=== PATIENT | female | born 1965 | race Caucasian/White ===

== ENCOUNTER → 2024-03-27 | Outpatient (REF) | payer MEDICAID, MEDICARE, SELFPAY ==
[2024-03-27 09:06] LABS: Absolute Lymphocyte Count 2.32 X10^3/uL (0.83-4.51); Absolute Neutrophil Count 4.8 X10^3/uL (2.0-7.7); Basophil# 0.04 X10^3/uL; Basophil% 0.5 % (0-1); Eosinophil# 0.13 X10^3/uL; Eosinophils% 1.7 % (0-5); Hematocrit 34.1 % (37-47); Hemoglobin 10.6 g/dL (12.0-15.0); Lymphocyte # 2.32 X10^3/ul (0.83-4.51); Lymphocyte % 29.8 % (19-41); Mean Corp Hgb Conc 31.1 g/dL (32-36); Mean Corpuscular Hgb 28.7 pg (27.0-32.0); Mean Corpuscular Volume 92.4 fL (81-99); Mean Platelet Vol. 9.6 fl (6.2-12.0); Monocyte# 0.49 X10^3/uL; Monocyte% 6.3 % (0-10); NRBC Flagged by Analyzer 0 % (0-5); Neutrophil # 4.77 X10^3/uL (2.7-7.7); Neutrophil % 61.3 % (47-70); Platelet Count 283 K/mm3 (150-450); RBC Distribution Width CV 13.1 % (11.6-14.6); RBC Distribution Width SD 44.1 fl (35.1-43.9); Red Blood Count 3.69 M/mm3 (4.2-5.4); White Blood Count 7.8 K/mm3 (4.4-11.0)
[2024-03-27 09:33] LABS: Anion Gap 4 (5-15); BUN 11 mg/dL (7-18); Calcium,Total 9.6 mg/dL (8.5-10.1); Chloride 107 mmol/L (98-107); Cholesterol 150 mg/dL (200); Creatinine, Serum 0.48 mg/dL (0.55-1.02); EST Glomerular Filtration Rate 141 mL/min (>60); Est Glom Filt Rate - Afr Amer 170 mL/min (>60); Glucose 96 mg/dL (74-106); High Density Lipoprotein 61 mg/dL; Magnesium 2.1 mg/dL (1.6-2.6); Potassium 3.8 mmol/L (3.5-5.1); Sodium Level 141 mmol/L (136-145); Triglycerides 127 mg/dL; Very Low Density Lipoprotein 25 mg/dL (5-40)
[2024-03-27 10:16] LABS: Hemoglobin A1c 5.4 % (3.8-5.6)
== END | disposition home or self-care (01) ==
LOC: OLS.SW 07:20
PROVIDERS: Visit Provider Internal Medicine
DX: H81.09 Meniere's disease, unspecified ear (principal); E03.9 Hypothyroidism, unspecified; I10 Essential (primary) hypertension
CPT/HCPCS: 36415; 80048; 80061; 83036; 83735; 84443; 85025

== ENCOUNTER → 2024-03-28 04:00 | Outpatient (REF) | payer MEDICARE, MEDICAID, SELFPAY ==
[2024-03-28 10:25] LABS: Vitamin B12 290 pg/mL (211-911); Vitamin D,25 Hydroxy 26.4 ng/mL
== END ==
LOC: OLS.SW 04:00
PROVIDERS: Referring Provider Internal Medicine; Visit Provider Internal Medicine
DX: I10 Essential (primary) hypertension (principal)
CPT/HCPCS: 36415; 82306; 82607

== ENCOUNTER → 2024-03-31 | Outpatient (REF) | payer MEDICAID, MEDICARE, SELFPAY ==
[2024-03-31 09:45] LABS: Ferritin 16 ng/mL (8-252); Iron 35 ug/dL (50-170)
== END | disposition home or self-care (01) ==
LOC: OLS.SW 05:00
PROVIDERS: Visit Provider Internal Medicine
DX: I10 Essential (primary) hypertension (principal); E78.5 Hyperlipidemia, unspecified
CPT/HCPCS: 36415; 82728; 83540

== ENCOUNTER → 2024-04-29 | Outpatient (CLI) | payer MEDICAID, MEDICARE, SELFPAY ==
--- NOTE | 2024-04-29 13:00 | MRI_ITS ---
PROCEDURE: SPINE CERVICAL W/WO CONTRAST REASON FOR EXAM: Cervical surgery. Pain. TECHNIQUE: Cervical spine MRI without and with intravenous gadolinium-based contrast. CONTRAST: 15 cc Clariscan COMPARISON: None. FINDINGS: There is anterior cervical spinal fusion from C5-C7 with anterior cervical spinal fusion plate and screws with associated susceptibility artifact. There is severe disc space narrowing with endplate spurring from C3-C5 and moderate disc space narrowing with endplate spurring at C7-T1. There is straightening of the cervical lordosis with mild reversal. There is a linear area of hyperintense T2/STIR signal within the central cervical spinal cord at the level of C6-C7 likely related to cervical myelomalacia. There is atrophy of the paraspinous musculature. No acute fracture or subluxation is present. There is a circumscribed nodule involving the left thyroid lobe measuring 8 mm. Individual levels: C2-3: Mild disc osteophyte complex and facet arthropathy with no significant central canal stenosis or neural foraminal narrowing. C3-4: Disc osteophyte complex results in flattening of the ventral thecal sac with moderate central canal stenosis. Facet/uncovertebral changes are identified with severe bilateral neural foraminal narrowing. C4-5: Disc osteophyte complex results in flattening of the ventral thecal sac with moderate central canal stenosis. Facet/uncovertebral changes are identified with mild bilateral neural foraminal narrowing. C5-6: Postsurgical changes. Mild posterior endplate spurring with mild central canal stenosis. No significant neural foraminal narrowing. C6-7: Postsurgical changes. No disc herniation, central canal stenosis, or significant neural foraminal narrowing. C7-T1: Mild disc osteophyte complex with no significant central canal stenosis. Mild bilateral neural foraminal narrowing is present. Postcontrast images: No suspicious contrast enhancement. MRI/Spine Cervical W/WO Contrast IMPRESSION: 1. Postsurgical changes from anterior cervical spinal fusion from C5-C7 with as sociated susceptibility artifact. There is mild central canal stenosis at C5-C6. 2. Multilevel degenerative disc disease and spondylosis with moderate central c anal stenosis from C3-C5 and varying degrees of neural foraminal narrowing which is on a severe basis at C3-C4. 3. Linear hyperintense signal within the central spinal cord at the level of C6 -C7 likely relates to cervical myelomalacia. 4. Nodule involving the left thyroid lobe measuring 8 mm. Recommend thyroid ult rasound on an outpatient basis. Reading Location: [facility]
--- NOTE | 2024-04-29 13:00 | MRI_ITS ---
PROCEDURE: MRA NECK WITHOUT CONTRAST REASON FOR EXAM: Memory loss; slurred speech. TECHNIQUE: Neck MRA using 2D and 3D Time of Flight technique and with intravenous gadolinium-based contrast. COMPARISON: None. FINDINGS: Flow: 2D Time of Flight images demonstrate antegrade carotid and vertebral artery flow. Carotids: The bilateral common carotid arteries are widely patent. Atherosclerosis of the bilateral internal carotid arteries. Right ICA stenosis (NASCET): 50 % Left ICA stenosis (NASCET): 75 % Vertebrals: No signal within the left vertebral artery which may represent occlusion. Normal right vertebral artery. Arch: Not fully visualized. MRI/MRA Neck without Contrast IMPRESSION: No signal within the left vertebral artery which may represent occlusion of unc lear chronicity. Atherosclerosis of the bilateral internal carotid arteries. Details above. Reading Location: [id number]
== END | disposition home or self-care (01) ==
PROVIDERS: PCP Internal Medicine
DX: C71.9 Malignant neoplasm of brain, unspecified (principal); R41.89 Other symptoms and signs involving cognitive functions and awareness; I65.29 Occlusion and stenosis of unspecified carotid artery; M84.48XA Pathological fracture, other site, initial encounter for fracture; Z91.041 Radiographic dye allergy status
CPT/HCPCS: 70547; 72156; A9575

== ENCOUNTER → 2024-08-07 05:00 | Outpatient (REF) | payer MEDICARE, MEDICAID, SELFPAY ==
[2024-08-07 08:22] LABS: Absolute Lymphocyte Count 2.33 X10^3/uL (0.83-4.51); Absolute Neutrophil Count 7.3 X10^3/uL (2.0-7.7); Basophil# 0.07 X10^3/uL; Basophil% 0.7 % (0-1); Eosinophil# 0.23 X10^3/uL; Eosinophils% 2.2 % (0-5); Hematocrit 35.3 % (37-47); Lymphocyte # 2.33 X10^3/ul (0.83-4.51); Mean Corp Hgb Conc 31.2 g/dL (32-36); Mean Corpuscular Volume 93.1 fL (81-99); Mean Platelet Vol. 9.6 fl (6.2-12.0); Monocyte# 0.66 X10^3/uL; Monocyte% 6.2 % (0-10); NRBC Flagged by Analyzer 0 % (0-5); Neutrophil # 7.25 X10^3/uL (2.7-7.7); Neutrophil % 68.6 % (47-70); Platelet Count 319 K/mm3 (150-450); RBC Distribution Width CV 13.1 % (11.6-14.6); RBC Distribution Width SD 44.4 fl (35.1-43.9); Red Blood Count 3.79 M/mm3 (4.2-5.4); White Blood Count 10.6 K/mm3 (4.4-11.0)
== END ==
LOC: OLS.SW 05:00
PROVIDERS: PCP Internal Medicine; Visit Provider Internal Medicine
DX: R41.0 Disorientation, unspecified (principal); I69.30 Unspecified sequelae of cerebral infarction; M54.2 Cervicalgia
CPT/HCPCS: 36415; 85025

== ENCOUNTER → 2024-08-08 | Outpatient (REF) | payer MEDICARE, MEDICAID, SELFPAY ==
[2024-08-08 07:45] LABS: Mucous, Urine 0 SEEN /hpf (<or=2+)
[2024-08-08 08:03] LABS: Color, Urine Yellow (Yellow); Glucose, Dipstick Normal (Normal); Ketone-Dipstick Negative (Negative); Leukocyte Esterase-Dipstick 500 /ul (Negative); Nitrite-Dipstick Negative (Negative); Occult Blood-Urine 150 /ul (Negative); Protein-Dipstick 100 mg/dl (Negative); Urine Bilirubin Dipstick Negative (Negative); Urine Clarity Turbid (Clear); Urine Urobilinogen Normal (Normal)
[2024-08-08 08:10] LABS: White Blood Cells >100 SEEN /hpf (0-5)
[2024-08-08 08:11] LABS: Bacteria 3+ /hpf (None Seen); Red Blood Cells-Urine 0-5 SEEN /hpf (0-5); Squamous Epithelial Cells - UA 0-5 SEEN /hpf (5-10)
== END ==
LOC: OLS.SW 05:00
PROVIDERS: PCP Internal Medicine; Visit Provider Family Medicine
DX: R32 Unspecified urinary incontinence (principal); R33.9 Retention of urine, unspecified
CPT/HCPCS: 81001; 87077; 87086; 87088; 87186

== ENCOUNTER → 2024-08-13 | Outpatient (REF) | payer MEDICARE, MEDICAID, SELFPAY ==
[2024-08-13 07:41] LABS: ALB/GLOB Ratio 1.2 RATIO (0.9-2.4); AST(SGOT) 14 U/L (<=31); Alanine Aminotransfer ALT/SGPT < 5 U/L (<=34); Albumin, Serum 3.3 g/dL (3.4-4.8); Alkaline Phosphatase 102 U/L (35-104); Anion Gap 9 (5-15); BUN 16 mg/dL (4-19); BUN/Creat Ratio 28.6 RATIO (10-20); Calcium,Total 9.8 mg/dL (7.6-11.0); Carbon Dioxide 26.6 mmol/L (21.0-32.0); Chloride 106 mmol/L (98-108); Creatinine, Serum 0.57 mg/dL (0.70-1.20); EST Glomerular Filtration Rate 104 (>60); Globulin 2.7 g/dL (2.2-4.2); Glucose 89 mg/dL (70-99); Potassium 3.7 mmol/L (3.3-5.1); Sodium Level 142 mmol/L (133-145); Total Bilirubin 0.17 mg/dL (0.00-1.30)
== END ==
LOC: OLS.SW 04:00
PROVIDERS: PCP Internal Medicine; Referring Provider Family Medicine; Visit Provider Family Medicine
DX: R33.9 Retention of urine, unspecified (principal); E53.8 Deficiency of other specified B group vitamins; M81.0 Age-related osteoporosis without current pathological fracture
CPT/HCPCS: 36415; 80053

== ENCOUNTER → 2024-08-19 05:00 | Outpatient (REF) | payer MEDICARE, MEDICAID, SELFPAY ==
[2024-08-19 07:36] LABS: Ammonia 32.6 umol/L (11-51)
== END ==
LOC: OLS.SW 05:00
PROVIDERS: PCP Internal Medicine; Visit Provider Family Medicine
DX: R41.0 Disorientation, unspecified (principal)
CPT/HCPCS: 36415; 82140

== ENCOUNTER → 2024-11-18 | Outpatient (REF) | payer MEDICARE, MEDICAID, SELFPAY ==
--- OUTSIDE RECORDS SUMMARY | 2024-11-18 04:13 | XMS RPT_ITS | CCD ---
Author Organization [facility] Care Team Providers Care Insurance Follow Up Representative Name Role Phone Sheets DOLeela Primary Care Provider [phone] SHEETSLEELA Primary Care Unavailable FERNANDO NIETO Referring Unavailable SHEETS, LEELA Mcclain Primary Care Unavailable FERNANDO NIETO Referring Unavailable Sheets DO, Leela Mcclain Primary Care Provider SHEETS, LEELA Mcclain Primary Care Unavailable SETH PILLAI Attending Unavailable SHEETS, LEELA Mcclain Attending Unavailable SHEETS, LEELA Mcclain Primary Care Unavailable SHEETS, LEELA Mcclain Attending Unavailable SHEETS, LEELA C Primary Care Unavailable FERNANDO NIETO Referring Unavailable SHEETS, LEELA C Primary Care Unavailable SHEETS, LEELA C Attending Unavailable SHEETS, LEELA C Primary Care Unavailable SHEETS, LEELA C Attending Unavailable SHEETS, LEELA C Primary Care Unavailable Sheets DO, Leela Mcclain Primary Care Provider Unavailable Primary Care Provider Unavailabl e Sheets DO, Leela Mcclain Primary Care Provider Dr. Josi Garcia MD Attending Provider Dr. Josi Zamora MD Referring Provider UnavailDr. Josi Harrell MD Primary Care Provider Unava ilable MINI DUFFY Attending Provider MINI DUFFY Referring Provider Jose WINTERS, Dr. Prater Attending Provider Unavailjoey Cantor MD, Dr. Floyd Attending Provider Unavail carmencita Cantor MD, Dr. Floyd Referring Provider Unavail able Everett Garcia Attending Unavailable Josi Garcia Primary Care Unavailable Josi Crawford Attending Unavailable Gudla, Josi Primary Care Unavailable KYLER, KAREN Attending Unavailable KYLER, KAREN Referring Unavailable Gudla OLS, Josi Attending Unavailable Gudla OLS, Josi Referring Unavailable KYLER, KAREN Referring Unavailable Gudla, Josi Primary Care Unavailable KYLER, KAREN Attending Unavailable Gudla OLS, Josi Attending Unavailable Gudla KUSH, Josi Attending Unavailable Everett Garcia Attending Unavailable Gudla, Josi Primary Care Unavailable Everett Garcia Attending Unavailable Everett Garcia Referring Unavailable Gudla, Josi Primary Care Unavailable DIOR ANGUIANO Attending Unavailable SPEARS-DUFFY, MINI Referring Unavaila ble SELF Referring Unavailable SPEARS-DUFFY, MINI Attending Unavaila ble SHEETSLEELA Primary Care Unavailable SPEARS-DUFFY, MINI Referring Unavaila ble SPEARS-DUFFY, MINI Referring Unavaila ble SPEARS-DUFFY, MINI Referring Unavaila ble SPEARS-DUFFY, MINI Referring Unavaila ble SPEARS-DUFFY, MINI Attending Unavaila ble SPEARS-DUFFY, MINI Attending Unavaila ble SHEETSLEELA Primary Care Unavailable SPEARS-DUFFY, MINI Referring Unavaila ble SPEARS-DUFFY, MINI Referring Unavaila ble SHEETSLEELA Primary Care Unavailable BINDU BURT Attending Unavailable SHEETSLEELA Primary Care Unavailable SPEARS-DUFFY, MINI Attending Unavaila ble SHEETSLEELA Primary Care Unavailable SPEARS-DUFFY, MINI Referring Unavaila ble LILLIE HORTON Attending Unavailable SPEARS-DUFFY, MINI Attending Unavaila ble SPEARS-DUFFY, MINI Referring Unavaila ble SPEARS-DUFFY, MINI Referring Unavaila ble SPEARS-DUFFY, MINI Attending Unavaila ble SPEARS-DUFFY, MINI Referring Unavaila ble Allergies Allergy Classification Reported Allergen(s) Allergy Type Date of Onset Reaction(s) Facility (20 sources) Latex; Translations: [LATEX] Drug Allergy 11-05-2015 Other: See Comments [facility] (20 sources) Methadone; Translations: [METHADONE] Drug Allergy 11-05-2015 Unknown [facility] (20 sources) Naproxen; Translations: [NAPROXEN] Drug Allergy 11-05-2015 Hives, Itching [facility] (20 sources) Iodinated Contrast Media; Translations: [IODINATED CONTRAST MEDIA] Drug Allergy 11-05-2015 Other: See Comments [facility] Medications Current Medications Medication Drug Class(es) Dates Sig (Normalized) Sig (Original) acetaminophen 650 mg rectal suppository (5 sources) take 650 mg rectal route every four hours as needed acetaminophen (TYLENOL) 650 mg suppository 650 mg by RECTAL route every 4 hours as needed. Active 120 actuat albuterol 0.1 mg/actuat / ipratropium bromide 0.02 mg/actuat inhalation spray (20 sources) Anticholinergic, beta2-Adrenergic Agonist take 20-100 ug by inhalation every six hours as needed ipratropium 20 mcg-albuterol 100 mcg (COMBIVENT RESPIMAT) 20-100 mcg/actuation inhaler Inhale 1 Puff as instructed every 6 hours as needed for wheezing/shortness of breath. Active aspirin 81 mg chewable tablet (20 sources) Platelet Aggregation Inhibitor, Nonsteroidal Anti-inflammatory Drug Start: 11-16-2016 take 1 tablet by mouth once daily aspirin 81 mg chewable tablet Take 1 tablet by mouth once daily. 90 tablet 3 11/16/2016 Active Comment on above: Take 1 tablet by juve once daily. atorvastatin 20 mg oral tablet (20 sources) HMG-CoA Reductase Inhibitor Start: 04-08-2021 End: 07-13-2022 take 1 tablet by mouth once daily atorvastatin (LIPITOR) 20 mg tablet Indications: Pure hypercholesterolemia Take 1 tablet by mouth once daily. 90 tablet 07/13/2022 Active Comment on above: Take 1 tablet by juve th once daily. carvedilol 3.125 mg oral tablet (20 sources) alpha-Adrenergic Angelica, beta-Adrenergic Angelica Start: 08-15-2021 End: 02-14-2022 take 1 tablet by mouth twice daily at mealtime carvedilol (COREG) 3.125 mg tablet Indications: Essential hypertension Take 1 tablet by mouth twice daily with meals. 180 tablet 1 02/14/2022 Active Start: 01-31-2021 take 1 tablet by juve th twice daily at mealtime carvedilol (COREG) 3.125 mg tablet Indications: Essential hypertension Take 1 tablet by mouth twice daily with meals. 180 tablet 1 01/31/2021 Active Comment on above: Take 1 tablet by juve th twice daily with meals. cholecalciferol, vitamin D3, (VITAMIN D3 PO) (5 sources) take 2000 [IU] by mouth once daily cholecalciferol, vitamin D3, (VITAMIN D3 PO) Take 2,000 Units by mouth once daily. Active cranberry fruit (CRANBERRY) 450 mg tab (20 sources) take 1 tablet by mouth once daily cranberry fruit (CRANBERRY) 450 mg tab Take 1 tablet by mouth once daily. Active diclofenac sodium 0.01 mg/mg topical gel (5 sources) Nonsteroidal Anti-inflammatory Drug apply 1 g topically four times daily diclofenac (VOLTAREN) 1 % topical gel Apply 1 g to affected area four times daily. Active ferrous sulfate 325 mg delayed release oral tablet (5 sources) take 1 tablet by mouth once daily ferrous sulfate 325 mg (65 mg iron) EC tablet Take 325 mg by mouth once daily. Active iv contrast (will be provided with radiology test) (12 sources) Start: End: inject 1 dose intravenously once iv contrast (will be provided with radiology test) Indications: Glioblastoma (HCC) MRI Brain Inject, intravenously, once for 1 dose.No IV access, insert saline lock prior to beginning of sedation, infusion, injection of imaging exam.Discontinue saline lock post exam. If Pt. has a central line or IVAD, may access for administration according to line specific nursing protocol.Once exam is complete flush line and de-access according to line specific nursing protocol in the MR contrast administration guidelines link 1 each 11/10/2024 11/11/2024 Active Start: 11-05-2024 End: 11-06-2024 inject 1 dose intravenously once iv contrast (will be provided with radiology test) MRI Brain Inject, intravenously, once for 1 dose.No IV access, insert saline lock prior to beginning of sedation, infusion, injection of imaging exam.Discontinue saline lock post exam. If Pt. has a central line or IVAD, may access for administration according to line specific nursing protocol.Once exam is complete flush line and de-access according to line specific nursing protocol in the MR contrast administration guidelines link 1 each 11/05/2024 11/06/2024 Start: 11-05-2024 End: 11-06-2024 inject 1 dose intravenously once iv contrast (will be provided with radiology test) MRI Brain Inject, intravenously, once for 1 dose.No IV access, insert saline lock prior to beginning of sedation, infusion, injection of imaging exam.Discontinue saline lock post exam. If Pt. has a central line or IVAD, may access for administration according to line specific nursing protocol.Once exam is complete flush line and de-access according to line specific nursing protocol in the MR contrast administration guidelines link 1 each 11/05/2024 11/06/2024 Active Start: 08-05-2024 End: 08-06-2024 inject 1 dose intravenously once iv contrast (will be provided with radiology test) Indications: Astrocytoma brain tumor (HCC) MRI Brain Inject, intravenously, once for 1 dose.No IV access, insert saline lock prior to beginning of sedation, infusion, injection of imaging exam.Discontinue saline lock post exam. If Pt. has a central line or IVAD, may access for administration according to line specific nursing protocol.Once exam is complete flush line and de-access according to line specific nursing protocol in the MR contrast administration guidelines link 1 each 08/05/2024 08/06/2024 Active Start: 05-28-2024 End: 05-29-2024 inject 1 dose intravenously once iv contrast (will be provided with radiology test) Indications: Anaplastic astrocytoma (HCC) MRI Brain Inject, intravenously, once for 1 dose.No IV access, insert saline lock prior to beginning of sedation, infusion, injection of imaging exam.Discontinue saline lock post exam. If Pt. has a central line or IVAD, may access for administration according to line specific nursing protocol.Once exam is complete flush line and de-access according to line specific nursing protocol in the MR contrast administration guidelines link 1 Each 05/28/2024 05/29/2024 Active Start: 03-04-2024 End: 03-05-2024 inject 1 dose intravenously once iv contrast (will be provided with radiology test) MRI Brain Inject, intravenously, once for 1 dose.No IV access, insert saline lock prior to beginning of sedation, infusion, injection of imaging exam.Discontinue saline lock post exam. If Pt. has a central line or IVAD, may access for administration according to line specific nursing protocol.Once exam is complete flush line and de-access according to line specific nursing protocol in the MR contrast administration guidelines link 1 Each 03/04/2024 03/05/2024 Active Start: 03-04-2024 End: 03-05-2024 iv contrast (will be provide d with radiology test) Indications: Allergy to intravenous contrast media , Anaplastic astrocytoma (HCC) , Mild cognitive impairment , Cognitive decline , Occlusion and stenosis of unspecified carotid artery , Pathological fracture, other site, initial encounter for fracture MRI CSP Inject, intravenously, once for 1 dose. No IV access, insert saline lock prior to the beginning of sedation, infusion, injection of imaging exam. Discontinue saline lock post exam. If Pt. has a central line or IVAD, may access for administration according to line specific nursing protocol. Once exam is complete flush line and de-access according to line specific nursing protocol in the MR contrast administration guidelines link. 1 Each 03/04/2024 03/05/2024 Active Start: 01-23-2024 End: 01-24-2024 inject 1 dose intravenously once iv contrast (will be provided with radiology test) Indications: Astrocytoma (HCC) MRI Brain Inject, intravenously, once for 1 dose.No IV access, insert saline lock prior to beginning of sedation, infusion, injection of imaging exam.Discontinue saline lock post exam. If Pt. has a central line or IVAD, may access for administration according to line specific nursing protocol.Once exam is complete flush line and de-access according to line specific nursing protocol in the MR contrast administration guidelines link 1 Each 01/23/2024 01/24/2024 Active linaclotide 0.072 mg oral capsule (20 sources) Guanylate Cyclase-C Agonist Start: 02-23-2022 take 1 capsule by mouth once daily LINZESS 72 mcg capsule Take 1 capsule by mouth once daily. 02/23/2022 Active Comment on above: Take 1 capsule by [facility] once daily. melatonin 5 mg oral tablet (20 sources) take 1 tablet by mouth once daily at bedtime melatonin 5 mg tablet Take 1 tablet by mouth daily at bedtime. Active methocarbamol 750 mg oral tablet (20 sources) Muscle Relaxant Start: 11-06-2024 End: 05-05-2025 take 1 tablet by mouth three times daily methocarbamol (ROBAXIN) 750 mg tablet Take 1 tablet by mouth three times a day. 90 tablet 5 11/06/2024 05/05/2025 Active End: 11-06-2024 take 1 tablet by mouth every eight hours as needed methocarbamol (ROBAXIN) 500 mg tablet Take 1 tablet by mouth three times a day as needed. 11/06/2024 Discontinued omeprazole 40 mg delayed release oral capsule (20 sources) Proton Pump Inhibitor Start: 05-10-2021 End: 05-22-2022 take 1 capsule by mouth once daily omeprazole (PRILOSEC) 40 mg capsule Indications: Heartburn Take 1 capsule by mouth once daily. 90 capsule 1 05/22/2022 Active Comment on above: Take 1 capsule by [facility] once daily. riboflavin 400 mg oral tablet (5 sources) Start: 11-05-2024 take 1 tablet by mouth once daily riboflavin, vitamin B2, 400 mg tab Take 1 tablet by mouth once daily. 30 tablet 2 11/05/2024 Active sertraline 50 mg oral tablet (20 sources) Serotonin Reuptake Inhibitor Start: 01-02-2024 take 1 tablet by mouth once daily sertraline (ZOLOFT) 50 mg tablet Take 1 tablet by mouth once daily. 01/02/2024 Active Start: [facility]-01-[facility]24 [facility] (Z[facility]OFT) 25 mg tablet Take 1 tablet by mouth once daily. 01/01/2024 Active traMADol hydrochloride 50 mg oral tablet (20 sources) Opioid Agonist Start: 01-24-2024 End: 07-22-2024 take 1 tablet by mouth twice daily traMADol (ULTRAM) 50 mg tablet Indications: Chronic cervical pain Take 1 tablet by mouth two times a day for 180 days. 60 tablet 5 01/24/2024 07/22/2024 Active Start: 11-14-2021 End: 01-20-2024 take 1 tablet by mouth twice daily traMADol (ULTRAM) 50 mg tablet Indications: Osteoarthritis of multiple joints, unspecified osteoarthritis type , Chronic neck pain Take 1 tablet by mouth two times a day for 180 days. 60 tablet 5 07/24/2023 01/20/2024 Start: 06-09-2021 End: 11-11-2021 take 1 tablet by mouth twice daily traMADol (ULTRAM) 50 mg tablet Indications: Osteoarthritis of multiple joints, unspecified osteoarthritis type , Chronic neck pain Take 1 tablet by mouth twice daily for 30 days. 60 tablet 0 10/11/2021 11/11/2021 Discontinued Comment on above: Take 1 tablet by juve twice daily for 30 days. Take 1 tablet by juve twice daily for 180 days. Take 1 tablet by juve two times a day for 180 days. vitamin b12 1 mg oral capsule (5 sources) Vitamin B12 take 1 capsule by mouth once daily cyanocobalamin, vitamin B-12, 1,000 mcg cap Take 1,000 mg by mouth once daily. Active Completed/Discontinued Medications Medication Drug Class(es) Dates Sig (Normalized) Sig (Original) dicyclomine hydrochloride 20 mg oral tablet (20 sources) Anticholinergic Start: 2 End: 5 take 1 tablet by mouth at mealtime dicyclomine (BENTYL) 20 mg tablet Take 1 tablet by mouth w MEALS. 02/23/2022 11/06/2024 Discontinued (Discontinued by another Health Care Provider) Comment on above: Take 1 tablet by juve w MEALS. diphenhydrAMINE hydrochloride 50 mg oral tablet (20 sources) Histamine-1 Receptor Antagonist Start: 4 End: 5 take 1 tablet intravenously every hour diphenhydrAMINE HCL 50 mg tablet Indications: Allergy to intravenous contrast media , Anaplastic astrocytoma (HCC) , Mild cognitive impairment , Cognitive decline Medication, to prevent allergic reaction, to MR contrast (gadolinium]. Take 50 mg, 1 (ONE) hour prior to MRI 5 tablet 11 05/10/2024 11/06/2024 Discontinued (Discontinued by another Health Care Provider) estradiol 0.1 mg/ml vaginal cream (20 sources) Estrogen Start: 7 End: 3 ESTRACE 0.01 % (0.1 mg/gram) vaginal cream Indications: Atrophic vaginitis Use 1 g vaginally twice a week. 1 Tube 3 08/11/2016 04/12/2022 Discontinued Comment on above: Use 1 g vaginally tw ice a week. estrogens, conjugated (shelter) 0.625 mg/ml vaginal cream (20 sources) Estrogen Start: 3 End: 5 conjugated estrogens (PREMARIN) vaginal cream Indications: Atrophic vaginitis Use 0.5 g vaginally two times a week. 30 g 2 04/12/2022 11/06/2024 Discontinued (Discontinued by another Health Care Provider) Comment on above: Use 0.5 g vaginally two times a week. 24 hr mirabegron 50 mg extended release oral tablet (20 sources) beta3-Adrenergic Agonist Start: End: take 1 tablet by mouth once daily mirabegron (MYRBETRIQ) 50 mg Tb24 Indications: Overactive bladder Take 1 tablet by mouth once daily. 90 tablet 3 04/12/2022 11/06/2024 Discontinued (Discontinued by another Health Care Provider) Start: 03-21-2021 End: 04-12-2022 take 1 tablet by mouth once daily mirabegron (MYRBETRIQ) 25 mg Tb24 Indications: Overactive bladder Take 1 tablet by mouth once daily. 90 tablet 1 12/29/2021 04/12/2022 Discontinued Comment on above: Take 1 tablet by [facility] once daily. Multivitamin capsule (20 sources) End: 11-06-2024 take 1 capsule by mouth once daily Multivitamin capsule Take 1 capsule by mouth once daily. 11/06/2024 Discontinued (Discontinued by another Health Care Provider) take 1 capsule by mouth once michell ly Multivitamin capsule Take 1 capsule by mouth once daily. Active take 1 capsule by mouth once michell ly Multivitamin capsule Take 1 capsule by mouth once daily. 0 Active Comment on above: Take 1 capsule by [facility] once daily. nitrofurantoin, macrocrystals 25 mg / nitrofurantoin, monohydrate 75 mg oral capsule (3 sources) Nitrofuran Antibacterial Start: End: take 1 capsule by mouth twice daily nitrofurantoin monohydrate and macrocrystal (MACROBID) 100 mg capsule Take 1 capsule by mouth twice daily for 7 days. 14 capsule 0 03/20/2022 03/27/2022 Comment on above: Take 1 capsule by [facility] twice daily for 7 days. ondansetron 4 mg disintegrating oral tablet (20 sources) Serotonin-3 Receptor Antagonist Start: End: ondansetron orally disintegrating (ZOFRAN ODT) 4 mg disintegrating tablet Take 1 tablet by mouth as needed. 02/23/2022 11/06/2024 Discontinued (Discontinued by another Health Care Provider) Comment on above: Take 1 tablet by juve as needed. oxyCODONE hydrochloride 5 mg oral tablet (14 sources) Opioid Agonist Start: End: take 1 tablet by mouth twice daily as needed oxyCODONE IR (ROXICODONE) 5 mg immediate release tablet Indications: Chronic cervical pain Take 0.5-1 tablets by mouth twice daily as needed for pain. 60 tablet 0 05/25/2022 08/28/2022 Discontinued (Course of therapy completed) Comment on above: Take 0.5-1 tablets b y mouth twice daily as needed for pain. predniSONE 50 mg oral tablet (20 sources) Start: End: predniSONE (DELTASONE) 50 mg Indications: Allergy to intravenous contrast media , Anaplastic astrocytoma (HCC) , Mild cognitive impairment , Cognitive decline Take this medication, every 6 hours, for 3 doses for prevention of contrast MR (gadolinium] allergy. Take 50 mg, 13 hours, then 7 hours, then 1 hour, prior to the MRI 3 tablet 11 05/10/2024 11/06/2024 Discontinued (Discontinued by another Health Care Provider) Problems Active Problems Problem Classification Problem Date Documented Da te Episodic/Chronic Acute cerebrovascular disease (5 sources) Cerebral infarction; Translations: [Cerebral infarction due to unspecified occlusion or stenosis of left middle cerebral artery] 05-10-2024 Chronic Adjustment disorders (20 sources) Grief finding; Translations: [Adjustment disorder with depressed mood] Onset: 05-25-2022 05-25-2022 Chronic Cancer of brain and nervous system (20 sources) Anaplastic astrocytoma of central nervous system; Translations: [Malignant neoplasm of brain, unspecified] Onset: 02-28-2024 01-21-2024 Chronic Conditions associated with dizziness or vertigo (1 source) Meniere's disease, unspecified ear; Translations: [Meniere's disease, unspecified ear] Onset: 04-21-2024 Chronic Deficiency and other anemia (1 source) Vitamin B12 deficiency anemia, unspecified; Translations: [Vitamin B12 deficiency anemia, unspecified] Onset: 08-27-2024 Episodic Diseases of white blood cells (1 source) Leukocytosis; Translations: [Elevated white blood cell count, unspecified] 11-06-2023 Chronic Disorders of lipid metabolism (20 sources) Dyslipidemia; Translations: [Hyperlipidemia, unspecified] Onset: 05-05-2024 12-21-2015 Chronic E Codes: Fall (2 sources) Fall; Translations: [Unspecified fall, initial encounter] 01-14-2024 Episodic Essential hypertension (20 sources) Essential hypertension; Translations: [Essential (primary) hypertension] Onset: 12-21-2015 12-21-2015 Chronic Genitourinary congenital anomalies (20 sources) Pelvic kidney; 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] Onset: 03-21-2022 03-21-2022 Chronic Genitourinary symptoms and ill-defined conditions (20 sources) Mixed urinary incontinence; Translations: [Mixed incontinence] Onset: 08-27-2024 12-21-2015 Chronic Genitourinary symptoms and ill-defined conditions (6 sources) Retention of urine; Translations: [Retention of urine, unspecified] Onset: 03-20-2022 Episodic Immunizations and screening for infectious disease (2 sources) Patient encounter status; Translations: [Encounter for immunization] Onset: 05-25-2022 Episodic Late effects of cerebrovascular disease (1 source) Unspecified sequelae of cerebral infarction; Translations: [Unspecified sequelae of cerebral infarction] Onset: 08-27-2024 Chronic Menopausal disorders (1 source) Atrophic vaginitis; Translations: [Postmenopausal atrophic vaginitis] Chronic Mycoses (2 sources) Pain in toe; Translations: [Tinea unguium] Episodic Neoplasms of unspecified nature or uncertain behavior (1 source) Neoplasm of brain; Translations: [Neoplasm of unspecified behavior of brain] 05-07-2024 Chronic Occlusion or stenosis of precerebral arteries (10 sources) Carotid artery occlusion; Translations: [Occlusion and stenosis of unspecified carotid artery] Onset: 05-26-2024 03-04-2024 Chronic Osteoarthritis (20 sources) Osteoarthritis of multiple joints ; Translations: [Polyosteoarthritis, unspecified] Onset: 03-22-2021 03-22-2021 Chronic Other aftercare (7 sources) Long-term current use of aspirin; 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] Episodic Other circulatory disease (1 source) History of cerebrovascular accident; Translations: [Personal history of transient ischemic attack (TIA), and cerebral infarction without residual deficits] 11-06-2024 Episodic Other connective tissue disease (2 sources) Muscle spasticity present; Translations: [Other muscle spasm] 06-18-2024 Episodic Other connective tissue disease (7 sources) Spasticity; Translations: [Cramp and spasm] 08-02-2024 Episodic Other connective tissue disease (1 source) Cramp and spasm; Translations: [Spasticity] Onset: 11-06-2024 Episodic Other diseases of bladder and urethra (4 sources) Overactive bladder; Translations: [Overactive bladder] Chronic Other gastrointestinal disorders (20 sources) Constipation; Translations: [Constipation, unspecified] 12-21-2015 Episodic Other gastrointestinal disorders (2 sources) Heartburn; Translations: [Heartburn] Episodic Other hereditary and degenerative nervous system conditions (9 sources) Impaired cognition; Translations: [Mild cognitive impairment, so stated] 01-21-2024 Chronic Other hereditary and degenerative nervous system conditions (1 source) Mild cognitive impairment, so stated; Translations: [Mild cognitive impairment] Onset: 05-26-2024 Chronic Other nervous system disorders (3 sources) Other chronic pain; Translations: [Chronic cervical pain] Onset: 02-24-2022 Chronic Other nervous system disorders (1 source) Lesion of brain; Translations: [Disorder of brain, unspecified] 01-08-2024 Chronic Other nervous system disorders (20 sources) Abnormal gait; Translations: [Unspecified abnormalities of gait and mobility] 12-21-2015 Episodic Other nervous system disorders (20 sources) Impaired cognition; Translations: [Other symptoms and signs involving cognitive functions and awareness] 01-21-2024 Episodic Other non-traumatic joint disorders (20 sources) Multiple joint pain; Translations: [Pain in unspecified joint] 12-21-2015 Episodic Other non-traumatic joint disorders (2 sources) Hip pain; Translations: [Pain in left hip] 08-28-2023 Episodic Other nutritional; endocrine; and metabolic disorders (4 sources) Obese class I; Translations: [Obesity, unspecified] Onset: 05-07-2018 05-07-2018 Chronic Other skin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 unchanged confluent T2/FLAIR hyperintensity in the right greater left frontal lobes as well as the genu of the corpus callosum. There is no abnormal enhancement in the resection cavity or elsewhere in the brain. There is no mass effect, midline shift or herniation. No elevated cerebral blood volume on the perfusion sequence to suggest neovascularity. Chronic Change: Scattered punctate foci of increased T2 and FLAIR signal are noted in the supratentorial white matter which is a nonspecific finding, but likely represents minimal chronic microvascular ischemia. There is unchanged small focal encephalomalacia in the dorsal left thalamus, likely sequelae of prior infarction. Parenchyma: No significant volume loss for age. The brain parenchyma is otherwise within normal limits of signal intensity and morphology. Ventricles: There is ex vacuo dilation of the frontal horns of the lateral ventricles. Otherwise unchanged caliber and morphology. Skull Base: Hypothalamic and pituitary region are grossly normal. Craniocervical junction is normal. No significant marrow replacement process. Vasculature: Major intracranial arterial structures, and dural venous sinuses show typical flow void, suggesting patency by spin echo criteria. Other: The visualized paranasal sinuses and mastoid air cells are clear. The orbits and extracranial soft tissues are unremarkable. IMPRESSION: No evidence of new or progressive disease. Laundry Aide: MAGUI Transcribe Date/Time: Nov 04 2024 9:55A Dictated by : MICHELLE RAYMOND MD This examination was interpreted and the report reviewed and electronically signed by: MICHELLE RAYMOND MD on Nov 04 2024 10:08AM EST [id number] Normal [facility] 10-28-2024 CNPN Telephone (NSCAMN) DIOR CARVAJAL ([id number]) 1965 F Date Time Provider Department 10/28/24 [facility] During your visit today, we recorded the following information about you: Marc Pina, RN 10/28/2024 11:09 AM Signed Called patient's facility, [facility], [place], to review upcoming MRI appointments. Spoke with patient's nurse and informed her of MRI appt and follow up appointment with Dr. Spaers next week. Also discussed need for pre-MRI meds, prednisone and benadryl. She will let their provider know. Office number provided in case they have questions. 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 Take 50 mg, 13 hours, then 7 hours, then 1 hour, prior to the MRI - diphenhydrAMINE HCL 50 mg tablet Medication, to prevent allergic reaction, to MR contrast (gadolinium]. Take 50 mg, 1 (ONE) hour prior to MRI - sertraline (ZOLOFT) 50 mg tablet Take 1 tablet by mouth once daily. - sertraline (ZOLOFT) 25 mg tablet Take 1 tablet by mouth once daily. - cranberry fruit (CRANBERRY) 450 mg tab Take 1 tablet by mouth once daily. - melatonin 5 mg tablet Take 1 tablet by mouth daily at bedtime. - methocarbamol (ROBAXIN) 500 mg tablet Take 1 tablet by mouth three times a day as needed. - ipratropium 20 mcg-albuterol 100 mcg (COMBIVENT RESPIMAT) 20-100 mcg/actuation inhaler Inhale 1 Puff as instructed every 6 hours as needed for wheezing/shortness of breath. - atorvastatin (LIPITOR) 20 mg tablet Take 1 tablet by mouth once daily. - omeprazole (PRILOSEC) 40 mg capsule Take 1 capsule by mouth once daily. - mirabegron (MYRBETRIQ) 50 mg Tb24 Take 1 tablet by mouth once daily. - conjugated estrogens (PREMARIN) vaginal cream Use 0.5 g vaginally two times a week. - LINZESS 72 mcg capsule Take 1 capsule by mouth once daily. - dicyclomine (BENTYL) 20 mg tablet Take 1 tablet by mouth w MEALS. - ondansetron orally disintegrating (ZOFRAN ODT) 4 mg disintegrating tablet Take 1 tablet by mouth as needed. - carvedilol (COREG) 3.125 mg tablet Take 1 tablet by mouth twice daily with meals. - Multivitamin capsule Take 1 capsule by mouth once daily. - aspirin 81 mg chewable tablet Take 1 tablet by mouth once daily. 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, [address] Venous blood ammonia measure mentOrdered By: Everett Cantor on 08-19-2024 Ammonia (P) [Moles/Vol] 32.6 umol/L [facility] Anion gap in Serum or Plasma Ordered By: Everett Cantor on 08-13-2024 Anion gap [Moles/Vol] 9 mmol/L 08-07 [facility] BUN/creatinine ratioOrdered By: Everett Cantor on 08-13-2024 Urea nitrogen/Creatinine [Mass ratio] 28.6 mg/mg High 01-12 [facility] Bilirubin, totalOrdered By: Everett Cantor on 08-13-2024 Bilirubin [Mass/Vol] 0.17 mg/dL 0.00-1.30 [facility] Carbon dioxide, total [Moles /volume] in Central venous bloodOrdered By: Everett Cantor on 08-13-2024 CO2 [Moles/Vol] 26.6 mmol/L 21.0-32.0 [facility] Chloride assayOrdered By: Caesar Cantor on 08-13-2024 Chloride [Moles/Vol] 106 mmol/L 98-108 [facility] Comprehensive Metabolic Prof ilon 08-13-2024 Albumin [Mass/Vol] 3.3 g/dL Low 3.4-4.[address] [facility] Comment on above: Order Comment: 510.1 Performed By: #### L 500.4050 #### [facility] [address] [place], [address] Albumin/Globulin [Mass ratio] 1.2 {ratio} Normal 0.9-2.4 [facility] Comment on above: Order Comment: 510.1 Performed By: #### L [id number] #### [facility] [address] [place], [address] ALK PHOS 102 U/L Normal 35-104 [facility] Comment on above: Order Comment: 510.1 Performed By: #### L [id number] #### [facility] [address] [place], [address] ALT [Catalytic activity/Vol] U/L Normal <=34 [facility] Comment on above: Order Comment: 510.1 Performed By: #### L [id number] #### [facility] [address] [place], [address] AST [Catalytic activity/Vol] 14 U/L Normal <=31 [facility] Comment on above: Order Comment: 510.1 Performed By: #### L [id number] #### [facility] [address] [place], [address] Bilirubin [Mass/Vol] 0.17 mg/dL Normal 0.00-1.30 [facility] Comment on above: Order Comment: 510.1 Performed By: #### L [id number] #### [facility] [address] [place], [address] BUN/CRE 28.6 RATIO High 10-20 [facility] Comment on above: Order Comment: 510.1 Performed By: #### L [id number] #### [facility] [address] [place], [address] Calcium [Mass/Vol] 9.8 mg/dL Normal 7.6-11.[address] [facility] Comment on above: Order Comment: 510.1 Performed By: #### L [id number] #### [facility] [address] [place], [address] Chloride [Moles/Vol] 106 mmol/L Normal 98-108 [facility] Comment on above: Order Comment: 510.1 Performed By: #### L [id number] #### [facility] [address] [place], [address] CO2 [Moles/Vol] 26.6 mmol/L Normal 21.0-32.0 [facility] Comment on above: Order Comment: 510.1 Performed By: #### L [id number] #### [facility] [address] [place], [address] Creatinine [Mass/Vol] 0.57 mg/dL Low 0.70-1.20 [facility] Comment on above: Order Comment: 510.1 Performed By: #### L [id number] #### [facility] [address] [place], [address] GAP 9 Normal 5-15 [facility] Comment on above: Order Comment: 510.1 Performed By: #### L [id number] #### [facility] [address] [place], [address] GFR/1.73 sq M.predicted among non-blacks MDRD (S/P/Bld) [Vol rate/Area] 104 mL/min/{1.73_m2} Normal >60 [facility] Comment on above: Order Comment: 510.1 Result Comment: mL/m in/1.73m2 CKD-EPI Creatinine Equation (2020) Performed By: #### L [id number] #### [facility] [address] [place], [address] Globulin (S) [Mass/Vol] 2.7 g/dL Normal 2.2-4.2 [facility] Comment on above: Order Comment: 510.1 Performed By: #### L [id number] #### [facility] [address] [place], [address] Glucose [Mass/Vol] 89 mg/dL Normal 70-[address] [facility] Comment on above: Order Comment: 510.1 Performed By: #### L [id number] #### [facility] [address] [place], [address] Potassium [Moles/Vol] 3.7 mmol/L Normal 3.3-5.1 [facility] Comment on above: Order Comment: 510.1 Performed By: #### L [id number] #### [facility] [address] [place], [address] Sodium [Moles/Vol] 142 mmol/L Normal 133-[address] [facility] Comment on above: Order Comment: 510.1 Performed By: #### L [id number] #### [facility] [address] [place], [address] T PROT 6.0 g/dL Normal 5.9-8.4 [facility] Comment on above: Order Comment: 510.1 Performed By: #### L [id number] #### [facility] [address] [place], [address] Urea nitrogen [Mass/Vol] 16 mg/dL Normal 4-19 [facility] Comment on above: Order Comment: 510.1 Performed By: #### L [id number] #### [facility] [place], [address] Glomerular filtration rate ( GFR) estimation/1.73 sq m using serum, plasma, or whole bOrdered By: Everett Cantor on 08-13-2024 GFR/1.73 sq M.predicted among non-blacks MDRD (S/P/Bld) [Vol rate/Area] 104 mL/min/{1.73_m2} >60 [facility] Comment on above: mL/min/1.73m2 CKD-EP I Creatinine Equation (2020) Laboratory - Chemistry and C hemistry - challengeOrdered By: Everett Cantor on 08-13-2024 AST [Catalytic activity/Vol] 14 U/L <32 [facility] Potassium measurement (mass/ volume)Ordered By: Everett Cantor on 08-13-2024 Potassium (Unsp spec) [Mass/Vol] 3.7 mmol/L 3.3-5.1 [facility] Serum creatinine measurement (mass/volume)Ordered By: Everett Cantor on 08-13-2024 Creatinine [Mass/Vol] 0.57 mg/dL Low 0.70-1.20 [facility] Serum globulin measurementOr dered By: Everett Cantor on 08-13-2024 Globulin (S) [Mass/Vol] 2.7 g/dL 2.2-4.2 [facility] Serum glucose measurement (m ass/volume)Ordered By: Everett Cantor on 08-13-2024 Glucose [Mass/Vol] 89 mg/dL 70-[address] [facility] Serum or plasma alanine tim otransferase (ALT) measurementOrdered By: Everett Cantor on 08-13-2024 ALT [Catalytic activity/Vol] U/L <35 [facility] Serum or plasma albumin riky urement (mass/volume)Ordered By: Everett Cantor on 08-13-2024 Albumin [Mass/Vol] 3.3 g/dL Low 3.4-4.[address] [facility] Serum or plasma albumin/glob ulin mass ratioOrdered By: Everett Cantor on 08-13-2024 Albumin/Globulin [Mass ratio] 1.2 {ratio} 0.9-2.4 [facility] Serum or plasma alkaline ivan sphatase measurementOrdered By: Everett Cantor on 08-13-2024 ALP [Catalytic activity/Vol] 102 U/L 35-104 [facility] Serum or plasma calcium riky urement (mass/volume)Ordered By: Everett Cantor on 08-13-2024 Calcium [Mass/Vol] 9.8 mg/dL 7.6-11.[address] [facility] Serum or plasma urea nitroge n measurement (mass/volume)Ordered By: Everett Cantor on 08-13-2024 Urea nitrogen [Mass/Vol] 16 mg/dL 4-19 [facility] Sodium levelOrdered By: Luis t Devaughn on 08-13-2024 Sodium [Moles/Vol] 142 mmol/L 133-[address] [facility] Total proteinOrdered By: Alea Cantor on 08-13-2024 Protein [Mass/Vol] 6.0 g/dL 5.9-8.[address] [facility] Urine Cultureon 08-10-2024 URC 510-1 Proteus mirabilis [place] Count 80,000-100,000 Proteus mirabilis: REACTION Ampicillin Islt MIRTHA <=2 Ampicillin+Sulbac Islt MIRTHA <=2 S Cefepime Islt MIRTHA <=0.12 S cefTRIAXone Islt MIRTHA <=0.25 S Ciprofloxacin Islt MIRTHA <=0.06 S Gentamicin Islt MIRTHA <=1 S levoFLOXacin Islt MIRTHA <=0.12 S Meropenem Islt MIRTHA 0.5 S Nitrofurantoin Islt MIRTHA 128 R Pip+Tazo Islt MIRTHA <=4 S TMP SMX Islt MIRTHA <=20 S Normal [facility] Comment on above: Performed By: #### L 400.0001, M100.2200 #### [facility] [address] [place] [address], [address] Bilirubin Test strip Ql (U)O rdered By: Everett Cantor on 08-08-2024 Bilirubin Ql (U) Negative Negative [facility] Ketones Test strip Ql (U)Ord ered By: Everett Cantor on 08-08-2024 Ketones Ql (U) Negative Negative [facility] Microscopic analysis of urin e for red blood cells (RBC)Ordered By: Everett Cantor on 08-08-2024 Microscopic analysis of urine for red blood cells (RBC) 0-5 SEEN /hpf 0-5 [facility] Mucus LM Ql (Urine sed)Order ed By: Everett Cantor on 08-08-2024 Mucus Ql (Urine sed) 0 SEEN /hpf [facility] Nitrite Test strip Ql (U)Ord ered By: Everett Cantor on 08-08-2024 Nitrite Ql (U) Negative Negative [facility] Protein Test strip Ql (U)Ord ered By: Everett Cantor on 08-08-2024 Protein Ql (U) 100 mg/dl High Negative [facility] Squamous epithelial cells de tection in urine sediment by light microscopyOrdered By: Everett Cantor on 08-08-2024 Epithelial cells.squamous LM Ql (Urine sed) 0-5 SEEN /hpf 5-10 [facility] Urinalysis, Completeon 08-08 BACTERIA 3+ /hpf Normal None Seen [facility] Comment on above: Order Comment: 510-1 CLEAN CATCH Performed By: #### L 400.0001, M100.2200 #### [facility] [address] [place], [address] EPI,SQUAMOUS 0-5 SEEN Normal 5-10 [facility] Comment on above: Order Comment: 510-1 CLEAN CATCH Performed By: #### L 400.0001, M100.2200 #### [facility] [address] [place], [address] RBC 0-5 SEEN Normal 0-5 [facility] Comment on above: Order Comment: 510-1 CLEAN CATCH Performed By: #### L 400.0001, M100.2200 #### [facility] [address] [place], [address] WBC >100 SEEN Normal 0-5 [facility] Comment on above: Order Comment: 510-1 CLEAN CATCH Performed By: #### L 400.0001, M100.2200 #### [facility] [address] [place], [address] Mucus Ql (Urine sed) 0 SEEN Normal [facility] Comment on above: Order Comment: 510-1 CLEAN CATCH Performed By: #### L 400.0001, M100.2200 #### [facility] [address] [place], [address] Urine clarityOrdered By: Alea Cantor on 08-08-2024 Clarity (U) Turbid Clear [facility] Urine color determinationOrd ered By: Everett Cantor on 08-08-2024 Color (U) Yellow Yellow [facility] Urine cultureOrdered By: Alea Cantor on 08-08-2024 Bacteria identified Cx Nom (U) Proteus mirabilis Abnormal [facility] Urine glucose detectionOrder ed By: Everett Cantor on 08-08-2024 Glucose Ql (U) Normal mg/dl Normal [facility] Urine leukocyte esterase det ection by dipstickOrdered By: Everett Cantor on 08-08-2024 Leukocyte esterase Test strip Ql (U) 500 /ul High Negative [facility] Urine pHOrdered By: Everett rodney on 08-08-2024 pH (U) 7.0 [pH] 5.0 - 8.0 [facility] Urine sediment bacteria coun t by microscopy (number/high power field)Ordered By: Everett Cantor on 08-08-2024 Bacteria LM.HPF (Urine sed) [#/Area] 3 /[HPF] None Seen [facility] Urine specific gravity measu rementOrdered By: Everett Cantor on 08-08-2024 Specific gravity (U) [Rel density] 1.010 1.002-1.030 [facility] Urine urobilinogen measureme ntOrdered By: Everett Cantor on 08-08-2024 Urobilinogen Ql (U) Normal mg/dl Normal [facility] White blood cell countOrdere d By: Everett Cantor on 08-08-2024 White blood cell count >100 SEEN /hpf 0-5 [facility] Absolute lymphocyte countOrd ered By: Josi Garcia on 08-07-2024 Lymphocytes Auto (Unsp spec) [#/Vol] 2.33 10*3/uL 0.83-4.51 [facility] Absolute neutrophil countOrd ered By: Josi Garcia on 08-07-2024 Neutrophils (Bld) [#/Vol] 7.3 10*3/uL 2.0-7.7 [facility] Automated lymphocyte count a s percentage of total leukocytesOrdered By: Josi Garcia on 08-07-2024 Lymphocytes/100 WBC Auto (Unsp spec) 22.0 % 19-41 [facility] Basophil percentageOrdered B y: Josi Garcia on 08-07-2024 Basophils/100 WBC (Bld) 0.7 % 0-1 [facility] CBC W/Diff, Automatedon 07-24-2024 Absolute Lymph 2.33 X10 3/uL Normal 0.83-4.51 [facility] Comment on above: Order Comment: 510-1 Performed By: #### L 100.0100 #### [facility] [address] [place], [address] Absolute Neut 7.3 X10 3/uL Normal 2.0-7.7 [facility] Comment on above: Order Comment: 510-1 Performed By: #### L 100.0100 #### [facility] [address] [place], [address] Basophils/100 WBC (Bld) 0.7 % Normal 0-1 [facility] Comment on above: Order Comment: 510-1 Performed By: #### L 100.0100 #### [facility] [address] [place], [address] Eosinophils/100 WBC (Bld) 2.2 % Normal 0-5 [facility] Comment on above: Order Comment: 510-1 Performed By: #### L 100.0100 #### [facility] [address] [place], [address] Erythrocyte distribution width (RBC) [Ratio] 13.1 % Normal 11.6-14.6 [facility] Comment on above: Order Comment: 510-1 Performed By: #### L 100.0100 #### [facility] [address] [place], [address] Hematocrit (Bld) [Volume fraction] 35.3 % Low 37-47 [facility] Comment on above: Order Comment: 510-1 Performed By: #### L 100.0100 #### [facility] [address] [place], [address] Hemoglobin (Bld) [Mass/Vol] 11.0 g/dL Low 12.0-15.0 [facility] Comment on above: Order Comment: 510-1 Performed By: #### L 100.0100 #### [facility] [address] [place], [address] IG% 0.300 Normal 0.0-0.9 [facility] Comment on above: Order Comment: 510-1 Result Comment: IG% - Immature Granulocytes (promyelocytes, myelocytes and metamyelocytes) > 1% indicates that a LEFT SHIFT is Present. Performed By: #### L 100.0100 #### [facility] [address] [place], [address] Lymphocytes/100 WBC (Bld) 22.0 % Normal 19-41 [facility] Comment on above: Order Comment: 510-1 Performed By: #### L 100.0100 #### [facility] [address] [place], [address] MCH (RBC) [Entitic mass] 29.0 pg Normal 27.0-32.0 [facility] Comment on above: Order Comment: 510-1 Performed By: #### L 100.0100 #### [facility] [address] [place], [address] MCHC (RBC) [Mass/Vol] 31.2 g/dL Low 32-36 [facility] Comment on above: Order Comment: 510-1 Performed By: #### L 100.0100 #### [facility] [address] [place], [address] MCV (RBC) [Entitic vol] 93.1 fL Normal 81-99 [facility] Comment on above: Order Comment: 510-1 Performed By: #### L 100.0100 #### [facility] [address] [place], [address] Monocytes/100 WBC (Bld) 6.2 % Normal 0-10 [facility] Comment on above: Order Comment: 510-1 Performed By: #### L 100.0100 #### [facility] [address] [place], [address] Neutrophils/100 WBC (Bld) 68.6 % Normal 47-70 [facility] Comment on above: Order Comment: 510-1 Performed By: #### L 100.0100 #### [facility] [address] [place], [address] Nucleated RBC (Bld) [#/Vol] 0 10*3/uL Normal 0-5 [facility] Comment on above: Order Comment: 510-1 Performed By: #### L 100.0100 #### [facility] [address] [place], [address] Platelet mean volume (Bld) [Entitic vol] 9.6 fL Normal 6.2-12.0 [facility] Comment on above: Order Comment: 510-1 Performed By: #### L 100.0100 #### [facility] [address] [place], [address] Platelets (Bld) [#/Vol] 319 10*3/uL Normal 150-450 [facility] Comment on above: Order Comment: 510-1 Performed By: #### L 100.0100 #### [facility] [address] [place], [address] RBC (Bld) [#/Vol] 3.79 10*6/uL Low 4.2-5.4 [facility] Comment on above: Order Comment: 510-1 Performed By: #### L 100.0100 #### [facility] [address] [place], [address] RDW SD 44.4 fl High 35.1-43.9 [facility] Comment on above: Order Comment: 510-1 Performed By: #### L 100.0100 #### [facility] [address] [place], [address] WBC (Bld) [#/Vol] 10.6 10*3/uL Normal 4.4-11.0 [facility] Comment on above: Order Comment: 510-1 Performed By: #### L 100.0100 #### [facility] [address] [place], [address] Eosinophil percentageOrdered By: Josi Garcia on 08-07-2024 Eosinophils/100 WBC (Bld) 2.2 % 0-5 [facility] Erythrocyte distribution wid th ratioOrdered By: Josi Garcia on 08-07-2024 Erythrocyte distribution width (RBC) [Ratio] 13.1 % 11.6-14.6 [facility] Erythrocyte distribution wid th standard deviationOrdered By: Josidaina Garcia on 08-07-2024 Erythrocyte distribution width (RBC) [Ratio] 44.4 fl High 35.1-43.9 [facility] Hematocrit Auto (Bld) [Volum e fraction]Ordered By: Josi Garcia on 08-07-2024 Hematocrit (Bld) [Volume fraction] 35.3 % Low 37-47 [facility] Hemoglobin measurementOrdere d By: Josi Garcia on 08-07-2024 Hemoglobin (Bld) [Mass/Vol] 11.0 g/dL Low 12.0-15.0 [facility] Immature granulocytes/100 WB C Auto (Bld)Ordered By: Josi Garcia on 08-07-2024 Immature granulocytes/100 WBC (Bld) 0.300 % 0.0-0.9 [facility] Comment on above: IG% - Immature Granu locytes (promyelocytes, myelocytes and metamyelocytes) > 1% indicates that a LEFT SHIFT is Present. MCV (mean corpuscular volume ) determinationOrdered By: Josi Garcia on 08-07-2024 MCV (RBC) [Entitic vol] 93.1 fL 81-99 [facility] Mean corpuscular hemoglobin (MCH) determinationOrdered By: Josi Garcia on 08-07-2024 MCH (RBC) [Entitic mass] 29.0 pg 27.0-32.0 [facility] Mean corpuscular hemoglobin concentration (MCHC) determinationOrdered By: Josi Garcia on 08-07-2024 MCHC (RBC) [Mass/Vol] 31.2 g/dL Low 32-36 [facility] Mean platelet volume determi nationOrdered By: Josi Garcia on 08-07-2024 Platelet mean volume (Bld) [Entitic vol] 9.6 fL 6.2-12.0 [facility] Monocyte percentageOrdered B y: Josi Garcia on 08-07-2024 Monocytes/100 WBC (Bld) 6.2 % 0-10 [facility] Neutrophil percentageOrdered By: Josi Garcia on 08-07-2024 Neutrophils/100 WBC (Bld) 68.6 % 47-70 [facility] Nucleated red blood cell per centageOrdered By: Josi Garcia on 08-07-2024 Nucleated RBC/100 WBC (Bld) [Ratio] 0 % 0-5 [facility] Platelet countOrdered By: Chuy Garcia on 08-07-2024 Platelets (Bld) [#/Vol] 319 10*3/uL 150-450 [facility] RBC Auto (Bld) [#/Vol]Ordere d By: Josi Garcia on 08-07-2024 RBC (Bld) [#/Vol] 3.79 10*6/uL Low 4.2-5.4 [facility] White blood cell (WBC) count Ordered By: Josi Garcia on 08-07-2024 WBC (Bld) [#/Vol] 10.6 10*3/uL 4.4-11.0 [facility] CNPNon 08-05-2024 CNPN Telephone ([facility]) DIOR CARVAJAL ([id number]) 1965 F Date Time Provider Department 08/05/24 MINI WHYTE [facility] During your visit today, we recorded the following information about you: Gerda Dee, RN 08/05/2024 9:45 AM Signed Scheduling Request - New Patient Time Frame: 4 weeks or best date Orders: Consult to physical medicine and rehab Provider or Provider Group: first available Visit type: In person Referring: Dr Spears Diagnosis: spasticity *PATIENT CAN NOT DO MY CHART AND LIVES IN A SNF. PLEASE CALL [facility] - or fax [phone]-[facility] so transportation can be arranged. MUST CALL daughter TOO Scheduling Request - Established Patient Time Frame: 3 months Orders: MRI brain - Neil ok - OR MRI and visit same day Provider: Dr Spears Visit type: In person with 1-2 days of scan Diagnosis: astrocytoma Kamini John R 08/06/2024 3:43 PM Signed Spoke to Pt daughter, she is scheduled AND confirmed. Pt will call AND schedule consult at her convenience. Allergies As of Date: 08/05/2024 Noted Allergy Reaction ALEVE (NAPROXEN) 11/05/2015 4 - Hives 9 - Itching IODINATED CONTRAST MEDIA 11/05/2015 14 - Other: See Comments Comments: dyspnea LATEX 11/05/2015 14 - Other: See Comments Comments: blisters METHADONE 11/05/2015 16 - Unknown Date Reviewed: 07/31/2024 Reviewed by: India Michel MA - Fully Assessed Reason for Visit: MARYJANE 4 weeks [Other] Prescriptions as of 08/06/2024 - iv contrast (will be provided with radiology test) MRI Brain Inject, intravenously, once for 1 dose.No IV access, insert saline lock prior to beginning of sedation, infusion, injection of imaging exam.Discontinue saline lock post exam. If Pt. has a central line or IVAD, may access for administration according to line specific nursing protocol.Once exam is complete flush line and de-access according to line specific nursing protocol in the MR contrast administration guidelines link - predniSONE (DELTASONE) 50 mg Take this medication, every 6 hours, for 3 doses for prevention of contrast MR (gadolinium] allergy. Take 50 mg, 13 hours, then 7 hours, then 1 hour, prior to the MRI - diphenhydrAMINE HCL 50 mg tablet Medication, to prevent allergic reaction, to MR contrast (gadolinium]. Take 50 mg, 1 (ONE) hour prior to MRI - sertraline (ZOLOFT) 50 mg tablet Take 1 tablet by mouth once daily. - sertraline (ZOLOFT) 25 mg tablet Take 1 tablet by mouth once daily. - cranberry fruit (CRANBERRY) 450 mg tab Take 1 tablet by mouth once daily. - melatonin 5 mg tablet Take 1 tablet by mouth daily at bedtime. - methocarbamol (ROBAXIN) 500 mg tablet Take 1 tablet by mouth three times a day as needed. - ipratropium 20 mcg-albuterol 100 mcg (COMBIVENT RESPIMAT) 20-100 mcg/actuation inhaler Inhale 1 Puff as instructed every 6 hours as needed for wheezing/shortness of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 Patent appearance of the basilar artery and proximal superior cerebellar arteries. Unremarkable appearance of the posterior cerebral arteries. Incidental likely small left frontal juxtacortical developmental venous anomaly. 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 Follow-up exam to assess for progression. TECHNIQUE: Routine brain MRI protocol without and with contrast including diffusion images. MR perfusion study was performed of the entire brain following bolus intravenous administration of gadolinium utilizing dynamic susceptibility-weighte d contrast-enhanced acquisition. Intracranial 3D ipdp-br-sdydjp MRA. 3D maximum intensity projection images were created, reviewed and archived . MQ: [id number]_2 MQ: MRAB_4 Contrast: 16 mL Dotarem IV COMPARISON: MRI brain 02/28/2024, 03/04/2011 RESULT: Postoperative changes: Status post right frontal craniotomy with right frontal lobe tumor resection. Multiple areas of encephalomalacia within the right frontal lobe and ex vacuo dilation of the right lateral ventricle appear stable. Similar extent of extensive confluent nonenhancing parenchymal signal abnormality surrounding the resection and additional signal abnormality to a lesser extent in the deep and periventricular white matter of the left frontal lobe, which appears similar to MRI of 02/28/2024, and overall mildly progressed since remote comparison of 2010. No associated abnormal enhancement. Negative perfusion. Acute Change: There is no evidence of restricted diffusion to suggest an acute infarct. Hemorrhage: Few punctate foci of susceptibility adjacent to the resection cavity likely related to postoperative hemosiderin deposition. Additional numerous scattered punctate microhemorrhages throughout each cerebral hemisphere, likely sequelae of prior radiation therapy. Chronic Change: Scattered punctate foci of increased T2 and FLAIR signal are noted in the supratentorial white matter which is a nonspecific finding, but likely represents minimal chronic microvascular ischemia. Remote left thalamic infarct. Parenchyma: Postoperative and parenchymal changes described above. There is mild generalized parenchymal volume loss. The brain parenchyma is otherwise within normal limits of signal intensity and morphology. Ventricles: Ventriculomegaly corresponds to the degree of parenchymal volume loss. Ex vacuo dilation of the right lateral ventricle atrium. Skull Base: Hypothalamic and pituitary region are grossly normal. Craniocervical junction is normal. No significant marrow replacement process. Other: The visualized paranasal sinuses and mastoid air cells are clear. The orbits and extracranial soft tissues are unremarkable. Intracranial MRA: Anterior Circulation: Approximately 3 mm left periophthalmic ICA aneurysm (series 5, images 94-96). Additional subtle outpouching projecting posteriorly from the junction of the right carotid terminus and M1 segment, measuring approximately 2 mm, possibly reflecting additional small aneurysm (images 72-74). The imaged distal cervical ICAs and carotid siphons are normal in caliber. Patent imaged portions of the ACAs with right dominant A1 segment and patent anterior communicating artery. Patent appearance of the MCAs bilaterally. Posterior Circulation: Patent right intracranial vertebral artery. Again noted is markedly hypoplastic versus chronically occluded left V4 segment extending to the vertebrobasilar junction. The dominant right vertebral artery appears normal in caliber. Patent appearance of the basilar artery and proximal superior cerebellar arteries. Unremarkable appearance of the posterior cerebral arteries. Incidental likely small left frontal juxtacortical developmental venous anomaly. IMPRESSION IMPRESSION: Right frontal postoperative changes with similar extent of nonspecific parenchymal signal abnormality surrounding the resection since 02/28/2024, overall progressed when compared to more remote examination of 2010. No abnormal parenchymal enhancement or localized perfusion abnormality. 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 3 mm left periophthalmic ICA aneurysm and additional possible small aneurysm at the junction of the right carotid terminus and M1 segment. 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 Follow-up exam to assess for progression. TECHNIQUE: Routine brain MRI protocol without and with contrast including diffusion images. MR perfusion study was performed of the entire brain following bolus intravenous administration of gadolinium utilizing dynamic susceptibility-weighte d contrast-enhanced acquisition. Intracranial 3D nvll-oz-pwwoli MRA. 3D maximum intensity projection images were created, reviewed and archived . MQ: MRBWOW_2 MQ: MRAB_4 Contrast: 16 mL Dotarem IV COMPARISON: MRI brain 02/28/2024, 03/04/2011 RESULT: Postoperative changes: Status post right frontal craniotomy with right frontal lobe tumor resection. Multiple areas of encephalomalacia within the right frontal lobe and ex vacuo dilation of the right lateral ventricle appear stable. Similar extent of extensive confluent nonenhancing parenchymal signal abnormality surrounding the resection and additional signal abnormality to a lesser extent in the deep and periventricular white matter of the left frontal lobe, which appears similar to MRI of 02/28/2024, and overall mildly progressed since remote comparison of 2010. No associated abnormal enhancement. Negative perfusion. Acute Change: There is no evidence of restricted diffusion to suggest an acute infarct. Hemorrhage: Few punctate foci of susceptibility adjacent to the resection cavity likely related to postoperative hemosiderin deposition. Additional numerous scattered punctate microhemorrhages throughout each cerebral hemisphere, likely sequelae of prior radiation therapy. Chronic Change: Scattered punctate foci of increased T2 and FLAIR signal are noted in the supratentorial white matter which is a nonspecific finding, but likely represents minimal chronic microvascular ischemia. Remote left thalamic infarct. Parenchyma: Postoperative and parenchymal changes described above. There is mild generalized parenchymal volume loss. The brain parenchyma is otherwise within normal limits of signal intensity and morphology. Ventricles: Ventriculomegaly corresponds to the degree of parenchymal volume loss. Ex vacuo dilation of the right lateral ventricle atrium. Skull Base: Hypothalamic and pituitary region are grossly normal. Craniocervical junction is normal. No significant marrow replacement process. Other: The visualized paranasal sinuses and mastoid air cells are clear. The orbits and extracranial soft tissues are unremarkable. Intracranial MRA: Anterior Circulation: Approximately 3 mm left periophthalmic ICA aneurysm (series 5, images 94-96). Additional subtle outpouching projecting posteriorly from the junction of the right carotid terminus and M1 segment, measuring approximately 2 mm, possibly reflecting additional small aneurysm (images 72-74). The imaged distal cervical ICAs and carotid siphons are normal in caliber. Patent imaged portions of the ACAs with right dominant A1 segment and patent anterior communicating artery. Patent appearance of the MCAs bilaterally. Posterior Circulation: Patent right intracranial vertebral artery. Again noted is markedly hypoplastic versus chronically occluded left V4 segment extending to the vertebrobasilar junction. The dominant right vertebral artery appears normal in caliber. Patent appearance of the basilar artery and proximal superior cerebellar arteries. Unremarkable appearance of the posterior cerebral arteries. Incidental likely small left frontal juxtacortical developmental venous anomaly. IMPRESSION: Right frontal postoperative changes with similar extent of nonspecific parenchymal signal abnormality surrounding the resection since 02/28/2024, overall progressed when compared to more remote examination of 2010. No abnormal parenchymal enhancement or localized perfusion abnormality. 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 3 mm left periophthalmic ICA aneurysm and additional possible small aneurysm at the junction of the right carotid terminus and M1 segment. 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 Follow-up exam to assess for progression. TECHNIQUE: Routine brain MRI protocol without and with contrast including diffusion images. MR perfusion study was performed of the entire brain following bolus intravenous administration of gadolinium utilizing dynamic susceptibility-weighte d contrast-enhanced acquisition. Intracranial 3D yklc-kj-jjghir MRA. 3D maximum intensity projection images were created, reviewed and archived . MQ: MRBWOW_2 MQ: MRAB_4 Contrast: 16 mL Dotarem IV COMPARISON: MRI brain 02/28/2024, 03/04/2011 RESULT: Postoperative changes: Status post right frontal craniotomy with right frontal lobe tumor resection. Multiple areas of encephalomalacia within the right frontal lobe and ex vacuo dilation of the right lateral ventricle appear stable. Similar extent of extensive confluent nonenhancing parenchymal signal abnormality surrounding the resection and additional signal abnormality to a lesser extent in the deep and periventricular white matter of the left frontal lobe, which appears similar to MRI of 02/28/2024, and overall mildly progressed since remote comparison of 2010. No associated abnormal enhancement. Negative perfusion. Acute Change: There is no evidence of restricted diffusion to suggest an acute infarct. Hemorrhage: Few punctate foci of susceptibility adjacent to the resection cavity likely related to postoperative hemosiderin deposition. Additional numerous scattered punctate microhemorrhages throughout each cerebral hemisphere, likely sequelae of prior radiation therapy. Chronic Change: Scattered punctate foci of increased T2 and FLAIR signal are noted in the supratentorial white matter which is a nonspecific finding, but likely represents minimal chronic microvascular ischemia. Remote left thalamic infarct. Parenchyma: Postoperative and parenchymal changes described above. There is mild generalized parenchymal volume loss. The brain parenchyma is otherwise within normal limits of signal intensity and morphology. Ventricles: Ventriculomegaly corresponds to the degree of parenchymal volume loss. Ex vacuo dilation of the right lateral ventricle atrium. Skull Base: Hypothalamic and pituitary region are grossly normal. Craniocervical junction is normal. No significant marrow replacement process. Other: The visualized paranasal sinuses and mastoid air cells are clear. The orbits and extracranial soft tissues are unremarkable. Intracranial MRA: Anterior Circulation: Approximately 3 mm left periophthalmic ICA aneurysm (series 5, images 94-96). Additional subtle outpouching projecting posteriorly from the junction of the right carotid terminus and M1 segment, measuring approximately 2 mm, possibly reflecting additional small aneurysm (images 72-74). The imaged distal cervical ICAs and carotid siphons are normal in caliber. Patent imaged portions of the ACAs with right dominant A1 segment and patent anterior communicating artery. Patent appearance of the MCAs bilaterally. Posterior Circulation: Patent right intracranial vertebral artery. Again noted is markedly hypoplastic versus chronically occluded left V4 segment extending to the vertebrobasilar junction. The dominant right vertebral artery appears normal in caliber. Patent appearance of the basilar artery and proximal superior cerebellar arteries. Unremarkable appearance of the posterior cerebral arteries. Incidental likely small left frontal juxtacortical developmental venous anomaly. 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 Follow-up exam to assess for progression. TECHNIQUE: Routine brain MRI protocol without and with contrast including diffusion images. MR perfusion study was performed of the entire brain following bolus intravenous administration of gadolinium utilizing dynamic susceptibility-weighte d contrast-enhanced acquisition. Intracranial 3D jcnb-iz-llfhkl MRA. 3D maximum intensity projection images were created, reviewed and archived . MQ: MRBWOW_2 MQ: MRAB_4 Contrast: 16 mL Dotarem IV COMPARISON: MRI brain 02/28/2024, 03/04/2011 RESULT: Postoperative changes: Status post right frontal craniotomy with right frontal lobe tumor resection. Multiple areas of encephalomalacia within the right frontal lobe and ex vacuo dilation of the right lateral ventricle appear stable. Similar extent of extensive confluent nonenhancing parenchymal signal abnormality surrounding the resection and additional signal abnormality to a lesser extent in the deep and periventricular white matter of the left frontal lobe, which appears similar to MRI of 02/28/2024, and overall mildly progressed since remote comparison of 2010. No associated abnormal enhancement. Negative perfusion. Acute Change: There is no evidence of restricted diffusion to suggest an acute infarct. Hemorrhage: Few punctate foci of susceptibility adjacent to the resection cavity likely related to postoperative hemosiderin deposition. Additional numerous scattered punctate microhemorrhages throughout each cerebral hemisphere, likely sequelae of prior radiation therapy. Chronic Change: Scattered punctate foci of increased T2 and FLAIR signal are noted in the supratentorial white matter which is a nonspecific finding, but likely represents minimal chronic microvascular ischemia. Remote left thalamic infarct. Parenchyma: Postoperative and parenchymal changes described above. There is mild generalized parenchymal volume loss. The brain parenchyma is otherwise within normal limits of signal intensity and morphology. Ventricles: Ventriculomegaly corresponds to the degree of parenchymal volume loss. Ex vacuo dilation of the right lateral ventricle atrium. Skull Base: Hypothalamic and pituitary region are grossly normal. Craniocervical junction is normal. No significant marrow replacement process. Other: The visualized paranasal sinuses and mastoid air cells are clear. The orbits and extracranial soft tissues are unremarkable. Intracranial MRA: Anterior Circulation: Approximately 3 mm left periophthalmic ICA aneurysm (series 5, images 94-96). Additional subtle outpouching projecting posteriorly from the junction of the right carotid terminus and M1 segment, measuring approximately 2 mm, possibly reflecting additional small aneurysm (images 72-74). The imaged distal cervical ICAs and carotid siphons are normal in caliber. Patent imaged portions of the ACAs with right dominant A1 segment and patent anterior communicating artery. Patent appearance of the MCAs bilaterally. Posterior Circulation: Patent right intracranial vertebral artery. Again noted is markedly hypoplastic versus chronically occluded left V4 segment extending to the vertebrobasilar junction. The dominant right vertebral artery appears normal in caliber. Patent appearance of the basilar artery and proximal superior cerebellar arteries. Unremarkable appearance of the posterior cerebral arteries. Incidental likely small left frontal juxtacortical developmental venous anomaly. IMPRESSION IMPRESSION: Right frontal postoperative changes with similar extent of nonspecific parenchymal signal abnormality surrounding the resection since 02/28/2024, overall progressed when compared to more remote examination of 2010. No abnormal parenchymal enhancement or localized perfusion abnormality. 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 3 mm left periophthalmic ICA aneurysm and additional possible small aneurysm at the junction of the right carotid terminus and M1 segment. 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 Follow-up exam to assess for progression. TECHNIQUE: Routine brain MRI protocol without and with contrast including diffusion images. MR perfusion study was performed of the entire brain following bolus intravenous administration of gadolinium utilizing dynamic susceptibility-weighte d contrast-enhanced acquisition. Intracranial 3D lebj-np-xvsryw MRA. 3D maximum intensity projection images were created, reviewed and archived . MQ: MRBWOW_2 MQ: MRAB_4 Contrast: 16 mL Dotarem IV COMPARISON: MRI brain 02/28/2024, 03/04/2011 RESULT: Postoperative changes: Status post right frontal craniotomy with right frontal lobe tumor resection. Multiple areas of encephalomalacia within the right frontal lobe and ex vacuo dilation of the right lateral ventricle appear stable. Similar extent of extensive confluent nonenhancing parenchymal signal abnormality surrounding the resection and additional signal abnormality to a lesser extent in the deep and periventricular white matter of the left frontal lobe, which appears similar to MRI of 02/28/2024, and overall mildly progressed since remote comparison of 2010. No associated abnormal enhancement. Negative perfusion. Acute Change: There is no evidence of restricted diffusion to suggest an acute infarct. Hemorrhage: Few punctate foci of susceptibility adjacent to the resection cavity likely related to postoperative hemosiderin deposition. Additional numerous scattered punctate microhemorrhages throughout each cerebral hemisphere, likely sequelae of prior radiation therapy. Chronic Change: Scattered punctate foci of increased T2 and FLAIR signal are noted in the supratentorial white matter which is a nonspecific finding, but likely represents minimal chronic microvascular ischemia. Remote left thalamic infarct. Parenchyma: Postoperative and parenchymal changes described above. There is mild generalized parenchymal volume loss. The brain parenchyma is otherwise within normal limits of signal intensity and morphology. Ventricles: Ventriculomegaly corresponds to the degree of parenchymal volume loss. Ex vacuo dilation of the right lateral ventricle atrium. Skull Base: Hypothalamic and pituitary region are grossly normal. Craniocervical junction is normal. No significant marrow replacement process. Other: The visualized paranasal sinuses and mastoid air cells are clear. The orbits and extracranial soft tissues are unremarkable. Intracranial MRA: Anterior Circulation: Approximately 3 mm left periophthalmic ICA aneurysm (series 5, images [id number]). Additional subtle outpouching projecting posteriorly from the junction of the right carotid terminus and M1 segment, measuring approximately 2 mm, possibly reflecting additional small aneurysm (images 72-74). The imaged distal cervical ICAs and carotid siphons are normal in caliber. Patent imaged portions of the ACAs with right dominant A1 segment and patent anterior communicating artery. Patent appearance of the MCAs bilaterally. Posterior Circulation: Patent right intracranial vertebral artery. Again noted is markedly hypoplastic versus chronically occluded left V4 segment extending to the vertebrobasilar junction. The dominant right vertebral artery appears normal in caliber. Patent appearance of the basilar artery and proximal superior cerebellar arteries. Unremarkable appearance of the posterior cerebral arteries. Incidental likely small left frontal juxtacortical developmental venous anomaly. IMPRESSION: Right frontal postoperative changes with similar extent of nonspecific parenchymal signal abnormality surrounding the resection since 02/28/2024, overall progressed when compared to more remote examination of 2010. No abnormal parenchymal enhancement or localized perfusion abnormality. 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 3 mm left periophthalmic ICA aneurysm and additional possible small aneurysm at the junction of the right carotid terminus and M1 segment. Laundry Aide: MAGUI Transcribe Date/Time: May 26 2024 11:44A Dictated by : MARGIE AGUIAR MD This examination was interpreted and the report reviewed and electronically signed by: TRES MONTES MD on May 26 2024 2:47PM EST [id number] Normal [facility] No Panel Informationon 05-26 IMPRESSION: Right frontal postoperative changes with similar extent of nonspecific parenchymal signal abnormality surrounding the resection since 02/28/2024, overall progressed when compared to more remote examination of 2010. No abnormal parenchymal enhancement or localized perfusion abnormality. 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 3 mm left periophthalmic ICA aneurysm and additional possible small aneurysm at the junction of the right carotid terminus and M1 segment. Laundry Aide: PSCB Transcribe Date/Time: May 26 2024 11:44A Dictated by : MARGIE AGUIAR MD This examination was interpreted and the report reviewed and electronically signed by: TRES MONTES MD on May 26 2024 2:47PM EST DIVISION OF RADIOLOGY Radiology Study observation (narrative) [facility] No Panel InformationOrdered By: Ccf Provider on 05-26-2024 [facility] XR CERVICAL 2V FLEX/EXTon XR CERVICAL 2V FLEX/EXT * * *Final Repor t* * * DATE OF EXAM: May 26 2024 9:27AM KIRSTEN [id number] - XR CERVICAL 2V FLEX/EXT / PROCEDURE REASON: multiple diagnoses * * * * Physician Interpretation * * * * HISTORY: Allergy to intravenous contrast media Anaplastic astrocytoma (HCC) Mild cognitive impairment Cognitive decline TECHNOLOGIST PROVIDED HISTORY (if applicable): TECHNIQUE: XR CERVICAL 2V FLEX/EXT RESULT: Cervical spine neutral flexion and extension laterals, supplemented by a swimmer's projection. Counting reference: Craniocervical junction. The examination is nondiagnostic caudal to C4-5 due to overlapping structures. Comparison is to 06/15/2014. The previously seen anterior fusion hardware between C5 and C7 is less well demonstrated today but grossly intact. Graft incorporation is suspected as before. The cervical lordosis is straightened with minimal anterolisthesis at C3-4 with there is severe disc space narrowing with small osteophytes and interval progression. Additional degenerative changes are present at C4-5 with narrowing and productive changes anteriorly similar to the prior. C2-3 is normal as is the atlantoaxial interval. With flexion and extension there is no demonstration of instability from C1-2 through C4-5. Prevertebral soft tissue thickness is normal. Status post frontal craniotomy with plates and screws. IMPRESSION: LIMITED CAUDAL TO C4-5. NO RADIOGRAPHIC DEMONSTRATION OF INSTABILITY IN THE UPPER CERVICAL SPINE. Laundry Aide: [facility] Transcribe Date/Time: May 26 2024 9:38A Dictated by : RICHMOND SINCLAIR MD This examination was interpreted and the report reviewed and electronically signed by: RICHMOND SINCLAIR MD on May 26 2024 9:40AM EST [id number] Normal [facility] XR Cervical spine 2 or 3 vie ws and (Views W flexion and W extension)on 05-26-2024 IMPRESSION: LIMITED CAUDAL TO C4-5. NO RADIOGRAPHIC DEMONSTRATION OF INSTABILITY IN THE UPPER CERVICAL SPINE. Laundry Aide: [facility] Transcribe Date/Time: May 26 2024 9:38A Dictated by : RICHMOND SINCLAIR MD This examination was interpreted and the report reviewed and electronically signed by: RICHMOND SINCLAIR MD on May 26 2024 9:40AM EST DIVISION OF RADIOLOGY * * *Final Report* * * DATE OF EXAM: May 26 2024 9:27AM KIRSTEN [id number] - XR CERVICAL 2V FLEX/EXT / PROCEDURE REASON: multiple diagnoses * * * * Physician Interpretation * * * * HISTORY: Allergy to intravenous contrast media Anaplastic astrocytoma (HCC) Mild cognitive impairment Cognitive decline TECHNOLOGIST PROVIDED HISTORY (if applicable): TECHNIQUE: XR CERVICAL 2V FLEX/EXT RESULT: Cervical spine neutral flexion and extension laterals, supplemented by a swimmer's projection. Counting reference: Craniocervical junction. The examination is nondiagnostic caudal to C4-5 due to overlapping structures. Comparison is to 06/15/2014. The previously seen anterior fusion hardware between C5 and C7 is less well demonstrated today but grossly intact. Graft incorporation is suspected as before. The cervical lordosis is straightened with minimal anterolisthesis at C3-4 with there is severe disc space narrowing with small osteophytes and interval progression. Additional degenerative changes are present at C4-5 with narrowing and productive changes anteriorly similar to the prior. C2-3 is normal as is the atlantoaxial interval. With flexion and extension there is no demonstration of instability from C1-2 through C4-5. Prevertebral soft tissue thickness is normal. Status post frontal craniotomy with plates and screws. DIVISION OF RADIOLOGY Provider, [facility] - 05/26/2024 * * *Final Report* * * DATE OF EXAM: May 26 2024 9:27AM KIRSTEN [id number] - XR CERVICAL 2V FLEX/EXT / PROCEDURE REASON: multiple diagnoses * * * * Physician Interpretation * * * * HISTORY: Allergy to intravenous contrast media Anaplastic astrocytoma (HCC) Mild cognitive impairment Cognitive decline TECHNOLOGIST PROVIDED HISTORY (if applicable): TECHNIQUE: XR CERVICAL 2V FLEX/EXT RESULT: Cervical spine neutral flexion and extension laterals, supplemented by a swimmer's projection. Counting reference: Craniocervical junction. The examination is nondiagnostic caudal to C4-5 due to overlapping structures. Comparison is to 06/15/2014. The previously seen anterior fusion hardware between C5 and C7 is less well demonstrated today but grossly intact. Graft incorporation is suspected as before. The cervical lordosis is straightened with minimal anterolisthesis at C3-4 with there is severe disc space narrowing with small osteophytes and interval progression. Additional degenerative changes are present at C4-5 with narrowing and productive changes anteriorly similar to the prior. C2-3 is normal as is the atlantoaxial interval. With flexion and extension there is no demonstration of instability from C1-2 through C4-5. Prevertebral soft tissue thickness is normal. Status post frontal craniotomy with plates and screws. IMPRESSION IMPRESSION: LIMITED CAUDAL TO C4-5. NO RADIOGRAPHIC DEMONSTRATION OF INSTABILITY IN THE UPPER CERVICAL SPINE. Laundry Aide: [facility] Transcribe Date/Time: May 26 2024 9:38A Dictated by : RICHMOND SINCLAIR MD This examination was interpreted and the report reviewed and electronically signed by: RICHMOND SINCLAIR MD on May 26 2024 9:40AM EST [facility] Radiology [facility]narrative[facility] XR Cervical spine 2 or 3 vie ws and (Views W flexion and W extension)Ordered By: Ccf Provider on 05-26-2024 [facility] Crissy 05-15-2024 CNPN Telephone ([facility]) DIOR CARVAJAL ([id number]) 1965 F Date Time Provider Department 05/15/24 MARIAN WHYTEDRCarlos ZULUAGAAudra During your visit today, we recorded the following information about you: Marc Pina RN 05/15/2024 4:10 PM Signed Called [facility] to inform them of the patient's appointments. Called and spoke with patient's sister, Katie as well. Allergies As of Date: 05/15/2024 Noted Allergy Reaction ALEVE (NAPROXEN) 11/05/2015 4 - Hives 9 - Itching IODINATED CONTRAST MEDIA 11/05/2015 14 - Other: See Comments Comments: dyspnea LATEX 11/05/2015 14 - Other: See Comments Comments: blisters METHADONE 11/05/2015 16 - Unknown Date Reviewed: 02/28/2024 Reviewed by: India Michel MA - Fully Assessed Reason for Visit: Patient Update [1234] Prescriptions as of 05/15/2024 - predniSONE (DELTASONE) 50 mg Take this medication, every 6 hours, for 3 doses for prevention of contrast MR (gadolinium] allergy. Take 50 mg, 13 hours, then 7 hours, then 1 hour, prior to the MRI - diphenhydrAMINE HCL 50 mg tablet Medication, to prevent allergic reaction, to MR contrast (gadolinium]. Take 50 mg, 1 (ONE) hour prior to MRI - traMADol (ULTRAM) 50 mg tablet Take 1 tablet by mouth two times a day for 180 days. - sertraline (ZOLOFT) 50 mg tablet Take 1 tablet by mouth once daily. - sertraline (ZOLOFT) 25 mg tablet Take 1 tablet by mouth once daily. - cranberry fruit (CRANBERRY) 450 mg tab Take 1 tablet by mouth once daily. - melatonin 5 mg tablet Take 1 tablet by mouth daily at bedtime. - methocarbamol (ROBAXIN) 500 mg tablet Take 1 tablet by mouth three times a day as needed. - ipratropium 20 mcg-albuterol 100 mcg (COMBIVENT RESPIMAT) 20-100 mcg/actuation inhaler Inhale 1 Puff as instructed every 6 hours as needed for wheezing/shortness of breath. - atorvastatin (LIPITOR) 20 mg tablet Take 1 tablet by mouth once daily. - omeprazole (PRILOSEC) 40 mg capsule Take 1 capsule by mouth once daily. - mirabegron (MYRBETRIQ) 50 mg Tb24 Take 1 tablet by mouth once daily. - conjugated estrogens (PREMARIN) vaginal cream Use 0.5 g vaginally two times a week. - LINZESS 72 mcg capsule Take 1 capsule by mouth once daily. - dicyclomine (BENTYL) 20 mg tablet Take 1 tablet by mouth w MEALS. - ondansetron orally disintegrating (ZOFRAN ODT) 4 mg disintegrating tablet Take 1 tablet by mouth as needed. - carvedilol (COREG) 3.125 mg tablet Take 1 tablet by mouth twice daily with meals. - Multivitamin capsule Take 1 capsule by mouth once daily. - aspirin 81 mg chewable tablet Take 1 tablet by mouth once daily. 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] 03/21/2022 Grief [F43.21] 05/25/2022 Encounter Status:Closed by MARC PINA on 05/15/24 [facility] 05-13-2024 [facility] Telephone ([facility]) DIOR CARVAJAL ([id number]) 1965 F Date Time Provider Department 05/13/24 MINI WHYTE [facility] During your visit today, we recorded the following information about you: Mini Whyte MD 05/13/2024 6:33 PM Signed Telephone communication of the MRI results with the patient's sister, in view, that it is cumbersome to get a hold of the patient herself, and she also has problems with memory the patient's request and her sister who is her MPOA, they have requested for me to speak with Katie her sister, first and Katie will deliver the messages to the patient. I called Josie, patient's sister and MPOA, about the results of the MRIs. I reviewed the reports, and the significance of it. I also reiterated, of my recommendation for the patient to see a specialist, and cerebrovascular neurology, as well spine surgeon. 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 Also history of a stroke, with severe atherosclerosis, that has unfortunately, render the patient, with neurological compromise. However, the patient is stable clinically, at this point. Katie verbalized understanding, of the review of the images and results and agrees, with the recommendations. Katie is aware, that the patient has follow-up appointments for MRIs and with me in my clinic as well with the other specialist. She said that she will make sure, Dior attend those appointments. Mini Whyte MD Results MR-MRA Neck without Contrast - OVERREAD (Acc#[id number]) (Order [id number]) Patient Info Patient Name Sex Dior Carvajal ([id number]) Female 1965 In Basket Actions Done Result Mgmt View in In Basket 05/13/2024 8:39 AM - Radiology, Oru In Addenda * * *Final Report* * * * * * SEE BOTTOM OF REPORT FOR ADDENDED TEXT * * * DATE OF EXAM: Apr 29 2024 12:00AM OUT 0001 - MR OUTSIDE CD DICOM IMPORT -NBNR / PROCEDURE REASON: Tumor Board Discussion * * * * Physician Interpretation * * * * * * * * * * * * ORIGINAL REPORT * * * * * * * * EXAMINATION: OUTSIDE IMAGING INTERPRETATION Indication for the Request / Reason for Overread: Tumor Board Discussion Service Requesting Consult: Neurology Any specific Issue(s) to be discussed: Tumor Board discussion Images Reviewed: [id number] MR Angiogram of the Neck and MR of the cervical spine without and with contrast performed on 04/29/2024 12:00 AM Overread Date: 05/08/2024 9:40 AM HISTORY: History of RIGHT frontal anaplastic astrocytoma. RESULT: CERVICAL SPINE: Counting reference: Craniocervical junction. Anatomic Variants: None. Localizer images: Noncontributory Alignment: Straightening of normal cervical lordosis. Craniocervical junction: Craniocervical junction is normal. Cord: Atrophy of the cervical cord spanning C5-C7 levels with T2 STIR hyperintense cord signal abnormality at C7 level consistent with changes of chronic myelomalacia. Bone marrow signal/fracture: Postoperative changes of C5-C7 anterior spinal fusion with apparent solid osseous fusion of C5-C7 vertebral bodies. Prominent anterior osteophyte at C4-5 mildly deforms the posterior wall of the hypopharynx. There is mild STIR hyperintensity and marrow edema/enhancement about the C3-4 disc space favored to be related to type I degenerative endplate change. Apparent marrow hyperintensity involving the C5-T1 vertebral bodies on postcontrast fat-saturated T1 images favored to be related to incomplete fat suppression from susceptibility secondary to spinal hardware. Cervical soft tissues: The paraspinal soft tissues are within normal limits. T2 hyperintense subcentimeter LEFT thyroid nodule. Canal and foramina: Posterior disc osteophyte complexes at C3-4, and C4-5 resulting in mild canal stenosis with ventral cord abutment at these levels. No high-grade canal stenosis. Mild multilevel facet and uncovertebral arthropathy contributing to moderate bilateral C3-4 and mild bilateral C4-5 neural foraminal narrowing. MRA NECK: Carotid Stenosis: Right Common: No significant stenosis. Right Internal Plaque: Moderate plaque formation at the RIGHT carotid bulb Right Internal Carotid Stenosis (% by NASCET Criteria): Approximately 50% Left Common: No significant stenosis. Left Internal Carotid Plaque: Moderate to severe plaque formation at the LEFT carotid bifurcation Left Internal Carotid Stenosis (% by NASCET Criteria): Approximately 70% Cervical Vertebral Arteries: RIGHT vertebral artery is patent. 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 IMPRESSION: Loss of flow signal in the LEFT vertebral artery consi (more content not included)... Normal [facility] CNPNon 05-12-2024 CNPN Telephone ([facility]) DIOR CARVAJAL ([id number]) 1965 F Date Time Provider Department 05/12/24 MINI WHYTE [facility] During your visit today, we recorded the following information about you: Gerda Dee, RN 05/12/2024 2:56 PM Addendum If possible can we add MRA brain and C- spine xray to be added to study for 05/26? She is coming from a facility if this could be added. [place], [place] If not, let us know and they will need to arrange through her facility. Thank you Gerda Scheduling Request - New Patient Time Frame: 2-4 weeks or best [facility] or Provider Group: First available Visit type: In person Referring: Dr Spears Diagnosis: cognitive impairment Scheduling Request - New Patient Time Frame: 2-4 weeks or best Orders: Consult to neurology- Cerebrovascular center Provider or Provider Group: First available Visit type: In person Referring: Dr Spears Diagnosis: occlusion and stenosis of carotid artery Scheduling Request - New Patient Time Frame: 2-4 weeks or best Orders: Consult to Spine center Provider or Provider Group: first available Visit type: In person Referring: Dr Spears 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 Scheduling Request - New Patient Time Frame: 2-4 weeks or best Orders: Consult to neurosurgery Provider or Provider Group: first available Visit type: In person Referring: Dr Spears Diagnosis: Injury of cervical spinal cord, sequela (HCC) 8. H/O laminectomy Please let us know when scheduled- We have to notify her facility and her sister so they can arrange for transportation Allergies As of Date: 05/12/2024 Noted Allergy Reaction ALEVE (NAPROXEN) 11/05/2015 4 - Hives 9 - Itching IODINATED CONTRAST MEDIA 11/05/2015 14 - Other: See Comments Comments: dyspnea LATEX 11/05/2015 14 - Other: See Comments Comments: blisters METHADONE 11/05/2015 16 - Unknown Date Reviewed: 02/28/2024 Reviewed by: India Michel MA - Fully Assessed Reason for Visit: MARYJANE Add on for 3/3 [Other] Prescriptions as of 05/26/2024 - predniSONE (DELTASONE) 50 mg Take this medication, every 6 hours, for 3 doses for prevention of contrast MR (gadolinium] allergy. Take 50 mg, 13 hours, then 7 hours, then 1 hour, prior to the MRI - diphenhydrAMINE HCL 50 mg tablet Medication, to prevent allergic reaction, to MR contrast (gadolinium]. Take 50 mg, 1 (ONE) hour prior to MRI - traMADol (ULTRAM) 50 mg tablet Take 1 tablet by mouth two times a day for 180 days. - sertraline (ZOLOFT) 50 mg tablet Take 1 tablet by mouth once daily. - sertraline (ZOLOFT) 25 mg tablet Take 1 tablet by mouth once daily. - cranberry fruit (CRANBERRY) 450 mg tab Take 1 tablet by mouth once daily. - melatonin 5 mg tablet Take 1 tablet by mouth daily at bedtime. - methocarbamol (ROBAXIN) 500 mg tablet Take 1 tablet by mouth three times a day as needed. - ipratropium 20 mcg-albuterol 100 mcg (COMBIVENT RESPIMAT) 20-100 mcg/actuation inhaler Inhale 1 Puff as instructed every 6 hours as needed for wheezing/shortness of breath. - atorvastatin (LIPITOR) 20 mg tablet Take 1 tablet by mouth once daily. - omeprazole (PRILOSEC) 40 mg capsule Take 1 capsule by mouth once daily. - mirabegron (MYRBETRIQ) 50 mg Tb24 Take 1 tablet by mouth once daily. - conjugated estrogens (PREMARIN) vaginal cream Use 0.5 g vaginally two times a week. - LINZESS 72 mcg capsule Take 1 capsule by mouth once daily. - dicyclomine (BENTYL) 20 mg tablet Take 1 tablet by mouth w MEALS. - ondansetron orally disintegrating (ZOFRAN ODT) 4 mg disintegrating tablet Take 1 tablet by mouth as needed. - carvedilol (COREG) 3.125 mg tablet Take 1 tablet by mouth twice daily with meals. - Multivitamin capsule Take 1 capsule by mouth once daily. - aspirin 81 mg chewable tablet Take 1 tablet by mouth once daily. 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] 03/21/2022 Grief [F43.21] 05/25/2022 Encounter Status:Closed by GERDA DEE on 05/26/24 [facility] DIOR CARVA[facility]AL ([id number]) 1965 F Date Time Provider Department 05/09/24 [facility]I WHYTE [facility] During your visit today, we recorded the following information about you: Mini Whyte MD 05/09/2024 6:21 PM Signed I called Katie Hassan, again, to provide the results of the MRIs, the patient's sister who is her caregiver and MPOA, as I was asked to call here first but unfortunately I could not reach her but I left a message that I called and to call us back, I left the tel No on her VM. I also called and left a VM on the other tooth cutter contact wheel, that I called: Long [employer] (Father) [phone] I will wait for them to call back. Mini Whyte MD Allergies As of Date: 05/09/2024 Noted Allergy Reaction ALEVE (NAPROXEN) 11/05/2015 4 - Hives 9 - Itching IODINATED CONTRAST MEDIA 11/05/2015 14 - Other: See Comments Comments: dyspnea LATEX 11/05/2015 14 - Other: See Comments Comments: blisters METHADONE 11/05/2015 16 - Unknown Date Reviewed: 02/28/2024 Reviewed by: India Michel MA - Fully Assessed Prescriptions as of 05/09/2024 - predniSONE (DELTASONE) 50 mg Take this medication, every 6 hours, for 3 doses for prevention of contrast MR (gadolinium] allergy. Take 50 mg, 13 hours, then 7 hours, then 1 hour, prior to the MRI - diphenhydrAMINE HCL 50 mg tablet Medication, to prevent allergic reaction, to MR contrast (gadolinium]. Take 50 mg, 1 (ONE) hour prior to MRI - traMADol (ULTRAM) 50 mg tablet Take 1 tablet by mouth two times a day for 180 days. - sertraline (ZOLOFT) 50 mg tablet Take 1 tablet by mouth once daily. - sertraline (ZOLOFT) 25 mg tablet Take 1 tablet by mouth once daily. - cranberry fruit (CRANBERRY) 450 mg tab Take 1 tablet by mouth once daily. - melatonin 5 mg tablet Take 1 tablet by mouth daily at bedtime. - methocarbamol (ROBAXIN) 500 mg tablet Take 1 tablet by mouth three times a day as needed. - ipratropium 20 mcg-albuterol 100 mcg (COMBIVENT RESPIMAT) 20-100 mcg/actuation inhaler Inhale 1 Puff as instructed every 6 hours as needed for wheezing/shortness of breath. - atorvastatin (LIPITOR) 20 mg tablet Take 1 tablet by mouth once daily. - omeprazole (PRILOSEC) 40 mg capsule Take 1 capsule by mouth once daily. - mirabegron (MYRBETRIQ) 50 mg Tb24 Take 1 tablet by mouth once daily. - conjugated estrogens (PREMARIN) vaginal cream Use 0.5 g vaginally two times a week. - LINZESS 72 mcg capsule Take 1 capsule by mouth once daily. - dicyclomine (BENTYL) 20 mg tablet Take 1 tablet by mouth w MEALS. - ondansetron orally disintegrating (ZOFRAN ODT) 4 mg disintegrating tablet Take 1 tablet by mouth as needed. - carvedilol (COREG) 3.125 mg tablet Take 1 tablet by mouth twice daily with meals. - Multivitamin capsule Take 1 capsule by mouth once daily. - aspirin 81 mg chewable tablet Take 1 tablet by mouth once daily. 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/2022 Grief [F43.21] 05/25/2022 Encounter Status:Closed by MINI WHYTE on 05/09/24 [facility] 05-08-2024 [facility] Telephone ([facility]) DIOR CARVAJAL ([id number]) 1965 F Date Time Provider Department 05/08/24 MINI WHYTE [facility] During your visit today, we recorded the following information about you: Mini Whyte MD 05/08/2024 11:21 AM Signed The patient is scheduled for a telephone call, but as requested by the patient's sister who is her caregiver they should call here first that is Katie Hassan, I called her, but unfortunately I could not reach her but I left a message that I called and hopefully everything is okay with him and with here, and I asked her to the to call us so we can reschedule these telephone encounter. Mini Whyte MD Allergies As of Date: 05/08/2024 Noted Allergy Reaction ALEVE (NAPROXEN) 11/05/2015 4 - Hives 9 - Itching IODINATED CONTRAST MEDIA 11/05/2015 14 - Other: See Comments Comments: dyspnea LATEX 11/05/2015 14 - Other: See Comments Comments: blisters METHADONE 11/05/2015 16 - Unknown Date Reviewed: 02/28/2024 Reviewed by: India Michel MA - Fully Assessed Prescriptions as of 05/08/2024 - predniSONE (DELTASONE) 50 mg Take this medication, every 6 hours, for 3 doses for prevention of contrast MR (gadolinium] allergy. Take 50 mg, 13 hours, then 7 hours, then 1 hour, prior to the MRI - diphenhydrAMINE HCL 50 mg tablet Medication, to prevent allergic reaction, to MR contrast (gadolinium]. Take 50 mg, 1 (ONE) hour prior to MRI - traMADol (ULTRAM) 50 mg tablet Take 1 tablet by mouth two times a day for 180 days. - sertraline (ZOLOFT) 50 mg tablet Take 1 tablet by mouth once daily. - sertraline (ZOLOFT) 25 mg tablet Take 1 tablet by mouth once daily. - cranberry fruit (CRANBERRY) 450 mg tab Take 1 tablet by mouth once daily. - melatonin 5 mg tablet Take 1 tablet by mouth daily at bedtime. - methocarbamol (ROBAXIN) 500 mg tablet Take 1 tablet by mouth three times a day as needed. - ipratropium 20 mcg-albuterol 100 mcg (COMBIVENT RESPIMAT) 20-100 mcg/actuation inhaler Inhale 1 Puff as instructed every 6 hours as needed for wheezing/shortness of breath. - atorvastatin (LIPITOR) 20 mg tablet Take 1 tablet by mouth once daily. - omeprazole (PRILOSEC) 40 mg capsule Take 1 capsule by mouth once daily. - mirabegron (MYRBETRIQ) 50 mg Tb24 Take 1 tablet by mouth once daily. - conjugated estrogens (PREMARIN) vaginal cream Use 0.5 g vaginally two times a week. - LINZESS 72 mcg capsule Take 1 capsule by mouth once daily. - dicyclomine (BENTYL) 20 mg tablet Take 1 tablet by mouth w MEALS. - ondansetron orally disintegrating (ZOFRAN ODT) 4 mg disintegrating tablet Take 1 tablet by mouth as needed. - carvedilol (COREG) 3.125 mg tablet Take 1 tablet by mouth twice daily with meals. - Multivitamin capsule Take 1 capsule by mouth once daily. - aspirin 81 mg chewable tablet Take 1 tablet by mouth once daily. 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 She will push over MRA Neck /MRI spine images. Once received and reviewed by Dr Spears he will contact patient. Gerda Dee RN, BSN Instrument Tech [facility] Allergies As of Date: 05/02/2024 Noted Allergy Reaction ALEVE (NAPROXEN) 11/05/2015 4 - Hives 9 - Itching IODINATED CONTRAST MEDIA 11/05/2015 14 - Other: See Comments Comments: dyspnea LATEX 11/05/2015 14 - Other: See Comments Comments: blisters METHADONE 11/05/2015 16 - Unknown Date Reviewed: 02/28/2024 Reviewed by: India Michel MA - Fully Assessed Reason for Visit: Images requested MRA/MRI [Other] Prescriptions as of 05/02/2024 - predniSONE (DELTASONE) 50 mg Take this medication, every 6 hours, for 3 doses for prevention of contrast MR (gadolinium] allergy. Take 50 mg, 13 hours, then 7 hours, then 1 hour, prior to the MRI - diphenhydrAMINE HCL 50 mg tablet Medication, to prevent allergic reaction, to MR contrast (gadolinium]. Take 50 mg, 1 (ONE) hour prior to MRI - traMADol (ULTRAM) 50 mg tablet Take 1 tablet by mouth two times a day for 180 days. - sertraline (ZOLOFT) 50 mg tablet Take 1 tablet by mouth once daily. - sertraline (ZOLOFT) 25 mg tablet Take 1 tablet by mouth once daily. - cranberry fruit (CRANBERRY) 450 mg tab Take 1 tablet by mouth once daily. - melatonin 5 mg tablet Take 1 tablet by mouth daily at bedtime. - methocarbamol (ROBAXIN) 500 mg tablet Take 1 tablet by mouth three times a day as needed. - ipratropium 20 mcg-albuterol 100 mcg (COMBIVENT RESPIMAT) 20-100 mcg/actuation inhaler Inhale 1 Puff as instructed every 6 hours as needed for wheezing/shortness of breath. - atorvastatin (LIPITOR) 20 mg tablet Take 1 tablet by mouth once daily. - omeprazole (PRILOSEC) 40 mg capsule Take 1 capsule by mouth once daily. - mirabegron (MYRBETRIQ) 50 mg Tb24 Take 1 tablet by mouth once daily. - conjugated estrogens (PREMARIN) vaginal cream Use 0.5 g vaginally two times a week. - LINZESS 72 mcg capsule Take 1 capsule by mouth once daily. - dicyclomine (BENTYL) 20 mg tablet Take 1 tablet by mouth w MEALS. - ondansetron orally disintegrating (ZOFRAN ODT) 4 mg disintegrating tablet Take 1 tablet by mouth as needed. - carvedilol (COREG) 3.125 mg tablet Take 1 tablet by mouth twice daily with meals. - Multivitamin capsule Take 1 capsule by mouth once daily. - aspirin 81 mg chewable tablet Take 1 tablet by mouth once daily. 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] 03/21/2022 Grief [F43.21] 05/25/2022 Encounter Status:Closed by GERDA DEE on 05/02/24 Normal [facility] MRA Neck without Contraston 04-29-2024 MRA Neck without Contrast [facility] [address] [place] [id number] MRA Neck without Contrast MR#: [id number] Acct: [id number] Name: LEELA CARVAJAL Rep #: [id number] : 1965 F 59 From: Tres Geronimo MD PCP: Josi Garcia MD Status: REG CLI Study: MRA Neck without Contrast Date of Exam: Exam# [id number] Ordering Dr: MARIAN WHYTE PROCEDURE: MRA NECK WITHOUT CONTRAST REASON FOR EXAM: Memory loss; slurred speech. TECHNIQUE: Neck MRA using 2D and 3D Time of Flight technique and with intravenous gadolinium-based contrast. COMPARISON: None. FINDINGS: Flow: 2D Time of Flight images demonstrate antegrade carotid and vertebral artery flow. Carotids: The bilateral common carotid arteries are widely patent. Atherosclerosis of the bilateral internal carotid arteries. Right ICA stenosis (NASCET): 50 % Left ICA stenosis (NASCET): 75 % Vertebrals: No signal within the left vertebral artery which may represent occlusion. Normal right vertebral artery. Arch: Not fully visualized. MRI/MRA Neck without Contrast IMPRESSION: No signal within the left vertebral artery which may represent occlusion of unclear chronicity. Atherosclerosis of the bilateral internal carotid arteries. Details above. Reading Location: [facility] CC: MINI WHYTE; Josi Garcia MD Laundry Aide: Signed Normal [facility] Magnetic resonance imaging r eportOrdered By: Victor Manuel Bland on 04-29-2024 Study report [facility] [address] [place], [place] [address] Spine Cervical W/WO Contrast MR#: [id number] Acct: [id number] Name: LEELA CARVAJAL Rep #: [id number] : 1965 F 59 From: Zain Bland DO PCP: Josi Garcia MD Status: REG CLI Study:Spine Cervical W/WO Contrast Date of E xam: 04/29/24 Exam# [id number] Ordering Dr: MINI DE OLIVEIRA PROCEDURE: SPINE CERVICAL W/WO CONTRAST REASON FOR EXAM: Cervical surgery. Pain. TECHNIQUE: Cervical spine MRI without and with intravenous gadolinium-based contrast. CONTRAST: 15 cc Clariscan COMPARISON: None. FINDINGS: There is anterior cervical spinal fusion from C5-C7 with anterior cervical spinal fusion plate and screws with associated susceptibility artifact. There is severe disc space narrowing with endplate spurring from C3-C5 and moderate disc space narrowing with endplate spurring at C7-T1. There is straightening of the cervical lordosis with mild reversal. There is a linear area of hyperintense T2/STIR signal within the central cervical spinal cord at the level of C6-C7 likely related to cervical myelomalacia. There is atrophy of the paraspinous musculature. No acute fracture or subluxation is present. There is a circumscribed nodule involving the left thyroid lobe measuring 8 mm. Individual levels: C2-3: Mild disc osteophyte complex and facet arthropathy with no significant central canal stenosis or neural foraminal narrowing. C3-4: Disc osteophyte complex results in flattening of the ventral thecal sac with moderate central canal stenosis. Facet/uncovertebral changes are identified with severe bilateral neural foraminal narrowing. C4-5: Disc osteophyte complex results in flattening of the ventral thecal sac with moderate central canal stenosis. Facet/uncovertebral changes are identified with mild bilateral neural foraminal narrowing. C5-6: Postsurgical changes. Mild posterior endplate spurring with mild central canal stenosis. No significant neural foraminal narrowing. C6-7: Postsurgical changes. No disc herniation, central canal stenosis, or significant neural foraminal narrowing. C7-T1: Mild disc osteophyte complex with no significant central canal stenosis. Mild bilateral neural foraminal narrowing is present. Postcontrast images: No suspicious contrast enhancement. MRI/Spine Cervical W/WO Contrast IMPRESSION: 1. Postsurgical changes from anterior cervical spinal fusion from C5-C7 with associated susceptibility artifact. There is mild central canal stenosis at C5-C6. 2. Multilevel degenerative disc disease and spondylosis with moderate central canal stenosis from C3-C5 and varying degrees of neural foraminal narrowing which is on a severe basis at C3-C4. 3. Linear hyperintense signal within the central spinal cord at the level of C6-C7 likely relates to cervical myelomalacia. 4. Nodule involving the left thyroid lobe measuring 8 mm. Recommend thyroid ultrasound on an outpatient basis. Reading Location: [facility] CC: MINI WHYTE; Josi Garcia MD ~ Laundry Aide: Signed [facility] Magnetic resonance imaging r eportOrdered By: Tres Geronimo on 04-29-2024 Study report [facility] [address] [place] [address] MRA Neck without Contrast MR#: [id number] Acct: [id number] Name: LEELA CARVAJAL Rep #: [id number] : 1965 F 59 From: Gurpreet Geronimo MD PCP: Josi Garcia MD Status: REG CLI Study:MRA Neck without Contrast Date of Exam: 04/29/24 Exam# [id number] Ordering Dr: MINI DE OLIVEIRA PROCEDURE: MRA NECK WITHOUT CONTRAST REASON FOR EXAM: Memory loss; slurred speech. TECHNIQUE: Neck MRA using 2D and 3D Time of Flight technique and with intravenous gadolinium-based contrast. COMPARISON: None. FINDINGS: Flow: 2D Time of Flight images demonstrate antegrade carotid and vertebral artery flow. Carotids: The bilateral common carotid arteries are widely patent. Atherosclerosis of the bilateral internal carotid arteries. Right ICA stenosis (NASCET): 50 % Left ICA stenosis (NASCET): 75 % Vertebrals: No signal within the left vertebral artery which may represent occlusion. Normal right vertebral artery. Arch: Not fully visualized. MRI/MRA Neck without Contrast IMPRESSION: No signal within the left vertebral artery which may represent occlusion of unclear chronicity. Atherosclerosis of the bilateral internal carotid arteries. Details above. Reading Location: [facility] CC: MINI WHYTE; Josi Garcia MD ~ Laundry Aide: Signed [facility] Spine Cervical W/WO Contrast on 04-29-2024 Spine Cervical W/WO Contrast [facility] [address] [place] [id number] Spine Cervical W/WO Contrast MR#: [id number] Acct: [id number] Name: LEELA CARVAJAL Rep #: [id number] : 1965 F 59 From: [facility] PCP: Josi Garcia MD Status: REG CLI Study: Spine Cervical W/WO Contrast Date of Exam: Exam# [id number] Ordering Dr: MARIAN WHYTE PROCEDURE: SPINE CERVICAL W/WO CONTRAST REASON FOR EXAM: Cervical surgery. Pain. TECHNIQUE: Cervical spine MRI without and with intravenous gadolinium-based contrast. CONTRAST: 15 cc Clariscan COMPARISON: None. FINDINGS: There is anterior cervical spinal fusion from C5-C7 with anterior cervical spinal fusion plate and screws with associated susceptibility artifact. There is severe disc space narrowing with endplate spurring from C3-C5 and moderate disc space narrowing with endplate spurring at C7-T1. There is straightening of the cervical lordosis with mild reversal. There is a linear area of hyperintense T2/STIR signal within the central cervical spinal cord at the level of C6-C7 likely related to cervical myelomalacia. There is atrophy of the paraspinous musculature. No acute fracture or subluxation is present. There is a circumscribed nodule involving the left thyroid lobe measuring 8 mm. Individual levels: C2-3: Mild disc osteophyte complex and facet arthropathy with no significant central canal stenosis or neural foraminal narrowing. C3-4: Disc osteophyte complex results in flattening of the ventral thecal sac with moderate central canal stenosis. Facet/uncovertebral changes are identified with severe bilateral neural foraminal narrowing. C4-5: Disc osteophyte complex results in flattening of the ventral thecal sac with moderate central canal stenosis. Facet/uncovertebral changes are identified with mild bilateral neural foraminal narrowing. C5-6: Postsurgical changes. Mild posterior endplate spurring with mild central canal stenosis. No significant neural foraminal narrowing. C6-7: Postsurgical changes. No disc herniation, central canal stenosis, or significant neural foraminal narrowing. C7-T1: Mild disc osteophyte complex with no significant central canal stenosis. Mild bilateral neural foraminal narrowing is present. Postcontrast images: No suspicious contrast enhancement. MRI/Spine Cervical W/WO Contrast IMPRESSION: 1. Postsurgical changes from anterior cervical spinal fusion from C5-C7 with associated susceptibility artifact. There is mild central canal stenosis at C5-C6. 2. Multilevel degenerative disc disease and spondylosis with moderate central canal stenosis from C3-C5 and varying degrees of neural foraminal narrowing which is on a severe basis at C3-C4. 3. Linear hyperintense signal within the central spinal cord at the level of C6-C7 likely relates to cervical myelomalacia. 4. Nodule involving the left thyroid lobe measuring 8 mm. Recommend thyroid ultrasound on an outpatient basis. Reading Location: [place] CC: MINI WHYTE; Josi Garcia MD Laundry Aide: Signed [facility] 04-11-2024 [facility] Telephone ([facility]) DIOR CARVAJAL ([id number]) 1965 F Date Time Provider Department 04/11/24 MINI WHYTE During your visit today, we recorded the following information about you: Marc Pina RN 04/11/2024 1:42 PM Signed Spoke with RN at patient's nursing facility. She states that the patient is scheduled for 04/28/24 for her MRI and MRA. She has requested they push images over the [facility] after they are completed. Will add patient on for provider phone call once images are received. Chris Acevedo 05/01/2024 4:21 PM Signed Imaging results received via fax, please see scanned documents. [place] Allergies As of Date: 04/11/2024 Noted Allergy Reaction ALEVE (NAPROXEN) 11/05/2015 4 - Hives 9 - Itching IODINATED CONTRAST MEDIA 11/05/2015 14 - Other: See Comments Comments: dyspnea LATEX 11/05/2015 14 - Other: See Comments Comments: blisters METHADONE 11/05/2015 16 - Unknown Date Reviewed: 02/28/2024 Reviewed by: India Michel MA - Fully Assessed Reason for Visit: Patient Update [1234] Prescriptions as of 05/02/2024 - predniSONE (DELTASONE) 50 mg Take this medication, every 6 hours, for 3 doses for prevention of contrast MR (gadolinium] allergy. Take 50 mg, 13 hours, then 7 hours, then 1 hour, prior to the MRI - diphenhydrAMINE HCL 50 mg tablet Medication, to prevent allergic reaction, to MR contrast (gadolinium]. Take 50 mg, 1 (ONE) hour prior to MRI - traMADol (ULTRAM) 50 mg tablet Take 1 tablet by mouth two times a day for 180 days. - sertraline (ZOLOFT) 50 mg tablet Take 1 tablet by mouth once daily. - sertraline (ZOLOFT) 25 mg tablet Take 1 tablet by mouth once daily. - cranberry fruit (CRANBERRY) 450 mg tab Take 1 tablet by mouth once daily. - melatonin 5 mg tablet Take 1 tablet by mouth daily at bedtime. - methocarbamol (ROBAXIN) 500 mg tablet Take 1 tablet by mouth three times a day as needed. - ipratropium 20 mcg-albuterol 100 mcg (COMBIVENT RESPIMAT) 20-100 mcg/actuation inhaler Inhale 1 Puff as instructed every 6 hours as needed for wheezing/shortness of breath. - atorvastatin (LIPITOR) 20 mg tablet Take 1 tablet by mouth once daily. - omeprazole (PRILOSEC) 40 mg capsule Take 1 capsule by mouth once daily. - mirabegron (MYRBETRIQ) 50 mg Tb24 Take 1 tablet by mouth once daily. - conjugated estrogens (PREMARIN) vaginal cream Use 0.5 g vaginally two times a week. - LINZESS 72 mcg capsule Take 1 capsule by mouth once daily. - dicyclomine (BENTYL) 20 mg tablet Take 1 tablet by mouth w MEALS. - ondansetron orally disintegrating (ZOFRAN ODT) 4 mg disintegrating tablet Take 1 tablet by mouth as needed. - carvedilol (COREG) 3.125 mg tablet Take 1 tablet by mouth twice daily with meals. - Multivitamin capsule Take 1 capsule by mouth once daily. - aspirin 81 mg chewable tablet Take 1 tablet by mouth once daily. 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 Bushra was not aware of the need for pre-medication and read her the instructions for Prednisone 50mg (x 3 doses starting 13 hours before, 7 hours before and 1 hour before) and Benadryl 50mg x1 one hour before. Bushra is questioning why scans can not be arranged to be done at [facility] as transportation may be an issue. She is going to check and call me back later today Gerda Dee RN, BSN Instrument Tech [facility] Gerda Dee, ALMA 04/01/2024 11:58 AM Signed Received a call from nurse Cindy. They are unable to arrange transportation to [place] for her scans tomorrow but will arrange for them to be done at [facility]. I faxed the orders for xray c spine, MRI C spine, MRA brain/carotid to [facility] fax [phone] along with pre medication orders for prednisone and benadryl. I also faxed her appointment for May. Transmission was good. Someone from the facility will contact me with the scan dates, then we need to call [place] radiology to have images pushed over. Due to some issues with transportation we discussed possibly doing a phone call follow up to discuss results. Patient does not have My Chart and Cindy was going to talk to social services technician about assisting with set up. Appointments in May for MRI main campus and visit same day. Gerda Dee, RN, BSN Instrument Tech [facility] Allergies As of Date: 04/01/2024 Noted Allergy Reaction ALEVE (NAPROXEN) 11/05/2015 4 - Hives 9 - Itching IODINATED CONTRAST MEDIA 11/05/2015 14 - Other: See Comments Comments: dyspnea LATEX 11/05/2015 14 - Other: See Comments Comments: blisters METHADONE 11/05/2015 16 - Unknown Date Reviewed: 02/28/2024 Reviewed by: India Michel MA - Fully Assessed Reason for Visit: Confirm appt for 04/02/24 [Other] Prescriptions as of 04/01/2024 - predniSONE (DELTASONE) 50 mg Take this medication, every 6 hours, for 3 doses for prevention of contrast MR (gadolinium] allergy. Take 50 mg, 13 hours, then 7 hours, then 1 hour, prior to the MRI - diphenhydrAMINE HCL 50 mg tablet Medication, to prevent allergic reaction, to MR contrast (gadolinium]. Take 50 mg, 1 (ONE) hour prior to MRI - traMADol (ULTRAM) 50 mg tablet Take 1 tablet by mouth two times a day for 180 days. - sertraline (ZOLOFT) 50 mg tablet Take 1 tablet by mouth once daily. - sertraline (ZOLOFT) 25 mg tablet Take 1 tablet by mouth once daily. - cranberry fruit (CRANBERRY) 450 mg tab Take 1 tablet by mouth once daily. - melatonin 5 mg tablet Take 1 tablet by mouth daily at bedtime. - methocarbamol (ROBAXIN) 500 mg tablet Take 1 tablet by mouth three times a day as needed. - ipratropium 20 mcg-albuterol 100 mcg (COMBIVENT RESPIMAT) 20-100 mcg/actuation inhaler Inhale 1 Puff as instructed every 6 hours as needed for wheezing/shortness of breath. - atorvastatin (LIPITOR) 20 mg tablet Take 1 tablet by mouth once daily. - omeprazole (PRILOSEC) 40 mg capsule Take 1 capsule by mouth once daily. - mirabegron (MYRBETRIQ) 50 mg Tb24 Take 1 tablet by mouth once daily. - conjugated estrogens (PREMARIN) vaginal cream Use 0.5 g vaginally two times a week. - LINZESS 72 mcg capsule Take 1 capsule by mouth once daily. - dicyclomine (BENTYL) 20 mg tablet Take 1 tablet by mouth w MEALS. - ondansetron orally disintegrating (ZOFRAN ODT) 4 mg disintegrating tablet Take 1 tablet by mouth as needed. - carvedilol (COREG) 3.125 mg tablet Take 1 tablet by mouth twice daily with meals. - Multivitamin capsule Take 1 capsule by mouth once daily. - aspirin 81 mg chewable tablet Take 1 tablet by mouth once daily. 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] 03/21/2022 Grief [F43.21] 05/25/2022 Encounter Status:Closed by GERDA DEE on 04/01/24 [facility] DIOR CARVAJAL ([id number]) 1965 F Date Time Provider Department 03/31/24 MINI WHYTE [facility] During your visit today, we recorded the following information about you: India Chi RN 03/31/2024 3:32 PM Signed Called and spoke with nurse Barboza at [facility], they were unaware of the appointments this week and next, she took down all information and will update her records. India Chi RN Allergies As of Date: 03/31/2024 Noted Allergy Reaction ALEVE (NAPROXEN) 11/05/2015 4 - Hives 9 - Itching IODINATED CONTRAST MEDIA 11/05/2015 14 - Other: See Comments Comments: dyspnea LATEX 11/05/2015 14 - Other: See Comments Comments: blisters METHADONE 11/05/2015 16 - Unknown Date Reviewed: 02/28/2024 Reviewed by: India Michel MA - Fully Assessed Reason for Visit: Instrument Tech - Other [3602] Prescriptions as of 03/31/2024 - predniSONE (DELTASONE) 50 mg Take this medication, every 6 hours, for 3 doses for prevention of contrast MR (gadolinium] allergy. Take 50 mg, 13 hours, then 7 hours, then 1 hour, prior to the MRI - diphenhydrAMINE HCL 50 mg tablet Medication, to prevent allergic reaction, to MR contrast (gadolinium]. Take 50 mg, 1 (ONE) hour prior to MRI - traMADol (ULTRAM) 50 mg tablet Take 1 tablet by mouth two times a day for 180 days. - sertraline (ZOLOFT) 50 mg tablet Take 1 tablet by mouth once daily. - sertraline (ZOLOFT) 25 mg tablet Take 1 tablet by mouth once daily. - cranberry fruit (CRANBERRY) 450 mg tab Take 1 tablet by mouth once daily. - melatonin 5 mg tablet Take 1 tablet by mouth daily at bedtime. - methocarbamol (ROBAXIN) 500 mg tablet Take 1 tablet by mouth three times a day as needed. - ipratropium 20 mcg-albuterol 100 mcg (COMBIVENT RESPIMAT) 20-100 mcg/actuation inhaler Inhale 1 Puff as instructed every 6 hours as needed for wheezing/shortness of breath. - atorvastatin (LIPITOR) 20 mg tablet Take 1 tablet by mouth once daily. - omeprazole (PRILOSEC) 40 mg capsule Take 1 capsule by mouth once daily. - mirabegron (MYRBETRIQ) 50 mg Tb24 Take 1 tablet by mouth once daily. - conjugated estrogens (PREMARIN) vaginal cream Use 0.5 g vaginally two times a week. - LINZESS 72 mcg capsule Take 1 capsule by mouth once daily. - dicyclomine (BENTYL) 20 mg tablet Take 1 tablet by mouth w MEALS. - ondansetron orally disintegrating (ZOFRAN ODT) 4 mg disintegrating tablet Take 1 tablet by mouth as needed. - carvedilol (COREG) 3.125 mg tablet Take 1 tablet by mouth twice daily with meals. - Multivitamin capsule Take 1 capsule by mouth once daily. - aspirin 81 mg chewable tablet Take 1 tablet by mouth once daily. 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 [place], [place], [id number] Ferritin measurementOrdered By: Josi Garcia on 03-31-2024 Ferritin [Mass/Vol] 16 ng/mL 8-252 [facility] Ironon 03-31-2024 Iron [Mass/Vol] 35 ug/dL Low 50-170 [facility] Comment on above: Order Comment: 510.1 Performed By: #### L 503.6550, [id number] #### [facility] [address] [place], [place], [id number] Iron (Unsp spec) [Mass/Mass] Ordered By: Josi Garcia on 03-31-2024 Iron [Mass/Vol] 35 ug/dL Low 50-170 [facility] 32-HY-Gqswkze DOrdered By: Tex Garcia on 03-28-2024 Vitamin D 25-Hydroxy 26.4 ng/mL [facility] Comment on above: Vitamin D 25(OH) Sta tus Range Deficiency <20 ng/mL (50nmol/L) Insufficiency 20 - 30 ng/mL (50 - 75 nmol/L) Sufficiency 30 - 100 ng/mL (75 - 250 nmol/L) Toxicity >100 ng/mL (>250 nmol/L) Vitamin B12 measurementOrder ed By: Josi Garcia on 03-28-2024 Cobalamin (Vitamin B12) [Mass/Vol] 290 pg/mL Normal 211-911 [facility] Comment on above: Order Comment: 510.1 Performed By: #### L 503.6550, [id number] #### [facility] [address] [place], [place], [id number] Vitamin D,25 Hydroxyon 03-28 Vitamin D 25-OH 26.4 ng/mL Normal [facility] Comment on above: Order Comment: 510.1 Result Comment: Kemi min D 25(OH) Status Range Deficiency <20 ng/mL (50nmol/L) Insufficiency 20 - 30 ng/mL (50 - 75 nmol/L) Sufficiency 30 - 100 ng/mL (75 - 250 nmol/L) Toxicity >100 ng/mL (>250 nmol/L) Performed By: #### L 503.6550, [id number] #### [facility] [address] [place], [place], [id number] Absolute neutrophil countOrd ered By: Josi Garcia on 03-27-2024 Neutrophils (Bld) [#/Vol] 4.8 10*3/uL 2.0-7.7 [facility] Basic Metabolic Profile (BMP )on 03-27-2024 BUN/CRE 23.0 RATIO High 10-20 [facility] Comment on above: Order Comment: 510.1 Performed By: #### L 503.6550, [id number] #### [facility] [address] [place], [place], [id number] CA,Total 9.6 mg/dL Normal 8.5-10.1 [facility] Comment on above: Order Comment: 510.1 Performed By: #### L 503.6550, [id number] #### [facility] [address] [place], [address] Chloride [Moles/Vol] 107 mmol/L Normal 98-107 [facility] Comment on above: Order Comment: 510.1 Performed By: #### L [id number], [id number] #### [facility] [address] [place], [address] CO2 [Moles/Vol] 30.0 mmol/L Normal 21.0-32.0 [facility] Comment on above: Order Comment: 510.1 Performed By: #### L [id number], [id number] #### [facility] [address] [place], [address] Creatinine [Mass/Vol] 0.48 mg/dL Low 0.55-1.02 [facility] Comment on above: Order Comment: 510.1 Result Comment: The validity of the calculated GFR GFRAA in patients over 70 years has not been determined. Clinical correlation is essential. Performed By: #### L [id number], L503.6150 #### [facility] [address] [place], [address] EST GFR - AA 170 mL/min Normal >60 [facility] Comment on above: Order Comment: 510.1 Result Comment: Afri can Niuean GFR Calc Performed By: #### L [id number], L503.6150 #### [facility] [address] [place], [address] GAP 4 Low 5-15 [facility] Comment on above: Order Comment: 510.1 Performed By: #### L [id number], [id number] #### [facility] [address] [place], [address] GFR/1.73 sq M.predicted among non-blacks MDRD (S/P/Bld) [Vol rate/Area] 141 mL/min/{1.73_m2} Normal >60 [facility] Comment on above: Order Comment: 510.1 Result Comment: Non- GFR Calc Performed By: #### L 503.6550, [id number] #### [facility] [address] [place], [address] Glucose [Mass/Vol] 96 mg/dL Normal 74-[address] [facility] Comment on above: Order Comment: 510.1 Performed By: #### L 503.6550, [id number] #### [facility] [address] [place], [address] Potassium [Moles/Vol] 3.8 mmol/L Normal 3.5-5.1 [facility] Comment on above: Order Comment: 510.1 Performed By: #### L 503.6550, [id number] #### [facility] [address] [place], [address] Sodium [Moles/Vol] 141 mmol/L Normal 136-[address] [facility] Comment on above: Order Comment: 510.1 Performed By: #### L 503.6550, [id number] #### [facility] [address] [place], [address] Urea nitrogen [Mass/Vol] 11 mg/dL Normal 7-18 [facility] Comment on above: Order Comment: 510.1 Performed By: #### L 503.6550, [id number] #### [facility] [address] [place], [address] Basophil percentageOrdered B y: Josi Garcia on 03-27-2024 Basophils/100 WBC (Bld) 0.5 % 0-1 [facility] Blood urea nitrogen (BUN)/cr eatinine ratioOrdered By: Josi Garcia on 03-27-2024 Urea nitrogen/Creatinine [Mass ratio] 23.0 mg/mg High 10-20 [facility] CBC W/Diff, Automatedon Absolute Lymph 2.32 X10 3/uL Normal 0.83-4.51 [facility] Comment on above: Order Comment: 510-1 Performed By: #### L 500.4100, L100.0100, L500.2500, L501.5200, L501.9520, L501.9985 #### [facility] [address] [place], [address] Absolute Neut 4.8 X10 3/uL Normal 2.0-7.7 [facility] Comment on above: Order Comment: 510-1 Performed By: #### L 500.4100, L100.0100, L500.2500, L501.5200, L501.9520, L501.9985 #### [facility] [address] [place], [address] Basophils/100 WBC (Bld) 0.5 % Normal 0-1 [facility] Comment on above: Order Comment: 510-1 Performed By: #### L 500.4100, L100.0100, L500.2500, L501.5200, L501.9520, L501.9985 #### [facility] [address] [place], [address] Eosinophils/100 WBC (Bld) 1.7 % Normal 0-5 [facility] Comment on above: Order Comment: 510-1 Performed By: #### L 500.4100, L100.0100, L500.2500, L501.5200, L501.9520, L501.9985 #### [facility] [address] [place], [address] Erythrocyte distribution width (RBC) [Ratio] 13.1 % Normal 11.6-14.6 [facility] Comment on above: Order Comment: 510-1 Performed By: #### L 500.4100, L100.0100, L500.2500, L501.5200, L501.9520, L501.9985 #### [facility] [address] [place], [address] Hematocrit (Bld) [Volume fraction] 34.1 % Low 37-47 [facility] Comment on above: Order Comment: 510-1 Performed By: #### L 500.4100, L100.0100, L500.2500, L501.5200, L501.9520, L501.9985 #### [facility] [address] [place], [address] Hemoglobin (Bld) [Mass/Vol] 10.6 g/dL Low 12.0-15.0 [facility] Comment on above: Order Comment: 510-1 Performed By: #### L 500.4100, L100.0100, L500.2500, L501.5200, L501.9520, L501.9985 #### [facility] [address] [facility] [place], [address] IG% 0.400 Normal 0.0-0.9 [facility] Comment on above: Order Comment: 510-1 Result Comment: IG% - Immature Granulocytes (promyelocytes, myelocytes and metamyelocytes) > 1% indicates that a LEFT SHIFT is Present. Performed By: #### L 500.4100, L100.0100, L500.2500, L501.5200, L501.9520, L501.9985 #### [facility] [address] [facility] [place], [address] Lymphocytes/100 WBC (Bld) 29.8 % Normal 19-41 [facility] Comment on above: Order Comment: 510-1 Performed By: #### L 500.4100, L100.0100, L500.2500, L501.5200, L501.9520, L501.9985 #### [facility] [address] [place], [address] MCH (RBC) [Entitic mass] 28.7 pg Normal 27.0-32.0 [facility] Comment on above: Order Comment: 510-1 Performed By: #### L 500.4100, L100.0100, L500.2500, L501.5200, L501.9520, L501.9985 #### [facility] [address] [place], [address] MCHC (RBC) [Mass/Vol] 31.1 g/dL Low 32-36 [facility] Comment on above: Order Comment: 510-1 Performed By: #### L 500.4100, L100.0100, L500.2500, L501.5200, L501.9520, L501.9985 #### [facility] [address] [place], [address] MCV (RBC) [Entitic vol] 92.4 fL Normal 81-99 [facility] Comment on above: Order Comment: 510-1 Performed By: #### L 500.4100, L100.0100, L500.2500, L501.5200, L501.9520, L501.9985 #### [facility] [address] [place], [address] Monocytes/100 WBC (Bld) 6.3 % Normal 0-10 [facility] Comment on above: Order Comment: 510-1 Performed By: #### L 500.4100, L100.0100, L500.2500, L501.5200, L501.9520, L501.9985 #### [facility] [address] [place], [address] Neutrophils/100 WBC (Bld) 61.3 % Normal 47-70 [facility] Comment on above: Order Comment: 510-1 Performed By: #### L 500.4100, L100.0100, L500.2500, L501.5200, L501.9520, L501.9985 #### [facility] [address] [place], [address] Nucleated RBC (Bld) [#/Vol] 0 10*3/uL Normal 0-5 [facility] Comment on above: Order Comment: 510-1 Performed By: #### L 500.4100, L100.0100, L500.2500, L501.5200, L501.9520, L501.9985 #### [facility] [address] [place], [address] Platelet mean volume (Bld) [Entitic vol] 9.6 fL Normal 6.2-12.0 [facility] Comment on above: Order Comment: 510-1 Performed By: #### L 500.4100, L100.0100, L500.2500, L501.5200, L501.9520, L501.9985 #### [facility] [address] [place], [address] Platelets (Bld) [#/Vol] 283 10*3/uL Normal 150-450 [facility] Comment on above: Order Comment: 510-1 Performed By: #### L 500.4100, L100.0100, L500.2500, L501.5200, L501.9520, L501.9985 #### [facility] [address] [place], [address] RBC (Bld) [#/Vol] 3.69 10*6/uL Low 4.2-5.4 [facility] Comment on above: Order Comment: 510-1 Performed By: #### L 500.4100, L100.0100, L500.2500, L501.5200, L501.9520, L501.9985 #### [facility] [address] [place], [address] RDW SD 44.1 fl High 35.1-43.9 [facility] Comment on above: Order Comment: 510-1 Performed By: #### L 500.4100, L100.0100, L500.2500, L501.5200, L501.9520, L501.9985 #### [facility] [address] [place], [address] WBC (Bld) [#/Vol] 7.8 10*3/uL Normal 4.4-11.[address] [facility] Comment on above: Order Comment: 510-1 Performed By: #### L 500.4100, L100.0100, L500.2500, L501.5200, L501.9520, L501.9985 #### [facility] [address] [place], [address] Carbon dioxide measurementOr dered By: Josi Garcia on 03-27-2024 CO2 [Moles/Vol] 30.0 mmol/L 21.0-32.0 [facility] Chloride measurementOrdered By: Josi Garcia on 03-27-2024 Chloride [Moles/Vol] 107 mmol/L 98-107 [facility] Eosinophil percentageOrdered By: Josi Garcia on 03-27-2024 Eosinophils/100 WBC (Bld) 1.7 % 0-5 [facility] Erythrocyte distribution wid th ratioOrdered By: Josi Garcia on 03-27-2024 Erythrocyte distribution width (RBC) [Ratio] 13.1 % 11.6-14.6 [facility] Erythrocyte distribution wid th standard deviationOrdered By: Josi Garcia on 03-27-2024 Erythrocyte distribution width (RBC) [Entitic vol] 44.1 fL High 35.1-43.9 [facility] Estimated glomerular filtrat ion rate (GFR) AmericanOrdered By: Josi Garcia on 03-27-2024 Estimated GFR (MDRD) Amer 170 mL/min >60 [facility] Comment on above: GFR Calc Glomerular filtration rate ( GFR) estimationOrdered By: Josi Garcia on 03-27-2024 Estimated GFR (MDRD) Non-Af Amer 141 mL/min >60 [facility] Comment on above: Non- GFR Calc Glucose measurementOrdered B y: Josi Garcia on 03-27-2024 Glucose [Mass/Vol] 96 mg/dL 74-[address] [facility] Hematocrit Auto (Bld) [Volum e fraction]Ordered By: Josi Garcia on 03-27-2024 Hematocrit (Bld) [Volume fraction] 34.1 % Low 37-47 [facility] Hemoglobin A1con 03-27-2024 HbA1c (Bld) [Mass fraction] 5.4 % Normal 3.8-5.6 [facility] Comment on above: Order Comment: 510.1 Result Comment: Norm al < 5.7 % Prediabetic 5.7 - 6.4 % Diabetic >or= 6.5 % Please note range changes. Performed By: #### L 503.6550, L503.6150 #### [facility] [address] [place], [address] Hemoglobin A1c percentageOrd ered By: Josi Garcia on 03-27-2024 HbA1c (Bld) [Mass fraction] 5.4 % 3.8-5.6 [facility] Comment on above: Normal < 5.7 % Predi abetic 5.7 - 6.4 % Diabetic >or= 6.5 % Please note range changes. Hemoglobin measurementOrdere d By: Josi Garcia on 03-27-2024 Hemoglobin (Bld) [Mass/Vol] 10.6 g/dL Low 12.0-15.0 [facility] High density lipoprotein (HD L) measurementOrdered By: Josi Garcia on 03-27-2024 Cholesterol in HDL [Mass/Vol] 61 mg/dL >40 [facility] Comment on above: The drugs N-Acetylcy steine and Metamizole may falsely depress this assay. Reference Range HDL <40 mg/dL Low HDL Cholesterol HDL >or= 60 mg/dL High HDL Cholesterol Immature granulocytes/100 WB C Auto (Bld)Ordered By: Josi Garcia on 03-27-2024 Immature granulocytes/100 WBC (Bld) 0.400 % 0.0-0.9 [facility] Comment on above: IG% - Immature Granu locytes (promyelocytes, myelocytes and metamyelocytes) > 1% indicates that a LEFT SHIFT is Present. Lipid Profileon 03-27-2024 Cholesterol [Mass/Vol] 150 mg/dL Normal 200 [facility] Comment on above: Order Comment: 510.1 Result Comment: <200 mg/dL Desirable 200-240 mg/dL Borderline >240 mg/dL High Risk Performed By: #### L 503.6550, L503.6150 #### [facility] [address] [place], [address] Cholesterol in HDL [Mass/Vol] 61 mg/dL Normal [facility] Comment on above: Order Comment: 510.1 Result Comment: The drugs N-Acetylcysteine and Metamizole may falsely depress this assay. Reference Range HDL <40 mg/dL Low HDL Cholesterol HDL >or= 60 mg/dL High HDL Cholesterol Performed By: #### L 503.6550, L503.6150 #### [facility] [address] [place], [address] Cholesterol in LDL [Mass/Vol] 64 mg/dL Normal 0-130 [facility] Comment on above: Order Comment: 510.1 Performed By: #### L 503.6550, L503.6150 #### [facility] [address] [place], [address] Cholesterol in VLDL [Mass/Vol] 25 mg/dL Normal 5-40 [facility] Comment on above: Order Comment: 510.1 Performed By: #### L 503.6550, L503.6150 #### [facility] [address] [place], [address] Triglyceride [Mass/Vol] 127 mg/dL Normal [facility] Comment on above: Order Comment: 510.1 Result Comment: The drugs N-Acetylcysteine and Metamizole may falsely depress this assay. Serum Triglycerides Reference Interval Normal <150 mg/dL Borderline high 150 - 199 mg/dL High 200 - 499 mg/dL Very High > or = 500 mg/dL Performed By: #### L 503.6550, L503.6150 #### [facility] [address] [place], [address] Low density lipoprotein (LDL ) cholesterol measurementOrdered By: Josi Garcia on 03-27-2024 Cholesterol in LDL [Mass/Vol] 64 mg/dL 0-130 [facility] Lymphocytes Auto (Unsp spec) [#/Vol]Ordered By: Josi Garcia on 03-27-2024 Lymphocytes (Bld) [#/Vol] 2.32 10*3/uL 0.83-4.51 [facility] Lymphocytes/100 WBC Auto (Un sp spec)Ordered By: Josi Garcia on 03-27-2024 Lymphocytes/100 WBC (Bld) 29.8 % 19-41 [facility] MCV (mean corpuscular volume ) determinationOrdered By: Josi Garcia on 03-27-2024 MCV (RBC) [Entitic vol] 92.4 fL 81-99 [facility] Magnesiumon 03-27-2024 Magnesium [Mass/Vol] 2.1 mg/dL Normal 1.6-2.6 [facility] Comment on above: Order Comment: 510.1 Performed By: #### L 503.6550, L503.6150 #### [facility] [address] [place] [address], [address] Magnesium measurementOrdered By: Josi Garcia on 03-27-2024 Magnesium [Mass/Vol] 2.1 mg/dL 1.6-2.6 [facility] Mean corpuscular hemoglobin (MCH) determinationOrdered By: Josi Garcia on 03-27-2024 MCH (RBC) [Entitic mass] 28.7 pg 27.0-32.0 [facility] Mean corpuscular hemoglobin concentration (MCHC) determinationOrdered By: Josi Garcia on 03-27-2024 MCHC (RBC) [Mass/Vol] 31.1 g/dL Low 32-36 [facility] Mean platelet volume determi nationOrdered By: Josi Garcia on 03-27-2024 Platelet mean volume (Bld) [Entitic vol] 9.6 fL 6.2-12.0 [facility] Monocyte percentageOrdered B y: Josi Garcia on 03-27-2024 Monocytes/100 WBC (Bld) 6.3 % 0-10 [facility] Neutrophil percentageOrdered By: Josi Garcia on 03-27-2024 Neutrophils/100 WBC (Bld) 61.3 % 47-70 [facility] Nucleated red blood cell per centageOrdered By: Josi Garcia on 03-27-2024 Nucleated RBC/100 WBC (Bld) [Ratio] 0 % 0-5 [facility] Platelet countOrdered By: Chuy Garcia on 03-27-2024 Platelets (Bld) [#/Vol] 283 10*3/uL 150-450 [facility] Potassium measurementOrdered By: Josi Garcia on 03-27-2024 Potassium [Moles/Vol] 3.8 mmol/L 3.5-5.1 [facility] RBC Auto (Bld) [#/Vol]Ordere d By: Josi Garcia on 03-27-2024 RBC (Bld) [#/Vol] 3.69 10*6/uL Low 4.2-5.4 [facility] Serum anion gap measurementO rdered By: Josi Garcia on 03-27-2024 Anion gap [Moles/Vol] 4 mmol/L Low 5-15 [facility] Serum or plasma calcium riky urement (mass/volume)Ordered By: Josi Garcia on 03-27-2024 Calcium [Mass/Vol] 9.6 mg/dL 8.5-10.[address] [facility] Serum or plasma cholesterol measurement (mass/volume)Ordered By: Josi Garcia on 03-27-2024 Cholesterol [Mass/Vol] 150 mg/dL <200 [facility] Comment on above: <200 mg/dL Desirable 200-240 mg/dL Borderline >240 mg/dL High Risk Serum or plasma creatinine m easurement (mass/volume)Ordered By: Josi Garcia on 03-27-2024 Creatinine [Mass/Vol] 0.48 mg/dL Low 0.55-1.02 [facility] Comment on above: The validity of the calculated GFR & GFRAA in patients over 70 years has not been determined. Clinical correlation is essential. Serum or plasma urea nitroge n measurement (mass/volume)Ordered By: Josi Garcia on 03-27-2024 Urea nitrogen [Mass/Vol] 11 mg/dL 7-18 [facility] Sodium levelOrdered By: Vanna Garcia on 03-27-2024 Sodium [Moles/Vol] 141 mmol/L 136-[address] [facility] TSH QnOrdered By: Josi ayala on 03-27-2024 Thyroid Stimulating Hormone (TSH) 2.360 uIU/mL 0.358-3.740 [facility] Thyroid Stim Hormone (TSH)on 03-27-2024 TSH 2.360 uIU/mL Normal 0.358-3.740 [facility] Comment on above: Order Comment: 510.1 Performed By: #### L 503.6550, L503.6150 #### [facility] [place], [address] Triglycerides measurementOrd ered By: Josi Garcia on 03-27-2024 Triglyceride [Mass/Vol] 127 mg/dL <199 [facility] Comment on above: The drugs N-Acetylcy steine and Metamizole may falsely depress this assay.Serum Triglycerides Reference Interval Normal <150 mg/dL Borderline high 150 - 199 mg/dL High 200 - 499 mg/dL Very High > or = 500 mg/dL Very low density lipoprotein (VLDL) cholesterol measurementOrdered By: Josi Garcia on 03-27-2024 VLDL Cholesterol 25 mg/dL 5-40 [facility] White blood cell (WBC) count Ordered By: Josi Garcia on 03-27-2024 WBC (Bld) [#/Vol] 7.8 10*3/uL 4.4-11.[address] [facility] ([facility]) DIOR CARVAJAL ([id number]) 1965 F Date Time Provider Department 03/24/24 MINI WHYTE [facility] During your visit today, we recorded the following information about you: Gerda Dee, ALMA 03/24/2024 4:19 PM Signed Contacted [facility] regarding appointments scheduled for 04/02/24 (xray, MRA) and visit with Dr Spears on 04/07. I was told she is moving today to [facility] in [facility]. I confirmed all her upcoming appointments and was told her appointment sheet will be sent with her to [place]. I called and left a message for her sister Katie regarding her 04/02 imaging studies and appointment with Dr Spears on 04/07 Patient has prednisone for her MRI scheduled for 05/26 but will need refill for the 04/02 scans. Refill sent to Dr Spears. Gerda Dee, RN, BSN Instrument Tech [facility] Allergies As of Date: 03/24/2024 Noted Allergy Reaction ALEVE (NAPROXEN) 11/05/2015 4 - Hives 9 - Itching IODINATED CONTRAST MEDIA 11/05/2015 14 - Other: See Comments Comments: dyspnea LATEX 11/05/2015 14 - Other: See Comments Comments: blisters METHADONE 11/05/2015 16 - Unknown Date Reviewed: 02/28/2024 Reviewed by: India Michel MA - Fully Assessed Reason for Visit: MRA 04/02/24- facility aware [Other] Prescriptions as of 03/24/2024 - diphenhydrAMINE HCL 50 mg tablet Medication, to prevent allergic reaction, to MR contrast (gadolinium]. Take 50 mg, 1 (ONE) hour prior to MRI - predniSONE (DELTASONE) 50 mg Take this medication, every 6 hours, for 3 doses for prevention of contrast MR (gadolinium] allergy. Take 50 mg, 13 hours, then 7 hours, then 1 hour, prior to the MRI - traMADol (ULTRAM) 50 mg tablet Take 1 tablet by mouth two times a day for 180 days. - sertraline (ZOLOFT) 50 mg tablet Take 1 tablet by mouth once daily. - sertraline (ZOLOFT) 25 mg tablet Take 1 tablet by mouth once daily. - cranberry fruit (CRANBERRY) 450 mg tab Take 1 tablet by mouth once daily. - melatonin 5 mg tablet Take 1 tablet by mouth daily at bedtime. - methocarbamol (ROBAXIN) 500 mg tablet Take 1 tablet by mouth three times a day as needed. - ipratropium 20 mcg-albuterol 100 mcg (COMBIVENT RESPIMAT) 20-100 mcg/actuation inhaler Inhale 1 Puff as instructed every 6 hours as needed for wheezing/shortness of breath. - atorvastatin (LIPITOR) 20 mg tablet Take 1 tablet by mouth once daily. - omeprazole (PRILOSEC) 40 mg capsule Take 1 capsule by mouth once daily. - mirabegron (MYRBETRIQ) 50 mg Tb24 Take 1 tablet by mouth once daily. - conjugated estrogens (PREMARIN) vaginal cream Use 0.5 g vaginally two times a week. - LINZESS 72 mcg capsule Take 1 capsule by mouth once daily. - dicyclomine (BENTYL) 20 mg tablet Take 1 tablet by mouth w MEALS. - ondansetron orally disintegrating (ZOFRAN ODT) 4 mg disintegrating tablet Take 1 tablet by mouth as needed. - carvedilol (COREG) 3.125 mg tablet Take 1 tablet by mouth twice daily with meals. - Multivitamin capsule Take 1 capsule by mouth once daily. - aspirin 81 mg chewable tablet Take 1 tablet by mouth once daily. 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 Grief [F43.21] 05/25/2022 Encounter Status:Closed by GERDA DEE on 03/24/24 [facility] Yoana 03-14-2024 CNCO Letter Text Normal [facility] Crissy 03-10-2024 CNPN Telephone ([facility]) DIOR CARVAJAL ([id number]) 1965 F Date Time Provider Department 03/10/24 MINI WHYTE [facility] During your visit today, we recorded the following information about you: Hayder Cobian Annabelle 03/10/2024 1:29 PM Signed General Call Caller : Nieves [facility] Contact or [phone] Reason for Call : Pt is scheduled to have her MRI on 05/26/2024. Nievse is calling for pt's premedication as pt is allergic to the contrast. Please also note the instruction on when pt is to take medication as Nieves thought pt take her premeds 3 days prior to the MRI appt. Patient requesting return call ? Yes Gerda Dee RN 03/11/2024 2:48 PM Signed Attempted to reach Nieves- no answer Predication order and instructions copied and faxed to Nieves fax [phone]- Transmission completed on 03/11 @ 14;42 pm Prednisone 50mg is to be given starting 13 hours before scheduled MRi (on 05/26 @ 9:10 )am, 7 hours before and 1 hour before- for a total of 3 doses of 50mg each. 3/2- 8 pm 3- 2 am 3- 8 am Gerda Dee RN, BSN Instrument Tech [facility] Allergies As of Date: 03/10/2024 Noted Allergy Reaction ALEVE (NAPROXEN) 11/05/2015 4 - Hives 9 - Itching IODINATED CONTRAST MEDIA 11/05/2015 14 - Other: See Comments Comments: dyspnea LATEX 11/05/2015 14 - Other: See Comments Comments: blisters METHADONE 11/05/2015 16 - Unknown Date Reviewed: 02/28/2024 Reviewed by: India Michel MA - Fully Assessed Reason for Visit: Orders [001] Cmt: Premedication for contrast allergy Prescriptions as of 03/11/2024 - diphenhydrAMINE HCL 50 mg tablet Medication, to prevent allergic reaction, to MR contrast (gadolinium]. Take 50 mg, 1 (ONE) hour prior to MRI - predniSONE (DELTASONE) 50 mg Take this medication, every 6 hours, for 3 doses for prevention of contrast MR (gadolinium] allergy. Take 50 mg, 13 hours, then 7 hours, then 1 hour, prior to the MRI - traMADol (ULTRAM) 50 mg tablet Take 1 tablet by mouth two times a day for 180 days. - sertraline (ZOLOFT) 50 mg tablet Take 1 tablet by mouth once daily. - sertraline (ZOLOFT) 25 mg tablet Take 1 tablet by mouth once daily. - cranberry fruit (CRANBERRY) 450 mg tab Take 1 tablet by mouth once daily. - melatonin 5 mg tablet Take 1 tablet by mouth daily at bedtime. - methocarbamol (ROBAXIN) 500 mg tablet Take 1 tablet by mouth three times a day as needed. - ipratropium 20 mcg-albuterol 100 mcg (COMBIVENT RESPIMAT) 20-100 mcg/actuation inhaler Inhale 1 Puff as instructed every 6 hours as needed for wheezing/shortness of breath. - atorvastatin (LIPITOR) 20 mg tablet Take 1 tablet by mouth once daily. - omeprazole (PRILOSEC) 40 mg capsule Take 1 capsule by mouth once daily. - mirabegron (MYRBETRIQ) 50 mg Tb24 Take 1 tablet by mouth once daily. - conjugated estrogens (PREMARIN) vaginal cream Use 0.5 g vaginally two times a week. - LINZESS 72 mcg capsule Take 1 capsule by mouth once daily. - dicyclomine (BENTYL) 20 mg tablet Take 1 tablet by mouth w MEALS. - ondansetron orally disintegrating (ZOFRAN ODT) 4 mg disintegrating tablet Take 1 tablet by mouth as needed. - carvedilol (COREG) 3.125 mg tablet Take 1 tablet by mouth twice daily with meals. - Multivitamin capsule Take 1 capsule by mouth once daily. - aspirin 81 mg chewable tablet Take 1 tablet by mouth once daily. 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 Patient resides At [facility] [phone]-let them know of any appointments. Scheduling Request - New Patient Time Frame: next available Orders: consult to neurology - cerebrovascular Provider or Provider Group: any Visit type: In person Referring: Dr. Spears Diagnosis: . Allergy to intravenous contrast media 2. Anaplastic astrocytoma (HCC) 3. Mild cognitive impairment 4. Cognitive decline 5. Occlusion and stenosis of unspecified carotid artery 6. Pathological fracture, other site, initial encounter for fracture 7. Injury of cervical spinal cord, sequela (HCC) 8. Quadriplegia (HCC Nano Ojeda 03/10/2024 5:15 PM Signed Sent staff message New CV Patient to PSS team to assist. Imaging updated in chart per internal referral. Allergies As of Date: 03/05/2024 Noted Allergy Reaction ALEVE (NAPROXEN) 11/05/2015 4 - Hives 9 - Itching IODINATED CONTRAST MEDIA 11/05/2015 14 - Other: See Comments Comments: dyspnea LATEX 11/05/2015 14 - Other: See Comments Comments: blisters METHADONE 11/05/2015 16 - Unknown Date Reviewed: 02/28/2024 Reviewed by: India Michel MA - Fully Assessed Reason for Visit: Future Appointment [256] Cmt: New Patient [place] Any Prescriptions as of 05/28/2024 - iv contrast (will be provided with radiology test) MRI Brain Inject, intravenously, once for 1 dose.No IV access, insert saline lock prior to beginning of sedation, infusion, injection of imaging exam.Discontinue saline lock post exam. If Pt. has a central line or IVAD, may access for administration according to line specific nursing protocol.Once exam is complete flush line and de-access according to line specific nursing protocol in the MR contrast administration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 visualized paranasal sinuses and mastoid air cells are clear. The orbits and extracranial soft tissues are unremarkable. IMPRESSION IMPRESSION: * Postsurgical changes from previous right frontal craniotomy for resection of right frontal mass lesion. Large area of encephalomalacia and gliosis within the right frontal lobe consistent with sequela of posttreatment changes. Currently, there is no discrete mass effect separable from postsurgical changes versus residual/recurrent disease within limitation of noncontrast study. * No acute intracranial abnormality. Age advanced moderate parenchymal volume loss. Laundry Aide: MAGUI Transcribe Date/Time: Feb 28 2024 2:24P Dictated by : LEONORA CUELLAR MD This examination was interpreted and the report reviewed and electronically signed by: LEONORA CUELLAR MD on Feb 28 2024 2:37PM EST [facility] Radiology Study observation (narrative) Abbey delong [facility] MR Brain WO contrastOrdered By: [facility] Provider on 02-28-2024 [facility] MRI BRAIN WO IVCONon 024 MRI BRAIN WO IVCON * * *Final Report* * * * * * SEE BOTTOM OF REPORT FOR ADDENDED TEXT * * * DATE OF EXAM: Feb 28 2024 2:16PM QBM 0294 - MRI BRAIN WO IVCON / PROCEDURE REASON: multiple diagnoses * * * * Physician Interpretation * * * * * * * * * * * * ORIGINAL REPORT * * * * * * * * EXAMINATION: MRI BRAIN WO IVCON CLINICAL HISTORY: A 59-year-old female with past medical history of anaplastic astrocytoma. Status post resection. Probable previous radiation treatments. Unknown chemotherapy study. TECHNIQUE: Routine noncontrast MRI protocol including diffusion images. MR imaging was performed without IV contrast due to patient's concern of contrast reaction and unclear history of severe contrast reaction to gadolinium. The ordering provider was notified verbally by Dr. Cuellar, neuroradiologist. MQ: MRBWO_2 COMPARISON: CT brain 12/25/2023 and MRA brain 03/04/2011 RESULT: Acute Change: There is no evidence of restricted diffusion to suggest an acute infarct. Postoperative changes: Redemonstrated postsurgical changes from remote right frontal craniotomy for underlying mass resection. Large area of encephalomalacia and gliosis involving the right frontal lobe. Resultant ex vacuo dilatation of the right frontal horn. Currently, there is no discrete mass effect within limitation of noncontrast study. Hemorrhage: A few punctate foci of hemosiderin staining in the right frontal lobe adjacent to the resection cavity likely secondary to postoperative blood products. There is noted a few scattered punctate remote microhemorrhages in the supratentorial brain parenchyma. Mass Lesion/ Mass Effect: No evidence of an intracranial mass or extra-axial fluid collection. No significant mass effect. Chronic Change: Scattered punctate foci of increased T2 and FLAIR signal are noted in the supratentorial white matter which is a nonspecific finding, but likely represents minimal chronic microvascular ischemia. Small area of T2/FLAIR hyperintensity in the left periventricular and left frontal subcortical white matter likely secondary to chronic ischemic changes. Remote lacunar infarct in the left thalamus. Parenchyma: There is moderate generalized parenchymal volume loss. The brain parenchyma is otherwise within normal limits of signal intensity and morphology. Ventricles: Ventriculomegaly corresponds to the degree of parenchymal volume loss. Exvacuo dilatation of the right frontal horn Skull Base: Hypothalamic and pituitary region are grossly normal. Craniocervical junction is normal. No significant marrow replacement process. Vasculature: Major intracranial arterial structures, and dural venous sinuses show typical flow void, suggesting patency by spin echo criteria. Other: The visualized paranasal sinuses and mastoid air cells are clear. The orbits and extracranial soft tissues are unremarkable. IMPRESSION: * Postsurgical changes from previous right frontal craniotomy for resection of right frontal mass lesion. Large area of encephalomalacia and gliosis within the right frontal lobe consistent with sequela of posttreatment changes. Currently, there is no discrete mass effect separable from postsurgical changes versus residual/recurrent disease within limitation of noncontrast study. * No acute intracranial abnormality. Age advanced moderate parenchymal volume loss. * * * * * * * * ADDENDUM #1 * * * * * * * * This addendum was created upon the ordering provider request. In comparison to the most recent MRI brain available on PACS completed on 03/04/2011: * Interval mild increased punctate and patchy foci of T2/FLAIR hyperintensities consistent with worsening chronic microvascular ischemic changes with resultant increased parenchymal volume loss. * Interval mild increased FLAIR hyperintensity surrounding the right frontal lobe resection cavity likely secondary to combination of posttreatment (postsurgical and presumed postradiation) changes and worsening chronic microvascular ischemic changes. Resultant mild increased exvacuo dilatation of the right frontal horn. * Previously seen scattered punctate foci of restricted diffusion along the right occipital and parietal lobes are no longer visualized. Currently, there is no restricted diffusion. * Known occluded left vertebral artery is better evaluated on previous dedicated MR angiogram study on 03/04/2011. * Rest of the findings as in the initial report. Comparison with more recent studies is suggested if available. Consider follow-up MRI brain to reassure stability. Laundry Aide: MAGUI Transcribe Date/Time: Mar 04 2024 11:20A Dictated by : LEONORA CUELLAR MD This examination was interpreted and the report reviewed and electronically signed by: LEONORA CUELLAR MD on Feb 28 2024 2:37PM EST This document has been addended by: LEONORA CUELLAR MD on Mar 04 2024 11:48AM EST [id number] Normal [facility] CNOVon 02-13-2024 CNOV Office Visit (PSYTMN ) DIOR CARVAJAL ([id number]) 1965 F Date Time Provider Department 02/13/24 12:30 PM BINDU BURT PSYTMN During your visit today, we recorded the following information about you: Bindu Burt, PhD 02/29/2024 4:56 PM Signed [facility] Department of Neurology Section of Neuropsychology Neuropsychological Evaluation Report CONFIDENTIAL Patient: Dior Carvajal Referred by: Mini Whyte Date of : 1965 Date of Evaluation: 02/13/2024 SUMMARY/IMPRESSIONS: The patient is a 59-year-old, White, female, referred for a neuropsychological evaluation by Mini Wyhte MD in the [facility]. 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 Of note, the patient reported experiencing intermittent blurry vision, thus visually based tests were minimized. With this in mind, the neuropsychological profile reveals globally impaired cognitive functioning across all domains assessed with the exception of simple auditory attention. She does not benefit from repetition when learning an unorganized word list; although she retains the limited information over the delay, she does not have any added benefit from recognition cues. These results occur within the context of borderline to low average estimates of premorbid functioning. Although she reports elevated symptoms of depression and anxiety on self-report questionnaires, this is markedly inconsistent with self-report and raises concern that she had difficulties understanding some of the written questions. This table should not be presented separate from this Neuropsychological Evaluation Report. Superior High Average Average Low Average Simple x Mildly Low Moderately Low Simple Verbal reasoning W W W Naming Extremely Low Complex Complex Fluencies x Premorbid Estimate Attention Processing Speed Executive Function Learning Recall Recognition Language Function Visuoperceptual Function MEMORY S = Stories; W = Words; F = Figures Values in fox indicates WNL WNL = within normal limits; BE = below expectation Overall, the patient demonstrates deficits across all cognitive domains. Given unclear medical history, pending brain MRI, and her global pattern of impairment, establishing the etiology of her deficits is difficult. However, contributions likely include influences from her neurovascular history, cardiovascular risk factors, her tumor and surgical history, as well as pain and daily fatigue. RECOMMENDATIONS: It is unclear whether the patient is managing her finances on her own. Based on cognitive findings, it is strongly recommended that she receives assistance and considers pursuing financial and healthcare POA if not already in place. Given deficits in processing speed, working memory, and learning, the patient would likely benefit from receiving small amounts of information at a time and at a slower pace to maximize memory retention. No further follow up in our clinic is recommended at this time. I hope this information is helpful in your care and treatment of this patient. These results have not been reviewed with the patient; however, they were invited to contact me to schedule a feedback if they have questions after reviewing the report and/or meeting with their referring provider. It has been a pleasure to participate in this patient's care. Please feel free to contact me if you have any questions regarding this report or my recommendations. 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 She is unsure whether she received radiation or chemotherapy and there are no available records. 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 She believes that her arm weakness was associated with one of these strokes. Current Concerns: Word-finding difficulties. Forgetfulness of events that occurred a long time ago (e.g., events involving family members). She states that her symptoms began following her surgery, although she is not entirely sure of the timeline. She also reports increased distractibility and difficulties focusing in the past year. Her nurse aide reports that symptoms have remained largely stable in the two years that she has known the patient. IADL/ADL: She has resided in [facility], since 08/05/2022. Her family visits her frequently and is reportedly involved in he (more content not included)... Normal [facility] CNPNon 02-06-2024 CNPN Telephone (NSCAMN) DIOR CARVAJAL ([id number]) 1965 F Date Time Provider Department 02/06/24 MINI WHYTE [facility] During your visit today, we recorded the following information about you: Gerda Dee RN 02/06/2024 10:13 AM Signed Contacted [facility] and spoke with Johanny. I let her know dates, times and location for patients MRI and visit scheduled for 02/28/24. Sister was also updated who will meet patient here. Transportation to be arranged by facility Gerda Dee RN, BSN Instrument [facility] Allergies As of Date: 02/06/2024 Noted Allergy Reaction ALEVE (NAPROXEN) 11/05/2015 4 - Hives 9 - Itching IODINATED CONTRAST MEDIA 11/05/2015 14 - Other: See Comments Comments: dyspnea LATEX 11/05/2015 14 - Other: See Comments Comments: blisters METHADONE 11/05/2015 16 - Unknown Date Reviewed: 01/17/2024 Reviewed by: Erica Wilkins LPN - Fully Assessed Reason for Visit: Appointment confirmation =facility updated [Other] Prescriptions as of 02/06/2024 - traMADol (ULTRAM) 50 mg tablet Take 1 tablet by mouth two times a day for 180 days. - sertraline (ZOLOFT) 50 mg tablet Take 1 tablet by mouth once daily. - sertraline (ZOLOFT) 25 mg tablet Take 1 tablet by mouth once daily. - cranberry fruit (CRANBERRY) 450 mg tab Take 1 tablet by mouth once daily. - melatonin 5 mg tablet Take 1 tablet by mouth daily at bedtime. - methocarbamol (ROBAXIN) 500 mg tablet Take 1 tablet by mouth three times a day as needed. - ipratropium 20 mcg-albuterol 100 mcg (COMBIVENT RESPIMAT) 20-100 mcg/actuation inhaler Inhale 1 Puff as instructed every 6 hours as needed for wheezing/shortness of breath. - atorvastatin (LIPITOR) 20 mg tablet Take 1 tablet by mouth once daily. - omeprazole (PRILOSEC) 40 mg capsule Take 1 capsule by mouth once daily. - mirabegron (MYRBETRIQ) 50 mg Tb24 Take 1 tablet by mouth once daily. - conjugated estrogens (PREMARIN) vaginal cream Use 0.5 g vaginally two times a week. - LINZESS 72 mcg capsule Take 1 capsule by mouth once daily. - dicyclomine (BENTYL) 20 mg tablet Take 1 tablet by mouth w MEALS. - ondansetron orally disintegrating (ZOFRAN ODT) 4 mg disintegrating tablet Take 1 tablet by mouth as needed. - carvedilol (COREG) 3.125 mg tablet Take 1 tablet by mouth twice daily with meals. - Multivitamin capsule Take 1 capsule by mouth once daily. - aspirin 81 mg chewable tablet Take 1 tablet by mouth once daily. 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 Patient requesting return call ? Yes Gerda Dee RN 02/06/2024 10:11 AM Signed Returned call and provided Katie with appointment dates and times for 02/28/24 Gerda Dee, RN, BSN Instrument Tech [facility] Allergies As of Date: 02/06/2024 Noted Allergy Reaction ALEVE (NAPROXEN) 11/05/2015 4 - Hives 9 - Itching IODINATED CONTRAST MEDIA 11/05/2015 14 - Other: See Comments Comments: dyspnea LATEX 11/05/2015 14 - Other: See Comments Comments: blisters METHADONE 11/05/2015 16 - Unknown Date Reviewed: 01/17/2024 Reviewed by: Erica Wilkins LPN - Fully Assessed Reason for Visit: Returning Patient's Call [[id number]] Appointment [186] Prescriptions as of 02/06/2024 - traMADol (ULTRAM) 50 mg tablet Take 1 tablet by mouth two times a day for 180 days. - sertraline (ZOLOFT) 50 mg tablet Take 1 tablet by mouth once daily. - sertraline (ZOLOFT) 25 mg tablet Take 1 tablet by mouth once daily. - cranberry fruit (CRANBERRY) 450 mg tab Take 1 tablet by mouth once daily. - melatonin 5 mg tablet Take 1 tablet by mouth daily at bedtime. - methocarbamol (ROBAXIN) 500 mg tablet Take 1 tablet by mouth three times a day as needed. - ipratropium 20 mcg-albuterol 100 mcg (COMBIVENT RESPIMAT) 20-100 mcg/actuation inhaler Inhale 1 Puff as instructed every 6 hours as needed for wheezing/shortness of breath. - atorvastatin (LIPITOR) 20 mg tablet Take 1 tablet by mouth once daily. - omeprazole (PRILOSEC) 40 mg capsule Take 1 capsule by mouth once daily. - mirabegron (MYRBETRIQ) 50 mg Tb24 Take 1 tablet by mouth once daily. - conjugated estrogens (PREMARIN) vaginal cream Use 0.5 g vaginally two times a week. - LINZESS 72 mcg capsule Take 1 capsule by mouth once daily. - dicyclomine (BENTYL) 20 mg tablet Take 1 tablet by mouth w MEALS. - ondansetron orally disintegrating (ZOFRAN ODT) 4 mg disintegrating tablet Take 1 tablet by mouth as needed. - carvedilol (COREG) 3.125 mg tablet Take 1 tablet by mouth twice daily with meals. - Multivitamin capsule Take 1 capsule by mouth once daily. - aspirin 81 mg chewable tablet Take 1 tablet by mouth once daily. 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 This will be arranged at [facility] with same day visit (week of 02/24) . A family member needs to be present. At Dior's consultation she came with an aide front he facility and no family. Katie said she works in [employer] and can meet Dior at her appointment. Dior and the facility ([facility] [phone]) will need to know the day/time of appointment to make arrangements. Once appointments are scheduled, we will notify them. Dior does not have My Chart Gerda Dee, RN, BSN Instrument Tech [facility] Allergies As of Date: 01/21/2024 Noted Allergy Reaction ALEVE (NAPROXEN) 11/05/2015 4 - Hives 9 - Itching IODINATED CONTRAST MEDIA 11/05/2015 14 - Other: See Comments Comments: dyspnea LATEX 11/05/2015 14 - Other: See Comments Comments: blisters METHADONE 11/05/2015 16 - Unknown Date Reviewed: 01/17/2024 Reviewed by: Erica Wilkins LPN - Fully Assessed Reason for Visit: Appointment follow up [Other] Prescriptions as of 02/01/2024 - traMADol (ULTRAM) 50 mg tablet Take 1 tablet by mouth two times a day for 180 days. - sertraline (ZOLOFT) 50 mg tablet Take 1 tablet by mouth once daily. - sertraline (ZOLOFT) 25 mg tablet Take 1 tablet by mouth once daily. - cranberry fruit (CRANBERRY) 450 mg tab Take 1 tablet by mouth once daily. - melatonin 5 mg tablet Take 1 tablet by mouth daily at bedtime. - methocarbamol (ROBAXIN) 500 mg tablet Take 1 tablet by mouth three times a day as needed. - ipratropium 20 mcg-albuterol 100 mcg (COMBIVENT RESPIMAT) 20-100 mcg/actuation inhaler Inhale 1 Puff as instructed every 6 hours as needed for wheezing/shortness of breath. - atorvastatin (LIPITOR) 20 mg tablet Take 1 tablet by mouth once daily. - omeprazole (PRILOSEC) 40 mg capsule Take 1 capsule by mouth once daily. - mirabegron (MYRBETRIQ) 50 mg Tb24 Take 1 tablet by mouth once daily. - conjugated estrogens (PREMARIN) vaginal cream Use 0.5 g vaginally two times a week. - LINZESS 72 mcg capsule Take 1 capsule by mouth once daily. - dicyclomine (BENTYL) 20 mg tablet Take 1 tablet by mouth w MEALS. - ondansetron orally disintegrating (ZOFRAN ODT) 4 mg disintegrating tablet Take 1 tablet by mouth as needed. - carvedilol (COREG) 3.125 mg tablet Take 1 tablet by mouth twice daily with meals. - Multivitamin capsule Take 1 capsule by mouth once daily. - aspirin 81 mg chewable tablet Take 1 tablet by mouth once daily. 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] 03/21/2022 Grief [F43.21] 05/25/2022 Encounter Status:Closed by GERDA DEE on 02/01/24 [facility] Telephone ([facility]) WEIDIOR ([id number]) 1965 F Date Time Provider Department 01/21/24 MINI WHYTE [facility] During your visit today, we recorded the following information about you: Gerda Dee, ALMA 01/23/2024 11:20 AM Addendum Scheduling Request - Established Patient Time Frame: [facility] week of 02/25/24 Orders: MRI brain Provider: Dr Spears Visit type: In person Diagnosis: astrocytoma *Patient lives in a facility. -Family member to be present at follow up Scheduling Request - New Patient Time Frame: if possible same day as MRI and Dr Spears- if unable to coordinate- next available. Must kacey appointment or call facilty Orders: neuropsychology consult Provider or Provider Group: first availabe Visit type: In person Referring: Dr Spears Diagnosis: cognitive assessment. Kamini John 01/29/2024 10:30 AM Signed Spoke to imaging scheduler from Facility, she is scheduled AND confirmed for all appts. Allergies As of Date: 01/21/2024 Noted Allergy Reaction ALEVE (NAPROXEN) 11/05/2015 4 - Hives 9 - Itching IODINATED CONTRAST MEDIA 11/05/2015 14 - Other: See Comments Comments: dyspnea LATEX 11/05/2015 14 - Other: See Comments Comments: blisters METHADONE 11/05/2015 16 - Unknown Date Reviewed: 01/17/2024 Reviewed by: Erica Wilkins LPN - Fully Assessed Reason for Visit: MARYJANE week of 02/25/24 [Other] Prescriptions as of 01/29/2024 - traMADol (ULTRAM) 50 mg tablet Take 1 tablet by mouth two times a day for 180 days. - sertraline (ZOLOFT) 50 mg tablet Take 1 tablet by mouth once daily. - sertraline (ZOLOFT) 25 mg tablet Take 1 tablet by mouth once daily. - cranberry fruit (CRANBERRY) 450 mg tab Take 1 tablet by mouth once daily. - melatonin 5 mg tablet Take 1 tablet by mouth daily at bedtime. - methocarbamol (ROBAXIN) 500 mg tablet Take 1 tablet by mouth three times a day as needed. - ipratropium 20 mcg-albuterol 100 mcg (COMBIVENT RESPIMAT) 20-100 mcg/actuation inhaler Inhale 1 Puff as instructed every 6 hours as needed for wheezing/shortness of breath. - atorvastatin (LIPITOR) 20 mg tablet Take 1 tablet by mouth once daily. - omeprazole (PRILOSEC) 40 mg capsule Take 1 capsule by mouth once daily. - mirabegron (MYRBETRIQ) 50 mg Tb24 Take 1 tablet by mouth once daily. - conjugated estrogens (PREMARIN) vaginal cream Use 0.5 g vaginally two times a week. - LINZESS 72 mcg capsule Take 1 capsule by mouth once daily. - dicyclomine (BENTYL) 20 mg tablet Take 1 tablet by mouth w MEALS. - ondansetron orally disintegrating (ZOFRAN ODT) 4 mg disintegrating tablet Take 1 tablet by mouth as needed. - carvedilol (COREG) 3.125 mg tablet Take 1 tablet by mouth twice daily with meals. - Multivitamin capsule Take 1 capsule by mouth once daily. - aspirin 81 mg chewable tablet Take 1 tablet by mouth once daily. 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 Yes, nausea, vomiting, constipation (day of last BM 01/16/24), and diarrhea ( 4 times in last 24 hours) Does the patient have a decreased appetite? No Does patient want to see a Liquor Bridge Operator Helper? No (yes to any of above refer patient to schedulers for dietitian appointment) ) Does patient have any new or increased numbness or tingling of extremities? No Is patient interested in fertility information? No Does patient need any prescription refills? No Does patient have an advanced directive in place? No, Patient refused referral to Social Work or Resource Center Electronically Signed By: MICHELLE Estevez Alejandro, MD 01/21/2024 1:13 AM Signed [facility] New Patient Consultation Referred by: Leela Escoto DO [address] [place] [id number] Diagnosis: Anaplastic astrocytoma The patient is accompanied by a staff at the [facility] where she resides, [place]. Subjective History of Present Illness: Mrs. Carvajal, is a 58 YO RHF, has a past medical history of Abnormal gait, Acute neutrophilia, Atrophic vaginitis, Chronic constipation, Cobalamin deficiency, Constipation, Depressive disorder, Dyslipidemia, Essential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 (Bld) [#/Vol] Normal [facility] Comment on above: Order Comment: Speci men Type: BLOOD SPECIMEN Ordering Facility: [facility] Address: [address] [place] [address] Performed By: #### 5 7021-8 #### [facility] CLIA [id number] [address] [place] [address] [place] Nucleated RBC/100 WBC (Bld) [Ratio] Normal [facility] Comment on above: Order Comment: Speci men Type: BLOOD SPECIMEN Ordering Facility: [facility] Address: [address] [place] [address] Performed By: #### 5 7021-8 #### [facility] [place] [facility] CLIA [id number] [address] [place] [address] [place] Platelet mean volume (Bld) [Entitic vol] 9.2 fL Normal 9.0-12.7 [facility] Comment on above: Order Comment: Speci men Type: BLOOD SPECIMEN Ordering Facility: [facility] Address: [address] [place] [address] Performed By: #### 5 7021-8 #### [facility] CLIA [id number] [address] [place] [address] [place] Platelets (Bld) [#/Vol] 303 10*3/uL Normal 150-400 [facility] Comment on above: Order Comment: Speci men Type: BLOOD SPECIMEN Ordering Facility: [facility] Address: [address] [place] [address] Result Comment: RARE PLATELET CLUMPS NO CLOT Performed By: #### 5 7021-8 #### [facility] [place] [facility] CLIA [id number] [address] [place] [address] [place] Platelets Estimate (Bld) [#/Vol] Adequate Normal [facility] Comment on above: Order Comment: Speci men Type: BLOOD SPECIMEN Ordering Facility: [facility] Address: [address] [place] [address] Performed By: #### 5 7021-8 #### [facility] [place] [facility] CLIA [id number] [address] [place] [address] [place] RBC (Bld) [#/Vol] 4.32 10*6/uL Normal 3.90-5.20 [facility] Comment on above: Order Comment: Speci men Type: BLOOD SPECIMEN Ordering Facility: [facility] Address: [address] [place] [address] Performed By: #### 5 7021-8 #### [facility] CLIA [id number] [address] [place], [place] [id number] [facility] RED CELL MORPH Reviewed: unremarkable Normal [facility] Comment on above: Order Comment: Speci men Type: BLOOD SPECIMEN Ordering Facility: [facility] Address: [address] [place] [address] Performed By: #### 5 7021-8 #### [facility] CLIA [id number] [address] [place] [address] OF [facility] WBC (Bld) [#/Vol] 15.95 10*3/uL High 3.70-11.00 [facility] Comment on above: Order Comment: Speci men Type: BLOOD SPECIMEN Ordering Facility: [facility] Address: [address] [place] [address] Performed By: #### 5 7021-8 #### [facility] [place] [facility] CLIA [id number] [address] [place] [address] CT ABD/PEL WO IVCONon 2021 CT ABD/PEL WO IVCON * * *Final Report* * * DATE OF EXAM: Mar 20 2022 8:50PM [facility] 0531 - CT ABD/PEL WO IVCON / PROCEDURE REASON: Flank pain, kidney stone suspected * * * * Physician Interpretation * * * * EXAMINATION: CT ABDOMEN AND PELVIS WITHOUT IV CONTRAST CLINICAL HISTORY: UTI symptoms TECHNIQUE: Non-IV contrast imaging of the abdomen and pelvis was performed using standard technique, scanning from just above the dome of the diaphragm to the symphysis pubis. Unenhanced imaging is limited for the evaluation of some intra-abdominal and pelvic pathology. MQ: CTAPWO_3 Contrast: IV: None : ml of CT Radiation dose: Integrated Dose-length product (DLP) for this visit = 625 mGy*cm. CT Dose Reduction Employed: Automated exposure control (AEC) COMPARISON: 01/18/2022 RESULT: Abdomen / Pelvis: Liver: Unremarkable. Biliary: Cholecystectomy Spleen: No splenomegaly. Pancreas: Unremarkable. Adrenals: No mass. Kidneys: There is either a transplant and or ptotic kidney in the left lower quadrant. A 7 mm calculus in its collecting system is identified. GI Tract: No bowel dilation. A few scattered diverticulae are identified. Appendectomy has been performed. Lymph Nodes: No lymphadenopathy. Mesentery/peritoneum: No ascites. Retroperitoneum: No mass. Vasculature: Arterial atherosclerotic disease without aneurysm. Pelvis: No mass or ascites. Hull catheter in the urinary bladder is identified. Lymph node dissection along the external iliac chain is identified. Bones/Soft Tissues: No acute abnormality. Left hip arthroplasty has been performed. Lower thorax: Unremarkable. Motel Front Desk Attendant (topogram) images: IMPRESSION: Left pelvic kidney with nephrolithiasis looks similar. There is no obstructive uropathy. Laundry Aide: MAGUI Transcribe Date/Time: Mar 20 2022 9:05P Dictated by : LESLY BOSTON MD This examination was interpreted and the report reviewed and electronically signed by: LESLY BOSTON MD on Mar 20 2022 9:18PM EST [id number] [facility] ED NOTEon 03-20-2022 ED NOTE HNO ID: [id number] Author: Fausto Sawyer RN Service: Emergency Medicine Author Type: Registered Nurse Type: ED Notes Filed: 03/20/2022 9:31 PM Note Text: Patient informed about the name of the medication(s), what the medication(s) is(are) for, and what to expect with/from med administration. Patient given opportunity to ask questions. Medication(s) include: Macrobid. [facility] ED NOTE HNO ID: [id number] Author: Fausto Sawyer RN Service: Emergency Medicine Author Type: Registered Nurse Type: ED Notes Filed: 03/20/2022 9:26 PM Note Text: Physician at bedside. [facility] ED NOTE HNO ID: [id number] Author: Pau Castañeda RN Service: Nursing Author Type: Registered Nurse Type: ED Notes Filed: 03/20/2022 7:16 PM Note Text: Report to ALMA Lambert [facility] ED NOTE HNO ID: [id number] Author: Fausto Sawyer RN Service: Emergency Medicine Author Type: Registered Nurse Type: ED Notes Filed: 03/20/2022 10:11 PM Note Text: Change of shift report received from Pau Clay RN. This RN assumed patient care at this time. Normal [facility] ED NOTE HNO ID: [id number] Author: Pau Castañeda RN Service: Nursing Author Type: Registered Nurse Type: ED Notes Filed: 03/20/2022 6:50 PM Note Text: Pt taken to bathroom, unable to void Normal [facility] ED NOTE HNO ID: [id number] Author: Pau Castañeda RN Service: Nursing Author Type: Registered Nurse Type: ED Notes Filed: 03/20/2022 6:19 PM Note Text: Pt arrives with report of UTI, noticed symptoms about 1 week ago. Pt reports frequency, burning, and always going. Pt reports pain in the crotch, pt reports pain is constant Normal [facility] Urinalysis complete pnl Uron 03-20-2022 Urinalysis complete panel (U) COLOR: Yellow CLARITY: Cloudy GLUCOSE, URINE: Negative BILIRUBIN, URINE: Negative KETONES, URINE: Negative SPECIFIC GRAVITY, UR: 1.015 HEMOGLOBIN/BLOOD, UR: 3+ PH, URINE: 5.5 PROTEIN, URINE: 3+ UROBILINOGEN: 0.2 EU/dL NITRITES: Negative LEUKEST: 2+ WBC, URINE: >25 /HPF RBC, URINE: 6-10 /HPF BACTERIA: Many ORGANISM ID: 1 >=100,000 CFU/ml Aerococcus urinae Susceptibility testing is not routinely performed. Aerococcus spp. are generally susceptible to beta lactams and Vancomycin. ORGANISM ID: 2 <10,000 CFU/ml Normal urogenital keisha Normal [facility] Comment on above: Order Comment: Speci men Type: URINE SPECIMENOrdering Facility: [facility] Address: [address] [place] [id number] Performed By: #### 2 4356-8 ####[facility] [id number] [address] [facility] [id number] [address] CNOVon 02-24-2022 CNOV Office Visit (AGFAMPLE) DIOR CARVAJAL ([id number]) 1965 F Date Time Provider Department 02/24/22 10:20 AM LEELA ESCOTO During your visit today, we recorded the following information about you: Temperature Pulse Respiration Blood pressure 97.8 degrees 74/minute 16/minute 118/68 Weight Height 80.7 kg 1.676 m Leela Escoto DO 02/24/2022 12:52 PM Signed Subjective HPI Pt is here for f/u for chronic neck pain She takes tramadol as needed Pain today is 5/10, at its worst can be 9/10 She had endoscopy by Dr. Nieto, GI, yesterday She will return to see him on 03/31/22 for a colonoscopy She has a lot of burning in her abdomen, feels like her guts are on fire The pain wakes her up in the middle of the night She is taking linzess and will start a new medication that he prescribed today, but she does not know the name She is in a wheelchair here, but uses a walker at home She continues to smoke, but has cut down to 2 cigarettes per day ALLERGIES Allergen Reactions Aleve [Naproxen] Hives, Itching Iodinated Contrast * Other: See Comments dyspnea Latex Other: See Comments blisters Methadone Unknown Current Outpatient Medications Medication Sig Dispense Refill LINZESS 72 mcg capsule Take 1 capsule by mouth once daily. dicyclomine (BENTYL) 20 mg tablet Take 1 tablet by mouth w MEALS. ondansetron orally disintegrating (ZOFRAN ODT) 4 mg disintegrating tablet Take 1 tablet by mouth as needed. traMADol (ULTRAM) 50 mg tablet Take 1 tablet by mouth twice daily for 30 days. 60 tablet 0 carvedilol (COREG) 3.125 mg tablet Take 1 tablet by mouth twice daily with meals. 180 tablet 1 atorvastatin (LIPITOR) 20 mg tablet Take 1 tablet by mouth once daily. 90 tablet 1 mirabegron (MYRBETRIQ) 25 mg Tb24 Take 1 tablet by mouth once daily. 90 tablet 1 omeprazole (PRILOSEC) 40 mg capsule Take 1 capsule by mouth once daily. 90 capsule 1 Multivitamin capsule Take 1 capsule by mouth once daily. aspirin 81 mg chewable tablet Take 1 tablet by mouth once daily. 90 tablet 3 ESTRACE 0.01 % (0.1 mg/gram) vaginal cream Use 1 g vaginally twice a week. 1 Tube 3 No current facility-administered medications for this visit. ACTIVE PROBLEM LIST Urinary Incontinence, Mixed Osteoarthritis of Multiple Joints Essential Hypertension Abnormal Gait Constipation Dyslipidemia Multiple Joint Pain Smoker Social History Tobacco Use Smoking status: Every Day Packs/day: 0.25 Years: 35.00 Pack years: 8.75 Types: Cigarettes Start date: 03/26/1980 Smokeless tobacco: Never Vaping Use Vaping Use: Never used Substance Use Topics Alcohol use: Not Currently Drug use: No Family History Problem Relation Age of Onset COPD Mother Heart Father irregular heartbeat Thyroid Sister non cancerous Reviewed past medical history, family history and surgeries. All medications and supplements were reviewed with the patient. Review of Systems Constitutional: Negative for chills, diaphoresis, fever, malaise/fatigue and weight loss. HENT: Negative for ear pain and hearing loss. Eyes: Negative for blurred vision and double vision. Respiratory: Negative for cough and shortness of breath. Cardiovascular: Negative for chest pain, palpitations and leg swelling. Gastrointestinal: Positive for abdominal pain and heartburn. Negative for constipation and diarrhea. Genitourinary: Negative for dysuria and frequency. Musculoskeletal: Positive for neck pain. Negative for back pain, falls, joint pain and myalgias. Skin: Negative for itching and rash. Neurological: Negative for dizziness, weakness and headaches. Endo/Heme/Allergies: Does not bruise/bleed easily. Psychiatric/Behavioral : Negative for depression and substance abuse. The patient does not have insomnia. Objective BP 118/68 Pulse 74 Temp 36.6 ?C (97.8 ?F) Resp 16 Ht 167.6 cm (5' 6) Wt 80.7 kg (178 lb) SpO2 93% BMI 28.73 kg/m? Physical Exam Constitutional: Appearance: Normal appearance. HENT: Head: Normocephalic and atraumatic. Nose: Nose normal. Mouth/Throat: Mouth: Mucous membranes are moist. Dentition: Normal dentition. Eyes: General: Lids are normal. Extraocular Movements: Extraocular movements intact. Conjunctiva/sclera: Conjunctivae normal. Pupils: Pupils are equal, round, and reactive to light. Neck: Thyroid: No thyroid mass or thyromegaly. Vascular: No carotid bruit. Trachea: Phonation normal. Cardiovascular: Rate and Rhythm: Normal rate and regular rhythm. Heart sounds: Normal heart sounds. No murmur heard. No friction rub. No gallop. Pulmonary: Effort: Pulmonary effort is normal. Breath sounds: Normal breath sounds. No wheezing or rales. Abdominal: General: Bowel sounds are normal. There is no distension. Palpations: Abdomen is soft. There is no mass. Tenderness: There (more content not included)... Normal [facility] CT ABD/PEL WO IVCONon 2021 CT ABD/PEL WO IVCON * * *Final Report* * * DATE OF EXAM: Jan 18 2022 3:44PM [facility] [place] ABD/PEL WO IVCON / PROCEDURE REASON: R10.84 GENERALIZED ABDOMINAL PAIN; R19.7 DIARRHEA, UNSPECIFIED * * * * Physician Interpretation * * * * EXAMINATION: CT ABDOMEN AND PELVIS WITHOUT IV CONTRAST CLINICAL HISTORY: TECHNIQUE: Non-IV contrast imaging of the abdomen and pelvis was performed using standard technique, scanning from just above the dome of the diaphragm to the symphysis pubis. Unenhanced imaging is limited for the evaluation of some intra-abdominal and pelvic pathology. MQ: CTAPWO_3 Contrast: IV: None Oral: 400 ml of 50ML Omnipaque [address] Radiation dose: Integrated Dose-length product (DLP) for this visit = 709 mGy*cm. CT Dose Reduction Employed: Automated exposure control (AEC) COMPARISON: None. RESULT: Abdomen / Pelvis: Liver: Unremarkable. Biliary: Gallbladder is absent. Spleen: No splenomegaly. Pancreas: Unremarkable. Adrenals: No mass. Kidneys: Left pelvic kidney. Non-obstructing 1 cm calculus involving the lower pole the left kidney. No hydronephrosis. No renal lesion. No right renal calculus, hydronephrosis, renal lesion. GI Tract: Fecal residue in the colon. No acute inflammatory process identified involving the bowel. No evidence of bowel obstruction. Prior appendectomy. Lymph Nodes: No lymphadenopathy. Mesentery/peritoneum: No ascites. Retroperitoneum: No mass. Vasculature: Atherosclerotic calcification involving the abdominal aorta and its branch structures. Pelvis: No free fluid or free air identified. Bladder is unremarkable in appearance. Bones/Soft Tissues: No acute abnormality. Lower thorax: No acute osseous abnormality identified. [employer] Front Desk Attendant (topogram) images: No additional findings. IMPRESSION: No acute process identified involving the abdomen or pelvis. Left pelvic kidney and left nephrolithiasis. Additional findings as above. Laundry Aide: MAGUI Transcribe Date/Time: Jan 20 2022 1:57P Dictated by : SETH CHAPMAN MD This examination was interpreted and the report reviewed and electronically signed by: SETH CHAPMAN MD on Jan 20 2022 2:02PM EST [id number] Normal [facility] C diff Tox gens Stl Ql BARB+p robeon 12-27-2021 C. difficile toxin genes BARB+probe Ql (Stl) Negative Normal Negative for C. difficile toxin by PCR [facility] Comment on above: Order Comment: Speci men Type: STOOL SPECIMEN Ordering Facility: [facility] Address: [address] [place] [address] Performed By: #### 5 4067-4 #### [facility] CLIA [id number] [address] [place] [address] [place] FECAL LACTOFERRIN/LEUKOCYTES on 12-27-2021 Lactoferrin IA Ql (Stl) Negative for lactoferrin, which may indicate the absence of fecal white blood cells Normal Negative [facility] Comment on above: Order Comment: Speci men Type: BLOOD SPECIMEN Ordering Facility: [facility] Address: [address] [place] [address] Performed By: #### 1 798-8, 89295-8, 3016-3 #### [facility] CLIA [id number] [address] [place] [address] [place] GI pathogens Pnl Stl Culton 12-27-2021 Gastrointestinal pathogens panel Cx (Stl) CULTURE, STOOL: No Salmonella, Shigella, Campylobacter or E. coli O157:H7 isolated Normal [facility] Comment on above: Performed By: #### 8 2305-4 ####[facility] [id number] [place] [address] [place] O+P Spec Microon 12-27-2021 Ova and parasites identified LM Nom (Unsp spec) OVA AND PARASITE EXAM: No Parasites Seen Normal [facility] Comment on above: Performed By: #### 6 73-4 ####[facility] [id number] [facility] [place] [address] [place] Amylase SerPl-cCncon 022 Amylase [Catalytic activity/Vol] 32 U/L Normal 30-104 [facility] Comment on above: Order Comment: Speci men Type: BLOOD SPECIMEN Ordering Facility: [facility] Address: [address] [place] [address] Performed By: #### 1 798-8, 93091-3, 6-3 #### [facility] CLIA [id number] [address] [place] [address] [place] CBC W Auto Differential pane l (Bld)on 12-26-2021 Basophils (Bld) [#/Vol] 0.04 10*3/uL Normal <0.11 [facility] Comment on above: Order Comment: Speci men Type: BLOOD SPECIMEN Ordering Facility: [facility] Address: [address] [place] [address] Performed By: #### 1 798-8, 11698-6, 6-3 #### [facility] CLIA [id number] [address] [place] Basophils/100 WBC (Bld) 0.4 % Normal A [facility] Comment on above: Order Comment: Speci men Type: BLOOD SPECIMEN Ordering Facility: [facility] Address: [address] [place] [address] Performed By: #### 1 798-8, 01284-0, 6-3 #### [facility] CLIA [id number] [address] [place] [address] [facility] [place] Differential cell count method Nom (Bld) Auto Normal [facility] Comment on above: Order Comment: Specgustavo harding Type: BLOOD SPECIMEN Ordering Facility: [facility] Address: [address] [place] [address] Performed By: #### 1 798-8, 04374-4, 3016-3 #### [facility] CLIA [id number] [address] [place] [address] [place] Eosinophils (Bld) [#/Vol] 0.07 10*3/uL Normal <0.46 [facility] Comment on above: Order Comment: Specgustavo harding Type: BLOOD SPECIMEN Ordering Facility: [facility] Address: [address] [place] [address] Performed By: #### 1 798-8, 77274-9, 3016-3 #### [facility] CLIA [id number] [address] [place] [address] [place] [facility] Eosinophils/100 WBC (Bld) 0.7 % Normal [facility] Comment on above: Order Comment: Speci men Type: BLOOD SPECIMEN Ordering Facility: [facility] Address: [address] [place] [address] Performed By: #### 1 798-8, 16268-7, 3016-3 #### [facility] CLIA [id number] [address] [place] Erythrocyte distribution width (RBC) [Ratio] 13.3 % Normal 11.5-15.0 [facility] Comment on above: Order Comment: Speci men Type: BLOOD SPECIMEN Ordering Facility: [facility] Address: [address] [place] [address] Performed By: #### 1 798-8, 63060-6, 3016-3 #### [facility] CLIA [id number] [address] [place] [address] [facility] [place] Hematocrit (Bld) [Volume fraction] 42.4 % Normal 36.0-46.0 [facility] Comment on above: Order Comment: Speci men Type: BLOOD SPECIMEN Ordering Facility: [facility] Address: [address] [place] [address] Performed By: #### 1 798-8, 80267-2, 6-3 #### [facility] CLIA [id number] [address] [place] [address] [place] Hemoglobin (Bld) [Mass/Vol] 13.1 g/dL Normal 11.5-15.5 [facility] Comment on above: Order Comment: Speci men Type: BLOOD SPECIMEN Ordering Facility: [facility] Address: [address] [place] [address] Performed By: #### 1 798-8, 80720-3, 3015-3 #### [facility] CLIA [id number] [address] [place] [id number] [place] Lymphocytes (Bld) [#/Vol] 1.92 10*3/uL Normal 1.00-4.00 [facility] Comment on above: Order Comment: Speci men Type: BLOOD SPECIMEN Ordering Facility: [facility] Address: [address] [place] [address] Performed By: #### 1 798-8, 50661-0, 3 #### [facility] CLIA [id number] [address] [place] [address] [place] Lymphocytes/100 WBC (Bld) 19.5 % Normal [facility] Comment on above: Order Comment: Speci men Type: BLOOD SPECIMEN Ordering Facility: [facility] Address: [address] [place] [address] Performed By: #### 1 798-8, 55124-7, 3015-3 #### [facility] CLIA [id number] [address] [place] [address] [place] MCH (RBC) [Entitic mass] 29.0 pg Normal 26.0-34.0 [facility] Comment on above: Order Comment: Speci men Type: BLOOD SPECIMEN Ordering Facility: [facility] Address: [address] [place] [address] Performed By: #### 1 798-8, 51993-3, 6-3 #### [facility] CLIA [id number] [address] [place] [address] MCHC (RBC) [Mass/Vol] 30.9 g/dL Normal 30.5-36.0 [facility] Comment on above: Order Comment: Speci men Type: BLOOD SPECIMEN Ordering Facility: [facility] Address: [address] [place] [address] Performed By: #### 1 798-8, 39019-9, 3015-3 #### [facility] CLIA [id number] [address] [place] [address] MCV (RBC) [Entitic vol] 93.8 fL Normal 80.0-100.[address] [facility] Comment on above: Order Comment: Speci men Type: BLOOD SPECIMEN Ordering Facility: [facility] Address: [address] [place] [address] Performed By: #### 1 798-8, 35571-9, 3015-3 #### [facility] CLIA [id number] [address] [place] [address] Monocytes (Bld) [#/Vol] 0.44 10*3/uL Normal <0.87 [facility] Comment on above: Order Comment: Speci men Type: BLOOD SPECIMEN Ordering Facility: [facility] Address: [address] [place] [address] Performed By: #### 1 798-8, 81750-7, 3015-3 #### [facility] CLIA [id number] [address] [place] [address] Monocytes/100 WBC (Bld) 4.5 % Normal A [facility] Comment on above: Order Comment: Speci men Type: BLOOD SPECIMEN Ordering Facility: [facility] Address: [address] [place] [address] Performed By: #### 1 798-8, 78487-5, 6-3 #### [facility] CLIA [id number] [address] [place] [address] [place] Neutrophils (Bld) [#/Vol] 7.39 10*3/uL Normal 1.45-7.50 [facility] Comment on above: Order Comment: Speci men Type: BLOOD SPECIMEN Ordering Facility: [facility] Address: [address] [place] [address] Performed By: #### 1 798-8, 35030-9, 3015-3 #### [facility] CLIA [id number] [address] [place] [address] [place] Neutrophils/100 WBC (Bld) 74.9 % Normal [facility] Comment on above: Order Comment: Speci men Type: BLOOD SPECIMEN Ordering Facility: [facility] Address: [address] [place] [address] Performed By: #### 1 798-8, 29904-0, 3015-3 #### [facility] CLIA [id number] [address] [place] [address] [place] Platelet mean volume (Bld) [Entitic vol] 9.7 fL Normal 9.0-12.7 [facility] Comment on above: Order Comment: Speci men Type: BLOOD SPECIMEN Ordering Facility: [facility] Address: [address] [place] [address] Performed By: #### 1 798-8, 09716-4, 3015-3 #### [facility] CLIA [id number] [address] [place] [address] [place] Platelets (Bld) [#/Vol] 311 10*3/uL Normal 150-400 [facility] Comment on above: Order Comment: Speci men Type: BLOOD SPECIMEN Ordering Facility: [facility] Address: [address] [place] [address] Performed By: #### 1 798-8, 27422-7, 6-3 #### [facility] CLIA [id number] [address] [place] [address] [place] RBC (Bld) [#/Vol] 4.52 10*6/uL Normal 3.90-5.20 [facility] Comment on above: Order Comment: Jayme harding Type: BLOOD SPECIMEN Ordering Facility: [facility] Address: [address] [place] [address] Performed By: #### 1 798-8, 69467-9, 3016-3 #### [facility] CLIA [id number] [address] [place] [address] [facility] [place] WBC (Bld) [#/Vol] 9.86 10*3/uL Normal 3.70-11.00 [facility] Comment on above: Order Comment: Jayme harding Type: BLOOD SPECIMEN Ordering Facility: [facility] Address: [address] [place] [address] Performed By: #### 1 798-8, 52949-2, 3016-3 #### [facility] CLIA [id number] [address] [place] [address] [employer] HLA-DQ GENOTYPE on 12-26-2021 CELIAC CATEGORY Category 3 Normal [facility] Comment on above: Order Comment: Jayme harding Type: BLOOD SPECIMEN Ordering Facility: [facility] Address: [address] [place] [address] Result Comment: CATEGORY DQ HAPLOTYPE RELATIVE RISK Category 7 DQ2.2 AND DQ2.5 Extremely High Category 7 DQ2.5 AND DQ2.5 Extremely High Category 6 DQ2.2 AND DQA1*05, DQB1*03:01 Very High Category 5 DQ2.2 AND DQ8 Very High Category 5 DQ2.5 AND DQ8 Very High Category 4 DQ8 AND DQ8 High Category 3 DQ2.5 AND DQA1*05, DQB1*03:01 High Category 3 DQ2.5 AND DQA1*02:01, DQB1*03:03 High Category 3 DQ2.5 AND DQA1*03, DQB1*02 High Category 3 DQ2.5 AND OTHER LOW RISK ALLELE High Category 3 DQ2.2 AND DQA1*05, DQB1*03:03 High Category 2 DQ8 AND OTHER LOW RISK ALLELE Moderate Category 1 DQ2.2 AND OTHER LOW RISK ALLELE Low Category 0 NEGATIVE FOR DQ2.2 Negative Category 0 NEGATIVE FOR DQ2.5 Negative Category 0 NEGATIVE FOR DQ8 Negative DQ2.2 = DQA1*02:01, DQB1*02:02 DQ2.5 = DQA1*05, DQB1*02:01 DQ8 = DQA1*03, DQB1*03:02 The identification of one of these HLA-DQ genotypes is not, by itself, sufficient for the diagnosis of celiac disease, since both DQ2 and DQ8 are relatively common in the general population. The strongest reported HLA associations with celiac disease include DQ2 (DQ2.5 or DQA1*05-DQB1*02:01 & DQA2.2 or DQA1*02:01-DQB1*02:02) and DQ8 (DQA1*03:01/DQB1*03:02). This test is useful for family members of celiac patients and patients with negative serology results. This testing can rule out celiac disease with high negative predictive value (NPV) of 95-100% depending on the ethnic background. In cases of an ambiguous HLA allele assignment where multiple rare alleles cannot be excluded, the most common HLA allele is reported. References: 1. Dontae L, Blair J, Richie K, et al. Cost-effective HLA typing with tagging SNPs predicts celiac disease risk haplotypes in the [place], [place] and [place] populations. Immunogenetics. 2009 Jun;61(4):247-56. 2. César STERN. Celiac disease: dissecting a complex inflammatory disorder. Ale Rev Immunol. 2002 Nov;2(9):647-55. 3. Rory E, Vineet HS, Danny CA, et al. Risk of pediatric celiac disease according to HLA haplotype and country. N Engl J Med. 2014 ;371(1):42-9. HLA typing performed by PCR-RSSOP and/or NGS. This test was developed and its performance characteristics determined by [facility]. The test has not been cleared or approved by the [place] FDA. However, FDA approval was not necessary since this lab is certified under CLIA for high complexity testing. Test performed by: [facility], [address], [place] [address]. CLIA [id number]. Performed By: #### C PIETER #### [employer] [facility] [place] [id number] [address] [place] [address] CELIAC RISK HAPLOTYPE Positive Normal [facility] Comment on above: Order Comment: Jayme harding Type: BLOOD SPECIMEN Ordering Facility: [facility] Address: [address] [place] [address] Performed By: #### C PIETER #### [employer] [place] [id number] [address] [place] [address] HLA-DQA1 GENOTYPE HLA-DQA1*: 05, 01 Normal [facility] Comment on above: Order Comment: Jayme harding Type: BLOOD SPECIMEN Ordering Facility: [facility] Address: [address] [place] [address] Performed By: #### C PIETER #### [employer] [facility] [id number] [address] [place] [address] HLA-DQB1 GENOTYPE HLA-DQB1*: 02:01, 06 [facility] Comment on above: Order Comment: Jayme harding Type: BLOOD SPECIMEN Ordering Facility: [facility] Address: [address] [place] [address] Performed By: #### C PIETER #### [employer] [place] [id number] [address] [place] [address] CELIAC SCREENon 12-26-2021 GLIAD DEAMIDATED IGA QUAL Negative Normal Negative, Test not Indicated [facility] Comment on above: Order Comment: Jayme meaghan Type: BLOOD SPECIMEN Ordering Facility: [facility] Address: [address] [place] [address] Result Comment: This is used as an aid in diagnosis of celiac disease. Clinical correlation is required. The following results were obtained with an [employer] (EPS) QUANTA Lite Gliadin IgA DENISE Gliadin. Gliadin IgA values obtained with different manufacturers' assay methods may not be used interchangeably. The magnitude of the reported IgA levels cannot be correlated to an endpoint titer. Performed By: #### 1 798-8, 54367-8, 3015-3 #### [facility] CLIA [id number] [address] [place] [address] [place] Gliadin peptide IgA Qn (S) 2 Units Normal <20 [facility] Comment on above: Order Comment: Jayme harding Type: BLOOD SPECIMEN Ordering Facility: [facility] Address: [address] [place] [address] Performed By: #### 1 798-8, 66696-3, 3015-3 #### [facility] CLIA [id number] [address] [place] [address] [place] INTERPRETATION No serological evidence of celiac disease, however, if celiac disease is clinically suspected and patient is not on gluten-free diet, histological diagnosis may be considered. HLA testing may help with risk assessment. Normal [facility] Comment on above: Order Comment: Jayme [facility] Type: BLOOD SPECIMEN Ordering Facility: [facility] Address: [address] [place] [address] Performed By: #### 1 798-8, 78488-0, 3 #### [facility] CLIA [id number] [address] TRANSGLUTAMINASE IGA QUAL Negative Normal Negative, Test not Indicated [facility] Comment on above: Order Comment: Jayme [facility] Type: BLOOD SPECIMEN Ordering Facility: [facility] Address: [address] [place] [address] Result Comment: The following results were obtained with the [employer] (EPS) QAUNTA Lite h-tTG IgA DENISE. h-tTG IgA values obtained with different manufacturers' assay methods may not be used interchangeable. The magnitude of the reported IgA levels cannot be correlated to an endpoint titer. This is used as an aid in diagnosis of celiac disease. Clinical correlation is required. Performed By: #### 1 798-8, 14472-0, 3015-3 #### [facility] CLIA [id number] [address] [place] [address] [place] tTG IgA Qn (S) 3 Units Normal <20 [facility] Comment on above: Order Comment: Speci men Type: BLOOD SPECIMEN Ordering Facility: [facility] Address: [address] [place] [address] Performed By: #### 1 798-8, 73134-9, 6-3 #### [facility] CLIA [id number] [address] [place] [address] [facility] Comp Metab 2000 Pnl SerPlon 12-26-2021 Bilirubin [Mass/Vol] 0.4 mg/dL Normal 0.2-1.3 [facility] Comment on above: Order Comment: Speci men Type: BLOOD SPECIMEN Ordering Facility: [facility] Address: [address] [place] [address] Performed By: #### 1 798-8, 48973-7, 3015-3 #### [facility] CLIA [id number] [address] [place], [place] [address] [place] [address] Performed By: #### 5 0189-0 #### [facility] CLIA [id number] [address] [place] [address] [facility] Comprehensive metabolic 2000 panelon 12-26-2021 Albumin [Mass/Vol] 4.1 g/dL Normal 3.9-4.9 [facility] Comment on above: Order Comment: Speci men Type: BLOOD SPECIMEN Ordering Facility: [facility] Address: [address] [place] [address] Performed By: #### 1 798-8, 06509-7, 3 #### [facility] CLIA [id number] [address] [place] [address] [facility] ALP [Catalytic activity/Vol] 121 U/L Normal 34-123 [facility] Comment on above: Order Comment: Speci men Type: BLOOD SPECIMEN Ordering Facility: [facility] Address: [address] [place] [address] Performed By: #### 1 798-8, 81525-3, 3015-3 #### [facility] CLIA [id number] [address] [place] [address] [place] [facility] ALT With P-5'-P [Catalytic activity/Vol] 8 U/L Normal 7-38 [facility] Comment on above: Order Comment: Specgustavo harding Type: BLOOD SPECIMEN Ordering Facility: [facility] Address: [address] [place] [address] Performed By: #### 1 798-8, 91029-1, 3016-3 #### [facility] CLIA [id number] [address] [place] [address] [place] Anion gap [Moles/Vol] 9 mmol/L Normal 9-18 [facility] Comment on above: Order Comment: Jayme harding Type: BLOOD SPECIMEN Ordering Facility: [facility] Address: [address] [place] [address] Performed By: #### 1 798-8, 73768-8, 3016-3 #### [facility] CLIA [id number] [address] [place], [place] [address] [place] [address] [place] [facility] AST With P-5'-P [Catalytic activity/Vol] 15 U/L Normal 13-35 [facility] Comment on above: Order Comment: Jayme harding Type: BLOOD SPECIMEN Ordering Facility: [facility] Address: [address] [place] [address] Performed By: #### 1 798-8, 94025-1, 3016-3 #### [facility] CLIA [id number] [address] [place] [address] [place] Calcium [Mass/Vol] 10.0 mg/dL Normal 8.5-10.2 [facility] Comment on above: Order Comment: Jayme men Type: BLOOD SPECIMEN Ordering Facility: [facility] Address: [address] [place] [address] Performed By: #### 1 798-8, 50899-7, 3016-3 #### [facility] CLIA [id number] [address] [place] [address] [place] Chloride [Moles/Vol] 105 mmol/L Normal 97-105 [facility] Comment on above: Order Comment: Jayme harding Type: BLOOD SPECIMEN Ordering Facility: [facility] Address: [address] [place] [address] Performed By: #### 1 798-8, 61892-5, 3015-3 #### [facility] CLIA [id number] [address] [place] [address] [place] CO2 [Moles/Vol] 28 mmol/L Normal 22-30 [facility] Comment on above: Order Comment: Speci men Type: BLOOD SPECIMEN Ordering Facility: [facility] Address: [address] [place] [address] Performed By: #### 1 798-8, 25215-9, 3 #### [facility] CLIA [id number] [address] [place] [address] [facility] Creatinine [Mass/Vol] 0.54 mg/dL Low 0.58-0.96 [facility] Comment on above: Order Comment: Jayme harding Type: BLOOD SPECIMEN Ordering Facility: [facility] Address: [address] [place] [address] Performed By: #### 1 798-8, 09509-0, 3 #### [facility] CLIA [id number] [address] [place] [address] [facility] ESTIMATED GLOMERULAR FILTRATION RATE 108 mL/min/1.73m??? Normal >=60 [facility] Comment on above: Order Comment: Jayme harding Type: BLOOD SPECIMEN Ordering Facility: [facility] Address: [address] [place] [address] Result Comment: Janae mated Glomerular Filtration Rate (eGFR) is calculated using the 2020 CKD-EPI creatinine equation. This equation utilizes serum creatinine, sex, and age as parameters. The creatinine assay has traceable calibration to isotope dilution-mass spectrometry. Refer to KDIGO guidelines for clinical interpretation. In patients with unstable renal function, e.g. those with acute kidney injury, the eGFR may not accurately reflect actual GFR. Performed By: #### 1 798-8, 02979-1, 3015-3 #### [facility] CLIA [id number] [address] [place] [address] [place] Glucose [Mass/Vol] 94 mg/dL Normal 74-99 [facility] Comment on above: Order Comment: Jayme harding Type: BLOOD SPECIMEN Ordering Facility: [facility] Address: [address] [place] [address] Result Comment: The [place] Diabetes Association (ADA) provides guidance for cutoff values for fasting glucose and random glucose. The ADA defines fasting as no caloric intake for at least 8 hours. Fasting plasma glucose results between 100 to 125 mg/dL indicate increased risk for diabetes (prediabetes). Fasting plasma glucose results greater than or equal to 126 mg/dL meet the criteria for diagnosis of diabetes. In the absence of unequivocal hyperglycemia, results should be confirmed by repeat testing. In a patient with classic symptoms of hyperglycemia or hyperglycemic crisis, random plasma glucose results greater than or equal to 200 mg/dL meet the criteria for diagnosis of diabetes. Reference: Standards of Medical Care in Diabetes 2016, [place] Diabetes Association. Diabetes Care. 2016.39(Suppl 1). Performed By: #### 1 798-8, 00724-0, 3016-3 #### [facility] CLIA [id number] [address] [place] [address] [place] Potassium [Moles/Vol] 4.0 mmol/L Normal 3.7-5.1 [facility] Comment on above: Order Comment: Jayme harding Type: BLOOD SPECIMEN Ordering Facility: [facility] Address: [address] [place] [address] Performed By: #### 1 798-8, 65558-2, 3016-3 #### [facility] CLIA [id number] [address] [place] [address] [place] Protein [Mass/Vol] 6.9 g/dL Normal 6.3-8.0 [facility] Comment on above: Order Comment: Jayme harding Type: BLOOD SPECIMEN Ordering Facility: [facility] Address: [address] [place] [address] Performed By: #### 1 798-8, 88272-6, 3016-3 #### [facility] CLIA [id number] [address] [place] [address] [place] Sodium [Moles/Vol] 142 mmol/L Normal 136-144 [facility] Comment on above: Order Comment: Jayme harding Type: BLOOD SPECIMEN Ordering Facility: [facility] Address: [address] [place] [address] Performed By: #### 1 798-8, 20466-9, 3016-3 #### [facility] CLIA [id number] [address] [place] [address] [place] Urea nitrogen [Mass/Vol] 8 mg/dL Normal 7-21 [facility] Comment on above: Order Comment: Jayme harding Type: BLOOD SPECIMEN Ordering Facility: [facility] Address: [address] [place] [address] Performed By: #### 1 798-8, 60880-9, 3016-3 #### [facility] CLIA [id number] [address] [place] [address] [place] ESR Westergren method (Bld) [Velocity]on 12-26-2021 ESR (Bld) [Velocity] 19 mm/h Normal 0-30 [facility] Comment on above: Order Comment: Jayme harding Type: BLOOD SPECIMEN Ordering Facility: [facility] Address: [address] [place] [address] Performed By: #### 4 537-7 #### [facility] CLIA [id number] [address] [place] [address] [place] IgA SerPl-mCncon 12-26-2021 IgA [Mass/Vol] 126 mg/dL Normal 70-400 [facility] Comment on above: Order Comment: Jayme harding Type: BLOOD SPECIMEN Ordering Facility: [facility] Address: [address] [place] [address] Performed By: #### 2 458-8 #### [facility] CLIA [id number] [address] [place] [address] [place] bilirubin panel [Ma ss/Vol]on 12-26-2021 Bilirubin.conjugated [Mass/Vol] mg/dL Normal <0.2 [facility] Comment on above: Order Comment: Jayme harding Type: BLOOD SPECIMEN Ordering Facility: [facility] Address: [address] [place] [address] Performed By: #### 5 0189-0 #### [facility] CLIA [id number] [address] [place] [address] Bilirubin.indirect [Mass/Vol] mg/dL Normal <1.4 [facility] Comment on above: Order Comment: Jayme harding Type: BLOOD SPECIMEN Ordering Facility: [facility] Address: [address] [place] [address] Performed By: #### 5 0189-0 #### [facility] CLIA [id number] [address] [place] [address] [place] TSH SerPl-aCncon 12-26-2021 TSH Qn 1.490 m[IU]/L Normal 0.270-4.200 [facility] Comment on above: Order Comment: Jayme harding Type: BLOOD SPECIMEN Ordering Facility: [facility] Address: [address] [place] [address] Performed By: #### 1 798-8, 01497-5, 3016-3 #### [facility] CLIA [id number] [address] [place] [address] [facility] CNOVon 12-02-2021 CNOV Office Visit (LAURA) DIOR CARVAJAL ([id number]) 1965 F Date Time Provider Department 12/02/21 11:00 AM LEELA ESCOTO During your visit today, we recorded the following information about you: Temperature Pulse Respiration Blood pressure 97.9 degrees 79/minute 16/minute 110/68 Weight Height 80.9 kg 1.676 m Leela Escoto DO 12/17/2021 8:31 PM Signed SUBJECTIVE: 56 year old female for annual routine checkup. I have fully reviewed the past medical, surgical, social and family history and updated the Histories section of [facility]. Pt has history of chronic arthritis She takes tramadol bid for the pain She states this is not quite enough, but she does not want to become addicted to the medication She admits she will never be pain free Pain today is 4/10. Pain at its worst is 9/10 Pain is mostly in her neck She will see GI in [place] on 12/13 She has a history of chronic constipation and today has burning in her stomach She takes omeprazole for GERD She also has history of hypertension, GERD and hyperlipidemia. She smokes 1/4 PPD No LMP recorded. Patient has had a hysterectomy. ALLERGIES Allergen Reactions Aleve [Naproxen] Hives, Itching Iodinated Contrast * Other: See Comments dyspnea Latex Other: See Comments blisters Methadone Unknown Current Outpatient Medications Medication Sig Dispense Refill omeprazole (PRILOSEC) 40 mg capsule Take 1 capsule by mouth once daily. 90 capsule 1 traMADol (ULTRAM) 50 mg tablet Take 1 tablet by mouth twice daily for 30 days. 60 tablet 0 mirabegron (MYRBETRIQ) 25 mg Tb24 Take 1 tablet by mouth once daily. 90 tablet 1 atorvastatin (LIPITOR) 20 mg tablet Take 1 tablet by mouth once daily. 90 tablet 1 carvedilol (COREG) 3.125 mg tablet Take 1 tablet by mouth twice daily with meals. 180 tablet 1 Multivitamin capsule Take 1 capsule by mouth once daily. aspirin 81 mg chewable tablet Take 1 tablet by mouth once daily. 90 tablet 3 ESTRACE 0.01 % (0.1 mg/gram) vaginal cream Use 1 g vaginally twice a week. 1 Tube 3 No current facility-administered medications for this visit. ACTIVE PROBLEM LIST Urinary Incontinence, Mixed Osteoarthritis of Multiple Joints Essential Hypertension Abnormal Gait Constipation Dyslipidemia Multiple Joint Pain Tobacco Abuse Social History Tobacco Use Smoking status: Every Day Packs/day: 0.25 Years: 35.00 Pack years: 8.75 Types: Cigarettes Start date: 03/26/1979 Smokeless tobacco: Never Vaping Use Vaping Use: Never used Substance Use Topics Alcohol use: Not Currently Drug use: No Family History Problem Relation Age of Onset COPD Mother Heart Father irregular heartbeat Thyroid Sister non cancerous Reviewed past medical history, family history and surgeries. All medications and supplements were reviewed with the patient. REVIEW OF SYSTEMS GENERAL: No weight loss, malaise or fevers HEENT: Negative for frequent or significant headaches, No changes in hearing or vision, no nose bleeds or other nasal problems NECK: Negative for lumps, goiter, pain and significant neck swelling RESPIRATORY: Negative for cough, hemoptysis, wheezing, COPD, dyspnea or shortness of breath CARDIOVASCULAR: Negative for chest pain, leg swelling, hypertension, CHF or palpitations GI: Positive for heartburn, constipation, no nausea, vomiting, or diarrhea : No history of dysuria, frequency or incontinence MUSCULOSKELETAL: Negative for joint pain or swelling, back pain or muscle pain SKIN: Negative for lesions, rash, and itching PSYCH: Negative for sleep disturbance, mood disorder and recent psychosocial stressors HEMATOLOGY/LYMPHOLOGY: Negative for prolonged bleeding, bruising easily or swollen nodes ENDOCRINE: Negative for cold or heat intolerance, polyuria, polydipsia and goiter NEURO: No history of headaches, syncope, paralysis, seizures or tremors PHYSICAL EXAMINATION: BP 110/68 (BP Site: Right Arm, BP Position: Sitting, BP Cuff Size: Regular Adult) Pulse 79 Temp 36.6 ?C (97.9 ?F) Resp 16 Ht 167.6 cm (5' 6) Wt 80.9 kg (178 lb 6.4 oz) SpO2 93% BMI 28.79 kg/m? General appearance: Well appearing, alert, in no acute distress, well-hydrated, well nourished. Skin: Skin color, texture, turgor normal, no suspicious rashes or lesions Head: Normocephalic, no masses, lesions, tenderness or abnormalities Eyes: Anicteric sclera. Pupils are equally round and reactive to light. Extraocular movements are intact. Ears: External ears normal, canals clear Nose/Sinuses: Nares normal, septum midline, mucosa normal, no drainage or sinus tenderness Oropharynx: Lips, mucosa, and tongue normal, teeth and gums normal, oropharynx normal Neck: Supple, no adenopathy; thyroid symmetric, normal size, no bruits Back: Normal exam Lungs: Lungs clear to auscultation. No wheez (more content not included)... Normal [facility] SCREENINGon 06-22-2020 [facility] SCREENING Final Report DATE OF EXAM: Jun 22 2020 11:05AM LDW [id number] - [facility] SCREENING / PROCEDURE REASON: Encounter for screening mammogram for malignant neoplasm of breast Physician Interpretation #[id number] - [facility] SCREENING BILATERAL DIGITAL SCREENING MAMMOGRAM WITH CAD: 06/22/2020 HISTORY: / Screening Mammogram-Patient reports NO symptoms. RESULT: TECHNIQUE: The study was acquired using full field digital technology and interpreted from soft copy. Current study was also evaluated with a Computer Aided Detection (CAD). Comparison is made to exams dated: 06/05/2019 mammogram, 05/23/2018 mammogram, 05/17/2017 mammogram, 05/03/2017 mammogram, 01/19/2016 mammogram, and 01/06/2016 mammogram - [facility]. The tissue of both breasts is heterogeneously dense. This may lower the sensitivity of mammography. No significant masses, calcifications, or other findings are seen in either breast. There has been no significant interval change. IMPRESSION: NEGATIVE There is no mammographic evidence of malignancy. A 1 year screening mammogram is recommended. Ricky morrison/zara:06/22/2020 11:41:39 Program Coordinator Executive Education(s): Justin Hopper (Merlin)(M), [facility] letter sent: Normal over 40 Mammogram BI-RADS: 1 Negative Multiple national specialty organizations have released breast cancer screening guidelines for women at average risk for developing breast cancer - guidelines that are based on both evidence and opinion, yet differ on when to start and how often to screen for breast cancer. With representation from Breast Imaging, Internal Medicine, Women's Health, Family Medicine, and Medical/Surgical Oncology, the [facility] has carefully reviewed the data and reached the following consensus: 1) All women should engage in shared decision-making with their providers to decide when to start and how often to screen; 2) All women should have the opportunity to start screening mammography at age 40; 3) For women ages 45-55, we recommend annual screening mammograms; 4) For women ages 55 and over, we support both the transition from an annual to a biennial interval if this aligns more with patient's values and preferences, or continuation with annual screening; 5) All women should discuss with their providers when to stop screening mammograms. Laundry Aide: Zara Transcribe Date/Time: Jun 22 2020 10:34A Dictated by : RICKY OROPEZA MD This examination was interpreted and the report reviewed and electronically signed by: RICKY OROPEZA MD on Jun 22 2020 11:41AM EST Normal [facility] Vital Signs Date Time Vital Sign Value Performing Clinician Facility 11-05-2024 10:03-0400 Body temperature 97.59 [degF] Mini Whyte MD Work Phone: [facility] 11-05-2024 10:03-0400 Diastolic blood pressure 54 mm[Hg] Mini Whyte MD Work Phone: [facility] 11-05-2024 10:03-0400 Heart rate 67 /min Mini Whyte MD Work Phone: [facility] 11-05-2024 10:03-0400 Respiratory rate 17 /min Mini Whyte MD Work Phone: [facility] 11-05-2024 10:03-0400 SaO2% (BldA) [Mass fraction] 97 % Mini Whyte MD Work Phone: [facility] 11-05-2024 10:03-0400 Systolic blood pressure 104 mm[Hg] Mini Whyte MD Work Phone: [facility] 07-31-2024 09:19-0400 Diastolic blood pressure 58 mm[Hg] Mini Whyte MD Work Phone: [facility] Comment on above: notified 07-31-2024 09:19-0400 Systolic blood pressure 81 mm[Hg] Mini Whyte MD Work Phone: [facility] Comment on above: notified 07-31-2024 09:14-0400 Body temperature 98.2 [degF] Mini Whyte MD Work Phone: [facility] 07-31-2024 09:14-0400 Heart rate 59 /min Mini Whyte MD Work Phone: [facility] Comment on above: md notified 07-31-2024 09:14-0400 Respiratory rate 17 /min Mini Whyte MD Work Phone: [facility] 07-31-2024 09:14-0400 SaO2% (BldA) [Mass fraction] 96 % Mini Whyte MD Work Phone: [facility] 05-26-2024 14:38-0500 Diastolic blood pressure 50 mm[Hg] Dior Anguiano MD Work Phone: [facility] 05-26-2024 14:38-0500 Heart rate 64 /min Dior Anguiano MD Work Phone: [facility] 05-26-2024 14:38-0500 SaO2% (BldA) [Mass fraction] 99 % Dior Anguiano MD Work Phone: [facility] 05-26-2024 14:38-0500 Systolic blood pressure 107 mm[Hg] Dior Anguiano MD Work Phone: [facility] 05-26-2024 13:23-0500 Body temperature 97.81 [degF] Mini Whyte MD Work Phone: [facility] 05-26-2024 13:23-0500 Diastolic blood pressure 50 mm[Hg] Mini Whyte MD Work Phone: [facility] 05-26-2024 13:23-0500 Heart rate 64 /min Mini Whyte MD Work Phone: [facility] 05-26-2024 13:23-0500 Respiratory rate 17 /min Mini Whyte MD Work Phone: [facility] 05-26-2024 13:23-0500 SaO2% (BldA) [Mass fraction] 99 % Mini Whyte MD Work Phone: [facility] 05-26-2024 13:23-0500 Systolic blood pressure 107 mm[Hg] Mini Whyte MD Work Phone: [facility] 02-28-2024 14:51-0500 Body temperature 98.01 [degF] Mini Whyte MD Work Phone: [facility] 02-28-2024 14:51-0500 Diastolic blood pressure 39 mm[Hg] Mini Whyte MD Work Phone: [facility] Comment on above: notified 02-28-2024 14:51-0500 Heart rate 71 /min Mini Whyte MD Work Phone: [facility] 02-28-2024 14:51-0500 Respiratory rate 17 /min Mini Whyte MD Work Phone: [facility] 02-28-2024 14:51-0500 SaO2% (BldA) [Mass fraction] 98 % Mini Whyte MD Work Phone: [facility] 02-28-2024 14:51-0500 Systolic blood pressure 107 mm[Hg] Mini Whyte MD Work Phone: [facility] Comment on above: md notified 02-10-2024 20:22-0500 Body temperature 97.81 [degF] Kyle Lane APRN.FIBERGLASS DOWEL DRAWING OPERATOR Work Phone: [facility] 02-10-2024 20:22-0500 Diastolic blood pressure 61 mm[Hg] Kyle Lane APRN.FIBER[employer] DOWEL DRAWING OPERATOR Work Phone: [facility] 02-10-2024 20:22-0500 Heart rate 78 /min Kyle Lane APRN.F[employer]ER[employer] DOWEL DRAWING OPERATOR Work Phone: [facility] 02-10-2024 20:22-0500 Respiratory rate 18 /min Kyle Lane APRN.F[employer]ER[employer] DOWEL DRAWING OPERATOR Work Phone: [facility] 02-10-2024 20:22-0500 SaO2% (BldA) [Mass fraction] 97 % Kyle Lane APRN.F[employer]ER[employer] DOWEL DRAWING OPERATOR Work Phone: [facility] 02-10-2024 20:22-0500 Systolic blood pressure 115 mm[Hg] Kyle Lane APRN.F[employer]ER[employer] DOWEL DRAWING OPERATOR Work Phone: [facility] 02-07-2024 11:34-0500 Body temperature 98.49 [degF] Hayder Smitha DPM Work Phone: [facility] 02-07-2024 11:34-0500 Diastolic blood pressure 70 mm[Hg] Hayder Smitha DPM Work Phone: [facility] 02-07-2024 11:34-0500 Heart rate 74 /min Hayder Smitha DPM Work Phone: [facility] 02-07-2024 11:34-0500 Respiratory rate 18 /min Hayder Smitha DPM Work Phone: [facility] 02-07-2024 11:34-0500 SaO2% (BldA) [Mass fraction] 98 % Hayder Smitha DPM Work Phone: [facility] 02-07-2024 11:34-0500 Systolic blood pressure 105 mm[Hg] Hayder Smitha DPM Work Phone: [facility] 01-17-2024 10:22-0400 Body mass index (BMI) [Ratio] 29.14 kg/m2 Mini Whyte MD Work Phone: [facility] 01-17-2024 10:22-0400 Body temperature 98.2 [degF] Mini Whyte MD Work Phone: [facility] 01-17-2024 10:22-0400 Body weight 81.9 kg Mini Whyte MD Work Phone: [facility] 01-17-2024 10:22-0400 Diastolic blood pressure 49 mm[Hg] Mini Whyte MD Work Phone: [facility] Comment on above: provider made aware 01-17-2024 10:22-0400 Heart rate 68 /min Mini Whyte MD Work Phone: [facility] 01-17-2024 10:22-0400 Respiratory rate 20 /min Mini Whyte MD Work Phone: [facility] 01-17-2024 10:22-0400 SaO2% (BldA) [Mass fraction] 100 % Mini Whyte MD Work Phone: [facility] Comment on above: RA 01-17-2024 10:22-0400 Systolic blood pressure 104 mm[Hg] Mini Whyte MD Work Phone: [facility] Comment on above: provider made aware 01-14-2024 18:26-0400 Body temperature 97.2 [degF] Kyle Lane APRN.FIBERGL[employer] DOWEL DRAWING OPERATOR Work Phone: [facility] 01-14-2024 18:26-0400 Diastolic blood pressure 79 mm[Hg] Kyle Lane APRN.F[employer]ER[employer] DOWEL DRAWING OPERATOR Work Phone: [facility] 01-14-2024 18:26-0400 Heart rate 77 /min Kyle Lane APRN.F[employer]ER[employer] DOWEL DRAWING OPERATOR Work Phone: [facility] 01-14-2024 18:26-0400 Respiratory rate 18 /min Kyle Lane APRN.F[employer]ER[employer] DOWEL DRAWING OPERATOR Work Phone: [facility] 01-14-2024 18:26-0400 SaO2% (BldA) [Mass fraction] 92 % Kyle Lane APRN.F[employer]ER[employer] DOWEL DRAWING OPERATOR Work Phone: [facility] 01-14-2024 18:26-0400 Systolic blood pressure 127 mm[Hg] Kyle Lane APRN.F[employer]ER[employer] DOWEL DRAWING OPERATOR Work Phone: [facility] 12-06-2023 11:16-0400 Body temperature 98.49 [degF] Hayder Smitha DPM Work Phone: [facility] 12-06-2023 11:16-0400 Diastolic blood pressure 70 mm[Hg] Hayder Smitha DPM Work Phone: [facility] 12-06-2023 11:16-0400 Heart rate 77 /min Hayder Smitha DPM Work Phone: [facility] 12-06-2023 11:16-0400 Respiratory rate 18 /min Hayder Smitha DPM Work Phone: [facility] 12-06-2023 11:16-0400 SaO2% (BldA) [Mass fraction] 99 % Hayedr Smitha DPM Work Phone: [facility] 12-06-2023 11:16-0400 Systolic blood pressure 122 mm[Hg] Hayder Smitha DPM Work Phone: [facility] 10-04-2023 14:22-0400 Body temperature 98.4 [degF] Hayder Smitha DPM Work Phone: [facility] 10-04-2023 14:22-0400 Diastolic blood pressure 70 mm[Hg] Hayder Smitha DPM Work Phone: [facility] 10-04-2023 14:22-0400 Heart rate 72 /min Hayder Smitha DPM Work Phone: [facility] 10-04-2023 14:22-0400 Respiratory rate 18 /min Hayder Smitha DPM Work Phone: [facility] 10-04-2023 14:22-0400 SaO2% (BldA) [Mass fraction] 99 % Hayder Smitha DPM Work Phone: [facility] 10-04-2023 14:22-0400 Systolic blood pressure 118 mm[Hg] Hayder Smitha DPM Work Phone: [facility] 07-26-2023 19:19-0400 Body temperature 98.4 [degF] Hayder Smitha DPM Work Phone: [facility] 07-26-2023 19:19-0400 Diastolic blood pressure 70 mm[Hg] Hayder Smitha DPM Work Phone: [facility] 07-26-2023 19:19-0400 Heart rate 78 /min Hayder Smitha DPM Work Phone: [facility] 07-26-2023 19:19-0400 Respiratory rate 18 /min Hayder Smitha DPM Work Phone: [facility] 07-26-2023 19:19-0400 SaO2% (BldA) [Mass fraction] 99 % Hayder Smitha DPM Work Phone: [facility] 07-26-2023 19:19-0400 Systolic blood pressure 117 mm[Hg] Hayder Smitha DPM Work Phone: [facility] 05-24-2023 17:38-0500 Body temperature 97 [degF] Hayder Smitha DPM Work Phone: [facility] 05-24-2023 17:38-0500 Diastolic blood pressure 70 mm[Hg] Hayder Smitha DPM Work Phone: [facility] 05-24-2023 17:38-0500 Heart rate 70 /min Hayder Smitha DPM Work Phone: [facility] 05-24-2023 17:38-0500 Respiratory rate 18 /min Hayder Smitha DPM Work Phone: [facility] 05-24-2023 17:38-0500 SaO2% (BldA) [Mass fraction] 99 % Hayder Smitha DPM Work Phone: [facility] 05-24-2023 17:38-0500 Systolic blood pressure 115 mm[Hg] Hayder Smitha DPM Work Phone: [facility] 11-02-2022 09:24-0400 Body temperature 97.81 [degF] Hayder Smitha DPM Work Phone: [facility] 11-02-2022 09:24-0400 Diastolic blood pressure 70 mm[Hg] Hayder Smitha DPM Work Phone: [facility] 11-02-2022 09:24-0400 Heart rate 70 /min Hayder Smitha DPM Work Phone: [facility] 11-02-2022 09:24-0400 Respiratory rate 18 /min Hayder Smitha DPM Work Phone: [facility] 11-02-2022 09:24-0400 SaO2% (BldA) [Mass fraction] 99 % Hayder Smitha DPM Work Phone: [facility] 11-02-2022 09:24-0400 Systolic blood pressure 110 mm[Hg] Hayder Smitha DPM Work Phone: [facility] 08-24-2022 15:31-0400 Body temperature 97.5 [degF] Hayder Smitha DPM Work Phone: [facility] 08-24-2022 15:31-0400 Diastolic blood pressure 70 mm[Hg] Hayder Smitha DPM Work Phone: [facility] 08-24-2022 15:31-0400 Heart rate 77 /min Hayder Smitha DPM Work Phone: [facility] [facility] 08-24-2022 15:31-0400 Respiratory rate 17 /min Hayder Smitha DPM Work Phone: [facility] 08-24-2022 15:31-0400 SaO2% (BldA) [Mass fraction] 99 % Hayder Smitha DPM Work Phone: [facility] 08-24-2022 15:31-0400 Systolic blood pressure 110 mm[Hg] Hadyer Smitha DPM Work Phone: [facility] 05-25-2022 11:07-0500 Body height 167.6 cm Leela Sheets DO Work Phone: [facility] 05-25-2022 11:07-0500 Body temperature 98.1 [degF] Leela Sheets DO Work Phone: [facility] 05-25-2022 11:07-0500 Body weight 79.83 kg Leela Sheets DO Work Phone: [facility] 05-25-2022 11:07-0500 Diastolic blood pressure 70 mm[Hg] Leela Sheets DO Work Phone: [facility] 05-25-2022 11:07-0500 Heart rate 87 /min Leela Sheets DO Work Phone: [facility] 05-25-2022 11:07-0500 SaO2% (BldA) [Mass fraction] 93 % Leela Sheets DO Work Phone: [facility] 05-25-2022 11:07-0500 Systolic blood pressure 110 mm[Hg] Leela Sheets DO Work Phone: [facility] 03-29-2022 10:35-0500 Body height 167.6 cm Elise Coyner GLOBE CLEANER.FIBERGLASS DOWEL DRAWING OPERATOR Work Phone: [facility] 03-29-2022 10:35-0500 Body weight 79.38 kg Elise Coyner GLOBE CLEANER.FIBERGLASS DOWEL DRAWING OPERATOR Work Phone: [facility] 02-24-2022 10:51-0500 Body height 167.6 cm Leela Sheets DO Work Phone: [facility] 02-24-2022 10:51-0500 Body temperature 97.81 [degF] Leela Sheets DO Work Phone: [facility] 02-24-2022 10:51-0500 Body weight 80.74 kg Leela Sheets DO Work Phone: [facility] 02-24-2022 10:51-0500 Diastolic blood pressure 68 mm[Hg] Leela Sheets DO Work Phone: [facility] 02-24-2022 10:51-0500 Heart rate 74 /min Leela Sheets DO Work Phone: [facility] 02-24-2022 10:51-0500 Respiratory rate 16 /min Leela Sheets DO Work Phone: [facility] 02-24-2022 10:51-0500 SaO2% (BldA) [Mass fraction] 93 % Leela Escoto DO Work Phone: [facility] 02-24-2022 10:51-0500 Systolic blood pressure 118 mm[Hg] Leela Escoto DO Work Phone: [facility] Encounters Encounter Date Encounter Type Care Provider Facility Start: 11-10-2024 End: 11-10-2024 Orders Only Mini Whyte MD Work Phone: [facility] Comment on above: Glioblastoma (HCC) ( Primary Dx) Start: 11-07-2024 End: 11-13-2024 Telephone encounter Mini Whyte MD Work Phone: [facility] Comment on above: MARYJANE 2-4 weeks MARYJANE 3 months Start: 11-06-2024 End: 11-06-2024 ambulatory [facility] Facility:[facility] Start: 11-06-2024 End: 11-06-2024 Patient encounter procedure Lillie Horton MD Work Phone: [facility] Comment on above: 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); Spasticity; History of brain tumor; History of stroke Start: 11-05-2024 End: 11-05-2024 [facility] Facility:[facility] Start: 11-05-2024 End: 11-05-2024 Patient encounter procedure Mini Whyte MD Work Phone: [facility] Comment on above: Astrocytoma brain tu mor (HCC) (Primary Dx); Spasticity; Cognitive decline Start: 11-04-2024 [facility] Facility:[facility] Start: 11-04-2024 End: 11-04-2024 Subsequent hospital visit by physician [facility] (I-Stat/1.5t) Work Phone: Radiology Comment on above: 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 Everett Cantor MD -[facility] Start: 08-13-2024 End: 08-13-[address] Josi Garcia MD [facility] Work Phone: Start: 08-13-2024 End: 08-13-[address] Everett Cantor MD -[facility] Start: 08-13-[address] Everett Cantor MD -[facility] Start: 08-13-2024 End: 08-13-2024 ambulatory Everett CURRIE Facility:[facility] Start: 08-08-2024 End: 08-08-[address] Josi Garcia MD [facility] Work Phone: Start: 08-08-2024 End: 08-08-[address] Everett Cantor MD -[facility] Start: 08-07-2024 End: 08-08-2024 ambulatory Everett CURRIE Facility:[facility] Start: 08-07-[address] Josi Garcia MD -[facility] Start: 08-05-2024 End: 08-06-2024 Orders Only Mini Whyte MD Work Phone: [facility] Comment on above: Astrocytoma brain tu mor (HCC) (Primary Dx) MARYJANE 4 weeks Start: 07-31-2024 End: 07-31-2024 ambulatory MINI WHYTE Facility:[facility] Start: 07-31-2024 End: 07-31-2024 Patient encounter procedure Mini Whyte MD Work Phone: [facility] Comment on above: Spasticity (Primary Dx); Astrocytoma brain tumor (HCC) Start: 07-25-2024 End: 09-24-2024 Follow-up encounter Mini Whyte MD Work Phone: [facility] Start: 07-24-2024 ambulatory MINI WHYTE Facility:[facility] Start: 07-24-2024 End: 07-24-2024 Subsequent hospital visit by physician [facility] (I-Stat/1.5t) Work Phone: Radiology Comment on above: 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] Start: 06-27-2024 End: 06-27-2024 Telephone encounter Mini Whyte MD Work Phone: Hematology/Oncology Comment on above: MARYJANE 07/2024 Start: 06-12-2024 End: 11-12-2024 Telephone encounter Mini Whyte MD Work Phone: [facility] Start: 06-09-2024 End: 06-09-2024 Telephone encounter Diane Siu GLOBE CLEANER.FIBERGLASS DOWEL DRAWING OPERATOR Work Phone: [facility] Comment on above: Appointment Start: 05-28-2024 End: 05-28-2024 Orders Only Mini Whyte MD Work Phone: [facility] Comment on above: Anaplastic astrocyto ma (HCC) (Primary Dx) Start: 05-26-2024 End: 05-26-2024 ambulatory DIOR ANGUIANO Facility:[facility] Start: 05-26-2024 End: 05-26-2024 Office outpatient new 60 minutes Dior Anguiano MD Work Phone: [facility] Comment on above: Hyperlipidemia, unsp ecified hyperlipidemia type (Primary Dx); Allergy to intravenous contrast media; Anaplastic astrocytoma (HCC); Mild cognitive impairment; Cognitive decline; Occlusion and stenosis of unspecified carotid artery; Pathological fracture, other site, initial encounter for fracture; Injury of cervical spinal cord, sequela (HCC); Quadriplegia (HCC) Start: 05-26-2024 End: 05-28-2024 Telephone encounter Mini Whyte MD Work Phone: [facility] Comment on above: MARYJANE 3-4 weeks Sign up for My chart MARYJANE 4 weeks Start: 05-26-2024 End: 05-26-2024 ambulatory SELF Facility:[facility] Start: 05-26-2024 End: 05-26-2024 Patient encounter procedure Mini Whyte MD Work Phone: [facility] Comment on above: 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) (Primary Dx); Spondylosis of cervical joint; Cognitive decline; Mild cognitive impairment; Injury of cervical spinal cord, sequela (HCC); Quadriplegia (HCC); Hemiparesis, unspecified hemiparesis etiology, unspecified laterality (HCC); Pathological fracture, other site, initial encounter for fracture; Occlusion and stenosis of unspecified carotid artery; Muscle spasticity Start: 05-26-2024 End: 05-26-2024 ambulatory MINIKATHRINE SPEARSCLIVE Facility:[facility] Start: 05-26-2024 End: 05-26-2024 Subsequent hospital visit by physician [facility] Comment on above: Allergy to intraveno us contrast media [Z91.041] 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] Start: 05-15-2024 End: 05-15-2024 Telephone encounter Mini Whyte MD Work Phone: Hematology/Oncology Comment on above: Patient Update Start: 05-13-2024 End: 07-13-2024 Follow-up encounter Mini Whyte MD Work Phone: [facility] Start: 05-13-2024 End: 05-13-2024 Telephone encounter Mini Whyte MD Work Phone: [facility] Start: 05-12-2024 End: 05-26-2024 Telephone encounter Mini Whyte MD Work Phone: [facility] Comment on above: MARYJANE Add on for 05/26 Start: 05-09-2024 End: 05-09-2024 Telephone encounter Mini Whyte MD Work Phone: [facility] Start: 05-08-2024 End: 05-08-2024 Telephone encounter Mini Whyte MD Work Phone: [facility] Start: 05-08-2024 End: 05-09-2024 ambulatory Mini Whyte MD Work Phone: [facility] Comment on above: 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) (Primary Dx); Allergy to intravenous contrast media; Anaplastic astrocytoma (HCC); Mild cognitive impairment; Cognitive decline; Spondylosis of cervical joint; Injury of cervical spinal cord, sequela (HCC); H/O laminectomy Start: 05-08-2024 End: 05-09-2024 Telemedicine consultation with patient Mini Whyte MD Work Phone: [facility] Start: 05-07-2024 End: 05-07-2024 Orders Only Mini Whyte MD Work Phone: [facility] Comment on above: Brain tumor (HCC) (P rimary Dx) Start: 05-02-2024 End: 05-02-2024 Telephone encounter Mini Whyte MD Work Phone: Hematology/Oncology Comment on above: Images requested MRA /MRI Start: 04-29-2024 End: 04-29-[address] Josi Garcia MD [facility] Work Phone: Start: 04-29-2024 End: 04-29-[address] Josi Garcia MD -MRI - [facility] Work Phone: Start: 04-29-2024 End: 04-29-2024 ambulatory KAREN CHÁVEZ Facility:[facility] Start: 04-11-2024 End: 04-11-2024 Telephone encounter Mini Whyte MD Work Phone: Hematology/Oncology Comment on above: Patient Update Start: 04-07-2024 ambulatory KAREN CHÁVEZ Facility:[facility] Start: 04-01-2024 End: 04-01-2024 Telephone encounter Mini Whyte MD Work Phone: [facility] Comment on above: Confirm appt for 04/02 Start: 03-31-2024 End: 03-31-2024 Telephone encounter Mini Whyte MD Work Phone: [facility] Comment on above: Instrument Tech - 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 Josi Garcia MD -[facility] Start: 03-31-2024 End: 03-31-2024 ambulatory Josi CURRIE Facility:[facility] Start: 03-28-2024 ambulatory Josi CURRIE Facili ty:[facility] Start: 03-28-[address] Josi Garcia MD -[facility] Start: 03-27-2024 End: 03-27-[address] Josi Garcia MD -[facility] Start: 03-27-2024 End: 03-27-2024 ambulatory Josi CURRIE Facility:[facility] Start: 03-24-2024 End: 03-24-2024 ambulatory Gerda Dee RN Work Phone: [facility] Comment on above: Facility change to [facility] Start: 03-24-2024 End: 03-24-2024 Telephone encounter Mini Whyte MD Work Phone: [facility] Comment on above: MRA 04/02/24- facility aware Allergy to intraveno us contrast media; Anaplastic astrocytoma (HCC); Mild cognitive impairment; Cognitive decline Start: 03-20-2024 End: 03-20-2024 ambulatory Zora Flores APRN.FIBERGLASS DOWEL DRAWING OPERATOR Work Phone: [facility] Comment on above: Acute cystitis witho ut hematuria (Primary Dx) Start: 03-20-2024 End: 03-20-2024 Telemedicine consultation with patient Zora Flores APRN.FIBERGLASS DOWEL DRAWING OPERATOR Work Phone: [facility] Start: 03-18-2024 End: 03-18-2024 ambulatory 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 Work Phone: [facility] Comment on above: Acute cystitis witho ut hematuria (Primary Dx) Start: 03-18-2024 End: 03-18-2024 Telemedicine consultation with patient Zora Flores APRN.FIBERGLASS DOWEL DRAWING OPERATOR Work Phone: [facility] Start: 03-14-2024 End: 03-14-2024 ambulatory Gerda Dee RN Work Phone: [facility] Comment on above: Pathology slides and records requested Path slides not avai lable Start: 03-10-2024 End: 03-11-2024 Telephone encounter Mini Whyte MD Work Phone: [facility] Comment on above: Orders (Premedicatio n for contrast allergy) Start: 03-05-2024 End: 03-10-2024 Orders Only Mini Whyte MD Work Phone: [facility] Comment on above: Allergy to intraveno us contrast media; Anaplastic astrocytoma (HCC); Mild cognitive impairment; Cognitive decline Future Appointment ( New Patient [place] Any) Start: 03-04-2024 End: 04-08-2024 Orders Only Mini Whyte MD Work Phone: Hematology/Oncology Comment on above: Astrocytoma brain tu mor (HCC) (Primary Dx) MARYJANE 2-3 weeks MARYJANE week of 05/26/24 Start: 03-04-2024 End: 03-06-2024 Patient encounter procedure Macarena Bain Work Phone: [facility] Start: 03-04-2024 End: 03-06-2024 Progress Note Macarena Bain Work Phone: [facility] Start: 02-28-2024 End: 02-28-2024 Orders Only Mini Whyte MD Work Phone: [facility] Comment on above: Anaplastic astrocyto ma (HCC) (Primary Dx); Cognitive decline 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] Allergy to intraveno us contrast media (Primary Dx); Anaplastic astrocytoma (HCC); Mild cognitive impairment; Cognitive decline; Occlusion and stenosis of unspecified carotid artery; Pathological fracture, other site, initial encounter for fracture; Injury of cervical spinal cord, sequela (HCC); Quadriplegia (HCC) Start: 02-18-2024 End: 02-18-2024 Orders Only Zora Flores APRN.FIBERGLASS DOWEL DRAWING OPERATOR Work Phone: [facility] Comment on above: Osteoarthritis invol ving multiple joints on both sides of body (Primary Dx) Start: 02-13-2024 End: 02-14-2024 ambulatory [facility] Facility:[facility] Start: 02-10-2024 End: 02-10-[address] JESSE.FIBERGLASS DOWEL DRAWING OPERATOR Work Phone: [facility] Comment on above: Fall, initial encoun ter (Primary Dx) Start: 02-10-2024 End: 02-10-2024 Telemedicine consultation with patient Kyle Lane JESSE.FIBERGLASS DOWEL DRAWING OPERATOR Work Phone: [facility] Start: 02-07-2024 End: 02-07-2024 Unlisted evaluation and management service Hayder Bone DPM Work Phone: Dr. London Campos [facility] Comment on above: Nail dystrophy (Prim josie Dx); Aspirin long-term use Start: 02-06-2024 End: 02-06-2024 Telephone encounter Mini Whyte MD Work Phone: [facility] Comment on above: Returning Patient's Call; Appointment Appointment confirma tion =facility updated Start: 01-24-2024 End: 01-24-2024 Refill Zora Flores APRN.FIBERGLASS DOWEL DRAWING OPERATOR Work Phone: [facility] Start: 01-23-2024 End: 01-23-2024 Orders Only Mini Whyte MD Work Phone: Hematology/Oncology Comment on above: Astrocytoma (HCC) (P rimary Dx) Start: 01-21-2024 End: 02-01-2024 Telephone encounter Mini Whyte MD Work Phone: [facility] Comment on above: MARYJANE week of 02/25/24 Appointment follow u p Start: 01-17-2024 End: 01-17-2024 ambulatory LEELA ESCOTO Facility:[facility] Start: 01-17-2024 End: 01-17-2024 Patient encounter procedure Mini Whyte MD Work Phone: [facility] Comment on above: Anaplastic astrocyto ma (HCC) (Primary Dx); Hemiparesis, unspecified hemiparesis etiology, unspecified laterality (HCC); Mild cognitive impairment; Cognitive decline Start: 01-15-2024 End: 01-15-2024 ambulatory Gerda Dee RN Work Phone: [facility] Comment on above: Chart prep/record re view Start: 01-14-2024 End: 01-14-[address] APRN.CNP Work Phone: [facility] Comment on above: Fall, initial encoun ter (Primary Dx) Start: 01-14-2024 End: 01-14-2024 Telemedicine consultation with patient Kyle Mele MAYENFIBERGLASS DOWEL DRAWING OPERATOR Work Phone: [facility] Start: 01-08-2024 End: 01-08-2024 Telephone encounter [facility] Comment on above: Triage (Initial Call ) Start: 01-01-2024 End: 01-01-2024 ambulatory Zora Flores APRN.FIBERGLASS DOWEL DRAWING OPERATOR Work Phone: [facility] Comment on above: Foul smelling urine (Primary Dx); Recurrent UTI Start: 01-01-2024 End: 01-03-2024 Patient encounter procedure Macarena Bain Work Phone: [facility] Start: 01-01-2024 End: 01-03-2024 Progress Note Macarena Bain Work Phone: [facility] Start: 01-01-2024 End: 01-01-2024 Telemedicine consultation with patient Zora Flores APRN.FIBERGLASS DOWEL DRAWING OPERATOR Work Phone: [facility] Start: 12-25-2023 End: 12-25-2023 ambulatory LEELA ESCOTO Facility:[facility] Start: 12-25-2023 End: 12-25-2023 Subsequent hospital visit by physician [facility] Radiology Ct Scan Start: 12-24-2023 End: 12-24-2023 Telephone encounter Johanny Quinn RN Radiology Ct Scan Comment on above: Results; Appointment Start: 12-06-2023 End: 12-06-2023 ambulatory Zora Flores APRN.FIBERGLASS DOWEL DRAWING OPERATOR Work Phone: [facility] Comment on above: Osteoarthritis of mu ltiple joints, unspecified osteoarthritis type (Primary Dx); Essential hypertension; Chronic cervical pain Start: 12-06-2023 End: 12-06-2023 Telemedicine consultation with patient Zora Flores JESSE.FIBERGLASS DOWEL DRAWING OPERATOR Work Phone: [facility] Start: 12-06-2023 End: 12-10-2023 Unlisted evaluation and management service Hayder Bone DPM Work Phone: Dr. London Campos [facility] Comment on above: Nail dystrophy (Prim josie Dx); Aspirin long-term use Start: 11-29-2023 End: 11-29-2023 ambulatory Zora Flores APRN.FIBERGLASS DOWEL DRAWING OPERATOR Work Phone: [facility] Comment on above: Foul smelling urine (Primary Dx) Start: 11-29-2023 End: 11-29-2023 Telemedicine consultation with patient Zora Zacarias MOLINA.FIBERGLASS DOWEL DRAWING OPERATOR Work Phone: [facility] Start: 11-06-2023 ambulatory Zora Flores APRN.FIBERGLASS DOWEL DRAWING OPERATOR Work Phone: [facility] Comment on above: Leukocytosis, unspec ified type (Primary Dx); Confusion Start: 11-06-2023 Patient encounter procedure Itri A Odell Work Phone: [facility] Start: 11-06-2023 Progress Note Itri A Odell Work Phone: [facility] Start: 11-06-2023 Telemedicine consultation with patient 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 Work Phone: [facility] Start: 10-11-2023 ambulatory Zora Zacarias GLOBE CLEANER.FIBERGLASS DOWEL DRAWING OPERATOR Work Phone: [facility] Comment on above: Osteoarthritis of mu ltiple joints, unspecified osteoarthritis type (Primary Dx); Left hip pain; Chronic neck pain; Essential hypertension Start: 10-11-2023 Telemedicine consultation with patient 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 Work Phone: [facility] Start: 10-04-2023 Unlisted evaluation and management service Hayder Bone DPM Work Phone: Dr. London Campos [facility] Comment on above: Nail dystrophy (Prim josie Dx); Aspirin long-term use Start: 09-11-2023 Patient encounter procedure Macarena Layn Work Phone: [facility] Start: 09-11-2023 Progress Note Itrgustavo Layn Work Phone: [facility] Start: 08-28-2023 ambulatory 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 Work Phone: [facility] Comment on above: Osteoarthritis of mu ltiple joints, unspecified osteoarthritis type (Primary Dx); Left hip pain Start: 08-28-2023 Telemedicine consultation with patient Zora Flores JESSE.FIBERGLASS DOWEL DRAWING OPERATOR Work Phone: [facility] Start: 08-16-2023 ambulatory Zora Flores APRN.FIBERGLASS DOWEL DRAWING OPERATOR Work Phone: [facility] Comment on above: Osteoarthritis of mu ltiple joints, unspecified osteoarthritis type (Primary Dx); Chronic neck pain; Essential hypertension Start: 08-16-2023 Telemedicine consultation with patient Zora Zacarias MOLINA.FIBERGLASS DOWEL DRAWING OPERATOR Work Phone: [facility] Start: 07-26-2023 Unlisted evaluation and management service Hayder Bone DPM Work Phone: Dr. London PRESSLEY Comment on above: Nail dystrophy (Prim josie Dx); Aspirin long-term use Start: 07-24-2023 Refill Zora Flores APRN.FIBERGLASS DOWEL DRAWING OPERATOR Work Phone: [facility] Start: 06-27-2023 Patient encounter procedure Itri A Odell Work Phone: [facility] Start: 06-27-2023 Progress Note Itri A Odell Work Phone: [facility] Start: 06-19-2023 ambulatory Zora Flores APRN.FIBERGLASS DOWEL DRAWING OPERATOR Work Phone: [facility] Comment on above: Osteoarthritis of mu ltiple joints, unspecified osteoarthritis type (Primary Dx); Chronic neck pain; Essential hypertension Start: 06-19-2023 Telemedicine consultation with patient Zora Flores APRN.FIBERGLASS DOWEL DRAWING OPERATOR Work Phone: [facility] Start: 05-24-2023 Unlisted evaluation and management service Hayder MARIEM Work Phone: Dr. London PRESSLEY Comment on above: Nail dystrophy (Prim josie Dx); Aspirin long-term use Start: 05-03-2023 Patient encounter procedure Itri A Odell Work Phone: [facility] Start: 05-03-2023 Progress Note Itri A Odell Work Phone: [facility] Start: 02-28-2023 Patient encounter procedure Itri A Odell Work Phone: [facility] Start: 02-28-2023 Progress Note Itri A Odell Work Phone: [facility] Start: 02-13-2023 ambulatory Zora Flores APRN.FIBERGLASS DOWEL DRAWING OPERATOR Work Phone: [facility] Comment on above: Osteoarthritis of mu ltiple joints, unspecified osteoarthritis type (Primary Dx); Chronic neck pain; Essential hypertension Start: 02-13-2023 Telemedicine consultation with patient Zora Flores APRN.FIBERGLASS DOWEL DRAWING OPERATOR Work Phone: [facility] Start: 01-02-2023 Patient encounter procedure Macarena Bain Work Phone: [facility] Start: 01-02-2023 Progress Note Macarena Bain Work Phone: [facility] Start: 12-12-2022 ambulatory Zora Flores APRN.FIBERGLASS DOWEL DRAWING OPERATOR Work Phone: [facility] Comment on above: Osteoarthritis of mu ltiple joints, unspecified osteoarthritis type (Primary Dx); Chronic neck pain; Essential hypertension Start: 12-12-2022 Telemedicine consultation with patient Zora Flores APRN.FIBERGLASS DOWEL DRAWING OPERATOR Work Phone: [facility] Start: 11-02-2022 Unlisted evaluation and management service Hayder Bone DPM Work Phone: Dr. London Campos [facility] Comment on above: Nail dystrophy (Prim josie Dx); Aspirin long-term use Start: 09-27-2022 Refill Zora Flores APRN.FIBERGLASS DOWEL DRAWING OPERATOR Work Phone: [facility] Start: 09-12-2022 ambulatory Zora Flores APRN.FIBERGLASS DOWEL DRAWING OPERATOR Work Phone: [facility] Comment on above: Osteoarthritis of mu ltiple joints, unspecified osteoarthritis type (Primary Dx); Essential hypertension; Chronic neck pain; Abnormal gait Start: 09-12-2022 Telemedicine consultation with patient Zora Flores APRN.FIBERGLASS DOWEL DRAWING OPERATOR Work Phone: [facility] Start: 09-07-2022 ambulatory Zora Flores APRN.FIBERGLASS DOWEL DRAWING OPERATOR Work Phone: [facility] Comment on above: Osteoarthritis of mu ltiple joints, unspecified osteoarthritis type (Primary Dx); Essential hypertension; Chronic neck pain; Abnormal gait OPENED IN ERROR (Iva riley Dx) Start: 09-07-2022 Telemedicine consultation with patient Zora Flores APRN.FIBERGLASS DOWEL DRAWING OPERATOR Work Phone: [facility] Start: 08-29-2022 ambulatory Zora Flores APRN.FIBERGLASS DOWEL DRAWING OPERATOR Work Phone: [facility] Comment on above: Osteoarthritis of mu ltiple joints, unspecified osteoarthritis type (Primary Dx); Essential hypertension; Chronic neck pain; Abnormal gait Start: 08-29-2022 Telemedicine consultation with patient Zora Flores APRN.FIBERGLASS DOWEL DRAWING OPERATOR Work Phone: [facility] Start: 08-28-2022 Refill Zora Flores JESSE.FIBERGLASS DOWEL DRAWING OPERATOR Work Phone: [facility] Start: 08-25-2022 ambulatory Zora Flores APRN.FIBERGLASS DOWEL DRAWING OPERATOR Work Phone: [facility] Comment on above: Essential hypertensi on (Primary Dx); Abnormal gait; Chronic cervical pain Start: 08-25-2022 Telemedicine consultation with patient Zora Flores APRN.FIBERGLASS DOWEL DRAWING OPERATOR Work Phone: [facility] Start: 08-24-2022 Initial nursing faci lity care/day 25 minutes Hayder Bone DPM Work Phone: Dr. London Campos [facility] Comment on above: Pain due to onychomy cosis of toenail of right foot (Primary Dx); Pain due to onychomycosis of toenail of left foot; Aspirin long-term use Start: 08-23-2022 ambulatory Zora Flores JESSE.FIBERGLASS DOWEL DRAWING OPERATOR Work Phone: [facility] Comment on above: Essential hypertensi on (Primary Dx); Abnormal gait; Chronic cervical pain Start: 08-23-2022 Telemedicine consultation with patient Zora Flores JESSE.FIBERGLASS DOWEL DRAWING OPERATOR Work Phone: [facility] Start: 08-08-2022 ambulatory Zora Flores JESSE.FIBERGLASS DOWEL DRAWING OPERATOR Work Phone: [facility] Comment on above: Essential hypertensi on (Primary Dx); Abnormal gait; Chronic cervical pain Start: 08-08-2022 Telemedicine consultation with patient Zora Flores JESSE.FIBERGLASS DOWEL DRAWING OPERATOR Work Phone: [facility] Start: 08-07-2022 Patient encounter procedure Macarena Bain Work Phone: [facility] ON LICENSE OF [facility] Start: 05-15-2023 Progress Note Itri oJey Odell Work Phone: [employer] Start: 08-04-2022 Telephone encounter Leela C Sheets DO Work Phone: [facility] Comment on above: Patient Question Start: 07-31-2022 Refill Leela C She ets DO Work Phone: [facility] Comment on above: Refill Request Start: 07-19-2022 Telephone encounter Riley Palmer MA [facility] Comment on above: Appointment Start: 07-13-2022 Refill Leela C She ets DO Work Phone: [facility] Comment on above: Refill Request Start: 06-30-2022 Refill Leela C She ets DO Work Phone: [facility] Comment on above: Refill Request Start: 05-31-2022 Refill Leela C She ets DO Work Phone: [facility] Comment on above: Refill Request Start: 05-25-2022 Telephone encounter Leela C Sheets DO Work Phone: [facility] Comment on above: Medication Problem Start: 05-25-2022 End: 05-25-2022 ambulatory LEELA C SHEETS Facility:[facility] Start: 05-25-2022 End: 05-25-2022 Patient encounter procedure Leela C Sheets DO Work Phone: [facility] Comment on above: Essential hypertensi on (Primary Dx); Chronic cervical pain; Grief; Smoker; Encounter for immunization Start: 05-22-2022 Refill Leela C She ets DO Work Phone: [facility] Comment on above: Refill Request Start: 05-19-2022 Refill Leela C She ets DO Work Phone: [facility] Comment on above: Refill Request Start: 04-21-2022 Refill Leela C She ets DO Work Phone: [facility] Comment on above: Refill Request Start: 04-12-2022 End: 04-12-2022 Patient encounter procedure Elise Heck GLOBE CLEANER.FIBERGLASS DOWEL DRAWING OPERATOR Work Phone: Urology Comment on above: Overactive bladder ( Primary Dx); Urine retention; Frequent UTI; Atrophic vaginitis Start: 03-29-2022 End: 03-29-2022 Patient encounter procedure Elise Heck GLOBE CLEANER.FIBERGLASS DOWEL DRAWING OPERATOR Work Phone: Urology Comment on above: Urine retention (Iva riley Dx); Acute cystitis without hematuria; Urge incontinence Start: 03-24-2022 Telephone encounter Kelvin rodarte PA-C Work Phone: Urology Comment on above: Results Start: 03-23-2022 Telephone encounter Jair Turcios MD Work Phone: Urology Comment on above: ER Follow up appt Start: 03-22-2022 ambulatory Riley Rudy [facility] Comment on above: ED OUTREACH (ED OUTR EACH/) Start: 03-20-2022 End: 03-21-2022 Emergency department patient visit LEELA C SHEETS Facility:[facility] Start: 03-14-2022 Refill Leela C She ets DO Work Phone: [facility] Comment on above: Refill Request Start: 02-24-2022 End: 02-24-2022 ambulatory LEELA C SHEETS Facility:[facility] Start: 02-24-2022 End: 02-24-2022 Patient encounter procedure Leela C Sheets DO Work Phone: [facility] Comment on above: Chronic cervical kalyan n (Primary Dx); Chronic abdominal pain; Smoker Start: 02-14-2022 Refill Leela C She ets DO Work Phone: [facility] Comment on above: Refill Request Start: 01-18-2022 ambulatory LEELA C SHEETS Facil ity:[facility] Start: 01-18-2022 End: 01-18-2022 Subsequent hospital visit by physician [facility] Comment on above: Generalized abdomina l pain [R10.84] Start: 01-11-2022 Refill Leela C She ets DO Work Phone: [facility] Comment on above: Refill Request Start: 12-29-2021 Refill Leela C She ets DO Work Phone: [facility] Comment on above: Refill Request Start: 12-26-2021 End: 12-27-2021 ambulatory FERNANDO NIETO Facility:[facility] Start: 12-14-2021 Refill Leela C She ets DO Work Phone: [facility] Start: 12-02-2021 End: 12-02-2021 ambulatory LEELA C SHEETS Facility:[facility] Start: 11-24-2021 Refill Leela C She ets DO Work Phone: [facility] Comment on above: Refill Request Start: 11-11-2021 Refill Leela C She ets DO Work Phone: [facility] Comment on above: Refill Request Start: 10-11-2021 Refill Leela C She ets DO Work Phone: [facility] Comment on above: Refill Request Start: 09-29-2021 Refill Leela C She ets DO Work Phone: [facility] Comment on above: Refill Request Start: 09-27-2021 Refill Leela C She ets DO Work Phone: [facility] Comment on above: Refill Request Start: 09-14-2021 Refill Leela C She ets DO Work Phone: [facility] Start: 08-26-2021 End: 08-26-2021 ambulatory LEELA C SHEETS Facility:[facility] Start: 08-08-2021 Refill Leela C She ets DO Work Phone: [facility] Comment on above: Refill Request Start: 07-11-2021 Refill Leela C She ets DO Work Phone: [facility] Comment on above: Refill Request Start: 06-27-2021 Refill Leela Villalba ets DO Work Phone: [facility] Comment on above: Refill Request Start: 06-23-2021 Telephone encounter Orin hanley MD Work Phone: [facility] Comment on above: Results Procedures Date Procedure Procedure Detail Performing Clinician Start: 11-04-2024 Mri brain brain stem w/o w/contrast material Mini Whyte MD Work Phone: Start: 08-08-[address] Obed Garcia MD Start: 08-08-2024 Urnls dip stick/tabl et reagent auto microscopy Dr. Josi Garcia MD Start: 07-24-2024 Mri brain brain stem w/o w/contrast material Mini Whyte MD Work Phone: Start: 05-26-2024 Mri brain brain stem w/o w/contrast material Mini Whyte MD Work Phone: Start: 05-26-2024 Radex spine cervical 2 or 3 views Mini Whyte MD Work Phone: Start: 04-29-2024 Magnetic resonance angiography of neck without contrast Dr. Josi Garcia MD Start: 04-29-2024 MRI of cervical spin e with contrast Dr. Josi Garcia MD Start: 02-28-2024 Mri brain brain stem w/o contrast material Mini Whyte MD Work Phone: Start: 12-25-2023 Ct head/brain w/cont rast material Itri Joey Bain Work Phone: Start: 12-25-2023 Creatinine [Mass/vol ume] in Serum or Plasma [facility] Provider Start: 05-25-2022 [employer]ed COVI D-19 BIVALENT BOOSTER VACCINE, AGE 12+ YR Leela Escoto DO Work Phone: Start: 04-12-2022 Urnls dip stick/tabl et rgnt auto w/o microscopy Elise Heck GLOBE CLEANER.FIBERGLASS DOWEL DRAWING OPERATOR Work Phone: Start: 06-23-2021 Lipid 1996 panel - S brendon or Plasma 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 Work Phone: Start: 02-16-2021 Adult depression scr eening assessment Orin Smith MD Work Phone: Start: 06-22-2020 Mammography Orin henson MD Work Phone: Start: 05-05-2016 Colonoscopy Orin henson MD Work Phone: Plan of Treatment Date Care Activity Detail Author Start: 01-21-2039 RSV Vaccine (1 - 1-dose 75+ series) RSV Vaccine (1 - 1-dose 75+ series) [facility] Start: 01-21-2029 PNEUMOCOCCAL (3 - PPSV23 if available, else PCV20) PNEUMOCOCCAL (3 - PPSV23 if available, else PCV20) [facility] Start: 01-21-2029 PNEUMOCOCCAL (3 - PPSV23 or PCV20) PNEUMOCOCCAL (3 - PPSV23 or PCV20) [facility] Start: 01-21-2029 Pneumococcal vaccination [facility] Start: 02-20-2028 Urine microalbumin profile [facility] Start: 08-26-2026 Pneumococcal Vaccine: 50+ (3 of 3 - PCV20 or PCV21) Pneumococcal Vaccine: 50+ (3 of 3 - PCV20 or PCV21) [facility] Start: 06-23-2026 Lipid 1996 panel - Serum or Plasma Lipid Screening [facility] Start: 06-23-2026 Lipid panel Lipid Screening [facility] Start: 06-23-2026 LIPID SCREEN LIPID SCREEN [facility] Start: 05-05-2026 Colonoscopy COLONOSCOPY [facility] Start: 05-05-2026 COLORECTAL CANCER SCREENING COLORECTAL CANCER SCREENING [facility] Start: 05-05-2026 Screening for malignant neoplasm of colon [facility] Start: 07-31-2025 BP Controlled (<130/80) BP Controlled (<130/80) [facility] Start: 05-26-2025 BP Controlled (<130/80) BP Controlled (<130/80) [facility] Start: 03-20-2025 DIABETES SCREEN DIABETES SCREEN [facility] Start: 03-20-2025 Diabetes Screening Diabetes Screening [facility] Start: 03-09-2025 End: 12-05-2025 MR Brain WO and W contrast IV MRI BRAIN WO/W IVCON Radiology Routine Astrocytoma brain tumor (HCC) Spasticity Cognitive decline Expected: 03/09/2025, Expires: 12/05/2025 [facility] Work Phone: Comment on above: Expected: 03/09/2025, Expires: Start: 02-27-2025 BP Controlled (<130/80) BP Controlled (<130/80) [facility] Start: 02-09-2025 BP Controlled (<130/80) BP Controlled (<130/80) [facility] Start: 02-06-2025 BP Controlled (<130/80) BP Controlled (<130/80) [facility] Start: 2025 End: 2025 Patient encounter procedure 2025 9:45 AM EDT Office Visit [facility] [address] [place] [address] Lillie Horton MD [address] [place] [address] Spasticity follow up [facility] Comment on above: Spasticity follow up Start: 01-16-2025 BP Controlled (<130/80) BP Controlled (<130/80) [facility] Start: 01-13-2025 BP Controlled (<130/80) BP Controlled (<130/80) [facility] Start: 12-26-2024 DIABETES SCREEN DIABETES SCREEN [facility] Start: 12-05-2024 BP Controlled (<130/80) BP Controlled (<130/80) [facility] Start: 11-24-2024 Influenza vaccination [facility] Start: 11-06-2024 End: 11-06-2024 Patient encounter procedure 11/06/2024 1:00 PM EDT Office Visit [facility] [address] [place] [address] Lillie Horton MD [address] [place] [address] [facility] Comment on above: Spasticity Start: 11-05-2024 End: 11-05-2024 Patient encounter procedure 11/05/2024 9:30 AM EDT Office Visit [facility] [address] [place] [address] Mini Whyte MD [address] [place] [address] Scheduling Request - Established Patient [facility] Comment on above: Scheduling Request - Established Patient Start: 11-04-2024 End: 11-04-2024 Patient encounter procedure 11/04/2024 8:30 AM EDT Appointment Radiology [address] [place], [place] [id number] Scheduling Request - Established Patient Radiology Comment on above: Scheduling Request - Established Patient Start: 10-03-2024 BP Controlled (<130/80) BP Controlled (<130/80) [facility] Start: 09-04-2024 End: 09-04-2024 Patient encounter procedure 09/04/2024 12:45 PM EDT Office Visit Neurology [address] [address] Casper Haynes MD [address] [place] [address] [facility] Neurology Comment on above: [facility] Start: 07-31-2024 End: 07-31-2024 Patient encounter procedure 07/31/2024 9:00 AM EDT Office Visit [facility] [address] [place] [address] Mini Whyte MD [address] [address] Scheduling Request - Established Patient [facility] Comment on above: Scheduling Request - Established Patient Start: 07-25-2024 BP Controlled (<130/80) BP Controlled (<130/80) [facility] Start: 07-24-2024 End: 07-24-2024 Patient encounter procedure 07/24/2024 8:00 AM EDT Appointment Radiology [address] [place] [address] Scheduling Request - Established Patient Radiology Comment on above: Scheduling Request - Established Patient Start: 06-23-2024 DIABETES SCREEN DIABETES SCREEN [facility] Start: 06-17-2024 End: 06-17-2024 Patient encounter procedure 06/17/2024 11:00 AM EDT Office Visit [facility] [address] [place] [address] Ibrahima Clemens MD [address] [place] [address] Injury of cervical spinal cord, 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] [facility] Comment on above: Injury of cervical spinal cord, 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] Start: 06-09-2024 End: 06-09-2024 Patient encounter procedure 06/09/2024 1:20 PM EDT Office Visit [facility] [address] [address] Diane Siu, GLOBE CLEANER.FIBERGLASS DOWEL DRAWING OPERATOR [address] [place] [address] spasticity [facility] Comment on above: spasticity Start: 06-04-2024 End: 06-04-2024 Patient encounter procedure 06/04/2024 1:00 PM EDT Office Visit [facility] [place] [address] [place] [address] Scott Dumont MD [address] [place] [address] Time Frame: 2-4 weeks or best [facility] Comment on above: Time Frame: 2-4 weeks or best Start: 05-26-2024 End: 05-26-2024 Patient encounter procedure 05/26/2024 2:30 PM EST Office Visit [facility] [address] [id number] Dior Anguiano MD [id number] [place] [address] Carotid Stenosis [facility] Comment on above: Carotid Stenosis Start: 05-26-2024 End: 08-25-2024 LIPID PANEL, NONFASTING LIPID PANEL, NONFASTING Lab Routine Hyperlipidemia, unspecified hyperlipidemia type Expected: 05/26/2024, Expires: 08/25/2024 [facility] Comment on above: Expected: 05/26/2024, Expires: Start: 05-26-2024 End: 05-26-2024 Patient encounter procedure 05/26/2024 11:30 AM EST Office Visit [facility] [address] [place] [address] Mini Whyte MD [address] [place] [address] Time Frame: week of 05/26 [facility] Comment on above: Time Frame: week of 05/26 Start: 05-26-2024 End: 05-26-2024 Patient encounter procedure MRI Q Comment on above: Diagnosis: 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] XR CERVICAL 2V FLEX/ EXT Start: 05-23-2024 BP Controlled (<130/80) BP Controlled (<130/80) [facility] Start: 05-08-2024 End: 05-08-2024 ambulatory 05/08/2024 11:00 AM EST [facility] [address] [place] [address] Mini Whyte MD [address] [place] [address] MRA/ MRI results- patient is in a facility [facility] Comment on above: MRA/ MRI results- patient is in a facili ty Start: 04-07-2024 End: 04-07-2024 Patient encounter procedure 04/07/2024 1:30 PM EST Office Visit [facility] [place] [address] [place] [address] Mini Whyte MD [address] [place] [address] Time Frame: next available [facility] [place] Comment on above: Time Frame: next available Start: 04-02-2024 End: 04-02-2024 Patient encounter procedure [facility] Comment on above: Diagnosis: Allergy to intravenous contra st media [Z91.041] Start: 04-02-2024 End: 04-02-2024 Patient encounter procedure 04/02/2024 1:00 AM EST Appointment [facility] [address] [place] [id number] Diagnosis: Allergy to intravenous contrast media [Z91.041] [facility] Comment on above: Diagnosis: Allergy to intravenous contra st media [Z91.041] Start: 03-26-2024 Medicare Advantage Annual Wellness Visit Medicare Advantage Annual Wellness Visit [facility] Start: 03-22-2024 BP Controlled (<130/80) BP Controlled (<130/80) [facility] Start: 02-28-2024 End: 02-28-2024 Patient encounter procedure 02/28/2024 1:30 PM EST Office Visit [facility] [place] [address] [place] [address] Mini Whyte MD [address] [address] Scheduling Request - Established Patient [facility] [place] Comment on above: Scheduling Request - Established Patient Start: 02-28-2024 End: 02-28-2024 Patient encounter procedure 02/28/2024 11:40 AM EST Appointment MRI Q [address] [place] [address] Scheduling Request - Established Patient MRI Q Comment on above: Scheduling Request - Established Patient Start: 01-17-2024 End: 01-17-2024 Patient encounter procedure 01/17/2024 10:00 AM EDT Office Visit [facility] [place] [address] [place] [address] Mini Whyte MD [address] [place] [address] Time Frame: First available [facility] [place] Comment on above: Time Frame: First available Start: 12-25-2023 End: 12-25-2023 Patient encounter procedure Radiology Ct Scan Comment on above: outside order scanned into patient's melissa rt Pt has contrast mariely rgy listed, in a nursing facility. Premedicating??-SCP 12/19 Start: 11-25-2023 Covid-19 Vaccine ( season) Covid-19 Vaccine () [facility] Start: 11-25-2023 Covid-19 Vaccine () Covid-19 Vaccine () [facility] Start: 11-25-2023 Influenza vaccination [facility] Start: 11-03-2023 BP CONTROLLED (<130/80) BP CONTROLLED (<130/80) [facility] Start: 08-25-2023 BP CONTROLLED (<130/80) BP CONTROLLED (<130/80) [facility] Start: 05-26-2023 ANNUAL PCP TEAM CHRONIC DISEASE VISIT ANNUAL PCP TEAM CHRONIC DISEASE VISIT [facility] Start: 05-26-2023 BP CONTROLLED (<130/80) BP CONTROLLED (<130/80) [facility] Start: 03-26-2023 Behavioral Health Screening Behavioral Health Screening [facility] Start: 03-26-2023 Depression Assessment Depression Assessment [facility] Start: 03-25-2023 DEPRESSION ASSESSMENT DEPRESSION ASSESSMENT [facility] Comment on above: Postponed from 03/26/2022 (Declined at t his time) Start: 02-24-2023 ANNUAL PCP TEAM CHRONIC DISEASE VISIT ANNUAL PCP TEAM CHRONIC DISEASE VISIT [facility] Start: 02-24-2023 BP CONTROLLED (<130/80) BP CONTROLLED (<130/80) [facility] Start: 12-02-2022 ANNUAL PCP TEAM CHRONIC DISEASE VISIT ANNUAL PCP TEAM CHRONIC DISEASE VISIT [facility] Start: 12-02-2022 BP CONTROLLED (<130/80) BP CONTROLLED (<130/80) [facility] Start: 11-24-2022 Covid-19 Vaccine ( season) Covid-19 Vaccine () [facility] Start: 11-24-2022 Influenza vaccination [facility] Start: 08-26-2022 ANNUAL PCP TEAM CHRONIC DISEASE VISIT ANNUAL PCP TEAM CHRONIC DISEASE VISIT [facility] Start: 08-26-2022 BP CONTROLLED (<130/80) BP CONTROLLED (<130/80) [facility] Start: 07-13-2022 End: 09-12-2022 Lipid 1996 panel - Serum or Plasma LIPID PANEL BASIC Lab Routine Pure hypercholesterolemia Expected: 07/13/2022, Expires: 09/12/2022 [facility] Work Phone: Comment on above: Expected: 07/13/2022, Expires: 3 Start: 05-26-2022 ANNUAL PCP TEAM CHRONIC DISEASE VISIT ANNUAL PCP TEAM CHRONIC DISEASE VISIT [facility] Start: 05-26-2022 BP CONTROLLED (<130/80) BP CONTROLLED (<130/80) [facility] Start: 03-26-2022 DEPRESSION ASSESSMENT DEPRESSION ASSESSMENT [facility] Start: 02-16-2022 Adult depression screening assessment DEPRESSION SCREENING [facility] Start: 11-24-2021 Influenza vaccination INFLUENZA (#1) [facility] Start: 10-13-2021 COVID-19 VACCINE (5 - Booster for Pfizer series) COVID-19 VACCINE (5 - Booster for Pfizer series) [facility] Start: 06-22-2021 Mammography [facility] Start: 06-22-2021 Screening for malignant neoplasm of breast Mammogram Screening [facility] Start: 05-11-2021 COVID-19 VACCINE (4 - Booster for Pfizer series) COVID-19 VACCINE (4 - Booster for Pfizer series) [facility] Start: 03-26-2021 DEPRESSION ASSESSMENT DEPRESSION ASSESSMENT [facility] Start: 01-21-2009 COLOGUARD (FIT-DNA) COLOGUARD (FIT-DNA) [facility] Start: 01-21-[address] COLONOGRAPHY [facility] Start: 01-21-2009 FECAL OCCULT BLOOD FECAL OCCULT BLOOD [facility] Start: 01-21-2009 Screening for malignant neoplasm of colon [facility] Start: 01-21-2009 SIGMOIDOSCOPY SIGMOIDOSCOPY [facility] Start: 01-21-1982 Anxiety Screening Anxiety Screening [facility] Start: 01-21-1982 Depression Screening Depression Screening [facility] Start: 1965 HEPATITIS B (1 of 3 - 3-dose series) HEPATITIS B (1 of 3 - 3-dose series) [facility] Start: 1965 Hepatitis B Vaccine (1 of 3 - 3-dose series) Hepatitis B Vaccine (1 of 3 - 3-dose series) [facility] BLADDER SCAN BLADDER SCAN Pro cedures Routine Urine retention Ordered: 04/12/2022 [facility] Work Phone: Comment on above: Ordered: 04/12/2022 Debridement nail any method 1-5 DEBRIDEMENT OF NAIL(S), 1-5 Procedures Routine Pain due to onychomycosis of toenail of right foot Pain due to onychomycosis of toenail of left foot Aspirin long-term use Ordered: 08/24/[address] LONDON CAMPOS [employer] Work Phone: Comment on above: Ordered: 08/24/2022 Debridement nail any method 1-5 DEBRIDEMENT OF NAIL(S), 1-5 Procedures Routine Nail dystrophy Aspirin long-term use Ordered: 11/03/2022 BATSHEVA CAMPOS [employer] Work Phone: Comment on above: Ordered: 11/03/2022 Debridement nail any method 1-5 DEBRIDEMENT OF NAIL(S), 1-5 Procedures Routine Nail dystrophy Aspirin long-term use Ordered: 05/25/2023 BATSHEVA CAMPOS [employer] Work Phone: Comment on above: Ordered: 05/25/2023 Debridement nail any method 1-5 DEBRIDEMENT OF NAIL(S), 1-5 Procedures Routine Nail dystrophy Aspirin long-term use Ordered: 07/29/[address] LONDON CAMPOS [facility] Work Phone: Comment on above: Ordered: 07/29/2023 Debridement nail any method 1-5 DEBRIDEMENT OF NAIL(S), 1-5 Procedures Routine Nail dystrophy Aspirin long-term use Ordered: 10/07/[address] LONDON CAMPOS [employer] Work Phone: Comment on above: Ordered: 10/07/2023 Debridement nail any method 1-5 DEBRIDEMENT OF NAIL(S), 1-5 Procedures Routine Nail dystrophy Aspirin long-term use Ordered: 12/10/[address] LONDON CAMPOS [employer] Work Phone: Comment on above: Ordered: 12/10/2023 Debridement nail any method 1-5 DEBRIDEMENT OF NAIL(S), 1-5 Procedures Routine Nail dystrophy Aspirin long-term use Ordered: 02/07/[address] LONDON CAMPOS [employer] Work Phone: Comment on above: Ordered: 02/07/2024 End: 02-21-2025 MR Brain WO and W contrast IV MRI BRAIN WO/W IVCON Radiology Routine Astrocytoma (HCC) 1 Occurrences starting 01/23/2024 until 02/21/2025 [facility] Work Phone: Comment on above: 1 Occurrences starting 01/23/2024 until 02/21/2025 End: 04-03-2025 MR Brain WO and W contrast IV MRI BRAIN WO/W IVCON Radiology Routine Astrocytoma brain tumor (HCC) 1 Occurrences starting 03/04/2024 until 04/03/2025 [facility] Work Phone: Comment on above: 1 Occurrences starting 03/04/2024 until 04/03/2025 End: 06-27-2025 MR Brain WO and W contrast IV MRI BRAIN WO/W IVCON Radiology Routine Anaplastic astrocytoma (HCC) 1 Occurrences starting 05/28/2024 until 06/27/2025 [facility] Work Phone: Comment on above: 1 Occurrences starting 05/28/2024 until 06/27/2025 End: 09-04-2025 MR Brain WO and W contrast IV MRI BRAIN WO/W IVCON Radiology Routine Astrocytoma brain tumor (HCC) 1 Occurrences starting 08/05/2024 until 09/04/2025 [facility] Work Phone: Comment on above: 1 Occurrences starting 08/05/2024 until 09/04/2025 End: 12-10-2025 MR Brain WO and W contrast IV MRI BRAIN WO/W IVCON Radiology Routine Glioblastoma (HCC) 1 Occurrences starting 11/10/2024 until 12/10/2025 [facility] Work Phone: Comment on above: 1 Occurrences starting 11/10/2024 until 12/10/2025 End: 04-03-2025 MR Cervical spine WO and W contrast IV MRI CERVICAL SPINE WO/W IVCON Radiology Routine Allergy to intravenous contrast media Anaplastic astrocytoma (HCC) Mild cognitive impairment Cognitive decline Occlusion and stenosis of unspecified carotid artery Pathological fracture, other site, initial encounter for fracture 1 Occurrences starting 03/04/2024 until 04/03/2025 [facility] Comment on above: 1 Occurrences starting 03/04/2024 until 04/03/2025 End: 04-03-2025 MRA Head vessels WO contrast MRA BRAIN WO IVCON Radiology Routine Allergy to intravenous contrast media Anaplastic astrocytoma (HCC) Mild cognitive impairment Cognitive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 FS-BRAIN TUMOR Collected: 05/18/1992 Received: 05/18/1992 B. BRAIN TUMOR Collected: 05/18/1992 Received: 05/18/1992 C. brain tumor Collected: 05/18/1992 Received: 05/18/1992 D. BRAIN TUMOR Collected: 05/18/1992 Received: 05/18/1992 SNOMED: [id number] [facility] Procedure Notes - documented in this encounter Severo Stuart, Jair Ames MD - 07/06/1999 11:12 AM EDT Associated Order(s): MRI CERVICAL SPINE W+W/O CON MPRESSION: 1. Postoperative changes from anterior fusion at C5 through C7. The cord appears atrophic through these levels, and there is a small area of myelomalacia at the C7 level. These findings are all unchanged from the previous study of 05/26/98. 2. Mild degenerative changes at C3-4 and C4-5, unchanged. No neural compression or canal stenosis results. Feb 02, 2010 MRi Brain- [facility] 05/15/2002 FINDINGS: Comparison is made to the prior study dated 07/06/1999. Again, post-operative changes are noted from right frontal craniotomy with resection of the patient's right frontal lobe tumor. Encephalomalacia is again seen in the post-operative site. There is no evidence of abnormal enhancement to suggest recurrent tumor. There is no evidence of intracranial mass effect. Ex vacuo dilatation of the right frontal horn is again noted. No other focal abnormality is seen. IMPRESSION: Stable appearance of the brain with encephalomalacia in the right frontal lobe at the site of the tumor resection. No evidence of tumor recurrence is seen. 12/25/2023 CT BRAIN W Contrast COMPARISON: MR 03/04/2011. CT head 03/04/2011. IMPRESSION: No acute intracranial process. Remote history of RIGHT frontal craniotomy for underlying mass resection, with redemonstrated RIGHT frontal encephalomalacia and gliosis. No overt evidence of disease progression or recurrence on CT, however this is better evaluated with MR brain without and with contrast. MRI Report MRI BRAIN WO IVCON Exam End: 02/28/2024 2:16 PM (Final result) Narrative: * * *Final Report* * * DATE OF EXAM: Feb 28 2024 2:16PM [facility] [id number] - MRI BRAIN WO IVCON / PROCEDURE REASON: multiple diagnoses * * * * Physician Interpretation * * * * EXAMINATION: MRI BRAIN WO IVCON CLINICAL HISTORY: A 59-year-old female with past medical history of anaplastic astrocytoma. Status post resection. Probable previous radiation treatments. Unknown chemotherapy study. TECHNIQUE: Routine noncontrast MRI protocol including diffusion images. MR imaging was performed without IV contrast due to patient's concern of contrast reaction and unclear history of severe contrast reaction to gadolinium. The ordering provider was notified verbally by Dr. Cuellar, neuroradiologist. MQ: [id number] COMPARISON: CT brain 12/25/2023 and MRA brain 03/04/2011 RESULT: Acute Change: There is no evidence of restricted diffusion to suggest an acute infarct. Postoperative changes: Redemonstrated postsurgical changes from remote right frontal craniotomy for underlying mass resection. Large area of encephalomalacia and gliosis involving the right frontal lobe. Resultant ex vacuo dilatation of the right frontal horn. Currently, there is no discrete mass effect within limitation of noncontrast study. Hemorrhage: A few punctate foci of hemosiderin staining in the right frontal lobe adjacent to the resection cavity likely secondary to postoperative blood products. There is noted a few scattered punctate remote microhemorrhages in the supratentorial brain parenchyma. Mass Lesion/ Mass Effect: No evidence of an intracranial mass or extra-axial fluid collection. No significant mass effect. Chronic Change: Scattered punctate foci of increased T2 and FLAIR signal are noted in the supratentorial white matter which is a nonspecific finding, but likely represents minimal chronic microvascular ischemia. Small area of T2/FLAIR hyperintensity in the left periventricular and left frontal subcortical white matter likely secondary to chronic ischemic changes. Remote lacunar infarct in the left thalamus. Parenchyma: There is moderate generalized parenchymal volume loss. The brain parenchyma is otherwise within normal limits of signal intensity and morphology. Ventricles: Ventriculomegaly corresponds to the degree of parenchymal volume loss. Exvacuo dilatation of the right frontal horn Skull Base: Hypothalamic and pituitary region are grossly normal. Craniocervical junction is normal. No significant marrow replacement process. Vasculature: Major intracranial arterial structures, and dural venous sinuses show typical flow void, suggesting patency by spin echo criteria. Other: The visualized paranasal sinuses and mastoid air cells are clear. The orbits and extracranial soft tissues are unremarkable. Impression: IMPRESSION: * Postsurgical changes from previous right frontal craniotomy for resection of right frontal mass lesion. Large area of encephalomalacia and gliosis within the right frontal lobe consistent with sequela of posttreatment changes. Currently, there is no discrete mass effect separable from postsurgical changes versus residual/recurrent disease within limitation of noncontrast study. * No acute intracranial abnormality. Age advanced moderate parenchymal volume loss. Laundry Aide: MAGUI Transcribe Date/Time: Feb 28 2024 2:24P Dictated by : LEONORA CUELLAR MD This examination was interpreted and the report reviewed and electronically signed by: LEONORA CUELLAR MD on Feb 28 2024 2:37PM EST I reviewed the MRIs, with the patient and her sister. I will ask neuroradiology, to formally comment whether there is any significant change between the MRI from February for 2023 when compared to the MRI from 2010. * * * * * * * * ADDENDUM #1 * * * * * * * * This addendum was created upon the ordering provider request. In comparison to the most recent MRI brain available on PACS completed on 03/04/2011: * Interval mild increased punctate and patchy foci of T2/FLAIR hyperintensities consistent with worsening chronic microvascular ischemic changes with resultant increased parenchymal volume loss. * Interval mild increased FLAIR hyperintensity surrounding the right frontal lobe resection cavity likely secondary to combination of posttreatment (postsurgical and presumed postradiation) changes and worsening chronic microvascular ischemic changes. Resultant mild increased exvacuo dilatation of the right frontal horn. * Previously seen scattered punctate foci of restricted diffusion along the right occipital and parietal lobes are no longer visualized. Currently, there is no restricted diffusion. * Known occluded left vertebral artery is better evaluated on previous dedicated MR angiogram study on 03/04/2011. * Rest of the findings as in the initial report. Comparison with more recent studies is suggested if available. Consider follow-up MRI brain to reassure stability. 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 Myelomalacia involving C5-C7 cervical cord as described. Mild cervical spondylosis as described. No intradural pathologic enhancement. Anatomic Variant: None. Assume 7 cervical vertebrae with counting from the craniocervical junction. Laundry Aide: PSCB Transcribe Date/Time: May 08 2024 9:40A Dictated by : KATTY DAI MD Results 05/26/2024 XR CERVICAL 2V FLEX/EXT (Acc#[id number]) (Order [id number])IMPRESSION: LIMITED CAUDAL TO C4-5. NO RADIOGRAPHIC DEMONSTRATION OF INSTABILITY IN THE UPPER CERVICAL SPINE. 05/26/2024 [facility] MRI BRAIN WO/W IVCON (Acc#[id number]) (Order [id number]) MRA BRAIN WO IVCON (Acc#[id number]) (Order [id number] MPRESSION: Right frontal postoperative changes with similar extent of nonspecific parenchymal signal abnormality surrounding the resection since 02/28/2024, overall progressed when compared to more remote examination of 2010. No abnormal parenchymal enhancement or localized perfusion abnormality. 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 3 mm left periophthalmic ICA aneurysm and additional possible small aneurysm at the junction of the right carotid terminus and M1 segment. I reviewed the images with the patient. Assessment & Plan Mrs. Carvajal, is a 59 YO RHF, per records, the patient had back on 04/30/1992 Surgery: For a right frontal lobe tumor resection at [facility] ([id number]). 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 Per the records clear neurosurgeon is Dashawn Montelongo MD [facility] Neurosurgery. Her sister confirmed today, that per her own recollection the patient ONLY HAD RADIATION AND NEVER HAD CHEMO. However on some [facility] Notes it says - patient had chemo-radiation. She had an MRI on February 28, 2024, that shows to my own perhaps some increased confluence she and the hyperintense changes seen on FLAIR images. Unfortunately this MRI was done without contrast. This is because the patient said while she was at the MR scanner she she told the MR staff, that she is allergic to MRI contrast. The reading radiologist Dr. Cuellar, actually called me personally, regarding this concern about that the patient is allergic to MRI contrast. Hence, under the circumstances, we decided not to give contrast, because this was not clear and could not confirm whether she is or she is not allergic to MRI contrast. 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 The patient acknowledges also that she has memory problems. Her sister today, February 28, 2024, confirmed that she is allergic to CT contras, which is documented in the epic chart, but she is not aware that she is allergic to MRI contrast. She has had MRIs with contrast, which is evident as she had an MRI with gadolinium contrast, in 2010. In view of the above, and because she is now quite unclear whether she is allergic or not to MRI contrast or gadolinium, in discussion with the patient and her sister who is her MPOA, we will premedicate the patient, as if she were to have an allergic to gadolinium. They verbalized understanding of the potential risks, benefits of having an MRI with contrast. MRI with contrast could identify changes, that an MRI without contrast could not. If there is development of enhancement, this could change the way we will manage the patient as contrast-enhancement, cold represent, that the tumor is progressing or transforming to a higher grade and may require treatments. We also discussed with the patient, that although there is probably some more confluency of the FLAIR changes on the MRI from February for 2023, when compared to the MRI from 2010, between 2010, to 02/2024, as far as the family know and per the records, the patient has not had an MRI in the interim. Hence the changes that we see on the MRI from February 2024, may not necessarily represent progression. I think what is important, is to make sure that we will not overtreat the patient, if there is no progression. The only way to know, will be time, that is, as the patient will have follow-up images in the future, we could see whether there are any changes in the next few months to see whether the changes that we see in the MRI from February 2024, her baseline, or whether there is progressive disease. Furthermore, the patient has been clinically stable overall for the past few years. However her cognition has declined according to her sister too. So at the end, I have decided, with the acknowledgment of the potential benefits and risk, to do an MRI in 3 months time, with and without contrast, with premedication to prevent potential allergic reaction. Depending on those results, we will define whether anything else needs to be done, particularly if there is no progression then we can continue only clinical and imaging surveillance, but if there is progression, then we will define whether the patient requires treatments. The patient and her sister who is the MPOA, agreed with this plan. 05/08/2024 I reviewed with the patient's sister the findings per my own view as at the time I spoke with the patient the 2nd read had not been done. I told her that I will call her when the final results would be out. 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 The C-spine MR shows, spina cord encephalomalacia, but no spinal cord tumor. No comments in terms of whether this is worse than the MR of the C-spine done on 02/04/2010, but to my own observations, the cord shows more encephalomalacia, and there is more disc protrusions, yet to my own review, no spinal cord compromise. I have asked the reading neuroradiologist that did the 2nd read, to compare the MR of the c-spine done on 04/29/24, with the one from 02/04/2010. I have referred the patient to spine medicine, but I will refer the patient to spine surgery for a evaluation, as she has not had follow up with spine surgery since her c-spine surgery. Regarding the left vertebral artery occlusion, this has marbin reported on previous images, so this is not new, however as the patient had a stroke that cause neurological compromise I had refer her when I saw the patient initially, to cerebrovascular neurology for an assessment. I ordered MRA of the brain, to be done along with these last MRI's but for some reason this image was not done. I will re-order it so it can be done with the MR of the brain scheduled for 3/3/25. ACTIVE ISSUES: 1-Astrocytoma, WHO grade 3. -Obtain reliable records of her brain tumor history from [facility]. -Obtain, the actual pathology, from [facility] if possible, for neuro pathology review at [facility]. -MRI brain w and w/o + perfusion in 3 months time from the last MR done on 05/26/24. PATIENT NEEDS: -Premedications, with diphenhydramine and prednisone to prevent a potential allergic reaction to gadolinium contrast for MRI. -Visit clinic the same day of the MR of the MRI is to be done at . -Family and preferably MPOA to attend at next appointment as well. 2-Referral to neuropsychology for assessment on cognition. DONE. Patient seen by Dr. Bindu Burt on 02/13/2024. -Referral, to brain [facility], DEMENTIA clinic for assessment, regarding whether there is an underlying primary dementia syndrome. DONE. 3-PCP: To continue general medical care by PCP, Leela Escoto, 4-History of Stroke: Left Vertebral artery occlusion -the question is whether her stroke was from accelerated atherosclerosis as she had radiation treatments for her brain tumor. I will ask the patient to have an MR angiogram of the head and neck NON CONTRAST - TIME OF FLIGHT (to minimize contrast exposure) to re-assess the vasculature. I will also refer her to Stroke Clinic for expert re-evaluation of stroke risk and longitudinal follow up. 5-CEREBRAL ANEURYSMS: Per MR from 05/26/24: 3 mm left periophthalmic ICA aneurysm and additional possible small aneurysm at the junction of the right carotid terminus and M1 segment. I asked Dr. Siegel, 05/27/24, regarding the above findings and she indicated that she will review with the Aneurysm clinic and that no need from my side to make that referral. 6-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 She had cervical spine MR 04/29/2024. Referral to Spine medicine/neurosurgery, spine. 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 PLAN 05/26/24: -MRI brain w and w/o and perfusion in 3 months time, to be done at -Clinic visit the same day as MRI -Referral to Spasticity Clinic for C-spine cord injury with quadriparesis., and spastic limbs mostly LOW EXTR Limbs., affecting her ambulation. CONSULT TO [facility] PENDING Booked for August 2024 Routine, Dx: 1. Allergy to intravenous contrast media 2. Anaplastic astrocytoma (HCC) 3. Mild cognitive impairment 4. Cognitive decline 5. Occlusion and stenosis of unspecified carotid artery 6. Pathological fracture, other site, initial encounter for fracture 7. Injury of cervical spinal cord, sequela (HCC) 8. Quadriplegia (HCC) CONSULT TO [facility] PENDING ORDERS 05/08/24: Associate Signed Orders Orders Signed This Visit (3) diphenhydrAMINE HCL 50 mg tablet Medication, to prevent allergic reaction, to MR contrast (gadolinium]. Take 50 mg, 1 (ONE) hour prior to MRI Normal, Disp-5 tablet, R-11 Dx: 1. Allergy to intravenous contrast media predniSONE (DELTASONE) 50 mg Take this medication, every 6 hours, for 3 doses for prevention of contrast MR (gadolinium] allergy. Take 50 mg, 13 hours, then 7 hours, then 1 hour, prior to the MRI Normal, Disp-3 tablet, R-11 Dx: 1. Allergy to intravenous contrast media CONSULT TO NEUROSURGERY SPINE PENDING Routine, Dx: 1. 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) 2. Allergy to intravenous contrast media 3. Anaplastic astrocytoma (HCC) 4. Mild cognitive impairment 5. Cognitive decline 6. Spondylosis of cervical joint 7. Injury of cervical spinal cord, sequela (HCC) 8. H/O laminectomy Associate Signed Orders Orders Signed This Visit (1) CONSULT - SPASTICITY EVAL Routine, Dx: 1. 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) 2. Spondylosis of cervical joint 3. Cognitive decline 4. Mild cognitive impairment 5. Injury of cervical spinal cord, sequela (HCC) 6. Quadriplegia (HCC) 7. Hemiparesis, unspecified hemiparesis etiology, unspecified laterality (HCC) 8. Pathological fracture, other site, initial encounter for fracture 9. Occlusion and stenosis of unspecified carotid artery 10. Muscle spasticity In the end the patient and family verbalized understanding of the above, they had questions which I believe I answered to their satisfaction and agreed with these recommendations and had no further questions or concerns for the moment, but I encourage them to call the [facility] with any questions or concerns. I spent a total of 55 minutes on the date of the service which included preparing to see the patient, at least 50% of [id number] patient care, completing clinical documentation, obtaining and/or reviewing separately obtained history, performing a medically appropriate examination, counseling and educating the patient/family/caregiver, ordering medications, tests, or procedures, communicating with other HCPs (not separately reported), independently interpreting results (not separately reported), communicating results to the patient/family/caregiver and care coordination (not separately reported). High MDM. Mini Whyte MD [facility] CC: Leela Escoto DO [address] [place] [id number]: [phone] Berna Siegel MD, Cerebrovascular Center, Neurology [facility] Dior Anguiano MD, [facility]bro[facility], Neurology [facility] Macarena Bain MD Gerontology, [facility] Zora Flores, GLOBE CLEANER.FIBERGLASS DOWEL DRAWING OPERATOR, Gerontology, [facility] Bindu Burt, PhD, Psychology, [facility] [address], GLOBE CLEANER.FIBERGLASS DOWEL DRAWING OPERATOR Internal Medicine, [facility] Hayder Bone, DPWilliam Podiatry, [facility] Leela Escoto, Family Medicine, [facility] Elise Heck, GLOBE CLEANER.FIBERGLASS DOWEL DRAWING OPERATOR, Urology, [facility] Jair Turcios MD, Urology, [facility] Additional intake questions: Has the patient had fever, nausea, vomiting, diarrhea, constipation, fatigue for > 1 week? Yes, constipation (day of last BM yesterday), diarrhea ( 2 times in last 24 hours), and Provider Notified Does the patient have a decreased appetite? No Does patient want to see a Liquor Bridge Operator Helper? No (yes to any of above refer patient to schedulers for dietitian appointment) ) Does patient have any new or increased numbness or tingling of extremities? No Is patient interested in fertility information? No Does patient need any prescription refills? No Does patient have an advanced directive in place? No, Patient referred to [facility] Anaplastic Astrocytoma L frontal tumor resection done at [facility] Resided in assisted living [place] Spoke with Radha at [facility] pathology- brain slides from 1992 are no longer available. MRI brain 02/28/24 MRA neck 04/424 MRi C Spine 04/29/24 Cervical x-ray and brain MRI done today Has appointment with cerebrovascular today and appointment with Dr. Dumont on 06/04/24 documented in this encounter [facility] 05-26-2024 Note HNO ID: [id number] Author: INDIA MICHEL MA Service: ? Author Type: Case Management Assistant Type: Progress Notes Filed: 06/18/2024 09:02 Note Text: Additional intake questions: Has the patient had fever, nausea, vomiting, diarrhea, constipation, fatigue for > 1 week? Yes, constipation (day of last BM yesterday), diarrhea ( 2 times in last 24 hours), and Provider Notified Does the patient have a decreased appetite? No Does patient want to see a Liquor Bridge Operator Helper? No (yes to any of above refer patient to schedulers for dietitian appointment) ) Does patient have any new or increased numbness or tingling of extremities? No Is patient interested in fertility information? No Does patient need any prescription refills? No Does patient have an advanced directive in place? No, Patient referred to Resource [facility] Electronically Signed By: India Michel MA [facility] 05-26-2024 Note HNO ID: [id number] Author: GERDA DEE, RN Service: ? Author Type: Registered Nurse Type: Progress Notes Filed: 06/18/2024 09:02 Note Text: Anaplastic Astrocytoma L frontal tumor resection done at [facility] Resided in assisted living [place] Spoke with Radha at [facility] pathology- brain slides from 1992 are no longer available. MRI brain 02/28/24 MRA neck 04/424 MRi C Spine 04/29/24 Cervical x-ray and brain MRI done today Has appointment with cerebrovascular today and appointment with Dr. Dumont on 06/04/24 [facility] 05-26-2024 Telephone encounter Note Opened in error [facility] Work Phone: 05-26-2024 Miscellaneous Notes Opened in error documented in this encounter [facility] 05-26-2024 History of Present illness Narrative Radiology Service Progress Note DATE OF SERVICE: May 26, 2024 TIME: 9:50 AM PATIENT WEIGHT: 180LBS PATIENT IDENTITY VERIFICATION COMPLETED USING TWO (2) STANDARD IDENTIFIERS: Name and Date of confirmed by patient verbally and Name and Date of confirmed by identification band. FALL SCREENING: Has the patient had 2 falls in the last year or 1 fall with injury or currently using an Ambulatory Assistive Device (Walker, Cane, Wheelchair, Crutches, etc.)? Yes, Patient High Risk for Falls What interventions were put in place to prevent falls during this visit? Non-Skid Socks Used, Yellow Falls Risk Wristband Applied, Instructed Patient to Call for Help if Needed, and Offered Assistance with Transfers/Clothing PATIENT GENDER DATA: Assigned female at . status: : No status: NO. ALLERGIES: Reviewed and unchanged CONTRAST ALLERGY: No EXAM: MRI - CONTRAST TYPE: GROUP II IV SITE: Ambulatory: A peripheral IV was started in the Right forearm with a Angio cath: 24 gauge. IV SITE APPEARANCE: Clean,Dry and Intact SIGNATURE: Leanna Masterson RN PATIENT NAME: Dior Carvajal DATE: May 26, 2024 TIME: 9:50 AM Radiology Service Progress Note PATIENT NAME: Dior Carvajal DATE OF SERVICE: May 26, 2024 TIME: 11:11 AM PATIENT IDENTITY VERIFICATION COMPLETED USING TWO (2) IDENTIFIERS: Name and Date of confirmed by patient verbally and Name and Date of confirmed by identification band. FALL SCREENING: Has the patient had 2 falls in the last year or 1 fall with injury or currently using an Ambulatory Assistive Device (Walker, Cane, Wheelchair, Crutches, etc.)? Yes, Patient High Risk for Falls What interventions were put in place to prevent falls during this visit? Non-Skid Socks Used, Yellow Falls Risk Wristband Applied, Instructed Patient to Call for Help if Needed, Offered Assistance with Transfers/Clothing, Instructed Patient to Remain Seated (Not on Exam Table) Until Exam, and Increased Observations by Caregivers PATIENT GENDER DATA: Assigned female at . status: : No status: NO. PATIENT RELEVANT IMPLANT DATA REVIEWED: Yes PATIENT PRESENTS WITH AN IMPLANTABLE OR ATTACHED STEAMFITTER: No RADIOLOGY DEPARTMENT: MR; Exam(s) Completed: Head: Routine Brain with Perfusion [place] MRA PERIPHERAL IV DATA: Site assessment: Clean,Dry and Intact, Site disposition Left in for next appointment SIGNED BY: JOANA Costa) May 26, 2024 11:11 AM documented in this encounter [facility] 05-26-2024 Note HNO ID: [id number] Author: JOHANNY RENTERIA RT(R) Service: Radiology Author Type: Technologist Type: Progress Notes Filed: 05/26/2024 11:12 Note Text: Radiology Service Progress Note PATIENT NAME: Dior Carvajal DATE OF SERVICE: May 26, 2024 TIME: 11:11 AM PATIENT IDENTITY VERIFICATION COMPLETED USING TWO (2) IDENTIFIERS: Name and Date of confirmed by patient verbally and Name and Date of confirmed by identification band. FALL SCREENING: Has the patient had 2 falls in the last year or 1 fall with injury or currently using an Ambulatory Assistive Device (Walker, Cane, Wheelchair, Crutches, etc.)? Yes, Patient High Risk for Falls What interventions were put in place to prevent falls during this visit? Non-Skid Socks Used, Yellow Falls Risk Wristband Applied, Instructed Patient to Call for Help if Needed, Offered Assistance with Transfers/Clothing, Instructed Patient to Remain Seated (Not on Exam Table) Until Exam, and Increased Observations by Caregivers PATIENT GENDER DATA: Assigned female at . status: : No status: NO. PATIENT RELEVANT IMPLANT DATA REVIEWED: Yes PATIENT PRESENTS WITH AN IMPLANTABLE OR ATTACHED STEAMFITTER: No RADIOLOGY DEPARTMENT: MR; Exam(s) Completed: Head: Routine Brain with Perfusion [place] MRA PERIPHERAL IV DATA: Site assessment: Clean,Dry and Intact, Site disposition Left in for next appointment SIGNED BY: RT Julissa(R) May 26, 2024 11:11 AM [facility] 05-26-2024 Note HNO ID: [id number] Author: LEANNA MASTERSON RN Service: Radiology Author Type: Registered Nurse Type: Progress Notes Filed: 05/26/2024 10:20 Note Text: Radiology Service Progress Note DATE OF SERVICE: May 26, 2024 TIME: 9:50 AM PATIENT WEIGHT: 180LBS PATIENT IDENTITY VERIFICATION COMPLETED USING TWO (2) STANDARD IDENTIFIERS: Name and Date of confirmed by patient verbally and Name and Date of confirmed by identification band. FALL SCREENING: Has the patient had 2 falls in the last year or 1 fall with injury or currently using an Ambulatory Assistive Device (Walker, Cane, Wheelchair, Crutches, etc.)? Yes, Patient High Risk for Falls What interventions were put in place to prevent falls during this visit? Non-Skid Socks Used, Yellow Falls Risk Wristband Applied, Instructed Patient to Call for Help if Needed, and Offered Assistance with Transfers/Clothing PATIENT GENDER DATA: Assigned female at . status: : No status: NO. ALLERGIES: Reviewed and unchanged CONTRAST ALLERGY: No EXAM: MRI - CONTRAST TYPE: GROUP II IV SITE: Ambulatory: A peripheral IV was started in the Right forearm with a Angio cath: 24 gauge. IV SITE APPEARANCE: Clean,Dry and Intact SIGNATURE: Leanna Masterson RN PATIENT NAME: Dior Carvajal DATE: May 26, 2024 TIME: 9:50 AM [facility] 05-15-2024 Telephone encounter Note Called [facility] to inform them of the patient's appointments. Called and spoke with patient's sister, Katie as well. [facility] Work Phone: 05-15-2024 Miscellaneous Notes Called [facility] to inform them of the patient's appointments. Called and spoke with patient's sister, Katie as well. documented in this encounter [facility] 05-13-2024 Progress note Formatting of t his note might be different from the original. I reviewed the images results with Katie the patient's sister and MPOA. I encouraged Katie, to sign in, for MyChart. Mini Whyte MD [facility] 05-13-2024 Progress note Formatting of t his note might be different from the original. I reviewed the images results with Katie the patient's sister and MPOA. I encouraged Katie, to sign in, for MyChart. Mini Whyte MD [facility] 05-13-2024 Miscellaneous Notes I reviewed the images results with Katie the patient's sister and MPOA. I encouraged Katie, to sign in, for MyChart. Mini Whyte MD documented in this encounter [facility] 05-13-2024 Telephone encounter Note Summary: Telephone communication of the MRI results with the patient's sister Images from the original note were not included. Telephone communication of the MRI results with the patient's sister, in view, that it is cumbersome to get a hold of the patient herself, and she also has problems with memory the patient's request and her sister who is her MPOA, they have requested for me to speak with Katie her sister, first and Katie will deliver the messages to the patient. I called Josie, patient's sister and MPOA, about the results of the MRIs. I reviewed the reports, and the significance of it. I also reiterated, of my recommendation for the patient to see a specialist, and cerebrovascular neurology, as well spine surgeon. 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 Also history of a stroke, with severe atherosclerosis, that has unfortunately, render the patient, with neurological compromise. However, the patient is stable clinically, at this point. Katie verbalized understanding, of the review of the images and results and agrees, with the recommendations. Katie is aware, that the patient has follow-up appointments for MRIs and with me in my clinic as well with the other specialist. She said that she will make sure, Dior attend those appointments. Mini Whyte MD Results MR-MRA Neck without Contrast - OVERREAD (Acc#[id number]) (Order [id number]) Patient Info Patient Name Sex Dior Artis ([id number]) Female 1965 In Basket Actions Done Result Mgmt View in In Basket 05/13/2024 8:39 AM - Radiology, O[facility] In Addenda * * *Final Report* * * * * * SEE BOTTOM OF REPORT FOR ADDENDED TEXT * * * DATE OF EXAM: Apr 29 2024 12:00AM OUT 0001 - MR OUTSIDE CD DICOM IMPORT -NBNR / PROCEDURE REASON: Tumor Board Discussion * * * * Physician Interpretation * * * * * * * * * * * * ORIGINAL REPORT * * * * * * * * EXAMINATION: OUTSIDE IMAGING INTERPRETATION Indication for the Request / Reason for Overread: Tumor Board Discussion Service Requesting Consult: Neurology Any specific Issue(s) to be discussed: Tumor Board discussion Images Reviewed: [id number] MR Angiogram of the Neck and MR of the cervical spine without and with contrast performed on 04/29/2024 12:00 AM Overread Date: 05/08/2024 9:40 AM HISTORY: History of RIGHT frontal anaplastic astrocytoma. RESULT: CERVICAL SPINE: Counting reference: Craniocervical junction. Anatomic Variants: None. Localizer images: Noncontributory Alignment: Straightening of normal cervical lordosis. Craniocervical junction: Craniocervical junction is normal. Cord: Atrophy of the cervical cord spanning C5-C7 levels with T2 STIR hyperintense cord signal abnormality at C7 level consistent with changes of chronic myelomalacia. Bone marrow signal/fracture: Postoperative changes of C5-C7 anterior spinal fusion with apparent solid osseous fusion of C5-C7 vertebral bodies. Prominent anterior osteophyte at C4-5 mildly deforms the posterior wall of the hypopharynx. There is mild STIR hyperintensity and marrow edema/enhancement about the C3-4 disc space favored to be related to type I degenerative endplate change. Apparent marrow hyperintensity involving the C5-T1 vertebral bodies on postcontrast fat-saturated T1 images favored to be related to incomplete fat suppression from susceptibility secondary to spinal hardware. Cervical soft tissues: The paraspinal soft tissues are within normal limits. T2 hyperintense subcentimeter LEFT thyroid nodule. Canal and foramina: Posterior disc osteophyte complexes at C3-4, and C4-5 resulting in mild canal stenosis with ventral cord abutment at these levels. No high-grade canal stenosis. Mild multilevel facet and uncovertebral arthropathy contributing to moderate bilateral C3-4 and mild bilateral C4-5 neural foraminal narrowing. MRA NECK: Carotid Stenosis: Right Common: No significant stenosis. Right Internal Plaque: Moderate plaque formation at the RIGHT carotid bulb Right Internal Carotid Stenosis (% by NASCET Criteria): Approximately 50% Left Common: No significant stenosis. Left Internal Carotid Plaque: Moderate to severe plaque formation at the LEFT carotid bifurcation Left Internal Carotid Stenosis (% by NASCET Criteria): Approximately 70% Cervical Vertebral Arteries: RIGHT vertebral artery is patent. 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 Myelomalacia involving C5-C7 cervical cord as described. Mild cervical spondylosis as described. No intradural pathologic enhancement. Anatomic Variant: None. Assume 7 cervical vertebrae with counting from the craniocervical junction. * * * * * * * * ADDENDUM #1 * * * * * * * * ADDENDUM Addendum is being placed for additional commentary on comparison to 02-04-2010 MR Cervical spine imaging. Compared to 02/04/2010, there is no significant change in extent of T2 STIR hyperintense cord signal abnormality centered at C7 level accounting for differences in technique, although degree of associated cord atrophy spanning C5-C7 levels appears mildly progressed from 2010. Overall appearance suggests mild progression of C5-C7 cord myelomalacia. Moderate foraminal narrowing at bilateral C3-4 is mildly progressed from 2010. Otherwise no significant progression of cervical spondylosis from 2010 exam. Laundry Aide: [facility] Transcribe Date/Time: May 13 2024 8:25A Dictated by : KATTY DAI MD This examination was interpreted and the report reviewed and electronically signed by: KATTY DAI MD on May 08 2024 10:06AM EST This document has been addended by: KATTY DAI MD on May 13 2024 8:37AM EST * * *Final Report* * * DATE OF EXAM: Apr 29 2024 12:00AM OUT 0001 - MR OUTSIDE CD DICOM IMPORT -NBNR / PROCEDURE REASON: Tumor Board Discussion * * * * Physician Interpretation * * * * EXAMINATION: OUTSIDE IMAGING INTERPRETATION Indication for the Request / Reason for Overread: Tumor Board Discussion Service Requesting Consult: Neurology Any specific Issue(s) to be discussed: Tumor Board discussion Images Reviewed: [id number] MR Angiogram of the Neck and MR of the cervical spine without and with contrast performed on 04/29/2024 12:00 AM Overread Date: 05/08/2024 9:40 AM HISTORY: History of RIGHT frontal anaplastic astrocytoma. RESULT: CERVICAL SPINE: Counting reference: Craniocervical junction. Anatomic Variants: None. Localizer images: Noncontributory Alignment: Straightening of normal cervical lordosis. Craniocervical junction: Craniocervical junction is normal. Cord: Atrophy of the cervical cord spanning C5-C7 levels with T2 STIR hyperintense cord signal abnormality at C7 level consistent with changes of chronic myelomalacia. Bone marrow signal/fracture: Postoperative changes of C5-C7 anterior spinal fusion with apparent solid osseous fusion of C5-C7 vertebral bodies. Prominent anterior osteophyte at C4-5 mildly deforms the posterior wall of the hypopharynx. There is mild STIR hyperintensity and marrow edema/enhancement about the C3-4 disc space favored to be related to type I degenerative endplate change. Apparent marrow hyperintensity involving the C5-T1 vertebral bodies on postcontrast fat-saturated T1 images favored to be related to incomplete fat suppression from susceptibility secondary to spinal hardware. Cervical soft tissues: The paraspinal soft tissues are within normal limits. T2 hyperintense subcentimeter LEFT thyroid nodule. Canal and foramina: Posterior disc osteophyte complexes at C3-4, and C4-5 resulting in mild canal stenosis with ventral cord abutment at these levels. No high-grade canal stenosis. Mild multilevel facet and uncovertebral arthropathy contributing to moderate bilateral C3-4 and mild bilateral C4-5 neural foraminal narrowing. MRA NECK: Carotid Stenosis: Right Common: No significant stenosis. Right Internal Plaque: Moderate plaque formation at the RIGHT carotid bulb Right Internal Carotid Stenosis (% by NASCET Criteria): Approximately 50% Left Common: No significant stenosis. Left Internal Carotid Plaque: Moderate to severe plaque formation at the LEFT carotid bifurcation Left Internal Carotid Stenosis (% by NASCET Criteria): Approximately 70% Cervical Vertebral Arteries: RIGHT vertebral artery is patent. 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 Myelomalacia involving C5-C7 cervical cord as described. Mild cervical spondylosis as described. No intradural pathologic enhancement. Anatomic Variant: None. Assume 7 cervical vertebrae with counting from the craniocervical junction. [facility] Transcribe Date/Time: May 08 2024 9:40A Dictated by : KATTY DAI MD This examination was interpreted and the report reviewed and electronically signed by: KATTY DAI MD on May 08 2024 10:06AM EST Results-Findings Result History MR-MRA Neck without Contrast - OVERREAD (Order #[id number]) on 05/13/2024 - Order Result History Report - Result Edited Result Information Status Provider Status Edited Result - FINAL (05/13/2024 8:39 AM) Ordered Exam Performed Date and Time 04/29/2024 Resulting Agency DIVISION OF RADIOLOGY [id number] [facility] [id number] Patient Images Get Images MR-MRA Neck without Contrast - OVERREAD: Patient Communication Not Released Not seen Patient Release Status: This result is not viewable by the patient. Recipient List for Orders Batch Status Sent From To Cc'd Forwarded To Results Sent 05/08/2024 10:08 AM Radiology Oru In Mini Whyte MD MR-MRA Neck without Contrast - OVERREAD [[id number]] Routing History Priority Sent On From To Message Type 05/08/2024 10:08 AM Jeb O[facility] In Mini Whyte MD Results Order Report Order Details Results MR-Spine Cervical W/WO Contrast - OVERREAD ([id number] [facility]) (Order [id number]) Patient Info Patient Name Sex Dior Carvajal ([id number]) Female 1965 In Basket Actions Done Result Mgmt View in In Basket 05/13/2024 8:39 AM - Radiology, O[facility] In Addenda * * *Final Report* * * * * * SEE BOTTOM OF REPORT FOR ADDENDED TEXT * * * DATE OF EXAM: Apr 29 2024 12:00AM OUT 0001 - MR OUTSIDE CD DICOM IMPORT -NBNR / PROCEDURE REASON: Tumor Board Discussion * * * * Physician Interpretation * * * * * * * * * * * * ORIGINAL REPORT * * * * * * * * EXAMINATION: OUTSIDE IMAGING INTERPRETATION Indication for the Request / Reason for Overread: Tumor Board Discussion Service Requesting Consult: Neurology Any specific Issue(s) to be discussed: Tumor Board discussion Images Reviewed: Ikqw-dl-nvshez MR Angiogram of the Neck and MR of the cervical spine without and with contrast performed on 04/29/2024 12:00 AM Overread Date: 05/08/2024 9:40 AM HISTORY: History of RIGHT frontal anaplastic astrocytoma. RESULT: CERVICAL SPINE: Counting reference: Craniocervical junction. Anatomic Variants: None. Localizer images: Noncontributory Alignment: Straightening of normal cervical lordosis. Craniocervical junction: Craniocervical junction is normal. Cord: Atrophy of the cervical cord spanning C5-C7 levels with T2 STIR hyperintense cord signal abnormality at C7 level consistent with changes of chronic myelomalacia. Bone marrow signal/fracture: Postoperative changes of C5-C7 anterior spinal fusion with apparent solid osseous fusion of C5-C7 vertebral bodies. Prominent anterior osteophyte at C4-5 mildly deforms the posterior wall of the hypopharynx. There is mild STIR hyperintensity and marrow edema/enhancement about the C3-4 disc space favored to be related to type I degenerative endplate change. Apparent marrow hyperintensity involving the C5-T1 vertebral bodies on postcontrast fat-saturated T1 images favored to be related to incomplete fat suppression from susceptibility secondary to spinal hardware. Cervical soft tissues: The paraspinal soft tissues are within normal limits. T2 hyperintense subcentimeter LEFT thyroid nodule. Canal and foramina: Posterior disc osteophyte complexes at C3-4, and C4-5 resulting in mild canal stenosis with ventral cord abutment at these levels. No high-grade canal stenosis. Mild multilevel facet and uncovertebral arthropathy contributing to moderate bilateral C3-4 and mild bilateral C4-5 neural foraminal narrowing. MRA NECK: Carotid Stenosis: Right Common: No significant stenosis. Right Internal Plaque: Moderate plaque formation at the RIGHT carotid bulb Right Internal Carotid Stenosis (% by NASCET Criteria): Approximately 50% Left Common: No significant stenosis. Left Internal Carotid Plaque: Moderate to severe plaque formation at the LEFT carotid bifurcation Left Internal Carotid Stenosis (% by NASCET Criteria): Approximately 70% Cervical Vertebral Arteries: RIGHT vertebral artery is patent. 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 Myelomalacia involving C5-C7 cervical cord as described. Mild cervical spondylosis as described. No intradural pathologic enhancement. Anatomic Variant: None. Assume 7 cervical vertebrae with counting from the craniocervical junction. * * * * * * * * ADDENDUM #1 * * * * * * * * ADDENDUM Addendum is being placed for additional commentary on comparison to 02-04-2010 MR Cervical spine imaging. Compared to 02/04/2010, there is no significant change in extent of T2 STIR hyperintense cord signal abnormality centered at C7 level accounting for differences in technique, although degree of associated cord atrophy spanning C5-C7 levels appears mildly progressed from 2010. Overall appearance suggests mild progression of C5-C7 cord myelomalacia. Moderate foraminal narrowing at bilateral C3-4 is mildly progressed from 2010. Otherwise no significant progression of cervical spondylosis from 2010 exam. Laundry Aide: [facility] Transcribe Date/Time: May 13 2024 8:25A Dictated by : KATTY DAI MD This examination was interpreted and the report reviewed and electronically signed by: KATTY DAI MD on May 08 2024 10:06AM EST This document has been addended by: KATTY DAI MD on May 13 2024 8:37AM EST * * *Final Report* * * DATE OF EXAM: Apr 29 2024 12:00AM OUT 0001 - MR OUTSIDE CD DICOM IMPORT -NBNR / PROCEDURE REASON: Tumor Board Discussion * * * * Physician Interpretation * * * * EXAMINATION: OUTSIDE IMAGING INTERPRETATION Indication for the Request / Reason for Overread: Tumor Board Discussion Service Requesting Consult: Neurology Any specific Issue(s) to be discussed: Tumor Board discussion Images Reviewed: [id number]-[id number]-[id number] MR Angiogram of the Neck and MR of the cervical spine without and with contrast performed on 04/29/2024 12:00 AM Overread Date: 05/08/2024 9:40 AM HISTORY: History of RIGHT frontal anaplastic astrocytoma. RESULT: CERVICAL SPINE: Counting reference: Craniocervical junction. Anatomic Variants: None. Localizer images: Noncontributory Alignment: Straightening of normal cervical lordosis. Craniocervical junction: Craniocervical junction is normal. Cord: Atrophy of the cervical cord spanning C5-C7 levels with T2 STIR hyperintense cord signal abnormality at C7 level consistent with changes of chronic myelomalacia. Bone marrow signal/fracture: Postoperative changes of C5-C7 anterior spinal fusion with apparent solid osseous fusion of C5-C7 vertebral bodies. Prominent anterior osteophyte at C4-5 mildly deforms the posterior wall of the hypopharynx. There is mild STIR hyperintensity and marrow edema/enhancement about the C3-4 disc space favored to be related to type I degenerative endplate change. Apparent marrow hyperintensity involving the C5-T1 vertebral bodies on postcontrast fat-saturated T1 images favored to be related to incomplete fat suppression from susceptibility secondary to spinal hardware. Cervical soft tissues: The paraspinal soft tissues are within normal limits. T2 hyperintense subcentimeter LEFT thyroid nodule. Canal and foramina: Posterior disc osteophyte complexes at C3-4, and C4-5 resulting in mild canal stenosis with ventral cord abutment at these levels. No high-grade canal stenosis. Mild multilevel facet and uncovertebral arthropathy contributing to moderate bilateral C3-4 and mild bilateral C4-5 neural foraminal narrowing. MRA NECK: Carotid Stenosis: Right Common: No significant stenosis. Right Internal Plaque: Moderate plaque formation at the RIGHT carotid bulb Right Internal Carotid Stenosis (% by NASCET Criteria): Approximately 50% Left Common: No significant stenosis. Left Internal Carotid Plaque: Moderate to severe plaque formation at the LEFT carotid bifurcation Left Internal Carotid Stenosis (% by NASCET Criteria): Approximately 70% Cervical Vertebral Arteries: RIGHT vertebral artery is patent. 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 Myelomalacia involving C5-C7 cervical cord as described. Mild cervical spondylosis as described. No intradural pathologic enhancement. Anatomic Variant: None. Assume 7 cervical vertebrae with counting from the craniocervical junction. Laundry Aide: [facility] Transcribe Date/Time: May 08 2024 9:40A Dictated by : KATTY DAI MD This examination was interpreted and the report reviewed and electronically signed by: KATTY DAI MD on May 08 2024 10:06AM EST Results-Findings Result History MR-Spine Cervical W/WO Contrast - OVERREAD (Order #[id number]) on 05/13/2024 - Order Result History Report - Result Edited Result Information Status Provider Status Edited Result - FINAL (05/13/2024 8:39 AM) Ordered Exam Performed Date and Time 04/29/2024 Resulting Agency DIVISION OF RADIOLOGY [facility] [place] [address] Patient Images Get Images MR-Spine Cervical W/WO Contrast - OVERREAD: Patient Communication Not Released Not seen Patient Release Status: This result is not viewable by the patient. Recipient List for Orders Batch Status Sent From To Cc'd Forwarded To Results Sent 05/08/2024 10:08 AM Harmony Russ In Mini Whyte MD MR-Spine Cervical W/WO Contrast - OVERREAD [[id number]] Routing History Priority Sent On From To Message Type 05/08/2024 10:08 AM Harmony Russ In Mini Whyte MD Results Order Report Order Details [facility] 05-13-2024 Miscellaneous Notes Summary: Telephone communication of the MRI results with the patient's sister Images from the original note were not included. Telephone communication of the MRI results with the patient's sister, in view, that it is cumbersome to get a hold of the patient herself, and she also has problems with memory the patient's request and her sister who is her MPOA, they have requested for me to speak with Katie her sister, first and Katie will deliver the messages to the patient. I called Josie, patient's sister and MPOA, about the results of the MRIs. I reviewed the reports, and the significance of it. I also reiterated, of my recommendation for the patient to see a specialist, and cerebrovascular neurology, as well spine surgeon. 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 Also history of a stroke, with severe atherosclerosis, that has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 scheduled for 05/26/24. PLAN: 1-Astrocytoma, WHO grade 3. -Obtain reliable records of her brain tumor history from [facility]. -Obtain, the actual pathology, from [facility] if possible, for neuro pathology review at [facility]. -MRI brain w and w/o + perfusion in 3 months time. MRI to be done at [facility]. Booked for 05/26/24. I ordered MRA of the brain, to be done along with these last MRI's but for some reason this image was not done. I will re-order it so it can be done with the mR of the dana scheduled for 05/26/24. -Premedications, with diphenhydramine and prednisone to prevent a potential allergic reaction to gadolinium contrast for MRI. -Visit clinic the same day of the MR of the MRI is to be done at . Booked for 05/26/24 -Family and preferably MPOA to attend at next appointment as well. 2-Referral to neuropsychology for assessment on cognition. DONE. Patient seen by Dr. Bindu Burt on 02/13/2024. -Referral, to brain health, [facility] for assessment, regarding whether there is an underlying primary dementia syndrome. 3-PCP: To continue general medical care by PCP, Leela Escoto, 4-History of Stroke: Left Vertebral artery occlusion -the question is whether her stroke was from accelerated atherosclerosis as she had radiation treatments for her brain tumor. I will ask the patient to have an MR angiogram of the head and neck NON CONTRAST - TIME OF FLIGHT (to minimize contrast exposure) to re-assess the vasculature. I will also refer her to Stroke Clinic for expert re-evaluation of stroke risk and longitudinal follow up. 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 As the patient has difficulty with gait - I will ask her to have a follow up C-spine MRI to assess whether there are any new spinal canal and or spinal cord issues which may also explain her gait difficulty Referral to Spine medicine. -X-rays of the cervical spine - extension and flexion. PLAN 05/08/24: -MRI brain w and w/o and perfusion booked for 05/26/24 -Clinic visit booked for 05/26/24 -Will re-order MR Angiogram of the brain as it was not done (previously ordered on 02/27/25) -Also for the c-spine x-rays flexion/extension to be done. Has been ordered. ORDER: CONSULT TO NEUROLOGY [facility] PENDING Routine, Dx: 1. Allergy to intravenous contrast media 2. Anaplastic astrocytoma (HCC) 3. Mild cognitive impairment 4. Cognitive decline 5. Occlusion and stenosis of unspecified carotid artery 6. Pathological fracture, other site, initial encounter for fracture 7. Injury of cervical spinal cord, sequela (HCC) 8. Quadriplegia (HCC) CONSULT TO NEUROLOGY [facility] (Dementia) PENDING Routine, Dx: 1. Allergy to intravenous contrast media 2. Anaplastic astrocytoma (HCC) 3. Mild cognitive impairment 4. Cognitive decline 5. Occlusion and stenosis of unspecified carotid artery 6. Pathological fracture, other site, initial encounter for fracture 7. Injury of cervical spinal cord, sequela (HCC) 8. Quadriplegia (HCC) CONSULT TO [facility] PENDING XR CERVICAL 2V FLEX/EXT Routine PENDING Associate Signed Orders 05/08/24 Orders Signed This Visit (1) MRA BRAIN WO IVCON MARYJANE ORDERS 05/08/24: Associate Signed Orders Orders Signed This Visit (3) diphenhydrAMINE HCL 50 mg tablet Medication, to prevent allergic reaction, to MR contrast (gadolinium]. Take 50 mg, 1 (ONE) hour prior to MRI Normal, Disp-5 tablet, R-11 Dx: 1. Allergy to intravenous contrast media predniSONE (DELTASONE) 50 mg Take this medication, every 6 hours, for 3 doses for prevention of contrast MR (gadolinium] allergy. Take 50 mg, 13 hours, then 7 hours, then 1 hour, prior to the MRI Normal, Disp-3 tablet, R-11 Dx: 1. Allergy to intravenous contrast media MRA BRAIN WO IVCON RE ORDERED 04/07/24 MARYJANE TO BE DONE ON 05/26/24 - ALONG THE BRAIN MR. CONSULT TO NEUROSURGERY SPINE Routine, Dx: 1. 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) 2. Allergy to intravenous contrast media 3. Anaplastic astrocytoma (HCC) 4. Mild cognitive impairment 5. Cognitive decline 6. Spondylosis of cervical joint 7. Injury of cervical spinal cord, sequela (HCC) 8. H/O laminectomy CALL SISTER AND MPOA ABOUT THE RESULTS In the end the patient and family verbalized understanding of the above, they had questions which I believe I answered to their satisfaction and agreed with these recommendations and had no further questions or concerns for the moment, but I encourage them to call the [facility] with any questions or concerns. I spent a total of 30 minutes on the date of the service which included preparing to see the patient, at least 50% of [id number] patient care, completing clinical documentation, obtaining and/or reviewing separately obtained history, performing a medically appropriate examination, counseling and educating the patient/family/caregiver, ordering medications, tests, or procedures, communicating with other HCPs (not separately reported), independently interpreting results (not separately reported), communicating results to the patient/family/caregiver and care coordination (not separately reported). Mini Whyte MD [facility] [place] [address] Phone patient to review MRA Neck and MRi C spine results 04/29/24 2nd read requested Patient lives in a facility documented in this encounter [facility] 05-08-2024 Miscellaneous Notes Summary: Telephone call The patient is scheduled for a telephone call, but as requested by the patient's sister who is her caregiver they should call here first that is Katie Mo, I called her, but unfortunately I could not reach her but I left a message that I called and hopefully everything is okay with him and with here, and I asked her to the to call us so we can reschedule these telephone encounter. Mini Whyte MD documented in this encounter [facility] 05-08-2024 Telephone encounter Note Summary: Telephone call The patient is scheduled for a telephone call, but as requested by the patient's sister who is her caregiver they should call here first that is Katie Hassan, I called her, but unfortunately I could not reach her but I left a message that I called and hopefully everything is okay with him and with here, and I asked her to the to call us so we can reschedule these telephone encounter. Mini Whyte MD [facility] 05-08-2024 Note HNO ID: [id number] Author: GERDA DEE RN Service: ? Author Type: Registered Nurse Type: Progress Notes Filed: 05/10/2024 14:12 Note Text: Phone patient to review MRA Neck and MRi C spine results 04/29/24 2nd read requested Patient lives in a facility [facility] 05-02-2024 Telephone encounter Note Contacted [facility] radiology ph [phone] and spoke with [employer]. She will push over MRA Neck /MRI spine images. Once received and reviewed by Dr Spears he will contact patient. Gerda Dee RN, BSN Instrument Tech Niesha [facility] Work Phone: 05-02-2024 Miscellaneous Notes Contacted [facility] radiology ph [phone] and spoke with Lana. She will push over MRA Neck /MRI spine images. Once received and reviewed by Dr Spears he will contact patient. Gerda Dee, RN, BSN Instrument Tech [facility] documented in this encounter [facility] 04-11-2024 Telephone encounter Note Spoke with RN at patient's nursing facility. She states that the patient is scheduled for 04/28/24 for her MRI and MRA. She has requested they push images over the [facility] after they are completed. Will add patient on for provider phone call once images are received. [facility] Work Phone: 04-11-2024 Miscellaneous Notes Spoke with RN at patient's nursing facility. She states that the patient is scheduled for 04/28/24 for her MRI and MRA. She has requested they push images over the [facility] after they are completed. Will add patient on for provider phone call once images are received. documented in this encounter [facility] 04-01-2024 Telephone encounter Note Received a call from nurse Cindy. They are unable to arrange transportation to [place] for her scans tomorrow but will arrange for them to be done at [facility]. I faxed the orders for xray c spine, MRI C spine, MRA brain/carotid to [facility] fax [phone] along with pre medication orders for prednisone and benadryl. I also faxed her appointment for May. Transmission was good. Someone from the facility will contact me with the scan dates, then we need to call [facility] radiology to have images pushed over. Due to some issues with transportation we discussed possibly doing a phone call follow up to discuss results. Patient does not have My Chart and Cindy was going to talk to social services technician about assisting with set up. Appointments in May for MRI main campus and visit same day. Gerda Dee RN, BSN Instrument Tech Niesha [facility] Work Phone: 04-01-2024 Miscellaneous Notes Received a call from nurse Cindy. They are unable to arrange transportation to [place] for her scans tomorrow but will arrange for them to be done at [facility]. I faxed the orders for xray c spine, MRI C spine, MRA brain/carotid to [facility] fax [phone] along with pre medication orders for prednisone and benadryl. I also faxed her appointment for May. Transmission was good. Someone from the facility will contact me with the scan dates, then we need to call [facility] radiology to have images pushed over. Due to some issues with transportation we discussed possibly doing a phone call follow up to discuss results. Patient does not have My Chart and Cindy was going to talk to social services technician about assisting with set up. Appointments in May for MRI main campus and visit same day. Gerda Dee RN, BSN Instrument Tech Niesha Grady [facility] I contacted the facility again and spoke with Bushra to confirm Dior's imaging appointments for 1?8 and pre-medication. Bushra was not aware of the need for pre-medication and read her the instructions for Prednisone 50mg (x 3 doses starting 13 hours before, 7 hours before and 1 hour before) and Benadryl 50mg x1 one hour before. Bushra is questioning why scans can not be arranged to be done at [facility] as transportation may be an issue. She is going to check and call me back later today Gerda Dee RN, BSN Instrument Tech Niesha [facility] documented in this encounter [facility] 04-01-2024 Telephone encounter Note I contacted the facility again and spoke with Bushra to confirm Dior's imaging appointments for 1?8 and pre-medication. Bushra was not aware of the need for pre-medication and read her the instructions for Prednisone 50mg (x 3 doses starting 13 hours before, 7 hours before and 1 hour before) and Benadryl 50mg x1 one hour before. Bushra is questioning why scans can not be arranged to be done at [facility] as transportation may be an issue. She is going to check and call me back later today Gerda Dee RN, BSN Instrument Tech Niesha Salinsa [facility] 03-31-2024 Telephone encounter Note Called and spoke with nurse Dior at [facility], they were unaware of the appointments this week and next, she took down all information and will update her records. India Chi RN [facility] 03-31-2024 Miscellaneous Notes Called and spoke with nurse Doir at [facility], they were unaware of the appointments this week and next, she took down all information and will update her records. India Chi RN documented in this encounter [facility] 03-24-2024 Note HNO ID: [id number] Author: GERDA DEE RN Service: ? Author Type: Registered Nurse Type: Progress Notes Filed: 03/24/2024 16:20 Note Text: Patient is moving to [place], [place] Gerda Dee RN, BSN Instrument Tech Niesha Salinas [facility] 03-24-2024 History of Present illness Narrative Patient is moving to [place], [place] Gerda Dee RN, BSN Instrument Tech Niesha Ysabel [facility] documented in this encounter [facility] 03-24-2024 Telephone encounter Note Contacted [facility] regarding appointments scheduled for 04/02/24 (xray, MRA) and visit with Dr Spears on 04/07. I was told she is moving today to [facility] in [facility]. I confirmed all her upcoming appointments and was told her appointment sheet will be sent with her to [facility]. I called and left a message for her sister Katie regarding her 04/02 imaging studies and appointment with Dr Spears on 04/07 Patient has prednisone for her MRI scheduled for 3/3 but will need refill for the 04/02 scans. Refill sent to Dr Spears. Gerda Dee RN, BSN Instrument Tech Niesha [facility] Work Phone: 03-24-2024 Miscellaneous Notes Contacted [facility] regarding appointments scheduled for 04/02/24 (xray, MRA) and visit with Dr Spears on 04/07. I was told she is moving today to [facility] in [facility]. I confirmed all her upcoming appointments and was told her appointment sheet will be sent with her to [facility]. I called and left a message for her sister Katie regarding her 04/02 imaging studies and appointment with Dr Spears on 04/07 Patient has prednisone for her MRI scheduled for 3/3 but will need refill for the 04/02 scans. Refill sent to Dr Spears. Gerda Dee RN, BSN Instrument Tech Niesha [facility] documented in this encounter [facility] 03-20-2024 Note HNO ID: [id number] Author: ZORA FLORES APRN.[employer] DOW[employer] DRAWING OPERATOR Service: ? Author Type: Nurse Practitioner Type: Progress Notes Filed: 03/20/2024 09:11 Note Text: Connected Care Unit Progress Note Facility: [facility] Level of Care: Long-term SNF Attending: Macarena Bain M.D. Service Date: 03/20/2024 Reason For Visit: for a seen for chronic condition management and medical complexity. Past Medical History: Past Medical Hx: PAST MEDICAL HISTORY Diagnosis Date Abnormal gait Acute neutrophilia Atrophic vaginitis Chronic constipation Cobalamin deficiency Constipation Depressive disorder Dyslipidemia Essential hypertension Falls GERD (gastroesophageal reflux disease) Hip pain Incomplete emptying of bladder Insomnia Late effects of cerebrovascular disease Multiple joint pain Neck pain Nephrolithiasis Osteoarthritis of multiple joints knees, neck Pain in joint, pelvic region and thigh 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 Tobacco abuse Urinary incontinence, mixed Urinary retention Vitamin D deficiency HPI: Subjective Data: Patient seen today for follow up c/o dysuria foul smelling urine, urine culture sent increased fluids po, + 100,000 with proteus mirabilius no fevers or chills Review of System No reports of or complaints of chest pain, palpitations, shortness of breath, cough, change in bowel habit, abdominal pain, nausea or vomiting. . No fevers. No falls. Family/Social History: Unchanged. Medications: see current medication list in [facility] chart, reviewed (Medications in [facility] may not accurate, please see update in [facility] chart) Objective Data: Vital signs reviewed with nurse Visit made with required PPE per facility policy General: Alert, no distress, comfortable, in bed Skin: warm dry no rash seen HEENT: no exudate, lymphadenopathy or masses Chest: good resp effort no distress, -cough,-sob Abdomen: no distention or masses +bs soft Extremities: + edema, MSK: patient able to moves limbs actively Neuro: AANDo 2 Psy: appropriate mood and affect Lab/Diagnosis: I have reviewed this patient's medications and treatment plan, as available, as well as most recent labwork available for review. Proteus mirabilis 100,000 esbl No off label use of medications. Assessment and Plan: ASSESSMENT/PLAN: 1. Acute cystitis without hematuria - ICD9: 595.0, ICD10: N30.00 Bactrim ds bid x 5 days with 240 cc water tolerating no rash Note was copied forward 03/18 and updated to reflect today's visit. Zora Flores APRN.SHERYL We will continue to monitor for overall comfort, function and safety. Call for changes in condition. Electronically signed by Zora Flores APRN.CNP [facility] 03-20-2024 History of Present illness Narrative Images from the original note were not included. Connected Care Unit Progress Note Facility: [facility] Level of Care: Long-term SNF Attending: Macarena Bain M.D. Service Date: 03/20/2024 Reason For Visit: for a seen for chronic condition management and medical complexity. Past Medical History: Past Medical Hx: PAST MEDICAL HISTORY Diagnosis Date Abnormal gait Acute neutrophilia Atrophic vaginitis Chronic constipation Cobalamin deficiency Constipation Depressive disorder Dyslipidemia Essential hypertension Falls GERD (gastroesophageal reflux disease) Hip pain Incomplete emptying of bladder Insomnia Late effects of cerebrovascular disease Multiple joint pain Neck pain Nephrolithiasis Osteoarthritis of multiple joints knees, neck Pain in joint, pelvic region and thigh 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 Tobacco abuse Urinary incontinence, mixed Urinary retention Vitamin D deficiency HPI: Subjective Data: Patient seen today for follow up c/o dysuria foul smelling urine, urine culture sent increased fluids po, + 100,000 with proteus mirabilius no fevers or chills Review of System No reports of or complaints of chest pain, palpitations, shortness of breath, cough, change in bowel habit, abdominal pain, nausea or vomiting. . No fevers. No falls. Family/Social History: Unchanged. Medications: see current medication list in [facility] chart, reviewed (Medications in [facility] may not accurate, please see update in [facility] chart) Objective Data: Vital signs reviewed with nurse Visit made with required PPE per facility policy General: Alert, no distress, comfortable, in bed Skin: warm dry no rash seen HEENT: no exudate, lymphadenopathy or masses Chest: good resp effort no distress, -cough,-sob Abdomen: no distention or masses +bs soft Extremities: + edema, MSK: patient able to moves limbs actively Neuro: A&o 2 Psy: appropriate mood and affect Lab/Diagnosis: I have reviewed this patient's medications and treatment plan, as available, as well as most recent labwork available for review. Proteus mirabilis 100,000 esbl No off label use of medications. Assessment and Plan: ASSESSMENT/PLAN: 1. Acute cystitis without hematuria - ICD9: 595.0, ICD10: N30.00 Bactrim ds bid x 5 days with 240 cc water tolerating no rash Note was copied forward 03/18 and updated to reflect today's visit. Zora Flores APRN.CNP We will continue to monitor for overall comfort, function and safety. Call for changes in condition. Electronically signed by Zora Flores APRN.[employer] DOW[employer] DRAWING OPERATOR documented in this encounter [facility] 03-18-2024 Note HNO ID: [id number] Author: ZORA FLORES APRN.CNP Service: ? Author Type: Nurse Practitioner Type: Progress Notes Filed: 03/18/2024 08:50 Note Text: Connected Care Unit Progress Note Facility: [facility] Level of Care: Long-term SNF Attending: Macarena Bain M.D. Service Date: 03/18/2024 Reason For Visit: for a seen for chronic condition management and medical complexity. Past Medical History: Past Medical Hx: PAST MEDICAL HISTORY Diagnosis Date Abnormal gait Acute neutrophilia Atrophic vaginitis Chronic constipation Cobalamin deficiency Constipation Depressive disorder Dyslipidemia Essential hypertension Falls GERD (gastroesophageal reflux disease) Hip pain Incomplete emptying of bladder Insomnia Late effects of cerebrovascular disease Multiple joint pain Neck pain Nephrolithiasis Osteoarthritis of multiple joints knees, neck Pain in joint, pelvic region and thigh 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 Tobacco abuse Urinary incontinence, mixed Urinary retention Vitamin D deficiency HPI: Subjective Data: Patient seen today for follow up c/o dysuria foul smelling urine, urine culture sent increased fluids po, + 100,000 with proteus mirabilius no fevers or chills Review of System No reports of or complaints of chest pain, palpitations, shortness of breath, cough, change in bowel habit, abdominal pain, nausea or vomiting. . No fevers. No falls. Family/Social History: Unchanged. Medications: see current medication list in [facility] chart, reviewed (Medications in [facility] may not accurate, please see update in [facility] chart) Objective Data: Vital signs reviewed with nurse Visit made with required PPE per facility policy General: Alert, no distress, comfortable, in bed Skin: warm dry no rash seen HEENT: no exudate, lymphadenopathy or masses Chest: good resp effort no distress, -cough,-sob Abdomen: no distention or masses +bs soft Extremities: + edema, MSK: patient able to moves limbs actively Neuro: AANDo 2 Psy: appropriate mood and affect Lab/Diagnosis: I have reviewed this patient's medications and treatment plan, as available, as well as most recent labwork available for review. Proteus mirabilis 100,000 esbl No off label use of medications. Assessment and Plan: ASSESSMENT/PLAN: 1. Acute cystitis without hematuria - ICD9: 595.0, ICD10: N30.00 Bactrim ds bid x 5 days with 240 cc water Zora Flores APRN.[employer]OW[employer] DRAWING OPERATOR We will continue to monitor for overall comfort, function and safety. Call for changes in condition. Electronically signed by Zora Flores APRN.CNP March 18, 2024 8:47 AM [facility] 03-18-2024 History of Present illness Narrative Images from the original note were not included. Connected Care Unit Progress Note Facility: [facility] Level of Care: Long-term SNF Attending: Macarena Bain M.D. Service Date: 03/18/2024 Reason For Visit: for a seen for chronic condition management and medical complexity. Past Medical History: Past Medical Hx: PAST MEDICAL HISTORY Diagnosis Date Abnormal gait Acute neutrophilia Atrophic vaginitis Chronic constipation Cobalamin deficiency Constipation Depressive disorder Dyslipidemia Essential hypertension Falls GERD (gastroesophageal reflux disease) Hip pain Incomplete emptying of bladder Insomnia Late effects of cerebrovascular disease Multiple joint pain Neck pain Nephrolithiasis Osteoarthritis of multiple joints knees, neck Pain in joint, pelvic region and thigh 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 Tobacco abuse Urinary incontinence, mixed Urinary retention Vitamin D deficiency HPI: Subjective Data: Patient seen today for follow up c/o dysuria foul smelling urine, urine culture sent increased fluids po, + 100,000 with proteus mirabilius no fevers or chills Review of System No reports of or complaints of chest pain, palpitations, shortness of breath, cough, change in bowel habit, abdominal pain, nausea or vomiting. . No fevers. No falls. Family/Social History: Unchanged. Medications: see current medication list in [facility] chart, reviewed (Medications in [facility] may not accurate, please see update in [facility] chart) Objective Data: Vital signs reviewed with nurse Visit made with required PPE per facility policy General: Alert, no distress, comfortable, in bed Skin: warm dry no rash seen HEENT: no exudate, lymphadenopathy or masses Chest: good resp effort no distress, -cough,-sob Abdomen: no distention or masses +bs soft Extremities: + edema, MSK: patient able to moves limbs actively Neuro: A&o 2 Psy: appropriate mood and affect Lab/Diagnosis: I have reviewed this patient's medications and treatment plan, as available, as well as most recent labwork available for review. Proteus mirabilis 100,000 esbl No off label use of medications. Assessment and Plan: ASSESSMENT/PLAN: 1. Acute cystitis without hematuria - ICD9: 595.0, ICD10: N30.00 Bactrim ds bid x 5 days with 240 cc water Zora Flores APRN.[employer]ER[employer] D[employer] DRAWING OPERATOR We will continue to monitor for overall comfort, function and safety. Call for changes in condition. Electronically signed by Zora Flores APRN.CNP March 18, 2024 8:47 AM documented in this encounter [facility] 03-17-2024 Telephone encounter Note Sent all requests below to the scheduling pools. Dorcas [facility] Work Phone: 03-17-2024 Miscellaneous Notes Sent all requests below to the scheduling pools. Dorcas Patient resides At [facility] [phone]-let them know of any appointments. Scheduling Request - New Patient Time Frame: next available Orders: consult to neurology - cerebrovascular Provider or Provider Group: any Visit type: In person Referring: Dr. Spears Diagnosis: . Allergy to intravenous contrast media 2. Anaplastic astrocytoma (HCC) 3. Mild cognitive impairment 4. Cognitive decline 5. Occlusion and stenosis of unspecified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 400 k/uL 284 311 303 MPV 9.0 - 12.7 fL 9.5 9.7 9.2 Baso% % 0.4 0.2 Abs Neut (ANC) 1.45 - 7.50 k/uL 7.39 13.18 Abs Lymph 1.00 - 4.00 k/uL 1.92 1.95 Abs Sterling <0.87 k/uL 0.44 0.72 Abs Eosin <0.46 k/uL 0.07 0.04 Abs Baso <0.11 k/uL 0.04 0.03 Platelet Estimate Adequate Latest Ref Rng & Units 12/26/2021 03/20/2022 12/25/2023 CMP Sodium 136 - 144 mmol/L 142 139 Potassium 3.7 - 5.1 mmol/L 4.0 3.7 Chloride 97 - 105 mmol/L 105 102 CO2 22 - 30 mmol/L 28 26 Glucose 74 - 99 mg/dL 94 122 BUN 7 - 21 mg/dL 8 9 Creatinine 0.58 - 0.96 mg/dL 0.54 0.49 Creatinine (POCT) 0.6 - 1.3 mg/dL 0.60 EGFR >=60 mL/min/1.73m 108 109 Protein, Total 6.3 - 8.0 g/dL 6.9 Albumin 3.9 - 4.9 g/dL 4.1 Calcium 8.5 - 10.2 mg/dL 10.0 10.3 Bilirubin, Total 0.2 - 1.3 mg/dL 0.2 - 1.3 mg/dL 0.4 0.4 AST 13 - 35 U/L 15 ALT 7 - 38 U/L 8 Alkaline Phosphatase 34 - 123 U/L 121 Final Pathology: DATA EXTRACTED FORM CARE EVERYWHERE- SEE FULL REPORT IN CARE EVERYWHERE. Clinical Information CLINICAL DIAGNOSIS & HISTORY: Right craniotomy brain tumor, 04/30/92 [facility] Final Diagnosis FINAL DIAGNOSIS: A,B,C&D. Brain tumor: Anaplastic astrocytoma. [facility] Nonchartable [id number] R Signed-Out [facility] Nonchartable A. FS-BRAIN TUMOR Collected: 05/18/1992 Received: 05/18/1992 B. BRAIN TUMOR Collected: 05/18/1992 Received: 05/18/1992 C. brain tumor Collected: 05/18/1992 Received: 05/18/1992 D. BRAIN TUMOR Collected: 05/18/1992 Received: 05/18/1992 SNOMED: [id number] Imaging: [facility] Procedure Notes - documented in this encounter Severo Stuart, Jair Ames MD - 07/06/1999 11:12 AM EDT Associated Order(s): MRI CERVICAL SPINE W+W/O CON MPRESSION: 1. Postoperative changes from anterior fusion at C5 through C7. The cord appears atrophic through these levels, and there is a small area of myelomalacia at the C7 level. These findings are all unchanged from the previous study of 05/26/98. 2. Mild degenerative changes at C3-4 and C4-5, unchanged. No neural compression or canal stenosis results. Feb 02, 2010 MRi Brain- Metro 05/15/2002 FINDINGS: Comparison is made to the prior study dated 07/06/1999. Again, post-operative changes are noted from right frontal craniotomy with resection of the patient's right frontal lobe tumor. Encephalomalacia is again seen in the post-operative site. There is no evidence of abnormal enhancement to suggest recurrent tumor. There is no evidence of intracranial mass effect. Ex vacuo dilatation of the right frontal horn is again noted. No other focal abnormality is seen. IMPRESSION: Stable appearance of the brain with encephalomalacia in the right frontal lobe at the site of the tumor resection. No evidence of tumor recurrence is seen. 12/25/2023 CT BRAIN W Contrast COMPARISON: MR 03/04/2011. CT head 03/04/2011. IMPRESSION: No acute intracranial process. Remote history of RIGHT frontal craniotomy for underlying mass resection, with redemonstrated RIGHT frontal encephalomalacia and gliosis. No overt evidence of disease progression or recurrence on CT, however this is better evaluated with MR brain without and with contrast. MRI Report MRI BRAIN WO IVCON Exam End: 02/28/2024 2:16 PM (Final result) Narrative: * * *Final Report* * * DATE OF EXAM: Feb 28 2024 2:16PM QBM 0294 - MRI BRAIN WO IVCON / PROCEDURE REASON: multiple diagnoses * * * * Physician Interpretation * * * * EXAMINATION: MRI BRAIN WO IVCON CLINICAL HISTORY: A 59-year-old female with past medical history of anaplastic astrocytoma. Status post resection. Probable previous radiation treatments. Unknown chemotherapy study. TECHNIQUE: Routine noncontrast MRI protocol including diffusion images. MR imaging was performed without IV contrast due to patient's concern of contrast reaction and unclear history of severe contrast reaction to gadolinium. The ordering provider was notified verbally by Dr. Cuellar, neuroradiologist. MQ: [id number] COMPARISON: CT brain 12/25/2023 and MRA brain 03/04/2011 RESULT: Acute Change: There is no evidence of restricted diffusion to suggest an acute infarct. Postoperative changes: Redemonstrated postsurgical changes from remote right frontal craniotomy for underlying mass resection. Large area of encephalomalacia and gliosis involving the right frontal lobe. Resultant ex vacuo dilatation of the right frontal horn. Currently, there is no discrete mass effect within limitation of noncontrast study. Hemorrhage: A few punctate foci of hemosiderin staining in the right frontal lobe adjacent to the resection cavity likely secondary to postoperative blood products. There is noted a few scattered punctate remote microhemorrhages in the supratentorial brain parenchyma. Mass Lesion/ Mass Effect: No evidence of an intracranial mass or extra-axial fluid collection. No significant mass effect. Chronic Change: Scattered punctate foci of increased T2 and FLAIR signal are noted in the supratentorial white matter which is a nonspecific finding, but likely represents minimal chronic microvascular ischemia. Small area of T2/FLAIR hyperintensity in the left periventricular and left frontal subcortical white matter likely secondary to chronic ischemic changes. Remote lacunar infarct in the left thalamus. Parenchyma: There is moderate generalized parenchymal volume loss. The brain parenchyma is otherwise within normal limits of signal intensity and morphology. Ventricles: Ventriculomegaly corresponds to the degree of parenchymal volume loss. Exvacuo dilatation of the right frontal horn Skull Base: Hypothalamic and pituitary region are grossly normal. Craniocervical junction is normal. No significant marrow replacement process. Vasculature: Major intracranial arterial structures, and dural venous sinuses show typical flow void, suggesting patency by spin echo criteria. Other: The visualized paranasal sinuses and mastoid air cells are clear. The orbits and extracranial soft tissues are unremarkable. Impression: IMPRESSION: * Postsurgical changes from previous right frontal craniotomy for resection of right frontal mass lesion. Large area of encephalomalacia and gliosis within the right frontal lobe consistent with sequela of posttreatment changes. Currently, there is no discrete mass effect separable from postsurgical changes versus residual/recurrent disease within limitation of noncontrast study. * No acute intracranial abnormality. Age advanced moderate parenchymal volume loss. Laundry Aide: PSCB Transcribe Date/Time: Feb 28 2024 2:24P Dictated by : LEONORA CUELLAR MD This examination was interpreted and the report reviewed and electronically signed by: LEONORA CUELLAR MD on Feb 28 2024 2:37PM EST I reviewed the MRIs, with the patient and her sister. I will ask neuroradiology, to formally comment whether there is any significant change between the MRI from February for 2023 when compared to the MRI from 2010. Assessment & Plan Mrs. Carvajal, is a 58 YO RHF, per records, the patient had back on 04/30/1992 Surgery: For a right frontal lobe tumor resection at [facility] ([id number]). 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 Per the records clear neurosurgeon is Dashawn Montelongo MD [facility]. Her sister confirmed today, that per her own recollection the patient ONLY HAD RADIATION AND NEVER HAD CHEMO. However on some [facility] Notes it says - patient had chemo-radiation. She had an MRI on February 28, 2024, that shows to my own perhaps some increased confluence she and the hyperintense changes seen on FLAIR images. Unfortunately this MRI was done without contrast. This is because the patient said while she was at the MR scanner she she told the MR staff, that she is allergic to MRI contrast. The reading radiologist Dr. Cuellar, actually called me personally, regarding this concern about that the patient is allergic to MRI contrast. Hence, under the circumstances, we decided not to give contrast, because this was not clear and could not confirm whether she is or she is not allergic to MRI contrast. 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 The patient acknowledges also that she has memory problems. Her sister today, February 28, 2024, confirmed that she is allergic to CT contras, which is documented in the epic chart, but she is not aware that she is allergic to MRI contrast. She has had MRIs with contrast, which is evident as she had an MRI with gadolinium contrast, in 2010. In view of the above, and because she is now quite unclear whether she is allergic or not to MRI contrast or gadolinium, in discussion with the patient and her sister who is her MPOA, we will premedicate the patient, as if she were to have an allergic to gadolinium. They verbalized understanding of the potential risks, benefits of having an MRI with contrast. MRI with contrast could identify changes, that an MRI without contrast could not. If there is development of enhancement, this could change the way we will manage the patient as contrast-enhancement, cold represent, that the tumor is progressing or transforming to a higher grade and may require treatments. We also discussed with the patient, that although there is probably some more confluency of the FLAIR changes on the MRI from February for 2023, when compared to the MRI from 2010, between 2010, to 02/2024, as far as the family know and per the records, the patient has not had an MRI in the interim. Hence the changes that we see on the MRI from February 2024, may not necessarily represent progression. I think what is important, is to make sure that we will not overtreat the patient, if there is no progression. The only way to know, will be time, that is, as the patient will have follow-up images in the future, we could see whether there are any changes in the next few months to see whether the changes that we see in the MRI from February 2024, her baseline, or whether there is progressive disease. Furthermore, the patient has been clinically stable overall for the past few years. However her cognition has declined according to her sister too. So at the end, I have decided, with the acknowledgment of the potential benefits and risk, to do an MRI in 3 months time, with and without contrast, with premedication to prevent potential allergic reaction. Depending on those results, we will define whether anything else needs to be done, particularly if there is no progression then we can continue only clinical and imaging surveillance, but if there is progression, then we will define whether the patient requires treatments. The patient and her sister who is the MPOA, agreed with this plan. PLAN: 1-Astrocytoma, WHO grade 3. -Obtain reliable records of her brain tumor history from [facility]. -Obtain, the actual pathology, from [facility] if possible, for neuro pathology review at [facility]. -MRI brain w and w/o + perfusion in 3 months time. MRI to be done at [facility]. -Premedications, with the pheniramine and prednisone to prevent a potential allergic reaction to gadolinium contrast for MRI. -Visit clinic the same day of the MR of the MRI is to be done at . -Family and preferably MPOA to attend at next appointment as well. -I have asked neuroradiology, to formally enter a note, in the MRI report whether there is any change, between the MRI from February 2024, in comparison to the MRI from 2010. 2-Referral to neuropsychology for assessment on cognition. DONE. Patient seen by Dr. Bindu Burt on 02/13/2024. -Referral, to [facility] for assessment, regarding whether there is an underlying primary dementia syndrome. 3-PCP: To continue general medical care by PCP, Leela Escoto DO 4-History of Stroke: Left Vertebral artery occlusion -the question is whether her stroke was from accelerated atherosclerosis as she had radiation treatments for her brain tumor. I will ask the patient to have an MR angiogram of the head and neck NON CONTRAST - TIME OF FLIGHT (to minimize contrast exposure) to re-assess the vasculature. I will also refer her to Stroke Clinic for expert re-evaluation of stroke risk and longitudinal follow up. 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 As the patient has difficulty with gait - I will ask her to have a follow up C-spine MRI to assess whether there are any new spinal canal and or spinal cord issues which may also explain her gait difficulty I will refer her to Spine medicine. -X-rays of the cervical spine - extension and flexion. ORDER: Associate Signed Orders Orders Signed This Visit (2) diphenhydrAMINE HCL 50 mg tablet Medication, to prevent allergic reaction, to MR contrast (gadolinium]. Take 50 mg, 1 (ONE) hour prior to MRI Normal, Disp-1 tablet, R-0 Dx: 1. Allergy to intravenous contrast media 2. Anaplastic astrocytoma (HCC) 3. Mild cognitive impairment 4. Cognitive decline predniSONE (DELTASONE) 50 mg Take this medication, every 6 hours, for 3 doses for prevention of contrast MR (gadolinium] allergy. Take 50 mg, 13 hours, then 7 hours, then 1 hour, prior to the MRI Normal, Disp-3 tablet, R-0 Dx: 1. Allergy to intravenous contrast media 2. Anaplastic astrocytoma (HCC) 3. Mild cognitive impairment 4. Cognitive decline CONSULT TO NEUROLOGY [facility] Routine, Dx: 1. Allergy to intravenous contrast media 2. Anaplastic astrocytoma (HCC) 3. Mild cognitive impairment 4. Cognitive decline 5. Occlusion and stenosis of unspecified carotid artery 6. Pathological fracture, other site, initial encounter for fracture 7. Injury of cervical spinal cord, sequela (HCC) 8. Quadriplegia (HCC) CONSULT TO [facility]UROLOGY [facility] (D[facility]) Routine, Dx: 1. Allergy to intravenous contrast media 2. Anaplastic astrocytoma (HCC) 3. Mild cognitive impairment 4. Cognitive decline 5. Occlusion and stenosis of unspecified carotid artery 6. Pathological fracture, other site, initial encounter for fracture 7. Injury of cervical spinal cord, sequela (HCC) 8. Quadriplegia (HCC) CONSULT TO [facility] Routine, Dx: 1. Allergy to intravenous contrast media 2. Anaplastic astrocytoma (HCC) 3. Mild cognitive impairment 4. Cognitive decline 5. Occlusion and stenosis of unspecified carotid artery 6. Pathological fracture, other site, initial encounter for fracture 7. Injury of cervical spinal cord, sequela (HCC) 8. Quadriplegia (HCC) MRA BRAIN WO IVCON Routine MRA CAROTID WO IVCON Routine MRI CERVICAL SPINE WO/W IVCON Routine XR CERVICAL 2V FLEX/EXT Routine In the end the patient and family verbalized understanding of the above, they had questions which I believe I answered to their satisfaction and agreed with these recommendations and had no further questions or concerns for the moment, but I encourage them to call the [facility] with any questions or concerns. I spent a total of 40 minutes on the date of the service which included preparing to see the patient, at least 50% of [id number] patient care, completing clinical documentation, obtaining and/or reviewing separately obtained history, performing a medically appropriate examination, counseling and educating the patient/family/caregiver, ordering medications, tests, or procedures, communicating with other HCPs (not separately reported), independently interpreting results (not separately reported), communicating results to the patient/family/caregiver and care coordination (not separately reported). Mini Whyte MD [facility] [place] [address] documented in this encounter [facility] 02-28-2024 Nurse Note Additional intake questions: Has the patient had fever, nausea, vomiting, diarrhea, constipation, fatigue for > 1 week? No Does the patient have a decreased appetite? No Does patient want to see a Liquor Bridge Operator Helper? No (yes to any of above refer patient to schedulers for dietitian appointment) ) Does patient have any new or increased numbness or tingling of extremities? No Is patient interested in fertility information? No Does patient need any prescription refills? No Does patient have an advanced directive in place? No, Patient referred to [facility] 02-28-2024 Nurse Note Additional intake questions: Has the patient had fever, nausea, vomiting, diarrhea, constipation, fatigue for > 1 week? No Does the patient have a decreased appetite? No Does patient want to see a Liquor Bridge Operator Helper? No (yes to any of above refer patient to schedulers for dietitian appointment) ) Does patient have any new or increased numbness or tingling of extremities? No Is patient interested in fertility information? No Does patient need any prescription refills? No Does patient have an advanced directive in place? No, Patient referred to [facility] documented in this encounter [facility] 02-28-2024 Note HNO ID: [id number] Author: JR GALLEGO RN Service: Radiology Author Type: Registered Nurse Type: Progress Notes Filed: 02/28/2024 14:47 Note Text: RADIOLOGY SERVICE PROGRESS NOTE DATE OF SERVICE: February 28, 2024 TIME OF SERVICE: 1420 EVENT: Pt arrived for scan with contrast. When this RN was speaking with patient before IV placement Pt reported IV contrast allergy. Confirmed with pt that she has an iodine allergy documented and pt agreed. Asked pt if she had any issue with MRI contrast dye and patient said yes. Explained to patient that they are two different types of dye. Pt stated she didn't feel comfortable receiving dye. Dr. Cuellar (radiologist) called to talk with patient. After Dr. Cuellar spoke with patient patient continued to state unease with receiving contrast. Dr. Cuellar reached out to ordering provider, Dr. Whyte, and they decided to do a scan without contrast. This RN educated patient that if she were to need a scan with contrast in the future that she would need to premedicate. Brain wo scan completed. Pt's next appointment had been notified by other staff that patient would be running late due to the change in order. ADDITIONAL EVENT DETAILS: N/A SIGNATURE: Jr Gallego RN PATIENT NAME: Dior Carvajal DATE: February 28, 2024 TIME: 2:20 PM PAGER/CONTACT #: [facility] 02-28-2024 History of Present illness Narrative RADIOLOGY SERVICE PROGRESS NOTE DATE OF SERVICE: February 28, 2024 TIME OF SERVICE: 1420 EVENT: Pt arrived for scan with contrast. When this RN was speaking with patient before IV placement Pt reported IV contrast allergy. Confirmed with pt that she has an iodine allergy documented and pt agreed. Asked pt if she had any issue with MRI contrast dye and patient said yes. Explained to patient that they are two different types of dye. Pt stated she didn't feel comfortable receiving dye. Dr. Cuellar (radiologist) called to talk with patient. After Dr. Cuellar spoke with patient patient continued to state unease with receiving contrast. Dr. Cuellar reached out to ordering provider, Dr. Whyte, and they decided to do a scan without contrast. This RN educated patient that if she were to need a scan with contrast in the future that she would need to premedicate. Brain wo scan completed. Pt's next appointment had been notified by other staff that patient would be running late due to the change in order. ADDITIONAL EVENT DETAILS: N/A SIGNATURE: Jr Gallego RN PATIENT NAME: Dior Carvajal DATE: February 28, 2024 TIME: 2:20 PM PAGER/CONTACT #: Radiology Service Progress Note PATIENT NAME: Dior Carvajal DATE OF SERVICE: February 28, 2024 TIME: 2:00 PM PATIENT IDENTITY VERIFICATION COMPLETED USING TWO (2) IDENTIFIERS: Name and Date of confirmed by patient verbally and Name and Date of confirmed by identification band. FALL SCREENING: Has the patient had 2 falls in the last year or 1 fall with injury or currently using an Ambulatory Assistive Device (Walker, Cane, Wheelchair, Crutches, etc.)? Yes, Patient High Risk for Falls What interventions were put in place to prevent falls during this visit? Yellow Falls Risk Wristband Applied, Instructed Patient to Call for Help if Needed, Offered Assistance with Transfers/Clothing, Instructed Patient to Remain Seated (Not on Exam Table) Until Exam, Increased Observations by Caregivers, and Patient Refused Interventions/Assistance PATIENT GENDER DATA: Female. status: : No status: NO. PATIENT RELEVANT IMPLANT DATA REVIEWED: Yes PATIENT PRESENTS WITH AN IMPLANTABLE OR ATTACHED STEAMFITTER: No RADIOLOGY DEPARTMENT: MR; Exam(s) Completed: Head: Routine Brain PERIPHERAL IV DATA: Not applicable SIGNED BY: RACHELLE Garcia February 28, 2024 2:00 PM documented in this encounter [facility] 02-28-2024 Note HNO ID: [id number] Author: YENNIFER NOVA MRI Tech Service: Radiology Author Type: Technologist Type: Progress Notes Filed: 02/28/2024 14:01 Note Text: Radiology Service Progress Note PATIENT NAME: Dior Carvajal DATE OF SERVICE: February 28, 2024 TIME: 2:00 PM PATIENT IDENTITY VERIFICATION COMPLETED USING TWO (2) IDENTIFIERS: Name and Date of confirmed by patient verbally and Name and Date of confirmed by identification band. FALL SCREENING: Has the patient had 2 falls in the last year or 1 fall with injury or currently using an Ambulatory Assistive Device (Walker, Cane, Wheelchair, Crutches, etc.)? Yes, Patient High Risk for Falls What interventions were put in place to prevent falls during this visit? Yellow Falls Risk Wristband Applied, Instructed Patient to Call for Help if Needed, Offered Assistance with Transfers/Clothing, Instructed Patient to Remain Seated (Not on Exam Table) Until Exam, Increased Observations by Caregivers, and Patient Refused Interventions/Assistance PATIENT GENDER DATA: Female. status: : No status: NO. PATIENT RELEVANT IMPLANT DATA REVIEWED: Yes PATIENT PRESENTS WITH AN IMPLANTABLE OR ATTACHED STEAMFITTER: No RADIOLOGY DEPARTMENT: MR; Exam(s) Completed: Head: Routine Brain PERIPHERAL IV DATA: Not applicable SIGNED BY: Yennifer Nova publicity person February 28, 2024 2:00 PM [facility] 02-13-2024 Note HNO ID: [id number] Author: BINDU BURT, PhD Service: ? Author Type: Psychologist Type: Progress Notes Filed: 02/29/2024 16:56 Note Text: [facility] Department of Neurology Section of Neuropsychology Neuropsychological Evaluation Report CONFIDENTIAL Patient: Dior Carvajal Referred by: Mini Whyte Date of : 1965 Date of Evaluation: 02/13/2024 SUMMARY/IMPRESSIONS: The patient is a 59-year-old, White, female, referred for a neuropsychological evaluation by Mini Whyte MD in the [facility]. 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 Of note, the patient reported experiencing intermittent blurry vision, thus visually based tests were minimized. With this in mind, the neuropsychological profile reveals globally impaired cognitive functioning across all domains assessed with the exception of simple auditory attention. She does not benefit from repetition when learning an unorganized word list; although she retains the limited information over the delay, she does not have any added benefit from recognition cues. These results occur within the context of borderline to low average estimates of premorbid functioning. Although she reports elevated symptoms of depression and anxiety on self-report questionnaires, this is markedly inconsistent with self-report and raises concern that she had difficulties understanding some of the written questions. This table should not be presented separate from this Neuropsychological Evaluation Report. Superior High Average Average Low Average Simple x Mildly Low Moderately Low Simple Verbal reasoning W W W Naming Extremely Low Complex Complex Fluencies x Premorbid Estimate Attention Processing Speed Executive Function Learning Recall Recognition Language Function Visuoperceptual Function MEMORY S = Stories; W = Words; F = Figures Values in fox indicates WNL WNL = within normal limits; BE = below expectation Overall, the patient demonstrates deficits across all cognitive domains. Given unclear medical history, pending brain MRI, and her global pattern of impairment, establishing the etiology of her deficits is difficult. However, contributions likely include influences from her neurovascular history, cardiovascular risk factors, her tumor and surgical history, as well as pain and daily fatigue. RECOMMENDATIONS: It is unclear whether the patient is managing her finances on her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 tumor at [facility] Need prior history/resection information Patient expectations: New Consult Tumor Specifics: Location: brain Pathology: Need final pathology report Previous Evaluations: 12/25/2023 CT BRAIN Impression IMPRESSION: No acute intracranial process. Remote history of RIGHT frontal craniotomy for underlying mass resection, with redemonstrated RIGHT frontal encephalomalacia and gliosis. No overt evidence of disease progression or recurrence on CT, however this is better evaluated with MR brain without and with contrast. Laundry Aide: PSCB Transcribe Date/Time: Dec 25 2023 1:22P Dictated by : KATTY DAI MD This examination was interpreted and the report reviewed and electronically signed by: KATTY DAI MD on Dec 25 2023 1:30PM EST Results-Findings * * *Final Report* * * DATE OF EXAM: Dec 25 2023 12:25PM [facility] 0005 - CT BRAIN W IVCON / PROCEDURE REASON: 285.841, R51.9 * * * * Physician Interpretation * * * * EXAMINATION: CT BRAIN W IVCON CLINICAL HISTORY: 58-year-old female, remote history of brain tumor resection. TECHNIQUE: Serial axial images with IV contrast were obtained from the vertex to the foramen magnum. MQ: CTBWOW_1 Contrast: 100 mL Omnip[address] Radiation dose: Integrated Dose-Length Product (DLP) for this visit = 782 mGy*cm CT Dose Reduction Employed: Iterative recon COMPARISON: MR 03/04/2011. CT head 03/04/2011. RESULT: Localizer images: No additional findings. Acute change: No evidence of an acute intracranial process. Hemorrhage: There is no clear evidence of acute intracranial hemorrhage with the constraints of the contrast enhanced acquisition. ECASS hemorrhagic transformation score: Not Applicable Mass Lesion / Mass Effect: RIGHT frontal craniotomy for underlying mass resection. There is underlying encephalomalacia and gliosis in the RIGHT frontal lobe. There is no evidence of an intracranial mass or extraaxial fluid collection. No abnormal parenchymal enhancement is appreciated. No significant mass effect. Chronic change: Additional scattered patchy foci of low attenuation are present within supratentorial white matter which is a nonspecific finding but likely represents mild microvascular ischemia. Parenchyma: There is mild generalized volume loss. Ventricles: Ventricular enlargement concordant with the degree of parenchymal volume loss. There is ex vacuo prominence of the frontal horn of the RIGHT lateral ventricle. Paranasal sinuses and skull base: Heterogeneous appearance of the frontoparietal calvarium is not significant changed from 2010. The visualized paranasal sinuses are clear. The skull base and imaged soft tissues are unremarkable. Umm Nuñez APRN.FIBERGLASS DOWEL DRAWING OPERATOR January 08, 2024 [facility] 01-08-2024 Miscellaneous Notes Dior had resection and radiation treatment at [facility] - will request pathology and office notes. ___ Patient: Dior Carvajal Address: Dior Carvajal [id number] [place] [address] Per Triage: Dior Carvajal is a 58 year old female: 27 years old - resection and radiation of brain tumor at [facility] Need prior history/resection information Patient expectations: New Consult Tumor Specifics: Location: brain Pathology: Need final pathology report Previous Evaluations: 12/25/2023 CT BRAIN Impression IMPRESSION: No acute intracranial process. Remote history of RIGHT frontal craniotomy for underlying mass resection, with redemonstrated RIGHT frontal encephalomalacia and gliosis. No overt evidence of disease progression or recurrence on CT, however this is better evaluated with MR brain without and with contrast. Laundry Aide: PSCB Transcribe Date/Time: Dec 25 2023 1:22P Dictated by : KATTY DAI MD This examination was interpreted and the report reviewed and electronically signed by: KATTY DAI MD on Dec 25 2023 1:30PM EST Results-Findings * * *Final Report* * * DATE OF EXAM: Dec 25 2023 12:25PM [facility] 0005 - CT BRAIN W IVCON / PROCEDURE REASON: 285.841, R51.9 * * * * Physician Interpretation * * * * EXAMINATION: CT BRAIN W IVCON CLINICAL HISTORY: 58-year-old female, remote history of brain tumor resection. TECHNIQUE: Serial axial images with IV contrast were obtained from the vertex to the foramen magnum. MQ: CTBWOW_1 Contrast: 100 mL Omnipaque [address] Radiation dose: Integrated Dose-Length Product (DLP) for this visit = 782 mGy*cm CT Dose Reduction Employed: Iterative recon COMPARISON: MR 03/04/2011. CT head 03/04/2011. RESULT: Localizer images: No additional findings. Acute change: No evidence of an acute intracranial process. Hemorrhage: There is no clear evidence of acute intracranial hemorrhage with the constraints of the contrast enhanced acquisition. ECASS hemorrhagic transformation score: Not Applicable Mass Lesion / Mass Effect: RIGHT frontal craniotomy for underlying mass resection. There is underlying encephalomalacia and gliosis in the RIGHT frontal lobe. There is no evidence of an intracranial mass or extraaxial fluid collection. No abnormal parenchymal enhancement is appreciated. No significant mass effect. Chronic change: Additional scattered patchy foci of low attenuation are present within supratentorial white matter which is a nonspecific finding but likely represents mild microvascular ischemia. Parenchyma: There is mild generalized volume loss. Ventricles: Ventricular enlargement concordant with the degree of parenchymal volume loss. There is ex vacuo prominence of the frontal horn of the RIGHT lateral ventricle. Paranasal sinuses and skull base: Heterogeneous appearance of the frontoparietal calvarium is not significant changed from 2010. The visualized paranasal sinuses are clear. The skull base and imaged soft tissues are unremarkable. Umm Nuñez APRN.CNP January 08, 2024 Images in Epic 1. Director Of Business Applications: Who is requesting this appointment?patient and patient's caregiver & imaging scheduler Nieves [phone] 2. Director Of Business Applications: Please indicate the best contact information for our team to reach you with any questions/concerns we may have? 3. Director Of Business Applications: What is your diagnosis? Other 4. Director Of Business Applications: Have you ever been seen at our center before? If yes, by whom? N/A (If the patient has been seen in our department before, please bypass the triage process and send a message to the critical care clinical nurse specialist of the provider that the patient saw in the past. (Patient being referred to us with the same dx)). 5. Director Of Business Applications: Is there a specific doctor you were referred to? N/A 6. Director Of Business Applications: What facility and/or hospital have you been seen at? [facility] Name of facility/name of provider where patient was treated. N/a 7. Director Of Business Applications: For this appointment, we will need to request a few records from you. This will help our triage team be able to select the best provider for your treatment. a. Please provide: Most recent MRI- spine/Brain (Director Of Business Applications will check CareEverywhere for records). 8. Director Of Business Applications: Where was your last imaging completed:December 2023(Ideally should be completed within the last six months). 9. Director Of Business Applications: Have you had any surgeries pertaining to this appointment? No If yes, please obtain pathology report. 10. Director Of Business Applications: Please allow up to 48-72 hours for our triage team to review your records. Once they reviewed your records, we will be in contact with you. a. Was the patient made aware of the turnaround time? Yes 11. Director Of Business Applications: Our department offers virtual visits depending on the provider you are recommended to see and the state that you live in. If able to schedule, would you like a virtual visit?Yes a. If answered yes: Does the patient have [employer] access: No If not, then imaging scheduler will walk patient through getting access to [employer]. b. If no, Are you interested in In Person (If not, please indicate patient refused to schedule at this time and the reason to not proceed with scheduling). 12. Sent to triage pool. (Waiting approval). documented in this encounter [facility] 01-08-2024 Telephone encounter Note Images in Epic 1. Director Of Business Applications: Who is requesting this appointment?patient and patient's caregiver & imaging scheduler Nieves [phone] 2. Director Of Business Applications: Please indicate the best contact information for our team to reach you with any questions/concerns we may have? 3. Director Of Business Applications: What is your diagnosis? Other 4. Director Of Business Applications: Have you ever been seen at our center before? If yes, by whom? N/A (If the patient has been seen in our department before, please bypass the triage process and send a message to the critical care clinical nurse specialist of the provider that the patient saw in the past. (Patient being referred to us with the same dx)). 5. Director Of Business Applications: Is there a specific doctor you were referred to? N/A 6. Director Of Business Applications: What facility and/or hospital have you been seen at? [facility] Name of facility/name of provider where patient was treated. N/a 7. Director Of Business Applications: For this appointment, we will need to request a few records from you. This will help our triage team be able to select the best provider for your treatment. a. Please provide: Most recent MRI- spine/Brain (Director Of Business Applications will check CareEverywhere for records). 8. Director Of Business Applications: Where was your last imaging completed:December 2023(Ideally should be completed within the last six months). 9. Director Of Business Applications: Have you had any surgeries pertaining to this appointment? No If yes, please obtain pathology report. 10. Director Of Business Applications: Please allow up to 48-72 hours for our triage team to review your records. Once they reviewed your records, we will be in contact with you. a. Was the patient made aware of the turnaround time? Yes 11. Director Of Business Applications: Our department offers virtual visits depending on the provider you are recommended to see and the state that you live in. If able to schedule, would you like a virtual visit?Yes a. If answered yes: Does the patient have MyChart access: No If not, then imaging scheduler will walk patient through getting access to MyChart. b. If no, Are you interested in In Person (If not, please indicate patient refused to schedule at this time and the reason to not proceed with scheduling). 12. Sent to triage pool. (Waiting approval). [facility] 01-01-2024 Note HNO ID: [id number] Author: ZORA FLORES APRN.FIBERGLASS DOWEL DRAWING OPERATOR Service: ? Author Type: Nurse Practitioner Type: Progress Notes Filed: 01/01/2024 09:38 Note Text: Connected Care Unit Progress Note Facility: [facility] Level of Care: Long-term SNF Attending: Macarena Bain M.D. Service Date: 01/01/2024 Reason For Visit: for a seen for chronic condition management and medical complexity. 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 Has hx recurrent uti. Currently no fever or hematuria. Review of System No reports of or complaints of chest pain, palpitations, shortness of breath, cough, change in bowel habit, abdominal pain, nausea or vomiting. No fevers. No falls. Family/Social History: Unchanged. Medications: see current medication list in [facility] chart, reviewed (Medications in EPIC may not accurate, please see update in [facility] chart) Objective Data: Vital signs reviewed with nurse Visit made with required PPE per facility policy General: Alert, no distress, comfortable, in bed Skin: warm dry no rash seen HEENT: no exudate, lymphadenopathy or masses Chest: good resp effort no distress, -cough,-sob Abdomen: no distention or masses +bs soft Extremities: non pitting edema, MSK: patient able to moves limbs actively Neuro: AANDo 2 Psy: appropriate mood and affect Lab/Diagnosis: I have reviewed this patient's medications and treatment plan, as available, as well as most recent labwork available for review. No off label use of medications. Assessment and Plan: ASSESSMENT/PLAN: 1. Foul smelling urine - ICD9: 791.9, ICD10: R82.90 (primary diagnosis) Urine culture monitor for change in symptoms 2. Recurrent UTI - ICD9: 599.0, ICD10: N39.0 Encourage fluids and toilet schedule Zora Flores APRN.FIBERGLASS DOWEL DRAWING OPERATOR We will continue to monitor for overall comfort, function and safety. Call for changes in condition. Electronically signed by Zora Flores APRN.CNP January 01, 2024 9:34 AM [facility] 01-01-2024 History of Present illness Narrative Images from the original note were not included. Connected Care Unit Progress Note Facility: [facility] Level of Care: Long-term SNF Attending: Macarena Bain M.D. Service Date: 01/01/2024 Reason For Visit: for a seen for chronic condition management and medical complexity. 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 Has hx recurrent uti. Currently no fever or hematuria. Review of System No reports of or complaints of chest pain, palpitations, shortness of breath, cough, change in bowel habit, abdominal pain, nausea or vomiting. No fevers. No falls. Family/Social History: Unchanged. Medications: see current medication list in [facility] chart, reviewed (Medications in EPIC may not accurate, please see update in [facility] chart) Objective Data: Vital signs reviewed with nurse Visit made with required PPE per facility policy General: Alert, no distress, comfortable, in bed Skin: warm dry no rash seen HEENT: no exudate, lymphadenopathy or masses Chest: good resp effort no distress, -cough,-sob Abdomen: no distention or masses +bs soft Extremities: non pitting edema, MSK: patient able to moves limbs actively Neuro: A&o 2 Psy: appropriate mood and affect Lab/Diagnosis: I have reviewed this patient's medications and treatment plan, as available, as well as most recent labwork available for review. No off label use of medications. Assessment and Plan: ASSESSMENT/PLAN: 1. Foul smelling urine - ICD9: 791.9, ICD10: R82.90 (primary diagnosis) Urine culture monitor for change in symptoms 2. Recurrent UTI - ICD9: 599.0, ICD10: N39.0 Encourage fluids and toilet schedule Zora Flores APRN.SHERYL We will continue to monitor for overall comfort, function and safety. Call for changes in condition. Electronically signed by Zora Flores APRN.CNP January 01, 2024 9:34 AM documented in this encounter [facility] 01-01-2024 History of Present illness Narrative [facility] NOTE NAME: DIOR CARVAJAL [facility] NO.: [id number] DATE OF SERVICE: 01/01/2024 ATTENDING PHYSICIAN: Macarena Bain MD [facility] Followup multiple medical chronic issues She is currently up in her room in a wheelchair, getting ready for her lunch. She is in good spirits. She has no complaints. She appears to be doing fairly well. Nursing reports no problems. She denies any shortness of breath or chest pain. MEDICATIONS: Reviewed. EXAMINATION: Afebrile, vital signs stable. HEENT: Intact. Lungs: Clear. Heart: Regular. Abdomen: Soft, nontender. Extremities with trace edema. IMPRESSION: 1. Depression-we will continue to monitor her mood and behavior. She is in good spirits at this time. Continue antidepressant therapy. 2. Hyperlipidemia-continue statin therapy. 3. Chronic cervical neck pain-she has no complaints at this time. 4. Degenerative osteoarthritis - no active flare-up. 5. Chronic constipation-she has no bowel complaints at this time. Maintain current course of therapy. DICTATED BY: MD PRASHANT Singleton/JOHNNIE JOB# [id number] [facility] documented in this encounter [facility] 01-01-2024 Note HNO ID: [id number] Author: MACARENA BAIN, ? Service: ? Author Type: Physician Type: Progress Notes Filed: 01/03/2024 07:42 Note Text: [facility] LONGTERM NOTE NAME: DIOR CARVAJAL [facility] NO.: [id number] DATE OF SERVICE: 01/01/2024 ATTENDING PHYSICIAN: Macarena Bain MD [facility] Followup multiple medical chronic issues She is currently up in her room in a wheelchair, getting ready for her lunch. She is in good spirits. She has no complaints. She appears to be doing fairly well. Nursing reports no problems. She denies any shortness of breath or chest pain. MEDICATIONS: Reviewed. EXAMINATION: Afebrile, vital signs stable. HEENT: Intact. Lungs: Clear. Heart: Regular. Abdomen: Soft, nontender. Extremities with trace edema. IMPRESSION: 1. Depression-we will continue to monitor her mood and behavior. She is in good spirits at this time. Continue antidepressant therapy. 2. Hyperlipidemia-continue statin therapy. 3. Chronic cervical neck pain-she has no complaints at this time. 4. Degenerative osteoarthritis - no active flare-up. 5. Chronic constipation-she has no bowel complaints at this time. Maintain current course of therapy. DICTATED BY: MD PRASHANT Singleton/JOHNNIE JOB# [id number] [facility] 12-25-2023 History of Present illness Narrative Radiology Service Progress Note DATE OF SERVICE: December 25, 2023 TIME: 11:34 AM PATIENT WEIGHT: 176 LBS PATIENT IDENTITY VERIFICATION COMPLETED USING TWO (2) STANDARD IDENTIFIERS: Name and Date of confirmed by patient verbally. FALL SCREENING: Has the patient had 2 falls in the last year or 1 fall with injury or currently using an Ambulatory Assistive Device (Walker, Cane, Wheelchair, Crutches, etc.)? No PATIENT GENDER DATA: Female. status: : No status: NO. ALLERGIES: Reviewed and unchanged CONTRAST ALLERGY: Yes STANDARD PREMEDICATION: Prednisone 50mg Dose 1 taken at 2300, Dose 2 at 0700, and Dose 3 at 1050 Benadryl 50mg 1050 ALTERNATIVE PREMEDICATION: na EXAM: CT -CONTRAST INDUCED NEPHROPATHY RISK FACTORS: Patient age > 60 years CREATININE: Creatinine Date Value Ref Range Status 03/20/2022 0.49 (L) 0.58 - 0.96 mg/dL Final 12/26/2021 0.54 (L) 0.58 - 0.96 mg/dL Final 06/23/2021 0.54 (L) 0.58 - 0.96 mg/dL Final Estimated Glomerular Filtration Rate Date Value Ref Range Status 03/20/2022 109 >=60 mL/min/1.73m Final Comment: Estimated Glomerular Filtration Rate (eGFR) is calculated using the 2020 CKD-EPI creatinine equation. This equation utilizes serum creatinine, sex, and age as parameters. The creatinine assay has traceable calibration to isotope dilution-mass spectrometry. Refer to KDIGO guidelines for clinical interpretation. In patients with unstable renal function, e.g. those with acute kidney injury, the eGFR may not accurately reflect actual GFR. eGFR- Date Value Ref Range Status 05/31/2020 >60 Final P.O.C.T. RESULTS: POC done: Yes, See Lab Tab December 25, 2023 TREATMENT: N/A and No Hydration needed. IV SITE: Ambulatory: A peripheral IV was started in the Left antecubital site with a Angio cath: 22 gauge. and A Saline lock was inserted per protocol IV SITE APPEARANCE: Clean,Dry and Intact SIGNATURE: Johanny Quinn RN PATIENT NAME: Dior Carvajal DATE: December 25, 2023 TIME: 11:34 AM Radiology Service Progress Note DATE OF SERVICE: December 25, 2023 TIME: 12:09 PM PATIENT IDENTITY VERIFICATION COMPLETED USING TWO (2) STANDARD IDENTIFIERS: Name and Date of confirmed by patient verbally and Name and Date of confirmed by identification band. FALL SCREENING: Has the patient had 2 falls in the last year or 1 fall with injury or currently using an Ambulatory Assistive Device (Walker, Cane, Wheelchair, Crutches, etc.)? Yes, Patient High Risk for Falls What interventions were put in place to prevent falls during this visit? Yellow Falls Risk Wristband Applied and Increased Observations by Caregivers PATIENT GENDER DATA: Female. status: : No status: NO. PATIENT RELEVANT IMPLANT DATA REVIEWED: Yes PATIENT PRESENTS WITH AN IMPLANTABLE OR ATTACHED STEAMFITTER: No ALLERGIES: Reviewed and unchanged CONTRAST ALLERGY: YES Prednisone 50mg Dose 1 taken at 2300, Dose 2 at 0700, and Dose 3 at 1050 Benadryl 50mg 1050 EXAM: CT -CONTRAST INDUCED NEPHROPATHY RISK FACTORS: Patient age > 60 years and Not applicable CREATININE: Creatinine Date Value Ref Range Status 03/20/2022 0.49 (L) 0.58 - 0.96 mg/dL Final 12/26/2021 0.54 (L) 0.58 - 0.96 mg/dL Final Creatinine (POCT) Date Value Ref Range Status 12/25/2023 0.60 0.6 - 1.3 mg/dL Final eGFR (POCT) Date Value Ref Range Status 12/25/2023 >60 mL/min/1.73 m2 Final eGFR- Date Value Ref Range Status 05/31/2020 >60 Final P.O.C.T. RESULTS: POC done: Yes, See Lab Tab December 25, 2023 TREATMENT: N/A PERIPHERAL IV DATA: Ambulatory: A peripheral IV was started in the Left antecubital site with a Angio cath: 22 gauge. RADIOLOGY DEPARTMENT: CT; Exam(s) Completed: Brain SIGNATURE: RT Manuel(R) PATIENT NAME: Dior Carvajal DATE: December 25, 2023 TIME: 12:09 PM documented in this encounter [facility] 12-25-2023 Note HNO ID: [id number] Author: JOHANNY QUINN RN Service: Nursing Author Type: Registered Nurse Type: Progress Notes Filed: 12/25/2023 12:02 Note Text: Radiology Service Progress Note DATE OF SERVICE: December 25, 2023 TIME: 11:34 AM PATIENT WEIGHT: 176 LBS PATIENT IDENTITY VERIFICATION COMPLETED USING TWO (2) STANDARD IDENTIFIERS: Name and Date of confirmed by patient verbally. FALL SCREENING: Has the patient had 2 falls in the last year or 1 fall with injury or currently using an Ambulatory Assistive Device (Walker, Cane, Wheelchair, Crutches, etc.)? No PATIENT GENDER DATA: Female. status: : No status: NO. ALLERGIES: Reviewed and unchanged CONTRAST ALLERGY: Yes STANDARD PREMEDICATION: Prednisone 50mg Dose 1 taken at 2300, Dose 2 at 0700, and Dose 3 at 1050 Benadryl 50mg 1050 ALTERNATIVE PREMEDICATION: na EXAM: CT -CONTRAST INDUCED NEPHROPATHY RISK FACTORS: Patient age > 60 years CREATININE: Creatinine Date Value Ref Range Status 03/20/2022 0.49 (L) 0.58 - 0.96 mg/dL Final 12/26/2021 0.54 (L) 0.58 - 0.96 mg/dL Final 06/23/2021 0.54 (L) 0.58 - 0.96 mg/dL Final Estimated Glomerular Filtration Rate Date Value Ref Range Status 03/20/2022 109 >=60 mL/min/1.73m? Final Comment: Estimated Glomerular Filtration Rate (eGFR) is calculated using the 2020 CKD-EPI creatinine equation. This equation utilizes serum creatinine, sex, and age as parameters. The creatinine assay has traceable calibration to isotope dilution-mass spectrometry. Refer to KDIGO guidelines for clinical interpretation. In patients with unstable renal function, e.g. those with acute kidney injury, the eGFR may not accurately reflect actual GFR. eGFR- Date Value Ref Range Status 05/31/2020 >60 Final P.O.C.T. RESULTS: POC done: Yes, See Lab Tab December 25, 2023 TREATMENT: N/A and No Hydration needed. IV SITE: Ambulatory: A peripheral IV was started in the Left antecubital site with a Angio cath: 22 gauge. and A Saline lock was inserted per protocol IV SITE APPEARANCE: Clean,Dry and Intact SIGNATURE: Johanny Quinn RN PATIENT NAME: Dior Carvajal DATE: December 25, 2023 TIME: 11:34 AM [facility] 12-25-2023 Note HNO ID: [id number] Author: JEFF JULES RT(R) Service: ? Author Type: Technologist Type: Progress Notes Filed: 12/25/2023 12:12 Note Text: Radiology Service Progress Note DATE OF SERVICE: December 25, 2023 TIME: 12:09 PM PATIENT IDENTITY VERIFICATION COMPLETED USING TWO (2) STANDARD IDENTIFIERS: Name and Date of confirmed by patient verbally and Name and Date of confirmed by identification band. FALL SCREENING: Has the patient had 2 falls in the last year or 1 fall with injury or currently using an Ambulatory Assistive Device (Walker, Cane, Wheelchair, Crutches, etc.)? Yes, Patient High Risk for Falls What interventions were put in place to prevent falls during this visit? Yellow Falls Risk Wristband Applied and Increased Observations by Caregivers PATIENT GENDER DATA: Female. status: : No status: NO. PATIENT RELEVANT IMPLANT DATA REVIEWED: Yes PATIENT PRESENTS WITH AN IMPLANTABLE OR ATTACHED STEAMFITTER: No ALLERGIES: Reviewed and unchanged CONTRAST ALLERGY: YES Prednisone 50mg Dose 1 taken at 2300, Dose 2 at 0700, and Dose 3 at 1050 Benadryl 50mg 1050 EXAM: CT -CONTRAST INDUCED NEPHROPATHY RISK FACTORS: Patient age > 60 years and Not applicable CREATININE: Creatinine Date Value Ref Range Status 03/20/2022 0.49 (L) 0.58 - 0.96 mg/dL Final 12/26/2021 0.54 (L) 0.58 - 0.96 mg/dL Final Creatinine (POCT) Date Value Ref Range Status 12/25/2023 0.60 0.6 - 1.3 mg/dL Final eGFR (POCT) Date Value Ref Range Status 12/25/2023 >60 mL/min/1.73 m2 Final eGFR- Date Value Ref Range Status 05/31/2020 >60 Final P.O.C.T. RESULTS: POC done: Yes, See Lab Tab December 25, 2023 TREATMENT: N/A PERIPHERAL IV DATA: Ambulatory: A peripheral IV was started in the Left antecubital site with a Angio cath: 22 gauge. RADIOLOGY DEPARTMENT: CT; Exam(s) Completed: Brain SIGNATURE: Jeff Jules RT(R) PATIENT NAME: Dior Carvajal DATE: December 25, 2023 TIME: 12:09 PM [facility] 12-24-2023 Telephone encounter Note Pt [facility] a detention. Chart states that she is allergic to contrast. Facility called and advised to give 50 mg of prednisone at 13, 7 and 1 hour before exam and 50 mg of benadryl 1 hour before scheduled test.RN state that she will facilitate these orders for [facility] policy. [facility] 12-24-2023 Miscellaneous Notes Pt lives at a detention. Chart states that she is allergic to contrast. Facility called and advised to give 50 mg of prednisone at 13, 7 and 1 hour before exam and 50 mg of benadryl 1 hour before scheduled test.RN state that she will facilitate these orders for [facility] policy. documented in this encounter [facility] 12-10-2023 History of Present illness Narrative Dior Carvajal : 1965 Correction: [facility] PCP: odell Date last seen: sheryl 12/06/2023 PAST MEDICAL HISTORY Diagnosis Date Abnormal gait Acute neutrophilia Atrophic vaginitis Chronic constipation Cobalamin deficiency Constipation Depressive disorder Dyslipidemia Essential hypertension Falls GERD (gastroesophageal reflux disease) Hip pain Incomplete emptying of bladder Insomnia Late effects of cerebrovascular disease Multiple joint pain Neck pain Nephrolithiasis Osteoarthritis of multiple joints knees, neck Pain in joint, pelvic region and thigh 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 Tobacco abuse Urinary incontinence, mixed Urinary retention Vitamin D deficiency Current Outpatient Medications Medication Sig traMADol (ULTRAM) 50 mg tablet Take 1 tablet by mouth two times a day for 180 days. atorvastatin (LIPITOR) 20 mg tablet Take 1 tablet by mouth once daily. omeprazole (PRILOSEC) 40 mg capsule Take 1 capsule by mouth once daily. mirabegron (MYRBETRIQ) 50 mg Tb24 Take 1 tablet by mouth once daily. conjugated estrogens (PREMARIN) vaginal cream Use 0.5 g vaginally two times a week. LINZESS 72 mcg capsule Take 1 capsule by mouth once daily. dicyclomine (BENTYL) 20 mg tablet Take 1 tablet by mouth w MEALS. ondansetron orally disintegrating (ZOFRAN ODT) 4 mg disintegrating tablet Take 1 tablet by mouth as needed. carvedilol (COREG) 3.125 mg tablet Take 1 tablet by mouth twice daily with meals. Multivitamin capsule Take 1 capsule by mouth once daily. aspirin 81 mg chewable tablet Take 1 tablet by mouth once daily. No current facility-administered medications for this visit. ALLERGIES Allergen Reactions Aleve [Naproxen] Hives, Itching Iodinated Contrast * Other: See Comments dyspnea Latex Other: See Comments blisters Methadone Unknown Subjective: Dior is a 58 year old female who is not diabetic. Presents today for evaluation and treatment of painful digital nail deformity as well as generalized foot care . Patient has been unable to provide self nail care due to the severe nature of deformity which causes pain and pressure and limits the patients abilty to wear shoe gear without pain. Patient is advised not to attempt self care. Class B Findings: Decrease or absence of hair growth, Skin texture (thin, shiny), and Nail changes (thickening) Objective: Each digital nail on the right 1 and the left 1 is elongated, thickened, ridged, & brittle. There is no surrounding cellulitis, deep incurvation, or evidence of bacterial infection. Class findings include normal pedal pulses, lack of digital pedal hair growth, the above noted nail changes, Lower Extremity Edema: no edema. Assessment: Symptomatic onychoDYStrophic digital nails toes 1 Rt 1 Lt. Examination of individual toenails: R5 is normal. R4 is normal. R3 is normal. R2 is normal. R1 is brittle, discolored, dystrophic, elongated, painful, L1 is brittle, discolored, dystrophic, elongated, painful, . L2 is normal. L3 is normal. L4 is normal. L5 is normal. Plan: The offending nail margins were mechanically and electrically debrided to the level of normal underlying nail bed with good relief obtained as evidenced by pain free palpation of the digits. The patient will be followed to maintain the length and thickness of their nails as best as possible. Patient relates painful treatment. We will see her back on an as needed basis or sooner should problems arise. Recommended: No Anti Fungal Nail dystrophy (primary encounter diagnosis) Aspirin long-term use Hayder Bone DPM documented in this encounter [facility] 12-10-2023 Instructions Hayder Bone DPM - 12/10/2023 1:28 PM EDT Pt not to attempt self care due to high risk. documented in this encounter [facility] 12-06-2023 Note HNO ID: [id number] Author: ZORA FLORES APRN.FIBERGLASS DOWEL DRAWING OPERATOR Service: ? Author Type: Nurse Practitioner Type: Progress Notes Filed: 12/06/2023 08:57 Note Text: Connected Care Unit Progress Note Facility: [facility] Level of Care: Long-term SNF Attending: Macarena Bain M.D. Service Date: 12/06/2023 Reason For Visit: for a seen for chronic condition management and medical complexity. Past Medical History: Past Medical Hx: PAST MEDICAL HISTORY No date: Abnormal gait No date: Acute neutrophilia No date: Atrophic vaginitis No date: Chronic constipation No date: Cobalamin deficiency No date: Constipation No date: Depressive disorder No date: Dyslipidemia No date: Essential hypertension No date: Falls No date: GERD (gastroesophageal reflux disease) No date: Hip pain No date: Incomplete emptying of bladder No date: Insomnia No date: Late effects of cerebrovascular disease No date: Multiple joint pain No date: Neck pain No date: Nephrolithiasis No date: Osteoarthritis of multiple joints Comment: knees, neck No date: Pain in joint, pelvic region and thigh No date: Pelvic kidney No date: Seizure disorder (HCC) Comment: following CVA No date: Tobacco abuse No date: Urinary incontinence, mixed No date: Urinary retention No date: Vitamin D deficiency HPI: Subjective Data: Patient seen today for follow up no new issues Review of System No reports of or complaints of chest pain, palpitations, shortness of breath, cough, change in bowel habit, abdominal pain, nausea or vomiting.. No fevers. No falls. Family/Social History: Unchanged. Medications: see current medication list in [facility] chart, reviewed (Medications in [facility] may not accurate, please see update in [facility] chart) Objective Data: Vital signs reviewed with nurse Visit made with required PPE per facility policy General: Alert, no distress, comfortable, in bed Skin: warm dry no rash seen HEENT: no exudate, lymphadenopathy or masses Chest: good resp effort no distress, -cough,-sob Abdomen: no distention or masses +bs soft Extremities: non pitting edema, MSK: patient able to moves limbs actively Neuro: AANDo 3 Psy: appropriate mood and affect Lab/Diagnosis: I have reviewed this patient's medications and treatment plan, as available, as well as most recent labwork available for review. No off label use of medications. Assessment and Plan: ASSESSMENT/PLAN: 1. Osteoarthritis of multiple joints, unspecified osteoarthritis type - ICD9: 715.89, ICD10: M15.9 (primary diagnosis) Tramadol 2. Essential hypertension - ICD9: 401.9, ICD10: I10 - Controlled 3. Chronic cervical pain - ICD9: 723.1, 338.29, ICD10: M54.2, G89.29 Tramadol OT therapy Zora Flores APRN.SHERYL We will continue to monitor for overall comfort, function and safety. Call for changes in condition. Electronically signed by Zora Flores APRN.CNP December 06, 2023 8:55 AM [facility] 12-06-2023 History of Present illness Narrative Images from the original note were not included. Connected Care Unit Progress Note Facility: [facility] Level of Care: Long-term SNF Attending: Macarena Bain M.D. Service Date: 12/06/2023 Reason For Visit: for a seen for chronic condition management and medical complexity. Past Medical History: Past Medical Hx: PAST MEDICAL HISTORY No date: Abnormal gait No date: Acute neutrophilia No date: Atrophic vaginitis No date: Chronic constipation No date: Cobalamin deficiency No date: Constipation No date: Depressive disorder No date: Dyslipidemia No date: Essential hypertension No date: Falls No date: GERD (gastroesophageal reflux disease) No date: Hip pain No date: Incomplete emptying of bladder No date: Insomnia No date: Late effects of cerebrovascular disease No date: Multiple joint pain No date: Neck pain No date: Nephrolithiasis No date: Osteoarthritis of multiple joints Comment: knees, neck No date: Pain in joint, pelvic region and thigh No date: Pelvic kidney No date: Seizure disorder (HCC) Comment: following CVA No date: Tobacco abuse No date: Urinary incontinence, mixed No date: Urinary retention No date: Vitamin D deficiency HPI: Subjective Data: Patient seen today for follow up no new issues Review of System No reports of or complaints of chest pain, palpitations, shortness of breath, cough, change in bowel habit, abdominal pain, nausea or vomiting.. No fevers. No falls. Family/Social History: Unchanged. Medications: see current medication list in [facility] chart, reviewed (Medications in [facility] may not accurate, please see update in [facility] chart) Objective Data: Vital signs reviewed with nurse Visit made with required PPE per facility policy General: Alert, no distress, comfortable, in bed Skin: warm dry no rash seen HEENT: no exudate, lymphadenopathy or masses Chest: good resp effort no distress, -cough,-sob Abdomen: no distention or masses +bs soft Extremities: non pitting edema, MSK: patient able to moves limbs actively Neuro: A&o 3 Psy: appropriate mood and affect Lab/Diagnosis: I have reviewed this patient's medications and treatment plan, as available, as well as most recent labwork available for review. No off label use of medications. Assessment and Plan: ASSESSMENT/PLAN: 1. Osteoarthritis of multiple joints, unspecified osteoarthritis type - ICD9: 715.89, ICD10: M15.9 (primary diagnosis) Tramadol 2. Essential hypertension - ICD9: 401.9, ICD10: I10 - Controlled 3. Chronic cervical pain - ICD9: 723.1, 338.29, ICD10: M54.2, G89.29 Tramadol OT therapy Zora Flores APRN.FIBERGL[employer] DOWEL DRAWING OPERATOR We will continue to monitor for overall comfort, function and safety. Call for changes in condition. Electronically signed by Zora Flores APRN.CNP December 06, 2023 8:55 AM documented in this encounter [facility] 11-29-2023 Note HNO ID: [id number] Author: ZORA FLORES APRN.CNP Service: ? Author Type: Nurse Practitioner Type: Progress Notes Filed: 11/29/2023 09:06 Note Text: Connected Care Unit Progress Note Facility: [facility] Level of Care: Long-term SNF Attending: Macarena Bain M.D. Service Date: 11/29/2023 Reason For Visit: for a seen for chronic condition management and medical complexity. Past Medical History: Past Medical Hx: PAST MEDICAL HISTORY No date: Abnormal gait No date: Acute neutrophilia No date: Atrophic vaginitis No date: Chronic constipation No date: Cobalamin deficiency No date: Constipation No date: Depressive disorder No date: Dyslipidemia No date: Essential hypertension No date: Falls No date: GERD (gastroesophageal reflux disease) No date: Hip pain No date: Incomplete emptying of bladder No date: Insomnia No date: Late effects of cerebrovascular disease No date: Multiple joint pain No date: Neck pain No date: Nephrolithiasis No date: Osteoarthritis of multiple joints Comment: knees, neck No date: Pain in joint, pelvic region and thigh No date: Pelvic kidney No date: Seizure disorder (HCC) Comment: following CVA No date: Tobacco abuse No date: Urinary incontinence, mixed No date: Urinary retention No date: Vitamin D deficiency HPI: Subjective Data: Patient seen today for follow up during shower aide noted thick pus like urine + pain no fever chills abd pain. She has hx of utis. Review of System No reports of or complaints of chest pain, palpitations, shortness of breath, cough, change in bowel habit, abdominal pain, nausea or vomiting. No fevers. No falls. Family/Social History: Unchanged. Medications: see current medication list in [facility] chart, reviewed (Medications in [facility] may not accurate, please see update in [facility] chart) Objective Data: Vital signs reviewed with nurse Visit made with required PPE per facility policy General: Alert, no distress, comfortable, in bed Skin: warm dry no rash seen HEENT: no exudate, lymphadenopathy or masses Chest: good resp effort no distress, -cough,-sob Abdomen: no distention or masses +bs soft Extremities: non pitting edema, MSK: patient able to moves limbs actively Neuro: AANDo 2 Psy: appropriate mood and affect Lab/Diagnosis: I have reviewed this patient's medications and treatment plan, as available, as well as most recent labwork available for review. No off label use of medications. Assessment and Plan: ASSESSMENT/PLAN: 1. Foul smelling urine - ICD9: 791.9, ICD10: R82.90 Urine culture dip and report Water 240cc po tid x 7 days Bactrim ds bid x 5 days Zora Flores APRN.[employer] DRAWING [employer]PERATOR We will continue to monitor for overall comfort, function and safety. Call for changes in condition. Electronically signed by Zora Flores APRN.CNP November 29, 2023 9:05 AM [facility] 11-29-2023 History of Present illness Narrative Images from the original note were not included. Connected Care Unit Progress Note Facility: [facility] Level of Care: Long-term SNF Attending: Macarena Bain M.D. Service Date: 11/29/2023 Reason For Visit: for a seen for chronic condition management and medical complexity. Past Medical History: Past Medical Hx: PAST MEDICAL HISTORY No date: Abnormal gait No date: Acute neutrophilia No date: Atrophic vaginitis No date: Chronic constipation No date: Cobalamin deficiency No date: Constipation No date: Depressive disorder No date: Dyslipidemia No date: Essential hypertension No date: Falls No date: GERD (gastroesophageal reflux disease) No date: Hip pain No date: Incomplete emptying of bladder No date: Insomnia No date: Late effects of cerebrovascular disease No date: Multiple joint pain No date: Neck pain No date: Nephrolithiasis No date: Osteoarthritis of multiple joints Comment: knees, neck No date: Pain in joint, pelvic region and thigh No date: Pelvic kidney No date: Seizure disorder (HCC) Comment: following CVA No date: Tobacco abuse No date: Urinary incontinence, mixed No date: Urinary retention No date: Vitamin D deficiency HPI: Subjective Data: Patient seen today for follow up during shower aide noted thick pus like urine + pain no fever chills abd pain. She has hx of utis. Review of System No reports of or complaints of chest pain, palpitations, shortness of breath, cough, change in bowel habit, abdominal pain, nausea or vomiting. No fevers. No falls. Family/Social History: Unchanged. Medications: see current medication list in [facility] chart, reviewed (Medications in [facility] may not accurate, please see update in [facility] chart) Objective Data: Vital signs reviewed with nurse Visit made with required PPE per facility policy General: Alert, no distress, comfortable, in bed Skin: warm dry no rash seen HEENT: no exudate, lymphadenopathy or masses Chest: good resp effort no distress, -cough,-sob Abdomen: no distention or masses +bs soft Extremities: non pitting edema, MSK: patient able to moves limbs actively Neuro: A&o 2 Psy: appropriate mood and affect Lab/Diagnosis: I have reviewed this patient's medications and treatment plan, as available, as well as most recent labwork available for review. No off label use of medications. Assessment and Plan: ASSESSMENT/PLAN: 1. Foul smelling urine - ICD9: 791.9, ICD10: R82.90 Urine culture dip and report Water 240cc po tid x 7 days Bactrim ds bid x 5 days Zora Flores APRN.CNP We will continue to monitor for overall comfort, function and safety. Call for changes in condition. Electronically signed by Zora Flores APRN.CNP November 29, 2023 9:05 AM documented in this encounter [facility] 11-06-2023 History of Present illness Narrative Images from the original note were not included. Connected Care Unit Progress Note Facility: [facility] Level of Care: Long-term SNF Attending: Macarnea Bain M.D. Service Date: 11/06/2023 Reason For Visit: for a seen for chronic condition management and medical complexity. Past Medical History: Past Medical Hx: PAST MEDICAL HISTORY No date: Abnormal gait No date: Acute neutrophilia No date: Atrophic vaginitis No date: Chronic constipation No date: Cobalamin deficiency No date: Constipation No date: Depressive disorder No date: Dyslipidemia No date: Essential hypertension No date: Falls No date: GERD (gastroesophageal reflux disease) No date: Hip pain No date: Incomplete emptying of bladder No date: Insomnia No date: Late effects of cerebrovascular disease No date: Multiple joint pain No date: Neck pain No date: Nephrolithiasis No date: Osteoarthritis of multiple joints Comment: knees, neck No date: Pain in joint, pelvic region and thigh No date: Pelvic kidney No date: Seizure disorder (HCC) Comment: following CVA No date: Tobacco abuse No date: Urinary incontinence, mixed No date: Urinary retention No date: Vitamin D deficiency HPI: Subjective Data: Patient seen today for follow up labs with elevated wbc 12 urine with foul odor, started bactrim bid x 5 days urine sent, has repeat labs, mild confusion, sleeping at night, no hematuria. Review of System No reports of or complaints of chest pain, palpitations, shortness of breath, cough, change in bowel habit, abdominal pain, nausea or vomiting. No fevers. No falls. Family/Social History: Unchanged. Medications: see current medication list in [facility] chart, reviewed (Medications in [facility] may not accurate, please see update in [facility] chart) Objective Data: Vital signs reviewed with nurse Visit made with required PPE per facility policy General: Alert, no distress, comfortable, in bed Skin: warm dry no rash seen HEENT: no exudate, lymphadenopathy or masses Chest: good resp effort no distress, -cough,-sob Abdomen: no distention or masses +bs soft Extremities: non pitting edema, MSK: patient able to moves limbs actively Neuro: A&o 2 Psy: appropriate mood and affect Lab/Diagnosis: I have reviewed this patient's medications and treatment plan, as available, as well as most recent labwork available for review. No off label use of medications. Assessment and Plan: ASSESSMENT/PLAN: 1. Leukocytosis, unspecified type - ICD9: 288.60, ICD10: D72.829 (primary diagnosis) Bactrim bid x 5 days repeat cbc one week urine sent Water 240 cc po tid routine no stop date 2. Confusion - ICD9: 298.9, ICD10: R41.0 See 1 Zora Flores APRN.SHERYL We will continue to monitor for overall comfort, function and safety. Call for changes in condition. Electronically signed by Zora Flores APRN.CNP November 06, 2023 10:08 AM documented in this encounter [facility] 11-06-2023 History of Present illness Narrative [facility] LONGTERM NOTE NAME: DIOR CARVAJAL CL[facility] NO.: [id number] DATE OF SERVICE: 11/06/2023 ATTENDING PHYSICIAN: Macarena Bain MD [facility] Followup of multiple medical chronic issues. She is currently up in her reclining chair. She is getting ready for her lunch. She has no complaints. She denies any shortness of breath or chest pain. Nursing reports no problems. MEDICATIONS: Reviewed. EXAMINATION: Afebrile, vital signs stable. HEENT: Intact. Lungs: Clear. Heart: Regular. Abdomen: Soft, nontender. Extremities: With trace edema. IMPRESSIONS: 1. Chronic cervical neck pain - this has been stable. 2. Hypertension - blood pressure is well controlled. 3. Major depression - she appears to be in good spirits. Continue current treatment. 4. Hyperlipidemia - continue statin therapy. 5. Degenerative osteoarthritis - no active flare-up. She did have recent labs which were within a fair range. She had displayed some increased confusion earlier in the week, which seems to have improved. I believe she is receiving Bactrim for possible urinary tract infection. Medically stable at this time. We will continue to monitor closely. DICTATED BY: MD JENELLE SingletonE/AQT JOB# [id number] [facility] documented in this encounter [facility] 10-11-2023 History of Present illness Narrative Images from the original note were not included. Connected Care Unit Progress Note Facility: [facility] Sk[facility] Care Level of Care: Long-term SNF Attending: Macarena Bain M.D. Service Date: 10/11/2023 Reason For Visit: for a seen for chronic condition management and medical complexity. Past Medical History: Past Medical Hx: PAST MEDICAL HISTORY Diagnosis Date Abnormal gait Acute neutrophilia Atrophic vaginitis Chronic constipation Cobalamin deficiency Constipation Depressive disorder Dyslipidemia Essential hypertension Falls GERD (gastroesophageal reflux disease) Hip pain Incomplete emptying of bladder Insomnia Late effects of cerebrovascular disease Multiple joint pain Neck pain Nephrolithiasis Osteoarthritis of multiple joints knees, neck Pain in joint, pelvic region and thigh 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 Tobacco abuse Urinary incontinence, mixed Urinary retention Vitamin D deficiency HPI: Subjective Data: Patient seen today for follow up monthly no new issues Review of System No reports of or complaints of chest pain, palpitations, shortness of breath, cough, change in bowel habit, abdominal pain, nausea or vomiting. No fevers. No falls. Family/Social History: Unchanged. Medications: see current medication list in [facility] chart, reviewed (Medications in [facility] may not accurate, please see update in [facility] chart) Objective Data: Wt 177 lbs Vital signs reviewed with nurse Visit made with required PPE per facility policy General: Alert, no distress, comfortable, in bed Skin: warm dry no rash seen HEENT: no exudate, lymphadenopathy or masses Chest: good resp effort no distress, -cough,-sob Abdomen: no distention or masses +bs soft Extremities: non pitting edema, MSK: patient able to moves limbs actively Neuro: A&o 3 Psy: appropriate mood and affect Lab/Diagnosis: I have reviewed this patient's medications and treatment plan, as available, as well as most recent labwork available for review. No off label use of medications. Assessment and Plan: ASSESSMENT/PLAN: 1. Osteoarthritis of multiple joints, unspecified osteoarthritis type - ICD9: 715.89, ICD10: M15.9 (primary diagnosis) 2. Left hip pain - ICD9: 719.45, ICD10: M25.552 3. Chronic neck pain - ICD9: 723.1, 338.29, ICD10: M54.2, G89.29 Tramadol routine, encourage ambulation daily 4. Essential hypertension - ICD9: 401.9, ICD10: I10 - Controlled - Continue current medications Zora Flores APRN.SHERYL We will continue to monitor for overall comfort, function and safety. Call for changes in condition. Electronically signed by Zora Flores APRN.CNP October 11, 2023 8:59 AM documented in this encounter [facility] 10-07-2023 History of Present illness Narrative Dior Carvajal : 1965 Correction: [facility]- Correction/Assisted Living PCP: dr. bain Date last seen: 09/11/2023 PAST MEDICAL HISTORY Diagnosis Date Abnormal gait Acute neutrophilia Atrophic vaginitis Chronic constipation Cobalamin deficiency Constipation Depressive disorder Dyslipidemia Essential hypertension Falls GERD (gastroesophageal reflux disease) Hip pain Incomplete emptying of bladder Insomnia Late effects of cerebrovascular disease Multiple joint pain Neck pain Nephrolithiasis Osteoarthritis of multiple joints knees, neck Pain in joint, pelvic region and thigh 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 Tobacco abuse Urinary incontinence, mixed Urinary retention Vitamin D deficiency Current Outpatient Medications Medication Sig traMADol (ULTRAM) 50 mg tablet Take 1 tablet by mouth two times a day for 180 days. atorvastatin (LIPITOR) 20 mg tablet Take 1 tablet by mouth once daily. omeprazole (PRILOSEC) 40 mg capsule Take 1 capsule by mouth once daily. mirabegron (MYRBETRIQ) 50 mg Tb24 Take 1 tablet by mouth once daily. conjugated estrogens (PREMARIN) vaginal cream Use 0.5 g vaginally two times a week. LINZESS 72 mcg capsule Take 1 capsule by mouth once daily. dicyclomine (BENTYL) 20 mg tablet Take 1 tablet by mouth w MEALS. ondansetron orally disintegrating (ZOFRAN ODT) 4 mg disintegrating tablet Take 1 tablet by mouth as needed. carvedilol (COREG) 3.125 mg tablet Take 1 tablet by mouth twice daily with meals. Multivitamin capsule Take 1 capsule by mouth once daily. aspirin 81 mg chewable tablet Take 1 tablet by mouth once daily. No current facility-administered medications for this visit. ALLERGIES Allergen Reactions Aleve [Naproxen] Hives, Itching Iodinated Contrast * Other: See Comments dyspnea Latex Other: See Comments blisters Methadone Unknown Subjective: Dior is a 58 year old female who is not diabetic. Presents today for evaluation and treatment of painful digital nail deformity as well as generalized foot care . Patient has been unable to provide self nail care due to the severe nature of deformity which causes pain and pressure and limits the patients abilty to wear shoe gear without pain. Patient is advised not to attempt self care. Class B Findings: Decrease or absence of hair growth, Skin texture (thin, shiny), and Nail changes (thickening) Objective: Each digital nail on the right 1 and the left 1 is elongated, thickened, ridged, & brittle. There is no surrounding cellulitis, deep incurvation, or evidence of bacterial infection. Class findings include normal pedal pulses, lack of digital pedal hair growth, the above noted nail changes, Lower Extremity Edema: no edema. Assessment: Symptomatic onychoDystrophic digital nails toes 1 Rt 1 Lt. Examination of individual toenails: R5 is normal. R4 is normal. R3 is normal. R2 is normal. R1 is brittle, discolored, dystrophic, elongated, . L1 is brittle, discolored, dystrophic, elongated, . L2 is normal. L3 is normal. L4 is normal. L5 is normal. Plan: The offending nail margins were mechanically and electrically debrided to the level of normal underlying nail bed with good relief obtained as evidenced by pain free palpation of the digits. The patient will be followed to maintain the length and thickness of their nails as best as possible. Patient relates painful treatment. We will see her back on an as needed basis or sooner should problems arise. Recommended: No Anti Fungal Nail dystrophy (primary encounter diagnosis) Aspirin long-term use Hayder Bone DPM documented in this encounter [facility] 10-07-2023 Instructions Hayder Bone DPM - 10/07/2023 7:19 AM EDT Pt not to attempt self care due to high risk. documented in this encounter [facility] 09-11-2023 History of Present illness Narrative [facility] NOTE NAME: DIOR CARVAJAL [facility] NO.: [id number] DATE OF SERVICE: 09/11/2023 ATTENDING PHYSICIAN: Macarena Bain MD [facility] Followup of multiple medical chronic issues She is currently up in her room, watching television. She appears comfortable. She denies any shortness of breath or chest pain. She does complain of occasional headache. MEDS: Reviewed. EXAMINATION: Afebrile, vital signs stable. HEENT: Intact. Lungs: Clear. Heart: Regular. Abdomen: Soft, nontender. Extremities: Trace edema. IMPRESSION: 1. Major depression - appears to be in fairly good spirits. Continue to monitor mood and behavior. 2. Hypertension - blood pressures within a good range. 3. Chronic cervical neck pain - continue supportive care. 4. Hyperlipidemia - continue statin therapy. DICTATED BY: MD JENELLE SingletonE/JOHNNIE JOB# [id number] [facility] documented in this encounter [facility] 08-28-2023 History of Present illness Narrative Images from the original note were not included. Connected Care Unit Progress Note Facility: [facility] Level of Care: Long-term SNF Attending: Macarena Bain M.D. Service Date: 08/28/2023 Reason For Visit: for a seen for chronic condition management and medical complexity. Past Medical History: Past Medical Hx: PAST MEDICAL HISTORY Diagnosis Date Abnormal gait Acute neutrophilia Atrophic vaginitis Chronic constipation Cobalamin deficiency Constipation Depressive disorder Dyslipidemia Essential hypertension Falls GERD (gastroesophageal reflux disease) Hip pain Incomplete emptying of bladder Insomnia Late effects of cerebrovascular disease Multiple joint pain Neck pain Nephrolithiasis Osteoarthritis of multiple joints knees, neck Pain in joint, pelvic region and thigh 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 Tobacco abuse Urinary incontinence, mixed Urinary retention Vitamin D deficiency HPI: Subjective Data: Patient seen today for follow up requested visit for left hip pain currently in therapy, tramadol 50mg po bid chronic. Using tylenol between states ineffective. Hx OA Review of System No reports of or complaints of chest pain, palpitations, shortness of breath, cough, change in bowel habit, abdominal pain, nausea or vomiting. No fevers. No falls. Family/Social History: Unchanged. Medications: see current medication list in [facility] chart, reviewed (Medications in [facility] may not accurate, please see update in [facility] chart) Objective Data: Vital signs reviewed with nurse Visit made with required PPE per facility policy General: Alert, no distress, comfortable, in bed Skin: warm dry no rash seen HEENT: no exudate, lymphadenopathy or masses Chest: good resp effort no distress, -cough,-sob Abdomen: no distention or masses +bs soft Extremities: non pitting edema, MSK: patient able to moves limbs actively Neuro: A&o 3 Psy: appropriate mood and affect Lab/Diagnosis: I have reviewed this patient's medications and treatment plan, as available, as well as most recent labwork available for review. No off label use of medications. Assessment and Plan: ASSESSMENT/PLAN: 1. Osteoarthritis of multiple joints, unspecified osteoarthritis type - ICD9: 715.89, ICD10: M15.9 (primary diagnosis) Tramadol 5o mg po bid 2. Left hip pain - ICD9: 719.45, ICD10: M25.552 Methocarbamol 500mg prn Zora Flores APRN.SHERYL We will continue to monitor for overall comfort, function and safety. Call for changes in condition. Electronically signed by Zora Flores APRN.CNP August 28, 2023 9:22 AM documented in this encounter [facility] 08-16-2023 History of Present illness Narrative Images from the original note were not included. Connected Care Unit Progress Note Facility: [facility] Care Level of Care: Long-term SNF Attending: Macarena Bain M.D. Service Date: 08/16/2023 Reason For Visit: for a seen for chronic condition management and medical complexity. Past Medical History: Past Medical Hx: PAST MEDICAL HISTORY Diagnosis Date Abnormal gait Acute neutrophilia Atrophic vaginitis Chronic constipation Cobalamin deficiency Constipation Depressive disorder Dyslipidemia Essential hypertension Falls GERD (gastroesophageal reflux disease) Hip pain Incomplete emptying of bladder Insomnia Late effects of cerebrovascular disease Multiple joint pain Neck pain Nephrolithiasis Osteoarthritis of multiple joints knees, neck Pain in joint, pelvic region and thigh 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 Tobacco abuse Urinary incontinence, mixed Urinary retention Vitamin D deficiency HPI: Subjective Data: Patient seen today for follow up no new issues Review of System No reports of or complaints of chest pain, palpitations, shortness of breath, cough, change in bowel habit, abdominal pain, nausea or vomiting. No fevers. No falls. Family/Social History: Unchanged. Medications: see current medication list in [facility] chart, reviewed (Medications in [facility] may not accurate, please see update in [facility] chart) Objective Data: Vital signs reviewed with nurse Visit made with required PPE per facility policy General: Alert, no distress, comfortable, in bed Skin: warm dry no rash seen HEENT: no exudate, lymphadenopathy or masses Chest: good resp effort no distress, -cough,-sob Abdomen: no distention or masses +bs soft Extremities: non pitting edema, MSK: patient able to moves limbs actively Neuro: A&o 3 Psy: appropriate mood and affect Lab/Diagnosis: I have reviewed this patient's medications and treatment plan, as available, as well as most recent labwork available for review. No off label use of medications. Assessment and Plan: ASSESSMENT/PLAN: 1. Osteoarthritis of multiple joints, unspecified osteoarthritis type - ICD9: 715.89, ICD10: M15.9 (primary diagnosis) On meds controlled 2. Chronic neck pain - ICD9: 723.1, 338.29, ICD10: M54.2, G89.29 Tramadol 3. Essential hypertension - ICD9: 401.9, ICD10: I10 - Controlled - Continue current medications Zora Flores APRN.SHERYL We will continue to monitor for overall comfort, function and safety. Call for changes in condition. Electronically signed by Zora Flores APRN.CNP August 16, 2023 8:39 AM documented in this encounter [facility] 07-29-2023 History of Present illness Narrative Dior Carvajal : 1965 Correction: [facility]- Correction/Assisted Living PCP: DR. BAIN Date last seen: 07/17 PAST MEDICAL HISTORY Diagnosis Date Abnormal gait Acute neutrophilia Atrophic vaginitis Chronic constipation Cobalamin deficiency Constipation Depressive disorder Dyslipidemia Essential hypertension Falls GERD (gastroesophageal reflux disease) Hip pain Incomplete emptying of bladder Insomnia Late effects of cerebrovascular disease Multiple joint pain Neck pain Nephrolithiasis Osteoarthritis of multiple joints knees, neck Pain in joint, pelvic region and thigh 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 Tobacco abuse Urinary incontinence, mixed Urinary retention Vitamin D deficiency Current Outpatient Medications Medication Sig traMADol (ULTRAM) 50 mg tablet Take 1 tablet by mouth two times a day for 180 days. atorvastatin (LIPITOR) 20 mg tablet Take 1 tablet by mouth once daily. omeprazole (PRILOSEC) 40 mg capsule Take 1 capsule by mouth once daily. mirabegron (MYRBETRIQ) 50 mg Tb24 Take 1 tablet by mouth once daily. conjugated estrogens (PREMARIN) vaginal cream Use 0.5 g vaginally two times a week. LINZESS 72 mcg capsule Take 1 capsule by mouth once daily. dicyclomine (BENTYL) 20 mg tablet Take 1 tablet by mouth w MEALS. ondansetron orally disintegrating (ZOFRAN ODT) 4 mg disintegrating tablet Take 1 tablet by mouth as needed. carvedilol (COREG) 3.125 mg tablet Take 1 tablet by mouth twice daily with meals. Multivitamin capsule Take 1 capsule by mouth once daily. aspirin 81 mg chewable tablet Take 1 tablet by mouth once daily. No current facility-administered medications for this visit. ALLERGIES Allergen Reactions Aleve [Naproxen] Hives, Itching Iodinated Contrast * Other: See Comments dyspnea Latex Other: See Comments blisters Methadone Unknown Subjective: Dior is a 58 year old female who is not diabetic. Presents today for evaluation and treatment of painful digital nail deformity as well as generalized foot care . Patient has been unable to provide self nail care due to the severe nature of deformity which causes pain and pressure and limits the patients abilty to wear shoe gear without pain. Patient is advised not to attempt self care. Class B Findings: Decrease or absence of hair growth, Skin texture (thin, shiny), and Nail changes (thickening) Objective: Each digital nail on the right 1 and the left 1 is elongated, thickened, ridged. There is no surrounding cellulitis, deep incurvation, or evidence of bacterial infection. Class findings include normal pedal pulses, lack of digital pedal hair growth, the above noted nail changes, Lower Extremity Edema: no edema. Assessment: Symptomatic onychoDYSTROPHIC digital nails toes 1 Rt 1 Lt. Examination of individual toenails: R5 is normal. R4 is normal. R3 is normal. R2 is normal. R1 is brittle, discolored, dystrophic, elongated, . L1 is brittle, discolored, dystrophic, elongated, . L2 is normal. L3 is normal. L4 is normal. L5 is normal. Plan: The offending nail margins were mechanically and electrically debrided to the level of normal underlying nail bed with good relief obtained as evidenced by pain free palpation of the digits. The patient will be followed to maintain the length and thickness of their nails as best as possible. Patient relates painful TREATMENT. We will see her back on an as needed basis or sooner should problems arise. Patient was recommended walking, exercise Recommended: No Anti Fungal Nail dystrophy (primary encounter diagnosis) Aspirin long-term use Hayder Bone DPM documented in this encounter [facility] 07-29-2023 Instructions Hayder Bone DPM - 07/29/2023 1:46 PM EDT Pt not to attempt self care due to high risk. documented in this encounter [facility] 06-27-2023 History of Present illness Narrative [facility] LONGTERM NOTE NAME: DIOR [facility] NO.: [id number] DATE OF SERVICE: 06/27/2023 ATTENDING PHYSICIAN: Macarena Bain MD [facility] Followup of multiple medical chronic issues She is currently up in her room, watching television. She is alert and responsive. She states she is doing fairly well. She denies any shortness of breath or chest pain. Nursing reports no problems. MEDICATIONS: Reviewed. EXAMINATION: Afebrile, vital signs stable. HEENT: Intact. Lungs: Clear. Heart: Regular. Abdomen: Soft, nontender. Extremities: Reveal trace edema. IMPRESSIONS: 1. Chronic cervical neck pain - this appears stable. 2. Hypertension - blood pressures fairly well controlled. 3. Major depression - continue to monitor mood and behavior. 4. Hyperlipidemia - continue statin therapy. DICTATED BY: MD PRASHANT Singleton/AQT JOB# [id number] [facility] documented in this encounter [facility] 06-19-2023 History of Present illness Narrative Images from the original note were not included. Connected Care Unit Progress Note Facility: [facility] Level of Care: Long-term SNF Attending: Macarena Bain M.D. Service Date: 06/19/2023 Reason For Visit: for a seen for chronic condition management and medical complexity. Past Medical History: Past Medical Hx: PAST MEDICAL HISTORY Diagnosis Date Abnormal gait Acute neutrophilia Atrophic vaginitis Chronic constipation Cobalamin deficiency Constipation Depressive disorder Dyslipidemia Essential hypertension Falls GERD (gastroesophageal reflux disease) Hip pain Incomplete emptying of bladder Insomnia Late effects of cerebrovascular disease Multiple joint pain Neck pain Nephrolithiasis Osteoarthritis of multiple joints knees, neck Pain in joint, pelvic region and thigh 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 Tobacco abuse Urinary incontinence, mixed Urinary retention Vitamin D deficiency HPI: Subjective Data: Patient seen today for fu no new issues pain controlled sitting up in chair Review of System No reports of or complaints of chest pain, palpitations, shortness of breath, cough, change in bowel habit, abdominal pain, nausea or vomiting. No fevers. No falls. Family/Social History: Unchanged. Medications: see current medication list in [facility] chart, reviewed (Medications in EPIC may not accurate, please see update in [facility] chart) Objective Data: Wt 176 lbs Vital signs reviewed with nurse Visit made with required PPE due to covid. General: Alert, no distress, comfortable, in bed Skin: warm dry no rash seen HEENT: no exudate, lymphadenopathy or masses Chest: good resp effort no distress, -cough,-sob Abdomen: no distention or masses +bs soft Extremities: non pitting edema, MSK: patient able to move all limbs actively Neuro: A&o 3 Psy: appropriate mood and affect Lab/Diagnosis: I have reviewed this patient's medications and treatment plan, as available, as well as most recent labwork available for review. No off label use of medications. Assessment and Plan: ASSESSMENT/PLAN: 1. Osteoarthritis of multiple joints, unspecified osteoarthritis type - ICD9: 715.89, ICD10: M15.9 (primary diagnosis) Stable on routine meds 2. Chronic neck pain - ICD9: 723.1, 338.29, ICD10: M54.2, G89.29 Stable on routine meds 3. Essential hypertension - ICD9: 401.9, ICD10: I10 - Controlled - Continue current medications Zora Flores APRN.[employer] DRAW[employer]PERATOR We will continue to monitor for overall comfort, function and safety. Call for changes in condition. Electronically signed by Zora Flores APRN.SHERYL June 19, 2023 9:50 AM documented in this encounter [facility] 05-25-2023 History of Present illness Narrative Dior Carvajal : 1965 Correction: [facility]- Correction/Assisted Living PCP: DR. BAIN Date last seen: 04/2023 PAST MEDICAL HISTORY Diagnosis Date Abnormal gait Acute neutrophilia Atrophic vaginitis Chronic constipation Cobalamin deficiency Constipation Depressive disorder Dyslipidemia Essential hypertension Falls GERD (gastroesophageal reflux disease) Hip pain Incomplete emptying of bladder Insomnia Late effects of cerebrovascular disease Multiple joint pain Neck pain Nephrolithiasis Osteoarthritis of multiple joints knees, neck Pain in joint, pelvic region and thigh 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 Tobacco abuse Urinary incontinence, mixed Urinary retention Vitamin D deficiency Current Outpatient Medications Medication Sig traMADol (ULTRAM) 50 mg tablet Take 1 tablet by mouth two times a day for 180 days. atorvastatin (LIPITOR) 20 mg tablet Take 1 tablet by mouth once daily. omeprazole (PRILOSEC) 40 mg capsule Take 1 capsule by mouth once daily. mirabegron (MYRBETRIQ) 50 mg Tb24 Take 1 tablet by mouth once daily. conjugated estrogens (PREMARIN) vaginal cream Use 0.5 g vaginally two times a week. LINZESS 72 mcg capsule Take 1 capsule by mouth once daily. dicyclomine (BENTYL) 20 mg tablet Take 1 tablet by mouth w MEALS. ondansetron orally disintegrating (ZOFRAN ODT) 4 mg disintegrating tablet Take 1 tablet by mouth as needed. carvedilol (COREG) 3.125 mg tablet Take 1 tablet by mouth twice daily with meals. Multivitamin capsule Take 1 capsule by mouth once daily. aspirin 81 mg chewable tablet Take 1 tablet by mouth once daily. No current facility-administered medications for this visit. ALLERGIES Allergen Reactions Aleve [Naproxen] Hives, Itching Iodinated Contrast * Other: See Comments dyspnea Latex Other: See Comments blisters Methadone Unknown Subjective: Dior is a 58 year old female who is not diabetic. Presents today for evaluation and treatment of painful digital nail deformity as well as generalized foot care . Patient has been unable to provide self nail care due to the severe nature of deformity which causes pain and pressure and limits the patients abilty to wear shoe gear without pain. Patient is advised not to attempt self care. Class B Findings: Decrease or absence of hair growth, Skin texture (thin, shiny), and Nail changes (thickening) Objective: Each digital nail on the right 1 and the left 1 is elongated, thickened, ridged, & BRITTLE There is no surrounding cellulitis, deep incurvation, or evidence of bacterial infection. Class findings include normal pedal pulses, lack of digital pedal hair growth, the above noted nail changes, Lower Extremity Edema: no edema. Assessment: Symptomatic onychoDYSTROPHIC digital nails toes 1 Rt 1 Lt. Examination of individual toenails: R5 is normal. R4 is normal. R3 is normal. R2 is normal. R1 is brittle, discolored, dystrophic, elongated, . L1 is brittle, discolored, dystrophic, elongated, L2 is normal. L3 is normal. L4 is normal. L5 is normal. Plan: The offending nail margins were mechanically and electrically debrided to the level of normal underlying nail bed with good relief obtained as evidenced by pain free palpation of the digits. The patient will be followed to maintain the length and thickness of their nails as best as possible. Patient relates painful TREATMENT We will see her back on an as needed basis or sooner should problems arise. Patient was recommended walking, exercise Recommended: No Anti Fungal Nail dystrophy (primary encounter diagnosis) Aspirin long-term use Hayder Bone DPM documented in this encounter [facility] 05-25-2023 Instructions Hayder Bone DPM - 05/25/2023 12:24 PM EST Pt not to attempt self care due to high risk. documented in this encounter [facility] 05-03-2023 History of Present illness Narrative [facility] NOTE NAME: RAMEZ CARVAJAL NO.: [id number] DATE OF SERVICE: 05/03/2023 [facility] DATE OF : 1965 Follow up of multiple medical chronic issues. She is currently in a reclining chair, watching television. She seems to be doing fairly well. She states that she stopped smoking last month. She has no respiratory complaints. Her oral intake has been fair. Nursing reports no problems. Meds reviewed. PHYSICAL EXAMINATION: Afebrile, vital signs are stable. HEENT: Intact. Lungs: Clear. Heart: Regular. Abdomen: Soft, nontender. Extremities: Trace edema. IMPRESSION: 1. History of depression - she appears to be in good spirits. Monitor mood and behavior closely. 2. Hypertension. Her blood pressures within a fair range. 3. Chronic cervical neck pain - she has no complaints at this time. 4. Hyperlipidemia - continue statin therapy. DICTATED BY: MD PRASHANT Price/Genie JOB# [id number] cc:[facility] documented in this encounter [facility] 02-28-2023 History of Present illness Narrative [facility] NOTE NAME: RAMEZ CARVAJAL NO.: [id number] DATE OF SERVICE: 02/28/2023 [facility] DATE OF : 1965 Follow up of multiple medical chronic issues. She is currently up in her reclining chair watching television. She seems quite comfortable. She denies any shortness of breath or chest pain. Nursing reports no problems. MEDICATIONS: Reviewed. EXAMINATION: Afebrile, vital signs stable. HEENT: Intact. Lungs: Clear. Heart: Regular. Abdomen: Soft, nontender. Extremities: With trace edema. IMPRESSIONS: 1. Chronic cervical neck pain - stable. 2. Past history of depression - continue to monitor her mood and behavior. Continue on antidepressant therapy. 3. Hypertension - blood pressures within a good range. 4. Hyperlipidemia - continue statin therapy. DICTATED BY: MD PRASHANT Price/Genie JOB# [id number] cc:[facility] documented in this encounter [facility] 02-13-2023 History of Present illness Narrative Images from the original note were not included. Connected Care Unit Progress Note Facility: [facility] Level of Care: Long-term SNF Attending: Macarena Bain M.D. Service Date: 02/13/2023 Reason For Visit: for a seen for chronic condition management and medical complexity. Past Medical History: Past Medical Hx: PAST MEDICAL HISTORY Diagnosis Date Abnormal gait Acute neutrophilia Atrophic vaginitis Chronic constipation Cobalamin deficiency Constipation Depressive disorder Dyslipidemia Essential hypertension Falls GERD (gastroesophageal reflux disease) Hip pain Incomplete emptying of bladder Insomnia Late effects of cerebrovascular disease Multiple joint pain Neck pain Nephrolithiasis Osteoarthritis of multiple joints knees, neck Pain in joint, pelvic region and thigh 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 Tobacco abuse Urinary incontinence, mixed Urinary retention Vitamin D deficiency HPI: Subjective Data: Patient seen today for monthly fu no new issues no falls Review of System No reports of or complaints of chest pain, palpitations, shortness of breath, cough, change in bowel habit, abdominal pain, nausea or vomiting. Denies pain or any discomfort. Denies dysuria or change in urinating habit. No change in appetite. No fevers. No falls. Family/Social History: Unchanged. Medications: see current medication list in [facility] chart, reviewed (Medications in EPIC may not accurate, please see update in [facility] chart) Objective Data: Wt 178 lbs Vital signs reviewed with nurse Visit made with required PPE due to covid. General: Alert, no distress, comfortable, in bed Skin: warm dry no rash seen HEENT: no exudate, lymphadenopathy or masses Chest: CTA good resp effort no distress, cough,sob Abdomen: no distention or masses +bs soft Extremities: non pitting edema, MSK: patient able to move all limbs actively Neuro: A&o 3 Psy: appropriate mood and affect Lab/Diagnosis: I have reviewed this patient's medications and treatment plan, as available, as well as most recent labwork available for review. No off label use of medications. Assessment and Plan: ASSESSMENT/PLAN: 1. Osteoarthritis of multiple joints, unspecified osteoarthritis type - ICD9: 715.89, ICD10: M15.9 (primary diagnosis) Tramadol bid 2. Chronic neck pain - ICD9: 723.1, 338.29, ICD10: M54.2, G89.29 See 1 3. Essential hypertension - ICD9: 401.9, ICD10: I10 - Controlled - Continue current medications Zora Flores APRN.CNP We will continue to monitor for overall comfort, function and safety. Call for changes in condition. Electronically signed by Zora Flores APRN.CNP February 13, 2023 9:15 AM documented in this encounter [facility] 01-02-2023 History of Present illness Narrative [facility] NOTE NAME: RAMEZ CARVAJAL NO.: [id number] DATE OF SERVICE: 01/02/2023 [facility] DATE OF : 1965 Followup of multiple medical chronic issues She is currently sitting up in her room. She is alert, smiling, in good spirits. She has no complaints. Overall, she has been doing fairly well. Nursing reports no new problems. Meds reviewed. EXAMINATION: Afebrile, vital signs stable. HEENT: Intact. Lungs: Clear. Heart: Regular. Abdomen: Soft and nontender. Extremities: With trace edema. IMPRESSION: 1. Hypertension - blood pressures fairly well controlled. 2. Past history of depression - appears to be in good spirits. Maintain current treatment. Monitor mood and behavior. 3. Chronic cervical neck pain - continue current treatment. 4. Hyperlipidemia - continue statin therapy. DICTATED BY: MD PRASHANT Price/Genie JOB# [id number] cc:[facility] documented in this encounter [facility] 12-12-2022 History of Present illness Narrative Images from the original note were not included. Connected Care Unit Progress Note Facility: [facility] Level of Care: Long-term SNF Attending: Macarena Bian M.D. Service Date: 12/12/2022 Reason For Visit: for a seen for chronic condition management and medical complexity. Past Medical History: Past Medical Hx: PAST MEDICAL HISTORY Diagnosis Date Abnormal gait Acute neutrophilia Atrophic vaginitis Chronic constipation Cobalamin deficiency Constipation Depressive disorder Dyslipidemia Essential hypertension Falls GERD (gastroesophageal reflux disease) Hip pain Incomplete emptying of bladder Insomnia Late effects of cerebrovascular disease Multiple joint pain Neck pain Nephrolithiasis Osteoarthritis of multiple joints knees, neck Pain in joint, pelvic region and thigh 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 Tobacco abuse Urinary incontinence, mixed Urinary retention Vitamin D deficiency HPI: Subjective Data: Patient seen today for fu no new issues Review of System No reports of or complaints of chest pain, palpitations, shortness of breath, cough, change in bowel habit, abdominal pain, nausea or vomiting.No fevers. No falls. Family/Social History: Unchanged. Medications: see current medication list in [facility] chart, reviewed (Medications in EPIC may not accurate, please see update in [facility] chart) Objective Data: Vital signs reviewed with nurse Visit made with required PPE due to covid. General: Alert, no distress, comfortable, in bed Skin: warm dry no rash seen HEENT: no exudate, lymphadenopathy or masses Chest: CTA good resp effort no distress, cough,sob Abdomen: no distention or masses +bs soft Extremities: non pitting edema, MSK: patient able to move all limbs actively Neuro: A&o 3 Psy: appropriate mood and affect Lab/Diagnosis: I have reviewed this patient's medications and treatment plan, as available, as well as most recent labwork available for review. No off label use of medications. Assessment and Plan: ASSESSMENT/PLAN: 1. Osteoarthritis of multiple joints, unspecified osteoarthritis type - ICD9: 715.89, ICD10: M15.9 (primary diagnosis) Tramadol bid routine 2. Chronic neck pain - ICD9: 723.1, 338.29, ICD10: M54.2, G89.29 See one 3. Essential hypertension - ICD9: 401.9, ICD10: I10 - Controlled - Continue current medications Zora Flores APRN.[employer] DRAW[employer] OPERATOR We will continue to monitor for overall comfort, function and safety. Call for changes in condition. Electronically signed by Zora Flores APRN.SHERYL December 12, 2022 10:11 AM documented in this encounter [facility] 11-03-2022 History of Present illness Narrative Dior Carvajal : 1965 Correction: [facility]- Correction/Assisted Living PCP: ODELL Date last seen: SHERYL 09/2022 PAST MEDICAL HISTORY Diagnosis Date Abnormal gait Acute neutrophilia Atrophic vaginitis Chronic constipation Cobalamin deficiency Constipation Depressive disorder Dyslipidemia Essential hypertension Falls GERD (gastroesophageal reflux disease) Hip pain Incomplete emptying of bladder Insomnia Late effects of cerebrovascular disease Multiple joint pain Neck pain Nephrolithiasis Osteoarthritis of multiple joints knees, neck Pain in joint, pelvic region and thigh 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 Tobacco abuse Urinary incontinence, mixed Urinary retention Vitamin D deficiency Current Outpatient Medications Medication Sig traMADol (ULTRAM) 50 mg tablet Take 1 tablet by mouth twice daily for 180 days. atorvastatin (LIPITOR) 20 mg tablet Take 1 tablet by mouth once daily. omeprazole (PRILOSEC) 40 mg capsule Take 1 capsule by mouth once daily. mirabegron (MYRBETRIQ) 50 mg Tb24 Take 1 tablet by mouth once daily. conjugated estrogens (PREMARIN) vaginal cream Use 0.5 g vaginally two times a week. LINZESS 72 mcg capsule Take 1 capsule by mouth once daily. dicyclomine (BENTYL) 20 mg tablet Take 1 tablet by mouth w MEALS. ondansetron orally disintegrating (ZOFRAN ODT) 4 mg disintegrating tablet Take 1 tablet by mouth as needed. carvedilol (COREG) 3.125 mg tablet Take 1 tablet by mouth twice daily with meals. Multivitamin capsule Take 1 capsule by mouth once daily. aspirin 81 mg chewable tablet Take 1 tablet by mouth once daily. No current facility-administered medications for this visit. ALLERGIES Allergen Reactions Aleve [Naproxen] Hives, Itching Iodinated Contrast * Other: See Comments dyspnea Latex Other: See Comments blisters Methadone Unknown Subjective: Dior is a 57 year old female who is not diabetic. Presents today for evaluation and treatment of painful digital nail deformity as well as generalized foot care . Patient has been unable to provide self nail care due to the severe nature of deformity which causes pain and pressure and limits the patients abilty to wear shoe gear without pain. Patient is advised not to attempt self care. Class B Findings: Decrease or absence of hair growth, Skin texture (thin, shiny), and Nail changes (thickening) Objective: Each digital nail on the right 1 and the left 1 is elongated, thickened, ridged, BRITTLE. There is no surrounding cellulitis, deep incurvation, or evidence of bacterial infection. Class findings include normal pedal pulses, lack of digital pedal hair growth, the above noted nail changes. Lower Extremity Edema: no edema. Assessment: Symptomatic onychoDYSTROPHIC digital nails toes 1 Rt 1 Lt. Examination of individual toenails: R5 is normal. R4 is normal. R3 is normal. R2 is normal. R1 is brittle, discolored, dystrophic, elongated. L1 is brittle, discolored, dystrophic, elongated, . L2 is normal. L3 is normal. L4 is normal. L5 is normal. Plan: The offending nail margins were mechanically and electrically debrided to the level of normal underlying nail bed with good relief obtained as evidenced by pain free palpation of the digits. The patient will be followed to maintain the length and thickness of their nails as best as possible. Patient relates painful ambulation. We will see her back on an as needed basis or sooner should problems arise. Patient was recommended walking, exercise Recommended: No Anti Fungal Nail dystrophy (primary encounter diagnosis) Aspirin long-term use Hayder Bone DPM documented in this encounter [facility] 11-03-2022 Instructions Hayder Bone DPM - 11/03/2022 9:46 AM EDT Pt not to attempt self care due to high risk. documented in this encounter [facility] 09-12-2022 History of Present illness Narrative Images from the original note were not included. Connected Care Unit Progress Note Facility: [facility] Level of Care: Skilled SNF Attending: Macarena Bain M.D. Service Date: 09/12/2022 Reason For Visit: for a seen for chronic condition management and medical complexity. Past Medical History: Past Medical Hx: PAST MEDICAL HISTORY Diagnosis Date Abnormal gait Acute neutrophilia Atrophic vaginitis Chronic constipation Cobalamin deficiency Constipation Depressive disorder Dyslipidemia Essential hypertension Falls GERD (gastroesophageal reflux disease) Hip pain Incomplete emptying of bladder Insomnia Late effects of cerebrovascular disease Multiple joint pain Neck pain Nephrolithiasis Osteoarthritis of multiple joints knees, neck Pain in joint, pelvic region and thigh 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 Tobacco abuse Urinary incontinence, mixed Urinary retention Vitamin D deficiency HPI: Subjective Data: Patient seen today for fu attending therapy no discharge plan, pain controlled no falls + bm + appetite Review of System No reports of or complaints of chest pain, palpitations, shortness of breath, cough, change in bowel habit, abdominal pain, nausea or vomiting. No fevers. No falls. Family/Social History: Unchanged. Medications: see current medication list in [facility] chart, reviewed (Medications in EPIC may not accurate, please see update in [facility] chart) Objective Data: Vital signs reviewed with nurse Visit made with required PPE due to covid. General: Alert, no distress, comfortable, in bed Skin: warm dry no rash seen HEENT: no exudate, lymphadenopathy or masses Chest: CTA good resp effort no distress, cough,sob Abdomen: no distention or masses +bs soft Extremities: no edema, MSK: patient able to move all limbs actively Neuro: A&o 3 Psy: appropriate mood and affect Lab/Diagnosis: I have reviewed this patient's medications and treatment plan, as available, as well as most recent labwork available for review. No off label use of medications. Assessment and Plan: ASSESSMENT/PLAN: 1. Osteoarthritis of multiple joints, unspecified osteoarthritis type - ICD9: 715.89, ICD10: M15.9 (primary diagnosis) Stable pain controlled ambulate daily 2. Essential hypertension - ICD9: 401.9, ICD10: I10 - Controlled - Continue current medications 3. Chronic neck pain - ICD9: 723.1, 338.29, ICD10: M54.2, G89.29 Tramadol bid 4. Abnormal gait - ICD9: 781.2, ICD10: R26.9 Therapy Zora Flores APRN.CNP We will continue to monitor for overall comfort, function and safety. Call for changes in condition. Electronically signed by Zora Flores APRN.CNP September 12, 2022 9:25 AM documented in this encounter [facility] 09-07-2022 History of Present illness Narrative Opened in error documented in this encounter [facility] 09-07-2022 History of Present illness Narrative Images from the original note were not included. Connected Care Unit Progress Note Facility: [facility] Care Level of Care: Skilled SNF Attending: Macarena Bain M.D. Service Date: 09/07/2022 Reason For Visit: for a seen for chronic condition management and medical complexity. Past Medical History: Past Medical Hx: PAST MEDICAL HISTORY Diagnosis Date Abnormal gait Acute neutrophilia Atrophic vaginitis Chronic constipation Cobalamin deficiency Constipation Depressive disorder Dyslipidemia Essential hypertension Falls GERD (gastroesophageal reflux disease) Hip pain Incomplete emptying of bladder Insomnia Late effects of cerebrovascular disease Multiple joint pain Neck pain Nephrolithiasis Osteoarthritis of multiple joints knees, neck Pain in joint, pelvic region and thigh 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 Tobacco abuse Urinary incontinence, mixed Urinary retention Vitamin D deficiency HPI: Subjective Data: Patient seen today for fu no new issues remains in therapy Review of System No reports of or complaints of chest pain, palpitations, shortness of breath, cough, change in bowel habit, abdominal pain, nausea or vomiting. Denies pain or any discomfort. Denies dysuria or change in urinating habit. No change in appetite. No fevers. No falls. Family/Social History: Unchanged. Medications: see current medication list in [facility] chart, reviewed (Medications in [facility] may not accurate, please see update in [facility] chart) Objective Data: Vital signs reviewed with nurse Visit made with required PPE due to covid. General: Alert, no distress, comfortable, in bed Skin: warm dry no rash seen HEENT: no exudate, lymphadenopathy or masses Chest: CTA good resp effort no distress, cough,sob Abdomen: no distention or masses +bs soft Extremities: no edema, MSK: patient able to move all limbs actively Neuro: A&o 3 Psy: appropriate mood and affect Lab/Diagnosis: I have reviewed this patient's medications and treatment plan, as available, as well as most recent labwork available for review. No off label use of medications. Assessment and Plan: ASSESSMENT/PLAN: 1. Osteoarthritis of multiple joints, unspecified osteoarthritis type - ICD9: 715.89, ICD10: M15.9 (primary diagnosis) Pain controlled 2. Essential hypertension - ICD9: 401.9, ICD10: I10 - Controlled - Continue current medications 3. Chronic neck pain - ICD9: 723.1, 338.29, ICD10: M54.2, G89.29 Tramadol 50mg po bid 4. Abnormal gait - ICD9: 781.2, ICD10: R26.9 Therapy Zora Flores APRN.SHERYL We will continue to monitor for overall comfort, function and safety. Call for changes in condition. Electronically signed by Zora Flores APRN.CNP September 07, 2022 9:25 AM documented in this encounter [facility] 08-29-2022 History of Present illness Narrative Images from the original note were not included. Connected Care Unit Progress Note Facility: [facility] Level of Care: Skilled SNF Attending: Macarena Bain M.D. Service Date: 08/29/2022 Reason For Visit: for a seen for chronic condition management and medical complexity. Past Medical History: Past Medical Hx: PAST MEDICAL HISTORY Diagnosis Date Abnormal gait Acute neutrophilia Atrophic vaginitis Chronic constipation Cobalamin deficiency Constipation Depressive disorder Dyslipidemia Essential hypertension Falls GERD (gastroesophageal reflux disease) Hip pain Incomplete emptying of bladder Insomnia Late effects of cerebrovascular disease Multiple joint pain Neck pain Nephrolithiasis Osteoarthritis of multiple joints knees, neck Pain in joint, pelvic region and thigh 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 Tobacco abuse Urinary incontinence, mixed Urinary retention Vitamin D deficiency HPI: Subjective Data: Patient seen today for fu no new issues Review of System No reports of or complaints of chest pain, palpitations, shortness of breath, cough, change in bowel habit, abdominal pain, nausea or vomiting. Denies pain or any discomfort. Denies dysuria or change in urinating habit. No change in appetite. No fevers. No falls. Family/Social History: Unchanged. Medications: see current medication list in [facility] chart, reviewed (Medications in [facility] may not accurate, please see update in [facility] chart) Objective Data: Vital signs reviewed with nurse Visit made with required PPE due to covid. General: Alert, no distress, comfortable, in bed Skin: warm dry no rash seen HEENT: no exudate, lymphadenopathy or masses Chest: CTA good resp effort no distress, cough,sob Abdomen: no distention or masses +bs soft Extremities: no edema, MSK: patient able to move all limbs actively Neuro: A&o 3 Psy: appropriate mood and affect Lab/Diagnosis: I have reviewed this patient's medications and treatment plan, as available, as well as most recent labwork available for review. No off label use of medications. Assessment and Plan: ASSESSMENT/PLAN: 1. Osteoarthritis of multiple joints, unspecified osteoarthritis type - ICD9: 715.89, ICD10: M15.9 (primary diagnosis) Tramadol 50mg po bid renewed 2. Essential hypertension - ICD9: 401.9, ICD10: I10 - Controlled - Continue current medications 3. Chronic neck pain - ICD9: 723.1, 338.29, ICD10: M54.2, G89.29 Tramadol 4. Abnormal gait - ICD9: 781.2, ICD10: R26.9 Therapy Zora Flores APRN.[employer]ATOR We will continue to monitor for overall comfort, function and safety. Call for changes in condition. Electronically signed by Zora Flores APRN.CNP August 29, 2022 9:35 AM documented in this encounter [facility] 08-25-2022 History of Present illness Narrative Images from the original note were not included. Connected Care Unit Progress Note Facility: [facility] Level of Care: Skilled SNF Attending: Macarena Bain M.D. Service Date: 08/25/2022 Reason For Visit: for a seen for chronic condition management and medical complexity. Past Medical History: Past Medical Hx: PAST MEDICAL HISTORY Diagnosis Date Abnormal gait Acute neutrophilia Atrophic vaginitis Chronic constipation Cobalamin deficiency Constipation Depressive disorder Dyslipidemia Essential hypertension Falls GERD (gastroesophageal reflux disease) Hip pain Incomplete emptying of bladder Insomnia Late effects of cerebrovascular disease Multiple joint pain Neck pain Nephrolithiasis Osteoarthritis of multiple joints knees, neck Pain in joint, pelvic region and thigh 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 Tobacco abuse Urinary incontinence, mixed Urinary retention Vitamin D deficiency HPI: Subjective Data: Patient seen today for fu no new issues attending therapy + bm no falls Review of System No reports of or complaints of chest pain, palpitations, shortness of breath, cough, change in bowel habit, abdominal pain, nausea or vomiting. Denies pain or any discomfort. Denies dysuria or change in urinating habit. No change in appetite. No fevers. No falls. Family/Social History: Unchanged. Medications: see current medication list in [facility] chart, reviewed (Medications in [facility] may not accurate, please see update in [facility] chart) Objective Data: Vital signs reviewed with nurse Visit made with required PPE due to covid. General: Alert, no distress, comfortable, in bed Skin: warm dry no rash seen HEENT: no exudate, lymphadenopathy or masses Chest: CTA good resp effort no distress, cough,sob Abdomen: no distention or masses +bs soft Extremities: no edema, MSK: patient able to move all limbs actively Neuro: A&o 3 Psy: appropriate mood and affect Lab/Diagnosis: I have reviewed this patient's medications and treatment plan, as available, as well as most recent labwork available for review. No off label use of medications. Assessment and Plan: ASSESSMENT/PLAN: 1. Essential hypertension - ICD9: 401.9, ICD10: I10 (primary diagnosis) - Controlled - Continue current medications 2. Abnormal gait - ICD9: 781.2, ICD10: R26.9 Therapy 3. Chronic cervical pain - ICD9: 723.1, 338.29, ICD10: M54.2, G89.29 Tramadol bid Zora Flores APRN.[employer] DRAW[employer] OPERATOR We will continue to monitor for overall comfort, function and safety. Call for changes in condition. Electronically signed by Zora Flores APRN.SHERYL August 25, 2022 9:04 AM documented in this encounter [facility] 08-24-2022 History of Present illness Narrative Dior Carvajal : 1965 Correction: [facility] PCP: ODELL Date last seen: 08/15 [employer] DRAW[employer] OPERATOR PAST MEDICAL HISTORY Diagnosis Date Abnormal gait Acute neutrophilia Atrophic vaginitis Chronic constipation Cobalamin deficiency Constipation Depressive disorder Dyslipidemia Essential hypertension Falls GERD (gastroesophageal reflux disease) Hip pain Incomplete emptying of bladder Insomnia Late effects of cerebrovascular disease Multiple joint pain Neck pain Nephrolithiasis Osteoarthritis of multiple joints knees, neck Pain in joint, pelvic region and thigh 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 Tobacco abuse Urinary incontinence, mixed Urinary retention Vitamin D deficiency Current Outpatient Medications Medication Sig traMADol (ULTRAM) 50 mg tablet Take 1 tablet by mouth twice daily for 30 days. atorvastatin (LIPITOR) 20 mg tablet Take 1 tablet by mouth once daily. oxyCODONE IR (ROXICODONE) 5 mg immediate release tablet Take 0.5-1 tablets by mouth twice daily as needed for pain. omeprazole (PRILOSEC) 40 mg capsule Take 1 capsule by mouth once daily. mirabegron (MYRBETRIQ) 50 mg Tb24 Take 1 tablet by mouth once daily. conjugated estrogens (PREMARIN) vaginal cream Use 0.5 g vaginally two times a week. LINZESS 72 mcg capsule Take 1 capsule by mouth once daily. dicyclomine (BENTYL) 20 mg tablet Take 1 tablet by mouth w MEALS. ondansetron orally disintegrating (ZOFRAN ODT) 4 mg disintegrating tablet Take 1 tablet by mouth as needed. carvedilol (COREG) 3.125 mg tablet Take 1 tablet by mouth twice daily with meals. Multivitamin capsule Take 1 capsule by mouth once daily. aspirin 81 mg chewable tablet Take 1 tablet by mouth once daily. No current facility-administered medications for this visit. ALLERGIES Allergen Reactions Aleve [Naproxen] Hives, Itching Iodinated Contrast * Other: See Comments dyspnea Latex Other: See Comments blisters Methadone Unknown Subjective: Dior is a 57 year old female who is not diabetic. Presents today for evaluation and treatment of painful digital nail deformity as well as generalized foot care . Patient has been unable to provide self nail care due to the severe nature of deformity which causes pain and pressure and limits the patients abilty to wear shoe gear without pain. Patient is advised not to attempt self care. Class B Findings: Decrease or absence of hair growth, Skin texture (thin, shiny), and Nail changes (thickening) Objective: Each digital nail on the right 1 and the left 1 is elongated, thickened, ridged, lysing with friable subungual debris which, after debridement from the underlying nail bed, reveals a characteristic fungal/yeast/mold odor and consistency. There is no surrounding cellulitis, deep incurvation, or evidence of bacterial infection. Class findings include diminished pedal pulses, lack of digital pedal hair growth, the above noted nail changes, some telangiectasias. Lower Extremity Edema: no edema. Assessment: Symptomatic onychomycosis digital nails toes 1 Rt 1 Lt. Examination of individual toenails: R5 is normal. R4 is normal. R3 is normal. R2 is normal. R1 is brittle, discolored, dystrophic, elongated, painful, yellow with subungual debris. L1 is brittle, discolored, dystrophic, elongated, painful, yellow, with subungual debris. L2 is normal. L3 is normal. L4 is normal. L5 is normal. Plan: The offending nail margins were mechanically and electrically debrided to the level of normal underlying nail bed with good relief obtained as evidenced by pain free palpation of the digits. The patient will be followed to maintain the length and thickness of their nails as best as possible. Patient relates painful ambulation. We will see her back on an as needed basis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 shortness of breath. Cardiovascular: Negative for chest pain, palpitations and leg swelling. Gastrointestinal: Positive for abdominal pain and heartburn. Negative for constipation and diarrhea. Genitourinary: Negative for dysuria and frequency. Musculoskeletal: Positive for neck pain. Negative for back pain, falls, joint pain and myalgias. Skin: Negative for itching and rash. Neurological: Negative for dizziness, weakness and headaches. Endo/Heme/Allergies: Does not bruise/bleed easily. Psychiatric/Behavioral: Negative for depression and substance abuse. The patient does not have insomnia. Objective BP 118/68 Pulse 74 Temp 36.6 C (97.8 F) Resp 16 Ht 167.6 cm (5' 6) Wt 80.7 kg (178 lb) SpO2 93% BMI 28.73 kg/m Physical Exam Constitutional: Appearance: Normal appearance. HENT: Head: Normocephalic and atraumatic. Nose: Nose normal. Mouth/Throat: Mouth: Mucous membranes are moist. Dentition: Normal dentition. Eyes: General: Lids are normal. Extraocular Movements: Extraocular movements intact. Conjunctiva/sclera: Conjunctivae normal. Pupils: Pupils are equal, round, and reactive to light. Neck: Thyroid: No thyroid mass or thyromegaly. Vascular: No carotid bruit. Trachea: Phonation normal. Cardiovascular: Rate and Rhythm: Normal rate and regular rhythm. Heart sounds: Normal heart sounds. No murmur heard. No friction rub. No gallop. Pulmonary: Effort: Pulmonary effort is normal. Breath sounds: Normal breath sounds. No wheezing or rales. Abdominal: General: Bowel sounds are normal. There is no distension. Palpations: Abdomen is soft. There is no mass. Tenderness: There is no abdominal tenderness. Musculoskeletal: General: No swelling or tenderness. Normal range of motion. Cervical back: Normal range of motion and neck supple. No edema. Lymphadenopathy: Cervical: No cervical adenopathy. Skin: General: Skin is warm and dry. Findings: No erythema or rash. Nails: There is no clubbing. Neurological: Mental Status: She is alert and oriented to person, place, and time. Cranial Nerves: No cranial nerve deficit. Motor: Motor function is intact. Coordination: Coordination normal. Gait: Gait abnormal (in wheelchair). Deep Tendon Reflexes: Reflexes normal. Psychiatric: Attention and Perception: Attention normal. Mood and Affect: Mood and affect normal. Speech: Speech normal. Behavior: Behavior normal. Behavior is cooperative. Thought Content: Thought content normal. Cognition and Memory: Cognition and memory normal. Judgment: Judgment normal. ASSESSMENT/PLAN: 1. Chronic cervical pain - ICD9: 723.1, 338.29, ICD10: M54.2, G89.29 (primary diagnosis) Continue tramadol as needed 2. Chronic abdominal pain - ICD9: 789.00, 338.29, ICD10: R10.9, G89.29 Under the care of Dr. Nieto GI 3. Smoker - ICD9: 305.1, ICD10: F17.200 - Cessation encouraged. - Physiologic and physical aspects of tobacco addiction as well as strategies for quitting were discussed. - Counseling was given focusing on the harmful effects of this addiction especially given the patient's medical condition(s) which will be worsened because of the chemicals in tobacco. Leela Escoto DO PDMP website checked and validated. All prescriptions have been APPROPRIATELY filled. No suspicious activity was identified. 02/24/2022 by Leela Escoto DO documented in this encounter [facility] 02-14-2022 Miscellaneous Notes Patient requesting refills as follows: Last Office Visit 12/02/21. Last Refill 08/15/21 for carvedilol and 01/11/22 for tramadol. Requested Prescriptions Pending Prescriptions Disp Refills traMADol (ULTRAM) 50 mg tablet 60 tablet 0 Sig: Take 1 tablet by mouth twice daily for 30 days. carvedilol (COREG) 3.125 mg tablet 180 tablet 1 Sig: Take 1 tablet by mouth twice daily with meals. Please review and advise. Xochitl Torres MA documented in this encounter [facility] 01-11-2022 Miscellaneous Notes Pt. requesting refills: Last office visit 12/02/2021. Last refill tramadol last filled 12/14/2021 atorvastatin last filled 09/27/2021 nov 02/24/2022 Requested Prescriptions Pending Prescriptions Disp Refills traMADol (ULTRAM) 50 mg tablet 60 tablet 0 Sig: Take 1 tablet by mouth twice daily for 30 days. atorvastatin (LIPITOR) 20 mg tablet 90 tablet 1 Sig: Take 1 tablet by mouth once daily. Please review and advise. Riley Palmer MA documented in this encounter [facility] 12-29-2021 Miscellaneous Notes patient phones requesting refills as follows: Last seen 12/02/21 . Last refill 09/29/21 . Requested Prescriptions Pending Prescriptions Disp Refills mirabegron (MYRBETRIQ) 25 mg Tb24 90 tablet 1 Sig: Take 1 tablet by mouth once daily. Please review and advise. Adalberto Woods MA documented in this encounter [facility] 12-14-2021 Miscellaneous Notes Pt. requesting refills: Last office visit 12/02/21. Last refill 11/14/2021 nov 02/24/22 Requested Prescriptions Pending Prescriptions Disp Refills traMADol (ULTRAM) 50 mg tablet 60 tablet 0 Sig: Take 1 tablet by mouth twice daily for 30 days. Please review and advise. Riley Palmer MA documented in this encounter [facility] 12-02-2021 Note HNO ID: [id number] Author: Leela Escoto, DO Service: ? Author Type: Physician Type: Progress Notes Filed: 12/17/2021 8:31 PM Note Text: SUBJECTIVE: 56 year old female for annual routine checkup. I have fully reviewed the past medical, surgical, social and family history and updated the Histories section of [facility]. Pt has history of chronic arthritis She takes tramadol bid for the pain She states this is not quite enough, but she does not want to become addicted to the medication She admits she will never be pain free Pain today is 4/10. Pain at its worst is 9/10 Pain is mostly in her neck She will see GI in [place] on 12/13 She has a history of chronic constipation and today has burning in her stomach She takes omeprazole for GERD She also has history of hypertension, GERD and hyperlipidemia. She smokes 1/4 PPD No LMP recorded. Patient has had a hysterectomy. ALLERGIES Allergen Reactions Aleve [Naproxen] Hives, Itching Iodinated Contrast * Other: See Comments dyspnea Latex Other: See Comments blisters Methadone Unknown Current Outpatient Medications Medication Sig Dispense Refill omeprazole (PRILOSEC) 40 mg capsule Take 1 capsule by mouth once daily. 90 capsule 1 traMADol (ULTRAM) 50 mg tablet Take 1 tablet by mouth twice daily for 30 days. 60 tablet 0 mirabegron (MYRBETRIQ) 25 mg Tb24 Take 1 tablet by mouth once daily. 90 tablet 1 atorvastatin (LIPITOR) 20 mg tablet Take 1 tablet by mouth once daily. 90 tablet 1 carvedilol (COREG) 3.125 mg tablet Take 1 tablet by mouth twice daily with meals. 180 tablet 1 Multivitamin capsule Take 1 capsule by mouth once daily. aspirin 81 mg chewable tablet Take 1 tablet by mouth once daily. 90 tablet 3 ESTRACE 0.01 % (0.1 mg/gram) vaginal cream Use 1 g vaginally twice a week. 1 Tube 3 No current facility-administered medications for this visit. ACTIVE PROBLEM LIST Urinary Incontinence, Mixed Osteoarthritis of Multiple Joints Essential Hypertension Abnormal Gait Constipation Dyslipidemia Multiple Joint Pain Tobacco Abuse Social History Tobacco Use Smoking status: Every Day Packs/day: 0.25 Years: 35.00 Pack years: 8.75 Types: Cigarettes Start date: 03/26/1979 Smokeless tobacco: Never Vaping Use Vaping Use: Never used Substance Use Topics Alcohol use: Not Currently Drug use: No Family History Problem Relation Age of Onset COPD Mother Heart Father irregular heartbeat Thyroid Sister non cancerous Reviewed past medical history, family history and surgeries. All medications and supplements were reviewed with the patient. REVIEW OF SYSTEMS GENERAL: No weight loss, malaise or fevers HEENT: Negative for frequent or significant headaches, No changes in hearing or vision, no nose bleeds or other nasal problems NECK: Negative for lumps, goiter, pain and significant neck swelling RESPIRATORY: Negative for cough, hemoptysis, wheezing, COPD, dyspnea or shortness of breath CARDIOVASCULAR: Negative for chest pain, leg swelling, hypertension, CHF or palpitations GI: Positive for heartburn, constipation, no nausea, vomiting, or diarrhea : No history of dysuria, frequency or incontinence MUSCULOSKELETAL: Negative for joint pain or swelling, back pain or muscle pain SKIN: Negative for lesions, rash, and itching PSYCH: Negative for sleep disturbance, mood disorder and recent psychosocial stressors HEMATOLOGY/LYMPHOLOGY: Negative for prolonged bleeding, bruising easily or swollen nodes ENDOCRINE: Negative for cold or heat intolerance, polyuria, polydipsia and goiter NEURO: No history of headaches, syncope, paralysis, seizures or tremors PHYSICAL EXAMINATION: BP 110/68 (BP Site: Right Arm, BP Position: Sitting, BP Cuff Size: Regular Adult) Pulse 79 Temp 36.6 ?C (97.9 ?F) Resp 16 Ht 167.6 cm (5' 6) Wt 80.9 kg (178 lb 6.4 oz) SpO2 93% BMI 28.79 kg/m? General appearance: Well appearing, alert, in no acute distress, well-hydrated, well nourished. Skin: Skin color, texture, turgor normal, no suspicious rashes or lesions Head: Normocephalic, no masses, lesions, tenderness or abnormalities Eyes: Anicteric sclera. Pupils are equally round and reactive to light. Extraocular movements are intact. Ears: External ears normal, canals clear Nose/Sinuses: Nares normal, septum midline, mucosa normal, no drainage or sinus tenderness Oropharynx: Lips, mucosa, and tongue normal, teeth and gums normal, oropharynx normal Neck: Supple, no adenopathy; thyroid symmetric, normal size, no bruits Back: Normal exam Lungs: Lungs clear to auscultation. No wheezing, rhonchi, rales. Heart: RRR without murmur, gallop, or rubs. No ectopy Abdomen: Normal abdominal exam, Abdomen soft, non-tender. Bowel sounds normal. No masses, organomegaly Extremities: No deformities, edema, skin discoloration, clubbing or cyanosis. Good capillary refill. Musculoskeletal: No join (more content not included)... [facility] 11-24-2021 Miscellaneous Notes patient phones requesting refills as follows: Last seen 08/26/21 . Last refill 05/10/21 . Requested Prescriptions Pending Prescriptions Disp Refills omeprazole (PRILOSEC) 40 mg capsule 90 capsule 1 Sig: Take 1 capsule by mouth once daily. Please review and advise. Adalberto Woods MA documented in this encounter [facility] 11-11-2021 Miscellaneous Notes patient phones requesting refills as follows: Last seen 09/22/21 . Last refill 10/11/21 . Requested Prescriptions Pending Prescriptions Disp Refills traMADol (ULTRAM) 50 mg tablet 60 tablet 0 Sig: Take 1 tablet by mouth twice daily for 30 days. Please review and advise. Adalberto Woods MA documented in this encounter [facility] 10-11-2021 Miscellaneous Notes patient phones requesting refills as follows: Last seen 08/26/21 . Last refill 09/14/21 . Pending Prescriptions Disp Refills TRAMADOL 50 MG TABLET 60 tablet 0 Sig: Take 1 tablet by mouth twice daily for 30 days. ANNA Class: C-IV KEVON: No Please review and advise. Adalberto Woods MA documented in this encounter [facility] 09-29-2021 Miscellaneous Notes Last OV 08/26/21 Apt 12/02/21 Patient phones requesting refills as follows: Pending Prescriptions Disp Refills MIRABEGRON ER 25 MG TABLET,EXTENDED RELEASE 24 HR 90 tablet 1 Sig: Take 1 tablet by mouth once daily. KEVON: No Please review and advise. Carmelita Hummel MA documented in this encounter [facility] 09-27-2021 Miscellaneous Notes Pharmacy requesting refills as follows: Last Office Visit 08/26/21 nov 12/02/21. Last Refill 04/08/21. Pending Prescriptions Disp Refills ATORVASTATIN 20 MG TABLET 90 tablet 1 Sig: Take 1 tablet by mouth once daily. KEVON: No Please review and advise. Xochitl Torres MA documented in this encounter [facility] 09-14-2021 Miscellaneous Notes Patient requesting refills: Last office visit 08/26/2021. Last refill 08/08/2021 nov 12/02/2021 Pending Prescriptions Disp Refills TRAMADOL 50 MG TABLET 60 tablet 0 Sig: Take 1 tablet by mouth twice daily for 30 days. ANNA Class: C-IV KEVON: No Please review and advise. Riley Palmer MA documented in this encounter [facility] 08-08-2021 Miscellaneous Notes Patient requesting refills: Last office visit 05/26/2021 Last refill 07/11/2021 Nov 08/26/2021 Pending Prescriptions Disp Refills TRAMADOL 50 MG TABLET 60 tablet 0 Sig: Take 1 tablet by mouth twice daily for 30 days. ANNA Class: C-IV KEVON: No Please review and advise. Riley Palmer MA documented in this encounter [facility] 07-11-2021 Miscellaneous Notes Last OV 05/26/21 Apt 08/26/21 UDS 11/16/20 Pharmacy calls in requesting the following refill(s): Pending Prescriptions Disp Refills TRAMADOL 50 MG TABLET 60 tablet 0 Sig: Take 1 tablet by mouth twice daily for 30 days. ANNA Class: C-IV KEVON: No Carmelita Hummel MA documented in this encounter [facility] 06-27-2021 Miscellaneous Notes Last OV 05/26/21 Apt 08/26/21 Labs 06/23/21 Patient phones requesting refills as follows: Pending Prescriptions Disp Refills [facility] 25 MG TABLET,EXTENDED RELEASE 24 HR 90 tablet 1 Sig: Take 1 tablet by mouth once daily. KEVON: No Please review and advise. Carmelita Hummel MA documented in this encounter [facility] 06-23-2021 Miscellaneous Notes Patient informed. Xochitl Torres MA ----- Message from Orin Smith MD sent at 06/23/2021 2:04 PM EDT ----- Patient's triglycerides are slightly elevated. Continue to monitor diet. Remaining cholesterol and other labs are fairly unremarkable. documented in this encounter [facility] Evaluation note Diagnosis Overactive bladder Hypertonicity of bladder [facility] Diagnosis Osteoarthritis of multiple joints, unspecified osteoarthritis type Chronic neck pain Cervicalgia [facility] Diagnosis Osteoarthritis of multiple joints, unspecified osteoarthritis type Chronic neck pain Cervicalgia [facility] Diagnosis Osteoarthritis of multiple joints, unspecified osteoarthritis type Chronic neck pain Cervicalgia [facility] Diagnosis Pure hypercholesterolemia [facility] Diagnosis Osteoarthritis of multiple joints, unspecified osteoarthritis type Chronic neck pain Cervicalgia [facility] Osteoarthritis of multiple joints, unspecified osteoarthritis type Chronic neck pain Cervicalgia [facility] Diagnosis Overactive bladder Hypertonicity of bladder [facility] Diagnosis Osteoarthritis of multiple joints, unspecified osteoarthritis type Chronic neck pain Cervicalgia Pure hypercholesterolemia [facility] Diagnosis Osteoarthritis of multiple joints, unspecified osteoarthritis type Chronic neck pain Cervicalgia Essential hypertension Unspecified essential hypertension [facility] Diagnosis Chronic cervical pain- Primary Cervicalgia Chronic abdominal pain Abdominal pain, unspecified site Smoker Tobacco use disorder [facility] Diagnosis Osteoarthritis of multiple joints, unspecified osteoarthritis type Chronic neck pain Cervicalgia [facility] Diagnosis Urine retention- Primary Retention of urine, unspecified Acute cystitis without hematuria Acute cystitis Urge incontinence [facility] Diagnosis Overactive bladder- Primary Hypertonicity of bladder Urine retention Retention of urine, unspecified Frequent UTI Urinary tract infection, site not specified Atrophic vaginitis Postmenopausal atrophic vaginitis [facility] Diagnosis Osteoarthritis of multiple joints, unspecified osteoarthritis type Chronic neck pain Cervicalgia [facility] Diagnosis Heartburn documented in this encounter [facility] note* Diagnosis Essential hypertension- Primary Unspecified essential hypertension Chronic cervical pain Cervicalgia Grief Adjustment disorder with depressed mood Smoker Tobacco use disorder Encounter for immunization Need for other specified prophylactic vaccination against single bacterial disease documented in this encounter [facility] note* Diagnosis Osteoarthritis of multiple joints, unspecified osteoarthritis type Chronic neck pain Cervicalgia documented in this encounter [facility] note* Diagnosis Osteoarthritis of multiple joints, unspecified osteoarthritis type Chronic neck pain Cervicalgia documented in this encounter [facility] note* Diagnosis Pure hypercholesterolemia documented in this encounter [facility] note* Diagnosis Primary osteoarthritis involving multiple joints- Primary documented in this encounter [facility] note* Diagnosis Essential hypertension- Primary Unspecified essential hypertension Abnormal gait Abnormality of gait Chronic cervical pain Cervicalgia documented in this encounter [facility] note* Diagnosis Pain due to onychomycosis of toenail of right foot- Primary Pain due to onychomycosis of toenail of left foot Aspirin long-term use Encounter for long-term (current) use of aspirin documented in this encounter [facility] note* Diagnosis Essential hypertension- Primary Unspecified essential hypertension Abnormal gait Abnormality of gait Chronic cervical pain Cervicalgia documented in this encounter [facility] note* Diagnosis Osteoarthritis of multiple joints, unspecified osteoarthritis type Chronic neck pain Cervicalgia documented in this encounter [facility] note* Diagnosis Osteoarthritis of multiple joints, unspecified osteoarthritis type- Primary Essential hypertension Unspecified essential hypertension Chronic neck pain Cervicalgia Abnormal gait Abnormality of gait documented in this encounter [facility] note* Diagnosis Osteoarthritis of multiple joints, unspecified osteoarthritis type- Primary Essential hypertension Unspecified essential hypertension Chronic neck pain Cervicalgia Abnormal gait Abnormality of gait documented in this encounter [facility] note* Diagnosis OPENED IN ERROR- Primary To allow closing an encounter opened in error (used in SmartSet) documented in this encounter [facility] note* Diagnosis Osteoarthritis of multiple joints, unspecified osteoarthritis type Chronic neck pain Cervicalgia documented in this encounter [facility] note* Diagnosis Nail dystrophy- Primary Other specified disease of nail Aspirin long-term use Encounter for long-term (current) use of aspirin documented in this encounter [facility] note* Diagnosis Osteoarthritis of multiple joints, unspecified osteoarthritis type- Primary Chronic neck pain Cervicalgia Essential hypertension Unspecified essential hypertension documented in this encounter [facility] note* Diagnosis Nail dystrophy- Primary Other specified disease of nail Aspirin long-term use Encounter for long-term (current) use of aspirin documented in this encounter [facility] note* Diagnosis Osteoarthritis of multiple joints, unspecified osteoarthritis type- Primary Chronic neck pain Cervicalgia Essential hypertension Unspecified essential hypertension [facility] Diagnosis Osteoarthritis of multiple joints, unspecified osteoarthritis type Chronic neck pain Cervicalgia documented in this encounter [facility] note* Diagnosis Osteoarthritis of multiple joints, unspecified osteoarthritis type- Primary Left hip pain Pain in joint, pelvic region and thigh [facility]* Diagnosis Nail dystrophy- Primary Other specified disease of nail Aspirin long-term use Encounter for long-term (current) use of aspirin documented in this encounter [facility] note* Diagnosis Osteoarthritis of multiple joints, unspecified osteoarthritis type- Primary Left hip pain Pain in joint, pelvic region and thigh Chronic neck pain Cervicalgia Essential hypertension Unspecified essential hypertension documented in this encounter [facility] note* Diagnosis Leukocytosis, unspecified type- Primary Confusion Unspecified psychosis documented in this encounter [facility] note* Diagnosis Foul smelling urine- Primary Other nonspecific finding on examination of urine [facility]* Diagnosis Osteoarthritis of multiple joints, unspecified osteoarthritis type- Primary Essential hypertension Unspecified essential hypertension Chronic cervical pain Cervicalgia [facility]* Diagnosis Foul smelling urine- Primary Other nonspecific finding on examination of urine Recurrent UTI Urinary tract infection, site not specified documented in this encounter [facility] note* Diagnosis Brain lesion [G93.9]- Primary Other conditions of brain documented in this encounter [facility] note* Diagnosis Fall, initial encounter- Primary [facility]* 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, unspecified site Hemiparesis, unspecified hemiparesis etiology, unspecified laterality (HCC) Mild cognitive impairment Mild cognitive impairment, so stated Cognitive decline Unspecified persistent mental disorders due to conditions classified elsewhere documented in this encounter [facility] note* Diagnosis Astrocytoma (HCC)- Primary Malignant neoplasm of brain, unspecified site [facility]* Diagnosis Chronic cervical pain- Primary Cervicalgia [facility]* Diagnosis Nail dystrophy- Primary Other specified disease of nail Aspirin long-term use Encounter for long-term (current) use of aspirin [facility]* Diagnosis Fall, initial encounter- Primary [facility] Diagnosis Osteoarthritis involving multiple joints on both sides of body- Primary [facility]* Diagnosis Astrocytoma (HCC) Malignant neoplasm of brain, unspecified site 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, unspecified site Cognitive decline Unspecified persistent mental disorders due to conditions classified elsewhere 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, unspecified site Cognitive decline Unspecified persistent mental disorders due to conditions classified elsewhere [facility]* Diagnosis Astrocytoma (HCC) Malignant neoplasm of brain, unspecified site 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, unspecified site Cognitive decline Unspecified persistent mental disorders due to conditions classified elsewhere [facility]* Diagnosis Allergy to intravenous contrast media- Primary Allergy, unspecified not elsewhere classified 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, unspecified site Mild cognitive impairment Mild cognitive impairment, so stated Cognitive decline Unspecified persistent mental disorders due to conditions classified elsewhere Occlusion and stenosis of unspecified carotid artery Pathological fracture, other site, initial encounter for fracture Injury of cervical spinal cord, sequela (HCC) Quadriplegia (HCC) Quadriplegia, unspecified [facility]* 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, unspecified site [facility]* Diagnosis Allergy to intravenous contrast media Allergy, unspecified not elsewhere classified 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, unspecified site Mild cognitive impairment Mild cognitive impairment, so stated Cognitive decline Unspecified persistent mental disorders due to conditions classified elsewhere [facility]* Diagnosis Acute cystitis without hematuria- Primary Acute cystitis [facility] Diagnosis Allergy to intravenous contrast media Allergy, unspecified not elsewhere classified 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, unspecified site Mild cognitive impairment Mild cognitive impairment, so stated Cognitive decline Unspecified persistent mental disorders due to conditions classified elsewhere [facility]* Diagnosis Brain tumor (HCC)- Primary Neoplasm of unspecified nature of brain [facility]* 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)- Primary Allergy to intravenous contrast media Allergy, unspecified not elsewhere classified 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, unspecified site Mild cognitive impairment Mild cognitive impairment, so stated Cognitive decline Unspecified persistent mental disorders due to conditions classified elsewhere Spondylosis of cervical joint Cervical spondylosis without myelopathy Injury of cervical spinal cord, sequela (HCC) H/O laminectomy Other postprocedural status [facility]* Diagnosis Allergy to intravenous contrast media Allergy, unspecified not elsewhere classified 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, unspecified site Mild cognitive impairment Mild cognitive impairment, so stated Cognitive decline Unspecified persistent mental disorders due to conditions classified elsewhere Occlusion and stenosis of unspecified carotid artery Pathological fracture, other site, initial encounter for fracture Injury of cervical spinal cord, sequela (HCC) Quadriplegia (HCC) Quadriplegia, unspecified [facility]* 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, unspecified site Allergy to intravenous contrast media Allergy, unspecified not elsewhere classified 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, unspecified site Mild cognitive impairment Mild cognitive impairment, so stated Cognitive decline Unspecified persistent mental disorders due to conditions classified elsewhere Occlusion and stenosis of unspecified carotid artery Pathological fracture, other site, initial encounter for fracture [facility] Diagnosis Hyperlipidemia, unspecified hyperlipidemia type- Primary Allergy to intravenous contrast media Allergy, unspecified not elsewhere classified 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, unspecified site Mild cognitive impairment Mild cognitive impairment, so stated Cognitive decline Unspecified persistent mental disorders due to conditions classified elsewhere Occlusion and stenosis of unspecified carotid artery Pathological fracture, other site, initial encounter for fracture Injury of cervical spinal cord, sequela (HCC) Quadriplegia (HCC) Quadriplegia, unspecified [facility]* 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, unspecified site documented [facility]* 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)- Primary Spondylosis of cervical joint Cervical spondylosis without myelopathy Cognitive decline Unspecified persistent mental disorders due to conditions classified elsewhere Mild cognitive impairment Mild cognitive impairment, so stated Injury of cervical spinal cord, sequela (HCC) Quadriplegia (HCC) Quadriplegia, unspecified Hemiparesis, unspecified hemiparesis etiology, unspecified laterality (HCC) Pathological fracture, other site, initial encounter for fracture Occlusion and stenosis of unspecified carotid artery Muscle spasticity Spasm of muscle documented in this encounter [facility] noteNo assessment information availableWMercy [facility] Work Phone: Evaluation note* 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, unspecified site documented in this encounter [facility] note* Diagnosis Spasticity- Primary Abnormal involuntary movements 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, unspecified site documented in this encounter [facility] note* 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, unspecified site documented in this encounter [facility] note* 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, unspecified site documented in this encounter [facility] note* 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 Unspecified monoplegia Spasticity Abnormal involuntary movements History of brain tumor Personal history of other disorders of nervous system and sense organs History of stroke Transient ischemic attack (TIA), and cerebral infarction without residual deficits documented in this encounter [facility] note* 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, unspecified site Spasticity Abnormal involuntary movements Cognitive decline Unspecified persistent mental disorders due to conditions classified elsewhere documented in this encounter [facility] note* Diagnosis Glioblastoma (HCC)- Primary Malignant neoplasm of brain, unspecified site documented in this encounter [facility] for referral (narrative)* Diagnostic Procedure Only (Routine) - New Request Specialty Diagnoses / Procedures Referred By Contac t Referred To Contact XR IMAGING Diagnoses Allergy to intravenous contrast media Anaplastic astrocytoma (HCC) Mild cognitive impairment Cognitive decline Occlusion and stenosis of unspecified carotid artery Pathological fracture, other site, initial encounter for fracture Injury of cervical spinal cord, sequela (HCC) Quadriplegia (HCC) Procedures XR CERVICAL 2V FLEX/EXT RADEX SPINE CERVICAL 2 OR 3 VIEWS Mini Whyte MD [address] [address] X[facility] [place] [address] Referral ID Status Reason Start Date Expiration Date Visits Requested Visits Authorized [id number] New Request Auto-Generat ed Referral 4 04/03/2025 1 1 * Consult, Test, Treat (Routine) - Authorized Specialty Diagnoses / Procedures Referred By Contac t Referred To Contact Neurology Diagnoses Allergy to intravenous contrast media Anaplastic astrocytoma (HCC) Mild cognitive impairment Cognitive decline Occlusion and stenosis of unspecified carotid artery Pathological fracture, other site, initial encounter for fracture Injury of cervical spinal cord, sequela (HCC) Quadriplegia (HCC) Procedures CONSULT TO NEUROLOGY OFFICE/OUTPATIENT [facility] 60 MINUTES Mini Whyte MD [address] [place] [id number] [address] Referral ID Status Reason Start Date Expiration Date Visits Requested Visits Authorized [id number] Authorized PCP Requested Referral 4 03/04/2025 1 1 * Consult, Test, Treat (Routine) - Authorized Specialty Diagnoses / Procedures Referred By Contac t Referred To Contact Spine [place] Diagnoses Allergy to intravenous contrast media Anaplastic astrocytoma (HCC) Mild cognitive impairment Cognitive decline Occlusion and stenosis of unspecified carotid artery Pathological fracture, other site, initial encounter for fracture Injury of cervical spinal cord, sequela (HCC) Quadriplegia (HCC) Procedures CONSULT TO [facility] OFFICE/OUTPATIENT [facility] 60 MINUTES Mini Whyte MD [address] [place] [address] [place] [id number] [place] [address] Referral ID Status Reason Start Date Expiration Date Visits Requested Visits Authorized [id number] Authorized PCP Requested Referral 4 03/04/2025 1 1 * Consult, Test, Treat (Routine) - Authorized Specialty Diagnoses / Procedures Referred By Contac t Referred To Contact Neurology Diagnoses Allergy to intravenous contrast media Anaplastic astrocytoma (HCC) Mild cognitive impairment Cognitive decline Occlusion and stenosis of unspecified carotid artery Pathological fracture, other site, initial encounter for fracture Injury of cervical spinal cord, sequela (HCC) Quadriplegia (HCC) Procedures CONSULT TO NEUROLOGY OFFICE/OUTPATIENT [facility] 60 MINUTES Mini Whyte MD [address] [address] [facility] [address] [place] [address] Referral ID Status Reason Start Date Expiration Date Visits Requested Visits Authorized [id number] Authorized PCP Requested Referral 03/04/2025 1 1 * MRI/CT (Routine) - New Request Specialty Diagnoses / Procedures Referred By Evetteac t Referred To Contact MR IMAGING Diagnoses Allergy to intravenous contrast media Anaplastic astrocytoma (HCC) Mild cognitive impairment Cognitive decline Occlusion and stenosis of unspecified carotid artery Pathological fracture, other site, initial encounter for fracture Procedures MRI CERVICAL SPINE WO/W IVCON MRI SPINAL CANAL CERVICAL W/O & W/CONTR MATRL Mini Whyte MD [address] [address] Mr Imaging [facility]95 Referral ID Status Reason Start Date Expiration Date Visits Requested Visits Authorized [id number] New Request Auto-Generat ed Referral 04/03/2025 1 1 * MRI/CT (Routine) - New Request Specialty Diagnoses / Procedures Referred By Contac t Referred To Contact MR IMAGING Diagnoses Allergy to intravenous contrast media Anaplastic astrocytoma (HCC) Mild cognitive impairment Cognitive decline Occlusion and stenosis of unspecified carotid artery Pathological fracture, other site, initial encounter for fracture Procedures MRA CAROTID WO IVCON MRA, NECK; W/O CONTRAST Mini Whyte MD [address] [place] [address] Mr [facility] [place] [address] Referral ID Status Reason Start Date Expiration Date Visits Requested Visits Authorized [id number] New Request Auto-Generat ed Referral 4 04/03/2025 1 1 * MRI/CT (Routine) - New Request Specialty Diagnoses / Procedures Referred By Contac t Referred To Contact MR IMAGING Diagnoses Allergy to intravenous contrast media Anaplastic astrocytoma (HCC) Mild cognitive impairment Cognitive decline Occlusion and stenosis of unspecified carotid artery Pathological fracture, other site, initial encounter for fracture Procedures MRA BRAIN WO IVCON MRA, HEAD W/O CONTRAST Mini Whyte MD [address] [place] [address] Mr [facility] [place] [address] Referral ID Status Reason Start Date Expiration Date Visits Requested Visits Authorized [id number] New Request Auto-Generat ed Referral 04/03/2025 1 1 [facility]No reason for referral information availableWMercy [facility] Work Phone: Reason for visit Narrative* Diagnostic Procedure Only (Routine) - Closed Specialty Diagnoses / Procedures Referred By Contac t Referred To Contact XR IMAGING Diagnoses Allergy to intravenous contrast media Anaplastic astrocytoma (HCC) Mild cognitive impairment Cognitive decline Occlusion and stenosis of unspecified carotid artery Pathological fracture, other site, initial encounter for fracture Injury of cervical spinal cord, sequela (HCC) Quadriplegia (HCC) Procedures XR CERVICAL 2V FLEX/EXT RADEX SPINE CERVICAL 2 OR 3 VIEWS Mini Whyte MD [address] [place] [address] Phone: tel: fax: XR IMAGING [id number] Referral ID Status Reason Start Date Expiration Date V isits Requested Visits Authorized [id number] Closed Auto-Generate d Referral 03/04/2024 04/03/2025 1 1 [facility] for visit Narrative* MRI/CT (Routine) - Closed Specialty Diagnoses / Procedures Referred By Jaycee t Referred To Contact MR IMAGING Diagnoses Anaplastic astrocytoma (HCC) Procedures MRI BRAIN WO/W IVCON MRI BRAIN BRAIN STEM W/O W/CONTRAST MATERIAL Mini Whyte MD [address] [place] [address] Phone: tel: fax: MR IMAGING [place] [id number] Referral ID Status Reason Start Date Expiration Date V isits Requested Visits Authorized [id number] Closed Auto-Generate d Referral 05/28/2024 06/27/2025 1 1 [facility] for visit Narrative* MRI/CT (Routine) - Closed Specialty Diagnoses / Procedures Referred By Jaycee t Referred To Contact MR IMAGING Diagnoses Astrocytoma brain tumor (HCC) Procedures MRI BRAIN WO/W IVCON MRI BRAIN BRAIN STEM W/O W/CONTRAST MATERIAL Mini Whyte MD [address] [place] [place] [address] Phone: tel: fax: MR IMAGING [place] [id number] Referral ID Status Reason Start Date Expiration Date V isits Requested Visits Authorized [id number] Closed Auto-Generate d Referral 08/05/2024 09/04/2025 1 1 [facility] Summary Purpose Family History No Family History Records FoundNo Family History Records FoundNo Family History Records FoundNo Family History Records FoundNo Family History Records Found Advance Directives No Advanced Directives Records FoundNo Advanced Directives Records FoundNo Advanced Directives Records FoundNo Advanced Directives Records FoundNo Advanced Directives Records Found Reason for Referral Specialty Diagnoses / Procedures Referred By Jaycee t Referred To Contact Diagnoses Anaplastic astrocytoma (HCC) Hemiparesis, unspecified hemiparesis etiology, unspecified laterality (HCC) Cognitive decline Procedures NEUROPSYCHOLOGICAL TESTING CONSULT NEUROBEHAVIORAL STATUS XM PHYS/QHP 1ST HOUR NEUROPSYCHOLOGICAL TST EVAL PHYS/QHP 1ST HOUR NEUROPSYCHOLOGICAL TST EVAL PHYS/QHP EA ADDL HR PSYCL/NRPSYCL TST TECH 2+ TST 1ST 30 MIN PSYCL/NRPSYCL TST TECH 2+ TST EA ADDL 30 MIN Mini Whyte MD [address] [address] [facility] [address] [place] [address] Referral ID Status Reason Start Date Expiration Date Visits Requested Visits Authorized [id number] Ref Not Required PCP Requested Referral 4 01/20/2025 1 3 Specialty Diagnoses / Procedures Referred By Contac t Referred To Contact MR IMAGING Diagnoses Astrocytoma (HCC) Procedures MRI BRAIN WO/W IVCON MRI BRAIN BRAIN STEM W/O W/CONTRAST MATERIAL Mini Whyte MD [address] [address] [facility] [place] [id number] Referral ID Status Reason Start Date Expiration Date Visits Requested Visits Authorized [id number] Authorized Auto-Generat ed Referral 4 02/21/2025 1 1 Specialty Diagnoses / Procedures Referred By Contac t Referred To Contact MR IMAGING Diagnoses Anaplastic astrocytoma (HCC) Cognitive decline Procedures MRI BRAIN WO IVCON MRI BRAIN BRAIN STEM W/O CONTRAST MATERIAL Mini Whyte MD [address] [id number] [facility] [place] [id number] Referral ID Status Reason Start Date Expiration Date Visits Requested Visits Authorized [id number] New Request Auto-Generat ed Referral 02/28/2024 03/29/2025 1 1 Specialty Diagnoses / Procedures Referred By Contac t Referred To Contact MR IMAGING Diagnoses Astrocytoma brain tumor (HCC) Procedures MRI BRAIN WO/W IVCON MRI BRAIN BRAIN STEM W/O W/CONTRAST MATERIAL Mini Whyte MD [address] [address] [id number] Referral ID Status Reason Start Date Expiration Date Visits Requested Visits Authorized [id number] Authorized Auto-Generat ed Referral 04/03/2025 1 1 Chief Complaint and Reason for Visit Chief Complaint Admit Date LABWORK March 27, 2024 7: 20am LONGTERM LAB WORK March 28, 2024 4:00am LONGTERM LAB WORK March 31, 2024 5:00am COGNITIVE DECLINE, POST SPINAL CORD SURG JOSEPHINE April 29, 2024 11:28am Chief Complaint Admit Date COGNITIVE DECLINE, POST SPINAL CORD SURG JOSEPHINE April 29, 2024 11:28am LABWORK August 07, 2024 5:00a m LABWORK August 08, 2024 5:00a m LONGTERM LAB WORK August 13, 2024 4:0 0am Additional Source Comments INFORMATION SOURCE (unrecogn ized section and content) DATE CREATED AUTHOR 06/22/2020 [facility] DATE CREATED AUTHOR AUTHOR'S ORGANIZ ATION 01/21/2022 [facility] DATE CREATED AUTHOR AUTHOR'S ORGANIZ ATION 08/07/2022 [facility] DATE CREATED AUTHOR AUTHOR'S ORGANIZ ATION 09/02/2024 [facility] DATE CREATED AUTHOR AUTHOR'S ORGANIZ ATION 11/14/2024 [facility] Source Comments (unrecognize d section and content) In the event this informatio n is protected by the Federal Confidentiality of Alcohol and Drug Abuse Patient Records regulations: The Federal rules restrict any use of the information to criminally investigate or prosecute any alcohol or drug abuse patient.[facility] the event this information is protected by the Federal Confidentiality of Alcohol and Drug Abuse Patient Records regulations: The Federal rules restrict any use of the information to criminally investigate or prosecute any alcohol or drug abuse patient.[facility] HospitalIn the event this information is protected by the Federal Confidentiality of Alcohol and Drug Abuse Patient Records regulations: The Federal rules restrict any use of the information to criminally investigate or prosecute any alcohol or drug abuse patient.[facility] HospitalIn the event this information is protected by the Federal Confidentiality of Alcohol and Drug Abuse Patient Records regulations: The Federal rules restrict any use of the information to criminally investigate or prosecute any alcohol or drug abuse patient.[facility] HospitalIn the event this information is protected by the Federal Confidentiality of Alcohol and Drug Abuse Patient Records regulations: The Federal rules restrict any use of the information to criminally investigate or prosecute any alcohol or drug abuse patient.[facility] HospitalIn the event this information is protected by the Federal Confidentiality of Alcohol and Drug Abuse Patient Records regulations: The Federal rules restrict any use of the information to criminally investigate or prosecute any alcohol or drug abuse patient.[facility] HospitalIn the event this information is protected by the Federal Confidentiality of Alcohol and Drug Abuse Patient Records regulations: The Federal rules restrict any use of the information to criminally investigate or prosecute any alcohol or drug abuse patient.[facility] HospitalIn the event this information is protected by the Federal Confidentiality of Alcohol and Drug Abuse Patient Records regulations: The Federal rules restrict any use of the information to criminally investigate or prosecute any alcohol or drug abuse patient.[facility] HospitalIn the event this information is protected by the Federal Confidentiality of Alcohol and Drug Abuse Patient Records regulations: The Federal rules restrict any use of the information to criminally investigate or prosecute any alcohol or drug abuse patient.[facility] HospitalIn the event this information is protected by the Federal Confidentiality of Alcohol and Drug Abuse Patient Records regulations: The Federal rules restrict any use of the information to criminally investigate or prosecute any alcohol or drug abuse patient.[facility] HospitalIn the event this information is protected by the Federal Confidentiality of Alcohol and Drug Abuse Patient Records regulations: The Federal rules restrict any use of the information to criminally investigate or prosecute any alcohol or drug abuse patient.[facility] HospitalIn the event this information is protected by the Federal Confidentiality of Alcohol and Drug Abuse Patient Records regulations: The Federal rules restrict any use of the information to criminally investigate or prosecute any alcohol or drug abuse patient.[facility] HospitalIn the event this information is protected by the Federal Confidentiality of Alcohol and Drug Abuse Patient Records regulations: The Federal rules restrict any use of the information to criminally investigate or prosecute any alcohol or drug abuse patient.[facility] HospitalIn the event this information is protected by the Federal Confidentiality of Alcohol and Drug Abuse Patient Records regulations: The Federal rules restrict any use of the information to criminally investigate or prosecute any alcohol or drug abuse patient.[facility] HospitalIn the event this information is protected by the Federal Confidentiality of Alcohol and Drug Abuse Patient Records regulations: The Federal rules restrict any use of the information to criminally investigate or prosecute any alcohol or drug abuse patient.[facility] HospitalIn the event this information is protected by the Federal Confidentiality of Alcohol and Drug Abuse Patient Records regulations: The Federal rules restrict any use of the information to criminally investigate or prosecute any alcohol or drug abuse patient.[facility] HospitalIn the event this information is protected by the Federal Confidentiality of Alcohol and Drug Abuse Patient Records regulations: The Federal rules restrict any use of the information to criminally investigate or prosecute any alcohol or drug abuse patient.[facility] HospitalIn the event this information is protected by the Federal Confidentiality of Alcohol and Drug Abuse Patient Records regulations: The Federal rules restrict any use of the information to criminally investigate or prosecute any alcohol or drug abuse patient.[facility] HospitalIn the event this information is protected by the Federal Confidentiality of Alcohol and Drug Abuse Patient Records regulations: The Federal rules restrict any use of the information to criminally investigate or prosecute any alcohol or drug abuse patient.[facility] HospitalIn the event this information is protected by the Federal Confidentiality of Alcohol and Drug Abuse Patient Records regulations: The Federal rules restrict any use of the information to criminally investigate or prosecute any alcohol or drug abuse patient.[facility] HospitalIn the event this information is protected by the Federal Confidentiality of Alcohol and Drug Abuse Patient Records regulations: The Federal rules restrict any use of the information to criminally investigate or prosecute any alcohol or drug abuse patient.[facility] ClinicIn the event this information is protected by the Federal Confidentiality of Alcohol and Drug Abuse Patient Records regulations: The Federal rules restrict any use of the information to criminally investigate or prosecute any alcohol or drug abuse patient.[facility] HospitalIn the event this information is protected by the Federal Confidentiality of Alcohol and Drug Abuse Patient Records regulations: The Federal rules restrict any use of the information to criminally investigate or prosecute any alcohol or drug abuse patient.[facility] HospitalIn the event this information is protected by the Federal Confidentiality of Alcohol and Drug Abuse Patient Records regulations: The Federal rules restrict any use of the information to criminally investigate or prosecute any alcohol or drug abuse patient.[facility] HospitalIn the event this information is protected by the Federal Confidentiality of Alcohol and Drug Abuse Patient Records regulations: The Federal rules restrict any use of the information to criminally investigate or prosecute any alcohol or drug abuse patient.[facility] HospitalIn the event this information is protected by the Federal Confidentiality of Alcohol and Drug Abuse Patient Records regulations: The Federal rules restrict any use of the information to criminally investigate or prosecute any alcohol or drug abuse patient.[facility] HospitalIn the event this information is protected by the Federal Confidentiality of Alcohol and Drug Abuse Patient Records regulations: The Federal rules restrict any use of the information to criminally investigate or prosecute any alcohol or drug abuse patient.[facility] HospitalIn the event this information is protected by the Federal Confidentiality of Alcohol and Drug Abuse Patient Records regulations: The Federal rules restrict any use of the information to criminally investigate or prosecute any alcohol or drug abuse patient.[facility] HospitalIn the event this information is protected by the Federal Confidentiality of Alcohol and Drug Abuse Patient Records regulations: The Federal rules restrict any use of the information to criminally investigate or prosecute any alcohol or drug abuse patient.[facility] HospitalIn the event this information is protected by the Federal Confidentiality of Alcohol and Drug Abuse Patient Records regulations: The Federal rules restrict any use of the information to criminally investigate or prosecute any alcohol or drug abuse patient.[facility] HospitalIn the event this information is protected by the Federal Confidentiality of Alcohol and Drug Abuse Patient Records regulations: The Federal rules restrict any use of the information to criminally investigate or prosecute any alcohol or drug abuse patient.[facility] HospitalIn the event this information is protected by the Federal Confidentiality of Alcohol and Drug Abuse Patient Records regulations: The Federal rules restrict any use of the information to criminally investigate or prosecute any alcohol or drug abuse patient.[facility] HospitalIn the event this information is protected by the Federal Confidentiality of Alcohol and Drug Abuse Patient Records regulations: The Federal rules restrict any use of the information to criminally investigate or prosecute any alcohol or drug abuse patient.[facility] HospitalIn the event this information is protected by the Federal Confidentiality of Alcohol and Drug Abuse Patient Records regulations: The Federal rules restrict any use of the information to criminally investigate or prosecute any alcohol or drug abuse patient.[facility] HospitalIn the event this information is protected by the Federal Confidentiality of Alcohol and Drug Abuse Patient Records regulations: The Federal rules restrict any use of the information to criminally investigate or prosecute any alcohol or drug abuse patient.[facility] HospitalIn the event this information is protected by the Federal Confidentiality of Alcohol and Drug Abuse Patient Records regulations: The Federal rules restrict any use of the information to criminally investigate or prosecute any alcohol or drug abuse patient.[facility] HospitalIn the event this information is protected by the Federal Confidentiality of Alcohol and Drug Abuse Patient Records regulations: The Federal rules restrict any use of the information to criminally investigate or prosecute any alcohol or drug abuse patient.[facility] HospitalIn the event this information is protected by the Federal Confidentiality of Alcohol and Drug Abuse Patient Records regulations: The Federal rules restrict any use of the information to criminally investigate or prosecute any alcohol or drug abuse patient.[facility] HospitalIn the event this information is protected by the Federal Confidentiality of Alcohol and Drug Abuse Patient Records regulations: The Federal rules restrict any use of the information to criminally investigate or prosecute any alcohol or drug abuse patient.[facility] HospitalIn the event this information is protected by the Federal Confidentiality of Alcohol and Drug Abuse Patient Records regulations: The Federal rules restrict any use of the information to criminally investigate or prosecute any alcohol or drug abuse patient.[facility] HospitalIn the event this information is protected by the Federal Confidentiality of Alcohol and Drug Abuse Patient Records regulations: The Federal rules restrict any use of the information to criminally investigate or prosecute any alcohol or drug abuse patient.[facility] HospitalIn the event this information is protected by the Federal Confidentiality of Alcohol and Drug Abuse Patient Records regulations: The Federal rules restrict any use of the information to criminally investigate or prosecute any alcohol or drug abuse patient.[facility] HospitalIn the event this information is protected by the Federal Confidentiality of Alcohol and Drug Abuse Patient Records regulations: The Federal rules restrict any use of the information to criminally investigate or prosecute any alcohol or drug abuse patient.[facility] HospitalIn the event this information is protected by the Federal Confidentiality of Alcohol and Drug Abuse Patient Records regulations: The Federal rules restrict any use of the information to criminally investigate or prosecute any alcohol or drug abuse patient.[facility] HospitalIn the event this information is protected by the Federal Confidentiality of Alcohol and Drug Abuse Patient Records regulations: The Federal rules restrict any use of the information to criminally investigate or prosecute any alcohol or drug abuse patient.[facility] HospitalIn the event this information is protected by the Federal Confidentiality of Alcohol and Drug Abuse Patient Records regulations: The Federal rules restrict any use of the information to criminally investigate or prosecute any alcohol or drug abuse patient.[facility] HospitalIn the event this information is protected by the Federal Confidentiality of Alcohol and Drug Abuse Patient Records regulations: The Federal rules restrict any use of the information to criminally investigate or prosecute any alcohol or drug abuse patient.[facility] HospitalIn the event this information is protected by the Federal Confidentiality of Alcohol and Drug Abuse Patient Records regulations: The Federal rules restrict any use of the information to criminally investigate or prosecute any alcohol or drug abuse patient.[facility] HospitalIn the event this information is protected by the Federal Confidentiality of Alcohol and Drug Abuse Patient Records regulations: The Federal rules restrict any use of the information to criminally investigate or prosecute any alcohol or drug abuse patient.[facility] HospitalIn the event this information is protected by the Federal Confidentiality of Alcohol and Drug Abuse Patient Records regulations: The Federal rules restrict any use of the information to criminally investigate or prosecute any alcohol or drug abuse patient.[facility] HospitalIn the event this information is protected by the Federal Confidentiality of Alcohol and Drug Abuse Patient Records regulations: The Federal rules restrict any use of the information to criminally investigate or prosecute any alcohol or drug abuse patient.[facility] HospitalIn the event this information is protected by the Federal Confidentiality of Alcohol and Drug Abuse Patient Records regulations: The Federal rules restrict any use of the information to criminally investigate or prosecute any alcohol or drug abuse patient.[facility] HospitalIn the event this information is protected by the Federal Confidentiality of Alcohol and Drug Abuse Patient Records regulations: The Federal rules restrict any use of the information to criminally investigate or prosecute any alcohol or drug abuse patient.[facility] HospitalIn the event this information is protected by the Federal Confidentiality of Alcohol and Drug Abuse Patient Records regulations: The Federal rules restrict any use of the information to criminally investigate or prosecute any alcohol or drug abuse patient.[facility] HospitalIn the event this information is protected by the Federal Confidentiality of Alcohol and Drug Abuse Patient Records regulations: The Federal rules restrict any use of the information to criminally investigate or prosecute any alcohol or drug abuse patient.[facility] HospitalIn the event this information is protected by the Federal Confidentiality of Alcohol and Drug Abuse Patient Records regulations: The Federal rules restrict any use of the information to criminally investigate or prosecute any alcohol or drug abuse patient.[facility] HospitalIn the event this information is protected by the Federal Confidentiality of Alcohol and Drug Abuse Patient Records regulations: The Federal rules restrict any use of the information to criminally investigate or prosecute any alcohol or drug abuse patient.[facility] HospitalIn the event this information is protected by the Federal Confidentiality of Alcohol and Drug Abuse Patient Records regulations: The Federal rules restrict any use of the information to criminally investigate or prosecute any alcohol or drug abuse patient.[facility] HospitalIn the event this information is protected by the Federal Confidentiality of Alcohol and Drug Abuse Patient Records regulations: The Federal rules restrict any use of the information to criminally investigate or prosecute any alcohol or drug abuse patient.[facility] HospitalIn the event this information is protected by the Federal Confidentiality of Alcohol and Drug Abuse Patient Records regulations: The Federal rules restrict any use of the information to criminally investigate or prosecute any alcohol or drug abuse patient.[facility] HospitalIn the event this information is protected by the Federal Confidentiality of Alcohol and Drug Abuse Patient Records regulations: The Federal rules restrict any use of the information to criminally investigate or prosecute any alcohol or drug abuse patient.[facility] HospitalIn the event this information is protected by the Federal Confidentiality of Alcohol and Drug Abuse Patient Records regulations: The Federal rules restrict any use of the information to criminally investigate or prosecute any alcohol or drug abuse patient.[facility] HospitalIn the event this information is protected by the Federal Confidentiality of Alcohol and Drug Abuse Patient Records regulations: The Federal rules restrict any use of the information to criminally investigate or prosecute any alcohol or drug abuse patient.[facility] HospitalIn the event this information is protected by the Federal Confidentiality of Alcohol and Drug Abuse Patient Records regulations: The Federal rules restrict any use of the information to criminally investigate or prosecute any alcohol or drug abuse patient.[facility] HospitalIn the event this information is protected by the Federal Confidentiality of Alcohol and Drug Abuse Patient Records regulations: The Federal rules restrict any use of the information to criminally investigate or prosecute any alcohol or drug abuse patient.[facility] HospitalIn the event this information is protected by the Federal Confidentiality of Alcohol and Drug Abuse Patient Records regulations: The Federal rules restrict any use of the information to criminally investigate or prosecute any alcohol or drug abuse patient.[facility] HospitalIn the event this information is protected by the Federal Confidentiality of Alcohol and Drug Abuse Patient Records regulations: The Federal rules restrict any use of the information to criminally investigate or prosecute any alcohol or drug abuse patient.[facility] HospitalIn the event this information is protected by the Federal Confidentiality of Alcohol and Drug Abuse Patient Records regulations: The Federal rules restrict any use of the information to criminally investigate or prosecute any alcohol or drug abuse patient.[facility] HospitalIn the event this information is protected by the Federal Confidentiality of Alcohol and Drug Abuse Patient Records regulations: The Federal rules restrict any use of the information to criminally investigate or prosecute any alcohol or drug abuse patient.[facility] HospitalIn the event this information is protected by the Federal Confidentiality of Alcohol and Drug Abuse Patient Records regulations: The Federal rules restrict any use of the information to criminally investigate or prosecute any alcohol or drug abuse patient.[facility] HospitalIn the event this information is protected by the Federal Confidentiality of Alcohol and Drug Abuse Patient Records regulations: The Federal rules restrict any use of the information to criminally investigate or prosecute any alcohol or drug abuse patient.[facility] ClinicIn the event this information is protected by the Federal Confidentiality of Alcohol and Drug Abuse Patient Records regulations: The Federal rules restrict any use of the information to criminally investigate or prosecute any alcohol or drug abuse patient.[facility] HospitalIn the event this information is protected by the Federal Confidentiality of Alcohol and Drug Abuse Patient Records regulations: The Federal rules restrict any use of the information to criminally investigate or prosecute any alcohol or drug abuse patient.[facility] HospitalIn the event this information is protected by the Federal Confidentiality of Alcohol and Drug Abuse Patient Records regulations: The Federal rules restrict any use of the information to criminally investigate or prosecute any alcohol or drug abuse patient.[facility] HospitalIn the event this information is protected by the Federal Confidentiality of Alcohol and Drug Abuse Patient Records regulations: The Federal rules restrict any use of the information to criminally investigate or prosecute any alcohol or drug abuse patient.[facility] HospitalIn the event this information is protected by the Federal Confidentiality of Alcohol and Drug Abuse Patient Records regulations: The Federal rules restrict any use of the information to criminally investigate or prosecute any alcohol or drug abuse patient.[facility] HospitalIn the event this information is protected by the Federal Confidentiality of Alcohol and Drug Abuse Patient Records regulations: The Federal rules restrict any use of the information to criminally investigate or prosecute any alcohol or drug abuse patient.[facility] HospitalIn the event this information is protected by the Federal Confidentiality of Alcohol and Drug Abuse Patient Records regulations: The Federal rules restrict any use of the information to criminally investigate or prosecute any alcohol or drug abuse patient.[facility] HospitalIn the event this information is protected by the Federal Confidentiality of Alcohol and Drug Abuse Patient Records regulations: The Federal rules restrict any use of the information to criminally investigate or prosecute any alcohol or drug abuse patient.[facility] HospitalIn the event this information is protected by the Federal Confidentiality of Alcohol and Drug Abuse Patient Records regulations: The Federal rules restrict any use of the information to criminally investigate or prosecute any alcohol or drug abuse patient.[facility] HospitalIn the event this information is protected by the Federal Confidentiality of Alcohol and Drug Abuse Patient Records regulations: The Federal rules restrict any use of the information to criminally investigate or prosecute any alcohol or drug abuse patient.[facility] HospitalIn the event this information is protected by the Federal Confidentiality of Alcohol and Drug Abuse Patient Records regulations: The Federal rules restrict any use of the information to criminally investigate or prosecute any alcohol or drug abuse patient.[facility] HospitalIn the event this information is protected by the Federal Confidentiality of Alcohol and Drug Abuse Patient Records regulations: The Federal rules restrict any use of the information to criminally investigate or prosecute any alcohol or drug abuse patient.[facility] HospitalIn the event this information is protected by the Federal Confidentiality of Alcohol and Drug Abuse Patient Records regulations: The Federal rules restrict any use of the information to criminally investigate or prosecute any alcohol or drug abuse patient.[facility] HospitalIn the event this information is protected by the Federal Confidentiality of Alcohol and Drug Abuse Patient Records regulations: The Federal rules restrict any use of the information to criminally investigate or prosecute any alcohol or drug abuse patient.[facility] HospitalIn the event this information is protected by the Federal Confidentiality of Alcohol and Drug Abuse Patient Records regulations: The Federal rules restrict any use of the information to criminally investigate or prosecute any alcohol or drug abuse patient.[facility] HospitalIn the event this information is protected by the Federal Confidentiality of Alcohol and Drug Abuse Patient Records regulations: The Federal rules restrict any use of the information to criminally investigate or prosecute any alcohol or drug abuse patient.[facility] HospitalIn the event this information is protected by the Federal Confidentiality of Alcohol and Drug Abuse Patient Records regulations: The Federal rules restrict any use of the information to criminally investigate or prosecute any alcohol or drug abuse patient.[facility] HospitalIn the event this information is protected by the Federal Confidentiality of Alcohol and Drug Abuse Patient Records regulations: The Federal rules restrict any use of the information to criminally investigate or prosecute any alcohol or drug abuse patient.[facility] HospitalIn the event this information is protected by the Federal Confidentiality of Alcohol and Drug Abuse Patient Records regulations: The Federal rules restrict any use of the information to criminally investigate or prosecute any alcohol or drug abuse patient.[facility] HospitalIn the event this information is protected by the Federal Confidentiality of Alcohol and Drug Abuse Patient Records regulations: The Federal rules restrict any use of the information to criminally investigate or prosecute any alcohol or drug abuse patient.[facility] HospitalIn the event this information is protected by the Federal Confidentiality of Alcohol and Drug Abuse Patient Records regulations: The Federal rules restrict any use of the information to criminally investigate or prosecute any alcohol or drug abuse patient.[facility] HospitalIn the event this information is protected by the Federal Confidentiality of Alcohol and Drug Abuse Patient Records regulations: The Federal rules restrict any use of the information to criminally investigate or prosecute any alcohol or drug abuse patient.[facility] HospitalIn the event this information is protected by the Federal Confidentiality of Alcohol and Drug Abuse Patient Records regulations: The Federal rules restrict any use of the information to criminally investigate or prosecute any alcohol or drug abuse patient.[facility] HospitalIn the event this information is protected by the Federal Confidentiality of Alcohol and Drug Abuse Patient Records regulations: The Federal rules restrict any use of the information to criminally investigate or prosecute any alcohol or drug abuse patient.[facility] HospitalIn the event this information is protected by the Federal Confidentiality of Alcohol and Drug Abuse Patient Records regulations: The Federal rules restrict any use of the information to criminally investigate or prosecute any alcohol or drug abuse patient.[facility] HospitalIn the event this information is protected by the Federal Confidentiality of Alcohol and Drug Abuse Patient Records regulations: The Federal rules restrict any use of the information to criminally investigate or prosecute any alcohol or drug abuse patient.[facility] HospitalIn the event this information is protected by the Federal Confidentiality of Alcohol and Drug Abuse Patient Records regulations: The Federal rules restrict any use of the information to criminally investigate or prosecute any alcohol or drug abuse patient.[facility] HospitalIn the event this information is protected by the Federal Confidentiality of Alcohol and Drug Abuse Patient Records regulations: The Federal rules restrict any use of the information to criminally investigate or prosecute any alcohol or drug abuse patient.[facility] HospitalIn the event this information is protected by the Federal Confidentiality of Alcohol and Drug Abuse Patient Records regulations: The Federal rules restrict any use of the information to criminally investigate or prosecute any alcohol or drug abuse patient.[facility] HospitalIn the event this information is protected by the Federal Confidentiality of Alcohol and Drug Abuse Patient Records regulations: The Federal rules restrict any use of the information to criminally investigate or prosecute any alcohol or drug abuse patient.[facility] HospitalIn the event this information is protected by the Federal Confidentiality of Alcohol and Drug Abuse Patient Records regulations: The Federal rules restrict any use of the information to criminally investigate or prosecute any alcohol or drug abuse patient.[facility] HospitalIn the event this information is protected by the Federal Confidentiality of Alcohol and Drug Abuse Patient Records regulations: The Federal rules restrict any use of the information to criminally investigate or prosecute any alcohol or drug abuse patient.[facility] HospitalIn the event this information is protected by the Federal Confidentiality of Alcohol and Drug Abuse Patient Records regulations: The Federal rules restrict any use of the information to criminally investigate or prosecute any alcohol or drug abuse patient.[facility] HospitalIn the event this information is protected by the Federal Confidentiality of Alcohol and Drug Abuse Patient Records regulations: The Federal rules restrict any use of the information to criminally investigate or prosecute any alcohol or drug abuse patient.[facility] HospitalIn the event this information is protected by the Federal Confidentiality of Alcohol and Drug Abuse Patient Records regulations: The Federal rules restrict any use of the information to criminally investigate or prosecute any alcohol or drug abuse patient.[facility] HospitalIn the event this information is protected by the Federal Confidentiality of Alcohol and Drug Abuse Patient Records regulations: The Federal rules restrict any use of the information to criminally investigate or prosecute any alcohol or drug abuse patient.[facility] HospitalIn the event this information is protected by the Federal Confidentiality of Alcohol and Drug Abuse Patient Records regulations: The Federal rules restrict any use of the information to criminally investigate or prosecute any alcohol or drug abuse patient.[facility] HospitalIn the event this information is protected by the Federal Confidentiality of Alcohol and Drug Abuse Patient Records regulations: The Federal rules restrict any use of the information to criminally investigate or prosecute any alcohol or drug abuse patient.[facility] HospitalIn the event this information is protected by the Federal Confidentiality of Alcohol and Drug Abuse Patient Records regulations: The Federal rules restrict any use of the information to criminally investigate or prosecute any alcohol or drug abuse patient.[facility] HospitalIn the event this information is protected by the Federal Confidentiality of Alcohol and Drug Abuse Patient Records regulations: The Federal rules restrict any use of the information to criminally investigate or prosecute any alcohol or drug abuse patient.[facility] HospitalIn the event this information is protected by the Federal Confidentiality of Alcohol and Drug Abuse Patient Records regulations: The Federal rules restrict any use of the information to criminally investigate or prosecute any alcohol or drug abuse patient.[facility] HospitalIn the event this information is protected by the Federal Confidentiality of Alcohol and Drug Abuse Patient Records regulations: The Federal rules restrict any use of the information to criminally investigate or prosecute any alcohol or drug abuse patient.[facility] HospitalIn the event this information is protected by the Federal Confidentiality of Alcohol and Drug Abuse Patient Records regulations: The Federal rules restrict any use of the information to criminally investigate or prosecute any alcohol or drug abuse patient.[facility] HospitalIn the event this information is protected by the Federal Confidentiality of Alcohol and Drug Abuse Patient Records regulations: The Federal rules restrict any use of the information to criminally investigate or prosecute any alcohol or drug abuse patient.[facility] HospitalIn the event this information is protected by the Federal Confidentiality of Alcohol and Drug Abuse Patient Records regulations: The Federal rules restrict any use of the information to criminally investigate or prosecute any alcohol or drug abuse patient.[facility] HospitalIn the event this information is protected by the Federal Confidentiality of Alcohol and Drug Abuse Patient Records regulations: The Federal rules restrict any use of the information to criminally investigate or prosecute any alcohol or drug abuse patient.[facility] HospitalIn the event this information is protected by the Federal Confidentiality of Alcohol and Drug Abuse Patient Records regulations: The Federal rules restrict any use of the information to criminally investigate or prosecute any alcohol or drug abuse patient.[facility] HospitalIn the event this information is protected by the Federal Confidentiality of Alcohol and Drug Abuse Patient Records regulations: The Federal rules restrict any use of the information to criminally investigate or prosecute any alcohol or drug abuse patient.[facility] HospitalIn the event this information is protected by the Federal Confidentiality of Alcohol and Drug Abuse Patient Records regulations: The Federal rules restrict any use of the information to criminally investigate or prosecute any alcohol or drug abuse patient.[facility] HospitalIn the event this information is protected by the Federal Confidentiality of Alcohol and Drug Abuse Patient Records regulations: The Federal rules restrict any use of the information to criminally investigate or prosecute any alcohol or drug abuse patient.[facility] ClinicIn the event this information is protected by the Federal Confidentiality of Alcohol and Drug Abuse Patient Records regulations: The Federal rules restrict any use of the information to criminally investigate or prosecute any alcohol or drug abuse patient.[facility] HospitalIn the event this information is protected by the Federal Confidentiality of Alcohol and Drug Abuse Patient Records regulations: The Federal rules restrict any use of the information to criminally investigate or prosecute any alcohol or drug abuse patient.[facility] HospitalIn the event this information is protected by the Federal Confidentiality of Alcohol and Drug Abuse Patient Records regulations: The Federal rules restrict any use of the information to criminally investigate or prosecute any alcohol or drug abuse patient.[facility] HospitalIn the event this information is protected by the Federal Confidentiality of Alcohol and Drug Abuse Patient Records regulations: The Federal rules restrict any use of the information to criminally investigate or prosecute any alcohol or drug abuse patient.[facility] HospitalIn the event this information is protected by the Federal Confidentiality of Alcohol and Drug Abuse Patient Records regulations: The Federal rules restrict any use of the information to criminally investigate or prosecute any alcohol or drug abuse patient.[facility] HospitalIn the event this information is protected by the Federal Confidentiality of Alcohol and Drug Abuse Patient Records regulations: The Federal rules restrict any use of the information to criminally investigate or prosecute any alcohol or drug abuse patient.[facility] HospitalIn the event this information is protected by the Federal Confidentiality of Alcohol and Drug Abuse Patient Records regulations: The Federal rules restrict any use of the information to criminally investigate or prosecute any alcohol or drug abuse patient.[facility] HospitalIn the event this information is protected by the Federal Confidentiality of Alcohol and Drug Abuse Patient Records regulations: The Federal rules restrict any use of the information to criminally investigate or prosecute any alcohol or drug abuse patient.[facility] HospitalIn the event this information is protected by the Federal Confidentiality of Alcohol and Drug Abuse Patient Records regulations: The Federal rules restrict any use of the information to criminally investigate or prosecute any alcohol or drug abuse patient.[facility] HospitalIn the event this information is protected by the Federal Confidentiality of Alcohol and Drug Abuse Patient Records regulations: The Federal rules restrict any use of the information to criminally investigate or prosecute any alcohol or drug abuse patient.[facility] HospitalIn the event this information is protected by the Federal Confidentiality of Alcohol and Drug Abuse Patient Records regulations: The Federal rules restrict any use of the information to criminally investigate or prosecute any alcohol or drug abuse patient.[facility] HospitalIn the event this information is protected by the Federal Confidentiality of Alcohol and Drug Abuse Patient Records regulations: The Federal rules restrict any use of the information to criminally investigate or prosecute any alcohol or drug abuse patient.[facility] HospitalIn the event this information is protected by the Federal Confidentiality of Alcohol and Drug Abuse Patient Records regulations: The Federal rules restrict any use of the information to criminally investigate or prosecute any alcohol or drug abuse patient.[facility] HospitalIn the event this information is protected by the Federal Confidentiality of Alcohol and Drug Abuse Patient Records regulations: The Federal rules restrict any use of the information to criminally investigate or prosecute any alcohol or drug abuse patient.[facility] HospitalIn the event this information is protected by the Federal Confidentiality of Alcohol and Drug Abuse Patient Records regulations: The Federal rules restrict any use of the information to criminally investigate or prosecute any alcohol or drug abuse patient.[facility] HospitalIn the event this information is protected by the Federal Confidentiality of Alcohol and Drug Abuse Patient Records regulations: The Federal rules restrict any use of the information to criminally investigate or prosecute any alcohol or drug abuse patient.[facility] Reason for Visit (unrecogniz ed section and content) Reason Comments Results Reason Onset Date Comments Refill Request 06/27/2021 Reason Onset Date Comments Refill Request 07/11/2021 Reason Onset Date Comments Refill Request 08/08/2021 Reason Onset Date Comments Refill Request 09/27/2021 Reason Onset Date Comments Refill Request 09/29/2021 Reason Onset Date Comments Refill Request 10/11/2021 Reason Onset Date Comments Refill Request 11/11/2021 Reason Onset Date Comments Refill Request 11/24/2021 Reason Onset Date Comments Refill Request 12/29/2021 Reason Onset Date Comments Refill Request 01/11/2022 Reason Onset Date Comments Refill Request 02/14/2022 Reason Comments F/U 6 Month Chronic pain Reason Onset Date Comments Refill Request 03/14/2022 Reason Onset Date Comments ED OUTREACH 03/22/2022 ED OUTREACH Reason Comments ER Follow up appt Reason Comments Urinary Retention [place] catheter in [facility] since 03/20/22 Reason Comments Follow Up Urinary Retention Reason Onset Date Comments Refill Request 04/21/2022 Reason Onset Date Comments Refill Request 05/19/2022 Reason Onset Date Comments Refill Request 05/22/2022 Reason Comments Medication Problem Reason Comments Chronic Pain Hypertension Reason Onset Date Comments Refill Request 05/31/2022 Reason Onset Date Comments Refill Request 06/30/2022 Reason Onset Date Comments Refill Request 07/13/2022 Reason Comments Appointment Reason Onset Date Comments Refill Request 07/31/2022 Reason Comments Patient Question Reason Comments Debridement of Nail New Patient Reason Comments Debridement of Nail Reason Comments Results Appointment Reason Comments Radiology CT Reason Comments Triage Initial Call Reason Comments Fall Reason Comments Chart prep/record review Reason Comments New Reason Comments MARYJANE week of 02/25/24 Reason Comments Appointment follow up Reason Comments Returning Patient's Call Appointment Reason Comments Appointment confirmation =facility updat ed Reason Comments Radiology MRI Specialty Diagnoses / Procedures Referred By Contac t Referred To Contact MR IMAGING Diagnoses Astrocytoma (HCC) Procedures MRI BRAIN WO/W IVCON MRI BRAIN BRAIN STEM W/O W/CONTRAST MATERIAL Mini Whyte MD [address] [place] [address] [facility] [place] [address] Referral ID Status Reason Start Date Expiration Date V isits Requested Visits Authorized [id number] Closed Auto-Generate d Referral 01/23/2024 02/21/2025 1 1 Reason Comments Established Patient Reason Comments Future Appointment New Patient [place] Any Reason Comments Orders Premedication for co ntrast allergy Reason Comments Pathology slides and records requested Reason Comments Path slides not available Reason Comments MARYJANE 2-3 weeks Reason Comments MRA 04/02/24- facility aware Reason Comments Facility change to [facility] [place] Reason Comments Instrument Tech - Other Reason Comments Confirm appt for 04/02/24 Reason Comments MARYJANE week of 05/26/24 Reason Comments Patient Update Reason Comments Images requested MRA/MRI Reason Comments Brain Tumor Reason Comments MARYJANE 3-4 weeks Reason Comments MARYJANE Add on for 05/26 Reason Comments Sign up for My chart Reason Comments Radiology MRI Specialty Diagnoses / Procedures Referred By Contac t Referred To Contact MR IMAGING Diagnoses Astrocytoma brain tumor (HCC) Procedures MRI BRAIN WO/W IVCON MRI BRAIN BRAIN STEM W/O W/CONTRAST MATERIAL Mini Whyte MD [address] [place] [address] Phone: tel: fax: [facility] [place] [address] Referral ID Status Reason Start Date Expiration Date V isits Requested Visits Authorized [id number] Closed Auto-Generate d Referral 03/04/2024 04/03/2025 1 1 Reason Comments New Patient New [place] Patient Specialty Diagnoses / Procedures Referred By Contac t Referred To Contact Neurology Diagnoses Allergy to intravenous contrast media Anaplastic astrocytoma (HCC) Mild cognitive impairment Cognitive decline Occlusion and stenosis of unspecified carotid artery Pathological fracture, other site, initial encounter for fracture Injury of cervical spinal cord, sequela (HCC) Quadriplegia (HCC) Procedures CONSULT TO NEUROLOGY OFFICE/OUTPATIENT NEW HIGH MDM 60 MINUTES Mini Whyte MD [address] [place] [address] Phone: tel: fax: [facility] [address] [place] [address] Phone: tel: Referral ID Status Reason Start Date Expiration Date V isits Requested Visits Authorized [id number] Closed PCP Requested Referral 03/04/2024 03/04/2025 1 1 Reason Comments MARYJANE 4 weeks Reason Comments Established Patient Reason Comments MARYJANE 07/2024 Reason Comments Established Patient Reason Comments [facility] Welcome Letter Mailed Reason Comments Spasticity Specialty Diagnoses / Procedures Referred By Jaycee t Referred To Contact [facility] Diagnoses Spasticity Procedures OFFICE/OUTPATIENT [facility] 60 MINUTES Mini Whyte MD [address] [address] Phone: tel: fax: [facility] [address] [place] [address] Referral ID Status Reason Start Date Expiration Date V isits Requested Visits Authorized [id number] Closed PCP Requested Referral Auto-Generated Referral 07/31/2024 07/31/2025 1 1 Reason Comments MARYJANE 2-4 weeks Reason Comments MARYJANE 3 months Care Teams (unrecognized sec tion and content) Insurance Follow Up Representative Relationship Specialty Start Date End Date Leela Escoto DO [address] [place] [address] PCP - General Family Practice 05/26/21 Insurance Follow Up Representative Relationship Specialty Start Date End Date Leela Escoto DO [address] [place] [address] PCP - General Family Practice 05/26/21 Insurance Follow Up Representative Relationship Specialty Start Date End Date Leela Escoto DO [address] [place] [address] PCP - General Family Practice 05/26/21 Insurance Follow Up Representative Relationship Specialty Start Date End Date Leela Escoto DO [address], [place] [id number] PCP - General Family Practice 05/26/21 Insurance Follow Up Representative Relationship Specialty Start Date End Date Sheets Leela Mcclain, DO [address] [place] [address] PCP - General Family Practice 05/26/21 Insurance Follow Up Representative Relationship Specialty Start Date End Date Sheets, Leela Mcclain DO [address] [place] [address] PCP - General Family Medicine 05/26/21 Insurance Follow Up Representative Relationship Specialty Start Date End Date SheetsLeela DO [address] [place] [address] PCP - General Family Medicine 05/26/21 Insurance Follow Up Representative Relationship Specialty Start Date End Date SheetsLeela DO [address] [place] [address] PCP - General Family Medicine 05/26/21 Insurance Follow Up Representative Relationship Specialty Start Date End Date Sheets, Leela Mcclain DO [address] [place] [address] PCP - General Family Medicine 05/26/21 Insurance Follow Up Representative Relationship Specialty Start Date End Date SheetsLeela DO [address] [place] [address] PCP - General Family Medicine 05/26/21 Insurance Follow Up Representative Relationship Specialty Start Date End Date Sheets, Leela Mcclain DO [address] [place] [address] PCP - General Family Medicine 05/26/21 Insurance Follow Up Representative Relationship Specialty Start Date End Date SheetsLeela DO [address] [place] [address] PCP - General Family Medicine 05/26/21 Insurance Follow Up Representative Relationship Specialty Start Date End Date Sheets, Leela Mcclain DO [address] [place] [address] PCP - General Family Medicine 05/26/21 Insurance Follow Up Representative Relationship Specialty Start Date End Date Sheets Leela Mcclain DO [address] [place] [address] PCP - General Family Medicine 05/26/21 Insurance Follow Up Representative Relationship Specialty Start Date End Date Sheets Leela Mcclain DO [address] [place] [address] PCP - General Family Medicine 05/26/21 Insurance Follow Up Representative Relationship Specialty Start Date End Date Sheets Leela Mcclain DO [address] [place] [address] PCP - General Family Medicine 05/26/21 Insurance Follow Up Representative Relationship Specialty Start Date End Date Sheets Leela Mcclain DO [address] [place] [address] PCP - General Family Medicine 05/26/21 Insurance Follow Up Representative Relationship Specialty Start Date End Date Sheets Leela Mcclain DO [address] [place] [address] PCP - General Family Medicine 05/26/21 Insurance Follow Up Representative Relationship Specialty Start Date End Date Sheets Leela Mcclain DO [address] [place] [address] PCP - General Family Medicine 05/26/21 Insurance Follow Up Representative Relationship Specialty Start Date End Date Sheets Leela Mcclain DO [address] [place] [address] PCP - General Family Medicine 05/26/21 Insurance Follow Up Representative Relationship Specialty Start Date End Date SheetsLeela DO [address] [place] [address] PCP - General Family Medicine 05/26/21 Insurance Follow Up Representative Relationship Specialty Start Date End Date Leela Escoto DO [address] [place] [address] PCP - General Family Medicine 05/26/21 Insurance Follow Up Representative Relationship Specialty Start Date End Date Leela Escoto DO [address] [place] [address] PCP - General Family Medicine 05/26/21 Insurance Follow Up Representative Relationship Specialty Start Date End Date Leela Escoto DO [address] [place] [address] PCP - General Family Medicine 05/26/21 Insurance Follow Up Representative Relationship Specialty Start Date End Date Leela Escoto DO [address] [place] [address] PCP - General Family Medicine 05/26/21 Insurance Follow Up Representative Relationship Specialty Start Date End Date Leela Escoto DO [address] [place] [address] PCP - General Family Medicine 05/26/21 Insurance Follow Up Representative Relationship Specialty Start Date End Date Leela Escoto DO [address] [place] [address] PCP - General Family Medicine 05/26/21 Insurance Follow Up Representative Relationship Specialty Start Date End Date Leela Escoto DO [address] [place] [address] PCP - General Family Medicine 05/26/21 Insurance Follow Up Representative Relationship Specialty Start Date End Date SheetsLeela DO [address] [place] [address] PCP - General Family Medicine 05/26/21 Insurance Follow Up Representative Relationship Specialty Start Date End Date Sheets Leela Mcclain DO [address] [place] [address] PCP - General Family Medicine 05/26/21 Insurance Follow Up Representative Relationship Specialty Start Date End Date SheetsLeela DO [address] [place] [address] PCP - General Family Medicine 05/26/21 Insurance Follow Up Representative Relationship Specialty Start Date End Date Leela Escoto DO [address] [place] [address] PCP - General Family Medicine 05/26/21 Insurance Follow Up Representative Relationship Specialty Start Date End Date SheetsLeela DO [address] [place] [address] PCP - General Family Medicine 05/26/21 Insurance Follow Up Representative Relationship Specialty Start Date End Date Leela Escoto DO [address] [place] [address] PCP - General Family Medicine 05/26/21 Insurance Follow Up Representative Relationship Specialty Start Date End Date SheetsLeela DO [address] [place] [address] PCP - General Family Medicine 05/26/21 Insurance Follow Up Representative Relationship Specialty Start Date End Date SheetsLeela DO [address] [place] [address] PCP - General Family Medicine 05/26/21 Insurance Follow Up Representative Relationship Specialty Start Date End Date Leela Escoto DO [address] [place] [address] PCP - General Family Medicine 05/26/21 Insurance Follow Up Representative Relationship Specialty Start Date End Date Leela Escoto DO [address] [place] [address] PCP - General Family Medicine 05/26/21 Insurance Follow Up Representative Relationship Specialty Start Date End Date Leela Escoto DO [address] [place] [address] PCP - General Family Medicine 05/26/21 Insurance Follow Up Representative Relationship Specialty Start Date End Date Leela Escoto DO [address] [facility] [place] [address] PCP - General Family Medicine 05/26/21 Insurance Follow Up Representative Relationship Specialty Start Date End Date Leela Escoto DO [address] [place] [address] PCP - General Family Medicine 05/26/21 Insurance Follow Up Representative Relationship Specialty Start Date End Date Leela Escoto DO [address] [place] [address] PCP - General Family Medicine 05/26/21 Insurance Follow Up Representative Relationship Specialty Start Date End Date Leela Escoto DO [address] [place] [address] PCP - General Family Medicine 05/26/21 Insurance Follow Up Representative Relationship Specialty Start Date End Date Leela Escoto DO [address] [place] [address] PCP - General Family Medicine 05/26/21 03/23/24 Team Status: Active Member Role Status Dates Dr. Josi Garcia MD Primary Care Provider Active Team Status: Inactive Member Role Status Dates Dr. Josi CURRIE MD Attending Provider Active Start: March 27, 2024 End: March 27, 2024 Team Status: Active Member Role Status Dates Dr. Josi CURRIE MD Attending Provider Active Start: March 28, 2024 Dr. Josi CURRIE MD Referring Provider Active Start: March 28, 2024 Team Status: Inactive Member Role Status Dates Dr. Josi CURRIE MD Attending Provider Active Start: March 31, 2024 End: March 31, 2024 Team Status: Inactive Member Role Status Dates Dr. Josi Garcia MD Primary Care Provider Active Start: April 29, 2024 End: April 29, 2024 CLIVE MORSE Attending Provider Active Start : April 29, 2024 End: April 29, 2024 CLIVE MORSE Referring Provider Active Start : April 29, 2024 End: April 29, 2024 Team Status: Active Member Role Status Dates Dr. Josi Garcia MD Primary Care Provider Active Start: August 07, 2024 Dr. Josi CURRIE MD Attending Provider Active Start: August 07, 2024 Team Status: Inactive Member Role Status Dates Dr. Josi Garcia MD Primary Care Provider Active Start: August 08, 2024 End: August 08, 2024 Dr. Everett CURRIE MD Attending Provider Active Start: August 08, 2024 End: August 08, 2024 Team Status: Active Member Role Status Dates Dr. Josi Garcia MD Primary Care Provider Active Start: August 13, 2024 Dr. Everett CURRIE MD Attending Provider Active Start: August 13, 2024 Dr. Everett CURRIE MD Referring Provider Active Start: August 13, 2024 Team Status: Active Member Role Status Dates Dr. Josi Garcia MD Primary Care Provider Active Start: August 19, 2024 Dr. Everett CURRIE MD Attending Provider Active Start: August 19, 2024 Team Status: Inactive Member Role Status Dates Dr. Josi Garcia MD Primary Care Provider Active Start: August 13, 2024 End: August 13, 2024 Dr. Everett CURRIE MD Attending Provider Active Start: August 13, 2024 End: August 13, 2024 Dr. Everett CURRIE MD Referring Provider Active Start: August 13, 2024 End: August 13, 2024 Goals (unrecognized section and content) Goals may be documented in a n alternate sectionGoals may be documented in an alternate sectionGoals may be documented in an alternate section FOR RECORDS PERTAINING TO PATIENTS WHO ARE OR HAVE BEEN ENROLLED IN A CHEMICAL DEPENDENCY/SUBSTANCEABUSE PROGRAM, SOME INFORMATION MAY BE OMITTED. This clinical summary was aggregated from multiple sources. Caution should be exercised in using it in the provision of clinical care. This summary normalizes information from multiple sources, and as a consequence, information in this document may materially change the coding, format and clinical context of patient data. In addition, data may be omitted in some cases. CLINICAL DECISIONS SHOULD BE BASED ON THE PRIMARY CLINICAL RECORDS. [employer] provides no warranty or guarantee of the accuracy or completeness of information in this document.
[2024-11-18 07:31] LABS: Hematocrit 34.4 % (37-47); Hemoglobin 10.8 g/dL (12.0-15.0); Mean Corp Hgb Conc 31.4 g/dL (32-36); Mean Corpuscular Volume 93.7 fL (81-99); Mean Platelet Vol. 10.0 fl (6.2-12.0); Platelet Count 243 K/mm3 (150-450); RBC Distribution Width CV 13.2 % (11.6-14.6); RBC Distribution Width SD 45.5 fl (35.1-43.9); Red Blood Count 3.67 M/mm3 (4.2-5.4); White Blood Count 14.2 K/mm3 (4.4-11.0)
[2024-11-18 07:52] LABS: Anion Gap 11 (5-15); BUN 24 mg/dL (4-19); BUN/Creat Ratio 35.1 RATIO (10-20); Calcium,Total 9.6 mg/dL (7.6-11.0); Carbon Dioxide 26.3 mmol/L (21.0-32.0); Chloride 109 mmol/L (98-108); Glucose 115 mg/dL (70-99); Potassium 3.4 mmol/L (3.3-5.1)
== END ==
LOC: OLS.SW 05:00
PROVIDERS: PCP Internal Medicine; Visit Provider Family Medicine
DX: I10 Essential (primary) hypertension (principal); R53.83 Other fatigue
CPT/HCPCS: 36415; 80048; 85027

== ENCOUNTER → 2024-12-02 | Outpatient (REF) | payer MEDICARE, MEDICAID, SELFPAY ==
--- OUTSIDE RECORDS SUMMARY | 2024-12-02 04:56 | XMS RPT_ITS | CCD ---
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 [id number] Normal [facility] MRA Head vessels WO contrast on 05-26-2024 [...] dynamic susceptibility-weighte d contrast-enhanced acquisition. Intracranial 3D kodp-dv-kcwehb MRA. 3D maximum intensity projection images were [...] dynamic susceptibility-weighte d contrast-enhanced acquisition. Intracranial 3D devq-dr-jdyofk MRA. 3D maximum intensity projection images were [...] the right carotid terminus and M1 segment. Help Desk Engineer: PSCB Transcribe Date/Time: May 26 2024 11:44A Dictated by : MARGIE AGUIAR MD This examination was interpreted and the report reviewed and electronically signed by: TRES MONTES MD on May 26 2024 2:47PM [facility] MRI BRAIN WO/W IVCONon 05-26 MRI BRAIN WO/W IVCON * * *Final Report* * * DATE OF EXAM: May 26 2024 11:40AM [facility] 0295 - MRI BRAIN WO/W IVCON / [...] dynamic susceptibility-weighte d contrast-enhanced acquisition. Intracranial 3D esyc-mn-pncgdx MRA. 3D maximum intensity projection images were [...] the right carotid terminus and M1 segment. Help Desk Engineer: [facility] Transcribe Date/Time: May 26 2024 11:44A Dictated by : MARGIE AGUIAR MD This examination was interpreted and the report reviewed and electronically signed by: TRES MONTES MD on May 26 2024 2:47PM EST [id number] Normal [facility] No Panel Informationon 05-26 IMPRESSION: Right frontal [...] the right carotid terminus and M1 segment. Help Desk Engineer: [facility] Transcribe Date/Time: May 26 2024 11:44A Dictated by : MARGIE AGUIAR MD This examination was interpreted and the report reviewed and electronically signed by: TRES MONTES MD on May 26 2024 2:47PM EST DIVISION OF RADIOLOGY Radiology Study observation (narrative) [facility] No Panel InformationOrdered By: Ccf Provider on 05-26-2024 [facility] XR CERVICAL 2V FLEX/EXTon XR CERVICAL [...] OF INSTABILITY IN THE UPPER CERVICAL SPINE. Help Desk Engineer: [facility] Transcribe Date/Time: May 26 2024 9:38A Dictated by : RICHMOND SINCLAIR MD This examination was interpreted and the report reviewed and electronically signed by: RICHMOND SINCLAIR MD on May 26 2024 9:40AM EST [id number] Normal [facility] XR Cervical spine 2 or 3 vie ws and (Views W flexion and W extension)on 05-26-2024 IMPRESSION: LIMITED CAUDAL TO C4-5. NO RADIOGRAPHIC DEMONSTRATION OF INSTABILITY IN THE UPPER CERVICAL SPINE. Help Desk Engineer: [facility] Transcribe Date/Time: May 26 2024 9:38A Dictated [...] and screws. DIVISION OF RADIOLOGY Provider, [facility]/26/[facility]24 * * *Final Report* * [...] OF INSTABILITY IN THE UPPER CERVICAL SPINE. Help Desk Engineer: PSCB Transcribe Date/Time: May 26 2024 9:38A Dictated by : RICHMOND SINCLAIR MD This examination was interpreted and the report reviewed and electronically signed by: RICHMOND SINCLAIR MD on May 26 2024 9:40AM EST [facility] Radiology Study observation (narrative) [facility] XR Cervical spine 2 or 3 vie ws and (Views W flexion and W extension)Ordered By: Ccf Provider on [facility]-26-20[facility] Telephone (HEMCA3) DIOR CARVAJAL ([id number]) 1965 F Date Time Provider Department 05/15/24 MINI WHYTE HEMCA3 During your visit today, we recorded the following information about you: Marc Pina, RN 05/15/2024 4:10 PM Signed Called Jessa [...] Encounter Status:Closed by MARC PINA on 05/15/24 [facility] Crissy 05-13-2024 RICHARD [facility]phone [facility] CARVAJALDIOR ESPINAL ([id number]) 1965 F Date Time Provider Department 05/13/24 MINI WHYTE NSCAMN During your visit today, [...] Results MR-MRA Neck without Contrast - OVERREAD (Acc#[id number]) (Order [id number]) Patient Info Patient Name Sex Dior Carvajal ([id number]) Female 1965 In Basket Actions Done Result [...] be discussed: Tumor Board discussion Images Reviewed: Dkyj-ob-ujtluj MR Angiogram of the Neck and MR [...] artery consi (more content not included)... Normal [facility] CNPNon 05-12-2024 CNPN Telephone (NSCAMN) DIOR CARVAJAL ([id number]) 1965 F Date Time Provider Department 05/12/24 MINI WHYTE NSCAMN During your visit today, we recorded the following information about you: Gerda Dee, RN 05/12/2024 2:56 PM Addendum If possible can we add MRA brain and C- spine xray to be added to study for 3? She is coming from a facility if this could be added. [place], [place] If not, let us know and they will need to arrange through her facility. Thank you Gerda Scheduling Request - New Patient Time Frame: 2-4 weeks or best Orders: Consult to neurology- [place] for Brain health (dementia) Provider or Provider [...] Encounter Status:Closed by GERDA DEE on 05/26/24 [facility] 05-09-2024 [facility] Telephone ([facility]) DIOR CARVAJAL ([id number]) 1965 F Date Time Provider Department 05/09/24 MINI WHYTE [facility] During your visit today, we [...] and left a VM on the other patient ombudsperson, that I called: Long Tanner (Father) [phone] I will wait for them to call [...] Encounter Status:Closed by MINI WHYTE on 05/09/24 [facility] 05-08-2024 [facility] Telephone ([facility]) DIOR CARVAJAL ([id number]) 1965 F Date Time Provider Department 05/08/24 MINI WHYTE [facility] During your visit today, we [...] Encounter Status:Closed by MINI WHYTE on 05/08/24 [facility] 05-02-2024 [facility] Telephone (HEMCA3) DIOR CARVAJAL ([id number]) 1965 F Date Time Provider Department 05/02/24 MINI WHYTE HEMKY3 During your visit today, we recorded the following information about you: Gerda Dee RN 05/02/2024 10:03 AM Signed Contacted [facility] radiology ph [phone] and spoke with Lana. She will push over MRA Neck /MRI spine images. Once received and reviewed by Dr Spears he will contact patient. Gerda Dee, RN, BSN Toe [facility] [...] Status:Closed by GERDA DEE on 05/02/24 Normal [facility] MRA Neck without Contraston 04-29-2024 MRA Neck without Contrast [facility] Imaging Services [address] [place] [address] [id number] MRA Neck without Contrast MR#: [id number] Acct: [id number] Name: LEELA CARVAJAL Rep #: [id number] : 1965 F 59 From: Tres Geronimo MD PCP: Josi Garcia MD Status: REG CLI Study: MRA Neck without Contrast Date of Exam: Exam# [id number] Ordering Dr: MAIRAN WHYTE PROCEDURE: MRA NECK WITHOUT CONTRAST REASON [...] internal carotid arteries. Details above. Reading Location: [facility] CC: MINI WHYTE; Josi Garcia MD Help Desk Engineer: Signed Normal [facility] Magnetic resonance imaging r eportOrdered By: Victor Manuel Lala on 04-29-2024 Study report [facility] Services [address] [place] [address] Spine Cervical W/WO Contrast MR#: [id number] Acct: [id number] Name: LEELA CARVAJAL Rep #: [id number] : 1965 F 59 From: Zain Lala DO PCP: Josi Garcia MD Status: REG CLI Study:Spine Cervical W/WO Contrast Date of E xam: 04/29/24 Exam# [id number] Ordering Dr: MINI DE OLIVEIRA PROCEDURE: SPINE [...] ultrasound on an outpatient basis. Reading Location: [facility] CC: MINI WHYTE; Josi Garcia MD ~ Help Desk Engineer: Signed [facility] Magnetic resonance imaging r eportOrdered By: Tres Geronimo on 04-29-2024 Study report [facility] Services [address] [place], [place] [address] MRA Neck without Contrast MR#: [id number] Acct: [id number] Name: WEILEELA Rep #: [id number] : 1965 F 59 From: Gurpreet Geronimo MD PCP: Josi Garcia MD Status: REG CLI Study:MRA Neck without Contrast Date of Exam: 04/29/24 Exam# [id number] Ordering Dr: MINI DE OLIVEIRA PROCEDURE: MRA [...] internal carotid arteries. Details above. Reading Location: [facility] CC: MINI WHYTE; Josi Garcia MD ~ Help Desk Engineer: Signed [facility] Spine Cervical W/WO Contrast on 04-29-2024 Spine Cervical W/WO Contrast [facility] Services [address] [place], [place] [address] Spine Cervical W/WO Contrast MR#: [id number] Acct: [id number] Name: LEELA CARVAJAL Rep #: [id number] : 1965 F 59 From: Victor Manuel Lala DO PCP: Josi Garcia MD Status: REG CLI Study: Spine Cervical W/WO Contrast Date of Exam: Exam# [id number] Ordering Dr: MARIAN WHYTE PROCEDURE: SPINE CERVICAL [...] ultrasound on an outpatient basis. [facility]: [facility]I WHYTE; Josi Garcia MD Help Desk Engineer: Signed [facility] Crissy 04-11-2024 CNPN Telephone (HEMCA3) DIOR CARVAJAL ([id number]) 1965 F Date Time Provider Department 04/11/24 MINI WHYTE HEMCA3 During your visit today, we recorded the following information about you: Marc Pina, ALMA 04/11/2024 1:42 PM Signed Spoke with RN [...] Encounter Status:Closed by MARC PINA on 04/11/24 Normal [facility] CNPNon 04-01-2024 CNPN Telephone (NSCAMN) CARVAJALDIOR ([id number]) 1965 F Date Time Provider Department 04/01/24 MINI WHYTE NSCAMN During your visit today, [...] not be arranged to be done at [facility] as transportation may be an issue. She is going to check and call me back later today Gerda Dee, RN, BSN [facility]e [facility] Gerda Dee, RN 04/01/2024 11:58 AM Signed Received a call from nurse White. They are unable to arrange transportation to [place] for her scans tomorrow but will arrange for them to be done at [facility]. I faxed the orders for xray c spine, MRI C spine, MRA brain/carotid to [place] fax [phone] along with pre medication orders for prednisone and benadryl. I also faxed her appointment for May. Transmission was good. Someone from the facility will contact me with the scan dates, then we need to call [facility] to have images pushed over. Due to some issues with transportation we discussed possibly doing a phone call follow up to discuss results. Patient does not have My Chart and Cindy was going to talk to social media designer about assisting with set up. Appointments in May for MRI main campus and visit same day. Gerda Dee, RN, BSN [facility]e [facility] [...] Encounter Status:Closed by GERDA DEE on 04/01/24 [facility] Crissy 03-31-2024 [facility] Telephone ([facility]) DIOR CARVAJAL ([id number]) 1965 F Date Time Provider Department 03/31/24 MINI WHYTE [facility] During your visit today, we recorded the following information about you: India Chi RN 03/31/2024 3:32 PM Signed Called and spoke with nurse Barboza at [facility], they were unaware of the appointments [...] MA - Fully Assessed Reason for Visit: Toe [facility] - Other [3602] Prescriptions as of 03/31/2024 [...] Status:Closed by [place] [facility] on 03/31/24 Normal [facility] Ferritinon 03-31-2024 Ferritin [Mass/Vol] 16 ng/mL Normal 8-252 [facility] Comment on above: Order Comment: 506.1 Performed By: #### L 100.0500, L500.2500 #### [facility] [address] [place], [place], [id number] Ferritin measurementOrdered By: Josi Garcia on 03-31-2024 Ferritin [Mass/Vol] 16 ng/mL 8-252 [facility] Ironon 03-31-2024 Iron [Mass/Vol] 35 ug/dL Low 50-170 [facility] Comment on above: Order Comment: 506.1 Performed By: #### L 100.0500, L500.2500 #### [facility] [address] [place], [place], [id number] [phone] (Unsp spec) [Mass/Mass] Ordered By: Josi Garcia on 03-31-2024 Iron [Mass/Vol] 35 ug/dL Low 50-170 [facility] 82-FH-Glrxqpz DOrdered By: Tex Garcia on 03-28-2024 Vitamin D 25-Hydroxy 26.4 ng/mL [facility] Comment on above: Vitamin D 25(OH) Sta tus Range Deficiency <20 ng/mL (50nmol/L) Insufficiency 20 - 30 ng/mL (50 - 75 nmol/L) Sufficiency 30 - 100 ng/mL (75 - 250 nmol/L) Toxicity >100 ng/mL (>250 nmol/L) Vitamin B12 measurementOrder ed By: Josi Garcia on 03-28-2024 Cobalamin (Vitamin B12) [Mass/Vol] 290 pg/mL Normal 211-911 [facility] Comment on above: Order Comment: 506.1 Performed By: #### L 100.0500, L500.2500 #### [facility] [address] [place], [address] Vitamin D,25 Hydroxyon 03-28 Vitamin D 25-OH 26.4 ng/mL Normal [facility] Comment on above: Order Comment: 506.1 Result Comment: Kemi min D 25(OH) Status Range Deficiency <20 ng/mL (50nmol/L) Insufficiency 20 - 30 ng/mL (50 - 75 nmol/L) Sufficiency 30 - 100 ng/mL (75 - 250 nmol/L) Toxicity >100 ng/mL (>250 nmol/L) Performed By: #### L 100.0500, L500.2500 #### [facility] [address] [place], [address] Absolute neutrophil countOrd ered By: Josi Garcia on 03-27-2024 Neutrophils (Bld) [#/Vol] 4.8 10*3/uL 2.0-7.7 [facility] Basic Metabolic Profile (BMP )on 03-27-2024 BUN/CRE 23.0 RATIO High 10-20 [facility] Comment on above: Order Comment: 506.1 Performed By: #### L 100.0500, L500.2500 #### [facility] [address] [place], [address] CA,Total 9.6 mg/dL Normal 8.5-10.1 [facility] Comment on above: Order Comment: 506.1 Performed By: #### L 100.0500, L500.2500 #### [facility] [address] [place], [place], [address] Chloride [Moles/Vol] 107 mmol/L Normal 98-107 [facility] Comment on above: Order Comment: 506.1 Performed By: #### L 100.0500, L500.2500 #### [facility] [address] [place], [address] CO2 [Moles/Vol] 30.0 mmol/L Normal 21.0-32.0 [facility] Comment on above: Order Comment: 506.1 Performed By: #### L 100.0500, L500.2500 #### [facility] [address] [place], [address] Creatinine [Mass/Vol] 0.48 mg/dL Low 0.55-1.02 [facility] Comment on above: Order Comment: 506.1 Result Comment: The validity of the calculated GFR GFRAA in patients over 70 years has not been determined. Clinical correlation is essential. Performed By: #### L 100.0500, L500.2500 #### [facility] [address] [place], [address] EST GFR - AA 170 mL/min Normal >60 [facility] Comment on above: Order Comment: 506.1 Result Comment: Afri can Kittitian GFR Calc Performed By: #### L 100.0500, L500.2500 #### [facility] [address] [place], [address] GAP 4 Low 5-15 [facility] Comment on above: Order Comment: 506.1 Performed By: #### L 100.0500, L500.2500 #### [facility] [address] [place], [address] GFR/1.73 sq M.predicted among non-blacks MDRD (S/P/Bld) [Vol rate/Area] 141 mL/min/{1.73_m2} Normal >60 [facility] Comment on above: Order Comment: 506.1 Result Comment: Non- GFR Calc Performed By: #### L 100.0500, L500.2500 #### [facility] [address] [place], [address] Glucose [Mass/Vol] 96 mg/dL Normal 74-106 [facility] Comment on above: Order Comment: 506.1 Performed By: #### L 100.0500, L500.2500 #### [facility] [address] [place], [address] Potassium [Moles/Vol] 3.8 mmol/L Normal 3.5-5.1 [facility] Comment on above: Order Comment: 506.1 Performed By: #### L 100.0500, L500.2500 #### [facility] [address] [place], [address] Sodium [Moles/Vol] 141 mmol/L Normal 136-145 [facility] Comment on above: Order Comment: 506.1 Performed By: #### L 100.0500, L500.2500 #### [facility] [address] [place], [address] Urea nitrogen [Mass/Vol] 11 mg/dL Normal 7-18 [facility] Comment on above: Order Comment: 506.1 Performed By: #### L 100.0500, L500.2500 #### [facility] [address] [place], [address] Basophil percentageOrdered B y: Josi Garcia on 03-27-2024 Basophils/100 WBC (Bld) 0.5 % 0-1 [facility] Blood urea nitrogen (BUN)/cr eatinine ratioOrdered By: Josi Garcia on 03-27-2024 Urea nitrogen/Creatinine [Mass ratio] 23.0 mg/mg High 10-20 [facility] CBC W/Diff, Automatedon 01-0 2-2024 Absolute Lymph 2.32 X10 3/uL Normal 0.83-4.51 [facility] Comment on above: Order Comment: 510-1 Performed By: #### L 500.4100, L100.0100, L500.2500, L501.5200, L501.9520, L501.9985 #### [facility] [address] [place], [address] Absolute Neut 4.8 X10 3/uL Normal 2.0-7.7 [facility] Comment on above: Order Comment: 510-1 Performed By: #### L 500.4100, L100.0100, L500.2500, L501.5200, L501.9520, L501.9985 #### [facility] [address] [place], [address] Basophils/100 WBC (Bld) 0.5 % Normal 0-1 [facility] Comment on above: Order Comment: 510-1 Performed By: #### L 500.4100, L100.0100, L500.2500, L501.5200, L501.9520, L501.9985 #### [facility] [address] [place], [address] Eosinophils/100 WBC (Bld) 1.7 % Normal 0-5 [facility] Comment on above: Order Comment: 510-1 Performed By: #### L 500.4100, L100.0100, L500.2500, L501.5200, L501.9520, L501.9985 #### [facility] [address] [place], [address] Erythrocyte distribution width (RBC) [Ratio] 13.1 % Normal 11.6-14.6 [facility] Comment on above: Order Comment: 510-1 Performed By: #### L 500.4100, L100.0100, L500.2500, L501.5200, L501.9520, L501.9985 #### [facility] [address] [place], [address] Hematocrit (Bld) [Volume fraction] 34.1 % Low 37-47 [facility] Comment on above: Order Comment: 510-1 Performed By: #### L 500.4100, L100.0100, L500.2500, L501.5200, L501.9520, L501.9985 #### [facility] [address] [place], [address] Hemoglobin (Bld) [Mass/Vol] 10.6 g/dL Low 12.0-15.0 [facility] Comment on above: Order Comment: 510-1 Performed By: #### L 500.4100, L100.0100, L500.2500, L501.5200, L501.9520, L501.9985 #### [facility] [address] [facility] [place], [address] IG% 0.400 Normal 0.0-0.9 [facility] Comment on above: Order Comment: 510-1 Result Comment: IG% - Immature Granulocytes (promyelocytes, myelocytes and metamyelocytes) > 1% indicates that a LEFT SHIFT is Present. Performed By: #### L 500.4100, L100.0100, L500.2500, L501.5200, L501.9520, L501.9985 #### [facility] [address] [place], [address] Lymphocytes/100 WBC (Bld) 29.8 % Normal 19-41 [facility] Comment on above: Order Comment: 510-1 Performed By: #### L 500.4100, L100.0100, L500.2500, L501.5200, L501.9520, L501.9985 #### [facility] [address] [place], [address] MCH (RBC) [Entitic mass] 28.7 pg Normal 27.0-32.0 [facility] Comment on above: Order Comment: 510-1 Performed By: #### L 500.4100, L100.0100, L500.2500, L501.5200, L501.9520, L501.9985 #### [facility] [address] [place], [address] MCHC (RBC) [Mass/Vol] 31.1 g/dL Low 32-36 [facility] Comment on above: Order Comment: 510-1 Performed By: #### L 500.4100, L100.0100, L500.2500, L501.5200, L501.9520, L501.9985 #### [facility] [address] [place], [address] MCV (RBC) [Entitic vol] 92.4 fL Normal 81-99 [facility] Comment on above: Order Comment: 510-1 Performed By: #### L 500.4100, L100.0100, L500.2500, L501.5200, L501.9520, L501.9985 #### [facility] [address] [place], [address] Monocytes/100 WBC (Bld) 6.3 % Normal 0-10 [facility] Comment on above: Order Comment: 510-1 Performed By: #### L 500.4100, L100.0100, L500.2500, L501.5200, L501.9520, L501.9985 #### [facility] [address] [place], [address] Neutrophils/100 WBC (Bld) 61.3 % Normal 47-70 [facility] Comment on above: Order Comment: 510-1 Performed By: #### L 500.4100, L100.0100, L500.2500, L501.5200, L501.9520, L501.9985 #### [facility] [address] [place], [address] Nucleated RBC (Bld) [#/Vol] 0 10*3/uL Normal 0-5 [facility] Comment on above: Order Comment: 510-1 Performed By: #### L 500.4100, L100.0100, L500.2500, L501.5200, L501.9520, L501.9985 #### [facility] [address] [place], [address] Platelet mean volume (Bld) [Entitic vol] 9.6 fL Normal 6.2-12.0 [facility] Comment on above: Order Comment: 510-1 Performed By: #### L 500.4100, L100.0100, L500.2500, L501.5200, L501.9520, L501.9985 #### [facility] [address] [place], [address] Platelets (Bld) [#/Vol] 283 10*3/uL Normal 150-450 [facility] Comment on above: Order Comment: 510-1 Performed By: #### L 500.4100, L100.0100, L500.2500, L501.5200, L501.9520, L501.9985 #### [facility] [address] [place], [address] RBC (Bld) [#/Vol] 3.69 10*6/uL Low 4.2-5.4 [facility] Comment on above: Order Comment: 510-1 Performed By: #### L 500.4100, L100.0100, L500.2500, L501.5200, L501.9520, L501.9985 #### [facility] [address] [place], [address] RDW SD 44.1 fl High 35.1-43.9 [facility] Comment on above: Order Comment: 510-1 Performed By: #### L 500.4100, L100.0100, L500.2500, L501.5200, L501.9520, L501.9985 #### [facility] [address] [place], [address] WBC (Bld) [#/Vol] 7.8 10*3/uL Normal 4.4-11.0 [facility] Comment on above: Order Comment: 510-1 Performed By: #### L 500.4100, L100.0100, L500.2500, L501.5200, L501.9520, L501.9985 #### [facility] [address] [place], [address] Carbon dioxide measurementOr dered By: Josi Garcia on 03-27-2024 CO2 [Moles/Vol] 30.0 mmol/L 21.0-32.0 [facility] Chloride measurementOrdered By: Josi Garcia on 03-27-2024 Chloride [Moles/Vol] 107 mmol/L 98-107 [facility] Eosinophil percentageOrdered By: Josi Garcia on 03-27-2024 Eosinophils/100 WBC (Bld) 1.7 % 0-5 [facility] Erythrocyte distribution wid th ratioOrdered By: Josi Garcia on 03-27-2024 Erythrocyte distribution width (RBC) [Ratio] 13.1 % 11.6-14.6 [facility] Erythrocyte distribution wid th standard deviationOrdered By: Josi Garcia on 03-27-2024 Erythrocyte distribution width (RBC) [Entitic vol] 44.1 fL High 35.1-43.9 [facility] Estimated glomerular filtrat ion rate (GFR) AmericanOrdered By: Josi Garcia on 03-27-2024 Estimated GFR (MDRD) Amer 170 mL/min >60 [facility] Comment on above: GFR Calc Glomerular filtration rate ( GFR) estimationOrdered By: Josi Garcia on 03-27-2024 Estimated GFR (MDRD) Non-Af Amer 141 mL/min >60 [facility] Comment on above: Non- GFR Calc Glucose measurementOrdered B y: Josi Garcia on 03-27-2024 Glucose [Mass/Vol] 96 mg/dL 74-106 [facility] Hematocrit Auto (Bld) [Volum e fraction]Ordered By: Josi Garcia on 03-27-2024 Hematocrit (Bld) [Volume fraction] 34.1 % Low 37-47 [facility] Hemoglobin A1con 03-27-2024 HbA1c (Bld) [Mass fraction] 5.4 % Normal 3.8-5.6 [facility] Comment on above: Order Comment: 506.1 Result Comment: Norm al < 5.7 % Prediabetic 5.7 - 6.4 % Diabetic >or= 6.5 % Please note range changes. Performed By: #### L 100.0500, L500.2500 #### [facility] [address] [place], [address] Hemoglobin A1c percentageOrd ered By: Josi Garcia on 03-27-2024 HbA1c (Bld) [Mass fraction] 5.4 % 3.8-5.6 [facility] Comment on above: Normal < 5.7 % Predi abetic 5.7 - 6.4 % Diabetic >or= 6.5 % Please note range changes. Hemoglobin measurementOrdere d By: Josi Garcia on 03-27-2024 Hemoglobin (Bld) [Mass/Vol] 10.6 g/dL Low 12.0-15.0 [facility] High density lipoprotein (HD L) measurementOrdered By: Josi Garcia on 03-27-2024 Cholesterol in HDL [Mass/Vol] 61 mg/dL >40 [facility] Comment on above: The drugs N-Acetylcy steine and Metamizole may falsely depress this assay. Reference Range HDL <40 mg/dL Low HDL Cholesterol HDL >or= 60 mg/dL High HDL Cholesterol Immature granulocytes/100 WB C Auto (Bld)Ordered By: Josi Garcia on 03-27-2024 Immature granulocytes/100 WBC (Bld) 0.400 % 0.0-0.9 [facility] Comment on above: IG% - Immature Granu locytes (promyelocytes, myelocytes and metamyelocytes) > 1% indicates that a LEFT SHIFT is Present. Lipid Profileon 03-27-2024 Cholesterol [Mass/Vol] 150 mg/dL Normal 200 [facility] Comment on above: Order Comment: 506.1 Result Comment: <200 mg/dL Desirable 200-240 mg/dL Borderline >240 mg/dL High Risk Performed By: #### L 100.0500, L500.2500 #### [facility] [address] [place], [address] Cholesterol in HDL [Mass/Vol] 61 mg/dL Normal [facility] Comment on above: Order Comment: 506.1 Result Comment: The drugs N-Acetylcysteine and Metamizole may falsely depress this assay. Reference Range HDL <40 mg/dL Low HDL Cholesterol HDL >or= 60 mg/dL High HDL Cholesterol Performed By: #### L 100.0500, L500.2500 #### [facility] [address] [place], [address] Cholesterol in LDL [Mass/Vol] 64 mg/dL Normal 0-130 [facility] Comment on above: Order Comment: 506.1 Performed By: #### L 100.0500, L500.2500 #### [facility] [address] [place], [address] Cholesterol in VLDL [Mass/Vol] 25 mg/dL Normal 5-40 [facility] Comment on above: Order Comment: 506.1 Performed By: #### L 100.0500, L500.2500 #### [facility] [address] [place], [address] Triglyceride [Mass/Vol] 127 mg/dL Normal [facility] Comment on above: Order Comment: 506.1 Result Comment: The drugs N-Acetylcysteine and Metamizole may falsely depress this assay. Serum Triglycerides Reference Interval Normal <150 mg/dL Borderline high 150 - 199 mg/dL High 200 - 499 mg/dL Very High > or = 500 mg/dL Performed By: #### L 100.0500, L500.2500 #### [facility] [address] [place], [address] Low density lipoprotein (LDL ) cholesterol measurementOrdered By: Josi Garcia on 03-27-2024 Cholesterol in LDL [Mass/Vol] 64 mg/dL 0-130 [facility] Lymphocytes Auto (Unsp spec) [#/Vol]Ordered By: Josi Garcia on 03-27-2024 Lymphocytes (Bld) [#/Vol] 2.32 10*3/uL 0.83-4.51 [facility] Lymphocytes/100 WBC Auto (Un sp spec)Ordered By: Josi Garcia on 03-27-2024 Lymphocytes/100 WBC (Bld) 29.8 % 19-41 [facility] MCV (mean corpuscular volume ) determinationOrdered By: Josi Garcia on 03-27-2024 MCV (RBC) [Entitic vol] 92.4 fL 81-99 [facility] Magnesiumon 03-27-2024 Magnesium [Mass/Vol] 2.1 mg/dL Normal 1.6-2.6 [facility] Comment on above: Order Comment: 506.1 Performed By: #### L 100.0500, L500.2500 #### [facility] [address] [place], [place], [address] Magnesium measurementOrdered By: Josi Garcia on 03-27-2024 Magnesium [Mass/Vol] 2.1 mg/dL 1.6-2.6 [facility] Mean corpuscular hemoglobin (MCH) determinationOrdered By: Josi Garcia on 03-27-2024 MCH (RBC) [Entitic mass] 28.7 pg 27.0-32.0 [facility] Mean corpuscular hemoglobin concentration (MCHC) determinationOrdered By: Josi Garcia on 03-27-2024 MCHC (RBC) [Mass/Vol] 31.1 g/dL Low 32-36 [facility] Mean platelet volume determi nationOrdered By: Josi Garcia on 03-27-2024 Platelet mean volume (Bld) [Entitic vol] 9.6 fL 6.2-12.0 [facility] Monocyte percentageOrdered B y: Josi Garcia on 03-27-2024 Monocytes/100 WBC (Bld) 6.3 % 0-10 [facility] Neutrophil percentageOrdered By: Josi Garcia on 03-27-2024 Neutrophils/100 WBC (Bld) 61.3 % 47-70 [facility] Nucleated red blood cell per centageOrdered By: Josi Garcia on 03-27-2024 Nucleated RBC/100 WBC (Bld) [Ratio] 0 % 0-5 [facility] Platelet countOrdered By: Chuy Garcia on 03-27-2024 Platelets (Bld) [#/Vol] 283 10*3/uL 150-450 [facility] Potassium measurementOrdered By: Josi Garcia on 03-27-2024 Potassium [Moles/Vol] 3.8 mmol/L 3.5-5.1 [facility] RBC Auto (Bld) [#/Vol]Ordere d By: Josi Garcai on 03-27-2024 RBC (Bld) [#/Vol] 3.69 10*6/uL Low 4.2-5.4 [facility] Serum anion gap measurementO rdered By: Josi Garcia on 03-27-2024 Anion gap [Moles/Vol] 4 mmol/L Low 5-15 [facility] Serum or plasma calcium riky urement (mass/volume)Ordered By: Josi Garcia on 03-27-2024 Calcium [Mass/Vol] 9.6 mg/dL 8.5-10.1 [facility] Serum or plasma cholesterol measurement (mass/volume)Ordered By: Josi Garcia on 03-27-2024 Cholesterol [Mass/Vol] 150 mg/dL <200 [facility] Comment on above: <200 mg/dL Desirable 200-240 mg/dL Borderline >240 mg/dL High Risk Serum or plasma creatinine m easurement (mass/volume)Ordered By: Josi Garcia on 03-27-2024 Creatinine [Mass/Vol] 0.48 mg/dL Low 0.55-1.02 [facility] Comment on above: The validity of the calculated GFR & GFRAA in patients over 70 years has not been determined. Clinical correlation is essential. Serum or plasma urea nitroge n measurement (mass/volume)Ordered By: Josi Garcia on 03-27-2024 Urea nitrogen [Mass/Vol] 11 mg/dL 7-18 [facility] Sodium levelOrdered By: Vanna Garcia on 03-27-2024 Sodium [Moles/Vol] 141 mmol/L 136-145 [facility] TSH QnOrdered By: Josi ayala on 03-27-2024 Thyroid Stimulating Hormone (TSH) 2.360 uIU/mL 0.358-3.740 [facility] Thyroid Stim Hormone (TSH)on 03-27-2024 TSH 2.360 uIU/mL Normal 0.358-3.740 [facility] Comment on above: Order Comment: 506.1 Performed By: #### L 100.0500, L500.2500 #### [facility] [place], [address] Triglycerides measurementOrd ered By: Josi Garcia on 03-27-2024 Triglyceride [Mass/Vol] 127 mg/dL <199 [facility] Comment on above: The drugs N-Acetylcy steine and Metamizole may falsely depress this assay.Serum Triglycerides Reference Interval Normal <150 mg/dL Borderline high 150 - 199 mg/dL High 200 - 499 mg/dL Very High > or = 500 mg/dL Very low density lipoprotein (VLDL) cholesterol measurementOrdered By: Josi Garcia on 03-27-2024 VLDL Cholesterol 25 mg/dL 5-40 [facility] White blood cell (WBC) count Ordered By: Josi Garcia on 03-27-2024 WBC (Bld) [#/Vol] 7.8 10*3/uL 4.4-11.0 [facility] Crissy 03-24-2024 RICHARD Telephone ([facility]) DIOR CARVAJAL ([id number]) 1965 F Date Time Provider Department 03/24/24 [facility] During your visit today, we recorded the following information about you: Gerda Dee, ALMA 03/24/2024 4:19 PM Signed Contacted [facility] longterm regarding appointments scheduled for 04/02/24 (xray, MRA) and visit with Dr Spears on 04/07. I was told she is moving today to [facility] in [facility]. I confirmed all her upcoming appointments and was told her appointment sheet will be sent with her to [place]. I called and left a message for her sister Katie regarding her 04/02 imaging studies and appointment with Dr Spears on 04/07 Patient has prednisone for her MRI scheduled for 05/26 but will need refill for the 04/02 scans. Refill sent to Dr Spears. Gerda eDe, RN, BSN Toe [facility] [...] Encounter Status:Closed by GERDA DEE on 03/24/24 [facility] CNCOon 03-14-2024 CNCO Letter Text [facility] CNPNon 03-10-2024 [facility]OR CARVAJAL ([id number]) 1965 F Date Time Provider Department 03/10/24 [facility] During your visit today, we recorded the following information about you: Hayder Mango Annabelle 03/10/2024 1:29 PM Signed General Call Caller : Nieves [facility] Contact or [phone] Reason for Call : Pt is scheduled to have her MRI on 05/26/2024. Nieves is calling for pt's premedication as pt is allergic to the contrast. Please also note the instruction on when pt is to take medication as Nieves thought pt take her premeds 3 days prior to the MRI appt. Patient requesting return call ? Yes Gerda Dee, ALMA 03/11/2024 2:48 PM Signed Attempted to reach Nieves- no answer Predication order and instructions copied and faxed to Nieves fax [phone]- Transmission completed on 03/11 @ 14;42 pm Prednisone 50mg is to be given starting 13 hours before scheduled MRi (on 05/26 @ 9:10 )am, 7 hours before and 1 hour before- for a total of 3 doses of 50mg each. 32- 8 pm 05/26- 2 am 05/26- 8 am Gerda Dee, RN, BSN Toe [facility] [...] - Fully Assessed Reason for Visit: Orders [681] Cmt: Premedication for contrast allergy Prescriptions as [...] Encounter Status:Closed by GERDA DEE on 03/11/24 [facility] Crissy 03-05-2024 [facility] Telephone ([facility]) DIOR CARVAJAL ([id number]) 1965 F Date Time Provider Department 03/05/24 NEUROLOGY PROVIDER [facility] During your visit today, we recorded the following information about you: Nano Ojeda 03/05/2024 5:48 PM Signed Consult Received: Today Dorcas Nova Cv Triage Please schedule below request. Patient resides At [facility] [phone]-let them know of any appointments. Scheduling Request [...] 03/10/2024 5:15 PM Signed Sent staff message "New CV Patient" to PSS team to assist. Imaging updated [...] Encounter Status:Closed by NANO OJEDA on 03/10/24 [facility] Crissy 03-04-2024 [facility] Telephone ([facility]) DIOR CARVAJAL ([id number]) 1965 F Date Time Provider Department 03/04/24 [facility] During your visit today, we recorded the following information about you: Marc Pina RN 03/04/2024 3:53 PM Addendum Patient resides At [facility] [phone]-let them know of any appointments. Scheduling Request [...] Time Frame: next available Orders: consult to [facility] Provider or Provider Group: any [...] 03/21/2022 Grief [F43.21] 05/25/2022 Encounter Status:Closed by DROCAS NOVA on 03/17/24 [facility] Telephone ([facility]) DIOR CARVAJAL ([id number]) 1965 F Date Time Provider Department 03/04/24 [facility] During your visit today, we recorded the following information about you: Marc Pina, RN 03/04/2024 3:56 PM Addendum Scheduling Request - est Patient Time Frame: next available Orders: MRA brain, MRA carotid, MRI cervical spine, XR CERVICAL 2V FLEX/EXT - Ok to arrange close scan close to [place] Visit type: In person within a week from scans with Dr. Spears in person Diagnosis: brain tumor Patient lives in a facility and needs transportation arranged. PLease call [facility] ph [phone]-let them know of any appointments. Dorcas Nova 03/17/2024 11:14 AM Signed Done. Called the facility twice, no answer. (will try again) Mailed reminder. [place] Allergies As of Date: 03/04/2024 Noted Allergy [...] Encounter Status:Closed by DORCAS NOVA on 03[facility]17/24 [facility] (HEMCA3) DIOR CARVAJAL ([id number]) 1965 F Date Time Provider Department 03/04/24 MINI WHYTE HEMCA3 During your visit today, we recorded the following information about you: Marc Pina RN 03/04/2024 11:44 AM Signed Scheduling Request - Established Patient Time Frame: week 05/26 Orders: MRI brain at Provider: Dr. [...] Encounter Status:Closed by MARC PINA on 04/08/24 [facility] CNOVon 02-28-2024 CNOV Office Visit (NSCAMN ) DIOR CARVAJAL ([id number]) 1965 F Date Time Provider Department 02/28/24 [...] No Does patient want to see a Regional Sales Manager? No (yes to any of above refer [...] is accompanied by a staff at the long term care administrator facility where she resides, [place]. Subjective History of Present Illness: Mrs. Carvajal, [...] Surgery: R frontal lobe tumor resection at [facility]- ([id number]) Pathology: Anaplastic astrocytoma Neurosurgeon: Raul Tamez MD [facility] Neurosurgery , [address], [place] Radiation oncologist: Unknown PER SISTER: ONLY HAD RADIATION. NEVER HAD CHEMO However on some [facility] Notes is says - patient had chemo-radiation. 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 SOCIAL: -Patient resides in [facility] -Sister Laureen SARGENT Therapy Status Data Form [...] Smoking statu (more content not included)... Normal [facility] MR Brain WO contraston 02-27 IMPRESSION: * [...] abnormality. Age advanced moderate parenchymal volume loss. Help Desk Engineer: PSCB Transcribe Date/Time: Feb 28 2024 2:24P Dictated by : LEONORA CUELLAR MD This examination was interpreted and the report reviewed and electronically signed by: LEONORA CUELLAR MD on Feb 28 2024 2:37PM [facility] DIVISION OF RADIOLOGY * * *Final Report* * * DATE OF EXAM: Feb 28 2024 2:16PM [facility] 0294 - MRI BRAIN WO IVCON / [...] abnormality. Age advanced moderate parenchymal volume loss. Help Desk Engineer: MAGUI Transcribe Date/Time: Feb 28 2024 2:24P Dictated by : LEONORA CUELLAR MD This examination was interpreted and the report reviewed and electronically signed by: LEONORA CUELLAR MD on Feb 28 2024 2:37PM [facility] Radiology Study observation (narrative) [facility] MR Brain WO contrastOrdered By: Ccf Provider on 02-28-2024 [facility] MRI BRAIN WO IVCONon 024 MRI [...] Consider follow-up MRI brain to reassure stability. Help Desk Engineer: MAGUI Transcribe Date/Time: Mar 04 2024 11:20A Dictated by : LEONORA CUELLAR MD This examination was interpreted and the report reviewed and electronically signed by: LEONORA CUELLAR MD on Feb 28 2024 2:37PM EST This document has been addended by: LEONORA CUELLAR MD on Mar 04 2024 11:48AM EST [id number] Normal [facility] CNOVon 02-13-2024 CNOV Office Visit (PSYTMN ) DIOR CARVAJAL ([id number]) 1965 F Date Time Provider Department 02/13/24 12:30 PM BINDU BURT PSYTMN During your visit today, we recorded the following information about you: Bindu Burt, PhD 02/29/2024 4:56 PM Signed [facility] Department of Neurology Section of Neuropsychology Neuropsychological Evaluation Report CONFIDENTIAL Patient: Dior Carvajal Referred by: Mini Whyte Date of : 1965 Date of Evaluation: 02/13/2024 SUMMARY/IMPRESSIONS: The patient is a 59-year-old, White, female, referred for a neuropsychological evaluation by Mini Whyte MD in the [facility]. 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 Of note, the patient reported [...] astrocytoma s/p right frontal tumor resection at [facility] on 04/27/1992. She is unsure whether she [...] the patient. IADL/ADL: She has resided in [facility], a longterm facility, since 08/05/2022. Her family visits her frequently and is reportedly involved in he (more content not included)... [facility] DIOR CARVAJAL ([id number]) 1965 F Date Time Provider Department 02/06/24 MINI WHYTE [facility] During your visit today, we recorded the following information about you: Gerda Dee RN 02/06/2024 10:13 AM Signed Contacted [facility] and spoke with Johanny. I let her know dates, times and location for patients MRI and visit scheduled for 02/28/24. Sister was also updated who will meet patient here. Transportation to be arranged by facility Gerda Dee RN, BSN [facility] [...] Encounter Status:Closed by GERDA DEE on 02/06/24 [facility] DIOR CARVAJAL ([id number]) 1965 F Date Time Provider Department 02/06/24 MINI WHYTE NSCAMN During your visit today, [...] times for 02/28/24 Gerda Dee, RN, BSN [facility] [...] Encounter Status:Closed by GERDA DEE on 02/06/24 [facility]21-2024 [facility] CARVAJALDIOR ESPINAL ([id number]) 1965 F Date Time Provider Department 01/21/24 MINI WHYTE [facility] During your visit today, we recorded the following information about you: Gerda Dee RN 01/21/2024 1:05 PM Signed Spoke with patient's sister, Katie to let her know that Dr Spears wants Dior to have an MRI in ~ 4 weeks. This will be arranged at [facility] with same day visit (week of 02/24) . A family member needs to be present. At Dior's consultation she came with an aide front he facility and no family. Katie said she works in [employer] and can meet Dior at her appointment. Dior and the facility ([facility] [phone]) will need to know the day/time of appointment to make arrangements. Once appointments are scheduled, we will notify them. Dior does not have My Chart Gerda Dee, RN, BSN [facility] [...] Encounter Status:Closed by GERDA DEE on 02/01/24 [facility] Telephone (NSCAMN) DIOR CARVAJAL ([id number]) 1965 F Date Time Provider Department 01/21/24 MINI WHYTE [facility] During your visit today, we recorded the following information about you: Gerda Dee RN 01/23/2024 11:20 AM Addendum Scheduling Request - Established Patient Time Frame: [facility] week of 02/25/24 Orders: MRI brain Provider: Dr Spears Visit type: In person Diagnosis: astrocytoma *Patient lives in a facility. -Family member to be present at follow up Scheduling Request - New Patient Time Frame: if possible same day as MRI and Dr pSears- if unable to coordinate- next available. Must kacey appointment or call facilty Orders: neuropsychology consult Provider or Provider Group: first availabe Visit type: In person Referring: Dr Spears Diagnosis: cognitive assessment. Kamini John 01/29/2024 10:30 AM Signed Spoke to endo tech from Facility, she is scheduled AND confirmed [...] 05/25/2022 Encounter Status:Closed by KAMINI JOHN on 01/29/24 [facility] CNOVon 01-17-2024 CNOV Office Visit (NSCAMN ) DIOR CARVAJAL ([id number]) 1965 F Date Time Provider Department 01/17/24 10:00 AM MINI WHYTE NSCAMN During your visit [...] No Does patient want to see a Regional Sales Manager? No (yes to any of above refer [...] Patient Consultation Referred by: Leela Escoto DO [address] [place] [id number] Diagnosis: Anaplastic astrocytoma The patient is accompanied by a staff at the nursing home facility where she resides, [place]. Subjective History [...] if she had chemotherapy. Patient resides [facility] records- NO MRI BRAIN IMAGES (last record of MRI brain at [facility] was 05/15/2002) No records related to prior treatment received. Surgery: -R frontal lobe tumor resection at [facility]-04/30/1992 ([id number]) Pathology: Anaplastic astrocytoma Neurosurgeon Unknown Radiation oncologist: Unknown Pertinent History: per recoards -Limited records. NO MRI brain images -L frontal tumor resection done at [facility] 04/30/92 -Pathology- anaplastic astrocytoma January 19, 2024 [...] Currently Atif (more content not included)... Normal [facility] CNPNon 01-08-2024 CNPN Telephone (NSCAMN) DIOR CARVAJAL ([id number]) 1965 F Date Time Provider Department 01/08/24 SELF NSCAMN During your visit today, we recorded the following information about you: Kamini John 01/08/2024 12:10 PM Signed Images in Epic 1. Canal Structure Operator: Who is requesting this appointment?patient and patient's caregiver AND endo tech Nieves [phone] 2. Canal Structure Operator: Please indicate the best contact information for our team to reach you with any questions/concerns we may have? 3. Canal Structure Operator: What is your diagnosis? Other 4. Canal Structure Operator: Have you ever been seen at our center before? If yes, by whom? N/A (If the patient has been seen in our department before, please bypass the triage process and send a message to the rn acute care of the provider that the patient saw in the past. (Patient being referred to us with the same dx)). 5. Canal Structure Operator: Is there a specific doctor you were referred to? N/A 6. Canal Structure Operator: What facility and/or hospital have you been seen at? [facility] Name of facility/name of provider where patient was treated. N/a 7. Canal Structure Operator: For this appointment, we will need to request a few records from you. This will help our triage team be able to select the best provider for your treatment. a. Please provide: Most recent MRI- spine/Brain (Canal Structure Operator will check CareEverywhere for records). 8. Canal Structure Operator: Where was your last imaging completed:December 2023(Ideally should be completed within the last six months). 9. Canal Structure Operator: Have you had any surgeries pertaining to this appointment? No If yes, please obtain pathology report. 10. Canal Structure Operator: Please allow up to 48-72 hours for our triage team to review your records. Once they reviewed your records, we will be in contact with you. a. Was the patient made aware of the turnaround time? Yes 11. Canal Structure Operator: Our department offers virtual visits depending on the provider you are recommended to see and the state that you live in. If able to schedule, would you like a virtual visit?Yes a. If answered yes: Does the patient have MyChart access: No If not, then endo tech will walk patient through getting access to [facility]. b. If no, Are you interested in In Person (If not, please indicate patient refused to schedule at this time and the reason to not proceed with scheduling). 12. Sent to triage pool. (Waiting approval). Umm Nuñez APRN.FORMULA TECHNICIAN 01/15/2024 5:45 AM Addendum Time Frame: First available Provider: Isabell Gruber Lobbous, Malkin, Dhawan, B[place] Referring: Patients family Dx: Anaplastic Astrocytoma Patient: Dior Carvajal Address: Dior Carvajal [id number] [place] [id number] Per Triage: Dior Carvajal is a 58 year old female: 27 years old - resection 1992 and radiation of brain tumor at [facility]. Poor historian with limited records. Pathology is in Care Everywhere. Patient expectations: New Consult Tumor Specifics: Location: brain Pathology: Final Diagnosis FINAL DIAGNOSIS: A,B,CANDD. "Brain tumor": Anaplastic astrocytoma. Previous Evaluations: 12/25/2023 CT BRAIN Impression IMPRESSION: No acute intracranial process. Remote history of RIGHT frontal craniotomy for underlying mass resection, with redemonstrated RIGHT frontal encephalomalacia and gliosis. No overt evidence of disease progression or recurrence on CT, however this is better evaluated with MR brain without and with contrast. Help Desk Engineer: PSCB Transcribe Date/Time: Dec 25 2023 1:22P Dictated by : KATTY DAI MD This examination was interpreted and the report reviewed and electronically signed by: KATTY DAI MD on Dec 25 2023 1:30PM EST Results-Findings * * *Final Report* * * DATE OF EXAM: Dec 25 2023 12:25PM [facility] 0005 - CT BRAIN W IVCON / [...] lobe. There (more content not included)... Normal [facility] CREATININE, BLOOD (POC)on Creatinine [Mass/Vol] 0.60 mg/dL 0.6 - 1.3 mg/dL [facility] eGFR (POCT) mL/min/1.73 m2 [facility] Location:Radiology [address] , [place], [place], [address] [place] [address] POINT OF CARE [facility] CT BRAIN W IVCONon CT BRAIN W IVCON * * *Final Report* * * DATE OF EXAM: Dec 25 2023 12:25PM [facility] 0005 - CT BRAIN W IVCON / [...] with MR brain without and with contrast. Help Desk Engineer: PSCB Transcribe Date/Time: Dec 25 2023 1:22P Dictated by : KATTY DAI MD This examination was interpreted and the report reviewed and electronically signed by: KATTY DAI MD on Dec 25 2023 1:30PM EST [id number] Normal [facility] CT Head W contrast Sherice 10-0 IMPRESSION: No acute intracranial process. Remote history of RIGHT frontal craniotomy for underlying mass resection, with redemonstrated RIGHT frontal encephalomalacia and gliosis. No overt evidence of disease progression or recurrence on CT, however this is better evaluated with MR brain without and with contrast. Help Desk Engineer: MAGUI Transcribe Date/Time: Dec 25 2023 1:22P Dictated by : KATTY DAI MD This examination was interpreted and the report reviewed and electronically signed by: KATTY DAI MD on Dec 25 2023 1:30PM [facility] DIVISION OF RADIOLOGY * * *Final Report* * * DATE OF EXAM: Dec 25 2023 12:25PM [facility] 0005 - CT BRAIN W IVCON / [...] RADIOLOGY Provider, [facility] - 12/25/2023 * * *Final [...] with MR brain without and with contrast. Help Desk Engineer: MAGUI Transcribe Date/Time: Dec 25 2023 1:22P Dictated by : KATTY DAI MD This examination was interpreted and the report reviewed and electronically signed by: KATTY DAI MD on Dec 25 2023 1:30PM EST [facility] Radiology Study observation (narrative) [facility] CT Head W contrast IVOrdered By: Ccf Provider on 12-25-2023 [facility] Crissy 12-24-2023 CNPN Telephone (RCTCCC) DIOR CARVAJAL ([id number]) 1965 F Date Time Provider Department 12/24/23 JOHANNY QUINN During your visit today, we recorded the following information about you: Johanny Quinn, RN 12/24/2023 3:15 PM Signed Pt lives at a intermediate. Chart states that she is allergic to [...] Encounter Status:Closed by JOHANNY QUINN on 12/24/23 [facility] DIOR CARVAJAL ([id number]) 1965 F Date Time Provider Department 08/04/22 LEELA ESCOTO During your visit today, we recorded the following information about you: Adalberto Woods MA 08/04/2022 3:45 PM Signed Patient left message stating her handicap parking placard is going to be expiring and she would like an order for a new one mailed to [address] [place] [address]. Please advise. 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 Patient needs apt. To get into long care facitly . Please contact Katie at [phone] to schedule apt. Thanks. GEOFF Juárez MA 07/26/2022 1:35 PM Signed Patient had a wellness visit on 12/02/21. Called Katie and left message requesting she call back and let us know what the letter needs to state. GEOFF Rowe MA 07/26/2022 3:44 PM Signed Pt. Daughter katie [phone] states letter needs to say pt. Needs nursing home care. GEOFF Juárez DO 07/27/2022 4:24 PM Signed Is her daughter trying to get her into an extended care facility? Is she trying to get insurance to pay for it? What would be the reasons for her needing long term care administrator care, in the opinion of her daughter? Thanks DO Riley Oakes MA 07/28/2022 7:36 AM Signed Left message on [employer] vm to call us back with all this [...] to get her dad in a facility (intermediate also). Please advise. GEOFF Juárez MA 07/28/2022 11:40 AM Signed [facility] in [place] will be faxing over information. GEOFF Juárez MA 07/28/2022 2:41 PM Addendum [facility] sent fax stating they need current h+p with medication list, doctors order that states longterm placement is needed. Riley Palmer MA Placed in green folder to review Please advise what to send. Thank you Leela Escoto DO 07/31/2022 1:36 PM Signed Letter printed DO Adalberto Oakes MA 07/31/2022 3:09 PM Signed Letter, last office visit and snap shot faxed to [facility] as requested [phone]. Adalberto Woods MA Allergies As of Date: [...] Encounter Status:Closed by RILEY PALMER on 07/19/22 [facility] Lisy 05-25-2022 NORM Office Visit (LAURA) DOIR CARVAJAL ([id number]) 1965 F Date Time Provider Department 05/25/22 11:00 AM LEELA ESCOTO During your visit today, we recorded the following information about you: Temperature Pulse Blood pressure Weight 98.1 degrees 87/minute 110/70 79.8 kg Height 1.676 m Leela Escoto DO 05/25/2022 1:02 PM Signed Subjective The history [...] ?C (98.1 ?F) Ht 167.6 cm (5' 6") Wt 79.8 kg (176 lb) SpO2 93% [...] pt's father cannot continue to go to [facility] weekly and cannot go to another pharmacy - OXYCODONE 5 MG TABLET 3. Grief - ICD9: 309.0, ICD10: F43.21 Pt's son in February 26. Smoker - ICD9: 305.1, ICD1 (more content not included)... Normal [facility] CNPNon 05-25-2022 CNPN Telephone (AGFAMPLE) DIOR CARVAJAL ([id number]) 1965 F Date Time Provider Department 05/25/22 LEELA ESCOTO During your visit today, we recorded the following information about you: Xochitl Torres MA 05/25/2022 11:51 AM Signed ----- Message from Leela Escoto DO sent at 05/25/2022 11:40 AM EST ----- Please call [facility] pharmacy and find out when they [...] 05/26/2022 8:44 AM Signed Please notify pt [facility] pharmacy said they do not know when [...] Status:Closed by XOCHITL TORRES on 05/25/22 Normal [facility] UA DIP, URINE (POC)on 2022 BILIRUBIN UA (POCT) Negative Negative [facility] CLARITY UA (POCT) Cloudy [facility] COLOR UA (POCT) Dark yellow [facility] GLUCOSE UA (POCT) Negative Negative mg/dL [facility] HEMOGLOBIN/BLOOD UA (POCT) Trace-intact Abnormal Negative [facility] KETONE UA (POCT) Negative Negative mg/dL [facility] LEUKOCYTES UA (POCT) Small Abnormal Negative [facility] N[facility]RITE UA (POCT) Negative Negative [facility] PH UA (POCT) 7.5 4.5 - 8.0 [facility] Protein Ql (U) 30 mg/dL Abnormal Negative mg/dL [facility] SPECIFIC GRAVITY UA (POCT) 1.025 1.005 - 1.030 [facility] UROBILINOGEN UA (POCT) 0.2 E.U./dL Deepa l E.U./dL [facility] ED NOTEon 03-21-2022 ED NOTE HNO ID: [id number] Author: Fausto Sawyer RN Service: Emergency Medicine [...] time. Patient's father driving patient home. Normal [facility] ED PROV NOTEon 03-21-2022 ED PROV NOTE HNO ID: [id number] Author: Seth Pillai MD Service: Emergency Medicine [...] she does go to the bathroom its "dribbling" painful and more often. She denies history [...] reviewed and are negative. Physical Exam Vitals [03/20/221811] BP Pulse Temp Temp src Resp SpO2 Weight Height 141/84 (!) 104 36.5 ?C (97.7 ?F) Temporal 15 96 % 78.9 kg (174 lb) 1.676 m (5' 6") Physical Exam Constitutional: Appearance: She is not [...] for assess (more content not included)... Normal [facility] Basic metabolic 2000 panelon 03-20-2022 Anion gap [Moles/Vol] 11 mmol/L Normal 9-18 [facility] Comment on above: Order Comment: Speci men Type: BLOOD SPECIMEN Ordering Facility: [facility] Address: [address] [place] [address] Performed By: #### 1 798-8, 93960-0, 3016-3 #### [facility] CLIA [id number] [address] [place] [address] [place] Calcium [Mass/Vol] 10.3 mg/dL High 8.5-10.2 [facility] Comment on above: Order Comment: Speci men Type: BLOOD SPECIMEN Ordering Facility: [facility] Address: [address] [place] [address] Performed By: #### 1 798-8, 41200-6, 3016-3 #### [facility] CLIA [id number] [address] [place] [address] [place] Chloride [Moles/Vol] 102 mmol/L Normal 97-105 [facility] Comment on above: Order Comment: Speci men Type: BLOOD SPECIMEN Ordering Facility: [facility] Address: [address] [place] [address] Performed By: #### 1 798-8, 01992-4, 3016-3 #### [facility] CLIA [id number] [address] [place] [address] [place] CO2 [Moles/Vol] 26 mmol/L Normal 22-30 [facility] Comment on above: Order Comment: Speci men Type: BLOOD SPECIMEN Ordering Facility: [facility] Address: [address] [place] [address] Performed By: #### 1 798-8, 47266-6, 3016-3 #### [facility] CLIA [id number] [address] [place] [address] [place] Creatinine [Mass/Vol] 0.49 mg/dL Low 0.58-0.96 [facility] Comment on above: Order Comment: Speci men Type: BLOOD SPECIMEN Ordering Facility: [facility] Address: [address] [place] [address] Performed By: #### 1 798-8, 32958-8, 3016-3 #### [facility] CLIA [id number] [address] [place] [address] [place] ESTIMATED GLOMERULAR FILTRATION RATE 109 mL/min/1.73m??? Normal >=60 [facility] Comment on above: Order Comment: Jayme harding Type: BLOOD SPECIMEN Ordering Facility: [facility] Address: [address] [place] [address] Result Comment: Janae mated Glomerular Filtration Rate [...] actual GFR. Performed By: #### 1 798-8, 83859-1, 3016-3 #### [facility] CLIA [id number] [address] [place] [address] [place] Glucose [Mass/Vol] 122 mg/dL High 74-99 [facility] Comment on above: Order Comment: Jayme meaghan Type: BLOOD SPECIMEN Ordering Facility: [facility] Address: [address] [place] [address] Result Comment: The [place] Diabetes Association (ADA) provides guidance for cutoff [...] Standards of Medical Care in Diabetes 2016, [place] [employer] Association. Diabetes Care. 2016.39(Suppl 1). Performed By: #### 1 798-8, 54486-5, 3016-3 #### [facility] CLIA [id number] [address] [place] [address] [place] Potassium [Moles/Vol] 3.7 mmol/L Normal 3.7-5.1 [facility] Comment on above: Order Comment: Speci meaghan Type: BLOOD SPECIMEN Ordering Facility: [facility] Address: [address] [place] [address] Performed By: #### 1 798-8, 61542-1, 3016-3 #### [facility] CLIA [id number] [address] [place], [place] [address] [place] [address] [place] Sodium [Moles/Vol] 139 mmol/L Normal 136-144 [facility] Comment on above: Order Comment: Jayme harding Type: BLOOD SPECIMEN Ordering Facility: [facility] Address: [address] [place] [address] Performed By: #### 1 798-8, 82668-6, 3016-3 #### [facility] CLIA [id number] [address] [place], [place] [address] [place] [address] [place] Urea nitrogen [Mass/Vol] 9 mg/dL Normal 7-21 [facility] Comment on above: Order Comment: Jayme harding Type: BLOOD SPECIMEN Ordering Facility: [facility] Address: [address] [place] [address] Performed By: #### 1 798-8, 65429-7, 3016-3 #### [facility] CLIA [id number] [address] [place] [address] [place] CBC W Auto Differential pane l (Bld)on 03-20-2022 Basophils (Bld) [#/Vol] 0.03 10*3/uL Normal <0.11 [facility] Comment on above: Order Comment: Nickyi meaghan Type: BLOOD SPECIMEN Ordering Facility: [facility] Address: [address] [place] [address] [place] [address] Result Comment: Diff erential confirmed by visual scan of peripheral blood smear slide. Performed By: #### 5 7021-8 #### [facility] CLIA [id number] [address] [place], [place] [address] [place] [address] Basophils/100 WBC (Bld) 0.2 % Normal [facility] Comment on above: Order Comment: Speci men Type: BLOOD SPECIMEN Ordering Facility: [facility] Address: [address] [place] [address] Performed By: #### 5 7021-8 #### [facility] CLIA [id number] [address] OF [facility] Differential cell count method Nom (Bld) Auto Normal [facility] Comment on above: Order Comment: Speci men Type: BLOOD SPECIMEN Ordering Facility: [facility] Address: [address] [place] [address] Performed By: #### 5 7021-8 #### [facility] CLIA [id number] [address] Eosinophils (Bld) [#/Vol] 0.04 10*3/uL Normal <0.46 [facility] Comment on above: Order Comment: Speci men Type: BLOOD SPECIMEN Ordering Facility: [facility] Address: [address] [place] [address] Performed By: #### 5 7021-8 #### [facility] CLIA [id number] [address] Eosinophils/100 WBC (Bld) 0.3 % Normal [facility] Comment on above: Order Comment: Speci men Type: BLOOD SPECIMEN Ordering Facility: [facility] Address: [address] [place] [address] Performed By: #### 5 7021-8 #### [facility] CLIA [id number] [address] [place] Erythrocyte distribution width (RBC) [Ratio] 12.8 % Normal 11.5-15.0 [facility] Comment on above: Order Comment: Speci men Type: BLOOD SPECIMEN Ordering Facility: [facility] Address: [address] [place] [address] Performed By: #### 5 7021-8 #### [facility] CLIA [id number] [address] [place] [address] [place] Hematocrit (Bld) [Volume fraction] 39.9 % Normal 36.0-46.0 [facility] Comment on above: Order Comment: Speci men Type: BLOOD SPECIMEN Ordering Facility: [facility] Address: [address] [place] [address] Performed By: #### 5 7021-8 #### [facility] CLIA [id number] [address] [place] [address] [place] Hemoglobin (Bld) [Mass/Vol] 12.8 g/dL Normal 11.5-15.5 [facility] Comment on above: Order Comment: Speci men Type: BLOOD SPECIMEN Ordering Facility: [facility] Address: [address] [place] [address] Performed By: #### 5 7021-8 #### [facility] CLIA [id number] [address] [place] [address] Immature granulocytes (Bld) [#/Vol] 0.03 10*3/uL Normal <0.10 [facility] Comment on above: Order Comment: Speci men Type: BLOOD SPECIMEN Ordering Facility: [facility] Address: [address] [place] [address] Performed By: #### 5 7021-8 #### [facility] CLIA [id number] [address] [place] Immature granulocytes/100 WBC (Bld) 0.2 % Normal [facility] Comment on above: Order Comment: Speci men Type: BLOOD SPECIMEN Ordering Facility: [facility] Address: [address] [place] [address] Performed By: #### 5 7021-8 #### [facility] CLIA [id number] [address] Lymphocytes (Bld) [#/Vol] 1.95 10*3/uL Normal 1.00-4.00 [facility] Comment on above: Order Comment: Speci men Type: BLOOD SPECIMEN Ordering Facility: [facility] Address: [address] [place] [address] Performed By: #### 5 7021-8 #### [facility] CLIA [id number] [address] Lymphocytes/100 WBC (Bld) 12.2 % Normal [facility] Comment on above: Order Comment: Speci men Type: BLOOD SPECIMEN Ordering Facility: [facility] Address: [address] [place] [address] Performed By: #### 5 7021-8 #### [facility] CLIA [id number] [address] [place] MCH (RBC) [Entitic mass] 29.6 pg Normal 26.0-34.0 [facility] Comment on above: Order Comment: Speci men Type: BLOOD SPECIMEN Ordering Facility: [facility] Address: [address] [place] [address] Performed By: #### 5 7021-8 #### [facility] CLIA [id number] [address] OF [facility] MCHC (RBC) [Mass/Vol] 32.1 g/dL Normal 30.5-36.0 [facility] Comment on above: Order Comment: Speci men Type: BLOOD SPECIMEN Ordering Facility: [facility] Address: [address] [place] [address] Performed By: #### 5 7021-8 #### [facility] CLIA [id number] [address] MCV (RBC) [Entitic vol] 92.4 fL Normal 80.0-100.0 [facility] Comment on above: Order Comment: Speci men Type: BLOOD SPECIMEN Ordering Facility: [facility] Address: [address] [place] [address] Performed By: #### 5 7021-8 #### [facility] CLIA [id number] [address] [place] [address] [place] Monocytes (Bld) [#/Vol] 0.72 10*3/uL Normal <0.87 [facility] Comment on above: Order Comment: Speci men Type: BLOOD SPECIMEN Ordering Facility: [facility] Address: [address] [place] [address] Performed By: #### 5 7021-8 #### [facility] CLIA [id number] [address] [place] [address] [place] Monocytes/100 WBC (Bld) 4.5 % Normal [facility] Comment on above: Order Comment: Speci men Type: BLOOD SPECIMEN Ordering Facility: [facility] Address: [address] [place] [address] Performed By: #### 5 7021-8 #### [facility] CLIA [id number] [address] [place] [address] [place] Neutrophils (Bld) [#/Vol] 13.18 10*3/uL High 1.45-7.50 [facility] Comment on above: Order Comment: Speci men Type: BLOOD SPECIMEN Ordering Facility: [facility] Address: [address] [place] [address] Performed By: #### 5 7021-8 #### [facility] CLIA [id number] [address] [place] [address] [place] Neutrophils/100 WBC (Bld) 82.6 % Normal [facility] Comment on above: Order Comment: Speci men Type: BLOOD SPECIMEN Ordering Facility: [facility] Address: [address] [place] [address] Performed By: #### 5 7021-8 #### [facility] CLIA [id number] [address] [place] [address] [place] Nucleated RBC (Bld) [#/Vol] Normal [facility] Comment on above: Order Comment: Speci men Type: BLOOD SPECIMEN Ordering Facility: [facility] Address: [address] [place] [address] Performed By: #### 5 7021-8 #### [facility] CLIA [id number] [address] [place] [address] [place] Nucleated RBC/100 WBC (Bld) [Ratio] Normal [facility] Comment on above: Order Comment: Speci men Type: BLOOD SPECIMEN Ordering Facility: [facility] Address: [address] [place] [address] Performed By: #### 5 7021-8 #### [facility] CLIA [id number] [address] [place] [address] [place] Platelet mean volume (Bld) [Entitic vol] 9.2 fL Normal 9.0-12.7 [facility] Comment on above: Order Comment: Speci men Type: BLOOD SPECIMEN Ordering Facility: [facility] Address: [address] [place] [address] Performed By: #### 5 7021-8 #### [facility] CLIA [id number] [address] [place] [address] [place] Platelets (Bld) [#/Vol] 303 10*3/uL Normal 150-400 [facility] Comment on above: Order Comment: Speci men Type: BLOOD SPECIMEN Ordering Facility: [facility] Address: [address] [place] [address] Result Comment: RARE PLATELET CLUMPS NO CLOT Performed By: #### 5 7021-8 #### [facility] CLIA [id number] [address] [place] [address] [place] Platelets Estimate (Bld) [#/Vol] Adequate Normal [facility] Comment on above: Order Comment: Speci men Type: BLOOD SPECIMEN Ordering Facility: [facility] Address: [address] [place] [address] Performed By: #### 5 7021-8 #### [facility] CLIA [id number] [address] RBC (Bld) [#/Vol] 4.32 10*6/uL Normal 3.90-5.20 [facility] Comment on above: Order Comment: Speci men Type: BLOOD SPECIMEN Ordering Facility: [facility] Address: [address] [place] [address] Performed By: #### 5 7021-8 #### [facility] CLIA [id number] [address] [place] [address] RED CELL MORPH Reviewed: unremarkable Normal [facility] Comment on above: Order Comment: Speci men Type: BLOOD SPECIMEN Ordering Facility: [facility] Address: [address] [place] [address] Performed By: #### 5 7021-8 #### [facility] CLIA [id number] [address] [place] [address] WBC (Bld) [#/Vol] 15.95 10*3/uL High 3.70-11.00 [facility] Comment on above: Order Comment: Speci men Type: BLOOD SPECIMEN Ordering Facility: [facility] Address: [address] [place] [address] Performed By: #### 5 7021-8 #### [facility] CLIA [id number] [address] [place] [address] CT ABD/PEL WO IVCONon 2021 CT ABD/PEL WO IVCON * * *Final Report* * * DATE OF EXAM: Mar 20 2022 8:50PM [facility] 0531 - CT ABD/PEL WO IVCON / [...] arthroplasty has been performed. Lower thorax: Unremarkable. Superintendent Drilling (topogram) images: IMPRESSION: Left pelvic kidney with nephrolithiasis looks similar. There is no obstructive uropathy. Help Desk Engineer: [facility] Transcribe Date/Time: Mar 20 2022 9:05P Dictated by : LESLY [place] MD This examination was interpreted and the report reviewed and electronically signed by: LESLY [place] MD on Mar 20 2022 9:18PM EST [id number] [facility] ED NOTEon 03-20-2022 ED NOTE HNO ID: [id number] Author: Fausto Sawyer RN Service: Emergency Medicine Author Type: Registered Nurse Type: ED Notes Filed: 03/20/2022 9:31 PM Note Text: Patient informed about the name of the medication(s), what the medication(s) is(are) for, and what to expect with/from med administration. Patient given opportunity to ask questions. Medication(s) include: Macrobid. [facility] ED NOTE HNO ID: [id number] Author: Fausto Sawyer RN Service: Emergency Medicine Author Type: Registered Nurse Type: ED Notes Filed: 03/20/2022 9:26 PM Note Text: Physician at bedside. [facility] ED NOTE HNO ID: [id number] Author: Pau Castañeda RN Service: Nursing Author Type: Registered Nurse Type: ED Notes Filed: 03/20/2022 7:16 PM Note Text: Report to ALMA Lambert Normal [facility] ED NOTE HNO ID: [id number] Author: Fausto Sawyer RN Service: Emergency Medicine Author Type: Registered Nurse Type: ED Notes Filed: 03/20/2022 10:11 PM Note Text: Change of shift report received from Pau Clay RN. This RN assumed patient care at this time. Normal [facility] ED NOTE HNO ID: [id number] Author: Pau Castañeda RN Service: Nursing Author Type: Registered Nurse Type: ED Notes Filed: 03/20/2022 6:50 PM Note Text: Pt taken to bathroom, unable to void [facility] ED NOTE HNO ID: [id number] Author: Pau Castañeda RN Service: Nursing Author Type: Registered Nurse Type: ED Notes Filed: 03/20/2022 6:19 PM Note Text: Pt arrives with report of UTI, noticed symptoms about 1 week ago. Pt reports frequency, burning, and "always going". Pt reports pain "in the crotch", pt reports pain is constant Normal [facility] Urinalysis complete pnl Uron 03-20-2022 Urinalysis [...] 2 <10,000 CFU/ml Normal urogenital keisha Normal [facility] Comment on above: Order Comment: Speci men Type: URINE SPECIMENOrdering Facility: [facility] Address: [address] [place] [address] Performed By: #### 2 4356-8 ####[facility] [id number] [place] [address] [facility] [id number] [place] [address] [facility] CNOVon 02-24-2022 CNOV Office Visit (AGFAMPLE) DIOR CARVAJAL ([id number]) 1965 F Date Time Provider Department 02/24/22 [...] burning in her abdomen, feels like her "guts are on fire" The pain wakes her up in the [...] ?F) Resp 16 Ht 167.6 cm (5' 6") Wt 80.7 kg (178 lb) SpO2 93% [...] Tenderness: There (more content not included)... Normal [facility] CT ABD/PEL WO IVCONon 2021 CT ABD/PEL WO IVCON * * *Final Report* * * DATE OF EXAM: Jan 18 2022 3:44PM [facility] [place] ABD/PEL WO IVCON / [...] Lower thorax: No acute osseous abnormality identified. Superintendent Drilling (topogram) images: No additional findings. IMPRESSION: No acute process identified involving the abdomen or pelvis. Left pelvic kidney and left nephrolithiasis. Additional findings as above. Help Desk Engineer: [facility] Transcribe Date/Time: Jan 20 2022 1:57P Dictated by : SETH CHAPMAN MD This examination was interpreted and the report reviewed and electronically signed by: SETH CHAPMAN MD on Jan 20 2022 2:02PM EST [id number] Normal [facility] C diff Tox gens Stl Ql BARB+p robeon 12-27-2021 C. difficile toxin genes BARB+probe Ql (Stl) Negative Normal Negative for C. difficile toxin by PCR [facility] Comment on above: Order Comment: Jayme harding Type: STOOL SPECIMEN Ordering Facility: [facility] Address: [address] [place] [address] Performed By: #### 5 4067-4 #### [facility] CLIA [id number] [address] [place] [address] OF [facility] FECAL LACTOFERRIN/LEUKOCYTES on 12-27-2021 Lactoferrin IA Ql (Stl) Negative for lactoferrin, which may indicate the absence of fecal white blood cells Normal Negative [facility] Comment on above: Order Comment: Jayme harding Type: BLOOD SPECIMEN Ordering Facility: [facility] Address: [address] [place] [address] Performed By: #### 1 798-8, 89053-7, 3016-3 #### [facility] CLIA [id number] [address] [place] [address] [place] GI pathogens Pnl Stl Culton 12-27-2021 Gastrointestinal pathogens panel Cx (Stl) CULTURE, STOOL: No Salmonella, Shigella, Campylobacter or E. coli O157:H7 isolated Normal [facility] Comment on above: Performed By: #### 8 2305-4 ####[facility] [id number] [place] [address] [place] O+P Spec Microon 12-27-2021 Ova and parasites identified LM Nom (Unsp spec) OVA AND PARASITE EXAM: No Parasites Seen Normal [facility] Comment on above: Performed By: #### 6 73-4 ####[facility] [id number] [place] [address] [place] Amylase SerPl-cCncon 022 Amylase [Catalytic activity/Vol] 32 U/L Normal 30-104 [facility] Comment on above: Order Comment: Jayme harding Type: BLOOD SPECIMEN Ordering Facility: [facility] Address: [address] [place] [address] Performed By: #### 1 798-8, 78868-4, 3016-3 #### [facility] CLIA [id number] [address] [place] [address] [place] CBC W Auto Differential pane l (Bld)on 12-26-2021 Basophils (Bld) [#/Vol] 0.04 10*3/uL Normal <0.11 [facility] Comment on above: Order Comment: Speci men Type: BLOOD SPECIMEN Ordering Facility: [facility] Address: [address] [place] [address] Performed By: #### 1 798-8, 91328-8, 3016-3 #### [facility] CLIA [id number] [address] [place] [address] [place] Basophils/100 WBC (Bld) 0.4 % Normal [facility] Comment on above: Order Comment: Jayme men Type: BLOOD SPECIMEN Ordering Facility: [facility] Address: [address] [place] [address] Performed By: #### 1 798-8, 54271-3, 3015-3 #### [facility] CLIA [id number] [address] [place] [address] [facility] Differential cell count method Nom (Bld) Auto Normal [facility] Comment on above: Order Comment: Speci men Type: BLOOD SPECIMEN Ordering Facility: [facility] Address: [address] [place] [address] Performed By: #### 1 798-8, 46664-5, 3015-3 #### [facility] CLIA [id number] [address] [place] [id number] [place] Eosinophils (Bld) [#/Vol] 0.07 10*3/uL Normal <0.46 [facility] Comment on above: Order Comment: Speci men Type: BLOOD SPECIMEN Ordering Facility: [facility] Address: [address] [place] [address] Performed By: #### 1 798-8, 96455-3, 3 #### [facility] CLIA [id number] [address] [place] Eosinophils/100 WBC (Bld) 0.7 % Normal [facility] Comment on above: Order Comment: Speci men Type: BLOOD SPECIMEN Ordering Facility: [facility] Address: [address] [place] [address] Performed By: #### 1 798-8, 62676-5, 3 #### [facility] CLIA [id number] [address] [place] [address] [place] Erythrocyte distribution width (RBC) [Ratio] 13.3 % Normal 11.5-15.0 [facility] Comment on above: Order Comment: Speci men Type: BLOOD SPECIMEN Ordering Facility: [facility] Address: [address] [place] [address] Performed By: #### 1 798-8, 86242-6, 3015-3 #### [facility] CLIA [id number] [address] [place] [address] [place] Hematocrit (Bld) [Volume fraction] 42.4 % Normal 36.0-46.0 [facility] Comment on above: Order Comment: Speci men Type: BLOOD SPECIMEN Ordering Facility: [facility] Address: [address] [place] [address] Performed By: #### 1 798-8, 72420-7, 3016-3 #### [facility] CLIA [id number] [address] [place] [address] [place] Hemoglobin (Bld) [Mass/Vol] 13.1 g/dL Normal 11.5-15.5 [facility] Comment on above: Order Comment: Speci men Type: BLOOD SPECIMEN Ordering Facility: [facility] Address: [address] [place] [address] Performed By: #### 1 798-8, 88902-5, 3015-3 #### [facility] CLIA [id number] [address] [place] [address] [place] Lymphocytes (Bld) [#/Vol] 1.92 10*3/uL Normal 1.00-4.00 [facility] Comment on above: Order Comment: Speci men Type: BLOOD SPECIMEN Ordering Facility: [facility] Address: [address] [place] [address] Performed By: #### 1 798-8, 20971-0, 3015-3 #### [facility] CLIA [id number] [address] [place] [address] [place] Lymphocytes/100 WBC (Bld) 19.5 % Normal [facility] Comment on above: Order Comment: Speci men Type: BLOOD SPECIMEN Ordering Facility: [facility] Address: [address] [place] [address] Performed By: #### 1 798-8, 42279-9, 6-3 #### [facility] CLIA [id number] [address] [place], [place] [address] [place] [address] MCH (RBC) [Entitic mass] 29.0 pg Normal 26.0-34.0 [facility] Comment on above: Order Comment: Jayme harding Type: BLOOD SPECIMEN Ordering Facility: [facility] Address: [address] [place] [address] Performed By: #### 1 798-8, 95730-3, 3016-3 #### [facility] CLIA [id number] [address] MCHC (RBC) [Mass/Vol] 30.9 g/dL Normal 30.5-36.0 [facility] Comment on above: Order Comment: Jayme harding Type: BLOOD SPECIMEN Ordering Facility: [facility] Address: [address] [place] [address] Performed By: #### 1 798-8, 86407-8, 3016-3 #### [facility] CLIA [id number] [address] [place] [address] MCV (RBC) [Entitic vol] 93.8 fL Normal 80.0-100.0 [facility] Comment on above: Order Comment: Jayme harding Type: BLOOD SPECIMEN Ordering Facility: [facility] Address: [address] [place] [address] Performed By: #### 1 798-8, 56698-7, 3016-3 #### [facility] CLIA [id number] [address] [place] [address] [place] Monocytes (Bld) [#/Vol] 0.44 10*3/uL Normal <0.87 [facility] Comment on above: Order Comment: Jayme harding Type: BLOOD SPECIMEN Ordering Facility: [facility] Address: [address] [place] [address] Performed By: #### 1 798-8, 85833-6, 3016-3 #### [facility] CLIA [id number] [address] Monocytes/100 WBC (Bld) 4.5 % Normal [facility] Comment on above: Order Comment: Speci men Type: BLOOD SPECIMEN Ordering Facility: [facility] Address: [address] [place] [address] Performed By: #### 1 798-8, 96772-8, 6-3 #### [facility] CLIA [id number] [address] [place] [address] [place] Neutrophils (Bld) [#/Vol] 7.39 10*3/uL Normal 1.45-7.50 [facility] Comment on above: Order Comment: Speci men Type: BLOOD SPECIMEN Ordering Facility: [facility] Address: [address] [place] [address] Performed By: #### 1 798-8, 20414-1, 3 #### [facility] CLIA [id number] [address] [place] [address] [place] Neutrophils/100 WBC (Bld) 74.9 % Normal [facility] Comment on above: Order Comment: Speci men Type: BLOOD SPECIMEN Ordering Facility: [facility] Address: [address] [place] [address] Performed By: #### 1 798-8, 97313-2, 3 #### [facility] [facility] CLIA [id number] [address] [place] [address] [place] Platelet mean volume (Bld) [Entitic vol] 9.7 fL Normal 9.0-12.7 [facility] Comment on above: Order Comment: Speci men Type: BLOOD SPECIMEN Ordering Facility: [facility] Address: [address] [place] [address] Performed By: #### 1 798-8, 13971-1, 3 #### [facility] CLIA [id number] [address] [place] [address] [place] Platelets (Bld) [#/Vol] 311 10*3/uL Normal 150-400 [facility] Comment on above: Order Comment: Speci men Type: BLOOD SPECIMEN Ordering Facility: [facility] Address: [address] [place] [address] Performed By: #### 1 798-8, 66237-6, 3016-3 #### [facility] CLIA [id number] [address] [place] [address] [place] RBC (Bld) [#/Vol] 4.52 10*6/uL Normal 3.90-5.20 [facility] Comment on above: Order Comment: Jayme harding Type: BLOOD SPECIMEN Ordering Facility: [facility] Address: [address] [place] [address] Performed By: #### 1 798-8, 14522-0, 3016-3 #### [facility] CLIA [id number] [address] [place] [id number] [place] [address] [place] WBC (Bld) [#/Vol] 9.86 10*3/uL Normal 3.70-11.00 [facility] Comment on above: Order Comment: Jayme harding Type: BLOOD SPECIMEN Ordering Facility: [facility] Address: [address] [place] [address] Performed By: #### 1 798-8, 52695-5, 3016-3 #### [facility] CLIA [id number] [address] [place] [address] OF [facility] CELIAC ASSOC HLA-DQ GENOTYPE on 12-26-2021 CELIAC CATEGORY Category 3 Normal [facility] Comment on above: Order Comment: Jayme harding Type: BLOOD SPECIMEN Ordering Facility: [facility] Address: [address] [place] [address] Result Comment: CATEGORY DQ HAPLOTYPE RELATIVE RISK [...] predicts celiac disease risk haplotypes in the [place], Hebrew and [place]ian populations. Immunogenetics. 2009 Jun;61(4):247-56. 2. César STERN. Celiac disease: dissecting a complex inflammatory disorder. Ale Rev Immunol. 2002 Nov;2(9):647-55. 3. Rory E, Vineet HS, Danny CA, et al. Risk of pediatric celiac disease according to HLA haplotype and country. N Engl J Med. 2014 ;371(1):42-9. HLA typing performed by PCR-RSSOP and/or NGS. This test was developed and its performance characteristics determined by [facility]. The test has not been cleared or approved by the [place] FDA. However, FDA approval was not necessary since this lab is certified under CLIA for high complexity testing. Test performed by: [facility], [address] [place] [address]. CLIA [id number]. Performed By: #### C PIETER #### [facility] CLIA [id number] [address] [place] [address] CELIAC RISK HAPLOTYPE Positive Normal [facility] Comment on above: Order Comment: Speci men Type: BLOOD SPECIMEN Ordering Facility: [facility] Address: [address] [place] [address] Performed By: #### C PIETER #### [employer] ProductsIA [id number] [address] [place] [address] [place] HLA-DQA1 GENOTYPE HLA-DQA1*: 05, 01 Normal [facility] Comment on above: Order Comment: Speci [facility] Type: BLOOD SPECIMEN Ordering Facility: [facility] Address: [address] [place] [address] Performed By: #### C PIETER #### [employer] [id number] [address] [place] [address] [place] HLA-DQB1 GENOTYPE HLA-DQB1*: 02:01, 06 Normal [facility] Comment on above: Order Comment: Jayme [facility] Type: BLOOD SPECIMEN Ordering Facility: [facility] Address: [address] [place] [address] Performed By: #### C PIETER #### [employer] [id number] [address] [place] [address] CELIAC SCREENon 12-26-2021 GLIAD DEAMIDATED IGA QUAL Negative Normal Negative, Test not Indicated [facility] Comment on above: Order Comment: Jayme [facility] Type: BLOOD SPECIMEN Ordering Facility: [facility] Address: [address] [place] [address] Result Comment: This is used as an aid in diagnosis of celiac disease. Clinical correlation is required. The following results were obtained with an [employer] QUANTA Lite Gliadin IgA DENISE Gliadin. Gliadin IgA values obtained with different manufacturers' assay methods may not be used interchangeably. The magnitude of the reported IgA levels cannot be correlated to an endpoint titer. Performed By: #### 1 798-8, 08809-5, 3 #### [facility] CLIA [id number] [address] [place] [address] [facility] Gliadin peptide IgA Qn (S) 2 Units Normal <20 [facility] Comment on above: Order Comment: Jayme [facility] Type: BLOOD SPECIMEN Ordering Facility: [facility] Address: [address] [place] [address] Performed By: #### 1 798-8, , 3015-05 #### [facility] CLIA [id number] [address] [place] [address] [facility] [place] INTERPRETATION No serological evidence of celiac disease, however, if celiac disease is clinically suspected and patient is not on gluten-free diet, histological diagnosis may be considered. HLA testing may help with risk assessment. Normal [facility] Comment on above: Order Comment: Jayme [facility] Type: BLOOD SPECIMEN Ordering Facility: [facility] Address: [address] [place] [address] Performed By: #### 1 798-8, , 3015-05 #### [facility] CLIA [id number] [address] [place] [address] [facility] TRANSGLUTAMINASE IGA QUAL Negative Normal Negative, Test not Indicated [facility] Comment on above: Order Comment: Jayme [facility] Type: BLOOD SPECIMEN Ordering Facility: [facility] Address: [address] [place] [address] Result Comment: The following results were obtained with the [employer] QAUNTA Lite h-tTG IgA DENISE. h-tTG IgA values obtained with different manufacturers' assay methods may not be used interchangeable. The magnitude of the reported IgA levels cannot be correlated to an endpoint titer. This is used as an aid in diagnosis of celiac disease. Clinical correlation is required. Performed By: #### 1 798-8, 01322-9, 3 #### [facility] CLIA [id number] [address] [place] [address] [place] tTG IgA Qn (S) 3 Units Normal <20 [facility] Comment on above: Order Comment: Speci men Type: BLOOD SPECIMEN Ordering Facility: [facility] Address: [address] [place] [address] Performed By: #### 1 798-8, 59195-2, 3016-3 #### [facility] CLIA [id number] [address] [place] [address] [facility] [place] Comp Metab 2000 Pnl SerPlon 12-26-2021 Bilirubin [Mass/Vol] 0.4 mg/dL Normal 0.2-1.3 [facility] Comment on above: Order Comment: Speci men Type: BLOOD SPECIMEN Ordering Facility: [facility] Address: [address] [place] [address] Performed By: #### 1 798-8, 47670-9, 3016-3 #### [facility] CLIA [id number] [address] OF [facility] Performed By: #### 5 0189-0 #### [facility] CLIA [id number] [address] [place] [address] [place] Comprehensive metabolic 2000 panelon 12-26-2021 Albumin [Mass/Vol] 4.1 g/dL Normal 3.9-4.9 [facility] Comment on above: Order Comment: Speci men Type: BLOOD SPECIMEN Ordering Facility: [facility] Address: [address] [place] [address] Performed By: #### 1 798-8, 21290-1, 3016-3 #### [facility] CLIA [id number] [address] JAAM ALP [Catalytic activity/Vol] 121 U/L Normal 34-123 [facility] Comment on above: Order Comment: Speci men Type: BLOOD SPECIMEN Ordering Facility: [facility] Address: [address] [place], [place] [address] Performed By: #### 1 798-8, 67321-1, 3016-3 #### [facility] CLIA [id number] [address] [place] [address] [facility] ALT With P-5'-P [Catalytic activity/Vol] 8 U/L Normal 7-38 [facility] Comment on above: Order Comment: Speci men Type: BLOOD SPECIMEN Ordering Facility: [facility] Address: [address] [place] [address] Performed By: #### 1 798-8, 16975-0, 3016-3 #### [facility] CLIA [id number] [address] [place] [address] [place] [facility] Anion gap [Moles/Vol] 9 mmol/L Normal 9-18 [facility] Comment on above: Order Comment: Speci men Type: BLOOD SPECIMEN Ordering Facility: [facility] Address: [address] [place] [address] Performed By: #### 1 798-8, 74488-5, 6-3 #### [facility] CLIA [id number] [address] [place], [place] [address] [place] [address] AST With P-5'-P [Catalytic activity/Vol] 15 U/L Normal 13-35 [facility] Comment on above: Order Comment: Speci men Type: BLOOD SPECIMEN Ordering Facility: [facility] Address: [address] [place] [address] Performed By: #### 1 798-8, 68574-6, 6-3 #### [facility] CLIA [id number] [address] [place] [address] [place] Calcium [Mass/Vol] 10.0 mg/dL Normal 8.5-10.2 [facility] Comment on above: Order Comment: Speci men Type: BLOOD SPECIMEN Ordering Facility: [facility] Address: [address] [place] [address] Performed By: #### 1 798-8, 33753-0, 3016-3 #### [facility] CLIA [id number] [address] [place] [address] [place] Chloride [Moles/Vol] 105 mmol/L Normal 97-105 [facility] Comment on above: Order Comment: Specgustavo harding Type: BLOOD SPECIMEN Ordering Facility: [facility] Address: [address] [place] [address] Performed By: #### 1 798-8, 57046-2, 6-3 #### [facility] CLIA [id number] [address] [place] [address] [place] CO2 [Moles/Vol] 28 mmol/L Normal 22-30 [facility] Comment on above: Order Comment: Jayme harding Type: BLOOD SPECIMEN Ordering Facility: [facility] Address: [address] [place] [address] Performed By: #### 1 798-8, 52793-9, 3015-3 #### [facility] CLIA [id number] [address] [place] [address] Creatinine [Mass/Vol] 0.54 mg/dL Low 0.58-0.96 [facility] Comment on above: Order Comment: Jayme harding Type: BLOOD SPECIMEN Ordering Facility: [facility] Address: [address] [place] [address] Performed By: #### 1 798-8, 68316-3, 3015-3 #### [facility] CLIA [id number] [address] [place] [address] ESTIMATED GLOMERULAR FILTRATION RATE 108 mL/min/1.73m??? Normal >=60 [facility] Comment on above: Order Comment: Jayme harding Type: BLOOD SPECIMEN Ordering Facility: [facility] Address: [address] [place] [address] Result Comment: Janae mated Glomerular Filtration Rate [...] actual GFR. Performed By: #### 1 798-8, 72578-2, 3015-3 #### [facility] CLIA [id number] [address] [place] [address] [place] Glucose [Mass/Vol] 94 mg/dL Normal 74-99 [facility] Comment on above: Order Comment: Jayme harding Type: BLOOD SPECIMEN Ordering Facility: [facility] Address: [address] [place] [address] Result Comment: The [place] Diabetes Association (ADA) provides guidance for cutoff [...] Standards of Medical Care in Diabetes 2016, [place] [employer] Association. Diabetes Care. 2016.39(Suppl 1). Performed By: #### 1 798-8, 90161-8, 3 #### [facility] CLIA [id number] [address] [place] [address] [place] Potassium [Moles/Vol] 4.0 mmol/L Normal 3.7-5.1 [facility] Comment on above: Order Comment: Jayme harding Type: BLOOD SPECIMEN Ordering Facility: [facility] Address: [address] [place] [address] Performed By: #### 1 798-8, 91684-1, 3 #### [facility] CLIA [id number] [address] [place] [address] [place] Protein [Mass/Vol] 6.9 g/dL Normal 6.3-8.0 [facility] Comment on above: Order Comment: Speci men Type: BLOOD SPECIMEN Ordering Facility: [facility] Address: [address] [place] [address] Performed By: #### 1 798-8, 48645-5, 3016-3 #### [facility] CLIA [id number] [address] [place], [place] [address] [place] [address] STATES OF [facility] Sodium [Moles/Vol] 142 mmol/L Normal 136-144 [facility] Comment on above: Order Comment: Speci men Type: BLOOD SPECIMEN Ordering Facility: [facility] Address: [address] [place] [address] Performed By: #### 1 798-8, 17731-5, 6-3 #### [facility] CLIA [id number] [address] [place] [address] STATES [facility] Urea nitrogen [Mass/Vol] 8 mg/dL Normal 7-21 [facility] Comment on above: Order Comment: Speci men Type: BLOOD SPECIMEN Ordering Facility: [facility] Address: [address] [place] [address] Performed By: #### 1 798-8, 81581-9, 6-3 #### [facility] CLIA [id number] [address] [place] [address] [place] ESR Westergren method (Bld) [Velocity]on 12-26-2021 ESR (Bld) [Velocity] 19 mm/h Normal 0-30 [facility] Comment on above: Order Comment: Speci men Type: BLOOD SPECIMEN Ordering Facility: [facility] Address: [address] [place] [address] Performed By: #### 4 537-7 #### [facility] CLIA [id number] [address] [place] [address] OF [facility] IgA SerPl-mCncon 12-26-2021 IgA [Mass/Vol] 126 mg/dL Normal 70-400 [facility] Comment on above: Order Comment: Speci men Type: BLOOD SPECIMEN Ordering Facility: [facility] Address: [address] [place] [address] Performed By: #### 2 458-8 #### [facility] CLIA [id number] [address] [place] [address] OF [facility] bilirubin panel [Ma ss/Vol]on 12-26-2021 Bilirubin.conjugated [Mass/Vol] mg/dL Normal <0.2 [facility] Comment on above: Order Comment: Jayme harding Type: BLOOD SPECIMEN Ordering Facility: [facility] Address: [address] [place] [address] Performed By: #### 5 0189-0 #### [facility] CLIA [id number] [address] [place] [address] Bilirubin.indirect [Mass/Vol] mg/dL Normal <1.4 [facility] Comment on above: Order Comment: Jayme harding Type: BLOOD SPECIMEN Ordering Facility: [facility] Address: [address] [place] [address] Performed By: #### 5 0189-0 #### [facility] CLIA [id number] [address] [place] [address] [place] TSH SerPl-aCncon 12-26-2021 TSH Qn 1.490 m[IU]/L Normal 0.270-4.200 [facility] Comment on above: Order Comment: Jayme harding Type: BLOOD SPECIMEN Ordering Facility: [facility] Address: [address] [place] [address] Performed By: #### 1 798-8, 59611-0, 3016-3 #### [facility] CLIA [id number] [address] [place] [address] OF [facility] CNOVon 12-02-2021 CNOV Office Visit (LAURA) DIOR CARVAJAL ([id number]) 1965 F Date Time Provider Department 12/02/21 [...] history and updated the Histories section of [facility]. Pt has history of chronic arthritis She takes tramadol bid for the pain She states this is not quite enough, but she does not want to become addicted to the medication She admits she will never be pain free Pain today is 4/10. Pain at its worst is 9/10 Pain is mostly in her neck She will see GI in [place] on 12/13 She has a history of [...] ?F) Resp 16 Ht 167.6 cm (5' 6") Wt 80.9 kg (178 lb 6.4 oz) [...] No wheez (more content not included)... Normal [facility] SCREENINGon 06-22-2020 [facility] SCREENING Final Report DATE OF EXAM: Jun 22 2020 11:05AM LDW [id number] - [facility] SCREENING / PROCEDURE REASON: Encounter for screening mammogram for malignant neoplasm of breast Physician Interpretation #[id number] - [facility] SCREENING BILATERAL DIGITAL SCREENING MAMMOGRAM WITH CAD: 06/22/2020 HISTORY: / Screening Mammogram-Patient reports NO symptoms. RESULT: TECHNIQUE: The study was acquired using full field digital technology and interpreted from soft copy. Current study was also evaluated with a Computer Aided Detection (CAD). Comparison is made to exams dated: 06/05/2019 mammogram, 05/23/2018 mammogram, 05/17/2017 mammogram, 05/03/2017 mammogram, 01/19/2016 mammogram, and 01/06/2016 mammogram - [facility]. The tissue of both breasts is heterogeneously dense. This may lower the sensitivity of mammography. No significant masses, calcifications, or other findings are seen in either breast. There has been no significant interval change. IMPRESSION: NEGATIVE There is no mammographic evidence of malignancy. A 1 year screening mammogram is recommended. Ricky morrison/maryrad:06/22/2020 11:41:39 Client Business Manager(s): Justin Hopper (Merlin)(M), [facility] letter sent: Normal over 40 Mammogram BI-RADS: [...] Health, Family Medicine, and Medical/Surgical Oncology, the [facility] has carefully reviewed the data and [...] their providers when to stop screening mammograms. Help Desk Engineer: Zara Transcribe Date/Time: Jun 22 2020 10:34A Dictated by : RICKY OROPEZA MD This examination was interpreted and the report reviewed and electronically signed by: RICKY OROPEZA MD on Jun 22 2020 11:41AM EST Normal [facility] Vital Signs Date Time Vital Sign Value Performing Clinician Facility 11-05-2024 10:03-0400 Body temperature 97.59 [degF] Mini Whyte MD Work Phone: [facility] 11-05-2024 10:03-0400 Diastolic blood pressure 54 mm[Hg] Mnii Whyte MD Work Phone: [facility] 11-05-2024 10:03-0400 Heart rate 67 /min Mini Whyte MD Work Phone: [facility] 11-05-2024 10:03-0400 Respiratory rate 17 /min Mini Whyte MD Work Phone: [facility] 11-05-2024 10:03-0400 SaO2% (BldA) [Mass fraction] 97 % Mini Whyte MD Work Phone: [facility] 11-05-2024 10:03-0400 Systolic blood pressure 104 mm[Hg] Mini Whyte MD Work Phone: [facility] 07-31-2024 09:19-0400 Diastolic blood pressure 58 mm[Hg] Mini Whyte MD Work Phone: [facility] Comment on above: notified 07-31-2024 09:19-0400 Systolic blood pressure 81 mm[Hg] Mini Whyte MD Work Phone: [facility] Comment on above: md notified 07-31-2024 09:14-0400 Body temperature 98.2 [degF] Mini Whyte MD Work Phone: [facility] 07-31-2024 09:14-0400 Heart rate 59 /min Mini Whyte MD Work Phone: [facility] Comment on above: md notified 07-31-2024 09:14-0400 Respiratory rate 17 /min Mini Whyte MD Work Phone: [facility] 07-31-2024 09:14-0400 SaO2% (BldA) [Mass fraction] 96 % Mini Whyte MD Work Phone: [facility] 05-26-2024 14:38-0500 Diastolic blood pressure 50 mm[Hg] Dior Anguiano MD Work Phone: [facility] 05-26-2024 14:38-0500 Heart rate 64 /min Dior Anguiano MD Work Phone: [facility] 05-26-2024 14:38-0500 SaO2% (BldA) [Mass fraction] 99 % Dior Anguiano MD Work Phone: [facility] 05-26-2024 14:38-0500 Systolic blood pressure 107 mm[Hg] Dior Anguiano MD Work Phone: [facility] 05-26-2024 13:23-0500 Body temperature 97.81 [degF] Mini Whyte MD Work Phone: [facility] 05-26-2024 13:23-0500 Diastolic blood pressure 50 mm[Hg] Mini Whyte MD Work Phone: [facility] 05-26-2024 13:23-0500 Heart rate 64 /min Mini Whyte MD Work Phone: [facility] 05-26-2024 13:23-0500 Respiratory rate 17 /min Mini Whyte MD Work Phone: [facility] 05-26-2024 13:23-0500 SaO2% (BldA) [Mass fraction] 99 % Mini Whyte MD Work Phone: [facility] 05-26-2024 13:23-0500 Systolic blood pressure 107 mm[Hg] Mini Whyte MD Work Phone: [facility] 02-28-2024 14:51-0500 Body temperature 98.01 [degF] Mini Whyte MD Work Phone: [facility] 02-28-2024 14:51-0500 Diastolic blood pressure 39 mm[Hg] Mini Whyte MD Work Phone: [facility] Comment on above: notified 02-28-2024 14:51-0500 Heart rate 71 /min Mini Whyte MD Work Phone: [facility] 02-28-2024 14:51-0500 Respiratory rate 17 /min Mini Whyte MD Work Phone: [facility] 02-28-2024 14:51-0500 SaO2% (BldA) [Mass fraction] 98 % Mini Whyte MD Work Phone: [facility] 02-28-2024 14:51-0500 Systolic blood pressure 107 mm[Hg] Mini Whyte MD Work Phone: [facility] Comment on above: md notified 02-10-2024 20:22-0500 Body temperature 97.81 [degF] Kyle Lnae APRN.CNP Work Phone: [facility] 02-10-2024 20:22-0500 Diastolic blood pressure 61 mm[Hg] Kyle Lane APRN.FORMULA TECHNICIAN Work Phone: [facility] 02-10-2024 20:22-0500 Heart rate 78 /min Kyle Lane APRN.FORMULA TECHNICIAN Work Phone: [facility] 02-10-2024 20:22-0500 Respiratory rate 18 /min Kyle Lane APRN.FORMULA TECHNICIAN Work Phone: [facility] 02-10-2024 20:22-0500 SaO2% (BldA) [Mass fraction] 97 % Kyle Lane APRN.FORMULA TECHNICIAN Work Phone: [facility] 02-10-2024 20:22-0500 Systolic blood pressure 115 mm[Hg] Kyle Lane APRN.FORMULA TECHNICIAN Work Phone: [facility] 02-07-2024 11:34-0500 Body temperature 98.49 [degF] Hayder Smitha DPM Work Phone: [facility] 02-07-2024 11:34-0500 Diastolic blood pressure 70 mm[Hg] Hayder Smitha DPM Work Phone: [facility] 02-07-2024 11:34-0500 Heart rate 74 /min Hayder Smitha DPM Work Phone: [facility] 02-07-2024 11:34-0500 Respiratory rate 18 /min Hayder Smitha DPM Work Phone: [facility] 02-07-2024 11:34-0500 SaO2% (BldA) [Mass fraction] 98 % Hayder Smitha DPM Work Phone: [facility] 02-07-2024 11:34-0500 Systolic blood pressure 105 mm[Hg] Hayder Smitha DPM Work Phone: [facility] 01-17-2024 10:22-0400 Body mass index (BMI) [Ratio] 29.14 kg/m2 Mini Whyte MD Work Phone: [facility] 01-17-2024 10:22-0400 Body temperature 98.2 [degF] Mini Whyte MD Work Phone: [facility] 01-17-2024 10:22-0400 Body weight 81.9 kg Mini Whyte MD Work Phone: [facility] 01-17-2024 10:22-0400 Diastolic blood pressure 49 mm[Hg] Mini Whyte MD Work Phone: [facility] Comment on above: provider made aware 01-17-2024 10:22-0400 Heart rate 68 /min Mini Whyte MD Work Phone: [facility] 01-17-2024 10:22-0400 Respiratory rate 20 /min Mini Whyte MD Work Phone: [facility] 01-17-2024 10:22-0400 SaO2% (BldA) [Mass fraction] 100 % Mini Whyte MD Work Phone: [facility] Comment on above: 01-17-2024 10:22-0400 Systolic blood pressure 104 mm[Hg] Mini Whyte MD Work Phone: [facility] Comment on above: provider made aware 01-14-2024 18:26-0400 Body temperature 97.2 [degF] Kyle Lane APRN.FORMULA TECHNICIAN Work Phone: [facility] 01-14-2024 18:26-0400 Diastolic blood pressure 79 mm[Hg] Kyle Lane APRN.FORMULA TECHNICIAN Work Phone: [facility] 01-14-2024 18:26-0400 Heart rate 77 /min Kyle Lane APRN.FORMULA TECHNICIAN Work Phone: [facility] 01-14-2024 18:26-0400 Respiratory rate 18 /min Kyle Lane APRN.FORMULA TECHNICIAN Work Phone: [facility] 01-14-2024 18:26-0400 SaO2% (BldA) [Mass fraction] 92 % Kyle Lane APRN.FORMULA TECHNICIAN Work Phone: [facility] 01-14-2024 18:26-0400 Systolic blood pressure 127 mm[Hg] Kyle Lane APRN.FORMULA TECHNICIAN Work Phone: [facility] 12-06-2023 11:16-0400 Body temperature 98.49 [degF] Hayder Smitha DPM Work Phone: [facility] 12-06-2023 11:16-0400 Diastolic blood pressure 70 mm[Hg] Hayder Smitha DPM Work Phone: [facility] 12-06-2023 11:16-0400 Heart rate 77 /min Hayder Smitha DPM Work Phone: [facility] 12-06-2023 11:16-0400 Respiratory rate 18 /min Hayder Smitha DPM Work Phone: [facility] 12-06-2023 11:16-0400 SaO2% (BldA) [Mass fraction] 99 % Hayder Smitha DPM Work Phone: [facility] 12-06-2023 11:16-0400 Systolic blood pressure 122 mm[Hg] Hayder Smitha DPM Work Phone: [facility] 10-04-2023 14:22-0400 Body temperature 98.4 [degF] Hayder Smitha DPM Work Phone: [facility] 10-04-2023 14:22-0400 Diastolic blood pressure 70 mm[Hg] Hayder Smitha DPM Work Phone: [facility] 10-04-2023 14:22-0400 Heart rate 72 /min Hayder Smitha DPM Work Phone: [facility] 10-04-2023 14:22-0400 Respiratory rate 18 /min Hayder Smitha DPM Work Phone: [facility] 10-04-2023 14:22-0400 SaO2% (BldA) [Mass fraction] 99 % Hayder Smitha DPM Work Phone: [facility] 10-04-2023 14:22-0400 Systolic blood pressure 118 mm[Hg] Hayder Smitha DPM Work Phone: [facility] 07-26-2023 19:19-0400 Body temperature 98.4 [degF] Hayder Smitha DPM Work Phone: [facility] 07-26-2023 19:19-0400 Diastolic blood pressure 70 mm[Hg] Hayder Smitha DPM Work Phone: [facility] 07-26-2023 19:19-0400 Heart rate 78 /min Hayder Smitha DPM Work Phone: [facility] 07-26-2023 19:19-0400 Respiratory rate 18 /min Hayder Smitha DPM Work Phone: [facility] 07-26-2023 19:19-0400 SaO2% (BldA) [Mass fraction] 99 % Hayder Smitha DPM Work Phone: [facility] 07-26-2023 19:19-0400 Systolic blood pressure 117 mm[Hg] Hayder Smitha DPM Work Phone: [facility] 05-24-2023 17:38-0500 Body temperature 97 [degF] Hayder Smitha DPM Work Phone: [facility] 05-24-2023 17:38-0500 Diastolic blood pressure 70 mm[Hg] Hayder Smitha DPM Work Phone: [facility] 05-24-2023 17:38-0500 Heart rate 70 /min Hayder Smitha DPM Work Phone: [facility] 05-24-2023 17:38-0500 Respiratory rate 18 /min Hayder Smitha DPM Work Phone: [facility] 05-24-2023 17:38-0500 SaO2% (BldA) [Mass fraction] 99 % Hayder Smitha DPM Work Phone: [facility] 05-24-2023 17:38-0500 Systolic blood pressure 115 mm[Hg] Hayder Smitha DPM Work Phone: [facility] 11-02-2022 09:24-0400 Body temperature 97.81 [degF] Hayder Smitha DPM Work Phone: [facility] 11-02-2022 09:24-0400 Diastolic blood pressure 70 mm[Hg] Hayder Smitha DPM Work Phone: [facility] 11-02-2022 09:24-0400 Heart rate 70 /min Hayder Smitha DPM Work Phone: [facility] 11-02-2022 09:24-0400 Respiratory rate 18 /min Hayder Smitha DPM Work Phone: [facility] 11-02-2022 09:24-0400 SaO2% (BldA) [Mass fraction] 99 % Hayder Smitha DPM Work Phone: [facility] 11-02-2022 09:24-0400 Systolic blood pressure 110 mm[Hg] Hayder Smitha DPM Work Phone: [facility] 08-24-2022 15:31-0400 Body temperature 97.5 [degF] Hayder Smitha DPM Work Phone: [facility] 08-24-2022 15:31-0400 Diastolic blood pressure 70 mm[Hg] Hayder Smitha DPM Work Phone: [facility] 08-24-2022 15:31-0400 Heart rate 77 /min Hayder Smitha DPM Work Phone: [facility] 08-24-2022 15:31-0400 Respiratory rate 17 /min Hayder Smitha DPM Work Phone: [facility] 08-24-2022 15:31-0400 SaO2% (BldA) [Mass fraction] 99 % Hayder Smitha DPM Work Phone: [facility] 08-24-2022 15:31-0400 Systolic blood pressure 110 mm[Hg] Hayder Smitha DPM Work Phone: [facility] 05-25-2022 11:07-0500 Body height 167.6 cm Leela Sheets DO Work Phone: [facility] 05-25-2022 11:07-0500 Body temperature 98.1 [degF] Leela Sheets DO Work Phone: [facility] 05-25-2022 11:07-0500 Body weight 79.83 kg Leela Sheets DO Work Phone: [facility] 05-25-2022 11:07-0500 Diastolic blood pressure 70 mm[Hg] Leela Sheets DO Work Phone: [facility] 05-25-2022 11:07-0500 Heart rate 87 /min Leela Sheets DO Work Phone: [facility] 05-25-2022 11:07-0500 SaO2% (BldA) [Mass fraction] 93 % Leela Sheets DO Work Phone: [facility] 05-25-2022 11:07-0500 Systolic blood pressure 110 mm[Hg] Leela Sheets DO Work Phone: [facility] 03-29-2022 10:35-0500 Body height 167.6 cm Elise Coyner ONCOLOGY NAVIGATOR.FORMULA TECHNICIAN Work Phone: [facility] 03-29-2022 10:35-0500 Body weight 79.38 kg Elise Coyner ONCOLOGY NAVIGATOR.FORMULA TECHNICIAN Work Phone: [facility] 02-24-2022 10:51-0500 Body height 167.6 cm Leela Sheets DO Work Phone: [facility] 02-24-2022 10:51-0500 Body temperature 97.81 [degF] Leela Sheets DO Work Phone: [facility] 02-24-2022 10:51-0500 Body weight 80.74 kg Leela Sheets DO Work Phone: [facility] 02-24-2022 10:51-0500 Diastolic blood pressure 68 mm[Hg] Leela Sheets DO Work Phone: [facility] 02-24-2022 10:51-0500 Heart rate 74 /min Leela Sheets DO Work Phone: [facility] 02-24-2022 10:51-0500 Respiratory rate 16 /min Leela Sheets DO Work Phone: [facility] 02-24-2022 10:51-0500 SaO2% (BldA) [Mass fraction] 93 % Leela Sheets DO Work Phone: [facility] 02-24-2022 10:51-0500 Systolic blood pressure 118 mm[Hg] Leela Sheets DO Work Phone: [facility] Encounters Encounter Date Encounter Type Care Provider Facility Start: 11-19-2024 ambulatory Josi Garcia Facility:[facility] Start: 11-18-2024 ambulatory Everett Hart ity:[facility] Start: 11-10-2024 End: 11-10-2024 Orders Only Mini Whyte MD Work Phone: [facility] Comment on above: Glioblastoma (HCC) ( Primary Dx) Start: 11-07-2024 End: 11-13-2024 Telephone encounter Mini Whyte MD Work Phone: [facility] Comment on above: MARYJANE 2-4 weeks MARYJANE 3 months Start: 11-06-2024 End: 11-06-2024 [facility] Start: 11-06-2024 End: 11-06-2024 Patient encounter procedure Lillie Horton MD Work Phone: [facility] Comment on above: 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); Spasticity; History of brain tumor; History of stroke Start: 11-05-2024 End: 11-05-2024 [facility] Start: 11-05-2024 End: 11-05-2024 Patient encounter procedure Mini Whyte MD Work Phone: [facility] Comment on above: Astrocytoma brain tu mor (HCC) (Primary Dx); Spasticity; Cognitive decline Start: 11-04-2024 ambulatory MINI WHYTE Facility:[facility] Start: 11-04-2024 End: 11-04-2024 Subsequent hospital visit by physician Mri Radio [facility] (I-Stat/1.5t) Work Phone: Radiology Comment on above: 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 Everett Cantor MD -[facility] Start: 08-13-2024 End: 08-13-[address] Josi Garcia MD [facility] Work Phone: Start: 08-13-2024 End: 08-13-[address] Everett Cantor MD -[facility] Start: 08-13-[address] Everett Cantor MD -[facility] Start: 08-13-2024 End: 08-13-2024 ambulatory Everett CURRIE Facility:[facility] Start: 08-08-2024 End: 08-08-[address] Josi Garcia MD [facility] Work Phone: Start: 08-08-2024 End: 08-08-[address] Everett Cantor MD -[facility] Start: 08-07-2024 End: 08-08-2024 ambulatory Everett CURRIE Facility:[facility] Start: 08-07-[address] Josi Garcia MD -[facility] Start: 08-05-2024 End: 08-06-2024 Orders Only Mini Whyte MD Work Phone: [facility] Comment on above: Astrocytoma brain tu mor (HCC) (Primary Dx) MARYJANE 4 weeks Start: 07-31-2024 End: 07-31-2024 ambulatory MINI WHYTE Facility:[facility] Start: 07-31-2024 End: 07-31-2024 Patient encounter procedure Mini Whyte MD Work Phone: [facility] Comment on above: Spasticity (Primary Dx); Astrocytoma brain tumor (HCC) Start: 07-25-2024 End: 09-24-2024 Follow-up encounter Mini Whyte MD Work Phone: [facility] Start: 07-24-2024 ambulatory MINI WHYTE Facility:[facility] Start: 07-24-2024 End: 07-24-2024 Subsequent hospital visit by physician Mri [facility] (I-Stat/1.5t) Work Phone: Radiology Comment on above: 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] Start: 06-27-2024 End: 06-27-2024 Telephone encounter Mini Whyte MD Work Phone: Hematology/Oncology Comment on above: MARYJANE 07/2024 Start: 06-12-2024 End: 11-12-2024 Telephone encounter Mini Whyte MD Work Phone: [facility] Start: 06-09-2024 End: 06-09-2024 Telephone encounter Diane Siu ONCOLOGY NAVIGATOR.FORMULA TECHNICIAN Work Phone: [facility] Comment on above: Appointment Start: 05-28-2024 End: 05-28-2024 Orders Only Mini Whyte MD Work Phone: [facility] Comment on above: Anaplastic astrocyto ma (HCC) (Primary Dx) Start: 05-26-2024 End: 05-26-2024 ambulatory DIOR ANGUIANO Facility:[facility] Start: 05-26-2024 End: 05-26-2024 Office outpatient new [...] Telephone encounter Mini Whyte MD Work Phone: [facility] Comment on above: MARYJANE 3-4 weeks Sign up for My chart MARYJANE 4 weeks Start: 05-26-2024 End: 05-26-2024 ambulatory SELF Facility:[facility] Start: 05-26-2024 End: 05-26-2024 Patient encounter procedure Mini Whyte MD Work Phone: [facility] Comment on above: 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) (Primary Dx); Spondylosis of cervical joint; Cognitive decline; Mild cognitive impairment; Injury of cervical spinal cord, sequela (HCC); Quadriplegia (HCC); Hemiparesis, unspecified hemiparesis etiology, unspecified laterality (HCC); Pathological fracture, other site, initial encounter for fracture; Occlusion and stenosis of unspecified carotid artery; Muscle spasticity Start: 05-26-2024 End: 05-26-2024 [facility] Start: 05-26-2024 End: 05-26-2024 Subsequent hospital visit by physician [facility] Radiology Comment on above: Allergy to intraveno us contrast media [Z91.041] 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] Start: 05-15-2024 End: 05-15-2024 Telephone encounter Mini Whyte MD Work Phone: Hematology/Oncology Comment on above: Patient Update Start: 05-13-2024 End: 07-13-2024 Follow-up encounter Mini Whyte MD Work Phone: [facility] Start: 05-13-2024 End: 05-13-2024 Telephone encounter Mini Whyte MD Work Phone: [facility] Start: 05-12-2024 End: 05-26-2024 Telephone encounter Mini Whyte MD Work Phone: [facility] Comment on above: MARYJANE Add on for 05/26 Start: 05-09-2024 End: 05-09-2024 Telephone encounter Mini Whyte MD Work Phone: [facility] Start: 05-08-2024 End: 05-08-2024 Telephone encounter Mini Whyte MD Work Phone: [facility] Start: 05-08-2024 End: 05-09-2024 ambulatory Mini Whyte MD Work Phone: [facility] Comment on above: 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) (Primary Dx); Allergy to intravenous contrast media; Anaplastic astrocytoma (HCC); Mild cognitive impairment; Cognitive decline; Spondylosis of cervical joint; Injury of cervical spinal cord, sequela (HCC); H/O laminectomy Start: 05-08-2024 End: 05-09-2024 Telemedicine consultation with patient Mnii Whyte MD Work Phone: [facility] Start: 05-07-2024 End: 05-07-2024 Orders Only Mini Whyte MD Work Phone: [facility] Comment on above: Brain tumor (HCC) (P rimary Dx) Start: 05-02-2024 End: 05-02-2024 Telephone encounter Mini Whyte MD Work Phone: Hematology/Oncology Comment on above: Images requested MRA /MRI Start: 04-29-2024 End: 04-29-[address] Josi Garcia MD [facility] Work Phone: Start: 04-29-2024 End: 04-29-[address] Josi Garcia MD -[facility] Work Phone: Start: 04-29-2024 End: 04-29-2024 ambulatory Josi Garcia Facility:[facility] Start: 04-11-2024 End: 04-11-2024 Telephone encounter Mini Whyte MD Work Phone: Hematology/Oncology Comment on above: Patient Update Start: 04-07-2024 ambulatory OSORIO GUNTER Facility:[facility] Start: 04-01-2024 End: 04-01-2024 Telephone encounter Mini Whyte MD Work Phone: [facility] Comment on above: Confirm appt for 04/02 Start: 03-31-2024 End: 03-31-2024 Telephone encounter Mini Whyte MD Work Phone: [facility] Comment on above: Toe Former [employer] - 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 Josi Garcia MD -[facility] Start: 03-31-2024 End: 03-31-2024 ambulatory Josi CURRIE Facility:[facility] Start: 03-28-2024 ambulatory Josi CURRIE Facili ty:[facility] Start: 03-28-[address] Josi Garcia MD -[facility] Start: 03-27-2024 End: 03-27-[address] Josi Garcia MD -[facility] Start: 03-27-2024 End: 03-27-2024 ambulatory Josi CURRIE Facility:[facility] Start: 03-24-2024 End: 03-24-2024 ambulatory Gerda Dee RN Work Phone: [facility] [place] Comment on above: Facility change to [facility] Start: 03-24-2024 End: 03-24-2024 Telephone encounter Mini Whyte MD Work Phone: [facility] Comment on above: MRA 04/02/24- facility aware Allergy to intraveno us contrast media; Anaplastic astrocytoma (HCC); Mild cognitive impairment; Cognitive decline Start: 03-20-2024 End: 03-20-2024 ambulatory Zora Flores ONCOLOGY NAVIGATOR.FORMULA TECHNICIAN Work Phone: [facility] Comment on above: Acute cystitis witho ut hematuria (Primary Dx) Start: 03-20-2024 End: 03-20-2024 Telemedicine consultation with patient Zora Flores ONCOLOGY NAVIGATOR.FORMULA TECHNICIAN Work Phone: [facility] Start: 03-18-2024 End: 03-18-2024 ambulatory Zora Flores ONCOLOGY NAVIGATOR.FORMULA TECHNICIAN Work Phone: [facility] Comment on above: Acute cystitis witho ut hematuria (Primary Dx) Start: 03-18-2024 End: 03-18-2024 Telemedicine consultation with patient Zora Flores ONCOLOGY NAVIGATOR.FORMULA TECHNICIAN Work Phone: [facility] Start: 03-14-2024 End: 03-14-2024 ambulatory Gerda Dee RN Work Phone: [facility] Comment on above: Pathology slides and records requested Path slides not avai lable Start: 03-10-2024 End: 03-11-2024 Telephone encounter Mini Whyte MD Work Phone: [facility] Comment on above: Orders (Premedicatio n for contrast allergy) Start: 03-05-2024 End: 03-10-2024 Orders Only Mini Whyte MD Work Phone: [facility] Comment on above: Allergy to intraveno us [...] procedure Macarena Bain Work Phone: [employer] Start: 03-04-2024 End: 03-06-2024 Progress Note Macarena Bain Work Phone: [facility] [employer] Start: 02-28-2024 End: 02-28-2024 Orders Only Mini Whyte MD Work Phone: [facility] Comment on above: Anaplastic astrocyto ma [...] 02-18-2024 End: 02-18-2024 Orders Only Zora Flores APRN.CNP Work Phone: [facility] Comment on above: Osteoarthritis invol ving multiple joints on both sides of body (Primary Dx) Start: 02-13-2024 End: 02-14-2024 ambulatory MINI SPEARSCLIVE Facility:[facility] Start: 02-10-2024 End: 02-10-[address] JESSE.FORMULA TECHNICIAN Work Phone: [facility] Comment on above: Fall, initial encoun ter (Primary Dx) Start: 02-10-2024 End: 02-10-2024 Telemedicine consultation with patient Kyle Lane JESSE.CHRISTIANO Work Phone: [facility] Start: 02-07-2024 End: 02-07-2024 Unlisted evaluation and management service Hayder Bone DPM Work Phone: Dr. London Campos [facility] Comment on above: Nail dystrophy (Prim josie Dx); Aspirin long-term use Start: 02-06-2024 End: 02-06-2024 Telephone encounter Mini Whyte MD Work Phone: [facility] [place] [facility] Comment on above: Returning Patient's Call; Appointment Appointment confirma tion =facility updated Start: 01-24-2024 End: 01-24-2024 Refill Zorareza Flores APRN.FORMULA TECHNICIAN Work Phone: [facility] Start: 01-23-2024 End: 01-23-2024 Orders Only Mini Whyte MD Work Phone: Hematology/Oncology Comment on above: Astrocytoma (HCC) (P rimary Dx) Start: 01-21-2024 End: 02-01-2024 Telephone encounter Mini Whyte MD Work Phone: [facility] [place] [facility] Comment on above: MARYJANE week of 02/25/24 Appointment follow u p Start: 01-17-2024 End: 01-17-2024 ambulatory LEELA ESCOTO Facility:[facility] Start: 01-17-2024 End: 01-17-2024 Patient encounter procedure Mini Whyte MD Work Phone: [facility] Comment on above: Anaplastic astrocyto ma (HCC) (Primary Dx); Hemiparesis, unspecified hemiparesis etiology, unspecified laterality (HCC); Mild cognitive impairment; Cognitive decline Start: 01-15-2024 End: 01-15-2024 ambulatory Gerda Dee RN Work Phone: [facility] Comment on above: Chart prep/record re view Start: 01-14-2024 End: 01-14-[address] ONCOLOGY NAVIGATOR.FORMULA TECHNICIAN Work Phone: [facility] Comment on above: Fall, initial encoun ter (Primary Dx) Start: 01-14-2024 End: 01-14-2024 Telemedicine consultation with patient Kyle Lane JESSE.FORMULA TECHNICIAN Work Phone: [facility] Start: 01-08-2024 End: 01-08-2024 Telephone encounter Self [facility] Comment on above: Triage (Initial Call ) Start: 01-01-2024 End: 01-01-2024 ambulatory Zora Flores APRN.FORMULA TECHNICIAN Work Phone: [facility] Comment on above: Foul smelling urine (Primary Dx); Recurrent UTI Start: 01-01-2024 End: 01-03-2024 Patient encounter procedure Macarena Layn Work Phone: [employer] Start: 01-01-2024 End: 01-03-2024 Progress Note Macarena Layn Work Phone: [employer] [employer] Start: 01-01-2024 End: 01-01-2024 Telemedicine consultation with patient Zora Flores APRN.FORMULA TECHNICIAN Work Phone: [facility] Start: 12-25-2023 End: 12-25-2023 ambulatory LEELA C JEVON Facility:[facility] Start: 12-25-2023 End: 12-25-2023 Subsequent hospital visit by physician [facility] Radiology Ct Scan Start: 12-24-2023 End: 12-24-2023 Telephone encounter Johanny Quinn RN Radiology Ct Scan Comment on above: Results; Appointment Start: 12-06-2023 End: 12-06-2023 ambulatory Zora Flores APRN.FORMULA TECHNICIAN Work Phone: [facility] Comment on above: Osteoarthritis of mu ltiple joints, unspecified osteoarthritis type (Primary Dx); Essential hypertension; Chronic cervical pain Start: 12-06-2023 End: 12-06-2023 Telemedicine consultation with patient Zora Flores APRN.FORMULA TECHNICIAN Work Phone: [facility] Start: 12-06-2023 End: 12-10-2023 Unlisted evaluation and management service Hayder Bone DPM Work Phone: Dr. London Campos [facility] Comment on above: Nail dystrophy (Prim josie Dx); Aspirin long-term use Start: 11-29-2023 End: 11-29-2023 ambulatory Zora Flores APRN.FORMULA TECHNICIAN Work Phone: [facility] Comment on above: Foul smelling urine (Primary Dx) Start: 11-29-2023 End: 11-29-2023 Telemedicine consultation with patient Zora Flores JESSE.FORMULA TECHNICIAN Work Phone: [facility] Start: 11-06-2023 ambulatory Zora Flores JESSE.FORMULA TECHNICIAN Work Phone: [facility] Comment on above: Leukocytosis, unspec ified type (Primary Dx); Confusion Start: 11-06-2023 Patient encounter procedure Itri Joey Layn Work Phone: [employer] Start: 11-06-2023 Progress Note Itri A Odell Work Phone: [facility] Start: 11-06-2023 Telemedicine consultation with patient Zora Flores JESSE.FORMULA TECHNICIAN Work Phone: [facility] Start: 10-11-2023 ambulatory Zora Zacarias MOLINA.FORMULA TECHNICIAN Work Phone: [facility] Comment on above: Osteoarthritis of mu ltiple joints, unspecified osteoarthritis type (Primary Dx); Left hip pain; Chronic neck pain; Essential hypertension Start: 10-11-2023 Telemedicine consultation with patient Zora Zacarias MOLINA.FORMULA TECHNICIAN Work Phone: [facility] Start: 10-04-2023 Unlisted evaluation and management service Hayder Bone DPM Work Phone: Dr. London Campos [facility] Comment on above: Nail dystrophy (Prim josie Dx); Aspirin long-term use Start: 09-11-2023 Patient encounter procedure Itri Joey aLyn Work Phone: [facility] Start: 09-11-2023 Progress Note Itri A Odell Work Phone: [place] Start: 08-28-2023 ambulatory Zora Zacarias MOLINA.FORMULA TECHNICIAN Work Phone: [facility] Comment on above: Osteoarthritis of mu ltiple joints, unspecified osteoarthritis type (Primary Dx); Left hip pain Start: 08-28-2023 Telemedicine consultation with patient Zora Flores JESSE.FORMULA TECHNICIAN Work Phone: [facility] Start: 08-16-2023 ambulatory Zora Flores APRN.FORMULA TECHNICIAN Work Phone: [facility] Comment on above: Osteoarthritis of mu ltiple joints, unspecified osteoarthritis type (Primary Dx); Chronic neck pain; Essential hypertension Start: 08-16-2023 Telemedicine consultation with patient Zora Flores APRN.FORMULA TECHNICIAN Work Phone: [facility] Start: 07-26-2023 Unlisted evaluation and management service Hayder Bone DPM Work Phone: Dr. London Campos [facility] Comment on above: Nail dystrophy (Prim josie Dx); Aspirin long-term use Start: 07-24-2023 Refill Zora Flores APRN.FORMULA TECHNICIAN Work Phone: [facility] Start: 06-27-2023 Patient encounter procedure Itri A Odell Work Phone: [facility] Start: 06-27-2023 Progress Note Itri A Odell Work Phone: [facility] Start: 06-19-2023 ambulatory Zora Flores APRN.FORMULA TECHNICIAN Work Phone: [facility] Comment on above: Osteoarthritis of mu ltiple joints, unspecified osteoarthritis type (Primary Dx); Chronic neck pain; Essential hypertension Start: 06-19-2023 Telemedicine consultation with patient Zora Flores APRN.FORMULA TECHNICIAN Work Phone: [facility] Start: 05-24-2023 Unlisted evaluation and management service Hayder Bone DPM Work Phone: Dr. London Campos [facility] Comment on above: Nail dystrophy (Prim josie Dx); Aspirin long-term use Start: 05-03-2023 Patient encounter procedure Itri A Odell Work Phone: [facility] Start: 05-03-2023 Progress Note Itri A Odell Work Phone: [facility] Start: 02-28-2023 Patient encounter procedure Itri A Odell Work Phone: [facility] Start: 02-28-2023 Progress Note Macarena Bain Work Phone: [facility] [employer] Start: 02-13-2023 ambulatory Zora Flores APRN.FORMULA TECHNICIAN Work Phone: [facility] Comment on above: Osteoarthritis of mu ltiple joints, unspecified osteoarthritis type (Primary Dx); Chronic neck pain; Essential hypertension Start: 02-13-2023 Telemedicine consultation with patient Zora Flores APRN.FORMULA TECHNICIAN Work Phone: [facility] Start: 01-02-2023 Patient encounter procedure Johngustavo Cook Odell Work Phone: [facility] Start: 01-02-2023 Progress Note Macarena Cook Odell Work Phone: [facility] Start: 12-12-2022 ambulatory Zora Flores APRN.FORMULA TECHNICIAN Work Phone: [facility] Comment on above: Osteoarthritis of mu ltiple joints, unspecified osteoarthritis type (Primary Dx); Chronic neck pain; Essential hypertension Start: 12-12-2022 Telemedicine consultation with patient Zora Flores APRN.FORMULA TECHNICIAN Work Phone: [facility] Start: 11-02-2022 Unlisted evaluation and management service Hayder Bone DPM Work Phone: Dr. London Campos [facility] Comment on above: Nail dystrophy (Prim josie Dx); Aspirin long-term use Start: 09-27-2022 Refill Zora Flores APRN.FORMULA TECHNICIAN Work Phone: [facility] Start: 09-12-2022 ambulatory Zora Flores APRN.FORMULA TECHNICIAN Work Phone: [facility] Comment on above: Osteoarthritis of mu ltiple joints, unspecified osteoarthritis type (Primary Dx); Essential hypertension; Chronic neck pain; Abnormal gait Start: 09-12-2022 Telemedicine consultation with patient Zora Flores APRN.FORMULA TECHNICIAN Work Phone: [facility] Start: 09-07-2022 ambulatory Zora Flores APRN.FORMULA TECHNICIAN Work Phone: [facility] Comment on above: Osteoarthritis of mu ltiple joints, unspecified osteoarthritis type (Primary Dx); Essential hypertension; Chronic neck pain; Abnormal gait OPENED IN ERROR (Iva riley Dx) Start: 09-07-2022 Telemedicine consultation with patient Zora Flores APRN.FORMULA TECHNICIAN Work Phone: [facility] Start: 08-29-2022 ambulatory Zora Flores APRN.FORMULA TECHNICIAN Work Phone: [facility] Comment on above: Osteoarthritis of mu ltiple joints, unspecified osteoarthritis type (Primary Dx); Essential hypertension; Chronic neck pain; Abnormal gait Start: 08-29-2022 Telemedicine consultation with patient Zora Flores APRN.FORMULA TECHNICIAN Work Phone: [facility] Start: 08-28-2022 Refill Zora Flores APRN.FORMULA TECHNICIAN Work Phone: [facility] Start: 08-25-2022 ambulatory Zora Flores APRN.FORMULA TECHNICIAN Work Phone: [facility] Comment on above: Essential hypertensi on (Primary Dx); Abnormal gait; Chronic cervical pain Start: 08-25-2022 Telemedicine consultation with patient Zora Flores APRN.FORMULA TECHNICIAN Work Phone: [facility] Start: 08-24-2022 Initial nursing faci lity care/day 25 minutes Hayder Bone DPM Work Phone: Dr. London Campos [facility] Comment on above: Pain due to onychomy cosis of toenail of right foot (Primary Dx); Pain due to onychomycosis of toenail of left foot; Aspirin long-term use Start: 08-23-2022 ambulatory Zora Flores APRN.FORMULA TECHNICIAN Work Phone: [facility] Comment on above: Essential hypertensi on (Primary Dx); Abnormal gait; Chronic cervical pain Start: 08-23-2022 Telemedicine consultation with patient Zora Flores APRN.FORMULA TECHNICIAN Work Phone: [facility] Start: 08-08-2022 ambulatory Zora Flores APRN.FORMULA TECHNICIAN Work Phone: [facility] Comment on above: Essential hypertensi on (Primary Dx); Abnormal gait; Chronic cervical pain Start: 08-08-2022 Telemedicine consultation with patient Zora Flores APRN.FORMULA TECHNICIAN Work Phone: [facility] Start: 08-07-2022 Patient encounter procedure Macarena Cook Odell Work Phone: [facility] Start: 08-07-2022 Progress Note Macarena Bain Work Phone: [facility] [employer] Start: 08-04-2022 Telephone encounter Leela C Sheets DO Work Phone: [facility] Comment on above: Patient Question Start: 07-31-2022 Refill Leela C She ets DO Work Phone: [facility] Comment on above: Refill Request Start: 07-19-2022 Telephone encounter Riley [facility] Comment on above: Appointment Start: 07-13-2022 Refill Leela C She ets DO Work Phone: [facility] Comment on above: Refill Request Start: 06-30-2022 Refill Leela C She ets DO Work Phone: [facility] Comment on above: Refill Request Start: 05-31-2022 Refill Leela C She ets DO Work Phone: [facility] Comment on above: Refill Request Start: 05-25-2022 Telephone encounter Leela C Sheets DO Work Phone: [facility] Comment on above: Medication Problem Start: 05-25-2022 End: 05-25-2022 ambulatory LEELA C SHEETS Facility:[facility] Start: 05-25-2022 End: 05-25-2022 Patient encounter procedure Leela C Sheets DO Work Phone: [facility] Comment on above: Essential hypertensi on (Primary Dx); Chronic cervical pain; Grief; Smoker; Encounter for immunization Start: 05-22-2022 Refill Leela C She ets DO Work Phone: [facility] Comment on above: Refill Request Start: 05-19-2022 Refill Leela C She ets DO Work Phone: [facility] Comment on above: Refill Request Start: 04-21-2022 Refill Leela C She ets DO Work Phone: [facility] Comment on above: Refill Request Start: 04-12-2022 End: 04-12-2022 Patient encounter procedure Elise Heck ONCOLOGY NAVIGATOR.FORMULA TECHNICIAN Work Phone: [facility] Comment on above: Overactive bladder ( Primary Dx); Urine retention; Frequent UTI; Atrophic vaginitis Start: 03-29-2022 End: 03-29-2022 Patient encounter procedure Elise Heck ONCOLOGY NAVIGATOR.FORMULA TECHNICIAN Work Phone: [facility] Comment on above: Urine retention (Iva riley Dx); Acute cystitis without hematuria; Urge incontinence Start: 03-24-2022 Telephone encounter Kelvin rodarte PA-C Work Phone: [facility] Comment on above: Results Start: 03-23-2022 Telephone encounter Jair Turcios MD Work Phone: [facility] Comment on above: ER Follow up appt Start: 03-22-2022 ambulatory Riley [facility] Comment on above: ED OUTREACH (ED OUTR EACH/) Start: 03-20-2022 End: 03-21-2022 Emergency department patient visit LEELA C SHEETS Facility:[facility] Start: 03-14-2022 Refill Leela C She ets DO Work Phone: [facility] Comment on above: Refill Request Start: 02-24-2022 End: 02-24-2022 ambulatory LEELA C SHEETS Facility:[facility] Start: 02-24-2022 End: 02-24-2022 Patient encounter procedure Leela C Sheets DO Work Phone: [facility] Comment on above: Chronic cervical kalyan n (Primary Dx); Chronic abdominal pain; Smoker Start: 02-14-2022 Refill Leela C She ets DO Work Phone: [facility] Comment on above: Refill Request Start: 01-18-2022 ambulatory LEELA C SHEETS Facil ity:[facility] Start: 01-18-2022 End: 01-18-2022 Subsequent hospital visit by physician [facility] Comment on above: Generalized abdomina l pain [R10.84] Start: 01-11-2022 Refill Leela C She ets DO Work Phone: [facility] Comment on above: Refill Request Start: 12-29-2021 Refill Leela C She ets DO Work Phone: [facility] Comment on above: Refill Request Start: 12-26-2021 End: 12-27-2021 ambulatory FERNANDO NIETO Facility:[facility] Start: 12-14-2021 Refill Leela C She ets DO Work Phone: [facility] Start: 12-02-2021 End: 12-02-2021 ambulatory LEELA C SHEETS Facility:[facility] Start: 11-24-2021 Refill Leela C She ets DO Work Phone: [facility] Comment on above: Refill Request Start: 11-11-2021 Refill Leela C She ets DO Work Phone: [facility] Comment on above: Refill Request Start: 10-11-2021 Refill Leela C She ets DO Work Phone: [facility] Comment on above: Refill Request Start: 09-29-2021 Refill Leela C She ets DO Work Phone: [facility] Comment on above: Refill Request Start: 09-27-2021 Refill Leela C She ets DO Work Phone: [facility] Comment on above: Refill Request Start: 09-14-2021 Refill Leela C She ets DO Work Phone: [facility] Start: 08-26-2021 End: 08-26-2021 ambulatory LEELA C SHEETS Facility:[facility] Start: 08-08-2021 Refill Leela C She ets DO Work Phone: [facility] Comment on above: Refill Request Start: 07-11-2021 Refill Leela C She ets DO Work Phone: [facility] Comment on above: Refill Request Start: 06-27-2021 Refill Leela C She ets DO Work Phone: [facility] Comment on above: Refill Request Start: 06-23-2021 Telephone encounter Orin hanley MD Work Phone: [facility] Comment on above: Results Procedures Date Procedure [...] Start: 12-25-2023 Ct head/brain w/cont rast material Macarena Joey Odell Work Phone: Start: 12-25-2023 Creatinine [Mass/vol ume] in Serum or Plasma [facility] Provider Start: 05-25-2022 PFIZER-BIONTECH COVI D-19 BIVALENT BOOSTER VACCINE, AGE 12+ YR Leela Escoto DO Work Phone: Start: 04-12-2022 Urnls dip stick/tabl et rgnt auto w/o microscopy Elise Heck ONCOLOGY NAVIGATOR.FORMULA TECHNICIAN Work Phone: Start: 06-23-2021 Lipid 1996 panel - S brendon or Plasma Zora Flores ONCOLOGY NAVIGATOR.FORMULA TECHNICIAN Work Phone: Start: 02-16-2021 Adult depression scr eening assessment Orin Smith MD Work Phone: Start: 06-22-2020 Mammography Orin henson MD Work Phone: Start: 05-05-2016 Colonoscopy Orin henson MD Work Phone: Plan of Treatment Date Care Activity Detail Author Start: 01-21-2039 RSV Vaccine (1 - 1-dose 75+ series) RSV Vaccine (1 - 1-dose 75+ series) [facility] Start: 01-21-2029 PNEUMOCOCCAL (3 - PPSV23 if available, else PCV20) PNEUMOCOCCAL (3 - PPSV23 if available, else PCV20) [facility] Start: 01-21-2029 PNEUMOCOCCAL (3 - PPSV23 or PCV20) PNEUMOCOCCAL (3 - PPSV23 or PCV20) [facility] Start: 01-21-2029 Pneumococcal vaccination [facility] Start: 02-20-2028 Urine microalbumin profile [facility] Start: 08-26-2026 Pneumococcal Vaccine: 50+ (3 of 3 - PCV20 or PCV21) Pneumococcal Vaccine: 50+ (3 of 3 - PCV20 or PCV21) [facility] Start: 06-23-2026 Lipid 1996 panel - Serum or Plasma Lipid Screening [facility] Start: 06-23-2026 Lipid panel Lipid Screening [facility] Start: 06-23-2026 LIPID SCREEN LIPID SCREEN [facility] Start: 05-05-2026 Colonoscopy COLONOSCOPY [facility] Start: 05-05-2026 COLORECTAL CANCER SCREENING COLORECTAL CANCER SCREENING [facility] Start: 05-05-2026 Screening for malignant neoplasm of colon [facility] Start: 07-31-2025 BP Controlled (<130/80) BP Controlled (<130/80) [facility] Start: 05-26-2025 BP Controlled (<130/80) BP Controlled (<130/80) [facility] Start: 03-20-2025 DIABETES SCREEN DIABETES SCREEN [facility] Start: 03-20-2025 Diabetes Screening Diabetes Screening [facility] Start: 03-09-2025 End: 12-05-2025 MR Brain WO and W contrast IV MRI BRAIN WO/W IVCON Radiology Routine Astrocytoma brain tumor (HCC) Spasticity Cognitive decline Expected: 03/09/2025, Expires: 12/05/2025 [facility] Work Phone: Comment on above: Expected: 03/09/2025, Expires: Start: 02-27-2025 BP Controlled (<130/80) BP Controlled (<130/80) [facility] Start: 02-09-2025 BP Controlled (<130/80) BP Controlled (<130/80) [facility] Start: 02-06-2025 BP Controlled (<130/80) BP Controlled (<130/80) [facility] Start: 2025 End: 2025 Patient encounter procedure 2025 9:45 AM EDT Office Visit [facility] [address] [place] [address] Lillie Horton MD [address] [place] [address] Spasticity follow up [facility] Comment on above: Spasticity follow up Start: 01-16-2025 BP Controlled (<130/80) BP Controlled (<130/80) [facility] Start: 01-13-2025 BP Controlled (<130/80) BP Controlled (<130/80) [facility] Start: 12-26-2024 DIABETES SCREEN DIABETES SCREEN [facility] Start: 12-05-2024 BP Controlled (<130/80) BP Controlled (<130/80) [facility] Start: 11-24-2024 Influenza vaccination [facility] Start: 11-06-2024 End: 11-06-2024 Patient encounter procedure 11/06/2024 1:00 PM EDT Office Visit [facility] [address] [address] Lillie Horton MD [address] [place] [address] [facility] Comment on above: Spasticity Start: 11-05-2024 End: 11-05-2024 Patient encounter procedure 11/05/2024 9:30 AM EDT Office Visit [facility] [address] [place] [address] Mini Whyte MD [address] [facility] [address] [place] [address] Scheduling Request - Established Patient [facility] Comment on above: Scheduling Request - Established Patient Start: 11-04-2024 End: 11-04-2024 Patient encounter procedure 11/04/2024 8:30 AM EDT Appointment Radiology [address] [place], [place] [id number] Scheduling Request - Established Patient Radiology Comment on above: Scheduling Request - Established Patient Start: 10-03-2024 BP Controlled (<130/80) BP Controlled (<130/80) [facility] Start: 09-04-2024 End: 09-04-2024 Patient encounter procedure 09/04/2024 12:45 PM EDT Office Visit Neurology [address] [address] Casper Haynes MD [address] [place] [address] [facility] Neu[facility] Comment on above: [facility] Start: 07-31-2024 End: 07-31-2024 Patient encounter procedure 07/31/2024 9:00 AM EDT Office Visit [facility] [address] [place] [address] Mini Whyte MD [address] [facility] [address] [place] [address] Scheduling Request - Established Patient [facility] Comment on above: Scheduling Request - Established Patient Start: 07-25-2024 BP Controlled (<130/80) BP Controlled (<130/80) [facility] Start: 07-24-2024 End: 07-24-2024 Patient encounter procedure 07/24/2024 8:00 AM EDT Appointment Radiology [address] [place] [address] Scheduling Request - Established Patient Radiology Comment on above: Scheduling Request - Established Patient Start: 06-23-2024 DIABETES SCREEN DIABETES SCREEN [facility] Start: 06-17-2024 End: 06-17-2024 Patient encounter procedure 06/17/2024 11:00 AM EDT Office Visit [facility] [address] [place] [address] Ibrahima Clemens MD [address] [place] [address] Injury of cervical spinal cord, 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] [facility] Comment on above: Injury of cervical spinal cord, 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] Start: 06-09-2024 End: 06-09-2024 Patient encounter procedure 06/09/2024 1:20 PM EDT Office Visit [facility] [address] [address] Diane Siu, ONCOLOGY NAVIGATOR.FORMULA TECHNICIAN [address] [place] [address] spasticity [facility] Comment on above: spasticity Start: 06-04-2024 End: 06-04-2024 Patient encounter procedure 06/04/2024 1:00 PM EDT Office Visit [facility] [address] [place] [address] Scott Dumont MD [address] [place] [address] Time Frame: 2-4 weeks or best [facility] [place] Comment on above: Time Frame: 2-4 weeks or best Start: 05-26-2024 End: 05-26-2024 Patient encounter procedure 05/26/2024 2:30 PM EST Office Visit [facility] [address] [place] [address] Dior Anguiano MD [address] [facility] [id number] [place] [address] Carotid Stenosis [facility] Comment on above: Carotid Stenosis Start: 05-26-2024 End: 08-25-2024 LIPID PANEL, NONFASTING LIPID PANEL, NONFASTING Lab Routine Hyperlipidemia, unspecified hyperlipidemia type Expected: 05/26/2024, Expires: 08/25/2024 [facility] Comment on above: Expected: 05/26/2024, Expires: Start: 05-26-2024 End: 05-26-2024 Patient encounter procedure 05/26/2024 11:30 AM EST Office Visit [facility] [address] [place] [address] Mini Whyte MD [address] [facility] [address] [place] [address] Time Frame: week of 05/26 [facility] [place] Comment on above: Time Frame: week of 05/26 Start: 05-26-2024 End: 05-26-2024 Patient encounter procedure MRI Q Comment on above: Diagnosis: 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] XR CERVICAL 2V FLEX/ EXT Start: 05-23-2024 BP Controlled (<130/80) BP Controlled (<130/80) [facility] Start: 05-08-2024 End: 05-08-2024 ambulatory 05/08/2024 11:00 AM EST [facility] [place] [address] [place] [address] Mini Whyte MD [address] [address] MRA/ MRI results- patient is in a facility [facility] [place] Comment on above: MRA/ MRI results- patient is in a facili ty Start: 04-07-2024 End: 04-07-2024 Patient encounter procedure 04/07/2024 1:30 PM EST Office Visit [address] [address] Mini Whyte MD [address] [address] Time Frame: next available [facility] Comment on above: Time Frame: next available Start: 04-02-2024 End: 04-02-2024 Patient encounter procedure [facility] Comment on above: Diagnosis: Allergy to intravenous contra st media [Z91.041] Start: 04-02-2024 End: 04-02-2024 Patient encounter procedure 04/02/2024 1:00 AM EST Appointment [facility] [address] [place] [id number] Diagnosis: Allergy to intravenous contrast media [Z91.041] [facility] Comment on above: Diagnosis: Allergy to intravenous contra st media [Z91.041] Start: 03-26-2024 Medicare Advantage Annual Wellness Visit Medicare Advantage Annual Wellness Visit [facility] Start: 03-22-2024 BP Controlled (<130/80) BP Controlled (<130/80) [facility] Start: 02-28-2024 End: 02-28-2024 Patient encounter procedure 02/28/2024 1:30 PM EST Office Visit [facility] [address] [place] [address] Mini Whyte MD [address] [address] Scheduling Request - Established Patient [facility] [place] Comment on above: Scheduling Request - Established Patient Start: 02-28-2024 End: 02-28-2024 Patient encounter procedure 02/28/2024 11:40 AM EST Appointment MRI Q [address] [address] Scheduling Request - Established Patient MRI Q Comment on above: Scheduling Request - Established Patient Start: 01-17-2024 End: 01-17-2024 Patient encounter procedure 01/17/2024 10:00 AM EDT Office Visit [facility] [place] [address] [place] [address] Mini Whyte MD [address] [place] [address] Time Frame: First available [facility] [place] Comment on above: Time Frame: First available Start: 12-25-2023 End: 12-25-2023 Patient encounter procedure Radiology Ct Scan Comment on above: outside order scanned into patient's melissa rt Pt has contrast mariely rgy listed, in a nursing facility. Premedicating??-SCP 12/19 Start: 11-25-2023 Covid-19 Vaccine ( season) Covid-19 Vaccine () [facility] Start: 11-25-2023 Covid-19 Vaccine ( season) Covid-19 Vaccine () [facility] Start: 11-25-2023 Influenza vaccination [facility] Start: 11-03-2023 BP CONTROLLED (<130/80) BP CONTROLLED (<130/80) [facility] Start: 08-25-2023 BP CONTROLLED (<130/80) BP CONTROLLED (<130/80) [facility] Start: 05-26-2023 ANNUAL PCP TEAM CHRONIC DISEASE VISIT ANNUAL PCP TEAM CHRONIC DISEASE VISIT [facility] Start: 05-26-2023 BP CONTROLLED (<130/80) BP CONTROLLED (<130/80) [facility] Start: 03-26-2023 Behavioral Health Screening Behavioral Health Screening [facility] Start: 03-26-2023 Depression Assessment Depression Assessment [facility] Start: 03-25-2023 DEPRESSION ASSESSMENT DEPRESSION ASSESSMENT [facility] Comment on above: Postponed from 03/26/2022 (Declined at t his time) Start: 02-24-2023 ANNUAL PCP TEAM CHRONIC DISEASE VISIT ANNUAL PCP TEAM CHRONIC DISEASE VISIT [facility] Start: 02-24-2023 BP CONTROLLED (<130/80) BP CONTROLLED (<130/80) [facility] Start: 12-02-2022 ANNUAL PCP TEAM CHRONIC DISEASE VISIT ANNUAL PCP TEAM CHRONIC DISEASE VISIT [facility] Start: 12-02-2022 BP CONTROLLED (<130/80) BP CONTROLLED (<130/80) [facility] Start: 11-24-2022 Covid-19 Vaccine () Covid-19 Vaccine () [facility] Start: 11-24-2022 Influenza vaccination [facility] Start: 08-26-2022 ANNUAL PCP TEAM CHRONIC DISEASE VISIT ANNUAL PCP TEAM CHRONIC DISEASE VISIT [facility] Start: 08-26-2022 BP CONTROLLED (<130/80) BP CONTROLLED (<130/80) [facility] Start: 07-13-2022 End: 09-12-2022 Lipid 1996 panel - Serum or Plasma LIPID PANEL BASIC Lab Routine Pure hypercholesterolemia Expected: 07/13/2022, Expires: 09/12/2022 [facility] Work Phone: Comment on above: Expected: 07/13/2022, Expires: Start: 05-26-2022 ANNUAL PCP TEAM CHRONIC DISEASE VISIT ANNUAL PCP TEAM CHRONIC DISEASE VISIT [facility] Start: 05-26-2022 BP CONTROLLED (<130/80) BP CONTROLLED (<130/80) [facility] Start: 03-26-2022 DEPRESSION ASSESSMENT DEPRESSION ASSESSMENT [facility] Start: 02-16-2022 Adult depression screening assessment DEPRESSION SCREENING [facility] Start: 11-24-2021 Influenza vaccination INFLUENZA (#1) [facility] Start: 10-13-2021 COVID-19 VACCINE (5 - Booster for Pfizer series) COVID-19 VACCINE (5 - Booster for Pfizer series) [facility] Start: 06-22-2021 Mammography [facility] Start: 06-22-2021 Screening for malignant neoplasm of breast Mammogram Screening [facility] Start: 05-11-2021 COVID-19 VACCINE (4 - Booster for Pfizer series) COVID-19 VACCINE (4 - Booster for Pfizer series) [facility] Start: 03-26-2021 DEPRESSION ASSESSMENT DEPRESSION ASSESSMENT [facility] Start: 01-21-2009 COLOGUARD (FIT-DNA) COLOGUARD (FIT-DNA) [facility] Start: 01-21-[address] COLONOGRAPHY [facility] Start: 01-21-2009 FECAL OCCULT BLOOD FECAL OCCULT BLOOD [facility] Start: 01-21-2009 Screening for malignant neoplasm of colon [facility] Start: 01-21-2009 SIGMOIDOSCOPY SIGMOIDOSCOPY [facility] Start: 01-21-1982 Anxiety Screening Anxiety Screening [facility] Start: 01-21-1982 Depression Screening Depression Screening [facility] Start: 1965 HEPATITIS B (1 of 3 - 3-dose series) HEPATITIS B (1 of 3 - 3-dose series) [facility] Start: 1965 Hepatitis B Vaccine (1 of 3 - 3-dose series) Hepatitis B Vaccine (1 of 3 - 3-dose series) [facility] BLADDER SCAN BLADDER SCAN Pro cedures Routine Urine retention Ordered: 04/12/2022 [facility] Work Phone: Comment on above: Ordered: 04/12/2022 Debridement nail any method 1-5 DEBRIDEMENT OF NAIL(S), 1-5 Procedures Routine Pain due to onychomycosis of toenail of right foot Pain due to onychomycosis of toenail of left foot Aspirin long-term use Ordered: 08/24/2022 BATSHEVA CAMPOS [facility] Work Phone: Comment on above: Ordered: 08/24/2022 Debridement nail any method 1-5 DEBRIDEMENT OF NAIL(S), 1-5 Procedures Routine Nail dystrophy Aspirin long-term use Ordered: 11/03/2022 BATSHEVA CAMPOS [facility] Work Phone: Comment on above: Ordered: 11/03/2022 Debridement nail any method 1-5 DEBRIDEMENT OF NAIL(S), 1-5 Procedures Routine Nail dystrophy Aspirin long-term use Ordered: 05/25/[address] LONDON CAMPOS [facility] Work Phone: Comment on above: Ordered: 05/25/2023 Debridement nail any method 1-5 DEBRIDEMENT OF NAIL(S), 1-5 Procedures Routine Nail dystrophy Aspirin long-term use Ordered: 07/29/[address] LONDON CAMPOS [facility] Work Phone: Comment on above: Ordered: 07/29/2023 Debridement nail any method 1-5 DEBRIDEMENT OF NAIL(S), 1-5 Procedures Routine Nail dystrophy Aspirin long-term use Ordered: 10/07/[address] LONDON CAMPOS [facility] Work Phone: Comment on above: Ordered: 10/07/2023 Debridement nail any method 1-5 DEBRIDEMENT OF NAIL(S), 1-5 Procedures Routine Nail dystrophy Aspirin long-term use Ordered: 12/10/[address] LONDON CAMPOS [facility] Work Phone: Comment on above: Ordered: 12/10/2023 Debridement nail any method 1-5 DEBRIDEMENT OF NAIL(S), 1-5 Procedures Routine Nail dystrophy Aspirin long-term use Ordered: 02/07/[address] LONDON CAMPOS [facility] Work Phone: Comment on above: Ordered: 02/07/2024 End: 02-21-2025 MR Brain WO and W contrast IV MRI BRAIN WO/W IVCON Radiology Routine Astrocytoma (HCC) 1 Occurrences starting 01/23/2024 until 02/21/2025 [facility] Work Phone: Comment on above: 1 Occurrences starting 01/23/2024 until 02/21/2025 End: 04-03-2025 MR Brain WO and W contrast IV MRI BRAIN WO/W IVCON Radiology Routine Astrocytoma brain tumor (HCC) 1 Occurrences starting 03/04/2024 until 04/03/2025 [facility] Work Phone: Comment on above: 1 Occurrences starting 03/04/2024 until 04/03/2025 End: 06-27-2025 MR Brain WO and W contrast IV MRI BRAIN WO/W IVCON Radiology Routine Anaplastic astrocytoma (HCC) 1 Occurrences starting 05/28/2024 until 06/27/2025 [facility] Work Phone: Comment on above: 1 Occurrences starting 05/28/2024 until 06/27/2025 End: 09-04-2025 MR Brain WO and W contrast IV MRI BRAIN WO/W IVCON Radiology Routine Astrocytoma brain tumor (HCC) 1 Occurrences starting 08/05/2024 until 09/04/2025 [facility] Work Phone: Comment on above: 1 Occurrences starting 08/05/2024 until 09/04/2025 End: 12-10-2025 MR Brain WO and W contrast IV MRI BRAIN WO/W IVCON Radiology Routine Glioblastoma (HCC) 1 Occurrences starting 11/10/2024 until 12/10/2025 [facility] Work Phone: Comment on above: 1 Occurrences starting 11/10/2024 until 12/10/2025 End: 04-03-2025 MR Cervical spine WO and W contrast IV MRI CERVICAL SPINE WO/W IVCON Radiology Routine Allergy to intravenous contrast media Anaplastic astrocytoma (HCC) Mild cognitive impairment Cognitive decline Occlusion and stenosis of unspecified carotid artery Pathological fracture, other site, initial encounter for fracture 1 Occurrences starting 03/04/2024 until 04/03/2025 [facility] Comment on above: 1 Occurrences starting 03/04/2024 until 04/03/2025 End: 04-03-2025 MRA Head vessels WO contrast MRA BRAIN WO IVCON Radiology Routine Allergy to intravenous contrast media Anaplastic astrocytoma (HCC) Mild cognitive impairment Cognitive decline Occlusion and stenosis of unspecified carotid artery Pathological fracture, other site, initial encounter for fracture 1 Occurrences starting 03/04/2024 until 04/03/2025 [facility] Work Phone: Comment on above: 1 Occurrences starting 03/04/2024 until 04/03/2025 End: 06-09-2025 MRA Head vessels WO contrast MRA BRAIN WO IVCON Radiology MARYJANE 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) 1 Occurrences starting 05/10/2024 until 06/09/2025 [facility] Work Phone: Comment on above: 1 Occurrences starting 05/10/2024 until 06/09/2025 End: 04-03-2025 MRA Neck vessels WO contrast MRA CAROTID WO IVCON Radiology Routine Allergy to intravenous contrast media Anaplastic astrocytoma (HCC) Mild cognitive impairment Cognitive decline Occlusion and stenosis of unspecified carotid artery Pathological fracture, other site, initial encounter for fracture 1 Occurrences starting 03/04/2024 until 04/03/2025 [facility] Comment on above: 1 Occurrences starting 03/04/2024 until 04/03/2025 Patient referral [facility] Work Phone: End: 06-25-2025 US Carotid arteries - bilateral US CAROTID BILATERAL Radiology Routine Occlusion and stenosis of unspecified carotid artery 1 Occurrences starting 05/26/2024 until 06/25/2025 [facility] Work Phone: Comment on above: 1 Occurrences [...] (HCC) 1 Occurrences starting 03/04/2024 until 04/03/2025 [facility] Comment on above: 1 Occurrences starting 03/04/2024 until 04/03/2025 [facility] Immunizations Immunization Date Immunization Notes Care Provider Kati martínez 05-25-2022 COVID-19 booster vac cine, age 12+ yr, bivalent (PFIZER-BIONTKorrio) Leela Sheets DO Work Phone: [facility] 12-02-2021 influenza, injectabl e, quadrivalent, contains preservative Leela Sheets DO Work Phone: [facility] 12-02-2021 influenza virus vacc ine, unspecified formulation Zora Flores ONCOLOGY NAVIGATOR.FORMULA TECHNICIAN Work Phone: [facility] 08-26-2021 pneumococcal polysaccharide vaccine, 23 valent Leela Sheets DO Work Phone: [facility] 12-21-2020 influenza, injectabl e, quadrivalent, contains preservative Orin Smith MD Work Phone: [facility] 12-21-2020 influenza, injectabl e, quadrivalent, preservative free Orin Smith MD Work Phone: [facility] 08-18-2020 zoster vaccine recombinant Orin Smith MD Work Phone: [facility] 08-18-2020 zoster vaccine, live Orin Smith MD Work Phone: [facility] 06-28-2020 COVID-19 vaccine, ag e 12+ yr (PFIZER-BIONTECH - PURPLE TOP) Orin Smith MD Work Phone: [facility] 06-07-2020 COVID-19 vaccine, ag e 12+ yr (PFIZER-BIONTECH - PURPLE TOP) Orin Smith MD Work Phone: [facility] 12-22-2019 influenza, seasonal, injectable Orin Smith MD Work Phone: [facility] 12-22-2019 Seasonal, quadrivale nt, recombinant, injectable influenza vaccine, preservative free Orin Smith MD Work Phone: [facility] 12-22-2019 zoster vaccine recombinant Orin Smith MD Work Phone: [facility] 12-30-2018 influenza, injectabl e, quadrivalent, preservative free Orin Smith MD Work Phone: [facility] 12-30-2018 influenza, seasonal, injectable Orin Smith MD Work Phone: [facility] 12-26-2017 influenza, seasonal, injectable Orin Smith MD Work Phone: [facility] 01-09-2017 influenza, injectabl e, quadrivalent, preservative free Orin Smith MD Work Phone: [facility] 01-09-2017 influenza, seasonal, injectable Orin Smith MD Work Phone: [facility] 12-28-2015 influenza, seasonal, injectable Orin Smith MD Work Phone: [facility] 12-28-2015 influenza, seasonal, injectable, preservative free Orin Smith MD Work Phone: [facility] 03-11-2015 pneumococcal conjuga te vaccine, 13 valent Orin Smith MD Work Phone: [facility] 01-20-2015 influenza, seasonal, injectable Orin Smith MD Work Phone: [facility] 01-19-2015 influenza, seasonal, injectable, preservative free Orin Smith MD Work Phone: [facility] 11-21-2014 zoster vaccine, live Orin Smith MD Work Phone: [facility] 01-15-2014 influenza, seasonal, injectable Orin Smith MD Work Phone: [facility] 04-04-2013 influenza, seasonal, injectable Orin Smith MD Work Phone: [facility] Payers Date Payer Category Payer Self-pay 2023 Medicare (Managed Care) [id number]. [id number] 2023 Medicare [id number] 2022 Medicare [id number] 2019 Medicare UHC AARP MEDICAR E [facility] AARP MEDICARE O [id number] 2019-Present [phone] [facility] [address] [place] [address] O [id number] 2019 Medicare [id number] 2019 Medicare [id number] 2017 Medicaid [id number] 2017 Medicaid [id number] Medicare ANTHEM MEDICARE PPO [id number] Unknown [id number] 62 Unknown [id number] 62 Unknown [id number] 62 Unknown [id number] 62 Unknown [id number] 62 Unknown [id number] 62 Unknown [id number] 62 Unknown [id number] 62 Unknown [id number] 62 Unknown [id number] 62 Unknown [id number] 62 Social History Date Type Detail Facility Start: 03-26-1979 End: 05-26-2024 Tobacco smoking status ALIS Smokes tobacco daily [facility] Start: 03-26-1979 History of tobacco use Cigarette Smo ker [facility] Start: 11-05-2015 End: 01-17-2024 Cigarettes smoked current (pack per day) - Reported 0.5 [facility] Start: 11-05-2015 End: 05-26-2024 Tobacco use and exposure Smokeless tobacco non-user [facility] Start: 05-26-2021 End: 11-06-2024 Alcohol intake Ex-drinker (finding) [facility] Start: 1965 Sex Assigned At Not on file [facility] Start: 06-13-2021 End: 02-24-2022 Exposure to SARS-CoV-2 (event) Not sure [facility] Start: 11-03-2022 End: 01-17-2024 Tobacco use panel [facility] Start: 02-25-2012 Adult Depression Screening Assessment 0 [facility] Start: 04-02-2024 None None [facility] Start: 04-02-2024 Homeless Homeless [facility] Start: 04-02-2024 Cigarettes Cigarettes [facility] Start: 06-19-2024 Sex Female (finding) [facility] Start: 1965 Sex Assigned At Female W [facility] How often to you hav e a drink containing alcohol? Never [facility] Functional Status Date Assessment Result Facility 11-05-2024 Total score [AUDIT-C] 0 11/06/19 25 9:52 AM EDT India Michel MA [facility] Clinical Notes 06-23-2021 to 11-07-2024 [...] her of appointment documented in this encounter [facility] 11-07-2024 Telephone encounter Note Done [facility] 11-07-2024 Telephone encounter Note Scheduling Request - Established Patient Time Frame: 3 months Orders: MRI brain Provider: Regan Visit type: In person 1-2 days after MRI Diagnosis: GBM *Please call daughter and inform her of appt [facility] Work Phone: 11-07-2024 Miscellaneous Notes Scheduling Request - Established Patient Time Frame: 3 months Orders: MRI brain Provider: Regan Visit type: In person 1-2 days after MRI Diagnosis: GBM *Please call daughter and inform her of appt documented in this encounter [facility] 11-07-2024 Telephone encounter Note Scheduling Request - New Patient Time Frame: next available Orders: CONSULT TO PHYSICAL MEDICINE AND REHABILITATION Provider or Provider Group: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 Scheduling Request [...] Time Frame: next available Orders: consult to brain [facility] - dementia Provider or Provider Group: [...] 8. Quadriplegia (HCC) documented in this encounter [facility] 03-17-2024 Telephone encounter Note Done. Called the facility twice, no answer. (will try again) Mailed reminder. Dorcas [facility] Work Phone: 03-17-2024 Miscellaneous Notes Done. Called the facility twice, no answer. (will try again) Mailed reminder. Dorcas Scheduling Request - est Patient Time Frame: next available Orders: MRA brain, MRA carotid, MRI cervical spine, XR CERVICAL 2V FLEX/EXT - Ok to arrange close scan close to [place] Visit type: In person within a week from scans with Dr. Spears in person Diagnosis: brain tumor Patient lives in a facility and needs transportation arranged. PLease call [facility] Facility [phone]-let them know of any appointments. documented in this encounter [facility] 03-14-2024 Note HNO ID: [id number] Author: GERDA DEE RN Service: ? Author Type: Registered Nurse Type: Progress Notes Filed: 03/14/2024 12:26 Note Text: Spoke with Radha at [facility] pathology- brain slides from 1992 are no longer available. Await records Gerda Dee RN, BSN [facility] 03-14-2024 History of Present illness Narrative Spoke with Radha at [facility] pathology- brain slides from 1992 are no longer available. Await records Gerda Dee RN, BSN [facility] documented in this encounter [facility] 03-14-2024 Note HNO ID: [id number] Author: GERDA DEE RN Service: ? Author Type: Registered Nurse Type: Progress Notes Filed: 03/14/2024 11:48 Note Text: Faxed request for pathology slides and medical records to [facility] medical records/pathology at [phone] fax [phone] Surgery was in 04/1992 Gerda Dee RN, BSN [facility] 03-14-2024 History of Present illness Narrative Faxed request for pathology slides and medical records to [facility] medical records/pathology at [phone] fax [phone] Surgery was in 04/1992 Gerda Dee RN, BSN [facility] documented in this encounter [facility] 03-11-2024 Telephone encounter Note Attempted to reach Nieves- no answer Predication order and instructions copied and faxed to [place] fax [phone]- Transmission completed on 03/11 @ 14;42 pm Prednisone 50mg is to be given starting 13 hours before scheduled MRi (on 05/26 @ 9:10 )am, 7 hours before and 1 hour before- for a total of 3 doses of 50mg each. 3/2- 8 pm 3/3- 2 am 33- 8 am Gerda Dee RN, BSN [facility] [place] [facility] Work Phone: 03-11-2024 Miscellaneous Notes Attempted to reach Nieves- no answer Predication order and instructions copied and faxed to [place] fax [phone]- Transmission completed on 03/11 @ 14;42 pm Prednisone 50mg is to be given starting 13 hours before scheduled MRi (on 05/26 @ 9:10 )am, 7 hours before and 1 hour before- for a total of 3 doses of 50mg each. 3/2- 8 pm 3/3- 2 am 33- 8 am Gerda Sulzer, RN, BSN [facility] General Call Caller : Nieves Johnson Contact or [phone] Reason for Call : Pt is scheduled to have her MRI on 05/26/2024. Nieves is calling for pt's premedication as pt is allergic to the contrast. Please also note the instruction on when pt is to take medication as Nieves thought pt take her premeds 3 days prior to the MRI appt. Patient requesting return call ? Yes documented in this encounter [facility] 03-10-2024 Telephone encounter Note Sent staff message "New CV Patient" to PSS team to assist. Imaging updated in chart per internal referral. [facility] 03-10-2024 Miscellaneous Notes Sent staff message "New CV Patient" to PSS team to assist. Imaging updated in chart per internal referral. Images from the original note were not included. Consult Received: Dorcas Moya Cv Triage Please schedule below request. Patient resides At [facility] [phone]-let them know of any appointments. Scheduling Request [...] 8. Quadriplegia (HCC documented in this encounter [facility] 03-10-2024 Telephone encounter Note General Call Caller : Nieves Yanez [facility] Contact or [phone] Reason for Call : Pt is scheduled to have her MRI on 05/26/2024. Nieves is calling for pt's premedication as pt is allergic to the contrast. Please also note the instruction on when pt is to take medication as Nieves thought pt take her premeds 3 days prior to the MRI appt. Patient requesting return call ? Yes [facility] 03-05-2024 Telephone encounter Note Images from the original note were not included. Consult Received: Dorcas Moya Cv Triage Please schedule below request. Patient resides At [facility] [phone]-let them know of any appointments. Scheduling Request [...] spinal cord, sequela (HCC) 8. Quadriplegia (HCC [facility] 03-04-2024 Telephone encounter Note Scheduling Request - est Patient Time Frame: next available Orders: MRA brain, MRA carotid, MRI cervical spine, XR CERVICAL 2V FLEX/EXT - Ok to arrange close scan close to [place] Visit type: In person within a week from scans with Dr. Spears in person Diagnosis: brain tumor Patient lives in a facility and needs transportation arranged. PLease call [facility] ph [phone]-let them know of any appointments. [facility] Work Phone: 03-04-2024 Telephone encounter Note Patient resides At [facility] [phone]-let them know of any appointments. Scheduling Request [...] Time Frame: next available Orders: consult to [facility] - dementia Provider or Provider Group: any [...] spinal cord, sequela (HCC) 8. Quadriplegia (HCC) [facility] Work Phone: 03-04-2024 Note Addended by: MINI MATHEWS on: 03/04/2024 01:59 PM Modules accepted: Orders [facility] 03-04-2024 Miscellaneous Notes Addended by: MINI WHYTE on: 03/04/2024 01:59 PM Modules accepted: Orders documented in this encounter [facility] 03-04-2024 Miscellaneous Notes Scheduling Request - Established Patient Time Frame: week of 05/26 Orders: MRI brain at Provider: Dr. Spears Visit type: In person same day at Diagnosis: astrocytoma documented in this encounter [facility] 03-04-2024 Telephone encounter Note Scheduling Request - Established Patient Time Frame: week of 05/26 Orders: MRI brain at Provider: Dr. Spears Visit type: In person same day at Diagnosis: astrocytoma [facility] Work Phone: 03-04-2024 History of Present illness Narrative [facility] JAIL NOTE NAME: DIOR CARVAJAL [facility]IN[facility] NO.: [id number] DATE OF SERVICE: 03/04/2024 ATTENDING PHYSICIAN: Macarena Bain MD [facility] Followup of multiple medical chronic issues. She is currently resting in bed. She appears quite comfortable. She has no complaints or pain. She denies being short of breath. Nursing reports no new problems. She was recently seen in followup at the [facility] for her history of brain tumor. [...] again, she is to follow up with [facility] and undergo MRI. DICTATED BY: MD PRASHANT Singleton/JOHNNIE JOB# [id number] [facility] documented in this encounter [facility] 03-04-2024 Note HNO ID: [id number] Author: MACARENA BAIN, ? Service: ? Author Type: Physician Type: Progress Notes Filed: 03/06/2024 07:48 Note Text: [facility] JAIL NOTE NAME: DIOR CARVAJAL [facility] NO.: [id number] DATE OF SERVICE: 03/04/2024 ATTENDING PHYSICIAN: Macarena Bain MD [facility] Followup of multiple medical chronic issues. She is currently resting in bed. She appears quite comfortable. She has no complaints or pain. She denies being short of breath. Nursing reports no new problems. She was recently seen in followup at the [facility] for her history of brain tumor. [...] again, she is to follow up with [facility] and undergo MRI. DICTATED BY: Macarena Bain MD IAE/AQT JOB# [id number] [facility] 02-28-2024 Note HNO ID: [id number] Author: MINI WHYTE MD Service: ? Author Type: Physician Type: Progress Notes Filed: 03/04/2024 13:59 Note Text: [facility] Clinic follow up. Diagnosis: Anaplastic astrocytoma The patient is accompanied by a staff at the long term care administrator facility where she resides, [place]. Subjective History of Present Illness: Mrs. Carvajal, [...] Surgery: R frontal lobe tumor resection at [facility]- ([id number]) Pathology: Anaplastic astrocytoma Neurosurgeon: Raul Tamez MD [facility] Neurosurgery , [address], [place] Radiation oncologist: Unknown PER SISTER: ONLY HAD RADIATION. NEVER HAD CHEMO However on some [facility] Notes is says - patient had chemo-radiation. 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 SOCIAL: -Patient resides in [facility] -Sister Laureen Hassan MPOA Therapy Status [...] daily. omeprazole (PRILOSEC (more content not included)... [facility] 02-28-2024 History of Present illness Narrative Images from the original note were not included. [facility] Clinic follow up. Diagnosis: Anaplastic astrocytoma The patient is accompanied by a staff at the long term care administrator facility where she resides, [place]. Subjective History of Present Illness: Mrs. Carvajal, [...] Surgery: R frontal lobe tumor resection at [facility]- ([id number]) Pathology: Anaplastic astrocytoma Neurosurgeon: Raul Tamez MD [facility] Neurosurgery , [address] [place] [address] Radiation oncologist: Unknown PER SISTER: ONLY HAD RADIATION. NEVER HAD CHEMO However on some [facility] Notes is says - patient had chemo-radiation. 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 SOCIAL: -Patient resides in [facility] -Sister Laureen Hassan MPOA Therapy Status [...] 1.00 - 4.00 k/uL 1.92 1.95 Abs Dare <0.87 k/uL 0.44 0.72 Abs Eosin <0.46 [...] & HISTORY: Right craniotomy brain tumor, 04/30/92 [facility] CL[facility]ICAL PATHOLOGY LABORAT[facility] Final Diagnosis FINAL DIAGNOSIS: A,B,C&D. "Brain tumor": Anaplastic astrocytoma. [facility] Nonchartable [id number] Signed-Out [facility] CL[facility]ICAL PATHOLOGY LABORATORY Nonchartable A. FS-BRAIN TUMOR Collected: 05/18/1992 Received: 05/18/1992 B. BRAIN TUMOR Collected: 05/18/1992 Received: 05/18/1992 C. brain tumor Collected: 05/18/1992 Received: 05/18/1992 D. BRAIN TUMOR Collected: 05/18/1992 Received: 05/18/1992 SNOMED: [id number] [facility] Procedure Notes - documented in this [...] abnormality. Age advanced moderate parenchymal volume loss. Help Desk Engineer: MAGUI Transcribe Date/Time: Feb 28 2024 2:24P [...] a right frontal lobe tumor resection at [facility] ([id number]). 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 Per the records clear neurosurgeon is Dashawn Montelongo MD [facility] Neurosurgery. Her sister confirmed today, that per her own recollection the patient ONLY HAD RADIATION AND NEVER HAD CHEMO. However on some [facility] Notes it says - "patient had chemo-radiation". She had an MRI on February 28, [...] records of her brain tumor history from [facility]. -Obtain, the actual pathology, from [facility] if possible, for neuro pathology review at [facility]. -MRI brain w and w/o + perfusion in 3 months time. MRI to be done at [facility]. -Premedications, with the pheniramine and prednisone to [...] Bindu Burt on 02/13/2024. -Referral, to [facility] for assessment, regarding whether there is an underlying primary dementia syndrome. 3-PCP: To continue general medical care by PCP, Leela Escoto, DO 4-History of Stroke: Left Vertebral artery [...] sequela (HCC) 8. Quadriplegia (HCC) CONSULT TO [facility] Routine, Dx: 1. Allergy to intravenous contrast [...] see the patient, at least 50% of jrit-in-dbln patient care, completing clinical documentation, obtaining and/or reviewing separately obtained history, performing a medically appropriate examination, counseling and educating the patient/family/caregiver, ordering medications, tests, or procedures, communicating with other HCPs (not separately reported), independently interpreting results (not separately reported), communicating results to the patient/family/caregiver and care coordination (not separately reported). Mini Whyte MD [facility] [place] [address] documented in this encounter [facility] 02-28-2024 Nurse Note Additional intake questions: Has the patient had fever, nausea, vomiting, diarrhea, constipation, fatigue for > 1 week? No Does the patient have a decreased appetite? No Does patient want to see a Regional Sales Manager? No (yes to any of above refer patient to schedulers for dietitian appointment) ) Does patient have any new or increased numbness or tingling of extremities? No Is patient interested in fertility information? No Does patient need any prescription refills? No Does patient have an advanced directive in place? No, Patient referred to [facility] 02-28-2024 Nurse Note Additional intake questions: Has the patient had fever, nausea, vomiting, diarrhea, constipation, fatigue for > 1 week? No Does the patient have a decreased appetite? No Does patient want to see a Regional Sales Manager? No (yes to any of above refer patient to schedulers for dietitian appointment) ) Does patient have any new or increased numbness or tingling of extremities? No Is patient interested in fertility information? No Does patient need any prescription refills? No Does patient have an advanced directive in place? No, Patient referred to [facility] documented in this encounter [facility] 02-28-2024 Note HNO ID: [id number] Author: JR GALLEGO RN Service: Radiology Author Type: Registered Nurse Type: Progress Notes Filed: 02/28/2024 14:47 Note Text: RADIOLOGY SERVICE PROGRESS NOTE DATE OF SERVICE: February 28, 2024 TIME OF SERVICE: 1419 EVENT: Pt arrived for scan with contrast. [...] 28, 2024 TIME: 2:20 PM PAGER/CONTACT #: [facility] 02-28-2024 History of Present illness Narrative RADIOLOGY SERVICE PROGRESS NOTE DATE OF SERVICE: February 28, 2024 TIME OF SERVICE: 1419 EVENT: Pt arrived for scan with contrast. [...] to prevent falls during this visit? Yellow "Falls Risk Wristband" Applied, Instructed Patient to Call for Help if Needed, Offered Assistance with Transfers/Clothing, Instructed Patient to Remain Seated (Not on Exam Table) Until Exam, Increased Observations by Caregivers, and Patient Refused Interventions/Assistance PATIENT GENDER DATA: Female. status: : No status: NO. PATIENT RELEVANT IMPLANT DATA REVIEWED: Yes PATIENT PRESENTS WITH AN IMPLANTABLE OR ATTACHED CHIP FRIER: No RADIOLOGY DEPARTMENT: MR; Exam(s) Completed: Head: Routine Brain PERIPHERAL IV DATA: Not applicable SIGNED BY: RACHELLE Garcia February 28, 2024 2:00 PM documented in this encounter [facility] 02-28-2024 Note HNO ID: [id number] Author: YENNIFER NOVA MRI Tech Service: Radiology [...] to prevent falls during this visit? Yellow "Falls Risk Wristband" Applied, Instructed Patient to Call for Help if Needed, Offered Assistance with Transfers/Clothing, Instructed Patient to Remain Seated (Not on Exam Table) Until Exam, Increased Observations by Caregivers, and Patient Refused Interventions/Assistance PATIENT GENDER DATA: Female. status: : No status: NO. PATIENT RELEVANT IMPLANT DATA REVIEWED: Yes PATIENT PRESENTS WITH AN IMPLANTABLE OR ATTACHED CHIP FRIER: No RADIOLOGY DEPARTMENT: MR; Exam(s) Completed: Head: Routine Brain PERIPHERAL IV DATA: Not applicable SIGNED BY: RACHELLE Garcia February 28, 2024 2:00 PM [facility] 02-13-2024 Note HNO ID: [id number] Author: BINDU BURT, PhD Service: ? Author Type: Psychologist Type: Progress Notes Filed: 02/29/2024 16:56 Note Text: [facility] Department of Neurology Section of Neuropsychology Neuropsychological Evaluation Report CONFIDENTIAL Patient: Dior Carvajal Referred by: Mini Whyte Date of : 1965 Date of Evaluation: 02/13/2024 SUMMARY/IMPRESSIONS: The patient is a 59-year-old, White, female, referred for a neuropsychological evaluation by Mini Whyte MD in the [facility]. 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 Of note, the patient reported [...] astrocytoma s/p right frontal tumor resection at [facility] on 04/27/1992. She is unsure whether she [...] the patient. IADL/ADL: She has resided in [facility], a longterm facility, since 08/05/2022. Her family visits her frequently and is reportedly involved in her care; however, from her self-reported history it is unclear what she requires assistance with specifically. Finances: She states that she is managing finances independently (i.e., mostl (more content not included)... [facility] 02-10-2024 Note HNO ID: [id number] Author: KYLE LANE APRN.FORMULA TECHNICIAN Service: ? Author Type: Nurse Practitioner Type: Progress Notes Filed: 02/10/2024 20:28 Note Text: Connected Care Unit Telemedicine Progress Note Patient Name: Dior K Carvajal Patient Facility: [facility] Level of Care: Long-term SNF Attending: Macarena Bain M.D. Service Date: 02/10/2024 Chief Complaint: Evaluation regarding recent fall ASSESSMENT AND PLAN I have communicated my name and active licensure. The patient's identity and physical location were verified at the time of this visit. Either the patient or their legal electroplating sales representative has been informed of the risks [...] back - Monitor safety awareness Kyle Lane APRN.FORMULA TECHNICIAN Appointments for Next 60 Days Date Time Provider Location Dept Phone 02/13/2024 12:30 PM BINDU BURT S [facility] [phone] 02/28/2024 11:40 AM MRI 3 RADIO MAIN Q (I-STAT/1.5T/3T) Mn Q [facility] [phone] 02/28/2024 1:30 PM MINI WHYTE Mn Ca [facility] [phone] HPI: Virtual visit for recent fall NAD [...] appropriate parties. Electronically signed by Kyle Lane APRN.FORMULA TECHNICIAN [facility] 02-10-2024 History of Present illness Narrative Images from the original note were not included. Connected Care Unit Telemedicine Progress Note Patient Name: Dior Carvajal Patient Facility: [facility] Level of Care: Long-term SNF Attending: Macarena Bain M.D. Service Date: 02/10/2024 Chief Complaint: Evaluation regarding recent fall ASSESSMENT AND PLAN I have communicated my name and active licensure. The patient's identity and physical location were verified at the time of this visit. Either the patient or their legal electroplating sales representative has been informed of the risks [...] back - Monitor safety awareness Kyle Lane APRN.FORMULA TECHNICIAN Appointments for Next 60 Days Date Time Provider Location Dept Phone 02/13/2024 12:30 PM CARMELBINDU William Parsons S [facility] [phone] 02/28/2024 11:40 AM MRI 3 RADIO MAIN Q (I-STAT/1.5T/3T) Mn Q [facility] [phone] 02/28/2024 1:30 PM MINI WHYTE Ca [facility] [phone] HPI: Virtual visit for recent fall NAD [...] appropriate parties. Electronically signed by Kyle Lane APRN.FORMULA TECHNICIAN documented in this encounter [facility] 02-07-2024 History of Present illness Narrative Dior Carvajal : 1965 Retirement: [facility] PCP: ODELL Date last seen: 01/01/2024 FORMULA TECHNICIAN PAST MEDICAL HISTORY Diagnosis Date Abnormal gait [...] advised not to attempt self care. Class "B" Findings: Decrease or absence of hair growth, [...] dystrophy (primary encounter diagnosis) Aspirin long-term use Hadyer Bone DPM documented in this encounter [facility] 02-07-2024 Instructions Hayder Bone DPM - 02/07/2024 12:26 PM EST Pt not to attempt self care due to high risk. documented in this encounter [facility] 02-06-2024 Telephone encounter Note Contacted [facility] and spoke with Johanny. I let her know dates, times and location for patients MRI and visit scheduled for 02/28/24. Sister was also updated who will meet patient here. Transportation to be arranged by facility Gerda Dee RN, BSN [employer] [facility] [place] [facility] Work Phone: 02-06-2024 Telephone encounter Note Returned call and provided Katie with appointment dates and times for 02/28/24 Gerda Dee RN, BSN [employer] [facility] Neuro[facility]On[facility] [place] [facility] Work Phone: 02-06-2024 Miscellaneous Notes Returned call and provided Katie with appointment dates and times for 02/28/24 Gerda Dee RN, BSN [employer] [facility] Tumor [facility] Neuro-Oncology [place] General Call Caller : Katie/ Contact Reason for Call : Katie says she is returning a missed call from [facility] regarding pt's appt. Patient requesting return call ? Yes documented in this encounter [facility] 02-06-2024 Miscellaneous Notes Contacted [facility] and spoke with Johanny. I let her know dates, times and location for patients MRI and visit scheduled for 02/28/24. Sister was also updated who will meet patient here. Transportation to be arranged by facility Gerda Dee RN, BSN [employer] [facility] documented in this encounter [facility] 02-06-2024 Telephone encounter Note General Call Caller : Katie/sister Contact Reason for Call : Katie says she is returning a missed call from [facility] regarding pt's appt. Patient requesting return call ? Yes [facility] 01-29-2024 Telephone encounter Note Spoke to endo tech from [facility] [place], she is scheduled & confirmed for all appts. [facility] 01-29-2024 Miscellaneous Notes Spoke to endo tech from [facility] [place], she is scheduled & confirmed for all appts. Scheduling Request - Established Patient Time Frame: [facility] week of 02/25/24 Orders: MRI brain MC [...] Diagnosis: cognitive assessment. documented in this encounter [facility] 01-21-2024 Telephone encounter Note Spoke with patient's sister, Katie to let her know that Dr Spears wantcee Barboza to have an MRI in ~ 4 weeks. This will be arranged at [facility] with same day visit (week of 02/24) . A family member needs to be present. At Dior's consultation she came with an aide front he facility and no family. Katie said she works in [place] and can meet Dior at her appointment. Dior and the facility ([facility] [phone]) will need to know the day/time of appointment to make arrangements. Once appointments are scheduled, we will notify them. Dior does not have My Chart Gerda Dee RN, BSN [employer] [facility] Work Phone: 01-21-2024 Miscellaneous Notes Spoke with patient's sister, Katie to let her know that Dr Spears wantcee Barboza to have an MRI in ~ 4 weeks. This will be arranged at [facility] with same day visit (week of 02/24) . A family member needs to be present. At Dior's consultation she came with an aide front he facility and no family. Katie said she works in [place] and can meet Dior at her appointment. Dior and the facility ([facility] [phone]) will need to know the day/time of appointment to make arrangements. Once appointments are scheduled, we will notify them. Dior does not have My Chart Gerda Dee RN, BSN [employer] [employer] [facility] documented in this encounter [facility] 01-21-2024 Telephone encounter Note Scheduling Request - Established Patient Time Frame: [facility] week of 02/25/24 Orders: MRI brain [facility] [...] person Referring: Dr Spears Diagnosis: cognitive assessment. [facility] Work Phone: 01-17-2024 Note HNO ID: [id number] Author: MINI WHYTE MD Service: ? Author Type: Physician Type: Progress Notes Filed: 01/21/2024 01:13 Note Text: [facility] New Patient Consultation Referred by: Leela Escoto DO [address] [place] [id number] Diagnosis: Anaplastic astrocytoma The patient is accompanied by a staff at the [facility] where she [facility], [place]. Subjective History of Present Illness: Mrs. Carvajal, [...] if she had chemotherapy. Patient resides [facility] Limited records- NO MRI BRAIN IMAGES (last record of MRI brain at [facility] was 05/15/2002) No records related to prior treatment received. Surgery: -R frontal lobe tumor resection at [facility]-04/30/1992 ([id number]) Pathology: Anaplastic astrocytoma Neurosurgeon Unknown Radiation oncologist: Unknown Pertinent History: per rec[facility]ards -Limited records. NO MRI brain images -L frontal tumor resection done at [facility] 04/30/92 -Pathology- anaplastic astrocytoma January 19, 2024 [...] or weight loss. (more content not included)... [facility] 01-17-2024 History of Present illness Narrative Images from the original note were not included. [facility] New Patient Consultation Referred by: Leela Escoto DO [address] [place] [id number] Diagnosis: Anaplastic astrocytoma The patient is accompanied by a staff at the [facility] where she resides, [place]. Subjective History of Present Illness: Mrs. Carvajal, [...] if she had chemotherapy. Patient resides in [facility] records- NO MRI BRAIN IMAGES (last record of MRI brain at [facility] was 05/15/2002) No records related to prior treatment received. Surgery: -R frontal lobe tumor resection at [facility]-04/30/1992 ([id number]) Pathology: Anaplastic astrocytoma Neurosurgeon Unknown Radiation oncologist: Unknown Pertinent History: per [facility] -Limited records. NO MRI brain images -L frontal tumor resection done at [facility] 04/30/92 -Pathology- anaplastic astrocytoma January 19, 2024 [...] OF 1981 crainiotomy; astocytoma- (chemo and radiation) Met PAST SURGICAL HISTORY OF neck spinal fusion; [...] 1.00 - 4.00 k/uL 1.92 1.95 Abs Dare <0.87 k/uL 0.44 0.72 Abs Eosin <0.46 [...] & HISTORY: Right craniotomy brain tumor, 04/30/92 [facility] LABOR[facility] Final Diagnosis FINAL DIAGNOSIS: A,B,C&D. "Brain tumor": Anaplastic astrocytoma. [facility] Nonchartable [id number] R Signed-Out [facility] LABOR[facility] Nonchartable A. FS-BRAIN TUMOR Collected: 05/18/1992 Received: 05/18/1992 B. BRAIN TUMOR Collected: 05/18/1992 Received: 05/18/1992 C. brain tumor Collected: 05/18/1992 Received: 05/18/1992 D. BRAIN TUMOR Collected: 05/18/1992 Received: 05/18/1992 SNOMED: [id number] Imaging: MRI Report No resulted procedures found. [...] see the patient, at least 50% of fydk-uu-haji patient care, completing clinical documentation, obtaining and/or reviewing separately obtained history, performing a medically appropriate examination, counseling and educating the patient/family/caregiver, ordering medications, tests, or procedures, communicating with other HCPs (not separately reported), independently interpreting results (not separately reported), communicating results to the patient/family/caregiver and care coordination (not separately reported). Mini Whyte MD 10:32 AM 01/17/2024 [facility] Leela Escoto DO [address] [place] [phone] documented in this encounter [facility] 01-17-2024 Nurse Note Additional intake questions: Has the patient had fever, nausea, vomiting, diarrhea, constipation, fatigue for > 1 week? Yes, nausea, vomiting, constipation (day of last BM 01/16/24), and diarrhea ( 4 times in last 24 hours) Does the patient have a decreased appetite? No Does patient want to see a Regional Sales Manager? No (yes to any of above refer patient to schedulers for dietitian appointment) ) Does patient have any new or increased numbness or tingling of extremities? No Is patient interested in fertility information? No Does patient need any prescription refills? No Does patient have an advanced directive in place? No, Patient refused referral to Social Work or Resource Center [facility] 01-17-2024 Nurse Note Additional intake questions: Has the patient had fever, nausea, vomiting, diarrhea, constipation, fatigue for > 1 week? Yes, nausea, vomiting, constipation (day of last BM 01/16/24), and diarrhea ( 4 times in last 24 hours) Does the patient have a decreased appetite? No Does patient want to see a Regional Sales Manager? No (yes to any of above refer patient to schedulers for dietitian appointment) ) Does patient have any new or increased numbness or tingling of extremities? No Is patient interested in fertility information? No Does patient need any prescription refills? No Does patient have an advanced directive in place? No, Patient refused referral to Social Work or Resource Center documented in this encounter [facility] 01-15-2024 Note HNO ID: [id number] Author: GERDA DEE, ALMA Service: ? Author Type: Registered Nurse Type: Progress Notes Filed: 01/15/2024 16:14 Note Text: This note is only to load and organize information prior to patient's visit to [facility]. This includes information gathered from outside records and/or information that has been previously documented in [facility] and will be confirmed with the patient at the time of visit. Patient is a 58 y/o female from [place], [place] Reason for consult: h/o astrocytoma Patient resides in [facility] records- NO MRI BRAIN IMAGES (last record of MRI brain at [facility] was 05/15/2002) No records related to prior treatment received. Surgery: -R frontal lobe tumor resection at [facility]-04/30/1992 ([id number]) Pathology: Anaplastic astrocytoma Neurosurgeon Unknown Radiation oncologist: [...] images -L frontal tumor resection done at [facility] 04/30/92 -Pathology- anaplastic astrocytoma 12/25/2023 CT BRAIN W Contrast COMPARISON: MR 03/04/2011. CT head 03/04/2011. IMPRESSION: No acute intracranial process. Remote history of RIGHT frontal craniotomy for underlying mass resection, with redemonstrated RIGHT frontal encephalomalacia and gliosis. No overt evidence of disease progression or recurrence on CT, however this is better evaluated with MR brain without and with contrast. MRi Brain- [facility] 05/15/2002 FINDINGS: Comparison is made to the [...] recurrence is seen. Gerda Dee, RN, BSN [facility]e [facility] 01-15-2024 History of Present illness Narrative This note is only to load and organize information prior to patient's visit to [facility]. This includes information gathered from outside records and/or information that has been previously documented in [facility] and will be confirmed with the patient at the time of visit. Patient is a 58 y/o female from [place], [place] Reason for consult: h/o astrocytoma Patient resides in [facility] records- NO MRI BRAIN IMAGES (last record of MRI brain at [facility] was 05/15/2002) No records related to prior treatment received. Surgery: -R frontal lobe tumor resection at [facility]-04/30/1992 ([id number]) Pathology: Anaplastic astrocytoma Neurosurgeon Unknown Radiation oncologist: [...] images -L frontal tumor resection done at [facility] 04/30/92 -Pathology- anaplastic astrocytoma 12/25/2023 CT BRAIN W Contrast COMPARISON: MR 03/04/2011. CT head 03/04/2011. IMPRESSION: No acute intracranial process. Remote history of RIGHT frontal craniotomy for underlying mass resection, with redemonstrated RIGHT frontal encephalomalacia and gliosis. No overt evidence of disease progression or recurrence on CT, however this is better evaluated with MR brain without and with contrast. MRi Brain- [facility] 05/15/2002 FINDINGS: Comparison is made to the [...] recurrence is seen. Gerda Dee RN, BSN [facility] documented in this encounter [facility] 01-14-2024 Note HNO ID: [id number] Author: KYLE LANE APRN.CHRISTIANO Service: ? Author Type: Nurse Practitioner Type: Progress Notes Filed: 01/14/2024 18:28 Note Text: Connected Care Unit Telemedicine Progress Note Patient Name: Dior Carvajal Patient Facility: [facility] Level of Care: Long-term SNF Attending: Macarena Bain M.D. Service Date: 01/14/2024 Chief Complaint: Evaluation regarding recent fall ASSESSMENT AND PLAN I have communicated my name and active licensure. The patient's identity and physical location were verified at the time of this visit. Either the patient or their legal electroplating sales representative has been informed of the risks [...] back - Monitor safety awareness Kyle Lane APRN.FORMULA TECHNICIAN HPI: Virtual visit for recent fall NAD [...] appropriate parties. Electronically signed by Kyle Lane APRN.FORMULA TECHNICIAN [facility] 01-14-2024 History of Present illness Narrative Images from the original note were not included. Connected Care Unit Telemedicine Progress Note Patient Name: Dior Carvajal Patient Facility: [facility] Level of Care: Long-term SNF Attending: Macarena Bain M.D. Service Date: 01/14/2024 Chief Complaint: Evaluation regarding recent fall ASSESSMENT AND PLAN I have communicated my name and active licensure. The patient's identity and physical location were verified at the time of this visit. Either the patient or their legal electroplating sales representative has been informed of the risks [...] back - Monitor safety awareness Kyle Lane APRN.FORMULA TECHNICIAN HPI: Virtual visit for recent fall NAD [...] appropriate parties. Electronically signed by Kyle Lane APRN.FORMULA TECHNICIAN documented in this encounter [facility] 01-08-2024 Telephone encounter Note Dior had resection and radiation treatment at [facility] - will request pathology and office notes. ___ Patient: Dior Carvajal Address: Doir Carvajal [id number] [place] [id number] Per Triage: Dior Carvajal is a 58 year old female: 27 years old - resection and radiation of brain tumor at [facility] prior history/resection information Patient expectations: New Consult [...] with MR brain without and with contrast. Help Desk Engineer: PSCB Transcribe Date/Time: Dec 25 2023 1:22P [...] imaged soft tissues are unremarkable. Umm Nuñez APRN.CHRISTIANO January 08, 2024 [facility] 01-08-2024 Miscellaneous Notes Dior had resection and radiation treatment at [facility] - will request pathology and office notes. ___ Patient: Dior Carvajal Address: Dior Carvajal [id number] [place] [address] Per Triage: Dior Carvajal is a 58 year old female: 27 years old - resection and radiation of brain tumor at [facility] Need prior history/resection information Patient expectations: [...] with MR brain without and with contrast. Help Desk Engineer: MAGUI Transcribe Date/Time: Dec 25 2023 1:22P Dictated by : KATTY DAI MD This examination was interpreted and the report reviewed and electronically signed by: AKTTY DAI MD on Dec 25 2023 1:30PM [...] imaged soft tissues are unremarkable. Umm Nuñez APRN.CHRISTIANO January 08, 2024 Images in Epic 1. Canal Structure Operator: Who is requesting this appointment?patient and patient's caregiver & endo tech Nieves [phone] 2. Canal Structure Operator: Please indicate the best contact information for our team to reach you with any questions/concerns we may have? 3. Canal Structure Operator: What is your diagnosis? Other 4. Canal Structure Operator: Have you ever been seen at our center before? If yes, by whom? N/A (If the patient has been seen in our department before, please bypass the triage process and send a message to the rn acute care of the provider that the patient saw in the past. (Patient being referred to us with the same dx)). 5. Canal Structure Operator: Is there a specific doctor you were referred to? N/A 6. Canal Structure Operator: What facility and/or hospital have you been seen at? [facility] Name of facility/name of provider where patient was treated. N/a 7. Canal Structure Operator: For this appointment, we will need to request a few records from you. This will help our triage team be able to select the best provider for your treatment. a. Please provide: Most recent MRI- spine/Brain (Canal Structure Operator will check CareEverywhere for records). 8. Canal Structure Operator: Where was your last imaging completed:December 2023(Ideally should be completed within the last six months). 9. Canal Structure Operator: Have you had any surgeries pertaining to this appointment? No If yes, please obtain pathology report. 10. Canal Structure Operator: Please allow up to 48-72 hours for our triage team to review your records. Once they reviewed your records, we will be in contact with you. a. Was the patient made aware of the turnaround time? Yes 11. Canal Structure Operator: Our department offers virtual visits depending on the provider you are recommended to see and the state that you live in. If able to schedule, would you like a virtual visit?Yes a. If answered yes: Does the patient have MyChart access: No If not, then endo tech will walk patient through getting access to [facility]. b. If no, Are you interested in In Person (If not, please indicate patient refused to schedule at this time and the reason to not proceed with scheduling). 12. Sent to triage pool. (Waiting approval). documented in this encounter [facility] 01-08-2024 Telephone encounter Note Images in Epic 1. Canal Structure Operator: Who is requesting this appointment?patient and patient's caregiver & endo tech Nieves [phone] 2. Canal Structure Operator: Please indicate the best contact information for our team to reach you with any questions/concerns we may have? 3. Canal Structure Operator: What is your diagnosis? Other 4. Canal Structure Operator: Have you ever been seen at our center before? If yes, by whom? N/A (If the patient has been seen in our department before, please bypass the triage process and send a message to the rn acute care of the provider that the patient saw in the past. (Patient being referred to us with the same dx)). 5. Canal Structure Operator: Is there a specific doctor you were referred to? N/A 6. Canal Structure Operator: What facility and/or hospital have you been seen at? [facility] Name of facility/name of provider where patient was treated. N/a 7. Canal Structure Operator: For this appointment, we will need to request a few records from you. This will help our triage team be able to select the best provider for your treatment. a. Please provide: Most recent MRI- spine/Brain (Canal Structure Operator will check CareEverywhere for records). 8. Canal Structure Operator: Where was your last imaging completed:December 2023(Ideally should be completed within the last six months). 9. Canal Structure Operator: Have you had any surgeries pertaining to this appointment? No If yes, please obtain pathology report. 10. Canal Structure Operator: Please allow up to 48-72 hours for our triage team to review your records. Once they reviewed your records, we will be in contact with you. a. Was the patient made aware of the turnaround time? Yes 11. Canal Structure Operator: Our department offers virtual visits depending on the provider you are recommended to see and the state that you live in. If able to schedule, would you like a virtual visit?Yes a. If answered yes: Does the patient have MyChart access: No If not, then endo tech will walk patient through getting access to [employer] [facility]. b. If no, Are you interested in In Person (If not, please indicate patient refused to schedule at this time and the reason to not proceed with scheduling). 12. Sent to triage pool. (Waiting approval). [facility] 01-01-2024 Note HNO ID: [id number] Author: ZORA FLORES APRN.CHRISTIANO Service: ? Author Type: Nurse Practitioner Type: Progress Notes Filed: 01/01/2024 09:38 Note Text: Connected Care Unit Progress Note Facility: [facility] Level of Care: Long-term SNF [...] Unchanged. Medications: see current medication list in [facility] chart, reviewed (Medications in [facility] may not accurate, please see update in [facility] chart) Objective Data: Vital signs reviewed with [...] Encourage fluids and toilet schedule Zora Flores APRN.CHRISTIANO We will continue to monitor for overall comfort, function and safety. Call for changes in condition. Electronically signed by Zora Flores APRN.CNP January 01, 2024 9:34 AM [facility] 01-01-2024 History of Present illness Narrative Images from the original note were not included. Connected Care Unit Progress Note Facility: [facility] Level of Care: Long-term SNF [...] Unchanged. Medications: see current medication list in [facility] chart, reviewed (Medications in [facility] may not accurate, please see update in [facility] chart) Objective Data: Vital signs reviewed with [...] Encourage fluids and toilet schedule Zora Flores APRN.FORMULA TECHNICIAN We will continue to monitor for overall comfort, function and safety. Call for changes in condition. Electronically signed by Zora Flores APRN.CNP January 01, 2024 9:34 AM documented in this encounter [facility] 01-01-2024 History of Present illness Narrative [facility] NOTE NAME: DIOR CARVAJAL [facility] NO.: [id number] DATE OF SERVICE: 01/01/2024 ATTENDING PHYSICIAN: Macarena Bain MD [facility] Followup multiple medical chronic issues She [...] Maintain current course of therapy. DICTATED BY: Macarena Bain MD IACarl/ASHLYNT JOB# [id number] [facility] documented in this encounter [facility] 01-01-2024 Note HNO ID: [id number] Author: MACARENA BAIN, ? Service: ? Author Type: Physician Type: Progress Notes Filed: 01/03/2024 07:42 Note Text: [facility] NOTE NAME: DIOR CARVAJAL [facility] NO.: [id number] DATE OF SERVICE: 01/01/2024 ATTENDING PHYSICIAN: Macarena Bain MD [facility] Followup multiple medical chronic issues She [...] Maintain current course of therapy. DICTATED BY: Macarena Bain MD IAE/AQT JOB# [id number] [facility] 12-25-2023 History of Present illness Narrative Radiology [...] to prevent falls during this visit? Yellow "Falls Risk Wristband" Applied and Increased Observations by Caregivers PATIENT GENDER DATA: Female. status: : No status: NO. PATIENT RELEVANT IMPLANT DATA REVIEWED: Yes PATIENT PRESENTS WITH AN IMPLANTABLE OR ATTACHED CHIP FRIER: No ALLERGIES: Reviewed and unchanged CONTRAST ALLERGY: [...] TIME: 12:09 PM documented in this encounter [facility] 12-25-2023 Note HNO ID: [id number] Author: OJHANNY QUINN RN Service: Nursing Author Type: Registered [...] DATE: December 25, 2023 TIME: 11:34 AM [facility] 12-25-2023 Note HNO ID: [id number] Author: JEFF JULES RT(R) Service: ? Author [...] to prevent falls during this visit? Yellow "Falls Risk Wristband" Applied and Increased Observations by Caregivers PATIENT GENDER DATA: Female. status: : No status: NO. PATIENT RELEVANT IMPLANT DATA REVIEWED: Yes PATIENT PRESENTS WITH AN IMPLANTABLE OR ATTACHED CHIP FRIER: No ALLERGIES: Reviewed and unchanged CONTRAST ALLERGY: [...] Brain SIGNATURE: RT Manuel(R) PATIENT NAME: Dior aCrvajal DATE: December 25, 2023 TIME: 12:09 PM [facility] 12-24-2023 Telephone encounter Note Pt lives at a intermediate. Chart states that she is allergic to contrast. Facility called and advised to give 50 mg of prednisone at 13, 7 and 1 hour before exam and 50 mg of benadryl 1 hour before scheduled test.RN state that she will facilitate these orders for [facility] policy. [facility] 12-24-2023 Miscellaneous Notes Pt lives at a intermediate. Chart states that she is allergic to contrast. Facility called and advised to give 50 mg of prednisone at 13, 7 and 1 hour before exam and 50 mg of benadryl 1 hour before scheduled test.RN state that she will facilitate these orders for [facility] policy. documented in this encounter [facility] 12-10-2023 History of Present illness Narrative Dior Carvajal : 1965 Retirement: [facility]- Retirement/Assisted Living PCP: odell Date last seen: christiano 12/06/2023 PAST MEDICAL HISTORY Diagnosis Date Abnormal [...] advised not to attempt self care. Class "B" Findings: Decrease or absence of hair growth, [...] Hayder Bone DPM documented in this encounter [facility] 12-10-2023 Instructions Hayder Bone DPM - 12/10/2023 1:28 PM EDT Pt not to attempt self care due to high risk. documented in this encounter [facility] 12-06-2023 Note HNO ID: [id number] Author: ZORA FLORES APRN.FORMULA TECHNICIAN Service: ? Author Type: Nurse Practitioner Type: Progress Notes Filed: 12/06/2023 08:57 Note Text: Connected Care Unit Progress Note Facility: [facility] Skilled Care Level of Care: Long-term SNF [...] Unchanged. Medications: see current medication list in [facility] chart, reviewed (Medications in [facility] may not accurate, please see update in [facility] chart) Objective Data: Vital signs reviewed with [...] M54.2, G89.29 Tramadol OT therapy Zora Flores APRN.FORMULA TECHNICIAN We will continue to monitor for overall comfort, function and safety. Call for changes in condition. Electronically signed by Zora Flores APRN.CNP December 06, 2023 8:55 AM [facility] 12-06-2023 History of Present illness Narrative Images from the original note were not included. Connected Care Unit Progress Note Facility: [facility] Skilled Care Level of Care: Long-term SNF [...] Unchanged. Medications: see current medication list in [facility] chart, reviewed (Medications in [facility] may not accurate, please see update in [facility] chart) Objective Data: Vital signs reviewed with [...] M54.2, G89.29 Tramadol OT therapy Zora Flores APRN.CNP We will continue to monitor for overall comfort, function and safety. Call for changes in condition. Electronically signed by Zora Flores APRN.CNP December 06, 2023 8:55 AM documented in this encounter [facility] 11-29-2023 Note HNO ID: [id number] Author: ZORA FLORES APRN.CNP Service: ? Author Type: Nurse Practitioner Type: Progress Notes Filed: 11/29/2023 09:06 Note Text: Connected Care Unit Progress Note Facility: [facility] Skilled Care Level of Care: Long-term SNF [...] Unchanged. Medications: see current medication list in [facility] chart, reviewed (Medications in [facility] may not accurate, please see update in [facility] chart) Objective Data: Vital signs reviewed with [...] ds bid x 5 days Zora Flores APRN.CHRISTIANO We will continue to monitor for overall comfort, function and safety. Call for changes in condition. Electronically signed by Zora Flores APRN.CNP November 29, 2023 9:05 AM [facility] 11-29-2023 History of Present illness Narrative Images from the original note were not included. Connected Care Unit Progress Note Facility: [facility] Skilled Care Level of [...] Unchanged. Medications: see current medication list in [facility] chart, reviewed (Medications in [facility] may not accurate, please see update in [facility] chart) Objective Data: Vital signs reviewed with [...] 2023 9:05 AM documented in this encounter [facility] 11-06-2023 History of Present illness Narrative Images from the original note were not included. Connected Care Unit Progress Note Facility: [facility] Skilled Care Level of Care: Long-term SNF Attending: Macarena Bain M.D. Service Date: 11/06/2023 Reason For [...] Unchanged. Medications: see current medication list in [facility] chart, reviewed (Medications in [facility] may not accurate, please see update in [facility] chart) Objective Data: Vital signs reviewed with [...] 298.9, ICD10: R41.0 See 1 Zora Flores APRN.FORMULA TECHNICIAN We will continue to monitor for overall comfort, function and safety. Call for changes in condition. Electronically signed by Zora Flores APRN.CNP November 06, 2023 10:08 AM documented in this encounter [facility] 11-06-2023 History of Present illness Narrative [facility] NOTE NAME: DIOR CARVAJAL [facility] NO.: [id number] DATE OF SERVICE: 11/06/2023 ATTENDING PHYSICIAN: Macarena Bain MD [facility] Followup of multiple medical chronic issues. [...] will continue to monitor closely. DICTATED BY: Macarena Bain MD IAE/AQT JOB# [id number] [facility] documented in this encounter [facility] 10-11-2023 History of Present illness Narrative Images from the original note were not included. Connected Care Unit Progress Note Facility: [facility] Level of Care: Long-term SNF [...] Unchanged. Medications: see current medication list in [facility] chart, reviewed (Medications in [facility] may not accurate, please see update in [facility] chart) Objective Data: Wt 177 lbs Vital [...] 2023 8:59 AM documented in this encounter [facility] 10-07-2023 History of Present illness Narrative Dior Carvajal : 1965 Retirement: [facility]- Retirement/Assisted Living PCP: dr. bain Date last seen: [...] advised not to attempt self care. Class "B" Findings: Decrease or absence of hair growth, [...] Hayder Bone DPM documented in this encounter [facility] 10-07-2023 Instructions Hayder Bone DPM - 10/07/2023 7:19 AM EDT Pt not to attempt self care due to high risk. documented in this encounter [facility] 09-11-2023 History of Present illness Narrative [facility] NOTE NAME: DIOR CARVAJAL [facility] NO.: [id number] DATE OF SERVICE: 09/11/2023 ATTENDING PHYSICIAN: Macarena Bain MD [facility] Followup of multiple medical chronic issues [...] continue statin therapy. DICTATED BY: MD PRASHANT Singleton/JOHNNIE JOB# [id number] [facility] documented in this encounter [facility] 08-28-2023 History of Present illness Narrative Images from the original note were not included. Connected Care Unit Progress Note Facility: [facility] Level of Care: Long-term SNF Attending: Macraena Bain M.D. Service Date: 08/28/2023 Reason For [...] Unchanged. Medications: see current medication list in [facility] chart, reviewed (Medications in [facility] may not accurate, please see update in [facility] chart) Objective Data: Vital signs reviewed with [...] ICD10: M25.552 Methocarbamol 500mg prn Zora Flores APRN.FORMULA TECHNICIAN We will continue to monitor for overall comfort, function and safety. Call for changes in condition. Electronically signed by Zora Flores APRN.CNP August 28, 2023 9:22 AM documented in this encounter [facility] 08-16-2023 History of Present illness Narrative Images from the original note were not included. Connected Care Unit Progress Note Facility: [facility] Sk[facility] Care Level of Care: Long-term SNF [...] Unchanged. Medications: see current medication list in [facility] chart, reviewed (Medications in [facility] may not accurate, please see update in [facility] chart) Objective Data: Vital signs reviewed with [...] Controlled - Continue current medications Zora Flores APRN.FORMULA TECHNICIAN We will continue to monitor for overall comfort, function and safety. Call for changes in condition. Electronically signed by Zora Flores APRN.CNP August 16, 2023 8:39 AM documented in this encounter [facility] 07-29-2023 History of Present illness Narrative Dior Carvajal : 1965 Retirement: [facility]- Retirement/Assisted Living PCP: DR. BAIN Date last seen: [...] advised not to attempt self care. Class "B" Findings: Decrease or absence of hair growth, [...] Hayder Bone DPM documented in this encounter [facility] 07-29-2023 Instructions Hayder Bone DPM - 07/29/2023 1:46 PM EDT Pt not to attempt self care due to high risk. documented in this encounter [facility] 06-27-2023 History of Present illness Narrative [facility] JAIL NOTE NAME: DIOR CARVAJAL CLINIC NO.: [id number] DATE OF SERVICE: 06/27/2023 ATTENDING PHYSICIAN: Macarena Bain MD [facility] Followup of multiple medical chronic issues [...] Hyperlipidemia - continue statin therapy. DICTATED BY: Macarena Bain MD IAE/AQT JOB# [id number] [facility] documented in this encounter [facility] 06-19-2023 History of Present illness Narrative Images from the original note were not included. Connected Care Unit Progress Note Facility: [facility] Skilled Care Level of [...] Unchanged. Medications: see current medication list in [facility] chart, reviewed (Medications in [facility] may not accurate, please see update in [facility] chart) Objective Data: Wt 176 lbs Vital [...] condition. Electronically signed by Zora Flores APRN.CNP June 19, 2023 9:50 AM documented in this encounter [facility] 05-25-2023 History of Present illness Narrative Dior Carvajal : 1965 Retirement: [facility]- Retirement/Assisted Living PCP: DR. BAIN Date last seen: [...] advised not to attempt self care. Class "B" Findings: Decrease or absence of hair growth, [...] Hayder Bone DPM documented in this encounter [facility] 05-25-2023 Instructions Hayder Bone DPM - 05/25/2023 12:24 PM EST Pt not to attempt self care due to high risk. documented in this encounter [facility] 05-03-2023 History of Present illness Narrative [facility] HOME NOTE NAME: RAMEZ CARVAJAL NO.: [id number] DATE OF SERVICE: 05/03/2023 [facility] DATE OF : 1965 Follow up [...] - continue statin therapy. DICTATED BY: MD Jericho Price JOB# [id number] cc:[facility] documented in this encounter [facility] 02-28-2023 History of Present illness Narrative [facility] JAIL NOTE NAME: RAMEZ CARVAJAL NO.: [id number] DATE OF SERVICE: 02/28/2023 [facility] DATE OF : 1965 Follow up [...] - continue statin therapy. DICTATED BY: MD Jericho Price JOB# [id number] cc:[facility] documented in this encounter [facility] 02-13-2023 History of Present illness Narrative Images from the original note were not included. Connected Care Unit Progress Note Facility: [facility] Skilled Care Level of [...] Unchanged. Medications: see current medication list in [facility] chart, reviewed (Medications in [facility] may not accurate, please see update in [facility] chart) Objective Data: Wt 178 lbs Vital [...] 2023 9:15 AM documented in this encounter [facility] 01-02-2023 History of Present illness Narrative [facility] JAIL NOTE NAME: RAMEZ CARVAJAL NO.: [id number] DATE OF SERVICE: 01/02/2023 [facility] DATE OF : 1965 Followup of [...] therapy. DICTATED BY: MD PRASHANT Price/Genie JOB# [id number] cc:[facility] documented in this encounter [facility] 12-12-2022 History of Present illness Narrative Images from the original note were not included. Connected Care Unit Progress Note Facility: [facility] Skilled Care Level of Care: Long-term SNF Attending: Macarena Bain M.D. Service Date: 12/12/2022 Reason For Visit: [...] Unchanged. Medications: see current medication list in [facility] chart, reviewed (Medications in [facility] may not accurate, please see update in [facility] chart) Objective Data: Vital signs reviewed with [...] Controlled - Continue current medications Zora Flores APRN.CHRISTIANO We will continue to monitor for overall comfort, function and safety. Call for changes in condition. Electronically signed by Zora Flores APRN.CNP December 12, 2022 10:11 AM documented in this encounter [facility] 11-03-2022 History of Present illness Narrative Dior Carvajal : 1965 Retirement: [facility]- Retirement/Assisted Living PCP: ODELL Date last seen: CHRISTIANO 09/2022 PAST MEDICAL HISTORY Diagnosis Date Abnormal [...] advised not to attempt self care. Class "B" Findings: Decrease or absence of hair growth, [...] Hayder Bone DPM documented in this encounter [facility] 11-03-2022 Instructions Hayder Bone DPM - 11/03/2022 9:46 AM EDT Pt not to attempt self care due to high risk. documented in this encounter [facility] 09-12-2022 History of Present illness Narrative Images from the original note were not included. Connected Care Unit Progress Note Facility: [facility] Skilled Care Level of [...] Unchanged. Medications: see current medication list in [facility] chart, reviewed (Medications in [facility] may not accurate, please see update in [facility] chart) Objective Data: Vital signs reviewed with [...] 2022 9:25 AM documented in this encounter [facility] 09-07-2022 History of Present illness Narrative Opened in error documented in this encounter [facility] 09-07-2022 History of Present illness Narrative Images from the original note were not included. Connected Care Unit Progress Note Facility: [facility] Skilled Care Level of Care: Skilled SNF [...] Unchanged. Medications: see current medication list in [facility] chart, reviewed (Medications in [facility] may not accurate, please see update in [facility] chart) Objective Data: Vital signs reviewed with [...] ICD9: 781.2, ICD10: R26.9 Therapy Zora Flores APRN.CHRISTIANO We will continue to monitor for overall comfort, function and safety. Call for changes in condition. Electronically signed by Zora Flores APRN.CNP September 07, 2022 9:25 AM documented in this encounter [facility] 08-29-2022 History of Present illness Narrative Images from the original note were not included. Connected Care Unit Progress Note Facility: [facility] Skilled Care Level of Care: Skilled SNF [...] Unchanged. Medications: see current medication list in [facility] chart, reviewed (Medications in [facility] may not accurate, please see update in [facility] chart) Objective Data: Vital signs reviewed with [...] 2022 9:35 AM documented in this encounter [facility] 08-25-2022 History of Present illness Narrative Images from the original note were not included. Connected Care Unit Progress Note Facility: [facility] Skilled Care Level of [...] Unchanged. Medications: see current medication list in [facility] chart, reviewed (Medications in [facility] may not accurate, please see update in [facility] chart) Objective Data: Vital signs reviewed with [...] ICD10: M54.2, G89.29 Tramadol bid Zora Flores APRN.FORMULA TECHNICIAN We will continue to monitor for overall comfort, function and safety. Call for changes in condition. Electronically signed by Zora Flores APRN.CNP August 25, 2022 9:04 AM documented in this encounter [facility] 08-24-2022 History of Present illness Narrative Dior Carvajal : 1965 Retirement: [facility]- Retirement/Assisted Living PCP: ODELL Date last seen: 08/15 CHRISTIANO PAST MEDICAL HISTORY Diagnosis Date Abnormal gait [...] advised not to attempt self care. Class "B" Findings: Decrease or absence of hair growth, [...] Hayder Bone DPM documented in this encounter [facility] 08-24-2022 Instructions Hayder Bone DPM - 08/24/2022 7:04 PM EDT Pt not to attempt self care due to high risk. documented in this encounter [facility] 08-23-2022 History of Present illness Narrative Images from the original note were not included. Connected Care Unit Progress Note Facility: [facility] Skilled Care Level of Care: Skilled SNF [...] Unchanged. Medications: see current medication list in [facility] chart, reviewed (Medications in [facility] may not accurate, please see update in [facility] chart) Objective Data: Wt 179lbs Vital signs [...] ICD10: M54.2, G89.29 Tramadol bid Zora Flores APRN.FORMULA TECHNICIAN We will continue to monitor for overall comfort, function and safety. Call for changes in condition. Electronically signed by Zora Flores APRN.CNP August 23, 2022 9:34 AM documented in this encounter [facility] 08-08-2022 History of Present illness Narrative Images from the original note were not included. Connected Care Unit Progress Note Facility: [facility] Skilled Care Level of Care: Skilled SNF [...] Patient seen today for fu here for longterm therapy having difficulty caring for self at [...] Unchanged. Medications: see current medication list in [facility] chart, reviewed (Medications in [facility] may not accurate, please see update in [facility] chart) Objective Data: Vital signs reviewed with [...] G89.29 Tramadol 50mg po bid Zora Flores APRN.FORMULA TECHNICIAN We will continue to monitor for overall comfort, function and safety. Call for changes in condition. Electronically signed by Zora Flores APRN.CHRISTIANO August 08, 2022 9:17 AM documented in this encounter [facility] 08-07-2022 Miscellaneous Notes Order signed by Dr. Escoto and mailed. Adalberto Woods MA Please sign order. Placed in green folder. Riley Palmer MA Alma Escoto DO Patient left message stating her handicap parking placard is going to be expiring and she would like an order for a new one mailed to [address] [place] [address]. Please advise. Adalberto Woods MA documented in this encounter [facility] 08-07-2022 History of Present illness Narrative [facility] NOTE NAME: RAMEZ CARVAJAL NO.: [id number] DATE OF SERVICE: 08/07/2022 [facility] DATE OF : 1965 New patient [...] care. DICTATED BY: MD PRASHANT Price/Genie JOB# [id number] cc:[facility] documented in this encounter [facility] 07-31-2022 Miscellaneous Notes Pharmacy requesting refills as follows: Last Office Visit 05/25/22. Last Refill 06/30/22. Requested Prescriptions Pending Prescriptions Disp Refills traMADol (ULTRAM) 50 mg tablet 60 tablet 0 Sig: Take 1 tablet by mouth twice daily for 30 days. Please review and advise. Xochitl Torres MA documented in this encounter [facility] 07-19-2022 Miscellaneous Notes Message left on vm. Patient needs apt. To get into long care facitly . Please contact Katie at [phone] to schedule apt. Thanks. Riley Palmer MA documented in this encounter [facility] 07-13-2022 Miscellaneous Notes Patient is informed [...] Xochitl Torres MA documented in this encounter [facility] 06-30-2022 Miscellaneous Notes Patient requesting refills as follows: Last Office Visit 05/25/22. Last Refill 05/31/22. Requested Prescriptions Pending Prescriptions Disp Refills traMADol (ULTRAM) 50 mg tablet 60 tablet 0 Sig: Take 1 tablet by mouth twice daily for 30 days. Please review and advise. Xochitl Torres MA documented in this encounter [facility] 05-31-2022 Miscellaneous Notes Patient requesting refills as follows: Last Office Visit 05/25/22. Last Refill 05/19/22. Requested Prescriptions Pending Prescriptions Disp Refills traMADol (ULTRAM) 50 mg tablet 60 tablet 0 Sig: Take 1 tablet by mouth twice daily for 30 days. Please review and advise. Xochitl Torres MA documented in this encounter [facility] 05-25-2022 Note HNO ID: [id number] Author: Leela Escoto, DO Service: ? Author [...] ?C (98.1 ?F) Ht 167.6 cm (5' 6") Wt 79.8 kg (176 lb) SpO2 93% [...] pt's father cannot continue to go to [facility] weekly and cannot go to another [...] will be wors (more content not included)... [facility] 05-25-2022 Miscellaneous Notes Left a message for the pharmacy to call back and let us know. Xochitl Torres MA ----- Message from Leela Escoto DO sent at 05/25/2022 11:40 AM EST ----- Please call [facility] pharmacy and find out when they will be getting tramadol back Leela Escoto DO documented in this encounter [facility] 05-25-2022 Nurse Note Pt. Given covid booster with no complaints. Riley Palmer MA documented in this encounter [facility] 05-25-2022 History of Present illness Narrative [...] C (98.1 F) Ht 167.6 cm (5' 6") Wt 79.8 kg (176 lb) SpO2 93% [...] pt's father cannot continue to go to [facility] weekly and cannot go to another [...] immunization - ICD9: V03.89, ICD10: Z23 - [employer] COVID-19 BIVALENT BOOSTER VACCINE, AGE 12+ YR Leela Escoto DO PDMP website checked and validated. All prescriptions have been APPROPRIATELY filled. No suspicious activity was identified. 05/25/2022 by Leela Escoto DO documented in this encounter [facility] 05-22-2022 Miscellaneous Notes patient phones requesting refills as follows: Last seen 02/24/22 . Last refill 11/24/21 . Requested Prescriptions Pending Prescriptions Disp Refills omeprazole (PRILOSEC) 40 mg capsule 90 capsule 1 Sig: Take 1 capsule by mouth once daily. Please review and advise. Adalberto Woods MA documented in this encounter [facility] 05-19-2022 Miscellaneous Notes patient phones requesting refills as follows: Last seen 02/24/22 . Last refill 04/21/22 . Requested Prescriptions Pending Prescriptions Disp Refills traMADol (ULTRAM) 50 mg tablet 60 tablet 0 Sig: Take 1 tablet by mouth twice daily for 30 days. Please review and advise. Adalberto Woods MA documented in this encounter [facility] 04-21-2022 Miscellaneous Notes Patient requesting refills: Last office visit 02/24/2022. Last refill 03/14/2022. Nov 05/25/2022 Requested Prescriptions Pending Prescriptions Disp Refills traMADol (ULTRAM) 50 mg tablet 60 tablet 0 Sig: Take 1 tablet by mouth twice daily for 30 days. Please review and advise. Riley Palmer MA documented in this encounter [facility] 04-12-2022 History of Present illness Narrative [...] follow up in 6 months Elise Heck APRN.FORMULA TECHNICIAN documented in this encounter [facility] 04-12-2022 Nurse Note Bladder scan obtained 87 ml of urine documented in this encounter [facility] 03-29-2022 History of Present illness Narrative [...] and removed VITALS: Height 167.6 cm (5' 6"), weight 79.4 kg (175 lb). ALLERGIES: Aleve [...] 2 weeks for bladder scan. Elise Heck APRN.CNP documented in this encounter [facility] 03-24-2022 Miscellaneous Notes Patient notified of results, verbalizes understanding of instructions. She has an appt 03/29/2022 in [place] with Elise Heck to discuss her inability to empty her bladder. Swati Brown ----- Message from Kelvin Nolasco PA-C sent at 03/24/2022 12:11 PM EST ----- Finish Antibiotics, if no further urinary concerns , may not need the appointment The bacteria is not cause for UTI , but needs to finish the antibiotic any way If much improved can cancel CHRISTINE [place], [place], A[place] ----- Message ----- From: Chel Matthews [facility] Sent: 03/23/2022 11:08 AM EST To: Kelvin Nolasco PA-C Please review final results for pt seen at [facility]. Hull placed. Pt was prescribed nitrofurantoin at discharge. Spoke with pt regarding current symptoms. Pt states she feels better. Has appointment with you on 03/31/22. Thank you documented in this encounter [facility] 03-23-2022 Miscellaneous Notes Dior Cee RNcredit office manager for [facility] calling and patient was to get ER follow up appt in 3 days from [place]. Hull cath in place and taking antibiotics. No availability, and she had one booked in [place] next week on Sunday, but offered Elise Coyner on Sunday in [place] and she took the appt. Patient aware and will be here. documented in this encounter [facility] 03-22-2022 Note Patient Outreach (AG FAMPLE) DIOR CARVAJAL ([id number]) 1965 F Date Time Provider Department 03/22/22 RILEY PALMER During your visit today, we recorded the following information about you: Riley Palmer MA 03/22/2022 9:16 AM Signed ED Follow Up: Patient discharged from [facility] ED on 03/20/2022. 1. How are you [...] you able to contact the office or salesperson parts provider prior to your ED visit? Not [...] Encounter Status:Closed by RILEY PALMER on 03/22/22 [facility] 03-22-2022 Note HNO ID: [id number] Author: Riley Palmer MA Service: ? Author Type: [employer] Feeder Type: Progress Notes Filed: 03/22/2022 9:16 AM Note Text: ED Follow Up: Patient discharged from [facility] ED on 03/20/2022. 1. How are you [...] you able to contact the office or salesperson parts provider prior to your ED visit? Not applicable 5. Is there anything else I can do for you today? Not applicable Tried contacting patient several times the mail box is full and cannot accept any messages at this time. Riley Palmer MA [facility] 03-22-2022 History of Present illness Narrative ED Follow Up: Patient discharged from [facility] ED on 03/20/2022. 1. How are you [...] you able to contact the office or salesperson parts provider prior to your ED visit? Not applicable 5. Is there anything else I can do for you today? Not applicable Tried contacting patient several times the mail box is full and cannot accept any messages at this time. Riley Palmer MA documented in this encounter [facility] 03-14-2022 Miscellaneous Notes Patient requesting refills as follows: Last Office Visit 12/02/21. Last Refill 02/14/22. Requested Prescriptions Pending Prescriptions Disp Refills traMADol (ULTRAM) 50 mg tablet 60 tablet 0 Sig: Take 1 tablet by mouth twice daily for 30 days. Please review and advise. Xochitl Torres MA documented in this encounter [facility] 02-24-2022 Note HNO ID: [id number] Author: Leela Escoto, DO Service: ? Author [...] burning in her abdomen, feels like her "guts are on fire" The pain wakes her up in the [...] ?F) Resp 16 Ht 167.6 cm (5' 6") Wt 80.7 kg (178 lb) SpO2 93% [...] rash. Nails: There (more content not included)... [facility] 02-24-2022 History of Present illness Narrative [...] burning in her abdomen, feels like her "guts are on fire" The pain wakes her up in the [...] F) Resp 16 Ht 167.6 cm (5' 6") Wt 80.7 kg (178 lb) SpO2 93% [...] ICD10: R10.9, G89.29 Under the care of DEANGELO Courtney 3. Smoker - ICD9: 305.1, ICD10: F17.200 [...] Leela Escoto DO documented in this encounter [facility] 02-14-2022 Miscellaneous Notes Patient requesting refills [...] Xochitl Torres MA documented in this encounter [facility] 01-11-2022 Miscellaneous Notes Pt. requesting refills: Last office visit 12/02/2021. Last refill tramadol last filled 12/14/2021 atorvastatin last filled 09/27/2021 02/24/2022 Requested Prescriptions Pending Prescriptions Disp Refills traMADol (ULTRAM) 50 mg tablet 60 tablet 0 Sig: Take 1 tablet by mouth twice daily for 30 days. atorvastatin (LIPITOR) 20 mg tablet 90 tablet 1 Sig: Take 1 tablet by mouth once daily. Please review and advise. Riley Palmer MA documented in this encounter [facility] 12-29-2021 Miscellaneous Notes patient phones requesting refills as follows: Last seen 12/02/21 . Last refill 09/29/21 . Requested Prescriptions Pending Prescriptions Disp Refills mirabegron (MYRBETRIQ) 25 mg Tb24 90 tablet 1 Sig: Take 1 tablet by mouth once daily. Please review and advise. Adalberto Woods MA documented in this encounter [facility] 12-14-2021 Miscellaneous Notes Pt. requesting refills: Last office visit 12/02/21. Last refill 11/14/2021 02/24/22 Requested Prescriptions Pending Prescriptions Disp Refills traMADol (ULTRAM) 50 mg tablet 60 tablet 0 Sig: Take 1 tablet by mouth twice daily for 30 days. Please review and advise. Riley Palmer MA documented in this encounter [facility] 12-02-2021 Note HNO ID: [id number] Author: Leela Escoto, DO Service: ? Author Type: Physician Type: Progress Notes Filed: 12/17/2021 8:31 PM Note Text: SUBJECTIVE: 56 year old female for annual routine checkup. I have fully reviewed the past medical, surgical, social and family history and updated the Histories section of [facility]. Pt has history of chronic arthritis [...] of hypertension, GERD and hyperlipidemia. She smokes / PPD No LMP recorded. Patient has had [...] ?F) Resp 16 Ht 167.6 cm (5' 6") Wt 80.9 kg (178 lb 6.4 oz) [...] Musculoskeletal: No join (more content not included)... [facility] 11-24-2021 Miscellaneous Notes patient phones requesting refills as follows: Last seen 08/26/21 . Last refill 05/10/21 . Requested Prescriptions Pending Prescriptions Disp Refills omeprazole (PRILOSEC) 40 mg capsule 90 capsule 1 Sig: Take 1 capsule by mouth once daily. Please review and advise. Adalberto Woods MA documented in this encounter [facility] 11-11-2021 Miscellaneous Notes patient phones requesting refills as follows: Last seen 09/22/21 . Last refill 10/11/21 . Requested Prescriptions Pending Prescriptions Disp Refills traMADol (ULTRAM) 50 mg tablet 60 tablet 0 Sig: Take 1 tablet by mouth twice daily for 30 days. Please review and advise. Adalberto Woods MA documented in this encounter [facility] 10-11-2021 Miscellaneous Notes patient phones requesting refills as follows: Last seen 08/26/21 . Last refill 09/14/21 . Pending Prescriptions Disp Refills TRAMADOL 50 MG TABLET 60 tablet 0 Sig: Take 1 tablet by mouth twice daily for 30 days. ANNA Class: C-IV KEVON: No Please review and advise. Adalberto Woods MA documented in this encounter [facility] 09-29-2021 Miscellaneous Notes Last OV 08/26/21 Apt 12/02/21 Patient phones requesting refills as follows: Pending Prescriptions Disp Refills MIRABEGRON ER 25 MG TABLET,EXTENDED RELEASE 24 HR 90 tablet 1 Sig: Take 1 tablet by mouth once daily. KEVON: No Please review and advise. Carmelita Hummel MA documented in this encounter [facility] 09-27-2021 Miscellaneous Notes Pharmacy requesting refills as follows: Last Office Visit 08/26/21 nov 12/02/21. Last Refill 04/08/21. Pending Prescriptions Disp Refills ATORVASTATIN 20 MG TABLET 90 tablet 1 Sig: Take 1 tablet by mouth once daily. KEVON: No Please review and advise. Xochitl Torres MA documented in this encounter [facility] 09-14-2021 Miscellaneous Notes Patient requesting refills: Last office visit 08/26/2021. Last refill 08/08/2021 nov 12/02/2021 Pending Prescriptions Disp Refills TRAMADOL 50 MG TABLET 60 tablet 0 Sig: Take 1 tablet by mouth twice daily for 30 days. ANNA Class: C-IV KEVON: No Please review and advise. Riley Palmer MA documented in this encounter [facility] 08-08-2021 Miscellaneous Notes Patient requesting refills: Last office visit 05/26/2021 Last refill 07/11/2021 Nov 08/26/2021 Pending Prescriptions Disp Refills TRAMADOL 50 MG TABLET 60 tablet 0 Sig: Take 1 tablet by mouth twice daily for 30 days. ANNA Class: C-IV KEVON: No Please review and advise. Riley Palmer MA documented in this encounter [facility] 07-11-2021 Miscellaneous Notes Last OV 05/26/21 Apt 08/26/21 UDS 11/16/20 Pharmacy calls in requesting the following refill(s): Pending Prescriptions Disp Refills TRAMADOL 50 MG TABLET 60 tablet 0 Sig: Take 1 tablet by mouth twice daily for 30 days. ANNA Class: C-IV KEVON: No Carmelita Hummel MA documented in this encounter [facility] 06-27-2021 Miscellaneous Notes Last OV 05/26/21 Apt 08/26/21 Labs 06/23/21 Patient phones requesting refills as follows: Pending Prescriptions Disp Refills MIRABEGRON ER 25 MG TABLET,EXTENDED RELEASE 24 HR 90 tablet 1 Sig: Take 1 tablet by mouth once daily. KEVON: No Please review and advise. Carmelita Hummel MA documented in this encounter [facility] 06-23-2021 Miscellaneous Notes Patient informed. Xochitl Torres MA ----- Message from Orin Smith MD sent at 06/23/2021 2:04 PM EDT ----- Patient's triglycerides are slightly elevated. Continue to monitor diet. Remaining cholesterol and other labs are fairly unremarkable. documented in this encounter [facility] Evaluation note Diagnosis Overactive bladder Hypertonicity of bladder [facility] Diagnosis Osteoarthritis of multiple joints, unspecified osteoarthritis type Chronic neck pain Cervicalgia [facility] Osteoarthritis of multiple joints, unspecified osteoarthritis type Chronic neck pain Cervicalgia [facility] Diagnosis Osteoarthritis of multiple joints, unspecified osteoarthritis type Chronic neck pain C[facility]icalgia [facility] Pure hypercholesterolemia [facility] Diagnosis Osteoarthritis of multiple joints, unspecified osteoarthritis type Chronic neck pain Cervicalgia [facility] Heartburn [facility] Diagnosis Osteoarthritis of multiple joints, unspecified osteoarthritis type Chronic neck pain Cervicalgia [facility] Overactive bladder Hypertonicity of bladder [facility] Diagnosis Osteoarthritis of multiple joints, unspecified osteoarthritis type Chronic neck pain Cervicalgia Pure hypercholesterolemia documented in this encounter [facility] note* Diagnosis Osteoarthritis of multiple joints, unspecified osteoarthritis type Chronic neck pain Cervicalgia Essential hypertension Unspecified essential hypertension documented in this encounter [facility] note* Diagnosis Chronic cervical pain- Primary Cervicalgia Chronic abdominal pain Abdominal pain, unspecified site Smoker Tobacco use disorder documented in this encounter [facility] note* Diagnosis Osteoarthritis of multiple joints, unspecified osteoarthritis type Chronic neck pain Cervicalgia documented in this encounter [facility] note* Diagnosis Urine retention- Primary Retention of urine, unspecified Acute cystitis without hematuria Acute cystitis Urge incontinence documented in this encounter [facility] note* Diagnosis Overactive bladder- Primary Hypertonicity of bladder Urine retention Retention of urine, unspecified Frequent UTI Urinary tract infection, site not specified Atrophic vaginitis Postmenopausal atrophic vaginitis documented in this encounter [facility] note* Diagnosis Osteoarthritis of multiple joints, unspecified osteoarthritis type Chronic neck pain Cervicalgia documented in this encounter [facility] note* Diagnosis Heartburn documented in this encounter [facility] note* Diagnosis Essential hypertension- Primary Unspecified essential hypertension Chronic cervical pain Cervicalgia Grief Adjustment disorder with depressed mood Smoker Tobacco use disorder Encounter for immunization Need for other specified prophylactic vaccination against single bacterial disease documented in this encounter [facility] note* Diagnosis Osteoarthritis of multiple joints, unspecified osteoarthritis type Chronic neck pain Cervicalgia documented in this encounter [facility] note* Diagnosis Osteoarthritis of multiple joints, unspecified osteoarthritis type Chronic neck pain Cervicalgia documented in this encounter [facility] note* Diagnosis Pure hypercholesterolemia documented in this encounter [facility] note* Diagnosis Primary osteoarthritis involving multiple joints- Primary documented in this encounter [facility] note* Diagnosis Essential hypertension- Primary Unspecified essential hypertension Abnormal gait Abnormality of gait Chronic cervical pain Cervicalgia documented in this encounter [facility] note* Diagnosis Pain due to onychomycosis of toenail of right foot- Primary Pain due to onychomycosis of toenail of left foot Aspirin long-term use Encounter for long-term (current) use of aspirin documented in this encounter [facility] note* Diagnosis Essential hypertension- Primary Unspecified essential hypertension Abnormal gait Abnormality of gait Chronic cervical pain Cervicalgia [facility] Diagnosis Osteoarthritis of multiple joints, unspecified osteoarthritis type Chronic neck pain Cervicalgia documented in this encounter [facility] note* Diagnosis Osteoarthritis of multiple joints, unspecified osteoarthritis type- Primary Essential hypertension Unspecified essential hypertension Chronic neck pain Cervicalgia Abnormal gait Abnormality of gait documented in this encounter [facility] note* Diagnosis Osteoarthritis of multiple joints, unspecified osteoarthritis type- Primary Essential hypertension Unspecified essential hypertension Chronic neck pain Cervicalgia Abnormal gait Abnormality of gait documented in this encounter [facility] note* Diagnosis OPENED IN ERROR- Primary To allow closing an encounter opened in error (used in SmartSet) documented in this encounter [facility] note* Diagnosis Osteoarthritis of multiple joints, unspecified osteoarthritis type Chronic neck pain Cervicalgia documented in this encounter [facility] note* Diagnosis Nail dystrophy- Primary Other specified disease of nail Aspirin long-term use Encounter for long-term (current) use of aspirin [facility] Diagnosis Osteoarthritis of multiple joints, unspecified osteoarthritis type- Primary Chronic neck pain Cervicalgia Essential hypertension Unspecified essential hypertension [facility]* Diagnosis Nail dystrophy- Primary Other specified disease of nail Aspirin long-term use Encounter for long-term (current) use of aspirin documented in this encounter [facility] note* Diagnosis Osteoarthritis of multiple joints, unspecified osteoarthritis type- Primary Chronic neck pain Cervicalgia Essential hypertension Unspecified essential hypertension [facility]* Diagnosis Osteoarthritis of multiple joints, unspecified osteoarthritis type Chronic neck pain Cervicalgia documented in this encounter [facility] note* Diagnosis Osteoarthritis of multiple joints, unspecified osteoarthritis type- Primary Left hip pain Pain in joint, pelvic region and thigh [facility] Diagnosis Nail dystrophy- Primary Other specified disease of nail Aspirin long-term use Encounter for long-term (current) use of aspirin [facility]* Diagnosis Osteoarthritis of multiple joints, unspecified osteoarthritis type- Primary Left hip pain Pain in joint, pelvic region and thigh Chronic neck pain Cervicalgia Essential hypertension Unspecified essential hypertension documented in this encounter [facility] note* Diagnosis Leukocytosis, unspecified type- Primary Confusion Unspecified psychosis [facility] Diagnosis Foul smelling urine- Primary Other nonspecific finding on examination of urine [facility]* Diagnosis Osteoarthritis of multiple joints, unspecified osteoarthritis type- Primary Essential hypertension Unspecified essential hypertension Chronic cervical pain Cervicalgia [facility]* Diagnosis Foul smelling urine- Primary Other nonspecific finding on examination of urine Recurrent UTI Urinary tract infection, site not specified documented in this encounter [facility] note* Diagnosis Brain lesion [G93.9]- Primary Other conditions of brain [facility]* Diagnosis Fall, initial encounter- Primary [facility]* 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, unspecified site Hemiparesis, unspecified hemiparesis etiology, unspecified laterality (HCC) Mild cognitive impairment Mild cognitive impairment, so stated Cognitive decline Unspecified persistent mental disorders due to conditions classified elsewhere [facility]* Diagnosis Astrocytoma (HCC)- Primary Malignant neoplasm of brain, unspecified site [facility]* Diagnosis Chronic cervical pain- Primary Cervicalgia [facility]* Diagnosis Nail dystrophy- Primary Other specified disease of nail Aspirin long-term use Encounter for long-term (current) use of aspirin [facility]* Diagnosis Fall, initial encounter- Primary [facility]* Diagnosis Osteoarthritis involving multiple joints on both sides of body- Primary [facility]* Diagnosis Astrocytoma (HCC) Malignant neoplasm of brain, unspecified site 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, unspecified site Cognitive decline Unspecified persistent mental disorders due to conditions classified elsewhere 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, unspecified site Cognitive decline Unspecified persistent mental disorders due to conditions classified elsewhere [facility]* Diagnosis Astrocytoma (HCC) Malignant neoplasm of brain, unspecified site 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, unspecified site Cognitive decline Unspecified persistent mental disorders due to conditions classified elsewhere [facility]* Diagnosis Allergy to intravenous contrast media- [...] (HCC) Quadriplegia, unspecified [facility]* 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, unspecified site [facility]* Diagnosis Allergy to intravenous contrast media Allergy, unspecified not elsewhere classified 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, unspecified site Mild cognitive impairment Mild cognitive impairment, so stated Cognitive decline Unspecified persistent mental disorders due to conditions classified elsewhere [facility]* Diagnosis Acute cystitis without hematuria- Primary Acute cystitis [facility]* Diagnosis Allergy to intravenous contrast media Allergy, unspecified not elsewhere classified 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, unspecified site Mild cognitive impairment Mild cognitive impairment, so stated Cognitive decline Unspecified persistent mental disorders due to conditions classified elsewhere [facility]* Diagnosis Brain tumor (HCC)- Primary Neoplasm of unspecified nature of brain [facility]* 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 [...] Other postprocedural status [facility]* Diagnosis Allergy to intravenous contrast media [...] (HCC) Quadriplegia, unspecified documented in this encounter [facility] note* Diagnosis Astrocytoma brain tumor (HCC) [...] encounter for fracture [facility] Diagnosis Hyperlipidemia, unspecified hyperlipidemia type- [...] (HCC) Quadriplegia, unspecified [facility]* 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, unspecified site [facility] 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 [...] Spasm of muscle [facility] noteNo assessment information availableWCleveland Clinic [facility] Work Phone: Evaluation note* 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, unspecified site [facility]* Diagnosis Spasticity- Primary Abnormal involuntary movements 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, unspecified site [facility]* 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, unspecified site [facility] 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, unspecified site [facility] 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 Unspecified monoplegia Spasticity Abnormal involuntary movements History of brain tumor Personal history of other disorders of nervous system and sense organs History of stroke Transient ischemic attack (TIA), and cerebral infarction without residual deficits [facility] 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, unspecified site Spasticity Abnormal involuntary movements Cognitive decline Unspecified persistent mental disorders due to conditions classified elsewhere [facility] Diagnosis Glioblastoma (HCC)- Primary Malignant neoplasm of brain, unspecified site [facility] Diagnostic Procedure Only (Routine) - New Request Specialty Diagnoses / Procedures Referred By Jaycee t Referred To Contact XR IMAGING Diagnoses Allergy to intravenous contrast media Anaplastic astrocytoma (HCC) Mild cognitive impairment Cognitive decline Occlusion and stenosis of unspecified carotid artery Pathological fracture, other site, initial encounter for fracture Injury of cervical spinal cord, sequela (HCC) Quadriplegia (HCC) Procedures XR CERVICAL 2V FLEX/EXT RADEX SPINE CERVICAL 2 OR 3 VIEWS Mini Whyte MD [address] [place] [id number] Xr Imaging [place] [address] Referral ID Status Reason Start Date Expiration Date Visits Requested Visits Authorized [id number] New Request Auto-Generat ed Referral 04/03/2025 1 1 * Consult, Test, Treat (Routine) - Authorized Specialty Diagnoses / Procedures Referred By Jaycee kerr Referred To Contact Neurology Diagnoses Allergy to intravenous contrast media Anaplastic astrocytoma (HCC) Mild cognitive impairment Cognitive decline Occlusion and stenosis of unspecified carotid artery Pathological fracture, other site, initial encounter for fracture Injury of cervical spinal cord, sequela (HCC) Quadriplegia (HCC) Procedures CONSULT TO NEUROLOGY OFFICE/OUTPATIENT NEW HIGH MDM 60 MINUTES Mini Whyte MD [address] [address] [facility] [address] [place] [address] Referral ID Status Reason Start Date Expiration Date Visits Requested Visits Authorized [id number] Authorized PCP Requested Referral 4 03/04/2025 1 1 * Consult, Test, Treat (Routine) - Authorized Specialty Diagnoses / Procedures Referred By Contac t Referred To Contact Spine Marvin Diagnoses Allergy to intravenous contrast media Anaplastic astrocytoma (HCC) Mild cognitive impairment Cognitive decline Occlusion and stenosis of unspecified carotid artery Pathological fracture, other site, initial encounter for fracture Injury of cervical spinal cord, sequela (HCC) Quadriplegia (HCC) Procedures CONSULT TO [facility] OFFICE/OUTPATIENT [facility] 60 MINUTES Mini Whyte MD [address] [address] [facility] [address] [place] [address] Referral ID Status Reason Start Date Expiration Date Visits Requested Visits Authorized [id number] Authorized PCP Requested Referral 4 03/04/2025 1 [...] Quadriplegia (HCC) Procedures CONSULT TO NEUROLOGY OFFICE/OUTPATIENT [facility] 60 MINUTES Mini Whyte MD [address] [address] [place] [address] [place] [address] Referral ID Status Reason Start Date Expiration Date Visits Requested Visits Authorized [id number] Authorized PCP Requested Referral 4 03/04/2025 1 1 * MRI/CT (Routine) - [...] MRI SPINAL CANAL CERVICAL W/O & W/CONTR Mini Peterson MD [address] [place] [address] Mr Imaging [place] [address] Referral ID Status Reason Start Date Expiration Date Visits Requested Visits Authorized [id number] New Request Auto-Generat ed Referral 04/03/2025 1 [...] MRA, NECK; W/O CONTRAST Mini Whyte MD [address] [place] [address] Mr Imaging [place] [address] Referral ID Status Reason Start Date Expiration Date Visits Requested Visits Authorized [id number] New Request Auto-Generat ed Referral 04/03/2025 1 [...] MRA, HEAD W/O CONTRAST Mini Whyte MD [address] [place] [address] Mr Imaging [facility]95 Referral ID Status Reason Start Date Expiration Date Visits Requested Visits Authorized [id number] New Request Auto-Generat ed Referral 04/03/2025 1 1 [facility] for referral (narrative)No reason for referral information availableWCleveland Clinic [facility] Work Phone: [facility] N[facility]* Diagnostic Procedure Only (Routine) [...] 2 OR 3 VIEWS Mini Whyte MD [address] [place] [address] Phone: tel: fax: XR IMAGING [facility]95 Referral ID Status Reason Start Date Expiration Date V isits Requested Visits Authorized [id number] Closed Auto-Generate d Referral 03/04/2024 04/03/2025 1 1 [facility] for visit Narrative* MRI/CT (Routine) - Closed Specialty Diagnoses / Procedures Referred By Contac t Referred To Contact MR IMAGING Diagnoses Anaplastic astrocytoma (HCC) Procedures MRI BRAIN WO/W IVCON MRI BRAIN BRAIN STEM W/O W/CONTRAST MATERIAL Mini Whyte MD [address] [place] [address] Phone: tel: fax: MR IMAGING [facility] Referral ID Status Reason Start Date Expiration Date V isits Requested Visits Authorized [id number] Closed Auto-Generate d Referral 05/28/2024 06/27/2025 1 1 [facility] for visit Narrative* MRI/CT (Routine) - Closed Specialty Diagnoses / Procedures Referred By Contac t Referred To Contact MR IMAGING Diagnoses Astrocytoma brain tumor (HCC) Procedures MRI BRAIN WO/W IVCON MRI BRAIN BRAIN STEM W/O W/CONTRAST MATERIAL Mini Whyte MD [address] [place] [address] Phone: tel: fax: MR IMAGING [place] [address] Referral ID Status Reason Start Date Expiration Date V isits Requested Visits Authorized [id number] Closed Auto-Generate d Referral 08/05/2024 09/04/2025 1 1 [facility] Summary Purpose Family History No Family History Records FoundNo Family History Records FoundNo Family History Records FoundNo Family History Records FoundNo Family History Records Found Advance Directives No Advanced Directives Records FoundNo Advanced Directives Records FoundNo Advanced Directives Records FoundNo Advanced Directives Records FoundNo Advanced Directives Records Found Reason for Referral Specialty Diagnoses / Procedures Referred By Contac t Referred To Contact Diagnoses Anaplastic astrocytoma (HCC) Hemiparesis, unspecified hemiparesis etiology, unspecified laterality (HCC) Cognitive decline Procedures NEUROPSYCHOLOGICAL TESTING CONSULT NEUROBEHAVIORAL STATUS XM PHYS/QHP 1ST HOUR NEUROPSYCHOLOGICAL TST EVAL PHYS/QHP 1ST HOUR NEUROPSYCHOLOGICAL TST EVAL PHYS/QHP EA ADDL HR PSYCL/NRPSYCL TST TECH 2+ TST 1ST 30 MIN PSYCL/NRPSYCL TST TECH 2+ TST EA ADDL 30 MIN Mini Whyte MD [address] [place] [address] [facility] [address] [place] [address] Referral ID Status Reason Start Date Expiration Date Visits Requested Visits Authorized [id number] Ref Not Required PCP Requested Referral 4 01/20/2025 1 3 Specialty Diagnoses / Procedures Referred By Contac t Referred To Contact MR IMAGING Diagnoses Astrocytoma (HCC) Procedures MRI BRAIN WO/W IVCON MRI BRAIN BRAIN STEM W/O W/CONTRAST MATERIAL Mini hWyte MD [address] [place] [address] Mr Imaging [place] [address] Referral ID Status Reason Start Date Expiration Date Visits Requested Visits Authorized [id number] Authorized Auto-Generat ed Referral 02/21/2025 1 1 Specialty Diagnoses / Procedures Referred By Contac t Referred To Contact MR IMAGING Diagnoses Anaplastic astrocytoma (HCC) Cognitive decline Procedures MRI BRAIN WO IVCON MRI BRAIN BRAIN STEM W/O CONTRAST MATERIAL Mini Whyte MD [address] [place] [phone] Mr Imaging [facility]95 Referral ID Status Reason Start Date Expiration Date Visits Requested Visits Authorized [id number] New Request Auto-Generat ed Referral 02/28/2024 03/29/2025 1 1 Specialty Diagnoses / Procedures Referred By Contac t Referred To Contact MR IMAGING Diagnoses Astrocytoma brain tumor (HCC) Procedures MRI BRAIN WO/W IVCON MRI BRAIN BRAIN STEM W/O W/CONTRAST MATERIAL Mini Whyet MD [address] [place] [address] Mr Imaging [place] [address] Referral ID Status Reason Start Date Expiration Date Visits Requested Visits Authorized [id number] Authorized Auto-Generat ed Referral 04/03/2025 1 1 Chief Complaint and Reason for Visit Chief Complaint Admit Date LABWORK March 27, 2024 7: 20am [facility] WORK March 28, 2024 4:00am [facility] WORK March 31, 2024 5:00am COGNITIVE DECLINE, POST SPINAL CORD SURG JOSEPHINE April 29, 2024 11:28am Chief Complaint Admit Date COGNITIVE DECLINE, POST SPINAL CORD SURG JOSEPHINE April 29, 2024 11:28am LABWORK August 07, 2024 5:00a m LABWORK August 08, 2024 5:00a m [facility] LAB WORK August 13, 2024 4:0 0am Additional Source Comments INFORMATION SOURCE (unrecogn ized section and content) DATE CREATED AUTHOR 06/22/2020 [facility] DATE CREATED AUTHOR AUTHOR'S ORGANIZ ATION 01/21/2022 [facility] DATE CREATED AUTHOR AUTHOR'S ORGANIZ ATION 08/07/2022 [facility] DATE CREATED AUTHOR AUTHOR'S ORGANIZ ATION 11/14/2024 [facility] DATE CREATED AUTHOR AUTHOR'S ORGANTREY ATION 11/29/2024 [facility] Comments (unrecognize d section and content) In the event this informatio n is protected by the Federal Confidentiality of Alcohol and Drug Abuse Patient Records regulations: The Federal rules restrict any use of the information to criminally investigate or prosecute any alcohol or drug abuse patient.[facility]In the event this information is protected by the Federal Confidentiality of Alcohol and Drug Abuse Patient Records regulations: The Federal rules restrict any use of the information to criminally investigate or prosecute any alcohol or drug abuse patient.[facility] HospitalIn the event this information is protected by the Federal Confidentiality of Alcohol and Drug Abuse Patient Records regulations: The Federal rules restrict any use of the information to criminally investigate or prosecute any alcohol or drug abuse patient.[facility] HospitalIn the event this information is protected by the Federal Confidentiality of Alcohol and Drug Abuse Patient Records regulations: The Federal rules restrict any use of the information to criminally investigate or prosecute any alcohol or drug abuse patient.[facility] HospitalIn the event this information is protected by the Federal Confidentiality of Alcohol and Drug Abuse Patient Records regulations: The Federal rules restrict any use of the information to criminally investigate or prosecute any alcohol or drug abuse patient.[facility] HospitalIn the event this information is protected by the Federal Confidentiality of Alcohol and Drug Abuse Patient Records regulations: The Federal rules restrict any use of the information to criminally investigate or prosecute any alcohol or drug abuse patient.[facility] HospitalIn the event this information is protected by the Federal Confidentiality of Alcohol and Drug Abuse Patient Records regulations: The Federal rules restrict any use of the information to criminally investigate or prosecute any alcohol or drug abuse patient.[facility] HospitalIn the event this information is protected by the Federal Confidentiality of Alcohol and Drug Abuse Patient Records regulations: The Federal rules restrict any use of the information to criminally investigate or prosecute any alcohol or drug abuse patient.[facility] HospitalIn the event this information is protected by the Federal Confidentiality of Alcohol and Drug Abuse Patient Records regulations: The Federal rules restrict any use of the information to criminally investigate or prosecute any alcohol or drug abuse patient.[facility] HospitalIn the event this information is protected by the Federal Confidentiality of Alcohol and Drug Abuse Patient Records regulations: The Federal rules restrict any use of the information to criminally investigate or prosecute any alcohol or drug abuse patient.[facility] HospitalIn the event this information is protected by the Federal Confidentiality of Alcohol and Drug Abuse Patient Records regulations: The Federal rules restrict any use of the information to criminally investigate or prosecute any alcohol or drug abuse patient.[facility] HospitalIn the event this information is protected by the Federal Confidentiality of Alcohol and Drug Abuse Patient Records regulations: The Federal rules restrict any use of the information to criminally investigate or prosecute any alcohol or drug abuse patient.[facility] HospitalIn the event this information is protected by the Federal Confidentiality of Alcohol and Drug Abuse Patient Records regulations: The Federal rules restrict any use of the information to criminally investigate or prosecute any alcohol or drug abuse patient.[facility] HospitalIn the event this information is protected by the Federal Confidentiality of Alcohol and Drug Abuse Patient Records regulations: The Federal rules restrict any use of the information to criminally investigate or prosecute any alcohol or drug abuse patient.[facility] HospitalIn the event this information is protected by the Federal Confidentiality of Alcohol and Drug Abuse Patient Records regulations: The Federal rules restrict any use of the information to criminally investigate or prosecute any alcohol or drug abuse patient.[facility] HospitalIn the event this information is protected by the Federal Confidentiality of Alcohol and Drug Abuse Patient Records regulations: The Federal rules restrict any use of the information to criminally investigate or prosecute any alcohol or drug abuse patient.[facility] HospitalIn the event this information is protected by the Federal Confidentiality of Alcohol and Drug Abuse Patient Records regulations: The Federal rules restrict any use of the information to criminally investigate or prosecute any alcohol or drug abuse patient.[facility] HospitalIn the event this information is protected by the Federal Confidentiality of Alcohol and Drug Abuse Patient Records regulations: The Federal rules restrict any use of the information to criminally investigate or prosecute any alcohol or drug abuse patient.[facility] HospitalIn the event this information is protected by the Federal Confidentiality of Alcohol and Drug Abuse Patient Records regulations: The Federal rules restrict any use of the information to criminally investigate or prosecute any alcohol or drug abuse patient.[facility] HospitalIn the event this information is protected by the Federal Confidentiality of Alcohol and Drug Abuse Patient Records regulations: The Federal rules restrict any use of the information to criminally investigate or prosecute any alcohol or drug abuse patient.[facility] HospitalIn the event this information is protected by the Federal Confidentiality of Alcohol and Drug Abuse Patient Records regulations: The Federal rules restrict any use of the information to criminally investigate or prosecute any alcohol or drug abuse patient.[facility] HospitalIn the event this information is protected by the Federal Confidentiality of Alcohol and Drug Abuse Patient Records regulations: The Federal rules restrict any use of the information to criminally investigate or prosecute any alcohol or drug abuse patient.[facility] HospitalIn the event this information is protected by the Federal Confidentiality of Alcohol and Drug Abuse Patient Records regulations: The Federal rules restrict any use of the information to criminally investigate or prosecute any alcohol or drug abuse patient.[facility] HospitalIn the event this information is protected by the Federal Confidentiality of Alcohol and Drug Abuse Patient Records regulations: The Federal rules restrict any use of the information to criminally investigate or prosecute any alcohol or drug abuse patient.[facility] HospitalIn the event this information is protected by the Federal Confidentiality of Alcohol and Drug Abuse Patient Records regulations: The Federal rules restrict any use of the information to criminally investigate or prosecute any alcohol or drug abuse patient.[facility] HospitalIn the event this information is protected by the Federal Confidentiality of Alcohol and Drug Abuse Patient Records regulations: The Federal rules restrict any use of the information to criminally investigate or prosecute any alcohol or drug abuse patient.[facility] HospitalIn the event this information is protected by the Federal Confidentiality of Alcohol and Drug Abuse Patient Records regulations: The Federal rules restrict any use of the information to criminally investigate or prosecute any alcohol or drug abuse patient.[facility] HospitalIn the event this information is protected by the Federal Confidentiality of Alcohol and Drug Abuse Patient Records regulations: The Federal rules restrict any use of the information to criminally investigate or prosecute any alcohol or drug abuse patient.[facility] HospitalIn the event this information is protected by the Federal Confidentiality of Alcohol and Drug Abuse Patient Records regulations: The Federal rules restrict any use of the information to criminally investigate or prosecute any alcohol or drug abuse patient.[facility] HospitalIn the event this information is protected by the Federal Confidentiality of Alcohol and Drug Abuse Patient Records regulations: The Federal rules restrict any use of the information to criminally investigate or prosecute any alcohol or drug abuse patient.[facility] HospitalIn the event this information is protected by the Federal Confidentiality of Alcohol and Drug Abuse Patient Records regulations: The Federal rules restrict any use of the information to criminally investigate or prosecute any alcohol or drug abuse patient.[facility] HospitalIn the event this information is protected by the Federal Confidentiality of Alcohol and Drug Abuse Patient Records regulations: The Federal rules restrict any use of the information to criminally investigate or prosecute any alcohol or drug abuse patient.[facility] HospitalIn the event this information is protected by the Federal Confidentiality of Alcohol and Drug Abuse Patient Records regulations: The Federal rules restrict any use of the information to criminally investigate or prosecute any alcohol or drug abuse patient.[facility] HospitalIn the event this information is protected by the Federal Confidentiality of Alcohol and Drug Abuse Patient Records regulations: The Federal rules restrict any use of the information to criminally investigate or prosecute any alcohol or drug abuse patient.[facility] HospitalIn the event this information is protected by the Federal Confidentiality of Alcohol and Drug Abuse Patient Records regulations: The Federal rules restrict any use of the information to criminally investigate or prosecute any alcohol or drug abuse patient.[facility] HospitalIn the event this information is protected by the Federal Confidentiality of Alcohol and Drug Abuse Patient Records regulations: The Federal rules restrict any use of the information to criminally investigate or prosecute any alcohol or drug abuse patient.[facility] HospitalIn the event this information is protected by the Federal Confidentiality of Alcohol and Drug Abuse Patient Records regulations: The Federal rules restrict any use of the information to criminally investigate or prosecute any alcohol or drug abuse patient.[facility] HospitalIn the event this information is protected by the Federal Confidentiality of Alcohol and Drug Abuse Patient Records regulations: The Federal rules restrict any use of the information to criminally investigate or prosecute any alcohol or drug abuse patient.[facility] HospitalIn the event this information is protected by the Federal Confidentiality of Alcohol and Drug Abuse Patient Records regulations: The Federal rules restrict any use of the information to criminally investigate or prosecute any alcohol or drug abuse patient.[facility] HospitalIn the event this information is protected by the Federal Confidentiality of Alcohol and Drug Abuse Patient Records regulations: The Federal rules restrict any use of the information to criminally investigate or prosecute any alcohol or drug abuse patient.[facility] HospitalIn the event this information is protected by the Federal Confidentiality of Alcohol and Drug Abuse Patient Records regulations: The Federal rules restrict any use of the information to criminally investigate or prosecute any alcohol or drug abuse patient.[facility] HospitalIn the event this information is protected by the Federal Confidentiality of Alcohol and Drug Abuse Patient Records regulations: The Federal rules restrict any use of the information to criminally investigate or prosecute any alcohol or drug abuse patient.[facility] HospitalIn the event this information is protected by the Federal Confidentiality of Alcohol and Drug Abuse Patient Records regulations: The Federal rules restrict any use of the information to criminally investigate or prosecute any alcohol or drug abuse patient.[facility] HospitalIn the event this information is protected by the Federal Confidentiality of Alcohol and Drug Abuse Patient Records regulations: The Federal rules restrict any use of the information to criminally investigate or prosecute any alcohol or drug abuse patient.[facility] HospitalIn the event this information is protected by the Federal Confidentiality of Alcohol and Drug Abuse Patient Records regulations: The Federal rules restrict any use of the information to criminally investigate or prosecute any alcohol or drug abuse patient.[facility] HospitalIn the event this information is protected by the Federal Confidentiality of Alcohol and Drug Abuse Patient Records regulations: The Federal rules restrict any use of the information to criminally investigate or prosecute any alcohol or drug abuse patient.[facility] HospitalIn the event this information is protected by the Federal Confidentiality of Alcohol and Drug Abuse Patient Records regulations: The Federal rules restrict any use of the information to criminally investigate or prosecute any alcohol or drug abuse patient.[facility] HospitalIn the event this information is protected by the Federal Confidentiality of Alcohol and Drug Abuse Patient Records regulations: The Federal rules restrict any use of the information to criminally investigate or prosecute any alcohol or drug abuse patient.[facility] HospitalIn the event this information is protected by the Federal Confidentiality of Alcohol and Drug Abuse Patient Records regulations: The Federal rules restrict any use of the information to criminally investigate or prosecute any alcohol or drug abuse patient.[facility] HospitalIn the event this information is protected by the Federal Confidentiality of Alcohol and Drug Abuse Patient Records regulations: The Federal rules restrict any use of the information to criminally investigate or prosecute any alcohol or drug abuse patient.[facility] HospitalIn the event this information is protected by the Federal Confidentiality of Alcohol and Drug Abuse Patient Records regulations: The Federal rules restrict any use of the information to criminally investigate or prosecute any alcohol or drug abuse patient.[facility] HospitalIn the event this information is protected by the Federal Confidentiality of Alcohol and Drug Abuse Patient Records regulations: The Federal rules restrict any use of the information to criminally investigate or prosecute any alcohol or drug abuse patient.[facility] HospitalIn the event this information is protected by the Federal Confidentiality of Alcohol and Drug Abuse Patient Records regulations: The Federal rules restrict any use of the information to criminally investigate or prosecute any alcohol or drug abuse patient.[facility] HospitalIn the event this information is protected by the Federal Confidentiality of Alcohol and Drug Abuse Patient Records regulations: The Federal rules restrict any use of the information to criminally investigate or prosecute any alcohol or drug abuse patient.[facility] HospitalIn the event this information is protected by the Federal Confidentiality of Alcohol and Drug Abuse Patient Records regulations: The Federal rules restrict any use of the information to criminally investigate or prosecute any alcohol or drug abuse patient.[facility] HospitalIn the event this information is protected by the Federal Confidentiality of Alcohol and Drug Abuse Patient Records regulations: The Federal rules restrict any use of the information to criminally investigate or prosecute any alcohol or drug abuse patient.[facility] HospitalIn the event this information is protected by the Federal Confidentiality of Alcohol and Drug Abuse Patient Records regulations: The Federal rules restrict any use of the information to criminally investigate or prosecute any alcohol or drug abuse patient.[facility] HospitalIn the event this information is protected by the Federal Confidentiality of Alcohol and Drug Abuse Patient Records regulations: The Federal rules restrict any use of the information to criminally investigate or prosecute any alcohol or drug abuse patient.[facility] HospitalIn the event this information is protected by the Federal Confidentiality of Alcohol and Drug Abuse Patient Records regulations: The Federal rules restrict any use of the information to criminally investigate or prosecute any alcohol or drug abuse patient.[facility] HospitalIn the event this information is protected by the Federal Confidentiality of Alcohol and Drug Abuse Patient Records regulations: The Federal rules restrict any use of the information to criminally investigate or prosecute any alcohol or drug abuse patient.[facility] HospitalIn the event this information is protected by the Federal Confidentiality of Alcohol and Drug Abuse Patient Records regulations: The Federal rules restrict any use of the information to criminally investigate or prosecute any alcohol or drug abuse patient.[facility] HospitalIn the event this information is protected by the Federal Confidentiality of Alcohol and Drug Abuse Patient Records regulations: The Federal rules restrict any use of the information to criminally investigate or prosecute any alcohol or drug abuse patient.[facility] HospitalIn the event this information is protected by the Federal Confidentiality of Alcohol and Drug Abuse Patient Records regulations: The Federal rules restrict any use of the information to criminally investigate or prosecute any alcohol or drug abuse patient.[facility] HospitalIn the event this information is protected by the Federal Confidentiality of Alcohol and Drug Abuse Patient Records regulations: The Federal rules restrict any use of the information to criminally investigate or prosecute any alcohol or drug abuse patient.[facility] HospitalIn the event this information is protected by the Federal Confidentiality of Alcohol and Drug Abuse Patient Records regulations: The Federal rules restrict any use of the information to criminally investigate or prosecute any alcohol or drug abuse patient.[facility] HospitalIn the event this information is protected by the Federal Confidentiality of Alcohol and Drug Abuse Patient Records regulations: The Federal rules restrict any use of the information to criminally investigate or prosecute any alcohol or drug abuse patient.[facility] HospitalIn the event this information is protected by the Federal Confidentiality of Alcohol and Drug Abuse Patient Records regulations: The Federal rules restrict any use of the information to criminally investigate or prosecute any alcohol or drug abuse patient.[facility] HospitalIn the event this information is protected by the Federal Confidentiality of Alcohol and Drug Abuse Patient Records regulations: The Federal rules restrict any use of the information to criminally investigate or prosecute any alcohol or drug abuse patient.[facility] HospitalIn the event this information is protected by the Federal Confidentiality of Alcohol and Drug Abuse Patient Records regulations: The Federal rules restrict any use of the information to criminally investigate or prosecute any alcohol or drug abuse patient.[facility] HospitalIn the event this information is protected by the Federal Confidentiality of Alcohol and Drug Abuse Patient Records regulations: The Federal rules restrict any use of the information to criminally investigate or prosecute any alcohol or drug abuse patient.[facility] HospitalIn the event this information is protected by the Federal Confidentiality of Alcohol and Drug Abuse Patient Records regulations: The Federal rules restrict any use of the information to criminally investigate or prosecute any alcohol or drug abuse patient.[facility] HospitalIn the event this information is protected by the Federal Confidentiality of Alcohol and Drug Abuse Patient Records regulations: The Federal rules restrict any use of the information to criminally investigate or prosecute any alcohol or drug abuse patient.[facility] HospitalIn the event this information is protected by the Federal Confidentiality of Alcohol and Drug Abuse Patient Records regulations: The Federal rules restrict any use of the information to criminally investigate or prosecute any alcohol or drug abuse patient.[facility] HospitalIn the event this information is protected by the Federal Confidentiality of Alcohol and Drug Abuse Patient Records regulations: The Federal rules restrict any use of the information to criminally investigate or prosecute any alcohol or drug abuse patient.[facility] HospitalIn the event this information is protected by the Federal Confidentiality of Alcohol and Drug Abuse Patient Records regulations: The Federal rules restrict any use of the information to criminally investigate or prosecute any alcohol or drug abuse patient.[facility] HospitalIn the event this information is protected by the Federal Confidentiality of Alcohol and Drug Abuse Patient Records regulations: The Federal rules restrict any use of the information to criminally investigate or prosecute any alcohol or drug abuse patient.[facility] HospitalIn the event this information is protected by the Federal Confidentiality of Alcohol and Drug Abuse Patient Records regulations: The Federal rules restrict any use of the information to criminally investigate or prosecute any alcohol or drug abuse patient.[facility] HospitalIn the event this information is protected by the Federal Confidentiality of Alcohol and Drug Abuse Patient Records regulations: The Federal rules restrict any use of the information to criminally investigate or prosecute any alcohol or drug abuse patient.[facility] HospitalIn the event this information is protected by the Federal Confidentiality of Alcohol and Drug Abuse Patient Records regulations: The Federal rules restrict any use of the information to criminally investigate or prosecute any alcohol or drug abuse patient.[facility] HospitalIn the event this information is protected by the Federal Confidentiality of Alcohol and Drug Abuse Patient Records regulations: The Federal rules restrict any use of the information to criminally investigate or prosecute any alcohol or drug abuse patient.[facility] HospitalIn the event this information is protected by the Federal Confidentiality of Alcohol and Drug Abuse Patient Records regulations: The Federal rules restrict any use of the information to criminally investigate or prosecute any alcohol or drug abuse patient.[facility] HospitalIn the event this information is protected by the Federal Confidentiality of Alcohol and Drug Abuse Patient Records regulations: The Federal rules restrict any use of the information to criminally investigate or prosecute any alcohol or drug abuse patient.[facility] HospitalIn the event this information is protected by the Federal Confidentiality of Alcohol and Drug Abuse Patient Records regulations: The Federal rules restrict any use of the information to criminally investigate or prosecute any alcohol or drug abuse patient.[facility] HospitalIn the event this information is protected by the Federal Confidentiality of Alcohol and Drug Abuse Patient Records regulations: The Federal rules restrict any use of the information to criminally investigate or prosecute any alcohol or drug abuse patient.[facility] HospitalIn the event this information is protected by the Federal Confidentiality of Alcohol and Drug Abuse Patient Records regulations: The Federal rules restrict any use of the information to criminally investigate or prosecute any alcohol or drug abuse patient.[facility] HospitalIn the event this information is protected by the Federal Confidentiality of Alcohol and Drug Abuse Patient Records regulations: The Federal rules restrict any use of the information to criminally investigate or prosecute any alcohol or drug abuse patient.[facility] HospitalIn the event this information is protected by the Federal Confidentiality of Alcohol and Drug Abuse Patient Records regulations: The Federal rules restrict any use of the information to criminally investigate or prosecute any alcohol or drug abuse patient.[facility] HospitalIn the event this information is protected by the Federal Confidentiality of Alcohol and Drug Abuse Patient Records regulations: The Federal rules restrict any use of the information to criminally investigate or prosecute any alcohol or drug abuse patient.[facility] HospitalIn the event this information is protected by the Federal Confidentiality of Alcohol and Drug Abuse Patient Records regulations: The Federal rules restrict any use of the information to criminally investigate or prosecute any alcohol or drug abuse patient.[facility] HospitalIn the event this information is protected by the Federal Confidentiality of Alcohol and Drug Abuse Patient Records regulations: The Federal rules restrict any use of the information to criminally investigate or prosecute any alcohol or drug abuse patient.[facility] HospitalIn the event this information is protected by the Federal Confidentiality of Alcohol and Drug Abuse Patient Records regulations: The Federal rules restrict any use of the information to criminally investigate or prosecute any alcohol or drug abuse patient.[facility] HospitalIn the event this information is protected by the Federal Confidentiality of Alcohol and Drug Abuse Patient Records regulations: The Federal rules restrict any use of the information to criminally investigate or prosecute any alcohol or drug abuse patient.[facility] HospitalIn the event this information is protected by the Federal Confidentiality of Alcohol and Drug Abuse Patient Records regulations: The Federal rules restrict any use of the information to criminally investigate or prosecute any alcohol or drug abuse patient.[facility] HospitalIn the event this information is protected by the Federal Confidentiality of Alcohol and Drug Abuse Patient Records regulations: The Federal rules restrict any use of the information to criminally investigate or prosecute any alcohol or drug abuse patient.[facility] HospitalIn the event this information is protected by the Federal Confidentiality of Alcohol and Drug Abuse Patient Records regulations: The Federal rules restrict any use of the information to criminally investigate or prosecute any alcohol or drug abuse patient.[facility] HospitalIn the event this information is protected by the Federal Confidentiality of Alcohol and Drug Abuse Patient Records regulations: The Federal rules restrict any use of the information to criminally investigate or prosecute any alcohol or drug abuse patient.[facility] HospitalIn the event this information is protected by the Federal Confidentiality of Alcohol and Drug Abuse Patient Records regulations: The Federal rules restrict any use of the information to criminally investigate or prosecute any alcohol or drug abuse patient.[facility] HospitalIn the event this information is protected by the Federal Confidentiality of Alcohol and Drug Abuse Patient Records regulations: The Federal rules restrict any use of the information to criminally investigate or prosecute any alcohol or drug abuse patient.[facility] HospitalIn the event this information is protected by the Federal Confidentiality of Alcohol and Drug Abuse Patient Records regulations: The Federal rules restrict any use of the information to criminally investigate or prosecute any alcohol or drug abuse patient.[facility] HospitalIn the event this information is protected by the Federal Confidentiality of Alcohol and Drug Abuse Patient Records regulations: The Federal rules restrict any use of the information to criminally investigate or prosecute any alcohol or drug abuse patient.[facility] HospitalIn the event this information is protected by the Federal Confidentiality of Alcohol and Drug Abuse Patient Records regulations: The Federal rules restrict any use of the information to criminally investigate or prosecute any alcohol or drug abuse patient.[facility] HospitalIn the event this information is protected by the Federal Confidentiality of Alcohol and Drug Abuse Patient Records regulations: The Federal rules restrict any use of the information to criminally investigate or prosecute any alcohol or drug abuse patient.[facility] HospitalIn the event this information is protected by the Federal Confidentiality of Alcohol and Drug Abuse Patient Records regulations: The Federal rules restrict any use of the information to criminally investigate or prosecute any alcohol or drug abuse patient.[facility] HospitalIn the event this information is protected by the Federal Confidentiality of Alcohol and Drug Abuse Patient Records regulations: The Federal rules restrict any use of the information to criminally investigate or prosecute any alcohol or drug abuse patient.[facility] HospitalIn the event this information is protected by the Federal Confidentiality of Alcohol and Drug Abuse Patient Records regulations: The Federal rules restrict any use of the information to criminally investigate or prosecute any alcohol or drug abuse patient.[facility] HospitalIn the event this information is protected by the Federal Confidentiality of Alcohol and Drug Abuse Patient Records regulations: The Federal rules restrict any use of the information to criminally investigate or prosecute any alcohol or drug abuse patient.[facility] HospitalIn the event this information is protected by the Federal Confidentiality of Alcohol and Drug Abuse Patient Records regulations: The Federal rules restrict any use of the information to criminally investigate or prosecute any alcohol or drug abuse patient.[facility] HospitalIn the event this information is protected by the Federal Confidentiality of Alcohol and Drug Abuse Patient Records regulations: The Federal rules restrict any use of the information to criminally investigate or prosecute any alcohol or drug abuse patient.[facility] HospitalIn the event this information is protected by the Federal Confidentiality of Alcohol and Drug Abuse Patient Records regulations: The Federal rules restrict any use of the information to criminally investigate or prosecute any alcohol or drug abuse patient.[facility] HospitalIn the event this information is protected by the Federal Confidentiality of Alcohol and Drug Abuse Patient Records regulations: The Federal rules restrict any use of the information to criminally investigate or prosecute any alcohol or drug abuse patient.[facility] HospitalIn the event this information is protected by the Federal Confidentiality of Alcohol and Drug Abuse Patient Records regulations: The Federal rules restrict any use of the information to criminally investigate or prosecute any alcohol or drug abuse patient.[facility] HospitalIn the event this information is protected by the Federal Confidentiality of Alcohol and Drug Abuse Patient Records regulations: The Federal rules restrict any use of the information to criminally investigate or prosecute any alcohol or drug abuse patient.[facility] HospitalIn the event this information is protected by the Federal Confidentiality of Alcohol and Drug Abuse Patient Records regulations: The Federal rules restrict any use of the information to criminally investigate or prosecute any alcohol or drug abuse patient.[facility] HospitalIn the event this information is protected by the Federal Confidentiality of Alcohol and Drug Abuse Patient Records regulations: The Federal rules restrict any use of the information to criminally investigate or prosecute any alcohol or drug abuse patient.[facility] HospitalIn the event this information is protected by the Federal Confidentiality of Alcohol and Drug Abuse Patient Records regulations: The Federal rules restrict any use of the information to criminally investigate or prosecute any alcohol or drug abuse patient.[facility] HospitalIn the event this information is protected by the Federal Confidentiality of Alcohol and Drug Abuse Patient Records regulations: The Federal rules restrict any use of the information to criminally investigate or prosecute any alcohol or drug abuse patient.[facility] HospitalIn the event this information is protected by the Federal Confidentiality of Alcohol and Drug Abuse Patient Records regulations: The Federal rules restrict any use of the information to criminally investigate or prosecute any alcohol or drug abuse patient.[facility] HospitalIn the event this information is protected by the Federal Confidentiality of Alcohol and Drug Abuse Patient Records regulations: The Federal rules restrict any use of the information to criminally investigate or prosecute any alcohol or drug abuse patient.[facility] HospitalIn the event this information is protected by the Federal Confidentiality of Alcohol and Drug Abuse Patient Records regulations: The Federal rules restrict any use of the information to criminally investigate or prosecute any alcohol or drug abuse patient.[facility] HospitalIn the event this information is protected by the Federal Confidentiality of Alcohol and Drug Abuse Patient Records regulations: The Federal rules restrict any use of the information to criminally investigate or prosecute any alcohol or drug abuse patient.[facility] HospitalIn the event this information is protected by the Federal Confidentiality of Alcohol and Drug Abuse Patient Records regulations: The Federal rules restrict any use of the information to criminally investigate or prosecute any alcohol or drug abuse patient.[facility] HospitalIn the event this information is protected by the Federal Confidentiality of Alcohol and Drug Abuse Patient Records regulations: The Federal rules restrict any use of the information to criminally investigate or prosecute any alcohol or drug abuse patient.[facility] HospitalIn the event this information is protected by the Federal Confidentiality of Alcohol and Drug Abuse Patient Records regulations: The Federal rules restrict any use of the information to criminally investigate or prosecute any alcohol or drug abuse patient.[facility] HospitalIn the event this information is protected by the Federal Confidentiality of Alcohol and Drug Abuse Patient Records regulations: The Federal rules restrict any use of the information to criminally investigate or prosecute any alcohol or drug abuse patient.[facility] HospitalIn the event this information is protected by the Federal Confidentiality of Alcohol and Drug Abuse Patient Records regulations: The Federal rules restrict any use of the information to criminally investigate or prosecute any alcohol or drug abuse patient.[facility] HospitalIn the event this information is protected by the Federal Confidentiality of Alcohol and Drug Abuse Patient Records regulations: The Federal rules restrict any use of the information to criminally investigate or prosecute any alcohol or drug abuse patient.[facility] HospitalIn the event this information is protected by the Federal Confidentiality of Alcohol and Drug Abuse Patient Records regulations: The Federal rules restrict any use of the information to criminally investigate or prosecute any alcohol or drug abuse patient.[facility] HospitalIn the event this information is protected by the Federal Confidentiality of Alcohol and Drug Abuse Patient Records regulations: The Federal rules restrict any use of the information to criminally investigate or prosecute any alcohol or drug abuse patient.[facility] HospitalIn the event this information is protected by the Federal Confidentiality of Alcohol and Drug Abuse Patient Records regulations: The Federal rules restrict any use of the information to criminally investigate or prosecute any alcohol or drug abuse patient.[facility] HospitalIn the event this information is protected by the Federal Confidentiality of Alcohol and Drug Abuse Patient Records regulations: The Federal rules restrict any use of the information to criminally investigate or prosecute any alcohol or drug abuse patient.[facility] HospitalIn the event this information is protected by the Federal Confidentiality of Alcohol and Drug Abuse Patient Records regulations: The Federal rules restrict any use of the information to criminally investigate or prosecute any alcohol or drug abuse patient.[facility] HospitalIn the event this information is protected by the Federal Confidentiality of Alcohol and Drug Abuse Patient Records regulations: The Federal rules restrict any use of the information to criminally investigate or prosecute any alcohol or drug abuse patient.[facility] HospitalIn the event this information is protected by the Federal Confidentiality of Alcohol and Drug Abuse Patient Records regulations: The Federal rules restrict any use of the information to criminally investigate or prosecute any alcohol or drug abuse patient.[facility] HospitalIn the event this information is protected by the Federal Confidentiality of Alcohol and Drug Abuse Patient Records regulations: The Federal rules restrict any use of the information to criminally investigate or prosecute any alcohol or drug abuse patient.[facility] HospitalIn the event this information is protected by the Federal Confidentiality of Alcohol and Drug Abuse Patient Records regulations: The Federal rules restrict any use of the information to criminally investigate or prosecute any alcohol or drug abuse patient.[facility] HospitalIn the event this information is protected by the Federal Confidentiality of Alcohol and Drug Abuse Patient Records regulations: The Federal rules restrict any use of the information to criminally investigate or prosecute any alcohol or drug abuse patient.[facility] HospitalIn the event this information is protected by the Federal Confidentiality of Alcohol and Drug Abuse Patient Records regulations: The Federal rules restrict any use of the information to criminally investigate or prosecute any alcohol or drug abuse patient.[facility] Reason for Visit (unrecogniz ed section [...] MRI Specialty Diagnoses / Procedures Referred By Jaycee t Referred To Contact MR IMAGING Diagnoses Astrocytoma (HCC) Procedures MRI BRAIN WO/W IVCON MRI BRAIN BRAIN STEM W/O W/CONTRAST MATERIAL Mini Whyte MD [address] [place] [address] Mr Imaging [id number] Referral ID Status Reason Start Date Expiration Date V isits Requested Visits Authorized [id number] Closed Auto-Generate d Referral 01/23/2024 02/21/2025 1 1 Reason Comments Established Patient Reason Comments Future Appointment New Patient [place] Any Reason Comments Orders Premedication for co ntrast allergy Reason Comments Pathology slides and records requested Reason Comments Path slides not available Reason Comments MARYJANE 2-3 weeks Reason Comments MRA 04/02/24- facility aware Reason Comments Facility change to [facility] Reason Comments Toe [facility] - Other Reason Comments Confirm appt for 04/02/24 Reason Comments MARYJANE week of 05/26/24 Reason Comments Patient Update Reason Comments Images requested MRA/MRI Reason Comments Brain Tumor Reason Comments MARYJANE 3-4 weeks Reason Comments MARYJANE Add on for 3/3 Reason Comments Sign up for My chart Reason Comments Radiology MRI Specialty Diagnoses / Procedures Referred By Jaycee t Referred To Contact MR IMAGING Diagnoses Astrocytoma brain tumor (HCC) Procedures MRI BRAIN WO/W IVCON MRI BRAIN BRAIN STEM W/O W/CONTRAST MATERIAL Mini Whyte MD [address] [place] [address] Phone: tel: fax: [facility] [place] [id number] Referral ID Status Reason Start Date Expiration Date V isits Requested Visits Authorized [id number] Closed Auto-Generate d Referral 03/04/2024 04/03/2025 1 1 Reason Comments New Patient New [place] Patient Specialty Diagnoses / Procedures Referred By Jaycee t Referred To Contact Neurology Diagnoses Allergy to intravenous contrast media Anaplastic astrocytoma (HCC) Mild cognitive impairment Cognitive decline Occlusion and stenosis of unspecified carotid artery Pathological fracture, other site, initial encounter for fracture Injury of cervical spinal cord, sequela (HCC) Quadriplegia (HCC) Procedures CONSULT TO NEUROLOGY OFFICE/OUTPATIENT NEW HIGH MDM 60 MINUTES Mini Whyte MD [address] [place] [id number] Phone: tel: fax: [facility] [address] [place] [address] Phone: tel: Referral ID Status Reason Start Date Expiration Date V isits Requested Visits Authorized [id number] Closed PCP Requested Referral 03/04/2024 03/04/2025 1 1 Reason Comments MARYJANE 4 weeks Reason Comments Established Patient Reason Comments MARYJANE 07/2024 Reason Comments Established Patient Reason Comments [facility] Welcome Letter Mailed Reason Comments Spasticity Specialty Diagnoses / Procedures Referred By Jaycee t Referred To Contact [facility] Diagnoses Spasticity Procedures OFFICE/OUTPATIENT NEW HIGH MDM 60 MINUTES Mini Whyte MD [address] [place] [id number] Phone: tel: fax: [facility] [place] [address] Referral ID Status Reason Start Date Expiration Date V isits Requested Visits Authorized [id number] Closed PCP Requested Referral Auto-Generated Referral 07/31/2024 07/31/2025 1 1 Reason Comments MARYJANE 2-4 weeks Reason Comments MARYJANE 3 months Care Teams (unrecognized sec tion and content) Flight Paramedic Relationship Specialty Start Date End Date Leela Escoto Sarahi DO [address] [place] [address] PCP - General Family Practice 05/26/21 Flight Paramedic Relationship Specialty Start Date End Date Leela Escoto DO [address] [place] [address] PCP - General Family Practice 05/26/21 Flight Paramedic Relationship Specialty Start Date End Date Leela Escoto DO [address] [place] [address] PCP - General Family Practice 05/26/21 Flight Paramedic Relationship Specialty Start Date End Date Leela Escoto DO [address] [place] [address] PCP - General Family Practice 05/26/21 Flight Paramedic Relationship Specialty Start Date End Date Leela Escoto DO [address] [place] [address] PCP - General Family Practice 05/26/21 Flight Paramedic Relationship Specialty Start Date End Date Leela Escoto DO [address] [place] [address] PCP - General Family Medicine 05/26/21 Flight Paramedic Relationship Specialty Start Date End Date Leela Escoto DO [address] [place] [address] PCP - General Family Medicine 05/26/21 Flight Paramedic Relationship Specialty Start Date End Date Leela Escoto DO [address] [place] [address] PCP - General Family Medicine 05/26/21 Flight Paramedic Relationship Specialty Start Date End Date Sheets, Leela Mcclain, DO [address] [place] [address] PCP - General Family Medicine 05/26/21 Flight Paramedic Relationship Specialty Start Date End Date Sheets, Leela Mcclain, DO [address] [place] [address] PCP - General Family Medicine 05/26/21 Flight Paramedic Relationship Specialty Start Date End Date Sheets, Leela Mcclain, DO [address] [place] [address] PCP - General Family Medicine 05/26/21 Flight Paramedic Relationship Specialty Start Date End Date Sheets, Leela Mcclain, DO [address] [place] [address] PCP - General Family Medicine 05/26/21 Flight Paramedic Relationship Specialty Start Date End Date Sheets, Leela Mcclain, DO [address] [place] [address] PCP - General Family Medicine 05/26/21 Flight Paramedic Relationship Specialty Start Date End Date Sheets, Leela Mcclain, DO [address] [place] [address] PCP - General Family Medicine 05/26/21 Flight Paramedic Relationship Specialty Start Date End Date Sheets, Leela Mcclain, DO [address] [place] [address] PCP - General Family Medicine 05/26/21 Flight Paramedic Relationship Specialty Start Date End Date Sheets, Leela Mcclain, DO [address] [place] [address] PCP - General Family Medicine 05/26/21 Flight Paramedic Relationship Specialty Start Date End Date Sheets, Leela Mcclain, DO [address] [place] [address] PCP - General Family Medicine 05/26/21 Flight Paramedic Relationship Specialty Start Date End Date Leela Escoto DO [address] [place] [address] PCP - General Family Medicine 05/26/21 Flight Paramedic Relationship Specialty Start Date End Date Leela Escoto DO [address] [place] [address] PCP - General Family Medicine 05/26/21 Flight Paramedic Relationship Specialty Start Date End Date Leela Escoto DO [address] [place] [address] PCP - General Family Medicine 05/26/21 Flight Paramedic Relationship Specialty Start Date End Date Leela Escoto DO [address] [place] [address] PCP - General Family Medicine 05/26/21 Flight Paramedic Relationship Specialty Start Date End Date Leela Escoto DO [address] [place] [address] PCP - General Family Medicine 05/26/21 Flight Paramedic Relationship Specialty Start Date End Date Leela Escoto DO [address] [place] [address] PCP - General Family Medicine 05/26/21 Flight Paramedic Relationship Specialty Start Date End Date Leela Escoto DO [address] [place] [address] PCP - General Family Medicine 05/26/21 Flight Paramedic Relationship Specialty Start Date End Date Leela Escoto DO [address] [place] [address] PCP - General Family Medicine 05/26/21 Flight Paramedic Relationship Specialty Start Date End Date Leela Escoto DO [address] [place] [address] PCP - General Family Medicine 05/26/21 Flight Paramedic Relationship Specialty Start Date End Date Leela Escoto DO [address] [place] [address] PCP - General Family Medicine 05/26/21 Flight Paramedic Relationship Specialty Start Date End Date Leela Escoto DO [address] [place] [address] PCP - General Family Medicine 05/26/21 Flight Paramedic Relationship Specialty Start Date End Date Leela Escoto DO [address] [place] [address] PCP - General Family Medicine 05/26/21 Flight Paramedic Relationship Specialty Start Date End Date Leela Escoto DO [address] [place] [address] PCP - General Family Medicine 05/26/21 Flight Paramedic Relationship Specialty Start Date End Date Leela Escoto DO [address] [place] [address] PCP - General Family Medicine 05/26/21 Flight Paramedic Relationship Specialty Start Date End Date Leela Escoto DO [address] [place] [address] PCP - General Family Medicine 05/26/21 Flight Paramedic Relationship Specialty Start Date End Date Leela Escoto DO [address] [place] [address] PCP - General Family Medicine 05/26/21 Flight Paramedic Relationship Specialty Start Date End Date Leela Escoto DO [address] [place] [address] PCP - General Family Medicine 05/26/21 Flight Paramedic Relationship Specialty Start Date End Date Leela Escoto DO [address] [place] [address] PCP - General Family Medicine 05/26/21 Flight Paramedic Relationship Specialty Start Date End Date Leela Escoto DO [address] [place] [address] PCP - General Family Medicine 05/26/21 Flight Paramedic Relationship Specialty Start Date End Date Leela Escoto DO [address] [place] [address] PCP - General Family Medicine 05/26/21 Flight Paramedic Relationship Specialty Start Date End Date Leela Escoto DO [address] [place] [address] PCP - General Family Medicine 05/26/21 Flight Paramedic Relationship Specialty Start Date End Date Leela Escoto DO [address] [place] [address] PCP - General Family Medicine 05/26/21 Flight Paramedic Relationship Specialty Start Date End Date Leela Escoto DO [address] [place] [address] PCP - General Family Medicine 05/26/21 Flight Paramedic Relationship Specialty Start Date End Date Jevon Leela Mcclain DO [address] [place] [address] PCP - General Family Medicine 05/26/21 Flight Paramedic Relationship Specialty Start Date End Date Jevon Leela Mcclain DO [address] [facility] [place] [place] [phone] PCP - General Family Medicine 05/26/21 Flight Paramedic Relationship Specialty Start Date End Date Jevon Leela Mcclain DO [address] [facility], [place] [phone] PCP - General Family Medicine 05/26/21 Flight Paramedic Relationship Specialty Start Date End Date Jevon Leela Mcclain DO [address] [facility] [place] [phone] PCP - General Family Medicine 05/26/21 03/23/24 [...] BE BASED ON THE PRIMARY CLINICAL RECORDS. [email or web address] [email or web address] [facility]. provides no warranty or guarantee of the accuracy or completeness of information in this document.
[2024-12-02 09:24] LABS: Hematocrit 33.1 % (37-47); Hemoglobin 10.3 g/dL (12.0-15.0); Immature Granulocytes Count 0.050 X10^3/uL (0.0-0.0); Mean Corp Hgb Conc 31.1 g/dL (32-36); Mean Corpuscular Volume 93.8 fL (81-99); Mean Platelet Vol. 9.5 fl (6.2-12.0); NRBC Flagged by Analyzer 0 % (0-5); Platelet Count 414 K/mm3 (150-450); RBC Distribution Width CV 14.0 % (11.6-14.6); RBC Distribution Width SD 47.4 fl (35.1-43.9); Red Blood Count 3.53 M/mm3 (4.2-5.4); White Blood Count 10.5 K/mm3 (4.4-11.0)
[2024-12-02 09:41] LABS: Anion Gap 9 (5-15); BUN 16 mg/dL (4-19); BUN/Creat Ratio 25.4 RATIO (10-20); Calcium,Total 9.6 mg/dL (7.6-11.0); Carbon Dioxide 26.8 mmol/L (21.0-32.0); Chloride 105 mmol/L (98-108); Glucose 90 mg/dL (70-99); Potassium 4.4 mmol/L (3.3-5.1)
== END ==
LOC: OLS.SW 05:00
PROVIDERS: PCP Internal Medicine; Visit Provider Family Medicine
DX: R41.82 Altered mental status, unspecified (principal); I10 Essential (primary) hypertension; E78.5 Hyperlipidemia, unspecified
CPT/HCPCS: 36415; 80048; 85025

== ENCOUNTER → 2025-01-27 | Outpatient (REF) | payer MEDICARE, MEDICAID, SELFPAY ==
--- OUTSIDE RECORDS SUMMARY | 2025-01-27 04:33 | XMS RPT_ITS | CCD ---
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 Josi Garcia MD Attending Provider Mery Garcia MD, Dr. Prater Referring Provider Mery Garcia MD, Dr. Prater Primary Care Provider MINI Ewing Attending Provider [phone] MINI DUFFY Referring Provider Jose WINTERS, Dr. Prater Attending Provider Mery Cantor MD, Dr. Floyd Attending Provider Silver Cantor MD, Dr. Floyd Referring Provider Silver Garcia MD, Dr. Prater Primary Care Physician Deven Cantor MD, Dr. Floyd Attending Physician Josi Ariza Attending Unavailable Gudla Josi CURRIE Attending Unavailable KYLE RAJAN Referring Unavailable KYLE RAJAN Attending Unavailable Everett Garcia Attending Unavailable Gudla, Josi Primary Care Unavailable Gudla Josi CURRIE Referring Unavailable Gudla Josi CURRIE Attending Unavailable Everett Garcia Attending Unavailable Gudla, Josi Primary Care Unavailable Everett Garcia Attending Unavailable Gudla, Josi Primary Care Unavailable Everett Garcia Attending Unavailable Gudla, Josi Primary Care Unavailable Everett Garcia Attending Unavailable Gudla, Josi Primary Care Unavailable Everett Garcia Referring Unavailable Everett Garcia Attending Unavailable Gudla, Josi Primary Care Unavailable Gudla, Josi Primary Care Unavailable Gudla Josi CURRIE Attending Unavailable KYLE RAJAN Referring Unavailable KYLE RAJAN Attending Unavailable Kentrelldla, Josi Primary Care Unavailable SPEARSMINI VASQUEZ Attending Unavaila ble SPEARS-DUFFYMINI Referring Unavaila ble SPEARS-DUFFYMINI Attending Unavaila ble SPEARS-DUFFYMINI Referring Unavaila ble SPEARS-DUFFY, MINI Referring Unavaila ble SPEARS-DUFFY, MINI Referring Unavaila ble DIOR ANGUIANO Attending Unavailable SPEARS-DUFFYMINI Referring Unavaila ble SELF Referring Unavailable SPEARS-DUFFYMINI Attending Unavaila ble SPEARS-DUFFYMINI ARELLANO Attending Unavaila ble LEELA ESCOTO Primary Care Unavailable SPEARS-DUFFYMINI Referring Unavaila ble SHEETSLEELA Primary Care Unavailable SPEARS-DUFFYMINI Referring Unavaila ble SPEARS-DUFFYMINI Attending Unavaila ble LEELA ESCOTO Primary Care Unavailable BINDU BURT Attending Unavailable SPEARS-DUFFYMINI Referring Unavaila ble SPEARS-DUFFYMINI Referring Unavaila ble SPEARS-DUFFYMINI Referring Unavaila ble LILLIE HORTON Attending Unavailable SPEARS-DUFFYMINI Referring Unavaila ble Allergies Allergy Classification Reported Allergen(s) Allergy Type Date of Onset Reaction(s) Facility (20 sources) Latex; Translations: [LATEX] Drug Allergy 11-05-2015 Other: See Comments [facility] (20 sources) Methadone; Translations: [METHADONE] Drug Allergy 11-05-2015 Unknown [facility] (20 sources) Naproxen; Translations: [NAPROXEN] Drug Allergy 11-05-2015 Hives, Itching [facility] (20 sources) Iodinated Contrast Media; Translations: [IODINATED CONTRAST MEDIA] Drug Allergy 11-05-2015 Other: See Comments [facility] Medications Current Medications Medication Drug Class(es) Dates [...] with radiology test) (12 sources) Start: End: 025 inject 1 dose intravenously once [...] Comment on above: Take 1 capsule by [facility] once daily. melatonin 5 mg oral [...] on above: Take 1 capsule by mo [facility] once daily. riboflavin 400 mg [...] Active Start: 01-01-2024 take 1 tablet by juve once daily sertraline (ZOLOFT) 25 mg tablet [...] above: Take 1 tablet by juve th w MEALS. diphenhydrAMINE hydrochloride 50 mg [...] vaginally tw ice a week. estrogens, conjugated (retirement) 0.625 mg/ml vaginal cream (20 sources) Estrogen Start: 3 End: conjugated estrogens (PREMARIN) vaginal cream Indications: Atrophic [...] Comment on above: Take 1 tablet by [facility] once daily. Multivitamin capsule (20 sources) [...] Comment on above: Take 1 capsule by [facility] once daily. nitrofurantoin, macrocrystals 25 mg / nitrofurantoin, monohydrate 75 mg oral capsule (3 sources) Nitrofuran Antibacterial Start: End: take 1 capsule by mouth twice daily nitrofurantoin monohydrate and macrocrystal (MACROBID) 100 mg capsule Take 1 capsule by mouth twice daily for 7 days. 14 capsule 0 03/20/2022 03/27/2022 Comment on above: Take 1 capsule by [facility] twice daily for 7 days. 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] Episodic Other [...] source) Cramp and spasm; Translations: [Spasticity] Onset: 11-05-2024 Episodic Other diseases of bladder and urethra [...] cognitive functions and awareness] 01-21-2024 Episodic Other nervous system disorders (1 source) Other symptoms and signs involving cognitive functions and awareness; Translations: [Cognitive decline] Onset: 11-05-2024 Episodic Other non-traumatic joint disorders (20 sources) [...] 11-06-2024 Episodic Residual codes; unclassified (1 source) Altered mental status, unspecified; Translations: [Altered mental status, unspecified] Onset: 01-21-2025 Episodic Spinal cord injury (3 sources) Cervical [...] mobility; Translations: [Abnormal gait] Onset: 12-21-2015 Episodic Pathological fracture (9 sources) Pathological fracture; Translations: [Pathological fracture, other site, initial encounter for fracture] Onset: 05-26-2024 03-04-2024 Episodic Residual codes; unclassified (1 source) Disorientation, unspecified; Translations: [Disorientation, unspecified] Onset: 09-01-2024 Episodic Spinal cord injury (6 sources) Cervical spinal cord injury; Translations: [Unspecified injury at unspecified level of cervical spinal cord, sequela] Onset: 05-26-2024 03-04-2024 Episodic Spondylosis; intervertebral disc disorders; other back problems (20 sources) Chronic neck pain; Translations: [Cervicalgia] Onset: 02-24-2022 Episodic Results Test Name Value Interpretation Reference Range Facility [facility] 2025 OV Office Visit (REHMMN ) DIOR CARVAJAL ([id number]) 1965 F Date Time Provider Department 01/22/25 9:45 AM LILLIE HORTON During your visit today, we recorded the following information about you: Lillie Horton MD 2025 10:46 AM Signed The patient was a no show. Allergies As of Date: 2025 Noted Allergy Reaction ALEVE (NAPROXEN) 11/05/2015 4 - Hives 9 - Itching IODINATED CONTRAST MEDIA 11/05/2015 14 - Other: See Comments Comments: dyspnea LATEX 11/05/2015 14 - Other: See Comments Comments: blisters METHADONE 11/05/2015 16 - Unknown Date Reviewed: 11/06/2024 Reviewed by: Lillie Horton MD - Fully Assessed Reason for Visit: No Show [1558] Primary Visit Diagnosis:NO SHOW Prescriptions as of 2025 - methocarbamol (ROBAXIN) 750 mg tablet Take [...] once daily. 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 LM that Dior did not show for her MRI on 01/15, therefore we will need to cancel her visit with Dr Spears on 01/19 since no MRI to review. I will ask scheduling to reschedule and to contact her with new appointment dates. Per notes, a message was left for daughter with previous appt dates. Gerda Dee, RN, BSN Pleating Supervisor [facility] Allergies As of Date: 01/16/2025 Noted Allergy Reaction ALEVE (NAPROXEN) 11/05/2015 4 - Hives 9 - Itching IODINATED CONTRAST MEDIA 11/05/2015 14 - Other: See Comments Comments: dyspnea LATEX 11/05/2015 14 - Other: See Comments Comments: blisters METHADONE 11/05/2015 16 - Unknown Date Reviewed: 11/06/2024 Reviewed by: Lillie Horton MD - Fully Assessed Reason for Visit: NS for MRI 01/15/25 [Other] Prescriptions as of 01/16/2025 - methocarbamol (ROBAXIN) 750 mg tablet Take [...] once daily. 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 Grief [F43.21] 05/25/2022 Encounter Status:Closed by GERDA DEE on 01/16/25 Normal [facility] Absolute lymphocyte countOrd ered By: Everett Cantor on 12-02-2024 Lymphocytes Auto (Unsp spec) [#/Vol] 2.89 10*3/uL 0.83-4.51 [facility] Absolute neutrophil countOrd ered By: Everett Cantor on 12-02-2024 Neutrophils (Bld) [#/Vol] 6.6 10*3/uL 2.0-7.7 [facility] Anion gap in Serum or Plasma Ordered By: Everett Cantor on 12-02-2024 Anion gap [Moles/Vol] 9 mmol/L 5-15 [facility] Automated blood erythrocyte countOrdered By: Everett Cantor on 12-02-2024 RBC (Bld) [#/Vol] 3.53 10*6/uL Low 4.2-5.4 [facility] Comment on above: Order Comment: 506.1 Performed By: #### M 100.2200, L4.2010 #### [facility] [address] [place], [place], [address] Automated blood hematocrit ( percentage)Ordered By: Everett Cantor on 12-02-2024 Hematocrit (Bld) [Volume fraction] 33.1 % Low 37-47 [facility] Comment on above: Order Comment: 506.1 Performed By: #### M 100.2200, L4 #### [facility] [address] [place], [address] Automated lymphocyte count a s percentage of total leukocytesOrdered By: Everett Cantor on 12-02-2024 Lymphocytes/100 WBC Auto (Unsp spec) 27.6 % 19-41 [facility] BUN/creatinine ratioOrdered By: Everett Cantor on 12-02-2024 Urea nitrogen/Creatinine [Mass ratio] 25.4 mg/mg High 10-20 [facility] Basic Metabolic Profile (BMP )on 12-02-2024 BUN/CRE 25.4 RATIO High 10-20 [facility] Comment on above: Order Comment: 506.1 Performed By: #### M 100.2199, .2010 #### [facility] [address] [place], [address] GAP 9 Normal 5-15 [facility] Comment on above: Order Comment: 506.1 Performed By: #### M 100.2199, L4.2010 #### [facility] [address] [place], [address] Potassium [Moles/Vol] 4.4 mmol/L Normal 3.3-5.1 [facility] Comment on above: Order Comment: 506.1 Performed By: #### M , L4.2010 #### [facility] [address] [place], [address] Basophil percentageOrdered B y: Everett Cantor on 12-02-2024 Basophils/100 WBC (Bld) 0.6 % Normal 0-1 [facility] Comment on above: Order Comment: 506.1 Performed By: #### M , L4.2010 #### [facility] [address] [place], [address] CBC W/Diff, Automatedon 09-0 Absolute Lymph 2.89 X10 3/uL Normal 0.83-4.51 [facility] Comment on above: Order Comment: 506.1 Performed By: #### M .2199, L4 #### [facility] [address] [place], [address] Absolute Neut 6.6 X10 3/uL Normal 2.0-7.7 [facility] Comment on above: Order Comment: 506.1 Performed By: #### M 100.2199, L4.2010 #### [facility] [address] [place], [address] IG% 0.500 Normal 0.0-0.9 [facility] Comment on above: Order Comment: 506.1 Result Comment: IG% - Immature Granulocytes (promyelocytes, myelocytes and metamyelocytes) > 1% indicates that a LEFT SHIFT is Present. Performed By: #### M 100.2200, L4.2010 #### [facility] [address] [place], [address] Lymphocytes/100 WBC (Bld) 27.6 % Normal 19-41 [facility] Comment on above: Order Comment: 506.1 Performed By: #### M 100.2199, L4.2010 #### [facility] [address] [place], [address] Nucleated RBC (Bld) [#/Vol] 0 10*3/uL Normal 0-5 [facility] Comment on above: Order Comment: 506.1 Performed By: #### M .2199, L4.2010 #### [facility] [address] [place], [address] RDW SD 47.4 fl High 35.1-43.9 [facility] Comment on above: Order Comment: 506.1 Performed By: #### M .2199, L4.2010 #### [facility] [address] [place], [address] Carbon dioxide, total [Moles /volume] in Central venous bloodOrdered By: Everett Cantor on 12-02-2024 CO2 [Moles/Vol] 26.8 mmol/L Normal 21.0-32.0 [facility] Comment on above: Order Comment: 506.1 Performed By: #### M 100.2199, L4.2010 #### [facility] [address] [place], [address] Chloride assayOrdered By: Caesar Cantor on 12-02-2024 Chloride [Moles/Vol] 105 mmol/L Normal 98-108 [facility] Comment on above: Order Comment: 506.1 Performed By: #### M 100.2200, L4.2010 #### [facility] [address] [place], [address] Eosinophil percentageOrdered By: Everett Cantor on 12-02-2024 Eosinophils/100 WBC (Bld) 1.6 % Normal 0-5 [facility] Comment on above: Order Comment: 506.1 Performed By: #### M 100.2200, L4.2010 #### [facility] [address] [place], [address] Erythrocyte distribution wid th ratioOrdered By: Everett Cantor on 12-02-2024 Erythrocyte distribution width (RBC) [Ratio] 14.0 % Normal 11.6-14.6 [facility] Comment on above: Order Comment: 506.1 Performed By: #### M 100.0, L4.2010 #### [facility] [address] [place], [address] Erythrocyte distribution wid th standard deviationOrdered By: Everett Cantor on 12-02-2024 Erythrocyte distribution width (RBC) [Ratio] 47.4 fl High 35.1-43.9 [facility] Glomerular filtration rate ( GFR) estimation/1.73 sq m using serum, plasma, or whole bOrdered By: Everett Cantor on 12-02-2024 GFR/1.73 sq M.predicted among non-blacks MDRD (S/P/Bld) [Vol rate/Area] 101 mL/min/{1.73_m2} Normal >60 [facility] Comment on above: mL/min/1.73m2 CKD-EP I Creatinine Equation (2020) Order Comment: 506.1 Result Comment: mL/m in/1.73m2 CKD-EPI Creatinine Equation (2020) Performed By: #### M 100.2200, L4.2010 #### [facility] [address] [place], [address] Hemoglobin measurementOrdere d By: Everett Cantor on 12-02-2024 Hemoglobin (Bld) [Mass/Vol] 10.3 g/dL Low 12.0-15.0 [facility] Comment on above: Order Comment: 506.1 Performed By: #### M 100.0, L4.2010 #### [facility] [address] [place], [address] Immature granulocytes/100 WB C Auto (Bld)Ordered By: Everett Cantor on 12-02-2024 Immature granulocytes/100 WBC (Bld) 0.500 % 0.0-0.9 [facility] Comment on above: IG% - Immature Granu locytes (promyelocytes, myelocytes and metamyelocytes) > 1% indicates that a LEFT SHIFT is Present. MCV (mean corpuscular volume ) determinationOrdered By: Everett Cantor on 12-02-2024 MCV (RBC) [Entitic vol] 93.8 fL Normal 81-99 [facility] Comment on above: Order Comment: 506.1 Performed By: #### M , .2010 #### [facility] [address] [place], [address] Mean corpuscular hemoglobin (MCH) determinationOrdered By: Everett Cantor on 12-02-2024 MCH (RBC) [Entitic mass] 29.2 pg Normal 27.0-32.0 [facility] Comment on above: Order Comment: 506.1 Performed By: #### M 100.2199, L4.2010 #### [facility] [address] [place], [address] Mean corpuscular hemoglobin concentration (MCHC) determinationOrdered By: Everett Cantor on 12-02-2024 MCHC (RBC) [Mass/Vol] 31.1 g/dL Low 32-36 [facility] Comment on above: Order Comment: 506.1 Performed By: #### M 100.0, L4.2010 #### [facility] [address] [place], [address] Mean platelet volume determi nationOrdered By: Everett Cantor on 12-02-2024 Platelet mean volume (Bld) [Entitic vol] 9.5 fL Normal 6.2-12.0 [facility] Comment on above: Order Comment: 506.1 Performed By: #### M 100.2200, L400.2010 #### [facility] [address] [place], [address] Monocyte percentageOrdered B y: Everett Cantor on 12-02-2024 Monocytes/100 WBC (Bld) 7.0 % Normal 0-10 [facility] Comment on above: Order Comment: 506.1 Performed By: #### M 100.2200, L400.2010 #### [facility] [address] [place], [address] Neutrophil percentageOrdered By: Everett Cantor on 12-02-2024 Neutrophils/100 WBC (Bld) 62.7 % Normal 47-70 [facility] Comment on above: Order Comment: 506.1 Performed By: #### M 100.0, L4.2010 #### [facility] [address] [place], [address] Nucleated red blood cell per centageOrdered By: Everett Cantor on 12-02-2024 Nucleated RBC/100 WBC (Bld) [Ratio] 0 % 0-5 [facility] Platelet countOrdered By: Caesar Cantor on 12-02-2024 Platelets (Bld) [#/Vol] 414 10*3/uL Normal 150-450 [facility] Comment on above: Order Comment: 506.1 Performed By: #### M 100.2200, L4.2010 #### [facility] [address] [place], [address] Potassium measurement (mass/ volume)Ordered By: Everett Cantor on 12-02-2024 Potassium (Unsp spec) [Mass/Vol] 4.4 mmol/L 3.3-5.1 [facility] Serum creatinine measurement (mass/volume)Ordered By: Everett Cantor on 12-02-2024 Creatinine [Mass/Vol] 0.63 mg/dL Low 0.70-1.20 [facility] Comment on above: Order Comment: 506.1 Performed By: #### M 100.0, .2010 #### [facility] [address] [place], [address] Serum glucose measurement (m ass/volume)Ordered By: Everett Cantor on 12-02-2024 Glucose [Mass/Vol] 90 mg/dL Normal 70-99 [facility] Comment on above: Order Comment: 506.1 Performed By: #### M 100.2199, #### [facility] [address] [place], [address] Serum or plasma calcium riky urement (mass/volume)Ordered By: Everett Cantor on 12-02-2024 Calcium [Mass/Vol] 9.6 mg/dL Normal 7.6-11.0 [facility] Comment on above: Order Comment: 506.1 Performed By: #### M 100.2199, L4 #### [facility] [address] [place], [address] Serum or plasma urea nitroge n measurement (mass/volume)Ordered By: Everett Cantor on 12-02-2024 Urea nitrogen [Mass/Vol] 16 mg/dL Normal 4-19 [facility] Comment on above: Order Comment: 506.1 Performed By: #### M 100.2199, L4 #### [facility] [address] [place], [address] Sodium levelOrdered By: Luis Cantor on 12-02-2024 Sodium [Moles/Vol] 140 mmol/L Normal 133-145 [facility] Comment on above: Order Comment: 506.1 Performed By: #### M 100.2199, L4 #### [facility] [address] [place], [address] White blood cell (WBC) count Ordered By: Everett Cantor on 12-02-2024 WBC (Bld) [#/Vol] 10.5 10*3/uL Normal 4.4-11.0 [facility] Comment on above: Order Comment: 506.1 Performed By: #### M , L4 #### [facility] [address] [place], [place], [address] Urine Cultureon 11-22-2024 URC Escherichia coli [place] Count >100,000 Proteus mirabilis Proteus mirabilis Escherichia [...] TMP SMX Islt MIRTHA <=20 S Normal [facility] Comment on above: Performed By: #### M , L4 #### [facility] [address] [place], [place], [address] Urinalysis, Routine (Dipstic k)on 11-20-2024 BILIRUBIN URINE Negative Normal Negative [facility] Comment on above: Order Comment: CLEAN CATCH Performed By: #### M 100, L4 #### [facility] [address] [place], [place], [id number] Clarity (U) Turbid Normal Clear [facility] Comment on above: Order Comment: CLEAN CATCH Performed By: #### M , L4.2010 #### [facility] [address] [place], [address] Color (U) Yellow Normal Yellow [facility] Comment on above: Order Comment: CLEAN CATCH Performed By: #### M , L4 #### [facility] [address] [place], [address] GLUCOSE, UR Normal Normal Normal [facility] Comment on above: Order Comment: CLEAN CATCH Performed By: #### M , L4 #### [facility] [address] [place], [address] KETONE UR Negative Normal Negative [facility] Comment on above: Order Comment: CLEAN CATCH Performed By: #### M , #### [facility] [address] [place], [address] LEUK ESTERASE 500 /ul Abnormal Negative [facility] Comment on above: Order Comment: CLEAN CATCH Performed By: #### M L4 #### [facility] [address] [place], [address] Nitrite Ql (U) Negative Normal Negative [facility] Comment on above: Order Comment: CLEAN CATCH Performed By: #### M , L4 #### [facility] [address] [place], [address] OCCULT BLOOD-UR Negative Normal Negative [facility] Comment on above: Order Comment: CLEAN CATCH Performed By: #### M L4 #### [facility] [address] [place], [address] pH UR 8.0 Normal 5.0 - 8.0 [facility] Comment on above: Order Comment: CLEAN CATCH Performed By: #### M 0, L400.2010 #### [facility] [address] [place], [address] PROT DIPSTX 500 mg/dl Abnormal Negative [facility] Comment on above: Order Comment: CLEAN CATCH Performed By: #### M 100.2200, L400.2010 #### [facility] [address] [place], [address] SP.GR. DIPSTX 1.010 Normal 1.002-1.030 [facility] Comment on above: Order Comment: CLEAN CATCH Performed By: #### M 100.0, L400.2010 #### [facility] [address] [place], [address] UROBILI Normal Normal Normal [facility] Comment on above: Order Comment: CLEAN CATCH Performed By: #### M 100.0, L4 #### [facility] [address] [place], [address] Bilirubin Test strip Ql (U)O rdered By: Everett Cantor on 11-19-2024 Bilirubin Ql (U) Negative Negative [facility] Ketones Test strip Ql (U)Ord ered By: Everett Cantor on 11-19-2024 Ketones Ql (U) Negative Negative [facility] Nitrite Test strip Ql (U)Ord ered By: Everett Cantor on 11-19-2024 Nitrite Ql (U) Negative Negative [facility] Protein Test strip Ql (U)Ord ered By: Everett Cantor on 11-19-2024 Protein Ql (U) 500 mg/dl High Negative [facility] Urine clarityOrdered By: Alea Cantor on 11-19-2024 Clarity (U) Turbid Clear [facility] Urine color determinationOrd ered By: Everett Cantor on 11-19-2024 Color (U) Yellow Yellow [facility] Urine cultureOrdered By: Alea Cantor on 11-19-2024 Bacteria identified Cx Nom (U) Escherichia coli Abnormal [facility] Bacteria identified Cx Nom (U) Proteus mirabilis Abnormal [facility] Urine glucose detectionOrder ed By: Everett Cantor on 11-19-2024 Glucose Ql (U) Normal mg/dl Normal [facility] Urine leukocyte esterase det ection by dipstickOrdered By: Everett Cantor on 11-19-2024 Leukocyte esterase Test strip Ql (U) 500 /ul High Negative [facility] Urine pHOrdered By: Everett rodney on 11-19-2024 pH (U) 8.0 [pH] 5.0 - 8.0 [facility] Urine specific gravity measu rementOrdered By: Everett Cantor on 11-19-2024 Specific gravity (U) [Rel density] 1.010 1.002-1.030 [facility] Urine urobilinogen measureme ntOrdered By: Everett Cantor on 11-19-2024 Urobilinogen Ql (U) Normal mg/dl Normal [facility] Anion gap in Serum or Plasma Ordered By: Everett Cantor on 11-18-2024 Anion gap [Moles/Vol] 11 mmol/L 5-15 [facility] BUN/creatinine ratioOrdered By: Everett Cantor on 11-18-2024 Urea nitrogen/Creatinine [Mass ratio] 35.1 mg/mg High 10-20 [facility] Basic Metabolic Profile (BMP )on 11-18-2024 BUN/CRE 35.1 [address] [facility] Comment on above: Order Comment: 506.1 Performed By: #### M , #### [facility] [address] [place], [address] Calcium [Mass/Vol] 9.6 mg/dL Normal 7.6-11.0 [facility] Comment on above: Order Comment: 506.1 Performed By: #### M 100, #### [facility] [address] [place], [address] Chloride [Moles/Vol] 109 mmol/L High 98-108 [facility] Comment on above: Order Comment: 506.1 Performed By: #### M , #### [facility] [address] [place], [address] CO2 [Moles/Vol] 26.3 mmol/L Normal 21.0-32.0 [facility] Comment on above: Order Comment: 506.1 Performed By: #### M , #### [facility] [address] [place], [address] Creatinine [Mass/Vol] 0.67 mg/dL Low 0.70-1.20 [facility] Comment on above: Order Comment: 506.1 Performed By: #### M , #### [facility] [address] [place], [address] GAP 11 Normal 5-15 [facility] Comment on above: Order Comment: 506.1 Performed By: #### M , #### [facility] [address] [place], [address] GFR/1.73 sq M.predicted among non-blacks MDRD (S/P/Bld) [Vol rate/Area] 100 mL/min/{1.73_m2} Normal >60 [facility] Comment on above: Order Comment: 506.1 Result Comment: mL/m in/1.73m2 CKD-EPI Creatinine Equation (2020) Performed By: #### M , #### [facility] [address] [place], [address] Glucose [Mass/Vol] 115 mg/dL High 70-99 [facility] Comment on above: Order Comment: 506.1 Performed By: #### M , L4 #### [facility] [address] [place], [address] Potassium [Moles/Vol] 3.4 mmol/L Normal 3.3-5.1 [facility] Comment on above: Order Comment: 506.1 Performed By: #### M , L4.2010 #### [facility] [address] [place], [address] Sodium [Moles/Vol] 145 mmol/L Normal 133-145 [facility] Comment on above: Order Comment: 506.1 Performed By: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 on 04/01/24 Normal [facility] CNPNon 03-31-2024 CNPN Telephone (NSCAMN) DIOR CARVAJAL ([id number]) 1965 F Date Time Provider Department 03/31/24 MINI WHYTE NSCAMN During your visit today, we recorded the following information about you: India Chi RN 03/31/2024 3:32 PM Signed Called and spoke with nurse Barboza at [facility], they were unaware of the appointments this [...] MA - Fully Assessed 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 [place], [place], [id number] Ferritin measurementOrdered By: Josi Garcia on 03-31-2024 Ferritin [Mass/Vol] 16 ng/mL 8-252 [facility] Ironon 03-31-2024 Iron [Mass/Vol] 35 ug/dL Low 50-170 [facility] Comment on above: Order Comment: CLEAN CATCH Performed By: #### M 100.2200, L400.2010 #### [facility] [address] [place], [place], [id number] Iron (Unsp spec) [Mass/Mass] Ordered By: Josi Garcia on 03-31-2024 Iron [Mass/Vol] 35 ug/dL Low 50-170 [facility] [id number]-Tlgbkeq DOrdered By: Tex Garcia on 03-28-2024 Vitamin D 25-Hydroxy 26.4 ng/mL [facility] Comment on above: Vitamin D 25(OH) Sta tus Range Deficiency <20 ng/mL (50nmol/L) Insufficiency 20 - 30 ng/mL (50 - 75 nmol/L) Sufficiency 30 - 100 ng/mL (75 - 250 nmol/L) Toxicity >100 ng/mL (>250 nmol/L) Vitamin B12 measurementOrder ed By: Josi Garcia on 03-28-2024 Cobalamin (Vitamin B12) [Mass/Vol] 290 pg/mL Normal 211-911 [facility] Comment on above: Order Comment: CLEAN CATCH Performed By: #### M 100.2200, L4 #### [facility] [address] [place], [address] Vitamin D,25 Hydroxyon 03-28 Vitamin D 25-OH 26.4 ng/mL Normal [facility] Comment on above: Order Comment: CLEAN CATCH Result Comment: Kemi min D 25(OH) Status Range Deficiency <20 ng/mL (50nmol/L) Insufficiency 20 - 30 ng/mL (50 - 75 nmol/L) Sufficiency 30 - 100 ng/mL (75 - 250 nmol/L) Toxicity >100 ng/mL (>250 nmol/L) Performed By: #### M 100.2199, L4 #### [facility] [address] [place], [address] Absolute neutrophil countOrd ered By: Josi Garcia on 03-27-2024 Neutrophils (Bld) [#/Vol] 4.8 10*3/uL 2.0-7.7 [facility] Basic Metabolic Profile (BMP )on 03-27-2024 BUN/CRE 23.0 RATIO High 10-20 [facility] Comment on above: Order Comment: 510-1 Performed By: #### L 500.4100, L100.0100, L500.2500, L501.5200, L501.9520, L501.9985 #### [facility] [address] [place], [address] CA,Total 9.6 mg/dL Normal 8.5-10.1 [facility] Comment on above: Order Comment: 510-1 Performed By: #### L 500.4100, L100.0100, L500.2500, L501.5200, L501.9520, L501.9985 #### [facility] [address] [place], [address] Chloride [Moles/Vol] 107 mmol/L Normal 98-107 [facility] Comment on above: Order Comment: 510-1 Performed By: #### L 500.4100, L100.0100, L500.2500, L501.5200, L501.9520, L501.9985 #### [facility] [address] [place], [address] CO2 [Moles/Vol] 30.0 mmol/L Normal 21.0-32.0 [facility] Comment on above: Order Comment: 510-1 Performed By: #### L 500.4100, L100.0100, L500.2500, L501.5200, L501.9520, L501.9985 #### [facility] [address] [place], [address] Creatinine [Mass/Vol] 0.48 mg/dL Low 0.55-1.02 [facility] Comment on above: Order Comment: 510- Result Comment: The validity of the calculated GFR GFRAA in patients over 70 years has not been determined. Clinical correlation is essential. Performed By: #### L 500.4100, L100.0100, L500.2500, L501.5200, L501.9520, L501.9985 #### [facility] [address] [place], [address] EST GFR - AA 170 mL/min Normal >60 [facility] Comment on above: Order Comment: 510-1 Result Comment: Afri can Tanzanian GFR Calc Performed By: #### L 500.4100, L100.0100, L500.2500, L501.5200, L501.9520, L501.9985 #### [facility] [address] [place], [address] GAP 4 Low 5-15 [facility] Comment on above: Order Comment: 510-1 Performed By: #### L 500.4100, L100.0100, L500.2500, L501.5200, L501.9520, L501.9985 #### [facility] [address] [place], [address] GFR/1.73 sq M.predicted among non-blacks MDRD (S/P/Bld) [Vol rate/Area] 141 mL/min/{1.73_m2} Normal >60 [facility] Comment on above: Order Comment: 510-1 Result Comment: Non- GFR Calc Performed By: #### L 500.4100, L100.0100, L500.2500, L501.5200, L501.9520, L501.9985 #### [facility] [address] [place], [address] Glucose [Mass/Vol] 96 mg/dL Normal 74-106 [facility] Comment on above: Order Comment: 510-1 Performed By: #### L 500.4100, L100.0100, L500.2500, L501.5200, L501.9520, L501.9985 #### [facility] [address] [place], [address] Potassium [Moles/Vol] 3.8 mmol/L Normal 3.5-5.1 [facility] Comment on above: Order Comment: 510-1 Performed By: #### L 500.4100, L100.0100, L500.2500, L501.5200, L501.9520, L501.9985 #### [facility] [address] [place], [address] Sodium [Moles/Vol] 141 mmol/L Normal 136-145 [facility] [place] [facility] Comment on above: Order Comment: 510-1 Performed By: #### L 500.4100, L100.0100, L500.2500, L501.5200, L501.9520, L501.9985 #### [facility] [address] [place], [address] Urea nitrogen [Mass/Vol] 11 mg/dL Normal 7-18 [facility] Comment on above: Order Comment: 510-1 Performed By: #### L 500.4100, L100.0100, L500.2500, L501.5200, L501.9520, L501.9985 #### [facility] [address] [place], [address] Basophil percentageOrdered B y: Josi Pfeifferdonaldojoey on 03-27-2024 Basophils/100 WBC (Bld) 0.5 % 0-1 [facility] Blood urea nitrogen (BUN)/cr eatinine ratioOrdered By: Josi Pfeifferdonaldojoey on 03-27-2024 Urea nitrogen/Creatinine [Mass ratio] 23.0 mg/mg High 10-20 [facility] CBC W/Diff, Automatedon Absolute Lymph 2.32 X10 3/uL Normal 0.83-4.51 [facility] Comment on above: Order Comment: 510-1 Performed By: #### L 500.4100, L100.0100, L500.2500, L501.5200, L501.9520, L501.9985 #### [facility] [address] [place], [address] Absolute Neut 4.8 X10 3/uL Normal 2.0-7.7 [facility] Comment on above: Order Comment: 510-1 Performed By: #### L 500.4100, L100.0100, L500.2500, L501.5200, L501.9520, L501.9985 #### [facility] [address] [place], [address] Basophils/100 WBC (Bld) 0.5 % Normal 0-1 [facility] Comment on above: Order Comment: 510-1 Performed By: #### L 500.4100, L100.0100, L500.2500, L501.5200, L501.9520, L501.9985 #### [facility] [address] [place], [address] Eosinophils/100 WBC (Bld) 1.7 % Normal 0-5 [facility] Comment on above: Order Comment: 510-1 Performed By: #### L 500.4100, L100.0100, L500.2500, L501.5200, L501.9520, L501.9985 #### [facility] [address] [place], [address] Erythrocyte distribution width (RBC) [Ratio] 13.1 % Normal 11.6-14.6 [facility] Comment on above: Order Comment: 510-1 Performed By: #### L 500.4100, L100.0100, L500.2500, L501.5200, L501.9520, L501.9985 #### [facility] [address] [place], [address] Hematocrit (Bld) [Volume fraction] 34.1 % Low 37-47 [facility] Comment on above: Order Comment: 510-1 Performed By: #### L 500.4100, L100.0100, L500.2500, L501.5200, L501.9520, L501.9985 #### [facility] [address] [place], [address] Hemoglobin (Bld) [Mass/Vol] 10.6 g/dL Low 12.0-15.0 [facility] Comment on above: Order Comment: 510-1 Performed By: #### L 500.4100, L100.0100, L500.2500, L501.5200, L501.9520, L501.9985 #### [facility] [address] [place], [address] IG% 0.400 Normal 0.0-0.9 [facility] Comment on above: Order Comment: 510-1 Result Comment: IG% - Immature Granulocytes (promyelocytes, myelocytes and metamyelocytes) > 1% indicates that a LEFT SHIFT is Present. Performed By: #### L 500.4100, L100.0100, L500.2500, L501.5200, L501.9520, L501.9985 #### [facility] [address] [place], [address] Lymphocytes/100 WBC (Bld) 29.8 % Normal 19-41 [facility] Comment on above: Order Comment: 510-1 Performed By: #### L 500.4100, L100.0100, L500.2500, L501.5200, L501.9520, L501.9985 #### [facility] [address] [place], [address] MCH (RBC) [Entitic mass] 28.7 pg Normal 27.0-32.0 [facility] Comment on above: Order Comment: 510-1 Performed By: #### L 500.4100, L100.0100, L500.2500, L501.5200, L501.9520, L501.9985 #### [facility] [address] [place], [address] MCHC (RBC) [Mass/Vol] 31.1 g/dL Low 32-36 [facility] Comment on above: Order Comment: 510-1 Performed By: #### L 500.4100, L100.0100, L500.2500, L501.5200, L501.9520, L501.9985 #### [facility] [address] [place], [address] MCV (RBC) [Entitic vol] 92.4 fL Normal 81-99 [facility] Comment on above: Order Comment: 510-1 Performed By: #### L 500.4100, L100.0100, L500.2500, L501.5200, L501.9520, L501.9985 #### [facility] [address] [place], [address] Monocytes/100 WBC (Bld) 6.3 % Normal 0-10 [facility] Comment on above: Order Comment: 510-1 Performed By: #### L 500.4100, L100.0100, L500.2500, L501.5200, L501.9520, L501.9985 #### [facility] [address] [place], [address] Neutrophils/100 WBC (Bld) 61.3 % Normal 47-70 [facility] Comment on above: Order Comment: 510-1 Performed By: #### L 500.4100, L100.0100, L500.2500, L501.5200, L501.9520, L501.9985 #### [facility] [address] [place], [address] Nucleated RBC (Bld) [#/Vol] 0 10*3/uL Normal 0-5 [facility] Comment on above: Order Comment: 510-1 Performed By: #### L 500.4100, L100.0100, L500.2500, L501.5200, L501.9520, L501.9985 #### [facility] [address] [place], [address] Platelet mean volume (Bld) [Entitic vol] 9.6 fL Normal 6.2-12.0 [facility] Comment on above: Order Comment: 510-1 Performed By: #### L 500.4100, L100.0100, L500.2500, L501.5200, L501.9520, L501.9985 #### [facility] [address] [place], [address] Platelets (Bld) [#/Vol] 283 10*3/uL Normal 150-450 [facility] Comment on above: Order Comment: 510-1 Performed By: #### L 500.4100, L100.0100, L500.2500, L501.5200, L501.9520, L501.9985 #### [facility] [address] [place], [address] RBC (Bld) [#/Vol] 3.69 10*6/uL Low 4.2-5.4 [facility] Comment on above: Order Comment: 510-1 Performed By: #### L 500.4100, L100.0100, L500.2500, L501.5200, L501.9520, L501.9985 #### [facility] [address] [place], [address] RDW SD 44.1 fl High 35.1-43.9 [facility] Comment on above: Order Comment: 510-1 Performed By: #### L 500.4100, L100.0100, L500.2500, L501.5200, L501.9520, L501.9985 #### [facility] [address] [place], [address] WBC (Bld) [#/Vol] 7.8 10*3/uL Normal 4.4-11.0 [facility] Comment on above: Order Comment: 510-1 Performed By: #### L 500.4100, L100.0100, L500.2500, L501.5200, L501.9520, L501.9985 #### [facility] [address] [place], [address] Carbon dioxide measurementOr dered By: Josi Garcia on 03-27-2024 CO2 [Moles/Vol] 30.0 mmol/L 21.0-32.0 [facility] Chloride measurementOrdered By: Josi Garcia on 03-27-2024 Chloride [Moles/Vol] 107 mmol/L 98-107 [facility] Eosinophil percentageOrdered By: Josi Garcia on 03-27-2024 Eosinophils/100 WBC (Bld) 1.7 % 0-5 [facility] Erythrocyte distribution wid th ratioOrdered By: Josi Garcia on 03-27-2024 Erythrocyte distribution width (RBC) [Ratio] 13.1 % 11.6-14.6 [facility] Erythrocyte distribution wid th standard deviationOrdered By: Josi Garcia on 03-27-2024 Erythrocyte distribution width (RBC) [Entitic vol] 44.1 fL High 35.1-43.9 [facility] Estimated glomerular filtrat ion rate (GFR) AmericanOrdered By: Josi Garcia on 03-27-2024 Estimated GFR (MDRD) Amer 170 mL/min >60 [facility] Comment on above: GFR Calc Glomerular filtration rate ( GFR) estimationOrdered By: Josi Garcia on 03-27-2024 Estimated GFR (MDRD) Non-Af Amer 141 mL/min >60 [facility] Comment on above: Non- GFR Calc Glucose measurementOrdered B y: Josi Garcia on 03-27-2024 Glucose [Mass/Vol] 96 mg/dL 74-106 [facility] Hematocrit Auto (Bld) [Volum e fraction]Ordered By: Josi Garcia on 03-27-2024 Hematocrit (Bld) [Volume fraction] 34.1 % Low 37-47 [facility] Hemoglobin A1con 03-27-2024 HbA1c (Bld) [Mass fraction] 5.4 % Normal 3.8-5.6 [facility] Comment on above: Order Comment: CLEAN CATCH Result Comment: Norm al < 5.7 % Prediabetic 5.7 - 6.4 % Diabetic >or= 6.5 % Please note range changes. Performed By: #### M 100.2200, L400.2010 #### [facility] [address] [place] [address]. [place], [place], [id number] Hemoglobin A1c percentageOrd ered By: Josi Garcia on 03-27-2024 HbA1c (Bld) [Mass fraction] 5.4 % 3.8-5.6 [facility] Comment on above: Normal < 5.7 % Predi abetic 5.7 - 6.4 % Diabetic >or= 6.5 % Please note range changes. Hemoglobin measurementOrdere d By: Josi Garcia on 03-27-2024 Hemoglobin (Bld) [Mass/Vol] 10.6 g/dL Low 12.0-15.0 [facility] High density lipoprotein (HD L) measurementOrdered By: Josi Garcia on 03-27-2024 Cholesterol in HDL [Mass/Vol] 61 mg/dL >40 [facility] Comment on above: The drugs N-Acetylcy steine and Metamizole may falsely depress this assay. Reference Range HDL <40 mg/dL Low HDL Cholesterol HDL >or= 60 mg/dL High HDL Cholesterol Immature granulocytes/100 WB C Auto (Bld)Ordered By: Josi Garcia on 03-27-2024 Immature granulocytes/100 WBC (Bld) 0.400 % 0.0-0.9 [facility] Comment on above: IG% - Immature Granu locytes (promyelocytes, myelocytes and metamyelocytes) > 1% indicates that a LEFT SHIFT is Present. Lipid Profileon 03-27-2024 Cholesterol [Mass/Vol] 150 mg/dL Normal 200 [facility] Comment on above: Order Comment: 510-1 Result Comment: <200 mg/dL Desirable 200-240 mg/dL Borderline >240 mg/dL High Risk Performed By: #### L 500.4100, L100.0100, L500.2500, L501.5200, L501.9520, L501.9985 #### [facility] [address] [place], [address] Cholesterol in HDL [Mass/Vol] 61 mg/dL Normal [facility] Comment on above: Order Comment: 510-1 Result Comment: The drugs N-Acetylcysteine and Metamizole may falsely depress this assay. Reference Range HDL <40 mg/dL Low HDL Cholesterol HDL >or= 60 mg/dL High HDL Cholesterol Performed By: #### L 500.4100, L100.0100, L500.2500, L501.5200, L501.9520, L501.9985 #### [facility] [address] [place], [address] Cholesterol in LDL [Mass/Vol] 64 mg/dL Normal 0-130 [facility] Comment on above: Order Comment: 510-1 Performed By: #### L 500.4100, L100.0100, L500.2500, L501.5200, L501.9520, L501.9985 #### [facility] [address] [place], [address] Cholesterol in VLDL [Mass/Vol] 25 mg/dL Normal 5-40 [facility] Comment on above: Order Comment: 510-1 Performed By: #### L 500.4100, L100.0100, L500.2500, L501.5200, L501.9520, L501.9985 #### [facility] [address] [place], [address] Triglyceride [Mass/Vol] 127 mg/dL Normal [facility] Comment on above: Order Comment: 510-1 Result Comment: The drugs N-Acetylcysteine and Metamizole may falsely depress this assay. Serum Triglycerides Reference Interval Normal <150 mg/dL Borderline high 150 - 199 mg/dL High 200 - 499 mg/dL Very High > or = 500 mg/dL Performed By: #### L 500.4100, L100.0100, L500.2500, L501.5200, L501.9520, L501.9985 #### [facility] [address] [place], [address] Low density lipoprotein (LDL ) cholesterol measurementOrdered By: Josi Garcia on 03-27-2024 Cholesterol in LDL [Mass/Vol] 64 mg/dL 0-130 [facility] Lymphocytes Auto (Unsp spec) [#/Vol]Ordered By: Josi Garcia on 03-27-2024 Lymphocytes (Bld) [#/Vol] 2.32 10*3/uL 0.83-4.51 [facility] Lymphocytes/100 WBC Auto (Un sp spec)Ordered By: Josi Garcia on 03-27-2024 Lymphocytes/100 WBC (Bld) 29.8 % 19-41 [facility] MCV (mean corpuscular volume ) determinationOrdered By: Josi Garcia on 03-27-2024 MCV (RBC) [Entitic vol] 92.4 fL 81-[address] [facility] Magnesiumon 03-27-2024 Magnesium [Mass/Vol] 2.1 mg/dL Normal 1.6-2.6 [facility] Comment on above: Order Comment: CLEAN CATCH Performed By: #### M 100.2200, L400.2010 #### [facility] [address] [place], [address] Magnesium measurementOrdered By: Josi Garcia on 03-27-2024 Magnesium [Mass/Vol] 2.1 mg/dL 1.6-2.6 [facility] Mean corpuscular hemoglobin (MCH) determinationOrdered By: Josi Garcia on 03-27-2024 MCH (RBC) [Entitic mass] 28.7 pg 27.0-32.0 [facility] Mean corpuscular hemoglobin concentration (MCHC) determinationOrdered By: Josi Garcia on 03-27-2024 MCHC (RBC) [Mass/Vol] 31.1 g/dL Low 32-36 [facility] Mean platelet volume determi nationOrdered By: Josi Garcia on 03-27-2024 Platelet mean volume (Bld) [Entitic vol] 9.6 fL 6.2-12.0 [facility] Monocyte percentageOrdered B y: Josi Garcia on 03-27-2024 Monocytes/100 WBC (Bld) 6.3 % 0-10 [facility] Neutrophil percentageOrdered By: Josi Garcia on 03-27-2024 Neutrophils/100 WBC (Bld) 61.3 % 47-70 [facility] Nucleated red blood cell per centageOrdered By: Josi Garcia on 03-27-2024 Nucleated RBC/100 WBC (Bld) [Ratio] 0 % 0-5 [facility] Platelet countOrdered By: Chuy Garcia on 03-27-2024 Platelets (Bld) [#/Vol] 283 10*3/uL 150-450 [facility] Potassium measurementOrdered By: Josi Garcia on 03-27-2024 Potassium [Moles/Vol] 3.8 mmol/L 3.5-5.1 [facility] RBC Auto (Bld) [#/Vol]Ordere d By: Josi Garcia on 03-27-2024 RBC (Bld) [#/Vol] 3.69 10*6/uL Low 4.2-5.4 [facility] Serum anion gap measurementO rdered By: Josi Garcia on 03-27-2024 Anion gap [Moles/Vol] 4 mmol/L Low 5-15 [facility] Serum or plasma calcium riky urement (mass/volume)Ordered By: Josi Garcia on 03-27-2024 Calcium [Mass/Vol] 9.6 mg/dL 8.5-10.1 [facility] [place] [facility] Serum or plasma cholesterol measurement (mass/volume)Ordered By: Josi Garcia on 03-27-2024 Cholesterol [Mass/Vol] 150 mg/dL <200 [facility] Comment on above: <200 mg/dL Desirable 200-240 mg/dL Borderline >240 mg/dL High Risk Serum or plasma creatinine m easurement (mass/volume)Ordered By: Josi Garcia on 03-27-2024 Creatinine [Mass/Vol] 0.48 mg/dL Low 0.55-1.02 [facility] Comment on above: The validity of the calculated GFR & GFRAA in patients over 70 years has not been determined. Clinical correlation is essential. Serum or plasma urea nitroge n measurement (mass/volume)Ordered By: Josi Garcia on 03-27-2024 Urea nitrogen [Mass/Vol] 11 mg/dL 7-18 [facility] Sodium levelOrdered By: Vanna Garcia on 03-27-2024 Sodium [Moles/Vol] 141 mmol/L 136-145 [facility] [place] [facility] TSH QnOrdered By: Josi ayala on 03-27-2024 Thyroid Stimulating Hormone (TSH) 2.360 uIU/mL 0.358-3.740 [facility] Thyroid Stim Hormone (TSH)on 03-27-2024 TSH 2.360 uIU/mL Normal 0.358-3.740 [facility] Comment on above: Order Comment: CLEAN CATCH Performed By: #### M 100.2200, L400.2010 #### [facility] [place], [address] Triglycerides measurementOrd ered By: Josi Garcia on 03-27-2024 Triglyceride [Mass/Vol] 127 mg/dL <199 [facility] Comment on above: The drugs N-Acetylcy steine and Metamizole may falsely depress this assay.Serum Triglycerides Reference Interval Normal <150 mg/dL Borderline high 150 - 199 mg/dL High 200 - 499 mg/dL Very High > or = 500 mg/dL Very low density lipoprotein (VLDL) cholesterol measurementOrdered By: Josi Garcia on 03-27-2024 VLDL Cholesterol 25 mg/dL 5-40 [facility] White blood cell (WBC) count Ordered By: Josi Garcia on 03-27-2024 WBC (Bld) [#/Vol] 7.8 10*3/uL 4.4-11.0 [facility] [place] [facility] DIOR CARVAJAL ([id number]) 1965 F Date Time Provider Department 03/24/24 MINI WHYTE [facility] During your visit today, we recorded the following information about you: Gerda Dee RN 03/24/2024 4:19 PM Signed Contacted [facility] alf regarding appointments scheduled for 04/02/24 (xray, MRA) and visit with Dr Spears on 04/07. I was told she is moving today to [facility] in [facility]. I confirmed all her upcoming appointments and was told her appointment sheet will be sent with her to [place]. I called and left a message for her sister Katie regarding her 04/02 imaging studies and appointment with Dr Spears on 04/07 Patient has prednisone for her MRI scheduled for 05/26 but will need refill for the 04/02 scans. Refill sent to Dr Spears. Gerda Dee RN, BSN Pleating Supervisor [facility] [...] Encounter Status:Closed by GERDA DEE on 03/24/24 Normal [facility] CNCOon 03-14-2024 CNCO Letter Text Normal [facility] CNPNon 03-10-2024 CNPN Telephone (NSCAMN) DIOR CARVAJAL ([id number]) 1965 F Date Time Provider Department 03/10/24 [facility] During your visit today, we recorded the following information about you: Annabelle George 03/10/2024 1:29 PM Signed General Call Caller : Nieves Johnson Contact or [phone] Reason for Call : Pt is scheduled to have her MRI on 05/26/2024. Nieves is calling for pt's premedication as pt is allergic to the contrast. Please also note the instruction on when pt is to take medication as Nieves thought pt take her premeds 3 days prior to the MRI appt. Patient requesting return call ? Yes Gerda Dee, RN 03/11/2024 2:48 PM Signed Attempted to reach Nieves- no answer Predication order and instructions copied and faxed to Nieves fax [phone] completed on 03/11 @ 14;42 pm Prednisone 50mg is to be given starting 13 hours before scheduled MRi (on 05/26 @ 9:10 )am, 7 hours before and 1 hour before- for a total of 3 doses of 50mg each. 2- 8 pm 05/26- 2 am 05/26- 8 am Gerda Dee RN, BSN Pleating Supervisor [facility] [...] Encounter Status:Closed by GERDA DEE on 03/11/24 [facility] Crissy 03-05-2024 RICHARD Telephone (NSEN) WEIDIOR ([id number]) 1965 F Date Time Provider Department 03/05/24 NEUROLOGY PROVIDER NIKUNJEsther During your visit today, we recorded the following information about you: Nano Ojeda 03/05/2024 5:48 PM Signed Consult Received: Today Dorcas Nova Cv Triage Please schedule below request. Patient resides At [facility] [phone]-let them know of any appointments. Scheduling Request [...] Encounter Status:Closed by NANO OJEDA on 03/10/24 [facility] CNPNikky 03-04-2024 CNPN Telephone (HEMCA3) DIOR CARVAJAL ([id number]) 1965 F Date Time Provider Department 03/04/24 [...] Encounter Status:Closed by MARC PINA on 04/08/24 [facility] CNPN Telephone (HEMCA3) DIOR CARVAJAL ([id number]) 1965 F Date Time Provider Department 03/04/24 MINI WHYTE HEMCA3 During your visit today, we recorded the following information about you: Marc Pina RN 03/04/2024 3:56 PM Addendum Scheduling Request - est Patient Time Frame: next available Orders: MRA brain, MRA carotid, MRI cervical spine, XR CERVICAL 2V FLEX/EXT - Ok to arrange close scan close to [place] Visit type: In person within a week from scans with Dr. Spears in person Diagnosis: brain tumor Patient lives in a facility and needs transportation arranged. PLease call [facility] ph [phone]-let them know of any appointments. Dorcas Nova [...] Encounter Status:Closed by DORCAS NOVA on [facility]OR CARAVJAL ([id number]) 1965 F Date Time Provider Department 03/04/24 MINI WHYTE HEMCA3 During your visit today, we recorded the following information about you: Marc Pina RN 03/04/2024 3:53 PM Addendum Patient resides At [facility] [phone]-let them know of any appointments. Scheduling Request [...] Frame: next available Orders: consult to brain [facility] - dementia Provider or Provider Group: [...] spinal cord, sequela (HCC) 8. Quadriplegia (HCC) Avtar Dorcas 03/17/2024 12:37 PM Signed Sent all requests [...] Encounter Status:Closed by DORCAS NOVA on 03/17/24 [facility] Lisy 02-28-2024 CNOV Office Visit (NSCAMN ) DIOR CARVAJAL ([id number]) 1965 F Date Time Provider Department 02/28/24 [...] No Does patient want to see a Blowing Engineer? No (yes to any of above refer [...] is accompanied by a staff at the custodial facility where she resides, [place]. Subjective History of Present Illness: Mrs. Carvajal, [...] Surgery: R frontal lobe tumor resection at [facility]- ([id number]) Pathology: Anaplastic astrocytoma Neurosurgeon: Raul Tamez MD [facility] Neurosurgery , [address] [place] [address] Radiation oncologist: Unknown PER SISTER: ONLY HAD RADIATION. NEVER HAD CHEMO However on some [facility] Notes is says - patient had chemo-radiation. 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 SOCIAL: -Patient resides in [facility] -Sister Laureen Hassan MPOA Therapy Status Data [...] Smoking statu (more content not included)... Normal [facility] MR Brain WO contraston 02-27 IMPRESSION: [...] abnormality. Age advanced moderate parenchymal volume loss. Hotel Front Office Manager: MAGUI Transcribe Date/Time: Feb 28 2024 2:24P Dictated by : LEONORA CUELLAR MD This examination was interpreted and the report reviewed and electronically signed by: LEONORA CUELLAR MD on Feb 28 2024 2:37PM [facility] DIVISION OF RADIOLOGY * * *Final Report* * * DATE OF EXAM: Feb 28 2024 2:16PM [facility] 0294 - MRI BRAIN WO IVCON [...] tissues are unremarkable. DIVISION OF RADIOLOGY Provider, [facility] - 02/28/2024 * * *Final [...] abnormality. Age advanced moderate parenchymal volume loss. Hotel Front Office Manager: PSCB Transcribe Date/Time: Feb 28 2024 2:24P Dictated by : LEONORA CUELLAR MD This examination was interpreted and the report reviewed and electronically signed by: LEONORA CUELLAR MD on Feb 28 2024 2:37PM [facility] Radiology Study observation (narrative) [facility] MR Brain WO contrastOrdered By: Ccf Provider on 02-28-2024 [facility] MRI BRAIN WO IVCONon 024 MRI BRAIN [...] Consider follow-up MRI brain to reassure stability. Hotel Front Office Manager: MAGUI Transcribe Date/Time: Mar 04 2024 11:20A Dictated by : LEONORA CUELLAR MD This examination was interpreted and the report reviewed and electronically signed by: LEONORA CUELLAR MD on Feb 28 2024 2:37PM EST This document has been addended by: LEONORA CUELLAR MD on Mar 04 2024 11:48AM EST [id number] Normal [facility] CNOVon 02-13-2024 CNOV Office Visit (PSYTMN ) DIOR CARVAJAL ([id number]) 1965 F Date Time Provider Department 02/13/24 12:30 PM BINDU BURT PSYTMN During your visit today, we recorded the following information about you: Bindu Burt, PhD 02/29/2024 4:56 PM Signed [facility] Department of Neurology Section of Neuropsychology Neuropsychological Evaluation Report CONFIDENTIAL Patient: Dior Carvajal Referred by: Mini Whyte Date of : 1965 Date of Evaluation: 02/13/2024 SUMMARY/IMPRESSIONS: The patient is a 59-year-old, White, female, referred for a neuropsychological evaluation by Mini Whyte MD in the [facility]. 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 Of note, the [...] astrocytoma s/p right frontal tumor resection at [facility] on 04/27/1992. She is unsure [...] the patient. IADL/ADL: She has resided in [facility], a alf facility, since 08/05/2022. Her family visits her frequently and is reportedly involved in he (more content not included)... [facility] ([facility]) WEIDIOR ([id number]) 1965 F Date Time Provider Department 02/06/24 MINI WHYTE [facility] During your visit today, we [...] times for 02/28/24 Gerda Dee, RN, BSN Pleating Supervisor [facility] [...] Encounter Status:Closed by GERDA DEE on 02/06/24 [facility] Telephone (NSCAMN) WEIDIOR ([id number]) 1965 F Date Time Provider Department 02/06/24 MINI WHYTE [facility] During your visit today, we recorded the following information about you: Gerda Dee RN 02/06/2024 10:13 AM Signed Contacted [facility] and spoke with Johanny. I let her know dates, times and location for patients MRI and visit scheduled for 02/28/24. Sister was also updated who will meet patient here. Transportation to be arranged by facility Gerda Dee RN, BSN Pleating Supervisor [facility] [...] Encounter Status:Closed by GERDA DEE on 02/06/24 Normal [facility] CREATININE, BLOOD (POC)on Creatinine [Mass/Vol] 0.60 mg/dL 0.6 - 1.3 mg/dL [facility] eGFR (POCT) mL/min/1.73 m2 [facility] Location:Radiology [address] , [place], [place], [address] [facility] POINT OF CARE [facility] CT Head W contrast Sherice 10-0 IMPRESSION: No acute intracranial process. Remote history of RIGHT frontal craniotomy for underlying mass resection, with redemonstrated RIGHT frontal encephalomalacia and gliosis. No overt evidence of disease progression or recurrence on CT, however this is better evaluated with MR brain without and with contrast. Hotel Front Office Manager: MAGUI Transcribe Date/Time: Dec 25 2023 1:22P Dictated by : AKTTY DAI MD This examination was interpreted and the report reviewed and electronically signed by: KATTY DAI MD on Dec 25 2023 1:30PM [facility] DIVISION OF RADIOLOGY * * *Final Report* * * DATE OF EXAM: Dec 25 2023 12:25PM [facility] 0005 - CT BRAIN W [...] tissues are unremarkable. DIVISION OF RADIOLOGY Provider, [facility]rien[facility] - 12/25/2023 * * *Final Report* * * DATE OF EXAM: Dec 25 2023 12:25PM [facility] 0005 - CT BRAIN W [...] with MR brain without and with contrast. Hotel Front Office Manager: PSCB Transcribe Date/Time: Dec 25 2023 1:22P Dictated by : KATTY DAI MD This examination was interpreted and the report reviewed and electronically signed by: KATTY DAI MD on Dec 25 2023 1:30PM EST [facility] Radiology Study observation (narrative) [facility] CT Head W contrast IVOrdered By: Ccf Provider on 12-25-2023 [facility] CNPNikky 08-04-2022 CNPN Telephone (AGFAMPLE) WEIDIOR ([id number]) 1965 F Date Time Provider Department 08/04/22 LEELA ESCOTO During your visit today, we recorded the following information about you: Adalberto Woods MA 08/04/2022 3:45 PM Signed Patient left message stating her handicap parking placard is going to be expiring and she would like an order for a new one mailed to [address] [place] [address]. Please advise. GEOFF Rowe DO 08/04/2022 3:48 [...] involving multiple joints [M15.9] Order(s):PARKING FOR HANDICAPPED [[id number]] Order #: [id number] Prescriptions as of 08/07/2022 - traMADol (ULTRAM) [...] Encounter Status:Closed by ADALBERTO WOODS on 08/07/22 [facility] Crissy 07-19-2022 CHRISTIANON Telephone (LAURA) DIOR CARVAJAL ([id number]) 1965 F Date Time Provider Department 07/19/22 RILEY PALMER During your visit today, we recorded the following information about you: Riley Palmer MA 07/19/2022 8:58 AM Signed Message left on vm. Patient needs apt. To get into long care facitly . Please contact Katie at [phone] to schedule apt. Thanks. GEOFF Juárez MA 07/26/2022 1:35 PM Signed Patient had a wellness visit on 12/02/21. Called Katie and left message requesting she call back and let us know what the letter needs to state. GEOFF Rowe MA 07/26/2022 3:44 PM Signed Pt. Daughter katie [phone] states letter needs to say pt. Needs custodial care. GEOFF Juárez DO 07/27/2022 4:24 PM Signed Is her daughter trying to get her into an extended care facility? Is she trying to get insurance to pay for it? What would be the reasons for her needing ferry terminal agent care, in the opinion of her daughter? Thanks DO Riley Oakes MA 07/28/2022 7:36 AM Signed Left message on [employer] to call us back with all this [...] to get her dad in a facility (half-way also). Please advise. GEOFF Juárez MA 07/28/2022 11:40 AM Signed [facility] in [place] will be faxing over information. GEOFF Juárez MA 07/28/2022 2:41 PM Addendum [facility] sent fax stating they need current h+p with medication list, doctors order that states alf placement is needed. Riley Palmer MA Placed in green folder to review Please advise what to send. Thank you Leela Escoto DO 07/31/2022 1:36 PM Signed Letter printed DO Adalberto Oakes MA 07/31/2022 3:09 PM Signed Letter, last office visit and snap shot faxed to Rah as requested [phone]. Adalberto Woods MA Allergies As of Date: [...] Encounter Status:Closed by RILEY PALMER on 07/19/22 [facility] CNOVon 05-25-2022 CNOV Office Visit (AGFAMPLE) DIOR CARVAJAL ([id number]) 1965 F Date Time Provider Department 05/25/22 [...] pt's father cannot continue to go to [employer] weekly and cannot go to another pharmacy - OXYCODONE 5 MG TABLET 3. Grief - ICD9: 309.0, ICD10: F43.21 Pt's son in February 26. Smoker - ICD9: 305.1, ICD1 (more content not included)... Normal [facility] Crissy 05-25-2022 CHRISTIANO Telephone (LAURA) DIOR CARVAJAL ([id number]) 1965 F Date Time Provider Department 05/25/22 LEELA ESCOTO During your visit today, we recorded the following information about you: Xochitl Torres MA 05/25/2022 11:51 AM Signed ----- Message from Leela Escoto DO sent at 05/25/2022 11:40 AM EST ----- Please call [facility] pharmacy and find out when they [...] 05/26/2022 8:44 AM Signed Please notify pt [facility] pharmacy said they do not know when they will get more tramadol DO Riley Oakes MA 05/26/2022 11:31 AM Signed Lm on pt. Vm with all information. Riley Palmer MA Allergies [...] Encounter Status:Closed by XOCHITL TORRES on 05/25/22 [facility] UA DIP, URINE (POC)on 2022 BILIRUBIN UA (POCT) Negative Negative [facility] CLARITY UA (POCT) Cloudy [facility] COLOR UA (POCT) Dark yellow [facility] GLUCOSE UA (POCT) Negative Negative mg/dL [facility] HEMOGLOBIN/BLOOD UA (POCT) Trace-intact Abnormal Negative [facility] KETONE UA (POCT) Negative Negative mg/dL [facility] LEUKOCYTES UA (POCT) Small Abnormal Negative [facility] NITRITE UA (POCT) Negative Negative [facility] PH UA (POCT) 7.5 4.5 - 8.0 [facility] Protein Ql (U) 30 mg/dL Abnormal Negative mg/dL [facility] SPECIFIC GRAVITY UA (POCT) 1.025 1.005 - 1.030 [facility] UROBILINOGEN UA (POCT) 0.2 E.U./dL Deepa l E.U./dL [facility] ED NOTEon 03-21-2022 ED NOTE HNO ID: [id number] Author: Fausto Sawyer RN Service: Emergency Medicine [...] time. Patient's father driving patient home. Normal [facility] ED PROV NOTEon 03-21-2022 ED PROV NOTE HNO ID: [id number] Author: Seth Pillai MD Service: Emergency Medicine [...] for assess (more content not included)... Normal [facility] Basic metabolic 2000 panelon 03-20-2022 Anion gap [Moles/Vol] 11 mmol/L Normal 9-18 [facility] Comment on above: Order Comment: Speci men Type: BLOOD SPECIMEN Ordering Facility: [facility] Address: [address] [place] [address] Performed By: #### 1 798-8, 03313-5, 3016-3 #### [facility] CLIA [id number] [address] [place] [address] [place] Calcium [Mass/Vol] 10.3 mg/dL High 8.5-10.2 [facility] Comment on above: Order Comment: Speci men Type: BLOOD SPECIMEN Ordering Facility: [facility] Address: [address] [place] [address] Performed By: #### 1 798-8, 49210-2, 3016-3 #### [facility] CLIA [id number] [address] [place] [address] [place] Chloride [Moles/Vol] 102 mmol/L Normal 97-105 [facility] Comment on above: Order Comment: Speci men Type: BLOOD SPECIMEN Ordering Facility: [facility] Address: [address] [place] [address] Performed By: #### 1 798-8, 00218-7, 6-3 #### [facility] CLIA [id number] [address] [place] [address] [place] CO2 [Moles/Vol] 26 mmol/L Normal 22-30 [facility] Comment on above: Order Comment: Speci men Type: BLOOD SPECIMEN Ordering Facility: [facility] Address: [address] [place] [address] Performed By: #### 1 798-8, 30625-4, 3 #### [facility] CLIA [id number] [address] [place] [address] [facility] Creatinine [Mass/Vol] 0.49 mg/dL Low 0.58-0.96 [facility] Comment on above: Order Comment: Speci men Type: BLOOD SPECIMEN Ordering Facility: [facility] Address: [address] [place] [address] Performed By: #### 1 798-8, 26359-2, 3 #### [facility] CLIA [id number] [address] [place], [place] [address] [place] [address] ESTIMATED GLOMERULAR FILTRATION RATE 109 mL/min/1.73m??? Normal >=60 [facility] Comment on above: Order Comment: Speci men Type: BLOOD SPECIMEN Ordering Facility: [facility] Address: [address] [place] [address] Result Comment: Janae mated Glomerular Filtration Rate [...] actual GFR. Performed By: #### 1 798-8, 72938-4, 6-3 #### [facility] CLIA [id number] [address] [place] [address] [place] Glucose [Mass/Vol] 122 mg/dL High 74-99 [facility] Comment on above: Order Comment: Jayme harding Type: BLOOD SPECIMEN Ordering Facility: [facility] Address: [address] [place] [address] Result Comment: The [place] [employer] (ADA) provides guidance for cutoff [...] Standards of Medical Care in Diabetes 2016, [place] [employer]. Diabetes Care. 2016.39(Suppl 1). Performed By: #### 1 798-8, 38121-3, 3016-3 #### [facility] CLIA [id number] [address] [place] [address] [place] Potassium [Moles/Vol] 3.7 mmol/L Normal 3.7-5.1 [facility] Comment on above: Order Comment: Jayme harding Type: BLOOD SPECIMEN Ordering Facility: [facility] Address: [address] [place] [address] Performed By: #### 1 798-8, 69786-3, 3016-3 #### [facility] CLIA [id number] [address] [place] [address] [place] Sodium [Moles/Vol] 139 mmol/L Normal 136-144 [facility] Comment on above: Order Comment: Jayme harding Type: BLOOD SPECIMEN Ordering Facility: [facility] Address: [address] [place] [address] Performed By: #### 1 798-8, 42775-2, 3016-3 #### [facility] CLIA [id number] [address] [place] [address] [place] Urea nitrogen [Mass/Vol] 9 mg/dL Normal 7-21 [facility] Comment on above: Order Comment: Speci men Type: BLOOD SPECIMEN Ordering Facility: [facility] Address: [address] [place] [address] Performed By: #### 1 798-8, 68900-3, 3016-3 #### [facility] CLIA [id number] [address] [place] [address] [place] CBC W Auto Differential pane l (Bld)on 03-20-2022 Basophils (Bld) [#/Vol] 0.03 10*3/uL Normal <0.11 [facility] Comment on above: Order Comment: Speci men Type: BLOOD SPECIMEN Ordering Facility: [facility] Address: [address] [place] [address] Result Comment: Diff erential confirmed by visual scan of peripheral blood smear slide. Performed By: #### 5 7021-8 #### [facility] CLIA [id number] [address] [place] [id number] [place] Basophils/100 WBC (Bld) 0.2 % Normal [facility] Comment on above: Order Comment: Speci men Type: BLOOD SPECIMEN Ordering Facility: [facility] Address: [address] [place] [address] Performed By: #### 5 7021-8 #### [facility] CLIA [id number] [address] [place] Differential cell count method Nom (Bld) Auto Normal [facility] Comment on above: Order Comment: Speci men Type: BLOOD SPECIMEN Ordering Facility: [facility] Address: [address] [place] [address] Performed By: #### 5 7021-8 #### [facility] CLIA [id number] [address] [place] [address] [place] Eosinophils (Bld) [#/Vol] 0.04 10*3/uL Normal <0.46 [facility] Comment on above: Order Comment: Speci men Type: BLOOD SPECIMEN Ordering Facility: [facility] Address: [address] [place] [address] Performed By: #### 5 7021-8 #### [facility] CLIA [id number] [address] [place] Eosinophils/100 WBC (Bld) 0.3 % Normal [facility] Comment on above: Order Comment: Speci men Type: BLOOD SPECIMEN Ordering Facility: [facility] Address: [address] [place] [address] Performed By: #### 5 7021-8 #### [facility] [place] [facility] CLIA [id number] [address] [place] [address] [place] Erythrocyte distribution width (RBC) [Ratio] 12.8 % Normal 11.5-15.0 [facility] Comment on above: Order Comment: Speci men Type: BLOOD SPECIMEN Ordering Facility: [facility] Address: [address] [place] [address] Performed By: #### 5 7021-8 #### [facility] [place] [facility] CLIA [id number] [address] [place] [address] [place] Hematocrit (Bld) [Volume fraction] 39.9 % Normal 36.0-46.0 [facility] Comment on above: Order Comment: Speci men Type: BLOOD SPECIMEN Ordering Facility: [facility] Address: [address] [place] [address] Performed By: #### 5 7021-8 #### [facility] [facility] CLIA [id number] [address] [place] [address] [place] Hemoglobin (Bld) [Mass/Vol] 12.8 g/dL Normal 11.5-15.5 [facility] Comment on above: Order Comment: Speci men Type: BLOOD SPECIMEN Ordering Facility: [facility] Address: [address] [place] [address] Performed By: #### 5 7021-8 #### [facility] CLIA [id number] [address] [place] [address] [place] Immature granulocytes (Bld) [#/Vol] 0.03 10*3/uL Normal <0.10 [facility] Comment on above: Order Comment: Speci men Type: BLOOD SPECIMEN Ordering Facility: [facility] Address: [address] [place] [address] Performed By: #### 5 7021-8 #### [facility] CLIA [id number] [address] [place] [address] [place] Immature granulocytes/100 WBC (Bld) 0.2 % Normal [facility] Comment on above: Order Comment: Speci men Type: BLOOD SPECIMEN Ordering Facility: [facility] Address: [address] [place] [address] Performed By: #### 5 7021-8 #### [facility] [facility] CLIA [id number] [address] [place] [address] [place] Lymphocytes (Bld) [#/Vol] 1.95 10*3/uL Normal 1.00-4.00 [facility] Comment on above: Order Comment: Speci men Type: BLOOD SPECIMEN Ordering Facility: [facility] Address: [address] [address] Performed By: #### 5 7021-8 #### [facility] [facility] CLIA [id number] [address] [place] [address] Lymphocytes/100 WBC (Bld) 12.2 % Normal [facility] Comment on above: Order Comment: Speci men Type: BLOOD SPECIMEN Ordering Facility: [facility] Address: [address] [place] [address] Performed By: #### 5 7021-8 #### [facility] [facility] CLIA [id number] [address] [place] [address] [place] MCH (RBC) [Entitic mass] 29.6 pg Normal 26.0-34.0 [facility] Comment on above: Order Comment: Speci men Type: BLOOD SPECIMEN Ordering Facility: [facility] Address: [address] [place] [address] Performed By: #### 5 7021-8 #### [facility] [facility] CLIA [id number] [address] [place], [place] [address] [place] [address] [place] MCHC (RBC) [Mass/Vol] 32.1 g/dL Normal 30.5-36.0 [facility] Comment on above: Order Comment: Speci men Type: BLOOD SPECIMEN Ordering Facility: [facility] Address: [address] [place] [address] Performed By: #### 5 7021-8 #### [facility] [place] [facility] CLIA [id number] [address] [place] [address] [place] MCV (RBC) [Entitic vol] 92.4 fL Normal 80.0-100.0 [facility] Comment on above: Order Comment: Speci men Type: BLOOD SPECIMEN Ordering Facility: [facility] Address: [address] [place] [address] Performed By: #### 5 7021-8 #### [facility] [place] [facility] CLIA [id number] [address] [place] [address] Monocytes (Bld) [#/Vol] 0.72 10*3/uL Normal <0.87 [facility] Comment on above: Order Comment: Speci men Type: BLOOD SPECIMEN Ordering Facility: [facility] Address: [address] [place] [address] Performed By: #### 5 7021-8 #### [facility] [place] [facility] CLIA [id number] [address] [place] [address] Monocytes/100 WBC (Bld) 4.5 % Normal A [facility] Comment on above: Order Comment: Speci men Type: BLOOD SPECIMEN Ordering Facility: [facility] Address: [address] [place] [address] Performed By: #### 5 7021-8 #### [facility] [place] [facility] CLIA [id number] [address] [place] Neutrophils (Bld) [#/Vol] 13.18 10*3/uL High 1.45-7.50 [facility] Comment on above: Order Comment: Speci men Type: BLOOD SPECIMEN Ordering Facility: [facility] Address: [address] [place] [address] Performed By: #### 5 7021-8 #### [facility] [facility] CLIA [id number] [address] [place] [address] [place] Neutrophils/100 WBC (Bld) 82.6 % Normal [facility] Comment on above: Order Comment: Speci men Type: BLOOD SPECIMEN Ordering Facility: [facility] Address: [address] [place] [address] Performed By: #### 5 7021-8 #### [facility] [facility] CLIA [id number] [address] [place] [address] [place] Nucleated RBC (Bld) [#/Vol] Normal [facility] Comment on above: Order Comment: Speci men Type: BLOOD SPECIMEN Ordering Facility: [facility] Address: [address] [place] [address] Performed By: #### 5 7021-8 #### [facility] [facility] CLIA [id number] [address] [id number] [place] Nucleated RBC/100 WBC (Bld) [Ratio] Normal [facility] Comment on above: Order Comment: Speci men Type: BLOOD SPECIMEN Ordering Facility: [facility] Address: [address] [place] [address] Performed By: #### 5 7021-8 #### [facility] [facility] CLIA [id number] [address] [place] [address] [place] Platelet mean volume (Bld) [Entitic vol] 9.2 fL Normal 9.0-12.7 [facility] Comment on above: Order Comment: Speci men Type: BLOOD SPECIMEN Ordering Facility: [facility] Address: [address] [place] [address] Performed By: #### 5 7021-8 #### [facility] [facility] CLIA [id number] [address] [place] [address] [place] Platelets (Bld) [#/Vol] 303 10*3/uL Normal 150-400 [facility] Comment on above: Order Comment: Speci men Type: BLOOD SPECIMEN Ordering Facility: [facility] Address: [address] [address] Result Comment: RARE PLATELET CLUMPS NO CLOT Performed By: #### 5 7021-8 #### [facility] [place] [facility] CLIA [id number] [address] [place] [address] [place] [facility] Platelets Estimate (Bld) [#/Vol] Adequate Normal [facility] Comment on above: Order Comment: Speci men Type: BLOOD SPECIMEN Ordering Facility: [facility] Address: [address] [address] Performed By: #### 5 7021-8 #### [facility] [place] [facility] CLIA [id number] [address] [place] [address] [place] RBC (Bld) [#/Vol] 4.32 10*6/uL Normal 3.90-5.20 [facility] Comment on above: Order Comment: Speci men Type: BLOOD SPECIMEN Ordering Facility: [facility] Address: [address] [address] Performed By: #### 5 7021-8 #### [facility] [place] [facility] CLIA [id number] [address] [place] [address] [place] [facility] RED CELL MORPH Reviewed: unremarkable Normal [facility] Comment on above: Order Comment: Speci men Type: BLOOD SPECIMEN Ordering Facility: [facility] Address: [address] Performed By: #### 5 7021-8 #### [facility] [place] [facility] CLIA [id number] [address] [place] [address] [place] WBC (Bld) [#/Vol] 15.95 10*3/uL High 3.70-11.00 [facility] Comment on above: Order Comment: Speci men Type: BLOOD SPECIMEN Ordering Facility: [facility] Address: [address] [address] Performed By: #### 5 7021-8 #### [facility] CLIA [id number] [address] [place] [address] [place] [address] ABD/PEL WO IVCONon 2021 CT ABD/PEL WO IVCON * * *Final Report* * * DATE OF EXAM: Mar 20 2022 8:50PM [facility] 0531 - CT ABD/PEL WO IVCON / [...] arthroplasty has been performed. Lower thorax: Unremarkable. Payroll Supervisor (topogram) images: IMPRESSION: Left pelvic kidney with nephrolithiasis looks similar. There is no obstructive uropathy. Hotel Front Office Manager: PSCB Transcribe Date/Time: Mar 20 2022 9:05P Dictated by : LESLY BOSTON MD This examination was interpreted and the report reviewed and electronically signed by: ELSLY BOSTON MD on Mar 20 2022 9:18PM EST [id number] [facility] ED NOTEon 12-26-2022 ED NOTE HNO ID: [id number] Author: Fausto Sawyer RN Service: Emergency Medicine Author Type: Registered Nurse Type: ED Notes Filed: 03/20/2022 9:31 PM Note Text: Patient informed about the name of the medication(s), what the medication(s) is(are) for, and what to expect with/from med administration. Patient given opportunity to ask questions. Medication(s) include: Macrobid. [facility] ED NOTE HNO ID: [id number] Author: Fausto Sawyer RN Service: Emergency Medicine Author Type: Registered Nurse Type: ED Notes Filed: 03/20/2022 9:26 PM Note Text: Physician at bedside. [facility] ED NOTE HNO ID: [id number] Author: Pau Castañeda RN Service: Nursing Author Type: Registered Nurse Type: ED Notes Filed: 03/20/2022 7:16 PM Note Text: Report to ALMA Lambert [facility] ED NOTE HNO ID: [id number] Author: Fausto Sawyer RN Service: Emergency Medicine Author Type: Registered Nurse Type: ED Notes Filed: 03/20/2022 10:11 PM Note Text: Change of shift report received from Pau Clay RN. This RN assumed patient care at this time. [facility] ED NOTE HNO ID: [id number] Author: Pau Castañeda RN Service: Nursing Author Type: Registered Nurse Type: ED Notes Filed: 03/20/2022 6:50 PM Note Text: Pt taken to bathroom, unable to void [facility] ED NOTE HNO ID: [id number] Author: Pau Castañeda RN Service: Nursing Author Type: Registered Nurse Type: ED Notes Filed: 03/20/2022 6:19 PM Note Text: Pt arrives with report of UTI, noticed symptoms about 1 week ago. Pt reports frequency, burning, and "always going". Pt reports pain "in the crotch", pt reports pain is constant [facility] Urinalysis complete pnl Uron 03-20-2022 [...] 2 <10,000 CFU/ml Normal urogenital keisha Normal [facility] Comment on above: Order Comment: Speci men Type: URINE SPECIMENOrdering Facility: [facility] Address: [address] [place] [id number] Performed By: #### 2 4356-8 ####[facility] [id number] [place] [address] [facility] [id number] [place] [address] [facility] CNOVon 02-24-2022 CNOV Office Visit (AGFAMPLE) DIOR CARVAJAL ([id number]) 1965 F Date Time Provider Department 02/24/22 [...] Tenderness: There (more content not included)... Normal [facility] CT ABD/PEL WO IVCONon 2021 CT ABD/PEL WO IVCON * * *Final Report* * * DATE OF EXAM: Jan 18 2022 3:44PM [facility] 0531 - CT ABD/PEL WO IVCON / [...] Lower thorax: No acute osseous abnormality identified. Payroll Supervisor (topogram) images: No additional findings. IMPRESSION: No acute process identified involving the abdomen or pelvis. Left pelvic kidney and left nephrolithiasis. Additional findings as above. Hotel Front Office Manager: PSCAgnieszka Transcribe Date/Time: Jan 20 2022 1:57P Dictated by : SETH CHAPMAN MD This examination was interpreted and the report reviewed and electronically signed by: SETH CHAPMAN MD on Jan 20 2022 2:02PM EST [id number] Normal [facility] C diff Tox gens Stl Ql BARB+p robeon 12-27-2021 C. difficile toxin genes BARB+probe Ql (Stl) Negative Normal Negative for C. difficile toxin by PCR [facility] Comment on above: Order Comment: Speci men Type: STOOL SPECIMEN Ordering Facility: [facility] Address: [address] [place] [address] Performed By: #### 5 4067-4 #### [facility] CLIA [id number] [address] [place] FECAL LACTOFERRIN/LEUKOCYTES on 12-27-2021 Lactoferrin IA Ql (Stl) Negative for lactoferrin, which may indicate the absence of fecal white blood cells Normal Negative [facility] Comment on above: Order Comment: Speci men Type: BLOOD SPECIMEN Ordering Facility: [facility] Address: [address] [place] [address] Performed By: #### 1 798-8, 37119-2, 3996-3 #### [facility] [place] [facility] CLIA [id number] [address] [place] GI pathogens Pnl Stl Culton 12-27-2021 Gastrointestinal pathogens panel Cx (Stl) CULTURE, STOOL: No Salmonella, Shigella, Campylobacter or E. coli O157:H7 isolated Normal [facility] Comment on above: Performed By: #### 8 2305-4 ####[facility] [id number] [place] [address] [place] O+P Spec Microon 12-27-2021 Ova and parasites identified LM Nom (Unsp spec) OVA AND PARASITE EXAM: No Parasites Seen Normal [facility] Comment on above: Performed By: #### 6 73-4 ####[facility] [id number] [place] [address] [place] Amylase SerPl-cCncon 022 Amylase [Catalytic activity/Vol] 32 U/L Normal 30-104 [facility] Comment on above: Order Comment: Speci men Type: BLOOD SPECIMEN Ordering Facility: [facility] Address: [address] [place] [address] Performed By: #### 1 798-8, 16214-0, 3016-3 #### [facility] [place] [facility] CLIA [id number] [address] [place] [address] [place] CBC W Auto Differential pane l (Bld)on 12-26-2021 Basophils (Bld) [#/Vol] 0.04 10*3/uL Normal <0.11 [facility] Comment on above: Order Comment: Jayme harding Type: BLOOD SPECIMEN Ordering Facility: [facility] Address: [address] [place] [address] Performed By: #### 1 798-8, 22369-7, 3016-3 #### [facility] [place] [facility] CLIA [id number] [address] [place] [address] [facility] [place] Basophils/100 WBC (Bld) 0.4 % Normal [facility] Comment on above: Order Comment: Jayme harding Type: BLOOD SPECIMEN Ordering Facility: [facility] Address: [address] [place] [address] Performed By: #### 1 798-8, 26443-8, 6-3 #### [facility] CLIA [id number] [address] [place] [address] Differential cell count method Nom (Bld) Auto Normal [facility] Comment on above: Order Comment: Jayme men Type: BLOOD SPECIMEN Ordering Facility: [facility] Address: [address] [place] [address] Performed By: #### 1 798-8, 74813-7, 6-3 #### [facility] [place] [facility] CLIA [id number] [address] [place] [address] [place] Eosinophils (Bld) [#/Vol] 0.07 10*3/uL Normal <0.46 [facility] Comment on above: Order Comment: Nickyi men Type: BLOOD SPECIMEN Ordering Facility: [facility] Address: [address] [place] [address] Performed By: #### 1 798-8, 37767-5, 3016-3 #### [facility] [place] [facility] CLIA [id number] [address] [place] [address] [place] Eosinophils/100 WBC (Bld) 0.7 % Normal [facility] Comment on above: Order Comment: Speci men Type: BLOOD SPECIMEN Ordering Facility: [facility] Address: [address] [place] [address] Performed By: #### 1 798-8, 53091-4, 6-3 #### [facility] [place] [facility] CLIA [id number] [address] [place] [address] [place] Erythrocyte distribution width (RBC) [Ratio] 13.3 % Normal 11.5-15.0 [facility] Comment on above: Order Comment: Speci men Type: BLOOD SPECIMEN Ordering Facility: [facility] Address: [address] [place] [address] Performed By: #### 1 798-8, 06968-5, 6-3 #### [facility] [place] [facility] CLIA [id number] [address] [place] [address] [place] Hematocrit (Bld) [Volume fraction] 42.4 % Normal 36.0-46.0 [facility] Comment on above: Order Comment: Speci men Type: BLOOD SPECIMEN Ordering Facility: [facility] Address: [address] [place] [address] Performed By: #### 1 798-8, 55116-5, 3015-3 #### [facility] [place] [facility] CLIA [id number] [address] [place] [address] [place] Hemoglobin (Bld) [Mass/Vol] 13.1 g/dL Normal 11.5-15.5 [facility] Comment on above: Order Comment: Speci men Type: BLOOD SPECIMEN Ordering Facility: [facility] Address: [address] [place] [address] Performed By: #### 1 798-8, 40143-2, 6-3 #### [facility] [place] [facility] CLIA [id number] [address] [place] [address] [place] Lymphocytes (Bld) [#/Vol] 1.92 10*3/uL Normal 1.00-4.00 [facility] Comment on above: Order Comment: Speci men Type: BLOOD SPECIMEN Ordering Facility: [facility] Address: [address] [place] [address] Performed By: #### 1 798-8, 28015-5, 3015-3 #### [facility] [place] [facility] CLIA [id number] [address] [place] [address] [facility] Lymphocytes/100 WBC (Bld) 19.5 % Normal [facility] Comment on above: Order Comment: Speci men Type: BLOOD SPECIMEN Ordering Facility: [facility] Address: [address] [place] [address] Performed By: #### 1 798-8, 63052-6, 3 #### [facility] [place] [facility] CLIA [id number] [address] [place] [id number] [place] [address] OF [facility] MCH (RBC) [Entitic mass] 29.0 pg Normal 26.0-34.0 [facility] Comment on above: Order Comment: Speci men Type: BLOOD SPECIMEN Ordering Facility: [facility] Address: [address] [place] [address] Performed By: #### 1 798-8, 00901-4, 3 #### [facility] CLIA [id number] [address] [place] [address] MCHC (RBC) [Mass/Vol] 30.9 g/dL Normal 30.5-36.0 [facility] Comment on above: Order Comment: Speci men Type: BLOOD SPECIMEN Ordering Facility: [facility] Address: [address] [place] [address] Performed By: #### 1 798-8, 53738-6, 3015-3 #### [facility] [place] [facility] CLIA [id number] [address] [place] [address] [facility] MCV (RBC) [Entitic vol] 93.8 fL Normal 80.0-100.0 [facility] Comment on above: Order Comment: Speci men Type: BLOOD SPECIMEN Ordering Facility: [facility] Address: [address] [place] [address] Performed By: #### 1 798-8, 57988-1, 3016-3 #### [facility] [place] [facility] CLIA [id number] [address] [place] [address] [place] Monocytes (Bld) [#/Vol] 0.44 10*3/uL Normal <0.87 [facility] Comment on above: Order Comment: Speci men Type: BLOOD SPECIMEN Ordering Facility: [facility] Address: [address] [place] [address] Performed By: #### 1 798-8, 99939-4, 3016-3 #### [facility] [place] [facility] CLIA [id number] [address] [place], [place] [id number] [place] [address] OF [facility] Monocytes/100 WBC (Bld) 4.5 % Normal [facility] [facility] Comment on above: Order Comment: Speci men Type: BLOOD SPECIMEN Ordering Facility: [facility] Address: [address] [place] [address] Performed By: #### 1 798-8, 47674-5, 6-3 #### [facility] CLIA [id number] [address] [place] [address] [place] Neutrophils (Bld) [#/Vol] 7.39 10*3/uL Normal 1.45-7.50 [facility] Comment on above: Order Comment: Speci men Type: BLOOD SPECIMEN Ordering Facility: [facility] Address: [address] [place] [address] Performed By: #### 1 798-8, 77587-8, 6-3 #### [facility] CLIA [id number] [address] [place] [address] [facility] Neutrophils/100 WBC (Bld) 74.9 % Normal [facility] Comment on above: Order Comment: Speci men Type: BLOOD SPECIMEN Ordering Facility: [facility] Address: [address] [place] [address] Performed By: #### 1 798-8, 22613-1, 3016-3 #### [facility] CLIA [id number] [address] [place] [address] [place] Platelet mean volume (Bld) [Entitic vol] 9.7 fL Normal 9.0-12.7 [facility] Comment on above: Order Comment: Speci men Type: BLOOD SPECIMEN Ordering Facility: [facility] Address: [address] [place] [address] Performed By: #### 1 798-8, 24195-8, 3015-3 #### [facility] CLIA [id number] [address] [place] [address] [place] Platelets (Bld) [#/Vol] 311 10*3/uL Normal 150-400 [facility] Comment on above: Order Comment: Speci men Type: BLOOD SPECIMEN Ordering Facility: [facility] Address: [address] [place] [address] Performed By: #### 1 798-8, 02640-9, 3015-3 #### [facility] CLIA [id number] [address] [place] [address] [place] RBC (Bld) [#/Vol] 4.52 10*6/uL Normal 3.90-5.20 [facility] Comment on above: Order Comment: Speci men Type: BLOOD SPECIMEN Ordering Facility: [facility] Address: [address] [place] [address] Performed By: #### 1 798-8, 43098-3, 3015-3 #### [facility] CLIA [id number] [address] [place] [address] [place] WBC (Bld) [#/Vol] 9.86 10*3/uL Normal 3.70-11.00 [facility] Comment on above: Order Comment: Speci men Type: BLOOD SPECIMEN Ordering Facility: [facility] Address: [address] [place] [address] Performed By: #### 1 798-8, 88667-7, 3015-3 #### [facility] IA [id number] [address] [place] [address] [place] [facility] HLA-DQ GENOTYPE on 12-26-2021 CELIAC CATEGORY Category 3 Normal [facility] Comment on above: Order Comment: Speci men Type: BLOOD SPECIMEN Ordering Facility: [facility] Address: [address] [place] [address] Result Comment: CATEGORY DQ HAPLOTYPE RELATIVE RISK [...] References: 1. Dontae L, Blair J, Richie Kessler, et al. Cost-effective HLA typing with tagging SNPs predicts celiac disease risk haplotypes in the Northern [place], [place] and [place] populations. Immunogenetics. 2009 Jun;61(4):247-56. 2. César STERN. Celiac disease: dissecting a complex inflammatory disorder. Ale Rev Immunol. 2002 Nov;2(9):647-55. 3. Rory E, Vineet HS, Danny FOWLER, et al. Risk of pediatric celiac disease according to HLA haplotype and country. N Engl J Med. 2014 ;371(1):42-9. HLA typing performed by PCR-RSSOP and/or NGS. This test was developed and its performance characteristics determined by [facility]. The test has not been cleared or approved by the [place] FDA. However, FDA approval was not necessary since this lab is certified under CLIA for high complexity testing. Test performed by: [facility], [facility] [place] [address]. CLIA [id number]. Performed By: #### C PIETER #### [facility] CLIA [id number] [address] [place] [address] [place] [facility] CELIAC RISK HAPLOTYPE Positive Normal [facility] Comment on above: Order Comment: Specgustavo harding Type: BLOOD SPECIMEN Ordering Facility: [facility] Address: [address] [place] [address] Performed By: #### C PIETER #### [facility] CLIA [id number] [address] [place] [address] HLA-DQA1 GENOTYPE HLA-DQA1*: 05, 01 [facility] Comment on above: Order Comment: Speci men Type: BLOOD SPECIMEN Ordering Facility: [facility] Address: [address] [place] [address] Performed By: #### C PIETER #### [facility] CLIA [id number] [address] [place] [address] [place] HLA-DQB1 GENOTYPE HLA-DQB1*: 02:, 06 Normal [facility] Comment on above: Order Comment: Jayme harding Type: BLOOD SPECIMEN Ordering Facility: [facility] Address: [address] [place] [address] Performed By: #### C PIETER #### [facility] CLIA [id number] [place] CELIAC SCREENon 12-26-2021 GLIAD DEAMIDATED IGA QUAL Negative Normal Negative, Test not Indicated [facility] Comment on above: Order Comment: Jayme harding Type: BLOOD SPECIMEN Ordering Facility: [facility] Address: [address] [place] [address] Result Comment: This is used as an aid in diagnosis of celiac disease. Clinical correlation is required. The following results were obtained with an [employer] QUANTA Lite Gliadin IgA DENISE Gliadin. Gliadin IgA values obtained with different manufacturers' assay methods may not be used interchangeably. The magnitude of the reported IgA levels cannot be correlated to an endpoint titer. Performed By: #### 1 798-8, 47037-5, 3016-3 #### [facility] CLIA [id number] [address] [place] Gliadin peptide IgA Qn (S) 2 Units Normal <20 [facility] Comment on above: Order Comment: Jayme harding Type: BLOOD SPECIMEN Ordering Facility: [facility] Address: [address] [place] [address] Performed By: #### 1 798-8, 02479-3, 3016-3 #### [facility] CLIA [id number] [address] [place], [place] [address] [place] [address] [place] INTERPRETATION No serological evidence of celiac disease, however, if celiac disease is clinically suspected and patient is not on gluten-free diet, histological diagnosis may be considered. HLA testing may help with risk assessment. Normal [facility] Comment on above: Order Comment: Jayme harding Type: BLOOD SPECIMEN Ordering Facility: [facility] Address: [address] [place] [address] Performed By: #### 1 798-8, 27340-5, 3016-3 #### [facility] CLIA [id number] [address] [place] [address] [facility] TRANSGLUTAMINASE IGA QUAL Negative Normal Negative, Test not Indicated [facility] Comment on above: Order Comment: Jayme harding Type: BLOOD SPECIMEN Ordering Facility: [facility] Address: [address] [place] [address] Result Comment: The following results were obtained with the [employer] Lite h-tTG IgA DENISE. h-tTG IgA values obtained with different manufacturers' assay methods may not be used interchangeable. The magnitude of the reported IgA levels cannot be correlated to an endpoint titer. This is used as an aid in diagnosis of celiac disease. Clinical correlation is required. Performed By: #### 1 798-8, 02588-6, 3 #### [facility] CLIA [id number] [address] [place] [address] tTG IgA Qn (S) 3 Units Normal <20 [facility] Comment on above: Order Comment: Jayme harding Type: BLOOD SPECIMEN Ordering Facility: [facility] Address: [address] [place] [address] Performed By: #### 1 798-8, 36473-2, 3 #### [facility] CLIA [id number] [address] [place] [address] [facility] Comp Metab 2000 Pnl SerPlon 12-26-2021 Bilirubin [Mass/Vol] 0.4 mg/dL Normal 0.2-1.3 [facility] Comment on above: Order Comment: Jayme harding Type: BLOOD SPECIMEN Ordering Facility: [facility] Address: [address] [place] [address] Performed By: #### 1 798-8, 73410-1, 3 #### [facility] CLIA [id number] [address] [place], [place] [address] [place] [address] Performed By: #### 5 0189-0 #### [facility] CLIA [id number] [address] [place] [address] [place] Comprehensive metabolic 2000 panelon 12-26-2021 Albumin [Mass/Vol] 4.1 g/dL Normal 3.9-4.9 [facility] Comment on above: Order Comment: Speci men Type: BLOOD SPECIMEN Ordering Facility: [facility] Address: [address] [place] [address] Performed By: #### 1 798-8, 96709-0, 3016-3 #### [facility] CLIA [id number] [address] [place] [address] [place] ALP [Catalytic activity/Vol] 121 U/L Normal 34-123 [facility] Comment on above: Order Comment: Jayme harding Type: BLOOD SPECIMEN Ordering Facility: [facility] Address: [address] [place] [address] Performed By: #### 1 798-8, 33999-5, 3016-3 #### [facility] CLIA [id number] [address] [place] [address] [place] ALT With P-5'-P [Catalytic activity/Vol] 8 U/L Normal 7-38 [facility] Comment on above: Order Comment: Nickyi men Type: BLOOD SPECIMEN Ordering Facility: [facility] Address: [address] [place] [address] Performed By: #### 1 798-8, 38579-1, 3016-3 #### [facility] CLIA [id number] [address] [place] [address] [place] Anion gap [Moles/Vol] 9 mmol/L Normal 9-18 [facility] Comment on above: Order Comment: Speci men Type: BLOOD SPECIMEN Ordering Facility: [facility] Address: [address] [place] [address] Performed By: #### 1 798-8, 93161-4, 3016-3 #### [facility] CLIA [id number] [address] [place] [address] [place] AST With P-5'-P [Catalytic activity/Vol] 15 U/L Normal 13-35 [facility] Comment on above: Order Comment: Speci men Type: BLOOD SPECIMEN Ordering Facility: [facility] Address: [address] [place] [address] Performed By: #### 1 798-8, 37762-9, 3016-3 #### [facility] CLIA [id number] [address] [place] [address] [place] Calcium [Mass/Vol] 10.0 mg/dL Normal 8.5-10.2 [facility] Comment on above: Order Comment: Speci men Type: BLOOD SPECIMEN Ordering Facility: [facility] Address: [address] [place] [address] Performed By: #### 1 798-8, 58861-2, 3016-3 #### [facility] CLIA [id number] [address] [place] [address] [place] Chloride [Moles/Vol] 105 mmol/L Normal 97-105 [facility] Comment on above: Order Comment: Speci men Type: BLOOD SPECIMEN Ordering Facility: [facility] Address: [address] [place] [address] Performed By: #### 1 798-8, 08077-7, 3016-3 #### [facility] CLIA [id number] [address] [place] [address] [place] CO2 [Moles/Vol] 28 mmol/L Normal 22-30 [facility] Comment on above: Order Comment: Speci men Type: BLOOD SPECIMEN Ordering Facility: [facility] Address: [address] [place] [address] Performed By: #### 1 798-8, 13959-6, 3016-3 #### [facility] CLIA [id number] [address] [place] [address] [place] Creatinine [Mass/Vol] 0.54 mg/dL Low 0.58-0.96 [facility] Comment on above: Order Comment: Speci men Type: BLOOD SPECIMEN Ordering Facility: [facility] Address: [address] [place] [address] Performed By: #### 1 798-8, 33689-6, 3016-3 #### [facility] CLIA [id number] [address] [place], [place] [id number] [place] ESTIMATED GLOMERULAR FILTRATION RATE 108 mL/min/1.73m??? Normal >=60 [facility] Comment on above: Order Comment: Jayme meaghan Type: BLOOD SPECIMEN Ordering Facility: [facility] Address: [address] [place] [address] Result Comment: Janae mated Glomerular Filtration Rate [...] actual GFR. Performed By: #### 1 798-8, 09149-0, 3016-3 #### [facility] CLIA [id number] [address] [place], [place] [id number] [place] Glucose [Mass/Vol] 94 mg/dL Normal 74-99 [facility] Comment on above: Order Comment: Jayme harding Type: BLOOD SPECIMEN Ordering Facility: [facility] Address: [address] [place] [address] Result Comment: The [place] Diabetes Association (ADA) provides guidance for cutoff [...] Standards of Medical Care in Diabetes 2016, [place] [employer] Association. Diabetes Care. 2016.39(Suppl 1). Performed By: #### 1 798-8, 40824-9, 3015-3 #### [facility] CLIA [id number] [address] [place] [address] [place] Potassium [Moles/Vol] 4.0 mmol/L Normal 3.7-5.1 [facility] Comment on above: Order Comment: Speci men Type: BLOOD SPECIMEN Ordering Facility: [facility] Address: [address] [place] [address] Performed By: #### 1 798-8, 12697-7, 3015-3 #### [facility] CLIA [id number] [address] [place] [address] [place] Protein [Mass/Vol] 6.9 g/dL Normal 6.3-8.0 [facility] Comment on above: Order Comment: Speci men Type: BLOOD SPECIMEN Ordering Facility: [facility] Address: [address] [place] [address] Performed By: #### 1 798-8, 53476-6, 3 #### [facility] CLIA [id number] [address] [place] [address] [place] Sodium [Moles/Vol] 142 mmol/L Normal 136-144 [facility] Comment on above: Order Comment: Speci men Type: BLOOD SPECIMEN Ordering Facility: [facility] Address: [address] [place] [address] Performed By: #### 1 798-8, 32662-4, 3 #### [facility] CLIA [id number] [address] [place] [address] [place] Urea nitrogen [Mass/Vol] 8 mg/dL Normal 7-21 [facility] Comment on above: Order Comment: Speci men Type: BLOOD SPECIMEN Ordering Facility: [facility] Address: [address] [place] [address] Performed By: #### 1 798-8, 23756-5, 3015-3 #### [facility] CLIA [id number] [address] [place] [address] [place] ESR Westergren method (Bld) [Velocity]on 12-26-2021 ESR (Bld) [Velocity] 19 mm/h Normal 0-30 [facility] Comment on above: Order Comment: Speci meaghan Type: BLOOD SPECIMEN Ordering Facility: [facility] Address: [address] [place] [address] Performed By: #### 4 537-7 #### [facility] CLIA [id number] [address] [place] IgA SerPl-mCncon 12-26-2021 IgA [Mass/Vol] 126 mg/dL Normal 70-400 [facility] Comment on above: Order Comment: Jayme [facility] Type: BLOOD SPECIMEN Ordering Facility: [facility] Address: [address] [place] [address] Performed By: #### 2 458-8 #### [facility] CLIA [id number] [address] [place] [address] [place] bilirubin panel [Ma ss/Vol]on 12-26-2021 Bilirubin.conjugated [Mass/Vol] mg/dL Normal <0.2 [facility] Comment on above: Order Comment: Jayme harding Type: BLOOD SPECIMEN Ordering Facility: [facility] Address: [address] [place] [address] Performed By: #### 5 0189-0 #### [facility] CLIA [id number] [address] [place] [address] [place] Bilirubin.indirect [Mass/Vol] mg/dL Normal <1.4 [facility] Comment on above: Order Comment: Jayme harding Type: BLOOD SPECIMEN Ordering Facility: [facility] Address: [address] [place] [address] Performed By: #### 5 0189-0 #### [facility] CLIA [id number] [address] [place] [address] [place] TSH SerPl-aCncon 12-26-2021 TSH Qn 1.490 m[IU]/L Normal 0.270-4.200 [facility] Comment on above: Order Comment: Speci men Type: BLOOD SPECIMEN Ordering Facility: [facility] Address: [address] [place] [address] Performed By: #### 1 798-8, 52450-8, 3016-3 #### [facility] CLIA [id number] [address] [place], [place] [id number] [facility] CNOVon 12-02-2021 CNOV Office Visit (AGFAMPLE) DIOR CARVAJAL ([id number]) 1965 F Date Time Provider Department 12/02/21 [...] history and updated the [facility]. Pt has history of chronic arthritis She [...] No wheez (more content not included)... Normal [facility] SCREENINGon 06-22-2020 [facility] SCREENING Final Report DATE OF EXAM: Jun 22 2020 11:05AM LDW [id number] - [facility] SCREENING / PROCEDURE REASON: Encounter for screening mammogram for malignant neoplasm of breast Physician Interpretation #[id number] - [facility] SCREENING BILATERAL DIGITAL SCREENING MAMMOGRAM WITH CAD: 06/22/2020 HISTORY: / Screening Mammogram-Patient reports NO symptoms. RESULT: TECHNIQUE: The study was acquired using full field digital technology and interpreted from soft copy. Current study was also evaluated with a Computer Aided Detection (CAD). Comparison is made to exams dated: 06/05/2019 mammogram, 05/23/2018 mammogram, 05/17/2017 mammogram, 05/03/2017 mammogram, 01/19/2016 mammogram, and 01/06/2016 mammogram - [facility]. The tissue of both breasts is heterogeneously dense. This may lower the sensitivity of mammography. No significant masses, calcifications, or other findings are seen in either breast. There has been no significant interval change. IMPRESSION: NEGATIVE There is no mammographic evidence of malignancy. A 1 year screening mammogram is recommended. Ricky morrison/zara:06/22/2020 11:41:39 Dental Insurance Coordinator(s): Justin Hopper)(M), [facility] letter sent: Normal over 40 [...] Health, Family Medicine, and Medical/Surgical Oncology, the [facility] has carefully reviewed the data and reached [...] their providers when to stop screening mammograms. Hotel Front Office Manager: Zara Transcribe Date/Time: Jun 22 2020 10:34A Dictated by : RICKY OROPEZA MD This examination was interpreted and the report reviewed and electronically signed by: RICKY OROPEZA MD on Jun 22 2020 11:41AM EST Normal [facility] Vital Signs Date Time Vital Sign Value Performing Clinician Facility 11-05-2024 10:03-0400 Body temperature 97.59 [degF] Mini Whyte MD Work Phone: [facility] 11-05-2024 10:03-0400 Diastolic blood pressure 54 mm[Hg] Mini Whyte MD Work Phone: [facility] 11-05-2024 10:03-0400 Heart rate 67 /min Mini Whyte MD Work Phone: [facility] 11-05-2024 10:03-0400 Respiratory rate 17 /min Mini Whyte MD Work Phone: [facility] 11-05-2024 10:03-0400 SaO2% (BldA) [Mass fraction] 97 % Mini Whyte MD Work Phone: [facility] 11-05-2024 10:03-0400 Systolic blood pressure 104 mm[Hg] Mini Whyte MD Work Phone: [facility] 07-31-2024 09:19-0400 Diastolic blood pressure 58 mm[Hg] Mini Whyte MD Work Phone: [facility] Comment on above: notified 07-31-2024 09:19-0400 Systolic blood pressure 81 mm[Hg] Mini Whyte MD Work Phone: [facility] Comment on above: md notified 07-31-2024 09:14-0400 Body temperature 98.2 [degF] Mini Whyte MD Work Phone: [facility] 07-31-2024 09:14-0400 Heart rate 59 /min Mini Whyte MD Work Phone: [facility] Comment on above: notified 07-31-2024 09:14-0400 Respiratory rate 17 /min Mini Whyte MD Work Phone: [facility] 07-31-2024 09:14-0400 SaO2% (BldA) [Mass fraction] 96 % Mini Whyte MD Work Phone: [facility] 05-26-2024 14:38-0500 Diastolic blood pressure 50 mm[Hg] Dior Anguiano MD Work Phone: [facility] 05-26-2024 14:38-0500 Heart rate 64 /min Dior Anguiano MD Work Phone: [facility] 05-26-2024 14:38-0500 SaO2% (BldA) [Mass fraction] 99 % Dior Anguiano MD Work Phone: [facility] 05-26-2024 14:38-0500 Systolic blood pressure 107 mm[Hg] Dior Anguiano MD Work Phone: [facility] 05-26-2024 13:23-0500 Body temperature 97.81 [degF] Mini Whyte MD Work Phone: [facility] 05-26-2024 13:23-0500 Diastolic blood pressure 50 mm[Hg] Mini Whyte MD Work Phone: [facility] 05-26-2024 13:23-0500 Heart rate 64 /min Mini Whyte MD Work Phone: [facility] 05-26-2024 13:23-0500 Respiratory rate 17 /min Mini Whyte MD Work Phone: [facility] 05-26-2024 13:23-0500 SaO2% (BldA) [Mass fraction] 99 % Mini Whyte MD Work Phone: [facility] 05-26-2024 13:23-0500 Systolic blood pressure 107 mm[Hg] Mini Whyte MD Work Phone: [facility] 02-28-2024 14:51-0500 Body temperature 98.01 [degF] Mini Whyte MD Work Phone: [facility] 02-28-2024 14:51-0500 Diastolic blood pressure 39 mm[Hg] Mini Whyte MD Work Phone: [facility] Comment on above: md notified 02-28-2024 14:51-0500 Heart rate 71 /min Mini Whyte MD Work Phone: [facility] 02-28-2024 14:51-0500 Respiratory rate 17 /min Mini Whyte MD Work Phone: [facility] 02-28-2024 14:51-0500 SaO2% (BldA) [Mass fraction] 98 % Mini Whyte MD Work Phone: [facility] 02-28-2024 14:51-0500 Systolic blood pressure 107 mm[Hg] Mini Whyte MD Work Phone: [facility] Comment on above: md notified 02-10-2024 20:22-0500 Body temperature 97.81 [degF] [address] [employer]ATIC [employer]ING LATHE SETTER.[employer] Work Phone: [facility] 02-10-2024 20:22-0500 Diastolic blood pressure 61 mm[Hg] Kyle Lane APRN.[employer]P MECHANIC Work Phone: [facility] 02-10-2024 20:22-0500 Heart rate 78 /min Kyle Lane APRN.[employer] MECHANIC Work Phone: [facility] 02-10-2024 20:22-0500 Respiratory rate 18 /min Kyle [address] APRN.[employer] MECHANIC Work Phone: [facility] 02-10-2024 20:22-0500 SaO2% (BldA) [Mass fraction] 97 % Kyle [address] APRN.[employer] MECHANIC Work Phone: [facility] 02-10-2024 20:22-0500 Systolic blood pressure 115 mm[Hg] Kyle Lane APRN.A[employer]P MECHANIC Work Phone: [facility] 02-07-2024 11:34-0500 Body temperature 98.49 [degF] Hayder Bone DPM Work Phone: [facility] 02-07-2024 11:34-0500 Diastolic blood pressure 70 mm[Hg] Hayder Bone DPM Work Phone: [facility] 02-07-2024 11:34-0500 Heart rate 74 /min Hayder Bone DPM Work Phone: [facility] 02-07-2024 11:34-0500 Respiratory rate 18 /min Hayder Bone DPM Work Phone: [facility] 02-07-2024 11:34-0500 SaO2% (BldA) [Mass fraction] 98 % Hayder Bone DPM Work Phone: [facility] 02-07-2024 11:34-0500 Systolic blood pressure 105 mm[Hg] Hayder Bone DPM Work Phone: [facility] 01-17-2024 10:22-0400 Body mass index (BMI) [Ratio] 29.14 kg/m2 Mini Whyte MD Work Phone: [facility] 01-17-2024 10:22-0400 Body temperature 98.2 [degF] Mini Whyte MD Work Phone: [facility] 01-17-2024 10:22-0400 Body weight 81.9 kg Mini Whyte MD Work Phone: [facility] 01-17-2024 10:22-0400 Diastolic blood pressure 49 mm[Hg] Mini Whyte MD Work Phone: [facility] Comment on above: provider made aware 01-17-2024 10:22-0400 Heart rate 68 /min Mini Whyte MD Work Phone: [facility] 01-17-2024 10:22-0400 Respiratory rate 20 /min Mini Whyte MD Work Phone: [facility] 01-17-2024 10:22-0400 SaO2% (BldA) [Mass fraction] 100 % Mini Whyte MD Work Phone: [facility] Comment on above: 01-17-2024 10:22-0400 Systolic blood pressure 104 mm[Hg] Mini Whyte MD Work Phone: [facility] Comment on above: provider made aware 01-14-2024 18:26-0400 Body temperature 97.2 [degF] Kyle Lane APRN.A&P MECHANIC Work Phone: [facility] 01-14-2024 18:26-0400 Diastolic blood pressure 79 mm[Hg] Kyle Lane APRN.A&P MECHANIC Work Phone: [facility] 01-14-2024 18:26-0400 Heart rate 77 /min Kyle Lane APRN.A&P MECHANIC Work Phone: [facility] 01-14-2024 18:26-0400 Respiratory rate 18 /min Kyle Lane APRN.A&P MECHANIC Work Phone: [facility] 01-14-2024 18:26-0400 SaO2% (BldA) [Mass fraction] 92 % Kyle Lane APRN.A&P MECHANIC Work Phone: [facility] 01-14-2024 18:26-0400 Systolic blood pressure 127 mm[Hg] Kyle Lane APRN.A&P MECHANIC Work Phone: [facility] 12-06-2023 11:16-0400 Body temperature 98.49 [degF] Hayder Smitha DPM Work Phone: [facility] 12-06-2023 11:16-0400 Diastolic blood pressure 70 mm[Hg] Hayder Smitha DPM Work Phone: [facility] 12-06-2023 11:16-0400 Heart rate 77 /min Hayder Smitha DPM Work Phone: [facility] 12-06-2023 11:16-0400 Respiratory rate 18 /min Hayder Smitha DPM Work Phone: [facility] 12-06-2023 11:16-0400 SaO2% (BldA) [Mass fraction] 99 % Hayder Smitha DPM Work Phone: [facility] 12-06-2023 11:16-0400 Systolic blood pressure 122 mm[Hg] Hayder Smitha DPM Work Phone: [facility] 10-04-2023 14:22-0400 Body temperature 98.4 [degF] Hayder Smitha DPM Work Phone: [facility] 10-04-2023 14:22-0400 Diastolic blood pressure 70 mm[Hg] Hayder Smitha DPM Work Phone: [facility] 10-04-2023 14:22-0400 Heart rate 72 /min Hayder Smitha DPM Work Phone: [facility] 10-04-2023 14:22-0400 Respiratory rate 18 /min Hayder Smitha DPM Work Phone: [facility] 10-04-2023 14:22-0400 SaO2% (BldA) [Mass fraction] 99 % Hayder Smitha DPM Work Phone: [facility] 10-04-2023 14:22-0400 Systolic blood pressure 118 mm[Hg] Hayder Smitha DPM Work Phone: [facility] 07-26-2023 19:19-0400 Body temperature 98.4 [degF] Hyader Smitha DPM Work Phone: [facility] 07-26-2023 19:19-0400 Diastolic blood pressure 70 mm[Hg] Hayder Smitha DPM Work Phone: [facility] 07-26-2023 19:19-0400 Heart rate 78 /min Hayder Smitha DPM Work Phone: [facility] 07-26-2023 19:19-0400 Respiratory rate 18 /min Hayder Smitha DPM Work Phone: [facility] 07-26-2023 19:19-0400 SaO2% (BldA) [Mass fraction] 99 % Hayder Smitha DPM Work Phone: [facility] 07-26-2023 19:19-0400 Systolic blood pressure 117 mm[Hg] Hayder Smitha DPM Work Phone: [facility] 05-24-2023 17:38-0500 Body temperature 97 [degF] Hayder Smitha DPM Work Phone: [facility] 05-24-2023 17:38-0500 Diastolic blood pressure 70 mm[Hg] Hayder Smitha DPM Work Phone: [facility] 05-24-2023 17:38-0500 Heart rate 70 /min Hayder Smitha DPM Work Phone: [facility] 05-24-2023 17:38-0500 Respiratory rate 18 /min Hayder Smitha DPM Work Phone: [facility] 05-24-2023 17:38-0500 SaO2% (BldA) [Mass fraction] 99 % Hayder Smitha DPM Work Phone: [facility] 05-24-2023 17:38-0500 Systolic blood pressure 115 mm[Hg] Hayder Smitha DPM Work Phone: [facility] 11-02-2022 09:24-0400 Body temperature 97.81 [degF] Hayder Smitha DPM Work Phone: [facility] 11-02-2022 09:24-0400 Diastolic blood pressure 70 mm[Hg] Hayder Smitha DPM Work Phone: [facility] 11-02-2022 09:24-0400 Heart rate 70 /min Hayder Smitha DPM Work Phone: [facility] 11-02-2022 09:24-0400 Respiratory rate 18 /min Hayder Smitha DPM Work Phone: [facility] 11-02-2022 09:24-0400 SaO2% (BldA) [Mass fraction] 99 % Hayder Smitha DPM Work Phone: [facility] 11-02-2022 09:24-0400 Systolic blood pressure 110 mm[Hg] Hayder Smitha DPM Work Phone: [facility] 08-24-2022 15:31-0400 Body temperature 97.5 [degF] Hayder Smitha DPM Work Phone: [facility] 08-24-2022 15:31-0400 Diastolic blood pressure 70 mm[Hg] Hayder Smitha DPM Work Phone: [facility] 08-24-2022 15:31-0400 Heart rate 77 /min Hayder Bone DPM Work Phone: [facility] 08-24-2022 15:31-0400 Respiratory rate 17 /min Hayder Bone DPM Work Phone: [facility] 08-24-2022 15:31-0400 SaO2% (BldA) [Mass fraction] 99 % Hayder Bone DPM Work Phone: [facility] 08-24-2022 15:31-0400 Systolic blood pressure 110 mm[Hg] Hayder Millerert DPM Work Phone: [facility] 05-25-2022 11:07-0500 Body height 167.6 cm Leela Sheets DO Work Phone: [facility] 05-25-2022 11:07-0500 Body temperature 98.1 [degF] Leela Sheets DO Work Phone: [facility] 05-25-2022 11:07-0500 Body weight 79.83 kg Leela Sheets DO Work Phone: [facility] 05-25-2022 11:07-0500 Diastolic blood pressure 70 mm[Hg] Leela Sheets DO Work Phone: [facility] 05-25-2022 11:07-0500 Heart rate 87 /min Leela Sheets DO Work Phone: [facility] 05-25-2022 11:07-0500 SaO2% (BldA) [Mass fraction] 93 % Leela Sheets DO Work Phone: [facility] 05-25-2022 11:07-0500 Systolic blood pressure 110 mm[Hg] Leela Sheets DO Work Phone: [facility] 03-29-2022 10:35-0500 Body height 167.6 cm Elise Coyner [employer]ATIC SPINNING LATHE SETTER.A[employer]P MECHANIC Work Phone: [facility] 03-29-2022 10:35-0500 Body weight 79.38 kg Elise Coyner [employer]ATIC SPINNING LATHE SETTER.A[employer]P MECHANIC Work Phone: [facility] 02-24-2022 10:51-0500 Body height 167.6 cm Leela Sheets DO Work Phone: [facility] 02-24-2022 10:51-0500 Body temperature 97.81 [degF] Leela Sheets DO Work Phone: [facility] 02-24-2022 10:51-0500 Body weight 80.74 kg Leela Sheets DO Work Phone: [facility] 02-24-2022 10:51-0500 Diastolic blood pressure 68 mm[Hg] Leela Sheets DO Work Phone: [facility] 02-24-2022 10:51-0500 Heart rate 74 /min Leela Sheets DO Work Phone: [facility] 02-24-2022 10:51-0500 Respiratory rate 16 /min Leela Sheets DO Work Phone: [facility] 02-24-2022 10:51-0500 SaO2% (BldA) [Mass fraction] 93 % Leela Sheets DO Work Phone: [facility] 02-24-2022 10:51-0500 Systolic blood pressure 118 mm[Hg] Leela Sheets DO Work Phone: [facility] Encounters Encounter Date Encounter Type Care Provider Facility Start: 12-02-[address] Everett Cantor MD -[facility] Start: 12-02-2024 End: 12-02-2024 ambulatory Everett CURRIE Facility:[facility] Start: 11-19-2024 ambulatory Everett CURRIE Facil ity:[facility] Start: 11-19-[address] Everett Cantor MD -[facility] Start: 11-18-2024 End: 11-18-[address] Josi Garcia MD -[facility] Start: 11-18-2024 End: 11-18-[address] Everett Cantor MD -[facility] Start: 11-18-2024 End: 11-18-2024 ambulatory Everett CURRIE Facility:[facility] Start: 11-10-2024 End: 11-10-2024 Orders Only Mini Whyte MD Work Phone: [facility] Comment on above: Glioblastoma (HCC) ( Primary Dx) Start: 11-07-2024 End: 11-13-2024 Telephone encounter Mini Whyte MD Work Phone: [facility] Comment on above: MARYJANE 2-4 weeks MARYJANE 3 months Start: 11-06-2024 End: 11-06-2024 ambulatory LILLIE HORTON Facility:[facility] Start: 11-06-2024 End: 11-06-2024 Patient encounter procedure Lillie Horton MD Work Phone: [facility] Comment on above: 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); Spasticity; History of brain tumor; History of stroke Start: 11-05-2024 End: 11-05-2024 ambulatory [facility] Facility:[facility] Start: 11-05-2024 End: 11-05-2024 Patient encounter procedure Mini Whyte MD Work Phone: [facility] Comment on above: Astrocytoma brain tu mor (HCC) (Primary Dx); Spasticity; Cognitive decline Start: 11-04-2024 ambulatory [facility] Facility:[facility] Start: 11-04-2024 End: 11-04-2024 Subsequent hospital visit by physician [employer] [employer] [facility] W[facility] (I-Stat/1.5t) Work Phone: Radiology Comment on above: 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 Everett Cantor MD -[facility] Start: 08-13-2024 End: 08-13-[address] Josi Garcia MD [facility] Work Phone: Start: 08-13-2024 End: 08-13-[address] Everett Cantor MD -[facility] Start: 08-13-[address] Everett Cantor MD -[facility] Start: 08-13-2024 End: 08-13-2024 ambulatory Everett Cantor OLS Facility:[facility] Start: 08-08-2024 End: 08-08-[address] Josi Garcia MD [facility] Work Phone: Start: 08-08-2024 End: 08-08-[address] Everett Cantor MD -[facility] Start: 08-07-2024 End: 08-08-2024 ambulatory Everett CURRIE Facility:[facility] Start: 08-07-[address] Josi Garcia MD -[facility] Start: 08-05-2024 End: 08-06-2024 Orders Only Mini Whyte MD Work Phone: [facility] Comment on above: Astrocytoma brain tu mor (HCC) (Primary Dx) MARYJANE 4 weeks Start: 07-31-2024 End: 07-31-2024 ambulatory MINI WHYTE Facility:[facility] Start: 07-31-2024 End: 07-31-2024 Patient encounter procedure Mini Whyte MD Work Phone: [facility] [place] Comment on above: Spasticity (Primary Dx); Astrocytoma brain tumor (HCC) Start: 07-25-2024 End: 09-24-2024 Follow-up encounter Mini Whyte MD Work Phone: [facility] [place] Start: 07-24-2024 ambulatory MINI WHYTE Facility:[facility] Start: 07-24-2024 End: 07-24-2024 Subsequent hospital visit by physician [employer] [facility] (I-Stat/1.5t) Work Phone: Radiology Comment on above: 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] Start: 06-27-2024 End: 06-27-2024 Telephone encounter Mini Whyte MD Work Phone: Hematology/Oncology Comment on above: MARYJANE 07/2024 Start: 06-12-2024 End: 11-12-2024 Telephone encounter Mini Whyte MD Work Phone: [facility] Start: 06-09-2024 End: 06-09-2024 Telephone encounter Diane Siu APRN.CNP Work Phone: [facility] Comment on above: Appointment Start: 05-28-2024 End: 05-28-2024 Orders Only Mini Whyte MD Work Phone: [facility] Comment on above: Anaplastic astrocyto ma (HCC) (Primary Dx) Start: 05-26-2024 End: 05-26-2024 ambulatory DIOR ANGUIANO Facility:[facility] Start: 05-26-2024 End: 05-26-2024 Office outpatient new [...] Telephone encounter Mini Whyte MD Work Phone: [facility] [place] Comment on above: MARYJANE 3-4 weeks Sign up for My chart MARYJANE 4 weeks Start: 05-26-2024 End: 05-26-2024 ambulatory SELF Facility:[facility] Start: 05-26-2024 End: 05-26-2024 Patient encounter procedure Mini Whyte MD Work Phone: [facility] [place] Comment on above: 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) (Primary Dx); Spondylosis of cervical joint; Cognitive decline; Mild cognitive impairment; Injury of cervical spinal cord, sequela (HCC); Quadriplegia (HCC); Hemiparesis, unspecified hemiparesis etiology, unspecified laterality (HCC); Pathological fracture, other site, initial encounter for fracture; Occlusion and stenosis of unspecified carotid artery; Muscle spasticity Start: 05-26-2024 End: 05-26-2024 ambulatory MINI WHYTE Facility:[facility] Start: 05-26-2024 End: 05-26-2024 Subsequent hospital visit by physician [facility] Comment on above: Allergy to intraveno us contrast media [Z91.041] 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] Start: 05-15-2024 End: 05-15-2024 Telephone encounter Mini Whyte MD Work Phone: Hematology/Oncology Comment on above: Patient Update Start: 05-13-2024 End: 07-13-2024 Follow-up encounter Mini Whyte MD Work Phone: [facility] [place] Start: 05-13-2024 End: 05-13-2024 Telephone encounter Mini Whyte MD Work Phone: [facility] [place] Start: 05-12-2024 End: 05-26-2024 Telephone encounter Mini Whyte MD Work Phone: [facility] [place] Comment on above: MARYJANE Add on for 05/26 Start: 05-09-2024 End: 05-09-2024 Telephone encounter Mini Whyte MD Work Phone: [facility] [place] Start: 05-08-2024 End: 05-08-2024 Telephone encounter Mini Whyte MD Work Phone: [facility] Start: 05-08-2024 End: 05-09-2024 ambulatory Mini Whyte MD Work Phone: [facility] Comment on above: 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) (Primary Dx); Allergy to intravenous contrast media; Anaplastic astrocytoma (HCC); Mild cognitive impairment; Cognitive decline; Spondylosis of cervical joint; Injury of cervical spinal cord, sequela (HCC); H/O laminectomy Start: 05-08-2024 End: 05-09-2024 Telemedicine consultation with patient Mini Whyte MD Work Phone: [facility] Start: 05-07-2024 End: 05-07-2024 Orders Only Mini Whyte MD Work Phone: [facility] Comment on above: Brain tumor (HCC) (P rimary Dx) Start: 05-02-2024 End: 05-02-2024 Telephone encounter Miin Whyte MD Work Phone: Hematology/Oncology Comment on above: Images requested MRA /MRI Start: 04-29-2024 End: 04-29-[address] Josi Garcia MD [facility] Work Phone: Start: 04-29-2024 End: 04-29-[address] Josi Garcia MD -MRI - [facility] Work Phone: Start: 04-29-2024 End: 04-29-2024 ambulatory [facility] Facility:[facility] Start: 04-11-2024 End: 04-11-2024 Telephone encounter Mini Whyte MD Work Phone: Hematology/Oncology Comment on above: Patient Update Start: 04-07-2024 ambulatory [facility] Facility:[facility] Start: 04-01-2024 End: 04-01-2024 Telephone encounter Mini Whyte MD Work Phone: [facility] Comment on above: Confirm appt for 04/02 Start: 03-31-2024 End: 03-31-2024 Telephone encounter Mini Whyte MD Work Phone: [facility] Comment on above: Pleating Supervisor - 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 Josi Garcia MD -[facility] Start: 03-31-2024 End: 03-31-2024 ambulatory Josi CURRIE Facility:[facility] Start: 03-28-2024 ambulatory Josi CURRIE Facili ty:[facility] Start: 03-28-[address] Josi Garcia MD -[facility] Start: 03-27-2024 End: 03-27-[address] Josi Garcia MD -[facility] Start: 03-27-2024 End: 03-27-2024 ambulatory Josi CURRIE Facility:[facility] Start: 03-24-2024 End: 03-24-2024 ambulatory Gerda Dee RN Work Phone: [facility] Comment on above: Facility change to [facility] Start: 03-24-2024 End: 03-24-2024 Telephone encounter Mini Whyte MD Work Phone: [facility] Comment on above: MRA 04/02/24- facility aware Allergy to intraveno us contrast media; Anaplastic astrocytoma (HCC); Mild cognitive impairment; Cognitive decline Start: 03-20-2024 End: 03-20-2024 ambulatory Zora Flores APRN.A&P MECHANIC Work Phone: [facility] Comment on above: Acute cystitis witho ut hematuria (Primary Dx) Start: 03-20-2024 End: 03-20-2024 Telemedicine consultation with patient Zora Flores APRN.A&P MECHANIC Work Phone: [facility] Start: 03-18-2024 End: 03-18-2024 ambulatory Zora Flores AUT[employer]AT[employer] SPINNING LATHE SETTER.A[employer]P MECHANIC Work Phone: [facility] Comment on above: Acute cystitis witho ut hematuria (Primary Dx) Start: 03-18-2024 End: 03-18-2024 Telemedicine consultation with patient Zora Flores APRN.A&P MECHANIC Work Phone: [facility] Start: 03-14-2024 End: 03-14-2024 ambulatory Gerda Dee RN Work Phone: [facility] Comment on above: Pathology slides and records requested Path slides not avai lable Start: 03-10-2024 End: 03-11-2024 Telephone encounter Mini Whyte MD Work Phone: [facility] Comment on above: Orders (Premedicatio n for contrast allergy) Start: 03-05-2024 End: 03-10-2024 Orders Only Mini Whyte MD Work Phone: [facility] Comment on above: Allergy to intraveno [...] Patient encounter procedure Macarena Bain Work Phone: [facility] Start: 03-04-2024 End: 03-06-2024 Progress Note Itri Joey Odell Work Phone: [facility] Start: 02-28-2024 End: 02-28-2024 Orders Only Mini Whyte MD Work Phone: [facility] Comment on above: Anaplastic astrocyto ma [...] 02-18-2024 End: 02-18-2024 Orders Only Zora Flores APRN.A&P MECHANIC Work Phone: [facility] Comment on above: Osteoarthritis invol ving multiple joints on both sides of body (Primary Dx) Start: 02-13-2024 End: 02-14-2024 ambulatory LEELA ESCOTO Facility:[facility] Start: 02-10-2024 End: 02-10-[address] JESSE.A&P MECHANIC Work Phone: [facility] Comment on above: Fall, initial encoun ter (Primary Dx) Start: 02-10-2024 End: 02-10-2024 Telemedicine consultation with patient Kyle Lane JESSE.A&P MECHANIC Work Phone: [facility] Start: 02-07-2024 End: 02-07-2024 Unlisted evaluation and management service Hayder Bone DPM Work Phone: [facility] London Campos [facility] Comment on above: Nail dystrophy (Prim josie Dx); Aspirin long-term use Start: 02-06-2024 End: 02-06-2024 Telephone encounter Mini Whyte MD Work Phone: [facility] Comment on above: Returning Patient's Call; Appointment Appointment confirma tion =facility updated Start: 01-24-2024 End: 01-24-2024 Refill Zora Flores APRN.A&P MECHANIC Work Phone: [facility] Start: 01-23-2024 End: 01-23-2024 Orders Only Mini Whyte MD Work Phone: Hematology/Oncology Comment on above: Astrocytoma (HCC) (P rimary Dx) Start: 01-21-2024 End: 02-01-2024 Telephone encounter Mini Whyte MD Work Phone: [facility] [place] Comment on above: MARYJANE week of 02/25/24 Appointment follow u p Start: 01-17-2024 End: 01-17-2024 Patient encounter procedure Mini Whyte MD Work Phone: [facility] [place] Comment on above: Anaplastic astrocyto ma (HCC) (Primary Dx); Hemiparesis, unspecified hemiparesis etiology, unspecified laterality (HCC); Mild cognitive impairment; Cognitive decline Start: 01-15-2024 End: 01-15-2024 ambulatory Gerda Dee RN Work Phone: [facility] Comment on above: Chart prep/record re view Start: 01-14-2024 End: 01-14-2024 ambulatory Kyle Mele MOLINA.A&P MECHANIC Work Phone: [facility] Comment on above: Fall, initial encoun ter (Primary Dx) Start: 01-14-2024 End: 01-14-2024 Telemedicine consultation with patient Kyle Lane JESSE.A&P MECHANIC Work Phone: [facility] Start: 01-08-2024 End: 01-08-2024 Telephone encounter [facility] Comment on above: Triage (Initial Call ) Start: 01-01-2024 End: 01-01-2024 ambulatory Zora Flores APRN.A&P MECHANIC Work Phone: [facility] Comment on above: Foul smelling urine (Primary Dx); Recurrent UTI Start: 01-01-2024 End: 01-03-2024 Patient encounter procedure Itri Joey Bain Work Phone: [facility] Start: 01-01-2024 End: 01-03-2024 Progress Note Itri A Odell Work Phone: [facility] [employer] Start: 01-01-2024 End: 01-01-2024 Telemedicine consultation with patient Zora Zacarias MOLINA.A&P MECHANIC Work Phone: [facility] Start: 12-25-2023 End: 12-25-2023 Subsequent hospital visit by physician [facility] Radiology Ct Scan Start: 12-24-2023 End: 12-24-2023 Telephone encounter Johanny Quinn RN Radiology Ct Scan Comment on above: Results; Appointment Start: 12-06-2023 End: 12-06-2023 ambulatory Zora Flores JESSE.A&P MECHANIC Work Phone: [facility] Comment on above: Osteoarthritis of mu ltiple joints, unspecified osteoarthritis type (Primary Dx); Essential hypertension; Chronic cervical pain Start: 12-06-2023 End: 12-06-2023 Telemedicine consultation with patient Zora Flores APRN.A&P MECHANIC Work Phone: [facility] Start: 12-06-2023 End: 12-10-2023 Unlisted evaluation and management service Hayder Bone DPM Work Phone: [facility] London Campos [facility] Comment on above: Nail dystrophy (Prim josie Dx); Aspirin long-term use Start: 11-29-2023 End: 11-29-2023 ambulatory Zorareza Flores APRN.A&P MECHANIC Work Phone: [facility] Comment on above: Foul smelling urine (Primary Dx) Start: 11-29-2023 End: 11-29-2023 Telemedicine consultation with patient Zora Flores APRN.A&P MECHANIC Work Phone: [facility] Start: 11-06-2023 ambulatory Zora Flores JESSE.A&P MECHANIC Work Phone: [facility] Comment on above: Leukocytosis, unspec ified type (Primary Dx); Confusion Start: 11-06-2023 Patient encounter procedure Johni Joey Bain Work Phone: [facility] Start: 11-06-2023 Progress Note Itri A Odell Work Phone: [facility] [employer] Start: 11-06-2023 Telemedicine consultation with patient Zora Flores APRN.A&P MECHANIC Work Phone: [facility] Start: 10-11-2023 ambulatory Zora Flores APRN.A&P MECHANIC Work Phone: [facility] Comment on above: Osteoarthritis of mu ltiple joints, unspecified osteoarthritis type (Primary Dx); Left hip pain; Chronic neck pain; Essential hypertension Start: 10-11-2023 Telemedicine consultation with patient Zora Flores AUTOMATIC SPINNING LATHE SETTER.A&P MECHANIC Work Phone: [facility] Start: 10-04-2023 Unlisted evaluation and management service Hayder Bone DPM Work Phone: Dr. London PRESSLEY Comment on above: Nail dystrophy (Prim josie Dx); Aspirin long-term use Start: 09-11-2023 Patient encounter procedure Itri A Odell Work Phone: [employer] Start: 09-11-2023 Progress Note Itri A Odell Work Phone: [employer] Start: 08-28-2023 ambulatory Zora Flores AUTOMATIC SPINNING LATHE SETTER.A&P MECHANIC Work Phone: [facility] Comment on above: Osteoarthritis of mu ltiple joints, unspecified osteoarthritis type (Primary Dx); Left hip pain Start: 08-28-2023 Telemedicine consultation with patient Zora Flores JESSE.A&P MECHANIC Work Phone: [facility] Start: 08-16-2023 ambulatory Zora Flores AUTOMATIC SPINNING LATHE SETTER.A&P MECHANIC Work Phone: [facility] Comment on above: Osteoarthritis of mu ltiple joints, unspecified osteoarthritis type (Primary Dx); Chronic neck pain; Essential hypertension Start: 08-16-2023 Telemedicine consultation with patient Zora Flores JESSE.A&P MECHANIC Work Phone: [facility] Start: 07-26-2023 Unlisted evaluation and management service Hayder Bone DPM Work Phone: Dr. London PRESSLEY Comment on above: Nail dystrophy (Prim josie Dx); Aspirin long-term use Start: 07-24-2023 Refill Zora Zacarias MOLINA.A&P MECHANIC Work Phone: [facility] Start: 06-27-2023 Patient encounter procedure Itri A Odell Work Phone: [facility] Start: 06-27-2023 Progress Note Itri A Odell Work Phone: [facility] Start: 06-19-2023 ambulatory Zora Zacarias AUTOMATIC SPINNING LATHE SETTER.A&P MECHANIC Work Phone: [facility] Comment on above: Osteoarthritis of mu ltiple joints, unspecified osteoarthritis type (Primary Dx); Chronic neck pain; Essential hypertension Start: 06-19-2023 Telemedicine consultation with patient Zora Flores JESSE.A&P MECHANIC Work Phone: [facility] Start: 05-24-2023 Unlisted evaluation and management service Hayder Bone DPM Work Phone: Dr. London Campos [facility] Comment on above: Nail dystrophy (Prim josie Dx); Aspirin long-term use Start: 05-03-2023 Patient encounter procedure Itri A Odell Work Phone: [facility] Start: 05-03-2023 Progress Note Itri A Odell Work Phone: [employer] Start: 02-28-2023 Patient encounter procedure Itri A Odell Work Phone: [facility] Start: 02-28-2023 Progress Note Itri A Odell Work Phone: [facility] Start: 02-13-2023 ambulatory Zora Flores AUTOMATIC SPINNING LATHE SETTER.A&P MECHANIC Work Phone: [facility] Comment on above: Osteoarthritis of mu ltiple joints, unspecified osteoarthritis type (Primary Dx); Chronic neck pain; Essential hypertension Start: 02-13-2023 Telemedicine consultation with patient Zora Flores AUTOMATIC SPINNING LATHE SETTER.A&P MECHANIC Work Phone: [facility] Start: 01-02-2023 Patient encounter procedure Itri A Odell Work Phone: [facility] Start: 01-02-2023 Progress Note Itri A Odell Work Phone: [facility] Start: 12-12-2022 ambulatory Zora Zacarias RUANON.A&P MECHANIC Work Phone: [facility] Comment on above: Osteoarthritis of mu ltiple joints, unspecified osteoarthritis type (Primary Dx); Chronic neck pain; Essential hypertension Start: 12-12-2022 Telemedicine consultation with patient Zora Flores APRN.A&P MECHANIC Work Phone: [facility] Start: 11-02-2022 Unlisted evaluation and management service Hayder Bone DPM Work Phone: Dr. London Campos [facility] Comment on above: Nail dystrophy (Prim josie Dx); Aspirin long-term use Start: 09-27-2022 Refill Zora Flores APRN.A&P MECHANIC Work Phone: [facility] Start: 09-12-2022 ambulatory Zora Flores APRN.A&P MECHANIC Work Phone: [facility] Comment on above: Osteoarthritis of mu ltiple joints, unspecified osteoarthritis type (Primary Dx); Essential hypertension; Chronic neck pain; Abnormal gait Start: 09-12-2022 Telemedicine consultation with patient Zora Flores APRN.A&P MECHANIC Work Phone: [facility] Start: 09-07-2022 ambulatory Zora Flores APRN.A&P MECHANIC Work Phone: [facility] Comment on above: Osteoarthritis of mu ltiple joints, unspecified osteoarthritis type (Primary Dx); Essential hypertension; Chronic neck pain; Abnormal gait OPENED IN ERROR (Iva riley Dx) Start: 09-07-2022 Telemedicine consultation with patient Zora Flores APRN.A&P MECHANIC Work Phone: [facility] Start: 08-29-2022 ambulatory Zora Flores APRN.A&P MECHANIC Work Phone: [facility] Comment on above: Osteoarthritis of mu ltiple joints, unspecified osteoarthritis type (Primary Dx); Essential hypertension; Chronic neck pain; Abnormal gait Start: 08-29-2022 Telemedicine consultation with patient Zora Flores APRN.A&P MECHANIC Work Phone: [facility] Start: 08-28-2022 Refill Zora Flores APRN.A&P MECHANIC Work Phone: [facility] Start: 08-25-2022 ambulatory Zora Flores APRN.A&P MECHANIC Work Phone: [facility] Comment on above: Essential hypertensi on (Primary Dx); Abnormal gait; Chronic cervical pain Start: 08-25-2022 Telemedicine consultation with patient Zora Flores AUTOMATIC SPINNING LATHE SETTER.A&P MECHANIC Work Phone: [facility] Start: 08-24-2022 Initial nursing faci lity care/day 25 minutes Hayder Bone DPM Work Phone: Dr. London Campos [facility] Comment on above: Pain due to onychomy cosis of toenail of right foot (Primary Dx); Pain due to onychomycosis of toenail of left foot; Aspirin long-term use Start: 08-23-2022 ambulatory Zora Flores AUTOMATIC SPINNING LATHE SETTER.A&P MECHANIC Work Phone: [facility] Comment on above: Essential hypertensi on (Primary Dx); Abnormal gait; Chronic cervical pain Start: 08-23-2022 Telemedicine consultation with patient Zora Flores AUTOMATIC SPINNING LATHE SETTER.A&P MECHANIC Work Phone: [facility] Start: 08-08-2022 ambulatory Zora Flores AUTOMATIC SPINNING LATHE SETTER.A&P MECHANIC Work Phone: [facility] Comment on above: Essential hypertensi on (Primary Dx); Abnormal gait; Chronic cervical pain Start: 08-08-2022 Telemedicine consultation with patient Zora Flores APRN.A&P MECHANIC Work Phone: [facility] Start: 08-07-2022 Patient encounter procedure Macarena Bain Work Phone: [facility] Start: 08-07-2022 Progress Note Itri A Odell Work Phone: [facility] Start: 08-04-2022 Telephone encounter Leela Escoto DO Work Phone: [facility] Comment on above: Patient Question Start: 07-31-2022 Refill Leela Villalba ets DO Work Phone: [facility] Comment on above: Refill Request Start: 07-19-2022 Telephone encounter Riley Palmer MA [facility] Comment on above: Appointment Start: 07-13-2022 Refill Leela C She ets DO Work Phone: [facility] Comment on above: Refill Request Start: 06-30-2022 Refill Leela C She ets DO Work Phone: [facility] Comment on above: Refill Request Start: 05-31-2022 Refill Leela C She ets DO Work Phone: [facility] Comment on above: Refill Request Start: 05-25-2022 Telephone encounter Leela C Sheets DO Work Phone: [facility] Comment on above: Medication Problem Start: 05-25-2022 End: 05-25-2022 ambulatory LEELA C SHEETS Facility:[facility] Start: 05-25-2022 End: 05-25-2022 Patient encounter procedure Leela C Sheets DO Work Phone: [facility] Comment on above: Essential hypertensi on (Primary Dx); Chronic cervical pain; Grief; Smoker; Encounter for immunization Start: 05-22-2022 Refill Leela C She ets DO Work Phone: [facility] Comment on above: Refill Request Start: 05-19-2022 Refill Leela C She ets DO Work Phone: [facility] Comment on above: Refill Request Start: 04-21-2022 Refill Leela C She ets DO Work Phone: [facility] Comment on above: Refill Request Start: 04-12-2022 End: 04-12-2022 Patient encounter procedure Elise Heck APRN.A&P MECHANIC Work Phone: Urology Comment on above: Overactive bladder ( Primary Dx); Urine retention; Frequent UTI; Atrophic vaginitis Start: 03-29-2022 End: 03-29-2022 Patient encounter procedure Elise Heck APRN.A&P MECHANIC Work Phone: [facility]rology Comment on above: Urine retention (Iva riley Dx); Acute cystitis without hematuria; Urge incontinence Start: 03-24-2022 Telephone encounter Kelvin rodarte PA-C Work Phone: [facility]rology Comment on above: Results Start: 03-23-2022 Telephone encounter Jair Turcios MD Work Phone: Urology Comment on above: ER Follow up appt Start: 03-22-2022 ambulatory Riley Palmer GEOFF [facility] Comment on above: ED OUTREACH (ED OUTR EACH/) Start: 03-20-2022 End: 03-21-2022 Emergency department patient visit LEELA C JEVON Facility:[facility] Start: 03-14-2022 Refill Leela C She ets DO Work Phone: [facility] Comment on above: Refill Request Start: 02-24-2022 End: 02-24-2022 ambulatory LEELA C JEVON Facility:[facility] Start: 02-24-2022 End: 02-24-2022 Patient encounter procedure Leela C Sheets DO Work Phone: [facility] Comment on above: Chronic cervical kalyan n (Primary Dx); Chronic abdominal pain; Smoker Start: 02-14-2022 Refill Leela C She ets DO Work Phone: [facility] Comment on above: Refill Request Start: 01-18-2022 ambulatory LEELA ESCOTO Facil ity:[facility] Start: 01-18-2022 End: 01-18-2022 Subsequent hospital visit by physician [facility] Comment on above: Generalized abdomina l pain [R10.84] Start: 01-11-2022 Refill Leela C She ets DO Work Phone: [facility] Comment on above: Refill Request Start: 12-29-2021 Refill Leela C She ets DO Work Phone: [facility] Comment on above: Refill Request Start: 12-26-2021 End: 12-27-2021 ambulatory FERNANDO NIETO Facility:[facility] Start: 12-14-2021 Refill Leela C She ets DO Work Phone: [facility] Start: 12-02-2021 End: 12-02-2021 ambulatory LEELA C SHEETS Facility:[facility] Start: 11-24-2021 Refill Leela C She ets DO Work Phone: [facility] Comment on above: Refill Request Start: 11-11-2021 Refill Leela C She ets DO Work Phone: [facility] Comment on above: Refill Request Start: 10-11-2021 Refill Leela C She ets DO Work Phone: [facility] Comment on above: Refill Request Start: 09-29-2021 Refill Leela C She ets DO Work Phone: [facility] Comment on above: Refill Request Start: 09-27-2021 Refill Leela C She ets DO Work Phone: [facility] Comment on above: Refill Request Start: 09-14-2021 Refill Leela C She ets DO Work Phone: [facility] Start: 08-26-2021 End: 08-26-2021 ambulatory LEELA C SHEETS Facility:[facility] Start: 08-08-2021 Refill Leela C She ets DO Work Phone: [facility] Comment on above: Refill Request Start: 07-11-2021 Refill Leela C She ets DO Work Phone: [facility] Comment on above: Refill Request Start: 06-27-2021 Refill Leela C She ets DO Work Phone: [facility] Comment on above: Refill Request Start: 06-23-2021 Telephone encounter Orin hanley MD Work Phone: [facility] Comment on above: Results Procedures Date Procedure Procedure Detail Performing Clinician Start: 11-19-2024 Urnls dip stick/tabl et reagent auto microscopy Dr. Josi Garcia MD Start: 11-19-[address] Obed Garcia MD Start: 11-04-2024 Mri brain brain stem w/o [...] 12-25-2023 Ct head/brain w/cont rast material Itri A Odell Work Phone: Start: 12-25-2023 Creatinine [Mass/vol ume] in Serum or Plasma [facility] Provider Start: 05-25-2022 PFIZER-BIONTECH COVI D-19 BIVALENT BOOSTER VACCINE, AGE 12+ YR Leela Escoto DO Work Phone: Start: 04-12-2022 Urnls dip stick/tabl et rgnt auto w/o microscopy Elise Heck AUTOMATIC SPINNING LATHE SETTER.A&P MECHANIC Work Phone: Start: 03-31-2022 Lipid 1996 panel - S brendon or Plasma Zora Flores AUTOMATIC SPINNING LATHE SETTER.A&P MECHANIC Work Phone: Start: 02-16-2021 Adult depression scr eening assessment Orin Smith MD Work Phone: Start: 06-22-2020 Mammography Orin henson MD Work Phone: Start: 05-05-2016 Colonoscopy Orin henson MD Work Phone: Plan of Treatment Date Care Activity Detail Author Start: 01-21-2039 RSV Vaccine (1 - 1-dose 75+ series) RSV Vaccine (1 - 1-dose 75+ series) [facility] Start: 01-21-2029 PNEUMOCOCCAL (3 - PPSV23 if available, else PCV20) PNEUMOCOCCAL (3 - PPSV23 if available, else PCV20) [facility] Start: 01-21-2029 PNEUMOCOCCAL (3 - PPSV23 or PCV20) PNEUMOCOCCAL (3 - PPSV23 or PCV20) [facility] Start: 01-21-2029 Pneumococcal vaccination [facility] Start: 02-20-2028 Urine microalbumin profile [facility] Start: 08-26-2026 Pneumococcal Vaccine: 50+ (3 of 3 - PCV20 or PCV21) Pneumococcal Vaccine: 50+ (3 of 3 - PCV20 or PCV21) [facility] Start: 06-23-2026 Lipid 1996 panel - Serum or Plasma Lipid Screening [facility] Start: 06-23-2026 Lipid panel Lipid Screening [facility] Start: 06-23-2026 LIPID SCREEN LIPID SCREEN [facility] Start: 05-05-2026 Colonoscopy COLONOSCOPY [facility] Start: 05-05-2026 COLORECTAL CANCER SCREENING COLORECTAL CANCER SCREENING [facility] Start: 05-05-2026 Screening for malignant neoplasm of colon [facility] Start: 07-31-2025 BP Controlled (<130/80) BP Controlled (<130/80) [facility] Start: 05-26-2025 BP Controlled (<130/80) BP Controlled (<130/80) [facility] Start: 03-20-2025 DIABETES SCREEN DIABETES SCREEN [facility] Start: 03-20-2025 Diabetes Screening Diabetes Screening [facility] Start: 03-09-2025 End: 12-05-2025 MR Brain WO and W contrast IV MRI BRAIN WO/W IVCON Radiology Routine Astrocytoma brain tumor (HCC) Spasticity Cognitive decline Expected: 03/09/2025, Expires: 12/05/2025 [facility] Work Phone: Comment on above: Expected: 03/09/2025, Expires: Start: 02-27-2025 BP Controlled (<130/80) BP Controlled (<130/80) [facility] Start: 02-09-2025 BP Controlled (<130/80) BP Controlled (<130/80) [facility] Start: 02-06-2025 BP Controlled (<130/80) BP Controlled (<130/80) [facility] Start: 2025 End: 2025 Patient encounter procedure 2025 9:45 AM EDT Office Visit [facility] [address] [place] [address] Lillie Horton MD [address] [place] [address] Spasticity follow up [facility] Comment on above: Spasticity follow up Start: 01-16-2025 BP Controlled (<130/80) BP Controlled (<130/80) [facility] Start: 01-13-2025 BP Controlled (<130/80) BP Controlled (<130/80) [facility] Start: 12-26-2024 DIABETES SCREEN DIABETES SCREEN [facility] Start: 12-05-2024 BP Controlled (<130/80) BP Controlled (<130/80) [facility] Start: 11-24-2024 Influenza vaccination [facility] Start: 11-06-2024 End: 11-06-2024 Patient encounter procedure 11/06/2024 1:00 PM EDT Office Visit [facility] [address] [place] [address] Lillie Horton MD [address] [place] [address] Spasticity [facility] Comment on above: Spasticity Start: 11-05-2024 End: 11-05-2024 Patient encounter procedure 11/05/2024 9:30 AM EDT Office Visit [facility] [place] [address] [place] [address] Mini Whyte MD [address] [address] Scheduling Request - Established Patient [facility] Comment on above: Scheduling Request - Established Patient Start: 11-04-2024 End: 11-04-2024 Patient encounter procedure 11/04/2024 8:30 AM EDT Appointment Radiology [address] [place], [place] [id number] Scheduling Request - Established Patient Radiology Comment on above: Scheduling Request - Established Patient Start: 10-03-2024 BP Controlled (<130/80) BP Controlled (<130/80) [facility] Start: 09-04-2024 End: 09-04-2024 Patient encounter procedure 09/04/2024 12:45 PM EDT Office Visit Neurology [address] [place] [address] Casper Haynes MD [address] [place] [address] [facility] Comment on above: [facility] Start: 07-31-2024 End: 07-31-2024 Patient encounter procedure 07/31/2024 9:00 AM EDT Office Visit [facility] [address] [place] [address] Mini Whyte MD [address] [address] Scheduling Request - Established Patient [facility] Comment on above: Scheduling Request - Established Patient Start: 07-25-2024 BP Controlled (<130/80) BP Controlled (<130/80) [facility] Start: 07-24-2024 End: 07-24-2024 Patient encounter procedure 07/24/2024 8:00 AM EDT Appointment Radiology [address] [place], [place] [id number] Scheduling Request - Established Patient Radiology Comment on above: Scheduling Request - Established Patient Start: 06-23-2024 DIABETES SCREEN DIABETES SCREEN [facility] Start: 06-17-2024 End: 06-17-2024 Patient encounter procedure 06/17/2024 11:00 AM EDT Office Visit [facility] [address] [place] [address] Ibrahima Clemens MD [address] [place] [address] Injury of cervical spinal cord, 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] [facility] Comment on above: Injury of cervical spinal cord, 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] Start: 06-09-2024 End: 06-09-2024 Patient encounter procedure 06/09/2024 1:20 PM EDT Office Visit [facility] [address] [address] Diane Siu, AUTOMATIC SPINNING LATHE SETTER.A[employer]P MECHANIC [address] [place] [address] spasticity [facility] Comment on above: spasticity Start: 06-04-2024 End: 06-04-2024 Patient encounter procedure 06/04/2024 1:00 PM EDT Office Visit [facility] [address] [place] [address] Scott Dumont MD [address] [place] [address] Time Frame: 2-4 weeks or best [facility] [place] Comment on above: Time Frame: 2-4 weeks or best Start: 05-26-2024 End: 05-26-2024 Patient encounter procedure 05/26/2024 2:30 PM EST Office Visit [facility] [address] [place] [address] Dior Anguiano MD [address] [facility] [id number] [place] [address] Carotid Stenosis [facility] Comment on above: Carotid Stenosis Start: 05-26-2024 End: 08-25-2024 LIPID PANEL, NONFASTING LIPID PANEL, NONFASTING Lab Routine Hyperlipidemia, unspecified hyperlipidemia type Expected: 05/26/2024, Expires: 08/25/2024 [facility] Comment on above: Expected: 05/26/2024, Expires: Start: 05-26-2024 End: 05-26-2024 Patient encounter procedure 05/26/2024 11:30 AM EST Office Visit [facility] [address] [place] [address] Mini Whyte MD [address] [address] Time Frame: week of 05/26 [facility] Comment on above: Time Frame: week of 05/26 Start: 05-26-2024 End: 05-26-2024 Patient encounter procedure MRI Q Comment on above: Diagnosis: 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] XR CERVICAL 2V FLEX/ EXT Start: 05-23-2024 BP Controlled (<130/80) BP Controlled (<130/80) [facility] Start: 05-08-2024 End: 05-08-2024 ambulatory 05/08/2024 11:00 AM EST [facility] [address] [place] [address] Mini Whyte MD [address] [address] MRA/ MRI results- patient is in a facility [facility] Comment on above: MRA/ MRI results- patient is in a facili ty Start: 04-07-2024 End: 04-07-2024 Patient encounter procedure 04/07/2024 1:30 PM EST Office Visit [facility] [address] [place] [address] Mini Whyte MD [address] [place] [address] Time Frame: next available [facility] Comment on above: Time Frame: next available Start: 04-02-2024 End: 04-02-2024 Patient encounter procedure [facility] Comment on above: Diagnosis: Allergy to intravenous contra st media [Z91.041] Start: 04-02-2024 End: 04-02-2024 Patient encounter procedure 04/02/2024 1:00 AM EST Appointment [facility] [address] [place] [address] Diagnosis: Allergy to intravenous contrast media [Z91.041] [facility] Comment on above: Diagnosis: Allergy to intravenous contra st media [Z91.041] Start: 03-26-2024 Medicare Advantage Annual Wellness Visit Medicare Advantage Annual Wellness Visit [facility] Start: 03-22-2024 BP Controlled (<130/80) BP Controlled (<130/80) [facility] Start: 02-28-2024 End: 02-28-2024 Patient encounter procedure 02/28/2024 1:30 PM EST Office Visit [facility] [place] [address] [place] [address] Mini Whyte MD [address] [address] Scheduling Request - Established Patient [facility] [place] Comment on above: Scheduling Request - Established Patient Start: 02-28-2024 End: 02-28-2024 Patient encounter procedure 02/28/2024 11:40 AM EST Appointment MRI Q [address] [address] [place] [address] Scheduling Request - Established Patient MRI Q Comment on above: Scheduling Request - Established Patient Start: 01-17-2024 End: 01-17-2024 Patient encounter procedure 01/17/2024 10:00 AM EDT Office Visit [facility] [place] [address] [place] [address] Mini Whyte MD [address] [place] [address] Time Frame: First available [facility] Comment on above: Time Frame: First available Start: 12-25-2023 End: 12-25-2023 Patient encounter procedure Radiology Ct Scan Comment on above: outside order scanned into patient's melissa rt Pt has contrast mariely rgy listed, in a nursing facility. Premedicating??-SCP 12/19 Start: 11-25-2023 Covid-19 Vaccine () Covid-19 Vaccine () [facility] Start: 11-25-2023 Covid-19 Vaccine () Covid-19 Vaccine () [facility] Start: 11-25-2023 Influenza vaccination [facility] Start: 11-03-2023 BP CONTROLLED (<130/80) BP CONTROLLED (<130/80) [facility] Start: 08-25-2023 BP CONTROLLED (<130/80) BP CONTROLLED (<130/80) [facility] Start: 05-26-2023 ANNUAL PCP TEAM CHRONIC DISEASE VISIT ANNUAL PCP TEAM CHRONIC DISEASE VISIT [facility] Start: 05-26-2023 BP CONTROLLED (<130/80) BP CONTROLLED (<130/80) [facility] Start: 03-26-2023 Behavioral Health Screening Behavioral Health Screening [facility] Start: 03-26-2023 Depression Assessment Depression Assessment [facility] Start: 03-25-2023 DEPRESSION ASSESSMENT DEPRESSION ASSESSMENT [facility] Comment on above: Postponed from 03/26/2022 (Declined at t his time) Start: 02-24-2023 ANNUAL PCP TEAM CHRONIC DISEASE VISIT ANNUAL PCP TEAM CHRONIC DISEASE VISIT [facility] Start: 02-24-2023 BP CONTROLLED (<130/80) BP CONTROLLED (<130/80) [facility] Start: 12-02-2022 ANNUAL PCP TEAM CHRONIC DISEASE VISIT ANNUAL PCP TEAM CHRONIC DISEASE VISIT [facility] Start: 12-02-2022 BP CONTROLLED (<130/80) BP CONTROLLED (<130/80) [facility] Start: 11-24-2022 Covid-19 Vaccine (6 - 2023-24 season) Covid-19 Vaccine ( season) [facility] Start: 11-24-2022 Influenza vaccination [facility] Start: 08-26-2022 ANNUAL PCP TEAM CHRONIC DISEASE VISIT ANNUAL PCP TEAM CHRONIC DISEASE VISIT [facility] Start: 08-26-2022 BP CONTROLLED (<130/80) BP CONTROLLED (<130/80) [facility] Start: 07-13-2022 End: 09-12-2022 Lipid 1996 panel - Serum or Plasma LIPID PANEL BASIC Lab Routine Pure hypercholesterolemia Expected: 07/13/2022, Expires: 09/12/2022 [facility] Work Phone: Comment on above: Expected: 07/13/2022, Expires: Start: 05-26-2022 ANNUAL PCP TEAM CHRONIC DISEASE VISIT ANNUAL PCP TEAM CHRONIC DISEASE VISIT [facility] Start: 05-26-2022 BP CONTROLLED (<130/80) BP CONTROLLED (<130/80) [facility] Start: 03-26-2022 DEPRESSION ASSESSMENT DEPRESSION ASSESSMENT [facility] Start: 02-16-2022 Adult depression screening assessment DEPRESSION SCREENING [facility] Start: 11-24-2021 Influenza vaccination INFLUENZA (#1) [facility] Start: 10-13-2021 COVID-19 VACCINE (5 - Booster for Pfizer series) COVID-19 VACCINE (5 - Booster for Pfizer series) [facility] Start: 06-22-2021 Mammography [facility] Start: 06-22-2021 Screening for malignant neoplasm of breast Mammogram Screening [facility] Start: 05-11-2021 COVID-19 VACCINE (4 - Booster for Pfizer series) COVID-19 VACCINE (4 - Booster for Pfizer series) [facility] Start: 03-26-2021 DEPRESSION ASSESSMENT DEPRESSION ASSESSMENT [facility] Start: 01-21-2009 COLOGUARD (FIT-DNA) COLOGUARD (FIT-DNA) [facility] Start: 01-21-[address] COLONOGRAPHY [facility] Start: 01-21-2009 FECAL OCCULT BLOOD FECAL OCCULT BLOOD [facility] Start: 01-21-2009 Screening for malignant neoplasm of colon [facility] Start: 01-21-2009 SIGMOIDOSCOPY SIGMOIDOSCOPY [facility] Start: 01-21-1982 Anxiety Screening Anxiety Screening [facility] Start: 01-21-1982 Depression Screening Depression Screening [facility] Start: 1965 HEPATITIS B (1 of 3 - 3-dose series) HEPATITIS B (1 of 3 - 3-dose series) [facility] Start: 1965 Hepatitis B Vaccine (1 of 3 - 3-dose series) Hepatitis B Vaccine (1 of 3 - 3-dose series) [facility] BLADDER SCAN BLADDER SCAN Pro cedures Routine Urine retention Ordered: 04/12/2022 [facility] Work Phone: Comment on above: Ordered: 04/12/2022 Debridement nail any method 1-5 DEBRIDEMENT OF NAIL(S), 1-5 Procedures Routine Pain due to onychomycosis of toenail of right foot Pain due to onychomycosis of toenail of left foot Aspirin long-term use Ordered: 08/24/[address] LONDON CAMPOS [facility] Work Phone: Comment on above: Ordered: 08/24/2022 Debridement nail any method 1-5 DEBRIDEMENT OF NAIL(S), 1-5 Procedures Routine Nail dystrophy Aspirin long-term use Ordered: 11/03/[address] LONDON CAMPOS [employer] Work Phone: Comment on above: Ordered: 11/03/2022 Debridement nail any method 1-5 DEBRIDEMENT OF NAIL(S), 1-5 Procedures Routine Nail dystrophy Aspirin long-term use Ordered: 05/25/[address] LONDON CAMPOS [employer] Work Phone: Comment on above: Ordered: 05/25/2023 Debridement nail any method 1-5 DEBRIDEMENT OF NAIL(S), 1-5 Procedures Routine Nail dystrophy Aspirin long-term use Ordered: 07/29/[address] LONDON CAMPOS [employer] Work Phone: Comment on above: Ordered: 07/29/2023 Debridement nail any method 1-5 DEBRIDEMENT OF NAIL(S), 1-5 Procedures Routine Nail dystrophy Aspirin long-term use Ordered: 10/07/[address] LONDON CAMPOS [employer] Work Phone: Comment on above: Ordered: 10/07/2023 Debridement nail any method 1-5 DEBRIDEMENT OF NAIL(S), 1-5 Procedures Routine Nail dystrophy Aspirin long-term use Ordered: 12/10/[address] LONDON CAMPOS [employer] Work Phone: Comment on above: Ordered: 12/10/2023 Debridement nail any method 1-5 DEBRIDEMENT OF NAIL(S), 1-5 Procedures Routine Nail dystrophy Aspirin long-term use Ordered: 02/07/[address] LONDON CAMPOS [employer] Work Phone: Comment on above: Ordered: 02/07/2024 End: 02-21-2025 MR Brain WO and W contrast IV MRI BRAIN WO/W IVCON Radiology Routine Astrocytoma (HCC) 1 Occurrences starting 01/23/2024 until 02/21/2025 [facility] Work Phone: Comment on above: 1 Occurrences starting 01/23/2024 until 02/21/2025 End: 04-03-2025 MR Brain WO and W contrast IV MRI BRAIN WO/W IVCON Radiology Routine Astrocytoma brain tumor (HCC) 1 Occurrences starting 03/04/2024 until 04/03/2025 [facility] Work Phone: Comment on above: 1 Occurrences starting 03/04/2024 until 04/03/2025 End: 06-27-2025 MR Brain WO and W contrast IV MRI BRAIN WO/W IVCON Radiology Routine Anaplastic astrocytoma (HCC) 1 Occurrences starting 05/28/2024 until 06/27/2025 [facility] Work Phone: Comment on above: 1 Occurrences starting 05/28/2024 until 06/27/2025 End: 09-04-2025 MR Brain WO and W contrast IV MRI BRAIN WO/W IVCON Radiology Routine Astrocytoma brain tumor (HCC) 1 Occurrences starting 08/05/2024 until 09/04/2025 [facility] Work Phone: Comment on above: 1 Occurrences starting 08/05/2024 until 09/04/2025 End: 12-10-2025 MR Brain WO and W contrast IV MRI BRAIN WO/W IVCON Radiology Routine Glioblastoma (HCC) 1 Occurrences starting 11/10/2024 until 12/10/2025 [facility] Work Phone: Comment on above: 1 Occurrences starting 11/10/2024 until 12/10/2025 End: 04-03-2025 MR Cervical spine WO and W contrast IV MRI CERVICAL SPINE WO/W IVCON Radiology Routine Allergy to intravenous contrast media Anaplastic astrocytoma (HCC) Mild cognitive impairment Cognitive decline Occlusion and stenosis of unspecified carotid artery Pathological fracture, other site, initial encounter for fracture 1 Occurrences starting 03/04/2024 until 04/03/2025 [facility] Comment on above: 1 Occurrences starting 03/04/2024 until 04/03/2025 End: 04-03-2025 MRA Head vessels WO contrast MRA BRAIN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 History MR-MRA Neck without Contrast - OVERREAD (Order #[id number]) on 05/13/2024 - Order Result History Report - Result Edited Result Information Status Provider Status Edited Result - FINAL (05/13/2024 8:39 AM) Ordered Exam Performed Date and Time 04/29/2024 Resulting Agency [facility] [address] Patient Images Get Images MR-MRA Neck without Contrast - OVERREAD: Patient Communication Not Released Not seen Patient Release Status: This result is not viewable by the patient. Recipient List for Orders Batch Status Sent From To Cc'd Forwarded To Results Sent 05/08/2024 10:08 AM Radiology Oru In Mini Whyte MD MR-MRA Neck without Contrast - OVERREAD [[id number]] Routing History Priority Sent On From To Message Type 05/08/2024 10:08 AM Radiology, Oru In Mini Whyte MD Results Order Report Order Details Results MR-Spine Cervical W/WO Contrast - OVERREAD (Acc#[id number] [facility]) (Order [id number]) Patient Info Patient Name Sex Dior Artis ([id number]) Female 1965 In Basket Actions Done Result [...] be discussed: Tumor Board discussion Images Reviewed: Agdq-sd-hkuias MR Angiogram of the Neck and MR [...] progression of cervical spondylosis from 2010 exam. Hotel Front Office Manager: PSCB Transcribe Date/Time: May 13 2024 8:25A [...] be discussed: Tumor Board discussion Images Reviewed: Luwt-ae-qpvwru MR Angiogram of the Neck and MR [...] vertebrae with counting from the craniocervical junction. Hotel Front [facility] Transcribe Date/Time: May 08 2024 9:40A Dictated by : KATTY DAI MD This examination was interpreted and the report reviewed and electronically signed by: KATTY DAI MD on May 08 2024 10:06AM EST Results-Findings Result History MR-Spine Cervical W/WO Contrast - OVERREAD (Order #[id number]) on 05/13/2024 - Order Result History Report - Result Edited Result Information Status Provider Status Edited Result - FINAL (05/13/2024 8:39 AM) Ordered Exam Performed Date and Time 04/29/2024 Resulting Agency [facility] [address] [facility] [address] Patient Images Get Images MR-Spine Cervical W/WO Contrast - OVERREAD: Patient Communication Not Released Not seen Patient Release Status: This result is not viewable by the patient. Recipient List for Orders Batch Status Sent From To Cc'd Forwarded To Results Sent 05/08/2024 10:08 AM Harmony Russ In Mini Whyte MD MR-Spine Cervical W/WO Contrast - OVERREAD [[id number]] Routing History Priority Sent On From To Message Type 05/08/2024 10:08 AM Harmony Russ In Mini Whyte MD Results Order Report Order Details [facility] 05-13-2024 Miscellaneous Notes Summary: Telephone communication of [...] Results MR-MRA Neck without Contrast - OVERREAD (Acc#[id number]) (Order [id number]) Patient Info Patient Name Sex Dior Artis ([id number]) Female 1965 In Basket Actions Done Result [...] be discussed: Tumor Board discussion Images Reviewed: Gqfr-gy-avzvvv MR Angiogram of the Neck and MR [...] spanning C5-C7 levels appears mildly progressed from 2009. Overall appearance suggests mild progression of C5-C7 cord myelomalacia. Moderate foraminal narrowing at bilateral C3-4 is mildly progressed from 2009. Otherwise no significant progression of cervical spondylosis from 2010 exam. Hotel Front Office Manager: PSCB Transcribe Date/Time: May 13 2024 8:25A [...] be discussed: Tumor Board discussion Images Reviewed: Eddr-ak-guxmet MR Angiogram of the Neck and MR [...] vertebrae with counting from the craniocervical junction. Hotel Front Office Manager[facility] Transcribe Date/Time: May 08 2024 9:40A Dictated by : KATTY DAI MD This examination was interpreted and the report reviewed and electronically signed by: KATTY DAI MD on May 08 2024 10:06AM EST Results-Findings Result History MR-MRA Neck without Contrast - OVERREAD (Order #[id number]) on 05/13/2024 - Order Result History Report - Result Edited Result Information Status Provider Status Edited Result - FINAL (05/13/2024 8:39 AM) Ordered Exam Performed Date and Time 04/29/2024 Resulting Agency DIVISION OF RADIOLOGY [address] [facility] [address] Patient Images Get Images MR-MRA Neck without Contrast - OVERREAD: Patient Communication Not Released Not seen Patient Release Status: This result is not viewable by the patient. Recipient List for Orders Batch Status Sent From To Cc'd Forwarded To Results Sent 05/08/2024 10:08 AM Radiology, Oru In Mini Whyte MD MR-MRA Neck without Contrast - OVERREAD [[id number]] Routing History Priority Sent On From To Message Type 05/08/2024 10:08 AM Radiology, Oru In Mini Whyte MD Results Order Report Order Details Results MR-Spine Cervical W/WO Contrast - OVERREAD ([id number]) (Order [id number]) Patient Info Patient Name Sex Dior Carvajal ([id number]) Female 1965 In Basket Actions Done Result [...] be discussed: Tumor Board discussion Images Reviewed: Cjgv-ys-fvptjc MR Angiogram of the Neck and MR [...] progression of cervical spondylosis from 2010 exam. Hotel Front Office Manager: MAGUI Transcribe Date/Time: May 13 2024 8:25A [...] be discussed: Tumor Board discussion Images Reviewed: Idbc-tw-umvvrg MR Angiogram of the Neck and MR [...] vertebrae with counting from the craniocervical junction. Hotel Front Office [facility] Transcribe Date/Time: May 08 2024 9:40A Dictated by : KATTY DAI MD This examination was interpreted and the report reviewed and electronically signed by: KATTY DAI MD on May 08 2024 10:06AM EST Results-Findings Result History MR-Spine Cervical W/WO Contrast - OVERREAD (Order #[id number]) on 05/13/2024 - Order Result History Report - Result Edited Result Information Status Provider Status Edited Result - FINAL (05/13/2024 8:39 AM) Ordered Exam Performed Date and Time 04/29/2024 Resulting Agency DIVISION OF RADIOLOGY [address] [place] [address] Patient Images Get Images MR-Spine Cervical W/WO Contrast - OVERREAD: Patient Communication Not Released Not seen Patient Release Status: This result is not viewable by the patient. Recipient List for Orders Batch Status Sent From To Cc'd Forwarded To Results Sent 05/08/2024 10:08 AM Harmony Russ In Mini Whyte MD MR-Spine Cervical W/WO Contrast - OVERREAD [[id number]] Routing History Priority Sent On From To Message Type 05/08/2024 10:08 AM Harmony Russ In Mini Whyte MD Results Order Report Order Details documented in this encounter [facility] 05-12-2024 Telephone encounter Note If possible can we add MRA brain and C- spine xray to be added to study for 05/26? She is coming from a facility if this could be added. [place], [place] If not, let us know and they will need to arrange through her facility. Thank you Gerda Scheduling Request - New Patient Time Frame: 2-4 weeks or best Orders: Consult to neurology- [place] (dementia) Provider or Provider Group: First available Visit type: In person Referring: Dr Spears Diagnosis: cognitive impairment Scheduling Request - New Patient Time Frame: 2-4 weeks or best Orders: Consult to neurology- [facility]ere[facility]vascular center Provider or Provider Group: First available Visit type: In person Referring: Dr Spaers Diagnosis: occlusion and stenosis of carotid artery [...] sister so they can arrange for transportation [facility] Work Phone: 05-12-2024 Miscellaneous Notes If possible can we add MRA brain and C- spine xray to be added to study for 05/26? She is coming from a facility if this could be added. [place], [place] If not, let us know and they will need to arrange through her facility. Thank you Gerda Scheduling Request - New Patient Time Frame: 2-4 weeks or best Orders: Consult to neurology- [facility] (dementia) Provider or Provider [...] arrange for transportation documented in this encounter [facility] 05-09-2024 Telephone encounter Note I called Katie [...] and left a VM on the other character impersonator, that I called: Long Tanner (Father) [phone] I will wait for them to call back. Mini Whyte MD [facility] 05-09-2024 Miscellaneous Notes I called Katie Hassan, [...] and left a VM on the other character impersonator, that I called: Long Tanner (Father) [phone] I will wait for them to call back. Mini Whyte MD documented in this encounter [facility] 05-08-2024 Note HNO ID: [id number] Author: MINI WHYTE MD Service: ? Author Type: Physician Type: Progress Notes Filed: 05/10/2024 14:12 Note Text: [facility] [place] [facility] NEURO-ONCOLOGY VIRTUAL VISIT NOTE This is a virtual visit using HIPAA compliant audio platform. It required patient-provider interaction for the medical decision making as documented below. I have communicated my name and active licensure. The patient's identity and physical location were verified at the time of this visit. Either the patient or their legal specialty sales representative has been informed of the [...] Surgery: R frontal lobe tumor resection at [facility]- ([id number]) Pathology: Anaplastic astrocytoma Neurosurgeon: Raul Tamez MD [facility] Neurosurgery , [address] [place] [address] Radiation oncologist: Unknown PER SISTER: ONLY HAD RADIATION. NEVER HAD CHEMO However on some [facility] Notes is says - patient had chemo-radiation. 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 Again, the history is limited because we have limited records. SOCIAL: New Address (05/08/24) : [address] [place] [address], [place] [address] -Sister Laureen SARGENT Therapy Status Data Form [...] 3 doses fo (more content not included)... [facility] 05-08-2024 History of Present illness Narrative Images from the original note were not included. [facility] [place] [facility] NEURO-ONCOLOGY VIRTUAL VISIT NOTE This is a virtual visit using HIPAA compliant audio platform. It required patient-provider interaction for the medical decision making as documented below. I have communicated my name and active licensure. The patient's identity and physical location were verified at the time of this visit. Either the patient or their legal specialty sales representative has been informed of the [...] Surgery: R frontal lobe tumor resection at [facility]- ([id number]) Pathology: Anaplastic astrocytoma Neurosurgeon: Raul Tmaez MD [facility] , [address] [place], [place] Radiation oncologist: Unknown PER SISTER: ONLY HAD RADIATION. NEVER HAD CHEMO However on some [facility] Notes is says - patient had chemo-radiation. 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 Again, the history is limited because we have limited records. SOCIAL: New Address (05/08/24) : [address] [place] [id number] -Sister Laureen SARGENT Therapy Status Data Form [...] 1.00 - 4.00 k/uL 1.92 1.95 Abs Real <0.87 k/uL 0.44 0.72 Abs Eosin <0.46 [...] & HISTORY: Right craniotomy brain tumor, 04/30/92 [facility] Final Diagnosis FINAL DIAGNOSIS: A,B,C&D. "Brain tumor": Anaplastic astrocytoma. [facility] Nonchartable [id number] R Signed-Out [facility] Nonchartable A. FS-BRAIN TUMOR Collected: 05/18/1992 Received: 05/18/1992 B. BRAIN TUMOR Collected: 05/18/1992 Received: 05/18/1992 C. brain tumor Collected: 05/18/1992 Received: 05/18/1992 D. BRAIN TUMOR Collected: 05/18/1992 Received: 05/18/1992 SNOMED: [id number] Imaging: [facility] Procedure Notes - documented in this [...] abnormality. Age advanced moderate parenchymal volume loss. Hotel Front Office Manager: MAGUI Transcribe Date/Time: Feb 28 2024 2:24P [...] Consider follow-up MRI brain to reassure stability. Hotel Front Office [facility] Transcribe Date/Time: Mar 04 2024 11:20A [...] vertebrae with counting from the craniocervical junction. Hotel Front Office Manager: MAGUI Transcribe Date/Time: May 08 2024 9:40A Dictated by : KATTY DAI MD Assessment & Plan Mrs. Carvajal, is a 58 YO RHF, per records, the patient had back on 04/30/1992 Surgery: For a right frontal lobe tumor resection at [facility] ([id number]). 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 Per the records clear neurosurgeon is Dashawn Montelongo MD [facility] Neurosurgery. Her sister confirmed today, that per her own recollection the patient ONLY HAD RADIATION AND NEVER HAD CHEMO. However on some [facility] Notes it says - "patient had [...] records of her brain tumor history from [facility]. -Obtain, the actual pathology, from [facility] if possible, for neuro pathology review at [facility]. -MRI brain w and w/o + perfusion in 3 months time. MRI to be done at [facility]. Booked for 05/26/24. I ordered MRA [...] see the patient, at least 50% of xzad-li-voeg patient care, completing clinical documentation, obtaining and/or reviewing separately obtained history, performing a medically appropriate examination, counseling and educating the patient/family/caregiver, ordering medications, tests, or procedures, communicating with other HCPs (not separately reported), independently interpreting results (not separately reported), communicating results to the patient/family/caregiver and care coordination (not separately reported). Mini Whyte MD [facility] Leela Jevon [address] [address] Phone patient to review MRA Neck and MRi C spine results 04/29/24 2nd read requested Patient lives in a facility documented in this encounter [facility] 05-08-2024 Miscellaneous Notes Summary: Telephone call The [...] Mini Whyte MD documented in this encounter [facility] 05-08-2024 Telephone encounter Note Summary: Telephone call [...] reschedule these telephone encounter. Mini Whyte MD [facility] 05-08-2024 Note HNO ID: [id number] Author: GERDA DEE, ALMA Service: ? Author Type: Registered Nurse Type: Progress Notes Filed: 05/10/2024 14:12 Note Text: Phone patient to review MRA Neck and MRi C spine results 04/29/24 2nd read requested Patient lives in a facility [facility] 05-02-2024 Telephone encounter Note Contacted [facility] radiology ph [phone] and spoke with Lana. She will push over MRA Neck /MRI spine images. Once received and reviewed by Dr Spears he will contact patient. Gerda Dee RN, BSN Pleating Supervisor [facility] Work Phone: 05-02-2024 Miscellaneous Notes Contacted [facility] radiology ph [phone] and spoke with Lana. She will push over MRA Neck /MRI spine images. Once received and reviewed by Dr Spears he will contact patient. Gerda Dee RN, BSN Pleating Supervisor [facility] documented in this encounter [facility] 04-11-2024 Telephone encounter Note Spoke with RN at patient's nursing facility. She states that the patient is scheduled for 04/28/24 for her MRI and MRA. She has requested they push images over the [facility] after they are completed. Will add patient on for provider phone call once images are received. [facility] Work Phone: 04-11-2024 Miscellaneous Notes Spoke with RN at patient's nursing facility. She states that the patient is scheduled for 04/28/24 for her MRI and MRA. She has requested they push images over the [facility] after they are completed. Will add patient on for provider phone call once images are received. documented in this encounter [facility] 04-01-2024 Telephone encounter Note Received a call from nurse White. They are unable to arrange transportation to [place] for her scans tomorrow but will arrange for them to be done at [facility]. I faxed the orders for xray c spine, MRI C spine, MRA brain/carotid to [place] fax [phone] along with pre medication orders for prednisone and benadryl. I also faxed her appointment for May. Transmission was good. Someone from the facility will contact me with the scan dates, then we need to call [facility] to have images pushed over. Due to some issues with transportation we discussed possibly doing a phone call follow up to discuss results. Patient does not have My Chart and Cindy was going to talk to manager social media about assisting with set up. Appointments in May for MRI main campus and visit same day. Gerda Dee, RN, BSN Pleating Supervisor [facility] Work Phone: 04-01-2024 Miscellaneous Notes Received a call from nurse Cindy. They are unable to arrange transportation to [place] for her scans tomorrow but will arrange for them to be done at [facility]. I faxed the orders for xray c spine, MRI C spine, MRA brain/carotid to [place] fax [phone] along with pre medication orders for prednisone and benadryl. I also faxed her appointment for May. Transmission was good. Someone from the facility will contact me with the scan dates, then we need to call [facility] to have images pushed over. Due to some issues with transportation we discussed possibly doing a phone call follow up to discuss results. Patient does not have My Chart and Cindy was going to talk to manager social media about assisting with set up. Appointments in May for MRI main campus and visit same day. Gerda Dee RN, BSN Pleating Supervisor [facility] I contacted [...] not be arranged to be done at [facility] as transportation may be an issue. She is going to check and call me back later today Gerda Dee RN, BSN Pleating Supervisor Niesha [facility] [place] documented in this encounter [facility] 04-01-2024 Telephone encounter Note I contacted the [...] not be arranged to be done at [facility] as transportation may be an issue. She is going to check and call me back later today Gerda Dee RN, BSN Pleating Supervisor [facility] [place] [facility] 03-31-2024 Telephone encounter Note Called and spoke with nurse Dior at [facility], they were unaware of the appointments this week and next, she took down all information and will update her records. India Chi RN [facility] 03-31-2024 Miscellaneous Notes Called and spoke with nurse Dior at [facility], they were unaware of the appointments this week and next, she took down all information and will update her records. India Chi RN documented in this encounter [facility] 03-24-2024 Note HNO ID: [id number] Author: GERDA DEE RN Service: ? Author Type: Registered Nurse Type: Progress Notes Filed: 03/24/2024 16:20 Note Text: Patient is moving to [place], [place] Gerda Dee RN, BSN Pleating Supervisor [facility] 03-24-2024 History of Present illness Narrative Patient is moving to [place], [place] Gerda Dee RN, BSN Pleating Supervisor Niesha [facility] [place] documented in this encounter [facility] 03-24-2024 Telephone encounter Note Contacted [facility] alf regarding appointments scheduled for 04/02/24 (xray, MRA) and visit with Dr Spears on 04/07. I was told she is moving today to [facility] in [facility]. I confirmed all her upcoming appointments and was told her appointment sheet will be sent with her to [place]. I called and left a message for her sister Katie regarding her 04/02 imaging studies and appointment with Dr Spears on 04/07 Patient has prednisone for her MRI scheduled for 05/26 but will need refill for the 04/02 scans. Refill sent to Dr Spears. Gerda Dee RN, BSN Pleating Supervisor [facility] [place] [facility] Work Phone: 03-24-2024 Miscellaneous Notes Contacted [facility] alf regarding appointments scheduled for 04/02/24 (xray, MRA) and visit with Dr Spears on 04/07. I was told she is moving today to [facility] in [facility]. I confirmed all her upcoming appointments and was told her appointment sheet will be sent with her to [place]. I called and left a message for her sister Katie regarding her 1/8 imaging studies and appointment with Dr Spears on 04/07 Patient has prednisone for her MRI scheduled for 05/26 but will need refill for the 04/02 scans. Refill sent to Dr Spears. Gerda Dee, RN, BSN Pleating Supervisor [facility] documented in this encounter [facility] 03-20-2024 Note HNO ID: [id number] Author: ZORA FLORES APRN.A&P MECHANIC Service: ? Author Type: Nurse Practitioner Type: Progress Notes Filed: 03/20/2024 09:11 Note Text: Connected Care Unit Progress Note Facility: [facility] Level of Care: Long-term SNF Attending: [...] Unchanged. Medications: see current medication list in [facility] chart, reviewed (Medications in EPIC may not accurate, please see update in [facility] chart) Objective Data: Vital signs reviewed [...] updated to reflect today's visit. Zora Flores APRN.A&P MECHANIC We will continue to monitor for overall comfort, function and safety. Call for changes in condition. Electronically signed by Zora Flores APRN.CHRISTIANO [facility] 03-20-2024 History of Present illness Narrative Images from the original note were not included. Connected Care Unit Progress Note Facility: [facility] Level of Care: Long-term SNF Attending: [...] Unchanged. Medications: see current medication list in [facility] chart, reviewed (Medications in EPIC may not accurate, please see update in [facility] chart) Objective Data: Vital signs reviewed [...] in condition. Electronically signed by Zora Flores APRN.A&P MECHANIC documented in this encounter [facility] 03-18-2024 Note HNO ID: [id number] Author: ZORA FLORES APRN.CNP Service: ? Author Type: Nurse Practitioner Type: Progress Notes Filed: 03/18/2024 08:50 Note Text: Connected Care Unit Progress Note Facility: [facility] Level of Care: Long-term SNF Attending: [...] Unchanged. Medications: see current medication list in [facility] chart, reviewed (Medications in EPIC may not accurate, please see update in [facility] chart) Objective Data: Vital signs reviewed [...] Flores APRN.CNP March 18, 2024 8:47 AM [facility] 03-18-2024 History of Present illness Narrative Images from the original note were not included. Connected Care Unit Progress Note Facility: [facility] Level of Care: Long-term SNF Attending: [...] Unchanged. Medications: see current medication list in [facility] chart, reviewed (Medications in EPIC may not accurate, please see update in [facility] chart) Objective Data: Vital signs reviewed [...] 2024 8:47 AM documented in this encounter [facility] 03-17-2024 Telephone encounter Note Sent all requests below to the scheduling pools. Dorcas [facility] Work Phone: 03-17-2024 Miscellaneous Notes Sent all requests below to the scheduling pools. Dorcas Patient resides At [facility] [phone]-let them know of any appointments. Scheduling Request [...] Time Frame: next available Orders: [facility] to [facility] Provider or Provider Group: [...] 8. Quadriplegia (HCC) documented in this encounter [facility] 03-17-2024 Telephone encounter Note Done. Called the facility twice, no answer. (will try again) Mailed reminder. Dorcas [facility] Work Phone: 03-17-2024 Miscellaneous Notes Done. Called the facility twice, no answer. (will try again) Mailed reminder. Dorcas Scheduling Request - est Patient Time Frame: next available Orders: MRA brain, MRA carotid, MRI cervical spine, XR CERVICAL 2V FLEX/EXT - Ok to arrange close scan close to [place] Visit type: In person within a week from scans with Dr. Spears in person Diagnosis: brain tumor Patient lives in a facility and needs transportation arranged. PLease call [facility] [phone]-let them know of any appointments. documented in this encounter [facility] 03-14-2024 Note HNO ID: [id number] Author: GERDA DEE RN Service: ? Author Type: Registered Nurse Type: Progress Notes Filed: 03/14/2024 12:26 Note Text: Spoke with Radha at [facility] pathology- brain slides from 1992 are no longer available. Await records Gerda Dee RN, BSN Pleating Supervisor [facility] 03-14-2024 History of Present illness Narrative Spoke with Radha at [facility] pathology- brain slides from 1992 are no longer available. Await records Gerda Dee RN, BSN Pleating Supervisor [facility] documented in this encounter [facility] 03-14-2024 Note HNO ID: [id number] Author: GERDA DEE RN Service: ? Author Type: Registered Nurse Type: Progress Notes Filed: 03/14/2024 11:48 Note Text: Faxed request for pathology slides and medical records to [facility] medical records/pathology at [phone] fax [phone] Surgery was in 04/1992 Gerda Dee RN, BSN Pleating Supervisor [facility] 03-14-2024 History of Present illness Narrative Faxed request for pathology slides and medical records to [facility] medical records/pathology at [phone] fax [phone] Surgery was in 04/1992 Gerda Dee, RN, BSN Pleating Supervisor [facility] documented in this encounter [facility] 03-11-2024 Telephone encounter Note Attempted to reach Nieves- no answer Predication order and instructions copied and faxed to [place] fax [phone]- Transmission completed on 03/11 @ 14;42 pm Prednisone 50mg is to be given starting 13 hours before scheduled MRi (on 05/26 @ 9:10 )am, 7 hours before and 1 hour before- for a total of 3 doses of 50mg each. 3/2- 8 pm 3/3- 2 am 3/3- 8 am Gerda Dee RN, BSN Pleating Supervisor [facility] Work Phone: 03-11-2024 Miscellaneous Notes Attempted to reach Nieves- no answer Predication order and instructions copied and faxed to [facility] fax [phone]- Transmission completed on 03/11 @ 14;42 pm Prednisone 50mg is to be given starting 13 hours before scheduled MRi (on 05/26 @ 9:10 )am, 7 hours before and 1 hour before- for a total of 3 doses of 50mg each. 3/2- 8 pm 3/3- 2 am 3/3- 8 am Gerda Dee RN, BSN Pleating Supervisor [facility] General Call Caller : Nieves Johnson Contact or [phone] Reason for Call : Pt is scheduled to have her MRI on 05/26/2024. Nieves is calling for pt's premedication as pt is allergic to the contrast. Please also note the instruction on when pt is to take medication as Nieves thought pt take her premeds 3 days prior to the MRI appt. Patient requesting return call ? Yes documented in this encounter [facility] 03-10-2024 Telephone encounter Note Sent staff message "New CV Patient" to PSS team to assist. Imaging updated in chart per internal referral. [facility] 03-10-2024 Miscellaneous Notes Sent staff message "New CV Patient" to PSS team to assist. Imaging updated in chart per internal referral. Images from the original note were not included. Consult Received: Dorcas Moya Cv Triage Please schedule below request. Patient resides At [facility] [phone]-let them know of any appointments. Scheduling Request [...] 8. Quadriplegia (HCC documented in this encounter [facility] 03-10-2024 Telephone encounter Note General Call Caller : Nieves Johnson Contact or [phone] Reason for Call : Pt is scheduled to have her MRI on 05/26/2024. Nieves is calling for pt's premedication as pt is allergic to the contrast. Please also note the instruction on when pt is to take medication as Nieves thought pt take her premeds 3 days prior to the MRI appt. Patient requesting return call ? Yes [facility] 03-05-2024 Telephone encounter Note Images from the original note were not included. Consult Received: Dorcas Moya Cv Triage Please schedule below request. Patient resides At [facility] [phone]-let them know of any appointments. Scheduling Request [...] spinal cord, sequela (HCC) 8. Quadriplegia (HCC [facility] 03-04-2024 Telephone encounter Note Scheduling Request - est Patient Time Frame: next available Orders: MRA brain, MRA carotid, MRI cervical spine, XR CERVICAL 2V FLEX/EXT - Ok to arrange close scan close to [place] Visit type: In person within a week from scans with Dr. Spears in person Diagnosis: brain tumor Patient lives in a facility and needs transportation arranged. PLease call [facility] ph [phone]-let them know of any appointments. [facility] Work Phone: 03-04-2024 Telephone encounter Note Patient resides At [facility] [phone]-let them know of any appointments. Scheduling Request [...] Time Frame: next available Orders: [facility] Provider or Provider Group: any Visit [...] spinal cord, sequela (HCC) 8. Quadriplegia (HCC) [facility] Work Phone: 03-04-2024 Note Addended by: MINI MATHEWS on: 03/04/2024 01:59 PM Modules accepted: Orders [facility] 03-04-2024 Miscellaneous Notes Addended by: MINI WHYTE on: 03/04/2024 01:59 PM Modules accepted: Orders documented in this encounter [facility] 03-04-2024 Miscellaneous Notes Scheduling Request - Established Patient Time Frame: week 05/26 Orders: MRI brain at Provider: Dr. Spears Visit type: In person same day at Diagnosis: astrocytoma documented in this encounter [facility] 03-04-2024 Telephone encounter Note Scheduling Request - Established Patient Time Frame: week of 05/26 Orders: MRI brain at Provider: Dr. Spears Visit type: In person same day at Diagnosis: astrocytoma [facility] Work Phone: 03-04-2024 History of Present illness Narrative [facility] NOTE NAME: DIOR CARVAJAL [facility] NO.: [id number] DATE OF SERVICE: 03/04/2024 ATTENDING PHYSICIAN: Macarena Bain MD [facility] Followup of multiple medical chronic issues. She is currently resting in bed. She appears quite comfortable. She has no complaints or pain. She denies being short of breath. Nursing reports no new problems. She was recently seen in followup at the [facility] for her history of brain tumor. She [...] again, she is to follow up with [facility] Tumor Center and undergo MRI. DICTATED BY: MD PRASHANT Singleton/JOHNNIE JOB# [id number] [facility] documented in this encounter [facility] 03-04-2024 Note HNO ID: [id number] Author: MACARENA BAIN, ? Service: ? Author Type: Physician Type: Progress Notes Filed: 03/06/2024 07:48 Note Text: [facility] NOTE NAME: DIOR CARVAJAL CLINIC NO.: [id number] DATE OF SERVICE: 03/04/2024 ATTENDING PHYSICIAN: Macarena Bain MD [facility] Followup of multiple medical chronic issues. She is currently resting in bed. She appears quite comfortable. She has no complaints or pain. She denies being short of breath. Nursing reports no new problems. She was recently seen in followup at the [facility] for her history of brain tumor. She [...] again, she is to follow up with [facility] Brain Tumor Center and undergo MRI. DICTATED BY: MD JENELLE SingletonE/AQT JOB# [id number] [facility] 02-28-2024 Note HNO ID: [id number] Author: MINI WHYTE MD Service: ? Author Type: Physician Type: Progress Notes Filed: 03/04/2024 13:59 Note Text: [facility] Clinic follow up. Diagnosis: Anaplastic astrocytoma The patient is accompanied by a staff at the [facility] [place] facility where she resides, [place]. Subjective History of Present Illness: Mrs. Carvajal, [...] Surgery: R frontal lobe tumor resection at [facility]- ([id number]) Pathology: Anaplastic astrocytoma Neurosurgeon: Raul Tamez MD [facility] Neurosurgery , [address] [place], [place] Radiation oncologist: Unknown PER SISTER: ONLY HAD RADIATION. NEVER HAD CHEMO However on some [facility] Notes is says - patient had chemo-radiation. 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 SOCIAL: -Patient resides in [facility] -Sister Laureen Hassan MPOA Therapy Status Data [...] daily. omeprazole (PRILOSEC (more content not included)... [facility] 02-28-2024 History of Present illness Narrative Images from the original note were not included. [facility] Clinic follow up. Diagnosis: Anaplastic astrocytoma The patient is accompanied by a staff at the custodial facility where she resides, [place]. Subjective History of Present Illness: Mrs. Carvajal, [...] Surgery: R frontal lobe tumor resection at [facility]- ([id number]) Pathology: Anaplastic astrocytoma Neurosurgeon: Raul Tamez MD [facility] Neurosurgery , [address] [facility] [address] [place], [place] Radiation oncologist: Unknown PER SISTER: ONLY HAD RADIATION. NEVER HAD CHEMO However on some [facility] Notes is says - patient had chemo-radiation. 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 SOCIAL: -Patient resides in [facility] -Sister Laureen SARGENT Therapy Status Data Form [...] 1.00 - 4.00 k/uL 1.92 1.95 Abs Real <0.87 k/uL 0.44 0.72 Abs Eosin <0.46 [...] & HISTORY: Right craniotomy brain tumor, 04/30/92 [facility] Final Diagnosis FINAL DIAGNOSIS: A,B,C&D. "Brain tumor": Anaplastic astrocytoma. [facility] Nonchartable [id number] R Signed-Out [facility] Nonchartable A. FS-BRAIN TUMOR Collected: 05/18/1992 Received: 05/18/1992 B. BRAIN TUMOR Collected: 05/18/1992 Received: 05/18/1992 C. brain tumor Collected: 05/18/1992 Received: 05/18/1992 D. BRAIN TUMOR Collected: 05/18/1992 Received: 05/18/1992 SNOMED: [id number] Imaging: [facility] Procedure Notes - documented in this [...] stenosis results. Feb 02, 2010 [facility] FINDINGS: Comparison is made to the [...] DATE OF EXAM: Feb 28 2024 2:16PM [facility] 0294 - MRI BRAIN WO IVCON [...] abnormality. Age advanced moderate parenchymal volume loss. Hotel Front Office Manager: MAGUI Transcribe Date/Time: Feb 28 2024 2:24P [...] MRI from 2010. Assessment & Plan Mrs. Carvajla, is a 58 YO RHF, per records, the patient had back on 04/30/1992 Surgery: For a right frontal lobe tumor resection at [facility] ([id number]). 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 Per the records clear neurosurgeon is Dashawn Montelongo MD [facility] Neurosurgery. Her sister confirmed today, that per her own recollection the patient ONLY HAD RADIATION AND NEVER HAD CHEMO. However on some [facility] Notes it says - "patient had [...] records of her brain tumor [facility] from [facility]. -Obtain, the actual pathology, from [facility] if possible, for neuro pathology review at [facility]. -MRI brain w and w/o + perfusion in 3 months time. MRI to be done at [facility]. -Premedications, with the pheniramine and prednisone [...] Bindu Burt on 02/13/2024. -Referral, to brain [facility] for assessment, regarding whether [...] see the patient, at least 50% of [id number]-[id number] patient care, completing clinical documentation, obtaining and/or reviewing separately obtained history, performing a medically appropriate examination, counseling and educating the patient/family/caregiver, ordering medications, tests, or procedures, communicating with other HCPs (not separately reported), independently interpreting results (not separately reported), communicating results to the patient/family/caregiver and care coordination (not separately reported). Mini Whyte MD [facility] [place] [address] documented in this encounter [facility] 02-28-2024 Nurse Note Additional intake questions: Has the patient had fever, nausea, vomiting, diarrhea, constipation, fatigue for > 1 week? No Does the patient have a decreased appetite? No Does patient want to see a Blowing Engineer? No (yes to any of above refer patient to schedulers for dietitian appointment) ) Does patient have any new or increased numbness or tingling of extremities? No Is patient interested in fertility information? No Does patient need any prescription refills? No Does patient have an advanced directive in place? No, Patient referred to [facility] 02-28-2024 Nurse Note Additional intake questions: Has the patient had fever, nausea, vomiting, diarrhea, constipation, fatigue for > 1 week? No Does the patient have a decreased appetite? No Does patient want to see a Blowing Engineer? No (yes to any of above refer patient to schedulers for dietitian appointment) ) Does patient have any new or increased numbness or tingling of extremities? No Is patient interested in fertility information? No Does patient need any prescription refills? No Does patient have an advanced directive in place? No, Patient referred to [facility] documented in this encounter [facility] 02-28-2024 Note HNO ID: [id number] Author: JR GALLEGO RN Service: Radiology Author [...] 28, 2024 TIME: 2:20 PM PAGER/CONTACT #: [facility] 02-28-2024 History of Present illness Narrative [...] PATIENT PRESENTS WITH AN IMPLANTABLE OR ATTACHED DUST MILL OPERATOR: No RADIOLOGY DEPARTMENT: MR; Exam(s) Completed: Head: Routine Brain PERIPHERAL IV DATA: Not applicable SIGNED BY: RACHELLE Garcia February 28, 2024 2:00 PM documented in this encounter [facility] 02-28-2024 Note HNO ID: [id number] Author: YENNIFER NOVA MRI Tech Service: Radiology [...] PATIENT PRESENTS WITH AN IMPLANTABLE OR ATTACHED DUST MILL OPERATOR: No RADIOLOGY DEPARTMENT: MR; Exam(s) Completed: Head: Routine Brain PERIPHERAL IV DATA: Not applicable SIGNED BY: RACHELLE Garcia Tech February 28, 2024 2:00 PM [facility] 02-13-2024 Note HNO ID: [id number] Author: BINDU BURT, PhD Service: ? Author Type: Psychologist Type: Progress Notes Filed: 02/29/2024 16:56 Note Text: [facility] Department of Neurology Section of Neuropsychology Neuropsychological Evaluation Report CONFIDENTIAL Patient: Dior Carvajal Referred by: Mini Whyte Date of : 1965 Date of Evaluation: 02/13/2024 SUMMARY/IMPRESSIONS: The patient is a 59-year-old, White, female, referred for a neuropsychological evaluation by Mini Whyte MD in the [facility]. 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 Of note, the [...] astrocytoma s/p right frontal tumor resection at [facility] on 04/27/1992. She is unsure [...] the patient. IADL/ADL: She has resided in [facility], a alf facility, since 08/05/2022. Her family visits her frequently and is reportedly involved in her care; however, from her self-reported history it is unclear what she requires assistance with specifically. Finances: She states that she is managing finances independently (i.e., mostl (more content not included)... [facility] 02-10-2024 Note HNO ID: [id number] Author: KYLE LANE APRN.A&P MECHANIC Service: ? Author Type: Nurse Practitioner Type: Progress Notes Filed: 02/10/2024 20:28 Note Text: Connected Care Unit Telemedicine Progress Note Patient Name: Dior Carvajal Patient Facility: [facility] Level of Care: Long-term SNF Attending: Macarena Bain M.D. Service Date: 02/10/2024 Chief Complaint: Evaluation regarding recent fall ASSESSMENT AND PLAN I have communicated my name and active licensure. The patient's identity and physical location were verified at the time of this visit. Either the patient or their legal specialty sales representative has been informed of the [...] back - Monitor safety awareness Kyle Lane APRN.A&P MECHANIC Appointments for Next 60 Days Date Time Provider Location Dept Phone 02/13/2024 12:30 PM BINDU BURT S [facility] [phone] 02/28/2024 11:40 AM MRI 3 RADIO MAIN Q (I-STAT/1.5T/3T) Mn Q [facility] [phone] 02/28/2024 1:30 PM MINI WHYTE Ca [facility] [phone] HPI: Virtual visit for recent fall NAD [...] appropriate parties. Electronically signed by Kyle Lane APRN.A&P MECHANIC [facility] 02-10-2024 History of Present illness Narrative Images from the original note were not included. Connected Care Unit Telemedicine Progress Note Patient Name: Dior Carvajal Patient Facility: [facility] Level of Care: Long-term SNF Attending: Macarena Bain M.D. Service Date: 02/10/2024 Chief Complaint: Evaluation regarding recent fall ASSESSMENT AND PLAN I have communicated my name and active licensure. The patient's identity and physical location were verified at the time of this visit. Either the patient or their legal specialty sales representative has been informed of the [...] back - Monitor safety awareness Kyle Lane APRN.A&P MECHANIC Appointments for Next 60 Days Date Time Provider Location Dept Phone 02/13/2024 12:30 PM BINDU BURT Bldg [phone] 02/28/2024 11:40 AM MRI 3 RADIO MAIN Q (I-STAT/1.5T/3T) Jaqueline Pierre [phone] 02/28/2024 1:30 PM MINI WHYTE Ca Bldg [phone] HPI: Virtual visit for recent fall NAD [...] appropriate parties. Electronically signed by Kyle Lane APRN.A&P MECHANIC documented in this encounter [facility] 02-07-2024 History of Present illness Narrative Dior Carvajal : 1965 Assisted: [facility]isted [facility] PCP: ODELL Date last seen: 01/01/2024 A&P MECHANIC PAST MEDICAL HISTORY Diagnosis Date Abnormal gait [...] Hayder Bone DPM documented in this encounter [facility] 02-07-2024 Instructions Hayder Bone DPM - 02/07/2024 12:26 PM EST Pt not to attempt self care due to high risk. documented in this encounter [facility] 02-06-2024 Telephone encounter Note Contacted [facility] and spoke with Johanny. I let her know dates, times and location for patients MRI and visit scheduled for 02/28/24. Sister was also updated who will meet patient here. Transportation to be arranged by facility Gerda Dee RN, BSN Pleating Supervisor [facility] [place] [facility] Work Phone: 02-06-2024 Telephone encounter Note Returned call and provided Katie with appointment dates and times for 02/28/24 Gerda Dee RN, BSN Pleating Supervisor [facility] Tumor & Neuro-Oncology [place] [facility] Work Phone: 02-06-2024 Miscellaneous Notes Returned call and provided Katie with appointment dates and times for 02/28/24 Gerda Dee RN, BSN Pleating Supervisor [facility] & Neuro-Oncology [place] General Call Caller : Katie/ Contact Reason for Call : Katie says she is returning a missed call from [facility] regarding pt's appt. Patient requesting return call ? Yes documented in this encounter [facility] 02-06-2024 Miscellaneous Notes Contacted [facility] and spoke with Johanny. I let her know dates, times and location for patients MRI and visit scheduled for 02/28/24. Sister was also updated who will meet patient here. Transportation to be arranged by facility Gerda Dee RN, BSN Pleating Supervisor [facility] Tumor [facility] [place] documented in this encounter [facility] 02-06-2024 Telephone encounter Note General Call Caller : Katie/sister Contact Reason for Call : Katie says she is returning a missed call from [facility] regarding pt's appt. Patient requesting return call ? Yes [facility] 01-29-2024 Telephone encounter Note Spoke to dental scheduler from Facility, she is scheduled & confirmed for all appts. [facility] 01-29-2024 Miscellaneous Notes Spoke to dental scheduler from Facility, she is scheduled & confirmed for all appts. Scheduling Request - Established Patient Time Frame: [facility] week of 02/25/24 Orders: MRI [...] Diagnosis: cognitive assessment. documented in this encounter [facility] 01-21-2024 Telephone encounter Note Spoke with patient's sister, Katie to let her know that Dr Spears wants Dior to have an MRI in ~ 4 weeks. This will be arranged at [facility] with same day visit (week of 02/24) . A family member needs to be present. At Dior's consultation she came with an aide front facility and no family. Katie said she works in [employer] and can meet Dior at her appointment. Dior and the facility ([facility] [phone]) will need to know the day/time of appointment to make arrangements. Once appointments are scheduled, we will notify them. Dior does not have My Chart Gerda Dee RN, BSN Pleating Supervisor [facility] Brain Tumor & Neuro[facility]cology [place] [facility] Work Phone: 01-21-2024 Miscellaneous Notes Spoke with patient's sister, Katie to let her know that Dr Spears wants Dior to have an MRI in ~ 4 weeks. This will be arranged at [facility] with same day visit (week of 02/24) . A family member needs to be present. At Dior's consultation she came with an aide front facility and no family. Katie said she works in [employer] and can meet Dior at her appointment. Dior and the facility ([facility] [phone]) will need to know the day/time of appointment to make arrangements. Once appointments are scheduled, we will notify them. Dior does not have My Chart Gerda Dee RN, BSN Pleating Supervisor [facility] Tumor [facility] [place] documented in this encounter [facility] 01-21-2024 Telephone encounter Note Scheduling Request - Established Patient Time Frame: [facility] week of 02/25/24 Orders: MRI [...] person Referring: Dr Spears Diagnosis: cognitive assessment. [facility] Work Phone: 01-17-2024 History of Present illness Narrative Images from the original note were not included. [facility] New Patient Consultation Referred by: Leela Escoto DO [address] [place] [id number] Diagnosis: Anaplastic astrocytoma The patient is accompanied by a staff at the ferry terminal agent facility where she resides, [place]. Subjective History of Present Illness: Mrs. Carvajal, [...] if she had chemotherapy. Patient resides in [facility] records- NO MRI BRAIN IMAGES (last record of MRI brain at [facility] was 05/15/2002) No records related to prior treatment received. Surgery: -R frontal lobe tumor resection at [facility]-04/30/1992 ([id number]) Pathology: Anaplastic astrocytoma Neurosurgeon Unknown Radiation oncologist: Unknown Pertinent History: per recoards -Limited records. NO MRI brain images -L frontal tumor resection done at [facility] 04/30/92 -Pathology- anaplastic astrocytoma January [...] 1.00 - 4.00 k/uL 1.92 1.95 Abs Real <0.87 k/uL 0.44 0.72 Abs Eosin <0.46 [...] & HISTORY: Right craniotomy brain tumor, 04/30/92 [facility] Final Diagnosis FINAL DIAGNOSIS: A,B,C&D. "Brain tumor": Anaplastic astrocytoma. [facility] Nonchartable [id number] R Signed-Out [facility] Nonchartable A. FS-BRAIN TUMOR Collected: 05/18/1992 Received: 05/18/1992 B. BRAIN TUMOR Collected: 05/18/1992 Received: 05/18/1992 C. brain tumor Collected: 05/18/1992 Received: 05/18/1992 D. BRAIN TUMOR Collected: 05/18/1992 Received: 05/18/1992 SNOMED: [id number] Imaging: MRI Report No resulted procedures found. [...] see the patient, at least 50% of qkkm-zj-tfao patient care, completing clinical documentation, obtaining and/or reviewing separately obtained history, performing a medically appropriate examination, counseling and educating the patient/family/caregiver, ordering medications, tests, or procedures, communicating with other HCPs (not separately reported), independently interpreting results (not separately reported), communicating results to the patient/family/caregiver and care coordination (not separately reported). Mini Whyte MD 10:32 AM 01/17/2024 [facility] Leelavikram Escoto DO [address] [place] [address] documented in this encounter [facility] 01-17-2024 Nurse Note Additional intake questions: Has the patient had fever, nausea, vomiting, diarrhea, constipation, fatigue for > 1 week? Yes, nausea, vomiting, constipation (day of last BM 01/16/24), and diarrhea ( 4 times in last 24 hours) Does the patient have a decreased appetite? No Does patient want to see a Blowing Engineer? No (yes to any of above refer patient to schedulers for dietitian appointment) ) Does patient have any new or increased numbness or tingling of extremities? No Is patient interested in fertility information? No Does patient need any prescription refills? No Does patient have an advanced directive in place? No, Patient refused referral to Social Work or Resource Center [facility] 01-17-2024 Nurse Note Additional intake questions: Has the patient had fever, nausea, vomiting, diarrhea, constipation, fatigue for > 1 week? Yes, nausea, vomiting, constipation (day of last BM 01/16/24), and diarrhea ( 4 times in last 24 hours) Does the patient have a decreased appetite? No Does patient want to see a Blowing Engineer? No (yes to any of above refer patient to schedulers for dietitian appointment) ) Does patient have any new or increased numbness or tingling of extremities? No Is patient interested in fertility information? No Does patient need any prescription refills? No Does patient have an advanced directive in place? No, Patient refused referral to Social Work or Resource Center documented in this encounter [facility] 01-15-2024 History of Present illness Narrative This note is only to load and organize information prior to patient's visit to [facility]. This includes information gathered from outside records and/or information that has been previously documented in [facility] and will be confirmed with the patient at the time of visit. Patient is a 58 y/o female from [place], [place] Reason for consult: h/o astrocytoma Patient resides in [facility] records- NO MRI BRAIN IMAGES (last record of MRI brain at [facility] was 05/15/2002) No records related to prior treatment received. Surgery: -R frontal lobe tumor resection at [facility]-04/30/1992 ([id number]) Pathology: Anaplastic astrocytoma Neurosurgeon Unknown Radiation oncologist: [...] images -L frontal tumor resection done at [facility] 04/30/92 -Pathology- anaplastic astrocytoma 12/25/2023 CT BRAIN W Contrast COMPARISON: MR 03/04/2011. CT head 03/04/2011. IMPRESSION: No acute intracranial process. Remote history of RIGHT frontal craniotomy for underlying mass resection, with redemonstrated RIGHT frontal encephalomalacia and gliosis. No overt evidence of disease progression or recurrence on CT, however this is better evaluated with MR brain without and with contrast. MRi Brain- [facility] 05/15/2002 FINDINGS: Comparison is made [...] recurrence is seen. Gerda Dee, RN, BSN Pleating Supervisor [facility] documented in this encounter [facility] 01-14-2024 History of Present illness Narrative Images from the original note were not included. Connected Care Unit Telemedicine Progress Note Patient Name: Dior Carvajal Patient Facility: [facility] Level of Care: Long-term SNF Attending: Macarena Bain M.D. Service Date: 01/14/2024 Chief Complaint: Evaluation regarding recent fall ASSESSMENT AND PLAN I have communicated my name and active licensure. The patient's identity and physical location were verified at the time of this visit. Either the patient or their legal specialty sales representative has been informed of the [...] back - Monitor safety awareness Kyle Lane APRN.A&P MECHANIC HPI: Virtual visit for recent fall NAD [...] appropriate parties. Electronically signed by Kyle Lane APRN.A&P MECHANIC documented in this encounter [facility] 01-08-2024 Telephone encounter Note Dior had resection and radiation treatment at [facility] - will request pathology and office notes. ___ Patient: Dior Carvajal Address: Dior Carvajal [id number] [place], [place] [id number] Per Triage: Dior Carvajal is a 58 year old female: 27 years old - resection and radiation of brain tumor at [facility] Need prior history/resection information Patient expectations: [...] with MR brain without and with contrast. Hotel Front Office Manager: MAGUI Transcribe Date/Time: Dec 25 2023 1:22P [...] imaged soft tissues are unremarkable. Umm Nuñez APRN.A&P MECHANIC January 08, 2024 [facility] 01-08-2024 Miscellaneous Notes Dior had resection and radiation treatment at [facility] - will request pathology and office notes. ___ Patient: Dior Carvajal Address: Dior Carvajal [id number] [place] [address] Per Triage: Dior Carvajal is a 58 year old female: 27 years old - resection and radiation of brain tumor at [facility] Need prior history/resection information Patient expectations: [...] with MR brain without and with contrast. Hotel Front Office Manager: MAGUI Transcribe Date/Time: Dec 25 2023 1:22P [...] January 08, 2024 Images in Epic 1. Neon Electrician: Who is requesting this appointment?patient and patient's caregiver & dental scheduler Nieves [phone] 2. Neon Electrician: Please indicate the best contact information for our team to reach you with any questions/concerns we may have? 3. Neon Electrician: What is your diagnosis? Other 4. Neon Electrician: Have you ever been seen at our center before? If yes, by whom? N/A (If the patient has been seen in our department before, please bypass the triage process and send a message to the rn urgent care of the provider that the patient saw in the past. (Patient being referred to us with the same dx)). 5. Neon Electrician: Is there a specific doctor you were referred to? N/A 6. Neon Electrician: What facility and/or hospital have you been seen at? [facility] Name of facility/name of provider where patient was treated. N/a 7. Neon Electrician: For this appointment, we will need to request a few records from you. This will help our triage team be able to select the best provider for your treatment. a. Please provide: Most recent MRI- spine/Brain (Neon Electrician will check CareEverywhere for records). 8. Neon Electrician: Where was your last imaging completed:December 2023(Ideally should be completed within the last six months). 9. Neon Electrician: Have you had any surgeries pertaining to this appointment? No If yes, please obtain pathology report. 10. Neon Electrician: Please allow up to 48-72 hours for our triage team to review your records. Once they reviewed your records, we will be in contact with you. a. Was the patient made aware of the turnaround time? Yes 11. Neon Electrician: Our department offers virtual visits depending on the provider you are recommended to see and the state that you live in. If able to schedule, would you like a virtual visit?Yes a. If answered yes: Does the patient have MyChart access: No If not, then dental scheduler will walk patient through getting access to [employer]. b. If no, Are you interested in In Person (If not, please indicate patient refused to schedule at this time and the reason to not proceed with scheduling). 12. Sent to triage pool. (Waiting approval). documented in this encounter [facility] 01-08-2024 Telephone encounter Note Images in Epic 1. Neon Electrician: Who is requesting this appointment?patient and patient's caregiver & dental scheduler Nieves [phone] 2. Neon Electrician: Please indicate the best contact information for our team to reach you with any questions/concerns we may have? 3. Neon Electrician: What is your diagnosis? Other 4. Neon Electrician: Have you ever been seen at our center before? If yes, by whom? N/A (If the patient has been seen in our department before, please bypass the triage process and send a message to the rn urgent care of the provider that the patient saw in the past. (Patient being referred to us with the same dx)). 5. Neon Electrician: Is there a specific doctor you were referred to? N/A 6. Neon Electrician: What facility and/or hospital have you been seen at? [facility] Name of facility/name of provider where patient was treated. N/a 7. Neon Electrician: For this appointment, we will need to request a few records from you. This will help our triage team be able to select the best provider for your treatment. a. Please provide: Most recent MRI- spine/Brain (Neon Electrician will [facility] records). 8. Neon Electrician: Where was your last imaging completed:December 2023(Ideally should be completed within the last six months). 9. Neon Electrician: Have you had any surgeries pertaining to this appointment? No If yes, please obtain pathology report. 10. Neon Electrician: Please allow up to 48-72 hours for our triage team to review your records. Once they reviewed your records, we will be in contact with you. a. Was the patient made aware of the turnaround time? Yes 11. Neon Electrician: Our department offers virtual visits depending on the provider you are recommended to see and the state that you live in. If able to schedule, would you like a virtual visit?Yes a. If answered yes: Does the patient have MyChart access: No If not, then dental scheduler will walk patient through getting access to [facility]. b. If no, Are you interested in In Person (If not, please indicate patient refused to schedule at this time and the reason to not proceed with scheduling). 12. Sent to triage pool. (Waiting approval). [facility] 01-01-2024 History of Present illness Narrative Images from the original note were not included. Connected Care Unit Progress Note Facility: [facility] Skilled Care Level of Care: Long-term [...] Unchanged. Medications: see current medication list in [facility] chart, reviewed (Medications in [facility] may not accurate, please see update in [facility] chart) Objective Data: Vital signs reviewed [...] Encourage fluids and toilet schedule Zora Flores APRN.A&P MECHANIC We will continue to monitor for overall comfort, function and safety. Call for changes in condition. Electronically signed by Zora Flores APRN.CNP January 01, 2024 9:34 AM documented in this encounter [facility] 01-01-2024 History of Present illness Narrative [facility] NOTE NAME: DIOR CARVAJAL CLINIC NO.: [id number] DATE OF SERVICE: 01/01/2024 ATTENDING PHYSICIAN: Macarena Bain MD [facility] Followup multiple medical chronic issues She is [...] current course of therapy. DICTATED BY: MD JENLELE SingletonE/AQT JOB# [id number] [facility] documented in this encounter [facility] 12-25-2023 History of Present illness [...] PATIENT PRESENTS WITH AN IMPLANTABLE OR ATTACHED DUST MILL OPERATOR: No ALLERGIES: Reviewed and unchanged CONTRAST ALLERGY: [...] TIME: 12:09 PM documented in this encounter [facility] 12-24-2023 Telephone encounter Note Pt lives at a half-way. Chart states that she is allergic to contrast. Facility called and advised to give 50 mg of prednisone at 13, 7 and 1 hour before exam and 50 mg of benadryl 1 hour before scheduled test.RN state that she will facilitate these orders for [facility] policy. [facility] 12-24-2023 Miscellaneous Notes Pt lives at a half-way. Chart states that she is allergic to contrast. Facility called and advised to give 50 mg of prednisone at 13, 7 and 1 hour before exam and 50 mg of benadryl 1 hour before scheduled test.RN state that she will facilitate these orders for [facility] policy. documented in this encounter [facility] 12-10-2023 History of Present illness Narrative Dior Carvajal : 1965 Assisted: [facility]- Assisted/Assisted Living PCP: odell Date last seen: christiano [...] Hayder Bone DPM documented in this encounter [facility] 12-10-2023 Instructions Hayder Bone DPM - 12/10/2023 1:28 PM EDT Pt not to attempt self care due to high risk. documented in this encounter [facility] 12-06-2023 History of Present illness Narrative Images from the original note were not included. Connected Care Unit Progress Note Facility: [facility] Skilled Care Level of Care: Long-term [...] Unchanged. Medications: see current medication list in [facility] chart, reviewed (Medications in EPIC may not accurate, please see update in [facility] chart) Objective Data: Vital signs reviewed [...] M54.2, G89.29 Tramadol OT therapy Zora Flores APRN.A&P MECHANIC We will continue to monitor for overall comfort, function and safety. Call for changes in condition. Electronically signed by Zora Flores APRN.CNP December 06, 2023 8:55 AM documented in this encounter [facility] 11-29-2023 History of Present illness Narrative Images from the original note were not included. Connected Care Unit Progress Note Facility: [facility] Skilled Care Level of Care: Long-term [...] Unchanged. Medications: see current medication list in [facility] chart, reviewed (Medications in EPIC may not accurate, please see update in [facility] chart) Objective Data: Vital signs reviewed [...] 2023 9:05 AM documented in this encounter [facility] 11-06-2023 History of Present illness Narrative Images from the original note were not included. Connected Care Unit Progress Note Facility: [facility] Skilled Care Level of Care: Long-term [...] Unchanged. Medications: see current medication list in [facility] chart, reviewed (Medications in [facility] may not accurate, please see update in [facility] chart) Objective Data: Vital signs reviewed [...] 298.9, ICD10: R41.0 See 1 Zora Flores APRN.A&P MECHANIC We will continue to monitor for overall comfort, function and safety. Call for changes in condition. Electronically signed by Zora Flores APRN.CNP November 06, 2023 10:08 AM documented in this encounter [facility] 11-06-2023 History of Present illness Narrative [facility] NOTE NAME: DIOR [facility]VAJAL [facility] NO.: [id number] DATE OF SERVICE: 11/06/2023 ATTENDING PHYSICIAN: Macarena Bain MD [facility] Followup of multiple medical chronic issues. She [...] continue to monitor closely. DICTATED BY: MD PRASHANT Singleton/JOHNNIE JOB# [id number] [facility] documented in this encounter [facility] 10-11-2023 History of Present illness Narrative Images from the original note were not included. Connected Care Unit Progress Note Facility: [facility] Skilled Care Level of Care: Long-term [...] Unchanged. Medications: see current medication list in [facility] chart, reviewed (Medications in [facility] may not accurate, please see update in [facility] chart) Objective Data: Wt 177 lbs [...] 2023 8:59 AM documented in this encounter [facility] 10-07-2023 History of Present illness Narrative Dior Carvajal : 1965 Assisted: [facility] Assisted[facility]Assisted Living PCP: dr. bain Date last seen: [...] Hayder Bone DPM documented in this encounter [facility] 10-07-2023 Instructions Hayder Bone DPM - 10/07/2023 7:19 AM EDT Pt not to attempt self care due to high risk. documented in this encounter [facility] 09-11-2023 History of Present illness Narrative [facility] NOTE NAME: DIOR CARVAJAL CLIN[facility] NO.: [id number] DATE OF SERVICE: 09/11/2023 ATTENDING PHYSICIAN: Macarena Bain MD [facility] Followup of multiple medical chronic issues She [...] therapy. DICTATED BY: MD PRASHANT Singleton/JOHNNIE JOB# [id number] [facility] documented in this encounter [facility] 08-28-2023 History of Present illness Narrative Images from the original note were not included. Connected Care Unit Progress Note Facility: [facility] Skilled Care Level of Care: Long-term [...] Unchanged. Medications: see current medication list in [facility] chart, reviewed (Medications in EPIC may not accurate, please see update in [facility] chart) Objective Data: Vital signs reviewed [...] ICD10: M25.552 Methocarbamol 500mg prn Zora Flores APRN.CHRISTIANO We will continue to monitor for overall comfort, function and safety. Call for changes in condition. Electronically signed by Zora Flores APRN.CNP August 28, 2023 9:22 AM documented in this encounter [facility] 08-16-2023 History of Present illness Narrative Images from the original note were not included. Connected Care Unit Progress Note Facility: [facility] Skilled Care Level of Care: Long-term [...] Unchanged. Medications: see current medication list in [facility] chart, reviewed (Medications in EPIC may not accurate, please see update in [facility] chart) Objective Data: Vital signs reviewed [...] 2023 8:39 AM documented in this encounter [facility] 07-29-2023 History of Present illness Narrative Dior Carvajal : 1965 Assisted: [facility] Assisted[facility]Assisted Living PCP: DR. BAIN Date last seen: [...] Hayder Bone DPM documented in this encounter [facility] 07-29-2023 Instructions Hayder Bone DPM - 07/29/2023 1:46 PM EDT Pt not to attempt self care due to high risk. documented in this encounter [facility] 06-27-2023 History of Present illness Narrative [facility] NOTE NAME: DIOR CARVAJAL [facility]IN[facility] NO.: [id number] DATE OF SERVICE: 06/27/2023 ATTENDING PHYSICIAN: Macarena Bain MD [facility] Followup of multiple medical chronic issues She [...] continue statin therapy. DICTATED BY: MD PRASHANT Singleton/ASHLYNT JOB# [id number] [facility] documented in this encounter [facility] 06-19-2023 History of Present illness Narrative Images from the original note were not included. Connected Care Unit Progress Note Facility: [facility] Skilled Care Level of Care: Long-term [...] Unchanged. Medications: see current medication list in [facility] chart, reviewed (Medications in EPIC may not accurate, please see update in [facility] chart) Objective Data: Wt 176 lbs [...] Controlled - Continue current medications Zora Flores APRN.A&P MECHANIC We will continue to monitor for overall comfort, function and safety. Call for changes in condition. Electronically signed by Zora Flores APRN.CHRISTIANO June 19, 2023 9:50 AM documented in this encounter [facility] 05-25-2023 History of Present illness Narrative Dior Carvajal : 1965 Assisted: [facility]Assisted Living PCP: DR. BAIN Date last seen: [...] Hayder Bone DPM documented in this encounter [facility] 05-25-2023 Instructions Hayder Bone DPM - 05/25/2023 12:24 PM EST Pt not to attempt self care due to high risk. documented in this encounter [facility] 05-03-2023 History of Present illness Narrative [facility] NOTE NAME: CARVAJAL DIOROPAL NO.: [id number] DATE OF SERVICE: 05/03/2023 [facility] DATE OF : 1965 Follow up of [...] therapy. DICTATED BY: MD PRASHANT Price/Genie JOB# [id number] cc:[facility] documented in this encounter [facility] 02-28-2023 History of Present illness Narrative [facility] NOTE NAME: RAMEZ CARVAJAL NO.: [id number] DATE OF SERVICE: 02/28/2023 [facility] DATE OF : 1965 Follow up of [...] therapy. DICTATED BY: MD PRASHANT Price/Genie JOB# [id number] cc:[facility] documented in this encounter [facility] 02-13-2023 History of Present illness Narrative Images from the original note were not included. Connected Care Unit Progress Note Facility: [facility] Skilled Care Level of Care: Long-term [...] Unchanged. Medications: see current medication list in [facility] chart, reviewed (Medications in EPIC may not accurate, please see update in [facility] chart) Objective Data: Wt 178 lbs [...] 2023 9:15 AM documented in this encounter [facility] 01-02-2023 History of Present illness Narrative [facility] NOTE NAME: RAMEZ CARVAJAL NO.: [id number] DATE OF SERVICE: 01/02/2023 [facility] DATE OF : 1965 Followup of multiple [...] therapy. DICTATED BY: MD PRASHANT Price/Genie JOB# [id number] cc:[facility] documented in this encounter [facility] 12-12-2022 History of Present illness Narrative Images from the original note were not included. Connected Care Unit Progress Note Facility: [facility] Skilled Care Level of Care: Long-term [...] Unchanged. Medications: see current medication list in [facility] chart, reviewed (Medications in EPIC may not accurate, please see update in [facility] chart) Objective Data: Vital signs reviewed [...] condition. Electronically signed by Zora Flores APRN.CHRISTIANO December 12, 2022 10:11 AM documented in this encounter [facility] 11-03-2022 History of Present illness Narrative Dior Carvajal : 1965 Assisted: [facility]Assisted Living PCP: ODELL Date last seen: CHRISTIANO [...] Hayder Bone DPM documented in this encounter [facility] 11-03-2022 Instructions Hayder Bone DPM - 11/03/2022 9:46 AM EDT Pt not to attempt self care due to high risk. documented in this encounter [facility] 09-12-2022 History of Present illness Narrative Images from the original note were not included. Connected Care Unit Progress Note Facility: [facility] Skilled Care Level of Care: Skilled [...] Unchanged. Medications: see current medication list in [facility] chart, reviewed (Medications in EPIC may not accurate, please see update in [facility] chart) Objective Data: Vital signs reviewed [...] 2022 9:25 AM documented in this encounter [facility] 09-07-2022 History of Present illness Narrative Opened in error documented in this encounter [facility] 09-07-2022 History of Present illness Narrative Images from the original note were not included. Connected Care Unit Progress Note Facility: [facility] Skilled Care Level of Care: Skilled [...] Unchanged. Medications: see current medication list in [facility] chart, reviewed (Medications in EPIC may not accurate, please see update in [facility] chart) Objective Data: Vital signs reviewed [...] 2022 9:25 AM documented in this encounter [facility] 08-29-2022 History of Present illness Narrative Images from the original note were not included. Connected Care Unit Progress Note Facility: [facility] Skilled Care Level of Care: Skilled [...] Unchanged. Medications: see current medication list in [facility] chart, reviewed (Medications in [facility] may not accurate, please see update in [facility] chart) Objective Data: Vital signs reviewed [...] 2022 9:35 AM documented in this encounter [facility] 08-25-2022 History of Present illness Narrative Images from the original note were not included. Connected Care Unit Progress Note Facility: [facility] Skilled Care Level of Care: Skilled [...] Unchanged. Medications: see current medication list in [facility] chart, reviewed (Medications in [facility] may not accurate, please see update in [facility] chart) Objective Data: Vital signs reviewed [...] ICD10: M54.2, G89.29 Tramadol bid Zora Flores APRN.A&P MECHANIC We will continue to monitor for overall comfort, function and safety. Call for changes in condition. Electronically signed by Zora Flores APRN.CHRISTIANO August 25, 2022 9:04 AM documented in this encounter [facility] 08-24-2022 History of Present illness Narrative Dior Carvajal : 1965 Assisted: [facility]Assisted Living PCP: ODELL Date last seen: 08/15 [...] Hayder Bone DPM documented in this encounter [facility] 08-24-2022 Instructions Hayder Bone DPM - 08/24/2022 7:04 PM EDT Pt not to attempt self care due to high risk. documented in this encounter [facility] 08-23-2022 History of Present illness Narrative Images from the original note were not included. Connected Care Unit Progress Note Facility: [facility] Skilled Care Level of Care: Skilled [...] Unchanged. Medications: see current medication list in [facility] chart, reviewed (Medications in EP[facility] may not accurate, please see update in [facility] chart) Objective Data: Wt 179lbs Vital [...] ICD10: M54.2, G89.29 Tramadol bid Zora Flores APRN.CHRISTIANO We will continue to monitor for overall comfort, function and safety. Call for changes in condition. Electronically signed by Zora Flores APRN.CNP August 23, 2022 9:34 AM documented in this encounter [facility] 08-08-2022 History of Present illness Narrative Images from the original note were not included. Connected Care Unit Progress Note Facility: [facility] Skilled Care Level of Care: Skilled [...] Patient seen today for fu here for alf therapy having difficulty caring for self at [...] Unchanged. Medications: see current medication list in [facility] chart, reviewed (Medications in [facility] may not accurate, please see update in [facility] chart) Objective Data: Vital signs reviewed [...] G89.29 Tramadol 50mg po bid Zora Flores APRN.CHRISTIANO We will continue to monitor for overall comfort, function and safety. Call for changes in condition. Electronically signed by Zora Flores APRN.CNP August 08, 2022 9:17 AM documented in this encounter [facility] 08-07-2022 Miscellaneous Notes Order signed by Dr. Escoto and mailed. Adalberto Woods MA Please sign order. Placed in green folder. Riley Palmer MA Done Leela Escoto DO Patient left message stating her handicap parking placard is going to be expiring and she would like an order for a new one mailed to [address] [place] [address]. Please advise. Adalberto Woods MA documented in this encounter [facility] 08-07-2022 History of Present illness Narrative [facility] NOTE NAME: RAMEZ CARVAJAL NO.: [id number] DATE OF SERVICE: 08/07/2022 [facility] DATE OF : 1965 New patient history [...] care. DICTATED BY: MD PRASHANT Price/Genie JOB# [id number] cc:[facility] documented in this encounter [facility] 07-31-2022 Miscellaneous Notes Pharmacy requesting refills as follows: Last Office Visit 05/25/22. Last Refill 06/30/22. Requested Prescriptions Pending Prescriptions Disp Refills traMADol (ULTRAM) 50 mg tablet 60 tablet 0 Sig: Take 1 tablet by mouth twice daily for 30 days. Please review and advise. Xochitl Torres MA documented in this encounter [facility] 07-19-2022 Miscellaneous Notes Message left on vm. Patient needs apt. To get into long care facitly . Please contact Katie at [phone] to schedule apt. Thanks. Riley Palmer MA documented in this encounter [facility] 07-13-2022 Miscellaneous Notes Patient is informed Xochitl [...] Xochitl Torres MA documented in this encounter [facility] 06-30-2022 Miscellaneous Notes Patient requesting refills as follows: Last Office Visit 05/25/22. Last Refill 05/31/22. Requested Prescriptions Pending Prescriptions Disp Refills traMADol (ULTRAM) 50 mg tablet 60 tablet 0 Sig: Take 1 tablet by mouth twice daily for 30 days. Please review and advise. Xochitl Torres MA documented in this encounter [facility] 05-31-2022 Miscellaneous Notes Patient requesting refills as follows: Last Office Visit 05/25/22. Last Refill 05/19/22. Requested Prescriptions Pending Prescriptions Disp Refills traMADol (ULTRAM) 50 mg tablet 60 tablet 0 Sig: Take 1 tablet by mouth twice daily for 30 days. Please review and advise. Xochitl Torres MA documented in this encounter [facility] 05-25-2022 Note HNO ID: [id number] Author: Leela Escoto, DO Service: ? Author [...] pt's [facility] and cannot go to another [...] will be wors (more content not included)... [facility] 05-25-2022 Miscellaneous Notes Left a message for the pharmacy to call back and let us know. Xochitl Torres MA ----- Message from Leela Escoto DO sent at 05/25/2022 11:40 AM EST ----- Please call [facility] pharmacy and find out when they will be getting tramadol back Leela Escoto DO documented in this encounter [facility] 05-25-2022 Nurse Note Pt. Given covid booster with no complaints. Riley Palmer MA documented in this encounter [facility] 05-25-2022 History of Present illness Narrative Subjective [...] pt's father cannot continue to go to [facility] weekly and cannot go to another pharmacy [...] immunization - ICD9: V03.89, ICD10: Z23 - PFIZER-BIONTECH COVID-19 BIVALENT BOOSTER VACCINE, AGE 12+ YR Leela Escoto DO PDMP website checked and validated. All prescriptions have been APPROPRIATELY filled. No suspicious activity was identified. 05/25/2022 by Leela Escoto DO documented in this encounter [facility] 05-22-2022 Miscellaneous Notes patient phones requesting refills as follows: Last seen 02/24/22 . Last refill 11/24/21 . Requested Prescriptions Pending Prescriptions Disp Refills omeprazole (PRILOSEC) 40 mg capsule 90 capsule 1 Sig: Take 1 capsule by mouth once daily. Please review and advise. Adalberto Woods MA documented in this encounter [facility] 05-19-2022 Miscellaneous Notes patient phones requesting refills as follows: Last seen 02/24/22 . Last refill 04/21/22 . Requested Prescriptions Pending Prescriptions Disp Refills traMADol (ULTRAM) 50 mg tablet 60 tablet 0 Sig: Take 1 tablet by mouth twice daily for 30 days. Please review and advise. Adalberto Woods MA documented in this encounter [facility] 04-21-2022 Miscellaneous Notes Patient requesting refills: Last office visit 02/24/2022. Last refill 03/14/2022. Nov 05/25/2022 Requested Prescriptions Pending Prescriptions Disp Refills traMADol (ULTRAM) 50 mg tablet 60 tablet 0 Sig: Take 1 tablet by mouth twice daily for 30 days. Please review and advise. Riley Palmer MA documented in this encounter [facility] 04-12-2022 History of Present illness Narrative Dior [...] follow up in 6 months Elise Heck APRN.A&P MECHANIC documented in this encounter [facility] 04-12-2022 Nurse Note Bladder scan obtained 87 ml of urine documented in this encounter [facility] 03-29-2022 History of Present illness Narrative Dior [...] Elise Heck APRN.CNP documented in this encounter [facility] 03-24-2022 Miscellaneous Notes Patient notified of results, verbalizes understanding of instructions. She has an appt 03/29/2022 in [place] with Elise Heck to discuss her inability to empty her bladder. Swati Brown ----- Message from Kelvin Nolasco PA-C sent at 03/24/2022 12:11 PM EST ----- Finish Antibiotics, if no further urinary concerns , may not need the appointment The bacteria is not cause for UTI , but needs to finish the antibiotic any way If much improved can cancel CHRISTINE Talbot, AKALEX ----- Message ----- From: Chel Matthews [facility] Sent: 03/23/2022 11:08 AM EST To: Kelvin Nolasco PA-C Please review final results for pt seen at [facility]. Hull placed. Pt was prescribed nitrofurantoin at discharge. Spoke with pt regarding current symptoms. Pt states she feels better. Has appointment with you on 03/31/22. Thank you documented in this encounter [facility] 03-23-2022 Miscellaneous Notes Dior Cee RNmanufacturing operations manager for [facility] calling and patient was to get ER follow up appt in 3 days from [place]. Hull cath in place and taking antibiotics. No availability, and she had one booked in [place] next week on Sunday, but offered Elise Coyner on Sunday in [place] and she took the appt. Patient aware and will be here. documented in this encounter [facility] 03-22-2022 Note Patient Outreach (AG FAMPLE) DIOR CARVAJAL ([id number]) 1965 F Date Time Provider Department 03/22/22 RILEY PALMER During your visit today, we recorded the following information about you: Riley Palmer MA 03/22/2022 9:16 AM Signed ED Follow Up: Patient discharged from [facility] ED on 03/20/2022. 1. How [...] you able to contact the office or transition assistant provider prior to your ED visit? Not [...] Encounter Status:Closed by RILEY PALMER on 03/22/22 [facility] 03-22-2022 Note HNO ID: [id number] Author: Riley Palmer MA Service: ? Author Type: Automation Manager Type: Progress Notes Filed: 03/22/2022 9:16 AM Note Text: ED Follow Up: Patient discharged from [facility] ED on 03/20/2022. 1. How [...] you able to contact the office or transition assistant provider prior to your ED visit? Not applicable 5. Is there anything else I can do for you today? Not applicable Tried contacting patient several times the mail box is full and cannot accept any messages at this time. Riley Palmer MA [facility] 03-22-2022 History of Present illness Narrative ED Follow Up: Patient discharged from [facility] ED on 03/20/2022. 1. How [...] you able to contact the office or transition assistant provider prior to your ED visit? Not applicable 5. Is there anything else I can do for you today? Not applicable Tried contacting patient several times the mail box is full and cannot accept any messages at this time. Riley Palmer MA documented in this encounter [facility] 03-14-2022 Miscellaneous Notes Patient requesting refills as follows: Last Office Visit 12/02/21. Last Refill 02/14/22. Requested Prescriptions Pending Prescriptions Disp Refills traMADol (ULTRAM) 50 mg tablet 60 tablet 0 Sig: Take 1 tablet by mouth twice daily for 30 days. Please review and advise. Xochitl Torres MA documented in this encounter [facility] 02-24-2022 Note HNO ID: [id number] Author: Leela Escoto, DO Service: ? Author [...] rash. Nails: There (more content not included)... [facility] 02-24-2022 History of Present [...] R10.9, G89.29 Under the care of Dr. Nieto, GI 3. Smoker - ICD9: 305.1, ICD10: [...] Leela Escoto DO documented in this encounter [facility] 02-14-2022 Miscellaneous Notes Patient requesting refills as [...] Xochitl Torres MA documented in this encounter [facility] 01-11-2022 Miscellaneous Notes Pt. requesting refills: Last [...] Riley Palmer MA documented in this encounter [facility] 12-29-2021 Miscellaneous Notes patient phones requesting refills as follows: Last seen 12/02/21 . Last refill 09/29/21 . Requested Prescriptions Pending Prescriptions Disp Refills mirabegron (MYRBETRIQ) 25 mg Tb24 90 tablet 1 Sig: Take 1 tablet by mouth once daily. Please review and advise. Adalberto Woods MA documented in this encounter [facility] 12-14-2021 Miscellaneous Notes Pt. requesting refills: Last office visit 12/02/21. Last refill 11/14/2021 nov 02/24/22 Requested Prescriptions Pending Prescriptions Disp Refills traMADol (ULTRAM) 50 mg tablet 60 tablet 0 Sig: Take 1 tablet by mouth twice daily for 30 days. Please review and advise. Riley Palmer MA documented in this encounter [facility] 12-02-2021 Note HNO ID: [id number] Author: Leela Escoto, DO Service: ? Author Type: Physician Type: Progress Notes Filed: 12/17/2021 8:31 PM Note Text: SUBJECTIVE: 56 year old female for annual routine checkup. I have fully reviewed the past medical, surgical, social and family history and updated the Histories section of [facility]. Pt has history of chronic arthritis She [...] Musculoskeletal: No join (more content not included)... [facility] 11-24-2021 Miscellaneous Notes patient phones requesting refills as follows: Last seen 08/26/21 . Last refill 05/10/21 . Requested Prescriptions Pending Prescriptions Disp Refills omeprazole (PRILOSEC) 40 mg capsule 90 capsule 1 Sig: Take 1 capsule by mouth once daily. Please review and advise. Adalberto Woods MA documented in this encounter [facility] 11-11-2021 Miscellaneous Notes patient phones requesting refills as follows: Last seen 09/22/21 . Last refill 10/11/21 . Requested Prescriptions Pending Prescriptions Disp Refills traMADol (ULTRAM) 50 mg tablet 60 tablet 0 Sig: Take 1 tablet by mouth twice daily for 30 days. Please review and advise. Adalberto Woods MA documented in this encounter [facility] 10-11-2021 Miscellaneous Notes patient phones requesting refills as follows: Last seen 08/26/21 . Last refill 09/14/21 . Pending Prescriptions Disp Refills TRAMADOL 50 MG TABLET 60 tablet 0 Sig: Take 1 tablet by mouth twice daily for 30 days. ANNA Class: C-IV KEVON: No Please review and advise. Adalberto Woods MA documented in this encounter [facility] 09-29-2021 Miscellaneous Notes Last OV 08/26/21 Apt 12/02/21 Patient phones requesting refills as follows: Pending Prescriptions Disp Refills MIRABEGRON ER 25 MG TABLET,EXTENDED RELEASE 24 HR 90 tablet 1 Sig: Take 1 tablet by mouth once daily. KEVON: No Please review and advise. Carmelita Hummel MA documented in this encounter [facility] 09-27-2021 Miscellaneous Notes Pharmacy requesting refills as follows: Last Office Visit 08/26/21 nov 12/02/21. Last Refill 04/08/21. Pending Prescriptions Disp Refills ATORVASTATIN 20 MG TABLET 90 tablet 1 Sig: Take 1 tablet by mouth once daily. KEVON: No Please review and advise. Xochitl Torres MA documented in this encounter [facility] 09-14-2021 Miscellaneous Notes Patient requesting refills: Last office visit 08/26/2021. Last refill 08/08/2021 nov 12/02/2021 Pending Prescriptions Disp Refills TRAMADOL 50 MG TABLET 60 tablet 0 Sig: Take 1 tablet by mouth twice daily for 30 days. ANNA Class: C-IV KEVON: No Please review and advise. Riley Palmer MA documented in this encounter [facility] 08-08-2021 Miscellaneous Notes Patient requesting refills: Last office visit 05/26/2021 Last refill 07/11/2021 Nov 08/26/2021 Pending Prescriptions Disp Refills TRAMADOL 50 MG TABLET 60 tablet 0 Sig: Take 1 tablet by mouth twice daily for 30 days. ANNA Class: C-IV KEVON: No Please review and advise. Riley Palmer MA documented in this encounter [facility] 07-11-2021 Miscellaneous Notes Last OV 05/26/21 Apt 08/26/21 UDS 11/16/20 Pharmacy calls in requesting the following refill(s): Pending Prescriptions Disp Refills TRAMADOL 50 MG TABLET 60 tablet 0 Sig: Take 1 tablet by mouth twice daily for 30 days. ANNA Class: C-IV KEVON: No Carmelita Hummel MA documented in this encounter [facility] 06-27-2021 Miscellaneous Notes Last OV 05/26/21 Apt 08/26/21 Labs 06/23/21 Patient phones requesting refills as follows: Pending Prescriptions Disp Refills MIRABEGRON ER 25 MG TABLET,EXTENDED RELEASE 24 HR 90 tablet 1 Sig: Take 1 tablet by mouth once daily. KEVON: No Please review and advise. Carmelita Hummel MA documented in this encounter [facility] 06-23-2021 Miscellaneous Notes Patient informed. Xochitl Torres MA ----- Message from Orin Smith MD sent at 06/23/2021 2:04 PM EDT ----- Patient's triglycerides are slightly elevated. Continue to monitor diet. Remaining cholesterol and other labs are fairly unremarkable. [facility] Diagnosis Overactive bladder Hypertonicity of bladder [facility] Osteoarthritis of multiple joints, unspecified osteoarthritis type Chronic neck pain Cervicalgia [facility] Diagnosis Osteoarthritis of multiple joints, unspecified osteoarthritis type Chronic neck pain Cervicalgia [facility] Diagnosis Osteoarthritis of multiple joints, unspecified osteoarthritis type Chronic neck pain Cervicalgia [facility] Diagnosis Pure hypercholesterolemia [facility] Diagnosis Osteoarthritis of multiple joints, unspecified osteoarthritis type Chronic neck pain Cervicalgia [facility] Diagnosis Heartburn [facility] Diagnosis Osteoarthritis of multiple joints, unspecified osteoarthritis type Chronic neck pain Cervicalgia [facility] Diagnosis Overactive bladder Hypertonicity of bladder [facility] Diagnosis Osteoarthritis of multiple joints, unspecified osteoarthritis type Chronic neck pain Cervicalgia Pure hypercholesterolemia [facility] Diagnosis Osteoarthritis of multiple joints, unspecified osteoarthritis type Chronic neck pain Cervicalgia Essential hypertension Unspecified essential hypertension [facility]* Diagnosis Chronic cervical pain- Primary Cervicalgia Chronic abdominal pain Abdominal pain, unspecified site Smoker Tobacco use disorder [facility] Diagnosis Osteoarthritis of multiple joints, unspecified osteoarthritis type Chronic neck pain Cervicalgia [facility]* Diagnosis Urine retention- Primary Retention of urine, unspecified Acute cystitis without hematuria Acute cystitis Urge incontinence [facility] Diagnosis Overactive bladder- Primary Hypertonicity of bladder Urine retention Retention of urine, unspecified Frequent UTI Urinary tract infection, site not specified Atrophic vaginitis Postmenopausal atrophic vaginitis documented in this encounter [facility] note* Diagnosis Osteoarthritis of multiple joints, unspecified osteoarthritis type Chronic neck pain Cervicalgia documented in this encounter [facility] note* Diagnosis Heartburn documented in this encounter [facility] note* Diagnosis Essential hypertension- Primary Unspecified essential hypertension Chronic cervical pain Cervicalgia Grief Adjustment disorder with depressed mood Smoker Tobacco use disorder Encounter for immunization Need for other specified prophylactic vaccination against single bacterial disease documented in this encounter [facility] note* Diagnosis Osteoarthritis of multiple joints, unspecified osteoarthritis type Chronic neck pain Cervicalgia documented in this encounter [facility] note* Diagnosis Osteoarthritis of multiple joints, unspecified osteoarthritis type Chronic neck pain Cervicalgia documented in this encounter [facility] note* Diagnosis Pure hypercholesterolemia documented in this encounter [facility] note* Diagnosis Primary osteoarthritis involving multiple joints- Primary documented in this encounter [facility] note* Diagnosis Essential hypertension- Primary Unspecified essential hypertension Abnormal gait Abnormality of gait Chronic cervical pain Cervicalgia documented in this encounter [facility] note* Diagnosis Pain due to onychomycosis of toenail of right foot- Primary Pain due to onychomycosis of toenail of left foot Aspirin long-term use Encounter for long-term (current) use of aspirin documented in this encounter [facility] note* Diagnosis Essential hypertension- Primary Unspecified essential hypertension Abnormal gait Abnormality of gait Chronic cervical pain Cervicalgia documented in this encounter [facility] note* Diagnosis Osteoarthritis of multiple joints, unspecified osteoarthritis type Chronic neck pain Cervicalgia documented in this encounter [facility] note* Diagnosis Osteoarthritis of multiple joints, unspecified osteoarthritis type- Primary Essential hypertension Unspecified essential hypertension Chronic neck pain Cervicalgia Abnormal gait Abnormality of gait documented in this encounter [facility] note* Diagnosis Osteoarthritis of multiple joints, unspecified osteoarthritis type- Primary Essential hypertension Unspecified essential hypertension Chronic neck pain Cervicalgia Abnormal gait Abnormality of gait documented in this encounter [facility] note* Diagnosis OPENED IN ERROR- Primary To allow closing an encounter opened in error (used in SmartSet) documented in this encounter [facility] note* Diagnosis Osteoarthritis of multiple joints, unspecified osteoarthritis type Chronic neck pain Cervicalgia documented in this encounter [facility] note* Diagnosis Nail dystrophy- Primary Other specified disease of nail Aspirin long-term use Encounter for long-term (current) use of aspirin [facility] Diagnosis Osteoarthritis of multiple joints, unspecified osteoarthritis type- Primary Chronic neck pain Cervicalgia Essential hypertension Unspecified essential hypertension [facility] Diagnosis Nail dystrophy- Primary Other specified disease of nail Aspirin long-term use Encounter for long-term (current) use of aspirin [facility] Diagnosis Osteoarthritis of multiple joints, unspecified osteoarthritis type- Primary Chronic neck pain Cervicalgia Essential hypertension Unspecified essential hypertension [facility] Diagnosis Osteoarthritis of multiple joints, unspecified osteoarthritis type Chronic neck pain Cervicalgia [facility] Diagnosis Osteoarthritis of multiple joints, unspecified osteoarthritis type- Primary Left hip pain Pain in joint, pelvic region and thigh [facility] Diagnosis Nail dystrophy- Primary Other specified disease of nail Aspirin long-term use Encounter for long-term (current) use of aspirin [facility] Diagnosis Osteoarthritis of multiple joints, unspecified osteoarthritis type- Primary Left hip pain Pain in joint, pelvic region and thigh Chronic neck pain Cervicalgia Essential hypertension Unspecified essential hypertension [facility] Diagnosis Leukocytosis, unspecified type- Primary Confusion Unspecified psychosis [facility]* Diagnosis Foul smelling urine- Primary Other nonspecific finding on examination of urine [facility] Diagnosis Osteoarthritis of multiple joints, unspecified osteoarthritis type- Primary Essential hypertension Unspecified essential hypertension Chronic cervical pain Cervicalgia [facility] Diagnosis Foul smelling urine- Primary Other nonspecific finding on examination of urine Recurrent UTI Urinary tract infection, site not specified [facility] Diagnosis Brain lesion [G93.9]- Primary Other conditions of brain [facility] Diagnosis Fall, initial encounter- Primary [facility] 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, unspecified site Hemiparesis, unspecified hemiparesis etiology, unspecified laterality (HCC) Mild cognitive impairment Mild cognitive impairment, so stated Cognitive decline Unspecified persistent mental disorders due to conditions classified elsewhere [facility] Diagnosis Astrocytoma (HCC)- Primary Malignant neoplasm of brain, unspecified site [facility] Diagnosis Chronic cervical pain- Primary Cervicalgia [facility] Diagnosis Nail dystrophy- Primary Other specified disease of nail Aspirin long-term use Encounter for long-term (current) use of aspirin [facility] Diagnosis Fall, initial encounter- Primary [facility] Diagnosis Osteoarthritis involving multiple joints on both sides of body- Primary [facility] Diagnosis Astrocytoma (HCC) Malignant neoplasm of brain, unspecified site 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, unspecified site Cognitive decline Unspecified persistent mental disorders due to conditions classified elsewhere 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, unspecified site Cognitive decline Unspecified persistent mental disorders due to conditions classified elsewhere [facility] Diagnosis Astrocytoma (HCC) Malignant neoplasm of brain, unspecified site 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, unspecified site Cognitive decline Unspecified persistent mental disorders due to conditions classified elsewhere [facility] Diagnosis Allergy to intravenous contrast media- [...] (HCC) Quadriplegia, unspecified [facility] 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, unspecified site [facility] Diagnosis Allergy to intravenous contrast media Allergy, unspecified not elsewhere classified 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, unspecified site Mild cognitive impairment Mild cognitive impairment, so stated Cognitive decline Unspecified persistent mental disorders due to conditions classified elsewhere [facility] Diagnosis Acute cystitis without hematuria- Primary Acute cystitis [facility] Diagnosis Allergy to intravenous contrast media Allergy, unspecified not elsewhere classified 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, unspecified site Mild cognitive impairment Mild cognitive impairment, so stated Cognitive decline Unspecified persistent mental disorders due to conditions classified elsewhere [facility] Diagnosis Brain tumor (HCC)- Primary Neoplasm of unspecified nature of brain [facility]* 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 [...] Other postprocedural status documented in this encounter [facility] note* Diagnosis Allergy to intravenous contrast media [...] (HCC) Quadriplegia, unspecified documented in this encounter [facility] note* Diagnosis Astrocytoma brain tumor (HCC) [...] encounter for fracture [facility]* Diagnosis Hyperlipidemia, unspecified hyperlipidemia type- Primary [...] (HCC) Quadriplegia, unspecified documented in this encounter [facility] note* 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, unspecified site [facility] 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 [...] Spasm of muscle [facility] noteNo assessment information availableWReg[facility] Work Phone: Evaluation note* 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, unspecified site [facility] center note* Diagnosis Spasticity- Primary Abnormal involuntary movements 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, unspecified site [facility] 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, unspecified site [facility] 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, unspecified site [facility]* 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 Unspecified monoplegia Spasticity Abnormal involuntary movements History of brain tumor Personal history of other disorders of nervous system and sense organs History of stroke Transient ischemic attack (TIA), and cerebral infarction without residual deficits [facility] 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, unspecified site Spasticity Abnormal involuntary movements Cognitive decline Unspecified persistent mental disorders due to conditions classified elsewhere [facility]* Diagnosis Glioblastoma (HCC)- Primary Malignant neoplasm of brain, unspecified site documented in this encounter [facility] for referral (narrative)* Diagnostic Procedure Only [...] OR 3 VIEWS Mini Whyte MD [address] [place] [address] [facility] [place] [address] Referral ID Status Reason Start Date Expiration Date Visits Requested Visits Authorized [id number] New Request Auto-Generat ed Referral 4 04/03/2025 [...] Quadriplegia (HCC) Procedures CONSULT TO NEUROLOGY OFFICE/OUTPATIENT [facility] 60 MINUTES Mini Whyte MD [address] [place] [address] [facility] [address] [facility] [address] Referral ID Status Reason Start Date Expiration Date Visits Requested Visits Authorized [id number] Authorized PCP Requested Referral 4 03/04/2025 1 1 * Consult, Test, Treat (Routine) - Authorized Specialty Diagnoses / Procedures Referred By Contac t Referred To Contact [facility] [place] Diagnoses Allergy to intravenous contrast media Anaplastic astrocytoma (HCC) Mild cognitive impairment Cognitive decline Occlusion and stenosis of unspecified carotid artery Pathological fracture, other site, initial encounter for fracture Injury of cervical spinal cord, sequela (HCC) Quadriplegia (HCC) Procedures CONSULT TO [facility] OFFICE/OUTPATIENT [facility] 60 MINUTES Mini Whyte MD [address] [place] [id number] [facility] [address] [place] [address] Referral ID Status Reason Start Date Expiration Date Visits Requested Visits Authorized [id number] Authorized PCP Requested Referral 4 03/04/2025 1 [...] HIGH MDM 60 MINUTES Mini Whyte MD [address] [address] [facility] [address] [place] [address] Referral ID Status Reason Start Date Expiration Date Visits Requested Visits Authorized [id number] Authorized PCP Requested Referral 4 03/04/2025 1 1 * MRI/CT (Routine) - New Request Specialty Diagnoses / Procedures Referred By Jaycee kerr Referred To Contact MR IMAGING Diagnoses Allergy to intravenous contrast media Anaplastic astrocytoma (HCC) Mild cognitive impairment Cognitive decline Occlusion and stenosis of unspecified carotid artery Pathological fracture, other site, initial encounter for fracture Procedures MRI CERVICAL SPINE WO/W IVCON MRI SPINAL CANAL CERVICAL W/O & W/CONTR SONIAL Mini Whyte MD [address] [address] Mr Imaging [facility]95 Referral ID Status Reason Start Date Expiration Date Visits Requested Visits Authorized [id number] New Request Auto-Generat ed Referral 4 04/03/2025 [...] MRA, NECK; W/O CONTRAST Mini Whyte MD [address] [place] [address] Mr [facility] [place] [address] Referral ID Status Reason Start Date Expiration Date Visits Requested Visits Authorized [id number] New Request Auto-Generat ed Referral 04/03/2025 1 1 * MRI/CT (Routine) - New Request Specialty Diagnoses / Procedures Referred By Jaycee kerr Referred To Contact MR IMAGING Diagnoses Allergy to intravenous contrast media Anaplastic astrocytoma (HCC) Mild cognitive impairment Cognitive decline Occlusion and stenosis of unspecified carotid artery Pathological fracture, other site, initial encounter for fracture Procedures MRA BRAIN WO IVCON MRA, HEAD W/O CONTRAST Mini Whyte MD [address] [place] [address] Mr [facility] [place] [address] Referral ID Status Reason Start Date Expiration Date Visits Requested Visits Authorized [id number] New Request Auto-Generat ed Referral 04/03/2025 1 1 [facility] (narrative)No reason for referral information availableWReg[facility] Work Phone: Reason for visit Narrative* Diagnostic Procedure Only (Routine) - Closed Specialty Diagnoses / Procedures Referred By Jaycee kerr Referred To Contact XR IMAGING Diagnoses Allergy to intravenous contrast media Anaplastic astrocytoma (HCC) Mild cognitive impairment Cognitive decline Occlusion and stenosis of unspecified carotid artery Pathological fracture, other site, initial encounter for fracture Injury of cervical spinal cord, sequela (HCC) Quadriplegia (HCC) Procedures XR CERVICAL 2V FLEX/EXT RADEX SPINE CERVICAL 2 OR 3 VIEWS Mini Whyte MD [address] [place] [address] Phone: tel: fax: XR [facility] [place] [address] Referral ID Status Reason Start Date Expiration Date V isits Requested Visits Authorized [id number] Closed Auto-Generate d Referral 03/04/2024 04/03/2025 1 1 [facility] for visit Narrative* MRI/CT (Routine) - Closed Specialty Diagnoses / Procedures Referred By Contac t Referred To Contact MR IMAGING Diagnoses Anaplastic astrocytoma (HCC) Procedures MRI BRAIN WO/W IVCON MRI BRAIN BRAIN STEM W/O W/CONTRAST MATERIAL Mini Whyte MD [address] [place] [address] Phone: tel: fax: MR IMAGING [place] [address] Referral ID Status Reason Start Date Expiration Date V isits Requested Visits Authorized [id number] Closed Auto-Generate d Referral 05/28/2024 06/27/2025 1 1 [facility] for visit Narrative* MRI/CT (Routine) - Closed Specialty Diagnoses / Procedures Referred By Contac t Referred To Contact MR IMAGING Diagnoses Astrocytoma brain tumor (HCC) Procedures MRI BRAIN WO/W IVCON MRI BRAIN BRAIN STEM W/O W/CONTRAST MATERIAL Mini Whyte MD [address] [place] [address] Phone: tel: fax: MR IMAGING [place] [address] Referral ID Status Reason Start Date Expiration Date V isits Requested Visits Authorized [id number] Closed Auto-Generate d Referral 08/05/2024 09/04/2025 1 1 [facility] Summary Purpose Family History No Family History [...] MIN Mini Whyte MD [address] [address] [facility] [address] [place] [address] Referral ID Status Reason Start Date Expiration Date Visits Requested Visits Authorized [id number] Ref Not Required PCP Requested Referral 4 01/20/2025 1 3 Specialty Diagnoses / Procedures Referred By Contac t Referred To Contact MR IMAGING Diagnoses Astrocytoma (HCC) Procedures MRI BRAIN WO/W IVCON MRI BRAIN BRAIN STEM W/O W/CONTRAST MATERIAL Mini Whyte MD [address] [address] Mr [facility] [place] [address] Referral ID Status Reason Start Date Expiration Date Visits Requested Visits Authorized [id number] Authorized Auto-Generat ed Referral 02/21/2025 1 1 Specialty Diagnoses / Procedures Referred By Contac t Referred To Contact MR IMAGING Diagnoses Anaplastic astrocytoma (HCC) Cognitive decline Procedures MRI BRAIN WO IVCON MRI BRAIN BRAIN STEM W/O CONTRAST MATERIAL Mini Whyte MD [address] [address] Mr Imaging [facility]95 Referral ID Status Reason Start Date Expiration Date Visits Requested Visits Authorized [id number] New Request Auto-Generat ed Referral 02/28/2024 03/29/2025 1 1 Specialty Diagnoses / Procedures Referred By Contac t Referred To Contact MR IMAGING Diagnoses Astrocytoma brain tumor (HCC) Procedures MRI BRAIN WO/W IVCON MRI BRAIN BRAIN STEM W/O W/CONTRAST MATERIAL Mini Whyte MD [address] [place] [address] [place] [address] Referral ID Status Reason Start Date Expiration Date Visits Requested Visits Authorized [id number] Authorized Auto-Generat ed Referral 04/03/2025 1 1 Chief Complaint and Reason for Visit Chief Complaint Admit Date LABWORK March 27, 2024 7: 20am [facility] March 28, 2024 4:00am [facility] March 31, 2024 5:00am COGNITIVE DECLINE, POST SPINAL CORD SURG JOSEPHINE April 29, 2024 11:28am Chief Complaint Admit Date COGNITIVE DECLINE, POST SPINAL CORD SURG JOSEPHINE April 29, 2024 11:28am LABWORK August 07, 2024 5:00a m LABWORK August 08, 2024 5:00a m [facility] LAB WORK August 13, 2024 4:0 0am Chief Complaint Admit Date [facility] LAB WORK November 18, 2024 5:00am LAB WORK November 19, 2024 3: 30pm [facility] LAB WORK December 02 5:00am Additional Source Comments INFORMATION SOURCE (unrecogn ized section and content) DATE CREATED AUTHOR 06/22/2020 [facility] DATE CREATED AUTHOR AUTHOR'S ORGANIZ ATION 01/21/2022 [facility] DATE CREATED AUTHOR AUTHOR'S ORGANIZ ATION 08/07/2022 [facility] DATE CREATED AUTHOR AUTHOR'S ORGANIZ ATION 01/23/2025 [facility] DATE CREATED AUTHOR AUTHOR'S ORGANIZ ATION 01/24/2025 [facility] Source Comments (unrecognize d section and [...] or prosecute any alcohol or drug abuse patient.[facility] CenterIn the event this information is protected by the Federal Confidentiality of Alcohol and Drug Abuse Patient Records regulations: The Federal rules restrict any use of the information to criminally investigate or prosecute any alcohol or drug abuse patient.[facility] CenterIn the event this information is protected by the Federal Confidentiality of Alcohol and Drug Abuse Patient Records regulations: The Federal rules restrict any use of the information to criminally investigate or prosecute any alcohol or drug abuse patient.[facility] CenterIn the event this information is protected by the Federal Confidentiality of Alcohol and Drug Abuse Patient Records regulations: The Federal rules restrict any use of the information to criminally investigate or prosecute any alcohol or drug abuse patient.[facility] CenterIn the event this information is protected by the Federal Confidentiality of Alcohol and Drug Abuse Patient Records regulations: The Federal rules restrict any use of the information to criminally investigate or prosecute any alcohol or drug abuse patient.[facility] CenterIn the event this information is protected by the Federal Confidentiality of Alcohol and Drug Abuse Patient Records regulations: The Federal rules restrict any use of the information to criminally investigate or prosecute any alcohol or drug abuse patient.[facility] CenterIn the event this information is protected by the Federal Confidentiality of Alcohol and Drug Abuse Patient Records regulations: The Federal rules restrict any use of the information to criminally investigate or prosecute any alcohol or drug abuse patient.[facility] CenterIn the event this information is protected by the Federal Confidentiality of Alcohol and Drug Abuse Patient Records regulations: The Federal rules restrict any use of the information to criminally investigate or prosecute any alcohol or drug abuse patient.[facility] CenterIn the event this information is protected by the Federal Confidentiality of Alcohol and Drug Abuse Patient Records regulations: The Federal rules restrict any use of the information to criminally investigate or prosecute any alcohol or drug abuse patient.[facility] CenterIn the event this information is protected by the Federal Confidentiality of Alcohol and Drug Abuse Patient Records regulations: The Federal rules restrict any use of the information to criminally investigate or prosecute any alcohol or drug abuse patient.[facility] CenterIn the event this information is protected by the Federal Confidentiality of Alcohol and Drug Abuse Patient Records regulations: The Federal rules restrict any use of the information to criminally investigate or prosecute any alcohol or drug abuse patient.[facility] CenterIn the event this information is protected by the Federal Confidentiality of Alcohol and Drug Abuse Patient Records regulations: The Federal rules restrict any use of the information to criminally investigate or prosecute any alcohol or drug abuse patient.[facility] CenterIn the event this information is protected by the Federal Confidentiality of Alcohol and Drug Abuse Patient Records regulations: The Federal rules restrict any use of the information to criminally investigate or prosecute any alcohol or drug abuse patient.[facility] CenterIn the event this information is protected by the Federal Confidentiality of Alcohol and Drug Abuse Patient Records regulations: The Federal rules restrict any use of the information to criminally investigate or prosecute any alcohol or drug abuse patient.[facility] CenterIn the event this information is protected by the Federal Confidentiality of Alcohol and Drug Abuse Patient Records regulations: The Federal rules restrict any use of the information to criminally investigate or prosecute any alcohol or drug abuse patient.[facility] CenterIn the event this information is protected by the Federal Confidentiality of Alcohol and Drug Abuse Patient Records regulations: The Federal rules restrict any use of the information to criminally investigate or prosecute any alcohol or drug abuse patient.[facility] CenterIn the event this information is protected by the Federal Confidentiality of Alcohol and Drug Abuse Patient Records regulations: The Federal rules restrict any use of the information to criminally investigate or prosecute any alcohol or drug abuse patient.[facility] CenterIn the event this information is protected by the Federal Confidentiality of Alcohol and Drug Abuse Patient Records regulations: The Federal rules restrict any use of the information to criminally investigate or prosecute any alcohol or drug abuse patient.[facility] CenterIn the event this information is protected by the Federal Confidentiality of Alcohol and Drug Abuse Patient Records regulations: The Federal rules restrict any use of the information to criminally investigate or prosecute any alcohol or drug abuse patient.[facility] CenterIn the event this information is protected by the Federal Confidentiality of Alcohol and Drug Abuse Patient Records regulations: The Federal rules restrict any use of the information to criminally investigate or prosecute any alcohol or drug abuse patient.[facility] CenterIn the event this information is protected by the Federal Confidentiality of Alcohol and Drug Abuse Patient Records regulations: The Federal rules restrict any use of the information to criminally investigate or prosecute any alcohol or drug abuse patient.[facility] CenterIn the event this information is protected by the Federal Confidentiality of Alcohol and Drug Abuse Patient Records regulations: The Federal rules restrict any use of the information to criminally investigate or prosecute any alcohol or drug abuse patient.[facility] CenterIn the event this information is protected by the Federal Confidentiality of Alcohol and Drug Abuse Patient Records regulations: The Federal rules restrict any use of the information to criminally investigate or prosecute any alcohol or drug abuse patient.[facility] CenterIn the event this information is protected by the Federal Confidentiality of Alcohol and Drug Abuse Patient Records regulations: The Federal rules restrict any use of the information to criminally investigate or prosecute any alcohol or drug abuse patient.[facility] CenterIn the event this information is protected by the Federal Confidentiality of Alcohol and Drug Abuse Patient Records regulations: The Federal rules restrict any use of the information to criminally investigate or prosecute any alcohol or drug abuse patient.[facility] CenterIn the event this information is protected by the Federal Confidentiality of Alcohol and Drug Abuse Patient Records regulations: The Federal rules restrict any use of the information to criminally investigate or prosecute any alcohol or drug abuse patient.[facility] CenterIn the event this information is protected by the Federal Confidentiality of Alcohol and Drug Abuse Patient Records regulations: The Federal rules restrict any use of the information to criminally investigate or prosecute any alcohol or drug abuse patient.[facility] CenterIn the event this information is protected by the Federal Confidentiality of Alcohol and Drug Abuse Patient Records regulations: The Federal rules restrict any use of the information to criminally investigate or prosecute any alcohol or drug abuse patient.[facility] CenterIn the event this information is protected by the Federal Confidentiality of Alcohol and Drug Abuse Patient Records regulations: The Federal rules restrict any use of the information to criminally investigate or prosecute any alcohol or drug abuse patient.[facility] CenterIn the event this information is protected by the Federal Confidentiality of Alcohol and Drug Abuse Patient Records regulations: The Federal rules restrict any use of the information to criminally investigate or prosecute any alcohol or drug abuse patient.[facility] CenterIn the event this information is protected by the Federal Confidentiality of Alcohol and Drug Abuse Patient Records regulations: The Federal rules restrict any use of the information to criminally investigate or prosecute any alcohol or drug abuse patient.[facility] CenterIn the event this information is protected by the Federal Confidentiality of Alcohol and Drug Abuse Patient Records regulations: The Federal rules restrict any use of the information to criminally investigate or prosecute any alcohol or drug abuse patient.[facility] CenterIn the event this information is protected by the Federal Confidentiality of Alcohol and Drug Abuse Patient Records regulations: The Federal rules restrict any use of the information to criminally investigate or prosecute any alcohol or drug abuse patient.[facility] CenterIn the event this information is protected by the Federal Confidentiality of Alcohol and Drug Abuse Patient Records regulations: The Federal rules restrict any use of the information to criminally investigate or prosecute any alcohol or drug abuse patient.[facility] CenterIn the event this information is protected by the Federal Confidentiality of Alcohol and Drug Abuse Patient Records regulations: The Federal rules restrict any use of the information to criminally investigate or prosecute any alcohol or drug abuse patient.[facility] CenterIn the event this information is protected by the Federal Confidentiality of Alcohol and Drug Abuse Patient Records regulations: The Federal rules restrict any use of the information to criminally investigate or prosecute any alcohol or drug abuse patient.[facility] CenterIn the event this information is protected by the Federal Confidentiality of Alcohol and Drug Abuse Patient Records regulations: The Federal rules restrict any use of the information to criminally investigate or prosecute any alcohol or drug abuse patient.[facility] CenterIn the event this information is protected by the Federal Confidentiality of Alcohol and Drug Abuse Patient Records regulations: The Federal rules restrict any use of the information to criminally investigate or prosecute any alcohol or drug abuse patient.[facility] CenterIn the event this information is protected by the Federal Confidentiality of Alcohol and Drug Abuse Patient Records regulations: The Federal rules restrict any use of the information to criminally investigate or prosecute any alcohol or drug abuse patient.[facility] CenterIn the event this information is protected by the Federal Confidentiality of Alcohol and Drug Abuse Patient Records regulations: The Federal rules restrict any use of the information to criminally investigate or prosecute any alcohol or drug abuse patient.[facility] CenterIn the event this information is protected by the Federal Confidentiality of Alcohol and Drug Abuse Patient Records regulations: The Federal rules restrict any use of the information to criminally investigate or prosecute any alcohol or drug abuse patient.[facility] CenterIn the event this information is protected by the Federal Confidentiality of Alcohol and Drug Abuse Patient Records regulations: The Federal rules restrict any use of the information to criminally investigate or prosecute any alcohol or drug abuse patient.[facility] CenterIn the event this information is protected by the Federal Confidentiality of Alcohol and Drug Abuse Patient Records regulations: The Federal rules restrict any use of the information to criminally investigate or prosecute any alcohol or drug abuse patient.[facility] CenterIn the event this information is protected by the Federal Confidentiality of Alcohol and Drug Abuse Patient Records regulations: The Federal rules restrict any use of the information to criminally investigate or prosecute any alcohol or drug abuse patient.[facility] CenterIn the event this information is protected by the Federal Confidentiality of Alcohol and Drug Abuse Patient Records regulations: The Federal rules restrict any use of the information to criminally investigate or prosecute any alcohol or drug abuse patient.[facility] CenterIn the event this information is protected by the Federal Confidentiality of Alcohol and Drug Abuse Patient Records regulations: The Federal rules restrict any use of the information to criminally investigate or prosecute any alcohol or drug abuse patient.[facility] CenterIn the event this information is protected by the Federal Confidentiality of Alcohol and Drug Abuse Patient Records regulations: The Federal rules restrict any use of the information to criminally investigate or prosecute any alcohol or drug abuse patient.[facility] CenterIn the event this information is protected by the Federal Confidentiality of Alcohol and Drug Abuse Patient Records regulations: The Federal rules restrict any use of the information to criminally investigate or prosecute any alcohol or drug abuse patient.[facility] CenterIn the event this information is protected by the Federal Confidentiality of Alcohol and Drug Abuse Patient Records regulations: The Federal rules restrict any use of the information to criminally investigate or prosecute any alcohol or drug abuse patient.[facility] CenterIn the event this information is protected by [...] or prosecute any alcohol or drug abuse patient.[facility] CenterIn the event this information is protected by the Federal Confidentiality of Alcohol and Drug Abuse Patient Records regulations: The Federal rules restrict any use of the information to criminally investigate or prosecute any alcohol or drug abuse patient.[facility] CenterIn the event this information is protected by the Federal Confidentiality of Alcohol and Drug Abuse Patient Records regulations: The Federal rules restrict any use of the information to criminally investigate or prosecute any alcohol or drug abuse patient.[facility] CenterIn the event this information is protected by the Federal Confidentiality of Alcohol and Drug Abuse Patient Records regulations: The Federal rules restrict any use of the information to criminally investigate or prosecute any alcohol or drug abuse patient.[facility] CenterIn the event this information is protected by the Federal Confidentiality of Alcohol and Drug Abuse Patient Records regulations: The Federal rules restrict any use of the information to criminally investigate or prosecute any alcohol or drug abuse patient.[facility] CenterIn the event this information is protected by the Federal Confidentiality of Alcohol and Drug Abuse Patient Records regulations: The Federal rules restrict any use of the information to criminally investigate or prosecute any alcohol or drug abuse patient.[facility] CenterIn the event this information is protected by the Federal Confidentiality of Alcohol and Drug Abuse Patient Records regulations: The Federal rules restrict any use of the information to criminally investigate or prosecute any alcohol or drug abuse patient.[facility] CenterIn the event this information is protected by the Federal Confidentiality of Alcohol and Drug Abuse Patient Records regulations: The Federal rules restrict any use of the information to criminally investigate or prosecute any alcohol or drug abuse patient.[facility] CenterIn the event this information is protected by the Federal Confidentiality of Alcohol and Drug Abuse Patient Records regulations: The Federal rules restrict any use of the information to criminally investigate or prosecute any alcohol or drug abuse patient.[facility] CenterIn the event this information is protected by the Federal Confidentiality of Alcohol and Drug Abuse Patient Records regulations: The Federal rules restrict any use of the information to criminally investigate or prosecute any alcohol or drug abuse patient.[facility] CenterIn the event this information is protected by the Federal Confidentiality of Alcohol and Drug Abuse Patient Records regulations: The Federal rules restrict any use of the information to criminally investigate or prosecute any alcohol or drug abuse patient.[facility] CenterIn the event this information is protected by the Federal Confidentiality of Alcohol and Drug Abuse Patient Records regulations: The Federal rules restrict any use of the information to criminally investigate or prosecute any alcohol or drug abuse patient.[facility] CenterIn the event this information is protected by the Federal Confidentiality of Alcohol and Drug Abuse Patient Records regulations: The Federal rules restrict any use of the information to criminally investigate or prosecute any alcohol or drug abuse patient.[facility] CenterIn the event this information is protected by the Federal Confidentiality of Alcohol and Drug Abuse Patient Records regulations: The Federal rules restrict any use of the information to criminally investigate or prosecute any alcohol or drug abuse patient.[facility] CenterIn the event this information is protected by the Federal Confidentiality of Alcohol and Drug Abuse Patient Records regulations: The Federal rules restrict any use of the information to criminally investigate or prosecute any alcohol or drug abuse patient.[facility] CenterIn the event this information is protected by the Federal Confidentiality of Alcohol and Drug Abuse Patient Records regulations: The Federal rules restrict any use of the information to criminally investigate or prosecute any alcohol or drug abuse patient.[facility] CenterIn the event this information is protected by the Federal Confidentiality of Alcohol and Drug Abuse Patient Records regulations: The Federal rules restrict any use of the information to criminally investigate or prosecute any alcohol or drug abuse patient.[facility] CenterIn the event this information is protected by the Federal Confidentiality of Alcohol and Drug Abuse Patient Records regulations: The Federal rules restrict any use of the information to criminally investigate or prosecute any alcohol or drug abuse patient.[facility] CenterIn the event this information is protected by the Federal Confidentiality of Alcohol and Drug Abuse Patient Records regulations: The Federal rules restrict any use of the information to criminally investigate or prosecute any alcohol or drug abuse patient.[facility] CenterIn the event this information is protected by the Federal Confidentiality of Alcohol and Drug Abuse Patient Records regulations: The Federal rules restrict any use of the information to criminally investigate or prosecute any alcohol or drug abuse patient.[facility] CenterIn the event this information is protected by the Federal Confidentiality of Alcohol and Drug Abuse Patient Records regulations: The Federal rules restrict any use of the information to criminally investigate or prosecute any alcohol or drug abuse patient.[facility] CenterIn the event this information is protected by the Federal Confidentiality of Alcohol and Drug Abuse Patient Records regulations: The Federal rules restrict any use of the information to criminally investigate or prosecute any alcohol or drug abuse patient.[facility] CenterIn the event this information is protected by the Federal Confidentiality of Alcohol and Drug Abuse Patient Records regulations: The Federal rules restrict any use of the information to criminally investigate or prosecute any alcohol or drug abuse patient.[facility] CenterIn the event this information is protected by the Federal Confidentiality of Alcohol and Drug Abuse Patient Records regulations: The Federal rules restrict any use of the information to criminally investigate or prosecute any alcohol or drug abuse patient.[facility] CenterIn the event this information is protected by the Federal Confidentiality of Alcohol and Drug Abuse Patient Records regulations: The Federal rules restrict any use of the information to criminally investigate or prosecute any alcohol or drug abuse patient.[facility] CenterIn the event this information is protected by the Federal Confidentiality of Alcohol and Drug Abuse Patient Records regulations: The Federal rules restrict any use of the information to criminally investigate or prosecute any alcohol or drug abuse patient.[facility] CenterIn the event this information is protected by the Federal Confidentiality of Alcohol and Drug Abuse Patient Records regulations: The Federal rules restrict any use of the information to criminally investigate or prosecute any alcohol or drug abuse patient.[facility] CenterIn the event this information is protected by the Federal Confidentiality of Alcohol and Drug Abuse Patient Records regulations: The Federal rules restrict any use of the information to criminally investigate or prosecute any alcohol or drug abuse patient.[facility] CenterIn the event this information is protected by the Federal Confidentiality of Alcohol and Drug Abuse Patient Records regulations: The Federal rules restrict any use of the information to criminally investigate or prosecute any alcohol or drug abuse patient.[facility] CenterIn the event this information is protected by the Federal Confidentiality of Alcohol and Drug Abuse Patient Records regulations: The Federal rules restrict any use of the information to criminally investigate or prosecute any alcohol or drug abuse patient.[facility] CenterIn the event this information is protected by the Federal Confidentiality of Alcohol and Drug Abuse Patient Records regulations: The Federal rules restrict any use of the information to criminally investigate or prosecute any alcohol or drug abuse patient.[facility] CenterIn the event this information is protected by the Federal Confidentiality of Alcohol and Drug Abuse Patient Records regulations: The Federal rules restrict any use of the information to criminally investigate or prosecute any alcohol or drug abuse patient.[facility] CenterIn the event this information is protected by the Federal Confidentiality of Alcohol and Drug Abuse Patient Records regulations: The Federal rules restrict any use of the information to criminally investigate or prosecute any alcohol or drug abuse patient.[facility] CenterIn the event this information is protected by the Federal Confidentiality of Alcohol and Drug Abuse Patient Records regulations: The Federal rules restrict any use of the information to criminally investigate or prosecute any alcohol or drug abuse patient.[facility] CenterIn the event this information is protected by the Federal Confidentiality of Alcohol and Drug Abuse Patient Records regulations: The Federal rules restrict any use of the information to criminally investigate or prosecute any alcohol or drug abuse patient.[facility] CenterIn the event this information is protected by the Federal Confidentiality of Alcohol and Drug Abuse Patient Records regulations: The Federal rules restrict any use of the information to criminally investigate or prosecute any alcohol or drug abuse patient.[facility] CenterIn the event this information is protected by the Federal Confidentiality of Alcohol and Drug Abuse Patient Records regulations: The Federal rules restrict any use of the information to criminally investigate or prosecute any alcohol or drug abuse patient.[facility] CenterIn the event this information is protected by the Federal Confidentiality of Alcohol and Drug Abuse Patient Records regulations: The Federal rules restrict any use of the information to criminally investigate or prosecute any alcohol or drug abuse patient.[facility] CenterIn the event this information is protected by the Federal Confidentiality of Alcohol and Drug Abuse Patient Records regulations: The Federal rules restrict any use of the information to criminally investigate or prosecute any alcohol or drug abuse patient.[facility] CenterIn the event this information is protected by the Federal Confidentiality of Alcohol and Drug Abuse Patient Records regulations: The Federal rules restrict any use of the information to criminally investigate or prosecute any alcohol or drug abuse patient.[facility] CenterIn the event this information is protected by the Federal Confidentiality of Alcohol and Drug Abuse Patient Records regulations: The Federal rules restrict any use of the information to criminally investigate or prosecute any alcohol or drug abuse patient.[facility] CenterIn the event this information is protected by the Federal Confidentiality of Alcohol and Drug Abuse Patient Records regulations: The Federal rules restrict any use of the information to criminally investigate or prosecute any alcohol or drug abuse patient.[facility] CenterIn the event this information is protected by the Federal Confidentiality of Alcohol and Drug Abuse Patient Records regulations: The Federal rules restrict any use of the information to criminally investigate or prosecute any alcohol or drug abuse patient.[facility] CenterIn the event this information is protected by the Federal Confidentiality of Alcohol and Drug Abuse Patient Records regulations: The Federal rules restrict any use of the information to criminally investigate or prosecute any alcohol or drug abuse patient.[facility] CenterIn the event this information is protected by the Federal Confidentiality of Alcohol and Drug Abuse Patient Records regulations: The Federal rules restrict any use of the information to criminally investigate or prosecute any alcohol or drug abuse patient.[facility] CenterIn the event this information is protected by the Federal Confidentiality of Alcohol and Drug Abuse Patient Records regulations: The Federal rules restrict any use of the information to criminally investigate or prosecute any alcohol or drug abuse patient.[facility] CenterIn the event this information is protected by the Federal Confidentiality of Alcohol and Drug Abuse Patient Records regulations: The Federal rules restrict any use of the information to criminally investigate or prosecute any alcohol or drug abuse patient.[facility] CenterIn the event this information is protected by the Federal Confidentiality of Alcohol and Drug Abuse Patient Records regulations: The Federal rules restrict any use of the information to criminally investigate or prosecute any alcohol or drug abuse patient.[facility] CenterIn the event this information is protected by the Federal Confidentiality of Alcohol and Drug Abuse Patient Records regulations: The Federal rules restrict any use of the information to criminally investigate or prosecute any alcohol or drug abuse patient.[facility] CenterIn the event this information is protected by [...] or prosecute any alcohol or drug abuse patient.[facility] CenterIn the event this information is protected by the Federal Confidentiality of Alcohol and Drug Abuse Patient Records regulations: The Federal rules restrict any use of the information to criminally investigate or prosecute any alcohol or drug abuse patient.[facility] CenterIn the event this information is protected by the Federal Confidentiality of Alcohol and Drug Abuse Patient Records regulations: The Federal rules restrict any use of the information to criminally investigate or prosecute any alcohol or drug abuse patient.[facility] CenterIn the event this information is protected by the Federal Confidentiality of Alcohol and Drug Abuse Patient Records regulations: The Federal rules restrict any use of the information to criminally investigate or prosecute any alcohol or drug abuse patient.[facility] CenterIn the event this information is protected by the Federal Confidentiality of Alcohol and Drug Abuse Patient Records regulations: The Federal rules restrict any use of the information to criminally investigate or prosecute any alcohol or drug abuse patient.[facility] CenterIn the event this information is protected by the Federal Confidentiality of Alcohol and Drug Abuse Patient Records regulations: The Federal rules restrict any use of the information to criminally investigate or prosecute any alcohol or drug abuse patient.[facility] CenterIn the event this information is protected by the Federal Confidentiality of Alcohol and Drug Abuse Patient Records regulations: The Federal rules restrict any use of the information to criminally investigate or prosecute any alcohol or drug abuse patient.[facility] CenterIn the event this information is protected by the Federal Confidentiality of Alcohol and Drug Abuse Patient Records regulations: The Federal rules restrict any use of the information to criminally investigate or prosecute any alcohol or drug abuse patient.[facility] CenterIn the event this information is protected by the Federal Confidentiality of Alcohol and Drug Abuse Patient Records regulations: The Federal rules restrict any use of the information to criminally investigate or prosecute any alcohol or drug abuse patient.[facility] CenterIn the event this information is protected by the Federal Confidentiality of Alcohol and Drug Abuse Patient Records regulations: The Federal rules restrict any use of the information to criminally investigate or prosecute any alcohol or drug abuse patient.[facility] CenterIn the event this information is protected by the Federal Confidentiality of Alcohol and Drug Abuse Patient Records regulations: The Federal rules restrict any use of the information to criminally investigate or prosecute any alcohol or drug abuse patient.[facility] CenterIn the event this information is protected by the Federal Confidentiality of Alcohol and Drug Abuse Patient Records regulations: The Federal rules restrict any use of the information to criminally investigate or prosecute any alcohol or drug abuse patient.[facility] CenterIn the event this information is protected by the Federal Confidentiality of Alcohol and Drug Abuse Patient Records regulations: The Federal rules restrict any use of the information to criminally investigate or prosecute any alcohol or drug abuse patient.[facility] CenterIn the event this information is protected by the Federal Confidentiality of Alcohol and Drug Abuse Patient Records regulations: The Federal rules restrict any use of the information to criminally investigate or prosecute any alcohol or drug abuse patient.[facility] CenterIn the event this information is protected by the Federal Confidentiality of Alcohol and Drug Abuse Patient Records regulations: The Federal rules restrict any use of the information to criminally investigate or prosecute any alcohol or drug abuse patient.[facility] CenterIn the event this information is protected by the Federal Confidentiality of Alcohol and Drug Abuse Patient Records regulations: The Federal rules restrict any use of the information to criminally investigate or prosecute any alcohol or drug abuse patient.[facility] CenterIn the event this information is protected by the Federal Confidentiality of Alcohol and Drug Abuse Patient Records regulations: The Federal rules restrict any use of the information to criminally investigate or prosecute any alcohol or drug abuse patient.[facility] CenterIn the event this information is protected by the Federal Confidentiality of Alcohol and Drug Abuse Patient Records regulations: The Federal rules restrict any use of the information to criminally investigate or prosecute any alcohol or drug abuse patient.[facility] CenterIn the event this information is protected by the Federal Confidentiality of Alcohol and Drug Abuse Patient Records regulations: The Federal rules restrict any use of the information to criminally investigate or prosecute any alcohol or drug abuse patient.[facility] CenterIn the event this information is protected by the Federal Confidentiality of Alcohol and Drug Abuse Patient Records regulations: The Federal rules restrict any use of the information to criminally investigate or prosecute any alcohol or drug abuse patient.[facility] CenterIn the event this information is protected by the Federal Confidentiality of Alcohol and Drug Abuse Patient Records regulations: The Federal rules restrict any use of the information to criminally investigate or prosecute any alcohol or drug abuse patient.[facility] CenterIn the event this information is protected by the Federal Confidentiality of Alcohol and Drug Abuse Patient Records regulations: The Federal rules restrict any use of the information to criminally investigate or prosecute any alcohol or drug abuse patient.[facility] CenterIn the event this information is protected by the Federal Confidentiality of Alcohol and Drug Abuse Patient Records regulations: The Federal rules restrict any use of the information to criminally investigate or prosecute any alcohol or drug abuse patient.[facility] CenterIn the event this information is protected by the Federal Confidentiality of Alcohol and Drug Abuse Patient Records regulations: The Federal rules restrict any use of the information to criminally investigate or prosecute any alcohol or drug abuse patient.[facility] CenterIn the event this information is protected by the Federal Confidentiality of Alcohol and Drug Abuse Patient Records regulations: The Federal rules restrict any use of the information to criminally investigate or prosecute any alcohol or drug abuse patient.[facility] CenterIn the event this information is protected by the Federal Confidentiality of Alcohol and Drug Abuse Patient Records regulations: The Federal rules restrict any use of the information to criminally investigate or prosecute any alcohol or drug abuse patient.[facility] CenterIn the event this information is protected by the Federal Confidentiality of Alcohol and Drug Abuse Patient Records regulations: The Federal rules restrict any use of the information to criminally investigate or prosecute any alcohol or drug abuse patient.[facility] CenterIn the event this information is protected by the Federal Confidentiality of Alcohol and Drug Abuse Patient Records regulations: The Federal rules restrict any use of the information to criminally investigate or prosecute any alcohol or drug abuse patient.[facility] CenterIn the event this information is protected by the Federal Confidentiality of Alcohol and Drug Abuse Patient Records regulations: The Federal rules restrict any use of the information to criminally investigate or prosecute any alcohol or drug abuse patient.[facility] CenterIn the event this information is protected by the Federal Confidentiality of Alcohol and Drug Abuse Patient Records regulations: The Federal rules restrict any use of the information to criminally investigate or prosecute any alcohol or drug abuse patient.[facility] CenterIn the event this information is protected by the Federal Confidentiality of Alcohol and Drug Abuse Patient Records regulations: The Federal rules restrict any use of the information to criminally investigate or prosecute any alcohol or drug abuse patient.[facility] CenterIn the event this information is protected by the Federal Confidentiality of Alcohol and Drug Abuse Patient Records regulations: The Federal rules restrict any use of the information to criminally investigate or prosecute any alcohol or drug abuse patient.[facility] [facility] Center[facility] the event this information is protected by the Federal Confidentiality of Alcohol and Drug Abuse Patient Records regulations: The Federal rules restrict any use of the information to criminally investigate or prosecute any alcohol or drug abuse patient.[facility] Center[facility] the event this information is protected by the Federal Confidentiality of Alcohol and Drug Abuse Patient Records regulations: The Federal rules restrict any use of the information to criminally investigate or prosecute any alcohol or drug abuse patient.[facility] CenterIn the event this information is protected by the Federal Confidentiality of Alcohol and Drug Abuse Patient Records regulations: The Federal rules restrict any use of the information to criminally investigate or prosecute any alcohol or drug abuse patient.[facility] CenterIn the event this information is protected by the Federal Confidentiality of Alcohol and Drug Abuse Patient Records regulations: The Federal rules restrict any use of the information to criminally investigate or prosecute any alcohol or drug abuse patient.[facility] Reason for Visit (unrecogniz ed section and [...] W/O W/CONTRAST MATERIAL Mini Whyte MD [address] [place] [address] [facility] [place] [id number] Referral ID Status Reason Start Date Expiration Date V isits Requested Visits Authorized [id number] Closed Auto-Generate d Referral 01/23/2024 02/21/2025 1 1 Reason Comments Established Patient Reason Comments Future Appointment New Patient [place] Any Reason Comments Orders Premedication for co ntrast allergy Reason Comments Pathology slides and records requested Reason Comments Path slides not available Reason Comments MARYJANE 2-3 weeks Reason Comments MRA 04/02/24- facility aware Reason Comments Facility change to [facility] 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 Confirm appt for [...] STEM W/O W/CONTRAST MATERIAL Mini Whyte MD [address] [place] [address] Phone: tel: fax: [facility] [place] [id number] Referral ID Status Reason Start Date Expiration Date V isits Requested Visits Authorized [id number] Closed Auto-Generate d Referral 03/04/2024 04/03/2025 1 [...] Quadriplegia (HCC) Procedures CONSULT TO NEUROLOGY OFFICE/OUTPATIENT [facility] 60 MINUTES Mini Whyte MD [address] [address] Phone: tel: fax: [facility] [address] [place] [address] Phone: tel: Referral ID Status Reason Start Date Expiration Date V isits Requested Visits Authorized [id number] Closed PCP Requested Referral 03/04/2024 03/04/2025 1 1 Reason Comments MARYJANE 4 weeks Reason Comments Established Patient Reason Comments MARYJANE 07/2024 Reason Comments Established Patient Reason Comments [facility] Welcome Letter Mailed Reason Comments Spasticity Specialty Diagnoses / Procedures Referred By Contac t Referred To Contact [facility] Diagnoses Spasticity Procedures OFFICE/OUTPATIENT [facility] 60 MINUTES Mini Whyte MD [address] [place] [id number] Phone: tel: fax: [facility] [address] [place] [address] Referral ID Status Reason Start Date Expiration Date V isits Requested Visits Authorized [id number] Closed PCP Requested Referral Auto-Generated Referral 07/31/2024 07/31/2025 1 1 Reason Comments MARYJANE 2-4 weeks Reason Comments MARYJANE 3 months Care Teams (unrecognized sec tion and content) 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 Start Date End Date Leela Escoto DO [address], [place] [id number] PCP - General Family Practice 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 Start Date End Date Leela Escoto DO [address] [place] [address] PCP - General Family Practice 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 Start Date End Date Sheets, Leela Mcclain, DO [address] [place] [address] PCP - General Family Practice 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 Start Date End Date Sheets, Leela Mcclain, DO [address] [place] [address] PCP - General Family Practice 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 Start Date End Date Sheets, Leela Mcclain, DO [address] [place] [address] PCP - General Family Practice 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 Start Date End Date Sheets, Leela Mcclain, DO [address] [place] [address] PCP - General Family Medicine 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 Start Date End Date Sheets, Leela Mcclain, DO [address] [place] [address] PCP - General Family Medicine 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 Start Date End Date Sheets, Leela Mcclain, DO [address] [place] [address] PCP - General Family Medicine 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 Start Date End Date Sheets, Leela Mcclain, DO [address] [place] [address] PCP - General Family Medicine 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 Start Date End Date Sheets, Leela Mcclain, DO [address] [place] [address] PCP - General Family Medicine 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 Start Date End Date Sheets, Leela Mcclain, DO [address] [place] [address] PCP - General Family Medicine 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 Start Date End Date Leela Escoto DO [address] [place] [address] PCP - General Family Medicine 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 Start Date End Date SheetsLeela DO [address] [place] [address] PCP - General Family Medicine 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 Start Date End Date Leela Escoto DO [address] [place] [address] PCP - General Family Medicine 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 Start Date End Date Leela Escoto DO [address] [place] [address] PCP - General Family Medicine 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 Start Date End Date Leela Escoto DO [address] [place] [address] PCP - General Family Medicine 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 Start Date End Date Leela Escoto DO [address] [place] [address] PCP - General Family Medicine 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 Start Date End Date Leela Escoto DO [address] [place] [address] PCP - General Family Medicine 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 Start Date End Date Leela Escoto DO [address] [place] [address] PCP - General Family Medicine 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 Start Date End Date SheetsLeela DO [address] [place] [address] PCP - General Family Medicine 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 Start Date End Date SheetsLeela DO [address] [place] [address] PCP - General Family Medicine 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 Start Date End Date SheetsLeela DO [address] [place] [address] PCP - General Family Medicine 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 Start Date End Date SheetsLeela DO [address] [place] [address] PCP - General Family Medicine 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 Start Date End Date SheetsLeela DO [address] [place] [address] PCP - General Family Medicine 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 Start Date End Date SheetsLeela DO [address] [place] [address] PCP - General Family Medicine 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 Start Date End Date SheetsLeela DO [address] [place] [address] PCP - General Family Medicine 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 Start Date End Date SheetsLeela DO [address] [place] [address] PCP - General Family Medicine 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 Start Date End Date Leela Escoto DO [address] [place] [address] PCP - General Family Medicine 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 Start Date End Date Leela Escoto DO [address] [place] [address] PCP - General Family Medicine 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 Start Date End Date Leela Escoto DO [address] [place] [address] PCP - General Family Medicine 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 Start Date End Date Leela Escoto DO [address] [place] [address] PCP - General Family Medicine 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 Start Date End Date Leela Escoto DO [address] [place] [address] PCP - General Family Medicine 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 Start Date End Date Leela Escoto DO [address] [place] [address] PCP - General Family Medicine 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 Start Date End Date Leela Escoto DO [address] [place] [address] PCP - General Family Medicine 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 Start Date End Date Leela Escoto DO [address] [place] [address] PCP - General Family Medicine 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 Start Date End Date Jevon Leela Mcclain DO [address] [place] [address] PCP - General Family Medicine 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 Start Date End Date Sheets Leela Mcclain DO [address] [place] [address] PCP - General Family Medicine 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 Start Date End Date Sheets Leela Mcclain DO [address] [place] [address] PCP - General Family Medicine 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 Start Date End Date Jevon Leela Mcclain DO [address] [place] [address] PCP - General Family Medicine 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 Start Date End Date Jevon Leela Mcclain DO [address] [place] [address] PCP - General Family Medicine 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 Start Date End Date Jevon Leela Mcclain DO [address] [place] [address] PCP - General Family Medicine 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 Josi Gacria MD Primary Care Provider Active Start: August [...] August 13, 2024 End: August 13, 2024 Team Status: Active Member Role/Relationship Status Dates Dr. Josi Garcia MD Primary care physician Active Team Status: Inactive Member Role/Relationship Status Dates Dr. Josi Garcia MD Primary care physician Active Start: November 18, 2024 End: November 18, 2024 Dr. Everett CURRIE MD Attending physician Active Start: November 18, 2024 End: November 18, 2024 Team Status: Active Member Role/Relationship Status Dates Dr. Josi Garcia MD Primary care physician Active Start: November 19, 2024 Dr. Everett CURRIE MD Attending physician Active Start: November 19, 2024 Team Status: Active Member Role/Relationship Status Dates Dr. Josi Garcia MD Primary care physician Active Start: December 02, 2024 Dr. Everett CURRIE MD Attending physician Active Start: December 02, 2024 Goals (unrecognized section and content) Goals [...] BE BASED ON THE PRIMARY CLINICAL RECORDS. [facility]. provides no warranty or guarantee of the accuracy or completeness of information in this document.
[2025-01-27 09:16] LABS: Ferritin 99 ng/mL (22-378); Iron 26 ug/dL (50-170); Vitamin B12 1760 pg/mL (180-914)
== END ==
LOC: OLS.SW 05:00
PROVIDERS: PCP Internal Medicine; Visit Provider Family Medicine
DX: I10 Essential (primary) hypertension (principal)
CPT/HCPCS: 36415; 82607; 82728; 83540

== ENCOUNTER → 2025-02-12 | Outpatient (REF) | payer MEDICARE, MEDICAID, SELFPAY ==
[2025-02-12 10:25] LABS: Hematocrit 34.3 % (37-47); Hemoglobin 10.6 g/dL (12.0-15.0); Immature Granulocytes Count 0.070 X10^3/uL (0.0-0.0); Mean Corp Hgb Conc 30.9 g/dL (32-36); Mean Corpuscular Volume 93.0 fL (81-99); Mean Platelet Vol. 10.2 fl (6.2-12.0); NRBC Flagged by Analyzer 0 % (0-5); Platelet Count 397 K/mm3 (150-450); RBC Distribution Width CV 13.9 % (11.6-14.6); RBC Distribution Width SD 46.6 fl (35.1-43.9); Red Blood Count 3.69 M/mm3 (4.2-5.4); White Blood Count 12.4 K/mm3 (4.4-11.0)
[2025-02-12 10:48] LABS: AST(SGOT) 16 U/L (<=31); Alanine Aminotransfer ALT/SGPT 10 U/L (<=34); Albumin, Serum 3.0 g/dL (3.4-4.8); Alkaline Phosphatase 99 U/L (35-104); Anion Gap 9 (5-15); BUN 10 mg/dL (4-19); BUN/Creat Ratio 18.0 RATIO (10-20); Calcium,Total 9.5 mg/dL (7.6-11.0); Carbon Dioxide 27.2 mmol/L (21.0-32.0); Chloride 104 mmol/L (98-108); Globulin 3.4 g/dL (2.2-4.2); Glucose 103 mg/dL (70-99); Potassium 3.9 mmol/L (3.3-5.1)
== END ==
LOC: OLS.SW 08:20
PROVIDERS: PCP Internal Medicine; Visit Provider Family Medicine
DX: N39.0 Urinary tract infection, site not specified (principal)
CPT/HCPCS: 36415; 80053; 85025

== ENCOUNTER → 2025-02-24 | Outpatient (REF) | payer MEDICARE, MEDICAID, SELFPAY ==
--- OUTSIDE RECORDS SUMMARY | 2025-02-24 04:10 | XMS RPT_ITS | CCD ---
Author Organization [facility] Care Team Providers Care Account Executive Name Role Phone Sheets DO, Leela Mcclain Primary Care Provider [phone] SHEETS, LEELA Mcclain Primary Care Unavailable FERNANDO [...] DO, Leela Mcclain Primary Care Provider [phone] Dr. Josi Garcia MD Attending Provider Mery Garcia MD, Dr. Prater Referring Provider Mery Garcia MD, Dr. Prater Primary Care Provider MINI Ewing Attending Provider MINI DUFFY Referring Provider Jose WINTERS, Dr. Prater Attending Provider Mery Cantor MD, Dr. Floyd Attending Provider Silver Cantor MD, Dr. Floyd Referring Provider Silver Garcia MD, Dr. Prater Primary Care Physician Deven Cantor MD, Dr. Floyd Attending Physician Everett Degroot Attending Unavailable Gudla, Josi Primary Care Unavailable Gudla, Josi Primary Care Unavailable Everett Garcia Attending Unavailable Everett Garcia Referring Unavailable Gudla, Josi Primary Care Unavailable Everett Garcia Attending Unavailable KYLE RAJAN Attending Unavailable KYLE RAJAN Referring Unavailable Gudla Josi CURRIE Attending Unavailable Gudla OLS, Josi Attending Unavailable Gudla, Josi Primary Care Unavailable KYLE RAJAN Attending Unavailable KYLE RAJAN Referring Unavailable Gudla, Josi Primary Care Unavailable Everett Garcia Attending Unavailable Gudla, Josi Primary Care Unavailable Everett Garcia Attending Unavailable Gudla, Josi Primary Care Unavailable Everett Garcia Attending Unavailable Gudla KUSH, Josi Attending Unavailable Gudla OLS, Josi Referring Unavailable Gudla OLSJosi Attending Unavailable Gudla, Josi Primary Care Unavailable Gudla, Josi Primary Care Unavailable Everett Garcia Attending Unavailable Everett Garcia Attending Unavailable Gudla, Josi Primary Care Unavailable SPEARS-DUFFYMINI Referring Unavaila ble SPEARS-DUFFYMINI Attending Unavaila ble SPEARS-DUFFYMINI Referring Unavaila ble SPEARS-DUFFYMINI Referring Unavaila ble SPEARS-DUFFYMINI Attending Unavaila ble SPEARS-DUFFYMINI Referring Unavaila ble LILLIE HORTON Attending Unavailable SPEARS-DUFFYMINI Referring Unavaila ble BINDU BURT Attending Unavailable SPEARS-DUFFYMNII Referring Unavaila ble LEELA ESCOTO Primary Care Unavailable SPEARS-DUFFYMINI Referring Unavaila ble LEELA ESCOTO Primary Care Unavailable SPEARS-DUFFYMNII Attending Unavaila ble SPEARS-DUFFYMINI ARELLANO Referring Unavaila ble LEELA ESCOTO Primary Care Unavailable SPEARS-DUFFYMINI Attending Unavaila ble SPEARS-DUFFYMINI Referring Unavaila ble SPEARS-DUFFYMINI Referring Unavaila ble SPEARS-DUFFYMINI Attending Unavaila ble SELF Referring Unavailable DIOR ANGUIANO Attending Unavailable SPEARS-DUFFY, MINI Referring Unavaila ble Allergies Allergy Classification Reported Allergen(s) Allergy Type Date of Onset Reaction(s) Facility (20 sources) Latex; Translations: [LATEX] Drug Allergy 11-05-2015 Other: See Comments [facility] (20 sources) Methadone; Translations: [METHADONE] Drug Allergy 11-05-2015 Unknown [facility] (20 sources) Naproxen; Translations: [NAPROXEN] Drug Allergy 11-05-2015 Hives, Itching [facility] (20 sources) Iodinated Contrast Media; Translations: [IODINATED CONTRAST MEDIA] Drug Allergy 11-05-2015 Other: See Comments [facility] Medications Current Medications Medication Drug Class(es) [...] capsule by [facility] once daily. riboflavin 400 mg oral [...] Active Start: 01-01-2024 take 1 tablet by [facility] once daily sertraline (ZOLOFT) 25 mg [...] vaginally tw ice a week. estrogens, conjugated (custodial) 0.625 mg/ml vaginal cream (20 sources) Estrogen [...] (20 sources) beta3-Adrenergic Agonist Start: 3 End: 5 take 1 tablet by mouth once daily [...] Comment on above: Take 1 tablet by [facility] once daily. Multivitamin capsule (20 sources) [...] oral capsule (3 sources) Nitrofuran Antibacterial Start: 022 End: 023 take 1 capsule by mouth twice daily nitrofurantoin monohydrate and macrocrystal (MACROBID) 100 mg capsule Take 1 capsule by mouth twice daily for 7 days. 14 capsule 0 03/20/2022 03/27/2022 Comment on above: [facility] for 7 days. ondansetron 4 mg disintegrating oral tablet (20 sources) Serotonin-3 Receptor Antagonist Start: 022 End: ondansetron orally disintegrating (ZOFRAN ODT) 4 mg disintegrating tablet Take 1 tablet by mouth as needed. 02/23/2022 11/06/2024 Discontinued (Discontinued by another Health Care Provider) Comment on above: Take 1 tablet by [facility] as needed. oxyCODONE hydrochloride 5 mg oral tablet (14 sources) Opioid Agonist Start: 023 End: take 1 tablet by mouth twice [...] 50 mg oral tablet (20 sources) Start: 024 End: predniSONE (DELTASONE) 50 mg Indications: Allergy [...] sources) Long-term current use of aspirin; Translations: [roasterman (current) use of aspirin] Episodic Other circulatory disease (1 source) History of cerebrovascular accident; Translations: [Personal history of transient ischemic attack (TIA), and cerebral infarction without residual deficits] 11-06-2024 Episodic Other connective tissue disease (2 sources) Muscle spasticity present; Translations: [Other muscle spasm] 06-18-2024 Episodic Other connective tissue disease (7 sources) Spasticity; Translations: [Cramp and spasm] 08-02-2024 Episodic Other diseases of bladder and urethra [...] Translations: [Meningitis, unspecified] Onset: 04-21-2024 Episodic Other connective tissue disease (1 source) Cramp and spasm; Translations: [Spasticity] Onset: 07-31-2024 Episodic Other gastrointestinal disorders (2 sources) Diarrhea, [...] awareness; Translations: [Cognitive decline] Onset: 11-05-2024 Episodic Pathological fracture (9 sources) Pathological fracture; [...] Test Name Value Interpretation Reference Range Facility [facility] 02-03-2025 [facility] Telephone ([facility]) DIOR CARVAJAL ([id number]) 1965 F Date Time Provider Department 02/03/25 MINI WHYTE [facility] During your visit today, we recorded the following information about you: Gerda Dee RN 02/03/2025 3:44 PM Signed Spoke with Daughter and provided her with scheduling phone number to arrange for MRI brain and follow up with Dr Spears. She will sign her up for My chart so she can do a VV since it is harder for her to come to and she can get her MRI at [place]. Gerda Dee, RN, BSN Weekday Babysitter [facility] Allergies As of Date: 02/03/2025 Noted Allergy Reaction ALEVE (NAPROXEN) 11/05/2015 4 - Hives 9 - Itching IODINATED CONTRAST MEDIA 11/05/2015 14 - Other: See Comments Comments: dyspnea LATEX 11/05/2015 14 - Other: See Comments Comments: blisters METHADONE 11/05/2015 16 - Unknown Date Reviewed: 11/06/2024 Reviewed by: Lillie Horton MD - Fully Assessed Prescriptions as of 02/03/2025 - methocarbamol (ROBAXIN) 750 mg tablet Take [...] once daily. 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 Grief [F43.21] 05/25/2022 Encounter Status:Closed by GERDA DEE on 02/03/25 Normal [facility] Urine Cultureon 02-02-2025 [facility] Proteus mirabilis [place] Count >100,000 Proteus mirabilis: REACTION Ampicillin Islt MIRTHA <=2 Ampicillin+Sulbac Islt MIRTHA <=2 S Cefepime Islt MIRTHA 0.5 S cefTRIAXone Islt MIRTHA <=0.25 S Ciprofloxacin Islt MIRTHA <=0.06 S Gentamicin Islt MIRTHA <=1 S levoFLOXacin Islt MIRTHA <=0.12 S Meropenem Islt MIRTHA <=0.25 S Nitrofurantoin Islt MIRTHA 128 R Pip+Tazo Islt MIRTHA <=4 S TMP SMX Islt MIRTHA <=20 S Normal [facility] Comment on above: Performed By: #### L 100.0100 #### [facility] [address] [place], [place], [id number] CBC-Complete Blood Cnt No Di ffon 01-31-2025 Erythrocyte distribution width (RBC) [Ratio] 14.0 % Normal 11.6-14.6 [facility] Comment on above: Performed By: #### L 100.0100 #### [facility] [address] [place], [address] Hematocrit (Bld) [Volume fraction] 33.7 % Low 37-47 [facility] Comment on above: Performed By: #### L 100.0100 #### [facility] [address] [place], [address] Hemoglobin (Bld) [Mass/Vol] 10.9 g/dL Low 12.0-15.0 [facility] Comment on above: Performed By: #### L 100.0100 #### [facility] [address] [place], [address] MCH (RBC) [Entitic mass] 29.5 pg Normal 27.0-32.0 [facility] Comment on above: Performed By: #### L 100.0100 #### [facility] [address] [place], [address] MCHC (RBC) [Mass/Vol] 32.3 g/dL Normal 32-36 [facility] Comment on above: Performed By: #### L 100.0100 #### [facility] [address] [place], [address] MCV (RBC) [Entitic vol] 91.1 fL Normal 81-99 [facility] Comment on above: Performed By: #### L 100.0100 #### [facility] [address] [place], [address] Platelet mean volume (Bld) [Entitic vol] 10.4 fL Normal 6.2-12.0 [facility] Comment on above: Performed By: #### L 100.0100 #### [facility] [address] [place], [address] Platelets (Bld) [#/Vol] 215 10*3/uL Normal 150-450 [facility] Comment on above: Performed By: #### L 100.0100 #### [facility] [address] [place], [address] RBC (Bld) [#/Vol] 3.70 10*6/uL Low 4.2-5.4 [facility] Comment on above: Performed By: #### L 100.0100 #### [facility] [address] [place], [address] RDW SD 46.7 fl High 35.1-43.9 [facility] Comment on above: Performed By: #### L 100.0100 #### [facility] [address] [place], [address] WBC (Bld) [#/Vol] 10.3 10*3/uL Normal 4.4-11.0 [facility] Comment on above: Performed By: #### L 100.0100 #### [facility] [address] [place], [address] Comprehensive Metabolic Prof [facility] 01-31-2025 Albumin [Mass/Vol] 2.8 g/dL Low 3.4-4.8 [facility] Comment on above: Performed By: #### L 100.0100 #### [facility] [address] [place], [address] Albumin/Globulin [Mass ratio] 0.8 {ratio} Low 0.9-2.4 [facility] Comment on above: Performed By: #### L 100.0100 #### [facility] [address] [place], [address] ALK PHOS 106 U/L High 35-104 [facility] Comment on above: Performed By: #### L 100.0100 #### [facility] [address] [place], [address] ALT [Catalytic activity/Vol] 24 U/L Normal <=34 [facility] Comment on above: Performed By: #### L 100.0100 #### [facility] [address] [place], [address] AST [Catalytic activity/Vol] 45 U/L High <=31 [facility] Comment on above: Result Comment: Hemo lysis present, Results??could be affected. ?? Performed By: #### L 100.0100 #### [facility] [address] [place], [address] Bilirubin [Mass/Vol] 0.26 mg/dL Normal 0.00-1.30 [facility] Comment on above: Performed By: #### L 100.0100 #### [facility] [address] [place], [address] BUN/CRE 33.4 RATIO High 10-20 [facility] Comment on above: Performed By: #### L 100.0100 #### [facility] [address] [place], [address] Calcium [Mass/Vol] 9.7 mg/dL Normal 7.6-11.0 [facility] Comment on above: Performed By: #### L 100.0100 #### [facility] [address] [place], [address] Chloride [Moles/Vol] 110 mmol/L High 98-108 [facility] Comment on above: Performed By: #### L 100.0100 #### [facility] [address] [place], [address] CO2 [Moles/Vol] 21.7 mmol/L Normal 21.0-32.0 [facility] Comment on above: Performed By: #### L 100.0100 #### [facility] [address] [place], [address] Creatinine [Mass/Vol] 1.15 mg/dL Normal 0.70-1.20 [facility] Comment on above: Performed By: #### L 100.0100 #### [facility] [address] [place], [address] GAP 13 Normal 5-15 [facility] Comment on above: Performed By: #### L 100.0100 #### [facility] [address] [place], [address] GFR/1.73 sq M.predicted among non-blacks MDRD (S/P/Bld) [Vol rate/Area] 54 mL/min/{1.73_m2} Low >60 [facility] Comment on above: Result Comment: mL/m in/1.73m2 CKD-EPI Creatinine Equation (2020) Performed By: #### L 100.0100 #### [facility] [address] [place], [address] Globulin (S) [Mass/Vol] 3.3 g/dL Normal 2.2-4.2 [facility] Comment on above: Performed By: #### L 100.0100 #### [facility] [address] [place], [address] Glucose [Mass/Vol] 104 mg/dL High 70-99 [facility] Comment on above: Performed By: #### L 100.0100 #### [facility] [address] [place], [address] Potassium [Moles/Vol] 4.0 mmol/L Normal 3.3-5.1 [facility] Comment on above: Result Comment: Hemo lysis present, Results??could be affected. ?? Performed By: #### L 100.0100 #### [facility] [address] [place], [address] Sodium [Moles/Vol] 144 mmol/L Normal 133-145 [facility] Comment on above: Performed By: #### L 100.0100 #### [facility] [address] [place], [address] T PROT 6.1 g/dL Normal 5.9-8.4 [facility] Comment on above: Performed By: #### L 100.0100 #### [facility] [address] [place], [address] Urea nitrogen [Mass/Vol] 38 mg/dL High 4-19 [facility] Comment on above: Performed By: #### L 100.0100 #### [facility] [address] [place], [address] Urinalysis, Completeon 01-31 BACTERIA 4+ /hpf Normal None Seen [facility] Comment on above: Order Comment: 510-1 Performed By: #### L 100.0100 #### [facility] [address] [place], [address] Mucus Ql (Urine sed) 0 SEEN Normal [facility] Comment on above: Order Comment: 510-1 Result Comment: Micr oscopic field is filled. Other elements may be obscured. Performed By: #### L 100.0100 #### [facility] [address] [place], [address] EPI,SQUAMOUS 0 SEEN Normal 5-10 [facility] Comment on above: Order Comment: 510-1 Performed By: #### L 100.0100 #### [facility] [address] [place], [address] RBC 0 SEEN Normal 0-5 [facility] Comment on above: Order Comment: 510-1 Performed By: #### L 100.0100 #### [facility] [address] [place], [address] WBC 0 SEEN Normal 0-5 [facility] Comment on above: Order Comment: 510-1 Performed By: #### L 100.0100 #### [facility] [address] [place], [address] Ferritinon 01-27-2025 Ferritin [Mass/Vol] 99 ng/mL Normal 22-378 [facility] Comment on above: Order Comment: 506.1 Performed By: #### L 503.6150, L503.6550, L503.0106 #### [facility] [address] [place], [address] Ironon 01-27-2025 Iron [Mass/Vol] 26 ug/dL Low 50-170 [facility] Comment on above: Order Comment: 506.1 Performed By: #### L 503.6150, L503.6550, L503.0106 #### [facility] [address] [place], [address] Vitamin B12on 01-27-2025 Cobalamin (Vitamin B12) [Mass/Vol] 1760 pg/mL High 180-914 [facility] Comment on above: Order Comment: 506.1 Performed By: #### L 503.6150, L503.6550, L503.0106 #### [facility] [address] [place], [place], [address] CNOVon 2025 CNOV Office Visit (REHMMN ) DIOR CARVAJAL ([id number]) 1965 F Date Time Provider Department 01/22/25 9:45 AM [facility] During your visit today, we recorded the [...] Encounter Status:Closed by LILLIE HORTON on 01/22/25 [facility] WEIDIOR Victoria ([id number]) 1965 F Date Time Provider Department 01/16/25 MINI WHYTE [facility] During your visit today, we recorded the following information about you: Gerda eDe RN 01/16/2025 11:29 AM Signed Attempted to [...] previous appt dates. Gerda Dee, RN, BSN Weekday Babysitter [facility] [...] Status:Closed by GERDA DEE on 01/16/25 Normal [facility] Absolute lymphocyte countOrd ered By: Everett Cantor on 12-02-2024 Lymphocytes Auto (Unsp spec) [#/Vol] 2.89 10*3/uL 0.83-4.51 [facility] Absolute neutrophil countOrd ered By: Everett Cantor on 12-02-2024 Neutrophils (Bld) [#/Vol] 6.6 10*3/uL 2.0-7.7 [facility] Anion gap in Serum or Plasma Ordered By: Everett Cantor on 12-02-2024 Anion gap [Moles/Vol] 9 mmol/L 5-15 [facility] Automated blood erythrocyte countOrdered By: Everett Cantor on 12-02-2024 RBC (Bld) [#/Vol] 3.53 10*6/uL Low 4.2-5.4 [facility] Comment on above: Order Comment: 510-1 Performed By: #### L 100.0100 #### [facility] [address] [place], [place], [address] Automated blood hematocrit ( percentage)Ordered By: Everett Cantor on 12-02-2024 Hematocrit (Bld) [Volume fraction] 33.1 % Low 37-47 [facility] Comment on above: Order Comment: 510-1 Performed By: #### L 100.0100 #### [facility] [address] [place], [place], [address] Automated lymphocyte count a s percentage of total leukocytesOrdered By: Everett Cantor on 12-02-2024 Lymphocytes/100 WBC Auto (Unsp spec) 27.6 % 19-41 [facility] BUN/creatinine ratioOrdered By: Everett Cantor on 12-02-2024 Urea nitrogen/Creatinine [Mass ratio] 25.4 mg/mg High 10- [facility] Basic Metabolic Profile (BMP )on 12-02-2024 BUN/CRE 25.4 RATIO High 10- [facility] Comment on above: Order Comment: 510-1 Performed By: #### L 100.0100 #### [facility] [address] [place], [address] GAP 9 Normal 5-15 [facility] Comment on above: Order Comment: 510-1 Performed By: #### L 100.0100 #### [facility] [address] [place], [address] Potassium [Moles/Vol] 4.4 mmol/L Normal 3.3-5.1 [facility] Comment on above: Order Comment: 510-1 Performed By: #### L 100.0100 #### [facility] [address] [place], [address] Basophil percentageOrdered B y: Everett Cantor on 12-02-2024 Basophils/100 WBC (Bld) 0.6 % Normal 0-1 [facility] Comment on above: Order Comment: 510-1 Performed By: #### L 100.0100 #### [facility] [address] [place], [address] CBC W/Diff, Automatedon 09-0 Absolute Lymph 2.89 X10 3/uL Normal 0.83-4.51 [facility] Comment on above: Order Comment: 510-1 Performed By: #### L 100.0100 #### [facility] [address] [place], [address] Absolute Neut 6.6 X10 3/uL Normal 2.0-7.7 [facility] Comment on above: Order Comment: 510-1 Performed By: #### L 100.0100 #### [facility] [address] [place], [address] IG% 0.500 Normal 0.0-0.9 [facility] Comment on above: Order Comment: 510-1 Result Comment: IG% - Immature Granulocytes (promyelocytes, myelocytes and metamyelocytes) > 1% indicates that a LEFT SHIFT is Present. Performed By: #### L 100.0100 #### [facility] [address] [place], [address] Lymphocytes/100 WBC (Bld) 27.6 % Normal 19-41 [facility] Comment on above: Order Comment: 510-1 Performed By: #### L 100.0100 #### [facility] [address] [place], [address] Nucleated RBC (Bld) [#/Vol] 0 10*3/uL Normal 0-5 [facility] Comment on above: Order Comment: 510-1 Performed By: #### L 100.0100 #### [facility] [address] [place], [address] RDW SD 47.4 fl High 35.1-43.9 [facility] Comment on above: Order Comment: 510-1 Performed By: #### L 100.0100 #### [facility] [address] [place], [address] Carbon dioxide, total [Moles /volume] in Central venous bloodOrdered By: Everett Cantor on 12-02-2024 CO2 [Moles/Vol] 26.8 mmol/L Normal 21.0-32.0 [facility] Comment on above: Order Comment: 510-1 Performed By: #### L 100.0100 #### [facility] [address] [place], [address] Chloride assayOrdered By: Caesar Cantor on 12-02-2024 Chloride [Moles/Vol] 105 mmol/L Normal 98-108 [facility] Comment on above: Order Comment: 510-1 Performed By: #### L 100.0100 #### [facility] [address] [place], [address] Eosinophil percentageOrdered By: Everett Cantor on 12-02-2024 Eosinophils/100 WBC (Bld) 1.6 % Normal 0-5 [facility] Comment on above: Order Comment: 510-1 Performed By: #### L 100.0100 #### [facility] [address], [address] Erythrocyte distribution wid th ratioOrdered By: Everett Cantor on 12-02-2024 Erythrocyte distribution width (RBC) [Ratio] 14.0 % Normal 11.6-14.6 [facility] Comment on above: Order Comment: 510- Performed By: #### L 100.0100 #### [facility] [address] [place], [address] Erythrocyte distribution wid th standard deviationOrdered By: Everett Cantor on 12-02-2024 Erythrocyte distribution width (RBC) [Ratio] 47.4 fl High 35.1-43.9 [facility] Glomerular filtration rate ( GFR) estimation/1.73 sq m using serum, plasma, or whole bOrdered By: Everett Cantor on 12-02-2024 GFR/1.73 sq M.predicted among non-blacks MDRD (S/P/Bld) [Vol rate/Area] 101 mL/min/{1.73_m2} Normal >60 [facility] Comment on above: mL/min/1.73m2 CKD-EP I Creatinine Equation (2020) Order Comment: Result Comment: mL/m in/1.73m2 CKD-EPI Creatinine Equation (2020) Performed By: #### L 100.0100 #### [facility] [address] [place], [place], [id number] [phone] Hemoglobin measurementOrdere d By: Everett Cantor on 12-02-2024 Hemoglobin (Bld) [Mass/Vol] 10.3 g/dL Low 12.0-15.0 [facility] Comment on above: Order Comment: Performed By: #### L 100.0100 #### [facility] [address] [place], [address] Immature granulocytes/100 WB C Auto (Bld)Ordered By: Everett Cantor on 12-02-2024 Immature granulocytes/100 WBC (Bld) 0.500 % 0.0-0.9 [facility] Comment on above: IG% - Immature Granu locytes (promyelocytes, myelocytes and metamyelocytes) > 1% indicates that a LEFT SHIFT is Present. MCV (mean corpuscular volume ) determinationOrdered By: Everett Cantor on 12-02-2024 MCV (RBC) [Entitic vol] 93.8 fL Normal 81-99 [facility] Comment on above: Order Comment: 510- Performed By: #### L 100.0100 #### [facility] [address] [place], [address] Mean corpuscular hemoglobin (MCH) determinationOrdered By: Everett Cantor on 12-02-2024 MCH (RBC) [Entitic mass] 29.2 pg Normal 27.0-32.0 [facility] Comment on above: Order Comment: - Performed By: #### L 100.0100 #### [facility] [address] [place], [address] Mean corpuscular hemoglobin concentration (MCHC) determinationOrdered By: Everett Cantor on 12-02-2024 MCHC (RBC) [Mass/Vol] 31.1 g/dL Low 32-36 [facility] Comment on above: Order Comment: Performed By: #### L 100.0100 #### [facility] [address] [place], [address] Mean platelet volume determi nationOrdered By: Everett Cantor on 12-02-2024 Platelet mean volume (Bld) [Entitic vol] 9.5 fL Normal 6.2-12.0 [facility] Comment on above: Order Comment: 510- Performed By: #### L 100.0100 #### [facility] [address] [place], [address] Monocyte percentageOrdered B y: Everett Cantor on 12-02-2024 Monocytes/100 WBC (Bld) 7.0 % Normal 0-10 [facility] Comment on above: Order Comment: 510- Performed By: #### L 100.0100 #### [facility] [address] [place], [address] Neutrophil percentageOrdered By: Everett Cantor on 12-02-2024 Neutrophils/100 WBC (Bld) 62.7 % Normal 47-70 [facility] Comment on above: Order Comment: 510- Performed By: #### L 100.0100 #### [facility] [address] [place], [address] Nucleated red blood cell per centageOrdered By: Everett Cantor on 12-02-2024 Nucleated RBC/100 WBC (Bld) [Ratio] 0 % 0-5 [facility] Platelet countOrdered By: Caesar Cantor on 12-02-2024 Platelets (Bld) [#/Vol] 414 10*3/uL Normal 150-450 [facility] Comment on above: Order Comment: 510- Performed By: #### L 100.0100 #### [facility] [address] [place], [place], [id number] Potassium measurement (mass/ volume)Ordered By: Everett Cantor on 12-02-2024 Potassium (Unsp spec) [Mass/Vol] 4.4 mmol/L 3.3-5.1 [facility] Serum creatinine measurement (mass/volume)Ordered By: Everett Cantor on 12-02-2024 Creatinine [Mass/Vol] 0.63 mg/dL Low 0.70-1.20 [facility] Comment on above: Order Comment: 510- Performed By: #### L 100.0100 #### [facility] [address] [place], [address] Serum glucose measurement (m ass/volume)Ordered By: Everett Cantor on 12-02-2024 Glucose [Mass/Vol] 90 mg/dL Normal 70-99 [facility] Comment on above: Order Comment: 510- Performed By: #### L 100.0100 #### [facility] [address] [place], [address] Serum or plasma calcium riky urement (mass/volume)Ordered By: Everett Cantor on 12-02-2024 Calcium [Mass/Vol] 9.6 mg/dL Normal 7.6-11.0 [facility] Comment on above: Order Comment: 510-1 Performed By: #### L 100.0100 #### [facility] [address] [place], [place], [id number] Serum or plasma urea nitroge n measurement (mass/volume)Ordered By: Everett Cantor on 12-02-2024 Urea nitrogen [Mass/Vol] 16 mg/dL Normal 4-19 [facility] Comment on above: Order Comment: 510-1 Performed By: #### L 100.0100 #### [facility] [address] [place], [place], [id number] Sodium levelOrdered By: Luis Cantor on 12-02-2024 Sodium [Moles/Vol] 140 mmol/L Normal 133-145 [facility] Comment on above: Order Comment: 510-1 Performed By: #### L 100.0100 #### [facility] [address] [place], [place], [address] White blood cell (WBC) count Ordered By: Everett Cantor on 12-02-2024 WBC (Bld) [#/Vol] 10.5 10*3/uL Normal 4.4-11.0 [facility] Comment on above: Order Comment: 510-1 Performed By: #### L 100.0100 #### [facility] [address] [place], [place], [id number] Urine Cultureon 11-22-2024 [facility] Escherichia coli [place] Count >100,000 Proteus mirabilis Proteus mirabilis Escherichia [...] TMP SMX Islt MIRTHA <=20 S Normal [facility] Comment on above: Performed By: #### M 100.2199, L4.2010 #### [facility] [address] [place], [address] Urinalysis, Routine (Dipstic k)on 11-20-2024 BILIRUBIN URINE Negative Normal Negative [facility] Comment on above: Order Comment: CLEAN CATCH Performed By: #### M .2199, L4 #### [facility] [address] [place], [address] Clarity (U) Turbid Normal Clear [facility] Comment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 CARVAJAL ([id number]) 1965 F Date Time Provider Department 05/02/24 MINI WHYTE HEMCA3 During your visit today, we recorded the following information about you: Gerda Dee, ALMA 05/02/2024 10:03 AM Signed Contacted [facility] radiology ph [phone] and spoke with Lana. She will push over MRA Neck /MRI spine images. Once received and reviewed by Dr Spears he will contact patient. Gerda Dee RN, BSN Weekday Babysitter [facility] [...] Status:Closed by GERDA DEE on 05/02/24 Normal [facility] MRA Neck without Contraston 04-29-2024 MRA Neck without Contrast [facility] Services [address] [place] [address] MRA Neck without Contrast MR#: [id number] Acct: [id number] Name: LEELA CARVAJAL Rep #: [id number] : 1965 F 59 From: Tres Geronimo MD PCP: Josi Garcia MD Status: REG CLI Study: MRA Neck without Contrast Date of Exam: Exam# [id number] Ordering Dr: MARIAN WHYTE PROCEDURE: MRA NECK [...] internal carotid arteries. Details above. Reading Location: [facility] CC: MINI WHYTE; Josi Garcia MD Allocations Clerk: Signed Normal [facility] Magnetic resonance imaging r eportOrdered By: Victor Manuel Bland on 04-29-2024 Study report [facility] [address] [place] [address] Spine Cervical W/WO Contrast MR#: [id number] Acct: [id number] Name: LEELA CARVAJAL Rep #: [id number] : 1965 F 59 From: Zain Bland DO PCP: Josi Garcia MD Status: REG CLI Study:Spine Cervical W/WO Contrast Date of E xam: 04/29/24 Exam# [id number] Ordering Dr: MINI DE OLIVEIRA PROCEDURE: SPINE [...] [place] CC: MINI WHYTE; Josi Garcia MD ~ Allocations Clerk: Signed [facility] Magnetic resonance imaging r eportOrdered By: Tres Geronimo on 04-29-2024 Study report [facility] [address] [place], [place] [address] MRA Neck without Contrast MR#: [id number] Acct: [id number] Name: LEELA CARVAJAL Rep #: [id number] : 1965 F 59 From: Gurpreet Geronimo MD PCP: Josi Garcia MD Status: REG CLI Study:MRA Neck without Contrast Date of Exam: 04/29/24 Exam# [id number] Ordering Dr: MINI DE OLIVEIRA PROCEDURE: MRA [...] internal carotid arteries. Details above. Reading Location: [facility] CC: MINI WHYTE; Josi Garcia MD ~ Allocations Clerk: Signed [facility] Spine Cervical W/WO Contrast on 04-29-2024 Spine Cervical W/WO Contrast [facility] Services [address] [place] [address] Spine Cervical W/WO Contrast MR#: [id number] Acct: [id number] Name: LEELA CARVAJAL Rep #: [id number] : 1965 F 59 From: Victor Manuel Bland DO PCP: Josi Garcia MD Status: REG CLI Study: Spine Cervical W/WO Contrast Date of Exam: Exam# [id number] Ordering Dr: MARIAN WHYTE PROCEDURE: SPINE CERVICAL [...] [place] CC: MINI WHYTE; Josi Garcia MD Allocations Clerk: Signed [facility] 04-11-2024 [facility] Telephone (HEMCA3) DIOR CARVAJAL ([id number]) 1965 F Date Time Provider Department 04/11/24 [facility] WHYTE [facility] During your visit today, we recorded [...] Encounter Status:Closed by [facility]ARC [facility]INA [facility] (NSCAMN) DIOR CARVAJAL ([id number]) 1965 F Date Time Provider Department 04/01/24 MINI WHYTE [facility] During your visit today, we recorded [...] not be arranged to be done at [facility] as transportation may be an issue. She is going to check and call me back later today Gerda Dee, RN, BSN Weekday Babysitter [facility] Gerda Dee, RN 04/01/2024 11:58 AM Signed Received a call from nurse White. They are unable to arrange transportation to [place] for her scans tomorrow but will arrange for them to be done at [facility]. I faxed the orders for xray c spine, MRI C spine, MRA brain/carotid to [place] fax [phone] along with pre medication orders for prednisone and benadryl. I also faxed her appointment for May. Transmission was good. Someone from the facility will contact me with the scan dates, then we need to call [facility] to have images pushed over. Due to some issues with transportation we discussed possibly doing a phone call follow up to discuss results. Patient does not have My Chart and Cindy was going to talk to licensed social worker about assisting with set up. Appointments in May for MRI main campus and visit same day. Gerda Dee, RN, BSN Weekday Babysitter [facility] [...] Encounter Status:Closed by GERDA DEE on 04/01/24 [facility] 03-31-2024 [facility] Telephone ([facility]) DIOR CARVAJAL ([id number]) 1965 F Date Time Provider Department 03/31/24 MINI WHYTE [facility] During your visit today, we recorded the following information about you: India Chi, ALMA 03/31/2024 3:32 PM Signed Called and spoke with nurse Barboza at [facility], they were unaware of the appointments [...] MA - Fully Assessed 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, [address] Ferritin measurementOrdered By: Josi Garcia on 03-31-2024 Ferritin [Mass/Vol] 16 ng/mL 8-252 [facility] Ironon 03-31-2024 Iron [Mass/Vol] 35 ug/dL Low 50-170 [facility] Comment on above: Order Comment: 510.1 Performed By: #### L 503.6150, Q696.7515 ####[facility] [address] [place], [place], [id number] Iron (Unsp spec) [Mass/Mass] Ordered By: Josi Garcia on 03-31-2024 Iron [Mass/Vol] 35 ug/dL Low 50-170 [facility] 37-VH-Xywrsvb DOrdered By: eTx Garcia on 03-28-2024 Vitamin D 25-Hydroxy 26.4 ng/mL [facility] Comment on above: Vitamin D 25(OH) Sta tus Range Deficiency <20 ng/mL (50nmol/L) Insufficiency 20 - 30 ng/mL (50 - 75 nmol/L) Sufficiency 30 - 100 ng/mL (75 - 250 nmol/L) Toxicity >100 ng/mL (>250 nmol/L) Vitamin B12 measurementOrder ed By: Josi Garcia on 03-28-2024 Cobalamin (Vitamin B12) [Mass/Vol] 290 pg/mL Normal 211-911 [facility] Comment on above: Order Comment: 510.1 Performed By: #### L 506.1000, L503.0105 ####[facility] [address] [place], [address] Vitamin D,25 Hydroxyon 03-28 Vitamin D 25-OH 26.4 ng/mL Normal [facility] Comment on above: Order Comment: 510.1 Result Comment: Kemi min D 25(OH) Status Range Deficiency <20 ng/mL (50nmol/L) Insufficiency 20 - 30 ng/mL (50 - 75 nmol/L) Sufficiency 30 - 100 ng/mL (75 - 250 nmol/L) Toxicity >100 ng/mL (>250 nmol/L) Performed By: #### L 506.1000, L503.0105 ####[facility] [address] [place], [address] Absolute neutrophil countOrd ered By: Josi Garcia on 03-27-2024 Neutrophils (Bld) [#/Vol] 4.8 10*3/uL 2.0-7.7 [facility] Basic Metabolic Profile (BMP )on 03-27-2024 BUN/CRE 23.0 RATIO High 10-20 [facility] Comment on above: Order Comment: 510-1 Performed By: #### L 500.2500, L501.5200, L501.9985, L500.4100, L100.0100, L501.9520 ####[facility] [address] [place], [address] CA,Total 9.6 mg/dL Normal 8.5-10.1 [facility] Comment on above: Order Comment: 510-1 Performed By: #### L 500.2500, L501.5200, L501.9985, L500.4100, L100.0100, L501.9520 ####[facility] [address] [place], [address] Chloride [Moles/Vol] 107 mmol/L Normal 98-107 [facility] Comment on above: Order Comment: 510-1 Performed By: #### L 500.2500, L501.5200, L501.9985, L500.4100, L100.0100, L501.9520 ####[facility] [address] [place], [address] CO2 [Moles/Vol] 30.0 mmol/L Normal 21.0-32.0 [facility] Comment on above: Order Comment: 510-1 Performed By: #### L 500.2500, L501.5200, L501.9985, L500.4100, L100.0100, L501.9520 ####[facility] [address] [place], [address] Creatinine [Mass/Vol] 0.48 mg/dL Low 0.55-1.02 [facility] Comment on above: Order Comment: 510-1 Result Comment: The validity of the calculated GFR GFRAA in patients over 70 years has not been determined. Clinical correlation is essential. Performed By: #### L 500.2500, L501.5200, L501.9985, L500.4100, L100.0100, L501.9520 ####[facility] [address] [place], [address] EST GFR - AA 170 mL/min Normal >60 [facility] Comment on above: Order Comment: 510-1 Result Comment: Afri can Citizen Of [place] GFR Calc Performed By: #### L 500.2500, L501.5200, L501.9985, L500.4100, L100.0100, L501.9520 ####[facility] [address] [place], [address] GAP 4 Low 5-15 [facility] Comment on above: Order Comment: 510-1 Performed By: #### L 500.2500, L501.5200, L501.9985, L500.4100, L100.0100, L501.9520 ####[facility] [address] [place], [address] GFR/1.73 sq M.predicted among non-blacks MDRD (S/P/Bld) [Vol rate/Area] 141 mL/min/{1.73_m2} Normal >60 [facility] Comment on above: Order Comment: 510-1 Result Comment: Non- GFR Calc Performed By: #### L 500.2500, L501.5200, L501.9985, L500.4100, L100.0100, L501.9520 ####[facility] [address] [place], [address] Glucose [Mass/Vol] 96 mg/dL Normal 74-106 [facility] Comment on above: Order Comment: 510-1 Performed By: #### L 500.2500, L501.5200, L501.9985, L500.4100, L100.0100, L501.9520 ####[facility] [address] [place], [address] Potassium [Moles/Vol] 3.8 mmol/L Normal 3.5-5.1 [facility] Comment on above: Order Comment: 510-1 Performed By: #### L 500.2500, L501.5200, L501.9985, L500.4100, L100.0100, L501.9520 ####[facility] [address] [place], [address] Sodium [Moles/Vol] 141 mmol/L Normal 136-145 [facility] Comment on above: Order Comment: 510-1 Performed By: #### L 500.2500, L501.5200, L501.9985, L500.4100, L100.0100, L501.9520 ####[facility] [address] [place], [address] Urea nitrogen [Mass/Vol] 11 mg/dL Normal 7-18 [facility] Comment on above: Order Comment: 510-1 Performed By: #### L 500.2500, L501.5200, L501.9985, L500.4100, L100.0100, L501.9520 ####[facility] [address] [place], [address] Basophil percentageOrdered B y: Josi Garcia on 03-27-2024 Basophils/100 WBC (Bld) 0.5 % 0-1 [facility] Blood urea nitrogen (BUN)/cr eatinine ratioOrdered By: Josi Garcia on 03-27-2024 Urea nitrogen/Creatinine [Mass ratio] 23.0 mg/mg High 10-20 [facility] CBC W/Diff, Automatedon Absolute Lymph 2.32 X10 3/uL Normal 0.83-4.51 [facility] Comment on above: Order Comment: 510-1 Performed By: #### L 500.2500, L501.5200, L501.9985, L500.4100, L100.0100, L501.9520 ####[facility] [address] [place], [address] Absolute Neut 4.8 X10 3/uL Normal 2.0-7.7 [facility] Comment on above: Order Comment: 510-1 Performed By: #### L 500.2500, L501.5200, L501.9985, L500.4100, L100.0100, L501.9520 ####[facility] [address] [place], [address] Basophils/100 WBC (Bld) 0.5 % Normal 0-1 [facility] Comment on above: Order Comment: 510-1 Performed By: #### L 500.2500, L501.5200, L501.9985, L500.4100, L100.0100, L501.9520 ####[facility] [address] [place], [address] Eosinophils/100 WBC (Bld) 1.7 % Normal 0-5 [facility] Comment on above: Order Comment: 510-1 Performed By: #### L 500.2500, L501.5200, L501.9985, L500.4100, L100.0100, L501.9520 ####[facility] [address] [place], [address] Erythrocyte distribution width (RBC) [Ratio] 13.1 % Normal 11.6-14.6 [facility] Comment on above: Order Comment: 510-1 Performed By: #### L 500.2500, L501.5200, L501.9985, L500.4100, L100.0100, L501.9520 ####[facility] [address] [place], [address] Hematocrit (Bld) [Volume fraction] 34.1 % Low 37-47 [facility] Comment on above: Order Comment: 510-1 Performed By: #### L 500.2500, L501.5200, L501.9985, L500.4100, L100.0100, L501.9520 ####[facility] [address] [place], [address] Hemoglobin (Bld) [Mass/Vol] 10.6 g/dL Low 12.0-15.0 [facility] Comment on above: Order Comment: 510-1 Performed By: #### L 500.2500, L501.5200, L501.9985, L500.4100, L100.0100, L501.9520 ####[facility] [address], [address] IG% 0.400 Normal 0.0-0.9 [facility] Comment on above: Order Comment: 510-1 Result Comment: IG% - Immature Granulocytes (promyelocytes, myelocytes and metamyelocytes) > 1% indicates that a LEFT SHIFT is Present. Performed By: #### L 500.2500, L501.5200, L501.9985, L500.4100, L100.0100, L501.9520 ####[facility] [address] [place], [address] Lymphocytes/100 WBC (Bld) 29.8 % Normal 19-41 [facility] Comment on above: Order Comment: 510-1 Performed By: #### L 500.2500, L501.5200, L501.9985, L500.4100, L100.0100, L501.9520 ####[facility] [address], [address] MCH (RBC) [Entitic mass] 28.7 pg Normal 27.0-32.0 [facility] Comment on above: Order Comment: 510-1 Performed By: #### L 500.2500, L501.5200, L501.9985, L500.4100, L100.0100, L501.9520 ####[facility] [address] [place], [address] MCHC (RBC) [Mass/Vol] 31.1 g/dL Low 32-36 [facility] Comment on above: Order Comment: 510-1 Performed By: #### L 500.2500, L501.5200, L501.9985, L500.4100, L100.0100, L501.9520 ####[facility] [address] [place], [address] MCV (RBC) [Entitic vol] 92.4 fL Normal 81-99 [facility] Comment on above: Order Comment: 510-1 Performed By: #### L 500.2500, L501.5200, L501.9985, L500.4100, L100.0100, L501.9520 ####[facility] [address] [place], [address] Monocytes/100 WBC (Bld) 6.3 % Normal 0-10 [facility] Comment on above: Order Comment: 510-1 Performed By: #### L 500.2500, L501.5200, L501.9985, L500.4100, L100.0100, L501.9520 ####[facility] [address] [place], [address] Neutrophils/100 WBC (Bld) 61.3 % Normal 47-70 [facility] Comment on above: Order Comment: 510-1 Performed By: #### L 500.2500, L501.5200, L501.9985, L500.4100, L100.0100, L501.9520 ####[facility] [address] [place], [address] Nucleated RBC (Bld) [#/Vol] 0 10*3/uL Normal 0-5 [facility] Comment on above: Order Comment: 510-1 Performed By: #### L 500.2500, L501.5200, L501.9985, L500.4100, L100.0100, L501.9520 ####[facility] [address] [place], [address] Platelet mean volume (Bld) [Entitic vol] 9.6 fL Normal 6.2-12.0 [facility] Comment on above: Order Comment: 510-1 Performed By: #### L 500.2500, L501.5200, L501.9985, L500.4100, L100.0100, L501.9520 ####[facility] [address] [place], [address] Platelets (Bld) [#/Vol] 283 10*3/uL Normal 150-450 [facility] Comment on above: Order Comment: 510-1 Performed By: #### L 500.2500, L501.5200, L501.9985, L500.4100, L100.0100, L501.9520 ####[facility] [address] [place], [address] RBC (Bld) [#/Vol] 3.69 10*6/uL Low 4.2-5.4 [facility] Comment on above: Order Comment: 510-1 Performed By: #### L 500.2500, L501.5200, L501.9985, L500.4100, L100.0100, L501.9520 ####[facility] [address] [place], [address] RDW SD 44.1 fl High 35.1-43.9 [facility] Comment on above: Order Comment: 510-1 Performed By: #### L 500.2500, L501.5200, L501.9985, L500.4100, L100.0100, L501.9520 ####[facility] [address] [place], [address] WBC (Bld) [#/Vol] 7.8 10*3/uL Normal 4.4-11.0 [facility] Comment on above: Order Comment: 510-1 Performed By: #### L 500.2500, L501.5200, L501.9985, L500.4100, L100.0100, L501.9520 ####[facility] [address] [place], [address] Carbon dioxide measurementOr dered By: Josi Garcia on 03-27-2024 CO2 [Moles/Vol] 30.0 mmol/L 21.0-32.0 [facility] Chloride measurementOrdered By: Josi Garcia on 03-27-2024 Chloride [Moles/Vol] 107 mmol/L 98-107 [facility] Eosinophil percentageOrdered By: Josi Garcia on 03-27-2024 Eosinophils/100 WBC (Bld) 1.7 % 0-5 [facility] Erythrocyte distribution wid th ratioOrdered By: Josi Garcia on 03-27-2024 Erythrocyte distribution width (RBC) [Ratio] 13.1 % 11.6-14.6 [facility] Erythrocyte distribution wid th standard deviationOrdered By: Josi Garcia on 03-27-2024 Erythrocyte distribution width (RBC) [Entitic vol] 44.1 fL High 35.1-43.9 [facility] Estimated glomerular filtrat ion rate (GFR) AmericanOrdered By: Josi Garcia on 03-27-2024 Estimated GFR (MDRD) Amer 170 mL/min >60 [facility] Comment on above: GFR Calc Glomerular filtration rate ( GFR) estimationOrdered By: Josi Garcia on 03-27-2024 Estimated GFR (MDRD) Non-Af Amer 141 mL/min >60 [facility] Comment on above: Non- GFR Calc Glucose measurementOrdered B y: Josi Garcia on 03-27-2024 Glucose [Mass/Vol] 96 mg/dL 74-106 [facility] Hematocrit Auto (Bld) [Volum e fraction]Ordered By: Josi Garcia on 03-27-2024 Hematocrit (Bld) [Volume fraction] 34.1 % Low 37-47 [facility] Hemoglobin A1con 03-27-2024 HbA1c (Bld) [Mass fraction] 5.4 % Normal 3.8-5.6 [facility] Comment on above: Order Comment: 510-1 Result Comment: Norm al < 5.7 % Prediabetic 5.7 - 6.4 % Diabetic >or= 6.5 % Please note range changes. Performed By: #### L 500.2500, L501.5200, L501.9985, L500.4100, L100.0100, L501.9520 ####[facility] [address] [place], [address] Hemoglobin A1c percentageOrd ered By: Josi Garcia on 03-27-2024 HbA1c (Bld) [Mass fraction] 5.4 % 3.8-5.6 [facility] Comment on above: Normal < 5.7 % Predi abetic 5.7 - 6.4 % Diabetic >or= 6.5 % Please note range changes. Hemoglobin measurementOrdere d By: Josi Garcia on 03-27-2024 Hemoglobin (Bld) [Mass/Vol] 10.6 g/dL Low 12.0-15.0 [facility] High density lipoprotein (HD L) measurementOrdered By: Josi Garcia on 03-27-2024 Cholesterol in HDL [Mass/Vol] 61 mg/dL >40 [facility] Comment on above: The drugs N-Acetylcy steine and Metamizole may falsely depress this assay. Reference Range HDL <40 mg/dL Low HDL Cholesterol HDL >or= 60 mg/dL High HDL Cholesterol Immature granulocytes/100 WB C Auto (Bld)Ordered By: Josi Garcia on 03-27-2024 Immature granulocytes/100 WBC (Bld) 0.400 % 0.0-0.9 [facility] Comment on above: IG% - Immature Granu locytes (promyelocytes, myelocytes and metamyelocytes) > 1% indicates that a LEFT SHIFT is Present. Lipid Profileon 03-27-2024 Cholesterol [Mass/Vol] 150 mg/dL Normal 200 [facility] Comment on above: Order Comment: 510-1 Result Comment: <200 mg/dL Desirable 200-240 mg/dL Borderline >240 mg/dL High Risk Performed By: #### L 500.2500, L501.5200, L501.9985, L500.4100, L100.0100, L501.9520 ####[facility] [address] [place], [address] Cholesterol in HDL [Mass/Vol] 61 mg/dL Normal [facility] Comment on above: Order Comment: 510-1 Result Comment: The drugs N-Acetylcysteine and Metamizole may falsely depress this assay. Reference Range HDL <40 mg/dL Low HDL Cholesterol HDL >or= 60 mg/dL High HDL Cholesterol Performed By: #### L 500.2500, L501.5200, L501.9985, L500.4100, L100.0100, L501.9520 ####[facility] [address] [place], [address] Cholesterol in LDL [Mass/Vol] 64 mg/dL Normal 0-130 [facility] Comment on above: Order Comment: 510-1 Performed By: #### L 500.2500, L501.5200, L501.9985, L500.4100, L100.0100, L501.9520 ####[facility] [address] [place], [address] Cholesterol in VLDL [Mass/Vol] 25 mg/dL Normal 5-40 [facility] Comment on above: Order Comment: 510-1 Performed By: #### L 500.2500, L501.5200, L501.9985, L500.4100, L100.0100, L501.9520 ####[facility] [address] [place], [address] Triglyceride [Mass/Vol] 127 mg/dL Normal [facility] Comment on above: Order Comment: 510-1 Result Comment: The drugs N-Acetylcysteine and Metamizole may falsely depress this assay. Serum Triglycerides Reference Interval Normal <150 mg/dL Borderline high 150 - 199 mg/dL High 200 - 499 mg/dL Very High > or = 500 mg/dL Performed By: #### L 500.2500, L501.5200, L501.9985, L500.4100, L100.0100, L501.9520 ####[facility] [address] [place], [address] Low density lipoprotein (LDL ) cholesterol measurementOrdered By: Josi Garcia on 03-27-2024 Cholesterol in LDL [Mass/Vol] 64 mg/dL 0-130 [facility] Lymphocytes Auto (Unsp spec) [#/Vol]Ordered By: Jois Garcia on 03-27-2024 Lymphocytes (Bld) [#/Vol] 2.32 10*3/uL 0.83-4.51 [facility] Lymphocytes/100 WBC Auto (Un sp spec)Ordered By: Josi Garcia on 03-27-2024 Lymphocytes/100 WBC (Bld) 29.8 % 19-41 [facility] MCV (mean corpuscular volume ) determinationOrdered By: Josi Garcia on 03-27-2024 MCV (RBC) [Entitic vol] 92.4 fL 81-99 [facility] Magnesiumon 03-27-2024 Magnesium [Mass/Vol] 2.1 mg/dL Normal 1.6-2.6 [facility] Comment on above: Order Comment: 510-1 Performed By: #### L 500.2500, L501.5200, L501.9985, L500.4100, L100.0100, L501.9520 ####[facility] [address] [place], [place], [address] Magnesium measurementOrdered By: Josi Garcia on 03-27-2024 Magnesium [Mass/Vol] 2.1 mg/dL 1.6-2.6 [facility] Mean corpuscular hemoglobin (MCH) determinationOrdered By: Josi Garcia on 03-27-2024 MCH (RBC) [Entitic mass] 28.7 pg 27.0-32.0 [facility] Mean corpuscular hemoglobin concentration (MCHC) determinationOrdered By: Josi Garcia on 03-27-2024 MCHC (RBC) [Mass/Vol] 31.1 g/dL Low 32-36 [facility] Mean platelet volume determi nationOrdered By: Josi Garcia on 03-27-2024 Platelet mean volume (Bld) [Entitic vol] 9.6 fL 6.2-12.0 [facility] Monocyte percentageOrdered B y: Josi Garcia on 03-27-2024 Monocytes/100 WBC (Bld) 6.3 % 0-10 [facility] Neutrophil percentageOrdered By: Josi Garcia on 03-27-2024 Neutrophils/100 WBC (Bld) 61.3 % 47-70 [facility] Nucleated red blood cell per centageOrdered By: Josi Garcia on 03-27-2024 Nucleated RBC/100 WBC (Bld) [Ratio] 0 % 0-5 [facility] Platelet countOrdered By: Chuy Garcia on 03-27-2024 Platelets (Bld) [#/Vol] 283 10*3/uL 150-450 [facility] Potassium measurementOrdered By: Josi Garcia on 03-27-2024 Potassium [Moles/Vol] 3.8 mmol/L 3.5-5.1 [facility] RBC Auto (Bld) [#/Vol]Ordere d By: Josi Garcia on 03-27-2024 RBC (Bld) [#/Vol] 3.69 10*6/uL Low 4.2-5.4 [facility] Serum anion gap measurementO rdered By: Josi Garcia on 03-27-2024 Anion gap [Moles/Vol] 4 mmol/L Low 5-15 [facility] Serum or plasma calcium riky urement (mass/volume)Ordered By: Josi Garcia on 03-27-2024 Calcium [Mass/Vol] 9.6 mg/dL 8.5-10.1 [facility] Serum or plasma cholesterol measurement (mass/volume)Ordered By: Josi Garcia on 03-27-2024 Cholesterol [Mass/Vol] 150 mg/dL <200 [facility] Comment on above: <200 mg/dL Desirable 200-240 mg/dL Borderline >240 mg/dL High Risk Serum or plasma creatinine m easurement (mass/volume)Ordered By: Josi Garcia on 03-27-2024 Creatinine [Mass/Vol] 0.48 mg/dL Low 0.55-1.02 [facility] Comment on above: The validity of the calculated GFR & GFRAA in patients over 70 years has not been determined. Clinical correlation is essential. Serum or plasma urea nitroge n measurement (mass/volume)Ordered By: Josi Garcia on 03-27-2024 Urea nitrogen [Mass/Vol] 11 mg/dL 7-18 [facility] Sodium levelOrdered By: Vanna Garcia on 03-27-2024 Sodium [Moles/Vol] 141 mmol/L 136-145 [facility] TSH QnOrdered By: Josi ayala on 03-27-2024 Thyroid Stimulating Hormone (TSH) 2.360 uIU/mL 0.358-3.740 [facility] Thyroid Stim Hormone (TSH)on 03-27-2024 TSH 2.360 uIU/mL Normal 0.358-3.740 [facility] Comment on above: Order Comment: 510-1 Performed By: #### L 500.2500, L501.5200, L501.9985, L500.4100, L100.0100, L501.9520 ####[facility] [address] [place], [address] Triglycerides measurementOrd ered By: Josi Garcia on 03-27-2024 Triglyceride [Mass/Vol] 127 mg/dL <199 [facility] Comment on above: The drugs N-Acetylcy steine and Metamizole may falsely depress this assay.Serum Triglycerides Reference Interval Normal <150 mg/dL Borderline high 150 - 199 mg/dL High 200 - 499 mg/dL Very High > or = 500 mg/dL Very low density lipoprotein (VLDL) cholesterol measurementOrdered By: Josi Garcia on 03-27-2024 VLDL Cholesterol 25 mg/dL 5-40 [facility] White blood cell (WBC) count Ordered By: Josi Garcia on 03-27-2024 WBC (Bld) [#/Vol] 7.8 10*3/uL 4.4-11.0 [facility] Crissy 03-24-2024 CHRISTIANON Telephone ([facility]) DIOR CARVAJAL ([id number]) 1965 F Date Time Provider Department 03/24/24 MINI WHYTE [facility] During your visit today, we recorded the following information about you: Gerda Dee, ALMA 03/24/2024 4:19 PM Signed Contacted [facility] correction regarding appointments scheduled for 04/02/24 (xray, MRA) and visit with Dr Spears on 04/07. I was told she is moving today to [facility] in [facility] [place]. I confirmed all her upcoming appointments and was told her appointment sheet will be sent with her to [place]. I called and left a message for her sister Katie regarding her 04/02 imaging studies and appointment with Dr Spears on 04/07 Patient has prednisone for her MRI scheduled for 05/26 but will need refill for the 04/02 scans. Refill sent to Dr Spears. Gerda Dee, RN, BSN Weekday Babysitter [facility] [...] Status:Closed by GERDA DEE on 03/24/24 Normal [facility] CNCOon 03-14-2024 CNCO Letter Text Normal [facility] CNPNikky 03-10-2024 CNPN Telephone ([facility]) DIOR CARVAJAL ([id number]) 1965 F Date Time Provider Department 03/10/24 MINI WHYTE NSCAMN During your visit today, we recorded the following information about you: Annabelle George 03/10/2024 1:29 PM Signed General Call Caller : Nieves [facility] Contact or [phone] Reason for Call : Pt is scheduled [...] instructions copied and faxed to Nieves fax [phone] completed on 03/11 @ 14;42 pm Prednisone 50mg is to be given starting 13 hours before scheduled MRi (on 05/26 @ 9:10 )am, 7 hours before and 1 hour before- for a total of 3 doses of 50mg each. 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 Patient resides At [facility] [phone]-let them know of any appointments. Scheduling Request [...] Encounter Status:Closed by NANO OJEDA on 03/10/24 [facility] 03-04-2024 [facility] Telephone ([facility]) DIOR CARVAJAL ([id number]) 1965 F Date Time Provider Department 03/04/24 MINI WHYTE [facility] During your visit today, we recorded the [...] Grief [F43.21] 05/25/2022 Encounter Status:Closed by MARC PNIA [facility]08/[facility] DIOR CARVAJAL ([id number]) 1965 F Date Time Provider Department 03/04/24 MINI WHYTE [facility] During your visit today, we recorded the following information about you: Marc Pina RN 03/04/2024 3:56 PM Addendum Scheduling Request - est Patient Time Frame: next available Orders: MRA brain, MRA carotid, MRI cervical spine, XR CERVICAL 2V FLEX/EXT - Ok to arrange close scan close to [place] Visit type: In person within a week from scans with Dr. Spears in person Diagnosis: brain tumor Patient lives in a facility and needs transportation arranged. PLease call [facility] Facility [phone]-let them know of any appointments. Nova Dorcas 03/17/2024 11:14 AM Signed Done. Called the [...] Encounter Status:Closed by DORCAS NOVA on 03/17/24 [facility] Telephone ([facility]) DIOR CARVAJAL ([id number]) 1965 F Date Time Provider Department 03/04/24 MINI WHYTE [facility] During your visit today, we recorded the following information about you: Marc Pina RN 03/04/2024 3:53 PM Addendum Patient resides At [facility] [phone]-let them know of any appointments. Scheduling Request [...] Frame: next available Orders: consult to [facility] Provider or Provider Group: [...] Encounter Status:Closed by DORCAS NOVA on 03/17/24 Normal [facility] CNOVon 02-28-2024 CNOV Office Visit ([facility] ) DIOR CARVAJAL ([id number]) 1965 F Date Time Provider Department 02/28/24 [...] No Does patient want to see a Combustion Analyst? No (yes to any of above refer [...] by a staff at the long term acute care registered nurse facility where she resides, [facility]. Subjective History of Present Illness: Mrs. Carvajal, [...] Surgery: R frontal lobe tumor resection at [facility], [place]- ([id number]) Pathology: Anaplastic astrocytoma Neurosurgeon: Raul Tamez MD [facility] , [address] [place], [place] Radiation oncologist: Unknown PER SISTER: ONLY HAD RADIATION. NEVER HAD CHEMO However on some [facility] Notes is says - patient had chemo-radiation. 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 SOCIAL: -Patient resides in [facility] -Sister Laureen SARGENT Therapy Status Data Form [...] Smoking statu (more content not included)... Normal [facility] MR Brain WO contraston 02-27 [...] abnormality. Age advanced moderate parenchymal volume loss. Allocations Clerk: [facility] Transcribe Date/Time: Feb 28 2024 2:24P Dictated by : LEONORA CUELLAR MD This examination was interpreted and the report reviewed and electronically signed by: LEONORA CUELLAR MD on Feb 28 2024 2:37PM [facility] DIVISION OF RADIOLOGY * * *Final Report* * * DATE OF EXAM: Feb 28 2024 2:16PM [facility] 0294 - MRI BRAIN WO IVCON [...] tissues are unremarkable. DIVISION OF RADIOLOGY Provider, [facility] - 02/28/2024 * * *Final Report* * [...] abnormality. Age advanced moderate parenchymal volume loss. Allocations Clerk: PSCB Transcribe Date/Time: Feb 28 2024 2:24P Dictated by : LEONORA CUELLAR MD This examination was interpreted and the report reviewed and electronically signed by: LEONORA CUELLAR MD on Feb 28 2024 2:37PM EST [facility] Radiology Study observation (narrative) [facility] MR Brain WO contrastOrdered By: Ccf Provider on 02-28-2024 [facility] MRI BRAIN WO IVCONon 024 MRI [...] Consider follow-up MRI brain to reassure stability. Allocations Clerk: MAGUI Transcribe Date/Time: Mar 04 2024 11:20A Dictated by : LEONORA CUELLAR MD This examination was interpreted and the report reviewed and electronically signed by: LEONORA CUELLAR MD on Feb 28 2024 2:37PM EST This document has been addended by: LEONORA CUELLAR MD on Mar 04 2024 11:48AM EST [id number] Normal [facility] CNOVon 02-13-2024 CNOV Office Visit (PSYTMN ) DIOR CARVAJAL ([id number]) 1965 F Date Time Provider Department 02/13/24 12:30 PM BINDU BURT PSYTMN During your visit today, we recorded the following information about you: Bindu Burt, PhD 02/29/2024 4:56 PM Signed [facility] Department of Neurology Section of Neuropsychology Neuropsychological Evaluation Report CONFIDENTIAL Patient: Dior Carvajal Referred by: Mini Whyte Date of : 1965 Date of Evaluation: 02/13/2024 SUMMARY/IMPRESSIONS: The patient is a 59-year-old, White, female, referred for a neuropsychological evaluation by Mini Whyte MD in the [facility]. 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 Of note, the patient reported [...] astrocytoma s/p right frontal tumor resection at [facility] [place] on 04/27/1992. She is unsure whether she [...] the patient. IADL/ADL: She has resided in [facility], a correction facility, since 08/05/2022. Her family visits her frequently and is reportedly involved in he (more content not included)... Normal [facility] CREATININE, BLOOD (POC)on Creatinine [Mass/Vol] 0.60 mg/dL 0.6 - 1.3 mg/dL [facility] eGFR (POCT) mL/min/1.73 m2 [facility] Location:Radiology [address] , [place], [place], [address] [place] [address] POINT OF CARE [facility] CT Head W contrast Sherice 10-0 IMPRESSION: No acute intracranial process. Remote history of RIGHT frontal craniotomy for underlying mass resection, with redemonstrated RIGHT frontal encephalomalacia and gliosis. No overt evidence of disease progression or recurrence on CT, however this is better evaluated with MR brain without and with contrast. Allocations Clerk: PSCB Transcribe Date/Time: Dec 25 2023 1:22P Dictated by : KATTY DAI MD This examination was interpreted and the report reviewed and electronically signed by: KATTY DAI MD on Dec 25 2023 1:30PM [facility] DIVISION OF RADIOLOGY * * *Final Report* [...] tissues are unremarkable. DIVISION OF RADIOLOGY Provider, [facility] - 12/25/2023 * * *Final Report* * * DATE OF EXAM: Dec 25 2023 12:25PM [facility] 0005 - CT BRAIN W IVCON [...] with MR brain without and with contrast. Allocations Clerk: MAGUI Transcribe Date/Time: Dec 25 2023 1:22P Dictated by : KATTY DAI MD This examination was interpreted and the report reviewed and electronically signed by: KATTY DAI MD on Dec 25 2023 1:30PM EST [facility] Radiology Study observation (narrative) [facility] CT Head W contrast IVOrdered By: Ccf Provider on 12-25-2023 [facility] Crissy 08-04-2022 RICHARD Telephone (LAURA) DIOR CARVAJAL ([id number]) 1965 F Date Time Provider Department 08/04/22 LEELA ESCOTO During your visit today, we recorded the following information about you: Adalberto Woods MA 08/04/2022 3:45 PM Signed Patient left message stating her handicap parking placard is going to be expiring and she would like an order for a new one mailed to [address] [place] [address]. Please advise. GEOFF Rowe DO 08/04/2022 3:48 [...] involving multiple joints [M15.9] Order(s):PARKING FOR HANDICAPPED [[id number]] Order #: [id number] Prescriptions as of 08/07/2022 - traMADol (ULTRAM) [...] Encounter Status:Closed by ADALBERTO WOODS on 08/07/22 [facility] Telephone (LAURA) DIOR CARVAJAL ([id number]) 1965 F Date Time Provider Department 07/19/22 RILEY PALMER During your visit today, we recorded the following information about you: Riley Palmer MA 07/19/2022 8:58 AM Signed Message left on vm. Patient needs apt. To get into long care facitly . Please contact Katie at [phone] to schedule apt. Thanks. GEOFF Juárez MA 07/26/2022 1:35 PM Signed Patient had a wellness visit on 12/02/21. Called Katie and left message requesting she call back and let us know what the letter needs to state. GEOFF Rowe MA 07/26/2022 3:44 PM Signed Pt. Daughter katie [phone] states letter needs to say pt. Needs long term acute care registered nurse care. GEOFF Juárez DO 07/27/2022 4:24 PM Signed Is her daughter trying to get her into an extended care facility? Is she trying to get insurance to pay for it? What would be the reasons for her needing custodial care, in the opinion of her daughter? Thanks DO Riley Oakes MA 07/28/2022 7:36 AM Signed Left message on tonyas vm to call us back with all this information. GEOFF Juárez MA 07/28/2022 9:02 AM Signed Katie stern on vm requesting a call after 9. Called and left another message to call back. GEOFF Juárez MA 07/28/2022 9:07 AM Signed Katie lm stating Dior cannot stand anymore, she needs help to get up and transferred to toilet and tub. Marlene has dropped her and cant take care of her anymore. Katie states they are also trying to get her dad in a facility (retirement also). Please advise. GEOFF Juárez MA 07/28/2022 11:40 AM Signed [facility] in [place] will be faxing over information. GEOFF Juárez MA 07/28/2022 2:41 PM Addendum [facility] sent fax stating they need current h+p with medication list, doctors order that states correction placement is needed. Riley Palmer MA Placed in green folder to review Please advise what to send. Thank you Leela Escoto DO 07/31/2022 1:36 PM Signed Letter printed DO Adalberto Oakes MA 07/31/2022 3:09 PM Signed Letter, last office visit and snap shot faxed to [facility] as requested [phone]. Adalberto Woods MA Allergies As of Date: [...] Encounter Status:Closed by RILEY PALMER on 07/19/22 [facility] CNOVon 05-25-2022 CNOV Office Visit (LAURA) DIOR CARVAJAL ([id number]) 1965 F Date Time Provider Department 05/25/22 [...] pt's father cannot continue to go to [facility] weekly and cannot go to another pharmacy - OXYCODONE 5 MG TABLET 3. Grief - ICD9: 309.0, ICD10: F43.21 Pt's son in February 26. Smoker - ICD9: 305.1, ICD1 (more content not included)... Normal [facility] CNPNikky 05-25-2022 [facility] Telephone (MAREFAMPBRUNO) DIOR CARVAJAL ([id number]) 1965 F Date Time Provider Department 05/25/22 LEELA ESCOTO During your visit today, we recorded the following information about you: Xochitl Torres MA 05/25/2022 11:51 AM Signed ----- Message from Leela Escoto DO sent at 05/25/2022 11:40 AM EST ----- Please call [facility] pharmacy and find out when they [...] 05/26/2022 8:44 AM Signed Please notify pt [facility] said they do not know when [...] Encounter Status:Closed by XOCHITL TORRES on 05/25/22 [facility] UA DIP, URINE (POC)on 2022 BILIRUBIN UA (POCT) Negative Negative [facility] CLARITY UA (POCT) [facility] COLOR UA (POCT) Dark yellow [facility] GLUCOSE UA (POCT) Negative Negative mg/dL [facility] HEMOGLOBIN/BLOOD UA (POCT) Trace-intact Abnormal Negative [facility] KETONE UA (POCT) Negative Negative mg/dL [facility] LEUKOCYTES UA (POCT) Small Abnormal Negative [facility] NITRITE UA (POCT) Negative Negative [facility] PH UA (POCT) 7.5 4.5 - 8.0 [facility] Protein Ql (U) 30 mg/dL Abnormal Negative mg/dL [facility] SPECIFIC GRAVITY UA (POCT) 1.025 1.005 - 1.030 [facility] UROBILINOGEN UA (POCT) 0.2 E.U./dL Deepa l E.U./dL [facility] ED NOTEon 03-21-2022 ED NOTE HNO ID: [id number] Author: Fausto Sawyer RN Service: Emergency Medicine [...] this time. Patient's father driving patient home. [facility] ED PROV NOTEon 03-21-2022 ED PROV NOTE HNO ID: [id number] Author: Seth Pillai MD Service: Emergency Medicine [...] (more content not included)... Normal [facility] Basic metabolic 2000 panelon 03-20-2022 Anion gap [Moles/Vol] 11 mmol/L Normal 9-18 [facility] Comment on above: Order Comment: Speci men Type: BLOOD SPECIMEN Ordering Facility: [facility] Address: [address] [place] [address] Performed By: #### 1 798-8, 29975-2, 3016-3 #### [facility] CLIA [id number] [address] [place] [address] [place] Calcium [Mass/Vol] 10.3 mg/dL High 8.5-10.2 [facility] Comment on above: Order Comment: Speci men Type: BLOOD SPECIMEN Ordering Facility: [facility] Address: [address] [place] [address] Performed By: #### 1 798-8, 22070-7, 6446-3 #### [facility] CLIA [id number] [address] [place] [address] [place] Chloride [Moles/Vol] 102 mmol/L Normal 97-105 [facility] Comment on above: Order Comment: Speci men Type: BLOOD SPECIMEN Ordering Facility: [facility] Address: [address] [place] [address] Performed By: #### 1 798-8, 52767-6, 3016-3 #### [facility] CLIA [id number] [address] [place] [address] [place] CO2 [Moles/Vol] 26 mmol/L Normal 22-30 [facility] Comment on above: Order Comment: Speci men Type: BLOOD SPECIMEN Ordering Facility: [facility] Address: [address] [place] [address] Performed By: #### 1 798-8, 78240-2, 6-3 #### [facility] CLIA [id number] [address] [place] [address] [place] Creatinine [Mass/Vol] 0.49 mg/dL Low 0.58-0.96 [facility] Comment on above: Order Comment: Jayme harding Type: BLOOD SPECIMEN Ordering Facility: [facility] Address: [address] [place] [address] Performed By: #### 1 798-8, 49920-0, 3015-3 #### [facility] CLIA [id number] [address] [place] [address] [place] ESTIMATED GLOMERULAR FILTRATION RATE 109 mL/min/1.73m??? Normal >=60 [facility] Comment on above: Order Comment: Jayme harding Type: BLOOD SPECIMEN Ordering Facility: [facility] Address: [address] [place] [address] Result Comment: Janae mated Glomerular Filtration Rate [...] actual GFR. Performed By: #### 1 798-8, 58485-4, 3015-3 #### [facility] CLIA [id number] [address] [place] [address] [place] Glucose [Mass/Vol] 122 mg/dL High 74-99 [facility] Comment on above: Order Comment: Jayme harding Type: BLOOD SPECIMEN Ordering Facility: [facility] Address: [address] [place] [address] Result Comment: The Citizen [place] Diabetes Association (ADA) provides guidance for cutoff [...] Standards of Medical Care in Diabetes 2016, Citizen Of [place] Diabetes Association. Diabetes Care. 2016.39(Suppl 1). Performed By: #### 1 798-8, 64719-0, 6-3 #### [facility] CLIA [id number] [address] [place] [address] [place] Potassium [Moles/Vol] 3.7 mmol/L Normal 3.7-5.1 [facility] Comment on above: Order Comment: Jayme harding Type: BLOOD SPECIMEN Ordering Facility: [facility] Address: [address] [place] [address] Performed By: #### 1 798-8, 02611-2, 6-3 #### [facility] CLIA [id number] [address] [place] [address] [place] Sodium [Moles/Vol] 139 mmol/L Normal 136-144 [facility] Comment on above: Order Comment: Jayme harding Type: BLOOD SPECIMEN Ordering Facility: [facility] Address: [address] [place] [address] Performed By: #### 1 798-8, 10454-8, 3015-3 #### [facility] CLIA [id number] [address] [place] [address] [place] Urea nitrogen [Mass/Vol] 9 mg/dL Normal 7-21 [facility] Comment on above: Order Comment: Jayme harding Type: BLOOD SPECIMEN Ordering Facility: [facility] Address: [address] [place] [address] Performed By: #### 1 798-8, 39943-6, 6-3 #### [facility] CLIA [id number] [address] [place] [address] [place] CBC W Auto Differential pane l (Bld)on 03-20-2022 Basophils (Bld) [#/Vol] 0.03 10*3/uL Normal <0.11 [facility] Comment on above: Order Comment: Speci men Type: BLOOD SPECIMEN Ordering Facility: [facility] Address: [address] [place] [address] Result Comment: Diff erential confirmed by visual scan of peripheral blood smear slide. Performed By: #### 5 7021-8 #### [facility] CLIA [id number] [address] [place] [address] [place] Basophils/100 WBC (Bld) 0.2 % Normal [facility] Comment on above: Order Comment: Speci men Type: BLOOD SPECIMEN Ordering Facility: [facility] Address: [address] [place] [address] Performed By: #### 5 7021-8 #### [facility] CLIA [id number] [address] [place] [address] Differential cell count method Nom (Bld) Auto Normal [facility] Comment on above: Order Comment: Speci men Type: BLOOD SPECIMEN Ordering Facility: [facility] Address: [address] [place] [address] Performed By: #### 5 7021-8 #### [facility] CLIA [id number] [address] [place] [address] [place] Eosinophils (Bld) [#/Vol] 0.04 10*3/uL Normal <0.46 [facility] Comment on above: Order Comment: Speci men Type: BLOOD SPECIMEN Ordering Facility: [facility] Address: [address] [place] [address] Performed By: #### 5 7021-8 #### [facility] CLIA [id number] [address] [place] Eosinophils/100 WBC (Bld) 0.3 % Normal [facility] Comment on above: Order Comment: Speci men Type: BLOOD SPECIMEN Ordering Facility: [facility] Address: [address] [address] Performed By: #### 5 7021-8 #### [facility] CLIA [id number] [address] [place] [address] [place] Erythrocyte distribution width (RBC) [Ratio] 12.8 % Normal 11.5-15.0 [facility] Comment on above: Order Comment: Speci men Type: BLOOD SPECIMEN Ordering Facility: [facility] Address: [address] [place] [address] Performed By: #### 5 7021-8 #### [facility] CLIA [id number] [address] [place] [address] [place] Hematocrit (Bld) [Volume fraction] 39.9 % Normal 36.0-46.0 [facility] Comment on above: Order Comment: Speci men Type: BLOOD SPECIMEN Ordering Facility: [facility] Address: [address] [place] [address] Performed By: #### 5 7021-8 #### [facility] CLIA [id number] [address] [place] Hemoglobin (Bld) [Mass/Vol] 12.8 g/dL Normal 11.5-15.5 [facility] Comment on above: Order Comment: Speci men Type: BLOOD SPECIMEN Ordering Facility: [facility] Address: [address] [place] [address] Performed By: #### 5 7021-8 #### [facility] CLIA [id number] [address] [place] Immature granulocytes (Bld) [#/Vol] 0.03 10*3/uL Normal <0.10 [facility] Comment on above: Order Comment: Speci men Type: BLOOD SPECIMEN Ordering Facility: [facility] Address: [address] [place] [address] Performed By: #### 5 7021-8 #### [facility] CLIA [id number] [address] [place] Immature granulocytes/100 WBC (Bld) 0.2 % Normal [facility] Comment on above: Order Comment: Speci men Type: BLOOD SPECIMEN Ordering Facility: [facility] Address: [address] [place] [address] Performed By: #### 5 7021-8 #### [facility] CLIA [id number] [address] [place] [address] [place] Lymphocytes (Bld) [#/Vol] 1.95 10*3/uL Normal 1.00-4.00 [facility] Comment on above: Order Comment: Speci men Type: BLOOD SPECIMEN Ordering Facility: [facility] Address: [address] [place] [address] Performed By: #### 5 7021-8 #### [facility] CLIA [id number] [address] Lymphocytes/100 WBC (Bld) 12.2 % Normal [facility] Comment on above: Order Comment: Speci men Type: BLOOD SPECIMEN Ordering Facility: [facility] Address: [address] [place] [address] Performed By: #### 5 7021-8 #### [facility] CLIA [id number] [address] [place] [address] [place] MCH (RBC) [Entitic mass] 29.6 pg Normal 26.0-34.0 [facility] Comment on above: Order Comment: Speci men Type: BLOOD SPECIMEN Ordering Facility: [facility] Address: [address] [place] [address] Performed By: #### 5 7021-8 #### [facility] CLIA [id number] [address] [place] [address] [place] MCHC (RBC) [Mass/Vol] 32.1 g/dL Normal 30.5-36.0 [facility] Comment on above: Order Comment: Speci men Type: BLOOD SPECIMEN Ordering Facility: [facility] Address: [address] [place] [address] Performed By: #### 5 7021-8 #### [facility] CLIA [id number] [address] [place] [address] [place] MCV (RBC) [Entitic vol] 92.4 fL Normal 80.0-100.0 [facility] Comment on above: Order Comment: Speci men Type: BLOOD SPECIMEN Ordering Facility: [facility] Address: [address] [place] [address] Performed By: #### 5 7021-8 #### [facility] CLIA [id number] [address] [place] Monocytes (Bld) [#/Vol] 0.72 10*3/uL Normal <0.87 [facility] Comment on above: Order Comment: Speci men Type: BLOOD SPECIMEN Ordering Facility: [facility] Address: [address] [place] [address] Performed By: #### 5 7021-8 #### [facility] CLIA [id number] [address] [place] Monocytes/100 WBC (Bld) 4.5 % Normal A [facility] Comment on above: Order Comment: Speci men Type: BLOOD SPECIMEN Ordering Facility: [facility] Address: [address] [place] [address] Performed By: #### 5 7021-8 #### [facility] CLIA [id number] [address] [place] [address] [place] Neutrophils (Bld) [#/Vol] 13.18 10*3/uL High 1.45-7.50 [facility] Comment on above: Order Comment: Speci men Type: BLOOD SPECIMEN Ordering Facility: [facility] Address: [address] [place] [address] Performed By: #### 5 7021-8 #### [facility] CLIA [id number] [address] [place] Neutrophils/100 WBC (Bld) 82.6 % Normal [facility] Comment on above: Order Comment: Speci men Type: BLOOD SPECIMEN Ordering Facility: [facility] Address: [address] [place] [address] Performed By: #### 5 7021-8 #### [facility] CLIA [id number] [address] [place] [address] [place] Nucleated RBC (Bld) [#/Vol] Normal [facility] Comment on above: Order Comment: Speci men Type: BLOOD SPECIMEN Ordering Facility: [facility] Address: [address] [address] Performed By: #### 5 7021-8 #### [facility] CLIA [id number] [address] [place] [address] [place] Nucleated RBC/100 WBC (Bld) [Ratio] Normal [facility] Comment on above: Order Comment: Speci men Type: BLOOD SPECIMEN Ordering Facility: [facility] Address: [address] [address] Performed By: #### 5 7021-8 #### [facility] CLIA [id number] [address] [place] [address] [place] Platelet mean volume (Bld) [Entitic vol] 9.2 fL Normal 9.0-12.7 [facility] Comment on above: Order Comment: Speci men Type: BLOOD SPECIMEN Ordering Facility: [facility] Address: [address] [address] Performed By: #### 5 7021-8 #### [facility] CLIA [id number] [address] [place] [address] [place] Platelets (Bld) [#/Vol] 303 10*3/uL Normal 150-400 [facility] Comment on above: Order Comment: Speci men Type: BLOOD SPECIMEN Ordering Facility: [facility] Address: [address] [place] [address] Result Comment: RARE PLATELET CLUMPS NO CLOT Performed By: #### 5 7021-8 #### [facility] CLIA [id number] [address] Platelets Estimate (Bld) [#/Vol] Adequate Normal [facility] Comment on above: Order Comment: Speci men Type: BLOOD SPECIMEN Ordering Facility: [facility] Address: [address] [place] [address] Performed By: #### 5 7021-8 #### [facility] CLIA [id number] [address] RBC (Bld) [#/Vol] 4.32 10*6/uL Normal 3.90-5.20 [facility] Comment on above: Order Comment: Speci men Type: BLOOD SPECIMEN Ordering Facility: [facility] Address: [address] [place] [address] Performed By: #### 5 7021-8 #### [facility] CLIA [id number] [address] [place] [address] RED CELL MORPH Reviewed: unremarkable Normal [facility] Comment on above: Order Comment: Speci men Type: BLOOD SPECIMEN Ordering Facility: [facility] Address: [address] [place] [address] Performed By: #### 5 7021-8 #### [facility] CLIA [id number] [address] [place] [address] WBC (Bld) [#/Vol] 15.95 10*3/uL High 3.70-11.00 [facility] Comment on above: Order Comment: Speci men Type: BLOOD SPECIMEN Ordering Facility: [facility] Address: [address] [place] [address] Performed By: #### 5 7021-8 #### [facility] CLIA [id number] [address] [place] [address] CT ABD/PEL WO IVCONon 2021 CT ABD/PEL WO IVCON * * *Final Report* * * DATE OF EXAM: Mar 20 2022 8:50PM [facility] 0531 - CT ABD/PEL WO IVCON / [...] arthroplasty has been performed. Lower thorax: Unremarkable. 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 There is no obstructive uropathy. Allocations Clerk: PSCB Transcribe Date/Time: Mar 20 2022 9:05P Dictated by : LESLY BOSTON MD This examination was interpreted and the report reviewed and electronically signed by: LESLY BOSTON MD on Mar 20 2022 9:18PM EST [id number] Normal [facility] [facility] 03-20-2022 ED NOTE HNO ID: [id number] Author: Fausto Sawyer RN Service: Emergency Medicine Author Type: Registered Nurse Type: ED Notes Filed: 03/20/2022 9:31 PM Note Text: Patient informed about the name of the medication(s), what the medication(s) is(are) for, and what to expect with/from med administration. Patient given opportunity to ask questions. Medication(s) include: Macrobid. [facility] ED NOTE HNO ID: [id number] Author: Fausto Sawyer RN Service: Emergency Medicine Author Type: Registered Nurse Type: ED Notes Filed: 03/20/2022 9:26 PM Note Text: Physician at bedside. [facility] ED NOTE HNO ID: [id number] Author: Pau Castañeda RN Service: Nursing Author Type: Registered Nurse Type: ED Notes Filed: 03/20/2022 7:16 PM Note Text: Report to ALMA Lambert [facility] ED NOTE HNO ID: [id number] Author: Fausto Sawyer RN Service: Emergency Medicine Author Type: Registered Nurse Type: ED Notes Filed: 03/20/2022 10:11 PM Note Text: Change of shift report received from Pau Clay RN. This RN assumed patient care at this time. [facility] ED NOTE HNO ID: [id number] Author: Pau Castañeda RN Service: Nursing Author Type: Registered Nurse Type: ED Notes Filed: 03/20/2022 6:50 PM Note Text: Pt taken to bathroom, unable to void [facility] ED NOTE HNO ID: [id number] Author: Pau Castañeda RN Service: Nursing Author Type: Registered Nurse Type: ED Notes Filed: 03/20/2022 6:19 PM Note Text: Pt arrives with report of UTI, noticed symptoms about 1 week ago. Pt reports frequency, burning, and always going. Pt reports pain in the crotch, pt reports pain is constant Normal [facility] Urinalysis complete pnl Uron 03-20-2022 Urinalysis complete [...] CFU/ml Normal urogenital keisha Normal [facility] Comment on above: Order Comment: Speci men Type: URINE SPECIMENOrdering Facility: [facility] Address: [facility] [place] [address] Performed By: #### 2 4356-8 ####[facility]IA [id number] [place] [address] [facility]ORY[facility] [id number] [place] [address] [facility] CNOVon 02-24-2022 CNOV Office Visit (AGFAMPLE) DIOR CARVAJAL ([id number]) 1965 F Date Time Provider Department 02/24/22 [...] (more content not included)... Normal [facility] CT ABD/PEL WO IVCONon 2021 CT ABD/PEL WO IVCON * * *Final Report* * * DATE OF EXAM: Jan 18 2022 3:44PM [facility] 0531 - CT ABD/PEL WO IVCON / [...] Lower thorax: No acute osseous abnormality identified. Director Occupational (topogram) images: No additional findings. IMPRESSION: No acute process identified involving the abdomen or pelvis. Left pelvic kidney and left nephrolithiasis. Additional findings as above. Allocations Clerk: PSCB Transcribe Date/Time: Jan 20 2022 1:57P Dictated by : SETH CHAPMAN MD This examination was interpreted and the report reviewed and electronically signed by: SETH CHAPMAN MD on Jan 20 2022 2:02PM EST [id number] Normal [facility] C diff Tox gens Stl Ql BARB+p robeon 12-27-2021 C. difficile toxin genes BARB+probe Ql (Stl) Negative Normal Negative for C. difficile toxin by PCR [facility] Comment on above: Order Comment: Speci men Type: STOOL SPECIMEN Ordering Facility: [facility] Address: [address] [place] [address] Performed By: #### 5 4067-4 #### [facility] CLIA [id number] [address] [place] [address] [place] FECAL LACTOFERRIN/LEUKOCYTES on 12-27-2021 Lactoferrin IA Ql (Stl) Negative for lactoferrin, which may indicate the absence of fecal white blood cells Normal Negative [facility] Comment on above: Order Comment: Speci meaghan Type: BLOOD SPECIMEN Ordering Facility: [facility] Address: [address] [place] [address] Performed By: #### 1 798-8, 88884-6, 3016-3 #### [facility] CLIA [id number] [address] [place] [address] [place] GI pathogens Pnl Stl Culton 12-27-2021 Gastrointestinal pathogens panel Cx (Stl) CULTURE, STOOL: No Salmonella, Shigella, Campylobacter or E. coli O157:H7 isolated Normal [facility] Comment on above: Performed By: #### 8 2305-4 ####[facility]ORYCLIA [id number] [address] [facility] O+P Spec Microon 12-27-2021 Ova and parasites identified LM Nom (Unsp spec) OVA AND PARASITE EXAM: No Parasites Seen Normal [facility] Comment on above: Performed By: #### 6 73-4 ####[facility] LAB[facility] [id number] [place] [address] [place] Amylase SerPl-cCncon 022 Amylase [Catalytic activity/Vol] 32 U/L Normal 30-104 [facility] Comment on above: Order Comment: Speci meaghan Type: BLOOD SPECIMEN Ordering Facility: [facility] Address: [address] [place] [address] Performed By: #### 1 798-8, 70016-0, 6-3 #### [facility] CLIA [id number] [address] [place] [address] [place] CBC W Auto Differential pane l (Bld)on 12-26-2021 Basophils (Bld) [#/Vol] 0.04 10*3/uL Normal <0.11 [facility] Comment on above: Order Comment: Jayme harding Type: BLOOD SPECIMEN Ordering Facility: [facility] Address: [address] [place], [place] [address] Performed By: #### 1 798-8, 56680-1, 6-3 #### [facility] CLIA [id number] [address] [place] [address] [place] Basophils/100 WBC (Bld) 0.4 % Normal A [facility] Comment on above: Order Comment: Speci men Type: BLOOD SPECIMEN Ordering Facility: [facility] Address: [address] [place] [address] Performed By: #### 1 798-8, 36153-0, 6-3 #### [facility] CLIA [id number] [address] [place] [address] [place] Differential cell count method Nom (Bld) Auto Normal [facility] Comment on above: Order Comment: Speci men Type: BLOOD SPECIMEN Ordering Facility: [facility] Address: [address] [place] [address] Performed By: #### 1 798-8, 91748-9, 3015-3 #### [facility] CLIA [id number] [address] [place] [address] [place] Eosinophils (Bld) [#/Vol] 0.07 10*3/uL Normal <0.46 [facility] Comment on above: Order Comment: Speci men Type: BLOOD SPECIMEN Ordering Facility: [facility] Address: [address] [place] [address] Performed By: #### 1 798-8, 67745-1, 3015-3 #### [facility] CLIA [id number] [address] [place] [address] [place] Eosinophils/100 WBC (Bld) 0.7 % Normal [facility] Comment on above: Order Comment: Speci men Type: BLOOD SPECIMEN Ordering Facility: [facility] Address: [address] [place] [address] Performed By: #### 1 798-8, 76353-2, 6-3 #### [facility] CLIA [id number] [address] [place] [address] [place] Erythrocyte distribution width (RBC) [Ratio] 13.3 % Normal 11.5-15.0 [facility] Comment on above: Order Comment: Jayme harding Type: BLOOD SPECIMEN Ordering Facility: [facility] Address: [address] [place] [address] Performed By: #### 1 798-8, 40177-2, 3016-3 #### [facility] CLIA [id number] [address] [place] [address] [place] Hematocrit (Bld) [Volume fraction] 42.4 % Normal 36.0-46.0 [facility] Comment on above: Order Comment: Jayme harding Type: BLOOD SPECIMEN Ordering Facility: [facility] Address: [address] [place] [address] Performed By: #### 1 798-8, 51003-1, 3016-3 #### [facility] CLIA [id number] [address] [place] [address] [place] Hemoglobin (Bld) [Mass/Vol] 13.1 g/dL Normal 11.5-15.5 [facility] Comment on above: Order Comment: Jayme harding Type: BLOOD SPECIMEN Ordering Facility: [facility] Address: [address] [place] [address] Performed By: #### 1 798-8, 44796-2, 3016-3 #### [facility] CLIA [id number] [address] [place] [address] [place] Lymphocytes (Bld) [#/Vol] 1.92 10*3/uL Normal 1.00-4.00 [facility] Comment on above: Order Comment: aJyme harding Type: BLOOD SPECIMEN Ordering Facility: [facility] Address: [address] [place] [address] Performed By: #### 1 798-8, 54660-6, 3016-3 #### [facility] CLIA [id number] [address] [place] Lymphocytes/100 WBC (Bld) 19.5 % Normal [facility] Comment on above: Order Comment: Speci meaghan Type: BLOOD SPECIMEN Ordering Facility: [facility] Address: [address] [place] [address] Performed By: #### 1 798-8, 13315-5, 6-3 #### [facility] CLIA [id number] [address] [place] [address] [facility] MCH (RBC) [Entitic mass] 29.0 pg Normal 26.0-34.0 [facility] Comment on above: Order Comment: Speci men Type: BLOOD SPECIMEN Ordering Facility: [facility] Address: [address] [place] [address] Performed By: #### 1 798-8, 26332-7, 3015-3 #### [facility] CLIA [id number] [address] [place], [place] [address] [place] [address] [place] MCHC (RBC) [Mass/Vol] 30.9 g/dL Normal 30.5-36.0 [facility] Comment on above: Order Comment: Speci men Type: BLOOD SPECIMEN Ordering Facility: [facility] Address: [address] [place] [address] Performed By: #### 1 798-8, 06855-1, 3015-3 #### [facility] CLIA [id number] [address] [place] [address] [facility] MCV (RBC) [Entitic vol] 93.8 fL Normal 80.0-100.0 [facility] Comment on above: Order Comment: Speci men Type: BLOOD SPECIMEN Ordering Facility: [facility] Address: [address] [place] [address] Performed By: #### 1 798-8, 41732-7, 6-3 #### [facility] CLIA [id number] [address] [place] [address] [facility] Monocytes (Bld) [#/Vol] 0.44 10*3/uL Normal <0.87 [facility] Comment on above: Order Comment: Speci men Type: BLOOD SPECIMEN Ordering Facility: [facility] Address: [address] [place] [address] Performed By: #### 1 798-8, 83229-8, 6-3 #### [facility] CLIA [id number] [address] [place] [address] [place] Monocytes/100 WBC (Bld) 4.5 % Normal A [facility] Comment on above: Order Comment: Speci men Type: BLOOD SPECIMEN Ordering Facility: [facility] Address: [address] [place] [address] Performed By: #### 1 798-8, 85086-0, 3015-3 #### [facility] CLIA [id number] [address] [place] [address] [place] Neutrophils (Bld) [#/Vol] 7.39 10*3/uL Normal 1.45-7.50 [facility] Comment on above: Order Comment: Speci men Type: BLOOD SPECIMEN Ordering Facility: [facility] Address: [address] [place] [address] Performed By: #### 1 798-8, 63061-1, 3 #### [facility] CLIA [id number] [address] [place] [address] [facility] Neutrophils/100 WBC (Bld) 74.9 % Normal [facility] Comment on above: Order Comment: Speci men Type: BLOOD SPECIMEN Ordering Facility: [facility] Address: [address] [place] [address] Performed By: #### 1 798-8, 19276-5, 3015-3 #### [facility] CLIA [id number] [address] [place] [address] [place] Platelet mean volume (Bld) [Entitic vol] 9.7 fL Normal 9.0-12.7 [facility] Comment on above: Order Comment: Speci men Type: BLOOD SPECIMEN Ordering Facility: [facility] Address: [address] [place], [place] [address] Performed By: #### 1 798-8, 39584-2, 3016-3 #### [facility] CLIA [id number] [address] [place] [address] [facility] Platelets (Bld) [#/Vol] 311 10*3/uL Normal 150-400 [facility] Comment on above: Order Comment: Speci [facility] Type: BLOOD SPECIMEN Ordering Facility: [facility] Address: [address] [place] [address] Performed By: #### 1 798-8, 12555-5, 3016-3 #### [facility] CLIA [id number] [address] [place] [address] [facility] [place] RBC (Bld) [#/Vol] 4.52 10*6/uL Normal 3.90-5.20 [facility] Comment on above: Order Comment: Speci [facility] Type: BLOOD SPECIMEN Ordering Facility: [facility] Address: [address] [place] [address] Performed By: #### 1 798-8, 70619-4, 3016-3 #### [facility] CLIA [id number] [address] [place] [address] [facility] [place] WBC (Bld) [#/Vol] 9.86 10*3/uL Normal 3.70-11.00 [facility] Comment on above: Order Comment: Speci [facility] Type: BLOOD SPECIMEN Ordering Facility: [facility] Address: [address] [place] [address] Performed By: #### 1 798-8, 09414-9, 3016-3 #### [facility] CLIA [id number] [address] [place] [address] [facility] HLA-DQ GENOTYPE on 12-26-2021 CELIAC CATEGORY Category 3 Normal [facility] Comment on above: Order Comment: Speci [facility] Type: BLOOD SPECIMEN Ordering Facility: [facility] Address: [address] [place] [address] Result Comment: CATEGORY DQ HAPLOTYPE RELATIVE RISK [...] HLA allele is reported. References: 1. Dontae Hernandez, Blair Nice, Richie Kessler, et al. Cost-effective HLA typing with tagging SNPs predicts celiac disease risk haplotypes in the American, [place] and [place] populations. Immunogenetics. 2009 Apr;61(4):247-56. 2. César STERN. Celiac disease: dissecting a complex inflammatory disorder. Ale Rev Immunol. 2002 Sep;2(9):170-55. 3. Valadez E, Vineet HS, Danny CA, et al. Risk of pediatric celiac disease according to HLA haplotype and country. N Engl J Med. 2014 ;371(1):42-9. HLA typing performed by PCR-RSSOP and/or NGS. This test was developed and its performance characteristics determined by [facility]. The test has not been cleared or approved by the [place] FDA. However, FDA approval was not necessary since this lab is certified under CLIA for high complexity testing. Test performed by: [facility], [address] [place] [address]. CLIA [id number]. Performed By: #### C PIETER #### [facility] CLIA [id number] [address] [place] [address] CELIAC RISK HAPLOTYPE Positive Normal [facility] Comment on above: Order Comment: Speci men Type: BLOOD SPECIMEN Ordering Facility: [facility] Address: [address] [place] [address] Performed By: #### C PIETER #### [facility] CLIA [id number] [address] [place] [address] HLA-DQA1 GENOTYPE HLA-DQA1*: 05, 01 [facility] Comment on above: Order Comment: Speci men Type: BLOOD SPECIMEN Ordering Facility: [facility] Address: [address] [place] [address] Performed By: #### C PIETER #### [facility] CLIA [id number] [address] [place] [address] [place] HLA-DQB1 GENOTYPE HLA-DQB1*: 02:01, 06 [facility] Comment on above: Order Comment: Speci men Type: BLOOD SPECIMEN Ordering Facility: [facility] Address: [address] [place] [address] Performed By: #### C PIETER #### [facility] CLIA [id number] [address] [place] [address] [place] CELIAC SCREENon 10-03-2022 GLIAD DEAMIDATED IGA QUAL Negative Normal Negative, Test not Indicated [facility] Comment on above: Order Comment: Jayme harding Type: BLOOD SPECIMEN Ordering Facility: [facility] Address: [address] [place] [address] Result Comment: This is used as an aid in diagnosis of celiac disease. Clinical correlation is required. The following results were obtained with an XZERES QUANTA Lite Gliadin IgA DENISE Gliadin. Gliadin IgA values obtained with different manufacturers' assay methods may not be used interchangeably. The magnitude of the reported IgA levels cannot be correlated to an endpoint titer. Performed By: #### 1 798-8, 53013-4, 3016-3 #### [facility] CLIA [id number] [address] [place] [address] Gliadin peptide IgA Qn (S) 2 Units Normal <20 [facility] Comment on above: Order Comment: Jayme harding Type: BLOOD SPECIMEN Ordering Facility: [facility] Address: [address] [place] [address] Performed By: #### 1 798-8, 36572-2, 3016-3 #### [facility] CLIA [id number] [address] [place] [address] INTERPRETATION No serological evidence of celiac disease, however, if celiac disease is clinically suspected and patient is not on gluten-free diet, histological diagnosis may be considered. HLA testing may help with risk assessment. Normal [facility] Comment on above: Order Comment: Jayme harding Type: BLOOD SPECIMEN Ordering Facility: [facility] Address: [address] [place] [address] Performed By: #### 1 798-8, 97344-1, 3016-3 #### [facility] CLIA [id number] [address] [place] [address] TRANSGLUTAMINASE IGA QUAL Negative Normal Negative, Test not Indicated [facility] Comment on above: Order Comment: Jayme harding Type: BLOOD SPECIMEN Ordering Facility: [facility] Address: [address] [place] [address] Result Comment: The following results were obtained with the [employer]otec AMDva QAUNTA Lite h-tTG IgA DENISE. h-tTG IgA values obtained with different manufacturers' assay methods may not be used interchangeable. The magnitude of the reported IgA levels cannot be correlated to an endpoint titer. This is used as an aid in diagnosis of celiac disease. Clinical correlation is required. Performed By: #### 1 798-8, 96734-1, 3016-3 #### [facility] CLIA [id number] [address] [place] [address] tTG IgA Qn (S) 3 Units Normal <20 [facility] Comment on above: Order Comment: Jayme harding Type: BLOOD SPECIMEN Ordering Facility: [facility] Address: [address] [place] [address] Performed By: #### 1 798-8, 38994-0, 3016-3 #### [facility] CLIA [id number] [address] [place] [address] Comp Metab 2000 Pnl SerPlon 12-26-2021 Bilirubin [Mass/Vol] 0.4 mg/dL Normal 0.2-1.3 [facility] Comment on above: Order Comment: Jayme harding Type: BLOOD SPECIMEN Ordering Facility: [facility] Address: [address] [place] [address] Performed By: #### 1 798-8, 05309-0, 3016-3 #### [facility] CLIA [id number] [address] [place] [address] Performed By: #### 5 0189-0 #### [facility] CLIA [id number] [address] [place] [address] [place] Comprehensive metabolic 2000 panelon 12-26-2021 Albumin [Mass/Vol] 4.1 g/dL Normal 3.9-4.9 [facility] Comment on above: Order Comment: Jayme harding Type: BLOOD SPECIMEN Ordering Facility: [facility] Address: [address] [place] [address] Performed By: #### 1 798-8, 33553-4, 6-3 #### [facility] CLIA [id number] [address] [place] [address] [place] ALP [Catalytic activity/Vol] 121 U/L Normal 34-123 [facility] Comment on above: Order Comment: Speci men Type: BLOOD SPECIMEN Ordering Facility: [facility] Address: [address] [place] [address] Performed By: #### 1 798-8, 29784-1, 6-3 #### [facility] CLIA [id number] [address] [place], [place] [address] [place] [address] ALT With P-5'-P [Catalytic activity/Vol] 8 U/L Normal 7-38 [facility] Comment on above: Order Comment: Speci men Type: BLOOD SPECIMEN Ordering Facility: [facility] Address: [address] [place] [address] Performed By: #### 1 798-8, 77257-5, 3015-3 #### [facility] CLIA [id number] [address] [place] [address] [facility] Anion gap [Moles/Vol] 9 mmol/L Normal 9-18 [facility] Comment on above: Order Comment: Speci men Type: BLOOD SPECIMEN Ordering Facility: [facility] Address: [address] [place] [address] Performed By: #### 1 798-8, 84256-4, 3015-3 #### [facility] CLIA [id number] [address] [place] [address] [facility] AST With P-5'-P [Catalytic activity/Vol] 15 U/L Normal 13-35 [facility] Comment on above: Order Comment: Speci men Type: BLOOD SPECIMEN Ordering Facility: [facility] Address: [address] [place] [address] Performed By: #### 1 798-8, 34178-8, 6-3 #### [facility] CLIA [id number] [address] [place] [address] [facility] Calcium [Mass/Vol] 10.0 mg/dL Normal 8.5-10.2 [facility] Comment on above: Order Comment: Jayme harding Type: BLOOD SPECIMEN Ordering Facility: [facility] Address: [address] [place] [address] Performed By: #### 1 798-8, 49134-4, 3016-3 #### [facility] CLIA [id number] [address] [place] [address] [place] Chloride [Moles/Vol] 105 mmol/L Normal 97-105 [facility] Comment on above: Order Comment: Jayme harding Type: BLOOD SPECIMEN Ordering Facility: [facility] Address: [address] [place] [address] Performed By: #### 1 798-8, 20278-2, 3016-3 #### [facility] CLIA [id number] [address] [place] CO2 [Moles/Vol] 28 mmol/L Normal 22-30 [facility] Comment on above: Order Comment: Jayme harding Type: BLOOD SPECIMEN Ordering Facility: [facility] Address: [address] [place] [address] Performed By: #### 1 798-8, 03836-4, 3016-3 #### [facility] CLIA [id number] [address] [place] Creatinine [Mass/Vol] 0.54 mg/dL Low 0.58-0.96 [facility] Comment on above: Order Comment: Nickyi men Type: BLOOD SPECIMEN Ordering Facility: [facility] Address: [address] [place] [address] Performed By: #### 1 798-8, 73767-1, 3016-3 #### [facility] CLIA [id number] [address] [place] [address] [facility] ESTIMATED GLOMERULAR FILTRATION RATE 108 mL/min/1.73m??? Normal >=60 [facility] Comment on above: Order Comment: Jayme harding Type: BLOOD SPECIMEN Ordering Facility: [facility] Address: [address] [place] [address] Result Comment: Janae mated Glomerular Filtration Rate [...] actual GFR. Performed By: #### 1 798-8, 41678-4, 3016-3 #### [facility] CLIA [id number] [address] [place], [place] [address] [place] Glucose [Mass/Vol] 94 mg/dL Normal 74-99 [facility] Comment on above: Order Comment: Jayme harding Type: BLOOD SPECIMEN Ordering Facility: [facility] Address: [address] [place] [address] Result Comment: The [place] Diabetes Association (ADA) provides guidance for cutoff [...] Standards of Medical Care in Diabetes 2016, [place] Diabetes Association. Diabetes Care. 2016.39(Suppl 1). Performed By: #### 1 798-8, 76679-6, 3016-3 #### [facility] CLIA [id number] [address] [place] [address] [place] Potassium [Moles/Vol] 4.0 mmol/L Normal 3.7-5.1 [facility] Comment on above: Order Comment: Jayme harding Type: BLOOD SPECIMEN Ordering Facility: [facility] Address: [address] [place] [address] Performed By: #### 1 798-8, 02694-0, 3016-3 #### [facility] CLIA [id number] [address] [place] [address] [place] Protein [Mass/Vol] 6.9 g/dL Normal 6.3-8.0 [facility] Comment on above: Order Comment: Speci men Type: BLOOD SPECIMEN Ordering Facility: [facility] Address: [address] [place] [address] Performed By: #### 1 798-8, 06708-6, 3016-3 #### [facility] CLIA [id number] [address] [place] Sodium [Moles/Vol] 142 mmol/L Normal 136-144 [facility] Comment on above: Order Comment: Speci men Type: BLOOD SPECIMEN Ordering Facility: [facility] Address: [address] [place] [address] Performed By: #### 1 798-8, 36984-7, 6-3 #### [facility] CLIA [id number] [address] [place] [address] [place] Urea nitrogen [Mass/Vol] 8 mg/dL Normal 7-21 [facility] Comment on above: Order Comment: Speci men Type: BLOOD SPECIMEN Ordering Facility: [facility] Address: [address] [place] [address] Performed By: #### 1 798-8, 62770-8, 3016-3 #### [facility] CLIA [id number] [address] [place] [address] [place] ESR Westergren method (Bld) [Velocity]on 12-26-2021 ESR (Bld) [Velocity] 19 mm/h Normal 0-30 [facility] Comment on above: Order Comment: Speci men Type: BLOOD SPECIMEN Ordering Facility: [facility] Address: [address] [place] [address] Performed By: #### 4 537-7 #### [facility] CLIA [id number] [address] [place] [address] [facility] [place] IgA SerPl-mCncon 12-26-2021 IgA [Mass/Vol] 126 mg/dL Normal 70-400 [facility] Comment on above: Order Comment: Speci men Type: BLOOD SPECIMEN Ordering Facility: [facility] Address: [address] [place] [address] Performed By: #### 2 458-8 #### [facility] CLIA [id number] [address] [place] [address] [place] bilirubin panel [Ma ss/Vol]on 12-26-2021 Bilirubin.conjugated [Mass/Vol] mg/dL Normal <0.2 [facility] Comment on above: Order Comment: Speci men Type: BLOOD SPECIMEN Ordering Facility: [facility] Address: [address] [place] [address] Performed By: #### 5 0189-0 #### [facility] CLIA [id number] [address] [place] [address] [place] Bilirubin.indirect [Mass/Vol] mg/dL Normal <1.4 [facility] Comment on above: Order Comment: Speci men Type: BLOOD SPECIMEN Ordering Facility: [facility] Address: [address] [place] [address] Performed By: #### 5 0189-0 #### [facility] CLIA [id number] [address] [place] [address] [place] TSH SerPl-aCncon 12-26-2021 TSH Qn 1.490 m[IU]/L Normal 0.270-4.200 [facility] Comment on above: Order Comment: Speci men Type: BLOOD SPECIMEN Ordering Facility: [facility] Address: [address] [place] [address] Performed By: #### 1 798-8, 88634-1, 3016-3 #### [facility] CLIA [id number] [address] [place] [address] [place] [facility] CNOVon 12-02-2021 CNOV Office Visit (LAURA) DIOR CARVAJAL ([id number]) 1965 F Date Time Provider Department 12/02/21 [...] history and updated the Histories section of [employer]. Pt has history of chronic arthritis She takes tramadol bid for the pain She states this is not quite enough, but she does not want to become addicted to the medication She admits she will never be pain free Pain today is 4/10. Pain at its worst is 9/10 Pain is mostly in her neck She will see GI in [place] on 12/13 She has a history of [...] No wheez (more content not included)... Normal [facility] SCREENINGon 06-22-2020 [facility] SCREENING Final Report DATE OF EXAM: Jun 22 2020 11:05AM LDW [id number] - [facility] SCREENING / PROCEDURE REASON: Encounter for screening mammogram for malignant neoplasm of breast Physician Interpretation #[id number] - [facility] SCREENING BILATERAL DIGITAL SCREENING MAMMOGRAM WITH CAD: 06/22/2020 HISTORY: / Screening Mammogram-Patient reports NO symptoms. RESULT: TECHNIQUE: The study was acquired using full field digital technology and interpreted from soft copy. Current study was also evaluated with a Computer Aided Detection (CAD). Comparison is made to exams dated: 06/05/2019 mammogram, 05/23/2018 mammogram, 05/17/2017 mammogram, 05/03/2017 mammogram, 01/19/2016 mammogram, and 01/06/2016 mammogram - [facility]. The tissue of both breasts is heterogeneously dense. This may lower the sensitivity of mammography. No significant masses, calcifications, or other findings are seen in either breast. There has been no significant interval change. IMPRESSION: NEGATIVE There is no mammographic evidence of malignancy. A 1 year screening mammogram is recommended. Ricky morrison/penrad:06/22/2020 11:41:39 Retail Management Trainee(s): Justin Hopper (R)(M), [facility] letter sent: Normal over 40 [...] Health, Family Medicine, and Medical/Surgical Oncology, the [facility] has carefully reviewed the data and [...] their providers when to stop screening mammograms. Allocations Clerk: Zara Transcribe Date/Time: Jun 22 2020 10:34A Dictated by : RICKY OROPEZA MD This examination was interpreted and the report reviewed and electronically signed by: RICKY OROPEZA MD on Jun 22 2020 11:41AM EST Normal [facility] Vital Signs Date Time Vital Sign Value Performing Clinician Facility 11-05-2024 10:03-0400 Body temperature 97.59 [degF] Mini Whyte MD Work Phone: [facility] 11-05-2024 10:03-0400 Diastolic blood pressure 54 mm[Hg] Mini Whyte MD Work Phone: [facility] 11-05-2024 10:03-0400 Heart rate 67 /min Mini Whyte MD Work Phone: [facility] 11-05-2024 10:03-0400 Respiratory rate 17 /min Mini Whyte MD Work Phone: [facility] 11-05-2024 10:03-0400 SaO2% (BldA) [Mass fraction] 97 % Mini Whyte MD Work Phone: [facility] 11-05-2024 10:03-0400 Systolic blood pressure 104 mm[Hg] Mini Whyte MD Work Phone: [facility] 07-31-2024 09:19-0400 Diastolic blood pressure 58 mm[Hg] Mini Whyte MD Work Phone: [facility] Comment on above: notified 07-31-2024 09:19-0400 Systolic blood pressure 81 mm[Hg] Mini Whyte MD Work Phone: [facility] Comment on above: notified 07-31-2024 09:14-0400 Body temperature 98.2 [degF] Mini Whyte MD Work Phone: [facility] 07-31-2024 09:14-0400 Heart rate 59 /min Mini Whyte MD Work Phone: [facility] Comment on above: notified 07-31-2024 09:14-0400 Respiratory rate 17 /min Mini Whyte MD Work Phone: [facility] 07-31-2024 09:14-0400 SaO2% (BldA) [Mass fraction] 96 % Mini Whyte MD Work Phone: [facility] 05-26-2024 14:38-0500 Diastolic blood pressure 50 mm[Hg] Dior Anguiano MD Work Phone: [facility] 05-26-2024 14:38-0500 Heart rate 64 /min Dior Anguiano MD Work Phone: [facility] 05-26-2024 14:38-0500 SaO2% (BldA) [Mass fraction] 99 % Dior Anguiano MD Work Phone: [facility] 05-26-2024 14:38-0500 Systolic blood pressure 107 mm[Hg] Dior Anguiano MD Work Phone: [facility] 05-26-2024 13:23-0500 Body temperature 97.81 [degF] Mini Whyte MD Work Phone: [facility] 05-26-2024 13:23-0500 Diastolic blood pressure 50 mm[Hg] Mini Whyte MD Work Phone: [facility] 05-26-2024 13:23-0500 Heart rate 64 /min Mini Whyte MD Work Phone: [facility] 05-26-2024 13:23-0500 Respiratory rate 17 /min Mini Whyte MD Work Phone: [facility] 05-26-2024 13:23-0500 SaO2% (BldA) [Mass fraction] 99 % Mini Whyte MD Work Phone: [facility] 05-26-2024 13:23-0500 Systolic blood pressure 107 mm[Hg] Mini Whyte MD Work Phone: [facility] 02-28-2024 14:51-0500 Body temperature 98.01 [degF] Mini Whyte MD Work Phone: [facility] 02-28-2024 14:51-0500 Diastolic blood pressure 39 mm[Hg] Mini Whyte MD Work Phone: [facility] Comment on above: md notified 02-28-2024 14:51-0500 Heart rate 71 /min Mini Whyte MD Work Phone: [facility] 02-28-2024 14:51-0500 Respiratory rate 17 /min Mini Whyte MD Work Phone: [facility] 02-28-2024 14:51-0500 SaO2% (BldA) [Mass fraction] 98 % Mini Whyte MD Work Phone: [facility] 02-28-2024 14:51-0500 Systolic blood pressure 107 mm[Hg] Mini Whyte MD Work Phone: [facility] Comment on above: notified 02-10-2024 20:22-0500 Body temperature 97.81 [degF] Kyle Lane APRN.CAD DESIGN ENGINEER Work Phone: [facility] 02-10-2024 20:22-0500 Diastolic blood pressure 61 mm[Hg] Kyle Lane APRN.CAD DESIGN ENGINEER Work Phone: [facility] 02-10-2024 20:22-0500 Heart rate 78 /min Kyle Lane APRN.CAD DESIGN ENGINEER Work Phone: [facility] 02-10-2024 20:22-0500 Respiratory rate 18 /min Kyle Lane APRN.CAD DESIGN ENGINEER Work Phone: [facility] 02-10-2024 20:22-0500 SaO2% (BldA) [Mass fraction] 97 % Kyle Lane APRN.CAD DESIGN ENGINEER Work Phone: [facility] 02-10-2024 20:22-0500 Systolic blood pressure 115 mm[Hg] Kyle Lane APRN.CAD DESIGN ENGINEER Work Phone: [facility] 02-07-2024 11:34-0500 Body temperature 98.49 [degF] Hayder Smitha DPM Work Phone: [facility] 02-07-2024 11:34-0500 Diastolic blood pressure 70 mm[Hg] Hayder Smitha DPM Work Phone: [facility] 02-07-2024 11:34-0500 Heart rate 74 /min Hayder Smitha DPM Work Phone: [facility] 02-07-2024 11:34-0500 Respiratory rate 18 /min Hayder Smitha DPM Work Phone: [facility] 02-07-2024 11:34-0500 SaO2% (BldA) [Mass fraction] 98 % Hayder Smitha DPM Work Phone: [facility] 02-07-2024 11:34-0500 Systolic blood pressure 105 mm[Hg] Hayder Bone DPM Work Phone: [facility] 01-17-2024 10:22-0400 Body mass index (BMI) [Ratio] 29.14 kg/m2 Mini Whyte MD Work Phone: [facility] 01-17-2024 10:22-0400 Body temperature 98.2 [degF] Mini Whyte MD Work Phone: [facility] 01-17-2024 10:22-0400 Body weight 81.9 kg Mini Whyte MD Work Phone: [facility] 01-17-2024 10:22-0400 Diastolic blood pressure 49 mm[Hg] Mini Whyte MD Work Phone: [facility] Comment on above: provider made aware 01-17-2024 10:22-0400 Heart rate 68 /min Mini Whyte MD Work Phone: [facility] 01-17-2024 10:22-0400 Respiratory rate 20 /min Mini Whyte MD Work Phone: [facility] 01-17-2024 10:22-0400 SaO2% (BldA) [Mass fraction] 100 % Mini Whyte MD Work Phone: [facility] Comment on above: RA 01-17-2024 10:22-0400 Systolic blood pressure 104 mm[Hg] Mini Whyte MD Work Phone: [facility] Comment on above: provider made aware 01-14-2024 18:26-0400 Body temperature 97.2 [degF] Kyle Lane APRN.CAD DESIGN ENGINEER Work Phone: [facility] 01-14-2024 18:26-0400 Diastolic blood pressure 79 mm[Hg] Kyle Lane APRN.CAD DESIGN ENGINEER Work Phone: [facility] 01-14-2024 18:26-0400 Heart rate 77 /min Kyle Lane APRN.CAD DESIGN ENGINEER Work Phone: [facility] 01-14-2024 18:26-0400 Respiratory rate 18 /min Kyle Lane APRN.CAD DESIGN ENGINEER Work Phone: [facility] 01-14-2024 18:26-0400 SaO2% (BldA) [Mass fraction] 92 % Kyle Lane APRN.CAD DESIGN ENGINEER Work Phone: [facility] 01-14-2024 18:26-0400 Systolic blood pressure 127 mm[Hg] Kyle Lane APRN.CAD DESIGN ENGINEER Work Phone: [facility] 12-06-2023 11:16-0400 Body temperature 98.49 [degF] Hayder Smitha DPM Work Phone: [facility] 12-06-2023 11:16-0400 Diastolic blood pressure 70 mm[Hg] Hayder Smitha DPM Work Phone: [facility] 12-06-2023 11:16-0400 Heart rate 77 /min Hayder Smitha DPM Work Phone: [facility] 12-06-2023 11:16-0400 Respiratory rate 18 /min Hayder Smitha DPM Work Phone: [facility] 12-06-2023 11:16-0400 SaO2% (BldA) [Mass fraction] 99 % Hayder Smitha DPM Work Phone: [facility] 12-06-2023 11:16-0400 Systolic blood pressure 122 mm[Hg] Hayder Smitha DPM Work Phone: [facility] 10-04-2023 14:22-0400 Body temperature 98.4 [degF] Hayder Smitha DPM Work Phone: [facility] 10-04-2023 14:22-0400 Diastolic blood pressure 70 mm[Hg] Hayder Smitha DPM Work Phone: [facility] 10-04-2023 14:22-0400 Heart rate 72 /min Hayder Smitha DPM Work Phone: [facility] 10-04-2023 14:22-0400 Respiratory rate 18 /min Hayder Smitha DPM Work Phone: [facility] 10-04-2023 14:22-0400 SaO2% (BldA) [Mass fraction] 99 % Hayder Smitha DPM Work Phone: [facility] 10-04-2023 14:22-0400 Systolic blood pressure 118 mm[Hg] Hayder Smitha DPM Work Phone: [facility] 07-26-2023 19:19-0400 Body temperature 98.4 [degF] Hayder Smitha DPM Work Phone: [facility] 07-26-2023 19:19-0400 Diastolic blood pressure 70 mm[Hg] Hayder Smitha DPM Work Phone: [facility] 07-26-2023 19:19-0400 Heart rate 78 /min Hayder Smitha DPM Work Phone: [facility] 07-26-2023 19:19-0400 Respiratory rate 18 /min Hayder Smitha DPM Work Phone: [facility] 07-26-2023 19:19-0400 SaO2% (BldA) [Mass fraction] 99 % Hayder Smitha DPM Work Phone: [facility] 07-26-2023 19:19-0400 Systolic blood pressure 117 mm[Hg] Hayder Smitha DPM Work Phone: [facility] 05-24-2023 17:38-0500 Body temperature 97 [degF] Hayder Smitha DPM Work Phone: [facility] 05-24-2023 17:38-0500 Diastolic blood pressure 70 mm[Hg] Hayder Smitha DPM Work Phone: [facility] 05-24-2023 17:38-0500 Heart rate 70 /min Hayder Smitha DPM Work Phone: [facility] 05-24-2023 17:38-0500 Respiratory rate 18 /min Hayder Smitha DPM Work Phone: [facility] 05-24-2023 17:38-0500 SaO2% (BldA) [Mass fraction] 99 % Hayder Smitha DPM Work Phone: [facility] 05-24-2023 17:38-0500 Systolic blood pressure 115 mm[Hg] Hayder Smitha DPM Work Phone: [facility] 11-02-2022 09:24-0400 Body temperature 97.81 [degF] Hayder Smitha DPM Work Phone: [facility] 11-02-2022 09:24-0400 Diastolic blood pressure 70 mm[Hg] Hayder Smitha DPM Work Phone: [facility] 11-02-2022 09:24-0400 Heart rate 70 /min Hayder Smitha DPM Work Phone: [facility] 11-02-2022 09:24-0400 Respiratory rate 18 /min Hayder Smitha DPM Work Phone: [facility] 11-02-2022 09:24-0400 SaO2% (BldA) [Mass fraction] 99 % Hayder Smitha DPM Work Phone: [facility] 11-02-2022 09:24-0400 Systolic blood pressure 110 mm[Hg] Hayder Smitha DPM Work Phone: [facility] 08-24-2022 15:31-0400 Body temperature 97.5 [degF] Hayder Smitha DPM Work Phone: [facility] 08-24-2022 15:31-0400 Diastolic blood pressure 70 mm[Hg] Hayder Smitha DPM Work Phone: [facility] 08-24-2022 15:31-0400 Heart rate 77 /min Hayder Smitha DPM Work Phone: [facility] 08-24-2022 15:31-0400 Respiratory rate 17 /min Hayder Smitha DPM Work Phone: [facility] 08-24-2022 15:31-0400 SaO2% (BldA) [Mass fraction] 99 % Hayder Smitha DPM Work Phone: [facility] 08-24-2022 15:31-0400 Systolic blood pressure 110 mm[Hg] Hayder Bone DPM Work Phone: [facility] 05-25-2022 11:07-0500 Body height 167.6 cm Leela Sheets DO Work Phone: [facility] 05-25-2022 11:07-0500 Body temperature 98.1 [degF] Leela Sheets DO Work Phone: [facility] 05-25-2022 11:07-0500 Body weight 79.83 kg Leela Sheets DO Work Phone: [facility] 05-25-2022 11:07-0500 Diastolic blood pressure 70 mm[Hg] Leela Sheets DO Work Phone: [facility] 05-25-2022 11:07-0500 Heart rate 87 /min Leela Sheets DO Work Phone: [facility] 05-25-2022 11:07-0500 SaO2% (BldA) [Mass fraction] 93 % Leela Sheets DO Work Phone: [facility] 05-25-2022 11:07-0500 Systolic blood pressure 110 mm[Hg] Leela Sheets DO Work Phone: [facility] 03-29-2022 10:35-0500 Body height 167.6 cm Elise Coyner BRUSH OPERATOR.CAD DESIGN ENGINEER Work Phone: [facility] 03-29-2022 10:35-0500 Body weight 79.38 kg Elise Coyner BRUSH OPERATOR.CAD DESIGN ENGINEER Work Phone: [facility] 02-24-2022 10:51-0500 Body height 167.6 cm Leela Sheets DO Work Phone: [facility] 02-24-2022 10:51-0500 Body temperature 97.81 [degF] Leela Sheets DO Work Phone: [facility] 02-24-2022 10:51-0500 Body weight 80.74 kg Leela Sheets DO Work Phone: [facility] 02-24-2022 10:51-0500 Diastolic blood pressure 68 mm[Hg] Leela Sheets DO Work Phone: [facility] 02-24-2022 10:51-0500 Heart rate 74 /min Leela Sheets DO Work Phone: [facility] 02-24-2022 10:51-0500 Respiratory rate 16 /min Leela Sheets DO Work Phone: [facility] 02-24-2022 10:51-0500 SaO2% (BldA) [Mass fraction] 93 % Leela Sheets DO Work Phone: [facility] 02-24-2022 10:51-0500 Systolic blood pressure 118 mm[Hg] Leela Sheets DO Work Phone: [facility] Encounters Encounter Date Encounter Type Care Provider Facility Start: 01-31-2025 ambulatory Everett Hart ity:[facility] Start: 01-27-2025 ambulatory Everett Hart ity:[facility] Start: 12-02-[address] Everett Cantor MD -[facility] Start: 12-02-2024 End: 12-02-2024 ambulatory Josi Garcia Facility:[facility] Start: 11-19-2024 ambulatory Josi Gudla Facility:[facility] Start: 11-19-[address] Everett Cantor MD -[facility] Start: 11-18-2024 End: 11-18-[address] Josi Garcia MD -[facility] Start: 11-18-2024 End: 11-18-[address] Everett Cantor MD -[facility] Start: 11-18-2024 End: 11-18-2024 ambulatory Josi Garcia Facility:[facility] Start: 11-10-2024 End: 11-10-2024 Orders Only Mini Whyte MD Work Phone: [facility] Comment on above: Glioblastoma (HCC) ( Primary Dx) Start: 11-07-2024 End: 11-13-2024 Telephone encounter Mini Whyte MD Work Phone: [facility] Comment on above: MARYJANE 2-4 weeks MARYJANE 3 months Start: 11-06-2024 End: 11-06-2024 ambulatory LILLIE HORTON Facility:[facility] Start: 11-06-2024 End: 11-06-2024 Patient encounter procedure Lillie Horton MD Work Phone: [facility] Comment on above: 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); Spasticity; History of brain tumor; History of stroke Start: 11-05-2024 End: 11-05-2024 [facility] Start: 11-05-2024 End: 11-05-2024 Patient encounter procedure Mini Whyte MD Work Phone: [facility] Comment on above: Astrocytoma brain tu mor (HCC) (Primary Dx); Spasticity; Cognitive decline Start: 11-04-2024 ambulatory [facility] Facility:[facility] Start: 11-04-2024 End: 11-04-2024 Subsequent hospital visit by physician [employer] [facility] (I-Stat/1.5t) Work Phone: Radiology Comment on above: 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 Everett Cantor MD [facility] Start: 08-13-2024 End: 08-13-[address] Josi Garcia MD [facility] Work Phone: Start: 08-13-2024 End: 08-13-[address] Everett Cantor MD -[facility] Start: 08-13-[address] Everett Cantor MD -[facility] Start: 08-13-2024 End: 08-13-2024 ambulatory [facility] Facility:[facility] Start: 08-08-2024 End: 08-08-[address] Josi Garcia MD [facility] Work Phone: Start: 08-08-2024 End: 08-08-[address] Everett Cantor MD -[facility] Start: 08-07-2024 End: 08-08-2024 ambulatory [facility] Facility:[facility] Start: 08-07-[address] Josi Garcia MD -[facility] Start: 08-05-2024 End: 08-06-2024 Orders Only Mini Whyte MD Work Phone: [facility] Comment on above: Astrocytoma brain tu mor (HCC) (Primary Dx) MARYJANE 4 weeks Start: 07-31-2024 End: 07-31-2024 ambulatory MINI WHYTE Facility:[facility] Start: 07-31-2024 End: 07-31-2024 Patient encounter procedure Mini Whyte MD Work Phone: [facility] Comment on above: Spasticity (Primary Dx); Astrocytoma brain tumor (HCC) Start: 07-25-2024 End: 09-24-2024 Follow-up encounter Mini Whyte MD Work Phone: [facility] Start: 07-24-2024 ambulatory MINI WHYTE Facility:[facility] Start: 07-24-2024 End: 07-24-2024 Subsequent hospital visit by physician [employer] [facility] W[facility] (I-Stat/1.5t) Work Phone: Radiology Comment on above: 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] Start: 06-27-2024 End: 06-27-2024 Telephone encounter Mini Whyte MD Work Phone: Hematology/Oncology Comment on above: MARYJANE 07/2024 Start: 06-12-2024 End: 11-12-2024 Telephone encounter Mini Whyte MD Work Phone: [facility] Start: 06-09-2024 End: 06-09-2024 Telephone encounter Diane Siu BRUSH OPERATOR.CAD DESIGN ENGINEER Work Phone: [facility] Comment on above: Appointment Start: 05-28-2024 End: 05-28-2024 Orders Only Mini Whyte MD Work Phone: [facility] Comment on above: Anaplastic astrocyto ma (HCC) (Primary Dx) Start: 05-26-2024 End: 05-26-2024 ambulatory DIOR ANGUIANO Facility:[facility] Start: 05-26-2024 End: 05-26-2024 Office outpatient new [...] Telephone encounter Mini Whyte MD Work Phone: [facility] Comment on above: MARYJANE 3-4 weeks Sign up for My chart MAYRJANE 4 weeks Start: 05-26-2024 End: 05-26-2024 ambulatory MINI WHYTE Facility:[facility] Start: 05-26-2024 End: 05-26-2024 Patient encounter procedure Mini Whyte MD Work Phone: [facility] Comment on above: Cerebral infarction [...] Start: 05-26-2024 End: 05-26-2024 ambulatory MINI WHYTE Facility:[facility] Start: 05-26-2024 End: 05-26-2024 Subsequent hospital visit by physician [facility] Comment on above: Allergy to intraveno us contrast media [Z91.041] 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] Start: 05-15-2024 End: 05-15-2024 Telephone encounter Mini Whyte MD Work Phone: Hematology/Oncology Comment on above: Patient Update Start: 05-13-2024 End: 07-13-2024 Follow-up encounter Mini Whyte MD Work Phone: [facility] Start: 05-13-2024 End: 05-13-2024 Telephone encounter Mini Whyte MD Work Phone: [facility] Start: 05-12-2024 End: 05-26-2024 Telephone encounter Mini Whyte MD Work Phone: [facility] Comment on above: MARYJANE Add on for 05/26 Start: 05-09-2024 End: 05-09-2024 Telephone encounter Mini Whyte MD Work Phone: [facility] Start: 05-08-2024 End: 05-08-2024 Telephone encounter Mini Whyte MD Work Phone: [facility] Start: 05-08-2024 End: 05-09-2024 ambulatory Mini Whyte MD Work Phone: [facility] Comment on above: 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) (Primary Dx); Allergy to intravenous contrast media; Anaplastic astrocytoma (HCC); Mild cognitive impairment; Cognitive decline; Spondylosis of cervical joint; Injury of cervical spinal cord, sequela (HCC); H/O laminectomy Start: 05-08-2024 End: 05-09-2024 Telemedicine consultation with patient Mini Whyte MD Work Phone: [facility] Start: 05-07-2024 End: 05-07-2024 Orders Only Mini Whyte MD Work Phone: [facility] Comment on above: Brain tumor (HCC) (P rimary Dx) Start: 05-02-2024 End: 05-02-2024 Telephone encounter Mini Whyte MD Work Phone: Hematology/Oncology Comment on above: Images requested MRA /MRI Start: 04-29-2024 End: 04-29-[address] Josi Garcia MD [facility] Work Phone: Start: 04-29-2024 End: 04-29-[address] Josi Garcia MD -MRI - [facility] Work Phone: Start: 04-29-2024 End: 04-29-2024 ambulatory Josi Garcia Facility:[facility] Start: 04-11-2024 End: 04-11-2024 Telephone encounter Mini Whyte MD Work Phone: Hematology/Oncology Comment on above: Patient Update Start: 04-07-2024 ambulatory KYLE RAJAN Facility:[facility] Start: 04-01-2024 End: 04-01-2024 Telephone encounter Mini Whyte MD Work Phone: [facility] Comment on above: Confirm appt for 04/02 Start: 03-31-2024 End: 03-31-2024 Telephone encounter Mini Whyte MD Work Phone: [facility] Comment on above: 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 Josi Garcia MD -[facility] Start: 03-31-2024 End: 03-31-2024 ambulatory Josi CURRIE Facility:[facility] Start: 03-28-2024 ambulatory Josi CURRIE Facili ty:[facility] Start: 03-28-[address] Josi Garcia MD -[facility] Start: 03-27-2024 End: 03-27-[address] Josi Garcia MD -[facility] Start: 03-27-2024 End: 03-27-2024 ambulatory Josi CURRIE Facility:[facility] Start: 03-24-2024 End: 03-24-2024 ambulatory Gerda Dee RN Work Phone: [facility] Comment on above: Facility change to [facility] Start: 03-24-2024 End: 03-24-2024 Telephone encounter Mini Whyte MD Work Phone: [facility] Comment on above: MRA 04/02/24- facility aware Allergy to intraveno us contrast media; Anaplastic astrocytoma (HCC); Mild cognitive impairment; Cognitive decline Start: 03-20-2024 End: 03-20-2024 ambulatory Zora Flores APRN.CAD DESIGN ENGINEER Work Phone: [facility] Comment on above: Acute cystitis witho ut hematuria (Primary Dx) Start: 03-20-2024 End: 03-20-2024 Telemedicine consultation with patient Zora Flores APRN.CAD DESIGN ENGINEER Work Phone: [facility] Start: 03-18-2024 End: 03-18-2024 ambulatory Zora Flores APRN.CAD DESIGN ENGINEER Work Phone: [facility] Comment on above: Acute cystitis witho ut hematuria (Primary Dx) Start: 03-18-2024 End: 03-18-2024 Telemedicine consultation with patient Zora Flores APRN.CHRISTIANO Work Phone: [facility] Start: 03-14-2024 End: 03-14-2024 ambulatory Gerda Dee RN Work Phone: [facility] Comment on above: Pathology slides and records requested Path slides not avai lable Start: 03-10-2024 End: 03-11-2024 Telephone encounter Mini Whyte MD Work Phone: [facility] Comment on above: Orders (Premedicatio n for contrast allergy) Start: 03-05-2024 End: 03-10-2024 Orders Only Mini Whyte MD Work Phone: [facility] Comment on above: Allergy to intraveno us contrast media; Anaplastic astrocytoma (HCC); Mild cognitive impairment; Cognitive decline Future Appointment ( New Patient [place] Any) Start: 03-04-2024 End: 04-08-2024 Orders Only Mini Whyte MD Work Phone: Hematology/Oncology Comment on above: Astrocytoma brain tu mor (HCC) (Primary Dx) MARYJANE 2-3 weeks MARYJANE week of 05/26/24 Start: 03-04-2024 End: 03-06-2024 Patient encounter procedure Itri Joey Layn Work Phone: [facility] Start: 03-04-2024 End: 03-06-2024 Progress Note Itri A Odell Work Phone: [facility] Start: 02-28-2024 End: 02-28-2024 Orders Only Mini Whyte MD Work Phone: [facility] Comment on above: Anaplastic astrocyto [...] 02-18-2024 End: 02-18-2024 Orders Only Zora Flores APRN.CAD DESIGN ENGINEER Work Phone: [facility] Comment on above: Osteoarthritis invol ving multiple joints on both sides of body (Primary Dx) Start: 02-13-2024 End: 02-14-2024 ambulatory BINDU Thomas CARMEL Facility:[facility] Start: 02-10-2024 End: 02-10-[address] JESSE.CAD DESIGN ENGINEER Work Phone: [facility] Comment on above: Fall, initial encoun ter (Primary Dx) Start: 02-10-2024 End: 02-10-2024 Telemedicine consultation with patient Kyle Lane APRN.CAD DESIGN ENGINEER Work Phone: [facility] Start: 02-07-2024 End: 02-07-2024 Unlisted evaluation and management service Hayder Bone DPM Work Phone: [facility] London Campos [facility] Comment on above: Nail dystrophy (Prim josie Dx); Aspirin long-term use Start: 02-06-2024 End: 02-06-2024 Telephone encounter Mini Whyte MD Work Phone: [facility] Comment on above: Returning Patient's Call; Appointment Appointment confirma tion =facility updated Start: 01-24-2024 End: 01-24-2024 Refill Zora Flores APRN.CAD DESIGN ENGINEER Work Phone: [facility] Start: 01-23-2024 End: 01-23-2024 Orders Only Mini Whyte MD Work Phone: Hematology/Oncology Comment on above: Astrocytoma (HCC) (P rimary Dx) Start: 01-21-2024 End: 02-01-2024 Telephone encounter Mini Whyte MD Work Phone: [facility] Comment on above: MARYJANE week of 02/25/24 Appointment follow u p Start: 01-17-2024 End: 01-17-2024 Patient encounter procedure Mini Whyte MD Work Phone: [facility] Comment on above: Anaplastic astrocyto ma (HCC) (Primary Dx); Hemiparesis, unspecified hemiparesis etiology, unspecified laterality (HCC); Mild cognitive impairment; Cognitive decline Start: 01-15-2024 End: 01-15-2024 ambulatory Gerda Dee RN Work Phone: [facility] Comment on above: Chart prep/record re view Start: 01-14-2024 End: 01-14-[address] APRN.CAD DESIGN ENGINEER Work Phone: [facility] Comment on above: Fall, initial encoun ter (Primary Dx) Start: 01-14-2024 End: 01-14-2024 Telemedicine consultation with patient Kyle Lane APRN.CAD DESIGN ENGINEER Work Phone: [facility] Start: 01-08-2024 End: 01-08-2024 Telephone encounter Self [facility] Comment on above: Triage (Initial Call ) Start: 01-01-2024 End: 01-01-2024 ambulatory Zora Flores APRN.CAD DESIGN ENGINEER Work Phone: [facility] Comment on above: Foul smelling urine (Primary Dx); Recurrent UTI Start: 01-01-2024 End: 01-03-2024 Patient encounter procedure Macarena Bain Work Phone: [facility] Start: 01-01-2024 End: 01-03-2024 Progress Note Itrgustavo Bain Work Phone: [facility] Start: 01-01-2024 End: 01-01-2024 Telemedicine consultation with patient Zora Zacarias MOLINA.CAD DESIGN ENGINEER Work Phone: [facility] Start: 12-25-2023 End: 12-25-2023 Subsequent hospital visit by physician [facility] Radiology Ct Scan Start: 12-24-2023 End: 12-24-2023 Telephone encounter Johanny Quinn RN Radiology Ct Scan Comment on above: Results; Appointment Start: 12-06-2023 End: 12-06-2023 ambulatory Zora Flores APRN.CHRISTIANO Work Phone: [facility] Comment on above: Osteoarthritis of mu ltiple joints, unspecified osteoarthritis type (Primary Dx); Essential hypertension; Chronic cervical pain Start: 12-06-2023 End: 12-06-2023 Telemedicine consultation with patient Zora Flores APRN.CAD DESIGN ENGINEER Work Phone: [facility] Start: 12-06-2023 End: 12-10-2023 Unlisted evaluation and management service Hayder Bone DPM Work Phone: [facility] London Campos [facility] Comment on above: Nail dystrophy (Prim josie Dx); Aspirin long-term use Start: 11-29-2023 End: 11-29-2023 ambulatory Zora Flores APRN.CHRISTIANO Work Phone: [facility] Comment on above: Foul smelling urine (Primary Dx) Start: 11-29-2023 End: 11-29-2023 Telemedicine consultation with patient Zora Flores APRN.CHRISTIANO Work Phone: [facility] Start: 11-06-2023 ambulatory Zora Flores APRN.CHRISTIANO Work Phone: [facility] Comment on above: Leukocytosis, unspec ified type (Primary Dx); Confusion Start: 11-06-2023 Patient encounter procedure Itri Joey Layn Work Phone: [facility] Start: 11-06-2023 Progress Note Itri A Odell Work Phone: [facility] Start: 11-06-2023 Telemedicine consultation with patient Zora Flores APRN.CHRISTIANO Work Phone: [facility] Start: 10-11-2023 ambulatory Zora Flores APRN.CHRISTIANO Work Phone: [facility] Comment on above: Osteoarthritis of mu ltiple joints, unspecified osteoarthritis type (Primary Dx); Left hip pain; Chronic neck pain; Essential hypertension Start: 10-11-2023 Telemedicine consultation with patient Zora Flores APRN.CAD DESIGN ENGINEER Work Phone: [facility] Start: 10-04-2023 Unlisted evaluation and management service Hayder Bone DPM Work Phone: [facility] London Campos [facility] Comment on above: Nail dystrophy (Prim josie Dx); Aspirin long-term use Start: 09-11-2023 Patient encounter procedure Itri A Odell Work Phone: [facility] Start: 09-11-2023 Progress Note Itri A Odell Work Phone: [facility] Start: 08-28-2023 ambulatory Zorareza Flores APRN.CAD DESIGN ENGINEER Work Phone: [facility] Comment on above: Osteoarthritis of mu ltiple joints, unspecified osteoarthritis type (Primary Dx); Left hip pain Start: 08-28-2023 Telemedicine consultation with patient Zora Flores JESSE.CAD DESIGN ENGINEER Work Phone: [facility] Start: 08-16-2023 ambulatory Zora Zacarias MOLINA.CAD DESIGN ENGINEER Work Phone: [facility] Comment on above: Osteoarthritis of mu ltiple joints, unspecified osteoarthritis type (Primary Dx); Chronic neck pain; Essential hypertension Start: 08-16-2023 Telemedicine consultation with patient Zora Flores JESSE.CAD DESIGN ENGINEER Work Phone: [facility] Start: 07-26-2023 Unlisted evaluation and management service Hayder Bone DPM Work Phone: [facility] London Campos [facility] Comment on above: Nail dystrophy (Prim josie Dx); Aspirin long-term use Start: 07-24-2023 Refill Zora Zacarias MOLINA.CAD DESIGN ENGINEER Work Phone: [facility] Start: 06-27-2023 Patient encounter procedure Itri A Odell Work Phone: [facility] Start: 06-27-2023 Progress Note Itri A Odell Work Phone: [facility] Start: 06-19-2023 ambulatory Zora Zacarias MOLINA.CAD DESIGN ENGINEER Work Phone: [facility] Comment on above: Osteoarthritis of mu ltiple joints, unspecified osteoarthritis type (Primary Dx); Chronic neck pain; Essential hypertension Start: 06-19-2023 Telemedicine consultation with patient Zora Zacarias MOLINA.CAD DESIGN ENGINEER Work Phone: [facility] Start: 05-24-2023 Unlisted evaluation and management service Hayder MARIEM Work Phone: Dr[facility] London Campos [facility] Comment on above: Nail dystrophy (Prim josie Dx); Aspirin long-term use Start: 05-03-2023 Patient encounter procedure Itri A Odell Work Phone: [facility] Start: 05-03-2023 Progress Note Itri A Odell Work Phone: [facility] Start: 02-28-2023 Patient encounter procedure Itri A Odell Work Phone: [facility] Start: 02-28-2023 Progress Note Itri A Odell Work Phone: [facility] Start: 02-13-2023 ambulatory Zora Zacarias RUANON.CAD DESIGN ENGINEER Work Phone: [facility] Comment on above: Osteoarthritis of mu ltiple joints, unspecified osteoarthritis type (Primary Dx); Chronic neck pain; Essential hypertension Start: 02-13-2023 Telemedicine consultation with patient Zora Zacarias MOLINA.CAD DESIGN ENGINEER Work Phone: [facility] Start: 01-02-2023 Patient encounter procedure Itri A Odell Work Phone: [facility] Start: 01-02-2023 Progress Note Itri A Odell Work Phone: [facility] Start: 12-12-2022 ambulatory Zora Flores BRUSH OPERATOR.CAD DESIGN ENGINEER Work Phone: [facility] Comment on above: Osteoarthritis of mu ltiple joints, unspecified osteoarthritis type (Primary Dx); Chronic neck pain; Essential hypertension Start: 12-12-2022 Telemedicine consultation with patient Zora Flores JESSE.CAD DESIGN ENGINEER Work Phone: [facility] Start: 11-02-2022 Unlisted evaluation and management service Hayder MARIEM Work Phone: Dr[facility] London Campos [facility] Comment on above: Nail dystrophy (Prim josie Dx); Aspirin long-term use Start: 09-27-2022 Refill Zora Flores APRN.CAD DESIGN ENGINEER Work Phone: [facility] Start: 09-12-2022 ambulatory Zora Flores APRN.CAD DESIGN ENGINEER Work Phone: [facility] Comment on above: Osteoarthritis of mu ltiple joints, unspecified osteoarthritis type (Primary Dx); Essential hypertension; Chronic neck pain; Abnormal gait Start: 09-12-2022 Telemedicine consultation with patient Zora Flores APRN.CAD DESIGN ENGINEER Work Phone: [facility] Start: 09-07-2022 ambulatory Zora Flores APRN.CAD DESIGN ENGINEER Work Phone: [facility] Comment on above: Osteoarthritis of mu ltiple joints, unspecified osteoarthritis type (Primary Dx); Essential hypertension; Chronic neck pain; Abnormal gait OPENED IN ERROR (Iva riley Dx) Start: 09-07-2022 Telemedicine consultation with patient Zora Flores JESSE.CAD DESIGN ENGINEER Work Phone: [facility] Start: 08-29-2022 ambulatory Zora Flores APRN.CAD DESIGN ENGINEER Work Phone: [facility] Comment on above: Osteoarthritis of mu ltiple joints, unspecified osteoarthritis type (Primary Dx); Essential hypertension; Chronic neck pain; Abnormal gait Start: 08-29-2022 Telemedicine consultation with patient Zora Flores JESSE.CAD DESIGN ENGINEER Work Phone: [facility] Start: 08-28-2022 Refill Zora Flores APRN.CAD DESIGN ENGINEER Work Phone: [facility] Start: 08-25-2022 ambulatory Zora Flores APRN.CAD DESIGN ENGINEER Work Phone: [facility] Comment on above: Essential hypertensi on (Primary Dx); Abnormal gait; Chronic cervical pain Start: 08-25-2022 Telemedicine consultation with patient Zora Flores APRN.CAD DESIGN ENGINEER Work Phone: [facility] Start: 08-24-2022 Initial nursing faci lity care/day 25 minutes Hayder Bone DPM Work Phone: [facility] London Campos [facility] Comment on above: Pain due to onychomy cosis of toenail of right foot (Primary Dx); Pain due to onychomycosis of toenail of left foot; Aspirin long-term use Start: 08-23-2022 ambulatory Zora Flores BRUSH OPERATOR.CAD DESIGN ENGINEER Work Phone: [facility] Comment on above: Essential hypertensi on (Primary Dx); Abnormal gait; Chronic cervical pain Start: 08-23-2022 Telemedicine consultation with patient Zora Flores APRN.CAD DESIGN ENGINEER Work Phone: [facility] Start: 08-08-2022 ambulatory Zora Flores BRUSH OPERATOR.CAD DESIGN ENGINEER Work Phone: [facility] Comment on above: Essential hypertensi on (Primary Dx); Abnormal gait; Chronic cervical pain Start: 08-08-2022 Telemedicine consultation with patient Zora Flores APRN.CAD DESIGN ENGINEER Work Phone: [facility] Start: 08-07-2022 Patient encounter procedure Macarena Bain Work Phone: [facility] Start: 08-07-2022 Progress Note Macarena Bain Work Phone: [facility] Start: 08-04-2022 Telephone encounter Leela Mcclain Sheets DO Work Phone: [facility] Comment on above: Patient Question Start: 07-31-2022 Refill Leela Villalba ets DO Work Phone: [facility] Comment on above: Refill Request Start: 07-19-2022 Telephone encounter Riley Palmer MA [facility] Comment on above: Appointment Start: 07-13-2022 Refill Leela Villalba ets DO Work Phone: [facility] Comment on above: Refill Request Start: 06-30-2022 Refill Leela C She ets DO Work Phone: [facility] Comment on above: Refill Request Start: 05-31-2022 Refill Leela C She ets DO Work Phone: [facility] Comment on above: Refill Request Start: 05-25-2022 Telephone encounter Leela C Sheets DO Work Phone: [facility] Comment on above: Medication Problem Start: 05-25-2022 End: 05-25-2022 ambulatory LEELA C SHEETS Facility:[facility] Start: 05-25-2022 End: 05-25-2022 Patient encounter procedure Leela C Sheets DO Work Phone: [facility] Comment on above: Essential hypertensi on (Primary Dx); Chronic cervical pain; Grief; Smoker; Encounter for immunization Start: 05-22-2022 Refill Leela C She ets DO Work Phone: [facility] Comment on above: Refill Request Start: 05-19-2022 Refill Leela C She ets DO Work Phone: [facility] Comment on above: Refill Request Start: 04-21-2022 Refill Leela C She ets DO Work Phone: [facility] Comment on above: Refill Request Start: 04-12-2022 End: 04-12-2022 Patient encounter procedure Elise Heck APRN.CAD DESIGN ENGINEER Work Phone: Urology Comment on above: Overactive bladder ( Primary Dx); Urine retention; Frequent UTI; Atrophic vaginitis Start: 03-29-2022 End: 03-29-2022 Patient encounter procedure Elise Heck APRN.CAD DESIGN ENGINEER Work Phone: [facility]rology Comment on above: Urine retention (Iva riley Dx); Acute cystitis without hematuria; Urge incontinence Start: 03-24-2022 Telephone encounter Kelvin rodarte PA-C Work Phone: [facility]rology Comment on above: Results Start: 03-23-2022 Telephone encounter Jair Turcios MD Work Phone: Urology Comment on above: ER Follow up appt Start: 03-22-2022 ambulatory Riley Palmer MA [facility] Comment on above: ED OUTREACH (ED OUTR EACH/) Start: 03-20-2022 End: 03-21-2022 Emergency department patient visit LEELA C SHEETS Facility:[facility] Start: 03-14-2022 Refill Leela C She ets DO Work Phone: [facility] Comment on above: Refill Request Start: 02-24-2022 End: 02-24-2022 ambulatory LEELA C SHEETS Facility:[facility] Start: 02-24-2022 End: 02-24-2022 Patient encounter procedure Leela C Sheets DO Work Phone: [facility] Comment on above: Chronic cervical kalyan n (Primary Dx); Chronic abdominal pain; Smoker Start: 02-14-2022 Refill Leela C She ets DO Work Phone: [facility] Comment on above: Refill Request Start: 01-18-2022 ambulatory LEELA C JEVON Facil ity:[facility] Start: 01-18-2022 End: 01-18-2022 Subsequent hospital visit by physician [facility] Comment on above: Generalized abdomina l pain [R10.84] Start: 01-11-2022 Refill Leela C She ets DO Work Phone: [facility] Comment on above: Refill Request Start: 12-29-2021 Refill Leela C She ets DO Work Phone: [facility] Comment on above: Refill Request Start: 12-26-2021 End: 12-27-2021 ambulatory FERNANDO NIETO Facility:[facility] Start: 12-14-2021 Refill Leela C She ets DO Work Phone: [facility] Start: 12-02-2021 End: 12-02-2021 ambulatory LEELA C SHEETS Facility:[facility] Start: 11-24-2021 Refill Leela C She ets DO Work Phone: [facility] Comment on above: Refill Request Start: 11-11-2021 Refill Leela C She ets DO Work Phone: [facility] Comment on above: Refill Request Start: 10-11-2021 Refill Leela C She ets DO Work Phone: [facility] Comment on above: Refill Request Start: 09-29-2021 Refill Leela C She ets DO Work Phone: [facility] Comment on above: Refill Request Start: 09-27-2021 Refill Leela C She ets DO Work Phone: [facility] Comment on above: Refill Request Start: 09-14-2021 Refill Leela C She ets DO Work Phone: [facility] Start: 08-26-2021 End: 08-26-2021 ambulatory LEELA C SHEETS Facility:[facility] Start: 08-08-2021 Refill Leela C She ets DO Work Phone: [facility] Comment on above: Refill Request Start: 07-11-2021 Refill Leela C She ets DO Work Phone: [facility] Comment on above: Refill Request Start: 06-27-2021 Refill Leela C She ets DO Work Phone: [facility] Comment on above: Refill Request Start: 06-23-2021 Telephone encounter Orin hanley MD Work Phone: [facility] Comment on above: Results Procedures [...] BIVALENT BOOSTER VACCINE, AGE 12+ YR Leela Sarahi Sheets DO Work Phone: Start: 04-12-2022 Urnls dip stick/tabl et rgnt auto w/o microscopy Elise Heck BRUSH OPERATOR.CAD DESIGN ENGINEER Work Phone: Start: 06-23-2021 Lipid 1996 panel - S brendon or Plasma Zora Flores BRUSH OPERATOR.CAD DESIGN ENGINEER Work Phone: Start: 02-16-2021 Adult depression scr eening assessment Orin Luis MD Work Phone: Start: 06-22-2020 Mammography Orin henson MD Work Phone: Start: 05-05-2016 Colonoscopy Orin henson MD Work Phone: Plan of Treatment Date Care Activity Detail Author Start: 01-21-2039 RSV Vaccine (1 - 1-dose 75+ series) RSV Vaccine (1 - 1-dose 75+ series) [facility] Start: 01-21-2029 PNEUMOCOCCAL (3 - PPSV23 if available, else PCV20) PNEUMOCOCCAL (3 - PPSV23 if available, else PCV20) [facility] Start: 01-21-2029 PNEUMOCOCCAL (3 - PPSV23 or PCV20) PNEUMOCOCCAL (3 - PPSV23 or PCV20) [facility] Start: 01-21-2029 Pneumococcal vaccination [facility] Start: 02-20-2028 Urine microalbumin profile [facility] Start: 08-26-2026 Pneumococcal Vaccine: 50+ (3 of 3 - PCV20 or PCV21) Pneumococcal Vaccine: 50+ (3 of 3 - PCV20 or PCV21) [facility] Start: 06-23-2026 Lipid 1996 panel - Serum or Plasma Lipid Screening [facility] Start: 06-23-2026 Lipid panel Lipid Screening [facility] Start: 06-23-2026 LIPID SCREEN LIPID SCREEN [facility] Start: 05-05-2026 Colonoscopy COLONOSCOPY [facility] Start: 05-05-2026 COLORECTAL CANCER SCREENING COLORECTAL CANCER SCREENING [facility] Start: 05-05-2026 Screening for malignant neoplasm of colon [facility] Start: 07-31-2025 BP Controlled (<130/80) BP Controlled (<130/80) [facility] Start: 05-26-2025 BP Controlled (<130/80) BP Controlled (<130/80) [facility] Start: 03-20-2025 DIABETES SCREEN DIABETES SCREEN [facility] Start: 03-20-2025 Diabetes Screening Diabetes Screening [facility] Start: 03-09-2025 End: 12-05-2025 MR Brain WO and W contrast IV MRI BRAIN WO/W IVCON Radiology Routine Astrocytoma brain tumor (HCC) Spasticity Cognitive decline Expected: 03/09/2025, Expires: 12/05/2025 [facility] Work Phone: Comment on above: Expected: 03/09/2025, Expires: Start: 02-27-2025 BP Controlled (<130/80) BP Controlled (<130/80) [facility] Start: 02-09-2025 BP Controlled (<130/80) BP Controlled (<130/80) [facility] Start: 02-06-2025 BP Controlled (<130/80) BP Controlled (<130/80) [facility] Start: 2025 End: 2025 Patient encounter procedure 2025 9:45 AM EDT Office Visit [facility] [address] [place] [address] Lillie Horton MD [address], [place] [id number] Spasticity follow up [facility] [facility] Comment on above: Spasticity follow up Start: 01-16-2025 BP Controlled (<130/80) BP Controlled (<130/80) [facility] Start: 01-13-2025 BP Controlled (<130/80) BP Controlled (<130/80) [facility] Start: 12-26-2024 DIABETES SCREEN DIABETES SCREEN [facility] Start: 12-05-2024 BP Controlled (<130/80) BP Controlled (<130/80) [facility] Start: 11-24-2024 Influenza vaccination [facility] Start: 11-06-2024 End: 11-06-2024 Patient encounter procedure 11/06/2024 1:00 PM EDT Office Visit [facility] [address] [place] [address] Lillie Horton MD [address] [place] [address] Spasticity [facility] Comment on above: Spasticity Start: 11-05-2024 End: 11-05-2024 Patient encounter procedure 11/05/2024 9:30 AM EDT Office Visit [facility] [address] [place] [address] Mini Whyte MD [address] [place] [address] Scheduling Request - Established Patient [facility] Comment on above: Scheduling Request - Established Patient Start: 11-04-2024 End: 11-04-2024 Patient encounter procedure 11/04/2024 8:30 AM EDT Appointment Radiology [address] [place], [place] [id number] Scheduling Request - Established Patient Radiology Comment on above: Scheduling Request - Established Patient Start: 10-03-2024 BP Controlled (<130/80) BP Controlled (<130/80) [facility] Start: 09-04-2024 End: 09-04-2024 Patient encounter procedure 09/04/2024 12:45 PM EDT Office Visit Neurology [address] [address] Casper Haynes MD [address] [place] [address] [facility] Comment on above: [facility] Start: 07-31-2024 End: 07-31-2024 Patient encounter procedure 07/31/2024 9:00 AM EDT Office Visit [facility] [address] [place] [address] Mini Whyte MD [address] [place] [address] Scheduling Request - Established Patient [facility] Comment on above: Scheduling Request - Established Patient Start: 07-25-2024 BP Controlled (<130/80) BP Controlled (<130/80) [facility] Start: 07-24-2024 End: 07-24-2024 Patient encounter procedure 07/24/2024 8:00 AM EDT Appointment Radiology [address] [facility] [place] [id number] Scheduling Request - Established Patient Radiology Comment on above: Scheduling Request - Established Patient Start: 06-23-2024 DIABETES SCREEN DIABETES SCREEN [facility] Start: 06-17-2024 End: 06-17-2024 Patient encounter procedure 06/17/2024 11:00 AM EDT Office Visit Rehab Medicine [address] [place] [address] Ibrahima Clemens MD [address] [place] [address] Injury of cervical spinal cord, 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] [facility] Comment on above: Injury of cervical spinal cord, 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] Start: 06-09-2024 End: 06-09-2024 Patient encounter procedure 06/09/2024 1:20 PM EDT Office Visit [facility] [address] [address] Diane Siu, BRUSH OPERATOR.CAD DESIGN ENGINEER [address] [place] [address] spasticity [facility] Comment on above: spasticity Start: 06-04-2024 End: 06-04-2024 Patient encounter procedure 06/04/2024 1:00 PM EDT Office Visit [facility] [address] [place] [address] Scott Dumont MD [address] [place] [address] Time Frame: 2-4 weeks or best [facility] Comment on above: Time Frame: 2-4 weeks or best Start: 05-26-2024 End: 05-26-2024 Patient encounter procedure 05/26/2024 2:30 PM EST Office Visit [facility] [address] [place] [address] Dior Anguiano MD [address] [facility] [id number] [place] [address] Carotid Stenosis [facility] Comment on above: Carotid Stenosis Start: 05-26-2024 End: 06-02-2025 LIPID PANEL, NONFASTING LIPID PANEL, NONFASTING Lab Routine Hyperlipidemia, unspecified hyperlipidemia type Expected: 05/26/2024, Expires: 08/25/2024 [facility] Comment on above: Expected: 05/26/2024, Expires: Start: 05-26-2024 End: 05-26-2024 Patient encounter procedure 05/26/2024 11:30 AM EST Office Visit [facility] [address] [place] [address] Mini Whyte MD [address] [address] Time Frame: week of 05/26 [facility] Comment on above: Time Frame: week of 05/26 Start: 05-26-2024 End: 05-26-2024 Patient encounter procedure MRI Q Comment on above: Diagnosis: 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] XR CERVICAL 2V FLEX/ EXT Start: 05-23-2024 BP Controlled (<130/80) BP Controlled (<130/80) [facility] Start: 05-08-2024 End: 05-08-2024 ambulatory 05/08/2024 11:00 AM EST [facility] [address] [place] [address] Mini Whyte MD [address] [address] MRA/ MRI results- patient is in a facility [facility] Comment on above: MRA/ MRI results- patient is in a facili ty Start: 04-07-2024 End: 04-07-2024 Patient encounter procedure 04/07/2024 1:30 PM EST Office Visit [facility] [address] [place] [address] Mini Whyte MD [address] [address] Time Frame: next available [facility] Comment on above: Time Frame: next available Start: 04-02-2024 End: 04-02-2024 Patient encounter procedure [facility] Comment on above: Diagnosis: Allergy to intravenous contra st media [Z91.041] Start: 04-02-2024 End: 04-02-2024 Patient encounter procedure 04/02/2024 1:00 AM EST Appointment [facility] [address] [place] [address] Diagnosis: Allergy to intravenous contrast media [Z91.041] [facility] Comment on above: Diagnosis: Allergy to intravenous contra st media [Z91.041] Start: 03-26-2024 Medicare Advantage Annual Wellness Visit Medicare Advantage Annual Wellness Visit [facility] Start: 03-22-2024 BP Controlled (<130/80) BP Controlled (<130/80) [facility] Start: 02-28-2024 End: 02-28-2024 Patient encounter procedure 02/28/2024 1:30 PM EST Office Visit [facility] [address] [place] [address] Mini Whyte MD [address] [address] Scheduling Request - Established Patient [facility] Comment on above: Scheduling Request - Established Patient Start: 02-28-2024 End: 02-28-2024 Patient encounter procedure 02/28/2024 11:40 AM EST Appointment MRI Q [address] [address] Scheduling Request - Established Patient MRI Q Comment on above: Scheduling Request - Established Patient Start: 01-17-2024 End: 01-17-2024 Patient encounter procedure 01/17/2024 10:00 AM EDT Office Visit [facility] [address] [place] [address] Mini hWyte MD [address] [place] [address] Time Frame: First available [facility] Comment on above: Time Frame: First available Start: 12-25-2023 End: 12-25-2023 Patient encounter procedure Radiology Ct Scan Comment on above: outside order scanned into patient's melissa rt Pt has contrast mariely rgy listed, in a nursing facility. Premedicating??-SCP 12/19 Start: 11-25-2023 Covid-19 Vaccine () Covid-19 Vaccine () [facility] Start: 11-25-2023 Covid-19 Vaccine () Covid-19 Vaccine () [facility] Start: 11-25-2023 Influenza vaccination [facility] Start: 11-03-2023 BP CONTROLLED (<130/80) BP CONTROLLED (<130/80) [facility] Start: 08-25-2023 BP CONTROLLED (<130/80) BP CONTROLLED (<130/80) [facility] Start: 05-26-2023 ANNUAL PCP TEAM CHRONIC DISEASE VISIT ANNUAL PCP TEAM CHRONIC DISEASE VISIT [facility] Start: 05-26-2023 BP CONTROLLED (<130/80) BP CONTROLLED (<130/80) [facility] Start: 03-26-2023 Behavioral Health Screening Behavioral Health Screening [facility] Start: 03-26-2023 Depression Assessment Depression Assessment [facility] Start: 03-25-2023 DEPRESSION ASSESSMENT DEPRESSION ASSESSMENT [facility] Comment on above: Postponed from 03/26/2022 (Declined at t his time) Start: 02-24-2023 ANNUAL PCP TEAM CHRONIC DISEASE VISIT ANNUAL PCP TEAM CHRONIC DISEASE VISIT [facility] Start: 02-24-2023 BP CONTROLLED (<130/80) BP CONTROLLED (<130/80) [facility] Start: 12-02-2022 ANNUAL PCP TEAM CHRONIC DISEASE VISIT ANNUAL PCP TEAM CHRONIC DISEASE VISIT [facility] Start: 12-02-2022 BP CONTROLLED (<130/80) BP CONTROLLED (<130/80) [facility] Start: 11-24-2022 Covid-19 Vaccine () Covid-19 Vaccine () [facility] Start: 11-24-2022 Influenza vaccination [facility] Start: 08-26-2022 ANNUAL PCP TEAM CHRONIC DISEASE VISIT ANNUAL PCP TEAM CHRONIC DISEASE VISIT [facility] Start: 08-26-2022 BP CONTROLLED (<130/80) BP CONTROLLED (<130/80) [facility] Start: 07-13-2022 End: 09-12-2022 Lipid 1996 panel - Serum or Plasma LIPID PANEL BASIC Lab Routine Pure hypercholesterolemia Expected: 07/13/2022, Expires: 09/12/2022 [facility] Work Phone: Comment on above: Expected: 07/13/2022, Expires: 3 Start: 05-26-2022 ANNUAL PCP TEAM CHRONIC DISEASE VISIT ANNUAL PCP TEAM CHRONIC DISEASE VISIT [facility] Start: 05-26-2022 BP CONTROLLED (<130/80) BP CONTROLLED (<130/80) [facility] Start: 03-26-2022 DEPRESSION ASSESSMENT DEPRESSION ASSESSMENT [facility] Start: 02-16-2022 Adult depression screening assessment DEPRESSION SCREENING [facility] Start: 11-24-2021 Influenza vaccination INFLUENZA (#1) [facility] Start: 10-13-2021 COVID-19 VACCINE (5 - Booster for Pfizer series) COVID-19 VACCINE (5 - Booster for Pfizer series) [facility] Start: 06-22-2021 Mammography [facility] Start: 06-22-2021 Screening for malignant neoplasm of breast Mammogram Screening [facility] Start: 05-11-2021 COVID-19 VACCINE (4 - Booster for Pfizer series) COVID-19 VACCINE (4 - Booster for Pfizer series) [facility] Start: 03-26-2021 DEPRESSION ASSESSMENT DEPRESSION ASSESSMENT [facility] Start: 01-21-2009 COLOGUARD (FIT-DNA) COLOGUARD (FIT-DNA) [facility] Start: 01-21-[address] COLONOGRAPHY [facility] Start: 01-21-2009 FECAL OCCULT BLOOD FECAL OCCULT BLOOD [facility] Start: 01-21-2009 Screening for malignant neoplasm of colon [facility] Start: 01-21-2009 SIGMOIDOSCOPY SIGMOIDOSCOPY [facility] Start: 01-21-1982 Anxiety Screening Anxiety Screening [facility] Start: 01-21-1982 Depression Screening Depression Screening [facility] Start: 1965 HEPATITIS B (1 of 3 - 3-dose series) HEPATITIS B (1 of 3 - 3-dose series) [facility] Start: 1965 Hepatitis B Vaccine (1 of 3 - 3-dose series) Hepatitis B Vaccine (1 of 3 - 3-dose series) [facility] BLADDER SCAN BLADDER SCAN Pro cedures Routine Urine retention Ordered: 04/12/2022 [facility] Work Phone: Comment on above: Ordered: 04/12/2022 Debridement nail any method 1-5 DEBRIDEMENT OF NAIL(S), 1-5 Procedures Routine Pain due to onychomycosis of toenail of right foot Pain due to onychomycosis of toenail of left foot Aspirin long-term use Ordered: 08/24/[address] LONDON CAMPOS [facility] Work Phone: Comment on above: Ordered: 08/24/2022 Debridement nail any method 1-5 DEBRIDEMENT OF NAIL(S), 1-5 Procedures Routine Nail dystrophy Aspirin long-term use Ordered: 11/03/[address] LONDON CAMPOS [facility] Work Phone: Comment on above: Ordered: 11/03/2022 Debridement nail any method 1-5 DEBRIDEMENT OF NAIL(S), 1-5 Procedures Routine Nail dystrophy Aspirin long-term use Ordered: 05/25/[address] LONDON CAMPOS [facility] Work Phone: Comment on above: Ordered: 05/25/2023 Debridement nail any method 1-5 DEBRIDEMENT OF NAIL(S), 1-5 Procedures Routine Nail dystrophy Aspirin long-term use Ordered: 07/29/[address] LONDON CAMPOS [facility] Work Phone: Comment on above: Ordered: 07/29/2023 Debridement nail any method 1-5 DEBRIDEMENT OF NAIL(S), 1-5 Procedures Routine Nail dystrophy Aspirin long-term use Ordered: 10/07/[address] LONDON CAMPOS [facility] Work Phone: Comment on above: Ordered: 10/07/2023 Debridement nail any method 1-5 DEBRIDEMENT OF NAIL(S), 1-5 Procedures Routine Nail dystrophy Aspirin long-term use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 26, 2024 11:11 AM documented in this encounter [facility] 05-26-2024 Note HNO ID: [id number] Author: LEANNA MASTERSON RN Service: Radiology Author [...] DATE: May 26, 2024 TIME: 9:50 AM [facility] 05-26-2024 Note HNO ID: [id number] Author: JOHANNY RENTERIA RT(R) Service: Radiology Author [...] PATIENT PRESENTS WITH AN IMPLANTABLE OR ATTACHED CUSTOMER OPERATIONS REPRESENTATIVE: No RADIOLOGY DEPARTMENT: MR; Exam(s) Completed: Head: Routine Brain with Perfusion [place] MRA PERIPHERAL IV DATA: Site assessment: Clean,Dry and Intact, Site disposition Left in for next appointment SIGNED BY: Johanny Renteria RT(R) May 26, 2024 11:11 AM [facility] 05-15-2024 Telephone encounter Note Called Jessa to inform them of the patient's appointments. Called and spoke with patient's sister, Katie as well. [facility] Work Phone: 05-15-2024 Miscellaneous Notes Called Jessa to inform them of the patient's appointments. Called and spoke with patient's sister, Katie as well. documented in this encounter [facility] 05-13-2024 Progress note Formatting of t his note might be different from the original. I reviewed the images results with Katie the patient's sister and MPOA. I encouraged Katie, to sign in, for MyChart. Mini Whyte MD [facility] 05-13-2024 Progress note Formatting of t his note might be different from the original. I reviewed the images results with Katie the patient's sister and MPOA. I encouraged Katie, to sign in, for MyChart. Mini Whyte MD [facility] 05-13-2024 Miscellaneous Notes I reviewed the images results with Katie the patient's sister and MPOA. I encouraged Katie, to sign in, for MyChart. Mini Whyte MD documented in this encounter [facility] 05-13-2024 Telephone encounter Note Summary: Telephone [...] Results MR-MRA Neck without Contrast - OVERREAD (Acc#[id number] [facility]) (Order [id number]) Patient Info Patient Name Sex Dior Artis ([id number]) Female 1965 In Basket Actions Done Result [...] be discussed: Tumor Board discussion Images Reviewed: Lqqf-tp-neipfu MR Angiogram of the Neck and MR [...] progression of cervical spondylosis from 2010 exam. Allocations Clerk: [facility] Transcribe Date/Time: May 13 2024 8:25A [...] be discussed: Tumor Board discussion Images Reviewed: Keab-ds-rxxxen MR Angiogram of the Neck and MR [...] vertebrae with counting from the craniocervical junction. [facility] Transcribe Date/Time: May 08 2024 9:40A Dictated by : KATTY DAI MD This examination was interpreted and the report reviewed and electronically signed by: KATTY DAI MD on May 08 2024 10:06AM EST Results-Findings Result History MR-MRA Neck without Contrast - OVERREAD (Order #[id number]) on 05/13/2024 - Order Result History Report - Result Edited Result Information Status Provider Status Edited Result - FINAL (05/13/2024 8:39 AM) Ordered Exam Performed Date and Time 04/29/2024 Resulting Agency DIVISION OF RADIOLOGY [address] [facility] [address] Patient Images Get Images MR-MRA Neck without Contrast - OVERREAD: Patient Communication Not Released Not seen Patient Release Status: This result is not viewable by the patient. Recipient List for Orders Batch Status Sent From To Cc'd Forwarded To Results Sent 05/08/2024 10:08 AM Harmony Russ In Mini Whyte MD MR-MRA Neck without Contrast - OVERREAD [[id number]] Routing History Priority Sent On From To Message Type 05/08/2024 10:08 AM Harmony Russ In Mini Whyte MD Results Order Report Order Details Results MR-Spine Cervical W/WO Contrast - OVERREAD (Acc#[id number]) (Order [id number]) Patient Info Patient Name Sex Dior Carvajal ([id number]) Female 1965 In Basket Actions Done Result Mgmt View in In Basket 05/13/2024 8:39 AM - Radiology Oru In Addenda * * *Final Report* [...] be discussed: Tumor Board discussion Images Reviewed: Vgjk-hj-ggdhdc MR Angiogram of the Neck and MR [...] progression of cervical spondylosis from 2010 exam. Allocations Clerk: MAGUI Transcribe Date/Time: May 13 2024 8:25A [...] be discussed: Tumor Board discussion Images Reviewed: Vpea-lh-dffxbe MR Angiogram of the Neck and MR [...] vertebrae with counting from the craniocervical junction. Allocations Clerk: [facility] Transcribe Date/Time: May 08 2024 9:40A Dictated by : KATTY DAI MD This examination was interpreted and the report reviewed and electronically signed by: KATTY DAI MD on May 08 2024 10:06AM EST Results-Findings Result History MR-Spine Cervical W/WO Contrast - OVERREAD (Order #[id number]) on 05/13/2024 - Order Result History Report - Result Edited Result Information Status Provider Status Edited Result - FINAL (05/13/2024 8:39 AM) Ordered Exam Performed Date and Time 04/29/2024 Resulting Agency DIVISION OF RADIOLOGY [address] [facility] [address] Patient Images Get Images MR-Spine Cervical W/WO Contrast - OVERREAD: Patient Communication Not Released Not seen Patient Release Status: This result is not viewable by the patient. Recipient List for Orders Batch Status Sent From To Cc'd Forwarded To Results Sent 05/08/2024 10:08 AM Radiology Oru In Mini Whyte MD MR-Spine Cervical W/WO Contrast - OVERREAD [[id number]] Routing History Priority Sent On From To Message Type 05/08/2024 10:08 AM Harmony Russ In Mini Whyte MD Results Order Report Order Details [facility] 05-13-2024 Miscellaneous Notes Summary: Telephone communication [...] Results MR-MRA Neck without Contrast - OVERREAD (Acc#[id number] [facility]) (Order [id number]) Patient Info Patient Name Sex Dior Carvajal ([id number]) Female 1965 In Basket Actions Done Result [...] be discussed: Tumor Board discussion Images Reviewed: Umer-ao-byoqqj MR Angiogram of the Neck and MR [...] progression of cervical spondylosis from 2010 exam. Allocations Clerk: MAGUI Transcribe Date/Time: May 13 2024 8:25A [...] be discussed: Tumor Board discussion Images Reviewed: Zmom-oa-ycsopy MR Angiogram of the Neck and MR [...] vertebrae with counting from the craniocervical junction. Allocations Clerk: [facility] Transcribe Date/Time: May 08 2024 9:40A Dictated by : KATTY DAI MD This examination was interpreted and the report reviewed and electronically signed by: KATTY DAI MD on May 08 2024 10:06AM EST Results-Findings Result History MR-MRA Neck without Contrast - OVERREAD (Order #[id number]) on 05/13/2024 - Order Result History Report - Result Edited Result Information Status Provider Status Edited Result - FINAL (05/13/2024 8:39 AM) Ordered Exam Performed Date and Time 04/29/2024 Resulting Agency DIVISION OF RADIOLOGY [address] [place] [address] Patient Images Get Images MR-MRA Neck without Contrast - OVERREAD: Patient Communication Not Released Not seen Patient Release Status: This result is not viewable by the patient. Recipient List for Orders Batch Status Sent From To Cc'd Forwarded To Results Sent 05/08/2024 10:08 AM Harmony Russ In Mini Whyte MD MR-MRA Neck without Contrast - OVERREAD [[id number]] Routing History Priority Sent On From To Message Type 05/08/2024 10:08 AM Harmony Russ In Mini Whyte MD Results Order Report Order Details Results MR-Spine Cervical W/WO Contrast - OVERREAD (Acc#[id number]) (Order [id number]) Patient Info Patient Name Sex Dior Carvajal ([id number]) Female 1965 In Basket Actions Done Result [...] be discussed: Tumor Board discussion Images Reviewed: Lsea-sz-mixdia MR Angiogram of the Neck and MR [...] progression of cervical spondylosis from 2010 exam. Allocations Clerk: MAGUI Transcribe Date/Time: May 13 2024 8:25A [...] be discussed: Tumor Board discussion Images Reviewed: Faer-nr-pczaev MR Angiogram of the Neck and MR [...] vertebrae with counting from the craniocervical junction. [facility] Transcribe Date/Time: May 08 2024 9:40A Dictated by : KATTY DAI MD This examination was interpreted and the report reviewed and electronically signed by: KATTY DAI MD on May 08 2024 10:06AM EST Results-Findings Result History MR-Spine Cervical W/WO Contrast - OVERREAD (Order #[id number]) on 05/13/2024 - Order Result History Report - Result Edited Result Information Status Provider Status Edited Result - FINAL (05/13/2024 8:39 AM) Ordered Exam Performed Date and Time 04/29/2024 Resulting Agency DIVISION OF RADIOLOGY [id number] [facility] [id number] Patient Images Get Images MR-Spine Cervical W/WO Contrast - OVERREAD: Patient Communication Not Released Not seen Patient Release Status: This result is not viewable by the patient. Recipient List for Orders Batch Status Sent From To Cc'd Forwarded To Results Sent 05/08/2024 10:08 AM Quintin Russu In Mini Whyte MD MR-Spine Cervical W/WO Contrast - OVERREAD [[id number]] Routing History Priority Sent On From To Message Type 05/08/2024 10:08 AM Quintin Russu In Mini Whyte MD Results Order Report Order Details documented in this encounter [facility] 05-12-2024 Telephone encounter Note If possible can we add MRA brain and C- spine xray to be added to study for 05/26? She is coming from a facility if this could be added. [place], [place] If not, let us know and they will need to arrange through her facility. Thank you Gerda Scheduling Request - New Patient Time Frame: 2-4 weeks or best Orders: Consult to neurology- [facility] Brain [facility] (dementia) Provider or Provider [...] sister so they can arrange for transportation [facility] Work Phone: 05-12-2024 Miscellaneous Notes If possible can we add MRA brain and C- spine xray to be added to study for 05/26? She is coming from a facility if this could be added. [place], [place] If not, let us know and they will need to arrange through her facility. Thank you Gerda Scheduling Request - New Patient Time Frame: 2-4 weeks or best [facility] or Provider [...] arrange for transportation documented in this encounter [facility] 05-09-2024 Telephone encounter Note I called [...] and left a VM on the other personal care worker, that I called: Long Tanner (Father) [phone] I will wait for them to call back. Mini Whyte MD [facility] 05-09-2024 Miscellaneous Notes I called Katie [...] and left a VM on the other personal care worker, that I called: Long Tanner (Father) [phone] I will wait for them to call back. Mini Whyte MD documented in this encounter [facility] 05-08-2024 Note HNO ID: [id number] Author: MINI WHYTE MD Service: ? Author Type: Physician Type: Progress Notes Filed: 05/10/2024 14:12 Note Text: [facility] BRAIN TUMOR CENTER NEURO-ONCOLOGY VIRTUAL VISIT NOTE This is a virtual visit using HIPAA compliant audio platform. It required patient-provider interaction for the medical decision making as documented below. I have communicated my name and active licensure. The patient's identity and physical location were verified at the time of this visit. Either the patient or their legal vaccine customer representative has been informed of the risks [...] Surgery: R frontal lobe tumor resection at [facility] [place]- ([id number]) Pathology: Anaplastic astrocytoma Neurosurgeon: Raul Tamez MD [facility] , [address] [place], [place] Radiation oncologist: Unknown PER SISTER: ONLY HAD RADIATION. NEVER HAD CHEMO However on some [facility] Notes is says - patient had chemo-radiation. 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 Again, the history is limited because we have limited records. SOCIAL: New Address (05/08/24) : [address] [place] [id number] -Sister Laureen SARGENT Therapy Status Data Form [...] 3 doses fo (more content not included)... [facility] 05-08-2024 History of Present illness Narrative Images from the original note were not included. [facility] [place] [facility]RA[facility] TUMOR CENTER NEURO-ONCOLOGY VIRTUAL VISIT NOTE This is a virtual visit using HIPAA compliant audio platform. It required patient-provider interaction for the medical decision making as documented below. I have communicated my name and active licensure. The patient's identity and physical location were verified at the time of this visit. Either the patient or their legal vaccine customer representative has been informed of the risks [...] Surgery: R frontal lobe tumor resection at [facility], [place]- ([id number]) Pathology: Anaplastic astrocytoma Neurosurgeon: Raul Tamez MD [facility] , [address] [place], [place] Radiation oncologist: Unknown PER SISTER: ONLY HAD RADIATION. NEVER HAD CHEMO However on some [facility] Notes is says - patient had chemo-radiation. 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 Again, the history is limited because we have limited records. SOCIAL: New Address (05/08/24) : [address] [place] [address], [place] [address] -Sister Laureen SARGENT Therapy Status Data Form [...] 1.00 - 4.00 k/uL 1.92 1.95 Abs Mchenry <0.87 k/uL 0.44 0.72 Abs Eosin <0.46 [...] & HISTORY: Right craniotomy brain tumor, 04/30/92 [facility] Final Diagnosis FINAL DIAGNOSIS: A,B,C&D. Brain tumor: Anaplastic astrocytoma. [facility] Nonchartable [id number] R Signed-Out [facility] Nonchartable A. FS-BRAIN TUMOR Collected: 05/18/1992 Received: 05/18/1992 B. BRAIN TUMOR Collected: 05/18/1992 Received: 05/18/1992 C. brain tumor Collected: 05/18/1992 Received: 05/18/1992 D. BRAIN TUMOR Collected: 05/18/1992 Received: 05/18/1992 SNOMED: [id number] Imaging: [facility] Procedure Notes - documented in this [...] abnormality. Age advanced moderate parenchymal volume loss. Allocations Clerk: MAGUI Transcribe Date/Time: Feb 28 2024 2:24P [...] Consider follow-up MRI brain to reassure stability. Allocations Clerk: [facility] Transcribe Date/Time: Mar 04 2024 11:20A Dictated [...] vertebrae with counting from the craniocervical junction. Allocations Clerk: MAGUI Transcribe Date/Time: May 08 2024 9:40A Dictated by : KATTY DAI MD Assessment & Plan Mrs. Carvajal, is a 58 YO RHF, per records, the patient had back on 04/30/1992 Surgery: For a right frontal lobe tumor resection at [facility] ([id number]). 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 Per the records clear neurosurgeon is Dashawn Montelongo MD [facility]. Her sister confirmed today, that per her own recollection the patient ONLY HAD RADIATION AND NEVER HAD CHEMO. However on some [facility] Notes it says - patient had [...] CT contras, which is documented in the [facility] chart, but she is not aware [...] patient and her sister who is the [facility], agreed with this plan. 05/08/2024 I reviewed [...] records of her brain tumor history from On license of [facility]. -Obtain, the actual pathology, from [facility] if possible, for neuro pathology review at [facility]. -MRI brain w and w/o + perfusion in 3 months time. MRI to be done at [facility]. Booked for 05/26/24. I ordered [...] Bindu Burt on 02/13/2024. -Referral, to brain [facility] for assessment, regarding whether there [...] see the patient, at least 50% of bezf-qa-iwlb patient care, completing clinical documentation, obtaining and/or reviewing separately obtained history, performing a medically appropriate examination, counseling and educating the patient/family/caregiver, ordering medications, tests, or procedures, communicating with other HCPs (not separately reported), independently interpreting results (not separately reported), communicating results to the patient/family/caregiver and care coordination (not separately reported). Mini Whyte MD [facility] Leela Escoto DO [address] [place] [address] Phone patient to review MRA Neck and MRi C spine results 04/29/24 2nd read requested Patient lives in a facility documented in this encounter [facility] 05-08-2024 Miscellaneous Notes Summary: Telephone call [...] Mini Whyte MD documented in this encounter [facility] 05-08-2024 Telephone encounter Note Summary: Telephone [...] reschedule these telephone encounter. Mini Whyte MD [facility] 05-08-2024 Note HNO ID: [id number] Author: GERDA DEE RN Service: ? Author Type: Registered Nurse Type: Progress Notes Filed: 05/10/2024 14:12 Note Text: Phone patient to review MRA Neck and MRi C spine results 04/29/24 2nd read requested Patient lives in a facility [facility] 05-02-2024 Telephone encounter Note Contacted [facility] radiology ph [phone] and spoke with Lana. She will push over MRA Neck /MRI spine images. Once received and reviewed by Dr Spears he will contact patient. Gerda Dee, RN, BSN Weekday Babysitter [facility] Work Phone: 05-02-2024 Miscellaneous Notes Contacted [facility] radiology ph [phone] and spoke with Lana. She will push over MRA Neck /MRI spine images. Once received and reviewed by Dr Spears he will contact patient. Gerda Dee, RN, BSN Weekday Babysitter [facility] documented in this encounter [facility] 04-11-2024 Telephone encounter Note Spoke with RN at patient's nursing facility. She states that the patient is scheduled for 04/28/24 for her MRI and MRA. She has requested they push images over the [facility] after they are completed. Will add patient on for provider phone call once images are received. [facility] Work Phone: 04-11-2024 Miscellaneous Notes Spoke with RN at patient's nursing facility. She states that the patient is scheduled for 04/28/24 for her MRI and MRA. She has requested they push images over the [facility] after they are completed. Will add patient on for provider phone call once images are received. documented in this encounter [facility] 04-01-2024 Telephone encounter Note Received a call from nurse Cindy. They are unable to arrange transportation to [place] for her scans tomorrow but will arrange for them to be done at [facility]. I faxed the orders for xray c spine, MRI C spine, MRA brain/carotid to [facility] fax [phone] along with pre medication orders for prednisone and benadryl. I also faxed her appointment for May. Transmission was good. Someone from the facility will contact me with the scan dates, then we need to call [facility]ology to have images pushed over. Due to some issues with transportation we discussed possibly doing a phone call follow up to discuss results. Patient does not have My Chart and Cindy was going to talk to licensed social worker about assisting with set up. Appointments in May for MRI main campus and visit same day. Gerda Dee RN, BSN Weekday Babysitter [facility] Work Phone: 04-01-2024 Miscellaneous Notes Received a call from nurse Cindy. They are unable to arrange transportation to [place] for her scans tomorrow but will arrange for them to be done at [facility]. I faxed the orders for xray c spine, MRI C spine, MRA brain/carotid to [facility] fax [phone] along with pre medication orders for prednisone and benadryl. I also faxed her appointment for May. Transmission was good. Someone from the facility will contact me with the scan dates, then we need to call [facility]ology to have images pushed over. Due to some issues with transportation we discussed possibly doing a phone call follow up to discuss results. Patient does not have My Chart and Cindy was going to talk to licensed social worker about assisting with set up. Appointments in May for MRI main campus and visit same day. Gerda Dee RN, BSN Weekday Babysitter [facility] [...] not be arranged to be done at [facility] as transportation may be an issue. She is going to check and call me back later today Gerda Dee RN, BSN Weekday Babysitter [facility] documented in this encounter [facility] 04-01-2024 Telephone encounter Note I contacted [...] not be arranged to be done at [facility] as transportation may be an issue. She is going to check and call me back later today Gerda Dee RN, BSN Weekday Babysitter Nies[facility] Grady [facility] Tumor [facility] Neuro[facility] 03-31-2024 Telephone encounter Note Called and spoke with nurse Dior at [facility], they were unaware of the appointments this week and next, she took down all information and will update her records. India Chi RN [facility] 03-31-2024 Miscellaneous Notes Called and spoke with nurse Dior at [facility], they were unaware of the appointments this week and next, she took down all information and will update her records. India Chi RN documented in this encounter [facility] 03-24-2024 Note HNO ID: [id number] Author: GERDA DEE RN Service: ? Author Type: Registered Nurse Type: Progress Notes Filed: 03/24/2024 16:20 Note Text: Patient is moving to [place], [place] Gerda Dee RN, BSN Weekday Babysitter [facility] 03-24-2024 History of Present illness Narrative Patient is moving to [place], [place] Gerda Dee RN, BSN Weekday Babysitter Niesha Davishardt [facility] documented in this encounter [facility] 03-24-2024 Telephone encounter Note Contacted [facility] correction regarding appointments scheduled for 04/02/24 (xray, MRA) and visit with Dr Spears on 04/07. I was told she is moving today to [facility] in [facility] [place]. I confirmed all her upcoming appointments and was told her appointment sheet will be sent with her to [facility]. I called and left a message for her sister Katie regarding her 04/02 imaging studies and appointment with Dr Spears on 04/07 Patient has prednisone for her MRI scheduled for 3/3 but will need refill for the 04/[address] scans. [address]ill sent to Dr Spears. Gerda Dee RN, BSN Weekday Babysitter [facility] Work Phone: 03-24-2024 Miscellaneous Notes Contacted [facility] correction regarding appointments scheduled for 04/02/24 (xray, MRA) and visit with Dr Spears on 04/07. I was told she is moving today to [facility] in [facility] [place]. I confirmed all her upcoming appointments and was told her appointment sheet will be sent with her to [facility]. I called and left a message for her sister Katie regarding her 04/02 imaging studies and appointment with Dr Spears on 04/07 Patient has prednisone for her MRI scheduled for 3/3 but will need refill for the 04/[address] scans. [address] sent to Dr Spears. Gerda Dee, RN, BSN Weekday Babysitter [facility] documented in this encounter [facility] 03-20-2024 Note HNO ID: [id number] Author: ZORA FLORES APRN.CAD DESIGN ENGINEER Service: ? Author Type: Nurse Practitioner Type: Progress Notes Filed: 03/20/2024 09:11 Note Text: Connected Care Unit Progress Note Facility: [facility] Level of Care: Long-term SNF Attending: Macarena [...] Unchanged. Medications: see current medication list in [facility] chart, reviewed (Medications in EPIC may not accurate, please see update in [facility] chart) Objective Data: Vital signs reviewed with [...] condition. Electronically signed by Zora Flores APRN.CNP [facility] 03-20-2024 History of Present illness Narrative Images from the original note were not included. Connected Care Unit Progress Note Facility: [facility] Level of Care: Long-term SNF Attending: Macarena [...] Unchanged. Medications: see current medication list in [facility] chart, reviewed (Medications in EPIC may not accurate, please see update in [facility] chart) Objective Data: Vital signs reviewed with [...] in condition. Electronically signed by Zora Flores APRN.CAD DESIGN ENGINEER documented in this encounter [facility] 03-18-2024 Note HNO ID: [id number] Author: ZORA FLORES APRN.CNP Service: ? Author Type: Nurse Practitioner Type: Progress Notes Filed: 03/18/2024 08:50 Note Text: Connected Care Unit Progress Note Facility: [facility] Level of Care: Long-term SNF Attending: Macarena [...] Unchanged. Medications: see current medication list in [facility] chart, reviewed (Medications in EPIC may not accurate, please see update in [facility] chart) Objective Data: Vital signs reviewed with [...] days with 240 cc water Zora Flores APRN.CAD DESIGN ENGINEER We will continue to monitor for overall comfort, function and safety. Call for changes in condition. Electronically signed by Zora Flores APRN.CNP March 18, 2024 8:47 AM [facility] 03-18-2024 History of Present illness Narrative Images from the original note were not included. Connected Care Unit Progress Note Facility: [facility] Level of Care: Long-term SNF Attending: Macarena [...] Unchanged. Medications: see current medication list in [facility] chart, reviewed (Medications in EPIC may not accurate, please see update in [facility] chart) Objective Data: Vital signs reviewed with [...] 2024 8:47 AM documented in this encounter [facility] 03-17-2024 Telephone encounter Note Sent all requests below to the scheduling pools. Dorcas [facility] Work Phone: 03-17-2024 Miscellaneous Notes Sent all requests below to the scheduling pools. Dorcas Patient resides At [facility] [phone]-let them know of any appointments. Scheduling Request [...] Frame: next available Orders: consult to [facility] - dementia Provider or Provider Group: [...] 8. Quadriplegia (HCC) documented in this encounter [facility] 03-17-2024 Telephone encounter Note Done. Called the facility twice, no answer. (will try again) Mailed reminder. Dorcas [facility] Work Phone: 03-17-2024 Miscellaneous Notes Done. Called the facility twice, no answer. (will try again) Mailed reminder. Dorcas Scheduling Request - est Patient Time Frame: next available Orders: MRA brain, MRA carotid, MRI cervical spine, XR CERVICAL 2V FLEX/EXT - Ok to arrange close scan close to [place] Visit type: In person within a week from scans with Dr. Spears in person Diagnosis: brain tumor Patient lives in a facility and needs transportation arranged. PLease call [facility] Facility [phone]-let them know of any appointments. documented in this encounter [facility] 03-14-2024 Note HNO ID: [id number] Author: GERDA DEE RN Service: ? Author Type: Registered Nurse Type: Progress Notes Filed: 03/14/2024 12:26 Note Text: Spoke with Radha at [facility] pathology- brain slides from 1992 are no longer available. Await records Gerda Dee RN, BSN Weekday Babysitter [facility] 03-14-2024 History of Present illness Narrative Spoke with Radha at [facility] pathology- brain slides from 1992 are no longer available. Await records Gerda Dee RN, BSN Weekday Babysitter Nies[facility] documented in this encounter [facility] 03-14-2024 Note HNO ID: [id number] Author: GERDA DEE RN Service: ? Author Type: Registered Nurse Type: Progress Notes Filed: 03/14/2024 11:48 Note Text: Faxed request for pathology slides and medical records to [facility] medical records/pathology at [phone] fax [phone] Surgery was in 04/1992 Gerda Dee RN, BSN Weekday Babysitter Niesha [facility]inas [facility] 03-14-2024 History of Present illness Narrative Faxed request for pathology slides and medical records to [facility] medical records/pathology at [phone] fax [phone] Surgery was in 04/1992 Gerda Dee RN, BSN Weekday Babysitter Niesha Davishardt [facility] documented in this encounter [facility] 03-11-2024 Telephone encounter Note Attempted to reach [facility]- no answer Predication order and instructions copied and faxed to [facility] fax [phone]- Transmission completed on 03/11 @ 14;42 pm Prednisone 50mg is to be given starting 13 hours before scheduled MRi (on 05/26 @ 9:10 )am, 7 hours before and 1 hour before- for a total of 3 doses of 50mg each. 32- 8 pm 05/26- 2 am 05/26- 8 am Gerda Dee RN, BSN Weekday Babysitter N[facility] Work Phone: 03-11-2024 Miscellaneous Notes Attempted to reach [facility]- no answer Predication order and instructions copied and faxed to [facility] fax [phone]- Transmission completed on 03/11 @ 14;42 pm Prednisone 50mg is to be given starting 13 hours before scheduled MRi (on 05/26 @ 9:10 )am, 7 hours before and 1 hour before- for a total of 3 doses of 50mg each. 32- 8 pm 05/26- 2 am 3- 8 am Gerda Dee RN, BSN Weekday Babysitter [facility] Call Caller : Nieves Johnson Contact or [phone] Reason for Call : Pt is scheduled to have her MRI on 05/26/2024. [facility]ieves is calling for pt's premedication as pt is allergic to the contrast. Please also note the instruction on when pt is to take medication as Nieves thought pt take her premeds 3 days prior to the MRI appt. Patient requesting return call ? Yes documented in this encounter [facility] 03-10-2024 Telephone encounter Note Sent staff message New CV Patient to PSS team to assist. Imaging updated in chart per internal referral. [facility] 03-10-2024 Miscellaneous Notes Sent staff message New CV Patient to PSS team to assist. Imaging updated in chart per internal referral. Images from the original note were not included. Consult Received: Dorcas Moya Cv Triage Please schedule below request. Patient resides At [facility] [phone]-let them know of any appointments. Scheduling Request [...] 8. Quadriplegia (HCC documented in this encounter [facility] 03-10-2024 Telephone encounter Note General Call Caller : Nieves wade Johnson Contact or [phone] Reason for Call : Pt is scheduled to have her MRI on 05/26/2024. Nieves is calling for pt's premedication as pt is allergic to the contrast. Please also note the instruction on when pt is to take medication as Nieves thought pt take her premeds 3 days prior to the MRI appt. Patient requesting return call ? Yes [facility] 03-05-2024 Telephone encounter Note Images from the original note were not included. Consult Received: Dorcas Moya Cv Triage Please schedule below request. Patient resides At [facility] [phone]-let them know of any appointments. Scheduling Request [...] spinal cord, sequela (HCC) 8. Quadriplegia (HCC [facility] 03-04-2024 Telephone encounter Note Scheduling Request - est Patient Time Frame: next available Orders: MRA brain, MRA carotid, MRI cervical spine, XR CERVICAL 2V FLEX/EXT - Ok to arrange close scan close to [place] Visit type: In person within a week from scans with Dr. Spears in person Diagnosis: brain tumor Patient lives in a facility and needs transportation arranged. PLease call [facility] [phone]-let them know of any appointments. [facility] Work Phone: 03-04-2024 Telephone encounter Note Patient resides At [facility] [phone]-let them know of any appointments. Scheduling Request [...] Frame: next available Orders: consult to [facility] Provider or Provider Group: [...] spinal cord, sequela (HCC) 8. Quadriplegia (HCC) [facility] Work Phone: 03-04-2024 Note Addended by: MINI MATHEWS on: 03/04/2024 01:59 PM Modules accepted: Orders [facility] 03-04-2024 Miscellaneous Notes Addended by: MINI WHYTE on: 03/04/2024 01:59 PM Modules accepted: Orders documented in this encounter [facility] 03-04-2024 Miscellaneous Notes Scheduling Request - Established Patient Time Frame: week of 05/26 Orders: MRI brain at Provider: Dr. Spears Visit type: In person same day at Diagnosis: astrocytoma documented in this encounter [facility] 03-04-2024 Telephone encounter Note Scheduling Request - Established Patient Time Frame: week of 05/26 Orders: MRI brain at Provider: Dr. Spears Visit type: In person same day at Diagnosis: astrocytoma [facility] Work Phone: 03-04-2024 History of Present illness Narrative [facility] NOTE NAME: DIOR CARVAJAL [facility] NO.: [id number] DATE OF SERVICE: 03/04/2024 ATTENDING PHYSICIAN: Macarena Bain MD [facility] Followup of multiple medical chronic issues. She is currently resting in bed. She appears quite comfortable. She has no complaints or pain. She denies being short of breath. Nursing reports no new problems. She was recently seen in followup at the [facility] for her history of brain tumor. [...] again, she is to follow up with [facility] and undergo MRI. DICTATED BY: MD PRASHANT Singleton/JOHNNIE JOB# [id number] [facility] documented in this encounter [facility] 03-04-2024 Note HNO ID: [id number] Author: MACARENA BAIN, ? Service: ? Author Type: Physician Type: Progress Notes Filed: 03/06/2024 07:48 Note Text: [facility] NOTE NAME: DIOR CARVAJAL [facility]IN[facility] NO.: [id number] DATE OF SERVICE: 03/04/2024 ATTENDING PHYSICIAN: Macarena Bain MD [facility] Followup of multiple medical chronic issues. She is currently resting in bed. She appears quite comfortable. She has no complaints or pain. She denies being short of breath. Nursing reports no new problems. She was recently seen in followup at the [facility] for her history of brain tumor. [...] again, she is to follow up with [facility] and undergo MRI. DICTATED BY: Macarena Bain MD IAE/AQT JOB# [id number] [facility] 02-28-2024 Note HNO ID: [id number] Author: MINI WHYTE MD Service: ? Author Type: Physician Type: Progress Notes Filed: 03/04/2024 13:59 Note Text: [facility] Clinic follow up. Diagnosis: Anaplastic astrocytoma The patient is accompanied by a staff at the long term acute care registered nurse facility where she resides, [place]. Subjective History of Present Illness: Mrs. Carvajal, [...] Surgery: R frontal lobe tumor resection at [facility] [place]- ([id number]) Pathology: Anaplastic astrocytoma Neurosurgeon: Raul Tamez MD [facility] , [address] [place], [place] Radiation oncologist: Unknown PER SISTER: ONLY HAD RADIATION. NEVER HAD CHEMO However on some [facility] Notes is says - patient had chemo-radiation. 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 SOCIAL: -Patient resides in [facility] -Sister Laureen Hassan MPOA Therapy Status Data [...] daily. omeprazole (PRILOSEC (more content not included)... [facility] 02-28-2024 History of Present illness Narrative Images from the original note were not included. [facility] Clinic follow up. Diagnosis: Anaplastic astrocytoma The patient is accompanied by a staff at the long term acute care registered nurse facility where she resides, [place]. Subjective History of Present Illness: Mrs. Carvajal, [...] Surgery: R frontal lobe tumor resection at [facility] [place]- ([id number]) Pathology: Anaplastic astrocytoma Neurosurgeon: Raul Tamez MD [facility] , [address] [place], [place] Radiation oncologist: Unknown PER SISTER: ONLY HAD RADIATION. NEVER HAD CHEMO However on some [facility] Notes is says - patient had chemo-radiation. 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 SOCIAL: -Patient resides in [facility] -Sister Laureen Hassan MPOA Therapy Status [...] 1.00 - 4.00 k/uL 1.92 1.95 Abs Mchenry <0.87 k/uL 0.44 0.72 Abs Eosin <0.46 [...] & HISTORY: Right craniotomy brain tumor, 04/30/92 [facility] Final Diagnosis FINAL DIAGNOSIS: A,B,C&D. Brain tumor: Anaplastic astrocytoma. [facility] Nonchartable [id number] R Signed-Out [facility] Nonchartable A. FS-BRAIN TUMOR Collected: 05/18/1992 Received: 05/18/1992 B. BRAIN TUMOR Collected: 05/18/1992 Received: 05/18/1992 C. brain tumor Collected: 05/18/1992 Received: 05/18/1992 D. BRAIN TUMOR Collected: 05/18/1992 Received: 05/18/1992 SNOMED: [id number] Imaging: [facility] Procedure Notes - documented in this [...] abnormality. Age advanced moderate parenchymal volume loss. Allocations [facility] Trans[facility] Date/Time: Feb 28 2024 2:24P Dictated [...] a right frontal lobe tumor resection at [facility] ([id number]). 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 Per the records clear neurosurgeon is Dashawn Montelongo MD [facility]. Her sister confirmed today, that per her own recollection the patient ONLY HAD RADIATION AND NEVER HAD CHEMO. However on some [facility] Notes it says - patient had [...] records of her brain tumor history from [facility] of [facility]. -Obtain, the actual pathology, from [facility] if possible, for neuro pathology review at [facility]. -MRI brain w and w/o + perfusion in 3 months time. MRI to be done at [facility]. -Premedications, with the pheniramine and [...] Bindu Burt on 02/13/2024. -Referral, to brain [facility] for assessment, regarding whether there [...] see the patient, at least 50% of [id number] patient care, completing clinical documentation, obtaining and/or reviewing separately obtained history, performing a medically appropriate examination, counseling and educating the patient/family/caregiver, ordering medications, tests, or procedures, communicating with other HCPs (not separately reported), independently interpreting results (not separately reported), communicating results to the patient/family/caregiver and care coordination (not separately reported). Mini Whyte MD [facility] Leela Escoto DO [address] [place] [id number] documented in this encounter [facility] 02-28-2024 Nurse Note Additional intake questions: Has the patient had fever, nausea, vomiting, diarrhea, constipation, fatigue for > 1 week? No Does the patient have a decreased appetite? No Does patient want to see a Combustion Analyst? No (yes to any of above refer patient to schedulers for dietitian appointment) ) Does patient have any new or increased numbness or tingling of extremities? No Is patient interested in fertility information? No Does patient need any prescription refills? No Does patient have an advanced directive in place? No, Patient referred to [facility] 02-28-2024 Nurse Note Additional intake questions: Has the patient had fever, nausea, vomiting, diarrhea, constipation, fatigue for > 1 week? No Does the patient have a decreased appetite? No Does patient want to see a Combustion Analyst? No (yes to any of above refer patient to schedulers for dietitian appointment) ) Does patient have any new or increased numbness or tingling of extremities? No Is patient interested in fertility information? No Does patient need any prescription refills? No Does patient have an advanced directive in place? No, Patient referred to [facility] documented in this encounter [facility] 02-28-2024 Note HNO ID: [id number] Author: JR GALLEGO RN Service: Radiology Author [...] 28, 2024 TIME: 2:20 PM PAGER/CONTACT #: [facility] 02-28-2024 History of Present illness [...] PATIENT PRESENTS WITH AN IMPLANTABLE OR ATTACHED CUSTOMER OPERATIONS REPRESENTATIVE: No RADIOLOGY DEPARTMENT: MR; Exam(s) Completed: Head: Routine Brain PERIPHERAL IV DATA: Not applicable SIGNED BY: RACHELLE Garcia February 28, 2024 2:00 PM documented in this encounter [facility] 02-28-2024 Note HNO ID: [id number] Author: YENNIFER NOVA MRI Tech Service: Radiology [...] PATIENT PRESENTS WITH AN IMPLANTABLE OR ATTACHED CUSTOMER OPERATIONS REPRESENTATIVE: No RADIOLOGY DEPARTMENT: MR; Exam(s) Completed: Head: Routine Brain PERIPHERAL IV DATA: Not applicable SIGNED BY: Yennifer Nova steeple jack February 28, 2024 2:00 PM [facility] 02-13-2024 Note HNO ID: [id number] Author: BINDU BURT, PhD Service: ? Author Type: Psychologist Type: Progress Notes Filed: 02/29/2024 16:56 Note Text: [facility] Department of Neurology Section of Neuropsychology Neuropsychological Evaluation Report CONFIDENTIAL Patient: Dior Carvajal Referred by: Mini Whyte Date of : 1965 Date of Evaluation: 02/13/2024 SUMMARY/IMPRESSIONS: The patient is a 59-year-old, White, female, referred for a neuropsychological evaluation by Mini Whyte MD in the [facility]. 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 Of note, the patient reported [...] astrocytoma s/p right frontal tumor resection at [facility] [place] on 04/27/1992. She is unsure whether she [...] the patient. IADL/ADL: She has resided in [facility], a correction facility, since 08/05/2022. Her family visits her frequently and is reportedly involved in her care; however, from her self-reported history it is unclear what she requires assistance with specifically. Finances: She states that she is managing finances independently (i.e., mostl (more content not included)... [facility] 02-10-2024 Note HNO ID: [id number] Author: KYLE LANE APRN.CAD DESIGN ENGINEER Service: ? Author Type: Nurse Practitioner Type: Progress Notes Filed: 02/10/2024 20:28 Note Text: Connected Care Unit Telemedicine Progress Note Patient Name: Dior Carvajal Patient Facility: [facility] Level of Care: Long-term SNF Attending: Macarena Bain M.D. Service Date: 02/10/2024 Chief Complaint: Evaluation regarding recent fall ASSESSMENT AND PLAN I have communicated my name and active licensure. The patient's identity and physical location were verified at the time of this visit. Either the patient or their legal vaccine customer representative has been informed of the risks [...] back - Monitor safety awareness Kyle Lane APRN.CAD DESIGN ENGINEER Appointments for Next 60 Days Date Time Provider Location Dept Phone 02/13/2024 12:30 PM BINDU BURT S [facility] [phone] 02/28/2024 11:40 AM MRI 3 RADIO MAIN Q (I-STAT/1.5T/3T) Mn Q [facility] [phone] 02/28/2024 1:30 PM MINI WHYTE Mn Ca [facility] [phone] HPI: Virtual visit for recent fall NAD [...] appropriate parties. Electronically signed by Kyle Lane APRN.CAD DESIGN ENGINEER [facility] 02-10-2024 History of Present illness Narrative Images from the original note were not included. Connected Care Unit Telemedicine Progress Note Patient Name: Dior Carvajal Patient Facility: [facility] Level of Care: Long-term SNF Attending: Macarena Bain M.D. Service Date: 02/10/2024 Chief Complaint: Evaluation regarding recent fall ASSESSMENT AND PLAN I have communicated my name and active licensure. The patient's identity and physical location were verified at the time of this visit. Either the patient or their legal vaccine customer representative has been informed of the risks [...] back - Monitor safety awareness Kyle Lane APRN.CAD DESIGN ENGINEER Appointments for Next 60 Days Date Time Provider Location Dept Phone 02/13/2024 12:30 PM CARMELBINDU [facility] [phone] 02/28/2024 11:40 AM MRI 3 RADIO MAIN Q (I-STAT/1.5T/3T) Jaqueline Q [facility] [phone] 02/28/2024 1:30 PM MINI WHYTE Ca [facility] [phone] HPI: Virtual visit for recent fall NAD [...] appropriate parties. Electronically signed by Kyle Lane APRN.CAD DESIGN ENGINEER documented in this encounter [facility] 02-07-2024 History of Present illness Narrative Dior Carvajal : 1965 Longterm: [facility]- Longterm[facility]Assisted [facility] PCP: ODELL Date last seen: 01/01/2024 CAD DESIGN ENGINEER PAST MEDICAL HISTORY Diagnosis Date Abnormal gait [...] Hayder Bone DPM documented in this encounter [facility] 02-07-2024 Instructions Hayder Bone DPM - 02/07/2024 12:26 PM EST Pt not to attempt self care due to high risk. documented in this encounter [facility] 02-06-2024 Telephone encounter Note Contacted [facility] and spoke with Johanny. I let her know dates, times and location for patients MRI and visit scheduled for 02/28/24. Sister was also updated who will meet patient here. Transportation to be arranged by facility Gerda Dee RN, BSN Weekday Babysitter [facility] Work Phone: 02-06-2024 Telephone encounter Note Returned call and provided Katie with appointment dates and times for 02/28/24 Gerda Dee RN, BSN Weekday Babysitter [facility] Work Phone: 02-06-2024 Miscellaneous Notes Returned call and provided Katie with appointment dates and times for 02/28/24 Gerda Dee RN, BSN Weekday Babysitter [facility] General Call Caller : Katie/ Contact Reason for Call : Katie says she is returning a missed call from [facility] regarding pt's appt. Patient requesting return call ? Yes documented in this encounter [facility] 02-06-2024 Miscellaneous Notes Contacted [facility] and spoke with Johanny. I let her know dates, times and location for patients MRI and visit scheduled for 02/28/24. Sister was also updated who will meet patient here. Transportation to be arranged by facility Gerda Dee RN, BSN Weekday Babysitter [facility] documented in this encounter [facility] 02-06-2024 Telephone encounter Note General Call Caller : Katie/sister Contact Reason for Call : Katie says she is returning a missed call from Marc regarding pt's appt. Patient requesting return call ? Yes [facility] 01-29-2024 Telephone encounter Note Spoke to court abstractor from Facility, she is scheduled & confirmed for all appts. [facility] 01-29-2024 Miscellaneous Notes Spoke to court abstractor from Facility, she is scheduled & confirmed for all appts. Scheduling Request - Established Patient Time Frame: [facility] week of 02/25/24 Orders: MRI [...] Diagnosis: cognitive assessment. documented in this encounter [facility] 01-21-2024 Telephone encounter Note Spoke with patient's sister, Katie to let her know that Dr Spears wants Dior to have an MRI in ~ 4 weeks. [place] [facility] [place] (week of 02/24) . A family member needs to be present. At Dior's consultation she came with an aide front facility and no family. Katie said she works in [employer] and can meet Dior at her appointment. Dior and the facility ([facility] [place] [phone]) will need to know the day/time of appointment to make arrangements. Once appointments are scheduled, we will notify them. Dior does not have My Chart Gerda Dee RN, BSN Weekday Babysitter Niesha Davishardt [facility] Work Phone: 01-21-2024 Miscellaneous Notes Spoke with patient's sister, Katie to let her know that Dr Spears wants Dior to have an MRI in ~ 4 weeks. [place] [facility] [place] visit (week of 02/24) . A family member needs to be present. At Dior's consultation she came with an aide front he facility and no family. Katie said she works in [employer] and can meet Dior at her appointment. Dior and the facility ([facility] [place] [phone]) will need to know the day/time of appointment to make arrangements. Once appointments are scheduled, we will notify them. Dior does not have My Chart Gerda Dee RN, BSN Weekday Babysitter Niesha Grady [facility] documented in this encounter [facility] 01-21-2024 Telephone encounter Note Scheduling Request - Established Patient Time Frame: [facility] week of 02/25/24 Orders: MRI [...] person Referring: Dr Spears Diagnosis: cognitive assessment. [facility] Work Phone: 01-17-2024 History of Present illness Narrative Images from the original note were not included. [facility] New Patient Consultation Referred by: Leela Escoto, DO [address] [facility] [id number] Diagnosis: Anaplastic astrocytoma The patient is accompanied by a staff at the long term acute care registered nurse facility where she resides, [place]. Subjective History of Present Illness: Mrs. Carvajal, [...] if she had chemotherapy. Patient resides in [facility] records- NO MRI BRAIN IMAGES (last record of MRI brain at [facility] [place] was 05/15/2002) No records related to prior treatment received. Surgery: -R frontal lobe tumor resection at [facility] [place]-04/30/1992 ([id number]) Pathology: Anaplastic astrocytoma Neurosurgeon Unknown Radiation oncologist: Unknown Pertinent History: per recoards -Limited records. NO MRI brain images -L frontal tumor resection done at [facility] [place] 04/30/92 -Pathology- anaplastic astrocytoma January 19, 2024 [...] 1.00 - 4.00 k/uL 1.92 1.95 Abs Mchenry <0.87 k/uL 0.44 0.72 Abs Eosin <0.46 [...] & HISTORY: Right craniotomy brain tumor, 04/30/92 [facility] Final Diagnosis FINAL DIAGNOSIS: A,B,C&D. Brain tumor: Anaplastic astrocytoma. [facility] Nonchartable [id number] R Signed-Out [facility] Nonchartable A. FS-BRAIN TUMOR Collected: 05/18/1992 Received: 05/18/1992 B. BRAIN TUMOR Collected: 05/18/1992 Received: 05/18/1992 C. brain tumor Collected: 05/18/1992 Received: 05/18/1992 D. BRAIN TUMOR Collected: 05/18/1992 Received: 05/18/1992 SNOMED: [id number] Imaging: MRI Report No resulted procedures found. [...] see the patient, at least 50% of [id number] patient care, completing clinical documentation, obtaining and/or reviewing separately obtained history, performing a medically appropriate examination, counseling and educating the patient/family/caregiver, ordering medications, tests, or procedures, communicating with other HCPs (not separately reported), independently interpreting results (not separately reported), communicating results to the patient/family/caregiver and care coordination (not separately reported). Mini Whyte MD 10:32 AM 01/17/2024 [facility] Leela Escoto DO [address] [place] [id number] documented in this encounter [facility] 01-17-2024 Nurse Note Additional intake questions: Has the patient had fever, nausea, vomiting, diarrhea, constipation, fatigue for > 1 week? Yes, nausea, vomiting, constipation (day of last BM 01/16/24), and diarrhea ( 4 times in last 24 hours) Does the patient have a decreased appetite? No Does patient want to see a Combustion Analyst? No (yes to any of above refer patient to schedulers for dietitian appointment) ) Does patient have any new or increased numbness or tingling of extremities? No Is patient interested in fertility information? No Does patient need any prescription refills? No Does patient have an advanced directive in place? No, Patient refused referral to Social Work or Resource Center [facility] 01-17-2024 Nurse Note Additional intake questions: Has the patient had fever, nausea, vomiting, diarrhea, constipation, fatigue for > 1 week? Yes, nausea, vomiting, constipation (day of last BM 01/16/24), and diarrhea ( 4 times in last 24 hours) Does the patient have a decreased appetite? No Does patient want to see a Combustion Analyst? No (yes to any of above refer patient to schedulers for dietitian appointment) ) Does patient have any new or increased numbness or tingling of extremities? No Is patient interested in fertility information? No Does patient need any prescription refills? No Does patient have an advanced directive in place? No, Patient refused referral to Social Work or Resource Center documented in this encounter [facility] 01-15-2024 History of Present illness Narrative This note is only to load and organize information prior to patient's visit to [facility]. This includes information gathered from outside records and/or information that has been previously documented in [facility] and will be confirmed with the patient at the time of visit. Patient is a 58 y/o female from [place], [place] Reason for consult: h/o astrocytoma Patient resides in [facility] records- NO MRI BRAIN IMAGES (last record of MRI brain at [facility] [place] was 05/15/2002) No records related to prior treatment received. Surgery: -R frontal lobe tumor resection at [facility] [place]-04/30/1992 ([id number]) Pathology: Anaplastic astrocytoma Neurosurgeon Unknown Radiation oncologist: [...] images -L frontal tumor resection done at [facility] [place] 04/30/92 -Pathology- anaplastic astrocytoma 12/25/2023 CT BRAIN [...] recurrence is seen. Gerda Dee RN, BSN Weekday Babysitter Niesha Mcdowella [facility] documented in this encounter [facility] 01-14-2024 History of Present illness Narrative Images from the original note were not included. Connected Care Unit Telemedicine Progress Note Patient Name: Dior Carvajal Patient Facility: [facility] Level of Care: Long-term SNF Attending: Macarena Bain M.D. Service Date: 01/14/2024 Chief Complaint: Evaluation regarding recent fall ASSESSMENT AND PLAN I have communicated my name and active licensure. The patient's identity and physical location were verified at the time of this visit. Either the patient or their legal vaccine customer representative has been informed of the risks [...] back - Monitor safety awareness Kyle Lane APRN.CAD DESIGN ENGINEER HPI: Virtual visit for recent fall NAD [...] appropriate parties. Electronically signed by Kyle Lane APRN.CAD DESIGN ENGINEER documented in this encounter [facility] 01-08-2024 Telephone encounter Note Dior had resection and radiation treatment at [facility] - will request pathology and office notes. ___ Patient: Dior Carvajal Address: Dior Carvajal [id number] [place] [address] Per Triage: Dior Carvajal is a 58 year old female: 27 years old - resection and radiation of brain tumor at [facility] prior history/resection information Patient expectations: New Consult [...] with MR brain without and with contrast. [facility] Clerk[facility] Transcribe Date/Time: Dec 25 2023 1:22P Dictated [...] imaged soft tissues are unremarkable. Umm Nuñez APRN.CAD DESIGN ENGINEER January 08, 2024 [facility] 01-08-2024 Miscellaneous Notes Dior had resection and radiation treatment at [facility] - will request pathology and office notes. ___ Patient: Dior Carvajal Address: Dior Carvajal [id number] [place] [address] Per Triage: Dior Carvajal is a 58 year old female: 27 years old - resection and radiation of brain tumor at [facility] Need prior history/resection information Patient expectations: [...] with MR brain without and with contrast. Allocations Clerk: [facility] Transcribe Date/Time: Dec 25 2023 1:22P [...] January 08, 2024 Images in Epic 1. Signing Teacher: Who is requesting this appointment?patient and patient's caregiver & court abstractor Nieves [phone] 2. Signing Teacher: Please indicate the best contact information for our team to reach you with any questions/concerns we may have? 3. Signing Teacher: What is your diagnosis? Other 4. Signing Teacher: Have you ever been seen at our center before? If yes, by whom? N/A (If the patient has been seen in our department before, please bypass the triage process and send a message to the patient care provider of the provider that the patient saw in the past. (Patient being referred to us with the same dx)). 5. Signing Teacher: Is there a specific doctor you were referred to? N/A 6. Signing Teacher: What facility and/or hospital have you been seen at? [facility] Name of facility/name of provider where patient was treated. N/a 7. Signing Teacher: For this appointment, we will need to request a few records from you. This will help our triage team be able to select the best provider for your treatment. a. Please provide: Most recent MRI- spine/Brain (Signing Teacher will check CareEverywhere for records). 8. Signing Teacher: Where was your last imaging completed:December 2023(Ideally should be completed within the last six months). 9. Signing Teacher: Have you had any surgeries pertaining to this appointment? No If yes, please obtain pathology report. 10. Signing Teacher: Please allow up to 48-72 hours for our triage team to review your records. Once they reviewed your records, we will be in contact with you. a. Was the patient made aware of the turnaround time? Yes 11. Signing Teacher: Our department offers virtual visits depending on the provider you are recommended to see and the state that you live in. If able to schedule, would you like a virtual visit?Yes a. If answered yes: Does the patient have MyChart access: No If not, then court abstractor will walk patient through getting access to MyChart. b. If no, Are you interested in In Person (If not, please indicate patient refused to schedule at this time and the reason to not proceed with scheduling). 12. Sent to triage pool. (Waiting approval). documented in this encounter [facility] 01-08-2024 Telephone encounter Note Images in Epic 1. Signing Teacher: Who is requesting this appointment?patient and patient's caregiver & court abstractor Nieves [phone] 2. Signing Teacher: Please indicate the best contact information for our team to reach you with any questions/concerns we may have? 3. Signing Teacher: What is your diagnosis? Other 4. Signing Teacher: Have you ever been seen at our center before? If yes, by whom? N/A (If the patient has been seen in our department before, please bypass the triage process and send a message to the patient care provider of the provider that the patient saw in the past. (Patient being referred to us with the same dx)). 5. Signing Teacher: Is there a specific doctor you were referred to? N/A 6. Signing Teacher: What facility and/or hospital have you been seen at? [facility] Name of facility/name of provider where patient was treated. N/a 7. Signing Teacher: For this appointment, we will need to request a few records from you. This will help our triage team be able to select the best provider for your treatment. a. Please provide: Most recent MRI- spine/Brain (Signing Teacher will check CareEverywhere for records). 8. Signing Teacher: Where was your last imaging completed:December 2023(Ideally should be completed within the last six months). 9. Signing Teacher: Have you had any surgeries pertaining to this appointment? No If yes, please obtain pathology report. 10. Signing Teacher: Please allow up to 48-72 hours for our triage team to review your records. Once they reviewed your records, we will be in contact with you. a. Was the patient made aware of the turnaround time? Yes 11. Signing Teacher: Our department offers virtual visits depending on the provider you are recommended to see and the state that you live in. If able to schedule, would you like a virtual visit?Yes a. If answered yes: Does the patient have MyChart access: No If not, then court abstractor will walk patient through getting access to [facility]. b. If no, Are you interested in In Person (If not, please indicate patient refused to schedule at this time and the reason to not proceed with scheduling). 12. Sent to triage pool. (Waiting approval). [facility] 01-01-2024 History of Present illness Narrative Images from the original note were not included. Connected Care Unit Progress Note Facility: [facility] Level of Care: Long-term [...] Unchanged. Medications: see current medication list in [facility] chart, reviewed (Medications in [facility] may not accurate, please see update in [facility] chart) Objective Data: Vital signs reviewed with [...] Encourage fluids and toilet schedule Zora Flores APRN.CNP We will continue to monitor for overall comfort, function and safety. Call for changes in condition. Electronically signed by Zora Flores APRN.CNP January 01, 2024 9:34 AM documented in this encounter [facility] 01-01-2024 History of Present illness Narrative [facility] NOTE NAME: DIOR CARVAJAL CLINIC NO.: [id number] DATE OF SERVICE: 01/01/2024 ATTENDING PHYSICIAN: Macarena Bain MD [facility] Followup multiple medical chronic issues She is [...] DICTATED BY: Macarena Bain MD IAE/AQT JOB# [id number] [facility] documented in this encounter [facility] 12-25-2023 History of Present illness Narrative [...] PATIENT PRESENTS WITH AN IMPLANTABLE OR ATTACHED CUSTOMER OPERATIONS REPRESENTATIVE: No ALLERGIES: Reviewed and unchanged CONTRAST ALLERGY: [...] TIME: 12:09 PM documented in this encounter [facility] 12-24-2023 Telephone encounter Note Pt lives at a retirement. Chart states that she is allergic to contrast. Facility called and advised to give 50 mg of prednisone at 13, 7 and 1 hour before exam and 50 mg of benadryl 1 hour before scheduled test.RN state that she will facilitate these orders for [facility] policy. [facility] 12-24-2023 Miscellaneous Notes Pt lives at a retirement. Chart states that she is allergic to contrast. Facility called and advised to give 50 mg of prednisone at 13, 7 and 1 hour before exam and 50 mg of benadryl 1 hour before scheduled test.RN state that she will facilitate these orders for [facility] policy. documented in this encounter [facility] 12-10-2023 History of Present illness Narrative Dior Carvajal : 1965 Longterm: [facility]- Longterm/Assisted Living PCP: odell Date last seen: christiano [...] Hayder Bone DPM documented in this encounter [facility] 12-10-2023 Instructions Hayder Bone DPM - 12/10/2023 1:28 PM EDT Pt not to attempt self care due to high risk. documented in this encounter [facility] 12-06-2023 History of Present illness Narrative Images from the original note were not included. Connected Care Unit Progress Note Facility: [facility] Level of Care: Long-term [...] Unchanged. Medications: see current medication list in [facility] chart, reviewed (Medications in EPIC may not accurate, please see update in [facility] chart) Objective Data: Vital signs reviewed with [...] M54.2, G89.29 Tramadol OT therapy Zora Flores APRN.CHRISTIANO We will continue to monitor for overall comfort, function and safety. Call for changes in condition. Electronically signed by Zora Flores APRN.CNP December 06, 2023 8:55 AM documented in this encounter [facility] 11-29-2023 History of Present illness Narrative Images from the original note were not included. Connected Care Unit Progress Note Facility: [facility] Level of Care: Long-term [...] Unchanged. Medications: see current medication list in [facility] chart, reviewed (Medications in EPIC may not accurate, please see update in [facility] chart) Objective Data: Vital signs reviewed with [...] 2023 9:05 AM documented in this encounter [facility] 11-06-2023 History of Present illness Narrative Images from the original note were not included. Connected Care Unit Progress Note Facility: [facility] Skilled Care Level of Care: Long-term [...] Unchanged. Medications: see current medication list in [facility] chart, reviewed (Medications in [facility] may not accurate, please see update in [facility] chart) Objective Data: Vital signs reviewed with [...] 298.9, ICD10: R41.0 See 1 Zora Flores APRN.CNP We will continue to monitor for overall comfort, function and safety. Call for changes in condition. Electronically signed by Zora Flores APRN.CNP November 06, 2023 10:08 AM documented in this encounter [facility] 11-06-2023 History of Present illness Narrative [facility] NOTE NAME: DIOR CARVAJAL CLINIC NO.: [id number] DATE OF SERVICE: 11/06/2023 ATTENDING PHYSICIAN: Macarena Bain MD [facility] Followup of multiple medical chronic issues. She [...] DICTATED BY: Macarena Bain MD IAE/AQT JOB# [id number] [facility] documented in this encounter [facility] 10-11-2023 History of Present illness Narrative Images from the original note were not included. Connected Care Unit Progress Note Facility: [facility] Level of Care: Long-term [...] Unchanged. Medications: see current medication list in [facility] chart, reviewed (Medications in EPIC may not accurate, please see update in [facility] chart) Objective Data: Wt 177 lbs Vital [...] 2023 8:59 AM documented in this encounter [facility] 10-07-2023 History of Present illness Narrative Dior Carvajal : 1965 Longterm: [facility]- Longterm/Assisted Living PCP: dr. bain Date last seen: [...] Hayder Bone DPM documented in this encounter [facility] 10-07-2023 Instructions Hayder Bone DPM - 10/07/2023 7:19 AM EDT Pt not to attempt self care due to high risk. documented in this encounter [facility] 09-11-2023 History of Present illness Narrative [facility] NOTE NAME: DIOR CARVAJAL CLINIC NO.: [id number] DATE OF SERVICE: 09/11/2023 ATTENDING PHYSICIAN: Macarena Bain MD [facility] Followup of multiple medical chronic issues She [...] continue statin therapy. DICTATED BY: MD JENELLE SingletonE/ASHLYNT JOB# [id number] [facility] documented in this encounter [facility] 08-28-2023 History of Present illness Narrative Images from the original note were not included. Connected Care Unit Progress Note Facility: [facility] Level of Care: Long-term [...] Unchanged. Medications: see current medication list in [facility] chart, reviewed (Medications in EPIC may not accurate, please see update in [facility] chart) Objective Data: Vital signs reviewed with [...] ICD10: M25.552 Methocarbamol 500mg prn Zora Flores APRN.CNP We will continue to monitor for overall comfort, function and safety. Call for changes in condition. Electronically signed by Zora Flores APRN.CNP August 28, 2023 9:22 AM documented in this encounter [facility] 08-16-2023 History of Present illness Narrative Images from the original note were not included. Connected Care Unit Progress Note Facility: [facility] Level of Care: Long-term [...] Unchanged. Medications: see current medication list in [facility] chart, reviewed (Medications in EPIC may not accurate, please see update in [facility] chart) Objective Data: Vital signs reviewed with [...] 2023 8:39 AM documented in this encounter [facility] 07-29-2023 History of Present illness Narrative Dior Carvajal : 1965 Longterm: [facility]- Longterm/Assisted Living PCP: DR. BAIN Date last seen: [...] Hayder Bone DPM documented in this encounter [facility] 07-29-2023 Instructions Hayder Bone DPM - 07/29/2023 1:46 PM EDT Pt not to attempt self care due to high risk. documented in this encounter [facility] 06-27-2023 History of Present illness Narrative [facility] NOTE NAME: DIOR CARVAJAL [facility]INIC NO.: [id number] DATE OF SERVICE: 06/27/2023 ATTENDING PHYSICIAN: Macarena Bain MD [facility] Followup of multiple medical chronic issues She [...] therapy. DICTATED BY: MD PRASHANT Singleton/ASHLYNT JOB# [id number] [facility] documented in this encounter [facility] 06-19-2023 History of Present illness Narrative Images from the original note were not included. Connected Care Unit Progress Note Facility: [facility] Level of Care: Long-term [...] Unchanged. Medications: see current medication list in [facility] chart, reviewed (Medications in [facility] may not accurate, please see update in [facility] chart) Objective Data: Wt 176 lbs Vital [...] Controlled - Continue current medications Zora Flores APRN.CAD DESIGN ENGINEER We will continue to monitor for overall comfort, function and safety. Call for changes in condition. Electronically signed by Zora Flores APRN.CNP June 19, 2023 9:50 AM documented in this encounter [facility] 05-25-2023 History of Present illness Narrative Dior Carvajal : 1965 Longterm: [facility]- Longterm/Assisted Living PCP: DR. BAIN Date last seen: [...] Hayder Bone DPM documented in this encounter [facility] 05-25-2023 Instructions Hayder Bone DPM - 05/25/2023 12:24 PM EST Pt not to attempt self care due to high risk. documented in this encounter [facility] 05-03-2023 History of Present illness Narrative [facility] NOTE NAME: RAMEZ CARVAJAL NO.: [id number] DATE OF SERVICE: 05/03/2023 [facility] DATE OF : 1965 Follow up of [...] therapy. DICTATED BY: MD PRASHANT Price/Genie JOB# [id number] cc:[facility] documented in this encounter [facility] 02-28-2023 History of Present illness Narrative [facility] NOTE NAME: RAMEZ CARVAJAL NO.: [id number] DATE OF SERVICE: 02/28/2023 [facility] DATE OF : 1965 Follow up of [...] therapy. DICTATED BY: MD PRASHANT Price/Genie JOB# [id number] cc:[facility] documented in this encounter [facility] 02-13-2023 History of Present illness Narrative Images from the original note were not included. Connected Care Unit Progress Note Facility: [facility] Level of Care: Long-term [...] Unchanged. Medications: see current medication list in [facility] chart, reviewed (Medications in [facility] may not accurate, please see update in [facility] chart) Objective Data: Wt 178 lbs Vital [...] 2023 9:15 AM documented in this encounter [facility] 01-02-2023 History of Present illness Narrative [facility] NOTE NAME: RAMEZ CARVAJAL NO.: [id number] DATE OF SERVICE: 01/02/2023 [facility] DATE OF : 1965 Followup of multiple [...] therapy. DICTATED BY: MD PRASHANT Price/Genie JOB# [id number] cc:[facility] documented in this encounter [facility] 12-12-2022 History of Present illness Narrative Images from the original note were not included. Connected Care Unit Progress Note Facility: [facility] Level of Care: Long-term [...] Unchanged. Medications: see current medication list in [facility] chart, reviewed (Medications in EPIC may not accurate, please see update in [facility] chart) Objective Data: Vital signs reviewed with [...] Controlled - Continue current medications Zora Flores APRN.CAD DESIGN ENGINEER We will continue to monitor for overall comfort, function and safety. Call for changes in condition. Electronically signed by Zora Flores APRN.CHRISTIANO December 12, 2022 10:11 AM documented in this encounter [facility] 11-03-2022 History of Present illness Narrative Dior Carvajal : 1965 Longterm: [facility]- Longterm/Assisted Living PCP: ODELL Date last seen: CHRISTIANO [...] Hayder Bone DPM documented in this encounter [facility] 11-03-2022 Instructions Hayder Bone DPM - 11/03/2022 9:46 AM EDT Pt not to attempt self care due to high risk. documented in this encounter [facility] 09-12-2022 History of Present illness Narrative Images from the original note were not included. Connected Care Unit Progress Note Facility: [facility] Level of Care: Skilled [...] Unchanged. Medications: see current medication list in [facility] chart, reviewed (Medications in EPIC may not accurate, please see update in [facility] chart) Objective Data: Vital signs reviewed with [...] 2022 9:25 AM documented in this encounter [facility] 09-07-2022 History of Present illness Narrative Opened in error documented in this encounter [facility] 09-07-2022 History of Present illness Narrative Images from the original note were not included. Connected Care Unit Progress Note Facility: [facility] Level of Care: Skilled [...] Unchanged. Medications: see current medication list in [facility] chart, reviewed (Medications in EPIC may not accurate, please see update in [facility] chart) Objective Data: Vital signs reviewed with [...] 2022 9:25 AM documented in this encounter [facility] 08-29-2022 History of Present illness Narrative Images from the original note were not included. Connected Care Unit Progress Note Facility: [facility] Level of Care: Skilled [...] Unchanged. Medications: see current medication list in [facility] chart, reviewed (Medications in [facility] may not accurate, please see update in [facility] chart) Objective Data: Vital signs reviewed with [...] 2022 9:35 AM documented in this encounter [facility] 08-25-2022 History of Present illness Narrative Images from the original note were not included. Connected Care Unit Progress Note Facility: [facility] Level of Care: Skilled [...] Unchanged. Medications: see current medication list in [facility] chart, reviewed (Medications in [facility] may not accurate, please see update in [facility] chart) Objective Data: Vital signs reviewed with [...] ICD10: M54.2, G89.29 Tramadol bid Zora Flores APRN.CAD DESIGN ENGINEER We will continue to monitor for overall comfort, function and safety. Call for changes in condition. Electronically signed by Zora Flores APRN.CHRISTIANO August 25, 2022 9:04 AM documented in this encounter [facility] 08-24-2022 History of Present illness Narrative Dior Carvajal : 1965 Longterm: [facility]- Longterm/Assisted Living PCP: ODELL Date last seen: 08/15 [...] Hayder Bone DPM documented in this encounter [facility] 08-24-2022 Instructions Hayder Bone DPM - 08/24/2022 7:04 PM EDT Pt not to attempt self care due to high risk. documented in this encounter [facility] 08-23-2022 History of Present illness Narrative Images from the original note were not included. Connected Care Unit Progress Note Facility: [facility] Level of Care: Skilled [...] Unchanged. Medications: see [facility] HEALTHCARE chart, reviewed (Medications in EPIC may not accurate, please see update in [facility] chart) Objective Data: Wt 179lbs Vital signs [...] 723.1, 338.29, ICD10: M54.2, G89.29 Tramadol bid Zroa Flores APRN.CAD DESIGN ENGINEER We will continue to monitor for overall comfort, function and safety. Call for changes in condition. Electronically signed by Zora Flores APRN.CNP August 23, 2022 9:34 AM documented in this encounter [facility] 08-08-2022 History of Present illness Narrative Images from the original note were not included. Connected Care Unit Progress Note Facility: [facility] Level of Care: Skilled [...] Patient seen today for fu here for correction therapy having difficulty caring for self at [...] Unchanged. Medications: see current medication list in [facility] chart, reviewed (Medications in [facility] may not accurate, please see update in [facility] chart) Objective Data: Vital signs reviewed with [...] 2022 9:17 AM documented in this encounter [facility] 08-07-2022 Miscellaneous Notes Order signed by Dr. Escoto and mailed. Adalberto Woods MA Please sign order. Placed in green folder. Riley Palmer MA Alma Escoto DO Patient left message stating her handicap parking placard is going to be expiring and she would like an order for a new one mailed to [address] [place] [address]. Please advise. Adalberto Woods MA documented in this encounter [facility] 08-07-2022 History of Present illness Narrative [facility] NOTE NAME: RAMEZ CARVAJAL NO.: [id number] DATE OF SERVICE: 08/07/2022 [facility] DATE OF : 1965 New patient history [...] care. DICTATED BY: MD PRASHANT Price/Genie JOB# [id number] cc:[facility] documented in this encounter [facility] 07-31-2022 Miscellaneous Notes Pharmacy requesting refills as follows: Last Office Visit 05/25/22. Last Refill 06/30/22. Requested Prescriptions Pending Prescriptions Disp Refills traMADol (ULTRAM) 50 mg tablet 60 tablet 0 Sig: Take 1 tablet by mouth twice daily for 30 days. Please review and advise. Xochitl Torres MA documented in this encounter [facility] 07-19-2022 Miscellaneous Notes Message left on vm. Patient needs apt. To get into long care facitly . Please contact Katie at [phone] to schedule apt. Thanks. Riley Palmer MA documented in this encounter [facility] 07-13-2022 Miscellaneous Notes Patient is informed [...] Xochitl Torres MA documented in this encounter [facility] 06-30-2022 Miscellaneous Notes Patient requesting refills as follows: Last Office Visit 05/25/22. Last Refill 05/31/22. Requested Prescriptions Pending Prescriptions Disp Refills traMADol (ULTRAM) 50 mg tablet 60 tablet 0 Sig: Take 1 tablet by mouth twice daily for 30 days. Please review and advise. Xochitl Torres MA documented in this encounter [facility] 05-31-2022 Miscellaneous Notes Patient requesting refills as follows: Last Office Visit 05/25/22. Last Refill 05/19/22. Requested Prescriptions Pending Prescriptions Disp Refills traMADol (ULTRAM) 50 mg tablet 60 tablet 0 Sig: Take 1 tablet by mouth twice daily for 30 days. Please review and advise. Xochitl Torres MA documented in this encounter [facility] 05-25-2022 Note HNO ID: [id number] Author: Leela Escoto, DO Service: ? Author [...] pt's father cannot continue to go to [facility] weekly and cannot go to another [...] wors (more content not included)... [facility] 05-25-2022 Miscellaneous Notes Left a message for the pharmacy to call back and let us know. Xochitl Torres MA ----- Message from Leela Escoto DO sent at 05/25/2022 11:40 AM EST ----- Please call [facility] pharmacy and find out when they will be getting tramadol back Leela Escoto, documented in this encounter [facility] 05-25-2022 Nurse Note Pt. Given covid booster with no complaints. Riley Palmer MA documented in this encounter [facility] 05-25-2022 History of Present illness Narrative [...] pt's father cannot continue to go to [facility] weekly and cannot go to another [...] Leela Escoto DO documented in this encounter [facility] 05-22-2022 Miscellaneous Notes patient phones requesting refills as follows: Last seen 02/24/22 . Last refill 11/24/21 . Requested Prescriptions Pending Prescriptions Disp Refills omeprazole (PRILOSEC) 40 mg capsule 90 capsule 1 Sig: Take 1 capsule by mouth once daily. Please review and advise. Adalberto Woods MA documented in this encounter [facility] 05-19-2022 Miscellaneous Notes patient phones requesting refills as follows: Last seen 02/24/22 . Last refill 04/21/22 . Requested Prescriptions Pending Prescriptions Disp Refills traMADol (ULTRAM) 50 mg tablet 60 tablet 0 Sig: Take 1 tablet by mouth twice daily for 30 days. Please review and advise. Adalberto Woods MA documented in this encounter [facility] 04-21-2022 Miscellaneous Notes Patient requesting refills: Last office visit 02/24/2022. Last refill 03/14/2022. Nov 05/25/2022 Requested Prescriptions Pending Prescriptions Disp Refills traMADol (ULTRAM) 50 mg tablet 60 tablet 0 Sig: Take 1 tablet by mouth twice daily for 30 days. Please review and advise. Riley Palmer MA documented in this encounter [facility] 04-12-2022 History of Present illness Narrative [...] follow up in 6 months Elise Heck APRN.CAD DESIGN ENGINEER documented in this encounter [facility] 04-12-2022 Nurse Note Bladder scan obtained 87 ml of urine documented in this encounter [facility] 03-29-2022 History of Present illness Narrative [...] Elise Heck APRN.CNP documented in this encounter [facility] 03-24-2022 Miscellaneous Notes Patient notified of results, verbalizes understanding of instructions. She has an appt 03/29/2022 in [place] with Elise Heck to discuss her inability to empty her bladder. Swati Brown ----- Message from Kelvin Nolasco PA-C sent at 03/24/2022 12:11 PM EST ----- Finish Antibiotics, if no further urinary concerns , may not need the appointment The bacteria is not cause for UTI , but needs to finish the antibiotic any way If much improved can cancel CHRISTINE Talbot, ALEX BELTRE ----- Message ----- From: Chel Matthews [facility] Sent: 03/23/2022 11:08 AM EST To: Kelvin Nolasco PA-C Please review final results for pt seen at [facility]. Hlul placed. Pt was prescribed nitrofurantoin at discharge. Spoke with pt regarding current symptoms. Pt states she feels better. Has appointment with you on 03/31/22. Thank you documented in this encounter [facility] 03-23-2022 Miscellaneous Notes Dior Cee RNmarina manager for [facility] calling and patient was to get ER follow up appt in 3 days from [place]. [place] cath in place and taking antibiotics. No availability, and she had one booked in [place] next week on Sunday, but offered Elise Heck on Sunday in [place] and she took the appt. Patient aware and will be here. documented in this encounter [facility] 03-22-2022 Note Patient Outreach (AG FAMPLE) DIOR CARVAJAL ([id number]) 1965 F Date Time Provider Department 03/22/22 RILEY PALMER During your visit today, we recorded the following information about you: Riley Palmer MA 03/22/2022 9:16 AM Signed ED Follow Up: Patient discharged from [facility] ED on 03/20/2022. 1. How are [...] you able to contact the office or supervisor [place] provider prior to your ED visit? Not [...] Unknown Date Reviewed: 03/20/2022 Reviewed by: Pau [place], RN - Fully Assessed Reason for Visit: [...] by RILEY PALMER on 03/22/22 [facility] 03-22-2022 Note HNO ID: [id number] Author: Riley Palmer MA Service: ? Author Type: Card Tape Converter Operator Type: Progress Notes Filed: 03/22/2022 9:16 AM Note Text: ED Follow Up: Patient discharged from [facility] ED on 03/20/2022. 1. How are [...] you able to contact the office or supervisor [place] provider prior to your ED visit? Not applicable 5. Is there anything else I can do for you today? Not applicable Tried contacting patient several times the mail box is full and cannot accept any messages at this time. Riley Palmer MA [facility] 03-22-2022 History of Present illness Narrative ED Follow Up: Patient discharged from [facility] ED on 03/20/2022. 1. How are [...] you able to contact the office or supervisor [place] provider prior to your ED visit? Not applicable 5. Is there anything else I can do for you today? Not applicable Tried contacting patient several times the mail box is full and cannot accept any messages at this time. Riley Palmer MA documented in this encounter [facility] 03-14-2022 Miscellaneous Notes Patient requesting refills as follows: Last Office Visit 12/02/21. Last Refill 02/14/22. Requested Prescriptions Pending Prescriptions Disp Refills traMADol (ULTRAM) 50 mg tablet 60 tablet 0 Sig: Take 1 tablet by mouth twice daily for 30 days. Please review and advise. Xochitl Torres MA documented in this encounter [facility] 02-24-2022 Note HNO ID: [id number] Author: Leela Escoto, DO Service: ? Author [...] There (more content not included)... [facility] 02-24-2022 History of Present illness Narrative Subjective [...] Leela Escoto DO documented in this encounter [facility] 02-14-2022 Miscellaneous Notes Patient requesting refills [...] Xochitl Torres MA documented in this encounter [facility] 01-11-2022 Miscellaneous Notes Pt. requesting refills: [...] mouth once daily. Please review and advise. iRley Palmer MA documented in this encounter [facility] 12-29-2021 Miscellaneous Notes patient phones requesting refills as follows: Last seen 12/02/21 . Last refill 09/29/21 . Requested Prescriptions Pending Prescriptions Disp Refills mirabegron (MYRBETRIQ) 25 mg Tb24 90 tablet 1 Sig: Take 1 tablet by mouth once daily. Please review and advise. Adalberto Woods MA documented in this encounter [facility] 12-14-2021 Miscellaneous Notes Pt. requesting refills: Last office visit 12/02/21. Last refill 11/14/2021 nov 02/24/22 Requested Prescriptions Pending Prescriptions Disp Refills traMADol (ULTRAM) 50 mg tablet 60 tablet 0 Sig: Take 1 tablet by mouth twice daily for 30 days. Please review and advise. Riley Palmer MA documented in this encounter [facility] 12-02-2021 Note HNO ID: [id number] Author: Leela Escoto, DO Service: ? Author Type: Physician Type: Progress Notes Filed: 12/17/2021 8:31 PM Note Text: SUBJECTIVE: 56 year old female for annual routine checkup. I have fully reviewed the past medical, surgical, social and family history and updated the Histories section of [facility]. Pt has history of chronic arthritis [...] join (more content not included)... [facility] 11-24-2021 Miscellaneous Notes patient phones requesting refills as follows: Last seen 08/26/21 . Last refill 05/10/21 . Requested Prescriptions Pending Prescriptions Disp Refills omeprazole (PRILOSEC) 40 mg capsule 90 capsule 1 Sig: Take 1 capsule by mouth once daily. Please review and advise. Adalberto Woods MA documented in this encounter [facility] 11-11-2021 Miscellaneous Notes patient phones requesting refills as follows: Last seen 09/22/21 . Last refill 10/11/21 . Requested Prescriptions Pending Prescriptions Disp Refills traMADol (ULTRAM) 50 mg tablet 60 tablet 0 Sig: Take 1 tablet by mouth twice daily for 30 days. Please review and advise. Adalberto Woods MA documented in this encounter [facility] 10-11-2021 Miscellaneous Notes patient phones requesting refills as follows: Last seen 08/26/21 . Last refill 09/14/21 . Pending Prescriptions Disp Refills TRAMADOL 50 MG TABLET 60 tablet 0 Sig: Take 1 tablet by mouth twice daily for 30 days. ANNA Class: C-IV KEVON: No Please review and advise. Adalberto Woods MA documented in this encounter [facility] 09-29-2021 Miscellaneous Notes Last OV 08/26/21 Apt 12/02/21 Patient phones requesting refills as follows: Pending Prescriptions Disp Refills MIRABEGRON ER 25 MG TABLET,EXTENDED RELEASE 24 HR 90 tablet 1 Sig: Take 1 tablet by mouth once daily. KEVON: No Please review and advise. Carmelita Hummel MA documented in this encounter [facility] 09-27-2021 Miscellaneous Notes Pharmacy requesting refills as follows: Last Office Visit 08/26/21 nov 12/02/21. Last Refill 04/08/21. Pending Prescriptions Disp Refills ATORVASTATIN 20 MG TABLET 90 tablet 1 Sig: Take 1 tablet by mouth once daily. KEVON: No Please review and advise. Xochitl Torres MA documented in this encounter [facility] 09-14-2021 Miscellaneous Notes Patient requesting refills: Last office visit 08/26/2021. Last refill 08/08/2021 nov 12/02/2021 Pending Prescriptions Disp Refills TRAMADOL 50 MG TABLET 60 tablet 0 Sig: Take 1 tablet by mouth twice daily for 30 days. ANNA Class: C-IV KEVON: No Please review and advise. Riley Palmer MA documented in this encounter [facility] 08-08-2021 Miscellaneous Notes Patient requesting refills: Last office visit 05/26/2021 Last refill 07/11/2021 Nov 08/26/2021 Pending Prescriptions Disp Refills TRAMADOL 50 MG TABLET 60 tablet 0 Sig: Take 1 tablet by mouth twice daily for 30 days. ANNA Class: C-IV KEVON: No Please review and advise. Riley Palmer MA documented in this encounter [facility] 07-11-2021 Miscellaneous Notes Last OV 05/26/21 Apt 08/26/21 UDS 11/16/20 Pharmacy calls in requesting the following refill(s): Pending Prescriptions Disp Refills TRAMADOL 50 MG TABLET 60 tablet 0 Sig: Take 1 tablet by mouth twice daily for 30 days. ANNA Class: C-IV KEVON: No Carmelita Hummel MA documented in this encounter [facility] 06-27-2021 Miscellaneous Notes Last OV 05/26/21 Apt 08/26/21 Labs 06/23/21 Patient phones requesting refills as follows: Pending Prescriptions Disp Refills MIRABEGRON ER 25 MG TABLET,EXTENDED RELEASE 24 HR 90 tablet 1 Sig: Take 1 tablet by mouth once daily. KEVON: No Please review and advise. Carmelita Hummel MA documented in this encounter [facility] 06-23-2021 Miscellaneous Notes Patient informed. Xochitl Torres MA ----- Message from Orin Smith MD sent at 06/23/2021 2:04 PM EDT ----- Patient's triglycerides are slightly elevated. Continue to monitor diet. Remaining cholesterol and other labs are fairly unremarkable. [facility] Diagnosis Overactive bladder Hypertonicity of bladder [facility] Diagnosis Osteoarthritis of multiple joints, unspecified osteoarthritis type Chronic neck pain Cervicalgia [facility] Diagnosis Osteoarthritis of multiple joints, unspecified osteoarthritis type Chronic neck pain Cervicalgia [facility] Diagnosis Osteoarthritis of multiple joints, unspecified osteoarthritis type Chronic neck pain Cervicalgia [facility] Diagnosis Pure hypercholesterolemia [facility] Diagnosis Osteoarthritis of multiple joints, unspecified osteoarthritis type Chronic neck pain Cervicalgia [facility] Diagnosis Heartburn [facility] Diagnosis Osteoarthritis of multiple joints, unspecified osteoarthritis type Chronic neck pain Cervicalgia [facility] Diagnosis Overactive bladder Hypertonicity of bladder [facility] Diagnosis Osteoarthritis of multiple joints, unspecified osteoarthritis type Chronic neck pain Cervicalgia Pure hypercholesterolemia [facility]* Diagnosis Osteoarthritis of multiple joints, unspecified osteoarthritis type Chronic neck pain Cervicalgia Essential hypertension Unspecified essential hypertension [facility]* Diagnosis Chronic cervical pain- Primary Cervicalgia Chronic abdominal pain Abdominal pain, unspecified site Smoker Tobacco use disorder [facility] Diagnosis Osteoarthritis of multiple joints, unspecified osteoarthritis type Chronic neck pain Cervicalgia [facility] Diagnosis Urine retention- Primary Retention of urine, unspecified Acute cystitis without hematuria Acute cystitis Urge incontinence [facility] Diagnosis Overactive bladder- Primary Hypertonicity of bladder Urine retention Retention of urine, unspecified Frequent UTI Urinary tract infection, site not specified Atrophic vaginitis Postmenopausal atrophic vaginitis [facility] Diagnosis Osteoarthritis of multiple joints, unspecified osteoarthritis type Chronic neck pain Cervicalgia [facility] Diagnosis Heartburn [facility] Diagnosis Essential hypertension- Primary Unspecified essential hypertension Chronic cervical pain Cervicalgia Grief Adjustment disorder with depressed mood Smoker Tobacco use disorder Encounter for immunization Need for other specified prophylactic vaccination against single bacterial disease documented in this encounter [facility] note* Diagnosis Osteoarthritis of multiple joints, unspecified osteoarthritis type Chronic neck pain Cervicalgia documented in this encounter [facility] note* Diagnosis Osteoarthritis of multiple joints, unspecified osteoarthritis type Chronic neck pain Cervicalgia documented in this encounter [facility] note* Diagnosis Pure hypercholesterolemia documented in this encounter [facility] note* Diagnosis Primary osteoarthritis involving multiple joints- Primary documented in this encounter [facility] note* Diagnosis Essential hypertension- Primary Unspecified essential hypertension Abnormal gait Abnormality of gait Chronic cervical pain Cervicalgia documented in this encounter [facility] note* Diagnosis Pain due to onychomycosis of toenail of right foot- Primary Pain due to onychomycosis of toenail of left foot Aspirin long-term use Encounter for long-term (current) use of aspirin documented in this encounter [facility] note* Diagnosis Essential hypertension- Primary Unspecified essential hypertension Abnormal gait Abnormality of gait Chronic cervical pain Cervicalgia documented in this encounter [facility] note* Diagnosis Osteoarthritis of multiple joints, unspecified osteoarthritis type Chronic neck pain Cervicalgia documented in this encounter [facility] note* Diagnosis Osteoarthritis of multiple joints, unspecified osteoarthritis type- Primary Essential hypertension Unspecified essential hypertension Chronic neck pain Cervicalgia Abnormal gait Abnormality of gait documented in this encounter [facility] note* Diagnosis Osteoarthritis of multiple joints, unspecified osteoarthritis type- Primary Essential hypertension Unspecified essential hypertension Chronic neck pain Cervicalgia Abnormal gait Abnormality of gait documented in this encounter [facility] note* Diagnosis OPENED IN ERROR- Primary To allow closing an encounter opened in error (used in SmartSet) documented in this encounter [facility] note* Diagnosis Osteoarthritis of multiple joints, unspecified osteoarthritis type Chronic neck pain Cervicalgia documented in this encounter [facility] note* Diagnosis Nail dystrophy- Primary Other specified disease of nail Aspirin long-term use Encounter for long-term (current) use of aspirin documented in this encounter [facility] note* Diagnosis Osteoarthritis of multiple joints, unspecified osteoarthritis type- Primary Chronic neck pain Cervicalgia Essential hypertension Unspecified essential hypertension documented in this encounter [facility] note* Diagnosis Nail dystrophy- Primary Other specified disease of nail Aspirin long-term use Encounter for long-term (current) use of aspirin [facility] Diagnosis Osteoarthritis of multiple joints, unspecified osteoarthritis type- Primary Chronic neck pain Cervicalgia Essential hypertension Unspecified essential hypertension [facility] Diagnosis Osteoarthritis of multiple joints, unspecified osteoarthritis type Chronic neck pain Cervicalgia [facility] Diagnosis Osteoarthritis of multiple joints, unspecified osteoarthritis type- Primary Left hip pain Pain in joint, pelvic region and thigh [facility] Diagnosis Nail dystrophy- Primary Other specified disease of nail Aspirin long-term use Encounter for long-term (current) use of aspirin [facility] Diagnosis Osteoarthritis of multiple joints, unspecified osteoarthritis type- Primary Left hip pain Pain in joint, pelvic region and thigh Chronic neck pain Cervicalgia Essential hypertension Unspecified essential hypertension [facility] Diagnosis Leukocytosis, unspecified type- Primary Confusion Unspecified psychosis [facility] Diagnosis Foul smelling urine- Primary Other nonspecific finding on examination of urine [facility] Diagnosis Osteoarthritis of multiple joints, unspecified osteoarthritis type- Primary Essential hypertension Unspecified essential hypertension Chronic cervical pain Cervicalgia [facility] Diagnosis Foul smelling urine- Primary Other nonspecific finding on examination of urine Recurrent UTI Urinary tract infection, site not specified [facility] Diagnosis Brain lesion [G93.9]- Primary Other conditions of brain [facility] Diagnosis Fall, initial encounter- Primary [facility] 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, unspecified site Hemiparesis, unspecified hemiparesis etiology, unspecified laterality (HCC) Mild cognitive impairment Mild cognitive impairment, so stated Cognitive decline Unspecified persistent mental disorders due to conditions classified elsewhere [facility] Diagnosis Astrocytoma (HCC)- Primary Malignant neoplasm of brain, unspecified site [facility] Diagnosis Chronic cervical pain- Primary Cervicalgia documented in this encounter [facility] [facility] Diagnosis Nail dystrophy- Primary Other specified disease of nail Aspirin long-term use Encounter for long-term (current) use of aspirin [facility] Fall, initial encounter- Primary [facility] Diagnosis Osteoarthritis involving multiple joints on both sides of body- Primary [facility] Diagnosis Astrocytoma (HCC) Malignant neoplasm of brain, unspecified site 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, unspecified site Cognitive decline Unspecified persistent mental disorders due to conditions classified elsewhere 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, unspecified site Cognitive decline Unspecified persistent mental disorders due to conditions classified elsewhere [facility] Diagnosis Astrocytoma (HCC) Malignant neoplasm of brain, unspecified site 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, unspecified site Cognitive decline Unspecified persistent mental disorders due to conditions classified elsewhere [facility] Diagnosis Allergy to intravenous contrast media- [...] (HCC) Quadriplegia, unspecified [facility] 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, unspecified site [facility] Diagnosis Allergy to intravenous contrast media Allergy, unspecified not elsewhere classified 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, unspecified site Mild cognitive impairment Mild cognitive impairment, so stated Cognitive decline Unspecified persistent mental disorders due to conditions classified elsewhere [facility] Diagnosis Acute cystitis without hematuria- Primary Acute cystitis [facility] Diagnosis Allergy to intravenous contrast media Allergy, unspecified not elsewhere classified 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, unspecified site Mild cognitive impairment Mild cognitive impairment, so stated Cognitive decline Unspecified persistent mental disorders due to conditions classified elsewhere [facility] Diagnosis Brain tumor (HCC)- Primary Neoplasm of unspecified nature of brain [facility] Diagnosis Cerebral infarction due to [...] Other postprocedural status [facility] Diagnosis Allergy to intravenous contrast [...] (HCC) Quadriplegia, unspecified [facility] Diagnosis Astrocytoma brain tumor (HCC) Malignant [...] encounter for fracture [facility] Diagnosis Hyperlipidemia, unspecified hyperlipidemia type- Primary [...] (HCC) Quadriplegia, unspecified [facility] 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, unspecified site documented in this encounter [facility] note* 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 [...] Spasm of muscle documented in this encounter [facility] noteNo assessment information availableWUniversity Hospitals Health System Work Phone: Evaluation note* 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, unspecified site documented in this encounter [facility] note* Diagnosis Spasticity- Primary Abnormal involuntary movements 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, unspecified site documented in this encounter [facility] note* 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, unspecified site [facility] 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, unspecified site documented in this encounter [facility] note* 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 Unspecified monoplegia Spasticity Abnormal involuntary movements History of brain tumor Personal history of other disorders of nervous system and sense organs History of stroke Transient ischemic attack (TIA), and cerebral infarction without residual deficits documented in this encounter [facility] note* 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, unspecified site Spasticity Abnormal involuntary movements Cognitive decline Unspecified persistent mental disorders due to conditions classified elsewhere documented in this encounter [facility] note* Diagnosis Glioblastoma (HCC)- Primary Malignant neoplasm of brain, unspecified site documented in this encounter [facility] for referral (narrative)* Diagnostic Procedure Only (Routine) [...] VIEWS Mini Whyte MD [address] [place] [address] Xr Imaging [facility] Referral ID Status Reason Start Date Expiration Date Visits Requested Visits Authorized [id number] New Request Auto-Generat ed Referral 4 04/03/2025 [...] Quadriplegia (HCC) Procedures CONSULT TO NEUROLOGY OFFICE/OUTPATIENT [facility] 60 MINUTES Mini Whyte MD [address] [address] Referral ID Status Reason Start Date Expiration Date Visits Requested Visits Authorized [id number] Authorized PCP Requested Referral 4 03/04/2025 1 1 * Consult, Test, Treat (Routine) - Authorized Specialty Diagnoses / Procedures Referred By Contac t Referred To Contact [facility] [place] Diagnoses Allergy to intravenous contrast media Anaplastic astrocytoma (HCC) Mild cognitive impairment Cognitive decline Occlusion and stenosis of unspecified carotid artery Pathological fracture, other site, initial encounter for fracture Injury of cervical spinal cord, sequela (HCC) Quadriplegia (HCC) Procedures [facility]SULT TO [facility] OFFICE/OUTPATIENT [facility] 60 MINUTES Mini Whyte MD [address] [address] [place] [address] [place] [address] Referral ID Status Reason Start Date Expiration Date Visits Requested Visits Authorized [id number] Authorized PCP Requested Referral 4 03/04/2025 1 [...] MDM 60 MINUTES Mini Whyte MD [address] [place] [address] [facility] [address] [place] [address] Referral ID Status Reason Start Date Expiration Date Visits Requested Visits Authorized [id number] Authorized PCP Requested Referral 4 03/04/2025 1 [...] W/O & W/CONTR MATRL Mini Whyte MD [address] [place] [id number] Mr [facility] [place] [address] Referral ID Status Reason Start Date Expiration Date Visits Requested Visits Authorized [id number] New Request Auto-Generat ed Referral 4 04/03/2025 [...] MRA, NECK; W/O CONTRAST Mini Whyte MD [address] [place] [address] Mr Imaging [place] [address] Referral ID Status Reason Start Date Expiration Date Visits Requested Visits Authorized [id number] New Request Auto-Generat ed Referral 4 04/03/2025 [...] CONTRAST Mini Whyte MD [address] [place] [address] Mr Imaging [place] [address] Referral ID Status Reason Start Date Expiration Date Visits Requested Visits Authorized [id number] New Request Auto-Generat ed Referral 4 04/03/2025 1 1 [facility] (narrative)No reason for referral information availableWUniversity Hospitals Health System Work Phone: Reason for visit Narrative* Diagnostic [...] VIEWS Mini Whyte MD [address] [place] [phone] Phone: tel: fax: XR IMAGING [place] [address] Referral ID Status Reason Start Date Expiration Date V isits Requested Visits Authorized [id number] Closed Auto-Generate d Referral 03/04/2024 04/03/2025 1 1 [facility] for visit Narrative* MRI/CT (Routine) - Closed Specialty Diagnoses / Procedures Referred By Contac t Referred To Contact MR IMAGING Diagnoses Anaplastic astrocytoma (HCC) Procedures MRI BRAIN WO/W IVCON MRI BRAIN BRAIN STEM W/O W/CONTRAST MATERIAL Mini Whyte MD [address] [place] [address] Phone: tel: fax: MR IMAGING [place] [address] Referral ID Status Reason Start Date Expiration Date V isits Requested Visits Authorized [id number] Closed Auto-Generate d Referral 05/28/2024 06/27/2025 1 1 [facility] for visit Narrative* MRI/CT (Routine) - Closed Specialty Diagnoses / Procedures Referred By Contac t Referred To Contact MR IMAGING Diagnoses Astrocytoma brain tumor (HCC) Procedures MRI BRAIN WO/W IVCON MRI BRAIN BRAIN STEM W/O W/CONTRAST MATERIAL Mini Whyte MD [address] [place] [address] Phone: tel: fax: MR IMAGING [place] [address] Referral ID Status Reason Start Date Expiration Date V isits Requested Visits Authorized [id number] Closed Auto-Generate d Referral 08/05/2024 09/04/2025 1 1 [facility] Summary Purpose Family History No Family [...] MIN Mini Whyte MD [address] [address] [facility] [address] [place] [address] Referral ID Status Reason Start Date Expiration Date Visits Requested Visits Authorized [id number] Ref Not Required PCP Requested Referral 01/20/2025 1 3 Specialty Diagnoses / Procedures Referred By Contac t Referred To Contact MR IMAGING Diagnoses Astrocytoma (HCC) Procedures MRI BRAIN WO/W IVCON MRI BRAIN BRAIN STEM W/O W/CONTRAST MATERIAL Mini Whyte MD [address] [place] [phone] Mr Imaging [facility]95 Referral ID Status Reason Start Date Expiration Date Visits Requested Visits Authorized [id number] Authorized Auto-Generat ed Referral 02/21/2025 1 1 Specialty Diagnoses / Procedures Referred By Contac t Referred To Contact MR IMAGING Diagnoses Anaplastic astrocytoma (HCC) Cognitive decline Procedures MRI BRAIN WO IVCON MRI BRAIN BRAIN STEM W/O CONTRAST MATERIAL Mini Whyte MD [address] [place] [phone] Mr Imaging [facility]95 Referral ID Status Reason Start Date Expiration Date Visits Requested Visits Authorized [id number] New Request Auto-Generat ed Referral 02/28/2024 03/29/2025 1 1 Specialty Diagnoses / Procedures Referred By Contac t Referred To Contact MR IMAGING Diagnoses Astrocytoma brain tumor (HCC) Procedures MRI BRAIN WO/W IVCON MRI BRAIN BRAIN STEM W/O W/CONTRAST MATERIAL Mini Whyte MD [address] [address] Mr Imaging [facility]95 Referral ID Status Reason Start Date Expiration Date Visits Requested Visits Authorized [id number] Authorized Auto-Generat ed Referral 04/03/2025 1 1 Chief Complaint and Reason for Visit Chief Complaint Admit Date LABWORK March 27, 2024 7: 20am GROUP HOME LAB WORK March 28, 2024 4:00am GROUP HOME LAB WORK March 31, 2024 5:00am COGNITIVE DECLINE, POST SPINAL CORD SURG JOSEPHINE April 29, 2024 11:28am Chief Complaint Admit Date COGNITIVE DECLINE, POST SPINAL CORD SURG JOSEPHINE April 29, 2024 11:28am LABWORK August 07, 2024 5:00a m LABWORK August 08, 2024 5:00a m GROUP HOME LAB WORK August 13, 2024 4:0 0am Chief Complaint Admit Date GROUP HOME LAB WORK November 18, 2024 5:00am LAB WORK November 19, 2024 3: 30pm GROUP HOME LAB WORK December 02 5:00am Additional Source Comments INFORMATION SOURCE (unrecogn ized section and content) DATE CREATED AUTHOR 06/22/2020 [facility] DATE CREATED AUTHOR AUTHOR'S ORGANIZ ATION 01/21/2022 [facility] DATE CREATED AUTHOR AUTHOR'S ORGANIZ ATION 08/07/2022 [facility] DATE CREATED AUTHOR AUTHOR'S ORGANIZ ATION 02/02/2025 [facility] DATE CREATED AUTHOR AUTHOR'S ORGANIZ ATION 02/05/2025 [facility] Source Comments (unrecognize d section and content) In the event this informatio n is protected by the Federal Confidentiality of Alcohol and Drug Abuse Patient Records regulations: The Federal rules restrict any use of the information to criminally investigate or prosecute any alcohol or drug abuse patient.[facility] HospitalIn the event this information is protected by the Federal Confidentiality of Alcohol and Drug Abuse Patient Records regulations: The Federal rules restrict any use of the information to criminally investigate or prosecute any alcohol or drug abuse patient.[facility] HospitalIn the event this information is protected by the Federal Confidentiality of Alcohol and Drug Abuse Patient Records regulations: The Federal rules restrict any use of the information to criminally investigate or prosecute any alcohol or drug abuse patient.[facility] HospitalIn the event this information is protected by the Federal Confidentiality of Alcohol and Drug Abuse Patient Records regulations: The Federal rules restrict any use of the information to criminally investigate or prosecute any alcohol or drug abuse patient.[facility] HospitalIn the event this information is protected by the Federal Confidentiality of Alcohol and Drug Abuse Patient Records regulations: The Federal rules restrict any use of the information to criminally investigate or prosecute any alcohol or drug abuse patient.[facility] HospitalIn the event this information is protected by the Federal Confidentiality of Alcohol and Drug Abuse Patient Records regulations: The Federal rules restrict any use of the information to criminally investigate or prosecute any alcohol or drug abuse patient.[facility] HospitalIn the event this information is protected by the Federal Confidentiality of Alcohol and Drug Abuse Patient Records regulations: The Federal rules restrict any use of the information to criminally investigate or prosecute any alcohol or drug abuse patient.[facility] HospitalIn the event this information is protected by the Federal Confidentiality of Alcohol and Drug Abuse Patient Records regulations: The Federal rules restrict any use of the information to criminally investigate or prosecute any alcohol or drug abuse patient.[facility] HospitalIn the event this information is protected by the Federal Confidentiality of Alcohol and Drug Abuse Patient Records regulations: The Federal rules restrict any use of the information to criminally investigate or prosecute any alcohol or drug abuse patient.[facility] HospitalIn the event this information is protected by the Federal Confidentiality of Alcohol and Drug Abuse Patient Records regulations: The Federal rules restrict any use of the information to criminally investigate or prosecute any alcohol or drug abuse patient.[facility] HospitalIn the event this information is protected by the Federal Confidentiality of Alcohol and Drug Abuse Patient Records regulations: The Federal rules restrict any use of the information to criminally investigate or prosecute any alcohol or drug abuse patient.[facility] HospitalIn the event this information is protected by the Federal Confidentiality of Alcohol and Drug Abuse Patient Records regulations: The Federal rules restrict any use of the information to criminally investigate or prosecute any alcohol or drug abuse patient.[facility] HospitalIn the event this information is protected by the Federal Confidentiality of Alcohol and Drug Abuse Patient Records regulations: The Federal rules restrict any use of the information to criminally investigate or prosecute any alcohol or drug abuse patient.[facility] HospitalIn the event this information is protected by the Federal Confidentiality of Alcohol and Drug Abuse Patient Records regulations: The Federal rules restrict any use of the information to criminally investigate or prosecute any alcohol or drug abuse patient.[facility] the event this information is protected by the Federal Confidentiality of Alcohol and Drug Abuse Patient Records regulations: The Federal rules restrict any use of the information to criminally investigate or prosecute any alcohol or drug abuse patient.[facility] HospitalIn the event this information is protected by the Federal Confidentiality of Alcohol and Drug Abuse Patient Records regulations: The Federal rules restrict any use of the information to criminally investigate or prosecute any alcohol or drug abuse patient.[facility] HospitalIn the event this information is protected [...] or prosecute any alcohol or drug abuse patient.[facility] HospitalIn the event this information is protected by the Federal Confidentiality of Alcohol and Drug Abuse Patient Records regulations: The Federal rules restrict any use of the information to criminally investigate or prosecute any alcohol or drug abuse patient.[facility] HospitalIn the event this information is protected by the Federal Confidentiality of Alcohol and Drug Abuse Patient Records regulations: The Federal rules restrict any use of the information to criminally investigate or prosecute any alcohol or drug abuse patient.[facility] HospitalIn the event this information is protected by the Federal Confidentiality of Alcohol and Drug Abuse Patient Records regulations: The Federal rules restrict any use of the information to criminally investigate or prosecute any alcohol or drug abuse patient.[facility] HospitalIn the event this information is protected by the Federal Confidentiality of Alcohol and Drug Abuse Patient Records regulations: The Federal rules restrict any use of the information to criminally investigate or prosecute any alcohol or drug abuse patient.[facility] HospitalIn the event this information is protected by the Federal Confidentiality of Alcohol and Drug Abuse Patient Records regulations: The Federal rules restrict any use of the information to criminally investigate or prosecute any alcohol or drug abuse patient.[facility] HospitalIn the event this information is protected by the Federal Confidentiality of Alcohol and Drug Abuse Patient Records regulations: The Federal rules restrict any use of the information to criminally investigate or prosecute any alcohol or drug abuse patient.[facility] HospitalIn the event this information is protected by the Federal Confidentiality of Alcohol and Drug Abuse Patient Records regulations: The Federal rules restrict any use of the information to criminally investigate or prosecute any alcohol or drug abuse patient.[facility] HospitalIn the event this information is protected by the Federal Confidentiality of Alcohol and Drug Abuse Patient Records regulations: The Federal rules restrict any use of the information to criminally investigate or prosecute any alcohol or drug abuse patient.[facility] HospitalIn the event this information is protected by the Federal Confidentiality of Alcohol and Drug Abuse Patient Records regulations: The Federal rules restrict any use of the information to criminally investigate or prosecute any alcohol or drug abuse patient.[facility] HospitalIn the event this information is protected by the Federal Confidentiality of Alcohol and Drug Abuse Patient Records regulations: The Federal rules restrict any use of the information to criminally investigate or prosecute any alcohol or drug abuse patient.[facility] HospitalIn the event this information is protected by the Federal Confidentiality of Alcohol and Drug Abuse Patient Records regulations: The Federal rules restrict any use of the information to criminally investigate or prosecute any alcohol or drug abuse patient.[facility] HospitalIn the event this information is protected by the Federal Confidentiality of Alcohol and Drug Abuse Patient Records regulations: The Federal rules restrict any use of the information to criminally investigate or prosecute any alcohol or drug abuse patient.[facility] HospitalIn the event this information is protected by the Federal Confidentiality of Alcohol and Drug Abuse Patient Records regulations: The Federal rules restrict any use of the information to criminally investigate or prosecute any alcohol or drug abuse patient.[facility] HospitalIn the event this information is protected by the Federal Confidentiality of Alcohol and Drug Abuse Patient Records regulations: The Federal rules restrict any use of the information to criminally investigate or prosecute any alcohol or drug abuse patient.[facility] HospitalIn the event this information is protected by the Federal Confidentiality of Alcohol and Drug Abuse Patient Records regulations: The Federal rules restrict any use of the information to criminally investigate or prosecute any alcohol or drug abuse patient.[facility] HospitalIn the event this information is protected by the Federal Confidentiality of Alcohol and Drug Abuse Patient Records regulations: The Federal rules restrict any use of the information to criminally investigate or prosecute any alcohol or drug abuse patient.[facility] HospitalIn the event this information is protected by the Federal Confidentiality of Alcohol and Drug Abuse Patient Records regulations: The Federal rules restrict any use of the information to criminally investigate or prosecute any alcohol or drug abuse patient.[facility] HospitalIn the event this information is protected by the Federal Confidentiality of Alcohol and Drug Abuse Patient Records regulations: The Federal rules restrict any use of the information to criminally investigate or prosecute any alcohol or drug abuse patient.[facility] HospitalIn the event this information is protected by the Federal Confidentiality of Alcohol and Drug Abuse Patient Records regulations: The Federal rules restrict any use of the information to criminally investigate or prosecute any alcohol or drug abuse patient.[facility] HospitalIn the event this information is protected by the Federal Confidentiality of Alcohol and Drug Abuse Patient Records regulations: The Federal rules restrict any use of the information to criminally investigate or prosecute any alcohol or drug abuse patient.[facility] HospitalIn the event this information is protected by the Federal Confidentiality of Alcohol and Drug Abuse Patient Records regulations: The Federal rules restrict any use of the information to criminally investigate or prosecute any alcohol or drug abuse patient.[facility] HospitalIn the event this information is protected by the Federal Confidentiality of Alcohol and Drug Abuse Patient Records regulations: The Federal rules restrict any use of the information to criminally investigate or prosecute any alcohol or drug abuse patient.[facility] HospitalIn the event this information is protected by the Federal Confidentiality of Alcohol and Drug Abuse Patient Records regulations: The Federal rules restrict any use of the information to criminally investigate or prosecute any alcohol or drug abuse patient.[facility] HospitalIn the event this information is protected by the Federal Confidentiality of Alcohol and Drug Abuse Patient Records regulations: The Federal rules restrict any use of the information to criminally investigate or prosecute any alcohol or drug abuse patient.[facility] HospitalIn the event this information is protected by the Federal Confidentiality of Alcohol and Drug Abuse Patient Records regulations: The Federal rules restrict any use of the information to criminally investigate or prosecute any alcohol or drug abuse patient.[facility]In the event this information is protected by the Federal Confidentiality of Alcohol and Drug Abuse Patient Records regulations: The Federal rules restrict any use of the information to criminally investigate or prosecute any alcohol or drug abuse patient.[facility] HospitalIn the event this information is protected by the Federal Confidentiality of Alcohol and Drug Abuse Patient Records regulations: The Federal rules restrict any use of the information to criminally investigate or prosecute any alcohol or drug abuse patient.[facility] HospitalIn the event this information is protected by the Federal Confidentiality of Alcohol and Drug Abuse Patient Records regulations: The Federal rules restrict any use of the information to criminally investigate or prosecute any alcohol or drug abuse patient.[facility] HospitalIn the event this information is protected by the Federal Confidentiality of Alcohol and Drug Abuse Patient Records regulations: The Federal rules restrict any use of the information to criminally investigate or prosecute any alcohol or drug abuse patient.[facility] HospitalIn the event this information is protected by the Federal Confidentiality of Alcohol and Drug Abuse Patient Records regulations: The Federal rules restrict any use of the information to criminally investigate or prosecute any alcohol or drug abuse patient.[facility] HospitalIn the event this information is protected by the Federal Confidentiality of Alcohol and Drug Abuse Patient Records regulations: The Federal rules restrict any use of the information to criminally investigate or prosecute any alcohol or drug abuse patient.[facility] HospitalIn the event this information is protected by the Federal Confidentiality of Alcohol and Drug Abuse Patient Records regulations: The Federal rules restrict any use of the information to criminally investigate or prosecute any alcohol or drug abuse patient.[facility] HospitalIn the event this information is protected by the Federal Confidentiality of Alcohol and Drug Abuse Patient Records regulations: The Federal rules restrict any use of the information to criminally investigate or prosecute any alcohol or drug abuse patient.[facility] HospitalIn the event this information is protected by the Federal Confidentiality of Alcohol and Drug Abuse Patient Records regulations: The Federal rules restrict any use of the information to criminally investigate or prosecute any alcohol or drug abuse patient.[facility] HospitalIn the event this information is protected by the Federal Confidentiality of Alcohol and Drug Abuse Patient Records regulations: The Federal rules restrict any use of the information to criminally investigate or prosecute any alcohol or drug abuse patient.[facility] HospitalIn the event this information is protected by the Federal Confidentiality of Alcohol and Drug Abuse Patient Records regulations: The Federal rules restrict any use of the information to criminally investigate or prosecute any alcohol or drug abuse patient.[facility] HospitalIn the event this information is protected by the Federal Confidentiality of Alcohol and Drug Abuse Patient Records regulations: The Federal rules restrict any use of the information to criminally investigate or prosecute any alcohol or drug abuse patient.[facility] HospitalIn the event this information is protected by the Federal Confidentiality of Alcohol and Drug Abuse Patient Records regulations: The Federal rules restrict any use of the information to criminally investigate or prosecute any alcohol or drug abuse patient.[facility] HospitalIn the event this information is protected by the Federal Confidentiality of Alcohol and Drug Abuse Patient Records regulations: The Federal rules restrict any use of the information to criminally investigate or prosecute any alcohol or drug abuse patient.[facility] HospitalIn the event this information is protected by the Federal Confidentiality of Alcohol and Drug Abuse Patient Records regulations: The Federal rules restrict any use of the information to criminally investigate or prosecute any alcohol or drug abuse patient.[facility] HospitalIn the event this information is protected by the Federal Confidentiality of Alcohol and Drug Abuse Patient Records regulations: The Federal rules restrict any use of the information to criminally investigate or prosecute any alcohol or drug abuse patient.[facility] HospitalIn the event this information is protected by the Federal Confidentiality of Alcohol and Drug Abuse Patient Records regulations: The Federal rules restrict any use of the information to criminally investigate or prosecute any alcohol or drug abuse patient.[facility] HospitalIn the event this information is protected by the Federal Confidentiality of Alcohol and Drug Abuse Patient Records regulations: The Federal rules restrict any use of the information to criminally investigate or prosecute any alcohol or drug abuse patient.[facility] HospitalIn the event this information is protected by the Federal Confidentiality of Alcohol and Drug Abuse Patient Records regulations: The Federal rules restrict any use of the information to criminally investigate or prosecute any alcohol or drug abuse patient.[facility] HospitalIn the event this information is protected by the Federal Confidentiality of Alcohol and Drug Abuse Patient Records regulations: The Federal rules restrict any use of the information to criminally investigate or prosecute any alcohol or drug abuse patient.[facility] HospitalIn the event this information is protected by the Federal Confidentiality of Alcohol and Drug Abuse Patient Records regulations: The Federal rules restrict any use of the information to criminally investigate or prosecute any alcohol or drug abuse patient.[facility] the event this information is protected by the Federal Confidentiality of Alcohol and Drug Abuse Patient Records regulations: The Federal rules restrict any use of the information to criminally investigate or prosecute any alcohol or drug abuse patient.[facility] HospitalIn the event this information is protected by the Federal Confidentiality of Alcohol and Drug Abuse Patient Records regulations: The Federal rules restrict any use of the information to criminally investigate or prosecute any alcohol or drug abuse patient.[facility] HospitalIn the event this information is protected [...] or prosecute any alcohol or drug abuse patient.[facility] HospitalIn the event this information is protected by the Federal Confidentiality of Alcohol and Drug Abuse Patient Records regulations: The Federal rules restrict any use of the information to criminally investigate or prosecute any alcohol or drug abuse patient.[facility] HospitalIn the event this information is protected by the Federal Confidentiality of Alcohol and Drug Abuse Patient Records regulations: The Federal rules restrict any use of the information to criminally investigate or prosecute any alcohol or drug abuse patient.[facility] HospitalIn the event this information is protected by the Federal Confidentiality of Alcohol and Drug Abuse Patient Records regulations: The Federal rules restrict any use of the information to criminally investigate or prosecute any alcohol or drug abuse patient.[facility] HospitalIn the event this information is protected by the Federal Confidentiality of Alcohol and Drug Abuse Patient Records regulations: The Federal rules restrict any use of the information to criminally investigate or prosecute any alcohol or drug abuse patient.[facility] HospitalIn the event this information is protected by the Federal Confidentiality of Alcohol and Drug Abuse Patient Records regulations: The Federal rules restrict any use of the information to criminally investigate or prosecute any alcohol or drug abuse patient.[facility] HospitalIn the event this information is protected by the Federal Confidentiality of Alcohol and Drug Abuse Patient Records regulations: The Federal rules restrict any use of the information to criminally investigate or prosecute any alcohol or drug abuse patient.[facility] HospitalIn the event this information is protected by the Federal Confidentiality of Alcohol and Drug Abuse Patient Records regulations: The Federal rules restrict any use of the information to criminally investigate or prosecute any alcohol or drug abuse patient.[facility] HospitalIn the event this information is protected by the Federal Confidentiality of Alcohol and Drug Abuse Patient Records regulations: The Federal rules restrict any use of the information to criminally investigate or prosecute any alcohol or drug abuse patient.[facility] HospitalIn the event this information is protected by the Federal Confidentiality of Alcohol and Drug Abuse Patient Records regulations: The Federal rules restrict any use of the information to criminally investigate or prosecute any alcohol or drug abuse patient.[facility] HospitalIn the event this information is protected by the Federal Confidentiality of Alcohol and Drug Abuse Patient Records regulations: The Federal rules restrict any use of the information to criminally investigate or prosecute any alcohol or drug abuse patient.[facility] HospitalIn the event this information is protected by the Federal Confidentiality of Alcohol and Drug Abuse Patient Records regulations: The Federal rules restrict any use of the information to criminally investigate or prosecute any alcohol or drug abuse patient.[facility] HospitalIn the event this information is protected by the Federal Confidentiality of Alcohol and Drug Abuse Patient Records regulations: The Federal rules restrict any use of the information to criminally investigate or prosecute any alcohol or drug abuse patient.[facility] HospitalIn the event this information is protected by the Federal Confidentiality of Alcohol and Drug Abuse Patient Records regulations: The Federal rules restrict any use of the information to criminally investigate or prosecute any alcohol or drug abuse patient.[facility] HospitalIn the event this information is protected by the Federal Confidentiality of Alcohol and Drug Abuse Patient Records regulations: The Federal rules restrict any use of the information to criminally investigate or prosecute any alcohol or drug abuse patient.[facility] HospitalIn the event this information is protected by the Federal Confidentiality of Alcohol and Drug Abuse Patient Records regulations: The Federal rules restrict any use of the information to criminally investigate or prosecute any alcohol or drug abuse patient.[facility] HospitalIn the event this information is protected by the Federal Confidentiality of Alcohol and Drug Abuse Patient Records regulations: The Federal rules restrict any use of the information to criminally investigate or prosecute any alcohol or drug abuse patient.[facility] HospitalIn the event this information is protected by the Federal Confidentiality of Alcohol and Drug Abuse Patient Records regulations: The Federal rules restrict any use of the information to criminally investigate or prosecute any alcohol or drug abuse patient.[facility] HospitalIn the event this information is protected by the Federal Confidentiality of Alcohol and Drug Abuse Patient Records regulations: The Federal rules restrict any use of the information to criminally investigate or prosecute any alcohol or drug abuse patient.[facility] HospitalIn the event this information is protected by the Federal Confidentiality of Alcohol and Drug Abuse Patient Records regulations: The Federal rules restrict any use of the information to criminally investigate or prosecute any alcohol or drug abuse patient.[facility] HospitalIn the event this information is protected by the Federal Confidentiality of Alcohol and Drug Abuse Patient Records regulations: The Federal rules restrict any use of the information to criminally investigate or prosecute any alcohol or drug abuse patient.[facility] HospitalIn the event this information is protected by the Federal Confidentiality of Alcohol and Drug Abuse Patient Records regulations: The Federal rules restrict any use of the information to criminally investigate or prosecute any alcohol or drug abuse patient.[facility] HospitalIn the event this information is protected by the Federal Confidentiality of Alcohol and Drug Abuse Patient Records regulations: The Federal rules restrict any use of the information to criminally investigate or prosecute any alcohol or drug abuse patient.[facility] HospitalIn the event this information is protected by the Federal Confidentiality of Alcohol and Drug Abuse Patient Records regulations: The Federal rules restrict any use of the information to criminally investigate or prosecute any alcohol or drug abuse patient.[facility] HospitalIn the event this information is protected by the Federal Confidentiality of Alcohol and Drug Abuse Patient Records regulations: The Federal rules restrict any use of the information to criminally investigate or prosecute any alcohol or drug abuse patient.[facility] HospitalIn the event this information is protected by the Federal Confidentiality of Alcohol and Drug Abuse Patient Records regulations: The Federal rules restrict any use of the information to criminally investigate or prosecute any alcohol or drug abuse patient.[facility] HospitalIn the event this information is protected by the Federal Confidentiality of Alcohol and Drug Abuse Patient Records regulations: The Federal rules restrict any use of the information to criminally investigate or prosecute any alcohol or drug abuse patient.[facility] HospitalIn the event this information is protected by the Federal Confidentiality of Alcohol and Drug Abuse Patient Records regulations: The Federal rules restrict any use of the information to criminally investigate or prosecute any alcohol or drug abuse patient.[facility] HospitalIn the event this information is protected by the Federal Confidentiality of Alcohol and Drug Abuse Patient Records regulations: The Federal rules restrict any use of the information to criminally investigate or prosecute any alcohol or drug abuse patient.[facility] HospitalIn the event this information is protected by the Federal Confidentiality of Alcohol and Drug Abuse Patient Records regulations: The Federal rules restrict any use of the information to criminally investigate or prosecute any alcohol or drug abuse patient.[facility] HospitalIn the event this information is protected by the Federal Confidentiality of Alcohol and Drug Abuse Patient Records regulations: The Federal rules restrict any use of the information to criminally investigate or prosecute any alcohol or drug abuse patient.[facility] HospitalIn the event this information is protected by the Federal Confidentiality of Alcohol and Drug Abuse Patient Records regulations: The Federal rules restrict any use of the information to criminally investigate or prosecute any alcohol or drug abuse patient.[facility] HospitalIn the event this information is protected by the Federal Confidentiality of Alcohol and Drug Abuse Patient Records regulations: The Federal rules restrict any use of the information to criminally investigate or prosecute any alcohol or drug abuse patient.[facility] HospitalIn the event this information is protected by the Federal Confidentiality of Alcohol and Drug Abuse Patient Records regulations: The Federal rules restrict any use of the information to criminally investigate or prosecute any alcohol or drug abuse patient.[facility] HospitalIn the event this information is protected by the Federal Confidentiality of Alcohol and Drug Abuse Patient Records regulations: The Federal rules restrict any use of the information to criminally investigate or prosecute any alcohol or drug abuse patient.[facility] HospitalIn the event this information is protected by the Federal Confidentiality of Alcohol and Drug Abuse Patient Records regulations: The Federal rules restrict any use of the information to criminally investigate or prosecute any alcohol or drug abuse patient.[facility] HospitalIn the event this information is protected by the Federal Confidentiality of Alcohol and Drug Abuse Patient Records regulations: The Federal rules restrict any use of the information to criminally investigate or prosecute any alcohol or drug abuse patient.[facility] HospitalIn the event this information is protected by the Federal Confidentiality of Alcohol and Drug Abuse Patient Records regulations: The Federal rules restrict any use of the information to criminally investigate or prosecute any alcohol or drug abuse patient.[facility] HospitalIn the event this information is protected by the Federal Confidentiality of Alcohol and Drug Abuse Patient Records regulations: The Federal rules restrict any use of the information to criminally investigate or prosecute any alcohol or drug abuse patient.[facility] HospitalIn the event this information is protected by the Federal Confidentiality of Alcohol and Drug Abuse Patient Records regulations: The Federal rules restrict any use of the information to criminally investigate or prosecute any alcohol or drug abuse patient.[facility] HospitalIn the event this information is protected by the Federal Confidentiality of Alcohol and Drug Abuse Patient Records regulations: The Federal rules restrict any use of the information to criminally investigate or prosecute any alcohol or drug abuse patient.[facility] HospitalIn the event this information is protected by the Federal Confidentiality of Alcohol and Drug Abuse Patient Records regulations: The Federal rules restrict any use of the information to criminally investigate or prosecute any alcohol or drug abuse patient.[facility] HospitalIn the event this information is protected by the Federal Confidentiality of Alcohol and Drug Abuse Patient Records regulations: The Federal rules restrict any use of the information to criminally investigate or prosecute any alcohol or drug abuse patient.[facility] HospitalIn the event this information is protected by the Federal Confidentiality of Alcohol and Drug Abuse Patient Records regulations: The Federal rules restrict any use of the information to criminally investigate or prosecute any alcohol or drug abuse patient.[facility] HospitalIn the event this information is protected by the Federal Confidentiality of Alcohol and Drug Abuse Patient Records regulations: The Federal rules restrict any use of the information to criminally investigate or prosecute any alcohol or drug abuse patient.[facility] HospitalIn the event this information is protected by the Federal Confidentiality of Alcohol and Drug Abuse Patient Records regulations: The Federal rules restrict any use of the information to criminally investigate or prosecute any alcohol or drug abuse patient.[facility] HospitalIn the event this information is protected by the Federal Confidentiality of Alcohol and Drug Abuse Patient Records regulations: The Federal rules restrict any use of the information to criminally investigate or prosecute any alcohol or drug abuse patient.[facility] the event this information is protected by the Federal Confidentiality of Alcohol and Drug Abuse Patient Records regulations: The Federal rules restrict any use of the information to criminally investigate or prosecute any alcohol or drug abuse patient.[facility] HospitalIn the event this information is protected by the Federal Confidentiality of Alcohol and Drug Abuse Patient Records regulations: The Federal rules restrict any use of the information to criminally investigate or prosecute any alcohol or drug abuse patient.[facility] HospitalIn the event this information is protected [...] or prosecute any alcohol or drug abuse patient.[facility] HospitalIn the event this information is protected by the Federal Confidentiality of Alcohol and Drug Abuse Patient Records regulations: The Federal rules restrict any use of the information to criminally investigate or prosecute any alcohol or drug abuse patient.[facility] HospitalIn the event this information is protected by the Federal Confidentiality of Alcohol and Drug Abuse Patient Records regulations: The Federal rules restrict any use of the information to criminally investigate or prosecute any alcohol or drug abuse patient.[facility] HospitalIn the event this information is protected by the Federal Confidentiality of Alcohol and Drug Abuse Patient Records regulations: The Federal rules restrict any use of the information to criminally investigate or prosecute any alcohol or drug abuse patient.[facility] HospitalIn the event this information is protected by the Federal Confidentiality of Alcohol and Drug Abuse Patient Records regulations: The Federal rules restrict any use of the information to criminally investigate or prosecute any alcohol or drug abuse patient.[facility] HospitalIn the event this information is protected by the Federal Confidentiality of Alcohol and Drug Abuse Patient Records regulations: The Federal rules restrict any use of the information to criminally investigate or prosecute any alcohol or drug abuse patient.[facility] HospitalIn the event this information is protected by the Federal Confidentiality of Alcohol and Drug Abuse Patient Records regulations: The Federal rules restrict any use of the information to criminally investigate or prosecute any alcohol or drug abuse patient.[facility] HospitalIn the event this information is protected by the Federal Confidentiality of Alcohol and Drug Abuse Patient Records regulations: The Federal rules restrict any use of the information to criminally investigate or prosecute any alcohol or drug abuse patient.[facility] HospitalIn the event this information is protected by the Federal Confidentiality of Alcohol and Drug Abuse Patient Records regulations: The Federal rules restrict any use of the information to criminally investigate or prosecute any alcohol or drug abuse patient.[facility] HospitalIn the event this information is protected by the Federal Confidentiality of Alcohol and Drug Abuse Patient Records regulations: The Federal rules restrict any use of the information to criminally investigate or prosecute any alcohol or drug abuse patient.[facility]In the event this information is protected by the Federal Confidentiality of Alcohol and Drug Abuse Patient Records regulations: The Federal rules restrict any use of the information to criminally investigate or prosecute any alcohol or drug abuse patient.[facility] HospitalIn the event this information is protected by the Federal Confidentiality of Alcohol and Drug Abuse Patient Records regulations: The Federal rules restrict any use of the information to criminally investigate or prosecute any alcohol or drug abuse patient.[facility] HospitalIn the event this information is protected by the Federal Confidentiality of Alcohol and Drug Abuse Patient Records regulations: The Federal rules restrict any use of the information to criminally investigate or prosecute any alcohol or drug abuse patient.[facility] HospitalIn the event this information is protected by the Federal Confidentiality of Alcohol and Drug Abuse Patient Records regulations: The Federal rules restrict any use of the information to criminally investigate or prosecute any alcohol or drug abuse patient.[facility] HospitalIn the event this information is protected by the Federal Confidentiality of Alcohol and Drug Abuse Patient Records regulations: The Federal rules restrict any use of the information to criminally investigate or prosecute any alcohol or drug abuse patient.[facility] HospitalIn the event this information is protected by the Federal Confidentiality of Alcohol and Drug Abuse Patient Records regulations: The Federal rules restrict any use of the information to criminally investigate or prosecute any alcohol or drug abuse patient.[facility] HospitalIn the event this information is protected by the Federal Confidentiality of Alcohol and Drug Abuse Patient Records regulations: The Federal rules restrict any use of the information to criminally investigate or prosecute any alcohol or drug abuse patient.[facility] HospitalIn the event this information is protected by the Federal Confidentiality of Alcohol and Drug Abuse Patient Records regulations: The Federal rules restrict any use of the information to criminally investigate or prosecute any alcohol or drug abuse patient.[facility] HospitalIn the event this information is protected by the Federal Confidentiality of Alcohol and Drug Abuse Patient Records regulations: The Federal rules restrict any use of the information to criminally investigate or prosecute any alcohol or drug abuse patient.[facility] HospitalIn the event this information is protected by the Federal Confidentiality of Alcohol and Drug Abuse Patient Records regulations: The Federal rules restrict any use of the information to criminally investigate or prosecute any alcohol or drug abuse patient.[facility] Reason for Visit (unrecogniz ed section [...] MATERIAL Mini Whyte MD [address] [place] [address] [facility] [place] [address] Referral ID Status Reason Start Date Expiration Date V isits Requested Visits Authorized [id number] Closed Auto-Generate d Referral 01/23/2024 02/21/2025 1 1 Reason Comments Established Patient Reason Comments Future Appointment New Patient [place] Any Reason Comments Orders Premedication for co ntrast allergy Reason Comments Pathology slides and records requested Reason Comments Path slides not available Reason Comments MARYJANE 2-3 weeks Reason Comments MRA 04/02/24- facility aware Reason Comments Facility change to [facility] 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 Confirm appt for [...] STEM W/O W/CONTRAST MATERIAL Mini Whyte MD [address] [address] Phone: tel: fax: [facility] [place] [address] Referral ID Status Reason Start Date Expiration Date V isits Requested Visits Authorized [id number] Closed Auto-Generate d Referral 03/04/2024 04/03/2025 1 [...] MDM 60 MINUTES Mini Whyte MD [address] [place] [address] Phone: tel: fax: [facility] [address] [place] [address] Phone: tel: Referral ID Status Reason Start Date Expiration Date V isits Requested Visits Authorized [id number] Closed PCP Requested Referral 03/04/2024 03/04/2025 1 1 Reason Comments MARYJANE 4 weeks Reason Comments Established Patient Reason Comments MARYJANE 07/2024 Reason Comments Established Patient Reason Comments [facility] Welcome Letter Mailed Reason Comments Spasticity Specialty Diagnoses / Procedures Referred By Jaycee t Referred To Contact [facility] Diagnoses Spasticity Procedures OFFICE/OUTPATIENT [facility] 60 MINUTES Mini Whyte MD [address] [place] [address] Phone: tel: fax: [facility] [address] [place] [address] Referral ID Status Reason Start Date Expiration Date V isits Requested Visits Authorized [id number] Closed PCP Requested Referral Auto-Generated Referral 07/31/2024 07/31/2025 1 1 Reason Comments MARYJANE 2-4 weeks Reason Comments MARYJANE 3 months Care Teams (unrecognized sec tion and content) Account Executive Relationship Specialty Start Date End Date Leela Escoto DO [address] [place] [address] PCP - General Family Practice 05/26/21 Account Executive Relationship Specialty Start Date End Date Leela Escoto DO [address] [place] [address] PCP - General Family Practice 05/26/21 Account Executive Relationship Specialty Start Date End Date Leela Escoto DO [address] [place] [address] PCP - General Family Practice 05/26/21 Account Executive Relationship Specialty Start Date End Date Sheets, Leela C, DO [address] [place] [address] PCP - General Family Practice 05/26/21 Account Executive Relationship Specialty Start Date End Date Sheets Leela Sarahi, DO [address] [place] [address] PCP - General Family Practice 05/26/21 Account Executive Relationship Specialty Start Date End Date Sheets Leela Mcclain, DO [address] [place] [address] PCP - General Family Medicine 05/26/21 Account Executive Relationship Specialty Start Date End Date Sheets Leela Mcclain DO [address] [place] [address] PCP - General Family Medicine 05/26/21 Account Executive Relationship Specialty Start Date End Date Sheets Leela Mcclain DO [address] [place] [address] PCP - General Family Medicine 05/26/21 Account Executive Relationship Specialty Start Date End Date Sheets Leela Mcclain DO [address] [place] [address] PCP - General Family Medicine 05/26/21 Account Executive Relationship Specialty Start Date End Date Sheets Leela Mcclain, DO [address] [place] [address] PCP - General Family Medicine 05/26/21 Account Executive Relationship Specialty Start Date End Date Sheets, Leela Mcclain, DO [address] [place] [address] PCP - General Family Medicine 05/26/21 Account Executive Relationship Specialty Start Date End Date Sheets, Leela Mcclain DO [address] [place] [address] PCP - General Family Medicine 05/26/21 Account Executive Relationship Specialty Start Date End Date Sheets Leela Mcclain DO [address] [place] [address] PCP - General Family Medicine 05/26/21 Account Executive Relationship Specialty Start Date End Date Sheets Leela Mcclain DO [address] [place] [address] PCP - General Family Medicine 05/26/21 Account Executive Relationship Specialty Start Date End Date Sheets Leela Mcclain, DO [address] [place] [address] PCP - General Family Medicine 05/26/21 Account Executive Relationship Specialty Start Date End Date Sheets Leela Mcclain DO [address] [place] [address] PCP - General Family Medicine 05/26/21 Account Executive Relationship Specialty Start Date End Date Sheets Leela Mcclain DO [address] [place] [address] PCP - General Family Medicine 05/26/21 Account Executive Relationship Specialty Start Date End Date Sheets Leela Mcclain DO [address] [place] [address] PCP - General Family Medicine 05/26/21 Account Executive Relationship Specialty Start Date End Date Sheets Leela Mcclain, DO [address] [place] [address] PCP - General Family Medicine 05/26/21 Account Executive Relationship Specialty Start Date End Date Sheets Leela Mcclain DO [address] [place] [address] PCP - General Family Medicine 05/26/21 Account Executive Relationship Specialty Start Date End Date Sheets Leela Mcclain DO [address] [place] [address] PCP - General Family Medicine 05/26/21 Account Executive Relationship Specialty Start Date End Date Jevon Leela Mcclain DO [address] [place] [address] PCP - General Family Medicine 05/26/21 Account Executive Relationship Specialty Start Date End Date Leela Escoto DO [address] [place] [address] PCP - General Family Medicine 05/26/21 Account Executive Relationship Specialty Start Date End Date Leela Escoto DO [address] [place] [address] PCP - General Family Medicine 05/26/21 Account Executive Relationship Specialty Start Date End Date Leela Escoto DO [address] [place] [address] PCP - General Family Medicine 05/26/21 Account Executive Relationship Specialty Start Date End Date Leela Escoto DO [address] [place] [address] PCP - General Family Medicine 05/26/21 Account Executive Relationship Specialty Start Date End Date Leela Escoto DO [address] [place] [address] PCP - General Family Medicine 05/26/21 Account Executive Relationship Specialty Start Date End Date Leela Escoto DO [address] [place] [address] PCP - General Family Medicine 05/26/21 Account Executive Relationship Specialty Start Date End Date Leela Escoto DO [address] [place] [address] PCP - General Family Medicine 05/26/21 Account Executive Relationship Specialty Start Date End Date Leela Escoto DO [address] [place] [address] PCP - General Family Medicine 05/26/21 Account Executive Relationship Specialty Start Date End Date Leela Escoto DO [address] [place] [address] PCP - General Family Medicine 05/26/21 Account Executive Relationship Specialty Start Date End Date Leela Escoto DO [address] [place] [address] PCP - General Family Medicine 05/26/21 Account Executive Relationship Specialty Start Date End Date Leela Escoto DO [address] [place] [address] PCP - General Family Medicine 05/26/21 Account Executive Relationship Specialty Start Date End Date Leela Escoto DO [address] [place] [address] PCP - General Family Medicine 05/26/21 Account Executive Relationship Specialty Start Date End Date Leela Escoto DO [address] [place] [address] PCP - General Family Medicine 05/26/21 Account Executive Relationship Specialty Start Date End Date Leela Escoto DO [address] [place] [address] PCP - General Family Medicine 05/26/21 Account Executive Relationship Specialty Start Date End Date Leela Escoto DO [address] [place] [address] PCP - General Family Medicine 05/26/21 Account Executive Relationship Specialty Start Date End Date Leela Escoto DO [address] [place] [address] PCP - General Family Medicine 05/26/21 Account Executive Relationship Specialty Start Date End Date Leela Escoto DO [address] [place] [address] PCP - General Family Medicine 05/26/21 Account Executive Relationship Specialty Start Date End Date Leela Escoto DO [address] [place] [address] PCP - General Family Medicine 05/26/21 Account Executive Relationship Specialty Start Date End Date Leela Escoto DO [address] [place] [address] PCP - General Family Medicine 05/26/21 Account Executive Relationship Specialty Start Date End Date Leela Escoto DO [address] [place] [address] PCP - General Family Medicine 05/26/21 Account Executive Relationship Specialty Start Date End Date Leela Escoto DO [address] [place] [address] PCP - General Family Medicine 05/26/21 Account Executive Relationship Specialty Start Date End Date Leela Escoto DO [address] [place] [address] PCP - General Family Medicine 05/26/21 03/23/24 [...] BE BASED ON THE PRIMARY CLINICAL RECORDS. [facility]. provides no warranty or guarantee of the accuracy or completeness of information in this document.
[2025-02-24 07:56] LABS: Hematocrit 35.1 % (37-47); Hemoglobin 10.9 g/dL (12.0-15.0); Immature Granulocytes Count 0.140 X10^3/uL (0.0-0.0); Mean Corp Hgb Conc 31.1 g/dL (32-36); Mean Corpuscular Volume 90.7 fL (81-99); Mean Platelet Vol. 9.9 fl (6.2-12.0); NRBC Flagged by Analyzer 0 % (0-5); Platelet Count 280 K/mm3 (150-450); RBC Distribution Width CV 13.4 % (11.6-14.6); RBC Distribution Width SD 44.5 fl (35.1-43.9); Red Blood Count 3.87 M/mm3 (4.2-5.4); White Blood Count 17.6 K/mm3 (4.4-11.0)
[2025-02-24 08:23] LABS: Anion Gap 12 (5-15); BUN 18 mg/dL (4-19); BUN/Creat Ratio 15.6 RATIO (10-20); Calcium,Total 9.8 mg/dL (7.6-11.0); Carbon Dioxide 25.0 mmol/L (21.0-32.0); Chloride 100 mmol/L (98-108); Glucose 121 mg/dL (70-99); Potassium 3.9 mmol/L (3.3-5.1)
== END ==
LOC: OLS.SW 05:00
PROVIDERS: PCP Internal Medicine; Visit Provider Family Medicine
DX: I10 Essential (primary) hypertension (principal)
CPT/HCPCS: 36415; 80048; 85025

== ENCOUNTER 2025-03-16 12:22 | Inpatient (IN) | payer MEDICARE, MEDICAID, SELFPAY ==
[2025-03-16] VITALS (10 sets, daily range): BP systolic 87–130; BP diastolic 47–95; PULSE 82–113; RESP 16–18; TEMP 37–38.7; O2SAT 95–99; BMI 29.9; BMI 29.5
--- NOTE | 2025-03-16 12:48 | CT_ITS ---
PROCEDURE: BRAIN/HEAD WITHOUT CONTRAST 03/16/2025 REASON FOR EXAM: Clinical history of altered mental status. TECHNIQUE: Procedure Code: CTBR Modality: CT Procedure: BRAIN/HEAD WITHOUT CONTRAST Coronal and Sagittal reconstruction series were provided. One or more dose reduction techniques were used (e.g., Automated exposure control, adjustment of the mA and/or kV according to patient size, use of iterative reconstruction technique. RADIATION DOSE SUMMARY: DLP: 837.39 mGycm COMPARISON: None available. FINDINGS: Motion artifact mildly limits evaluation. No acute hemorrhage. No acute transcortical infarct. Right frontal lobe encephalomalacia. Patchy periventricular and subcortical white matter hypodensities in the cerebral hemispheres compatible with chronic microvascular ischemic changes. No significant mass effect or brain herniation. Global cerebral volume loss and compensatory enlargement of the CSF spaces. No hydrocephalus. The basal cisterns are patent. The mastoid air cells are clear. The paranasal sinuses are predominantly clear. Prior right frontal craniotomy. Heterogeneous frontoparietal calvarium. CT/Brain/Head without Contrast IMPRESSION: 1. Motion artifact mildly limits evaluation. No CT evidence of acute intracran ial hemorrhage, transcortical infarct, or significant mass effect. 2. Right frontal craniotomy and subjacent right frontal lobe encephalomalacia. 3. Chronic microvascular ischemic changes. Reading Location: [id number]
--- NOTE | 2025-03-16 12:48 | RAD_ITS ---
PROCEDURE: CHEST 1 VIEW 03/16/2025 REASON FOR EXAM: AMS TECHNIQUE: Frontal view of the chest. COMPARISON: None available. FINDINGS: Hardware: Partially imaged cervical spine fixation hardware. Heart: The heart size is normal. Lungs: The lungs are clear. No pneumothorax or pleural effusion. Bones: The bones are unremarkable. RAD/Chest 1 View IMPRESSION: No Acute Findings. Reading Location: [facility]
--- NOTE | 2025-03-16 12:49 | EKG12_ITS ---
Test Reason : Blood Pressure : */* mmHG Vent. Rate : 102 BPM Atrial Rate : 102 BPM P-R Int : 148 ms QRS Dur : 76 ms QT Int : 370 ms P-R-T Axes : 52 -3 7 degrees QTcB Int : 482 ms Sinus tachycardia Low voltage QRS T wave abnormality, consider anterior ischemia QTcB >= 480 msec Abnormal ECG Confirmed by Stew Carvajal ([id number]), writer editor AUBRIE PEGUERO ([id number]) on 03/17/2025 10:58:59 AM Also confirmed by Stew Carvajal ([id number]), writer editor AUBRIE PEGUERO ([id number]) on 03/18/2025 11:06:48 AM Referred By: Confirmed By: Stew Carvajal
--- NOTE | 2025-03-16 12:50 | EX.ED.DYSGE1 ---
HPI History of Present Illness Chief Complaint: Confusion Narrative Narrative: Patient is a 60-year-old female presenting to the emergency department for confusion. Patient is unable to provide history and history from EMS was limited. Reportedly the patient was tachycardic and hypotensive at her facility which is why they sent her in for evaluation. They report she also had a fever of 100.4. She has a past medical history of altered mental status, hyperlipidemia, seizures. She wears 2 L nasal cannula baseline. [facility] Medical History Obesity Fe deficiency anemia Chronic anemia CKD (chronic kidney disease), stage II COPD (chronic obstructive pulmonary disease) Tobacco use Chronic hypoxic respiratory failure, on home oxygen therapy Irritable bowel syndrome (~05/16/24) Hyperlipidemia, unspecified (~03/25/24) Other chronic pain (~03/25/24) Gastro-esophageal reflux disease with esophagitis (~03/25/24) Unspecified osteoarthritis, unspecified site (~03/25/24) Other seizures (~03/25/24) Essential (primary) hypertension (~03/25/24) Cervicalgia (~03/25/24) Major depressive disorder, recurrent, unspecified (~03/25/24) Unspecified sequelae of cerebral infarction (~03/25/24) Home Medications ?Medication ?Instructions ?Recorded ?Last Taken ?Type aspirin 325 mg tablet (Mariusz 325 mg PO DAILY sequelae of 03/16/25 03/16/25 History Aspirin) cerebral infarction atorvastatin 20 mg tablet 20 mg PO QHS cholesterol 03/16/25 03/15/25 History camphor 4 %-methyl salicylate 30 1 ea topical QHS for pain 03/16/25 03/15/25 History %-menthol 10 % topical gel carvedilol 3.125 mg tablet 3.125 mg PO BID 03/16/25 03/16/25 History cholecalciferol (vitamin D3) 50 50 mcg PO DAILY 03/16/25 03/16/25 History mcg (2,000 unit) capsule cranberry fruit 450 mg tablet 450 mg PO QDAY 03/16/25 03/16/25 History (cranberry) dicyclomine 20 mg tablet 20 mg PO TID IBS 03/16/25 03/16/25 History ferrous sulfate 325 mg (65 mg 325 mg PO BID anemia 03/16/25 03/16/25 History iron) tablet (Feosol) linaclotide 72 mcg capsule 72 mcg PO DAILY ibs 03/16/25 03/16/25 History (Linzess) melatonin 5 mg tablet 5 mg PO QHS insomnia 03/16/25 03/15/25 History omeprazole 40 mg capsule,delayed 40 mg PO DAILY gerd 03/16/25 03/16/25 History release sertraline 25 mg tablet 25 mg PO DAILY 03/16/25 03/15/25 History sertraline 50 mg tablet 50 mg PO DAILY 03/16/25 03/15/25 History tramadol 50 mg tablet 50 mg PO Q6H PRN CHRONIC PAIN 03/16/25 Unknown History Allergy/AdvReac Type Severity Reaction Status Date / Time Unable to Assess Allergy Verified 03/16/25 12:34 Surgical History History of craniotomy Social History housing: assisted Smoking Status: Current every day smoker tobacco type: cigarettes alcohol intake: never substance use type: does not use ROS ROS ED ROS Narrative Unable to be obtained from patient due to mental status EXAM Physical Exam Narrative Exam Narrative: Vital signs: Reviewed General: Alert, not oriented. GCS of 11. No acute distress. Chronically ill appearing. HEENT: Head is normocephalic and atraumatic, sinuses nontender, pupils 2mm equal round and reactive. Nares are patent. Oropharynx and throat exams normal. Dry mucous membranes Neck: Supple without lymphadenopathy nontender. No nuchal rigidity. Negative Brudzinski sign Cardiovascular: Tachycardic rate and regular rhythm, no murmurs. No rubs or gallops. Normal S1 and S2. On 2 L NC. Respiratory: Clear to auscultation bilaterally. No wheezes, rales, rhonchi Abdominal: Soft and nontender. Normal bowel sounds. No guarding or rebound. Nonsurgical abdomen Skin: No rash or redness. Neurological: Does not follow commands. Moves all extremities, wiggles toes and squeezes my hands. The rest of the physical exam is unremarkable Const Vital Signs: 03/16/25 12:23 03/16/25 13:23 03/16/25 14:17 Temperature 99 F Temperature Source Oral Pulse Rate 103 H 102 H 82 Respiratory Rate 16 16 16 Blood Pressure 109/95 H 102/63 130/80 H Blood Pressure Mean 99 76 96 Pulse Ox 97 97 96 Oxygen Delivery Method Nasal Cannula Room Air Nasal Cannula Oxygen Flow Rate (L/min) 2 03/16/25 15:08 Temperature Temperature Source Pulse Rate 96 Respiratory Rate 18 Blood Pressure 110/63 Blood Pressure Mean 78 Pulse Ox 99 Oxygen Delivery Method Nasal Cannula Oxygen Flow Rate (L/min) MDM MDM MDM Narrative Medical decision making narrative: Patient is a 60-year-old female presenting to the emergency department for altered mental status, hypoxia and tachycardia at her nursing facility. Patient was seen and examined. She is tachycardic on arrival to 103. BP is stable at 109/95. She is on 2 L nasal cannula satting 97% which is new for her. She has borderline febrile. Differential includes but is not limited to: Pneumonia, urinary tract infection, URI, ACS, sepsis, stroke, less likely meningitis, encephalitis given physical exam findings. Fluid bolus started. CBC with leukocytosis of 21.6, chronic anemia of 10.6. CMP with mild SHEBA. Lactic elevated at 2.2. Alk phos elevated at 138 which is chronic for her. Troponin and reflex within normal limits with no significant delta change. Mild hypokalemia 3.2. Urinalysis with significant urinary tract infection, based on prior cultures, Rocephin given. Prior to antibiotic ministration blood cultures were obtained given patient meeting sepsis criteria. CT of the brain is limited due to motion artifact but shows no acute intracranial hemorrhage. Chronic changes seen in the report. Chest x-ray reviewed by myself and shows no opacities, pneumothorax or widened mediastinum. Radiology read in agreement. Patient reevaluated and on reevaluation BP continues to be stable with fluid bolus. Sister is now at bedside and helps provide additional history including that she has had multiple urinary tract infections in the past and is currently being treated for 1. She states that she is normally able to hold a conversation but is wheelchair-bound. Patient will require admission for UTI and metabolic encephalopathy. Admitted to Dr. Melgar for further management. Clinical impression Urinary tract infection Metabolic encephalopathy History & Record Review Discussion w/independent historian: EMS personnel and Family Lab Data Attestation: I reviewed the patient's lab results. Labs: Laboratory Results - last 24 hr 03/16/25 03/16/25 03/16/25 13:08 13:52 15:06 WBC 21.6 H RBC 3.67 L Hgb 10.6 L Hct 33.3 L MCV 90.7 MCH 28.9 MCHC 31.8 L RDW Std Deviation 49.0 H RDW Coeff of Andrae 14.6 Plt Count 234 MPV 9.4 Neut % (Auto) Not Reportable Absolute Neuts (auto) 18.5 H Absolute Lymphs (auto) 1.50 Total Counted 100 Neutrophils % (Manual) 86 H Band Neutrophils % 3 Lymphocytes % (Manual) 7 L Monocytes % (Manual) 3 Myelocytes % 1 H Platelet Estimate ADEQUATE RBC Morphology NORM C+C Sodium 143 Potassium 3.2 L Chloride 104 Carbon Dioxide 24.2 Anion Gap 15 BUN 28 H Creatinine 1.29 H Estim Creat Clear Calc 43.25 L Est GFR (MDRD) Non-Af 47 L BUN/Creatinine Ratio 21.9 H Glucose 145 H Lactic Acid 2.2 H* Calcium 10.1 Magnesium 1.7 Total Bilirubin 0.31 AST 24 ALT 15 Alkaline Phosphatase 138 H Troponin T High Sens 12 Troponin T Hi Sens 2 Hr 12 Total Protein 6.9 Albumin 3.3 L Globulin 3.6 Albumin/Globulin Ratio 0.9 Urine Color Yellow Urine Clarity Cloudy Urine pH 8.0 Ur Specific Quail 1.010 Urine Protein 100 H Urine Glucose (UA) Normal Urine Ketones Negative Urine Occult Blood 150 H Urine Nitrite Negative Urine Bilirubin Negative Urine Urobilinogen Normal Ur Leukocyte Esterase 500 H Urine RBC 5-10 SEEN Urine WBC 50-100 SEEN Ur Squamous Epith Cells 0 SEEN Urine Bacteria 4+ Urine Mucus 0 SEEN Radiography Chest X-Ray - ED: 2 View, Normal and No Infiltrates Diagnostic Testing: Clinical Impression(s) from Imaging Studies Brain CT 03/16/25 12:48 IMPRESSION: 1. Motion artifact mildly limits evaluation. No CT evidence of acute intracranial hemorrhage, transcortical infarct, or significant mass effect. 2. Right frontal craniotomy and subjacent right frontal lobe encephalomalacia. 3. Chronic microvascular ischemic changes. Reading Location: [facility] Chest X-Ray 03/16/25 12:48 IMPRESSION: No Acute Findings. Reading [facility] Discharge Plan Disposition Disposition: Acute Care Hospital [facility] Discharge Date/Time: 03/16/25 16:06
[2025-03-16 13:19] LABS: Hematocrit 33.3 % (37-47); Hemoglobin 10.6 g/dL (12.0-15.0); Mean Corp Hgb Conc 31.8 g/dL (32-36); Mean Corpuscular Volume 90.7 fL (81-99); Mean Platelet Vol. 9.4 fl (6.2-12.0); POSITIVE MORPHOLOGY YES; Platelet Count 234 K/mm3 (150-450); RBC Distribution Width CV 14.6 % (11.6-14.6); RBC Distribution Width SD 49.0 fl (35.1-43.9); Red Blood Count 3.67 M/mm3 (4.2-5.4); White Blood Count 21.6 K/mm3 (4.4-11.0)
[2025-03-16 13:34] LABS: Troponin T High Sensitivity 12 ng/L (<=14)
[2025-03-16] MEDS: 0.9% Normal Saline (1000mL) 1,000 ML 1000 ML IV (13:34)
[2025-03-16 13:37] LABS: AST(SGOT) 24 U/L (<=31); Alanine Aminotransfer ALT/SGPT 15 U/L (<=34); Albumin, Serum 3.3 g/dL (3.4-4.8); Alkaline Phosphatase 138 U/L (35-104); Anion Gap 15 (7-18); BUN 28 mg/dL (4-19); BUN/Creat Ratio 21.9 RATIO (10-20); Calcium,Total 10.1 mg/dL (7.6-11.0); Carbon Dioxide 24.2 mmol/L (20.0-29.0); Chloride 104 mmol/L (96-106); Estimated Creatinine Clearance 43.25 ml/min (50-250); Globulin 3.6 g/dL (2.2-4.2); Glucose 145 mg/dL (70-99); Potassium 3.2 mmol/L (3.5-5.1)
[2025-03-16 13:55] LABS: Mucous, Urine 0 SEEN /hpf (<or=2+); Squamous Epithelial Cells - UA 0 SEEN /hpf (5-10)
[2025-03-16 14:00] LABS: Color, Urine Yellow (Yellow); Glucose, Dipstick Normal (Normal); Ketone-Dipstick Negative (Negative); Leukocyte Esterase-Dipstick 500 /ul (Negative); Nitrite-Dipstick Negative (Negative); Occult Blood-Urine 150 /ul (Negative); Protein-Dipstick 100 mg/dl (Negative); Specific Gravity, Urine 1.010 (1.002-1.030); Urine Bilirubin Dipstick Negative (Negative)
[2025-03-16 14:06] LABS: Red Blood Cells-Urine 5-10 SEEN /hpf (0-5)
[2025-03-16 14:32] LABS: Differential Indicated MANUAL DIFF
[2025-03-16 14:36] LABS: Neutrophil-Band 3 % (0-5); Neutrophil-Segmented 86 % (47-70); Total Cells Counted 100 (MANUAL DIFF)
[2025-03-16 14:39] LABS: Red Cell Morphology NORM C+C NORMAL (NORM C&C)
--- NOTE | 2025-03-16 15:08 | PCM.HP.STD ---
HPI - General General Date of Admission: 03/16/25 Date of Service: 03/16/25 Chief Complaint: Increased confusion, fever. HPI Narrative The patient is a 60 y/o F w/ PMHx: Chronic hypoxic respiratory failure, possibly secondary to chronic COPD given tobacco use history (2L NC), Obesity, HTN, HLD, Previous chart documentation of brain neoplasm unclear specifics status post noted previous craniotomy on CT imaging currently with suspected associated at least previous seizure disorder, IBS, GERD, Chronic anemia/Fe deficiency anemia, CKD stage II per previous GFR trending, GERD, Major depression/adjustment disorder who presents to the [facility] ED on 03/16/2025 with history of worsened confusion noted to be tachycardic and reportedly hypotensive at skilled facility with a fever of 100.4 reportedly on chronic 2 L nasal cannula baseline at facility prompting ED evaluation. Workup in the ED included T99, heart rate 103, BP 109/95, respiratory rate 16, 97% on 2 L nasal cannula with most recent repeat vitals heart rate 82, BP 130/80, respiratory rate 16, 96% on 2 L nasal cannula, CBC with WBC 21.6, hemoglobin 10.6, MCV 90.7, platelet 234 with differential pending, CMP with potassium 3.2, BUN/creatinine 28/1.29, GFR 47, glucose 145, hepatic profile with alk phos 138 otherwise not marked appearing, troponin 12, lactic acid 2.2, urinalysis noted to be cloudy, urine protein 100, occult blood 150, negative nitrite, leukocyte esterase 500 with urine WBCs 50-100 with 4+ urine bacteria, urine culture pending per ED, CT brain with right frontal craniotomy and subadjacent right frontal lobe encephalomalacia as well as chronic microvascular ischemic changes with limitations given motion artifact with no acute findings otherwise, chest x-ray with no acute cardiopulmonary findings, rapid SARS COVID/influenza/RSV PCR negative, urine culture pending per ED, blood culture x 2 pending per ED. In the ED patient ministered 1 L normal saline as well as Rocephin 1 g IV x 1. [facility] Medical History Obesity Fe deficiency anemia Chronic anemia CKD (chronic kidney disease), stage II COPD (chronic obstructive pulmonary disease) Tobacco use Chronic hypoxic respiratory failure, on home oxygen therapy Irritable bowel syndrome (~02/21/25) Hyperlipidemia, unspecified (~03/25/24) Other chronic pain (~03/25/24) Gastro-esophageal reflux disease with esophagitis (~03/25/24) Unspecified osteoarthritis, unspecified site (~03/25/24) Other seizures (~03/25/24) Essential (primary) hypertension (~03/25/24) Cervicalgia (~03/25/24) Major depressive disorder, recurrent, unspecified (~03/25/24) Unspecified sequelae of cerebral infarction (~03/25/24) Home Medications ?Medication ?Instructions ?Recorded ?Last Taken ?Type aspirin 325 mg tablet (Mariusz 325 mg PO DAILY sequelae of 03/16/25 03/16/25 History Aspirin) cerebral infarction atorvastatin 20 mg tablet 20 mg PO QHS cholesterol 03/16/25 03/15/25 History camphor 4 %-methyl salicylate 30 1 ea topical QHS for pain 03/16/25 03/15/25 History %-menthol 10 % topical gel carvedilol 3.125 mg tablet 3.125 mg PO BID 03/16/25 03/16/25 History cholecalciferol (vitamin D3) 50 50 mcg PO DAILY 03/16/25 03/16/25 History mcg (2,000 unit) capsule cranberry fruit 450 mg tablet 450 mg PO QDAY 03/16/25 03/16/25 History (cranberry) dicyclomine 20 mg tablet 20 mg PO TID IBS 03/16/25 03/16/25 History ferrous sulfate 325 mg (65 mg 325 mg PO BID anemia 03/16/25 03/16/25 History iron) tablet (Feosol) linaclotide 72 mcg capsule 72 mcg PO DAILY ibs 03/16/25 03/16/25 History (Linzess) melatonin 5 mg tablet 5 mg PO QHS insomnia 03/16/25 03/15/25 History omeprazole 40 mg capsule,delayed 40 mg PO DAILY gerd 03/16/25 03/16/25 History release sertraline 25 mg tablet 25 mg PO DAILY 03/16/25 03/15/25 History sertraline 50 mg tablet 50 mg PO DAILY 03/16/25 03/15/25 History tramadol 50 mg tablet 50 mg PO Q6H PRN CHRONIC PAIN 03/16/25 Unknown History Allergy/AdvReac Type Severity Reaction Status Date / Time Unable to Assess Allergy Verified 03/16/25 12:34 Family History (Updated 03/16/25 @ 19:[address] Mikayla Melgar MD) Mother Asthma Father Heart disease PAF (paroxysmal atrial fibrillation) Surgical History (Updated 03/16/25 @ 19:[address] Mikayla Melgar MD) S/P exploratory laparotomy History of neck surgery S/P hysterectomy History of craniotomy Social History (Updated 03/16/25 @ 19:[address] Mikayla Melgar MD) housing: [facility] Smoking Status: Current every day smoker tobacco type: cigarettes Smoking packs per day: 0.25 Smoking cigarettes per day: 5.0 alcohol intake: never substance use type: does not use ROS Review of Systems ROS Unobtainable: due to encephalopathy and due to mental condition Patient's Goals Of Care . What would you like to achieve or improve as a result of your hospital stay?: Family would like her to improve mental status marroquin, treat her UTI and have help transitioning her to another SNF option. Vital Signs Vital Signs Vital Signs: 03/16/25 12:23 03/16/25 13:23 03/16/25 14:17 Temperature 99 F Temperature Source Oral Pulse Rate 103 H 102 H 82 Respiratory Rate 16 16 16 Blood Pressure 109/95 H 102/63 130/80 H Blood Pressure Mean 99 76 96 Pulse Ox 97 97 96 Oxygen Delivery Method Nasal Cannula Room Air Nasal Cannula Oxygen Flow Rate (L/min) 2 Weight Weight: 164 lb 0.383 oz Body Mass Index (BMI) 29.9 Physical Exam Narrative Physical Examination: General: Patient during evaluation very lethargic but intermittently would awaken and would give some answers but very fatigued and fell back asleep quickly, not able to answer orientation questions, did follow some commands but difficult as very encephalopathic, laying in ED bed, no acute distress. Skin: Normal color, normal turgor, no icterus, no cyanosis except occasional stage ecchymoses, abrasion. HEENT: AT/NC, EOMI appear intact but difficult evaluation is encephalopathic, PERRLA, dry MM, no carotid bruits or JVD noted. Lungs: Diminished, greater bases, appropriate effort, no rales, ronchi or wheezing. Heart: Mildly tachycardic rate rhythm; no gallop, rub audible. Abdomen: Soft, NTTP, mildly distended and tympanitic, distant normal BS, no appreciated HSM. Extremities: No cyanosis, no clubbing, no significant distal edema noted Neurological: Patient during evaluation very lethargic but intermittently would awaken and would give some answers but very fatigued and fell back asleep quickly, not able to answer orientation questions, did follow some commands but difficult as very encephalopathic, laying in ED bed, no acute distress, cognitive function not baseline intact; pupils equally reactive to light and accommodation, cranial nerves difficult to assess given encephalopathy, moving all 4 extremities but very lethargic and limited, strength severely globally decreased Psychiatric: Affect appears flat, encephalopathic, ill-appearing, no acute evidence of depressive or anxiety feelings but does have underlying chart reported history. Results Lab / Micro Data 03/16/25 13:08 03/16/25 13:08 Labs: Laboratory Results - last 24 hr 03/16/25 13:08: WBC 21.6 H, RBC 3.67 L, Hgb 10.6 L, Hct 33.3 L, MCV 90.7, MCH 28.9, MCHC 31.8 L, RDW Std Deviation 49.0 H, RDW Coeff of Andrae 14.6, Plt Count 234, MPV 9.4, Neut % (Auto) Not Reportable, Absolute Neuts (auto) 18.5 H, Absolute Lymphs (auto) 1.50, Total Counted 100, Neutrophils % (Manual) 86 H, Band Neutrophils % 3, Lymphocytes % (Manual) 7 L, Monocytes % (Manual) 3, Myelocytes % 1 H, Platelet Estimate ADEQUATE, RBC Morphology NORM C+C, Sodium 143, Potassium 3.2 L, Chloride 104, Carbon Dioxide 24.2, Anion Gap 15, BUN 28 H, Creatinine 1.29 H, Estim Creat Clear Calc 43.25 L, Est GFR (MDRD) Non-Af 47 L, BUN/Creatinine Ratio 21.9 H, Glucose 145 H, Lactic Acid 2.2 H*, Calcium 10.1, Total Bilirubin 0.31, AST 24, ALT 15, Alkaline Phosphatase 138 H, Troponin T High Sens 12, Total Protein 6.9, Albumin 3.3 L, Globulin 3.6, Albumin/Globulin Ratio 0.9 03/16/25 13:52: Urine Color Yellow, Urine Clarity Cloudy, Urine pH 8.0, Ur Specific [place] 1.010, Urine Protein 100 H, Urine Glucose (UA) Normal, Urine Ketones Negative, Urine Occult Blood 150 H, Urine Nitrite Negative, Urine Bilirubin Negative, Urine Urobilinogen Normal, Ur Leukocyte Esterase 500 H, Urine RBC 5-10 SEEN, Urine WBC 50-100 SEEN, Ur Squamous Epith Cells 0 SEEN, Urine Bacteria 4+, Urine Mucus 0 SEEN Micro: Microbiology 03/16/25 12:53 Mucosa - Nose SARS-CoV-2, Influenza & RSV (PCR) - Final Imaging Radiology Impression Brain CT 03/16/25 12:48 IMPRESSION: 1. Motion artifact mildly limits evaluation. No CT evidence of acute intracranial hemorrhage, transcortical infarct, or significant mass effect. 2. Right frontal craniotomy and subjacent right frontal lobe encephalomalacia. 3. Chronic microvascular ischemic changes. Reading Location: [id number] Chest X-Ray 03/16/25 12:48 IMPRESSION: No Acute Findings. Reading [facility] Assessment & Plan Assessment/Plan (1) UTI (urinary tract infection): PLAN: Plan The patient is a 60 y/o F w/ PMHx: Chronic hypoxic respiratory failure, possibly secondary to chronic COPD given tobacco use history (2L NC), Obesity, HTN, HLD, Previous chart documentation of brain neoplasm unclear specifics status post noted previous craniotomy on CT imaging currently with suspected associated at least previous seizure disorder, IBS, GERD, Chronic anemia/Fe deficiency anemia, CKD stage II per previous GFR trending, GERD, Major depression/adjustment disorder who presents to the [facility] ED on 03/16/2025 with history of worsened confusion noted to be tachycardic and reportedly hypotensive at skilled facility with a fever of 100.4 reportedly on chronic 2 L nasal cannula baseline at facility prompting ED evaluation. #1. Acute encephalopathy secondary to Acute Complicated Urinary Tract Infection with mild lactic acidosis and as noted mild renal insufficiency/elevated creatinine: Will admit to [facility] given stable vital signs, UA upon ED evaluation remarkable, pending UCx, will administer judicious IVFs, monitor I/Os, continue IV Rocephin based on review of previous cultures w/ transition as able pending sensitivities and speciation. Most recent noted urine cultures include Proteus and E. coli with near cho sensitivity for Proteus aside from nitrofurantoin resistance and E. coli noted to be resistant to Cipro and the Levaquin otherwise pansensitive including to Rocephin. #2. Acute renal insufficiency/elevated creatinine on CKD stage II per previous GFR trending: Admission BUN/creatinine 28/1.29, GFR 47, normally consistent with stage II, baseline creatinine primarily 0.6-1.1, most recently 02/26/2025 creatinine 0.83, will judiciously hydrate, hold nephrotoxic medications to assure no worsening renal function and repeat CMP in AM. #3. Hyperglycemia without diabetic history: Admission glucose 145, no specific diabetic history reported in skilled facility chart, will obtain hemoglobin A1c be cautious. #4. Hypokalemia: Admission K+ 3.2, magnesium level requested, supplementation given, repeat level in AM. #5. Previous chart documentation of brain neoplasm unclear specifics status post noted previous craniotomy on CT imaging currently with suspected associated at least previous seizure disorder: Noted in chart history on 04/02/2024 history from nursing facility, unclear specifics but per CT appears to have undergone a right frontal craniotomy with noted also subadjacent right frontal lobe encephalomalacia. Suspect seizure history had been related with this. Per current list not on any antiepileptic medication, clarified to be certain. #6. Chronic hypoxic respiratory failure, possibly secondary to chronic COPD given tobacco use history: Patient reportedly on 2 L nasal cannula, potentially secondary to chronic COPD history but uncertain, not on skilled facility chart list of diagnoses, will maintain on home oxygen supplementation level, not on any inhalers per current list but clarified to be certain, will have in the interim as needed albuterol. #7. Chronic normocytic anemia/iron deficiency anemia: Admission hemoglobin 10.6, MCV 90.7, baseline hemoglobin primarily 10 range, stable, continue iron supplementation, continue CBC trending. #8. Major Depression/adjustment disorder: Will continue patient home sertraline regimen, encourage continued follow-up outpatient as previously arranged. #9. IBS: Will continue patient scheduled dicyclomine as well as Linzess home regimen. #10. Hypertension: BP in the ED appropriate currently, will continue low-dose Coreg regimen with hold parameters as needed, as needed IV hydralazine. #11. Hyperlipidemia: Will continue home statin therapy. #12. Obesity: Weight loss and lifestyle changes encouraged. #13 GERD: Will continue patient on PPI. #14. DVT prophylaxis: Lovenox. #15. CODE status: Patient RUSTY is her daughter and living will is currently in place. Discussed CODE status at length including difference between FULL code, DNR-CCA and DNR-CC status. Following discussions about the differences in these status, requested DNR-CCAS, no intubation. Discussed nuances of this with patient sister who is present. Advanced Care Planning Face to Face Time: 16 minutes. Charges/Coding Visit Charges Inpatient E&M: 47112 Init Hosp L3 Procedures Hospitalists Procedures: 14046 Advncd Care Plan 30 Min
[2025-03-16 15:32] LABS: Troponin T High Sens 2 HR 12 ng/L (<=14)
[2025-03-16 16:04] LABS: Magnesium 1.7 mg/dL (1.5-2.2)
[2025-03-16] MEDS: 0.9% Normal Saline (1000mL) 1,000 ML 75 ML IV (16:58)
[2025-03-16] MEDS: Potassium Chloride Oral Tablet 20 MEQ 40 MEQ PO (17:02)
[2025-03-16 17:13] LABS: Reflex Lactate? Y
[2025-03-16 17:53] LABS: Troponin T High Sens 4 HR 14 ng/L (<=14)
--- NOTE | 2025-03-16 18:05 | RAD_ITS ---
PROCEDURE: ABDOMEN SINGLE VIEW (PORTABLE) 03/16/2025 REASON FOR EXAM: DISTENTION, DISCOMFORT TECHNIQUE: Procedure Code: RADABD_P Modality: DX Procedure: ABDOMEN SINGLE VIEW (PORTABLE) COMPARISON: None. FINDINGS: Nonspecific, nonobstructive bowel gas pattern. No discernible free air. Stool and gas in the rectal vault. Small calcific densities in the right upper abdomen may represent renal stones. Cholecystectomy surgical clips, and multiple surgical clips in the pelvis. Left hip hemiarthroplasty hardware. RAD/Abdomen Single View (Portable) IMPRESSION: Nonobstructive gas pattern. No free air appreciated. Small calcific densities in the right upper abdomen may represent renal stones. Reading Location: [id number]
--- OUTSIDE RECORDS SUMMARY | 2025-03-16 20:23 | XMS RPT_ITS | CCD ---
Author Organization [facility] Care Team Providers Care Technical Rep Name Role Phone Sheets DO, Leela Mcclain Primary Care Provider SHEETS, LEELA Mcclain Primary Care Unavailable FERNANDO [...] Provider Dr. Josi Garcia MD Attending Provider Mery Garcia MD, Dr. Prater Referring Provider Mery Garcia MD, Dr. Prater Primary Care Provider MINI Ewing Attending Provider [phone] MINI DUFFY Referring Provider [phone] Jose WINTERS, Dr. Prater Attending Provider Mery [...] Referring Unavaila ble BINDU BURT Attending Unavailable SPEARS-DUFFYMINI Referring Unavaila ble LEELA ESCOTO Primary Care Unavailable SPEARS-DUFFYMINI Referring Unavaila ble LEELA ESCOTO Primary Care Unavailable SPEARS-DUFFYMINI Attending Unavaila ble SPEARS-DUFFYMINI ARELLANO Referring Unavaila [...] [LATEX] Drug Allergy 11-05-2015 Other: See Comments [facility] (20 sources) Methadone; Translations: [METHADONE] Drug Allergy 11-05-2015 Unknown [facility] (20 sources) Naproxen; Translations: [NAPROXEN] Drug Allergy 11-05-2015 Hives, Itching [facility] (20 sources) Iodinated Contrast Media; Translations: [IODINATED CONTRAST MEDIA] Drug Allergy 11-05-2015 Other: See Comments [facility] Medications Current Medications Medication Drug Class(es) [...] Comment on above: Take 1 capsule by [facility] once daily. melatonin 5 mg oral [...] Comment on above: Take 1 capsule by [facility] once daily. riboflavin 400 mg oral [...] Active Start: 01-01-2024 take 1 tablet by [facility] once daily sertraline (ZOLOFT) 25 mg [...] Comment on above: Take 1 tablet by [facility] once daily. Multivitamin capsule (20 sources) [...] Comment on above: Take 1 capsule by [facility] once daily. nitrofurantoin, macrocrystals 25 mg / nitrofurantoin, monohydrate 75 mg oral capsule (3 sources) Nitrofuran Antibacterial Start: 022 End: 023 take 1 capsule by mouth twice daily nitrofurantoin monohydrate and macrocrystal (MACROBID) 100 mg capsule Take 1 capsule by mouth twice daily for 7 days. 14 capsule 0 03/20/2022 03/27/2022 Comment on above: [facility] 7 days. ondansetron 4 mg disintegrating oral tablet (20 sources) Serotonin-3 Receptor Antagonist Start: 022 End: ondansetron orally disintegrating (ZOFRAN ODT) 4 mg disintegrating tablet Take 1 tablet by mouth as needed. 02/23/2022 11/06/2024 Discontinued (Discontinued by another Health Care Provider) Comment on above: Take 1 tablet by [facility] as needed. 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 Gerda Dee, RN, BSN Director Informatics [facility] [...] Status:Closed by GERDA DEE on 02/03/25 Normal [facility] Urine Cultureon 02-02-2025 [facility] Proteus mirabilis Byers Count >100,000 Proteus mirabilis: REACTION Ampicillin Islt MIRTHA <=2 Ampicillin+Sulbac Islt MIRTHA <=2 S Cefepime Islt MIRTHA 0.5 S cefTRIAXone Islt MIRTHA <=0.25 S Ciprofloxacin Islt MIRTHA <=0.06 S Gentamicin Islt MIRTHA <=1 S levoFLOXacin Islt MIRTHA <=0.12 S Meropenem Islt MIRTHA <=0.25 S Nitrofurantoin Islt MIRTHA 128 R Pip+Tazo Islt MIRTHA <=4 S TMP SMX Islt MIRTHA <=20 S Normal [facility] Comment on above: Performed By: #### L 100.0100 #### [facility] [address] [place], [place], [id number] CBC-Complete Blood Cnt No Di ffon 01-31-2025 Erythrocyte distribution width (RBC) [Ratio] 14.0 % Normal 11.6-14.6 [facility] Comment on above: Performed By: #### L 100.0100 #### [facility] [address] [place], [address] Hematocrit (Bld) [Volume fraction] 33.7 % Low 37-47 [facility] Comment on above: Performed By: #### L 100.0100 #### [facility] [address] [place], [address] Hemoglobin (Bld) [Mass/Vol] 10.9 g/dL Low 12.0-15.0 [facility] Comment on above: Performed By: #### L 100.0100 #### [facility] [address] [place], [address] MCH (RBC) [Entitic mass] 29.5 pg Normal 27.0-32.0 [facility] Comment on above: Performed By: #### L 100.0100 #### [facility] [address] [place], [address] MCHC (RBC) [Mass/Vol] 32.3 g/dL Normal 32-36 [facility] Comment on above: Performed By: #### L 100.0100 #### [facility] [address] [place], [address] MCV (RBC) [Entitic vol] 91.1 fL Normal 81-99 [facility] Comment on above: Performed By: #### L 100.0100 #### [facility] [address] [place], [address] Platelet mean volume (Bld) [Entitic vol] 10.4 fL Normal 6.2-12.0 [facility] Comment on above: Performed By: #### L 100.0100 #### [facility] [address] [place], [address] Platelets (Bld) [#/Vol] 215 10*3/uL Normal 150-450 [facility] Comment on above: Performed By: #### L 100.0100 #### [facility] [address] [place], [address] RBC (Bld) [#/Vol] 3.70 10*6/uL Low 4.2-5.4 [facility] Comment on above: Performed By: #### L 100.0100 #### [facility] [address] [place], [address] RDW SD 46.7 fl High 35.1-43.9 [facility] Comment on above: Performed By: #### L 100.0100 #### [facility] [address] [place], [address] WBC (Bld) [#/Vol] 10.3 10*3/uL Normal 4.4-11.0 [facility] Comment on above: Performed By: #### L 100.0100 #### [facility] [address] [place], [address] Comprehensive Metabolic Prof [facility] 01-31-2025 Albumin [Mass/Vol] 2.8 g/dL Low 3.4-4.8 [facility] Comment on above: Performed By: #### L 100.0100 #### [facility] [address] [place], [address] Albumin/Globulin [Mass ratio] 0.8 {ratio} Low 0.9-2.4 [facility] Comment on above: Performed By: #### L 100.0100 #### [facility] [address] [place], [address] ALK PHOS 106 U/L High 35-104 [facility] Comment on above: Performed By: #### L 100.0100 #### [facility] [address] [place], [address] ALT [Catalytic activity/Vol] 24 U/L Normal <=34 [facility] Comment on above: Performed By: #### L 100.0100 #### [facility] [address] [place], [address] AST [Catalytic activity/Vol] 45 U/L High <=31 [facility] Comment on above: Result Comment: Hemo lysis present, Results??could be affected. ?? Performed By: #### L 100.0100 #### [facility] [address] [place], [address] Bilirubin [Mass/Vol] 0.26 mg/dL Normal 0.00-1.30 [facility] Comment on above: Performed By: #### L 100.0100 #### [facility] [address] [place], [address] BUN/CRE 33.4 RATIO High 10-20 [facility] Comment on above: Performed By: #### L 100.0100 #### [facility] [address] [place], [address] Calcium [Mass/Vol] 9.7 mg/dL Normal 7.6-11.0 [facility] Comment on above: Performed By: #### L 100.0100 #### [facility] [address] [place], [address] Chloride [Moles/Vol] 110 mmol/L High 98-108 [facility] Comment on above: Performed By: #### L 100.0100 #### [facility] [address] [place], [address] CO2 [Moles/Vol] 21.7 mmol/L Normal 21.0-32.0 [facility] Comment on above: Performed By: #### L 100.0100 #### [facility] [address] [place], [address] Creatinine [Mass/Vol] 1.15 mg/dL Normal 0.70-1.20 [facility] Comment on above: Performed By: #### L 100.0100 #### [facility] [address] [place], [address] GAP 13 Normal 5-15 [facility] Comment on above: Performed By: #### L 100.0100 #### [facility] [address] [place], [address] GFR/1.73 sq M.predicted among non-blacks MDRD (S/P/Bld) [Vol rate/Area] 54 mL/min/{1.73_m2} Low >60 [facility] Comment on above: Result Comment: mL/m in/1.73m2 CKD-EPI Creatinine Equation (2020) Performed By: #### L 100.0100 #### [facility] [address] [place], [address] Globulin (S) [Mass/Vol] 3.3 g/dL Normal 2.2-4.2 [facility] Comment on above: Performed By: #### L 100.0100 #### [facility] [address] [place], [address] Glucose [Mass/Vol] 104 mg/dL High 70-99 [facility] Comment on above: Performed By: #### L 100.0100 #### [facility] [address] [place], [address] Potassium [Moles/Vol] 4.0 mmol/L Normal 3.3-5.1 [facility] Comment on above: Result Comment: Hemo lysis present, Results??could be affected. ?? Performed By: #### L 100.0100 #### [facility] [address] [place], [address] Sodium [Moles/Vol] 144 mmol/L Normal 133-145 [facility] Comment on above: Performed By: #### L 100.0100 #### [facility] [address] [place], [address] T PROT 6.1 g/dL Normal 5.9-8.4 [facility] Comment on above: Performed By: #### L 100.0100 #### [facility] [address] [place], [address] Urea nitrogen [Mass/Vol] 38 mg/dL High 4-19 [facility] Comment on above: Performed By: #### L 100.0100 #### [facility] [address] [place], [address] Urinalysis, Completeon 01-31 BACTERIA 4+ /hpf Normal None Seen [facility] Comment on above: Order Comment: 510-1 Performed By: #### L 100.0100 #### [facility] [address] [place], [address] Mucus Ql (Urine sed) [address] [facility] Comment on above: Order Comment: 510-1 Result Comment: Micr oscopic field is filled. Other elements may be obscured. Performed By: #### L 100.0100 #### [facility] [address] [place], [address] EPI,SQUAMOUS 0 SEEN Normal 5-10 [facility] Comment on above: Order Comment: 510-1 Performed By: #### L 100.0100 #### [facility] [address] [place], [address] RBC 0 SEEN Normal 0-5 [facility] Comment on above: Order Comment: 510-1 Performed By: #### L 100.0100 #### [facility] [address] [place], [address] WBC 0 SEEN Normal 0-5 [facility] Comment on above: Order Comment: 510-1 Performed By: #### L 100.0100 #### [facility] [address] [place], [address] Ferritinon 01-27-2025 Ferritin [Mass/Vol] 99 ng/mL Normal 22-378 [facility] Comment on above: Order Comment: 506.1 Performed By: #### L 503.6150, L503.6550, L503.0106 #### [facility] [address] [place], [address] Ironon 01-27-2025 Iron [Mass/Vol] 26 ug/dL Low 50-170 [facility] Comment on above: Order Comment: 506.1 Performed By: #### L 503.6150, L503.6550, L503.0106 #### [facility] [address] [place], [address] Vitamin B12on 01-27-2025 Cobalamin (Vitamin B12) [Mass/Vol] 1760 pg/mL High 180-914 [facility] Comment on above: Order Comment: 506.1 Performed By: #### L 503.6150, L503.6550, L503.0106 #### [facility] [address] [place], [place], [address] CNOVon 2025 CNOV Office Visit (REHMMN ) DIOR CARVAJAL ([id number]) 1965 F Date Time Provider Department 01/22/25 9:45 AM [facility] During [facility] today, we recorded [...] Encounter Status:Closed by LILLIE HORTON on 01/22/25 [facility] WEIDIOR Victoria ([id number]) 1965 F Date Time Provider Department 01/16/25 MINI WHYTE [facility] During your visit today, [...] previous appt dates. Gerda Dee, RN, BSN Director Informatics [facility] [...] Status:Closed by GERDA DEE on 01/16/25 Normal [facility] Absolute lymphocyte countOrd ered By: Everett Cantor on 12-02-2024 Lymphocytes Auto (Unsp spec) [#/Vol] 2.89 10*3/uL 0.83-4.51 [facility] Absolute neutrophil countOrd ered By: Everett Cantor on 12-02-2024 Neutrophils (Bld) [#/Vol] 6.6 10*3/uL 2.0-7.7 [facility] Anion gap in Serum or Plasma Ordered By: Everett Cantor on 12-02-2024 Anion gap [Moles/Vol] 9 mmol/L 5-15 [facility] Automated blood erythrocyte countOrdered By: Everett Cantor on 12-02-2024 RBC (Bld) [#/Vol] 3.53 10*6/uL Low 4.2-5.4 [facility] Comment on above: Order Comment: 510-1 Performed By: #### L 100.0100 #### [facility] [address] [place], [place], [address] Automated blood hematocrit ( percentage)Ordered By: Everett Cantor on 12-02-2024 Hematocrit (Bld) [Volume fraction] 33.1 % Low 37-47 [facility] Comment on above: Order Comment: 510-1 Performed By: #### L 100.0100 #### [facility] [address] [place], [place], [address] Automated lymphocyte count a s percentage of total leukocytesOrdered By: Everett Cantor on 12-02-2024 Lymphocytes/100 WBC Auto (Unsp spec) 27.6 % 19-41 [facility] BUN/creatinine ratioOrdered By: Everett Cantor on 12-02-2024 Urea nitrogen/Creatinine [Mass ratio] 25.4 mg/mg High 10- [facility] Basic Metabolic Profile (BMP )on 12-02-2024 BUN/CRE 25.4 RATIO High 10- [facility] Comment on above: Order Comment: 510-1 Performed By: #### L 100.0100 #### [facility] [address] [place], [address] GAP 9 Normal 5-15 [facility] Comment on above: Order Comment: 510-1 Performed By: #### L 100.0100 #### [facility] [address] [place], [address] Potassium [Moles/Vol] 4.4 mmol/L Normal 3.3-5.1 [facility] Comment on above: Order Comment: 510-1 Performed By: #### L 100.0100 #### [facility] [address] [place], [address] Basophil percentageOrdered B y: Everett Cantor on 12-02-2024 Basophils/100 WBC (Bld) 0.6 % Normal 0-1 [facility] Comment on above: Order Comment: 510-1 Performed By: #### L 100.0100 #### [facility] [address] [place], [address] CBC W/Diff, Automatedon 09-0 Absolute Lymph 2.89 X10 3/uL Normal 0.83-4.51 [facility] Comment on above: Order Comment: 510-1 Performed By: #### L 100.0100 #### [facility] [address] [place], [address] Absolute Neut 6.6 X10 3/uL Normal 2.0-7.7 [facility] Comment on above: Order Comment: 510-1 Performed By: #### L 100.0100 #### [facility] [address] [place], [address] IG% 0.500 Normal 0.0-0.9 [facility] Comment on above: Order Comment: 510-1 Result Comment: IG% - Immature Granulocytes (promyelocytes, myelocytes and metamyelocytes) > 1% indicates that a LEFT SHIFT is Present. Performed By: #### L 100.0100 #### [facility] [address] [place], [address] Lymphocytes/100 WBC (Bld) 27.6 % Normal 19-41 [facility] Comment on above: Order Comment: 510-1 Performed By: #### L 100.0100 #### [facility] [address] [place], [address] Nucleated RBC (Bld) [#/Vol] 0 10*3/uL Normal 0-5 [facility] Comment on above: Order Comment: 510-1 Performed By: #### L 100.0100 #### [facility] [address] [place], [address] RDW SD 47.4 fl High 35.1-43.9 [facility] Comment on above: Order Comment: 510-1 Performed By: #### L 100.0100 #### [facility] [address] [place], [address] Carbon dioxide, total [Moles /volume] in Central venous bloodOrdered By: Everett Cantor on 12-02-2024 CO2 [Moles/Vol] 26.8 mmol/L Normal 21.0-32.0 [facility] Comment on above: Order Comment: 510-1 Performed By: #### L 100.0100 #### [facility] [address] [place], [address] Chloride assayOrdered By: Caesar Cantor on 12-02-2024 Chloride [Moles/Vol] 105 mmol/L Normal 98-108 [facility] Comment on above: Order Comment: 510-1 Performed By: #### L 100.0100 #### [facility] [address] [place], [address] Eosinophil percentageOrdered By: Everett Cantor on 12-02-2024 Eosinophils/100 WBC (Bld) 1.6 % Normal 0-5 [facility] Comment on above: Order Comment: 510-1 Performed By: #### L 100.0100 #### [facility] [address] [place], [address] Erythrocyte distribution wid th ratioOrdered By: Everett Cantor on 12-02-2024 Erythrocyte distribution width (RBC) [Ratio] 14.0 % Normal 11.6-14.6 [facility] Comment on above: Order Comment: 510- Performed By: #### L 100.0100 #### [facility] [address] [place], [address] Erythrocyte distribution wid th standard deviationOrdered By: Everett Cantor on 12-02-2024 Erythrocyte distribution width (RBC) [Ratio] 47.4 fl High 35.1-43.9 [facility] Glomerular filtration rate ( GFR) estimation/1.73 sq m using serum, plasma, or whole bOrdered By: Everett Cantor on 12-02-2024 GFR/1.73 sq M.predicted among non-blacks MDRD (S/P/Bld) [Vol rate/Area] 101 mL/min/{1.73_m2} Normal >60 [facility] Comment on above: mL/min/1.73m2 CKD-EP I Creatinine Equation (2020) Order Comment: Result Comment: mL/m in/1.73m2 CKD-EPI Creatinine Equation (2020) Performed By: #### L 100.0100 #### [facility] [address] [place], [place], [id number] [phone] Hemoglobin measurementOrdere d By: Everett Cantor on 12-02-2024 Hemoglobin (Bld) [Mass/Vol] 10.3 g/dL Low 12.0-15.0 [facility] Comment on above: Order Comment: Performed By: #### L 100.0100 #### [facility] [address] [place], [address] Immature granulocytes/100 WB C Auto (Bld)Ordered By: Everett Cantor on 12-02-2024 Immature granulocytes/100 WBC (Bld) 0.500 % 0.0-0.9 [facility] Comment on above: IG% - Immature Granu locytes (promyelocytes, myelocytes and metamyelocytes) > 1% indicates that a LEFT SHIFT is Present. MCV (mean corpuscular volume ) determinationOrdered By: Everett Cantor on 12-02-2024 MCV (RBC) [Entitic vol] 93.8 fL Normal 81-99 [facility] Comment on above: Order Comment: 510- Performed By: #### L 100.0100 #### [facility] [address] [place], [address] Mean corpuscular hemoglobin (MCH) determinationOrdered By: Everett Cantor on 12-02-2024 MCH (RBC) [Entitic mass] 29.2 pg Normal 27.0-32.0 [facility] Comment on above: Order Comment: - Performed By: #### L 100.0100 #### [facility] [address] [place], [address] Mean corpuscular hemoglobin concentration (MCHC) determinationOrdered By: Everett Cantor on 12-02-2024 MCHC (RBC) [Mass/Vol] 31.1 g/dL Low 32-36 [facility] Comment on above: Order Comment: Performed By: #### L 100.0100 #### [facility] [address] [place], [address] Mean platelet volume determi nationOrdered By: Everett Cantor on 12-02-2024 Platelet mean volume (Bld) [Entitic vol] 9.5 fL Normal 6.2-12.0 [facility] Comment on above: Order Comment: 510- Performed By: #### L 100.0100 #### [facility] [address] [place], [address] Monocyte percentageOrdered B y: Everett Cantor on 12-02-2024 Monocytes/100 WBC (Bld) 7.0 % Normal 0-10 [facility] Comment on above: Order Comment: 510- Performed By: #### L 100.0100 #### [facility] [address] [place], [address] Neutrophil percentageOrdered By: Everett Cantor on 12-02-2024 Neutrophils/100 WBC (Bld) 62.7 % Normal 47-70 [facility] Comment on above: Order Comment: 510- Performed By: #### L 100.0100 #### [facility] [address] [place], [address] Nucleated red blood cell per centageOrdered By: Everett Cantor on 12-02-2024 Nucleated RBC/100 WBC (Bld) [Ratio] 0 % 0-5 [facility] Platelet countOrdered By: Caesar Cantor on 12-02-2024 Platelets (Bld) [#/Vol] 414 10*3/uL Normal 150-450 [facility] Comment on above: Order Comment: 510- Performed By: #### L 100.0100 #### [facility] [address] [place], [place], [address] Potassium measurement (mass/ volume)Ordered By: Everett Cantor on 12-02-2024 Potassium (Unsp spec) [Mass/Vol] 4.4 mmol/L 3.3-5.1 [facility] Serum creatinine measurement (mass/volume)Ordered By: Everett Cantor on 12-02-2024 Creatinine [Mass/Vol] 0.63 mg/dL Low 0.70-1.20 [facility] Comment on above: Order Comment: 510- Performed By: #### L 100.0100 #### [facility] [address] [place], [address] Serum glucose measurement (m ass/volume)Ordered By: Everett Cantor on 12-02-2024 Glucose [Mass/Vol] 90 mg/dL Normal 70-99 [facility] Comment on above: Order Comment: 510- Performed By: #### L 100.0100 #### [facility] [address] [place], [address] Serum or plasma calcium riky urement (mass/volume)Ordered By: Everett Cantor on 12-02-2024 Calcium [Mass/Vol] 9.6 mg/dL Normal 7.6-11.0 [facility] Comment on above: Order Comment: 510-1 Performed By: #### L 100.0100 #### [facility] [address] [place], [place], [id number] Serum or plasma urea nitroge n measurement (mass/volume)Ordered By: Everett Cantor on 12-02-2024 Urea nitrogen [Mass/Vol] 16 mg/dL Normal 4-19 [facility] Comment on above: Order Comment: 510-1 Performed By: #### L 100.0100 #### [facility] [address] [place], [place], [address] Sodium levelOrdered By: Luis Cantor on 12-02-2024 Sodium [Moles/Vol] 140 mmol/L Normal 133-145 [facility] Comment on above: Order Comment: 510-1 Performed By: #### L 100.0100 #### [facility] [address] [place], [place], [id number] White blood cell (WBC) count Ordered By: Everett Cantor on 12-02-2024 WBC (Bld) [#/Vol] 10.5 10*3/uL Normal 4.4-11.0 [facility] Comment on above: Order Comment: 510-1 Performed By: #### L 100.0100 #### [facility] [address] [place], [place], [id number] Urine Cultureon 11-22-2024 URC Escherichia coli Byers Count >100,000 Proteus mirabilis Proteus mirabilis Escherichia [...] TMP SMX Islt MIRTHA <=20 S Normal [facility] Comment on above: Performed By: #### M 100.2199, L4.2010 #### [facility] [address] [place], [address] Urinalysis, Routine (Dipstic k)on 11-20-2024 BILIRUBIN URINE Negative Normal Negative [facility] Comment on above: Order Comment: CLEAN CATCH Performed By: #### M .2199, L4 #### [facility] [address] [place], [address] Clarity (U) Turbid Normal Clear [facility] Comment on above: Order Comment: CLEAN CATCH Performed By: #### M 100.2199, L400.2010 #### [facility] [address] [place], [address] Color (U) Yellow Normal Yellow [facility] Comment on above: Order Comment: CLEAN CATCH Performed By: #### M 100.2199, L400 #### [facility] [address] [place], [address] GLUCOSE, UR Normal Normal Normal [facility] Comment on above: Order Comment: CLEAN CATCH Performed By: #### M 100.0, L400 #### [facility] [address] [place], [address] KETONE UR Negative Normal Negative [facility] Comment on above: Order Comment: CLEAN CATCH Performed By: #### M , L4 #### [facility] [address] [place], [address] LEUK ESTERASE 500 /ul Abnormal Negative [facility] Comment on above: Order Comment: CLEAN CATCH Performed By: #### M 100, L4 #### [facility] [address] [place], [address] Nitrite Ql (U) Negative Normal Negative [facility] Comment on above: Order Comment: CLEAN CATCH Performed By: #### M , #### [facility] [address] [place], [address] OCCULT BLOOD-UR Negative Normal Negative [facility] Comment on above: Order Comment: CLEAN CATCH Performed By: #### M , #### [facility] [address] [place], [address] pH UR 8.0 Normal 5.0 - 8.0 [facility] Comment on above: Order Comment: CLEAN CATCH Performed By: #### M , L4 #### [facility] [address] [place], [address] PROT DIPSTX 500 mg/dl Abnormal Negative [facility] Comment on above: Order Comment: CLEAN CATCH Performed By: #### M , L4 #### [facility] [address] [place], [address] SP.GR. DIPSTX 1.010 Normal 1.002-1.030 [facility] Comment on above: Order Comment: CLEAN CATCH Performed By: #### M , L4 #### [facility] [address] [place], [address] UROBILI Normal Normal Normal [facility] Comment on above: Order Comment: CLEAN CATCH Performed By: #### M 100.2200, L400.2010 #### [facility] [address] [place], [place], [id number] Bilirubin Test strip Ql (U)O rdered By: Everett Cantor on 11-19-2024 Bilirubin Ql (U) Negative Negative [facility] Ketones Test strip Ql (U)Ord ered By: Everett Cantor on 11-19-2024 Ketones Ql (U) Negative Negative [facility] Nitrite Test strip Ql (U)Ord ered By: Everett Cantor on 11-19-2024 Nitrite Ql (U) Negative Negative [facility] Protein Test strip Ql (U)Ord ered By: Everett Cantor on 11-19-2024 Protein Ql (U) 500 mg/dl High Negative [facility] Urine clarityOrdered By: Alea Cantor on 11-19-2024 Clarity (U) Turbid Clear [facility] Urine color determinationOrd ered By: Everett Cantor on 11-19-2024 Color (U) Yellow Yellow [facility] Urine cultureOrdered By: Alea Cantor on 11-19-2024 Bacteria identified Cx Nom (U) Escherichia coli Abnormal [facility] Bacteria identified Cx Nom (U) Proteus mirabilis Abnormal [facility] Urine glucose detectionOrder ed By: Everett Cantor on 11-19-2024 Glucose Ql (U) Normal mg/dl Normal [facility] Urine leukocyte esterase det ection by dipstickOrdered By: Everett Cantor on 11-19-2024 Leukocyte esterase Test strip Ql (U) 500 /ul High Negative [facility] Urine pHOrdered By: Everett rodney on 11-19-2024 pH (U) 8.0 [pH] 5.0 - 8.0 [facility] Urine specific gravity measu rementOrdered By: Everett Cantor on 11-19-2024 Specific gravity (U) [Rel density] 1.010 1.002-1.030 [facility] Urine urobilinogen measureme ntOrdered By: Everett Cantor on 11-19-2024 Urobilinogen Ql (U) Normal mg/dl Normal [facility] Anion gap in Serum or Plasma Ordered By: Everett Cantor on 11-18-2024 Anion gap [Moles/Vol] 11 mmol/L 5-15 [facility] BUN/creatinine ratioOrdered By: Everett Cantor on 11-18-2024 Urea nitrogen/Creatinine [Mass ratio] 35.1 mg/mg High 10- [facility] Basic Metabolic Profile (BMP )on 11-18-2024 BUN/CRE 35.1 RATIO High 10-20 [facility] Comment on above: Order Comment: 510-1 Performed By: #### L 100.0100 #### [facility] [address] [place], [address] Calcium [Mass/Vol] 9.6 mg/dL Normal 7.6-11.0 [facility] Comment on above: Order Comment: 510-1 Performed By: #### L 100.0100 #### [facility] [address] [place], [address] Chloride [Moles/Vol] 109 mmol/L High 98-108 [facility] Comment on above: Order Comment: 510-1 Performed By: #### L 100.0100 #### [facility] [address] [place], [address] CO2 [Moles/Vol] 26.3 mmol/L Normal 21.0-32.0 [facility] Comment on above: Order Comment: 510-1 Performed By: #### L 100.0100 #### [facility] [address] [place], [address] Creatinine [Mass/Vol] 0.67 mg/dL Low 0.70-1.20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 at [facility], they were unaware of the appointments [...] MA - Fully Assessed 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, [address] Ferritin measurementOrdered By: Josi Garcia on 03-31-2024 Ferritin [Mass/Vol] 16 ng/mL 8-252 [facility] Ironon 03-31-2024 Iron [Mass/Vol] 35 ug/dL Low 50-170 [facility] Comment on above: Order Comment: 510.1 Performed By: #### L 503.6150, V390.3089 ####[facility] [address] [place], [place], [address] Iron (Unsp spec) [Mass/Mass] Ordered By: Josi Garcia on 03-31-2024 Iron [Mass/Vol] 35 ug/dL Low 50-170 [facility] 61-MD-Ehsoudn DOrdered By: Tex Garcia on 03-28-2024 Vitamin D 25-Hydroxy 26.4 ng/mL [facility] Comment on above: Vitamin D 25(OH) Sta tus Range Deficiency <20 ng/mL (50nmol/L) Insufficiency 20 - 30 ng/mL (50 - 75 nmol/L) Sufficiency 30 - 100 ng/mL (75 - 250 nmol/L) Toxicity >100 ng/mL (>250 nmol/L) Vitamin B12 measurementOrder ed By: Josi Garcia on 03-28-2024 Cobalamin (Vitamin B12) [Mass/Vol] 290 pg/mL Normal 211-911 [facility] Comment on above: Order Comment: 510.1 Performed By: #### L 506.1000, L503.0105 ####[facility] [address] [place], [address] Vitamin D,25 Hydroxyon 03-28 Vitamin D 25-OH 26.4 ng/mL Normal [facility] Comment on above: Order Comment: 510.1 Result Comment: Kemi min D 25(OH) Status Range Deficiency <20 ng/mL (50nmol/L) Insufficiency 20 - 30 ng/mL (50 - 75 nmol/L) Sufficiency 30 - 100 ng/mL (75 - 250 nmol/L) Toxicity >100 ng/mL (>250 nmol/L) Performed By: #### L 506.1000, L503.0105 ####[facility] [address] [place], [address] Absolute neutrophil countOrd ered By: Josi Garcia on 03-27-2024 Neutrophils (Bld) [#/Vol] 4.8 10*3/uL 2.0-7.7 [facility] Basic Metabolic Profile (BMP )on 03-27-2024 BUN/CRE 23.0 RATIO High 10-20 [facility] Comment on above: Order Comment: 510-1 Performed By: #### L 500.2500, L501.5200, L501.9985, L500.4100, L100.0100, L501.9520 ####[facility] [address] [place], [address] CA,Total 9.6 mg/dL Normal 8.5-10.1 [facility] Comment on above: Order Comment: 510-1 Performed By: #### L 500.2500, L501.5200, L501.9985, L500.4100, L100.0100, L501.9520 ####[facility] [address] [place], [address] Chloride [Moles/Vol] 107 mmol/L Normal 98-107 [facility] Comment on above: Order Comment: 510-1 Performed By: #### L 500.2500, L501.5200, L501.9985, L500.4100, L100.0100, L501.9520 ####[facility] [address] [place], [address] CO2 [Moles/Vol] 30.0 mmol/L Normal 21.0-32.0 [facility] Comment on above: Order Comment: 510-1 Performed By: #### L 500.2500, L501.5200, L501.9985, L500.4100, L100.0100, L501.9520 ####[facility] [address] [place], [address] Creatinine [Mass/Vol] 0.48 mg/dL Low 0.55-1.02 [facility] Comment on above: Order Comment: 510-1 Result Comment: The validity of the calculated GFR GFRAA in patients over 70 years has not been determined. Clinical correlation is essential. Performed By: #### L 500.2500, L501.5200, L501.9985, L500.4100, L100.0100, L501.9520 ####[facility] [address] [place], [address] EST GFR - AA 170 mL/min Normal >60 [facility] Comment on above: Order Comment: 510-1 Result Comment: Afri can Burkinan GFR Calc Performed By: #### L 500.2500, L501.5200, L501.9985, L500.4100, L100.0100, L501.9520 ####[facility] [address] [place], [address] GAP 4 Low 5-15 [facility] Comment on above: Order Comment: 510-1 Performed By: #### L 500.2500, L501.5200, L501.9985, L500.4100, L100.0100, L501.9520 ####[facility] [address] [place], [address] GFR/1.73 sq M.predicted among non-blacks MDRD (S/P/Bld) [Vol rate/Area] 141 mL/min/{1.73_m2} Normal >60 [facility] Comment on above: Order Comment: 510-1 Result Comment: Non- GFR Calc Performed By: #### L 500.2500, L501.5200, L501.9985, L500.4100, L100.0100, L501.9520 ####[facility] [address] [place], [address] Glucose [Mass/Vol] 96 mg/dL Normal 74-106 [facility] Comment on above: Order Comment: 510-1 Performed By: #### L 500.2500, L501.5200, L501.9985, L500.4100, L100.0100, L501.9520 ####[facility] [address] [place], [address] Potassium [Moles/Vol] 3.8 mmol/L Normal 3.5-5.1 [facility] Comment on above: Order Comment: 510-1 Performed By: #### L 500.2500, L501.5200, L501.9985, L500.4100, L100.0100, L501.9520 ####[facility] [address] [place], [address] Sodium [Moles/Vol] 141 mmol/L Normal 136-145 [facility] Comment on above: Order Comment: 510-1 Performed By: #### L 500.2500, L501.5200, L501.9985, L500.4100, L100.0100, L501.9520 ####[facility] [address] [place], [address] Urea nitrogen [Mass/Vol] 11 mg/dL Normal 7-18 [facility] Comment on above: Order Comment: 510-1 Performed By: #### L 500.2500, L501.5200, L501.9985, L500.4100, L100.0100, L501.9520 ####[facility] [address] [place], [address] Basophil percentageOrdered B y: Josi Garcia on 03-27-2024 Basophils/100 WBC (Bld) 0.5 % 0-1 [facility] Blood urea nitrogen (BUN)/cr eatinine ratioOrdered By: Josi Garcia on 03-27-2024 Urea nitrogen/Creatinine [Mass ratio] 23.0 mg/mg High 10-20 [facility] CBC W/Diff, Automatedon Absolute Lymph 2.32 X10 3/uL Normal 0.83-4.51 [facility] Comment on above: Order Comment: 510-1 Performed By: #### L 500.2500, L501.5200, L501.9985, L500.4100, L100.0100, L501.9520 ####[facility] [address] [place], [address] Absolute Neut 4.8 X10 3/uL Normal 2.0-7.7 [facility] Comment on above: Order Comment: 510-1 Performed By: #### L 500.2500, L501.5200, L501.9985, L500.4100, L100.0100, L501.9520 ####[facility] [address] [place], [address] Basophils/100 WBC (Bld) 0.5 % Normal 0-1 [facility] Comment on above: Order Comment: 510-1 Performed By: #### L 500.2500, L501.5200, L501.9985, L500.4100, L100.0100, L501.9520 ####[facility] [address] [place], [address] Eosinophils/100 WBC (Bld) 1.7 % Normal 0-5 [facility] Comment on above: Order Comment: 510-1 Performed By: #### L 500.2500, L501.5200, L501.9985, L500.4100, L100.0100, L501.9520 ####[facility] [address] [place], [address] Erythrocyte distribution width (RBC) [Ratio] 13.1 % Normal 11.6-14.6 [facility] Comment on above: Order Comment: 510-1 Performed By: #### L 500.2500, L501.5200, L501.9985, L500.4100, L100.0100, L501.9520 ####[facility] [address] [place], [address] Hematocrit (Bld) [Volume fraction] 34.1 % Low 37-47 [facility] Comment on above: Order Comment: 510-1 Performed By: #### L 500.2500, L501.5200, L501.9985, L500.4100, L100.0100, L501.9520 ####[facility] [address] [place], [address] Hemoglobin (Bld) [Mass/Vol] 10.6 g/dL Low 12.0-15.0 [facility] Comment on above: Order Comment: 510-1 Performed By: #### L 500.2500, L501.5200, L501.9985, L500.4100, L100.0100, L501.9520 ####[facility] [address] [place], [address] IG% 0.400 Normal 0.0-0.9 [facility] Comment on above: Order Comment: 510-1 Result Comment: IG% - Immature Granulocytes (promyelocytes, myelocytes and metamyelocytes) > 1% indicates that a LEFT SHIFT is Present. Performed By: #### L 500.2500, L501.5200, L501.9985, L500.4100, L100.0100, L501.9520 ####[facility] [address] [place], [address] Lymphocytes/100 WBC (Bld) 29.8 % Normal 19-41 [facility] Comment on above: Order Comment: 510-1 Performed By: #### L 500.2500, L501.5200, L501.9985, L500.4100, L100.0100, L501.9520 ####[facility] [address], [address] MCH (RBC) [Entitic mass] 28.7 pg Normal 27.0-32.0 [facility] Comment on above: Order Comment: 510-1 Performed By: #### L 500.2500, L501.5200, L501.9985, L500.4100, L100.0100, L501.9520 ####[facility] [address] [place], [address] MCHC (RBC) [Mass/Vol] 31.1 g/dL Low 32-36 [facility] Comment on above: Order Comment: 510-1 Performed By: #### L 500.2500, L501.5200, L501.9985, L500.4100, L100.0100, L501.9520 ####[facility] [address] [place], [address] MCV (RBC) [Entitic vol] 92.4 fL Normal 81-99 [facility] Comment on above: Order Comment: 510-1 Performed By: #### L 500.2500, L501.5200, L501.9985, L500.4100, L100.0100, L501.9520 ####[facility] [address] [place], [address] Monocytes/100 WBC (Bld) 6.3 % Normal 0-10 [facility] Comment on above: Order Comment: 510-1 Performed By: #### L 500.2500, L501.5200, L501.9985, L500.4100, L100.0100, L501.9520 ####[facility] [address] [place], [address] Neutrophils/100 WBC (Bld) 61.3 % Normal 47-70 [facility] Comment on above: Order Comment: 510-1 Performed By: #### L 500.2500, L501.5200, L501.9985, L500.4100, L100.0100, L501.9520 ####[facility] [address] [place], [address] Nucleated RBC (Bld) [#/Vol] 0 10*3/uL Normal 0-5 [facility] Comment on above: Order Comment: 510-1 Performed By: #### L 500.2500, L501.5200, L501.9985, L500.4100, L100.0100, L501.9520 ####[facility] [address] [place], [address] Platelet mean volume (Bld) [Entitic vol] 9.6 fL Normal 6.2-12.0 [facility] Comment on above: Order Comment: 510-1 Performed By: #### L 500.2500, L501.5200, L501.9985, L500.4100, L100.0100, L501.9520 ####[facility] [address] [place], [address] Platelets (Bld) [#/Vol] 283 10*3/uL Normal 150-450 [facility] Comment on above: Order Comment: 510-1 Performed By: #### L 500.2500, L501.5200, L501.9985, L500.4100, L100.0100, L501.9520 ####[facility] [address] [place], [address] RBC (Bld) [#/Vol] 3.69 10*6/uL Low 4.2-5.4 [facility] Comment on above: Order Comment: 510-1 Performed By: #### L 500.2500, L501.5200, L501.9985, L500.4100, L100.0100, L501.9520 ####[facility] [address] [place], [address] RDW SD 44.1 fl High 35.1-43.9 [facility] Comment on above: Order Comment: 510-1 Performed By: #### L 500.2500, L501.5200, L501.9985, L500.4100, L100.0100, L501.9520 ####[facility] [address] [place], [address] WBC (Bld) [#/Vol] 7.8 10*3/uL Normal 4.4-11.0 [facility] Comment on above: Order Comment: 510-1 Performed By: #### L 500.2500, L501.5200, L501.9985, L500.4100, L100.0100, L501.9520 ####[facility] [address] [place], [address] Carbon dioxide measurementOr dered By: Josi Garcia on 03-27-2024 CO2 [Moles/Vol] 30.0 mmol/L 21.0-32.0 [facility] Chloride measurementOrdered By: Josi Garcia on 03-27-2024 Chloride [Moles/Vol] 107 mmol/L 98-107 [facility] Eosinophil percentageOrdered By: Josi Garcia on 03-27-2024 Eosinophils/100 WBC (Bld) 1.7 % 0-5 [facility] Erythrocyte distribution wid th ratioOrdered By: Josi Garcia on 03-27-2024 Erythrocyte distribution width (RBC) [Ratio] 13.1 % 11.6-14.6 [facility] Erythrocyte distribution wid th standard deviationOrdered By: Josi Garcia on 03-27-2024 Erythrocyte distribution width (RBC) [Entitic vol] 44.1 fL High 35.1-43.9 [facility] Estimated glomerular filtrat ion rate (GFR) AmericanOrdered By: Josi Garcia on 03-27-2024 Estimated GFR (MDRD) Amer 170 mL/min >60 [facility] Comment on above: GFR Calc Glomerular filtration rate ( GFR) estimationOrdered By: Josi Garcia on 03-27-2024 Estimated GFR (MDRD) Non-Af Amer 141 mL/min >60 [facility] Comment on above: Non- GFR Calc Glucose measurementOrdered B y: Josi Garcia on 03-27-2024 Glucose [Mass/Vol] 96 mg/dL 74-106 [facility] Hematocrit Auto (Bld) [Volum e fraction]Ordered By: Josi Garcia on 03-27-2024 Hematocrit (Bld) [Volume fraction] 34.1 % Low 37-47 [facility] Hemoglobin A1con 03-27-2024 HbA1c (Bld) [Mass fraction] 5.4 % Normal 3.8-5.6 [facility] Comment on above: Order Comment: 510-1 Result Comment: Norm al < 5.7 % Prediabetic 5.7 - 6.4 % Diabetic >or= 6.5 % Please note range changes. Performed By: #### L 500.2500, L501.5200, L501.9985, L500.4100, L100.0100, L501.9520 ####[facility] [address] [place], [address] Hemoglobin A1c percentageOrd ered By: Josi Garcia on 03-27-2024 HbA1c (Bld) [Mass fraction] 5.4 % 3.8-5.6 [facility] Comment on above: Normal < 5.7 % Predi abetic 5.7 - 6.4 % Diabetic >or= 6.5 % Please note range changes. Hemoglobin measurementOrdere d By: Josi Garcia on 03-27-2024 Hemoglobin (Bld) [Mass/Vol] 10.6 g/dL Low 12.0-15.0 [facility] High density lipoprotein (HD L) measurementOrdered By: Josi Garcia on 03-27-2024 Cholesterol in HDL [Mass/Vol] 61 mg/dL >40 [facility] Comment on above: The drugs N-Acetylcy steine and Metamizole may falsely depress this assay. Reference Range HDL <40 mg/dL Low HDL Cholesterol HDL >or= 60 mg/dL High HDL Cholesterol Immature granulocytes/100 WB C Auto (Bld)Ordered By: Josi Garcia on 03-27-2024 Immature granulocytes/100 WBC (Bld) 0.400 % 0.0-0.9 [facility] Comment on above: IG% - Immature Granu locytes (promyelocytes, myelocytes and metamyelocytes) > 1% indicates that a LEFT SHIFT is Present. Lipid Profileon 03-27-2024 Cholesterol [Mass/Vol] 150 mg/dL Normal 200 [facility] Comment on above: Order Comment: 510-1 Result Comment: <200 mg/dL Desirable 200-240 mg/dL Borderline >240 mg/dL High Risk Performed By: #### L 500.2500, L501.5200, L501.9985, L500.4100, L100.0100, L501.9520 ####[facility] [address] [place], [address] Cholesterol in HDL [Mass/Vol] 61 mg/dL Normal [facility] Comment on above: Order Comment: 510-1 Result Comment: The drugs N-Acetylcysteine and Metamizole may falsely depress this assay. Reference Range HDL <40 mg/dL Low HDL Cholesterol HDL >or= 60 mg/dL High HDL Cholesterol Performed By: #### L 500.2500, L501.5200, L501.9985, L500.4100, L100.0100, L501.9520 ####[facility] [address] [place], [address] Cholesterol in LDL [Mass/Vol] 64 mg/dL Normal 0-130 [facility] Comment on above: Order Comment: 510-1 Performed By: #### L 500.2500, L501.5200, L501.9985, L500.4100, L100.0100, L501.9520 ####[facility] [address] [place], [address] Cholesterol in VLDL [Mass/Vol] 25 mg/dL Normal 5-40 [facility] Comment on above: Order Comment: 510-1 Performed By: #### L 500.2500, L501.5200, L501.9985, L500.4100, L100.0100, L501.9520 ####[facility] [address] [place], [address] Triglyceride [Mass/Vol] 127 mg/dL Normal [facility] Comment on above: Order Comment: 510-1 Result Comment: The drugs N-Acetylcysteine and Metamizole may falsely depress this assay. Serum Triglycerides Reference Interval Normal <150 mg/dL Borderline high 150 - 199 mg/dL High 200 - 499 mg/dL Very High > or = 500 mg/dL Performed By: #### L 500.2500, L501.5200, L501.9985, L500.4100, L100.0100, L501.9520 ####[facility] [address] [place], [address] Low density lipoprotein (LDL ) cholesterol measurementOrdered By: Josi Garcia on 03-27-2024 Cholesterol in LDL [Mass/Vol] 64 mg/dL 0-130 [facility] Lymphocytes Auto (Unsp spec) [#/Vol]Ordered By: Josi Garcia on 03-27-2024 Lymphocytes (Bld) [#/Vol] 2.32 10*3/uL 0.83-4.51 [facility] Lymphocytes/100 WBC Auto (Un sp spec)Ordered By: Josi Garcia on 03-27-2024 Lymphocytes/100 WBC (Bld) 29.8 % 19-41 [facility] MCV (mean corpuscular volume ) determinationOrdered By: Josi Garcia on 03-27-2024 MCV (RBC) [Entitic vol] 92.4 fL 81-99 [facility] Magnesiumon 03-27-2024 Magnesium [Mass/Vol] 2.1 mg/dL Normal 1.6-2.6 [facility] Comment on above: Order Comment: 510-1 Performed By: #### L 500.2500, L501.5200, L501.9985, L500.4100, L100.0100, L501.9520 ####[facility] [address] [facility] [place], [place], [address] Magnesium measurementOrdered By: Josi Garcia on 03-27-2024 Magnesium [Mass/Vol] 2.1 mg/dL 1.6-2.6 [facility] Mean corpuscular hemoglobin (MCH) determinationOrdered By: Josi Garcia on 03-27-2024 MCH (RBC) [Entitic mass] 28.7 pg 27.0-32.0 [facility] Mean corpuscular hemoglobin concentration (MCHC) determinationOrdered By: Josi Garcia on 03-27-2024 MCHC (RBC) [Mass/Vol] 31.1 g/dL Low 32-36 [facility] Mean platelet volume determi nationOrdered By: Josi Garcia on 03-27-2024 Platelet mean volume (Bld) [Entitic vol] 9.6 fL 6.2-12.0 [facility] Monocyte percentageOrdered B y: Josi Garcia on 03-27-2024 Monocytes/100 WBC (Bld) 6.3 % 0-10 [facility] Neutrophil percentageOrdered By: Josi Garcia on 03-27-2024 Neutrophils/100 WBC (Bld) 61.3 % 47-70 [facility] Nucleated red blood cell per centageOrdered By: Josi Garcia on 03-27-2024 Nucleated RBC/100 WBC (Bld) [Ratio] 0 % 0-5 [facility] Platelet countOrdered By: Chuy Garcia on 03-27-2024 Platelets (Bld) [#/Vol] 283 10*3/uL 150-450 [facility] Potassium measurementOrdered By: Josi Garcia on 03-27-2024 Potassium [Moles/Vol] 3.8 mmol/L 3.5-5.1 [facility] RBC Auto (Bld) [#/Vol]Ordere d By: Josi Garcia on 03-27-2024 RBC (Bld) [#/Vol] 3.69 10*6/uL Low 4.2-5.4 [facility] Serum anion gap measurementO rdered By: Josi Garcia on 03-27-2024 Anion gap [Moles/Vol] 4 mmol/L Low 5-15 [facility] Serum or plasma calcium riky urement (mass/volume)Ordered By: Josi Garcia on 03-27-2024 Calcium [Mass/Vol] 9.6 mg/dL 8.5-10.1 [facility] Serum or plasma cholesterol measurement (mass/volume)Ordered By: Josi Garcia on 03-27-2024 Cholesterol [Mass/Vol] 150 mg/dL <200 [facility] Comment on above: <200 mg/dL Desirable 200-240 mg/dL Borderline >240 mg/dL High Risk Serum or plasma creatinine m easurement (mass/volume)Ordered By: Josi Garcia on 03-27-2024 Creatinine [Mass/Vol] 0.48 mg/dL Low 0.55-1.02 [facility] Comment on above: The validity of the calculated GFR & GFRAA in patients over 70 years has not been determined. Clinical correlation is essential. Serum or plasma urea nitroge n measurement (mass/volume)Ordered By: Josi Garcia on 03-27-2024 Urea nitrogen [Mass/Vol] 11 mg/dL 7-18 [facility] Sodium levelOrdered By: Vanna Garcia on 03-27-2024 Sodium [Moles/Vol] 141 mmol/L 136-145 [facility] TSH QnOrdered By: Josi ayala on 03-27-2024 Thyroid Stimulating Hormone (TSH) 2.360 uIU/mL 0.358-3.740 [facility] Thyroid Stim Hormone (TSH)on 03-27-2024 TSH 2.360 uIU/mL Normal 0.358-3.740 [facility] Comment on above: Order Comment: 510-1 Performed By: #### L 500.2500, L501.5200, L501.9985, L500.4100, L100.0100, L501.9520 ####[facility] [address] [place], [address] Triglycerides measurementOrd ered By: Josi Garcia on 03-27-2024 Triglyceride [Mass/Vol] 127 mg/dL <199 [facility] Comment on above: The drugs N-Acetylcy steine and Metamizole may falsely depress this assay.Serum Triglycerides Reference Interval Normal <150 mg/dL Borderline high 150 - 199 mg/dL High 200 - 499 mg/dL Very High > or = 500 mg/dL Very low density lipoprotein (VLDL) cholesterol measurementOrdered By: Josi Garcia on 03-27-2024 VLDL Cholesterol 25 mg/dL 5-40 [facility] White blood cell (WBC) count Ordered By: Josi Garcia on 03-27-2024 WBC (Bld) [#/Vol] 7.8 10*3/uL 4.4-11.0 [facility] Crissy 03-24-2024 CHRISTIANON Telephone ([facility]) DIOR CARVAJAL ([id number]) 1965 F Date Time Provider Department 03/24/24 MINI WHYTE NSCAMN During your visit today, we recorded the following information about you: Gerda Dee, ALMA 03/24/2024 4:19 PM Signed Contacted [facility] jail regarding appointments scheduled for 04/02/24 (xray, MRA) and visit with Dr Spears on 04/07. I was told she is moving today to [facility] in [facility]. I confirmed all her upcoming appointments and was told her appointment sheet will be sent with her to [place]. I called and left a message for her sister Katie regarding her 04/02 imaging studies and appointment with Dr Spears on 04/07 Patient has prednisone for her MRI scheduled for 05/26 but will need refill for the 04/02 scans. Refill sent to Dr Spears. Gerda Dee, RN, BSN Director Informatics [facility] [...] Status:Closed by GERDA DEE on 03/24/24 Normal [facility] CNCOon 03-14-2024 CNCO Letter Text Normal [facility] CNPNikky 03-10-2024 CNPN Telephone ([facility]) DIOR CARVAJAL ([id number]) 1965 F Date Time Provider Department 03/10/24 MINI WHYTE NSCAMN During your visit today, we recorded the following information about you: Annabelle George 03/10/2024 1:29 PM Signed General Call Caller : Nieves Stokes [facility] Contact or [phone] Reason for Call : Pt is scheduled [...] instructions copied and faxed to Nieves fax [phone]- [phone] completed on 03/11 @ 14;42 pm Prednisone 50mg is to be given starting 13 hours before scheduled MRi (on 05/26 @ 9:10 )am, 7 hours before and 1 hour before- for a total of 3 doses of 50mg each. 32- 8 pm 05/26- 2 am 3- 8 am Gerda Dee, RN, BSN Director Informatics [facility] [...] Encounter Status:Closed by GERDA DEE on 03/11/24 [facility] Crissy 03-05-2024 [facility] Telephone ([facility]) DIOR CARVAJAL ([id number]) 1965 F Date Time Provider Department 03/05/24 NEUROLOGY PROVIDER [facility] During your visit today, we recorded the following information about you: Nano Ojeda 03/05/2024 5:48 PM Signed Consult Received: Today Dorcas Nova Cv Triage Please schedule below request. Patient resides At [facility] [phone]-let them know of any appointments. Scheduling Request [...] Encounter Status:Closed by NANO OJEDA on 03/10/24 [facility] 03-04-2024 [facility] Telephone ([facility]) DIOR CARVAJAL ([id number]) 1965 F Date Time Provider Department 03/04/[address] [facility] During your visit today, we recorded the [...] Encounter Status:Closed by MARC PINA on [facility]08/[facility] DIOR CARVAJAL ([id number]) 1965 F Date Time Provider Department 03/04/[address] [facility] During your visit today, we recorded the following information about you: Marc Pina RN 03/04/2024 3:56 PM Addendum Scheduling Request - est Patient Time Frame: next available Orders: MRA brain, MRA carotid, MRI cervical spine, XR CERVICAL 2V FLEX/EXT - Ok to arrange close scan close to [place] Visit type: In person within a week from scans with Dr. Spears in person Diagnosis: brain tumor Patient lives in a facility and needs transportation arranged. PLease call [facility] [phone]-let them know of any appointments. Nova Dorcas [...] Encounter Status:Closed by DORCAS NOVA on 03/17/24 [facility] Telephone ([facility]) DIOR CARVAJAL ([id number]) 1965 F Date Time Provider Department 03/04/24 MINI WHYTE [facility] During your visit today, we recorded the following information about you: Marc Pina RN 03/04/2024 3:53 PM Addendum Patient resides At [facility] [phone]-let them know of any appointments. Scheduling Request [...] Time Frame: next available Orders: consult to [facility] - dementia Provider or Provider Group: [...] Status:Closed by DORCAS NOVA on 03/17/24 Normal [facility] CNOVon 02-28-2024 CNOV Office Visit ([facility] ) DIOR CARVAJAL ([id number]) 1965 F Date Time Provider Department 02/28/24 [...] No Does patient want to see a Timers Inspector? No (yes to any of above refer [...] is accompanied by a staff at the senior living facility where she resides, [place]. Subjective History of Present Illness: Mrs. 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 NEVER HAD CHEMO However on some [facility] Notes is says - patient had chemo-radiation. 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 SOCIAL: -Patient resides in [facility] -Sister Laureen SARGENT Therapy Status Data Form [...] Smoking statu (more content not included)... Normal [facility] MR Brain WO contraston 02-27 IMPRESSION: [...] abnormality. Age advanced moderate parenchymal volume loss. Milling Supervisor: [facility] Transcribe Date/Time: Feb 28 2024 2:24P Dictated by : LEONORA CUELLAR MD This examination was interpreted and the report reviewed and electronically signed by: LEONORA CUELLAR MD on Feb 28 2024 2:37PM [facility] DIVISION OF RADIOLOGY * * *Final Report* * * DATE OF EXAM: Feb 28 2024 2:16PM [facility] 0294 - MRI BRAIN WO IVCON / [...] tissues are unremarkable. DIVISION OF RADIOLOGY Provider, [facility] - 02/28/2024 * * *Final [...] abnormality. Age advanced moderate parenchymal volume loss. Milling Supervisor: [facility] Transcribe Date/Time: Feb 28 2024 2:24P Dictated by : LEONORA CUELLAR MD This examination was interpreted and the report reviewed and electronically signed by: LEONORA CUELLAR MD on Feb 28 2024 2:37PM EST [facility] Radiology Study observation (narrative) [facility] MR Brain WO contrastOrdered By: Ccf Provider on 02-28-2024 [facility] MRI BRAIN WO IVCONon 024 MRI [...] Consider follow-up MRI brain to reassure stability. Milling Supervisor: MAGUI Transcribe Date/Time: Mar 04 2024 11:20A Dictated by : LEONORA CUELLAR MD This examination was interpreted and the report reviewed and electronically signed by: LEONORA CUELLAR MD on Feb 28 2024 2:37PM EST This document has been addended by: LEONORA CUELLAR MD on Mar 04 2024 11:48AM EST [id number] Normal [facility] CNOVon 02-13-2024 CNOV Office Visit (PSYTMN ) DIOR CARVAJAL ([id number]) 1965 F Date Time Provider Department 02/13/24 12:30 PM BINDU BURT PSYTMN During your visit today, we recorded the following information about you: Bindu Burt, PhD 02/29/2024 4:56 PM Signed [facility] Department of Neurology Section of Neuropsychology Neuropsychological Evaluation Report CONFIDENTIAL Patient: Dior Carvajal Referred by: Mini Whyte Date of : 1965 Date of Evaluation: 02/13/2024 SUMMARY/IMPRESSIONS: The patient is a 59-year-old, White, female, referred for a neuropsychological evaluation by Mini Whyte MD in the [facility]. 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 Of note, the patient reported [...] astrocytoma s/p right frontal tumor resection at [facility] on 04/27/1992. She is unsure whether she [...] the patient. IADL/ADL: She has resided in [facility], a jail facility, since 08/05/2022. Her family visits her frequently and is reportedly involved in he (more content not included)... Normal [facility] CREATININE, BLOOD (POC)on Creatinine [Mass/Vol] 0.60 mg/dL 0.6 - 1.3 mg/dL [facility] eGFR (POCT) mL/min/1.73 m2 [facility] Location:Radiology [address] , [place], [place], [address] [place] [address] POINT OF CARE [facility] CT Head W contrast Sherice 10-0 IMPRESSION: No acute intracranial process. Remote history of RIGHT frontal craniotomy for underlying mass resection, with redemonstrated RIGHT frontal encephalomalacia and gliosis. No overt evidence of disease progression or recurrence on CT, however this is better evaluated with MR brain without and with contrast. Milling Supervisor: P[facility] Transcribe Date/Time: Dec 25 2023 1:22P Dictated by : KATTY DAI MD This examination was interpreted and the report reviewed and electronically signed by: KATTY DAI MD on Dec 25 2023 1:30PM [facility] DIVISION OF RADIOLOGY * * *Final [...] tissues are unremarkable. DIVISION OF RADIOLOGY Provider, [facility] - 12/25/2023 * * *Final Report* * * DATE OF EXAM: Dec 25 2023 12:25PM [facility] - CT BRAIN W IVCON / [...] with MR brain without and with contrast. Milling Supervisor: MAGUI Transcribe Date/Time: Dec 25 2023 1:22P Dictated by : KATTY DAI MD This examination was interpreted and the report reviewed and electronically signed by: KATTY DAI MD on Dec 25 2023 1:30PM EST [facility] Radiology Study observation (narrative) [facility] CT Head W contrast IVOrdered By: Ccf Provider on 12-25-2023 [facility] Crissy 08-04-2022 RICHARD Telephone ([facility]) DIOR CARVAJAL ([id number]) 1965 F Date Time Provider Department 08/04/22 LEELA ESCOTO During your visit today, we recorded the following information about you: Adalberto Woods MA 08/04/2022 3:45 PM Signed Patient left message stating her handicap parking placard is going to be expiring and she would like an order for a new one mailed to [address] [place] [address]. Please advise. GEOFF Rowe DO 08/04/2022 3:48 [...] involving multiple joints [M15.9] Order(s):PARKING FOR HANDICAPPED [[id number]] Order #: [id number] Prescriptions as of 08/07/2022 - traMADol (ULTRAM) [...] Encounter Status:Closed by ADALBERTO WOODS on 08/07/22 [facility] Telephone (LAURA) DIOR CARVAJAL ([id number]) 1965 F Date Time Provider Department 07/19/22 RILEY PALMER During your visit today, we recorded the following information about you: Riley Palmer MA 07/19/2022 8:58 AM Signed Message left on vm. Patient needs apt. To get into long care facitly . Please contact Katie at [phone] to schedule apt. Thanks. GEOFF Juárez MA 07/26/2022 1:35 PM Signed Patient had a wellness visit on 12/02/21. Called Katie and left message requesting she call back and let us know what the letter needs to state. GEOFF Rowe MA 07/26/2022 3:44 PM Signed Pt. Daughter katie [phone] states letter needs to say pt. Needs senior living care. GEOFF Juárez DO 07/27/2022 4:24 PM Signed Is her daughter trying to get her into an extended care facility? Is she trying to get insurance to pay for it? 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 Thanks DO Riley Oakes MA 07/28/2022 7:36 AM Signed Left message on tonyas vm to call us back with all this information. GEOFF Juárez MA 07/28/2022 9:02 AM Signed Katie stern on vm requesting a call after 9. Called and left another message to call back. GEOFF uJárez MA 07/28/2022 9:07 AM Signed Katie lm stating Dior cannot stand anymore, she needs help to get up and transferred to toilet and tub. Marlene has dropped her and cant take care of her anymore. Ktaie states they are also trying to get her dad in a facility (usp also). Please advise. GEOFF Juárez MA 07/28/2022 11:40 AM Signed [facility] in [place] will be faxing over information. GEOFF Juárez MA 07/28/2022 2:41 PM Addendum [facility] sent fax stating they need current h+p with medication list, doctors order that states jail placement is needed. Riley Palmer MA Placed in green folder to review Please advise what to send. Thank you Leela Escoto DO 07/31/2022 1:36 PM Signed Letter printed DO Adalberto Oakes MA 07/31/2022 3:09 PM Signed Letter, last office visit and snap shot faxed to [facility] as requested [phone]. Adalberto Woods MA Allergies As of Date: [...] Encounter Status:Closed by RILEY PALMER on 07/19/22 [facility] CNOVon 05-25-2022 CNOV Office Visit (LAURA) DIOR CARVAJAL ([id number]) 1965 F Date Time Provider Department 05/25/22 [...] pt's [facility] and cannot go to another pharmacy - OXYCODONE 5 MG TABLET 3. Grief - ICD9: 309.0, ICD10: F43.21 Pt's son in February 26. Smoker - ICD9: 305.1, ICD1 (more content not included)... Normal [facility] CNPNikky 05-25-2022 [facility] Telephone (MAREFAMPBRUNO) DIOR CARVAJAL ([id number]) 1965 F Date Time Provider Department 05/25/22 LEELA ESCOTO During your visit today, we recorded the following information about you: Xochitl Torres MA 05/25/2022 11:51 AM Signed ----- Message from Leela Escoto DO sent at 05/25/2022 11:40 AM EST ----- Please call [facility] pharmacy and find out when they will be getting tramadol back DO Xochitl Oakes MA 05/25/2022 11:52 AM Signed Left a message for the pharmacy to call back and let us know. GEOFF Gong MA 05/26/2022 7:57 AM Signed Pharmacy left message on voicemail stating they are not sure when they will get it in. GOEFF Juárez DO 05/26/2022 8:44 AM Signed Please [...] Encounter Status:Closed by XOCHITL TORRES on 05/25/22 [facility] UA DIP, URINE (POC)on 2022 BILIRUBIN UA (POCT) Negative Negative [facility] CLARITY UA (POCT) [facility]y [facility] COLOR UA (POCT) Dark yellow [facility] GLUCOSE UA (POCT) Negative Negative mg/dL [facility] HEMOGLOBIN/BLOOD UA (POCT) Trace-intact Abnormal Negative [facility] KETONE UA (POCT) Negative Negative mg/dL [facility] LEUKOCYTES UA (POCT) Small Abnormal Negative [facility] NITRITE UA (POCT) Negative Negative [facility] PH UA (POCT) 7.5 4.5 - 8.0 [facility] Protein Ql (U) 30 mg/dL Abnormal Negative mg/dL [facility] SPECIFIC GRAVITY UA (POCT) 1.025 1.005 - 1.030 [facility] UROBILINOGEN UA (POCT) 0.2 E.U./dL Deepa l E.U./dL [facility] ED NOTEon 03-21-2022 ED NOTE HNO ID: [id number] Author: Fausto Sawyer RN Service: Emergency Medicine [...] this time. Patient's father driving patient home. [facility] ED PROV NOTEon 03-21-2022 ED PROV NOTE HNO ID: [id number] Author: Seth Pillai MD Service: Emergency Medicine Author Type: Physician Type: ED Provider Notes Filed: 03/21/2022 2:12 PM Note Text: ED Provider Note Patient Name: Diro Carvajal : 1965 SERVICE DATE: 03/20/22 History [...] for assess (more content not included)... Normal [facility] Basic metabolic 2000 panelon 03-20-2022 Anion gap [Moles/Vol] 11 mmol/L Normal 9-18 [facility] Comment on above: Order Comment: Speci men Type: BLOOD SPECIMEN Ordering Facility: [facility] Address: [address] [place] [address] Performed By: #### 1 798-8, 68999-3, 3016-3 #### [facility] CLIA [id number] [address] [place] [address] [place] Calcium [Mass/Vol] 10.3 mg/dL High 8.5-10.2 [facility] Comment on above: Order Comment: Speci men Type: BLOOD SPECIMEN Ordering Facility: [facility] Address: [address] [place] [address] Performed By: #### 1 798-8, 38291-0, 6996-3 #### [facility] CLIA [id number] [address] [place] [address] [place] Chloride [Moles/Vol] 102 mmol/L Normal 97-105 [facility] Comment on above: Order Comment: Speci men Type: BLOOD SPECIMEN Ordering Facility: [facility] Address: [address] [place] [address] Performed By: #### 1 798-8, 29246-2, 3016-3 #### [facility] CLIA [id number] [address] [place] [address] [place] CO2 [Moles/Vol] 26 mmol/L Normal 22-30 [facility] Comment on above: Order Comment: Speci men Type: BLOOD SPECIMEN Ordering Facility: [facility] Address: [address] [place] [address] Performed By: #### 1 798-8, 99323-4, 6-3 #### [facility] CLIA [id number] [address] [place] [address] [place] Creatinine [Mass/Vol] 0.49 mg/dL Low 0.58-0.96 [facility] Comment on above: Order Comment: Jayme harding Type: BLOOD SPECIMEN Ordering Facility: [facility] Address: [address] [place] [address] Performed By: #### 1 798-8, 78555-4, 3015-3 #### [facility] CLIA [id number] [address] [place] [address] [place] ESTIMATED GLOMERULAR FILTRATION RATE 109 mL/min/1.73m??? Normal >=60 [facility] Comment on above: Order Comment: Jayme harding Type: BLOOD SPECIMEN Ordering Facility: [facility] Address: [address] [place] [address] Result Comment: Janae mated Glomerular Filtration Rate [...] actual GFR. Performed By: #### 1 798-8, 57358-2, 3015-3 #### [facility] CLIA [id number] [address] [place] [address] [place] Glucose [Mass/Vol] 122 mg/dL High 74-99 [facility] Comment on above: Order Comment: Jayme harding Type: BLOOD SPECIMEN Ordering Facility: [facility] Address: [address] [place] [address] Result Comment: The [place] Diabetes Association (ADA) provides guidance for cutoff [...] Standards of Medical Care in Diabetes 2016, [place] [employer] Association. Diabetes Care. 2016.39(Suppl 1). Performed By: #### 1 798-8, 85953-5, 6-3 #### [facility] CLIA [id number] [address] [place] [address] [place] Potassium [Moles/Vol] 3.7 mmol/L Normal 3.7-5.1 [facility] Comment on above: Order Comment: Jayme harding Type: BLOOD SPECIMEN Ordering Facility: [facility] Address: [address] [place] [address] Performed By: #### 1 798-8, 70934-2, 6-3 #### [facility] CLIA [id number] [address] [place] [address] [place] Sodium [Moles/Vol] 139 mmol/L Normal 136-144 [facility] Comment on above: Order Comment: Jyame harding Type: BLOOD SPECIMEN Ordering Facility: [facility] Address: [address] [place] [address] Performed By: #### 1 798-8, 31029-1, 3015-3 #### [facility] CLIA [id number] [address] [place] [address] [place] Urea nitrogen [Mass/Vol] 9 mg/dL Normal 7-21 [facility] Comment on above: Order Comment: Jayme harding Type: BLOOD SPECIMEN Ordering Facility: [facility] Address: [address] [place] [address] Performed By: #### 1 798-8, 24198-9, 6-3 #### [facility] CLIA [id number] [address] [place] [address] [place] CBC W Auto Differential pane l (Bld)on 03-20-2022 Basophils (Bld) [#/Vol] 0.03 10*3/uL Normal <0.11 [facility] Comment on above: Order Comment: Speci men Type: BLOOD SPECIMEN Ordering Facility: [facility] Address: [address] [place] [address] Result Comment: Diff erential confirmed by visual scan of peripheral blood smear slide. Performed By: #### 5 7021-8 #### [facility] CLIA [id number] [address] [place] [address] [place] Basophils/100 WBC (Bld) 0.2 % Normal A [facility] Comment on above: Order Comment: Speci men Type: BLOOD SPECIMEN Ordering Facility: [facility] Address: [address] [place] [address] Performed By: #### 5 7021-8 #### [facility] CLIA [id number] [address] [place] [address] Differential cell count method Nom (Bld) Auto Normal [facility] Comment on above: Order Comment: Speci men Type: BLOOD SPECIMEN Ordering Facility: [facility] Address: [address] [place] [address] Performed By: #### 5 7021-8 #### [facility] CLIA [id number] [address] [place] [address] [place] Eosinophils (Bld) [#/Vol] 0.04 10*3/uL Normal <0.46 [facility] Comment on above: Order Comment: Speci men Type: BLOOD SPECIMEN Ordering Facility: [facility] Address: [address] [place] [address] Performed By: #### 5 7021-8 #### [facility] CLIA [id number] [address] [place] Eosinophils/100 WBC (Bld) 0.3 % Normal [facility] Comment on above: Order Comment: Speci men Type: BLOOD SPECIMEN Ordering Facility: [facility] Address: [address] [address] Performed By: #### 5 7021-8 #### [facility] CLIA [id number] [address] [place] [address] [place] Erythrocyte distribution width (RBC) [Ratio] 12.8 % Normal 11.5-15.0 [facility] Comment on above: Order Comment: Speci men Type: BLOOD SPECIMEN Ordering Facility: [facility] Address: [address] [place] [address] Performed By: #### 5 7021-8 #### [facility] CLIA [id number] [address] [place] [address] [place] Hematocrit (Bld) [Volume fraction] 39.9 % Normal 36.0-46.0 [facility] Comment on above: Order Comment: Speci men Type: BLOOD SPECIMEN Ordering Facility: [facility] Address: [address] [place] [address] Performed By: #### 5 7021-8 #### [facility] CLIA [id number] [address] [place] Hemoglobin (Bld) [Mass/Vol] 12.8 g/dL Normal 11.5-15.5 [facility] Comment on above: Order Comment: Speci men Type: BLOOD SPECIMEN Ordering Facility: [facility] Address: [address] [place] [address] Performed By: #### 5 7021-8 #### [facility] CLIA [id number] [address] [place] Immature granulocytes (Bld) [#/Vol] 0.03 10*3/uL Normal <0.10 [facility] Comment on above: Order Comment: Speci men Type: BLOOD SPECIMEN Ordering Facility: [facility] Address: [address] [place] [address] Performed By: #### 5 7021-8 #### [facility] CLIA [id number] [address] [place] Immature granulocytes/100 WBC (Bld) 0.2 % Normal [facility] Comment on above: Order Comment: Speci men Type: BLOOD SPECIMEN Ordering Facility: [facility] Address: [address] [place] [address] Performed By: #### 5 7021-8 #### [facility] CLIA [id number] [address] [place] [address] [place] Lymphocytes (Bld) [#/Vol] 1.95 10*3/uL Normal 1.00-4.00 [facility] Comment on above: Order Comment: Speci men Type: BLOOD SPECIMEN Ordering Facility: [facility] Address: [address] [place] [address] Performed By: #### 5 7021-8 #### [facility] CLIA [id number] [address] Lymphocytes/100 WBC (Bld) 12.2 % Normal [facility] Comment on above: Order Comment: Speci men Type: BLOOD SPECIMEN Ordering Facility: [facility] Address: [address] [place] [address] Performed By: #### 5 7021-8 #### [facility] CLIA [id number] [address] [place] [address] [place] MCH (RBC) [Entitic mass] 29.6 pg Normal 26.0-34.0 [facility] Comment on above: Order Comment: Speci men Type: BLOOD SPECIMEN Ordering Facility: [facility] Address: [address] [place] [address] Performed By: #### 5 7021-8 #### [facility] CLIA [id number] [address] [place] [address] [place] MCHC (RBC) [Mass/Vol] 32.1 g/dL Normal 30.5-36.0 [facility] Comment on above: Order Comment: Speci men Type: BLOOD SPECIMEN Ordering Facility: [facility] Address: [address] [place] [address] Performed By: #### 5 7021-8 #### [facility] CLIA [id number] [address] [place] [address] [place] MCV (RBC) [Entitic vol] 92.4 fL Normal 80.0-100.[address] [facility] Comment on above: Order Comment: Speci men Type: BLOOD SPECIMEN Ordering Facility: [facility] Address: [address] [place] [address] Performed By: #### 5 7021-8 #### [facility] CLIA [id number] [address] [place] Monocytes (Bld) [#/Vol] 0.72 10*3/uL Normal <0.87 [facility] Comment on above: Order Comment: Speci men Type: BLOOD SPECIMEN Ordering Facility: [facility] Address: [address] [place] [address] Performed By: #### 5 7021-8 #### [facility] CLIA [id number] [address] [place] Monocytes/100 WBC (Bld) 4.5 % Normal A [facility] Comment on above: Order Comment: Speci men Type: BLOOD SPECIMEN Ordering Facility: [facility] Address: [address] [place] [address] Performed By: #### 5 7021-8 #### [facility] CLIA [id number] [address] [place] [address] [place] Neutrophils (Bld) [#/Vol] 13.18 10*3/uL High 1.45-7.50 [facility] Comment on above: Order Comment: Speci men Type: BLOOD SPECIMEN Ordering Facility: [facility] Address: [address] [place] [address] Performed By: #### 5 7021-8 #### [facility] CLIA [id number] [address] [place] Neutrophils/100 WBC (Bld) 82.6 % Normal [facility] Comment on above: Order Comment: Speci men Type: BLOOD SPECIMEN Ordering Facility: [facility] Address: [address] [place] [address] Performed By: #### 5 7021-8 #### [facility] CLIA [id number] [address] [place] [address] [place] Nucleated RBC (Bld) [#/Vol] Normal [facility] Comment on above: Order Comment: Speci men Type: BLOOD SPECIMEN Ordering Facility: [facility] Address: [address] [address] Performed By: #### 5 7021-8 #### [facility] CLIA [id number] [address] [place] [address] [place] Nucleated RBC/100 WBC (Bld) [Ratio] Normal [facility] Comment on above: Order Comment: Speci men Type: BLOOD SPECIMEN Ordering Facility: [facility] Address: [address] [address] Performed By: #### 5 7021-8 #### [facility] CLIA [id number] [address] [place] [address] [place] Platelet mean volume (Bld) [Entitic vol] 9.2 fL Normal 9.0-12.7 [facility] Comment on above: Order Comment: Speci men Type: BLOOD SPECIMEN Ordering Facility: [facility] Address: [address] [address] Performed By: #### 5 7021-8 #### [facility] CLIA [id number] [address] [place] [address] [place] Platelets (Bld) [#/Vol] 303 10*3/uL Normal 150-400 [facility] Comment on above: Order Comment: Speci men Type: BLOOD SPECIMEN Ordering Facility: [facility] Address: [address] [place] [address] Result Comment: RARE PLATELET CLUMPS NO CLOT Performed By: #### 5 7021-8 #### [facility] CLIA [id number] [address] Platelets Estimate (Bld) [#/Vol] Adequate Normal [facility] Comment on above: Order Comment: Speci men Type: BLOOD SPECIMEN Ordering Facility: [facility] Address: [address] [place] [address] Performed By: #### 5 7021-8 #### [facility] CLIA [id number] [address] RBC (Bld) [#/Vol] 4.32 10*6/uL Normal 3.90-5.20 [facility] Comment on above: Order Comment: Speci men Type: BLOOD SPECIMEN Ordering Facility: [facility] Address: [address] [place] [address] Performed By: #### 5 7021-8 #### [facility] CLIA [id number] [address] [place] [address] RED CELL MORPH Reviewed: unremarkable Normal [facility] Comment on above: Order Comment: Speci men Type: BLOOD SPECIMEN Ordering Facility: [facility] Address: [address] [place] [address] Performed By: #### 5 7021-8 #### [facility] CLIA [id number] [address] [place] [address] WBC (Bld) [#/Vol] 15.95 10*3/uL High 3.70-11.00 [facility] Comment on above: Order Comment: Speci men Type: BLOOD SPECIMEN Ordering Facility: [facility] Address: [address] [place] [address] Performed By: #### 5 7021-8 #### [facility] CLIA [id number] [address] [place] [address] CT ABD/PEL WO IVCONon 2021 CT ABD/PEL WO IVCON * * *Final Report* * * DATE OF EXAM: Mar 20 2022 8:50PM [facility] 0531 - CT ABD/PEL WO IVCON / [...] arthroplasty has been performed. Lower thorax: Unremarkable. Tap Builder (topogram) images: IMPRESSION: Left pelvic kidney with nephrolithiasis looks similar. There is no obstructive uropathy. Milling Supervisor: PSCB Transcribe Date/Time: Mar 20 2022 9:05P Dictated by : LESLY BOSTON MD This examination was interpreted and the report reviewed and electronically signed by: LESLY BOSTON MD on Mar 20 2022 9:18PM EST [id number] Normal [facility] ED NOTEon 03-20-2022 ED NOTE HNO ID: [id number] Author: Fausto Sawyer RN Service: Emergency Medicine Author Type: Registered Nurse Type: ED Notes Filed: 03/20/2022 9:31 PM Note Text: Patient informed about the name of the medication(s), what the medication(s) is(are) for, and what to expect with/from med administration. Patient given opportunity to ask questions. Medication(s) include: Macrobid. [facility] ED NOTE HNO ID: [id number] Author: Fausto Sawyer RN Service: Emergency Medicine Author Type: Registered Nurse Type: ED Notes Filed: 03/20/2022 9:26 PM Note Text: Physician at bedside. [facility] ED NOTE HNO ID: [id number] Author: Pau Castañeda RN Service: Nursing Author Type: Registered Nurse Type: ED Notes Filed: 03/20/2022 7:16 PM Note Text: Report to ALMA Lambert [facility] ED NOTE HNO ID: [id number] Author: Fausto Sawyer RN Service: Emergency Medicine Author Type: Registered Nurse Type: ED Notes Filed: 03/20/2022 10:11 PM Note Text: Change of shift report received from Pau Clay RN. This RN assumed patient care at this time. [facility] ED NOTE HNO ID: [id number] Author: Pau Castañeda RN Service: Nursing Author Type: Registered Nurse Type: ED Notes Filed: 03/20/2022 6:50 PM Note Text: Pt taken to bathroom, unable to void [facility] ED NOTE HNO ID: [id number] Author: Pau Castañeda RN Service: Nursing Author Type: Registered Nurse Type: ED Notes Filed: 03/20/2022 6:19 PM Note Text: Pt arrives with report of UTI, noticed symptoms about 1 week ago. Pt reports frequency, burning, and always going. Pt reports pain in the crotch, pt reports pain is constant Normal [facility] Urinalysis complete pnl Uron 03-20-2022 Urinalysis [...] 2 <10,000 CFU/ml Normal urogenital keisha Normal [facility] Comment on above: Order Comment: Speci men Type: URINE SPECIMENOrdering Facility: [facility] Address: [facility] [place] [address] Performed By: #### 2 4356-8 ####[facility] [id number] [place] [address] [facility] [id number] [place] [address] [facility] CNOVon 02-24-2022 CNOV Office Visit (AGFAMPLE) DIOR CARVAJAL ([id number]) 1965 F Date Time Provider Department 02/24/22 [...] Tenderness: There (more content not included)... Normal [facility] CT ABD/PEL WO IVCONon 2021 CT ABD/PEL WO IVCON * * *Final Report* * * DATE OF EXAM: Jan 18 2022 3:44PM [facility] 0531 - CT ABD/PEL WO IVCON / [...] Lower thorax: No acute osseous abnormality identified. Tap Builder (topogram) images: No additional findings. IMPRESSION: No acute process identified involving the abdomen or pelvis. Left pelvic kidney and left nephrolithiasis. Additional findings as above. Milling Supervisor: PSCB Transcribe Date/Time: Jan 20 2022 1:57P Dictated by : SETH CHAPMAN MD This examination was interpreted and the report reviewed and electronically signed by: SETH CHAPMAN MD on Jan 20 2022 2:02PM EST [id number] Normal [facility] C diff Tox gens Stl Ql BARB+p robeon 12-27-2021 C. difficile toxin genes BARB+probe Ql (Stl) Negative Normal Negative for C. difficile toxin by PCR [facility] Comment on above: Order Comment: Speci men Type: STOOL SPECIMEN Ordering Facility: [facility] Address: [address] [place] [address] Performed By: #### 5 4067-4 #### [facility] CLIA [id number] [address] [place] [address] [place] FECAL LACTOFERRIN/LEUKOCYTES on 12-27-2021 Lactoferrin IA Ql (Stl) Negative for lactoferrin, which may indicate the absence of fecal white blood cells Normal Negative [facility] Comment on above: Order Comment: Speci meaghan Type: BLOOD SPECIMEN Ordering Facility: [facility] Address: [address] [place] [address] Performed By: #### 1 798-8, 84042-8, 3016-3 #### [facility] CLIA [id number] [address] [place] [address] [place] GI pathogens Pnl Stl Culton 12-27-2021 Gastrointestinal pathogens panel Cx (Stl) CULTURE, STOOL: No Salmonella, Shigella, Campylobacter or E. coli O157:H7 isolated Normal [facility] Comment on above: Performed By: #### 8 2305-4 ####[facility] [id number] [address] OF [facility] O+P Spec Microon 12-27-2021 Ova and parasites identified LM Nom (Unsp spec) OVA AND PARASITE EXAM: No Parasites Seen Normal [facility] Comment on above: Performed By: #### 6 73-4 ####[facility] LABCLIA [id number] [place] [address] [place] Amylase SerPl-cCncon 022 Amylase [Catalytic activity/Vol] 32 U/L Normal 30-104 [facility] Comment on above: Order Comment: Speci meaghan Type: BLOOD SPECIMEN Ordering Facility: [facility] Address: [address] [place] [address] Performed By: #### 1 798-8, 17726-6, 6-3 #### [facility] CLIA [id number] [address] [place] [address] [place] CBC W Auto Differential pane l (Bld)on 12-26-2021 Basophils (Bld) [#/Vol] 0.04 10*3/uL Normal <0.11 [facility] Comment on above: Order Comment: Jayme harding Type: BLOOD SPECIMEN Ordering Facility: [facility] Address: [address] [place], [place] [address] Performed By: #### 1 798-8, 96619-7, 6-3 #### [facility] CLIA [id number] [address] [place] [address] [place] Basophils/100 WBC (Bld) 0.4 % Normal A [facility] Comment on above: Order Comment: Speci men Type: BLOOD SPECIMEN Ordering Facility: [facility] Address: [address] [place] [address] Performed By: #### 1 798-8, 75028-3, 6-3 #### [facility] CLIA [id number] [address] [place] [address] [place] Differential cell count method Nom (Bld) Auto Normal [facility] Comment on above: Order Comment: Speci men Type: BLOOD SPECIMEN Ordering Facility: [facility] Address: [address] [place] [address] Performed By: #### 1 798-8, 36819-4, 3015-3 #### [facility] CLIA [id number] [address] [place] [address] [place] Eosinophils (Bld) [#/Vol] 0.07 10*3/uL Normal <0.46 [facility] Comment on above: Order Comment: Speci men Type: BLOOD SPECIMEN Ordering Facility: [facility] Address: [address] [place] [address] Performed By: #### 1 798-8, 99096-2, 3015-3 #### [facility] CLIA [id number] [address] [place] [address] [place] Eosinophils/100 WBC (Bld) 0.7 % Normal [facility] Comment on above: Order Comment: Speci men Type: BLOOD SPECIMEN Ordering Facility: [facility] Address: [address] [place] [address] Performed By: #### 1 798-8, 26546-5, 6-3 #### [facility] CLIA [id number] [address] [place] [address] [place] Erythrocyte distribution width (RBC) [Ratio] 13.3 % Normal 11.5-15.0 [facility] Comment on above: Order Comment: Jayme harding Type: BLOOD SPECIMEN Ordering Facility: [facility] Address: [address] [place] [address] Performed By: #### 1 798-8, 96092-1, 3016-3 #### [facility] CLIA [id number] [address] [place] [address] [place] Hematocrit (Bld) [Volume fraction] 42.4 % Normal 36.0-46.0 [facility] Comment on above: Order Comment: Jayme harding Type: BLOOD SPECIMEN Ordering Facility: [facility] Address: [address] [place] [address] Performed By: #### 1 798-8, 90787-1, 3016-3 #### [facility] CLIA [id number] [address] [place] [address] [place] Hemoglobin (Bld) [Mass/Vol] 13.1 g/dL Normal 11.5-15.5 [facility] Comment on above: Order Comment: Jayme harding Type: BLOOD SPECIMEN Ordering Facility: [facility] Address: [address] [place] [address] Performed By: #### 1 798-8, 09114-6, 3016-3 #### [facility] CLIA [id number] [address] [place] [address] [place] Lymphocytes (Bld) [#/Vol] 1.92 10*3/uL Normal 1.00-4.00 [facility] Comment on above: Order Comment: Jayme harding Type: BLOOD SPECIMEN Ordering Facility: [facility] Address: [address] [place] [address] Performed By: #### 1 798-8, 71262-4, 3016-3 #### [facility] CLIA [id number] [address] [place] Lymphocytes/100 WBC (Bld) 19.5 % Normal [facility] Comment on above: Order Comment: Speci meaghan Type: BLOOD SPECIMEN Ordering Facility: [facility] Address: [address] [place] [address] Performed By: #### 1 798-8, 73651-6, 6-3 #### [facility] CLIA [id number] [address] [place] [address] [facility] MCH (RBC) [Entitic mass] 29.0 pg Normal 26.0-34.0 [facility] Comment on above: Order Comment: Speci men Type: BLOOD SPECIMEN Ordering Facility: [facility] Address: [address] [place] [address] Performed By: #### 1 798-8, 28968-6, 3015-3 #### [facility] CLIA [id number] [address] [place], [place] [address] [place] [address] [place] MCHC (RBC) [Mass/Vol] 30.9 g/dL Normal 30.5-36.0 [facility] Comment on above: Order Comment: Speci men Type: BLOOD SPECIMEN Ordering Facility: [facility] Address: [address] [place] [address] Performed By: #### 1 798-8, 92245-0, 3015-3 #### [facility] CLIA [id number] [address] [place] [address] [place] [facility] MCV (RBC) [Entitic vol] 93.8 fL Normal 80.0-100.0 [facility] Comment on above: Order Comment: Speci men Type: BLOOD SPECIMEN Ordering Facility: [facility] Address: [address] [place] [address] Performed By: #### 1 798-8, 69588-0, 6-3 #### [facility] CLIA [id number] [address] [place] [address] [facility] Monocytes (Bld) [#/Vol] 0.44 10*3/uL Normal <0.87 [facility] Comment on above: Order Comment: Speci men Type: BLOOD SPECIMEN Ordering Facility: [facility] Address: [address] [place] [address] Performed By: #### 1 798-8, 93194-9, 6-3 #### [facility] CLIA [id number] [address] [place] [address] [place] Monocytes/100 WBC (Bld) 4.5 % Normal A [facility] Comment on above: Order Comment: Speci men Type: BLOOD SPECIMEN Ordering Facility: [facility] Address: [address] [place] [address] Performed By: #### 1 798-8, 24505-2, 3015-3 #### [facility] CLIA [id number] [address] [place] [address] [place] Neutrophils (Bld) [#/Vol] 7.39 10*3/uL Normal 1.45-7.50 [facility] Comment on above: Order Comment: Speci men Type: BLOOD SPECIMEN Ordering Facility: [facility] Address: [address] [place] [address] Performed By: #### 1 798-8, 34896-4, 3 #### [facility] CLIA [id number] [address] [place] [address] [facility] Neutrophils/100 WBC (Bld) 74.9 % Normal [facility] Comment on above: Order Comment: Speci men Type: BLOOD SPECIMEN Ordering Facility: [facility] Address: [address] [place] [address] Performed By: #### 1 798-8, 01772-4, 3015-3 #### [facility] CLIA [id number] [address] [place] [address] [place] Platelet mean volume (Bld) [Entitic vol] 9.7 fL Normal 9.0-12.7 [facility] Comment on above: Order Comment: Speci men Type: BLOOD SPECIMEN Ordering Facility: [facility] Address: [address] [place], [place] [address] Performed By: #### 1 798-8, 19648-3, 3016-3 #### [facility] CLIA [id number] [address] [place] [address] [facility] Platelets (Bld) [#/Vol] 311 10*3/uL Normal 150-400 [facility] Comment on above: Order Comment: Speci [facility] Type: BLOOD SPECIMEN Ordering Facility: [facility] Address: [address] [place] [address] Performed By: #### 1 798-8, 94406-6, 3016-3 #### [facility] CLIA [id number] [address] [place] [address] [facility] [place] RBC (Bld) [#/Vol] 4.52 10*6/uL Normal 3.90-5.20 [facility] Comment on above: Order Comment: Speci [facility] Type: BLOOD SPECIMEN Ordering Facility: [facility] Address: [address] [place] [address] Performed By: #### 1 798-8, 76717-0, 3016-3 #### [facility] CLIA [id number] [address] [place] [address] [facility] [place] WBC (Bld) [#/Vol] 9.86 10*3/uL Normal 3.70-11.00 [facility] Comment on above: Order Comment: Speci [facility] Type: BLOOD SPECIMEN Ordering Facility: [facility] Address: [address] [place] [address] Performed By: #### 1 798-8, 19215-6, 3016-3 #### [facility] CLIA [id number] [address] [place] [address] [facility] CELIAC ASSOC HLA-DQ GENOTYPE on 12-26-2021 CELIAC CATEGORY Category 3 Normal [facility] Comment on above: Order Comment: Speci [facility] Type: BLOOD SPECIMEN Ordering Facility: [facility] Address: [address] [place] [address] Result Comment: CATEGORY DQ HAPLOTYPE RELATIVE RISK [...] predicts celiac disease risk haplotypes in the [place], [place] and [place] populations. Immunogenetics. 2009 Apr;61(4):247-56. 2. César STERN. Celiac disease: dissecting a complex inflammatory disorder. Ale Rev Immunol. 2002 Sep;2(9):165-55. 3. Valadez E, Vineet HS, Danny CA, et al. Risk of pediatric celiac disease according to HLA haplotype and country. N Engl J Med. 2014 ;371(1):42-9. HLA typing performed by PCR-RSSOP and/or NGS. This test was developed and its performance characteristics determined by [facility]. The test has not been cleared or approved by the [place] FDA. However, FDA approval was not necessary since this lab is certified under CLIA for high complexity testing. Test performed by: [facility], [address] [place] [address]. CLIA [id number]. Performed By: #### C PIETER #### [facility] CLIA [id number] [address] [place] [address] CELIAC RISK HAPLOTYPE Positive Normal [facility] Comment on above: Order Comment: Speci men Type: BLOOD SPECIMEN Ordering Facility: [facility] Address: [address] [place] [address] Performed By: #### C PIETER #### [facility] CLIA [id number] [address] [place] [address] HLA-DQA1 GENOTYPE HLA-DQA1*: 05, 01 [facility] Comment on above: Order Comment: Speci men Type: BLOOD SPECIMEN Ordering Facility: [facility] Address: [address] [place] [address] Performed By: #### C PIETER #### [facility] CLIA [id number] [address] [place] [address] [place] HLA-DQB1 GENOTYPE HLA-DQB1*: 02:01, 06 [facility] Comment on above: Order Comment: Speci men Type: BLOOD SPECIMEN Ordering Facility: [facility] Address: [address] [place] [address] Performed By: #### C PIETER #### [facility] CLIA [id number] [address] [place] [address] [place] CELIAC SCREENon 10-03-2022 GLIAD DEAMIDATED IGA QUAL Negative Normal Negative, Test not Indicated [facility] Comment on above: Order Comment: Jayme harding Type: BLOOD SPECIMEN Ordering Facility: [facility] Address: [address] [place] [address] Result Comment: This is used as an aid in diagnosis of celiac disease. Clinical correlation is required. The following results were obtained with an [employer] QUANTA Lite Gliadin IgA DENISE Gliadin. Gliadin IgA values obtained with different manufacturers' assay methods may not be used interchangeably. The magnitude of the reported IgA levels cannot be correlated to an endpoint titer. Performed By: #### 1 798-8, 31855-5, 3016-3 #### [facility] CLIA [id number] [address] [place] [address] Gliadin peptide IgA Qn (S) 2 Units Normal <20 [facility] Comment on above: Order Comment: Jayme harding Type: BLOOD SPECIMEN Ordering Facility: [facility] Address: [address] [place] [address] Performed By: #### 1 798-8, 86870-5, 3016-3 #### [facility] CLIA [id number] [address] [place] [address] INTERPRETATION No serological evidence of celiac disease, however, if celiac disease is clinically suspected and patient is not on gluten-free diet, histological diagnosis may be considered. HLA testing may help with risk assessment. Normal [facility] Comment on above: Order Comment: Jayme harding Type: BLOOD SPECIMEN Ordering Facility: [facility] Address: [address] [place] [address] Performed By: #### 1 798-8, 72595-4, 3016-3 #### [facility] CLIA [id number] [address] [place] [address] TRANSGLUTAMINASE IGA QUAL Negative Normal Negative, Test not Indicated [facility] Comment on above: Order Comment: Jayme harding Type: BLOOD SPECIMEN Ordering Facility: [facility] Address: [address] [place] [address] Result Comment: The following results were obtained with the [employer] QAUNTA Lite h-tTG IgA DENISE. h-tTG IgA values obtained with different manufacturers' assay methods may not be used interchangeable. The magnitude of the reported IgA levels cannot be correlated to an endpoint titer. This is used as an aid in diagnosis of celiac disease. Clinical correlation is required. Performed By: #### 1 798-8, 84777-8, 3016-3 #### [facility] CLIA [id number] [address] [place] [address] tTG IgA Qn (S) 3 Units Normal <20 [facility] Comment on above: Order Comment: Jayme harding Type: BLOOD SPECIMEN Ordering Facility: [facility] Address: [address] [place] [address] Performed By: #### 1 798-8, 78759-8, 3016-3 #### [facility] CLIA [id number] [address] [place] [address] Comp Metab 2000 Pnl SerPlon 12-26-2021 Bilirubin [Mass/Vol] 0.4 mg/dL Normal 0.2-1.3 [facility] Comment on above: Order Comment: Jayme harding Type: BLOOD SPECIMEN Ordering Facility: [facility] Address: [address] [place] [address] Performed By: #### 1 798-8, 52552-4, 3016-3 #### [facility] CLIA [id number] [address] [place] [address] Performed By: #### 5 0189-0 #### [facility] CLIA [id number] [address] [place] [address] [place] Comprehensive metabolic 2000 panelon 12-26-2021 Albumin [Mass/Vol] 4.1 g/dL Normal 3.9-4.9 [facility] Comment on above: Order Comment: Jayme harding Type: BLOOD SPECIMEN Ordering Facility: [facility] Address: [address] [place] [address] Performed By: #### 1 798-8, 08186-7, 6-3 #### [facility] CLIA [id number] [address] [place] [address] [place] ALP [Catalytic activity/Vol] 121 U/L Normal 34-123 [facility] Comment on above: Order Comment: Speci men Type: BLOOD SPECIMEN Ordering Facility: [facility] Address: [address] [place] [address] Performed By: #### 1 798-8, 95863-1, 6-3 #### [facility] CLIA [id number] [address] [place], [place] [address] [place] [address] ALT With P-5'-P [Catalytic activity/Vol] 8 U/L Normal 7-38 [facility] Comment on above: Order Comment: Speci men Type: BLOOD SPECIMEN Ordering Facility: [facility] Address: [address] [place] [address] Performed By: #### 1 798-8, 04305-3, 3015-3 #### [facility] CLIA [id number] [address] [place] [address] [place] [facility] Anion gap [Moles/Vol] 9 mmol/L Normal 9-18 [facility] Comment on above: Order Comment: Speci men Type: BLOOD SPECIMEN Ordering Facility: [facility] Address: [address] [place] [address] Performed By: #### 1 798-8, 69954-0, 3015-3 #### [facility] CLIA [id number] [address] [place] [address] [facility] AST With P-5'-P [Catalytic activity/Vol] 15 U/L Normal 13-35 [facility] Comment on above: Order Comment: Speci men Type: BLOOD SPECIMEN Ordering Facility: [facility] Address: [address] [place] [address] Performed By: #### 1 798-8, 12145-4, 6-3 #### [facility] CLIA [id number] [address] [place] [address] [place] [facility] Calcium [Mass/Vol] 10.0 mg/dL Normal 8.5-10.2 [facility] Comment on above: Order Comment: Jayme harding Type: BLOOD SPECIMEN Ordering Facility: [facility] Address: [address] [place] [address] Performed By: #### 1 798-8, 34796-1, 3016-3 #### [facility] CLIA [id number] [address] [place] [address] [place] Chloride [Moles/Vol] 105 mmol/L Normal 97-105 [facility] Comment on above: Order Comment: Jayme harding Type: BLOOD SPECIMEN Ordering Facility: [facility] Address: [address] [place] [address] Performed By: #### 1 798-8, 42211-3, 3016-3 #### [facility] CLIA [id number] [address] OF [place] CO2 [Moles/Vol] 28 mmol/L Normal 22-30 [facility] Comment on above: Order Comment: Jayme harding Type: BLOOD SPECIMEN Ordering Facility: [facility] Address: [address] [place] [address] Performed By: #### 1 798-8, 67429-2, 3016-3 #### [facility] CLIA [id number] [address] STATES [place] Creatinine [Mass/Vol] 0.54 mg/dL Low 0.58-0.96 [facility] Comment on above: Order Comment: Nickyi men Type: BLOOD SPECIMEN Ordering Facility: [facility] Address: [address] [place] [address] Performed By: #### 1 798-8, 80957-2, 3016-3 #### [facility] CLIA [id number] [address] [place] [address] [facility] ESTIMATED GLOMERULAR FILTRATION RATE 108 mL/min/1.73m??? Normal >=60 [facility] Comment on above: Order Comment: Jayme harding Type: BLOOD SPECIMEN Ordering Facility: [facility] Address: [address] [place] [address] Result Comment: Janae mated Glomerular Filtration Rate [...] actual GFR. Performed By: #### 1 798-8, 90431-8, 3016-3 #### [facility] CLIA [id number] [address] [place], [place] [address] [place] Glucose [Mass/Vol] 94 mg/dL Normal 74-99 [facility] Comment on above: Order Comment: Jayme harding Type: BLOOD SPECIMEN Ordering Facility: [facility] Address: [address] [place] [address] Result Comment: The [place] Diabetes Association (ADA) provides guidance for cutoff [...] Standards of Medical Care in Diabetes 2016, [place] [employer] Association. Diabetes Care. 2016.39(Suppl 1). Performed By: #### 1 798-8, 22671-2, 3016-3 #### [facility] CLIA [id number] [address] [place] [address] [place] Potassium [Moles/Vol] 4.0 mmol/L Normal 3.7-5.1 [facility] Comment on above: Order Comment: Jayme harding Type: BLOOD SPECIMEN Ordering Facility: [facility] Address: [address] [place] [address] Performed By: #### 1 798-8, 65622-4, 3016-3 #### [facility] CLIA [id number] [address] [place] [address] [place] Protein [Mass/Vol] 6.9 g/dL Normal 6.3-8.0 [facility] Comment on above: Order Comment: Speci men Type: BLOOD SPECIMEN Ordering Facility: [facility] Address: [address] [place] [address] Performed By: #### 1 798-8, 46535-9, 3016-3 #### [facility] CLIA [id number] [address] [place] Sodium [Moles/Vol] 142 mmol/L Normal 136-144 [facility] Comment on above: Order Comment: Speci men Type: BLOOD SPECIMEN Ordering Facility: [facility] Address: [address] [place] [address] Performed By: #### 1 798-8, 66304-0, 6-3 #### [facility] CLIA [id number] [address] [place] [address] [place] Urea nitrogen [Mass/Vol] 8 mg/dL Normal 7-21 [facility] Comment on above: Order Comment: Speci men Type: BLOOD SPECIMEN Ordering Facility: [facility] Address: [address] [place] [address] Performed By: #### 1 798-8, 61219-0, 3016-3 #### [facility] CLIA [id number] [address] [place] [address] [place] ESR Westergren method (Bld) [Velocity]on 12-26-2021 ESR (Bld) [Velocity] 19 mm/h Normal 0-30 [facility] Comment on above: Order Comment: Speci men Type: BLOOD SPECIMEN Ordering Facility: [facility] Address: [address] [place] [address] Performed By: #### 4 537-7 #### [facility] CLIA [id number] [address] [place] [address] [facility] [place] IgA SerPl-mCncon 12-26-2021 IgA [Mass/Vol] 126 mg/dL Normal 70-400 [facility] Comment on above: Order Comment: Speci men Type: BLOOD SPECIMEN Ordering Facility: [facility] Address: [address] [place] [address] Performed By: #### 2 458-8 #### [facility] CLIA [id number] [address] [place] [address] [place] bilirubin panel [Ma ss/Vol]on 12-26-2021 Bilirubin.conjugated [Mass/Vol] mg/dL Normal <0.2 [facility] Comment on above: Order Comment: Speci men Type: BLOOD SPECIMEN Ordering Facility: [facility] Address: [address] [place] [address] Performed By: #### 5 0189-0 #### [facility] CLIA [id number] [address] [place] [address] [place] Bilirubin.indirect [Mass/Vol] mg/dL Normal <1.4 [facility] Comment on above: Order Comment: Speci men Type: BLOOD SPECIMEN Ordering Facility: [facility] Address: [address] [place] [address] Performed By: #### 5 0189-0 #### [facility] CLIA [id number] [address] [place] [address] [place] TSH SerPl-aCncon 12-26-2021 TSH Qn 1.490 m[IU]/L Normal 0.270-4.200 [facility] Comment on above: Order Comment: Speci men Type: BLOOD SPECIMEN Ordering Facility: [facility] Address: [address] [place] [address] Performed By: #### 1 798-8, 60994-3, 3016-3 #### [facility] CLIA [id number] [address] [place] [address] [place] [facility] CNOVon 12-02-2021 CNOV Office Visit (LAURA) DIOR CARVAJAL ([id number]) 1965 F Date Time Provider Department 12/02/21 [...] history and updated the Histories section of [facility]. Pt has history of chronic arthritis She takes tramadol bid for the pain She states this is not quite enough, but she does not want to become addicted to the medication She admits she will never be pain free Pain today is 4/10. Pain at its worst is 9/10 Pain is mostly in her neck She will see GI in [place] on 12/13 She has a history of [...] (more content not included)... Normal [facility] SCREENINGon 06-22-2020 [facility] SCREENING Final Report DATE OF EXAM: Jun 22 2020 11:05AM LDW [id number] - [facility] SCREENING / PROCEDURE REASON: Encounter for screening mammogram for malignant neoplasm of breast Physician Interpretation #[id number] - [facility] SCREENING BILATERAL DIGITAL SCREENING MAMMOGRAM WITH [...] 01/19/2016 mammogram, and 01/06/2016 mammogram - [facility]. The tissue of both breasts is heterogeneously dense. This may lower the sensitivity of mammography. No significant masses, calcifications, or other findings are seen in either breast. There has been no significant interval change. IMPRESSION: NEGATIVE There is no mammographic evidence of malignancy. A 1 year screening mammogram is recommended. Ricky morrison/penrad:06/22/2020 11:41:39 Health Sciences Dean(s): Justin Hopper (R)(M), [facility] letter sent: Normal over 40 Mammogram [...] Health, Family Medicine, and Medical/Surgical Oncology, the [facility] has carefully reviewed the data and [...] their providers when to stop screening mammograms. Milling Supervisor: Zara Transcribe Date/Time: Jun 22 2020 10:34A Dictated by : RICKY OROPEZA MD This examination was interpreted and the report reviewed and electronically signed by: RICKY OROPEZA MD on Jun 22 2020 11:41AM EST Normal [facility] Vital Signs Date Time Vital Sign Value Performing Clinician Facility 11-05-2024 10:03-0400 Body temperature 97.59 [degF] Mini Whyte MD Work Phone: [facility] 11-05-2024 10:03-0400 Diastolic blood pressure 54 mm[Hg] Mini Whyte MD Work Phone: [facility] 11-05-2024 10:03-0400 Heart rate 67 /min Mini Whyte MD Work Phone: [facility] 11-05-2024 10:03-0400 Respiratory rate 17 /min Mini Whyte MD Work Phone: [facility] 11-05-2024 10:03-0400 SaO2% (BldA) [Mass fraction] 97 % Mini Whyte MD Work Phone: [facility] 11-05-2024 10:03-0400 Systolic blood pressure 104 mm[Hg] Mini Whyte MD Work Phone: [facility] 07-31-2024 09:19-0400 Diastolic blood pressure 58 mm[Hg] Mini Whyte MD Work Phone: [facility] Comment on above: notified 07-31-2024 09:19-0400 Systolic blood pressure 81 mm[Hg] Mini Whyte MD Work Phone: [facility] Comment on above: notified 07-31-2024 09:14-0400 Body temperature 98.2 [degF] Mini Whyte MD Work Phone: [facility] 07-31-2024 09:14-0400 Heart rate 59 /min Mini Whyte MD Work Phone: [facility] Comment on above: notified 07-31-2024 09:14-0400 Respiratory rate 17 /min Mini Whyte MD Work Phone: [facility] 07-31-2024 09:14-0400 SaO2% (BldA) [Mass fraction] 96 % Mini Whyte MD Work Phone: [facility] 05-26-2024 14:38-0500 Diastolic blood pressure 50 mm[Hg] Dior Anguiano MD Work Phone: [facility] 05-26-2024 14:38-0500 Heart rate 64 /min Dior Anguiano MD Work Phone: [facility] 05-26-2024 14:38-0500 SaO2% (BldA) [Mass fraction] 99 % Dior Anguiano MD Work Phone: [facility] 05-26-2024 14:38-0500 Systolic blood pressure 107 mm[Hg] Dior Anguiano MD Work Phone: [facility] 05-26-2024 13:23-0500 Body temperature 97.81 [degF] Mini Whyte MD Work Phone: [facility] 05-26-2024 13:23-0500 Diastolic blood pressure 50 mm[Hg] Mini Whyte MD Work Phone: [facility] 05-26-2024 13:23-0500 Heart rate 64 /min Mini Whyte MD Work Phone: [facility] 05-26-2024 13:23-0500 Respiratory rate 17 /min Mini Whyte MD Work Phone: [facility] 05-26-2024 13:23-0500 SaO2% (BldA) [Mass fraction] 99 % Mini Whyte MD Work Phone: [facility] 05-26-2024 13:23-0500 Systolic blood pressure 107 mm[Hg] Mini Whyte MD Work Phone: [facility] 02-28-2024 14:51-0500 Body temperature 98.01 [degF] Mini Whyte MD Work Phone: [facility] 02-28-2024 14:51-0500 Diastolic blood pressure 39 mm[Hg] Mini Whyte MD Work Phone: [facility] Comment on above: md notified 02-28-2024 14:51-0500 Heart rate 71 /min Mini Whyte MD Work Phone: [facility] 02-28-2024 14:51-0500 Respiratory rate 17 /min Mini Whyte MD Work Phone: [facility] 02-28-2024 14:51-0500 SaO2% (BldA) [Mass fraction] 98 % Mini Whyte MD Work Phone: [facility] 02-28-2024 14:51-0500 Systolic blood pressure 107 mm[Hg] Mini Whyte MD Work Phone: [facility] Comment on above: notified 02-10-2024 20:22-0500 Body temperature 97.81 [degF] Kyle Lane APRN.MODEL AND MOLD MAKER Work Phone: [facility] 02-10-2024 20:22-0500 Diastolic blood pressure 61 mm[Hg] Kyle Lane APRN.MODEL AND MOLD MAKER Work Phone: [facility] 02-10-2024 20:22-0500 Heart rate 78 /min Kyle Lane APRN.MODEL AND MOLD MAKER Work Phone: [facility] 02-10-2024 20:22-0500 Respiratory rate 18 /min Kyle Lane APRN.MODEL AND MOLD MAKER Work Phone: [facility] 02-10-2024 20:22-0500 SaO2% (BldA) [Mass fraction] 97 % Kyle Lane APRN.MODEL AND MOLD MAKER Work Phone: [facility] 02-10-2024 20:22-0500 Systolic blood pressure 115 mm[Hg] Kyle Lane APRN.MODEL AND MOLD MAKER Work Phone: [facility] 02-07-2024 11:34-0500 Body temperature 98.49 [degF] Hayder Smitha DPM Work Phone: [facility] 02-07-2024 11:34-0500 Diastolic blood pressure 70 mm[Hg] Hayder Smitha DPM Work Phone: [facility] 02-07-2024 11:34-0500 Heart rate 74 /min Hayder Smitha DPM Work Phone: [facility] 02-07-2024 11:34-0500 Respiratory rate 18 /min Hayder Smitha DPM Work Phone: [facility] 02-07-2024 11:34-0500 SaO2% (BldA) [Mass fraction] 98 % Hayder Smitha DPM Work Phone: [facility] 02-07-2024 11:34-0500 Systolic blood pressure 105 mm[Hg] Hayder Bone DPM Work Phone: [facility] 01-17-2024 10:22-0400 Body mass index (BMI) [Ratio] 29.14 kg/m2 Mini Whyte MD Work Phone: [facility] 01-17-2024 10:22-0400 Body temperature 98.2 [degF] Mini Whyte MD Work Phone: [facility] 01-17-2024 10:22-0400 Body weight 81.9 kg Mini Whyte MD Work Phone: [facility] 01-17-2024 10:22-0400 Diastolic blood pressure 49 mm[Hg] Mini Whyte MD Work Phone: [facility] Comment on above: provider made aware 01-17-2024 10:22-0400 Heart rate 68 /min Mini Whyte MD Work Phone: [facility] 01-17-2024 10:22-0400 Respiratory rate 20 /min Mini Whyte MD Work Phone: [facility] 01-17-2024 10:22-0400 SaO2% (BldA) [Mass fraction] 100 % Mini Whyte MD Work Phone: [facility] Comment on above: RA 01-17-2024 10:22-0400 Systolic blood pressure 104 mm[Hg] Mini Whyte MD Work Phone: [facility] Comment on above: provider made aware 01-14-2024 18:26-0400 Body temperature 97.2 [degF] Kyle Lane APRN.MODEL AND MOLD MAKER Work Phone: [facility] 01-14-2024 18:26-0400 Diastolic blood pressure 79 mm[Hg] Kyle Lane APRN.MODEL AND MOLD MAKER Work Phone: [facility] 01-14-2024 18:26-0400 Heart rate 77 /min Klye Lane APRN.MODEL AND MOLD MAKER Work Phone: [facility] 01-14-2024 18:26-0400 Respiratory rate 18 /min Kyle Lane APRN.MODEL AND MOLD MAKER Work Phone: [facility] 01-14-2024 18:26-0400 SaO2% (BldA) [Mass fraction] 92 % Kyle Lane APRN.MODEL AND MOLD MAKER Work Phone: [facility] 01-14-2024 18:26-0400 Systolic blood pressure 127 mm[Hg] Kyle Lane APRN.MODEL AND MOLD MAKER Work Phone: [facility] 12-06-2023 11:16-0400 Body temperature 98.49 [degF] Hayder Smitha DPM Work Phone: [facility] 12-06-2023 11:16-0400 Diastolic blood pressure 70 mm[Hg] Hayder Smitha DPM Work Phone: [facility] 12-06-2023 11:16-0400 Heart rate 77 /min Hayder Smitha DPM Work Phone: [facility] 12-06-2023 11:16-0400 Respiratory rate 18 /min Hayder Smitha DPM Work Phone: [facility] 12-06-2023 11:16-0400 SaO2% (BldA) [Mass fraction] 99 % Hayder Smitha DPM Work Phone: [facility] 12-06-2023 11:16-0400 Systolic blood pressure 122 mm[Hg] Hayder Smitha DPM Work Phone: [facility] 10-04-2023 14:22-0400 Body temperature 98.4 [degF] Hayder Smitha DPM Work Phone: [facility] 10-04-2023 14:22-0400 Diastolic blood pressure 70 mm[Hg] Hayder Smitha DPM Work Phone: [facility] 10-04-2023 14:22-0400 Heart rate 72 /min Hayder Smitha DPM Work Phone: [facility] 10-04-2023 14:22-0400 Respiratory rate 18 /min Hayder Smitha DPM Work Phone: [facility] 10-04-2023 14:22-0400 SaO2% (BldA) [Mass fraction] 99 % Hayder Smitha DPM Work Phone: [facility] 10-04-2023 14:22-0400 Systolic blood pressure 118 mm[Hg] Hayder Smitha DPM Work Phone: [facility] 07-26-2023 19:19-0400 Body temperature 98.4 [degF] Hayder Smitha DPM Work Phone: [facility] 07-26-2023 19:19-0400 Diastolic blood pressure 70 mm[Hg] Hayder Smitha DPM Work Phone: [facility] 07-26-2023 19:19-0400 Heart rate 78 /min Hayder Smitha DPM Work Phone: [facility] 07-26-2023 19:19-0400 Respiratory rate 18 /min Hayder Smitha DPM Work Phone: [facility] 07-26-2023 19:19-0400 SaO2% (BldA) [Mass fraction] 99 % Hayder Smitha DPM Work Phone: [facility] 07-26-2023 19:19-0400 Systolic blood pressure 117 mm[Hg] Hayder Smitha DPM Work Phone: [facility] 05-24-2023 17:38-0500 Body temperature 97 [degF] Hayder Smitha DPM Work Phone: [facility] 05-24-2023 17:38-0500 Diastolic blood pressure 70 mm[Hg] Hayder Smitha DPM Work Phone: [facility] 05-24-2023 17:38-0500 Heart rate 70 /min Hayder Smitha DPM Work Phone: [facility] 05-24-2023 17:38-0500 Respiratory rate 18 /min Hayder Smitha DPM Work Phone: [facility] 05-24-2023 17:38-0500 SaO2% (BldA) [Mass fraction] 99 % Hayder Smitha DPM Work Phone: [facility] 05-24-2023 17:38-0500 Systolic blood pressure 115 mm[Hg] Hayder Smitha DPM Work Phone: [facility] 11-02-2022 09:24-0400 Body temperature 97.81 [degF] Hayder Smitha DPM Work Phone: [facility] 11-02-2022 09:24-0400 Diastolic blood pressure 70 mm[Hg] Hayder Smitha DPM Work Phone: [facility] 11-02-2022 09:24-0400 Heart rate 70 /min Hayder Smitha DPM Work Phone: [facility] 11-02-2022 09:24-0400 Respiratory rate 18 /min Hayder Smitha DPM Work Phone: [facility] 11-02-2022 09:24-0400 SaO2% (BldA) [Mass fraction] 99 % Hayder Smitha DPM Work Phone: [facility] 11-02-2022 09:24-0400 Systolic blood pressure 110 mm[Hg] Hayder Smitha DPM Work Phone: [facility] 08-24-2022 15:31-0400 Body temperature 97.5 [degF] Hayder Smitha DPM Work Phone: [facility] 08-24-2022 15:31-0400 Diastolic blood pressure 70 mm[Hg] Hayder Smitha DPM Work Phone: [facility] 08-24-2022 15:31-0400 Heart rate 77 /min Hayder Smitha DPM Work Phone: [facility] 08-24-2022 15:31-0400 Respiratory rate 17 /min Hayder Smitha DPM Work Phone: [facility] 08-24-2022 15:31-0400 SaO2% (BldA) [Mass fraction] 99 % Hayder Smitha DPM Work Phone: [facility] 08-24-2022 15:31-0400 Systolic blood pressure 110 mm[Hg] Hayder Bone DPM Work Phone: [facility] 05-25-2022 11:07-0500 Body height 167.6 cm Leela Sheets DO Work Phone: [facility] 05-25-2022 11:07-0500 Body temperature 98.1 [degF] Leela Sheets DO Work Phone: [facility] 05-25-2022 11:07-0500 Body weight 79.83 kg Leela Sheets DO Work Phone: [facility] 05-25-2022 11:07-0500 Diastolic blood pressure 70 mm[Hg] Leela Sheets DO Work Phone: [facility] 05-25-2022 11:07-0500 Heart rate 87 /min Leela Sheets DO Work Phone: [facility] 05-25-2022 11:07-0500 SaO2% (BldA) [Mass fraction] 93 % Leela Sheets DO Work Phone: [facility] 05-25-2022 11:07-0500 Systolic blood pressure 110 mm[Hg] Leela Sheets DO Work Phone: [facility] 03-29-2022 10:35-0500 Body height 167.6 cm Elise Coyner [employer]WORK ARCHITECT.MODEL AND MOLD MAKER Work Phone: [facility] 03-29-2022 10:35-0500 Body weight 79.38 kg Leise Coyner [employer]WORK ARCHITECT.MODEL AND MOLD MAKER Work Phone: [facility] 02-24-2022 10:51-0500 Body height 167.6 cm Leela Sheets DO Work Phone: [facility] 02-24-2022 10:51-0500 Body temperature 97.81 [degF] Leela Sheets DO Work Phone: [facility] 02-24-2022 10:51-0500 Body weight 80.74 kg Leela Sheets DO Work Phone: [facility] 02-24-2022 10:51-0500 Diastolic blood pressure 68 mm[Hg] Leela Sheets DO Work Phone: [facility] 02-24-2022 10:51-0500 Heart rate 74 /min Leela Sheets DO Work Phone: [facility] 02-24-2022 10:51-0500 Respiratory rate 16 /min Leela Sheets DO Work Phone: [facility] 02-24-2022 10:51-0500 SaO2% (BldA) [Mass fraction] 93 % Leela Sheets DO Work Phone: [facility] 02-24-2022 10:51-0500 Systolic blood pressure 118 mm[Hg] Leela Sheets DO Work Phone: [facility] Encounters Encounter Date Encounter Type Care Provider Facility Start: 01-31-2025 ambulatory Everett Hart ity:[facility] Start: 01-27-2025 ambulatory Everett Hart ity:[facility] Start: 12-02-[address] Everett Cantor MD -[facility] Start: 12-02-2024 End: 12-02-2024 ambulatory Josi Garcia Facility:[facility] Start: 11-19-2024 ambulatory Josi Gudla Facility:[facility] Start: 11-19-[address] Everett Cantor MD -[facility] Start: 11-18-2024 End: 11-18-[address] Josi Garcia MD -[facility] Start: 11-18-2024 End: 11-18-[address] Everett Cantor MD -[facility] Start: 11-18-2024 End: 11-18-2024 ambulatory Josi Garcia Facility:[facility] Start: 11-10-2024 End: 11-10-2024 Orders Only Mini Whyte MD Work Phone: [facility] Comment on above: Glioblastoma (HCC) ( Primary Dx) Start: 11-07-2024 End: 11-13-2024 Telephone encounter Mini Whyte MD Work Phone: [facility] Comment on above: MARYJANE 2-4 weeks MARYJANE 3 months Start: 11-06-2024 End: 11-06-2024 ambulatory LILLIE HORTON Facility:[facility] Start: 11-06-2024 End: 11-06-2024 Patient encounter procedure Lillie Horton MD Work Phone: [facility] Comment on above: 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); Spasticity; History of brain tumor; History of stroke Start: 11-05-2024 End: 11-05-20[facility] Start: 11-05-2024 End: 11-05-2024 Patient encounter procedure Mini Whyte MD Work Phone: [facility] Comment on above: Astrocytoma brain tu mor (HCC) (Primary Dx); Spasticity; Cognitive decline Start: 11-04-2024 ambulatory [facility] Facility:[facility] Start: 11-04-2024 End: 11-04-2024 Subsequent hospital visit by physician [facility] Wstr (I-Stat/1.5t) Work Phone: Radiology Comment on above: 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 Everett Cantor MD [facility] Start: 08-13-2024 End: 08-13-[address] Josi Garcia MD [facility] Work Phone: Start: 08-13-2024 End: 08-13-[address] Everett Cantor MD -[facility] Start: 08-13-[address] Everett Cantor MD -[facility] Start: 08-13-2024 End: 08-13-2024 ambulatory [facility] Facility:[facility] Start: 08-08-2024 End: 08-08-[address] Josi Garcia MD [facility] Work Phone: Start: 08-08-2024 End: 08-08-[address] Everett Cantor MD -[facility] Start: 08-07-2024 End: 08-08-2024 ambulatory [facility] Facility:[facility] Start: 08-07-[address] Josi Garcia MD -[facility] Start: 08-05-2024 End: 08-06-2024 Orders Only Mini Whyte MD Work Phone: [facility] Comment on above: Astrocytoma brain tu mor (HCC) (Primary Dx) MARYJANE 4 weeks Start: 07-31-2024 End: 07-31-2024 ambulatory MINI WHYTE Facility:[facility] Start: 07-31-2024 End: 07-31-2024 Patient encounter procedure Mini Whyte MD Work Phone: [facility] Comment on above: Spasticity (Primary Dx); Astrocytoma brain tumor (HCC) Start: 07-25-2024 End: 09-24-2024 Follow-up encounter Mini Whyte MD Work Phone: [facility] Start: 07-24-2024 ambulatory MINI WHYTE Facility:[facility] Start: 07-24-2024 End: 07-24-2024 Subsequent hospital visit by physician [facility] W[facility] (I-Stat/1.5t) Work Phone: Radiology Comment on above: 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] Start: 06-27-2024 End: 06-27-2024 Telephone encounter Mini Whyte MD Work Phone: Hematology/Oncology Comment on above: MARYJANE 07/2024 Start: 06-12-2024 End: 11-12-2024 Telephone encounter Mini Whyte MD Work Phone: [facility] [place] Start: 06-09-2024 End: 06-09-2024 Telephone encounter Diane Siu [employer]WORK ARCHITECT.MODEL AND MOLD MAKER Work Phone: [facility] Comment on above: Appointment Start: 05-28-2024 End: 05-28-2024 Orders Only Mini Whyte MD Work Phone: [facility] Comment on above: Anaplastic astrocyto ma (HCC) (Primary Dx) Start: 05-26-2024 End: 05-26-2024 ambulatory DIOR ANGUIANO Facility:[facility] Start: 05-26-2024 End: 05-26-2024 Office outpatient [...] Start: 05-26-2024 End: 05-26-2024 ambulatory MINI WHYTE Facility:[facility] Start: 05-26-2024 End: 05-26-2024 Patient encounter [...] Start: 05-26-2024 End: 05-26-2024 ambulatory MINI WHYTE Facility:[facility] Start: 05-26-2024 End: 05-26-2024 Subsequent hospital visit by physician [facility] Comment on above: Allergy to intraveno us contrast media [Z91.041] 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] Start: 05-15-2024 End: 05-15-2024 Telephone encounter Mini Whyte MD Work Phone: Hematology/Oncology Comment on above: Patient Update Start: 05-13-2024 End: 07-13-2024 Follow-up encounter Mini Whyte MD Work Phone: [facility] [place] Start: 05-13-2024 End: 05-13-2024 Telephone encounter Mini Whyte MD Work Phone: [facility] [place] Start: 05-12-2024 End: 05-26-2024 Telephone encounter Mini Whyte MD Work Phone: [facility] Comment on above: MARYJANE Add on for 05/26 Start: 05-09-2024 End: 05-09-2024 Telephone encounter Mini Whyte MD Work Phone: [facility] Start: 05-08-2024 End: 05-08-2024 Telephone encounter Mini Whyte MD Work Phone: [facility] [place] Start: 05-08-2024 End: 05-09-2024 ambulatory Mini Whyte MD Work Phone: [facility] [place] Comment on above: 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) (Primary Dx); Allergy to intravenous contrast media; Anaplastic astrocytoma (HCC); Mild cognitive impairment; Cognitive decline; Spondylosis of cervical joint; Injury of cervical spinal cord, sequela (HCC); H/O laminectomy Start: 05-08-2024 End: 05-09-2024 Telemedicine consultation with patient Mini Whyte MD Work Phone: [facility] Start: 05-07-2024 End: 05-07-2024 Orders Only Mini Whyte MD Work Phone: [facility] Comment on above: Brain tumor (HCC) (P rimary Dx) Start: 05-02-2024 End: 05-02-2024 Telephone encounter Mini Whyte MD Work Phone: Hematology/Oncology Comment on above: Images requested MRA /MRI Start: 04-29-2024 End: 04-29-[address] Josi Garcia MD [facility] Work Phone: Start: 04-29-2024 End: 04-29-[address] Josi Garcia MD -MRI - [facility] Work Phone: Start: 04-29-2024 End: 04-29-2024 ambulatory Josi Garcia Facility:[facility] Start: 04-11-2024 End: 04-11-2024 Telephone encounter Mini Whyte MD Work Phone: Hematology/Oncology Comment on above: Patient Update Start: 04-07-2024 ambulatory KYLE RAJAN Facility:[facility] Start: 04-01-2024 End: 04-01-2024 Telephone encounter Mini Whyte MD Work Phone: [facility] [place] Comment on above: Confirm appt for 04/02 Start: 03-31-2024 End: 03-31-2024 Telephone encounter Mini Whyte MD Work Phone: [facility] Comment on above: 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 Josi Garcia MD -[facility] Start: 03-31-2024 End: 03-31-2024 ambulatory Josi CURRIE Facility:[facility] Start: 03-28-2024 ambulatory Josi CURRIE Facili ty:[facility] Start: 03-28-[address] Josi Garcia MD -[facility] Start: 03-27-2024 End: 03-27-[address] Josi Garcia MD -[facility] Start: 03-27-2024 End: 03-27-2024 ambulatory Josi CURRIE Facility:[facility] Start: 03-24-2024 End: 03-24-2024 ambulatory Greda Dee RN Work Phone: [facility] Comment on above: Facility change to [facility] Start: 03-24-2024 End: 03-24-2024 Telephone encounter Mini Whyte MD Work Phone: [facility] Comment on above: MRA 04/02/24- facility aware Allergy to intraveno us contrast media; Anaplastic astrocytoma (HCC); Mild cognitive impairment; Cognitive decline Start: 03-20-2024 End: 03-20-2024 ambulatory Zora Flores APRN.MODEL AND MOLD MAKER Work Phone: [facility] Comment on above: Acute cystitis witho ut hematuria (Primary Dx) Start: 03-20-2024 End: 03-20-2024 Telemedicine consultation with patient Zora Flores APRN.MODEL AND MOLD MAKER Work Phone: [facility] Start: 03-18-2024 End: 03-18-2024 ambulatory Zora Flores APRN.MODEL AND MOLD MAKER Work Phone: [facility] Comment on above: [...] encounter procedure Itri Joey Layn Work Phone: [facility] [employer] Start: 03-04-2024 End: 03-06-2024 Progress Note Itri A Odell Work Phone: [facility] Senior Ux Developer Start: 02-28-2024 End: 02-28-2024 Orders Only Mini [...] 02-18-2024 End: 02-18-2024 Orders Only Zora Flores APRN.MODEL AND MOLD MAKER Work Phone: [facility] Comment on above: Osteoarthritis invol ving multiple joints on both sides of body (Primary Dx) Start: 02-13-2024 End: 02-14-2024 ambulatory BINDU Thomas CARMEL Facility:[facility] Start: 02-10-2024 End: 02-10-[address] JESSE.MODEL AND MOLD MAKER Work Phone: [facility] Comment on above: Fall, initial encoun ter (Primary Dx) Start: 02-10-2024 End: 02-10-2024 Telemedicine consultation with patient Kyle Lane APRN.MODEL AND MOLD MAKER Work Phone: [facility] Start: 02-07-2024 End: 02-07-2024 Unlisted evaluation and management service Hayder Bone DPM Work Phone: Dr. London Campos [facility] Comment on above: Nail dystrophy (Prim josie Dx); Aspirin long-term use Start: 02-06-2024 End: 02-06-2024 Telephone encounter Mini Whyte MD Work Phone: [facility] Comment on above: Returning Patient's Call; Appointment Appointment confirma tion =facility updated Start: 01-24-2024 End: 01-24-2024 Refill Zora Flores APRN.MODEL AND MOLD MAKER Work Phone: [facility] Start: 01-23-2024 End: 01-23-2024 Orders Only Mini Whyte MD Work Phone: Hematology/Oncology Comment on above: Astrocytoma (HCC) (P rimary Dx) Start: 01-21-2024 End: 02-01-2024 Telephone encounter Mini Whyte MD Work Phone: [facility] [place] Comment on above: MARYJANE week of 02/25/24 Appointment follow u p Start: 01-17-2024 End: 01-17-2024 Patient encounter procedure Mini Whyte MD Work Phone: [facility] [place] Comment on above: Anaplastic astrocyto ma (HCC) (Primary Dx); Hemiparesis, unspecified hemiparesis etiology, unspecified laterality (HCC); Mild cognitive impairment; Cognitive decline Start: 01-15-2024 End: 01-15-2024 ambulatory Gerda Dee RN Work Phone: [facility] [place] Comment on above: Chart prep/record re view Start: 01-14-2024 End: 01-14-[address] APRN.MODEL AND MOLD MAKER Work Phone: [facility] Comment on above: Fall, initial encoun ter (Primary Dx) Start: 01-14-2024 End: 01-14-2024 Telemedicine consultation with patient Kyle Lane APRN.MODEL AND MOLD MAKER Work Phone: [facility] Start: 01-08-2024 End: 01-08-2024 Telephone encounter Self [facility] Comment on above: Triage (Initial Call ) Start: 01-01-2024 End: 01-01-2024 ambulatory Zora Flores APRN.MODEL AND MOLD MAKER Work Phone: [facility] Comment on above: Foul smelling urine (Primary Dx); Recurrent UTI Start: 01-01-2024 End: 01-03-2024 Patient encounter procedure Macarena Bain Work Phone: [facility] Senior Ux Developer Start: 01-01-2024 End: 01-03-2024 Progress Note Itrgustavo Bain Work Phone: Eduardo Vo Senior Ux Developer Start: 01-01-2024 End: 01-01-2024 Telemedicine consultation with patient Zora Zacarias MOLINA.MODEL AND MOLD MAKER Work Phone: [facility] Start: 12-25-2023 End: 12-25-2023 Subsequent hospital visit by physician [facility] Start: 12-24-2023 End: 12-24-2023 Telephone encounter Johanny Quinn RN Radiology Ct Scan Comment on above: Results; Appointment Start: 12-06-2023 End: 12-06-2023 ambulatory Zora Flores APRN.CHRISTIANO Work Phone: [facility] Comment on above: Osteoarthritis of mu ltiple joints, unspecified osteoarthritis type (Primary Dx); Essential hypertension; Chronic cervical pain Start: 12-06-2023 End: 12-06-2023 Telemedicine consultation with patient Zora Flores APRN.MODEL AND MOLD MAKER Work Phone: [facility] Start: 12-06-2023 End: 12-10-2023 Unlisted evaluation and management service Hayder Bone DPM Work Phone: [facility] London Campos [facility] Comment on above: Nail dystrophy (Prim [...] encounter procedure Itri Joey Layn Work Phone: [facility] Start: 11-06-2023 Progress Note Itri A Odell Work Phone: [facility] Senior Ux Developer Start: 11-06-2023 Telemedicine consultation with patient Zora Flores APRN.CHRISTIANO Work Phone: [facility] Start: 10-11-2023 ambulatory Zora Flores APRN.CHRISTIANO Work Phone: [facility] Comment on above: Osteoarthritis of mu ltiple joints, unspecified osteoarthritis type (Primary Dx); Left hip pain; Chronic neck pain; Essential hypertension Start: 10-11-2023 Telemedicine consultation with patient Zora Flores APRN.MODEL AND MOLD MAKER Work Phone: [facility] Start: 10-04-2023 Unlisted evaluation and management service Hayder Bone DPM Work Phone: [facility] London Campos [facility] Comment on above: Nail dystrophy (Prim josie Dx); Aspirin long-term use Start: 09-11-2023 Patient encounter procedure Itri A Odell Work Phone: [facility] Senior Ux Developer Start: 09-11-2023 Progress Note Itri A Odell Work Phone: [facility] Start: 08-28-2023 ambulatory Zorareza Flores APRN.MODEL AND MOLD MAKER Work Phone: [facility] Comment on above: Osteoarthritis of mu ltiple joints, unspecified osteoarthritis type (Primary Dx); Left hip pain Start: 08-28-2023 Telemedicine consultation with patient Zora Flores JESSE.MODEL AND MOLD MAKER Work Phone: [facility] Start: 08-16-2023 ambulatory Zora Zacarias MOLINA.MODEL AND MOLD MAKER Work Phone: [facility] Comment on above: Osteoarthritis of mu ltiple joints, unspecified osteoarthritis type (Primary Dx); Chronic neck pain; Essential hypertension Start: 08-16-2023 Telemedicine consultation with patient Zora Flores JESSE.MODEL AND MOLD MAKER Work Phone: [facility] Start: 07-26-2023 Unlisted evaluation and management service Hayder Bone DPM Work Phone: [facility] London Campos [facility] Comment on above: Nail dystrophy (Prim josie Dx); Aspirin long-term use Start: 07-24-2023 Refill Zora Zacarias MOLINA.MODEL AND MOLD MAKER Work Phone: [facility] Start: 06-27-2023 Patient encounter procedure Itri A Odell Work Phone: [facility] Start: 06-27-2023 Progress Note Itri A Odell Work Phone: [facility] Senior Ux Developer Start: 06-19-2023 ambulatory Zora Zacarias MOLINA.MODEL AND MOLD MAKER Work Phone: [facility] Comment on above: Osteoarthritis of mu ltiple joints, unspecified osteoarthritis type (Primary Dx); Chronic neck pain; Essential hypertension Start: 06-19-2023 Telemedicine consultation with patient Zora Zacarias MOLINA.MODEL AND MOLD MAKER Work Phone: [facility] Start: 05-24-2023 Unlisted evaluation and management service Hayder MARIEM Work Phone: Dr[facility] London Campos [facility] Comment on above: Nail dystrophy (Prim josie Dx); Aspirin long-term use Start: 05-03-2023 Patient encounter procedure Itri A Odell Work Phone: [facility] Start: 05-03-2023 Progress Note Itri A Odell Work Phone: [facility] Senior Ux Developer Start: 02-28-2023 Patient encounter procedure Itri A Odell Work Phone: [facility] Start: 02-28-2023 Progress Note Itri A Odell Work Phone: [facility] Start: 02-13-2023 ambulatory Zora Zacarias RUANON.MODEL AND MOLD MAKER Work Phone: [facility] Comment on above: Osteoarthritis of mu ltiple joints, unspecified osteoarthritis type (Primary Dx); Chronic neck pain; Essential hypertension Start: 02-13-2023 Telemedicine consultation with patient Zora Zacarias MOLINA.MODEL AND MOLD MAKER Work Phone: [facility] Start: 01-02-2023 Patient encounter procedure Itri A Odell Work Phone: [facility] Start: 01-02-2023 Progress Note Itri A Odell Work Phone: [facility] Senior Ux Developer Start: 12-12-2022 ambulatory Zora Flores [employer] NETWORK ARCHITECT.MODEL AND MOLD MAKER Work Phone: [facility] Comment on above: Osteoarthritis of mu ltiple joints, unspecified osteoarthritis type (Primary Dx); Chronic neck pain; Essential hypertension Start: 12-12-2022 Telemedicine consultation with patient Zora Flores JESSE.MODEL AND MOLD MAKER Work Phone: [facility] Start: 11-02-2022 Unlisted evaluation and management service Hayder MARIEM Work Phone: Dr[facility] London Campos [facility] Comment on above: Nail dystrophy (Prim josie Dx); Aspirin long-term use Start: 09-27-2022 Refill Zora Flores APRN.MODEL AND MOLD MAKER Work Phone: [facility] Start: 09-12-2022 ambulatory Zora Flores APRN.MODEL AND MOLD MAKER Work Phone: [facility] Comment on above: Osteoarthritis of mu ltiple joints, unspecified osteoarthritis type (Primary Dx); Essential hypertension; Chronic neck pain; Abnormal gait Start: 09-12-2022 Telemedicine consultation with patient Zora Flores APRN.MODEL AND MOLD MAKER Work Phone: [facility] Start: 09-07-2022 ambulatory Zora Flores APRN.MODEL AND MOLD MAKER Work Phone: [facility] Comment on above: Osteoarthritis of mu ltiple joints, unspecified osteoarthritis type (Primary Dx); Essential hypertension; Chronic neck pain; Abnormal gait OPENED IN ERROR (Iva riley Dx) Start: 09-07-2022 Telemedicine consultation with patient Zora Flores JESSE.MODEL AND MOLD MAKER Work Phone: [facility] Start: 08-29-2022 ambulatory Zora Flores APRN.MODEL AND MOLD MAKER Work Phone: [facility] Comment on above: Osteoarthritis of mu ltiple joints, unspecified osteoarthritis type (Primary Dx); Essential hypertension; Chronic neck pain; Abnormal gait Start: 08-29-2022 Telemedicine consultation with patient Zora Flores JESSE.MODEL AND MOLD MAKER Work Phone: [facility] Start: 08-28-2022 Refill Zora Flores APRN.MODEL AND MOLD MAKER Work Phone: [facility] Start: 08-25-2022 ambulatory Zora Flores APRN.MODEL AND MOLD MAKER Work Phone: [facility] Comment on above: Essential hypertensi on (Primary Dx); Abnormal gait; Chronic cervical pain Start: 08-25-2022 Telemedicine consultation with patient Zora Flores APRN.MODEL AND MOLD MAKER Work Phone: [facility] Start: 08-24-2022 Initial nursing faci lity care/day 25 minutes Hayder Bone DPM Work Phone: Dr[facility] London Campos [facility] Comment on above: Pain due to onychomy cosis of toenail of right foot (Primary Dx); Pain due to onychomycosis of toenail of left foot; Aspirin long-term use Start: 08-23-2022 ambulatory Zora Flores [employer]ISCO NETWORK ARCHITECT.MODEL AND MOLD MAKER Work Phone: [facility] Comment on above: Essential hypertensi on (Primary Dx); Abnormal gait; Chronic cervical pain Start: 08-23-2022 Telemedicine consultation with patient Zora Flores APRN.MODEL AND MOLD MAKER Work Phone: [facility] Start: 08-08-2022 ambulatory Zora Flores CISCO NETWORK ARCHITECT.MODEL AND MOLD MAKER Work Phone: [facility] Comment on above: Essential hypertensi on (Primary Dx); Abnormal gait; Chronic cervical pain Start: 08-08-2022 Telemedicine consultation with patient Zora Flores APRN.MODEL AND MOLD MAKER Work Phone: [facility] Start: 08-07-2022 Patient encounter procedure Macarena Bain Work Phone: [facility] Start: 08-07-2022 Progress Note Macarena Bain Work Phone: [facility] Start: 08-04-2022 Telephone encounter Leela Mcclain Sheets DO [facility] Comment on above: Patient Question Start: 07-31-2022 Refill Leela Villalba ets DO Work Phone: [facility] Comment on above: Refill Request Start: 07-19-2022 Telephone encounter Riley Palmer [facility] Comment on above: Appointment Start: 07-13-2022 Refill Leela Villalba ets DO Work Phone: [facility] Comment on above: Refill Request Start: 06-30-2022 Refill Leela C She ets DO Work Phone: [facility] Comment on above: Refill Request Start: 05-31-2022 Refill Leela C She ets DO Work Phone: [facility] Comment on above: Refill Request Start: 05-25-2022 Telephone encounter Leela C Sheets DO Work Phone: [facility] Comment on above: Medication Problem Start: 05-25-2022 End: 05-25-2022 ambulatory LEELA C SHEETS Facility:[facility] Start: 05-25-2022 End: 05-25-2022 Patient encounter procedure Leela C Sheets DO Work Phone: [facility] Comment on above: Essential hypertensi on (Primary Dx); Chronic cervical pain; Grief; Smoker; Encounter for immunization Start: 05-22-2022 Refill Leela C She ets DO Work Phone: [facility] Comment on above: Refill Request Start: 05-19-2022 Refill Leela C She ets DO Work Phone: [facility] Comment on above: Refill Request Start: 04-21-2022 Refill Leela C She ets DO Work Phone: [facility] Comment on above: Refill Request Start: 04-12-2022 End: 04-12-2022 Patient encounter procedure Elise Heck APRN.MODEL AND MOLD MAKER Work Phone: Urology Comment on above: Overactive bladder ( Primary Dx); Urine retention; Frequent UTI; Atrophic vaginitis Start: 03-29-2022 End: 03-29-2022 Patient encounter procedure Elise Heck APRN.MODEL AND MOLD MAKER Work Phone: Urology Comment on above: Urine retention (Iva riley Dx); Acute cystitis without hematuria; Urge incontinence Start: 03-24-2022 Telephone encounter Kelvin rodarte PA-C Work Phone: Urology Comment on above: Results Start: 03-23-2022 Telephone encounter Jair Turcios MD Work Phone: Urology Comment on above: ER Follow up appt Start: 03-22-2022 ambulatory Riley Palmer MA [facility] Comment on above: ED OUTREACH (ED OUTR EACH/) Start: 03-20-2022 End: 03-21-2022 Emergency department patient visit LEELA C SHEETS Facility:[facility] Start: 03-14-2022 Refill Leela C She ets DO Work Phone: [facility] Comment on above: Refill Request Start: 02-24-2022 End: 02-24-2022 ambulatory LEELA C SHEETS Facility:[facility] Start: 02-24-2022 End: 02-24-2022 Patient encounter procedure Leela C Sheets DO Work Phone: [facility] Comment on above: Chronic cervical kalyan n (Primary Dx); Chronic abdominal pain; Smoker Start: 02-14-2022 Refill Leela C She ets DO Work Phone: [facility] Comment on above: Refill Request Start: 01-18-2022 ambulatory LEELA C JEVON Facil ity:[facility] Start: 01-18-2022 End: 01-18-2022 Subsequent hospital visit by physician [facility] Comment on above: Generalized abdomina l pain [R10.84] Start: 01-11-2022 Refill Leela C She ets DO Work Phone: [facility] Comment on above: Refill Request Start: 12-29-2021 Refill Leela C She ets DO Work Phone: [facility] Comment on above: Refill Request Start: 12-26-2021 End: 12-27-2021 ambulatory FERNANDO NIETO Facility:[facility] Start: 12-14-2021 Refill Leela C She ets DO Work Phone: [facility] Start: 12-02-2021 End: 12-02-2021 ambulatory LEELA C SHEETS Facility:[facility] Start: 11-24-2021 Refill Leela C She ets DO Work Phone: [facility] Comment on above: Refill Request Start: 11-11-2021 Refill Leela C She ets DO Work Phone: [facility] Comment on above: Refill Request Start: 10-11-2021 Refill Leela C She ets DO Work Phone: [facility] Comment on above: Refill Request Start: 09-29-2021 Refill Leela C She ets DO Work Phone: [facility] Comment on above: Refill Request Start: 09-27-2021 Refill Leela C She ets DO Work Phone: [facility] Comment on above: Refill Request Start: 09-14-2021 Refill Leela C She ets DO Work Phone: [facility] Start: 08-26-2021 End: 08-26-2021 ambulatory LEELA C SHEETS Facility:[facility] Start: 08-08-2021 Refill Leela C She ets DO Work Phone: [facility] Comment on above: Refill Request Start: 07-11-2021 Refill Leela C She ets DO Work Phone: [facility] Comment on above: Refill Request Start: 06-27-2021 Refill Leela C She ets DO Work Phone: [facility] Comment on above: Refill Request Start: 06-23-2021 Telephone encounter Orin hanley MD Work Phone: [facility] Comment on above: Results Procedures Date [...] et rgnt auto w/o microscopy Elise Heck [employer] NETWORK ARCHITECT.MODEL AND MOLD MAKER Work Phone: Start: 06-23-2021 Lipid 1996 panel - S brendon or Plasma Zora Flores [employer] NETWORK ARCHITECT.MODEL AND MOLD MAKER Work Phone: Start: 02-16-2021 Adult depression scr eening assessment Orin Luis MD Work Phone: Start: 06-22-2020 Mammography Orin henson MD Work Phone: Start: 05-05-2016 Colonoscopy Orin henson MD Work Phone: Plan of Treatment Date Care Activity Detail Author Start: 01-21-2039 RSV Vaccine (1 - 1-dose 75+ series) RSV Vaccine (1 - 1-dose 75+ series) [facility] Start: 01-21-2029 PNEUMOCOCCAL (3 - PPSV23 if available, else PCV20) PNEUMOCOCCAL (3 - PPSV23 if available, else PCV20) [facility] Start: 01-21-2029 PNEUMOCOCCAL (3 - PPSV23 or PCV20) PNEUMOCOCCAL (3 - PPSV23 or PCV20) [facility] Start: 01-21-2029 Pneumococcal vaccination [facility] Start: 02-20-2028 Urine microalbumin profile [facility] Start: 08-26-2026 Pneumococcal Vaccine: 50+ (3 of 3 - PCV20 or PCV21) Pneumococcal Vaccine: 50+ (3 of 3 - PCV20 or PCV21) [facility] Start: 06-23-2026 Lipid 1996 panel - Serum or Plasma Lipid Screening [facility] Start: 06-23-2026 Lipid panel Lipid Screening [facility] Start: 06-23-2026 LIPID SCREEN LIPID SCREEN [facility] Start: 05-05-2026 Colonoscopy COLONOSCOPY [facility] Start: 05-05-2026 COLORECTAL CANCER SCREENING COLORECTAL CANCER SCREENING [facility] Start: 05-05-2026 Screening for malignant neoplasm of colon [facility] Start: 07-31-2025 BP Controlled (<130/80) BP Controlled (<130/80) [facility] Start: 05-26-2025 BP Controlled (<130/80) BP Controlled (<130/80) [facility] Start: 03-20-2025 DIABETES SCREEN DIABETES SCREEN [facility] Start: 03-20-2025 Diabetes Screening Diabetes Screening [facility] Start: 03-09-2025 End: 12-05-2025 MR Brain WO and W contrast IV MRI BRAIN WO/W IVCON Radiology Routine Astrocytoma brain tumor (HCC) Spasticity Cognitive decline Expected: 03/09/2025, Expires: 12/05/2025 [facility] Work Phone: Comment on above: Expected: 03/09/2025, Expires: Start: 02-27-2025 BP Controlled (<130/80) BP Controlled (<130/80) [facility] Start: 02-09-2025 BP Controlled (<130/80) BP Controlled (<130/80) [facility] Start: 02-06-2025 BP Controlled (<130/80) BP Controlled (<130/80) [facility] Start: 2025 End: 2025 Patient encounter procedure 2025 9:45 AM EDT Office Visit [facility] [address] [place] [address] Lillie Horton MD [address] [place], [place] [id number] Spasticity follow up [facility] Comment on above: Spasticity follow up Start: 01-16-2025 BP Controlled (<130/80) BP Controlled (<130/80) [facility] Start: 01-13-2025 BP Controlled (<130/80) BP Controlled (<130/80) [facility] Start: 12-26-2024 DIABETES SCREEN DIABETES SCREEN [facility] Start: 12-05-2024 BP Controlled (<130/80) BP Controlled (<130/80) [facility] Start: 11-24-2024 Influenza vaccination [facility] Start: 11-06-2024 End: 11-06-2024 Patient encounter procedure 11/06/2024 1:00 PM EDT Office Visit [facility] [address] [place] [address] Lillie Horton MD [address] [place] [address] Spasticity [facility] Comment on above: Spasticity Start: 11-05-2024 End: 11-05-2024 Patient encounter procedure 11/05/2024 9:30 AM EDT Office Visit [facility] [place] [address] [place] [address] Mini Whyte MD [address] [place] [address] Scheduling Request - Established Patient [facility] Comment on above: Scheduling Request - Established Patient Start: 11-04-2024 End: 11-04-2024 Patient encounter procedure 11/04/2024 8:30 AM EDT Appointment Radiology [address] [place], [place] [id number] Scheduling Request - Established Patient Radiology Comment on above: Scheduling Request - Established Patient Start: 10-03-2024 BP Controlled (<130/80) BP Controlled (<130/80) [facility] Start: 09-04-2024 End: 09-04-2024 Patient encounter procedure 09/04/2024 12:45 PM EDT Office Visit Neurology [address] [address] Casper Haynes MD [address] [place] [address] [facility] Comment on above: [facility] Start: 07-31-2024 End: 07-31-2024 Patient encounter procedure 07/31/2024 9:00 AM EDT Office Visit [facility] [address] [place] [address] Mini Whyte MD [address] [place] [address] Scheduling Request - Established Patient [facility] Comment on above: Scheduling Request - Established Patient Start: 07-25-2024 BP Controlled (<130/80) BP Controlled (<130/80) [facility] Start: 07-24-2024 End: 07-24-2024 Patient encounter procedure 07/24/2024 8:00 AM EDT Appointment Rad[facility] [address] [facility] [place] [id number] Scheduling Request - Established Patient Radiology Comment on above: Scheduling Request - Established Patient Start: 06-23-2024 DIABETES SCREEN DIABETES SCREEN [facility] Start: 06-17-2024 End: 06-17-2024 Patient encounter procedure 06/17/2024 11:00 AM EDT Office Visit Rehab Medicine [address] [place] [address] Ibrahima Clemens MD [address] [place] [address] Injury of cervical spinal cord, 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] [facility] Comment on above: Injury of cervical spinal cord, 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] Start: 06-09-2024 End: 06-09-2024 Patient encounter procedure 06/09/2024 1:20 PM EDT Office Visit [facility] [address] [address] Diane Siu, [employer] NETWORK ARCHITECT.MODEL AND MOLD MAKER [address] [place] [address] spasticity [facility] Comment on above: spasticity Start: 06-04-2024 End: 06-04-2024 Patient encounter procedure 06/04/2024 1:00 PM EDT Office Visit [facility] [address] [place] [address] Scott Dumont MD [address] [place] [address] Time Frame: 2-4 weeks or best [facility] [place] Comment on above: Time Frame: 2-4 weeks or best Start: 05-26-2024 End: 05-26-2024 Patient encounter procedure 05/26/2024 2:30 PM EST Office Visit [facility] [address] [place] [address] Dior Anguiano MD [address] [facility] [id number] [place] [address] Carotid Stenosis [facility] Comment on above: Carotid Stenosis Start: 05-26-2024 End: 06-02-2025 LIPID PANEL, NONFASTING LIPID PANEL, NONFASTING Lab Routine Hyperlipidemia, unspecified hyperlipidemia type Expected: 05/26/2024, Expires: 08/25/2024 [facility] Comment on above: Expected: 05/26/2024, Expires: Start: 05-26-2024 End: 05-26-2024 Patient encounter procedure 05/26/2024 11:30 AM EST Office Visit [facility] [address] [place] [address] Mini Whyte MD [address] [address] Time Frame: week of 05/26 [facility] Comment on above: Time Frame: week of 05/26 Start: 05-26-2024 End: 05-26-2024 Patient encounter procedure MRI Q Comment on above: Diagnosis: 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] XR CERVICAL 2V FLEX/ EXT Start: 05-23-2024 BP Controlled (<130/80) BP Controlled (<130/80) [facility] Start: 05-08-2024 End: 05-08-2024 ambulatory 05/08/2024 11:00 AM EST [facility] [address] [place] [address] Mini Whyte MD [address] [address] MRA/ MRI results- patient is in a facility [facility] Comment on above: MRA/ MRI results- patient is in a facili ty Start: 04-07-2024 End: 04-07-2024 Patient encounter procedure 04/07/2024 1:30 PM EST Office Visit [facility] [address] [place] [address] Mini Whyte MD [address] [address] Time Frame: next available [facility] Comment on above: Time Frame: next available Start: 04-02-2024 End: 04-02-2024 Patient encounter procedure [facility] Comment on above: Diagnosis: Allergy to intravenous contra st media [Z91.041] Start: 04-02-2024 End: 04-02-2024 Patient encounter procedure 04/02/2024 1:00 AM EST Appointment [facility] [address] [place] [address] Diagnosis: Allergy to intravenous contrast media [Z91.041] [facility] Comment on above: Diagnosis: Allergy to intravenous contra st media [Z91.041] Start: 03-26-2024 Medicare Advantage Annual Wellness Visit Medicare Advantage Annual Wellness Visit [facility] Start: 03-22-2024 BP Controlled (<130/80) BP Controlled (<130/80) [facility] Start: 02-28-2024 End: 02-28-2024 Patient encounter procedure 02/28/2024 1:30 PM EST Office Visit [facility] [place] [address] [place] [address] Mini Whyte MD [address] [address] Scheduling Request - Established Patient [facility] [place] Comment on above: Scheduling Request - Established Patient Start: 02-28-2024 End: 02-28-2024 Patient encounter procedure 02/28/2024 11:40 AM EST Appointment MRI Q [address] [address] Scheduling Request - Established Patient MRI Q Comment on above: Scheduling Request - Established Patient Start: 01-17-2024 End: 01-17-2024 Patient encounter procedure 01/17/2024 10:00 AM EDT Office Visit [facility] [place] [address] [place] [address] Mini Whyte MD [address] [place] [address] Time Frame: First available [facility] Comment on above: Time Frame: First available Start: 12-25-2023 End: 12-25-2023 Patient encounter procedure Radiology Ct Scan Comment on above: outside order scanned into patient's melissa rt Pt has contrast mariely rgy listed, in a nursing facility. Premedicating??-SCP 12/19 Start: 11-25-2023 Covid-19 Vaccine () Covid-19 Vaccine () [facility] Start: 11-25-2023 Covid-19 Vaccine () Covid-19 Vaccine () [facility] Start: 11-25-2023 Influenza vaccination [facility] Start: 11-03-2023 BP CONTROLLED (<130/80) BP CONTROLLED (<130/80) [facility] Start: 08-25-2023 BP CONTROLLED (<130/80) BP CONTROLLED (<130/80) [facility] Start: 05-26-2023 ANNUAL PCP TEAM CHRONIC DISEASE VISIT ANNUAL PCP TEAM CHRONIC DISEASE VISIT [facility] Start: 05-26-2023 BP CONTROLLED (<130/80) BP CONTROLLED (<130/80) [facility] Start: 03-26-2023 Behavioral Health Screening Behavioral Health Screening [facility] Start: 03-26-2023 Depression Assessment Depression Assessment [facility] Start: 03-25-2023 DEPRESSION ASSESSMENT DEPRESSION ASSESSMENT [facility] Comment on above: Postponed from 03/26/2022 (Declined at t his time) Start: 02-24-2023 ANNUAL PCP TEAM CHRONIC DISEASE VISIT ANNUAL PCP TEAM CHRONIC DISEASE VISIT [facility] Start: 02-24-2023 BP CONTROLLED (<130/80) BP CONTROLLED (<130/80) [facility] Start: 12-02-2022 ANNUAL PCP TEAM CHRONIC DISEASE VISIT ANNUAL PCP TEAM CHRONIC DISEASE VISIT [facility] Start: 12-02-2022 BP CONTROLLED (<130/80) BP CONTROLLED (<130/80) [facility] Start: 11-24-2022 Covid-19 Vaccine () Covid-19 Vaccine () [facility] Start: 11-24-2022 Influenza vaccination [facility] Start: 08-26-2022 ANNUAL PCP TEAM CHRONIC DISEASE VISIT ANNUAL PCP TEAM CHRONIC DISEASE VISIT [facility] Start: 08-26-2022 BP CONTROLLED (<130/80) BP CONTROLLED (<130/80) [facility] Start: 07-13-2022 End: 09-12-2022 Lipid 1996 panel - Serum or Plasma LIPID PANEL BASIC Lab Routine Pure hypercholesterolemia Expected: 07/13/2022, Expires: 09/12/2022 [facility] Work Phone: Comment on above: Expected: 07/13/2022, Expires: 3 Start: 05-26-2022 ANNUAL PCP TEAM CHRONIC DISEASE VISIT ANNUAL PCP TEAM CHRONIC DISEASE VISIT [facility] Start: 05-26-2022 BP CONTROLLED (<130/80) BP CONTROLLED (<130/80) [facility] Start: 03-26-2022 DEPRESSION ASSESSMENT DEPRESSION ASSESSMENT [facility] Start: 02-16-2022 Adult depression screening assessment DEPRESSION SCREENING [facility] Start: 11-24-2021 Influenza vaccination INFLUENZA (#1) [facility] Start: 10-13-2021 COVID-19 VACCINE (5 - Booster for Pfizer series) COVID-19 VACCINE (5 - Booster for Pfizer series) [facility] Start: 06-22-2021 Mammography [facility] Start: 06-22-2021 Screening for malignant neoplasm of breast Mammogram Screening [facility] Start: 05-11-2021 COVID-19 VACCINE (4 - Booster for Pfizer series) COVID-19 VACCINE (4 - Booster for Pfizer series) [facility] Start: 03-26-2021 DEPRESSION ASSESSMENT DEPRESSION ASSESSMENT [facility] Start: 01-21-2009 COLOGUARD (FIT-DNA) COLOGUARD (FIT-DNA) [facility] Start: 01-21-[address] COLONOGRAPHY [facility] Start: 01-21-2009 FECAL OCCULT BLOOD FECAL OCCULT BLOOD [facility] Start: 01-21-2009 Screening for malignant neoplasm of colon [facility] Start: 01-21-2009 SIGMOIDOSCOPY SIGMOIDOSCOPY [facility] Start: 01-21-1982 Anxiety Screening Anxiety Screening [facility] Start: 01-21-1982 Depression Screening Depression Screening [facility] Start: 1965 HEPATITIS B (1 of 3 - 3-dose series) HEPATITIS B (1 of 3 - 3-dose series) [facility] Start: 1965 Hepatitis B Vaccine (1 of 3 - 3-dose series) Hepatitis B Vaccine (1 of 3 - 3-dose series) [facility] BLADDER SCAN BLADDER SCAN Pro cedures Routine Urine retention Ordered: 04/12/2022 [facility] Work Phone: Comment on above: Ordered: 04/12/2022 Debridement nail any method 1-5 DEBRIDEMENT OF NAIL(S), 1-5 Procedures Routine Pain due to onychomycosis of toenail of right foot Pain due to onychomycosis of toenail of left foot Aspirin long-term use Ordered: 08/24/[address] LONDON CAMPOS [employer] Work Phone: Comment on above: Ordered: 08/24/2022 Debridement nail any method 1-5 DEBRIDEMENT OF NAIL(S), 1-5 Procedures Routine Nail dystrophy Aspirin long-term use Ordered: 11/03/[address] LONDON CAMPOS [facility] Work Phone: Comment on above: Ordered: 11/03/2022 Debridement nail any method 1-5 DEBRIDEMENT OF NAIL(S), 1-5 Procedures Routine Nail dystrophy Aspirin long-term use Ordered: 05/25/[address] LONDON CAMPOS [facility] Work Phone: Comment on above: Ordered: 05/25/2023 Debridement nail any method 1-5 DEBRIDEMENT OF NAIL(S), 1-5 Procedures Routine Nail dystrophy Aspirin long-term use Ordered: 07/29/[address] LONDON CAMPOS [facility] Work Phone: Comment on above: Ordered: 07/29/2023 Debridement nail any method 1-5 DEBRIDEMENT OF NAIL(S), 1-5 Procedures Routine Nail dystrophy Aspirin long-term use Ordered: 10/07/[address] LONDON CAMPOS [facility] Work Phone: Comment on above: Ordered: 10/07/2023 Debridement nail any method 1-5 DEBRIDEMENT OF NAIL(S), 1-5 Procedures Routine Nail dystrophy Aspirin long-term use Ordered: 12/10/[address] LONDON CAMPOS [facility] Work Phone: Comment on above: Ordered: 12/10/2023 Debridement nail any method 1-5 DEBRIDEMENT OF NAIL(S), 1-5 Procedures Routine Nail dystrophy Aspirin long-term use Ordered: 02/07/2024 BATSHEVA CAMPOS [facility] Work Phone: Comment on above: Ordered: 02/07/2024 End: 02-21-2025 MR Brain WO and W contrast IV MRI BRAIN WO/W IVCON Radiology Routine Astrocytoma (HCC) 1 Occurrences starting 01/23/2024 until 02/21/2025 [facility] Work Phone: Comment on above: 1 Occurrences starting 01/23/2024 until 02/21/2025 End: 04-03-2025 MR Brain WO and W contrast IV MRI BRAIN WO/W IVCON Radiology Routine Astrocytoma brain tumor (HCC) 1 Occurrences starting 03/04/2024 until 04/03/2025 [facility] Work Phone: Comment on above: 1 Occurrences starting 03/04/2024 until 04/03/2025 End: 06-27-2025 MR Brain WO and W contrast IV MRI BRAIN WO/W IVCON Radiology Routine Anaplastic astrocytoma (HCC) 1 Occurrences starting 05/28/2024 until 06/27/2025 [facility] Work Phone: Comment on above: 1 Occurrences starting 05/28/2024 until 06/27/2025 End: 09-04-2025 MR Brain WO and W contrast IV MRI BRAIN WO/W IVCON Radiology Routine Astrocytoma brain tumor (HCC) 1 Occurrences starting 08/05/2024 until 09/04/2025 [facility] Work Phone: Comment on above: 1 Occurrences starting 08/05/2024 until 09/04/2025 End: 12-10-2025 MR Brain WO and W contrast IV MRI BRAIN WO/W IVCON Radiology Routine Glioblastoma (HCC) 1 Occurrences starting 11/10/2024 until 12/10/2025 [facility] Work Phone: Comment on above: 1 Occurrences starting 11/10/2024 until 12/10/2025 End: 04-03-2025 MR Cervical spine WO and W contrast IV MRI CERVICAL SPINE WO/W IVCON Radiology Routine Allergy to intravenous contrast media Anaplastic astrocytoma (HCC) Mild cognitive impairment Cognitive decline Occlusion and stenosis of unspecified carotid artery Pathological fracture, other site, initial encounter for fracture 1 Occurrences starting 03/04/2024 until 04/03/2025 [facility] Comment on above: 1 Occurrences starting 03/04/2024 until 04/03/2025 End: 04-03-2025 MRA Head vessels WO contrast MRA BRAIN WO IVCON Radiology Routine Allergy to intravenous contrast media Anaplastic astrocytoma (HCC) Mild cognitive impairment Cognitive decline Occlusion and stenosis of unspecified carotid artery Pathological fracture, other site, initial encounter for fracture 1 Occurrences starting 03/04/2024 until 04/03/2025 [facility] Work Phone: Comment on above: 1 Occurrences starting 03/04/2024 until 04/03/2025 End: 06-09-2025 MRA Head vessels WO contrast MRA BRAIN WO IVCON Radiology MARYJANE 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) 1 Occurrences starting 05/10/2024 until 06/09/2025 [facility] Work Phone: Comment on above: 1 Occurrences starting 05/10/2024 until 06/09/2025 End: 04-03-2025 MRA Neck vessels WO contrast MRA CAROTID WO IVCON Radiology Routine Allergy to intravenous contrast media Anaplastic astrocytoma (HCC) Mild cognitive impairment Cognitive decline Occlusion and stenosis of unspecified carotid artery Pathological fracture, other site, initial encounter for fracture 1 Occurrences starting 03/04/2024 until 04/03/2025 [facility] Comment on above: 1 Occurrences starting 03/04/2024 until 04/03/2025 Patient referral [facility] Work Phone: End: 06-25-2025 US Carotid arteries - bilateral US CAROTID BILATERAL Radiology Routine Occlusion and stenosis of unspecified carotid artery 1 Occurrences starting 05/26/2024 until 06/25/2025 [facility] Work Phone: Comment on above: 1 [...] (HCC) 1 Occurrences starting 03/04/2024 until 04/03/2025 [facility] Comment on above: 1 Occurrences starting 03/04/2024 until 04/03/2025 [facility] Immunizations Immunization Date Immunization Notes Care Provider Kati martínez 05-25-2022 COVID-19 booster vac cine, age 12+ yr, bivalent (BrightFunnel-[id number]) Leela Sheets DO Work Phone: [facility] 12-02-2021 influenza, injectabl e, quadrivalent, contains preservative Leela Sheets DO Work Phone: [facility] 12-02-2021 influenza virus vacc ine, unspecified formulation Zora Flores [employer]CHITECT[employer]MODEL AND MOLD MAKER Work Phone: [facility] 08-26-2021 pneumococcal polysaccharide vaccine, 23 valent Leela Sheets DO Work Phone: [facility] 12-21-2020 influenza, injectabl e, quadrivalent, contains preservative Orin Smith MD Work Phone: [facility] 12-21-2020 influenza, injectabl e, quadrivalent, preservative free Orin Smith MD Work Phone: [facility] 08-18-2020 zoster vaccine recombinant Orin Smith MD Work Phone: [facility] 08-18-2020 zoster vaccine, live Orin Smith MD Work Phone: [facility] 06-28-2020 COVID-19 vaccine, ag e 12+ yr (BrightFunnel-BIONTECH - PURPLE TOP) Orin Smith MD Work Phone: [facility] 06-07-2020 COVID-19 vaccine, ag e 12+ yr (PFIZER-BIONTECH - PURPLE TOP) Orin Smith MD Work Phone: [facility] 12-22-2019 influenza, seasonal, injectable Orin Smith MD Work Phone: [facility] 12-22-2019 Seasonal, quadrivale nt, recombinant, injectable influenza vaccine, preservative free Orin Smith MD Work Phone: [facility] 12-22-2019 zoster vaccine recombinant Orin Smith MD Work Phone: [facility] 12-30-2018 influenza, injectabl e, quadrivalent, preservative free Orin Smith MD Work Phone: [facility] 12-30-2018 influenza, seasonal, injectable Orin Smith MD Work Phone: [facility] 12-26-2017 influenza, seasonal, injectable Orin Smith MD Work Phone: [facility] 01-09-2017 influenza, injectabl e, quadrivalent, preservative free Orin Smith MD Work Phone: [facility] 01-09-2017 influenza, seasonal, injectable Orin Smith MD Work Phone: [facility] 12-28-2015 influenza, seasonal, injectable Orin Smith MD Work Phone: [facility] 12-28-2015 influenza, seasonal, injectable, preservative free Orin Smith MD Work Phone: [facility] 03-11-2015 pneumococcal conjuga te vaccine, 13 valent Orin mSith MD Work Phone: [facility] 01-20-2015 influenza, seasonal, injectable Orin Smith MD Work Phone: [facility] 01-19-2015 influenza, seasonal, injectable, preservative free Orin Smith MD Work Phone: [facility] 11-21-2014 zoster vaccine, live Orin Smith MD Work Phone: [facility] 01-15-2014 influenza, seasonal, injectable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 ([id number]) (Order [id number]) Patient Info Patient Name Sex Dior Carvajal ([id number]) Female 1965 In Basket Actions Done Result [...] be discussed: Tumor Board discussion Images Reviewed: Lilc-is-jhoprv MR Angiogram of the Neck and MR [...] progression of cervical spondylosis from 2010 exam. Milling Supervisor: MAGUI Transcribe Date/Time: May 13 2024 8:25A [...] be discussed: Tumor Board discussion Images Reviewed: Jvcd-qr-cjwxvx MR Angiogram of the Neck and MR [...] vertebrae with counting from the craniocervical junction. Milling Supervisor: [facility] Transcribe Date/Time: May 08 2024 9:40A Dictated by : KATTY DAI MD This examination was interpreted and the report reviewed and electronically signed by: KATTY DAI MD on May 08 2024 10:06AM EST Results-Findings Result History MR-Spine Cervical W/WO Contrast - OVERREAD (Order #[id number]) on 05/13/2024 - Order Result History Report - Result Edited Result Information Status Provider Status Edited Result - FINAL (05/13/2024 8:39 AM) Ordered Exam Performed Date and Time 04/29/2024 Resulting Agency DIVISION OF RADIOLOGY [address] [facility] [address] Patient Images Get Images MR-Spine Cervical W/WO Contrast - OVERREAD: Patient Communication Not Released Not seen Patient Release Status: This result is not viewable by the patient. Recipient List for Orders Batch Status Sent From To Cc'd Forwarded To Results Sent 05/08/2024 10:08 AM Quintin Russu In Mini Whyte MD MR-Spine Cervical W/WO Contrast - OVERREAD [[id number]] Routing History Priority Sent On From To Message Type 05/08/2024 10:08 AM Quintin Russu In Mini Whyte MD Results Order Report Order Details documented in this encounter [facility] 05-12-2024 Telephone encounter Note If possible can we add MRA brain and C- spine xray to be added to study for 05/26? She is coming from a facility if this could be added. [place], [place] If not, let us know and they will need to arrange through her facility. Thank you Gerda Scheduling Request - New Patient Time Frame: 2-4 weeks or best Orders: Consult to neurology- [facility] (dementia) Provider or Provider [...] sister so they can arrange for transportation [facility] Work Phone: 05-12-2024 Miscellaneous Notes If possible can we add MRA brain and C- spine xray to be added to study for 05/26? She is coming from a facility if this could be added. [place], [place] If not, let us know and they will need to arrange through her facility. Thank you Gerda Scheduling Request - New Patient Time Frame: 2-4 weeks or best [facility] or [...] arrange for transportation documented in this encounter [facility] 05-09-2024 Telephone encounter Note I called [...] and left a VM on the other social contact worker, that I called: Long Tanner (Father) [phone] I will wait for them to call back. Mini Whyte MD [facility] 05-09-2024 Miscellaneous Notes I called Katie [...] and left a VM on the other social contact worker, that I called: Long Tanner (Father) [phone] I will wait for them to call back. Mini Whyte MD documented in this encounter [facility] 05-08-2024 Note HNO ID: [id number] Author: MINI WHYTE MD Service: ? Author Type: Physician Type: Progress Notes Filed: 05/10/2024 14:12 Note Text: [facility] BRAIN TUMOR CENTER NEURO-ONCOLOGY VIRTUAL VISIT NOTE This is a virtual visit using HIPAA compliant audio platform. It required patient-provider interaction for the medical decision making as documented below. I have communicated my name and active licensure. The patient's identity and physical location were verified at the time of this visit. Either the patient or their legal medical customer service representative has been informed of the risks [...] Surgery: R frontal lobe tumor resection at [facility]- ([id number]) Pathology: Anaplastic astrocytoma Neurosurgeon: Raul Tamez MD [facility] Neurosurgery , [address], [place] Radiation oncologist: Unknown PER SISTER: ONLY HAD RADIATION. NEVER HAD CHEMO However on some [facility] Notes is says - patient had chemo-radiation. 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 Again, the history is limited because we have limited records. SOCIAL: New Address (05/08/24) : [address] [place] [id number] -Sister Laureen SARGENT Therapy Status Data Form [...] 3 doses fo (more content not included)... [facility] 05-08-2024 History of Present illness Narrative Images from the original note were not included. [facility] [place] [facility] NEURO-ONCOLOGY VIRTUAL VISIT NOTE This is a virtual visit using HIPAA compliant audio platform. It required patient-provider interaction for the medical decision making as documented below. I have communicated my name and active licensure. The patient's identity and physical location were verified at the time of this visit. Either the patient or their legal medical customer service representative has been informed of the risks [...] Surgery: R frontal lobe tumor resection at [facility]- ([id number]) Pathology: Anaplastic astrocytoma Neurosurgeon: Raul Tamez MD [facility] Neurosurgery , [address], [place] Radiation oncologist: Unknown PER SISTER: ONLY HAD RADIATION. NEVER HAD CHEMO However on some [facility] Notes is says - patient had chemo-radiation. 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 Again, the history is limited because we have limited records. SOCIAL: New Address (05/08/24) : [address] [place] [address], [place] [address] -Sister Laureen SARGENT Therapy Status Data Form [...] 1.00 - 4.00 k/uL 1.92 1.95 Abs Cayey <0.87 k/uL 0.44 0.72 Abs Eosin <0.46 [...] & HISTORY: Right craniotomy brain tumor, 04/30/92 [facility] Final Diagnosis FINAL DIAGNOSIS: A,B,C&D. Brain tumor: Anaplastic astrocytoma. [facility] Nonchartable [id number] R Signed-Out [facility] Nonchartable A. FS-BRAIN TUMOR Collected: 05/18/1992 Received: 05/18/1992 B. BRAIN TUMOR Collected: 05/18/1992 Received: 05/18/1992 C. brain tumor Collected: 05/18/1992 Received: 05/18/1992 D. BRAIN TUMOR Collected: 05/18/1992 Received: 05/18/1992 SNOMED: [id number] Imaging: [facility] Procedure Notes - documented in this [...] abnormality. Age advanced moderate parenchymal volume loss. Milling Supervisor: MAGUI Transcribe Date/Time: Feb 28 2024 2:24P [...] Consider follow-up MRI brain to reassure stability. Milling Supervisor: [facility] Transcribe Date/Time: Mar 04 2024 11:20A Dictated [...] vertebrae with counting from the craniocervical junction. Milling Supervisor: MAGUI Transcribe Date/Time: May 08 2024 9:40A Dictated by : KATTY DAI MD Assessment & Plan Mrs. Carvajal, is a 58 YO RHF, per records, the patient had back on 04/30/1992 Surgery: For a right frontal lobe tumor resection at [facility] ([id number]). 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 Per the records clear neurosurgeon is Dashawn Montelongo MD [facility] Neurosurgery. Her sister confirmed today, that per her own recollection the patient ONLY HAD RADIATION AND NEVER HAD CHEMO. However on some [facility] Notes it says - patient had [...] CT contras, [facility], but she is not aware [...] patient and her sister who is the [facility], agreed with this plan. 05/08/2024 I reviewed [...] records of her brain tumor history from [facility]. -Obtain, the actual pathology, from [facility] if possible, for neuro pathology review at [facility]. -MRI brain w and w/o + perfusion in 3 months time. MRI to be done at [place] [facility]. Booked for 05/26/24. I ordered MRA of [...] Bindu Burt on 02/13/2024. -Referral, to [facility] for assessment, regarding whether there [...] see the patient, at least 50% of [id number] patient care, completing clinical documentation, obtaining and/or reviewing separately obtained history, performing a medically appropriate examination, counseling and educating the patient/family/caregiver, ordering medications, tests, or procedures, communicating with other HCPs (not separately reported), independently interpreting results (not separately reported), communicating results to the patient/family/caregiver and care coordination (not separately reported). Mini Whyte MD [facility] Leela Escoto DO [address] [place] [address] Phone patient to review MRA Neck and MRi C spine results 04/29/24 2nd read requested Patient lives in a facility documented in this encounter [facility] 05-08-2024 Miscellaneous Notes Summary: Telephone call [...] Mini Whyte MD documented in this encounter [facility] 05-08-2024 Telephone encounter Note Summary: Telephone [...] reschedule these telephone encounter. Mini Whyte MD [facility] 05-08-2024 Note HNO ID: [id number] Author: GERDA DEE RN Service: ? Author Type: Registered Nurse Type: Progress Notes Filed: 05/10/2024 14:12 Note Text: Phone patient to review MRA Neck and MRi C spine results 04/29/24 2nd read requested Patient lives in a facility [facility] 05-02-2024 Telephone encounter Note Contacted [facility] radiology ph [phone] and spoke with Lana. She will push over MRA Neck /MRI spine images. Once received and reviewed by Dr Spears he will contact patient. Gerda Dee, RN, BSN Director Informatics [facility] Work Phone: 05-02-2024 Miscellaneous Notes Contacted [facility] radiology ph [phone] and spoke with Lana. She will push over MRA Neck /MRI spine images. Once received and reviewed by Dr Spears he will contact patient. Gerda Dee, RN, BSN Director Informatics [facility] documented in this encounter [facility] 04-11-2024 Telephone encounter Note Spoke with RN at patient's nursing facility. She states that the patient is scheduled for 04/28/24 for her MRI and MRA. She has requested they push images over the [facility] after they are completed. Will add patient on for provider phone call once images are received. [facility] Work Phone: 04-11-2024 Miscellaneous Notes Spoke with RN at patient's nursing facility. She states that the patient is scheduled for 04/28/24 for her MRI and MRA. She has requested they push images over the [facility] after they are completed. Will add patient on for provider phone call once images are received. documented in this encounter [facility] 04-01-2024 Telephone encounter Note Received a call from nurse Cindy. They are unable to arrange transportation to [place] for her scans tomorrow but will arrange for them to be done at [facility]. I faxed the orders for xray c spine, MRI C spine, MRA brain/carotid to [facility] fax [phone] along with pre medication orders for prednisone and benadryl. I also faxed her appointment for May. Transmission was good. Someone from the facility will contact me with the scan dates, then we need to call [facility] radiology to have images pushed over. Due to some issues with transportation we discussed possibly doing a phone call follow up to discuss results. Patient does not have My Chart and Cindy was going to talk to social secretary about assisting with set up. Appointments in May for MRI main campus and visit same day. Gerda Dee RN, BSN Director Informatics [facility] Work Phone: 04-01-2024 Miscellaneous Notes Received a call from nurse Cindy. They are unable to arrange transportation to [place] for her scans tomorrow but will arrange for them to be done at [facility]. I faxed the orders for xray c spine, MRI C spine, MRA brain/carotid to [facility] fax [phone] along with pre medication orders for prednisone and benadryl. I also faxed her appointment for May. Transmission was good. Someone from the facility will contact me with the scan dates, then we need to call [facility] radiology to have images pushed over. Due to some issues with transportation we discussed possibly doing a phone call follow up to discuss results. Patient does not have My Chart and Cindy was going to talk to social secretary about assisting with set up. Appointments in May for MRI main campus and visit same day. Gerda Dee RN, BSN Director Informatics [facility] [...] back later today Gerda Dee RN, BSN Director Informatics [facility] documented in this encounter [facility] 04-01-2024 Telephone encounter Note I contacted [...] back later today Gerda Dee RN, BSN Director Informatics [facility] Brain Tumor & Neuro-Oncology [place] [facility] 03-31-2024 Telephone encounter Note Called and spoke with nurse Dior at [facility], they were unaware of the appointments this week and next, she took down all information and will update her records. India Chi RN [facility] 03-31-2024 Miscellaneous Notes Called and spoke with nurse Dior at [facility], they were unaware of the appointments this week and next, she took down all information and will update her records. India Chi RN documented in this encounter [facility] 03-24-2024 Note HNO ID: [id number] Author: GERDA DEE RN Service: ? Author Type: Registered Nurse Type: Progress Notes Filed: 03/24/2024 16:20 Note Text: Patient is moving to [place], [place] Gerda Dee RN, BSN Director Informatics [facility] 03-24-2024 History of Present illness Narrative Patient is moving to [place], [place] Gerda Dee RN, BSN Director Informatics [facility] [place] documented in this encounter [facility] 03-24-2024 Telephone encounter Note Contacted [facility] regarding appointments scheduled for 04/02/24 (xray, MRA) and visit with Dr Spears on 04/07. I was told she is moving today to [facility] in [facility]. I confirmed all her upcoming appointments and was told her appointment sheet will be sent with her to [facility]. I called and left a message for her sister Katie regarding her 04/02 imaging studies and appointment with Dr Spears on 04/07 Patient has prednisone for her MRI scheduled for 3/3 but will need refill for the 04/02 scans. Refill sent to Dr Spears. Gerda Dee RN, BSN Director Informatics [facility] Work Phone: 03-24-2024 Miscellaneous Notes Contacted [facility] regarding appointments scheduled for 04/02/24 (xray, MRA) and visit with Dr Spears on 04/07. I was told she is moving today to [facility] in [facility]. I confirmed all her upcoming appointments and was told her appointment sheet will be sent with her to [facility]. I called and left a message for her sister Katie regarding her 04/02 imaging studies and appointment with Dr Spears on 04/07 Patient has prednisone for her MRI scheduled for 3/3 but will need refill for the 04/[address] scans. [address] sent to Dr Spears. Gerda Dee, RN, BSN Director Informatics [facility] documented in this encounter [facility] 03-20-2024 Note HNO ID: [id number] Author: ZORA FLORES APRN.[employer]KER Service: ? Author Type: Nurse Practitioner Type: Progress Notes Filed: 03/20/2024 09:11 Note Text: Connected Care Unit Progress Note Facility: [facility] Level of Care: Long-term SNF Attending: [...] Unchanged. Medications: see current medication list in [facility] chart, reviewed (Medications in EPIC may not accurate, please see update in [facility] chart) Objective Data: Vital signs reviewed [...] condition. Electronically signed by Zora Flores APRN.CNP [facility] 03-20-2024 History of Present illness Narrative Images from the original note were not included. Connected Care Unit Progress Note Facility: [facility] Level of Care: Long-term SNF Attending: [...] Unchanged. Medications: see current medication list in [facility] chart, reviewed (Medications in EPIC may not accurate, please see update in [facility] chart) Objective Data: Vital signs reviewed [...] in condition. Electronically signed by Zora Flores APRN.[employer]KER documented in this encounter [facility] 03-18-2024 Note HNO ID: [id number] Author: ZORA FLORES APRN.CNP Service: ? Author Type: Nurse Practitioner Type: Progress Notes Filed: 03/18/2024 08:50 Note Text: Connected Care Unit Progress Note Facility: [facility] Level of Care: Long-term SNF Attending: [...] Unchanged. Medications: see current medication list in [facility] chart, reviewed (Medications in EPIC may not accurate, please see update in [facility] chart) Objective Data: Vital signs reviewed [...] days with 240 cc water Zora Flores APRN.[employer] MAKER We will continue to monitor for overall comfort, function and safety. Call for changes in condition. Electronically signed by Zora Flores APRN.CNP March 18, 2024 8:47 AM [facility] 03-18-2024 History of Present illness Narrative Images from the original note were not included. Connected Care Unit Progress Note Facility: [facility] Level of Care: Long-term SNF Attending: [...] Unchanged. Medications: see current medication list in [facility] chart, reviewed (Medications in EPIC may not accurate, please see update in [facility] chart) Objective Data: Vital signs reviewed [...] 2024 8:47 AM documented in this encounter [facility] 03-17-2024 Telephone encounter Note Sent all requests below to the scheduling pools. Dorcas [facility] Work Phone: 03-17-2024 Miscellaneous Notes Sent all requests below to the scheduling pools. Dorcas Patient resides At [facility] [phone]-let them know of any appointments. Scheduling Request [...] Time Frame: next available Orders: consult to [facility] - [facility] Provider or Provider Group: [...] 8. Quadriplegia (HCC) documented in this encounter [facility] 03-17-2024 Telephone encounter Note Done. Called the facility twice, no answer. (will try again) Mailed reminder. oDrcas [facility] Work Phone: 03-17-2024 Miscellaneous Notes Done. Called the facility twice, no answer. (will try again) Mailed reminder. Dorcas Scheduling Request - est Patient Time Frame: next available Orders: MRA brain, MRA carotid, MRI cervical spine, XR CERVICAL 2V FLEX/EXT - Ok to arrange close scan close to [place] Visit type: In person within a week from scans with Dr. Spears in person Diagnosis: brain tumor Patient lives in a facility and needs transportation arranged. PLease call [facility] Facility [phone]-let them know of any appointments. documented in this encounter [facility] 03-14-2024 Note HNO ID: [id number] Author: GERDA DEE RN Service: ? Author Type: Registered Nurse Type: Progress Notes Filed: 03/14/2024 12:26 Note Text: Spoke with Radha at [facility] pathology- brain slides from 1992 are no longer available. Await records Gerda Dee RN, BSN Director Informatics [facility] 03-14-2024 History of Present illness Narrative Spoke with Radha at [facility] pathology- brain slides from 1992 are no longer available. Await records Gerda Dee RN, BSN Director Informatics [facility] [place] documented in this encounter [facility] 03-14-2024 Note HNO ID: [id number] Author: GERDA DEE RN Service: ? Author Type: Registered Nurse Type: Progress Notes Filed: 03/14/2024 11:48 Note Text: Faxed request for pathology slides and medical records to [facility] medical records/pathology at [phone] fax [phone] Surgery was in 04/1992 Gerda Dee RN, BSN Director Informatics [facility] 03-14-2024 History of Present illness Narrative Faxed request for pathology slides and medical records to [facility] medical records/pathology at [phone] fax [phone] Surgery was in 04/1992 Gerda Dee RN, BSN Director Informatics [facility] [place] documented in this encounter [facility] 03-11-2024 Telephone encounter Note Attempted to reach Nieves- no answer Predication order and instructions copied and faxed to [facility] fax [phone]- Transmission completed on 03/11 @ 14;42 pm Prednisone 50mg is to be given starting 13 hours before scheduled MRi (on 05/26 @ 9:10 )am, 7 hours before and 1 hour before- for a total of 3 doses of 50mg each. 32- 8 pm 05/26- 2 am 05/26- 8 am Gerda Dee RN, BSN Director Informatics [facility] Tumor [facility] Neuro[facility]Oncology [place] [facility] Work Phone: 03-11-2024 Miscellaneous Notes Attempted to reach Nieves- no answer Predication order and instructions copied and faxed to [facility] fax [phone]- Transmission completed on 03/11 @ 14;42 pm Prednisone 50mg is to be given starting 13 hours before scheduled MRi (on 05/26 @ 9:10 )am, 7 hours before and 1 hour before- for a total of 3 doses of 50mg each. 32- 8 pm 05/26- 2 am 3- 8 am Gerda Dee RN, BSN Director Informatics [facility] [place] [facility] Call Caller : Nieves Johnson Contact or [phone] Reason for Call : Pt is scheduled to have her MRI on 05/26/2024. Nieves is calling for pt's premedication as pt is allergic to the contrast. Please also note the instruction on when pt is to take medication as Nieves thought pt take her premeds 3 days prior to the MRI appt. Patient requesting return call ? Yes documented in this encounter [facility] 03-10-2024 Telephone encounter Note Sent staff message New CV Patient to PSS team to assist. Imaging updated in chart per internal referral. [facility] 03-10-2024 Miscellaneous Notes Sent staff message New CV Patient to PSS team to assist. Imaging updated in chart per internal referral. Images from the original note were not included. Consult Received: Dorcas Moya Cv Triage Please schedule below request. Patient resides At [facility] [phone]-let them know of any appointments. Scheduling Request [...] 8. Quadriplegia (HCC documented in this encounter [facility] 03-10-2024 Telephone encounter Note General Call Caller : Nieves wade Johnson Contact or [phone] Reason for Call : Pt is scheduled to have her MRI on 05/26/2024. Nieves is calling for pt's premedication as pt is allergic to the contrast. Please also note the instruction on when pt is to take medication as Nieves thought pt take her premeds 3 days prior to the MRI appt. Patient requesting return call ? Yes [facility] 03-05-2024 Telephone encounter Note Images from the original note were not included. Consult Received: Dorcas Moya Cv Triage Please schedule below request. Patient resides At [facility] [phone]-let them know of any appointments. Scheduling Request [...] spinal cord, sequela (HCC) 8. Quadriplegia (HCC [facility] 03-04-2024 Telephone encounter Note Scheduling Request - est Patient Time Frame: next available Orders: MRA brain, MRA carotid, MRI cervical spine, XR CERVICAL 2V FLEX/EXT - Ok to arrange close scan close to [place] Visit type: In person within a week from scans with Dr. Spears in person Diagnosis: brain tumor Patient lives in a facility and needs transportation arranged. PLease call [facility] [phone]-let them know of any appointments. [facility] Work Phone: 03-04-2024 Telephone encounter Note Patient resides At [facility] [phone]-let them know of any appointments. Scheduling Request [...] Time Frame: next available Orders: consult to [facility] - [facility] Provider or Provider Group: [...] spinal cord, sequela (HCC) 8. Quadriplegia (HCC) [facility] Work Phone: 03-04-2024 Note Addended by: MINI MATHEWS on: 03/04/2024 01:59 PM Modules accepted: Orders [facility] 03-04-2024 Miscellaneous Notes Addended by: MINI WHYTE on: 03/04/2024 01:59 PM Modules accepted: Orders documented in this encounter [facility] 03-04-2024 Miscellaneous Notes Scheduling Request - Established Patient Time Frame: week of 05/26 Orders: MRI brain at Provider: Dr. Spears Visit type: In person same day at Diagnosis: astrocytoma documented in this encounter [facility] 03-04-2024 Telephone encounter Note Scheduling Request - Established Patient Time Frame: week of 05/26 Orders: MRI brain at Provider: Dr. Spears Visit type: In person same day at Diagnosis: astrocytoma [facility] Work Phone: 03-04-2024 History of Present illness Narrative [facility] NOTE NAME: DIOR CARVAJAL [facility] NO.: [id number] DATE OF SERVICE: 03/04/2024 ATTENDING PHYSICIAN: Macarena Bain MD [facility] Followup of multiple medical chronic issues. She is currently resting in bed. She appears quite comfortable. She has no complaints or pain. She denies being short of breath. Nursing reports no new problems. She was recently seen in followup at the [facility] for her history of brain tumor. [...] again, she is to follow up with [facility] and undergo MRI. DICTATED BY: MD PRASHANT Singleton/JOHNNIE JOB# [id number] [facility] documented in this encounter [facility] 03-04-2024 Note HNO ID: [id number] Author: MACARENA BAIN, ? Service: ? Author Type: Physician Type: Progress Notes Filed: 03/06/2024 07:48 Note Text: [facility] NOTE NAME: DIOR CARVAJAL [facility] NO.: [id number] DATE OF SERVICE: 03/04/2024 ATTENDING PHYSICIAN: Macarena Bain MD [facility] Followup of multiple medical chronic issues. She is currently resting in bed. She appears quite comfortable. She has no complaints or pain. She denies being short of breath. Nursing reports no new problems. She was recently seen in followup at the [facility] for her history of brain tumor. [...] again, she is to follow up with [facility] and undergo MRI. DICTATED BY: Macarena Bain MD IAE/AQT JOB# [id number] [facility] 02-28-2024 Note HNO ID: [id number] Author: MINI WHYTE MD Service: ? Author Type: Physician Type: Progress Notes Filed: 03/04/2024 13:59 Note Text: [facility] Clinic follow up. Diagnosis: Anaplastic astrocytoma The patient is accompanied by a staff at the [employer] facility where she resides, [place]. Subjective History of Present Illness: Mrs. Carvajal, [...] Surgery: R frontal lobe tumor resection at [facility]- ([id number]) Pathology: Anaplastic astrocytoma Neurosurgeon: Raul Tamez MD [facility] Neurosurgery , [address] [facility] [place], [place] Radiation oncologist: Unknown PER SISTER: ONLY HAD RADIATION. NEVER HAD CHEMO However on some [facility] Notes is says - patient had chemo-radiation. 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 SOCIAL: -Patient resides in [facility] -Sister Laureen Hassan MPOA Therapy Status Data [...] daily. omeprazole (PRILOSEC (more content not included)... [facility] 02-28-2024 History of Present illness Narrative Images from the original note were not included. [facility] Clinic follow up. Diagnosis: Anaplastic astrocytoma The patient is accompanied by a staff at the [employer] facility where she resides, [place]. Subjective History of Present Illness: Mrs. Carvajal, [...] Surgery: R frontal lobe tumor resection at [facility]- ([id number]) Pathology: Anaplastic astrocytoma Neurosurgeon: Raul Tamez MD [facility] Neurosurgery , [address] [place], [place] Radiation oncologist: Unknown PER SISTER: ONLY HAD RADIATION. NEVER HAD CHEMO However on some [facility] Notes is says - patient had chemo-radiation. 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 SOCIAL: -Patient resides in [facility] -Sister Laureen Hassan MPOA Therapy [...] 1.00 - 4.00 k/uL 1.92 1.95 Abs Cayey <0.87 k/uL 0.44 0.72 Abs Eosin <0.46 [...] & HISTORY: Right craniotomy brain tumor, 04/30/92 [facility] CLINICAL PATHOLOGY LABORATORY Final Diagnosis FINAL DIAGNOSIS: A,B,C&D. Brain tumor: Anaplastic astrocytoma. [facility]ICAL PATHOLOGY LAB[facility] Nonchartable [id number] R Signed-Out [facility] CLINICAL PATHOLOGY LABORATORY Nonchartable A. FS-BRAIN TUMOR Collected: 05/18/1992 Received: 05/18/1992 B. BRAIN TUMOR Collected: 05/18/1992 Received: 05/18/1992 C. brain tumor Collected: 05/18/1992 Received: 05/18/1992 D. BRAIN TUMOR Collected: 05/18/1992 Received: 05/18/1992 SNOMED: [id number] Imaging: [facility] Procedure Notes - documented in this [...] abnormality. Age advanced moderate parenchymal volume loss. Milling Supervisor: [facility] Transcribe Date/Time: Feb 28 2024 2:24P Dictated [...] frontal lobe tumor resection at [facility] ([id number]). 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 Per the records clear neurosurgeon is Dashawn Montelongo MD [facility] Neurosurgery. Her sister confirmed today, that per her own recollection the patient ONLY HAD RADIATION AND NEVER HAD CHEMO. However on some [facility] Notes it says - patient had [...] records of her brain tumor history from [facility]. -Obtain, the actual pathology, from [facility] if possible, for neuro pathology review at [facility]. -MRI brain w and w/o + perfusion in 3 months time. MRI to be done at [place] [facility]. -Premedications, with the pheniramine and prednisone to [...] Bindu Burt on 02/13/2024. -Referral, to [facility] for assessment, regarding whether there [...] see the patient, at least 50% of clap-sp-vtww patient care, completing clinical documentation, obtaining and/or reviewing separately obtained history, performing a medically appropriate examination, counseling and educating the patient/family/caregiver, ordering medications, tests, or procedures, communicating with other HCPs (not separately reported), independently interpreting results (not separately reported), communicating results to the patient/family/caregiver and care coordination (not separately reported). Mini Whyte MD [facility] Leela Escoto DO [address] [place] [phone] documented in this encounter [facility] 02-28-2024 Nurse Note Additional intake questions: Has the patient had fever, nausea, vomiting, diarrhea, constipation, fatigue for > 1 week? No Does the patient have a decreased appetite? No Does patient want to see a Timers Inspector? No (yes to any of above refer patient to schedulers for dietitian appointment) ) Does patient have any new or increased numbness or tingling of extremities? No Is patient interested in fertility information? No Does patient need any prescription refills? No Does patient have an advanced directive in place? No, Patient referred to [facility] 02-28-2024 Nurse Note Additional intake questions: Has the patient had fever, nausea, vomiting, diarrhea, constipation, fatigue for > 1 week? No Does the patient have a decreased appetite? No Does patient want to see a Timers Inspector? No (yes to any of above refer patient to schedulers for dietitian appointment) ) Does patient have any new or increased numbness or tingling of extremities? No Is patient interested in fertility information? No Does patient need any prescription refills? No Does patient have an advanced directive in place? No, Patient referred to [facility] documented in this encounter [facility] 02-28-2024 Note HNO ID: [id number] Author: JR GALLEGO RN Service: Radiology Author [...] 28, 2024 TIME: 2:20 PM PAGER/CONTACT #: [facility] 02-28-2024 History of Present illness Narrative [...] PATIENT PRESENTS WITH AN IMPLANTABLE OR ATTACHED NUT ORCHARDIST: No RADIOLOGY DEPARTMENT: MR; Exam(s) Completed: Head: Routine Brain PERIPHERAL IV DATA: Not applicable SIGNED BY: RACHELLE Garcia February 28, 2024 2:00 PM documented in this encounter [facility] 02-28-2024 Note HNO ID: [id number] Author: YENNIFER NOVA MRI Tech Service: Radiology [...] PATIENT PRESENTS WITH AN IMPLANTABLE OR ATTACHED NUT ORCHARDIST: No RADIOLOGY DEPARTMENT: MR; Exam(s) Completed: Head: Routine Brain PERIPHERAL IV DATA: Not applicable SIGNED BY: Yennifer Nova senior regulatory affairs specialist February 28, 2024 2:00 PM [facility] 02-13-2024 Note HNO ID: [id number] Author: BINDU BURT, PhD Service: ? Author Type: Psychologist Type: Progress Notes Filed: 02/29/2024 16:56 Note Text: [facility] Department of Neurology Section of Neuropsychology Neuropsychological Evaluation Report CONFIDENTIAL Patient: Dior Carvajal Referred by: Mini Whyte Date of : 1965 Date of Evaluation: 02/13/2024 SUMMARY/IMPRESSIONS: The patient is a 59-year-old, White, female, referred for a neuropsychological evaluation by Mini Whyte MD in the [facility] Tumor and Neuro-Oncology Center. 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 Of note, the patient reported [...] astrocytoma s/p right frontal tumor resection at [facility] on 04/27/1992. She is unsure whether she [...] the patient. IADL/ADL: She has resided in [facility], a [facility] facility, since 08/05/2022. Her family visits her frequently and is reportedly involved in her care; however, from her self-reported history it is unclear what she requires assistance with specifically. Finances: She states that she is managing finances independently (i.e., mostl (more content not included)... [facility] 02-10-2024 Note HNO ID: [id number] Author: KYLE LANE APRN.MODEL AND MOLD MAKER Service: ? Author Type: Nurse Practitioner Type: Progress Notes Filed: 02/10/2024 20:28 Note Text: Connected Care Unit Telemedicine Progress Note Patient Name: Dior Carvajal Patient Facility: [facility] Level of Care: Long-term SNF Attending: Macarena Bain M.D. Service Date: 02/10/2024 Chief Complaint: Evaluation regarding recent fall ASSESSMENT AND PLAN I have communicated my name and active licensure. The patient's identity and physical location were verified at the time of this visit. Either the patient or their legal medical customer service representative has been informed of the risks [...] back - Monitor safety awareness Kyle Lane APRN.MODEL AND MOLD MAKER Appointments for Next 60 Days Date Time Provider Location Dept Phone 02/13/2024 12:30 PM BINDU BURT S [facility] [phone] 02/28/2024 11:40 AM MRI 3 RADIO MAIN Q (I-STAT/1.5T/3T) Mn Q [facility] [phone] 02/28/2024 1:30 PM MINI WHYTE Mn Ca [facility] [phone] HPI: Virtual visit for recent fall NAD [...] appropriate parties. Electronically signed by Kyle Lane APRN.MODEL AND MOLD MAKER [facility] 02-10-2024 History of Present illness Narrative Images from the original note were not included. Connected Care Unit Telemedicine Progress Note Patient Name: Dior Carvajal Patient Facility: [facility] Level of Care: Long-term SNF Attending: Macarena Bain M.D. Service Date: 02/10/2024 Chief Complaint: Evaluation regarding recent fall ASSESSMENT AND PLAN I have communicated my name and active licensure. The patient's identity and physical location were verified at the time of this visit. Either the patient or their legal medical customer service representative has been informed of the risks [...] back - Monitor safety awareness Kyle Lane APRN.MODEL AND MOLD MAKER Appointments for Next 60 Days Date Time Provider Location Dept Phone 02/13/2024 12:30 PM CARMELBINDU [facility] [phone] 02/28/2024 11:40 AM MRI 3 RADIO MAIN Q (I-STAT/1.5T/3T) Jaqueline Q [facility] [phone] 02/28/2024 1:30 PM MINI WHYTE Ca [facility] [phone] HPI: Virtual visit for recent fall NAD [...] appropriate parties. Electronically signed by Kyle Lane APRN.MODEL AND MOLD MAKER documented in this encounter [facility] 02-07-2024 History of Present illness Narrative Dior Carvajal : 1965 Fpc: [facility] Fpc[facility]Assisted Living PCP: ODELL Date last seen: 01/01/2024 MODEL AND MOLD MAKER PAST MEDICAL HISTORY Diagnosis Date Abnormal gait [...] Hayder Bone DPM documented in this encounter [facility] 02-07-2024 Instructions Hayder Bone DPM - 02/07/2024 12:26 PM EST Pt not to attempt self care due to high risk. documented in this encounter [facility] 02-06-2024 Telephone encounter Note Contacted [facility] and spoke with Johanny. I let her know dates, times and location for patients MRI and visit scheduled for 02/28/24. Sister was also updated who will meet patient here. Transportation to be arranged by facility Gerda Dee RN, BSN Director Informatics [facility] Brain Tumor & Neuro-Oncology [place] [facility] Work Phone: 02-06-2024 Telephone encounter Note Returned call and provided Katie with appointment dates and times for 02/28/24 Gerda Dee RN, BSN Director Informatics [facility] Brain Tumor & Neuro-Oncology [place] [facility] Work Phone: 02-06-2024 Miscellaneous Notes Returned call and provided Katie with appointment dates and times for 02/28/24 Gerda Dee RN, BSN Director Informatics [facility] Brain Tumor & Neuro-Oncology [place] [facility] Call Caller : Katie/ Contact Reason for Call : Katie says she is returning a missed call from [facility] regarding pt's appt. Patient requesting return call ? Yes documented in this encounter [facility] 02-06-2024 Miscellaneous Notes Contacted [facility] and spoke with Johanny. I let her know dates, times and location for patients MRI and visit scheduled for 02/28/24. Sister was also updated who will meet patient here. Transportation to be arranged by facility Gerda Dee RN, BSN Director Informatics [facility] Tumor & Neuro-Oncology [place] documented in this encounter [facility] 02-06-2024 Telephone encounter Note General Call Caller : Katie/sister Contact Reason for Call : Katie says she is returning a missed call from Marc regarding pt's appt. Patient requesting return call ? Yes [facility] 01-29-2024 Telephone encounter Note Spoke to receptionist scheduler from Facility, she is scheduled & confirmed for all appts. [facility] 01-29-2024 Miscellaneous Notes Spoke to receptionist scheduler from Facility, she is scheduled & confirmed for all appts. Scheduling Request - Established Patient Time Frame: [facility] week of 02/25/24 Orders: MRI brain [...] Diagnosis: cognitive assessment. documented in this encounter [facility] 01-21-2024 Telephone encounter Note Spoke with patient's sister, Katie to let her know that Dr Spears wants Dior to have an MRI in ~ 4 weeks. This will be arranged at [facility] with same day visit (week of 02/24) . A family member needs to be present. At Dior's consultation she came with an aide front facility and no family. Katie said she works in [employer] and can meet Dior at her appointment. Dior and the facility ([facility] [phone]) will need to know the day/time of appointment to make arrangements. Once appointments are scheduled, we will notify them. Dior does not have My Chart Gerda Dee RN, BSN Director Informatics [facility]ard[facility] Brain Tumor & Neuro-Oncology [place] [facility] Work Phone: 01-21-2024 Miscellaneous Notes Spoke with patient's sister, Katie to let her know that Dr Spears wants Dior to have an MRI in ~ 4 weeks. This will be arranged at [facility] with same day visit (week of 02/24) . A family member needs to be present. At Dior's consultation she came with an aide front he facility and no family. Katie said she works in [employer] and can meet Dior at her appointment. Dior and the facility ([facility] [phone]) will need to know the day/time of appointment to make arrangements. Once appointments are scheduled, we will notify them. Dior does not have My Chart Gerda Dee RN, BSN Director Informatics Niesha Grady [facility] Brain Tumor & Neuro-Oncology [place] documented in this encounter [facility] 01-21-2024 Telephone encounter Note Scheduling Request - Established Patient Time Frame: [facility] week of 02/25/24 Orders: MRI brain [...] person Referring: Dr Spears Diagnosis: cognitive assessment. [facility] Work Phone: 01-17-2024 History of Present illness Narrative Images from the original note were not included. [facility] New Patient Consultation Referred by: Leela Escoto, DO [address] [facility] [id number] Diagnosis: Anaplastic astrocytoma The patient is accompanied by a staff at the [employer] facility where she resides, [place]. Subjective History of Present Illness: Mrs. Carvajal, [...] if she had chemotherapy. Patient resides in [facility] Limited records- NO MRI BRAIN IMAGES (last record of MRI brain at [facility] was 05/15/2002) No records related to prior treatment received. Surgery: -R frontal lobe tumor resection at [facility]-04/30/1992 ([id number]) Pathology: Anaplastic astrocytoma Neurosurgeon Unknown Radiation oncologist: Unknown Pertinent History: per recoards -Limited records. NO MRI brain images -L frontal tumor resection done at [facility] 04/30/92 -Pathology- anaplastic astrocytoma January 19, 2024 [...] 1.00 - 4.00 k/uL 1.92 1.95 Abs Cayey <0.87 k/uL 0.44 0.72 Abs Eosin <0.46 [...] & HISTORY: Right craniotomy brain tumor, 04/30/92 [facility] PATH[facility]Y LABOR[facility] Final Diagnosis FINAL DIAGNOSIS: A,B,C&D. Brain tumor: Anaplastic astrocytoma. [facility] Nonchartable [id number] R Signed-Out [facility] LAB[facility] Nonchartable A. FS-BRAIN TUMOR Collected: 05/18/1992 Received: 05/18/1992 B. BRAIN TUMOR Collected: 05/18/1992 Received: 05/18/1992 C. brain tumor Collected: 05/18/1992 Received: 05/18/1992 D. BRAIN TUMOR Collected: 05/18/1992 Received: 05/18/1992 SNOMED: [id number] Imaging: MRI Report No resulted procedures found. [...] see the patient, at least 50% of [id number]-kh-[id number] patient care, completing clinical documentation, obtaining and/or reviewing separately obtained history, performing a medically appropriate examination, counseling and educating the patient/family/caregiver, ordering medications, tests, or procedures, communicating with other HCPs (not separately reported), independently interpreting results (not separately reported), communicating results to the patient/family/caregiver and care coordination (not separately reported). Mini Whyte MD 10:32 AM 01/17/2024 [facility] Leela Escoto DO [address] [place] [id number] documented in this encounter [facility] 01-17-2024 Nurse Note Additional intake questions: Has the patient had fever, nausea, vomiting, diarrhea, constipation, fatigue for > 1 week? Yes, nausea, vomiting, constipation (day of last BM 01/16/24), and diarrhea ( 4 times in last 24 hours) Does the patient have a decreased appetite? No Does patient want to see a Timers Inspector? No (yes to any of above refer patient to schedulers for dietitian appointment) ) Does patient have any new or increased numbness or tingling of extremities? No Is patient interested in fertility information? No Does patient need any prescription refills? No Does patient have an advanced directive in place? No, Patient refused referral to Social Work or Resource Center [facility] 01-17-2024 Nurse Note Additional intake questions: Has the patient had fever, nausea, vomiting, diarrhea, constipation, fatigue for > 1 week? Yes, nausea, vomiting, constipation (day of last BM 01/16/24), and diarrhea ( 4 times in last 24 hours) Does the patient have a decreased appetite? No Does patient want to see a Timers Inspector? No (yes to any of above refer patient to schedulers for dietitian appointment) ) Does patient have any new or increased numbness or tingling of extremities? No Is patient interested in fertility information? No Does patient need any prescription refills? No Does patient have an advanced directive in place? No, Patient refused referral to Social Work or Resource Center documented in this encounter [facility] 01-15-2024 History of Present illness Narrative This note is only to load and organize information prior to patient's visit to [facility]. This includes information gathered from outside records and/or information that has been previously documented in [facility] and will be confirmed with the patient at the time of visit. Patient is a 58 y/o female from [place], [place] Reason for consult: h/o astrocytoma Patient resides in [facility] Limited records- NO MRI BRAIN IMAGES (last record of MRI brain at [facility] was 05/15/2002) No records related to prior treatment received. Surgery: -R frontal lobe tumor resection at [facility]-04/30/1992 ([id number]) Pathology: Anaplastic astrocytoma Neurosurgeon Unknown Radiation oncologist: [...] images -L frontal tumor resection done at [facility] 04/30/92 -Pathology- anaplastic astrocytoma 12/25/2023 CT BRAIN [...] recurrence is seen. Gerda Dee RN, BSN Director Informatics [facility]ies[facility] Mcdow[facility] documented in this encounter [facility] 01-14-2024 History of Present illness Narrative Images from the original note were not included. Connected Care Unit Telemedicine Progress Note Patient Name: Dior Carvajal Patient Facility: [facility] Level of Care: Long-term SNF Attending: Macarena Bain M.D. Service Date: 01/14/2024 Chief Complaint: Evaluation regarding recent fall ASSESSMENT AND PLAN I have communicated my name and active licensure. The patient's identity and physical location were verified at the time of this visit. Either the patient or their legal medical customer service representative has been informed of the risks [...] back - Monitor safety awareness Kyle Lane APRN.MODEL AND MOLD MAKER HPI: Virtual visit for recent fall NAD [...] appropriate parties. Electronically signed by Kyle Lane APRN.MODEL AND MOLD MAKER documented in this encounter [facility] 01-08-2024 Telephone encounter Note Dior had resection and radiation treatment at [facility] - will request pathology and office notes. ___ Patient: Dior Carvajal Address: Dior Carvajal [id number] [place] [address] Per Triage: Dior Carvajal is a 58 year old female: 27 years old - resection and radiation of brain tumor at [facility] prior history/resection information Patient expectations: New Consult [...] with MR brain without and with contrast. Milling Supervisor: [facility] Transcribe Date/Time: Dec 25 2023 1:22P Dictated [...] imaged soft tissues are unremarkable. Umm Nuñez APRN.MODEL AND MOLD MAKER January 08, 2024 [facility] 01-08-2024 Miscellaneous Notes Dior had resection and radiation treatment at [facility] - will request pathology and office notes. ___ Patient: Dior Carvajal Address: Dior Carvajal [id number] [place] [address] Per Triage: Dior Carvajal is a 58 year old female: 27 years old - resection and radiation of brain tumor at [facility] Need prior history/resection information Patient expectations: [...] with MR brain without and with contrast. Milling Supervisor: [facility] Transcribe Date/Time: Dec 25 2023 1:22P [...] January 08, 2024 Images in Epic 1. Geospatial Information Scientist: Who is requesting this appointment?patient and patient's caregiver & receptionist scheduler Nieves [phone] 2. Geospatial Information Scientist: Please indicate the best contact information for our team to reach you with any questions/concerns we may have? 3. Geospatial Information Scientist: What is your diagnosis? Other 4. Geospatial Information Scientist: Have you ever been seen at our center before? If yes, by whom? N/A (If the patient has been seen in our department before, please bypass the triage process and send a message to the field care advocate of the provider that the patient saw in the past. (Patient being referred to us with the same dx)). 5. Geospatial Information Scientist: Is there a specific doctor you were referred to? N/A 6. Geospatial Information Scientist: What facility and/or hospital have you been seen at? [facility] Name of facility/name of provider where patient was treated. N/a 7. Geospatial Information Scientist: For this appointment, we will need to request a few records from you. This will help our triage team be able to select the best provider for your treatment. a. Please provide: Most recent MRI- spine/Brain (Geospatial Information Scientist will check CareEverywhere for records). 8. Geospatial Information Scientist: Where was your last imaging completed:December 2023(Ideally should be completed within the last six months). 9. Geospatial Information Scientist: Have you had any surgeries pertaining to this appointment? No If yes, please obtain pathology report. 10. Geospatial Information Scientist: Please allow up to 48-72 hours for our triage team to review your records. Once they reviewed your records, we will be in contact with you. a. Was the patient made aware of the turnaround time? Yes 11. Geospatial Information Scientist: Our department offers virtual visits depending on the provider you are recommended to see and the state that you live in. If able to schedule, would you like a virtual visit?Yes a. If answered yes: Does the patient have MyChart access: No If not, then receptionist scheduler will walk patient through getting access to MyChart. b. If no, Are you interested in In Person (If not, please indicate patient refused to schedule at this time and the reason to not proceed with scheduling). 12. Sent to triage pool. (Waiting approval). documented in this encounter [facility] 01-08-2024 Telephone encounter Note Images in Epic 1. Geospatial Information Scientist: Who is requesting this appointment?patient and patient's caregiver & receptionist scheduler Nieves [phone] 2. Geospatial Information Scientist: Please indicate the best contact information for our team to reach you with any questions/concerns we may have? 3. Geospatial Information Scientist: What is your diagnosis? Other 4. Geospatial Information Scientist: Have you ever been seen at our center before? If yes, by whom? N/A (If the patient has been seen in our department before, please bypass the triage process and send a message to the field care advocate of the provider that the patient saw in the past. (Patient being referred to us with the same dx)). 5. Geospatial Information Scientist: Is there a specific doctor you were referred to? N/A 6. Geospatial Information Scientist: What facility and/or hospital have you been seen at? [facility] Name of facility/name of provider where patient was treated. N/a 7. Geospatial Information Scientist: For this appointment, we will need to request a few records from you. This will help our triage team be able to select the best provider for your treatment. a. Please provide: Most recent MRI- spine/Brain (Geospatial Information Scientist will check CareEverywhere for records). 8. Geospatial Information Scientist: Where was your last imaging completed:December 2023(Ideally should be completed within the last six months). 9. Geospatial Information Scientist: Have you had any surgeries pertaining to this appointment? No If yes, please obtain pathology report. 10. Geospatial Information Scientist: Please allow up to 48-72 hours for our triage team to review your records. Once they reviewed your records, we will be in contact with you. a. Was the patient made aware of the turnaround time? Yes 11. Geospatial Information Scientist: Our department offers virtual visits depending on the provider you are recommended to see and the state that you live in. If able to schedule, would you like a virtual visit?Yes a. If answered yes: Does the patient have MyChart access: No If not, then receptionist scheduler will walk patient through getting access to [facility]. b. If no, Are you interested in In Person (If not, please indicate patient refused to schedule at this time and the reason to not proceed with scheduling). 12. Sent to triage pool. (Waiting approval). [facility] 01-01-2024 History of Present illness Narrative Images from the original note were not included. Connected Care Unit Progress Note Facility: [facility] Skilled Care Level of Care: Long-term [...] Unchanged. Medications: see current medication list in [facility] chart, reviewed (Medications in [facility] may not accurate, please see update in [facility] chart) Objective Data: Vital signs reviewed [...] 2024 9:34 AM documented in this encounter [facility] 01-01-2024 History of Present illness Narrative [facility] NOTE NAME: DIOR [facility]VA[facility]AL [facility] NO.: [id number] DATE OF SERVICE: 01/01/2024 ATTENDING PHYSICIAN: Macarena Bain MD [facility] Followup multiple medical chronic issues She [...] DICTATED BY: Macarena Bain MD IAE/AQT JOB# [id number] [facility] documented in this encounter [facility] 12-25-2023 History of Present illness Narrative [...] PATIENT PRESENTS WITH AN IMPLANTABLE OR ATTACHED NUT ORCHARDIST: No ALLERGIES: Reviewed and unchanged CONTRAST ALLERGY: [...] TIME: 12:09 PM documented in this encounter [facility] 12-24-2023 Telephone encounter Note Pt lives at a [facility]. Chart states that she is allergic to contrast. Facility called and advised to give 50 mg of prednisone at 13, 7 and 1 hour before exam and 50 mg of benadryl 1 hour before scheduled test.RN state that she will facilitate these orders for [facility] policy. [facility] 12-24-2023 Miscellaneous Notes Pt lives at a [facility]. Chart states that she is allergic to contrast. Facility called and advised to give 50 mg of prednisone at 13, 7 and 1 hour before exam and 50 mg of benadryl 1 hour before scheduled test.RN state that she will facilitate these orders for [facility] policy. documented in this encounter [facility] 12-10-2023 History of Present illness Narrative Dior Carvajal : 1965 Fpc: [facility]- Fpc/Assisted Living PCP: odell Date last seen: christiano [...] Hayder Bone DPM documented in this encounter [facility] 12-10-2023 Instructions Hayder Bone DPM - 12/10/2023 1:28 PM EDT Pt not to attempt self care due to high risk. documented in this encounter [facility] 12-06-2023 History of Present illness Narrative Images from the original note were not included. Connected Care Unit Progress Note Facility: [facility] Skilled Care Level of Care: Long-term [...] Unchanged. Medications: see current medication list in [facility] chart, reviewed (Medications in EPIC may not accurate, please see update in [facility] chart) Objective Data: Vital signs reviewed [...] 2023 8:55 AM documented in this encounter [facility] 11-29-2023 History of Present illness Narrative Images from the original note were not included. Connected Care Unit Progress Note Facility: [facility] Skilled Care Level of Care: Long-term [...] Unchanged. Medications: see current medication list in [facility] chart, reviewed (Medications in EPIC may not accurate, please see update in [facility] chart) Objective Data: Vital signs reviewed [...] 2023 9:05 AM documented in this encounter [facility] 11-06-2023 History of Present illness Narrative Images from the original note were not included. Connected Care Unit Progress Note Facility: [facility] Skilled Care Level of Care: Long-term [...] Unchanged. Medications: see current medication list in [facility] chart, reviewed (Medications in [facility] may not accurate, please see update in [facility] chart) Objective Data: Vital signs reviewed [...] 2023 10:08 AM documented in this encounter [facility] 11-06-2023 History of Present illness Narrative [facility] NOTE NAME: DIOR [facility] NO.: [id number] DATE OF SERVICE: 11/06/2023 ATTENDING PHYSICIAN: Macarena Bain MD [facility] Followup of multiple medical chronic issues. [...] DICTATED BY: Macarena Bain MD IAE/AQT JOB# [id number] [facility] documented in this encounter [facility] 10-11-2023 History of Present illness Narrative Images from the original note were not included. Connected Care Unit Progress Note Facility: [facility] Skilled Care Level of Care: Long-term [...] Unchanged. Medications: see current medication list in [facility] chart, reviewed (Medications in EPIC may not accurate, please see update in [facility] chart) Objective Data: Wt 177 lbs [...] 2023 8:59 AM documented in this encounter [facility] 10-07-2023 History of Present illness Narrative Dior Carvajal : 1965 Fpc: [facility]- Fpc/Assisted Living PCP: dr. bain Date last seen: [...] Hayder Bone DPM documented in this encounter [facility] 10-07-2023 Instructions Hayder Bone DPM - 10/07/2023 7:19 AM EDT Pt not to attempt self care due to high risk. documented in this encounter [facility] 09-11-2023 History of Present illness Narrative [facility] NOTE NAME: DIOR [facility]VAJAL [facility] NO.: [id number] DATE OF SERVICE: 09/11/2023 ATTENDING PHYSICIAN: Macarena Bain MD [facility] Followup of multiple medical chronic issues [...] therapy. DICTATED BY: MD JENELLE SingletonE/ASHLYNT JOB# [id number] [facility] documented in this encounter [facility] 08-28-2023 History of Present illness Narrative Images from the original note were not included. Connected Care Unit Progress Note Facility: [facility] Skilled Care Level of Care: Long-term [...] Unchanged. Medications: see current medication list in [facility] chart, reviewed (Medications in EPIC may not accurate, please see update in [facility] chart) Objective Data: Vital signs reviewed [...] 2023 9:22 AM documented in this encounter [facility] 08-16-2023 History of Present illness Narrative Images from the original note were not included. Connected Care Unit Progress Note Facility: [facility] Skilled Care Level of Care: Long-term [...] Unchanged. Medications: see current medication list in [facility] chart, reviewed (Medications in EPIC may not accurate, please see update in [facility] chart) Objective Data: Vital signs reviewed [...] 2023 8:39 AM documented in this encounter [facility] 07-29-2023 History of Present illness Narrative Dior Carvajal : 1965 Fpc: [facility]- Fpc/Assisted Living PCP: DR. BAIN Date last seen: [...] Hayder Bone DPM documented in this encounter [facility] 07-29-2023 Instructions Hayder Bone DPM - 07/29/2023 1:46 PM EDT Pt not to attempt self care due to high risk. documented in this encounter [facility] 06-27-2023 History of Present illness Narrative [facility] NOTE NAME: DIOR [facility]JAL [facility] NO.: [id number] DATE OF SERVICE: 06/27/2023 ATTENDING PHYSICIAN: Macarena Bain MD [facility] Followup of multiple medical chronic issues [...] therapy. DICTATED BY: MD PRASHANT Singleton/ASHLYNT JOB# [id number] [facility] documented in this encounter [facility] 06-19-2023 History of Present illness Narrative Images from the original note were not included. Connected Care Unit Progress Note Facility: [facility] Skilled Care Level of Care: Long-term [...] Unchanged. Medications: see current medication list in [facility] chart, reviewed (Medications in [facility] may not accurate, please see update in [facility] chart) Objective Data: Wt 176 lbs [...] Controlled - Continue current medications Zora Flores APRN.MODEL AND MOLD MAKER We will continue to monitor for overall comfort, function and safety. Call for changes in condition. Electronically signed by Zora Flores APRN.CNP June 19, 2023 9:50 AM documented in this encounter [facility] 05-25-2023 History of Present illness Narrative Dior Carvajal : 1965 Fpc: [facility]- Fpc/Assisted Living PCP: DR. BAIN Date last seen: [...] Hayder Bone DPM documented in this encounter [facility] 05-25-2023 Instructions Hayder Bone DPM - 05/25/2023 12:24 PM EST Pt not to attempt self care due to high risk. documented in this encounter [facility] 05-03-2023 History of Present illness Narrative [facility] NOTE NAME: RAMEZ CARVAJAL NO.: [id number] DATE OF SERVICE: 05/03/2023 [facility] DATE OF : 1965 Follow up [...] therapy. DICTATED BY: MD PRASHANT Price/Genie JOB# [id number] cc:[facility] documented in this encounter [facility] 02-28-2023 History of Present illness Narrative [facility] NOTE NAME: RAMEZ CARVAJAL NO.: [id number] DATE OF SERVICE: 02/28/2023 [facility] DATE OF : 1965 Follow up [...] therapy. DICTATED BY: MD PRASHANT Price/Genie JOB# [id number] cc:[facility] documented in this encounter [facility] 02-13-2023 History of Present illness Narrative Images from the original note were not included. Connected Care Unit Progress Note Facility: [facility] Skilled Care Level of Care: Long-term [...] Unchanged. Medications: see current medication list in [facility] chart, reviewed (Medications in [facility] may not accurate, please see update in [facility] chart) Objective Data: Wt 178 lbs [...] 2023 9:15 AM documented in this encounter [facility] 01-02-2023 History of Present illness Narrative [facility] NOTE NAME: RAMEZ CARVAJAL NO.: [id number] DATE OF SERVICE: 01/02/2023 [facility] DATE OF : 1965 Followup of [...] therapy. DICTATED BY: MD PRASHANT Price/Genie JOB# [id number] cc:[facility] documented in this encounter [facility] 12-12-2022 History of Present illness Narrative Images from the original note were not included. Connected Care Unit Progress Note Facility: [facility] Skilled Care Level of Care: Long-term [...] Unchanged. Medications: see current medication list in [facility] chart, reviewed (Medications in EPIC may not accurate, please see update in [facility] chart) Objective Data: Vital signs reviewed [...] Controlled - Continue current medications Zora Flores APRN.MODEL AND MOLD MAKER We will continue to monitor for overall comfort, function and safety. Call for changes in condition. Electronically signed by Zora Flores APRN.CHRISTIANO December 12, 2022 10:11 AM documented in this encounter [facility] 11-03-2022 History of Present illness Narrative Dior Carvajal : 1965 Fpc: [facility]- Fpc/Assisted Living PCP: ODELL Date last seen: CHRISTIANO [...] Hayder Bone DPM documented in this encounter [facility] 11-03-2022 Instructions Hayder Bone DPM - 11/03/2022 9:46 AM EDT Pt not to attempt self care due to high risk. documented in this encounter [facility] 09-12-2022 History of Present illness Narrative Images from the original note were not included. Connected Care Unit Progress Note Facility: [facility] Skilled Care Level of Care: Skilled [...] Unchanged. Medications: see current medication list in [facility] chart, reviewed (Medications in EPIC may not accurate, please see update in [facility] chart) Objective Data: Vital signs reviewed [...] 2022 9:25 AM documented in this encounter [facility] 09-07-2022 History of Present illness Narrative Opened in error documented in this encounter [facility] 09-07-2022 History of Present illness Narrative Images from the original note were not included. Connected Care Unit Progress Note Facility: [facility] Skilled Care Level of Care: Skilled [...] Unchanged. Medications: see current medication list in [facility] chart, reviewed (Medications in EPIC may not accurate, please see update in [facility] chart) Objective Data: Vital signs reviewed [...] 2022 9:25 AM documented in this encounter [facility] 08-29-2022 History of Present illness Narrative Images from the original note were not included. Connected Care Unit Progress Note Facility: [facility] Skilled Care Level of Care: Skilled [...] Unchanged. Medications: see current medication list in [facility] chart, reviewed (Medications in [facility] may not accurate, please see update in [facility] chart) Objective Data: Vital signs reviewed [...] 2022 9:35 AM documented in this encounter [facility] 08-25-2022 History of Present illness Narrative Images from the original note were not included. Connected Care Unit Progress Note Facility: [facility] Skilled Care Level of Care: Skilled [...] Unchanged. Medications: see current medication list in [facility] chart, reviewed (Medications in [facility] may not accurate, please see update in [facility] chart) Objective Data: Vital signs reviewed [...] ICD10: M54.2, G89.29 Tramadol bid Zora Flores APRN.MODEL AND MOLD MAKER We will continue to monitor for overall comfort, function and safety. Call for changes in condition. Electronically signed by Zora Flores APRN.CHRISTIANO August 25, 2022 9:04 AM documented in this encounter [facility] 08-24-2022 History of Present illness Narrative Dior Carvajal : 1965 Fpc: [facility]- Fpc/Assisted Living PCP: ODELL Date last seen: 08/15 [...] Hayder Bone DPM documented in this encounter [facility] 08-24-2022 Instructions Hayder Bone DPM - 08/24/2022 7:04 PM EDT Pt not to attempt self care due to high risk. documented in this encounter [facility] 08-23-2022 History of Present illness Narrative Images from the original note were not included. Connected Care Unit Progress Note Facility: [facility] Skilled Care Level of Care: Skilled [...] Unchanged. Medications: see current medication list in [facility] chart, reviewed (Medications in EP[facility] may not accurate, please see update in [facility] chart) Objective Data: Wt 179lbs Vital [...] ICD10: M54.2, G89.29 Tramadol bid Zora Flores APRN.MODEL AND MOLD MAKER We will continue to monitor for overall comfort, function and safety. Call for changes in condition. Electronically signed by Zora Flores APRN.CNP August 23, 2022 9:34 AM documented in this encounter [facility] 08-08-2022 History of Present illness Narrative Images from the original note were not included. Connected Care Unit Progress Note Facility: [facility] Skilled Care Level of Care: Skilled [...] Patient seen today for fu here for jail therapy having difficulty caring for self at [...] Unchanged. Medications: see current medication list in [facility] chart, reviewed (Medications in [facility] may not accurate, please see update in [facility] chart) Objective Data: Vital signs reviewed [...] 2022 9:17 AM documented in this encounter [facility] 08-07-2022 Miscellaneous Notes Order signed by Dr. Escoto and mailed. Adalberto Woods MA Please sign order. Placed in green folder. Riley Palmer MA Alma Escoto DO Patient left message stating her handicap parking placard is going to be expiring and she would like an order for a new one mailed to [address] [place] [address]. Please advise. Adalberto Woods MA documented in this encounter [facility] 08-07-2022 History of Present illness Narrative [facility] NOTE NAME: RAMEZ CARVAJAL NO.: [id number] DATE OF SERVICE: 08/07/2022 [facility] DATE OF : 1965 New patient [...] care. DICTATED BY: MD PRASHANT Price/Genie JOB# [id number] cc:[facility] documented in this encounter [facility] 07-31-2022 Miscellaneous Notes Pharmacy requesting refills as follows: Last Office Visit 05/25/22. Last Refill 06/30/22. Requested Prescriptions Pending Prescriptions Disp Refills traMADol (ULTRAM) 50 mg tablet 60 tablet 0 Sig: Take 1 tablet by mouth twice daily for 30 days. Please review and advise. Xochitl Torres MA documented in this encounter [facility] 07-19-2022 Miscellaneous Notes Message left on vm. Patient needs apt. To get into long care facitly . Please contact Ktaie at [phone] to schedule apt. Thanks. Riley Palmer MA documented in this encounter [facility] 07-13-2022 Miscellaneous Notes Patient is informed Xochitl Torrse MA Pt due for blood work - order attached .Geoff Escoto DO Patient requesting refills as follows: Last Office Visit 05/25/22. Last Refill 01/11/22. Requested Prescriptions Pending Prescriptions Disp Refills atorvastatin (LIPITOR) 20 mg tablet 90 tablet 1 Sig: Take 1 tablet by mouth once daily. Please review and advise. Xochitl Torres MA documented in this encounter [facility] 06-30-2022 Miscellaneous Notes Patient requesting refills as follows: Last Office Visit 05/25/22. Last Refill 05/31/22. Requested Prescriptions Pending Prescriptions Disp Refills traMADol (ULTRAM) 50 mg tablet 60 tablet 0 Sig: Take 1 tablet by mouth twice daily for 30 days. Please review and advise. Xochitl Torres MA documented in this encounter [facility] 05-31-2022 Miscellaneous Notes Patient requesting refills as follows: Last Office Visit 05/25/22. Last Refill 05/19/22. Requested Prescriptions Pending Prescriptions Disp Refills traMADol (ULTRAM) 50 mg tablet 60 tablet 0 Sig: Take 1 tablet by mouth twice daily for 30 days. Please review and advise. Xochitl Torres MA documented in this encounter [facility] 05-25-2022 Note HNO ID: [id number] Author: Leela Escoto, DO Service: ? Author [...] pt's father cannot continue to go to [facility] weekly and cannot go to another [...] will be wors (more content not included)... [facility] 05-25-2022 Miscellaneous Notes Left a message for the pharmacy to call back and let us know. Xochitl Torres MA ----- Message from Leela Escoto DO sent at 05/25/2022 11:40 AM EST ----- Please call [facility] pharmacy and find out when they will be getting tramadol back Leela Escoto, documented in this encounter [facility] 05-25-2022 Nurse Note Pt. Given covid booster with no complaints. Riley Palmer MA documented in this encounter [facility] 05-25-2022 History of Present illness Narrative [...] pt's father cannot continue to go to [facility] weekly and cannot go to another [...] Leela Escoto DO documented in this encounter [facility] 05-22-2022 Miscellaneous Notes patient phones requesting refills as follows: Last seen 02/24/22 . Last refill 11/24/21 . Requested Prescriptions Pending Prescriptions Disp Refills omeprazole (PRILOSEC) 40 mg capsule 90 capsule 1 Sig: Take 1 capsule by mouth once daily. Please review and advise. Adalberto Woods MA documented in this encounter [facility] 05-19-2022 Miscellaneous Notes patient phones requesting refills as follows: Last seen 02/24/22 . Last refill 04/21/22 . Requested Prescriptions Pending Prescriptions Disp Refills traMADol (ULTRAM) 50 mg tablet 60 tablet 0 Sig: Take 1 tablet by mouth twice daily for 30 days. Please review and advise. Adalberto Woods MA documented in this encounter [facility] 04-21-2022 Miscellaneous Notes Patient requesting refills: Last office visit 02/24/2022. Last refill 03/14/2022. Nov 05/25/2022 Requested Prescriptions Pending Prescriptions Disp Refills traMADol (ULTRAM) 50 mg tablet 60 tablet 0 Sig: Take 1 tablet by mouth twice daily for 30 days. Please review and advise. Riley Palmer MA documented in this encounter [facility] 04-12-2022 History of Present illness Narrative [...] follow up in 6 months Elise Heck APRN.MODEL AND MOLD MAKER documented in this encounter [facility] 04-12-2022 Nurse Note Bladder scan obtained 87 ml of urine documented in this encounter [facility] 03-29-2022 History of Present illness Narrative [...] Elise Heck APRN.CNP documented in this encounter [facility] 03-24-2022 Miscellaneous Notes Patient notified of results, verbalizes understanding of instructions. She has an appt 03/29/2022 in [place] with Elise Heck to discuss her inability [...] BELTRE ----- Message ----- From: Chel Matthews [facility] Sent: 03/23/2022 11:08 AM EST To: Kelvin Nolasco PA-C Please review final results for pt seen at [facility]. Hull placed. Pt was prescribed nitrofurantoin at discharge. Spoke with pt regarding current symptoms. Pt states she feels better. Has appointment with you on 03/31/22. Thank you documented in this encounter [facility] 03-23-2022 Miscellaneous Notes Dior Cee RNentry manager for [facility] calling and patient was to get ER follow up appt in 3 days from [place]. Hull cath in place and taking antibiotics. No availability, and she had one booked in [place] next week on Sunday, but offered Elise Heck on Sunday in [place] and she took the appt. Patient aware and will be here. documented in this encounter [facility] 03-22-2022 Note Patient Outreach (AG FAMPLE) DIOR CARVAJAL ([id number]) 1965 F Date Time Provider Department 03/22/22 RILEY PALMER During your visit today, we recorded the following information about you: Riley Palmer MA 03/22/2022 9:16 AM Signed ED Follow Up: Patient discharged from [facility] ED on 03/20/2022. 1. How are [...] you able to contact the office or monument installer provider prior to your ED visit? Not [...] Unknown Date Reviewed: 03/20/2022 Reviewed by: Pau Maddy, RN - Fully Assessed Reason for Visit: [...] Encounter Status:Closed by RILEY PALMER on 03/22/22 [facility] 03-22-2022 Note HNO ID: [id number] Author: Riley Palmer MA Service: ? Author Type: Tapping Machine Operator Automatic Type: Progress Notes Filed: 03/22/2022 9:16 AM Note Text: ED Follow Up: Patient discharged from [facility] ED on 03/20/2022. 1. How are [...] you able to contact the office or monument installer provider prior to your ED visit? Not applicable 5. Is there anything else I can do for you today? Not applicable Tried contacting patient several times the mail box is full and cannot accept any messages at this time. Riley Palmer MA [facility] 03-22-2022 History of Present illness Narrative ED Follow Up: Patient discharged from [facility] ED on 03/20/2022. 1. How are [...] you able to contact the office or monument installer provider prior to your ED visit? Not applicable 5. Is there anything else I can do for you today? Not applicable Tried contacting patient several times the mail box is full and cannot accept any messages at this time. Riley Palmer MA documented in this encounter [facility] 03-14-2022 Miscellaneous Notes Patient requesting refills as follows: Last Office Visit 12/02/21. Last Refill 02/14/22. Requested Prescriptions Pending Prescriptions Disp Refills traMADol (ULTRAM) 50 mg tablet 60 tablet 0 Sig: Take 1 tablet by mouth twice daily for 30 days. Please review and advise. Xochitl Torres MA documented in this encounter [facility] 02-24-2022 Note HNO ID: [id number] Author: Leela Escoto, DO Service: ? Author [...] rash. Nails: There (more content not included)... [facility] 02-24-2022 History of Present illness Narrative [...] because of the chemicals in tobacco. Leela sEcoto DO PDMP website checked and validated. All prescriptions have been APPROPRIATELY filled. No suspicious activity was identified. 02/24/2022 by Leela Escoto DO documented in this encounter [facility] 02-14-2022 Miscellaneous Notes Patient requesting refills [...] Xochitl Torres MA documented in this encounter [facility] 01-11-2022 Miscellaneous Notes Pt. requesting refills: [...] Riley Palmer MA documented in this encounter [facility] 12-29-2021 Miscellaneous Notes patient phones requesting refills as follows: Last seen 12/02/21 . Last refill 09/29/21 . Requested Prescriptions Pending Prescriptions Disp Refills mirabegron (MYRBETRIQ) 25 mg Tb24 90 tablet 1 Sig: Take 1 tablet by mouth once daily. Please review and advise. Adalberto Woods MA documented in this encounter [facility] 12-14-2021 Miscellaneous Notes Pt. requesting refills: Last office visit 12/02/21. Last refill 11/14/2021 nov 02/24/22 Requested Prescriptions Pending Prescriptions Disp Refills traMADol (ULTRAM) 50 mg tablet 60 tablet 0 Sig: Take 1 tablet by mouth twice daily for 30 days. Please review and advise. Riley Palmer MA documented in this encounter [facility] 12-02-2021 Note HNO ID: [id number] Author: Leela Escoto, DO Service: ? Author Type: Physician Type: Progress Notes Filed: 12/17/2021 8:31 PM Note Text: SUBJECTIVE: 56 year old female for annual routine checkup. I have fully reviewed the past medical, surgical, social and family history and updated the Histories section of [facility]. Pt has history of chronic arthritis She [...] Musculoskeletal: No join (more content not included)... [facility] 11-24-2021 Miscellaneous Notes patient phones requesting refills as follows: Last seen 08/26/21 . Last refill 05/10/21 . Requested Prescriptions Pending Prescriptions Disp Refills omeprazole (PRILOSEC) 40 mg capsule 90 capsule 1 Sig: Take 1 capsule by mouth once daily. Please review and advise. Adalberto Woods MA documented in this encounter [facility] 11-11-2021 Miscellaneous Notes patient phones requesting refills as follows: Last seen 09/22/21 . Last refill 10/11/21 . Requested Prescriptions Pending Prescriptions Disp Refills traMADol (ULTRAM) 50 mg tablet 60 tablet 0 Sig: Take 1 tablet by mouth twice daily for 30 days. Please review and advise. Adalberto Woods MA documented in this encounter [facility] 10-11-2021 Miscellaneous Notes patient phones requesting refills as follows: Last seen 08/26/21 . Last refill 09/14/21 . Pending Prescriptions Disp Refills TRAMADOL 50 MG TABLET 60 tablet 0 Sig: Take 1 tablet by mouth twice daily for 30 days. ANNA Class: C-IV KEVON: No Please review and advise. Adalberto Woods MA documented in this encounter [facility] 09-29-2021 Miscellaneous Notes Last OV 08/26/21 Apt 12/02/21 Patient phones requesting refills as follows: Pending Prescriptions Disp Refills MIRABEGRON ER 25 MG TABLET,EXTENDED RELEASE 24 HR 90 tablet 1 Sig: Take 1 tablet by mouth once daily. KEVON: No Please review and advise. Carmelita Hummel MA documented in this encounter [facility] 09-27-2021 Miscellaneous Notes Pharmacy requesting refills as follows: Last Office Visit 08/26/21 nov 12/02/21. Last Refill 04/08/21. Pending Prescriptions Disp Refills ATORVASTATIN 20 MG TABLET 90 tablet 1 Sig: Take 1 tablet by mouth once daily. KEVON: No Please review and advise. Xochitl Torres MA documented in this encounter [facility] 09-14-2021 Miscellaneous Notes Patient requesting refills: Last office visit 08/26/2021. Last refill 08/08/2021 nov 12/02/2021 Pending Prescriptions Disp Refills TRAMADOL 50 MG TABLET 60 tablet 0 Sig: Take 1 tablet by mouth twice daily for 30 days. ANNA Class: C-IV KEVON: No Please review and advise. Riley Palmer MA documented in this encounter [facility] 08-08-2021 Miscellaneous Notes Patient requesting refills: Last office visit 05/26/2021 Last refill 07/11/2021 Nov 08/26/2021 Pending Prescriptions Disp Refills TRAMADOL 50 MG TABLET 60 tablet 0 Sig: Take 1 tablet by mouth twice daily for 30 days. ANNA Class: C-IV KEVON: No Please review and advise. Riley Palmer MA documented in this encounter [facility] 07-11-2021 Miscellaneous Notes Last OV 05/26/21 Apt 08/26/21 UDS 11/16/20 Pharmacy calls in requesting the following refill(s): Pending Prescriptions Disp Refills TRAMADOL 50 MG TABLET 60 tablet 0 Sig: Take 1 tablet by mouth twice daily for 30 days. ANNA Class: C-IV KEVON: No Carmelita Hummel MA documented in this encounter [facility] 06-27-2021 Miscellaneous Notes Last OV 05/26/21 Apt 08/26/21 Labs 06/23/21 Patient phones requesting refills as follows: Pending Prescriptions Disp Refills MIRABEGRON ER 25 MG TABLET,EXTENDED RELEASE 24 HR 90 tablet 1 Sig: Take 1 tablet by mouth once daily. KEVON: No Please review and advise. Carmelita Hummel MA documented in this encounter [facility] 06-23-2021 Miscellaneous Notes Patient informed. Xochitl Torres MA ----- Message from Orin Smith MD sent at 06/23/2021 2:04 PM EDT ----- Patient's triglycerides are slightly elevated. Continue to monitor diet. Remaining cholesterol and other labs are fairly unremarkable. [facility] Diagnosis Overactive bladder Hypertonicity of bladder [facility] Diagnosis Osteoarthritis of multiple joints, unspecified osteoarthritis type Chronic neck pain Cervicalgia [facility] Diagnosis Osteoarthritis of multiple joints, unspecified osteoarthritis type Chronic [facility] pain [facility]icalgia [facility] Osteoarthritis of multiple joints, unspecified osteoarthritis type Chronic neck pain Cervicalgia [facility] Diagnosis Pure hypercholesterolemia [facility] Diagnosis Osteoarthritis of multiple joints, unspecified osteoarthritis type Chronic neck pain Cervicalgia [facility] Diagnosis Osteoarthritis of multiple joints, unspecified osteoarthritis type Chronic neck pain Cervicalgia [facility] Diagnosis Overactive bladder Hypertonicity of bladder [facility] Diagnosis Osteoarthritis of multiple joints, unspecified osteoarthritis type Chronic neck pain Cervicalgia Pure hypercholesterolemia [facility] Diagnosis Osteoarthritis of multiple joints, unspecified osteoarthritis type Chronic neck pain Cervicalgia Essential hypertension Unspecified essential hypertension [facility] Diagnosis Chronic cervical pain- Primary Cervicalgia Chronic abdominal pain Abdominal pain, unspecified site Smoker Tobacco use disorder [facility] Diagnosis Osteoarthritis of multiple joints, unspecified osteoarthritis type Chronic neck pain Cervicalgia [facility] Diagnosis Urine retention- Primary Retention of urine, unspecified Acute cystitis without hematuria Acute cystitis Urge incontinence [facility] Diagnosis Overactive bladder- Primary Hypertonicity of bladder Urine retention Retention of urine, unspecified Frequent UTI Urinary tract infection, site not specified Atrophic vaginitis Postmenopausal atrophic vaginitis [facility] Diagnosis Osteoarthritis of multiple joints, unspecified osteoarthritis type Chronic neck pain Cervicalgia [facility] Heartburn [facility] Diagnosis Essential hypertension- Primary Unspecified essential hypertension Chronic cervical pain Cervicalgia Grief Adjustment disorder with depressed mood Smoker Tobacco use disorder Encounter for immunization Need for other specified prophylactic vaccination against single bacterial disease documented in this encounter [facility] note* Diagnosis Osteoarthritis of multiple joints, unspecified osteoarthritis type Chronic neck pain Cervicalgia documented in this encounter [facility] note* Diagnosis Osteoarthritis of multiple joints, unspecified osteoarthritis type Chronic neck pain Cervicalgia documented in this encounter [facility] note* Diagnosis Pure hypercholesterolemia documented in this encounter [facility] note* Diagnosis Primary osteoarthritis involving multiple joints- Primary documented in this encounter [facility] note* Diagnosis Essential hypertension- Primary Unspecified essential hypertension Abnormal gait Abnormality of gait Chronic cervical pain Cervicalgia documented in this encounter [facility] note* Diagnosis Pain due to onychomycosis of toenail of right foot- Primary Pain due to onychomycosis of toenail of left foot Aspirin long-term use Encounter for long-term (current) use of aspirin documented in this encounter [facility] note* Diagnosis Essential hypertension- Primary Unspecified essential hypertension Abnormal gait Abnormality of gait Chronic cervical pain Cervicalgia documented in this encounter [facility] note* Diagnosis Osteoarthritis of multiple joints, unspecified osteoarthritis type Chronic neck pain Cervicalgia documented in this encounter [facility] note* Diagnosis Osteoarthritis of multiple joints, unspecified osteoarthritis type- Primary Essential hypertension Unspecified essential hypertension Chronic neck pain Cervicalgia Abnormal gait Abnormality of gait documented in this encounter [facility] note* Diagnosis Osteoarthritis of multiple joints, unspecified osteoarthritis type- Primary Essential hypertension Unspecified essential hypertension Chronic neck pain Cervicalgia Abnormal gait Abnormality of gait documented in this encounter [facility] note* Diagnosis OPENED IN ERROR- Primary To allow closing an encounter opened in error (used in SmartSet) documented in this encounter [facility] note* Diagnosis Osteoarthritis of multiple joints, unspecified osteoarthritis type Chronic neck pain Cervicalgia documented in this encounter [facility] note* Diagnosis Nail dystrophy- Primary Other specified disease of nail Aspirin long-term use Encounter for long-term (current) use of aspirin documented in this encounter [facility] note* Diagnosis Osteoarthritis of multiple joints, unspecified osteoarthritis type- Primary Chronic neck pain Cervicalgia Essential hypertension Unspecified essential hypertension documented in this encounter [facility] note* Diagnosis Nail dystrophy- Primary Other specified disease of nail Aspirin long-term use Encounter for long-term (current) use of aspirin [facility] Diagnosis Osteoarthritis of multiple joints, unspecified osteoarthritis type- Primary Chronic neck pain Cervicalgia Essential hypertension Unspecified essential hypertension [facility] Diagnosis Osteoarthritis of multiple joints, unspecified osteoarthritis type Chronic neck pain Cervicalgia [facility] Diagnosis Osteoarthritis of multiple joints, unspecified osteoarthritis type- Primary Left hip pain Pain in joint, pelvic region and thigh [facility] Diagnosis Nail dystrophy- Primary Other specified disease of nail Aspirin long-term use Encounter for long-term (current) use of aspirin [facility] Diagnosis Osteoarthritis of multiple joints, unspecified osteoarthritis type- Primary Left hip pain Pain in joint, pelvic region and thigh Chronic neck pain Cervicalgia Essential hypertension Unspecified essential hypertension [facility] Diagnosis Leukocytosis, unspecified type- Primary Confusion Unspecified psychosis [facility] Diagnosis Foul smelling urine- Primary Other nonspecific finding on examination of urine [facility] Diagnosis Osteoarthritis of multiple joints, unspecified osteoarthritis type- Primary Essential hypertension Unspecified essential hypertension Chronic cervical pain Cervicalgia [facility] Diagnosis Foul smelling urine- Primary Other nonspecific finding on examination of urine Recurrent UTI Urinary tract infection, site not specified [facility] Diagnosis Brain lesion [G93.9]- Primary Other conditions of brain [facility] Diagnosis Fall, initial encounter- Primary [facility] 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, unspecified site Hemiparesis, unspecified hemiparesis etiology, unspecified laterality (HCC) Mild cognitive impairment Mild cognitive impairment, so stated Cognitive decline Unspecified persistent mental disorders due to conditions classified elsewhere [facility] Diagnosis Astrocytoma (HCC)- Primary Malignant neoplasm of brain, unspecified site [facility] Diagnosis Chronic cervical pain- Primary Cervicalgia [facility] Diagnosis Nail dystrophy- Primary Other specified disease of nail Aspirin long-term use Encounter for long-term (current) use of aspirin [facility] Diagnosis Fall, initial encounter- Primary [facility] Diagnosis Osteoarthritis involving multiple joints on both sides of body- Primary [facility] Diagnosis Astrocytoma (HCC) Malignant neoplasm of brain, unspecified site 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, unspecified site Cognitive decline Unspecified persistent mental disorders due to conditions classified elsewhere 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, unspecified site Cognitive decline Unspecified persistent mental disorders due to conditions classified elsewhere [facility] Diagnosis Astrocytoma (HCC) Malignant neoplasm of brain, unspecified site 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, unspecified site Cognitive decline Unspecified persistent mental disorders due to conditions classified elsewhere [facility] Diagnosis Allergy to intravenous contrast [...] (HCC) Quadriplegia, unspecified [facility] 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, unspecified site [facility] Diagnosis Allergy to intravenous contrast media Allergy, unspecified not elsewhere classified 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, unspecified site Mild cognitive impairment Mild cognitive impairment, so stated Cognitive decline Unspecified persistent mental disorders due to conditions classified elsewhere [facility] Diagnosis Acute cystitis without hematuria- Primary Acute cystitis [facility] Diagnosis Allergy to intravenous contrast media Allergy, unspecified not elsewhere classified 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 Diagnosis Allergy to intravenous [...] unspecified 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, unspecified site documented in this encounter [facility] note* Diagnosis Cerebral infarction due to [...] Spasm of muscle documented in this encounter [facility] noteNo assessment information availableWKettering [facility] Work Phone: Evaluation note* 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, unspecified site documented in this encounter [facility] note* Diagnosis Spasticity- Primary Abnormal involuntary movements 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, unspecified site documented in this encounter [facility] note* 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, unspecified site Spasticity Abnormal involuntary movements Cognitive decline Unspecified persistent mental disorders due to conditions classified elsewhere documented in this encounter [facility] note* Diagnosis Glioblastoma (HCC)- Primary Malignant neoplasm of brain, unspecified site documented in this encounter [facility] for referral (narrative)* Diagnostic Procedure Only [...] Mini Whyte MD [address] [place] [address] Xr [facility] Referral ID Status Reason Start Date Expiration Date Visits Requested Visits Authorized [id number] New Request Auto-Generat ed Referral 4 04/03/2025 [...] Quadriplegia (HCC) Procedures CONSULT TO NEUROLOGY OFFICE/OUTPATIENT [facility] 60 MINUTES Mini Whyte MD [address] [address] Referral ID Status Reason Start Date Expiration Date Visits Requested Visits Authorized [id number] Authorized PCP Requested Referral 4 03/04/2025 1 1 * Consult, Test, Treat (Routine) - Authorized Specialty Diagnoses / Procedures Referred By Contac t Referred To Contact [facility] [place] Diagnoses Allergy to intravenous contrast media Anaplastic astrocytoma (HCC) Mild cognitive impairment Cognitive decline Occlusion and stenosis of unspecified carotid artery Pathological fracture, other site, initial encounter for fracture Injury of cervical spinal cord, sequela (HCC) Quadriplegia (HCC) Procedures CONSULT TO [facility] OFFICE/OUTPATIENT [facility] 60 MINUTES Mini Whyte MD [address] [address] [place] [address] [place] [address] Referral ID Status Reason Start Date Expiration Date Visits Requested Visits Authorized [id number] Authorized PCP Requested Referral 4 03/04/2025 1 [...] MDM 60 MINUTES Mini Whyte MD [address] [place] [address] [facility] [address] [place] [address] Referral ID Status Reason Start Date Expiration Date Visits Requested Visits Authorized [id number] Authorized PCP Requested Referral 4 03/04/2025 1 [...] W/O & W/CONTR MATRL Mini Whyte MD [address] [place] [phone] [facility] [place] [id number] Referral ID Status Reason Start Date Expiration Date Visits Requested Visits Authorized [id number] New Request Auto-Generat ed Referral 4 04/03/2025 [...] MRA, NECK; W/O CONTRAST Mini Whyte MD [address] [place] [address] Mr [facility] [place] [id number] Referral ID Status Reason Start Date Expiration Date Visits Requested Visits Authorized [id number] New Request Auto-Generat ed Referral 4 04/03/2025 [...] CONTRAST Mini Whyte MD [address] [place] [address] Mr [facility] [place] [id number] Referral ID Status Reason Start Date Expiration Date Visits Requested Visits Authorized [id number] New Request Auto-Generat ed Referral 4 04/03/2025 1 1 [facility]No reason for referral information availableWKettering [facility] Work Phone: Reason for visit Narrative* Diagnostic [...] VIEWS Mini Whyte MD [address] [place] [phone] Phone: tel: fax: XR IMAGING [place] [id number] Referral ID Status Reason Start Date Expiration Date V isits Requested Visits Authorized [id number] Closed Auto-Generate d Referral 03/04/2024 04/03/2025 1 1 [facility] for visit Narrative* MRI/CT (Routine) - Closed Specialty Diagnoses / Procedures Referred By Contac t Referred To Contact MR IMAGING Diagnoses Anaplastic astrocytoma (HCC) Procedures MRI BRAIN WO/W IVCON MRI BRAIN BRAIN STEM W/O W/CONTRAST MATERIAL Mini Whyte MD [address] [place] [address] Phone: tel: fax: MR IMAGING [place] [id number] Referral ID Status Reason Start Date Expiration Date V isits Requested Visits Authorized [id number] Closed Auto-Generate d Referral 05/28/2024 06/27/2025 1 1 [facility] for visit Narrative* MRI/CT (Routine) - Closed Specialty Diagnoses / Procedures Referred By Contac t Referred To Contact MR IMAGING Diagnoses Astrocytoma brain tumor (HCC) Procedures MRI BRAIN WO/W IVCON MRI BRAIN BRAIN STEM W/O W/CONTRAST MATERIAL Mini Whyte MD [address] [place] [address] Phone: tel: fax: MR [facility] [place] [id number] Referral ID Status Reason Start Date Expiration Date V isits Requested Visits Authorized [id number] Closed Auto-Generate d Referral 08/05/2024 09/04/2025 1 1 [facility] Summary Purpose Family History No Family [...] MIN Mini Whyte MD [address] [address] [facility] [address] [place] [address] Referral ID Status Reason Start Date Expiration Date Visits Requested Visits Authorized [id number] Ref Not Required PCP Requested Referral 01/20/2025 1 3 Specialty Diagnoses / Procedures Referred By Contac t Referred To Contact MR IMAGING Diagnoses Astrocytoma (HCC) Procedures MRI BRAIN WO/W IVCON MRI BRAIN BRAIN STEM W/O W/CONTRAST MATERIAL Mini Whyte MD [address] [place] [phone] [facility] Referral ID Status Reason Start Date Expiration Date Visits Requested Visits Authorized [id number] Authorized Auto-Generat ed Referral 02/21/2025 1 1 Specialty Diagnoses / Procedures Referred By Contac t Referred To Contact MR IMAGING Diagnoses Anaplastic astrocytoma (HCC) Cognitive decline Procedures MRI BRAIN WO IVCON MRI BRAIN BRAIN STEM W/O CONTRAST MATERIAL Mini Whyte MD [address] [place] [phone] Mr [facility] Referral ID Status Reason Start Date Expiration Date Visits Requested Visits Authorized [id number] New Request Auto-Generat ed Referral 02/28/2024 03/29/2025 1 1 Specialty Diagnoses / Procedures Referred By Contac t Referred To Contact MR IMAGING Diagnoses Astrocytoma brain tumor (HCC) Procedures MRI BRAIN WO/W IVCON MRI BRAIN BRAIN STEM W/O W/CONTRAST MATERIAL Mini Whyte MD [address] [address] [facility] Referral ID Status Reason Start Date Expiration Date Visits Requested Visits Authorized [id number] Authorized Auto-Generat ed Referral 04/03/2025 1 1 Chief Complaint and Reason for Visit Chief Complaint Admit Date LABWORK March 27, 2024 7: 20am [facility] LAB WORK March 28, 2024 4:00am [facility] LAB WORK March 31, 2024 5:00am COGNITIVE DECLINE, POST SPINAL CORD SURG JOSEPHINE April 29, 2024 11:28am Chief Complaint Admit Date COGNITIVE DECLINE, POST SPINAL CORD SURG JOSEPHINE April 29, 2024 11:28am LABWORK August 07, 2024 5:00a m LABWORK August 08, 2024 5:00a m [facility]AY LAB WORK August 13, 2024 4:0 0am Chief Complaint Admit Date [facility] LAB WORK November 18, 2024 5:00am LAB WORK November 19, 2024 3: 30pm [facility] LAB WORK December 02 5:00am Additional Source Comments INFORMATION SOURCE (unrecogn ized section and content) DATE CREATED AUTHOR 06/22/2020 [facility] DATE CREATED AUTHOR AUTHOR'S ORGANIZ ATION 01/21/2022 [facility] DATE CREATED AUTHOR AUTHOR'S ORGANIZ ATION 08/07/2022 [facility] DATE CREATED AUTHOR AUTHOR'S ORGANIZ ATION 02/02/2025 [facility] DATE CREATED AUTHOR AUTHOR'S ORGANIZ ATION 02/05/2025 [facility] Source Comments (unrecognize d section and content) In the event this informatio n is protected by the Federal Confidentiality of Alcohol and Drug Abuse Patient Records regulations: The Federal rules restrict any use of the information to criminally investigate or prosecute any alcohol or drug abuse patient.[facility] HospitalIn the event this information is protected by the Federal Confidentiality of Alcohol and Drug Abuse Patient Records regulations: The Federal rules restrict any use of the information to criminally investigate or prosecute any alcohol or drug abuse patient.[facility] HospitalIn the event this information is protected by the Federal Confidentiality of Alcohol and Drug Abuse Patient Records regulations: The Federal rules restrict any use of the information to criminally investigate or prosecute any alcohol or drug abuse patient.[facility] HospitalIn the event this information is protected by the Federal Confidentiality of Alcohol and Drug Abuse Patient Records regulations: The Federal rules restrict any use of the information to criminally investigate or prosecute any alcohol or drug abuse patient.[facility] HospitalIn the event this information is protected by the Federal Confidentiality of Alcohol and Drug Abuse Patient Records regulations: The Federal rules restrict any use of the information to criminally investigate or prosecute any alcohol or drug abuse patient.[facility] HospitalIn the event this information is protected by the Federal Confidentiality of Alcohol and Drug Abuse Patient Records regulations: The Federal rules restrict any use of the information to criminally investigate or prosecute any alcohol or drug abuse patient.[facility] HospitalIn the event this information is protected by the Federal Confidentiality of Alcohol and Drug Abuse Patient Records regulations: The Federal rules restrict any use of the information to criminally investigate or prosecute any alcohol or drug abuse patient.[facility] HospitalIn the event this information is protected by the Federal Confidentiality of Alcohol and Drug Abuse Patient Records regulations: The Federal rules restrict any use of the information to criminally investigate or prosecute any alcohol or drug abuse patient.[facility] HospitalIn the event this information is protected by the Federal Confidentiality of Alcohol and Drug Abuse Patient Records regulations: The Federal rules restrict any use of the information to criminally investigate or prosecute any alcohol or drug abuse patient.[facility] HospitalIn the event this information is protected by the Federal Confidentiality of Alcohol and Drug Abuse Patient Records regulations: The Federal rules restrict any use of the information to criminally investigate or prosecute any alcohol or drug abuse patient.[facility] HospitalIn the event this information is protected by the Federal Confidentiality of Alcohol and Drug Abuse Patient Records regulations: The Federal rules restrict any use of the information to criminally investigate or prosecute any alcohol or drug abuse patient.[facility] HospitalIn the event this information is protected by the Federal Confidentiality of Alcohol and Drug Abuse Patient Records regulations: The Federal rules restrict any use of the information to criminally investigate or prosecute any alcohol or drug abuse patient.[facility] HospitalIn the event this information is protected by the Federal Confidentiality of Alcohol and Drug Abuse Patient Records regulations: The Federal rules restrict any use of the information to criminally investigate or prosecute any alcohol or drug abuse patient.[facility] HospitalIn the event this information is protected by the Federal Confidentiality of Alcohol and Drug Abuse Patient Records regulations: The Federal rules restrict any use of the information to criminally investigate or prosecute any alcohol or drug abuse patient.[facility] the event this information is protected by the Federal Confidentiality of Alcohol and Drug Abuse Patient Records regulations: The Federal rules restrict any use of the information to criminally investigate or prosecute any alcohol or drug abuse patient.[facility] HospitalIn the event this information is protected by the Federal Confidentiality of Alcohol and Drug Abuse Patient Records regulations: The Federal rules restrict any use of the information to criminally investigate or prosecute any alcohol or drug abuse patient.[facility] HospitalIn the event this information is protected [...] or prosecute any alcohol or drug abuse patient.[facility] HospitalIn the event this information is protected by the Federal Confidentiality of Alcohol and Drug Abuse Patient Records regulations: The Federal rules restrict any use of the information to criminally investigate or prosecute any alcohol or drug abuse patient.[facility] HospitalIn the event this information is protected by the Federal Confidentiality of Alcohol and Drug Abuse Patient Records regulations: The Federal rules restrict any use of the information to criminally investigate or prosecute any alcohol or drug abuse patient.[facility] HospitalIn the event this information is protected by the Federal Confidentiality of Alcohol and Drug Abuse Patient Records regulations: The Federal rules restrict any use of the information to criminally investigate or prosecute any alcohol or drug abuse patient.[facility] HospitalIn the event this information is protected by the Federal Confidentiality of Alcohol and Drug Abuse Patient Records regulations: The Federal rules restrict any use of the information to criminally investigate or prosecute any alcohol or drug abuse patient.[facility] HospitalIn the event this information is protected by the Federal Confidentiality of Alcohol and Drug Abuse Patient Records regulations: The Federal rules restrict any use of the information to criminally investigate or prosecute any alcohol or drug abuse patient.[facility] HospitalIn the event this information is protected by the Federal Confidentiality of Alcohol and Drug Abuse Patient Records regulations: The Federal rules restrict any use of the information to criminally investigate or prosecute any alcohol or drug abuse patient.[facility] HospitalIn the event this information is protected by the Federal Confidentiality of Alcohol and Drug Abuse Patient Records regulations: The Federal rules restrict any use of the information to criminally investigate or prosecute any alcohol or drug abuse patient.[facility] HospitalIn the event this information is protected by the Federal Confidentiality of Alcohol and Drug Abuse Patient Records regulations: The Federal rules restrict any use of the information to criminally investigate or prosecute any alcohol or drug abuse patient.[facility] HospitalIn the event this information is protected by the Federal Confidentiality of Alcohol and Drug Abuse Patient Records regulations: The Federal rules restrict any use of the information to criminally investigate or prosecute any alcohol or drug abuse patient.[facility] HospitalIn the event this information is protected by the Federal Confidentiality of Alcohol and Drug Abuse Patient Records regulations: The Federal rules restrict any use of the information to criminally investigate or prosecute any alcohol or drug abuse patient.[facility] HospitalIn the event this information is protected by the Federal Confidentiality of Alcohol and Drug Abuse Patient Records regulations: The Federal rules restrict any use of the information to criminally investigate or prosecute any alcohol or drug abuse patient.[facility] HospitalIn the event this information is protected by the Federal Confidentiality of Alcohol and Drug Abuse Patient Records regulations: The Federal rules restrict any use of the information to criminally investigate or prosecute any alcohol or drug abuse patient.[facility] HospitalIn the event this information is protected by the Federal Confidentiality of Alcohol and Drug Abuse Patient Records regulations: The Federal rules restrict any use of the information to criminally investigate or prosecute any alcohol or drug abuse patient.[facility] HospitalIn the event this information is protected by the Federal Confidentiality of Alcohol and Drug Abuse Patient Records regulations: The Federal rules restrict any use of the information to criminally investigate or prosecute any alcohol or drug abuse patient.[facility] HospitalIn the event this information is protected by the Federal Confidentiality of Alcohol and Drug Abuse Patient Records regulations: The Federal rules restrict any use of the information to criminally investigate or prosecute any alcohol or drug abuse patient.[facility] HospitalIn the event this information is protected by the Federal Confidentiality of Alcohol and Drug Abuse Patient Records regulations: The Federal rules restrict any use of the information to criminally investigate or prosecute any alcohol or drug abuse patient.[facility] HospitalIn the event this information is protected by the Federal Confidentiality of Alcohol and Drug Abuse Patient Records regulations: The Federal rules restrict any use of the information to criminally investigate or prosecute any alcohol or drug abuse patient.[facility] HospitalIn the event this information is protected by the Federal Confidentiality of Alcohol and Drug Abuse Patient Records regulations: The Federal rules restrict any use of the information to criminally investigate or prosecute any alcohol or drug abuse patient.[facility] HospitalIn the event this information is protected by the Federal Confidentiality of Alcohol and Drug Abuse Patient Records regulations: The Federal rules restrict any use of the information to criminally investigate or prosecute any alcohol or drug abuse patient.[facility] HospitalIn the event this information is protected by the Federal Confidentiality of Alcohol and Drug Abuse Patient Records regulations: The Federal rules restrict any use of the information to criminally investigate or prosecute any alcohol or drug abuse patient.[facility] HospitalIn the event this information is protected by the Federal Confidentiality of Alcohol and Drug Abuse Patient Records regulations: The Federal rules restrict any use of the information to criminally investigate or prosecute any alcohol or drug abuse patient.[facility] HospitalIn the event this information is protected by the Federal Confidentiality of Alcohol and Drug Abuse Patient Records regulations: The Federal rules restrict any use of the information to criminally investigate or prosecute any alcohol or drug abuse patient.[facility] HospitalIn the event this information is protected by the Federal Confidentiality of Alcohol and Drug Abuse Patient Records regulations: The Federal rules restrict any use of the information to criminally investigate or prosecute any alcohol or drug abuse patient.[facility] HospitalIn the event this information is protected by the Federal Confidentiality of Alcohol and Drug Abuse Patient Records regulations: The Federal rules restrict any use of the information to criminally investigate or prosecute any alcohol or drug abuse patient.[facility] HospitalIn the event this information is protected by the Federal Confidentiality of Alcohol and Drug Abuse Patient Records regulations: The Federal rules restrict any use of the information to criminally investigate or prosecute any alcohol or drug abuse patient.[facility] HospitalIn the event this information is protected by the Federal Confidentiality of Alcohol and Drug Abuse Patient Records regulations: The Federal rules restrict any use of the information to criminally investigate or prosecute any alcohol or drug abuse patient.[facility] HospitalIn the event this information is protected by the Federal Confidentiality of Alcohol and Drug Abuse Patient Records regulations: The Federal rules restrict any use of the information to criminally investigate or prosecute any alcohol or drug abuse patient.[facility] HospitalIn the event this information is protected by the Federal Confidentiality of Alcohol and Drug Abuse Patient Records regulations: The Federal rules restrict any use of the information to criminally investigate or prosecute any alcohol or drug abuse patient.[facility] HospitalIn the event this information is protected by the Federal Confidentiality of Alcohol and Drug Abuse Patient Records regulations: The Federal rules restrict any use of the information to criminally investigate or prosecute any alcohol or drug abuse patient.[facility] HospitalIn the event this information is protected by the Federal Confidentiality of Alcohol and Drug Abuse Patient Records regulations: The Federal rules restrict any use of the information to criminally investigate or prosecute any alcohol or drug abuse patient.[facility] HospitalIn the event this information is protected by the Federal Confidentiality of Alcohol and Drug Abuse Patient Records regulations: The Federal rules restrict any use of the information to criminally investigate or prosecute any alcohol or drug abuse patient.[facility] HospitalIn the event this information is protected by the Federal Confidentiality of Alcohol and Drug Abuse Patient Records regulations: The Federal rules restrict any use of the information to criminally investigate or prosecute any alcohol or drug abuse patient.[facility] HospitalIn the event this information is protected by the Federal Confidentiality of Alcohol and Drug Abuse Patient Records regulations: The Federal rules restrict any use of the information to criminally investigate or prosecute any alcohol or drug abuse patient.[facility] HospitalIn the event this information is protected by the Federal Confidentiality of Alcohol and Drug Abuse Patient Records regulations: The Federal rules restrict any use of the information to criminally investigate or prosecute any alcohol or drug abuse patient.[facility] HospitalIn the event this information is protected by the Federal Confidentiality of Alcohol and Drug Abuse Patient Records regulations: The Federal rules restrict any use of the information to criminally investigate or prosecute any alcohol or drug abuse patient.[facility] HospitalIn the event this information is protected by the Federal Confidentiality of Alcohol and Drug Abuse Patient Records regulations: The Federal rules restrict any use of the information to criminally investigate or prosecute any alcohol or drug abuse patient.[facility] HospitalIn the event this information is protected by the Federal Confidentiality of Alcohol and Drug Abuse Patient Records regulations: The Federal rules restrict any use of the information to criminally investigate or prosecute any alcohol or drug abuse patient.[facility] HospitalIn the event this information is protected by the Federal Confidentiality of Alcohol and Drug Abuse Patient Records regulations: The Federal rules restrict any use of the information to criminally investigate or prosecute any alcohol or drug abuse patient.[facility] HospitalIn the event this information is protected by the Federal Confidentiality of Alcohol and Drug Abuse Patient Records regulations: The Federal rules restrict any use of the information to criminally investigate or prosecute any alcohol or drug abuse patient.[facility] HospitalIn the event this information is protected by the Federal Confidentiality of Alcohol and Drug Abuse Patient Records regulations: The Federal rules restrict any use of the information to criminally investigate or prosecute any alcohol or drug abuse patient.[facility] HospitalIn the event this information is protected by the Federal Confidentiality of Alcohol and Drug Abuse Patient Records regulations: The Federal rules restrict any use of the information to criminally investigate or prosecute any alcohol or drug abuse patient.[facility] HospitalIn the event this information is protected by the Federal Confidentiality of Alcohol and Drug Abuse Patient Records regulations: The Federal rules restrict any use of the information to criminally investigate or prosecute any alcohol or drug abuse patient.[facility] HospitalIn the event this information is protected by the Federal Confidentiality of Alcohol and Drug Abuse Patient Records regulations: The Federal rules restrict any use of the information to criminally investigate or prosecute any alcohol or drug abuse patient.[facility] HospitalIn the event this information is protected by the Federal Confidentiality of Alcohol and Drug Abuse Patient Records regulations: The Federal rules restrict any use of the information to criminally investigate or prosecute any alcohol or drug abuse patient.[facility] HospitalIn the event this information is protected by the Federal Confidentiality of Alcohol and Drug Abuse Patient Records regulations: The Federal rules restrict any use of the information to criminally investigate or prosecute any alcohol or drug abuse patient.[facility] HospitalIn the event this information is protected by the Federal Confidentiality of Alcohol and Drug Abuse Patient Records regulations: The Federal rules restrict any use of the information to criminally investigate or prosecute any alcohol or drug abuse patient.[facility] the event this information is protected by the Federal Confidentiality of Alcohol and Drug Abuse Patient Records regulations: The Federal rules restrict any use of the information to criminally investigate or prosecute any alcohol or drug abuse patient.[facility] HospitalIn the event this information is protected by the Federal Confidentiality of Alcohol and Drug Abuse Patient Records regulations: The Federal rules restrict any use of the information to criminally investigate or prosecute any alcohol or drug abuse patient.[facility] HospitalIn the event this information is protected [...] or prosecute any alcohol or drug abuse patient.[facility] HospitalIn the event this information is protected by the Federal Confidentiality of Alcohol and Drug Abuse Patient Records regulations: The Federal rules restrict any use of the information to criminally investigate or prosecute any alcohol or drug abuse patient.[facility] HospitalIn the event this information is protected by the Federal Confidentiality of Alcohol and Drug Abuse Patient Records regulations: The Federal rules restrict any use of the information to criminally investigate or prosecute any alcohol or drug abuse patient.[facility] HospitalIn the event this information is protected by the Federal Confidentiality of Alcohol and Drug Abuse Patient Records regulations: The Federal rules restrict any use of the information to criminally investigate or prosecute any alcohol or drug abuse patient.[facility] HospitalIn the event this information is protected by the Federal Confidentiality of Alcohol and Drug Abuse Patient Records regulations: The Federal rules restrict any use of the information to criminally investigate or prosecute any alcohol or drug abuse patient.[facility] HospitalIn the event this information is protected by the Federal Confidentiality of Alcohol and Drug Abuse Patient Records regulations: The Federal rules restrict any use of the information to criminally investigate or prosecute any alcohol or drug abuse patient.[facility] HospitalIn the event this information is protected by the Federal Confidentiality of Alcohol and Drug Abuse Patient Records regulations: The Federal rules restrict any use of the information to criminally investigate or prosecute any alcohol or drug abuse patient.[facility] HospitalIn the event this information is protected by the Federal Confidentiality of Alcohol and Drug Abuse Patient Records regulations: The Federal rules restrict any use of the information to criminally investigate or prosecute any alcohol or drug abuse patient.[facility] HospitalIn the event this information is protected by the Federal Confidentiality of Alcohol and Drug Abuse Patient Records regulations: The Federal rules restrict any use of the information to criminally investigate or prosecute any alcohol or drug abuse patient.[facility] HospitalIn the event this information is protected by the Federal Confidentiality of Alcohol and Drug Abuse Patient Records regulations: The Federal rules restrict any use of the information to criminally investigate or prosecute any alcohol or drug abuse patient.[facility] HospitalIn the event this information is protected by the Federal Confidentiality of Alcohol and Drug Abuse Patient Records regulations: The Federal rules restrict any use of the information to criminally investigate or prosecute any alcohol or drug abuse patient.[facility] HospitalIn the event this information is protected by the Federal Confidentiality of Alcohol and Drug Abuse Patient Records regulations: The Federal rules restrict any use of the information to criminally investigate or prosecute any alcohol or drug abuse patient.[facility] HospitalIn the event this information is protected by the Federal Confidentiality of Alcohol and Drug Abuse Patient Records regulations: The Federal rules restrict any use of the information to criminally investigate or prosecute any alcohol or drug abuse patient.[facility] HospitalIn the event this information is protected by the Federal Confidentiality of Alcohol and Drug Abuse Patient Records regulations: The Federal rules restrict any use of the information to criminally investigate or prosecute any alcohol or drug abuse patient.[facility] HospitalIn the event this information is protected by the Federal Confidentiality of Alcohol and Drug Abuse Patient Records regulations: The Federal rules restrict any use of the information to criminally investigate or prosecute any alcohol or drug abuse patient.[facility] HospitalIn the event this information is protected by the Federal Confidentiality of Alcohol and Drug Abuse Patient Records regulations: The Federal rules restrict any use of the information to criminally investigate or prosecute any alcohol or drug abuse patient.[facility] HospitalIn the event this information is protected by the Federal Confidentiality of Alcohol and Drug Abuse Patient Records regulations: The Federal rules restrict any use of the information to criminally investigate or prosecute any alcohol or drug abuse patient.[facility] HospitalIn the event this information is protected by the Federal Confidentiality of Alcohol and Drug Abuse Patient Records regulations: The Federal rules restrict any use of the information to criminally investigate or prosecute any alcohol or drug abuse patient.[facility] HospitalIn the event this information is protected by the Federal Confidentiality of Alcohol and Drug Abuse Patient Records regulations: The Federal rules restrict any use of the information to criminally investigate or prosecute any alcohol or drug abuse patient.[facility] HospitalIn the event this information is protected by the Federal Confidentiality of Alcohol and Drug Abuse Patient Records regulations: The Federal rules restrict any use of the information to criminally investigate or prosecute any alcohol or drug abuse patient.[facility] HospitalIn the event this information is protected by the Federal Confidentiality of Alcohol and Drug Abuse Patient Records regulations: The Federal rules restrict any use of the information to criminally investigate or prosecute any alcohol or drug abuse patient.[facility] HospitalIn the event this information is protected by the Federal Confidentiality of Alcohol and Drug Abuse Patient Records regulations: The Federal rules restrict any use of the information to criminally investigate or prosecute any alcohol or drug abuse patient.[facility] HospitalIn the event this information is protected by the Federal Confidentiality of Alcohol and Drug Abuse Patient Records regulations: The Federal rules restrict any use of the information to criminally investigate or prosecute any alcohol or drug abuse patient.[facility] HospitalIn the event this information is protected by the Federal Confidentiality of Alcohol and Drug Abuse Patient Records regulations: The Federal rules restrict any use of the information to criminally investigate or prosecute any alcohol or drug abuse patient.[facility] HospitalIn the event this information is protected by the Federal Confidentiality of Alcohol and Drug Abuse Patient Records regulations: The Federal rules restrict any use of the information to criminally investigate or prosecute any alcohol or drug abuse patient.[facility] HospitalIn the event this information is protected by the Federal Confidentiality of Alcohol and Drug Abuse Patient Records regulations: The Federal rules restrict any use of the information to criminally investigate or prosecute any alcohol or drug abuse patient.[facility] HospitalIn the event this information is protected by the Federal Confidentiality of Alcohol and Drug Abuse Patient Records regulations: The Federal rules restrict any use of the information to criminally investigate or prosecute any alcohol or drug abuse patient.[facility] HospitalIn the event this information is protected by the Federal Confidentiality of Alcohol and Drug Abuse Patient Records regulations: The Federal rules restrict any use of the information to criminally investigate or prosecute any alcohol or drug abuse patient.[facility] HospitalIn the event this information is protected by the Federal Confidentiality of Alcohol and Drug Abuse Patient Records regulations: The Federal rules restrict any use of the information to criminally investigate or prosecute any alcohol or drug abuse patient.[facility] HospitalIn the event this information is protected by the Federal Confidentiality of Alcohol and Drug Abuse Patient Records regulations: The Federal rules restrict any use of the information to criminally investigate or prosecute any alcohol or drug abuse patient.[facility] HospitalIn the event this information is protected by the Federal Confidentiality of Alcohol and Drug Abuse Patient Records regulations: The Federal rules restrict any use of the information to criminally investigate or prosecute any alcohol or drug abuse patient.[facility] HospitalIn the event this information is protected by the Federal Confidentiality of Alcohol and Drug Abuse Patient Records regulations: The Federal rules restrict any use of the information to criminally investigate or prosecute any alcohol or drug abuse patient.[facility] HospitalIn the event this information is protected by the Federal Confidentiality of Alcohol and Drug Abuse Patient Records regulations: The Federal rules restrict any use of the information to criminally investigate or prosecute any alcohol or drug abuse patient.[facility] HospitalIn the event this information is protected by the Federal Confidentiality of Alcohol and Drug Abuse Patient Records regulations: The Federal rules restrict any use of the information to criminally investigate or prosecute any alcohol or drug abuse patient.[facility] HospitalIn the event this information is protected by the Federal Confidentiality of Alcohol and Drug Abuse Patient Records regulations: The Federal rules restrict any use of the information to criminally investigate or prosecute any alcohol or drug abuse patient.[facility] HospitalIn the event this information is protected by the Federal Confidentiality of Alcohol and Drug Abuse Patient Records regulations: The Federal rules restrict any use of the information to criminally investigate or prosecute any alcohol or drug abuse patient.[facility] HospitalIn the event this information is protected by the Federal Confidentiality of Alcohol and Drug Abuse Patient Records regulations: The Federal rules restrict any use of the information to criminally investigate or prosecute any alcohol or drug abuse patient.[facility] HospitalIn the event this information is protected by the Federal Confidentiality of Alcohol and Drug Abuse Patient Records regulations: The Federal rules restrict any use of the information to criminally investigate or prosecute any alcohol or drug abuse patient.[facility] HospitalIn the event this information is protected by the Federal Confidentiality of Alcohol and Drug Abuse Patient Records regulations: The Federal rules restrict any use of the information to criminally investigate or prosecute any alcohol or drug abuse patient.[facility] HospitalIn the event this information is protected by the Federal Confidentiality of Alcohol and Drug Abuse Patient Records regulations: The Federal rules restrict any use of the information to criminally investigate or prosecute any alcohol or drug abuse patient.[facility] HospitalIn the event this information is protected by the Federal Confidentiality of Alcohol and Drug Abuse Patient Records regulations: The Federal rules restrict any use of the information to criminally investigate or prosecute any alcohol or drug abuse patient.[facility] HospitalIn the event this information is protected by the Federal Confidentiality of Alcohol and Drug Abuse Patient Records regulations: The Federal rules restrict any use of the information to criminally investigate or prosecute any alcohol or drug abuse patient.[facility] HospitalIn the event this information is protected by the Federal Confidentiality of Alcohol and Drug Abuse Patient Records regulations: The Federal rules restrict any use of the information to criminally investigate or prosecute any alcohol or drug abuse patient.[facility] HospitalIn the event this information is protected by the Federal Confidentiality of Alcohol and Drug Abuse Patient Records regulations: The Federal rules restrict any use of the information to criminally investigate or prosecute any alcohol or drug abuse patient.[facility] HospitalIn the event this information is protected by the Federal Confidentiality of Alcohol and Drug Abuse Patient Records regulations: The Federal rules restrict any use of the information to criminally investigate or prosecute any alcohol or drug abuse patient.[facility] HospitalIn the event this information is protected by the Federal Confidentiality of Alcohol and Drug Abuse Patient Records regulations: The Federal rules restrict any use of the information to criminally investigate or prosecute any alcohol or drug abuse patient.[facility] HospitalIn the event this information is protected by the Federal Confidentiality of Alcohol and Drug Abuse Patient Records regulations: The Federal rules restrict any use of the information to criminally investigate or prosecute any alcohol or drug abuse patient.[facility] the event this information is protected by the Federal Confidentiality of Alcohol and Drug Abuse Patient Records regulations: The Federal rules restrict any use of the information to criminally investigate or prosecute any alcohol or drug abuse patient.[facility] HospitalIn the event this information is protected by the Federal Confidentiality of Alcohol and Drug Abuse Patient Records regulations: The Federal rules restrict any use of the information to criminally investigate or prosecute any alcohol or drug abuse patient.[facility] HospitalIn the event this information is protected [...] or prosecute any alcohol or drug abuse patient.[facility] HospitalIn the event this information is protected by the Federal Confidentiality of Alcohol and Drug Abuse Patient Records regulations: The Federal rules restrict any use of the information to criminally investigate or prosecute any alcohol or drug abuse patient.[facility] HospitalIn the event this information is protected by the Federal Confidentiality of Alcohol and Drug Abuse Patient Records regulations: The Federal rules restrict any use of the information to criminally investigate or prosecute any alcohol or drug abuse patient.[facility] HospitalIn the event this information is protected by the Federal Confidentiality of Alcohol and Drug Abuse Patient Records regulations: The Federal rules restrict any use of the information to criminally investigate or prosecute any alcohol or drug abuse patient.[facility] HospitalIn the event this information is protected by the Federal Confidentiality of Alcohol and Drug Abuse Patient Records regulations: The Federal rules restrict any use of the information to criminally investigate or prosecute any alcohol or drug abuse patient.[facility] HospitalIn the event this information is protected by the Federal Confidentiality of Alcohol and Drug Abuse Patient Records regulations: The Federal rules restrict any use of the information to criminally investigate or prosecute any alcohol or drug abuse patient.[facility] HospitalIn the event this information is protected by the Federal Confidentiality of Alcohol and Drug Abuse Patient Records regulations: The Federal rules restrict any use of the information to criminally investigate or prosecute any alcohol or drug abuse patient.[facility] HospitalIn the event this information is protected by the Federal Confidentiality of Alcohol and Drug Abuse Patient Records regulations: The Federal rules restrict any use of the information to criminally investigate or prosecute any alcohol or drug abuse patient.[facility] HospitalIn the event this information is protected by the Federal Confidentiality of Alcohol and Drug Abuse Patient Records regulations: The Federal rules restrict any use of the information to criminally investigate or prosecute any alcohol or drug abuse patient.[facility] HospitalIn the event this information is protected by the Federal Confidentiality of Alcohol and Drug Abuse Patient Records regulations: The Federal rules restrict any use of the information to criminally investigate or prosecute any alcohol or drug abuse patient.[facility] HospitalIn the event this information is protected by the Federal Confidentiality of Alcohol and Drug Abuse Patient Records regulations: The Federal rules restrict any use of the information to criminally investigate or prosecute any alcohol or drug abuse patient.[facility] HospitalIn the event this information is protected by the Federal Confidentiality of Alcohol and Drug Abuse Patient Records regulations: The Federal rules restrict any use of the information to criminally investigate or prosecute any alcohol or drug abuse patient.[facility] HospitalIn the event this information is protected by the Federal Confidentiality of Alcohol and Drug Abuse Patient Records regulations: The Federal rules restrict any use of the information to criminally investigate or prosecute any alcohol or drug abuse patient.[facility] HospitalIn the event this information is protected by the Federal Confidentiality of Alcohol and Drug Abuse Patient Records regulations: The Federal rules restrict any use of the information to criminally investigate or prosecute any alcohol or drug abuse patient.[facility] HospitalIn the event this information is protected by the Federal Confidentiality of Alcohol and Drug Abuse Patient Records regulations: The Federal rules restrict any use of the information to criminally investigate or prosecute any alcohol or drug abuse patient.[facility] HospitalIn the event this information is protected by the Federal Confidentiality of Alcohol and Drug Abuse Patient Records regulations: The Federal rules restrict any use of the information to criminally investigate or prosecute any alcohol or drug abuse patient.[facility] HospitalIn the event this information is protected by the Federal Confidentiality of Alcohol and Drug Abuse Patient Records regulations: The Federal rules restrict any use of the information to criminally investigate or prosecute any alcohol or drug abuse patient.[facility] HospitalIn the event this information is protected by the Federal Confidentiality of Alcohol and Drug Abuse Patient Records regulations: The Federal rules restrict any use of the information to criminally investigate or prosecute any alcohol or drug abuse patient.[facility] HospitalIn the event this information is protected by the Federal Confidentiality of Alcohol and Drug Abuse Patient Records regulations: The Federal rules restrict any use of the information to criminally investigate or prosecute any alcohol or drug abuse patient.[facility] HospitalIn the event this information is protected by the Federal Confidentiality of Alcohol and Drug Abuse Patient Records regulations: The Federal rules restrict any use of the information to criminally investigate or prosecute any alcohol or drug abuse patient.[facility] Reason for Visit (unrecogniz ed section [...] MATERIAL Mini Whyte MD [address] [place] [address] [facility] [place] [id number] Referral ID Status Reason Start Date Expiration Date V isits Requested Visits Authorized [id number] Closed Auto-Generate d Referral 01/23/2024 02/21/2025 1 1 Reason Comments Established Patient Reason Comments Future Appointment New Patient [place] Any Reason Comments Orders Premedication for co ntrast allergy Reason Comments Pathology slides and records requested Reason Comments Path slides not available Reason Comments MARYJANE 2-3 weeks Reason Comments MRA 04/02/24- facility aware Reason Comments Facility change to [facility] 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 Reason Comments Confirm appt for [...] STEM W/O W/CONTRAST MATERIAL Mini Whyte MD [address] [place] [address] Phone: tel: fax: [facility] [place] [id number] Referral ID Status Reason Start Date Expiration Date V isits Requested Visits Authorized [id number] Closed Auto-Generate d Referral 03/04/2024 04/03/2025 1 [...] MDM 60 MINUTES Mini Whyte MD [address] [place] [address] Phone: tel: fax: [facility] [address] [place] [address] Phone: tel: Referral ID Status Reason Start Date Expiration Date V isits Requested Visits Authorized [id number] Closed PCP Requested Referral 03/04/2024 03/04/2025 1 1 Reason Comments MARYJANE 4 weeks Reason Comments Established Patient Reason Comments MARYJANE 07/2024 Reason Comments Established Patient Reason Comments [facility] Welcome Letter Mailed Reason Comments Spasticity Specialty Diagnoses / Procedures Referred By Jaycee t Referred To Contact [facility] Diagnoses Spasticity Procedures OFFICE/OUTPATIENT [facility] 60 MINUTES Mini Whyte MD [address] [place] [address] Phone: tel: fax: [facility] [address] [place] [address] Referral ID Status Reason Start Date Expiration Date V isits Requested Visits Authorized [id number] Closed PCP Requested Referral Auto-Generated Referral 07/31/2024 07/31/2025 1 1 Reason Comments MARYJANE 2-4 weeks Reason Comments MARYJANE 3 months Care Teams (unrecognized sec tion and content) Technical Rep Relationship Specialty Start Date End Date Leela Escoto DO [address] [place] [address] PCP - General Family Practice 05/26/21 Technical Rep Relationship Specialty Start Date End Date Leela Escoto DO [address] [place] [address] PCP - General Family Practice 05/26/21 Technical Rep Relationship Specialty Start Date End Date Leela Esctoo DO [address] [place] [address] PCP - General Family Practice 05/26/21 Technical Rep Relationship Specialty Start Date End Date Sheets, Leela C, DO [address] [place] [address] PCP - General Family Practice 05/26/21 Technical Rep Relationship Specialty Start Date End Date Sheets Leela Sarahi, DO [address] [place] [address] PCP - General Family Practice 05/26/21 Technical Rep Relationship Specialty Start Date End Date Sheets Leela Mcclain, DO [address] [place] [address] PCP - General Family Medicine 05/26/21 Technical Rep Relationship Specialty Start Date End Date Sheets Leela Mcclain DO [address] [place] [address] PCP - General Family Medicine 05/26/21 Technical Rep Relationship Specialty Start Date End Date Sheets Leela Mcclain DO [address] [place] [address] PCP - General Family Medicine 05/26/21 Technical Rep Relationship Specialty Start Date End Date Sheets Leela Mcclain DO [address] [place] [address] PCP - General Family Medicine 05/26/21 Technical Rep Relationship Specialty Start Date End Date Sheets Leela Mcclain, DO [address] [place] [address] PCP - General Family Medicine 05/26/21 Technical Rep Relationship Specialty Start Date End Date Sheets, Leela Mcclain, DO [address] [place] [address] PCP - General Family Medicine 05/26/21 Technical Rep Relationship Specialty Start Date End Date Sheets, Leela Mcclain DO [address] [place] [address] PCP - General Family Medicine 05/26/21 Technical Rep Relationship Specialty Start Date End Date Sheets Leela Mcclain DO [address] [place] [address] PCP - General Family Medicine 05/26/21 Technical Rep Relationship Specialty Start Date End Date Sheets Leela Mcclain DO [address] [place] [address] PCP - General Family Medicine 05/26/21 Technical Rep Relationship Specialty Start Date End Date Sheets Leela Mcclain, DO [address] [place] [address] PCP - General Family Medicine 05/26/21 Technical Rep Relationship Specialty Start Date End Date Sheets Leela Mcclain DO [address] [place] [address] PCP - General Family Medicine 05/26/21 Technical Rep Relationship Specialty Start Date End Date Sheets Leela Mcclain DO [address] [place] [address] PCP - General Family Medicine 05/26/21 Technical Rep Relationship Specialty Start Date End Date Sheets Leela Mcclain DO [address] [place] [address] PCP - General Family Medicine 05/26/21 Technical Rep Relationship Specialty Start Date End Date Sheets Leela Mcclain, DO [address] [place] [address] PCP - General Family Medicine 05/26/21 Technical Rep Relationship Specialty Start Date End Date Sheets Leela Mcclain DO [address] [place] [address] PCP - General Family Medicine 05/26/21 Technical Rep Relationship Specialty Start Date End Date Sheets Leela Mcclain DO [address] [place] [address] PCP - General Family Medicine 05/26/21 Technical Rep Relationship Specialty Start Date End Date Jevon Leela Mcclain DO [address] [place] [address] PCP - General Family Medicine 05/26/21 Technical Rep Relationship Specialty Start Date End Date Leela Escoto DO [address] [place] [address] PCP - General Family Medicine 05/26/21 Technical Rep Relationship Specialty Start Date End Date Leela Escoto DO [address] [place] [address] PCP - General Family Medicine 05/26/21 Technical Rep Relationship Specialty Start Date End Date Leela Escoto DO [address] [place] [address] PCP - General Family Medicine 05/26/21 Technical Rep Relationship Specialty Start Date End Date Leela Escoto DO [address] [place] [address] PCP - General Family Medicine 05/26/21 Technical Rep Relationship Specialty Start Date End Date Leela Escoto DO [address] [place] [address] PCP - General Family Medicine 05/26/21 Technical Rep Relationship Specialty Start Date End Date Leela Escoto DO [address] [place] [address] PCP - General Family Medicine 05/26/21 Technical Rep Relationship Specialty Start Date End Date Leela Escoto DO [address] [place] [address] PCP - General Family Medicine 05/26/21 Technical Rep Relationship Specialty Start Date End Date Leela Escoto DO [address] [place] [address] PCP - General Family Medicine 05/26/21 Technical Rep Relationship Specialty Start Date End Date Leela Escoto DO [address] [place] [address] PCP - General Family Medicine 05/26/21 Technical Rep Relationship Specialty Start Date End Date Leela Escoto DO [address] [place] [address] PCP - General Family Medicine 05/26/21 Technical Rep Relationship Specialty Start Date End Date Leela Escoto DO [address] [place] [address] PCP - General Family Medicine 05/26/21 Technical Rep Relationship Specialty Start Date End Date Leela Escoto DO [address] [place] [address] PCP - General Family Medicine 05/26/21 Technical Rep Relationship Specialty Start Date End Date Leela Escoto DO [address] [place] [address] PCP - General Family Medicine 05/26/21 Technical Rep Relationship Specialty Start Date End Date Leela Escoto DO [address] [place] [address] PCP - General Family Medicine 05/26/21 Technical Rep Relationship Specialty Start Date End Date Leela Escoto DO [address] [place] [address] PCP - General Family Medicine 05/26/21 Technical Rep Relationship Specialty Start Date End Date Leela Escoto DO [address] [place] [address] PCP - General Family Medicine 05/26/21 Technical Rep Relationship Specialty Start Date End Date Leela Escoto DO [address] [place] [address] PCP - General Family Medicine 05/26/21 Technical Rep Relationship Specialty Start Date End Date Leela Escoto DO [address] [place] [address] PCP - General Family Medicine 05/26/21 Technical Rep Relationship Specialty Start Date End Date Leela Escoto DO [address] [place] [address] PCP - General Family Medicine 05/26/21 Technical Rep Relationship Specialty Start Date End Date Leela Escoto DO [address] [place] [address] PCP - General Family Medicine 05/26/21 Technical Rep Relationship Specialty Start Date End Date Leela Escoto DO [address] [place] [address] PCP - General Family Medicine 05/26/21 Technical Rep Relationship Specialty Start Date End Date eLela Escoto DO [address] [place] [address] PCP - General Family Medicine 05/26/21 03/23/24 [...] Provider Active Start: August 13, 2024 Dr. Evertet CURRIE MD Attending Provider Active Start: August [...] BE BASED ON THE PRIMARY CLINICAL RECORDS. [facility]. provides no warranty or guarantee of the accuracy or completeness of information in this document.
[2025-03-16] MEDS: 0.9% Saline Lock 10 ML Syringe IV (21:50)
[2025-03-16] MEDS: MELATONIN 3 MG TABLET 6 MG PO (21:50)
[2025-03-17] VITALS (35 sets, daily range): BP systolic 85–136; BP diastolic 46–93; PULSE 81–113; RESP 16–32; TEMP 36.4–37.9; O2SAT 93–98; BMI 29.6
[2025-03-17] MEDS: 0.9% Normal Saline (500mL Bag) 500 ML 999 ML IV (01:30)
[2025-03-17 06:20] LABS: Hematocrit 30.3 % (37-47); Hemoglobin 9.2 g/dL (12.0-15.0); Immature Granulocytes Count 0.080 X10^3/uL (0.0-0.0); Mean Corp Hgb Conc 30.4 g/dL (32-36); Mean Corpuscular Volume 93.2 fL (81-99); Mean Platelet Vol. 10.2 fl (6.2-12.0); NRBC Flagged by Analyzer 0 % (0-5); POSITIVE DIFFERENTIAL YES; POSITIVE MORPHOLOGY YES; Platelet Count 165 K/mm3 (150-450); RBC Distribution Width CV 14.6 % (11.6-14.6); RBC Distribution Width SD 49.9 fl (35.1-43.9); Red Blood Count 3.25 M/mm3 (4.2-5.4); White Blood Count 12.3 K/mm3 (4.4-11.0)
[2025-03-17] MEDS: Vancomycin HCl 1,000 MG in 0.9% Normal Saline (250mL Bag) 250 ML 250 MG IV (06:38)
[2025-03-17 06:53] LABS: AST(SGOT) 17 U/L (<=31); Alanine Aminotransfer ALT/SGPT 9 U/L (<=34); Albumin, Serum 2.7 g/dL (3.4-4.8); Alkaline Phosphatase 134 U/L (35-104); BUN 27 mg/dL (4-19); BUN/Creat Ratio 22.7 RATIO (10-20); Calcium,Total 8.9 mg/dL (7.6-11.0); Carbon Dioxide 21.7 mmol/L (20.0-29.0); Estimated Creatinine Clearance 46.84 ml/min (50-250); Globulin 3.0 g/dL (2.2-4.2); Glucose 112 mg/dL (70-99); Potassium 3.4 mmol/L (3.5-5.1)
[2025-03-17 06:55] LABS: Differential Comment SCANNED; Differential Indicated SCAN CRITERIA MET
--- NOTE | 2025-03-17 06:55 | PCM.HOSP.N ---
Hospitalist Note Blood cultures preliminary result showed gram-positive cocci in 1 set, microbiology staff did not know whether in clusters or chains she said possibly in chains but she preferred to wait for daytime staff. Later on the second set came back positive for gram-negative rods both aerobic and anaerobic Antibiotics were upgraded to vancomycin and Zosyn. Patient appears to be septic with multiorgan dysfunction including the brain and kidney from the history and exam. He remained slightly hypotensive but I did not give more fluids as he received enough and his MAP remained around 65. Of note, giving more fluids did not show to affect mortality in sepsis, but earlier antibiotics did so broadening coverage is all what he needs
[2025-03-17 07:02] LABS: Anion Gap 13 (7-18); Chloride 113 mmol/L (96-106)
--- NOTE | 2025-03-17 07:02 | PCM.RX.CS ---
Consult Antibiotic Management Pharmacy has been consulted to manage selected antibiotic: Vancomycin Type of Intervention Type of Consult: New start Labs Labs: Sodium 147 mmol/L (135-145) H 03/17/25 06:04 Potassium 3.4 mmol/L (3.5-5.1) L 03/17/25 06:04 Chloride 113 mmol/L (96-106) H 03/17/25 06:04 Carbon Dioxide 21.7 mmol/L (20.0-29.0) 03/17/25 06:04 Anion Gap 13 (7-18) 03/17/25 06:04 BUN 27 mg/dL (4-19) H 03/17/25 06:04 Creatinine 1.18 mg/dL (0.70-1.20) 03/17/25 06:04 Est GFR (MDRD) Non-Af 53 (>60) L 03/17/25 06:04 BUN/Creatinine Ratio 22.7 RATIO (10-20) H 03/17/25 06:04 Glucose 112 mg/dL (70-99) H 03/17/25 06:04 Microbiology Microbiology: Microbiology 03/16/25 14:40 Blood Culture (Wb) - Left Forearm Blood Culture - Preliminary 03/16/25 14:25 Blood Culture (Wb) - Left Hand Blood Culture - Preliminary 03/16/25 12:53 Mucosa - Nose SARS-CoV-2, Influenza & RSV (PCR) - Final Dosing Weight Weight used for dosin kg Estimated Creatinine Clearance Estimated Creatinine Clearance: 47 ML/MIN Goal Trough Goal Trough: 15-20 mcg/mL Pharmacy Plan for Drug Dosing Pharmacy Plan for Drug Dosing: Give initial standard dose of 1000mg IV x1, then continue with 500mg q12h per [facility] dosing protocol. Check a trough before the 4th overall dose. Pharmacy Service will continue to monitor and adjust dosing as required. Follow-Up Labs Follow-Up Labs: Trough: Vancomycin Date/Time Labs Ordered Labs to be done on [date and time ordered]: 03/18/25 18:30
--- NOTE | 2025-03-17 07:21 | PN.HOSP_ITS ---
Reason for Visit Chief Complaint: Increased confusion, fever. Subjective Subjective Patient remains significantly confused. Objective Data Objective Data Vital Signs: Vital Signs Temp Pulse Resp BP Pulse Ox O2 Del Method O2 Flow Rate 99.9 F H 113 H 22 H 87/48 L 96 Nasal Cannula 2 03/17/25 06:48 03/17/25 06:48 03/17/25 06:48 03/17/25 06:48 03/17/25 06:48 03/17/25 06:48 03/17/25 06:48 Oxygen Flow Rate (L/min) 2 Oxygen Delivery Method Nasal Cannula Weight: 73 kg Body Mass Index (BMI) 29.6 Intake & Output: Intake and Output for Last 24 Hours 03/15/25 03/16/25 03/17/25 23:59 23:59 23:59 Intake Total 1150 / 1300 1336.25 / 1336.25 Output Total 50 / 200 250 / 250 Balance 1100 / 1100 1086.25 / 1086.25 Lab / Micro Data 03/17/25 06:04 03/17/25 06:04 Labs: Laboratory Results - last 24 hr 03/16/25 13:08: WBC 21.6 H, RBC 3.67 L, Hgb 10.6 L, Hct 33.3 L, MCV 90.7, MCH 28.9, MCHC 31.8 L, RDW Std Deviation 49.0 H, RDW Coeff of Andrae 14.6, Plt Count 234, MPV 9.4, Neut % (Auto) Not Reportable, Absolute Neuts (auto) 18.5 H, Absolute Lymphs (auto) 1.50, Total Counted 100, Neutrophils % (Manual) 86 H, Band Neutrophils % 3, Lymphocytes % (Manual) 7 L, Monocytes % (Manual) 3, M yelocytes % 1 H, Platelet Estimate ADEQUATE, RBC Morphology NORM C+C, Sodium 143, Potassium 3.2 L, Chloride 104, Carbon Dioxide 24.2, Anion Gap 15, BUN 28 H, Creatinine 1.29 H, Estim Creat Clear Calc 43.25 L, Est GFR (MDRD) Non-Af 47 L, B UN/Creatinine Ratio 21.9 H, Glucose 145 H, Lactic Acid 2.2 H*, Calcium 10.1, Total Bilirubin 0.31, AST 24, ALT 15, Alkaline Phosphatase 138 H, Troponin T High Sens 12, Total Protein 6.9, Albumin 3.3 L, Globulin 3.6, Albumin/Globulin Ratio 0.9 03/16/25 13:52: Urine Color Yellow, Urine Clarity Cloudy, Urine pH 8.0, Ur Specific [place] 1.010, Urine Protein 100 H, Urine Glucose (UA) Normal, Urine Ketones Negative, Urine Occult Blood 150 H, Urine Nitrite Negative, Urine Bilirubin Negative, Urine Urobilinogen Normal, Ur Leukocyte Esterase 500 H, Urine RBC 5-10 SEEN, Urine WBC 50-100 SEEN, Ur Squamous Epith Cells 0 SEEN, Urine Bacteria 4+, Urine Mucus 0 SEEN 03/16/25 15:06: Magnesium 1.7, Troponin T Hi Sens 2 Hr 12 03/16/25 16:46: Troponin T Hi Sens 4Hr 14 03/16/25 17:46: Lactic Acid 1.8 03/17/25 06:04: WBC 12.3 H, RBC 3.25 L, Hgb 9.2 L, Hct 30.3 L, MCV 93.2, MCH 28.3, MCHC 30.4 L, RDW Std Deviation 49.9 H, RDW Coeff of Andrae 14.6, Plt Count 165, MPV 10.2, Immature Gran % (Auto) 0.700, Neut % (Auto) 87.5 H, Lymph % (Auto) 2.6 L, Lynn % (Auto) 1.4, Eos % (Auto) 7.6 H, Baso % (Auto) 0.2, Absolute Neuts (auto) 10.7 H, Absolute Lymphs (auto) 0.32 L, Nucleated RBC % 0, Differential Comment SCANNED, Sodium 147 H, Potassium 3.4 L, Chloride 113 H, Carbon Dioxide 21.7, Anion Gap 13, BUN 27 H, Creatinine 1.18, Estim Creat Clear Calc 46.84 L, Est GFR (MDRD) Non-Af 53 L, BUN/Creatinine Ratio 22.7 H, Glucose 112 H, Hemoglobin A1c 5.9 H, Calcium 8.9, Total Bilirubin 0.19, AST 17, ALT 9, A lkaline Phosphatase 134 H, Total Protein 5.7 L, Albumin 2.7 L, Globulin 3.0, Albumin/Globulin Ratio 0.9 Micro: Microbiology 03/16/25 14:40 Blood Culture (Wb) - Left Forearm Blood Culture - Preliminary 03/16/25 14:25 Blood Culture (Wb) - Left Hand Blood Culture - Preliminary 03/16/25 12:53 Mucosa - Nose SARS-CoV-2, Influenza & RSV (PCR) - Final Radiography Diagnostic Testing: Radiology Impression Brain CT 03/16/25 12:48 IMPRESSION: 1. Motion artifact mildly limits evaluation. No CT evidence of acute intracranial hemorrhage, transcortical infarct, or significant mass effect. 2. Right frontal craniotomy and subjacent right frontal lobe encephalomalacia. 3. Chronic microvascular ischemic changes. Reading Location: [id number] Chest X-Ray 03/16/25 12:48 IMPRESSION: No Acute Findings. Reading [facility] 03/16/25 18:05 IMPRESSION: Nonobstructive gas pattern. No free air appreciated. Small calcific densities in the right upper abdomen may represent renal stones. Reading Location: [id number] Assessment & Plan Assessment/Plan (1) Sepsis: Sepsis Attestation Sepsis Alert: Yes Sepsis Attestation: Agree w/Sepsis Date exam was performed: 03/17/25 Time exam was performed: 07:15 Possible Source of Sepsis: Genitourinary Sepsis Organ Dysfunction Criteria Present: SBP < 90 mmHg or MAP < 65 mmHg, Lactic Acid > 2 mmol/L and New/Unexplained change in mental status Fluid Resuscitation Fluid Resuscitation ordered: Lesser volume fluid bolus ordered Amount of fluid ordered: 2,000 Reason for lesser fluid bolus:: Other Sepsis Note Date exam was performed: 03/17/25 Time exam was performed: 09:28 Sepsis Attestation: Sepsis re-evaluation was performed Response to fluids: Non Fluid responsive hypotension and Vasopressors started (pending ICU transfer) Charges/Coding Visit Charges Inpatient E&M: 48156 [facility] Hosp L3
--- NOTE | 2025-03-17 07:27 | CT_ITS ---
PROCEDURE: ABDOMEN/PELVIS WITHOUT CONT 03/17/2025 REASON FOR EXAM: UTI WITH SEPSIS TECHNIQUE: Procedure Code: CTABDPEL Modality: CT Procedure: ABDOMEN/PELVIS WITHOUT CONT Noncontrast technique limits evaluation of the abdominal and pelvic viscera. Coronal and Sagittal reconstruction series were provided. One or more dose reduction techniques were used (e.g., Automated exposure control, adjustment of the mA and/or kV according to patient size, use of iterative reconstruction technique). RADIATION DOSE SUMMARY: CTDlvol: 16.04 mGy DLP: 821.64 mGycm COMPARISON: KUB dated 03/16/2025 FINDINGS: Lung bases: Small amount of pleural fluid and adjacent parenchymal consolidation in the right lower lobe. Liver: Normal-size and attenuation. No masses. No biliary ductal dilatation. Gallbladder: Surgically absent. Spleen: Normal in size and attenuation.. Pancreas: No masses or ductal dilatation. Adrenals: No nodules are gland thickening. Kidneys: A left pelvic kidney. Multiple calcifications in the right kidney. Suspect obstructing calculus at the right ureteropelvic junction, axial image 91 measuring 0.9 x 0.7 cm. Moderate right hydronephrosis. Right perinephric fat stranding. Large staghorn calculus involving the pelvic left kidney. A few other smaller calcifications are noted in the left kidney largest measuring 1.1 times 0.65 cm, coronal image 44. Bladder: Marked thickening of the urinary bladder wall measuring approximately 0.7 cm. Reproductive Organs: Uterus surgically absent. Bowel: No evidence of obstruction. No bowel lesions. Appendix: Unremarkable. Lymph nodes: No suspicious lymphadenopathy. Vasculature: Atherosclerotic calcific disease of the aorto iliac arteries. Peritoneum / Retroperitoneum: No masses, free air, or free fluid.. Surgical clips in the pelvis. Anterior abdominal wall: Unremarkable. Bones: A left hip arthroplasty. Suspicion of Schmorl's node formation in the superior endplate of L3. CT/Abdomen/Pelvis without Cont IMPRESSION: 1. Small amount of pleural fluid and parenchymal consolidation, right lower lo be. 2. Status post cholecystectomy and hysterectomy. 3. Left pelvic kidney with staghorn calculus and multiple scattered calcificat ions. 4. Right hydronephrosis and nephrolithiasis. Obstructing calculus at the righ t ureteral pelvic junction. 5. Thickening of the urinary bladder wall concerning for cystitis. 6. Left hip arthroplasty. 7. Other nonacute findings detailed above. Reading Location: [place] [address]
[2025-03-17] MEDS: 0.9% Normal Saline (1000mL) 1,000 ML 999 ML IV (07:35)
[2025-03-17] MEDS: Piperacil/Tazobactam 3.375 GM in 0.9% Normal Saline (50mL MB+) 50 ML IV ×2 (08:02→13:32)
--- NOTE | 2025-03-17 08:34 | NURSING ---
pt transported to and from CT on telemonitor with this nurse and legal billing specialist. pt remains alert makes eye contact and tracks. pt will not noted to appear nonverbal.
--- NOTE | 2025-03-17 09:56 | NURSING ---
pt transferred to icu by primary RN and [employer] reseller on telemonitor.
--- NOTE | 2025-03-17 09:59 | NURSING ---
daughter gaston notified of transferred to icu8. states she is at work but will have to phone call on her incase update needs to be given. she did mention she wishes for her mother not to return to the same ecf. encouraged daughter to talk to social and human services assistant as well as physician when called regarding POC. no further questions or concerns verbalized.
--- NOTE | 2025-03-17 10:19 | CON.PCM.CC_ITS ---
Assessment & Plan Assessment/Plan (1) Sepsis: PLAN: Plan RECOMMENDATIONS: 1. Continue Levophed to maintain a mean arterial pressure at or above 65 mmHg. 2. Continue empiric antimicrobials. 3. Given renal calculi and evidence of hydronephrosis, recommend transfer to tertiary care facility, given lack of urology coverage. 4. Continue appropriate DVT prophylaxis. IMPRESSIONS: 1. Gram-negative septic shock The patient presented with a complicated UTI in the setting of renal calculi and hydronephrosis, complicated by fluid refractory hypotension, requiring vasopressor support. Preliminary blood and urine cultures are demonstrating growth of gram-negative rods. The patient will be continued on empiric antimicrobial therapy. Levophed will be continued to maintain mean arterial pressure at or above 65 mmHg. Unfortunately, we do not have urology coverage today. Therefore, recommend transfer to a tertiary care facility. 2. Toxic metabolic encephalopathy Likely related to underlying UTI. Initial CT imaging of the head was unremarkable. Continue supportive care as outlined above. 3. History of chronic kidney disease/chronic hypoxemic respiratory failure/COPD/depression/hypertension/hyperlipidemia/obesity Complicates care, management, recovery and prognosis. Continue supportive measures as outlined above. CODE STATUS: DNR CCA without intubation TIME: 35 minutes of critical care time, independent of procedures, was spent addressing the patient's gram-negative septic shock, toxic metabolic encephalopathy, review of all data and collaboration with the care team. HPI Consult Data Date of Consult: 03/17/25 HPI Narrative Reason for Consultation: Gram-negative septic shock HPI Narrative: The patient is a 60-year-old female, with a history as outlined below, who presented to the emergency department on March 16 with increasing lethargy and fever. The patient has an apparent history of COPD of unclear severity along with chronic hypoxemic respiratory failure, chronic kidney disease and GERD. History pertinent to her hospitalization was obtained primarily via chart review, as the patient is to somnolent to provide any additional details. According to documentation, the patient was [facility] and [facility], prompting her transfer to the emergency department for evaluation. On presentation to the emergency department, the patient was noted to be afebrile but was mildly tachycardic. She was otherwise hemodynamically stable at presentation. Initial laboratory evaluation revealed a white blood cell count of 21,000. Chemistry profile was notable for a creatinine of 1.29 with a lactate of 2.2. Urine analysis was positive for leukocyte esterase and 4+ urine bacteria. CT head revealed no acute intracranial abnormalities. Chest x-ray demonstrated no acute cardiopulmonary process. KUB initially demonstrated small calcific densities potentially claims customer service representative of renal stones. The patient initially received supplemental IV fluids and was placed on antimicrobial therapy. On the morning of March 17, a CT abdomen/pelvis was obtained, which demonstrated a left sided staghorn calculus along with right-sided hydronephrosis and a right ureteropelvic junction obstructing calculus. Ultimately, over the course of the morning, the patient became progressively hypotensive, despite sepsis related fluid resuscitation and was transferred to the medical intensive care unit to be started on vasopressor support. In addition to the aforementioned, it was determined that our institution did not have any urology coverage available. Therefore, the decision was made to proceed with the initiation of a transfer to a tertiary care facility. At the present time, blood cultures are demonstrating growth of Enterococcus with urine culture demonstrating growth of a gram-negative whitley. [facility], [facility] Medical History (Updated 03/17/25 @ 07:[address] Chel Manley DO) Obesity Fe deficiency anemia Chronic anemia CKD (chronic kidney disease), stage II COPD (chronic obstructive pulmonary disease) Tobacco use Chronic hypoxic respiratory failure, on home oxygen therapy Irritable bowel syndrome (~05/16/24) Hyperlipidemia, unspecified (~03/25/24) Other chronic pain (~03/25/24) Gastro-esophageal reflux disease with esophagitis (~03/25/24) Unspecified osteoarthritis, unspecified site (~03/25/24) Other seizures (~03/25/24) Essential (primary) hypertension (~03/25/24) Cervicalgia (~03/25/24) Major depressive disorder, recurrent, unspecified (~03/25/24) Unspecified sequelae of cerebral infarction (~03/25/24) Home Medications ?Medication ?Instructions ?Recorded ?Last Taken ?Type aspirin 325 mg tablet (Mariusz 325 mg PO DAILY sequelae of 03/16/25 03/16/25 History Aspirin) cerebral infarction atorvastatin 20 mg tablet 20 mg PO QHS cholesterol 03/15/25 History camphor 4 %-methyl salicylate 30 1 ea topical QHS for pain 03/16/25 03/15/25 History %-menthol 10 % topical gel carvedilol 3.125 mg tablet 3.125 mg PO BID 03/16/25 History cholecalciferol (vitamin D3) 50 50 mcg PO DAILY 03/16/25 History mcg (2,000 unit) capsule cranberry fruit 450 mg tablet 450 mg PO QDAY 03/16/25 03/16/25 History (cranberry) dicyclomine 20 mg tablet 20 mg PO TID IBS 03/16/25 History ferrous sulfate 325 mg (65 mg 325 mg PO BID anemia 03/16/25 History iron) tablet (Feosol) linaclotide 72 mcg capsule 72 mcg PO DAILY ibs 5 03/16/25 History (Linzess) melatonin 5 mg tablet 5 mg PO QHS insomnia 5 03/15/25 History omeprazole 40 mg capsule,delayed 40 mg PO DAILY gerd 1 05/17/24 03/16/25 History release sertraline 25 mg tablet 25 mg PO DAILY 03/16/2502/24 History sertraline 50 mg tablet 50 mg PO DAILY 03/16/2502/24 History tramadol 50 mg tablet 50 mg PO Q6H PRN CHRONIC LISA N 03/16/25 Unknown History Allergy/AdvReac Type Severity Reaction Status Date / Time Unable to Assess Allergy Verified 03/16/25 12:34 Family History (Updated 03/16/25 @ 19:[address] Mikayla Melgar MD) Mother Asthma Father Heart disease PAF (paroxysmal atrial fibrillation) Surgical History (Updated 03/16/25 @ 19:[address] Mikayla Melgar MD) S/P exploratory laparotomy History of neck surgery S/P hysterectomy History of craniotomy Social History (Updated 03/16/25 @ 19:[address] Mikayla Melgar MD) housing: senior living Smoking Status: Current every day smoker tobacco type: cigarettes Smoking packs per day: 0.25 Smoking cigarettes per day: 5.0 alcohol intake: never substance use type: does not use ROS Review of Systems ROS Unobtainable: due to mental status Physical Exam Const alert General Appearance: lethargic and ill appearing HEENT normocephalic and head/scalp atraumatic Eyes EOMs intact bilaterally, conjunctivae normal and no scleral icterus Neck supple General: trachea midline Chest inspection of chest normal Resp normal respiratory effort Auscultation: diminished lung sounds; Negative for rales, rhonchi or wheezes Cardio regular rate and regular rhythm GI normal to inspection, nondistended, normoactive bowel sounds Extremity no clubbing, cyanosis or edema Skin no rashes or lesions noted Neuro no focal motor deficits Psych Mood & Affect: flat affect Lab / Micro Data 03/17/25 06:04 03/17/25 06:04 Labs: Laboratory Results - last 24 hr 03/16/25 13:08: WBC 21.6 H, RBC 3.67 L, Hgb 10.6 L, Hct 33.3 L, MCV 90.7, MCH 28.9, MCHC 31.8 L, RDW Std Deviation 49.0 H, RDW Coeff of Andrae 14.6, Plt Count 234, MPV 9.4, Neut % (Auto) Not Reportable, Absolute Neuts (auto) 18.5 H, Absolute Lymphs (auto) 1.50, Total Counted 100, Neutrophils % (Manual) 86 H, Band Neutrophils % 3, Lymphocytes % (Manual) 7 L, Monocytes % (Manual) 3, M yelocytes % 1 H, Platelet Estimate ADEQUATE, RBC Morphology NORM C+C, Sodium 143, Potassium 3.2 L, Chloride 104, Carbon Dioxide 24.2, Anion Gap 15, BUN 28 H, Creatinine 1.29 H, Estim Creat Clear Calc 43.25 L, Est GFR (MDRD) Non-Af 47 L, B UN/Creatinine Ratio 21.9 H, Glucose 145 H, Lactic Acid 2.2 H*, Calcium 10.1, Total Bilirubin 0.31, AST 24, ALT 15, Alkaline Phosphatase 138 H, Troponin T High Sens 12, Total Protein 6.9, Albumin 3.3 L, Globulin 3.6, Albumin/Globulin Ratio 0.9 03/16/25 13:52: Urine Color Yellow, Urine Clarity Cloudy, Urine pH 8.0, Ur Specific [place] 1.010, Urine Protein 100 H, Urine Glucose (UA) Normal, Urine Ketones Negative, Urine Occult Blood 150 H, Urine Nitrite Negative, Urine Bilirubin Negative, Urine Urobilinogen Normal, Ur Leukocyte Esterase 500 H, Urine RBC 5-10 SEEN, Urine WBC 50-100 SEEN, Ur Squamous Epith Cells 0 SEEN, Urine Bacteria 4+, Urine Mucus 0 SEEN 03/16/25 15:06: Magnesium 1.7, Troponin T Hi Sens 2 Hr 12 03/16/25 16:46: Troponin T Hi Sens 4Hr 14 03/16/25 17:46: Lactic Acid 1.8 03/17/25 06:04: WBC 12.3 H, RBC 3.25 L, Hgb 9.2 L, Hct 30.3 L, MCV 93.2, MCH 28.3, MCHC 30.4 L, RDW Std Deviation 49.9 H, RDW Coeff of Andrae 14.6, Plt Count 165, MPV 10.2, Immature Gran % (Auto) 0.700, Neut % (Auto) 87.5 H, Lymph % (Auto) 2.6 L, [place] % (Auto) 1.4, Eos % (Auto) 7.6 H, Baso % (Auto) 0.2, Absolute Neuts (auto) 10.7 H, Absolute Lymphs (auto) 0.32 L, Nucleated RBC % 0, Differential Comment SCANNED, Sodium 147 H, Potassium 3.4 L, Chloride 113 H, Carbon Dioxide 21.7, Anion Gap 13, BUN 27 H, Creatinine 1.18, Estim Creat Clear Calc 46.84 L, Est GFR (MDRD) Non-Af 53 L, BUN/Creatinine Ratio 22.7 H, Glucose 112 H, Hemoglobin A1c 5.9 H, Calcium 8.9, Total Bilirubin 0.19, AST 17, ALT 9, A lkaline Phosphatase 134 H, Total Protein 5.7 L, Albumin 2.7 L, Globulin 3.0, Albumin/Globulin Ratio 0.9 Micro: Microbiology 03/16/25 14:25 Blood Culture (Wb) - Left Hand Blood Culture - Preliminary 03/16/25 14:40 Blood Culture (Wb) - Left Forearm Blood Culture - Preliminary 03/16/25 12:53 Mucosa - Nose SARS-CoV-2, Influenza & RSV (PCR) - Final Imaging Radiology Impression Brain CT 03/16/25 12:48 IMPRESSION: 1. Motion artifact mildly limits evaluation. No CT evidence of acute intracranial hemorrhage, transcortical infarct, or significant mass effect. 2. Right frontal craniotomy and subjacent right frontal lobe encephalomalacia. 3. Chronic microvascular ischemic changes. Reading Location: [facility] Chest X-Ray 03/16/25 12:48 IMPRESSION: No Acute Findings. [facility] KUB X-Ray 03/16/25 18:05 IMPRESSION: Nonobstructive gas pattern. No free air appreciated. Small calcific densities in the right upper abdomen may represent renal stones. Reading Location: [facility] Abdomen/Pelvis CT 03/17/25 07:27 IMPRESSION: 1. Small amount of pleural fluid and parenchymal consolidation, right lower lobe. 2. Status post cholecystectomy and hysterectomy. 3. Left pelvic kidney with staghorn calculus and multiple scattered calcifications. 4. Right hydronephrosis and nephrolithiasis. Obstructing calculus at the right ureteral pelvic junction. 5. Thickening of the urinary bladder wall concerning for cystitis. 6. Left hip arthroplasty. 7. Other nonacute findings detailed above. Reading Location: [id number] Charges/Coding Procedures Hospitalists Procedures: [id number] Critical Care 1st Hr
[2025-03-17] MEDS: Norepinephrine 8 MG in 0.9% Normal Saline (250mL Bag) 242 ML 9.4 MG CONT INF (10:53)
--- NOTE | 2025-03-17 11:25 | CASEMGMT ---
Tertiary Insurance review for hospitals In-network with [facility] Plan insurance if transfer is recommended is as follows: [facility], [facility], [place], [facility], [facility], [facility], , [place], [facility], and [place]. Cielo Estrella, Discharge Planning Asst.
[2025-03-17] MEDS: Pantoprazole Sodium 40 MG in 0.9% Normal Saline (100mL MB+) 100 ML 300 MG IV (11:33)
--- NOTE | 2025-03-17 12:54 | CASEMGMT ---
Advanced Directives HC POA rec'd from [facility] and placed on chart. Cielo Estrella DC Planning Asst.
--- NOTE | 2025-03-17 14:20 | DS.PCM_ITS ---
Providers Date of Admission: 03/16/25 Date of Discharge: 03/17/25 Primary Care Physician: Dr. Josi Garcia MD Consultations 03/17/25 10:14 Consult: Rasper Machine Operator / Pulmonary Medicine Routine Consulting Provider: Intensivists/Pulmonary Med Reason for Consult: Sepsis 2/2 UTI EMERGENT Consult: No MD Notified: Yes Date Notified: 03/17/25 Time Notified: 09:26 Method of Notification: Verbal Reason For Visit: ENCEPHALOPATHY, UTI Diagnosis Discharge Diagnosis (1) Sepsis: Status: Acute Code(s): A41.9 - Sepsis, unspecified organism Medications at Discharge Home Medications aspirin 325 mg tablet (Mariusz Aspirin) 325 mg PO DAILY sequelae of cerebral infarction 03/16/25 atorvastatin 20 mg tablet 20 mg PO QHS cholesterol 03/16/25 camphor 4 %-methyl salicylate 30 %-menthol 10 % topical gel 1 ea topical QHS for pain 03/16/25 carvedilol 3.125 mg tablet 3.125 mg PO BID 03/16/25 cholecalciferol (vitamin D3) 50 mcg (2,000 unit) capsule 50 mcg PO DAILY 03/16/25 cranberry fruit 450 mg tablet (cranberry) 450 mg PO QDAY 03/16/25 dicyclomine 20 mg tablet 20 mg PO TID IBS 03/16/25 ferrous sulfate 325 mg (65 mg iron) tablet (Feosol) 325 mg PO BID anemia 03/16/25 linaclotide 72 mcg capsule (Linzess) 72 mcg PO DAILY ibs 03/16/25 melatonin 5 mg tablet 5 mg PO QHS insomnia 03/16/25 omeprazole 40 mg capsule,delayed release 40 mg PO DAILY gerd 03/16/25 sertraline 25 mg tablet 25 mg PO DAILY 03/16/25 sertraline 50 mg tablet 50 mg PO DAILY 03/16/25 tramadol 50 mg tablet 50 mg PO Q6H PRN CHRONIC PAIN 03/16/25 Hospital Course Operations None Procedures PICC line placement (03/17/2025-patient was bacteremic at that time) and - (CT brain/chest x-ray/KUB/CT abdomen and pelvis) Summary of Care Provided Minutes Spent on Discharge: 45 Hospital Course: Ms. Nesbitt is a 60-year-old white female who presents emergency department [facility] on 03/17/2025 with a chief complaint of increased confusion and fever. She has a known past medical history of chronic hypoxic respiratory failure secondary to COPD and uses 2 L nasal cannula at baseline. She also has previous brain neoplasm status post craniectomy and currently was riding at [facility]. She was sent to the emergency department from the nursing facility for increased and worsening confusion, tachycardia, hypotension, and fever of 100.4. She remained on her baseline oxygen. Vital signs at the time of presentation showed temperature of 99, heart rate 103, blood pressure was 109/95, respiratory rate 16 and pulse ox was 97% on baseline 2 L nasal cannula. Her CBC showed marked leukocytosis with a white count of 21.6. She had a chronic stable anemia with a hemoglobin of 10.6. And a left shift. Chemistry showed hypokalemia with mildly worsening creatinine at 1.29, normal liver functions and initial troponin was 12. Lactic acid was 2.2. Urinalysis was consistent with infection. CT of the brain showed right frontal craniectomy with subadjacent right frontal lobe encephalomalacia as well as chronic microvascular ischemic changes. Chest x-ray was unremarkable. COVID/flu/RSV was negative. Urine and blood cultures were ordered in the emergency department and the patient was given 1 L IV fluids and IV Rocephin. Upon admission she was given 1 more liter bolus and through the night her blood cultures resulted positive for both a gram-negative whitley and a gram-positive cocci. Antibiotics were broadened to vancomycin and Zosyn. She developed persistent hypotension with maps hovering between 55 and 65. Given this finding, on the a.m. of 03/17/2025 she was given 1 more liter bolus with persistent blood pressure issue so she was transferred to the intensive care unit for gram-negative septic shock. Pressors were started with Levophed and improved on 5 mcg. PICC line was placed on 03/17/2025. With septic shock due to urinary source we obtained a CT of the abdomen pelvis and showed a chronic left-sided staghorn calculus along with a right sided obstructing calculus causing moderate hydronephrosis. Urology is not available here in house at this time so transfer was required for source control. Patient was accepted for transfer to [facility] and a bed became available on 03/17/2025. During her hospitalization here she was maintained on 5 mcg of Levophed and on IV antibiotics. Mental status was still impaired but her lactate resolved and her renal function improved. Her daughter who is POA was notified and is aware of pending transfer. Interestingly, she has 1 blood culture that shows Enterococcus and the other that shows gram-negative rods with identification pending and her urine culture shows gram-negative whitley with lactose statistical developer. Finalized cultures are currently pending. Discharge diagnoses: Septic shock secondary to complicated UTI with right sided hydronephrosis from nephrolithiasis Enterococcus faecalis bacteremia Gram-negative whitley bacteremia Gram-negative whitley UTI Lactic acidosis SHEBA Leukocytosis Hypokalemia Hypernatremia/hyperchloremia Left-sided staghorn calculus Hydronephrosis with right sided obstructing UPJ stone 0.9 x 0.7 cm Chronic anemia secondary to iron deficiency CKD stage II COPD Chronic hypoxic respiratory failure-2 L baseline Hyperlipidemia IBS GERD with history of esophagitis History of seizures History of stroke History of brain tumor Obesity Depression Physical Exam Const Negative for oriented x3, no limitations or healthy appearing Constitutional Narrative: Overweight, sleepy, upper middle-aged, white female, appears older than stated age, lying in bed, intermittently alert but does not interact appropriately or answer questions, not able to answer orientation questions, appears mildly restless General Appearance: well kempt and well developed Orientation / Consciousness: Negative for awake, oriented to person, oriented to place or oriented to time Exam Limitations: altered mental status Nutritional Appearance: overweight HEENT normocephalic and head/scalp atraumatic HEENT Narrative: Mucous membranes are slightly dry, dentition is poor, Mallampati is 2, no thrush Eyes Negative for conjunctivae normal Eyes Narrative: Mild conjunctival pallor bilaterally, no scleral icterus Neck supple Neck Narrative: Neck is short and thick, trachea midline Resp normal respiratory effort, no retractions, no use of accessory muscles and clear to auscultation bilaterally Resp Narrative: Diffusely diminished with no adventitious sounds, no signs of extremis on baseline oxygen Auscultation: Negative for crackles, rhonchi or wheezes Cardio regular rhythm, S1 normal heart sound, S2 normal heart sound, no murmurs, no rub, no gallops and no clicks Cardio Narrative: Mild tachycardia GI GI Narrative: Patient with scab which appears to be residual from a PEG tube and no signs of infection on her left side of her upper abdomen, tenderness in the right flank, mild distention noted but abdomen is soft and bowel sounds are normal active Skin No no rashes or lesions noted, No no wounds, no jaundice, no petechiae and no mottling Skin Narrative: Superficial wound on left hip and abdomen as noted above with no signs of infection or drainage, skin is mildly pale Neuro No oriented x3 Neuro Narrative: Limited exam due to mental status Speech: Negative for speech normal Psych Negative for affect normal Psych Narrative: Unable to assess due to mental status Weight / BMI Weight Weight: 73 kg Body Mass Index (BMI) 29.6 ABG / Lab / Microbiology Data 03/17/25 06:04 03/17/25 06:04 Laboratory: Laboratory Results - last 24 hr 03/16/25 15:06: Magnesium 1.7, Troponin T Hi Sens 2 Hr 12 03/16/25 16:46: Troponin T Hi Sens 4Hr 14 03/16/25 17:46: Lactic Acid 1.8 03/17/25 06:04: WBC 12.3 H, RBC 3.25 L, Hgb 9.2 L, Hct 30.3 L, MCV 93.2, MCH 28.3, MCHC 30.4 L, RDW Std Deviation 49.9 H, RDW Coeff of Andrae 14.6, Plt Count 165, MPV 10.2, Immature Gran % (Auto) 0.700, Neut % (Auto) 87.5 H, Lymph % (Auto) 2.6 L, [place] % (Auto) 1.4, Eos % (Auto) 7.6 H, Baso % (Auto) 0.2, Absolute Neuts (auto) 10.7 H, Absolute Lymphs (auto) 0.32 L, Nucleated RBC % 0, Differential Comment SCANNED, Sodium 147 H, Potassium 3.4 L, Chloride 113 H, Carbon Dioxide 21.7, Anion Gap 13, BUN 27 H, Creatinine 1.18, Estim Creat Clear Calc 46.84 L, Est GFR (MDRD) Non-Af 53 L, BUN/Creatinine Ratio 22.7 H, Glucose 112 H, Hemoglobin A1c 5.9 H, Calcium 8.9, Total Bilirubin 0.19, AST 17, ALT 9, A lkaline Phosphatase 134 H, Total Protein 5.7 L, Albumin 2.7 L, Globulin 3.0, Albumin/Globulin Ratio 0.9 03/17/25 10:17: Lactic Acid < 1.0 Microbiology: Microbiology 03/16/25 14:25 Blood Culture (Wb) - Left Hand Bacteria Detection (PCR) - Final Enterococcus faecalis 03/16/25 14:25 Blood Culture (Wb) - Left Hand Blood Culture - Preliminary 03/16/25 13:52 Urine, Random Urine Culture - Preliminary Gram negative whitley 03/16/25 14:40 Blood Culture (Wb) - Left Forearm Blood Culture - Preliminary 03/16/25 12:53 Mucosa - Nose SARS-CoV-2, Influenza & RSV (PCR) - Final Radiography Diagnostic Testing: Radiology Impression KUB X-Ray 03/16/25 18:05 IMPRESSION: Nonobstructive gas pattern. No free air appreciated. Small calcific densities in the right upper abdomen may represent renal stones. Reading Location: [facility] Abdomen/Pelvis CT 03/17/25 07:27 IMPRESSION: 1. Small amount of pleural fluid and parenchymal consolidation, right lower lobe. 2. Status post cholecystectomy and hysterectomy. 3. Left pelvic kidney with staghorn calculus and multiple scattered calcifications. 4. Right hydronephrosis and nephrolithiasis. Obstructing calculus at the right ureteral pelvic junction. 5. Thickening of the urinary bladder wall concerning for cystitis. 6. Left hip arthroplasty. 7. Other nonacute findings detailed above. Reading Location: [place] [address] D/C Instructions DC O2, CPAP, BIPAP Needs Home O2 Discharge instructions: Yes Type of respiratory needs?: Oxygen Oxygen frequency: Continuous Continuous oxygen liters per minute: 2 DC home with Oxygen: Yes Home O2 Review: I have reviewed the oxygen testing, and the patient qualifies for home oxygen equipment and portability. The patient is mobile in the home and the community. Patient's Goals Of Care - F/U Goals Reviewed Goals of care reviewed with patient: Unable to assess Meaningful Use Info Meaningful Use Meaningful Use Diagnoses (Choose all that apply): None applicable Discharge Plan Admission Admit Date/Time: 03/16/25 15:11 Primary Reason for Your Visit: Altered mental status/fever Attending Provider: Chel Manley Primary Care Provider: Josi Garcia Consulting Providers: Mikayla Melgar; Marco Prajapati; Gilberto Lai; Emory German; Chito Gómez; Luiz Villanueva; Ed Nieto; Hilary Cerda; Rodrigo Garcia; Micki Melissa; Moy Sanders; Selam Kohler; Fuentes Peñaloza; Dean Piedra; Michela Lamb; Vipin Paulino; Salinas Singletary; Azar Finnegan; Annetta Coello; Vidya Reed; Abdoulaye Gaffney; Aissatou Martin; Laurie Lebron; Olegario Jain; Jo Moulton; Carmella Tapia; Surinder Mccallum; Jay Pop; Jo Pinto; Winston Mccall; Ritesh Merrill; Jordan Garrett; Shawanda Pastor; Hesham Saldivar; Fernando Workman; Yuri Romero; Flakito Matthews; Karena Matamoros; Deepti Almonte; Yousuf Meredith; Jim Garcia; Quincy Verma; Irma Andrea; Shawn Moreno Discharge Orders/Prescriptions Prescriptions: No Action atorvastatin 20 mg tablet 20 mg PO QHS omeprazole 40 mg capsule,delayed release(DR/EC) 40 mg PO DAILY tramadol 50 mg tablet 50 mg PO Q6H PRN (Reason: CHRONIC PAIN) carvedilol 3.125 mg tablet 3.125 mg PO BID dicyclomine 20 mg tablet 20 mg PO TID sertraline 25 mg tablet 25 mg PO DAILY sertraline 50 mg tablet 50 mg PO DAILY Linzess 72 mcg capsule 72 mcg PO DAILY aspirin [Mariusz Aspirin] 325 mg tablet 325 mg PO DAILY cranberry 450 mg tablet 450 mg PO QDAY Rx Instructions: administer with a meal melatonin 5 mg tablet 5 mg PO QHS camphor-methyl salicyl-menthol 4-30-10 % gel 1 ea topical QHS Rx Instructions: apply to neck and left hip cholecalciferol (vitamin D3) 50 mcg (2,000 unit) capsule 50 mcg PO DAILY ferrous sulfate [Feosol] 325 mg (65 mg iron) tablet 325 mg PO BID Referrals / Follow Up: Josi Garcia MD [Primary Care Provider, Geriatrics] Disposition Disposition (needs filled in before D/C Order can be placed): Acute Care Hospital Charges/Coding Visit Charges Inpatient E&M: 15103 Disch Hosp >30min
--- NOTE | 2025-03-17 15:52 | CASEMGMT ---
Discharge Planning [facility] updated via [facility] that pt will transfer to [facility]. Cielo Estrella DC Planning Asst.
[2025-03-17] MEDS: Vancomycin HCl 500 MG in 0.9% Normal Saline (100mL Bag) 100 ML 100 MG IV (18:04)
--- NOTE | 2025-03-17 19:58 | NURSING ---
1942- nurse to nurse report called to Olivia RN @ [facility] by this RN
--- NOTE | 2025-03-17 20:20 | NURSING ---
2013- [facility] transport to bedside to transport patient to [facility]
--- NOTE | 2025-03-18 13:31 | CASEMGMT ---
Social Work- SW called pt sherrellr Lee Ann to follow up to ensure that she had connected with ARIEL at [facility] to discuss preferences for SNF on d/c. Lee Ann reports that ARIEL at [facility] is assisting and thanked ARIEL for follow up. ANNITA Araujo
== END 2025-03-17 20:42 | disposition short-term general hospital (02) | DRG 871 ==
LOC: ED 13:03 → MS3 15:45 → ICU 03-17 09:52
PROVIDERS: Admitting Provider Family Medicine; Emergency Provider Student in an Organized Health Care Education/Training Program; PCP Internal Medicine; Visit Provider Internal Medicine
DX: A41.81 Sepsis due to Enterococcus (principal); R65.21 Severe sepsis with septic shock; G92.8 Other toxic encephalopathy; G93.41 Metabolic encephalopathy; E87.20 Acidosis, unspecified; E87.0 Hyperosmolality and hypernatremia; J96.11 Chronic respiratory failure with hypoxia; I67.82 Cerebral ischemia; N17.9 Acute kidney failure, unspecified; N13.6 Pyonephrosis; D63.1 Anemia in chronic kidney disease; J44.9 Chronic obstructive pulmonary disease, unspecified; I12.9 Hypertensive chronic kidney disease with stage 1 through stage 4 chronic kidney disease, or unspecified chronic kidney disease; F32.9 Major depressive disorder, single episode, unspecified; E66.9 Obesity, unspecified; F17.210 Nicotine dependence, cigarettes, uncomplicated; D50.9 Iron deficiency anemia, unspecified; E87.6 Hypokalemia; E78.5 Hyperlipidemia, unspecified; N18.2 Chronic kidney disease, stage 2 (mild); F43.20 Adjustment disorder, unspecified; E87.8 Other disorders of electrolyte and fluid balance, not elsewhere classified; K58.9 Irritable bowel syndrome, unspecified; F32.A Depression, unspecified; K21.9 Gastro-esophageal reflux disease without esophagitis; Z51.5 Encounter for palliative care; Z66 Do not resuscitate; R73.9 Hyperglycemia, unspecified; Z90.710 Acquired absence of both cervix and uterus; G89.29 Other chronic pain; Z79.82 Long term (current) use of aspirin; Z86.73 Personal history of transient ischemic attack (TIA), and cerebral infarction without residual deficits; N20.0 Calculus of kidney; Z68.29 Body mass index [BMI] 29.0-29.9, adult
CPT/HCPCS: 36415; 70450; 71045; 74018; 74176; 80053; 81001; 83036; 83605; 83735; 84484; 85025; 87040; 87077; 87086; 87088; 87149; 87186; 87631; 93005; 99285; A4216